=== PATIENT | female | born 1995 | race African-American/Black ===

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

== ENCOUNTER 2017-01-07 09:19 | Emergency (ER) | payer MEDICAID ==
[2017-01-07] MEDS ORDERED: OXYCODONE-ACETAMINOPHEN 5-325 MG TABLET PO ONE (09:42)
--- NOTE | 2017-01-07 10:25 | RADIOLOGY REPORT (SQ) ---
EXAM DESCRIPTION: CHEST PA/LAT COMPLETED DATE/TIME: 01/07/2017 10:12 am REASON FOR STUDY: cough/sob COMPARISON: 12/31/2016 EXAM PARAMETERS: NUMBER OF VIEWS: two views TECHNIQUE: Digital Frontal and Lateral radiographic views of the chest acquired. RADIATION DOSE: NA LIMITATIONS: none FINDINGS: LUNGS AND PLEURA: No opacities, masses or pneumothorax. No pleural effusion. MEDIASTINUM AND HILAR STRUCTURES: No masses or contour abnormalities. HEART AND VASCULAR STRUCTURES: Heart normal size. No evidence for failure. BONES: No acute findings. HARDWARE: None in the chest. OTHER: No other significant finding. IMPRESSION: NO SIGNIFICANT RADIOGRAPHIC FINDING IN THE CHEST. TECHNICAL DOCUMENTATION: JOB ID: [id number] [employer]- All Rights Reserved
[2017-01-07 10:35] LABS: APPEARANCE,URINE CLEAR; BILIRUBIN,URINE NEGATIVE (NEGATIVE); GLUCOSE, URINE NEGATIVE (NEGATIVE); KETONES,URINE NEGATIVE (NEGATIVE); LEUKOCYTE ESTERASE,URINE NEGATIVE (NEGATIVE); NITRITE,URINE NEGATIVE (NEGATIVE); PROTEIN,URINE NEGATIVE (NEGATIVE); URINE SPECIFIC GRAVITY 1.011
[2017-01-07] MEDS ORDERED: NORMAL SALINE 1000 ML 1,000 ML IV ONE (11:10)
[2017-01-07 11:42] LABS: HEMATOCRIT 28.9 % (36.0-47.0); HEMOGLOBIN 10.5 g/dL (12.0-15.5); HGB HCT DIFFERENCE 2.6; MEAN CORPUSCULAR HEMOGLOBIN 36.2 pg (27.0-33.4); MEAN CORPUSCULAR HGB CONC 36.2 g/dL (32.0-36.0); MEAN CORPUSCULAR VOLUME 100 fl (80-97); RED CELL DISTRIBUTION WIDTH 15.9 % (11.5-14.0); WHITE BLOOD COUNT 14.6 10^3/uL (4.0-10.5)
[2017-01-07 11:50] LABS: ALANINE AMINOTRANSFERASE 23 U/L (5-35); ALBUMIN 4.7 g/dL (3.7-5.6); ALKALINE PHOSPHATASE 84 U/L (50-135); ANION GAP 14 (5-19); ASPARTATE AMINO TRANSFERASE 30 U/L (5-30); BILIRUBIN,DIRECT 1.7 mg/dL (0.0-0.4); BILIRUBIN,TOTAL 8.8 mg/dL (0.2-1.3); BLOOD UREA NITROGEN 7 mg/dL (7-20); CALCIUM 9.6 mg/dL (8.4-10.2); CARBON DIOXIDE 23 mmol/L (22-30); CHLORIDE 110 mmol/L (98-107); CREATININE RESULT 0.59 mg/dL (0.52-1.25); GLUCOSE 91 mg/dL (75-110); POTASSIUM 3.8 mmol/L (3.6-5.0); SODIUM 146.7 mmol/L (137-145); TOTAL PROTEIN 8.2 g/dL (6.3-8.2)
[2017-01-07 12:05] LABS: BASOPHILS % (MANUAL) 0 % (0-2); EOSINOPHILS % (MANUAL) 4 % (0-6); LYMPHOCYTES % (MANUAL) 20 % (13-45); NUCLEATED RED BLOOD CELLS 7 /100 WBC (0); TOTAL CELLS COUNTED 100
[2017-01-07 12:11] LABS: ANISOCYTOSIS SLIGHT; POIKILOCYTOSIS 2+; POLYCHROMASIA 1+; SCHISTOCYTES 2+; TARGET CELLS 2+
--- NOTE | 2017-01-07 12:24 | ER Document Report ---
ED General - General Chief Complaint: Sickle Cell Crisis Stated Complaint: POSSIBLE SICKLE CELL CRISIS Time Seen by Provider: 01/07/17 09:41 Mode of Arrival: Ambulatory Information source: Patient Notes: Patient has a history of sickle cell disease and commonly gets chest pain from the sickle cell. She presents with substernal chest pain stating that it feels like her usual sickle cell pain. She states she is currently out of her pain medications. She states she has had some mild shortness of breath but that "it is not bad". No significant cough or cold symptoms. No fevers. No problems with urination. No significant vomiting or diarrhea. She states the pain is moderate and constant. It is sharp. It is worse with movement or deep breath and better with rest. It does not radiate. TRAVEL OUTSIDE OF THE [place] IN LAST 30 DAYS: No - Related Data Allergies/Adverse Reactions: No Known Drug Allergies Allergy (Verified 12/31/16 19:59) jacob peppers Adverse Reaction (Severe, Uncoded 12/31/16 19:59) throat closes Past Medical History - Social History Smoking Status: Current Every Day Smoker Frequency of alcohol use: None Drug Abuse: None Family History: Reviewed & Not Pertinent Pulmonary Medical History: Reports: Hx Pneumonia Renal/ Medical History: Denies: Hx Peritoneal Dialysis Psychiatric Medical History: Reports: Hx Anxiety, Hx Depression Past Surgical History: Reports: Hx Cholecystectomy - 06/28/2015 - Immunizations Immunizations up to date: Yes Hx Diphtheria, Pertussis, Tetanus Vaccination: Yes Review of Systems - Review of Systems Constitutional: denies: Chills, Fever Cardiovascular: Chest pain, Dyspnea Respiratory: Hurts to breathe, Short of breath -: Yes All other systems reviewed and negative Physical Exam - Vital signs Vitals: Temp Pulse Resp BP Pulse Ox 98.9 F 84 16 105/54 L 93 01/07/17 09:32 01/07/17 09:32 01/07/17 09:32 01/07/17 09:32 01/07/17 09:32 Interpretation: Normal - General General appearance: Appears well, Alert - HEENT Head: Normocephalic, Atraumatic Eyes: Normal Pupils: PERRL - Respiratory Respiratory status: No respiratory distress Chest status: Nontender Breath sounds: Normal Chest palpation: Normal - Cardiovascular Rhythm: Regular Heart sounds: Normal auscultation Murmur: No - Abdominal Inspection: Normal Distension: No distension Bowel sounds: Normal Tenderness: Nontender Organomegaly: No organomegaly - Back Back: Normal, Nontender - Extremities General upper extremity: Normal inspection, Nontender, Normal color, Normal ROM , Normal temperature General lower extremity: Normal inspection, Nontender, Normal color, Normal ROM , Normal temperature, Normal weight bearing. No: Glen's sign - Neurological Neuro grossly intact: Yes Cognition: Normal Orientation: AAOx4 [place] Coma Scale Eye Opening: Spontaneous [place] Coma Scale Verbal: Oriented Sina Coma Scale Motor: Obeys Commands Sina Coma Scale Total: 15 Speech: Normal Motor strength normal: LUE, RUE, LLE, RLE Sensory: Normal - Psychological Associated symptoms: Normal affect, Normal mood - Skin Skin Temperature: Warm Skin Moisture: Dry Skin Color: Normal Course - Vital Signs Vital signs: Temp Pulse Resp BP Pulse Ox 98.9 F 84 16 105/54 L 93 01/07/17 09:32 01/07/17 09:32 01/07/17 09:32 01/07/17 09:32 01/07/17 09:32 - Laboratory Result Diagrams: 01/07/17 11:08 01/07/17 11:08 Laboratory results interpreted by me: 01/07/17 01/07/17 01/07/17 09:50 11:08 11:08 WBC 14.6 H RBC 2.90 L Hgb 10.5 L Hct 28.9 L MCV 100 H MCH 36.2 H MCHC 36.2 H RDW 15.9 H Abs Neuts (Manual) 9.5 H Abs Monocytes (Manual) 1.6 H Sodium 146.7 H Chloride 110 H Total Bilirubin 8.8 H Direct Bilirubin 1.7 H Urine Urobilinogen 4.0 H - Diagnostic Test Radiology reviewed: Image reviewed, Reports reviewed - Chest x-ray shows no evidence of acute pathology. White blood cell count is mildly elevated however this is consistent with previous white blood cell count values on previous visits. Discharge - Discharge Clinical Impression: Sickle cell pain crisis Condition: Stable Disposition: HOME, SELF-CARE Instructions: Sickle Cell Crisis ([facility]) Additional Instructions: Please follow-up with your physician that manages your sickle cell as soon as possible. Prescriptions: Oxycodone HCl/Acetaminophen [Percocet 5-325 mg Tablet] 1 - 2 tab PO Q4H PRN #15 tablet PRN Reason:
[2017-01-07] MEDS ORDERED: MORPHINE SULFATE 10 MG/ML INJ IV ONE (12:33)
[2017-01-07] MEDS ORDERED: DIPHENHYDRAMINE HCL 25 MG CAPSULE PO ONE (12:48)
[2017-01-07 14:13] VITALS: BP 99/60
== END 2017-01-07 13:31 | disposition home or self-care (01) ==
LOC: ER 09:19
DX: D57.00 Hb-SS disease with crisis, unspecified (principal); R07.9 Chest pain, unspecified; R06.02 Shortness of breath; F17.200 Nicotine dependence, unspecified, uncomplicated
CPT/HCPCS: 99284; 96361; 96374; 36415; 85025; 81025; 80053; 81001; 71020; J3490; J2270; J7030

== ENCOUNTER 2017-01-21 05:21 | Day surgery (SDC) | payer MEDICAID ==
--- NOTE | 2017-01-20 09:20 | RADIOLOGY REPORT (SQ) ---
EXAM DESCRIPTION: CHEST PA/LATERAL COMPLETED DATE/TIME: 01/20/2017 9:08 am REASON FOR STUDY: PRE-OP COMPARISON: Chest 09/26/2016 Two-view chest 01/07/2017 EXAM PARAMETERS: NUMBER OF VIEWS: two views TECHNIQUE: Digital Frontal and Lateral radiographic views of the chest acquired. RADIATION DOSE: NA LIMITATIONS: none FINDINGS: LUNGS AND PLEURA: No opacities, masses or pneumothorax. No pleural effusion. MEDIASTINUM AND HILAR STRUCTURES: No masses or contour abnormalities. HEART AND VASCULAR STRUCTURES: Heart normal size. No evidence for failure. BONES: No acute findings. HARDWARE: Clips right upper quadrant post cholecystectomy. OTHER: No other significant finding. IMPRESSION: NO SIGNIFICANT RADIOGRAPHIC FINDING IN THE CHEST. TECHNICAL DOCUMENTATION: JOB ID: [id number] [employer]- All Rights Reserved
[2017-01-20 10:13] LABS: HEMATOCRIT 30.6 % (36.0-47.0); HEMOGLOBIN 11.1 g/dL (12.0-15.5); HGB HCT DIFFERENCE 2.7; MEAN CORPUSCULAR HEMOGLOBIN 37.4 pg (27.0-33.4); MEAN CORPUSCULAR HGB CONC 36.3 g/dL (32.0-36.0); MEAN CORPUSCULAR VOLUME 103 fl (80-97); RED BLOOD COUNT 2.98 10^6/uL (3.72-5.28); RED CELL DISTRIBUTION WIDTH 14.6 % (11.5-14.0); WHITE BLOOD COUNT 13.3 10^3/uL (4.0-10.5)
[2017-01-20 10:40] LABS: ANION GAP 13 (5-19); BLOOD UREA NITROGEN 8 mg/dL (7-20); CARBON DIOXIDE 23 mmol/L (22-30); CHLORIDE 108 mmol/L (98-107); CREATININE RESULT 0.55 mg/dL (0.52-1.25); GLUCOSE 78 mg/dL (75-110); POTASSIUM 4.5 mmol/L (3.6-5.0); SODIUM 144.3 mmol/L (137-145)
[~2017-01-21 05:21] MED LIST: CEFAZOLIN 1 GM/D5W RTU 1 GM/50 ML RTUPB IV PRN; LACTATED RINGERS 1000 ML IV PRN; LIDOCAINE 0.5% INJ-PF (5 MG/ML) 50 ML SDV SUBCUT PRN
[2017-01-21] MEDS ORDERED: BUPIVACAINE HCL 0.25 % INJ/PF (2.5 MG/1 ML) 30 ML VIAL ONE (06:45)
[2017-01-21] MEDS ORDERED: BACITRACIN INJ 50,000 UNIT VIAL ONE (06:46)
[2017-01-21] MEDS ORDERED: LIDOCAINE 0.5% INJ-PF (5 MG/ML) 50 ML SDV ONE (06:46)
[2017-01-21] MEDS ORDERED: OXYCODONE-ACETAMINOPHEN 5-325 MG TABLET PO PRN ×2 (08:34)
[2017-01-21] MEDS ORDERED: FENTANYL CITRATE INJ/PF 100 MCG/2 ML AMPUL IV PRN ×3 (08:34)
[2017-01-21] MEDS ORDERED: PROMETHAZINE HCL INJ 25 MG/1 ML VIAL IV PRN ×2 (08:34)
[2017-01-21] MEDS ORDERED: DIPHENHYDRAMINE HCL 50 MG/ML VIAL IV PRN (08:34)
[2017-01-21] MEDS ORDERED: MEPERIDINE HCL/PF INJ 25 MG/1 ML DISP.SYRIN IV PRN (08:34)
[2017-01-21] MEDS ORDERED: FENTANYL CITRATE INJ/PF 100 MCG/2 ML AMPUL ONE (09:09)
[2017-01-21 10:43] VITALS: BP 104/57
--- NOTE | 2017-01-21 11:11 | PDOC DISCHARGE SUMMARY ---
Discharge Summary (SDC) - Discharge Final Diagnosis: #1 sickle cell disease with frequent crisis Date of Surgery: 01/21/17 Discharge Date: 01/21/17 Condition: Fair Forms: ASU Anesthesia D/C Instruction, Discharge POC-Surgical Service Treatment or Instructions: Return to physician as directed. Discharge home [after recovery per ASU criteria]. Diet ,as tolerated, when fully awake advance as tolerated. Activities within moderation encouraged. Follow up in my office by appointment in about [1 week]. Call for appointment. Leave wounds [covered], [keep clean and dry, until office visit in 1 week]. Hold of on school/work [until evaluation in office]. Meds per med rec. May shower [in 48 hrs], [try to keep operated area as dry as possible]. Prescriptions: Oxycodone HCl/Acetaminophen [Percocet 5-325 mg Tablet] 1 tab PO ASDIR PRN #15 tab PRN Reason: Referrals: KIMBER SHIRLEY MD [ACTIVE STAFF] - 01/29/17 8:15 am Discharge Diet: As Tolerated Respiratory Treatments at Home: Deep Breathing/Coughing Discharge Activity: Activity As Tolerated Home Care Assistance: None Needed Report the Following to Your Physician Immediately: Shortness of Breath, Nausea , Vomiting, Increase in Pain, Fever over 101 Degrees, Unusual Bleeding, Redness , Swelling, Warmth
--- NOTE | 2017-01-21 11:19 | Operative Report ---
Operative Report DATE OF SURGERY: 01/21/17 PREOPERATIVE DIAGNOSIS: Sickle cell disease with frequent crisis. POSTOPERATIVE DIAGNOSIS: Sickle cell disease with frequent crisis. Post insertion of Port-A-Cath. OPERATION: 1. Ultrasound evaluation of the right internal jugular vein. 2. Insertion of single-lumen Port-A-Cath via real-time ultrasound guidance in the right internal jugular vein. 3. Angiogram and interpretation. SURGEON: KIMBER SHAH RADIATION ONCOLOGY NURSE: JEANA FERNANDO ANESTHESIA: LMAC TISSUE REMOVED OR ALTERED: Not applicable. COMPLICATIONS: None ESTIMATED BLOOD LOSS: 5 mL. INTRAOPERATIVE FINDINGS: Of a satisfactory right internal jugular vein to support catheter. About 1.2 cm in diameter. Angiogram demonstrated smooth flow of contrast through the right atrium, ventricle and pulmonary outflow tract. PROCEDURE: After obtaining informed consent, the patient was taken to the [operating room] and positioned supine. The [right] neck and chest were prepared with chlorhexidine and draped out with sterile linen. After the " universal timeout ", in which it was verified that the patient continued to receive antibiotic, the procedure commenced. A steriley sheathed ultrasound probe was used to evaluate the [right] internal jugular vein. Local anesthesia was infiltrated adjacent to the probe. Access into the [right] internal jugular vein was obtained using a micropuncture needle, followed by micropuncture wire and then a micropuncture catheter. This was followed by introduction of a 0.035 guidewire the tip of which was placed down into the inferior vena cava . The port sites was marked , locally anesthetized and incision made. Dissection now proceeded to the deep subcutaneous subcutaneous tissues so that a pocket for the port was made. Meticulous hemostasis was secured and the catheter was tunneled between the 2 incisions. Proximally, the catheter was now positioned using a peel-away sheath. Distally the catheter was tailored to an appropriate length and then mated to the port using the contained fixating device. The port was now placed in the pocket and the catheter optimally positioned. The port was accessed with a Borden needle and an angiogram done under digital subtraction. The findings as dictated. With adequate and satisfactory positioning, both lumens of the chamber were irrigated with heparinized solution. The wounds were now closed using interrupted 3-0 PDS to the subcutaneous tissues and a continuous subcuticular suture of 4-0 Monocryl to the skin. These are reinforced with Steri-Strips over benzoin and then dressings applied. The first calender worker provided retraction, thus facilitating the operative view. Controlled bleeding. The first calender worker also followed the suturing, thus facilitating accurate suture placement. Sutured skin and applied dressings. Copies of the dictated operative report for Dr. Kimber Lange MD.
--- NOTE | 2017-01-21 11:32 | RADIOLOGY REPORT (SQ) ---
EXAM DESCRIPTION: FLUORO/CV PLACEMENT COMPLETED DATE/TIME: 01/21/2017 9:17 am REASON FOR STUDY: PORTACATH PLCMT RT SIDE ASSISTED WITH FLUORO IN OR D57.1 SICKLE-CELL DISEASE WITH OUT CRISIS COMPARISON: Two-view chest 01/20/2017 FLUOROSCOPY TIME: 1 minutes 8 digital radiographic images saved to PACS. TECHNIQUE: Intra-operative images acquired during surgical procedure to evaluate progress. NUMBER OF IMAGES: Cine fluoroscopic images. LIMITATIONS: None. FINDINGS: Intra procedural imaging and fluoro during placement of a right-sided permanent central li ne with the tip in the superior vena cava. Please see the operative report IMPRESSION: Intra procedural imaging and fluoro COMMENT: Quality ID [id number]: Final reports for procedures using fluoroscopy that document radiation exp osure indices, or exposure time and number of fluorographic images (if radiation exposure indices are not available) Please consult full operative report of the attending physician for description of the procedure. TECHNICAL DOCUMENTATION: JOB ID: [id number] [employer]- All Rights Reserved
== END 2017-01-21 10:40 | disposition home or self-care (01) ==
LOC: OROUT 05:21
PROVIDERS: ATTEND Surgery
PROC: 05HM33Z Insertion of Infusion Device into Right Internal Jugular Vein, Percutaneous Approach (ICD-10-PCS; principal; 2017-01-21 07:30)
DX: D57.00 Hb-SS disease with crisis, unspecified (principal); F17.210 Nicotine dependence, cigarettes, uncomplicated; Z79.899 Other long term (current) drug therapy; Z88.5 Allergy status to narcotic agent
CPT/HCPCS: 36561; 36415; 85027; 81025; 80048; 71020; 77001; C1752; C1788; Q9967; J3490 ×2; J0690; J3010; S0020; J1642; 532

== ENCOUNTER 2017-01-26 19:33 | Emergency (ER) | payer MEDICAID ==
[2017-01-26] MEDS ORDERED: OXYCODONE HCL IR 5 MG TABLET PO ONE (20:08)
--- NOTE | 2017-01-26 20:16 | ER Document Report ---
ED Neck/Back Problem - General Chief Complaint: Neck Pain < 24hrs old Stated Complaint: NECK PAIN Time Seen by Provider: 01/26/17 19:56 Mode of Arrival: Ambulatory Information source: Patient Notes: Patient presents complaining of right-sided neck pain for the past 2 days. Patient states that she recently had a Port-A-Cath placed to her right anterior chest area 5 days ago. Patient denies any trauma to the area. Patient does complain of swelling with tenderness to the right lower neck area. Patient denies any fever. She denies any chest pain or dyspnea. Patient states she does take pain medication for pain due to her sickle cell disease although recently lost a bottle of her pain medicine and has not had any pain medicine for the past 2 days. TRAVEL OUTSIDE OF THE [place] IN LAST 30 DAYS: No - HPI Patient complains to provider of: Pain, Neck Onset: Other - 2 days Onset: Gradual Timing: Still present Quality of pain: Achy Pain Level: 4 Recent injury: No Associated symptoms: denies: Chest pain, Chills, Fever Exacerbated by: Movement of neck Relieved by: Nothing Similar symptoms previously: No Recently seen / treated by doctor: Yes - Related Data Allergies/Adverse Reactions: morphine Adverse Reaction (Severe, Verified 01/16/17 09:48) RASH,SWELLING jacob peppers Adverse Reaction (Severe, Uncoded 12/31/16 19:59) throat closes Past Medical History - General Information source: Patient - Social History Smoking Status: Current Every Day Smoker Frequency of alcohol use: None Drug Abuse: None Occupation: none Lives with: Family Family History: Reviewed & Not Pertinent Patient has suicidal ideation: No Patient has homicidal ideation: No - Medical History Medical History: Other - Sickle cell disease - Past Medical History Cardiac Medical History: Denies: Hx Coronary Artery Disease, Hx Heart Attack, Hx Hypertension Pulmonary Medical History: Reports: Hx Pneumonia Denies: Hx Asthma, Hx Bronchitis, Hx COPD Neurological Medical History: Denies: Hx Cerebrovascular Accident, Hx Seizures Renal/ Medical History: Denies: Hx Peritoneal Dialysis Musculoskeltal Medical History: Denies Hx Arthritis Psychiatric Medical History: Reports: Hx Anxiety, Hx Depression Past Surgical History: Reports: Hx Cholecystectomy - 06/28/2015, Hx Vascular Surgery - Immunizations Immunizations up to date: Yes Hx Diphtheria, Pertussis, Tetanus Vaccination: Yes Review of Systems - Review of Systems Constitutional: No symptoms reported. denies: Fever EENT: No symptoms reported Cardiovascular: No symptoms reported. denies: Chest pain, Lightheaded Respiratory: No symptoms reported. denies: Cough, Short of breath Gastrointestinal: No symptoms reported Genitourinary: No symptoms reported Female Genitourinary: No symptoms reported Musculoskeletal: Neck pain Skin: No symptoms reported Hematologic/Lymphatic: No symptoms reported Neurological/Psychological: No symptoms reported Physical Exam - Vital signs Vitals: Temp Pulse Resp BP Pulse Ox 98.7 F 107 H 16 122/68 97 01/26/17 19:36 01/26/17 19:36 01/26/17 19:36 01/26/17 19:36 01/26/17 19:36 - General General appearance: Appears well, Alert In distress: None - HEENT Head: Normocephalic, Atraumatic Eyes: Normal Nasal: Normal Mouth/Lips: Normal Mucous membranes: Normal Pharynx: Normal. No: Exudate, Tonsillar hypertrophy, Uvular edema Neck: Other - Tenderness, swelling right lower neck, right supraclavicular area just superior of incisional site Steri-Strips. No: Lymphadenopathy - Respiratory Respiratory status: No respiratory distress Chest status: Nontender Breath sounds: Normal. No: Rales, Rhonchi, Stridor, Wheezing Chest palpation: Normal - Cardiovascular Rhythm: Tachycardia Heart sounds: S1 appreciated, S2 appreciated Murmur: No Pulses: Normal: Radial - Back Back: Normal, Nontender. No: CVA tenderness - Extremities General upper extremity: Normal inspection, Normal ROM General lower extremity: Normal inspection, Normal ROM - Neurological Neuro grossly intact: Yes Cognition: Normal Orientation: AAOx4 [place] Coma Scale Eye Opening: Spontaneous Sina Coma Scale Verbal: Oriented [place] Coma Scale Motor: Obeys Commands Sina Coma Scale Total: 15 - Psychological Associated symptoms: Normal affect, Normal mood - Skin Skin Temperature: Warm Skin Moisture: Dry Skin Color: Normal Course - Re-evaluation Re-evalutation: 01/26/17 20:[address] Isaac who advises u/s of neck and consultation with dr Shirley 01/26/17 20:14 Review of controlled substance database performed 01/27/17 00:40 Doppler study performed, call was placed to concrete boom pump operator for consultation with Dr. Shirley. Ultrasound Tester to attempt to contact Dr Shirley. 01/27/17 01:06 Dr Montesinos to bedside for examination, discussed preliminary report from doppler tech. Dr Montesinos advises placing pt on lovenox twice a day for 3 days and having pt f/u with dr Agarwal tomorrow for a recheck. 01/27/17 01:16 Dr Montesinos called after viewing pt's doppler study. Advises placing pt on lovenox twice a day with a prescription for dosing for tomorrow. Advises having pt f/u with dr agarwal and dr shirley tomorrow for further management. consulted with dr isaac who agrees with this plan of care. Controlled substance database was reviewed. Dr. Isaac does not advise discharging patient home on any narcotic medications at this time. 01/27/17 01:37 Attempted to obtain a baseline Hemoccult test, patient refused. Discussed reasoning for ordering the test and risks of the anticoagulation medication that is been recommended. Patient insistent that she does not have any history of rectal bleeding or dark colored stools and does not want a digital rectal exam performed. RN at bedside during this conversation. Patient agrees to sign refusal of treatment form. - Vital Signs Vital signs: Temp Pulse Resp BP Pulse Ox 98.7 F 107 H 16 122/68 97 01/26/17 19:36 01/26/17 19:36 01/26/17 19:36 01/26/17 19:36 01/26/17 19:36 - Laboratory Result Diagrams: 01/27/17 00:15 01/27/17 00:15 Laboratory results interpreted by me: 01/27/17 01/27/17 00:15 00:15 WBC 17.3 H RBC 2.67 L Hgb 9.8 L Hct 27.0 L MCV 101 H MCH 36.8 H MCHC 36.3 H RDW 14.7 H Absolute Neutrophils 11.6 H Absolute Monocytes 1.7 H Absolute Basophils 0.3 H Potassium 3.5 L BUN 6 L Glucose 112 H Total Bilirubin 5.2 H Direct Bilirubin 0.8 H ALT 39 H Labs- Entire Visit 01/27/17 01/27/17 01/27/17 00:15 00:15 00:15 WBC 17.3 H RBC 2.67 L Hgb 9.8 L Hct 27.0 L MCV 101 H MCH 36.8 H MCHC 36.3 H RDW 14.7 H Plt Count 440 Seg Neutrophils % 66.9 Lymphocytes % 18.4 Monocytes % 9.8 Eosinophils % 3.3 Basophils % 1.6 Absolute Neutrophils 11.6 H Absolute Lymphocytes 3.2 Absolute Monocytes 1.7 H Absolute Eosinophils 0.6 Absolute Basophils 0.3 H PT 13.6 INR 0.97 APTT 34.6 Sodium 143.5 Potassium 3.5 L Chloride 105 Carbon Dioxide 23 Anion Gap 16 BUN 6 L Creatinine 0.52 Est GFR ( Amer) > 60 Est GFR (Non-Af Amer) > 60 Glucose 112 H Calcium 9.7 Total Bilirubin 5.2 H Direct Bilirubin 0.8 H Indirect Bilirubin Not Reportable Neonat Total Bilirubin Not Reportable AST 30 ALT 39 H Alkaline Phosphatase 71 Total Protein 8.1 Albumin 4.7 Discharge - Discharge Clinical Impression: Internal jugular (IJ) vein thromboembolism, acute Qualifiers: Laterality: right Qualified Code(s): I82.C11 - Acute embolism and thrombosis of right internal jugular vein Condition: Stable Disposition: HOME, SELF-CARE Additional Instructions: Return immediately for any new or worsening symptoms Followup with Dr. Agarwal tomorrow for further evaluation as he will need to be prescribe you a different medication to manage your clot in your neck vein. Follow up with Dr Shirley, call his office tomorrow for an appointment Prescriptions: Enoxaparin Sodium [Lovenox Inj 60 Mg/0.6 Ml Disp.Syrin] 60 mg SUBCUT Q12 #2 disp.syrin Referrals: JOIE AGARWAL MD [Primary Care Provider] - Follow up tomorrow KIMBER SHIRLEY MD [ACTIVE STAFF] - Follow up tomorrow
[2017-01-27 00:30] LABS: PROTHROMBIN TIME 13.6 SEC (11.4-15.4)
[2017-01-27 00:31] LABS: PARTIAL THROMBOPLASTIN TIME 34.6 SEC (23.5-35.8)
[2017-01-27 00:37] LABS: ABSOLUTE BASOPHILS # (AUTO) 0.3 10^3/uL (0.0-0.2); ABSOLUTE EOSINOPHILS # (AUTO) 0.6 10^3/uL (0.0-0.6); ABSOLUTE LYMPHOCYTES (AUTO) 3.2 10^3/uL (0.5-4.7); ABSOLUTE MONOCYTES (AUTO) 1.7 10^3/uL (0.1-1.4); ABSOLUTE NEUT (AUTO) 11.6 10^3/uL (1.7-8.2); BASOPHILS % (AUTO) 1.6 % (0-2); EOSINOPHILS % (AUTO) 3.3 % (0-6); HEMOGLOBIN 9.8 g/dL (12.0-15.5); HGB HCT DIFFERENCE 2.4; LYMPHOCYTES % (AUTO) 18.4 % (13-45); MEAN CORPUSCULAR HEMOGLOBIN 36.8 pg (27.0-33.4); MEAN CORPUSCULAR HGB CONC 36.3 g/dL (32.0-36.0); MEAN CORPUSCULAR VOLUME 101 fl (80-97); MONOCYTES % (AUTO) 9.8 % (3-13); RED BLOOD COUNT 2.67 10^6/uL (3.72-5.28); RED CELL DISTRIBUTION WIDTH 14.7 % (11.5-14.0); SEGMENTED NEUTROPHILS % (AUTO) 66.9 % (42-78); WHITE BLOOD COUNT 17.3 10^3/uL (4.0-10.5)
[2017-01-27 00:40] LABS: BLOOD UREA NITROGEN 6 mg/dL (7-20); CALCIUM 9.7 mg/dL (8.4-10.2); CREATININE RESULT 0.52 mg/dL (0.52-1.25); GLUCOSE 112 mg/dL (75-110)
[2017-01-27 00:41] LABS: ALANINE AMINOTRANSFERASE 39 U/L (5-35); ALBUMIN 4.7 g/dL (3.7-5.6); ALKALINE PHOSPHATASE 71 U/L (50-135); ANION GAP 16 (5-19); ASPARTATE AMINO TRANSFERASE 30 U/L (5-30); BILIRUBIN,DIRECT 0.8 mg/dL (0.0-0.4); BILIRUBIN,TOTAL 5.2 mg/dL (0.2-1.3); CARBON DIOXIDE 23 mmol/L (22-30); CHLORIDE 105 mmol/L (98-107); POTASSIUM 3.5 mmol/L (3.6-5.0); SODIUM 143.5 mmol/L (137-145); TOTAL PROTEIN 8.1 g/dL (6.3-8.2)
[2017-01-27] MEDS ORDERED: ENOXAPARIN SODIUM INJ 60 MG/0.6 ML DISP.SYRIN SUBCUT SCH (01:15)
[2017-01-27] MEDS ORDERED: ENOXAPARIN SODIUM INJ 60 MG/0.6 ML DISP.SYRIN SUBCUT ONE (01:33)
[2017-01-27 01:59] VITALS: BP 107/54
--- NOTE | 2017-01-27 02:17 | CONSULTATION REPORT E ---
Consultation Report NAME: CASSANDRA MIDDLETON : 1995 AGE: 21Y DATE: 01/27/2017 TO: WAYNE MONTESINOS M.D. FROM: Vitaly TENA, Requesting physician, Bree Schilling REPORT OF CONSULTATION: Patient is a 21-year-old -[place] female, with history of sickle cell anemia, 6 days status post right internal jugular vein single lumen Infusaport catheter placement by Dr. Humberto Lange. The patient had the procedure as an outpatient, with uneventful immediate postoperative course. The patient presents to the emergency department this evening complaining of right neck pain and fullness. She was evaluated in the emergency department where she underwent a duplex venous study at approximately 9:30 on 01/26/2017, which showed, according to the tech, a clot in the right internal jugular vein. The emergency department staff was awaiting formal interpretation. Dr. Montesinos happened to be in the emergency department evaluating another patient, and this situation was brought to his attention. The patient was evaluated by Dr. Montesinos, and she was confirmed to have the findings as described above. A complete past medical and surgical history can be found in the History and Physical documented. PHYSICAL EXAM: GENERAL: Patient is in the emergency department. She is in no acute distress. VITAL SIGNS: Stable. NECK AND CHEST: Wall examined. Steri-Strips are in place in the right internal jugular vein catheter insertion site and in the right subclavian site. Single chamber port is in appropriate position. There is some tenderness along the course of the right internal jugular vein but no carter cellulitis or palpable cord that can be appreciated. The right upper extremity is grossly unremarkable. Remainder of the physical examination is unremarkable. IMAGING STUDIES: Independent interpretation of 3 views of the right internal jugular vein, both longitudinally and in cross-section demonstrate what appears to be space occupying density in the lumina of the right internal jugular vein, nearly complete, consistent with acute thrombus. IMPRESSION: Ultrasonographic findings highly suggestive of acute thrombus right internal jugular vein in recently placed right internal jugular vein single lumen Infusaport catheter in sickle cell patient. RECOMMENDATIONS: 1. I have discussed management strategies with the PA in the emergency department, as well as with the patient briefly. 2. At this hour, given her symptoms and ultrasonographic findings, I suggest we proceed with anticoagulation, starting with Lovenox 1 mg/kg subcutaneous b.i.d. for 3 days, and plan to start her on a Xa inhibitor of choice tomorrow. 3. We will set patient up with follow-up with Dr. Humberto Lange, Vascular Surgery who inserted the port-a-cath and/or Dr. Baum, patient's oncologist. DICTATING PHYSICIAN: WAYNE MONTESINOS M.D. [id number] [id number] ID: [id number] JOB#: [id number] ACCT: [id number] cc:WAYNE MONTESINOS M.D. > MTDD
--- NOTE | 2017-01-27 08:04 | XCELERA REPORT ---
[address] [address] Upper Extremity Venous Evaluation Name: CASSANDRA MIDDLETON Age: 21 yrs Gender: Female : 1995 Patient Status: Emergency Patient Location: ER Study Date: 01/26/2017 10:42 PM Procedure: Unilateral duplex scan of the right upper extremity veins was performed, including responses to compression and other maneuvers. Reason For Study: supraclav swelling after port insertion RUE Ordering Physician: CASSIUS MANTILLA Performed By: Elaina Rocha Right Side Venous Evaluation Abnormal vessel filling, non compressible without augmentation, no Colour flow in the Internal Jugular vein. Otherwise normal to the forearm veins. Interpretation Summary Positive for DVT in the Internal Jugular vein. : CASSIUS MANTILLA > Humberto Lange
== END 2017-01-27 01:59 | disposition home or self-care (01) ==
LOC: ER 19:33
DX: I82.C11 Acute embolism and thrombosis of right internal jugular vein (principal); M54.2 Cervicalgia; D57.1 Sickle-cell disease without crisis; Z98.890 Other specified postprocedural states; F17.200 Nicotine dependence, unspecified, uncomplicated
CPT/HCPCS: 99284; 96372; 36415; 85025; 85610; 85730; 80053; 93971 ×2; J1650; J3490

== ENCOUNTER 2017-02-18 22:33 | Emergency (ER) | payer MEDICAID ==
[2017-02-18] MEDS ORDERED: NORMAL SALINE 1000 ML 1,000 ML IV ONE (23:35)
[2017-02-18] MEDS ORDERED: HYDROMORPHONE HCL INJ/PF 2 MG/ML AMPULE IV ONE (23:35)
--- NOTE | 2017-02-18 23:55 | ER Document Report ---
ED General - General Chief Complaint: Back Pain Stated Complaint: BACK PAIN,CHEST PAIN Time Seen by Provider: 02/18/17 23:30 Notes: Patient is a 22-year-old female with a history of sickle cell disease. She presents with complaint of her her lower back. She says this is very typical of her sickle cell disease. She says she took Motrin at home. She is out of her oxycodone. She denies any fevers. No vomiting. She is followed by Dr. Riya pollard. No difficulty breathing. No chest pain. No abdominal pain. She does have previous history of acute chest syndrome. Said this has occurred once. She has had a cholecystectomy. She still has her spleen. No other complaints at this time. No trauma. TRAVEL OUTSIDE OF THE [place] IN LAST 30 DAYS: No - Related Data Allergies/Adverse Reactions: morphine Adverse Reaction (Severe, Verified 02/03/17 19:02) RASH,SWELLING jacob peppers Adverse Reaction (Severe, Uncoded 01/31/17 13:58) throat closes Past Medical History - Social History Smoking Status: Never Smoker Frequency of alcohol use: None Drug Abuse: None Family History: Other - scd Patient has suicidal ideation: No Patient has homicidal ideation: No - Past Medical History Cardiac Medical History: Denies: Hx Coronary Artery Disease, Hx Heart Attack, Hx Hypertension Pulmonary Medical History: Reports: Hx Pneumonia Denies: Hx Asthma, Hx Bronchitis, Hx COPD Neurological Medical History: Denies: Hx Cerebrovascular Accident, Hx Seizures Renal/ Medical History: Denies: Hx Peritoneal Dialysis Musculoskeltal Medical History: Denies Hx Arthritis Psychiatric Medical History: Reports: Hx Anxiety, Hx Depression Past Surgical History: Reports: Hx Cholecystectomy - 06/28/2015, Hx Vascular Surgery - port - Immunizations Immunizations up to date: Yes Hx Diphtheria, Pertussis, Tetanus Vaccination: Yes Review of Systems - Review of Systems Notes: My Normal Review Basic REVIEW OF SYSTEMS: CONSTITUTIONAL : Denies fever, chills, or sweats. Denies recent illness. EENT: Denies eye, ear, throat, or mouth pain or symptoms. Denies nasal or sinus congestion. CARDIOVASCULAR: Denies chest pain. RESPIRATORY: Denies cough, cold, or chest congestion. Denies shortness of breath, difficulty breathing, or wheezing. GASTROINTESTINAL: Denies abdominal pain. Denies nausea, vomiting, or diarrhea. Denies constipation. Last BM: GENITOURINARY: Denies difficulty urinating, painful urination, burning, frequency, or blood in urine. FEMALE GENITOURINARY: Denies vaginal bleeding, abnormal or irregular periods. LMP: MUSCULOSKELETAL: Low back pain SKIN: Denies rash or skin lesions. NEUROLOGICAL: Denies altered mental status or loss of consciousness. Denies headache. Denies weakness or paralysis or loss of use of either side. Denies problems with gait or speech. Denies sensory or motor loss. ALL OTHER SYSTEMS REVIEWED AND NEGATIVE. Physical Exam - Vital signs Vitals: Temp Pulse Resp BP Pulse Ox 98.9 F 71 16 93/52 L 97 02/18/17 23:11 02/18/17 23:11 02/18/17 23:11 02/18/17 23:11 02/18/17 23:11 - Notes Notes: General Appearance: Well nourished, alert, cooperative, no acute distress, no obvious discomfort. Vitals: reviewed, See vital signs table. Head: no swelling or tenderness to the head Eyes: PERRL, EOMI, Conjuctiva clear Mouth: No decreasd moisture Throat: No tonsillar inflammation, No airway obstruction, No lymphadenopathy Lungs: No wheezing, No rales, No rhonci, No accessory muscle use, good air exchange bilaterally. Heart: Normal rate, Regular rythm, No murmur, no rub Back: Some pain to palpation over the lower back mainly on the right side. Abdomen: Normal BS, soft, No rigidity, No abdominal tenderness, No guarding, no rebound Extremities: strength 5/5 in all extremities, good pulses in all extremities, no swelling or tenderness in the extremities, no edema. Skin: warm, dry, appropriate color, no rash Neuro: speech clear, oriented x 3, normal affect, responds appropriately to questions. Course - Re-evaluation Re-evalutation: 02/19/17 03:46 Patient says her pain is much improved. She looks well. Her vital signs are normal. She has no fevers. She has no signs of acute chest syndrome. Pain is only in her back. Urinalysis negative. Her hemoglobin is at her baseline. Her reticulocyte count is elevated as suspected. Her white blood cell count is at her normal chronic range. At this time I feel she is safe to be discharged home. Encouraged her return to ER medially if she has worsening pain, difficulty breathing, fevers, or she feels unwell. She is to follow-up with Dr. Baum. Patient agrees with plan will be discharged home. Dictation of this chart was performed using voice recognition software; therefore, there may be some unintended grammatical errors. - Vital Signs Vital signs: Temp Pulse Resp BP Pulse Ox 98.9 F 71 16 93/52 L 97 02/18/17 23:11 02/18/17 23:11 02/18/17 23:11 02/18/17 23:11 02/18/17 23:11 - Laboratory Result Diagrams: 02/19/17 00:00 02/19/17 00:00 Laboratory results interpreted by me: 02/19/17 02/19/17 00:00 00:00 WBC 17.5 H RBC 2.67 L Hgb 9.6 L Hct 26.0 L MCH 35.9 H MCHC 36.9 H RDW 15.4 H Eosinophils % (Manual) 8 H Abs Neuts (Manual) 10.2 H Abs Lymphs (Manual) 5.1 H Absolute Eos (Manual) 1.4 H Abs Basophils (Manual) 0.4 H Retic Count (auto) 6.93 H Absolute Retic 0.187 H Total Bilirubin 4.2 H Direct Bilirubin 1.0 H Discharge - Discharge Clinical Impression: Sickle cell crisis Condition: Good Disposition: HOME, SELF-CARE Additional Instructions: Sickle Cell Crisis You have "sickle cell crisis." Sickle cell disease is caused by abnormal hemoglobin. This hemoglobin can deform red blood cells into a sickle shape. These abnormal blood cells can block blood vessels. This causes the pain of sickle cell crisis. Sickle cell crisis can occur any time. But attacks are more likely with acute infection, dehydration, or altitude change. A crisis usually causes pain in the legs, back, abdomen, and chest. Sometimes the pain may ease and return later. The usual treatment is oxygen, pain medication, IV fluids, and treatment of infection. Attacks may take a couple of days to resolve. Return if the pain becomes more severe, or if there are new symptoms. His follow-up with Dr. Salas this week. Please call his office. Return to the ER if you have worsening pain, fevers, difficulty breathing, or feel unwell. Forms: Return to Work
[2017-02-19 00:29] LABS: HEMOGLOBIN 9.6 g/dL (12.0-15.5); HGB HCT DIFFERENCE 2.8; MEAN CORPUSCULAR HEMOGLOBIN 35.9 pg (27.0-33.4); MEAN CORPUSCULAR HGB CONC 36.9 g/dL (32.0-36.0); MEAN CORPUSCULAR VOLUME 97 fl (80-97); RED BLOOD COUNT 2.67 10^6/uL (3.72-5.28); RED CELL DISTRIBUTION WIDTH 15.4 % (11.5-14.0); WHITE BLOOD COUNT 17.5 10^3/uL (4.0-10.5)
[2017-02-19 00:36] LABS: ALBUMIN 4.2 g/dL (3.5-5.0); ANION GAP 13 (5-19); BLOOD UREA NITROGEN 9 mg/dL (7-20); CARBON DIOXIDE 24 mmol/L (22-30); CHLORIDE 107 mmol/L (98-107); CREATININE RESULT 0.59 mg/dL (0.52-1.25); GLUCOSE 90 mg/dL (75-110); POTASSIUM 3.7 mmol/L (3.6-5.0); SODIUM 144.4 mmol/L (137-145); TOTAL PROTEIN 7.3 g/dL (6.3-8.2)
[2017-02-19 00:47] LABS: ALANINE AMINOTRANSFERASE 28 U/L (9-52); ALKALINE PHOSPHATASE 65 U/L (38-126); ASPARTATE AMINO TRANSFERASE 23 U/L (14-36); BILIRUBIN,TOTAL 4.2 mg/dL (0.2-1.3); CALCIUM 9.3 mg/dL (8.4-10.2)
[2017-02-19 00:55] LABS: ANISOCYTOSIS SLIGHT; BASOPHILS % (MANUAL) 2 % (0-2); EOSINOPHILS % (MANUAL) 8 % (0-6); LYMPHOCYTES % (MANUAL) 29 % (13-45); NUCLEATED RED BLOOD CELLS 2 /100 WBC (0); POLYCHROMASIA 1+; TARGET CELLS 2+; TOTAL CELLS COUNTED 100; TOXIC VACUOLATION PRESENT
[2017-02-19 01:04] LABS: APPEARANCE,URINE CLEAR; BILIRUBIN,URINE NEGATIVE (NEGATIVE); GLUCOSE, URINE NEGATIVE (NEGATIVE); KETONES,URINE NEGATIVE (NEGATIVE); LEUKOCYTE ESTERASE,URINE NEGATIVE (NEGATIVE); NITRITE,URINE NEGATIVE (NEGATIVE); PROTEIN,URINE NEGATIVE (NEGATIVE); UROBILINOGEN,URINE NEGATIVE mg/dL (<2.0)
[2017-02-19] MEDS ORDERED: HYDROMORPHONE HCL INJ/PF 2 MG/ML AMPULE IV ONE (02:43)
[2017-02-19 04:23] VITALS: BP 97/59
== END 2017-02-19 04:23 | disposition home or self-care (01) ==
LOC: ER 22:33
DX: D57.00 Hb-SS disease with crisis, unspecified (principal); M54.9 Dorsalgia, unspecified; R07.9 Chest pain, unspecified; M54.5 Low back pain; Z90.49 Acquired absence of other specified parts of digestive tract
CPT/HCPCS: 36591; 96376; 99284; 96361; 96374; 36415; 85025; 81025; 85045; 80053; 81001; J1170; J7030

== ENCOUNTER 2017-02-21 07:17 | Emergency (ER) | payer MEDICAID ==
[2017-02-21] MEDS ORDERED: NORMAL SALINE 1000 ML 1,000 ML IV ONE ×2 (07:41→10:29)
[2017-02-21] MEDS ORDERED: HYDROMORPHONE HCL INJ/PF 2 MG/ML AMPULE IV ONE ×2 (07:42→10:28)
[2017-02-21] MEDS ORDERED: ONDANSETRON HCL INJ/PF 4 MG/2 ML SDV IV ONE (07:43)
--- NOTE | 2017-02-21 08:31 | ER Document Report ---
ED General - General Chief Complaint: Back Pain Stated Complaint: BACK PAIN Time Seen by Provider: 02/21/17 07:37 Mode of Arrival: Ambulatory Information source: Patient Notes: Patient is a 22-year-old black female comes to emergency room with complaint of back pain. Patient has sickle cell disease has been seen here multiple times over the past year for a sickle cell type crisis. Patient has different presentations each time that I could find but mostly low back pain is her primary area of discomfort. She states that the low back pain woke her up out of sleep this morning and she is in a 9 out of 10 type pain. She is states that she has been nauseated but has had no vomiting. TRAVEL OUTSIDE OF THE [place] IN LAST 30 DAYS: No - HPI Patient complains to provider of: Low back pain associated with sickle cell disease Onset: This morning Onset/Duration: Sudden, Worse Quality of pain: Sharp, Stabbing Pain Level: 4 Associated symptoms: Nausea Exacerbated by: Denies Relieved by: Denies Similar symptoms previously: Yes Recently seen / treated by doctor: Yes - Patient seen here in JanuaryJanuary 31 February 03 February 18 and toda - Related Data Allergies/Adverse Reactions: morphine Adverse Reaction (Severe, Verified 02/21/17 07:20) RASH,SWELLING jacob peppers Adverse Reaction (Severe, Uncoded 02/21/17 07:20) throat closes Home Medications: Current Home Medications Hydroxyurea [Hydroxyurea] 1 tab PO BID 02/21/17 [History] Past Medical History - General Information source: Patient - Social History Smoking Status: Current Every Day Smoker Cigarette use (# per day): Yes - 2-3 cigarettes per day Chew tobacco use (# tins/day): No Smoking Education Provided: Yes Frequency of alcohol use: Rare Drug Abuse: None Lives with: Family Family History: Reviewed & Not Pertinent, Other - Past Medical History Cardiac Medical History: Denies: Hx Coronary Artery Disease, Hx Heart Attack, Hx Hypertension Pulmonary Medical History: Reports: Hx Pneumonia Denies: Hx Asthma, Hx Bronchitis, Hx COPD Neurological Medical History: Denies: Hx Cerebrovascular Accident, Hx Seizures Renal/ Medical History: Denies: Hx Peritoneal Dialysis Musculoskeltal Medical History: Denies Hx Arthritis Psychiatric Medical History: Reports: Hx Anxiety, Hx Depression Past Surgical History: Reports: Hx Cholecystectomy - 06/28/2015, Hx Vascular Surgery - port - Immunizations Immunizations up to date: Yes Hx Diphtheria, Pertussis, Tetanus Vaccination: Yes Review of Systems - Review of Systems Constitutional: Weakness EENT: No symptoms reported Cardiovascular: No symptoms reported Respiratory: No symptoms reported Gastrointestinal: No symptoms reported Genitourinary: No symptoms reported Female Genitourinary: No symptoms reported Musculoskeletal: Back pain Skin: No symptoms reported Hematologic/Lymphatic: No symptoms reported Neurological/Psychological: No symptoms reported -: Yes All other systems reviewed and negative Physical Exam - Vital signs Vitals: Temp Pulse Resp BP Pulse Ox 98.4 F 102 H 18 111/54 L 99 02/21/17 07:23 02/21/17 07:23 02/21/17 07:23 02/21/17 07:23 02/21/17 07:23 Interpretation: Hypotensive, Tachycardic - General General appearance: Other - Obvious pain and discomfort. On entering the room patient is in position with tears in her eyes crying because of the pain. She indicates it is her low back is bothering her severely. Denies trauma. - HEENT Head: Atraumatic Sinus: Normal. No: Abnormal, Frontal, Mastoid, Maxillary, Redness, Swelling, Tenderness, Other Nasal: Normal Mouth/Lips: Normal Mucous membranes: Moist Pharynx: Normal. No: Blood in hypopharynx, Erythema, Exudate, Peritonsillar abscess, Post nasal drainage, Retropharyngeal abscess, Tonsillar hypertrophy, Uvular edema, Potential airway comprom., Other Neck: Normal - Respiratory Respiratory status: No respiratory distress Chest status: Nontender Breath sounds: Normal Chest palpation: Normal - Cardiovascular Rhythm: Tachycardia Heart sounds: Normal auscultation Murmur: No - Abdominal Inspection: Normal Distension: No distension Bowel sounds: Normal Tenderness: Nontender. No: Tender, McBurney's point, James's sign, Guarding, Rebound, Other Organomegaly: No organomegaly - Back Back: Tender, Other - Examination patient's low back area shows mild reproducible tenderness across the low back only. Patient has discomfort with movement at this time. Pain is constant and unrelenting. Patient has good DTRs in the lower extremities good vascular flow was measured by pulses distal dorsalis pedis is bilaterally are normal. Popliteal is +2 straight leg raises are bilaterally positive at about 25-30 at this time. - Extremities General upper extremity: Normal inspection General lower extremity: Normal inspection - Neurological Neuro grossly intact: Yes Cognition: Normal Orientation: AAOx4 [place] Coma Scale Eye Opening: Spontaneous [place] Coma Scale Verbal: Oriented [place] Coma Scale Motor: Obeys Commands [place] Coma Scale Total: 15 Speech: Normal - Skin Skin Temperature: Warm Skin Moisture: Dry Skin Color: Normal, [place] Course - Vital Signs Vital signs: Temp Pulse Resp BP Pulse Ox 98.0 F 89 18 105/64 100 02/21/17 12:04 02/21/17 12:04 02/21/17 12:04 02/21/17 12:04 02/21/17 12:04 - Laboratory Result Diagrams: 02/21/17 08:38 02/21/17 08:38 Laboratory results interpreted by me: 02/21/17 02/21/17 02/21/17 08:06 08:38 08:38 WBC 17.3 H RBC 2.70 L Hgb 9.5 L Hct 26.2 L MCH 35.3 H MCHC 36.4 H RDW 15.4 H Lymphocytes % (Manual) 11 L Eosinophils % (Manual) 8 H Abs Neuts (Manual) 13.5 H Absolute Eos (Manual) 1.4 H Retic Count (auto) 8.85 H Absolute Retic 0.239 H Chloride 109 H BUN 6 L Total Bilirubin 4.6 H Direct Bilirubin 0.7 H Urine Urobilinogen 2.0 H - Diagnostic Test Radiology reviewed: Reports reviewed - Transfer of Care Notes: 02/21/17 08:40 As stated patient has a history of sickle cell disease and has multiple times had sickle cell crisis. But most the time patient comes in for pain control and can be sent home with labs being mostly normal. She has a [facility] physician not sure of the name. They prescribed her Percocet 5 mg. Patient does state in our conversation that she needs to discuss her Percocet with her primary doctor secondary to the fact that I think she is kind of overusing because of the pain and discomfort. As stated this is her fourth presentation this month. Patient stay has been fairly extended and secondary to her discomfort and pain. Patient is gone through 2 L of fluid, 2 1 mg doses of Dilaudid IV and Zofran and Phenergan. I have discussed the case with Dr. Rouse and he agrees that if patient's pain level is down we can attempt to send her home. If she continues to have pain we could placed her an admission. I have been back again to reevaluate patient and is currently 12:28 p.m. and patient states she is feeling 75% better and would like to try going home rather than being admitted. Patient is upfront tells me she is out of her oral pain medications I will write her for some pain medication she tells me she is taking Percocet 5 mg but she is having to take double sometimes secondary to the pain so I am going to increase this to 7.5. She is not under a "contract" however she is being very careful about what she can and cannot do. So at this time patient is stable she has decreased pain she has had no shortness of breath no more vomiting and no other signs of cardiac problems. She also has no neurologic signs. So we are going to discharge her home. 02/21/17 12:26 Discharge - Discharge Clinical Impression: Sickle cell anemia without crisis Back pain Qualifiers: Back pain location: low back pain Chronicity: acute Back pain laterality: midline Sciatica presence: without sciatica Qualified Code(s): M54.5 - Low back pain Condition: Good Disposition: HOME, SELF-CARE Instructions: Low Back Pain ([facility]), Oral Narcotic Medication ([facility]), Sickle Cell Crisis ([facility]) Additional Instructions: Home and rest. Medications prescribed. As we discussed in writing for pain medication and nausea medication. If for any chance that you go home and the pain is not treated by the medication return to ER for recheck and possible admission. Prescriptions: Ketorolac Tromethamine [Toradol 10 mg Tablet] 10 mg PO Q6HP PRN #20 tablet PRN Reason: Oxycodone HCl/Acetaminophen [Percocet 7.5-325 mg Tablet] 1 each PO ASDIR PRN # 20 tablet PRN Reason: For Pain Promethazine HCl 25 mg PO Q4 #20 tablet
[2017-02-21 08:53] LABS: HEMATOCRIT 26.2 % (36.0-47.0); HEMOGLOBIN 9.5 g/dL (12.0-15.5); HGB HCT DIFFERENCE 2.3; MEAN CORPUSCULAR HEMOGLOBIN 35.3 pg (27.0-33.4); MEAN CORPUSCULAR HGB CONC 36.4 g/dL (32.0-36.0); MEAN CORPUSCULAR VOLUME 97 fl (80-97); RED CELL DISTRIBUTION WIDTH 15.4 % (11.5-14.0); WHITE BLOOD COUNT 17.3 10^3/uL (4.0-10.5)
[2017-02-21 09:00] LABS: ALANINE AMINOTRANSFERASE 25 U/L (9-52); ALBUMIN 3.9 g/dL (3.5-5.0); ALKALINE PHOSPHATASE 87 U/L (38-126); ANION GAP 12 (5-19); ASPARTATE AMINO TRANSFERASE 27 U/L (14-36); BILIRUBIN,DIRECT 0.7 mg/dL (0.0-0.4); BILIRUBIN,TOTAL 4.6 mg/dL (0.2-1.3); BLOOD UREA NITROGEN 6 mg/dL (7-20); CARBON DIOXIDE 24 mmol/L (22-30); CHLORIDE 109 mmol/L (98-107); CREATININE RESULT 0.57 mg/dL (0.52-1.25); GLUCOSE 95 mg/dL (75-110); POTASSIUM 4.1 mmol/L (3.6-5.0); SODIUM 144.7 mmol/L (137-145); TOTAL PROTEIN 6.7 g/dL (6.3-8.2)
[2017-02-21 09:23] LABS: BASOPHILS % (MANUAL) 0 % (0-2); EOSINOPHILS % (MANUAL) 8 % (0-6); LYMPHOCYTES % (MANUAL) 11 % (13-45); NUCLEATED RED BLOOD CELLS 5 /100 WBC (0); TOTAL CELLS COUNTED 100; TOXIC GRANULATION SLIGHT
[2017-02-21 09:24] LABS: HOWELL-JOLLY BODIES PRESENT; POIKILOCYTOSIS 3+; POLYCHROMASIA 2+; SCHISTOCYTES 2+; TARGET CELLS 1+; TOXIC VACUOLATION PRESENT
[2017-02-21 09:36] LABS: APPEARANCE,URINE SLIGHTLY-CLOUDY; BILIRUBIN,URINE NEGATIVE (NEGATIVE); GLUCOSE, URINE NEGATIVE (NEGATIVE); KETONES,URINE NEGATIVE (NEGATIVE); LEUKOCYTE ESTERASE,URINE NEGATIVE (NEGATIVE); NITRITE,URINE NEGATIVE (NEGATIVE); PROTEIN,URINE NEGATIVE (NEGATIVE)
[2017-02-21] MEDS ORDERED: KETOROLAC TROMETHAMINE INJ/PF 30 MG/1 ML SDV IV ONE (10:45)
[2017-02-21 12:05] VITALS: BP 105/64
[2017-02-21] MEDS ORDERED: HEPARIN SOD (PORCINE) 1,000 UNIT/ML 1 ML VIAL IV ONE (12:45)
== END 2017-02-21 13:47 | disposition home or self-care (01) ==
LOC: ER 07:17
DX: D57.1 Sickle-cell disease without crisis (principal); M54.5 Low back pain; R11.0 Nausea; R53.1 Weakness; F17.210 Nicotine dependence, cigarettes, uncomplicated; Z88.6 Allergy status to analgesic agent; Z90.49 Acquired absence of other specified parts of digestive tract
CPT/HCPCS: 36591; 96376; 99284; 96361; 96374; 96375; 36415; 85025; 81025; 85045; 80053; 81001; J1885; J1170; J2405; J7030

== ENCOUNTER 2017-03-07 16:46 | Emergency (ER) | payer MEDICAID ==
[2017-03-07] MEDS ORDERED: FENTANYL CITRATE INJ/PF 100 MCG/2 ML AMPUL IV ONE (18:44)
[2017-03-07] MEDS ORDERED: NORMAL SALINE 1000 ML 1,000 ML IV ONE ×2 (18:45→21:03)
--- NOTE | 2017-03-07 18:46 | ER Document Report ---
ED Medical Screen (RME) - General Chief Complaint: Back Pain Stated Complaint: BACK PAIN Time Seen by Provider: 03/07/17 18:39 Notes: 22-year-old female past medical history of sickle cell disease here with complaints of cough (nonproductive) chest pain and low back pain that started several days ago. She has tried taking oxycodone 5 mg with minimal relief. She has not missed any doses of her hydroxyurea or folic acid. She has a history of acute chest syndrome last year. EXAM Clear to auscultation bilaterally Regular rate and rhythm TRAVEL OUTSIDE OF THE [place] IN LAST 30 DAYS: No - Related Data Allergies/Adverse Reactions: morphine Adverse Reaction (Severe, Verified 03/07/17 16:47) RASH,SWELLING jacob peppers Adverse Reaction (Severe, Uncoded 03/07/17 16:47) throat closes Past Medical History - Social History Frequency of alcohol use: None Drug Abuse: None Family history: Reviewed & Not Pertinent, Other - Pt was adopted. Does not know family history - Past Medical History Cardiac Medical History: Denies: Hx Coronary Artery Disease, Hx Heart Attack, Hx Hypertension Pulmonary Medical History: Reports: Hx Pneumonia Denies: Hx Asthma, Hx Bronchitis, Hx COPD Neurological Medical History: Denies: Hx Cerebrovascular Accident, Hx Seizures Renal/ Medical History: Denies: Hx Peritoneal Dialysis Musculoskeltal Medical History: Denies Hx Arthritis Psychiatric Medical History: Reports: Hx Anxiety, Hx Depression Past Surgical History: Reports: Hx Cholecystectomy - 06/28/2015, Hx Vascular Surgery - port - Immunizations Immunizations up to date: Yes Hx Diphtheria, Pertussis, Tetanus Vaccination: Yes History of Influenza Vaccine for 12/2016 - 05/2017 Season: Yes Influenza Administration Date for 12/2016 - 05/2017 Season: 12/30/15 Physical Exam - Vital signs Vitals: Temp Pulse Resp BP Pulse Ox 98.4 F 87 14 108/52 L 97 03/07/17 17:09 03/07/17 17:09 03/07/17 17:09 03/07/17 17:09 03/07/17 17:09 Course - Vital Signs Vital signs: Temp Pulse Resp BP Pulse Ox 98.4 F 87 14 108/52 L 97 03/07/17 17:09 03/07/17 17:09 03/07/17 17:09 03/07/17 17:09 03/07/17 17:09
--- NOTE | 2017-03-07 19:19 | RADIOLOGY REPORT (SQ) ---
EXAM DESCRIPTION: CHEST PA/LAT COMPLETED DATE/TIME: 03/07/2017 7:08 pm REASON FOR STUDY: cough, CP in sickle cell pt; infiltrate? COMPARISON: 01/31/2017 EXAM PARAMETERS: NUMBER OF VIEWS: two views TECHNIQUE: Digital Frontal and Lateral radiographic views of the chest acquired. RADIATION DOSE: NA LIMITATIONS: none FINDINGS: LUNGS AND PLEURA: No opacities, masses or pneumothorax. No pleural effusion. MEDIASTINUM AND HILAR STRUCTURES: No masses or contour abnormalities. HEART AND VASCULAR STRUCTURES: Heart normal size. No evidence for failure. BONES: No acute findings. HARDWARE: Venous access catheter tip at the cavoatrial junction. OTHER: No other significant finding. IMPRESSION: NO SIGNIFICANT RADIOGRAPHIC FINDING IN THE CHEST. TECHNICAL DOCUMENTATION: JOB ID: [id number] [employer]- All Rights Reserved
[2017-03-07 19:46] LABS: ABSOLUTE BASOPHILS # (AUTO) 0.3 10^3/uL (0.0-0.2); ABSOLUTE LYMPHOCYTES (AUTO) 3.5 10^3/uL (0.5-4.7); ABSOLUTE NEUT (AUTO) 7.8 10^3/uL (1.7-8.2); BASOPHILS % (AUTO) 2.2 % (0-2); EOSINOPHILS % (AUTO) 7.3 % (0-6); HEMATOCRIT 25.8 % (36.0-47.0); HEMOGLOBIN 9.3 g/dL (12.0-15.5); HGB HCT DIFFERENCE 2.1; LYMPHOCYTES % (AUTO) 25.7 % (13-45); MEAN CORPUSCULAR HEMOGLOBIN 35.3 pg (27.0-33.4); MEAN CORPUSCULAR HGB CONC 36.1 g/dL (32.0-36.0); MEAN CORPUSCULAR VOLUME 98 fl (80-97); MONOCYTES % (AUTO) 7.3 % (3-13); RED BLOOD COUNT 2.64 10^6/uL (3.72-5.28); RED CELL DISTRIBUTION WIDTH 15.1 % (11.5-14.0); SEGMENTED NEUTROPHILS % (AUTO) 57.5 % (42-78); WHITE BLOOD COUNT 13.7 10^3/uL (4.0-10.5)
[2017-03-07 19:51] LABS: STAIN REACTIVITY CHECK ACCEPTABLE
[2017-03-07 20:02] LABS: ANION GAP 12 (5-19); BLOOD UREA NITROGEN 10 mg/dL (7-20); CALCIUM 9.2 mg/dL (8.4-10.2); CARBON DIOXIDE 23 mmol/L (22-30); CHLORIDE 107 mmol/L (98-107); CREATININE RESULT 0.54 mg/dL (0.52-1.25); GLUCOSE 85 mg/dL (75-110); SODIUM 142.4 mmol/L (137-145)
[2017-03-07] MEDS ORDERED: ONDANSETRON HCL INJ/PF 4 MG/2 ML SDV IV ONE (21:02)
[2017-03-07] MEDS ORDERED: LORAZEPAM INJ 2 MG/1 ML VIAL IV ONE (21:02)
[2017-03-07] MEDS ORDERED: HYDROMORPHONE HCL INJ/PF 2 MG/ML AMPULE IV ONE ×2 (21:02→22:48)
--- NOTE | 2017-03-07 21:10 | ER Document Report ---
ED General - General Chief Complaint: Back Pain Stated Complaint: BACK PAIN Time Seen by Provider: 03/07/17 18:39 Mode of Arrival: Ambulatory Information source: Patient TRAVEL OUTSIDE OF THE [place] IN LAST 30 DAYS: No - HPI Notes: 22-year-old female past medical history of sickle cell disease here with complaints of cough (nonproductive) chest pain and low back pain that started several days ago. She has tried taking oxycodone 5 mg with minimal relief. She has not missed any doses of her hydroxyurea or folic acid. She has a history of acute chest syndrome last year. The patient is currently on Xarelto related to a blood clot that formed around the right chest port that she had placed on 01/21/17. Patient reports the pain location and intensity is consistent with her previous sickle cell pain crises. The patient reports that she is not out of her medications at the current time. Patient denies any fever or chills. Patient reports no nausea or vomiting or dysuria. - Related Data Allergies/Adverse Reactions: morphine Adverse Reaction (Severe, Verified 03/07/17 16:47) RASH,SWELLING jacob peppers Adverse Reaction (Severe, Uncoded 03/07/17 16:47) throat closes Past Medical History - General Information source: Patient - Social History Smoking Status: Current Every Day Smoker Frequency of alcohol use: None Drug Abuse: None Family History: Reviewed & Not Pertinent, Other Patient has suicidal ideation: No Patient has homicidal ideation: No - Past Medical History Cardiac Medical History: Denies: Hx Coronary Artery Disease, Hx Heart Attack, Hx Hypertension Pulmonary Medical History: Reports: Hx Pneumonia Denies: Hx Asthma, Hx Bronchitis, Hx COPD Neurological Medical History: Denies: Hx Cerebrovascular Accident, Hx Seizures Renal/ Medical History: Denies: Hx Peritoneal Dialysis Musculoskeltal Medical History: Denies Hx Arthritis Psychiatric Medical History: Reports: Hx Anxiety, Hx Depression Past Surgical History: Reports: Hx Cholecystectomy - 06/28/2015, Hx Vascular Surgery - port - Immunizations Immunizations up to date: Yes Hx Diphtheria, Pertussis, Tetanus Vaccination: Yes Review of Systems - Review of Systems Notes: REVIEW OF SYSTEMS: CONSTITUTIONAL : Denies fever, chills, or sweats. Denies recent illness. EENT: Denies eye, ear, throat, or mouth pain or symptoms. Denies nasal or sinus congestion or discharge. Denies throat, tongue, or mouth swelling or difficulty swallowing. CARDIOVASCULAR: Denies chest pain. Denies palpitations or racing or irregular heart beat. Denies ankle edema. RESPIRATORY: Denies cough, cold, or chest congestion. Denies shortness of breath, difficulty breathing, or wheezing. GASTROINTESTINAL: Denies abdominal pain or distention. Denies nausea, vomiting , or diarrhea. Denies blood in vomitus, stools, or per rectum. Denies black, tarry stools. Denies constipation. GENITOURINARY: Denies difficulty urinating, painful urination, burning, frequency, blood in urine, or discharge. FEMALE GENITOURINARY: Denies vaginal bleeding, heavy or abnormal periods, irregular periods. Denies vaginal discharge or odor. MUSCULOSKELETAL: Denies neck pain or stiffness. Denies joint pain or swelling. SKIN: Denies rash, lesions or sores. HEMATOLOGIC : Denies easy bruising or bleeding. LYMPHATIC: Denies swollen, enlarged glands. NEUROLOGICAL: Denies confusion or altered mental status. Denies passing out or loss of consciousness. Denies dizziness or lightheadedness. Denies headache. Denies weakness or paralysis or loss of use of either side. Denies problems with gait or speech. Denies sensory loss, numbness, or tingling. Denies seizures. PSYCHIATRIC: Denies anxiety or stress. Denies depression, suicidal ideation, or homicidal ideation. ALL OTHER SYSTEMS REVIEWED AND NEGATIVE. Dictation was performed using [employer] voice recognition software Physical Exam - Vital signs Vitals: Temp Pulse Resp BP Pulse Ox 98.4 F 87 14 108/52 L 97 03/07/17 17:09 03/07/17 17:09 03/07/17 17:09 03/07/17 17:09 03/07/17 17:09 - Notes Notes: PHYSICAL EXAMINATION: GENERAL: Well-appearing, well-nourished and in no acute distress. HEAD: Atraumatic, normocephalic. EYES: Pupils equal round and reactive to light, extraocular movements intact, conjunctiva are normal. ENT: Nares patent, oropharynx clear without exudates. Moist mucous membranes. NECK: Normal range of motion, supple without lymphadenopathy LUNGS: Breath sounds clear to auscultation bilaterally and equal. No wheezes rales or rhonchi. HEART: Regular rate and rhythm without murmurs ABDOMEN: Soft, nontender, nondistended abdomen. No guarding, no rebound. No masses appreciated. Female : deferred Musculoskeletal: Normal range of motion, no pitting or edema. No cyanosis. Pain diffusely through the midline back and posterior rib cage, patient denies any trauma. There is no erythema or crepitance. NEUROLOGICAL: Cranial nerves grossly intact. Normal speech, normal gait. Normal sensory, motor exams PSYCH: Normal mood, normal affect. SKIN: Warm, Dry, normal turgor, no rashes or lesions noted. Course - Re-evaluation Re-evalutation: 03/08/17 01:24 Patient was given supplemental oxygen and 2 L normal saline bolus and Zofran and several rounds of pain medications including fentanyl, Dilaudid and Toradol before she had adequate relief. Vital signs were stable and she felt appropriate for discharge. No evidence for any worsening of the patient's chronic anemia. Patient's bilirubin of 5 is consistent with previous values consistent with her long-standing history of sickle cell pain disease and vaso- occlusive crisis. There is no evidence for renal failure, , urinary tract infection, pneumonia, pneumothorax, pulmonary embolus. Patient is compliant with her Xarelto by her report. 03/08/17 01:25 No suggestion for cardiac ischemia or acute SC. - Vital Signs Vital signs: Temp Pulse Resp BP Pulse Ox 97.6 F 80 16 90/40 L 98 03/07/17 22:21 03/07/17 22:21 03/07/17 22:21 03/07/17 22:21 03/07/17 22:21 - Laboratory Result Diagrams: 03/07/17 19:32 03/07/17 19:32 Laboratory results interpreted by me: 03/07/17 03/07/17 03/07/17 19:32 19:32 22:51 WBC 13.7 H RBC 2.64 L Hgb 9.3 L Hct 25.8 L MCV 98 H MCH 35.3 H MCHC 36.1 H RDW 15.1 H Eosinophils % 7.3 H Basophils % 2.2 H Absolute Eosinophils 1.0 H Absolute Basophils 0.3 H Retic Count (auto) 5.36 H Absolute Retic 0.142 H Total Bilirubin 5.1 H Direct Bilirubin 1.0 H AST 49 H Urine Urobilinogen 4.0 H - EKG Interpretation by Me EKG shows normal: Sinus rhythm Additional EKG results interpreted by me: 03/07/17 21:42 EKG as interpreted by me showed normal sinus rhythm heart rate of 64. There is no gross evidence for acute SC or ischemia identified. There is no significant change as compared to previous EKG reviewed from 01/01/17. Discharge - Discharge Clinical Impression: Sickle cell pain crisis Sickle cell anemia Qualifiers: Sickle-cell associated disorders: with unspecified crisis Qualified Code(s): D57.00 - Hb-SS disease with crisis, unspecified; D57.0 - Hb-SS disease with crisis Condition: Stable Disposition: HOME, SELF-CARE Instructions: Pain Medication Injection ([facility]) Additional Instructions: QUIT SMOKING, IT CAUSES SICKLE CELL PAIN CRISES AND BLOOD CLOTS!!! Forms: Smoking Cessation Education, Return to Work
[2017-03-07 21:37] LABS: PROTHROMBIN TIME 14.2 SEC (11.4-15.4)
[2017-03-07 21:42] LABS: ALANINE AMINOTRANSFERASE 22 U/L (9-52); ALBUMIN 4.2 g/dL (3.5-5.0); ALKALINE PHOSPHATASE 85 U/L (38-126); ASPARTATE AMINO TRANSFERASE 49 U/L (14-36); BILIRUBIN,TOTAL 5.1 mg/dL (0.2-1.3); LIPASE 74.7 U/L (23-300); TOTAL PROTEIN 7.5 g/dL (6.3-8.2)
--- NOTE | 2017-03-07 21:45 | EKG REPORT ---
SEVERITY:- NORMAL ECG - SINUS RHYTHM : Confirmed by: Nathan Lopez 07-Mar-2017 21:44:58
[2017-03-07 22:22] VITALS: BP 90/40
[2017-03-07] MEDS ORDERED: KETOROLAC TROMETHAMINE INJ/PF 30 MG/1 ML SDV IV ONE (22:48)
[2017-03-07 23:19] LABS: APPEARANCE,URINE CLEAR; BILIRUBIN,URINE NEGATIVE (NEGATIVE); GLUCOSE, URINE NEGATIVE (NEGATIVE); KETONES,URINE NEGATIVE (NEGATIVE); LEUKOCYTE ESTERASE,URINE NEGATIVE (NEGATIVE); NITRITE,URINE NEGATIVE (NEGATIVE); PROTEIN,URINE NEGATIVE (NEGATIVE)
[2017-03-08] MEDS ORDERED: HYDROMORPHONE HCL INJ/PF 2 MG/ML AMPULE IV ONE (00:21)
[2017-03-08] MEDS ORDERED: LORAZEPAM INJ 2 MG/1 ML VIAL IV ONE (00:21)
== END 2017-03-08 01:50 | disposition home or self-care (01) ==
LOC: ER 16:46
DX: D57.00 Hb-SS disease with crisis, unspecified (principal); M54.9 Dorsalgia, unspecified; R05 Cough; R07.9 Chest pain, unspecified; M54.5 Low back pain; Z79.899 Other long term (current) drug therapy; Z79.01 Long term (current) use of anticoagulants; F17.200 Nicotine dependence, unspecified, uncomplicated
CPT/HCPCS: 93005; 36591; 96376; 99284; 96361; 96374; 96375; 36415; 83690; 85025; 85610; 81025; 85045; 80076; 80048; 81001; 84484; 71020; 93010; J3010; J1885; J1170 ×2; J2060 ×2; J2405; J7030

== ENCOUNTER 2017-03-08 14:42 | Inpatient (IN) | payer MEDICAID ==
[2017-03-08] MEDS ORDERED: NORMAL SALINE 1000 ML 1,000 ML IV ONE ×3 (15:07→18:47)
[2017-03-08] MEDS ORDERED: HYDROMORPHONE HCL INJ/PF 2 MG/ML AMPULE IV ONE ×3 (15:07→18:29)
--- NOTE | 2017-03-08 15:10 | ER Document Report ---
ED Medical Screen (RME) - General Chief Complaint: Sickle Cell Crisis Stated Complaint: LOWER BACK PAIN/ CHEST PAIN Time Seen by Provider: 03/08/17 15:05 Mode of Arrival: Ambulatory Information source: Patient TRAVEL OUTSIDE OF THE [place] IN LAST 30 DAYS: No - HPI Patient complains to provider of: sickle cell crisis Onset: Other - pt was seen in ED last night for SC crisis and given IVF and pain meds. She was told to RTED if pain increased, which it did. - Related Data Allergies/Adverse Reactions: morphine Adverse Reaction (Severe, Verified 03/07/17 16:47) RASH,SWELLING jacob peppers Adverse Reaction (Severe, Uncoded 03/07/17 16:47) throat closes Past Medical History - Social History Chew tobacco use (# tins/day): No Frequency of alcohol use: None Drug Abuse: None Family history: Reviewed & Not Pertinent, Other - Pt was adopted. Does not know family history - Past Medical History Cardiac Medical History: Denies: Hx Coronary Artery Disease, Hx Heart Attack, Hx Hypertension Pulmonary Medical History: Reports: Hx Pneumonia Denies: Hx Asthma, Hx Bronchitis, Hx COPD Neurological Medical History: Denies: Hx Cerebrovascular Accident, Hx Seizures Renal/ Medical History: Denies: Hx Peritoneal Dialysis Musculoskeltal Medical History: Denies Hx Arthritis Psychiatric Medical History: Reports: Hx Anxiety, Hx Depression Past Surgical History: Reports: Hx Cholecystectomy - 06/28/2015, Hx Vascular Surgery - port - Immunizations Immunizations up to date: Yes Hx Diphtheria, Pertussis, Tetanus Vaccination: Yes History of Influenza Vaccine for 12/2016 - 05/2017 Season: Yes Influenza Administration Date for 12/2016 - 05/2017 Season: 12/30/15 Physical Exam - Vital signs Vitals: Temp Pulse Resp BP Pulse Ox 98.0 F 80 20 107/62 97 03/08/17 14:50 03/08/17 14:50 03/08/17 14:50 03/08/17 14:50 03/08/17 14:50 Course - Vital Signs Vital signs: Temp Pulse Resp BP Pulse Ox 98.0 F 80 20 107/62 97 03/08/17 14:50 03/08/17 14:50 03/08/17 14:50 03/08/17 14:50 03/08/17 14:50
[2017-03-08 15:39] LABS: APPEARANCE,URINE CLEAR; BILIRUBIN,URINE NEGATIVE (NEGATIVE); GLUCOSE, URINE NEGATIVE (NEGATIVE); KETONES,URINE NEGATIVE (NEGATIVE); LEUKOCYTE ESTERASE,URINE NEGATIVE (NEGATIVE); NITRITE,URINE NEGATIVE (NEGATIVE); PROTEIN,URINE NEGATIVE (NEGATIVE); URINE SPECIFIC GRAVITY 1.008; UROBILINOGEN,URINE NEGATIVE mg/dL (<2.0)
[2017-03-08 16:53] LABS: ALANINE AMINOTRANSFERASE 24 U/L (9-52); ALBUMIN 3.8 g/dL (3.5-5.0); ALKALINE PHOSPHATASE 59 U/L (38-126); ANION GAP 13 (5-19); ASPARTATE AMINO TRANSFERASE 27 U/L (14-36); BILIRUBIN,DIRECT 0.6 mg/dL (0.0-0.4); BILIRUBIN,TOTAL 4.9 mg/dL (0.2-1.3); BLOOD UREA NITROGEN 5 mg/dL (7-20); CALCIUM 9.1 mg/dL (8.4-10.2); CARBON DIOXIDE 22 mmol/L (22-30); CHLORIDE 107 mmol/L (98-107); GLUCOSE 75 mg/dL (75-110); POTASSIUM 4.1 mmol/L (3.6-5.0); SODIUM 141.9 mmol/L (137-145); TOTAL PROTEIN 6.6 g/dL (6.3-8.2)
[2017-03-08 16:56] LABS: ABSOLUTE BASOPHILS # (AUTO) 0.2 10^3/uL (0.0-0.2); ABSOLUTE EOSINOPHILS # (AUTO) 0.6 10^3/uL (0.0-0.6); ABSOLUTE LYMPHOCYTES (AUTO) 2.2 10^3/uL (0.5-4.7); ABSOLUTE MONOCYTES (AUTO) 1.2 10^3/uL (0.1-1.4); ABSOLUTE NEUT (AUTO) 11.1 10^3/uL (1.7-8.2); BASOPHILS % (AUTO) 1.4 % (0-2); EOSINOPHILS % (AUTO) 4.2 % (0-6); HEMATOCRIT 24.7 % (36.0-47.0); HEMOGLOBIN 9.1 g/dL (12.0-15.5); HGB HCT DIFFERENCE 2.6; LYMPHOCYTES % (AUTO) 14.5 % (13-45); MEAN CORPUSCULAR HEMOGLOBIN 35.8 pg (27.0-33.4); MEAN CORPUSCULAR HGB CONC 36.7 g/dL (32.0-36.0); MEAN CORPUSCULAR VOLUME 98 fl (80-97); RED BLOOD COUNT 2.53 10^6/uL (3.72-5.28); RED CELL DISTRIBUTION WIDTH 15.2 % (11.5-14.0); SEGMENTED NEUTROPHILS % (AUTO) 71.9 % (42-78); WHITE BLOOD COUNT 15.4 10^3/uL (4.0-10.5)
[2017-03-08 16:57] LABS: STAIN REACTIVITY CHECK ACCEPTABLE
[2017-03-08] MEDS ORDERED: DIPHENHYDRAMINE HCL 50 MG/ML VIAL IV ONE (17:07)
--- NOTE | 2017-03-08 17:15 | ER Document Report ---
ED General Pain - General Chief Complaint: Sickle Cell Crisis Stated Complaint: LOWER BACK PAIN/ CHEST PAIN Time Seen by Provider: 03/08/17 15:05 Mode of Arrival: Ambulatory Notes: Patient with sickle cell disease complaining of lower back pain week. She recalls no unusual activity or injury. Does think it may be related to the recent cold weather that we have begun to have this fall and winter. She was here last night for this same pain and advised to return if her symptoms had not improved today. She says her pain is now worse. Is located in the lumbar region of the back. Has had some symptoms of a cold, with some cough, but not producing any phlegm. Says she has pain under her diaphragm in the front. Has vomited a couple of times. No UTI symptoms. No fever. Current medications include oxycodone 5 mg every 6 hours as needed, hydroxyurea, folate, Xarelto. Patient is on the Xarelto because she developed a clot in her right neck when her port was placed in December. LMP 02/26. On no control. Cholecystectomy. TRAVEL OUTSIDE OF THE [place] IN LAST 30 DAYS: No - Related Data Allergies/Adverse Reactions: morphine Adverse Reaction (Severe, Verified 03/07/17 16:47) RASH,SWELLING jacob peppers Adverse Reaction (Severe, Uncoded 03/07/17 16:47) throat closes Past Medical History - General Information source: Patient - Social History Smoking Status: Current Some Day Smoker Chew tobacco use (# tins/day): No Frequency of alcohol use: None Drug Abuse: None Family History: Reviewed & Not Pertinent, Other Patient has suicidal ideation: No Patient has homicidal ideation: No Pulmonary Medical History: Reports: Hx Pneumonia Psychiatric Medical History: Reports: Hx Anxiety, Hx Depression Past Surgical History: Reports: Hx Cholecystectomy - 06/28/2015, Hx Vascular Surgery - port put in December, - Immunizations Immunizations up to date: Yes Hx Diphtheria, Pertussis, Tetanus Vaccination: Yes Review of Systems - Review of Systems Notes: REVIEW OF SYSTEMS: CONSTITUTIONAL : Denies fever. EENT: Denies eye, ear, nose or mouth or throat pain or other symptoms. CARDIOVASCULAR: Has had some chest pain, in the region of her diaphragm anteriorly. RESPIRATORY: Denies cough, chest congestion, or shortness of breath. GASTROINTESTINAL: Denies abdominal pain but has had nausea and vomiting, not diarrhea. GENITOURINARY: Denies difficulty or painful urinating, urinary frequency, blood in urine. MUSCULOSKELETAL: Denies neck pain. Denies any joint pain or swelling. SKIN: Denies rash or skin lesions. NEUROLOGICAL: Denies LOC or altered mental status. Denies headache. Denies sensory loss or motor deficits. ALL OTHER SYSTEMS REVIEWED AND NEGATIVE. Physical Exam - Vital signs Vitals: Temp Pulse Resp BP Pulse Ox 98.0 F 80 20 107/62 97 03/08/17 14:50 03/08/17 14:50 03/08/17 14:50 03/08/17 14:50 03/08/17 14:50 Interpretation: Normal - Notes Notes: PHYSICAL EXAMINATION: GENERAL: Well-appearing, in no acute distress. Vital signs are all normal. HEAD: Atraumatic, normocephalic. EYES: Pupils equal round and reactive to light, extraocular movements intact. ENT: oropharynx clear without exudates. Moist mucous membranes. NECK: Normal range of motion, supple. LUNGS: Breath sounds clear and equal bilaterally. No significant chest wall tenderness to palpation. HEART: Regular rate and rhythm without murmurs. ABDOMEN: Soft, nontender. No guarding or rebound. BACK: Tender across the paralumbar muscles bilaterally. EXTREMITIES: Normal range of motion without pain. Negative Homans bilaterally. NEUROLOGICAL: Normal speech, normal gait. Normal sensory, motor, and reflex exams. Awake, alert, and oriented x3. Cranial nerves normal. PSYCH: Normal mood, normal affect. SKIN: Warm, dry, no rashes. Course - Re-evaluation Re-evalutation: 03/08/17 18:37 Patient says that she has not had any relief from the Dilaudid 1 mg given twice IV. Lab work is the usual expected in her case. Her to reticulocyte count 4. White count slightly elevated. Urine does not look like any infection. Spoke with Dr. Baum, patient's doctor and oncologist, and he recommends admission. Spoke with Dr. Esqueda and he approved putting the patient in for a bed and I will talk with Dr. Simmons, the night hospitalist when he comes on duty after 7:00. 03/08/17 19:[address] Simmons who will admit the patient. - Vital Signs Vital signs: Temp Pulse Resp BP Pulse Ox 98.0 F 80 20 107/62 97 03/08/17 14:50 03/08/17 14:50 03/08/17 14:50 03/08/17 14:50 03/08/17 14:50 - Laboratory Result Diagrams: 03/08/17 16:14 03/08/17 16:14 Laboratory results interpreted by me: 03/08/17 03/08/17 16:14 16:14 WBC 15.4 H RBC 2.53 L Hgb 9.1 L Hct 24.7 L MCV 98 H MCH 35.8 H MCHC 36.7 H RDW 15.2 H Absolute Neutrophils 11.1 H Retic Count (auto) 4.42 H BUN 5 L Creatinine 0.50 L Total Bilirubin 4.9 H Direct Bilirubin 0.6 H Discharge - Discharge Clinical Impression: Sickle cell anemia with pain Condition: Stable Disposition: ADMITTED OBSERVATION Admitting Provider: Hospitalist Unit Admitted: Telemetry Referrals: JOIE BAUM MD [Primary Care Provider] - Follow up as needed
--- NOTE | 2017-03-08 19:08 | RADIOLOGY REPORT (SQ) ---
EXAM DESCRIPTION: CHEST PA/LAT COMPLETED DATE/TIME: 03/08/2017 6:58 pm REASON FOR STUDY: Sickle cell pain with chest pain COMPARISON: 03/07/2017 EXAM PARAMETERS: NUMBER OF VIEWS: two views TECHNIQUE: Digital Frontal and Lateral radiographic views of the chest acquired. RADIATION DOSE: NA LIMITATIONS: none FINDINGS: LUNGS AND PLEURA: No new opacities, masses or pneumothorax. No pleural effusion. MEDIASTINUM AND HILAR STRUCTURES: No masses or contour abnormalities. HEART AND VASCULAR STRUCTURES: Heart stable in size. No evidence for failure. BONES: No acute findings. Stable sequela to sickle cell disease. HARDWARE: Stable. OTHER: No other significant finding. IMPRESSION: NO ACUTE CARDIOPULMONARY PROCESS. NO SIGNIFICANT CHANGE FROM YESTERDAY. TECHNICAL DOCUMENTATION: JOB ID: [id number] All Rights Reserved
[2017-03-08] MEDS ORDERED: PROMETHAZINE HCL 25 MG TABLET PO PRN (19:17)
[2017-03-08] MEDS ORDERED: ACETAMINOPHEN 325 MG TABLET PO PRN (19:17)
[2017-03-08] MEDS ORDERED: IPRATROPIUM/ALBUTEROL 0.5-2.5 MG/3 ML AMPUL NEB PRN (19:17)
[2017-03-08] MEDS: NORMAL SALINE 1000 ML 1,000 ML IV SCH ×2 (21:30→23:43)
[2017-03-08] MEDS: HYDROMORPHONE HCL INJ/PF 2 MG/ML AMPULE IV PRN (22:40)
[2017-03-08] MEDS: DIPHENHYDRAMINE HCL 50 MG/ML VIAL IV PRN (22:40)
[2017-03-08] MEDS: MAGNESIUM HYDROXIDE SUSP 30 ML UDCUP PO SCH (22:40)
[2017-03-08] MEDS: IPRATROPIUM/ALBUTEROL 0.5-2.5 MG/3 ML AMPUL NEB SCH (23:43)
[2017-03-09] MEDS: HYDROMORPHONE HCL INJ/PF 2 MG/ML AMPULE IV PRN ×7 (01:38→23:24)
[2017-03-09] MEDS: NORMAL SALINE 1000 ML 1,000 ML IV SCH (03:30)
[2017-03-09] MEDS: DIPHENHYDRAMINE HCL 50 MG/ML VIAL IV PRN (06:16)
[2017-03-09 06:34] LABS: HEMATOCRIT 20.6 % (36.0-47.0); HGB HCT DIFFERENCE 1.6; MEAN CORPUSCULAR HEMOGLOBIN 35.4 pg (27.0-33.4); MEAN CORPUSCULAR HGB CONC 36.1 g/dL (32.0-36.0); MEAN CORPUSCULAR VOLUME 98 fl (80-97); RED BLOOD COUNT 2.11 10^6/uL (3.72-5.28); RED CELL DISTRIBUTION WIDTH 15.4 % (11.5-14.0); WHITE BLOOD COUNT 13.9 10^3/uL (4.0-10.5)
[2017-03-09 06:53] LABS: HEMOGLOBIN 7.4 g/dL (12.0-15.5)
[2017-03-09 06:58] LABS: ANION GAP 8 (5-19); BLOOD UREA NITROGEN 3 mg/dL (7-20); CALCIUM 8.2 mg/dL (8.4-10.2); CARBON DIOXIDE 23 mmol/L (22-30); CHLORIDE 111 mmol/L (98-107); CREATININE RESULT 0.47 mg/dL (0.52-1.25); GLUCOSE 82 mg/dL (75-110); POTASSIUM 3.9 mmol/L (3.6-5.0)
[2017-03-09 07:00] LABS: BAND NEUTROPHILS % (MANUAL) 1 % (3-5); BASOPHILS % (MANUAL) 1 % (0-2); EOSINOPHILS % (MANUAL) 7 % (0-6); LYMPHOCYTES % (MANUAL) 24 % (13-45); NUCLEATED RED BLOOD CELLS 4 /100 WBC (0); TOTAL CELLS COUNTED 100
[2017-03-09 07:06] LABS: ANISOCYTOSIS SLIGHT; HYPOCHROMASIA 1+; POLYCHROMASIA SLIGHT
[2017-03-09 07:07] LABS: POIKILOCYTOSIS 2+; SCHISTOCYTES 1+; TARGET CELLS 2+
--- NOTE | 2017-03-09 07:13 | PDOC H&P ---
History of Present Illness Admission Date/PCP: 03/08/17 19:29 JOIE MOREIRA MD Patient complains of: Diffuse back pain History of Present Illness: CASSANDRA MIDDLETON is a 22 year old female with history of sickle cell disease and tobacco dependence. She presents after 7 days of diffuse back, shoulder and leg pain consistent with previous episodes of sickle cell pain crisis. She denies fever chills nausea vomiting diaphoresis. No rhinorrhea, sore throat, cough or dysuria. She describes exposure to cold weather. She denies any recent change in medications. In the emergency room she is found to have a hemoglobin of 9.1 but a reticulocyte count of 4.4. She is referred to the hospitalist for admission. Past Medical History Cardiac Medical History: Denies: Coronary Artery Disease, Myocardial Infarction, Hypertension Pulmonary Medical History: Reports: Pneumonia Denies: Asthma, Bronchitis, Chronic Obstructive Pulmonary Disease (COPD) Neurological Medical History: Denies: Seizures Musculoskeltal Medical History: Denies: Arthritis Psychiatric Medical History: Reports: Depression Hematology: Reports: Anemia, Sickle Cell Disease Past Surgical History Past Surgical History: Reports: Cholecystectomy - 06/28/2015, Vascular Surgery - port put in December, Social History Information Source: Patient Smoking Status: Current Some Day Smoker Frequency of Alcohol Use: None Hx Recreational Drug Use: No Drugs: None Hx Prescription Drug Abuse: No - Advance Directive Resuscitation Status: Full Code Family History Family History: Hypertension, Other - Sickle cell Parental Family History Reviewed: Yes Children Family History Reviewed: Yes Sibling(s) Family History Reviewed.: Yes Medication/Allergy Home Medications: Rivaroxaban [Xarelto] 15 mg PO Q12 01/31/17 Hydroxyurea [Hydroxyurea] 1 tab PO BID 02/21/17 Oxycodone HCl/Acetaminophen [Percocet 7.5-325 mg Tablet] 1 each PO ASDIR PRN # 20 tablet 02/21/17 Allergies/Adverse Reactions: morphine Adverse Reaction (Severe, Verified 03/07/17 16:47) RASH,SWELLING jacob peppers Adverse Reaction (Severe, Uncoded 03/07/17 16:47) throat closes Review of Systems Constitutional: PRESENT: as per HPI, fatigue. ABSENT: chills, fever(s), headache(s), weight gain, weight loss Eyes: ABSENT: visual disturbances Ears: ABSENT: hearing changes Cardiovascular: ABSENT: chest pain, dyspnea on exertion, edema, orthropnea, palpitations Respiratory: ABSENT: cough, hemoptysis, sputum Gastrointestinal: ABSENT: abdominal pain, constipation, diarrhea, hematemesis, hematochezia, nausea, vomiting Genitourinary: ABSENT: dysuria, hematuria Musculoskeletal: PRESENT: back pain. ABSENT: joint swelling Integumentary: ABSENT: rash, wounds Neurological: ABSENT: abnormal gait, abnormal speech, confusion, dizziness, focal weakness, syncope Psychiatric: ABSENT: anxiety, depression, homidical ideation, suicidal ideation Endocrine: ABSENT: cold intolerance, heat intolerance, polydipsia, polyuria Hematologic/Lymphatic: ABSENT: easy bleeding, easy bruising Physical Exam Vital Signs: Temp Pulse Resp BP Pulse Ox 97.7 F 90 15 101/54 L 96 03/09/17 03:23 03/09/17 03:23 03/09/17 03:23 03/09/17 03:23 03/09/17 03:23 Intake & Output 03/07/17 03/08/17 03/09/17 11:59 11:59 11:59 Intake Total 2883 Output Total 1300 Balance 1583 Weight 59.3 kg General appearance: PRESENT: cooperative, mild distress, well-developed, well- nourished Head exam: PRESENT: atraumatic, normocephalic Eye exam: PRESENT: conjunctiva pink, EOMI, PERRLA. ABSENT: scleral icterus Ear exam: PRESENT: normal external ear exam Mouth exam: PRESENT: moist, tongue midline Neck exam: ABSENT: carotid bruit, JVD, lymphadenopathy, thyromegaly Respiratory exam: PRESENT: clear to auscultation samaria. ABSENT: rales, rhonchi, wheezes Cardiovascular exam: PRESENT: RRR. ABSENT: diastolic murmur, rubs, systolic murmur Pulses: PRESENT: normal dorsalis pedis pul Vascular exam: PRESENT: normal capillary refill GI/Abdominal exam: PRESENT: normal bowel sounds, soft. ABSENT: distended, guarding, mass, organolmegaly, rebound, tenderness Rectal exam: PRESENT: deferred Extremities exam: PRESENT: full ROM. ABSENT: calf tenderness, clubbing, pedal edema Neurological exam: PRESENT: alert, awake, oriented to person, oriented to place , oriented to time, oriented to situation, CN II-XII grossly intact. ABSENT: motor sensory deficit Psychiatric exam: PRESENT: appropriate affect, normal mood. ABSENT: homicidal ideation, suicidal ideation Skin exam: PRESENT: dry, intact, warm. ABSENT: cyanosis, rash Results Laboratory Results: 03/09/17 06:00 03/09/17 03/09/17 06:00 06:00 Seg Neutrophils % Not Reportable Lymphocytes % Not Reportable Monocytes % Not Reportable Eosinophils % Not Reportable Basophils % Not Reportable Absolute Neutrophils Not Reportable Absolute Lymphocytes Not Reportable Absolute Monocytes Not Reportable Absolute Eosinophils Not Reportable Absolute Basophils Not Reportable Sodium 142.0 Potassium 3.9 Chloride 111 H Carbon Dioxide 23 Anion Gap 8 BUN 3 L Creatinine 0.47 L Est GFR ( Amer) > 60 Est GFR (Non-Af Amer) > 60 Glucose 82 Calcium 8.2 L Impressions: Chest X-Ray 03/08/17 18:45 IMPRESSION: NO ACUTE CARDIOPULMONARY PROCESS. NO SIGNIFICANT CHANGE FROM YESTERDAY. Assessment & Plan - Diagnosis (1) Sickle cell anemia with pain Is this a current diagnosis for this admission?: Yes Plan: Labs suggest active hemolysis. Telemetry admission, symptomatic management, IV fluids and follow-up CBC. Consider hematology consultation. (2) Chronic pain syndrome Is this a current diagnosis for this admission?: Yes Plan: Opiates as needed however patient requesting Dilaudid when awoken from sleep and difficulty staying awake. - Time Time Spent: 30 to 50 Minutes - Inpatient Certification Medical Necessity: Need Close Monitoring Due to Risk of Patient Decompensation
[2017-03-09] MEDS ORDERED: RIVAROXABAN 15 MG TABLET PO SCH (08:00)
[2017-03-09] MEDS: IPRATROPIUM/ALBUTEROL 0.5-2.5 MG/3 ML AMPUL NEB SCH ×2 (08:06→15:56)
[2017-03-09] MEDS ORDERED: HYDROXYUREA 500 MG CAPSULE PO SCH (10:00)
[2017-03-09] MEDS: DOCUSATE SODIUM 100 MG CAPSULE PO SCH ×2 (10:36→17:37)
--- NOTE | 2017-03-09 10:49 | PDOC CONSULTATION ---
Consultation Consult Date: 03/09/17 Attending physician:: KARI BARRETO Consult reason:: Sickle cell crisis, anemia History of Present Illness Admission Date/PCP: 03/08/17 19:29 JOIE MOREIRA MD Patient complains of: Severe back pain, dehydration, nausea and vomiting History of Present Illness: 22-year-old female well-known to our oncology clinic with known history of sickle cell disease, she has had about a 5 day history of increasing low back pain consistent with her usual sickle cell pain, she came to the ED 2 days ago was given IV hydration and pain medication and then discharged home, but unfortunately the pain increased and she presented again yesterday, the decision was made to go ahead and admit her for IV hydration and pain control. She has been on Dilaudid 1 mg IV but pain is still out of control, she has had some hypertension as well. Of note, her hemoglobin dropped to 7.4, so I discussed the use of transfusion today with her. She was agreeable to that. She does have known history of recent port placement and unfortunately port associated thrombosis, so she is on anticoagulation with Xarelto with that. Today we will transition to 20 mg daily. Past Medical History Cardiac Medical History: Denies: Coronary Artery Disease, Myocardial Infarction, Hypertension Pulmonary Medical History: Reports: Pneumonia Denies: Asthma, Bronchitis, Chronic Obstructive Pulmonary Disease (COPD) Neurological Medical History: Denies: Seizures Musculoskeltal Medical History: Denies: Arthritis Psychiatric Medical History: Reports: Depression Hematology: Reports: Anemia, Sickle Cell Disease Past Surgical History Past Surgical History: Reports: Cholecystectomy - 06/28/2015, Vascular Surgery - port put in December, Social History Information Source: Patient Smoking Status: Current Some Day Smoker Frequency of Alcohol Use: None Hx Recreational Drug Use: No Drugs: None Hx Prescription Drug Abuse: No - Advance Directive Resuscitation Status: Full Code Family History Family History: Hypertension, Other - Sickle cell Parental Family History Reviewed: Yes Children Family History Reviewed: Yes Sibling(s) Family History Reviewed.: Yes Medication/Allergy Home Medications: Rivaroxaban [Xarelto] 15 mg PO Q12 01/31/17 Hydroxyurea [Hydroxyurea] 1 tab PO BID 02/21/17 Oxycodone HCl/Acetaminophen [Percocet 7.5-325 mg Tablet] 1 each PO ASDIR PRN # 20 tablet 02/21/17 Allergies/Adverse Reactions: morphine Adverse Reaction (Severe, Verified 03/07/17 16:47) RASH,SWELLING jacob peppers Adverse Reaction (Severe, Uncoded 03/07/17 16:47) throat closes Review of Systems Constitutional: PRESENT: fatigue, weakness. ABSENT: chills, fever(s), headache( s), weight gain, weight loss Eyes: ABSENT: visual disturbances Ears: ABSENT: hearing changes Cardiovascular: PRESENT: dyspnea on exertion Respiratory: ABSENT: cough, hemoptysis Gastrointestinal: PRESENT: nausea, vomiting Genitourinary: ABSENT: dysuria, hematuria Musculoskeletal: PRESENT: back pain. ABSENT: joint swelling Integumentary: PRESENT: pruritus. ABSENT: rash, wounds Neurological: ABSENT: abnormal gait, abnormal speech, confusion, dizziness, focal weakness, syncope Psychiatric: ABSENT: anxiety, depression, homidical ideation, suicidal ideation Endocrine: ABSENT: cold intolerance, heat intolerance, polydipsia, polyuria Hematologic/Lymphatic: ABSENT: easy bleeding, easy bruising Physical Exam Vital Signs: Temp Pulse Resp BP Pulse Ox 97.7 F 87 16 102/56 L 98 03/09/17 07:31 03/09/17 08:06 03/09/17 08:06 03/09/17 07:31 03/09/17 08:06 Intake & Output 03/08/17 03/09/17 03/10/17 06:59 06:59 06:59 Intake Total 2883 Output Total 1300 Balance 1583 Weight 59.3 kg General appearance: PRESENT: no acute distress, well-developed, well-nourished Head exam: PRESENT: atraumatic, normocephalic Eye exam: PRESENT: conjunctiva pink, EOMI, PERRLA. ABSENT: scleral icterus Ear exam: PRESENT: normal external ear exam Mouth exam: PRESENT: moist, tongue midline Neck exam: ABSENT: carotid bruit, JVD, lymphadenopathy, thyromegaly Respiratory exam: PRESENT: clear to auscultation samaria. ABSENT: rales, rhonchi, wheezes Cardiovascular exam: PRESENT: RRR. ABSENT: diastolic murmur, rubs, systolic murmur Pulses: PRESENT: normal dorsalis pedis pul Vascular exam: PRESENT: normal capillary refill GI/Abdominal exam: PRESENT: normal bowel sounds, soft. ABSENT: distended, guarding, mass, organolmegaly, rebound, tenderness Rectal exam: PRESENT: deferred Extremities exam: PRESENT: full ROM. ABSENT: calf tenderness, clubbing, pedal edema Neurological exam: PRESENT: alert, awake, oriented to person, oriented to place , oriented to time, oriented to situation, CN II-XII grossly intact. ABSENT: motor sensory deficit Psychiatric exam: PRESENT: appropriate affect, normal mood. ABSENT: homicidal ideation, suicidal ideation Skin exam: PRESENT: dry, intact, warm. ABSENT: cyanosis, rash Results Laboratory Results: 03/09/17 06:00 03/09/17 06:00 03/09/17 03/09/17 06:00 06:00 WBC 13.9 H RBC 2.11 L Hgb 7.4 L Hct 20.6 L MCV 98 H MCH 35.4 H MCHC 36.1 H RDW 15.4 H Plt Count 310 Seg Neutrophils % Not Reportable Lymphocytes % Not Reportable Monocytes % Not Reportable Eosinophils % Not Reportable Basophils % Not Reportable Absolute Neutrophils Not Reportable Absolute Lymphocytes Not Reportable Absolute Monocytes Not Reportable Absolute Eosinophils Not Reportable Absolute Basophils Not Reportable Sodium 142.0 Potassium 3.9 Chloride 111 H Carbon Dioxide 23 Anion Gap 8 BUN 3 L Creatinine 0.47 L Est GFR ( Amer) > 60 Est GFR (Non-Af Amer) > 60 Glucose 82 Calcium 8.2 L Impressions: Chest X-Ray 03/08/17 18:45 IMPRESSION: NO ACUTE CARDIOPULMONARY PROCESS. NO SIGNIFICANT CHANGE FROM YESTERDAY. Assessment & Plan - Diagnosis (1) Sickle-cell disease with vaso-occlusive pain Is this a current diagnosis for this admission?: Yes Plan: Patient with acute sickle cell pain crisis, plan for increase of Dilaudid, add for K pad for comfort, added bowel regimen as well. We will take care of her pain control, so call Dr. Moreira for any pain needs. (2) Anemia Qualifiers: Hemolytic anemia type: other hemoglobinopathy Is this a current diagnosis for this admission?: Yes Plan: Anemia secondary to sickle cell disease, plan for transfusion of 2 units of packed red blood cells today, ordered Benadryl and Tylenol for premeds. Will not give Lasix because patient is already hypotensive. - Time Time Spent: Greater than 70 Minutes - Inpatient Certification Based on my medical assessment, after consideration of the patient's comorbidities, presenting symptoms, or acuity I expect that the services needed warrant INPATIENT care.: Yes I certify that my determination is in accordance with my understanding of Medicare's requirements for reasonable and necessary INPATIENT services [42 CFR 412.3e].: Yes Medical Necessity: Failure to Improve With Outpatient Therapy, Need For IV Fluids, Need for Pain Control
[2017-03-09] MEDS ORDERED: DIPHENHYDRAMINE HCL 25 MG CAPSULE PO PRN (10:56)
[2017-03-09] MEDS ORDERED: ACETAMINOPHEN 325 MG TABLET PO PRN (10:57)
[2017-03-09] MEDS ORDERED: POLYETHYLENE GLYCOL 3350 POWDER 17 GM/1 PACKET PO PRN (11:00)
[2017-03-09] MEDS ORDERED: SENNOSIDES/DOCUSATE 8.6-50 MG 1 EACH TABLET PO PRN (11:01)
--- NOTE | 2017-03-09 11:58 | PDOC PROGRESS REPORT ---
Subjective Progress Note for:: 03/09/17 Subjective:: The patient is a 22-year-old female with sickle cell anemia. She has been having symptoms of back pain for the last 5-7 days. She was seen in the emergency department approximately 2 days ago. She received IV hydration and pain medication. However, her symptoms persisted and she is now hospitalized for a sickle cell crisis. The patient feels that the triggering event is the change in the weather. However, she is also had a dry cough. She has not had a productive cough. She has not had any fevers. She denies abdominal pain. She denies pain or burning with urination, her only symptom is the cough as described above. Reason For Visit: SSC PAIN CRISIS,BRONCHITIS,TOBACCO,DIABETES Physical Exam Vital Signs: Temp Pulse Resp BP Pulse Ox 97.7 F 87 16 102/56 L 98 03/09/17 07:31 03/09/17 08:06 03/09/17 08:06 03/09/17 07:31 03/09/17 08:06 Intake & Output 03/08/17 03/09/17 03/10/17 06:59 06:59 06:59 Intake Total 2883 Output Total 1300 Balance 1583 Weight 59.3 kg Additional comments: Patient is a young, black female. She is well-nourished and well-developed. She is not obese. Her oropharynx is benign. Her facial appearance is normal. Her lungs are clear to auscultation bilaterally. Her cardiac exam is regular without murmurs, gallops or rubs. The abdomen is soft and flat. Bowel sounds are present in all 4 quadrants. She does not have guarding or rebound noted and there are no hernias or masses present. The lower extremities are warm to touch. No edema is present. The skin is warm, dry and intact without lesions or rashes. Results Laboratory Results: 03/09/17 06:00 03/09/17 06:00 03/09/17 03/09/17 06:00 06:00 WBC 13.9 H RBC 2.11 L Hgb 7.4 L Hct 20.6 L MCV 98 H MCH 35.4 H MCHC 36.1 H RDW 15.4 H Plt Count 310 Seg Neutrophils % Not Reportable Lymphocytes % Not Reportable Monocytes % Not Reportable Eosinophils % Not Reportable Basophils % Not Reportable Absolute Neutrophils Not Reportable Absolute Lymphocytes Not Reportable Absolute Monocytes Not Reportable Absolute Eosinophils Not Reportable Absolute Basophils Not Reportable Sodium 142.0 Potassium 3.9 Chloride 111 H Carbon Dioxide 23 Anion Gap 8 BUN 3 L Creatinine 0.47 L Est GFR ( Amer) > 60 Est GFR (Non-Af Amer) > 60 Glucose 82 Calcium 8.2 L Impressions: Chest X-Ray 03/08/17 18:45 IMPRESSION: NO ACUTE CARDIOPULMONARY PROCESS. NO SIGNIFICANT CHANGE FROM YESTERDAY. Assessment & Plan - Diagnosis (1) Sickle cell pain crisis Is this a current diagnosis for this admission?: Yes Plan: Oncology has evaluated the patient this morning. Dr. Baum feels that the patient's Dilaudid needs to be increased. Also, he is going to give the patient a 2 unit packed red blood cell transfusion secondary to a decrease in hematocrit overnight. 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 Dr. Boyce is going to increase her dose of Xarelto today. - Time Time Spent with patient: 15-24 minutes - Inpatient Certification Medical Necessity: Need For IV Fluids, Need for Pain Control
[2017-03-09] MEDS: MAGNESIUM HYDROXIDE SUSP 30 ML UDCUP PO SCH (21:17)
[2017-03-10] MEDS: IPRATROPIUM/ALBUTEROL 0.5-2.5 MG/3 ML AMPUL NEB SCH ×3 (00:09→16:20)
[2017-03-10 00:13] LABS: HEMATOCRIT 27.5 % (36.0-47.0); HGB HCT DIFFERENCE 2.2; MEAN CORPUSCULAR HEMOGLOBIN 33.6 pg (27.0-33.4); MEAN CORPUSCULAR HGB CONC 36.1 g/dL (32.0-36.0); RED BLOOD COUNT 2.96 10^6/uL (3.72-5.28); WHITE BLOOD COUNT 15.3 10^3/uL (4.0-10.5)
[2017-03-10 00:21] LABS: HEMOGLOBIN 9.9 g/dL (12.0-15.5)
[2017-03-10 00:22] LABS: MEAN CORPUSCULAR VOLUME 93 fl (80-97)
[2017-03-10 00:29] LABS: ABSOLUTE EOSINOPHILS# (MANUAL) 2.4 10^3/uL (0.0-0.6); BASOPHILS % (MANUAL) 0 % (0-2); EOSINOPHILS % (MANUAL) 16 % (0-6); LYMPHOCYTES % (MANUAL) 27 % (13-45); NUCLEATED RED BLOOD CELLS 4 /100 WBC (0); TOTAL CELLS COUNTED 100
[2017-03-10 00:32] LABS: POLYCHROMASIA 1+; TARGET CELLS 3+
[2017-03-10 00:33] LABS: ANISOCYTOSIS 1+; POIKILOCYTOSIS 1+
[2017-03-10 00:35] LABS: SCHISTOCYTES SLIGHT
[2017-03-10] MEDS: HYDROMORPHONE HCL INJ/PF 2 MG/ML AMPULE IV PRN ×9 (01:57→23:51)
[2017-03-10 06:40] LABS: HEMATOCRIT 26.9 % (36.0-47.0); HEMOGLOBIN 9.8 g/dL (12.0-15.5); HGB HCT DIFFERENCE 2.5; MEAN CORPUSCULAR HEMOGLOBIN 33.9 pg (27.0-33.4); MEAN CORPUSCULAR HGB CONC 36.3 g/dL (32.0-36.0); MEAN CORPUSCULAR VOLUME 93 fl (80-97); RED BLOOD COUNT 2.89 10^6/uL (3.72-5.28); RED CELL DISTRIBUTION WIDTH 17.3 % (11.5-14.0); WHITE BLOOD COUNT 17.6 10^3/uL (4.0-10.5)
[2017-03-10 07:15] LABS: ABSOLUTE EOSINOPHILS# (MANUAL) 1.4 10^3/uL (0.0-0.6); ANISOCYTOSIS 1+; BAND NEUTROPHILS % (MANUAL) 1 % (3-5); BASOPHILS % (MANUAL) 0 % (0-2); EOSINOPHILS % (MANUAL) 8 % (0-6); LYMPHOCYTES % (MANUAL) 16 % (13-45); NUCLEATED RED BLOOD CELLS 4 /100 WBC (0); TOTAL CELLS COUNTED 100
[2017-03-10 07:17] LABS: POLYCHROMASIA 1+; SCHISTOCYTES 1+; TARGET CELLS 3+
[2017-03-10 07:18] LABS: POIKILOCYTOSIS 1+
--- NOTE | 2017-03-10 08:18 | PDOC PROGRESS REPORT ---
Subjective Progress Note for:: 03/10/17 Subjective:: Doing better, pain better controlled, having some PAPPAS this am so will add midrin to meds today, had BM yesterday Reason For Visit: SSC PAIN CRISIS,BRONCHITIS,TOBACCO,DIABETES Physical Exam Vital Signs: Temp Pulse Resp BP Pulse Ox 98.1 F 78 20 114/65 100 03/10/17 03:48 03/10/17 03:48 03/10/17 03:48 03/10/17 03:48 03/10/17 03:48 Intake & Output 03/09/17 03/10/17 03/11/17 06:59 06:59 06:59 Intake Total 2883 1936 Output Total 1300 3600 Balance 1583 -1664 Weight 59.3 kg 35.9 kg General appearance: PRESENT: no acute distress, well-developed, well-nourished Head exam: PRESENT: atraumatic, normocephalic Eye exam: PRESENT: conjunctiva pink, EOMI, PERRLA. ABSENT: scleral icterus Ear exam: PRESENT: normal external ear exam Mouth exam: PRESENT: moist, tongue midline Neck exam: ABSENT: carotid bruit, JVD, lymphadenopathy, thyromegaly Respiratory exam: PRESENT: clear to auscultation samaria. ABSENT: rales, rhonchi, wheezes Cardiovascular exam: PRESENT: RRR. ABSENT: diastolic murmur, rubs, systolic murmur Pulses: PRESENT: normal dorsalis pedis pul Vascular exam: PRESENT: normal capillary refill GI/Abdominal exam: PRESENT: normal bowel sounds, soft. ABSENT: distended, guarding, mass, organolmegaly, rebound, tenderness Rectal exam: PRESENT: deferred Extremities exam: PRESENT: full ROM. ABSENT: calf tenderness, clubbing, pedal edema Neurological exam: PRESENT: alert, awake, oriented to person, oriented to place , oriented to time, oriented to situation, CN II-XII grossly intact. ABSENT: motor sensory deficit Psychiatric exam: PRESENT: appropriate affect, normal mood. ABSENT: homicidal ideation, suicidal ideation Skin exam: PRESENT: dry, intact, warm. ABSENT: cyanosis, rash Results Laboratory Results: 03/10/17 06:10 03/09/17 06:00 03/09/17 03/09/17 03/10/17 11:02 23:15 06:10 WBC 15.3 H 17.6 H RBC 2.96 L 2.89 L Hgb 9.9 L D 9.8 L Hct 27.5 L 26.9 L MCV 93 D 93 MCH 33.6 H 33.9 H MCHC 36.1 H 36.3 H RDW 17.0 H 17.3 H Plt Count 338 341 Seg Neutrophils % Not Reportable Not Reportable Lymphocytes % Not Reportable Not Reportable Monocytes % Not Reportable Not Reportable Eosinophils % Not Reportable Not Reportable Basophils % Not Reportable Not Reportable Absolute Neutrophils Not Reportable Not Reportable Absolute Lymphocytes Not Reportable Not Reportable Absolute Monocytes Not Reportable Not Reportable Absolute Eosinophils Not Reportable Not Reportable Absolute Basophils Not Reportable Not Reportable Blood Type O POSITIVE Antibody Screen NEGATIVE Impressions: Chest X-Ray 03/08/17 18:45 IMPRESSION: NO ACUTE CARDIOPULMONARY PROCESS. NO SIGNIFICANT CHANGE FROM YESTERDAY. Assessment & Plan - Diagnosis (1) Sickle-cell disease with vaso-occlusive pain Is this a current diagnosis for this admission?: Yes Plan: Improving, added midrin for PAPPSA, con't pain meds, con't other supportive care (2) Anemia Qualifiers: Hemolytic anemia type: other hemoglobinopathy Is this a current diagnosis for this admission?: Yes Plan: Improved post transfusion, con't to monitor
[2017-03-10] MEDS ORDERED: MIDODRINE HCL 5 MG TABLET PO PRN (08:51)
[2017-03-10] MEDS ORDERED: BUTALB/ACETAMINOPHEN/CAFFEINE 1 TAB EACH PO PRN (09:03)
[2017-03-10] MEDS: DOCUSATE SODIUM 100 MG CAPSULE PO SCH ×2 (09:12→18:22)
[2017-03-10] MEDS: RIVAROXABAN 10 MG TABLET PO SCH (09:13)
--- NOTE | 2017-03-10 14:27 | PDOC PROGRESS REPORT ---
Subjective Progress Note for:: 03/10/17 Subjective:: The patient is a 22-year-old female admitted for a sickle cell pain crisis. She is improved overnight. Yesterday, she was complaining of cough, but this has resolved. Now, her only complaint is that she has a severe headache. Her headache is typical for her and Dr. Baum has ordered Midrin. Reason For Visit: SSC PAIN CRISIS,BRONCHITIS,TOBACCO,DIABETES Physical Exam Vital Signs: Temp Pulse Resp BP Pulse Ox 98.1 F 64 15 112/60 99 03/10/17 11:30 03/10/17 11:30 03/10/17 11:30 03/10/17 11:30 03/10/17 11:30 Intake & Output 03/09/17 03/10/17 03/11/17 06:59 06:59 06:59 Intake Total 2883 1936 Output Total 1300 3600 Balance 1583 -1664 Weight 59.3 kg 35.9 kg Additional comments: The patient appears well. She does not appear to be in any distress. Her facial appearance is normal. Her lungs are clear to auscultation bilaterally. Her cardiac exam is regular but I do hear a split S2. I did not pick this up yesterday. The abdomen is benign. Her skin exam is unremarkable. Results Laboratory Results: 03/10/17 06:10 03/09/17 06:00 03/09/17 03/09/17 03/10/17 11:02 23:15 06:10 WBC 15.3 H 17.6 H RBC 2.96 L 2.89 L Hgb 9.9 L D 9.8 L Hct 27.5 L 26.9 L MCV 93 D 93 MCH 33.6 H 33.9 H MCHC 36.1 H 36.3 H RDW 17.0 H 17.3 H Plt Count 338 341 Seg Neutrophils % Not Reportable Not Reportable Lymphocytes % Not Reportable Not Reportable Monocytes % Not Reportable Not Reportable Eosinophils % Not Reportable Not Reportable Basophils % Not Reportable Not Reportable Absolute Neutrophils Not Reportable Not Reportable Absolute Lymphocytes Not Reportable Not Reportable Absolute Monocytes Not Reportable Not Reportable Absolute Eosinophils Not Reportable Not Reportable Absolute Basophils Not Reportable Not Reportable Blood Type O POSITIVE Antibody Screen NEGATIVE Impressions: Chest X-Ray 03/08/17 18:45 IMPRESSION: NO ACUTE CARDIOPULMONARY PROCESS. NO SIGNIFICANT CHANGE FROM YESTERDAY. Assessment & Plan - Diagnosis (1) Sickle cell pain crisis Is this a current diagnosis for this admission?: Yes Plan: The patient's dose of Dilaudid was increased yesterday per oncology. This appears to be improving the patient's level of comfort and pain control. 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 Dr. Boyce has increased her dose of Xarelto. - Time Time Spent with patient: 15-24 minutes - Inpatient Certification Medical Necessity: Need for Pain Control
[2017-03-10] MEDS: MAGNESIUM HYDROXIDE SUSP 30 ML UDCUP PO SCH (21:36)
[2017-03-11] MEDS: IPRATROPIUM/ALBUTEROL 0.5-2.5 MG/3 ML AMPUL NEB SCH ×3 (00:03→16:47)
[2017-03-11] MEDS: HYDROMORPHONE HCL INJ/PF 2 MG/ML AMPULE IV PRN ×8 (02:54→23:37)
[2017-03-11 06:54] LABS: HEMATOCRIT 27.3 % (36.0-47.0); HGB HCT DIFFERENCE 2.7; MEAN CORPUSCULAR HEMOGLOBIN 33.9 pg (27.0-33.4); MEAN CORPUSCULAR HGB CONC 36.7 g/dL (32.0-36.0); MEAN CORPUSCULAR VOLUME 92 fl (80-97); RED BLOOD COUNT 2.96 10^6/uL (3.72-5.28); RED CELL DISTRIBUTION WIDTH 18.3 % (11.5-14.0); WHITE BLOOD COUNT 15.7 10^3/uL (4.0-10.5)
[2017-03-11 07:17] LABS: LYMPHOCYTES % (MANUAL) 31 % (13-45); TOTAL CELLS COUNTED 100
[2017-03-11 07:18] LABS: BASOPHILS % (MANUAL) 0 % (0-2); EOSINOPHILS % (MANUAL) 19 % (0-6); NUCLEATED RED BLOOD CELLS 5 /100 WBC (0)
[2017-03-11 07:20] LABS: ANISOCYTOSIS 2+; POIKILOCYTOSIS 1+; POLYCHROMASIA SLIGHT; TARGET CELLS 1+
--- NOTE | 2017-03-11 08:06 | PDOC PROGRESS REPORT ---
Subjective Progress Note for:: 03/11/17 Subjective:: No acute events overnight, still w/ considerable pain, did not get much sleep last night, I will increase dilaudid today, pt having BMs appropriately, nausea controlled, hb approp post transfusion Reason For Visit: SSC PAIN CRISIS,BRONCHITIS,TOBACCO,DIABETES Physical Exam Vital Signs: Temp Pulse Resp BP Pulse Ox 98.7 F 79 16 111/63 92 03/11/17 03:15 03/11/17 07:55 03/11/17 07:55 03/11/17 03:15 03/11/17 07:55 Intake & Output 03/10/17 03/11/17 03/12/17 06:59 06:59 06:59 Intake Total 1936 320 Output Total 3600 1500 Balance -1664 -1180 Weight 35.9 kg 35.9 kg General appearance: PRESENT: no acute distress, well-developed, well-nourished Head exam: PRESENT: atraumatic, normocephalic Eye exam: PRESENT: conjunctiva pink, EOMI, PERRLA. ABSENT: scleral icterus Ear exam: PRESENT: normal external ear exam Mouth exam: PRESENT: moist, tongue midline Neck exam: ABSENT: carotid bruit, JVD, lymphadenopathy, thyromegaly Respiratory exam: PRESENT: clear to auscultation samaria. ABSENT: rales, rhonchi, wheezes Cardiovascular exam: PRESENT: RRR. ABSENT: diastolic murmur, rubs, systolic murmur Pulses: PRESENT: normal dorsalis pedis pul Vascular exam: PRESENT: normal capillary refill GI/Abdominal exam: PRESENT: normal bowel sounds, soft. ABSENT: distended, guarding, mass, organolmegaly, rebound, tenderness Rectal exam: PRESENT: deferred Extremities exam: PRESENT: full ROM. ABSENT: calf tenderness, clubbing, pedal edema Neurological exam: PRESENT: alert, awake, oriented to person, oriented to place , oriented to time, oriented to situation, CN II-XII grossly intact. ABSENT: motor sensory deficit Psychiatric exam: PRESENT: appropriate affect, normal mood. ABSENT: homicidal ideation, suicidal ideation Skin exam: PRESENT: dry, intact, warm. ABSENT: cyanosis, rash Results Laboratory Results: 03/11/17 06:35 03/09/17 06:00 03/11/17 06:35 WBC 15.7 H RBC 2.96 L Hgb 10.0 L Hct 27.3 L MCV 92 MCH 33.9 H MCHC 36.7 H RDW 18.3 H Plt Count 388 Seg Neutrophils % Not Reportable Lymphocytes % Not Reportable Monocytes % Not Reportable Eosinophils % Not Reportable Basophils % Not Reportable Absolute Neutrophils Not Reportable Absolute Lymphocytes Not Reportable Absolute Monocytes Not Reportable Absolute Eosinophils Not Reportable Absolute Basophils Not Reportable Impressions: Chest X-Ray 03/08/17 18:45 IMPRESSION: NO ACUTE CARDIOPULMONARY PROCESS. NO SIGNIFICANT CHANGE FROM YESTERDAY. Assessment & Plan - Diagnosis (1) Sickle-cell disease with vaso-occlusive pain Is this a current diagnosis for this admission?: Yes Plan: Increase IV dilaudid dose, con't other supportive rx, will probably need 24-48 hours more inpt based on pain needs (2) Anemia Qualifiers: Hemolytic anemia type: other hemoglobinopathy Is this a current diagnosis for this admission?: Yes Plan: Hb stable post tx, cont to monitor, change blood draws to every other day, d/c daily cmp.
[2017-03-11] MEDS: DOCUSATE SODIUM 100 MG CAPSULE PO SCH ×2 (11:15→18:02)
[2017-03-11] MEDS: RIVAROXABAN 10 MG TABLET PO SCH (11:15)
--- NOTE | 2017-03-11 17:21 | PDOC PROGRESS REPORT ---
Subjective Progress Note for:: 03/11/17 Subjective:: The patient is a 22-year-old female with a history of Sickle cell disease Tobacco dependence She was admitted on March 08 with a 7 day history of diffuse back shoulder and leg pain consistent with previous episodes of sickle cell pain crisis. She denied cough fever nausea vomiting or diaphoresis. Her hemoglobin on admission was 9.4 with a reticulocyte count of 4.4. She was started on IV fluids as well as opiates for pain management. She is being followed by the hematology service. Her IV Dilaudid dose was adjusted for better pain control this morning. She has no complaints at present. The patient reports normal bowel movements. Appetite is fair. Reason For Visit: SSC PAIN CRISIS,BRONCHITIS,TOBACCO,DIABETES Physical Exam Vital Signs: Temp Pulse Resp BP Pulse Ox 98.1 F 67 16 118/62 94 03/11/17 15:22 03/11/17 15:22 03/11/17 15:22 03/11/17 15:22 03/11/17 15:22 Intake & Output 03/10/17 03/11/17 03/12/17 06:59 06:59 06:59 Intake Total 1936 320 440 Output Total 3600 1500 1000 Balance -1664 -1180 -560 Weight 35.9 kg 35.9 kg Additional comments: Young -[place] female sitting up in bed not in acute distress Pupils: Equal and reactive to light, pink oropharyngeal mucosa with no lesions, no conjunctival pallor, normal external ears and nose Lungs: She has bilateral scattered rhonchi, normal respiratory effort no wheezing or crackles heard Cardiac: S1-S2 regular no murmurs heard no peripheral edema no cyanosis no calf tenderness Abdomen: Soft, no focal tenderness, normal bowel sounds Skin: Warm and dry Results Laboratory Results: 03/11/17 06:35 03/09/17 06:00 03/11/17 06:35 WBC 15.7 H RBC 2.96 L Hgb 10.0 L Hct 27.3 L MCV 92 MCH 33.9 H MCHC 36.7 H RDW 18.3 H Plt Count 388 Seg Neutrophils % Not Reportable Lymphocytes % Not Reportable Monocytes % Not Reportable Eosinophils % Not Reportable Basophils % Not Reportable Absolute Neutrophils Not Reportable Absolute Lymphocytes Not Reportable Absolute Monocytes Not Reportable Absolute Eosinophils Not Reportable Absolute Basophils Not Reportable Impressions: Chest X-Ray 03/08/17 18:45 IMPRESSION: NO ACUTE CARDIOPULMONARY PROCESS. NO SIGNIFICANT CHANGE FROM YESTERDAY. Assessment & Plan - Diagnosis (1) Dehydration Is this a current diagnosis for this admission?: Yes Plan: Improved (2) Intractable pain Is this a current diagnosis for this admission?: Yes Plan: Continue IV Dilaudid as needed for pain (3) Sickle cell pain crisis Is this a current diagnosis for this admission?: Yes Plan: Supportive care as outlined above. - Time Time Spent with patient: Less than 15 minutes
[2017-03-11] MEDS: SODIUM CHLORIDE NASAL SPRAY 44 ML NAREB SCH (18:02)
[2017-03-11] MEDS: MAGNESIUM HYDROXIDE SUSP 30 ML UDCUP PO SCH (21:32)
[2017-03-12] MEDS: IPRATROPIUM/ALBUTEROL 0.5-2.5 MG/3 ML AMPUL NEB SCH ×3 (00:11→16:26)
[2017-03-12] MEDS: HYDROMORPHONE HCL INJ/PF 2 MG/ML AMPULE IV PRN ×9 (03:37→23:21)
--- NOTE | 2017-03-12 07:53 | PDOC PROGRESS REPORT ---
Subjective Progress Note for:: 03/12/17 Subjective:: No acute events overnight, pain better today Reason For Visit: SSC PAIN CRISIS,BRONCHITIS,TOBACCO,DIABETES Physical Exam Vital Signs: Temp Pulse Resp BP Pulse Ox 98.6 F 63 17 107/53 L 100 03/12/17 03:34 03/12/17 07:00 03/12/17 03:34 03/12/17 03:34 03/12/17 03:34 Intake & Output 03/11/17 03/12/17 03/13/17 06:59 06:59 06:59 Intake Total 320 1080 Output Total 1500 3000 Balance -1180 -1920 Weight 35.9 kg 36.4 kg General appearance: PRESENT: no acute distress, well-developed, well-nourished Head exam: PRESENT: atraumatic, normocephalic Eye exam: PRESENT: conjunctiva pink, EOMI, PERRLA. ABSENT: scleral icterus Ear exam: PRESENT: normal external ear exam Mouth exam: PRESENT: moist, tongue midline Neck exam: ABSENT: carotid bruit, JVD, lymphadenopathy, thyromegaly Respiratory exam: PRESENT: clear to auscultation samaria. ABSENT: rales, rhonchi, wheezes Cardiovascular exam: PRESENT: RRR. ABSENT: diastolic murmur, rubs, systolic murmur Pulses: PRESENT: normal dorsalis pedis pul Vascular exam: PRESENT: normal capillary refill GI/Abdominal exam: PRESENT: normal bowel sounds, soft. ABSENT: distended, guarding, mass, organolmegaly, rebound, tenderness Rectal exam: PRESENT: deferred Extremities exam: PRESENT: full ROM. ABSENT: calf tenderness, clubbing, pedal edema Neurological exam: PRESENT: alert, awake, oriented to person, oriented to place , oriented to time, oriented to situation, CN II-XII grossly intact. ABSENT: motor sensory deficit Psychiatric exam: PRESENT: appropriate affect, normal mood. ABSENT: homicidal ideation, suicidal ideation Skin exam: PRESENT: dry, intact, warm. ABSENT: cyanosis, rash Results Laboratory Results: 03/11/17 06:35 03/09/17 06:00 Impressions: Chest X-Ray 03/08/17 18:45 IMPRESSION: NO ACUTE CARDIOPULMONARY PROCESS. NO SIGNIFICANT CHANGE FROM YESTERDAY. Assessment & Plan - Diagnosis (1) Sickle-cell disease with vaso-occlusive pain Is this a current diagnosis for this admission?: Yes Plan: Cont current level of dilaudid, if pt con't to improve will decrease by tomorrow , con't other supportive measures (2) Anemia Qualifiers: Hemolytic anemia type: other hemoglobinopathy Is this a current diagnosis for this admission?: Yes Plan: Stable, will probably not need any further hopefully on this admit - Time Time Spent with patient: 15-24 minutes - Inpatient Certification Based on my medical assessment, after consideration of the patient's comorbidities, presenting symptoms, or acuity I expect that the services needed warrant INPATIENT care.: Yes I certify that my determination is in accordance with my understanding of Medicare's requirements for reasonable and necessary INPATIENT services [42 CFR 412.3e].: Yes Medical Necessity: Need For IV Fluids, Need for Pain Control
[2017-03-12] MEDS: DOCUSATE SODIUM 100 MG CAPSULE PO SCH ×2 (10:02→17:58)
[2017-03-12] MEDS: RIVAROXABAN 10 MG TABLET PO SCH (10:03)
[2017-03-12] MEDS: SODIUM CHLORIDE NASAL SPRAY 44 ML NAREB SCH ×2 (10:05→18:04)
--- NOTE | 2017-03-12 19:04 | PDOC PROGRESS REPORT ---
Subjective Progress Note for:: 03/12/17 Reason For Visit: SSC PAIN CRISIS,BRONCHITIS,TOBACCO,DIABETES Pain is relatively well controlled with Dilaudid. She has been constipated for the past 2 days. Physical Exam Vital Signs: Temp Pulse Resp BP Pulse Ox 97.8 F 65 20 106/51 L 100 03/12/17 15:23 03/12/17 16:26 03/12/17 16:26 03/12/17 15:23 03/12/17 16:26 Intake & Output 03/11/17 03/12/17 03/13/17 06:59 06:59 06:59 Intake Total 320 1080 300 Output Total 1500 3000 600 Balance -1180 -1920 -300 Weight 35.9 kg 36.4 kg Additional comments: Young -Congolese female lying in bed Lungs: Clear to auscultation bilaterally normal respiratory effort Cardiac: S1-S2 regular Abdomen: Soft, no focal tenderness, normal bowel sounds Results Laboratory Results: 03/11/17 06:35 03/09/17 06:00 Impressions: Chest X-Ray 03/08/17 18:45 IMPRESSION: NO ACUTE CARDIOPULMONARY PROCESS. NO SIGNIFICANT CHANGE FROM YESTERDAY. Assessment & Plan - Diagnosis (1) Dehydration Is this a current diagnosis for this admission?: Yes Plan: Improved (2) Intractable pain Is this a current diagnosis for this admission?: Yes Plan: Continue Dilaudid as needed. (3) Sickle cell pain crisis Is this a current diagnosis for this admission?: Yes - Time Time Spent with patient: Less than 15 minutes
[2017-03-12] MEDS ORDERED: BISACODYL 5 MG TABEC PO ONE (19:05)
[2017-03-12] MEDS: MAGNESIUM HYDROXIDE SUSP 30 ML UDCUP PO SCH (23:19)
[2017-03-13] MEDS: HYDROMORPHONE HCL INJ/PF 2 MG/ML AMPULE IV PRN ×4 (04:58→15:47)
[2017-03-13 06:31] LABS: HEMATOCRIT 31.8 % (36.0-47.0); HEMOGLOBIN 11.4 g/dL (12.0-15.5); HGB HCT DIFFERENCE 2.4; MEAN CORPUSCULAR HEMOGLOBIN 34.1 pg (27.0-33.4); MEAN CORPUSCULAR VOLUME 95 fl (80-97); RED BLOOD COUNT 3.35 10^6/uL (3.72-5.28); RED CELL DISTRIBUTION WIDTH 18.3 % (11.5-14.0); WHITE BLOOD COUNT 14.1 10^3/uL (4.0-10.5)
[2017-03-13 06:56] LABS: ABSOLUTE EOSINOPHILS# (MANUAL) 2.5 10^3/uL (0.0-0.6); BASOPHILS % (MANUAL) 0 % (0-2); EOSINOPHILS % (MANUAL) 18 % (0-6); LYMPHOCYTES % (MANUAL) 23 % (13-45); TOTAL CELLS COUNTED 100
[2017-03-13 06:58] LABS: NUCLEATED RED BLOOD CELLS 1 /100 WBC (0)
[2017-03-13 06:59] LABS: ANISOCYTOSIS 2+; POIKILOCYTOSIS 1+; TARGET CELLS 1+
[2017-03-13] MEDS ORDERED: HYDROMORPHONE HCL 2 MG TABLET PO PRN (08:01)
[2017-03-13] MEDS: IPRATROPIUM/ALBUTEROL 0.5-2.5 MG/3 ML AMPUL NEB SCH ×3 (08:02→15:36)
--- NOTE | 2017-03-13 08:29 | PDOC PROGRESS REPORT ---
Subjective Progress Note for:: 03/13/17 Subjective:: Patient doing much better this morning, I will be planning on decreasing IV Dilaudid, adding oral Dilaudid, over next 24 hours if this is tolerable we will recommend discharge tomorrow, and I will give her a prescription for oral pain medication. Reason For Visit: SSC PAIN CRISIS,BRONCHITIS,TOBACCO,DIABETES Physical Exam Vital Signs: Temp Pulse Resp BP Pulse Ox 98.8 F 80 18 107/58 L 97 03/13/17 04:00 03/13/17 08:04 03/13/17 08:04 03/13/17 04:49 03/13/17 08:04 Intake & Output 03/12/17 03/13/17 03/14/17 06:59 06:59 06:59 Intake Total 1080 1080 Output Total 3000 2200 Balance -1920 -1120 Weight 36.4 kg General appearance: PRESENT: no acute distress, well-developed, well-nourished Head exam: PRESENT: atraumatic, normocephalic Eye exam: PRESENT: conjunctiva pink, EOMI, PERRLA. ABSENT: scleral icterus Ear exam: PRESENT: normal external ear exam Mouth exam: PRESENT: moist, tongue midline Neck exam: ABSENT: carotid bruit, JVD, lymphadenopathy, thyromegaly Respiratory exam: PRESENT: clear to auscultation samaria. ABSENT: rales, rhonchi, wheezes Cardiovascular exam: PRESENT: RRR. ABSENT: diastolic murmur, rubs, systolic murmur Pulses: PRESENT: normal dorsalis pedis pul Vascular exam: PRESENT: normal capillary refill GI/Abdominal exam: PRESENT: normal bowel sounds, soft. ABSENT: distended, guarding, mass, organolmegaly, rebound, tenderness Rectal exam: PRESENT: deferred Extremities exam: PRESENT: full ROM. ABSENT: calf tenderness, clubbing, pedal edema Neurological exam: PRESENT: alert, awake, oriented to person, oriented to place , oriented to time, oriented to situation, CN II-XII grossly intact. ABSENT: motor sensory deficit Psychiatric exam: PRESENT: appropriate affect, normal mood. ABSENT: homicidal ideation, suicidal ideation Skin exam: PRESENT: dry, intact, warm. ABSENT: cyanosis, rash Results Laboratory Results: 03/13/17 05:10 03/09/17 06:00 03/13/17 05:10 WBC 14.1 H RBC 3.35 L Hgb 11.4 L Hct 31.8 L MCV 95 MCH 34.1 H MCHC 36.0 RDW 18.3 H Plt Count 454 H Seg Neutrophils % Not Reportable Lymphocytes % Not Reportable Monocytes % Not Reportable Eosinophils % Not Reportable Basophils % Not Reportable Absolute Neutrophils Not Reportable Absolute Lymphocytes Not Reportable Absolute Monocytes Not Reportable Absolute Eosinophils Not Reportable Absolute Basophils Not Reportable Impressions: Chest X-Ray 03/08/17 18:45 IMPRESSION: NO ACUTE CARDIOPULMONARY PROCESS. NO SIGNIFICANT CHANGE FROM YESTERDAY. Assessment & Plan - Diagnosis (1) Sickle-cell disease with vaso-occlusive pain Is this a current diagnosis for this admission?: Yes Plan: Improving, making changes on IV pain medications, continue with other supportive measures (2) Anemia Qualifiers: Hemolytic anemia type: other hemoglobinopathy Is this a current diagnosis for this admission?: Yes Plan: ZENON globin stable posttransfusion, no need for transfusion at this point - Time Time Spent with patient: 15-24 minutes Anticipated discharge: Home Within: within 24 hours - Inpatient Certification Based on my medical assessment, after consideration of the patient's comorbidities, presenting symptoms, or acuity I expect that the services needed warrant INPATIENT care.: Yes I certify that my determination is in accordance with my understanding of Medicare's requirements for reasonable and necessary INPATIENT services [42 CFR 412.3e].: Yes Medical Necessity: Need For IV Fluids, Need for Pain Control
[2017-03-13] MEDS: SODIUM CHLORIDE NASAL SPRAY 44 ML NAREB SCH ×2 (09:18→18:08)
[2017-03-13] MEDS: DOCUSATE SODIUM 100 MG CAPSULE PO SCH ×2 (09:18→18:04)
--- NOTE | 2017-03-13 16:20 | PDOC PROGRESS REPORT ---
Subjective Progress Note for:: 03/13/17 Subjective:: The patient is a 22-year-old female with a history of Sickle cell disease Tobacco dependence She was admitted on March 08 with a 7 day history of diffuse back shoulder and leg pain consistent with previous episodes of sickle cell pain crisis. She denied cough fever nausea vomiting or diaphoresis. Her hemoglobin on admission was 9.4 with a reticulocyte count of 4.4. She was started on IV fluids as well as opiates for pain management. She is being followed by the hematology service. Her IV Dilaudid dose was adjusted for better pain control this morning. Pain is reasonably well controlled. This is being managed by Dr. Baum Reason For Visit: SSC PAIN CRISIS,BRONCHITIS,TOBACCO,DIABETES Physical Exam Vital Signs: Temp Pulse Resp BP Pulse Ox 98.7 F 88 16 103/60 96 03/13/17 11:33 03/13/17 14:00 03/13/17 11:33 03/13/17 11:33 03/13/17 11:33 Intake & Output 03/12/17 03/13/17 03/14/17 06:59 06:59 06:59 Intake Total 1080 1080 Output Total 3000 2200 Balance -1920 -1120 Weight 36.4 kg Additional comments: Young -Polish female lying in bed not in acute distress Lungs: Normal respiratory effort clear to auscultation bilaterally Cardiac: S1 is regular no peripheral edema Skin: Warm and dry Results Laboratory Results: 03/13/17 05:10 03/09/17 06:00 03/13/17 05:10 WBC 14.1 H RBC 3.35 L Hgb 11.4 L Hct 31.8 L MCV 95 MCH 34.1 H MCHC 36.0 RDW 18.3 H Plt Count 454 H Seg Neutrophils % Not Reportable Lymphocytes % Not Reportable Monocytes % Not Reportable Eosinophils % Not Reportable Basophils % Not Reportable Absolute Neutrophils Not Reportable Absolute Lymphocytes Not Reportable Absolute Monocytes Not Reportable Absolute Eosinophils Not Reportable Absolute Basophils Not Reportable Impressions: Chest X-Ray 03/08/17 18:45 IMPRESSION: NO ACUTE CARDIOPULMONARY PROCESS. NO SIGNIFICANT CHANGE FROM YESTERDAY. Assessment & Plan - Diagnosis (1) Dehydration Is this a current diagnosis for this admission?: Yes (2) Intractable pain Is this a current diagnosis for this admission?: Yes (3) Sickle cell pain crisis Is this a current diagnosis for this admission?: Yes - Time Time Spent with patient: Less than 15 minutes - Plan Summary Plan Summary: Continue current management with analgesics.
[2017-03-13] MEDS ORDERED: RIVAROXABAN 10 MG TABLET PO SCH (17:00)
[2017-03-14] MEDS: MAGNESIUM HYDROXIDE SUSP 30 ML UDCUP PO SCH (00:26)
[2017-03-14] MEDS: HYDROMORPHONE HCL INJ/PF 2 MG/ML AMPULE IV PRN ×3 (00:26→11:54)
[2017-03-14] MEDS: IPRATROPIUM/ALBUTEROL 0.5-2.5 MG/3 ML AMPUL NEB SCH ×2 (00:33→08:14)
--- NOTE | 2017-03-14 08:24 | PDOC PROGRESS REPORT ---
Subjective Progress Note for:: 03/14/17 Subjective:: Pt doing better this am, did not need pain meds since 12 midnight last night, having some pain this am. Reason For Visit: SSC PAIN CRISIS,BRONCHITIS,TOBACCO,DIABETES Physical Exam Vital Signs: Temp Pulse Resp BP Pulse Ox 98.2 F 90 16 105/58 L 100 03/14/17 00:21 03/14/17 02:00 03/14/17 00:35 03/14/17 00:21 03/14/17 00:21 Intake & Output 03/13/17 03/14/17 03/15/17 06:59 06:59 06:59 Intake Total 1800 720 Output Total 3200 1200 Balance -1400 -480 Weight 32.9 kg 32.9 kg General appearance: PRESENT: no acute distress, well-developed, well-nourished Head exam: PRESENT: atraumatic, normocephalic Eye exam: PRESENT: conjunctiva pink, EOMI, PERRLA. ABSENT: scleral icterus Ear exam: PRESENT: normal external ear exam Mouth exam: PRESENT: moist, tongue midline Neck exam: ABSENT: carotid bruit, JVD, lymphadenopathy, thyromegaly Respiratory exam: PRESENT: clear to auscultation samaria. ABSENT: rales, rhonchi, wheezes Cardiovascular exam: PRESENT: RRR. ABSENT: diastolic murmur, rubs, systolic murmur Pulses: PRESENT: normal dorsalis pedis pul Vascular exam: PRESENT: normal capillary refill GI/Abdominal exam: PRESENT: normal bowel sounds, soft. ABSENT: distended, guarding, mass, organolmegaly, rebound, tenderness Rectal exam: PRESENT: deferred Extremities exam: PRESENT: full ROM. ABSENT: calf tenderness, clubbing, pedal edema Neurological exam: PRESENT: alert, awake, oriented to person, oriented to place , oriented to time, oriented to situation, CN II-XII grossly intact. ABSENT: motor sensory deficit Psychiatric exam: PRESENT: appropriate affect, normal mood. ABSENT: homicidal ideation, suicidal ideation Skin exam: PRESENT: dry, intact, warm. ABSENT: cyanosis, rash Results Laboratory Results: 03/13/17 05:10 03/09/17 06:00 Impressions: Chest X-Ray 03/08/17 18:45 IMPRESSION: NO ACUTE CARDIOPULMONARY PROCESS. NO SIGNIFICANT CHANGE FROM YESTERDAY. Assessment & Plan - Diagnosis (1) Sickle-cell disease with vaso-occlusive pain Is this a current diagnosis for this admission?: Yes Plan: Gave pt rx for dilaudid, will give 1 dose IV pain med this am, d/c home later today (2) Anemia Qualifiers: Hemolytic anemia type: other hemoglobinopathy Is this a current diagnosis for this admission?: Yes Plan: Hb stable, no tx needed - Time Time Spent with patient: 15-24 minutes
[2017-03-14] MEDS: DOCUSATE SODIUM 100 MG CAPSULE PO SCH (09:29)
[2017-03-14] MEDS: SODIUM CHLORIDE NASAL SPRAY 44 ML NAREB SCH (09:29)
[2017-03-14 14:14] VITALS: BP 107/58
--- NOTE | 2017-03-14 15:29 | PDOC DISCHARGE SUMMARY ---
General - Admit/Disc Date/PCP Admission Date/Primary Care Provider: 03/08/17 19:29 JOIE MOREIRA MD Discharge Date: 03/14/17 - Discharge Diagnosis (1) Dehydration Is this a current diagnosis for this admission?: Yes (2) Intractable pain Is this a current diagnosis for this admission?: Yes (3) Sickle cell pain crisis Is this a current diagnosis for this admission?: Yes - Additional Information Resuscitation Status: Full Code Discharge Diet: As Tolerated Discharge Activity: Activity As Tolerated Prescriptions: Hydromorphone HCl [Dilaudid 2 mg Tablet] 4 mg PO Q6HP PRN #1 tablet PRN Reason: Home Medications: Folic Acid 0.4 mg PO DAILY 03/09/17 Hydroxyurea [Hydrea 500 mg Capsule] 500 mg PO Q12 03/09/17 Rivaroxaban [Xarelto 10 mg Tablet] 20 mg PO DAILY 03/09/17 Acetaminophen [Tylenol 325 mg Tablet] 650 mg PO Q4HP PRN tablet 03/14/17 Docusate Sodium [Colace 100 mg Capsule] 100 mg PO BID capsule 03/14/17 Hydromorphone HCl [Dilaudid 2 mg Tablet] 4 mg PO Q6HP PRN #1 tablet 03/14/17 Polyethylene Glycol 3350 [Miralax Powder 17 gm/Packet] 17 gm PO DAILYP PRN powd.pack 03/14/17 Rivaroxaban [Xarelto 10 mg Tablet] 20 mg PO WSUPPER tablet 03/14/17 History of Present Illness History of Present Illness: The patient is a 22-year-old female with a history of Sickle cell disease Tobacco dependence. She was admitted on March 08 with a 7 day history of diffuse back, shoulder and leg pain consistent with previous episodes of sickle cell pain crisis. She denied cough shortness of breath nausea vomiting or diaphoresis. Her hemoglobin on admission was 9.4 with a reticulocyte count of 4.4. She was started on IV fluids and opiates for pain management. She was followed by Dr. Moreira in the hospital and saved intravenous Dilaudid for optimal pain control. Today she is feeling better and is ready for discharge. She was prescribed 60 tablets of Dilaudid 2 mg to be taken every 6 hours as needed by Dr. Moreira. He will follow up with her in 2 weeks. Physical Exam Vital Signs: Temp Pulse Resp BP Pulse Ox 98.4 F 99 18 107/58 L 98 03/14/17 14:00 03/14/17 14:00 03/14/17 14:00 03/14/17 14:00 03/14/17 14:00 Intake & Output 03/13/17 03/14/17 03/15/17 06:59 06:59 06:59 Intake Total 1800 720 Output Total 3200 1200 Balance -1400 -480 Weight 32.9 kg 32.9 kg Additional comments: Young -Nepalese female sitting up in bed not in acute distress Lungs: Normal respiratory effort, clear to auscultation bilaterally Results Laboratory Results: 03/13/17 05:10 03/09/17 06:00 Impressions: Chest X-Ray 03/08/17 18:45 IMPRESSION: NO ACUTE CARDIOPULMONARY PROCESS. NO SIGNIFICANT CHANGE FROM YESTERDAY. Plan Discharge Plan: Discharge home and follow-up with her physician as an outpatient. Time Spent: Less than 30 Minutes
== END 2017-03-14 15:55 | disposition home or self-care (01) | DRG 812 ==
LOC: ER 14:42 → OBSVTOIN 19:29 → EH 19:29 → 4W 21:10 → 4N 03-12 15:57
PROVIDERS: ADMIT Internal Medicine; ATTEND Internal Medicine
PROC: 30233N1 Transfusion of Nonautologous Red Blood Cells into Peripheral Vein, Percutaneous Approach (ICD-10-PCS; principal; 2017-03-09)
DX: D57.00 Hb-SS disease with crisis, unspecified (principal); G89.4 Chronic pain syndrome; E86.0 Dehydration; F32.9 Major depressive disorder, single episode, unspecified; F17.200 Nicotine dependence, unspecified, uncomplicated; R05 Cough; K59.00 Constipation, unspecified; Z86.718 Personal history of other venous thrombosis and embolism; Z79.02 Long term (current) use of antithrombotics/antiplatelets; Z90.49 Acquired absence of other specified parts of digestive tract; Z82.49 Family history of ischemic heart disease and other diseases of the circulatory system; Z88.6 Allergy status to analgesic agent; Z91.018 Allergy to other foods
CPT/HCPCS: 36415; 36430; 36591; 71020; 80048; 80053; 81001; 81025; 85025; 85045; 86850; 86900; 86901; 86902; 86920; 94640; 94667; 94668; 96361; 96374; 96375; 96376; 99285; J1170; J1200; J3490; J7030; J7620; P9016

== ENCOUNTER 2017-03-20 07:42 | Emergency (ER) | payer MEDICAID ==
[2017-03-20] MEDS ORDERED: NORMAL SALINE 1000 ML 1,000 ML IV ONE (08:04)
[2017-03-20] MEDS ORDERED: HYDROMORPHONE HCL INJ/PF 2 MG/ML AMPULE IV ONE (08:04)
--- NOTE | 2017-03-20 08:05 | ER Document Report ---
ED General - General Chief Complaint: Sickle Cell Crisis Stated Complaint: BACK PAIN,CHEST PAIN Time Seen by Provider: 03/20/17 08:02 Notes: Patient is a 22-year-old female who returns emergency department complaining of chest wall and back pain. Patient states that she was discharged on March 14 after admission for sickle cell pain crisis and she has not been able to take her home pain medications due to readied was not able to fill them. She states she has not called them since Friday. She denies any trauma, fall, any abnormal physical activity. She states that she is feeling about the same as when she was discharged. She denies any deep substernal chest pain, nausea, vomiting, flank pain. TRAVEL OUTSIDE OF THE [place] IN LAST 30 DAYS: No - Related Data Allergies/Adverse Reactions: morphine Adverse Reaction (Severe, Verified 03/20/17 07:44) RASH,SWELLING jacob peppers Adverse Reaction (Severe, Uncoded 03/20/17 07:44) throat closes Past Medical History - Social History Smoking Status: Never Smoker Family History: Hypertension, Other - Sickle cell - Past Medical History Cardiac Medical History: Denies: Hx Coronary Artery Disease, Hx Heart Attack, Hx Hypertension Pulmonary Medical History: Reports: Hx Pneumonia Denies: Hx Asthma, Hx Bronchitis, Hx COPD Neurological Medical History: Denies: Hx Cerebrovascular Accident, Hx Seizures Renal/ Medical History: Denies: Hx Peritoneal Dialysis Musculoskeltal Medical History: Denies Hx Arthritis Psychiatric Medical History: Reports: Hx Anxiety, Hx Depression Past Surgical History: Reports: Hx Cholecystectomy - 06/28/2015, Hx Vascular Surgery - port put in December, - Immunizations Immunizations up to date: Yes Hx Diphtheria, Pertussis, Tetanus Vaccination: Yes Review of Systems - Review of Systems Constitutional: No symptoms reported Cardiovascular: See HPI Respiratory: See HPI Gastrointestinal: See HPI Musculoskeletal: See HPI -: Yes All other systems reviewed and negative Physical Exam - Vital signs Vitals: Temp Pulse Resp BP Pulse Ox 98.5 F 101 H 18 117/57 L 99 03/20/17 07:47 03/20/17 07:47 03/20/17 07:47 03/20/17 07:47 03/20/17 07:47 - Notes Notes: PHYSICAL EXAM GENERAL: Alert, interacts well. NECK: Full range of motion. Supple. Trachea midline. LUNGS: Clear to auscultation bilaterally, no wheezes, rales, or rhonchi. No respiratory distress. HEART: Chest wall pain reproducible palpation without any deformities, ecchymosis, edema, crepitus. Regular rate and rhythm. No murmurs, gallops, or rubs. ABDOMEN: Soft, nondistended, nontender. No guarding, rebound, or rigidity.. Bowel sounds present in all 4 quadrants. EXTREMITIES: Moves all 4 extremities spontaneously. No edema, radial and dorsalis pedis pulses 2/4 bilaterally. No cyanosis. Back: Paralumbar muscular tenderness with pain reproducible palpation. No spinous process tenderness. NEUROLOGICAL: Alert and oriented x4. Normal speech. PSYCH: Normal affect, normal mood. SKIN: Warm, dry, normal turgor. No rashes or lesions noted. Course - Re-evaluation Re-evalutation: 03/20/17 09:58 Patient is a 22-year-old female who is hemodynamically stable, no acute distress and afebrile. Patient does not appear to be in any concern for sickle cell crisis. Reticulocyte count 0.075. Patient has no evidence of an aplastic crisis on labs. History, physical exam and vitals are not consistent with acute chest syndrome. Vitals have remained within normal limits here in the emergency department. Patient's pain has been able to be controlled using IV analgesia. The patient is agreeable to discharge home at this time. I recommended that they follow closely with their primary systems integrator Dr. Salas on March 28. Return precautions have been reviewed and discussed and patient has verbalized indications to return to the emergency department. - Vital Signs Vital signs: Temp Pulse Resp BP Pulse Ox 98.5 F 101 H 18 107/55 L 99 03/20/17 07:47 03/20/17 07:47 03/20/17 07:47 03/20/17 08:03 03/20/17 07:47 - Laboratory Result Diagrams: 03/20/17 08:35 03/20/17 08:35 Laboratory results interpreted by me: 03/20/17 03/20/17 08:35 08:35 WBC 15.9 H RBC 3.18 L Hgb 10.6 L Hct 29.4 L RDW 16.3 H Band Neutrophils % 2 L Abs Neuts (Manual) 11.4 H Sodium 145.8 H Chloride 111 H BUN 6 L Total Bilirubin 2.8 H Discharge - Discharge Clinical Impression: Sickle-cell disease with pain Condition: Stable Disposition: HOME, SELF-CARE Additional Instructions: You were seen today for sickle cell pain crisis. Please follow-up with your systems integrator. Returning to the ED if you have worsening pain, fever greater than 100.4, shortness of breath, persistent vomiting, or any other symptoms that are concerning to you. Please picker and sorter load and unload your chronic pain medications from your local pharmacy and take as directed Forms: Return to Work Referrals: JOIE MOREIRA MD [ACTIVE STAFF] - Follow up in 1 week
[2017-03-20 08:52] LABS: HEMATOCRIT 29.4 % (36.0-47.0); HEMOGLOBIN 10.6 g/dL (12.0-15.5); HGB HCT DIFFERENCE 2.4; MEAN CORPUSCULAR HEMOGLOBIN 33.3 pg (27.0-33.4); MEAN CORPUSCULAR VOLUME 93 fl (80-97); RED BLOOD COUNT 3.18 10^6/uL (3.72-5.28); RED CELL DISTRIBUTION WIDTH 16.3 % (11.5-14.0); WHITE BLOOD COUNT 15.9 10^3/uL (4.0-10.5)
[2017-03-20 09:15] LABS: ALANINE AMINOTRANSFERASE 33 U/L (9-52); ALKALINE PHOSPHATASE 123 U/L (38-126); ANION GAP 12 (5-19); ASPARTATE AMINO TRANSFERASE 34 U/L (14-36); BILIRUBIN,DIRECT 0.2 mg/dL (0.0-0.4); BILIRUBIN,TOTAL 2.8 mg/dL (0.2-1.3); BLOOD UREA NITROGEN 6 mg/dL (7-20); CALCIUM 9.5 mg/dL (8.4-10.2); CARBON DIOXIDE 23 mmol/L (22-30); CHLORIDE 111 mmol/L (98-107); CREATININE RESULT 0.54 mg/dL (0.52-1.25); GLUCOSE 90 mg/dL (75-110); POTASSIUM 3.8 mmol/L (3.6-5.0); SODIUM 145.8 mmol/L (137-145)
[2017-03-20 09:23] LABS: ABSOLUTE EOSINOPHILS# (MANUAL) 0.3 10^3/uL (0.0-0.6); BAND NEUTROPHILS % (MANUAL) 2 % (3-5); BASOPHILS % (MANUAL) 1 % (0-2); EOSINOPHILS % (MANUAL) 2 % (0-6); LYMPHOCYTES % (MANUAL) 14 % (13-45); NUCLEATED RED BLOOD CELLS 2 /100 WBC (0); TOTAL CELLS COUNTED 100
[2017-03-20 09:25] LABS: ANISOCYTOSIS 1+; POIKILOCYTOSIS 1+; SCHISTOCYTES SLIGHT; TOXIC GRANULATION 1+; TOXIC VACUOLATION PRESENT
[2017-03-20 09:26] LABS: POLYCHROMASIA 1+
[2017-03-20 10:04] VITALS: BP 95/54
== END 2017-03-20 10:46 | disposition home or self-care (01) ==
LOC: ER 07:42
DX: D57.1 Sickle-cell disease without crisis (principal); R07.89 Other chest pain; M54.5 Low back pain
CPT/HCPCS: 36591; 99284; 96361; 96374; 36415; 85025; 85045; 80053; J1170; J7030

== ENCOUNTER 2017-03-31 18:50 | Emergency (ER) | payer MEDICAID ==
[2017-03-31] MEDS: HYDROMORPHONE HCL INJ/PF 2 MG/ML AMPULE IV PRN ×3 (20:36→23:02)
[2017-03-31 20:37] LABS: ABSOLUTE BASOPHILS # (AUTO) 0.3 10^3/uL (0.0-0.2); ABSOLUTE EOSINOPHILS # (AUTO) 0.8 10^3/uL (0.0-0.6); ABSOLUTE LYMPHOCYTES (AUTO) 3.2 10^3/uL (0.5-4.7); ABSOLUTE MONOCYTES (AUTO) 1.1 10^3/uL (0.1-1.4); ABSOLUTE NEUT (AUTO) 11.1 10^3/uL (1.7-8.2); ABSOLUTE RETICS # 0.176 10^6/uL (0.028-0.122); BASOPHILS % (AUTO) 1.7 % (0-2); EOSINOPHILS % (AUTO) 4.8 % (0-6); HEMATOCRIT 30.9 % (36.0-47.0); LYMPHOCYTES % (AUTO) 19.5 % (13-45); MEAN CORPUSCULAR HEMOGLOBIN 33.7 pg (27.0-33.4); MEAN CORPUSCULAR HGB CONC 35.5 g/dL (32.0-36.0); MEAN CORPUSCULAR VOLUME 95 fl (80-97); MONOCYTES % (AUTO) 6.8 % (3-13); PLATELET COUNT 540 10^3/uL (150-450); RED BLOOD COUNT 3.26 10^6/uL (3.72-5.28); RED CELL DISTRIBUTION WIDTH 16.6 % (11.5-14.0); RETICULOCYTE COUNT (AUTO) 5.39 % (0.66-2.85); SEGMENTED NEUTROPHILS % (AUTO) 67.2 % (42-78); TOTAL CELLS COUNTED % (AUTO) 100 %; WHITE BLOOD COUNT 16.5 10^3/uL (4.0-10.5)
[2017-03-31] MEDS ORDERED: NORMAL SALINE 1000 ML 1,000 ML IV ONE (20:38)
[2017-03-31 20:51] LABS: ALANINE AMINOTRANSFERASE 33 U/L (9-52); ALBUMIN 4.3 g/dL (3.5-5.0); ALKALINE PHOSPHATASE 72 U/L (38-126); ANION GAP 8 (5-19); ASPARTATE AMINO TRANSFERASE 31 U/L (14-36); BILIRUBIN,DIRECT 0.2 mg/dL (0.0-0.4); BILIRUBIN,TOTAL 3.6 mg/dL (0.2-1.3); BLOOD UREA NITROGEN 4 mg/dL (7-20); CALCIUM 10.1 mg/dL (8.4-10.2); CARBON DIOXIDE 28 mmol/L (22-30); CHLORIDE 108 mmol/L (98-107); GLUCOSE 86 mg/dL (75-110); POTASSIUM 3.8 mmol/L (3.6-5.0); SODIUM 144.2 mmol/L (137-145); TOTAL PROTEIN 7.4 g/dL (6.3-8.2)
[2017-03-31 20:58] LABS: PLATELET COMMENT INCREASED; PLATELET LARGE PRESENT
[2017-03-31 21:01] LABS: ANISOCYTOSIS 1+; POIKILOCYTOSIS 2+; TARGET CELLS 2+
--- NOTE | 2017-03-31 21:40 | ER Document Report ---
ED General - General Chief Complaint: Leg, back pain from sickle cell Stated Complaint: LEG/BACK PAIN Time Seen by Provider: 03/31/17 20:28 Notes: Patient is a 22-year-old female with a past medical history of sickle cell disease who presents with pain in her low back and bilateral proximal legs for the past 3 days. She describes the pain as a severe, constant throbbing pain. The pain was gradual in onset and has gotten progressively worse since that time. Patient reports that she has been trying oral oxycodone at home without any improvement. Nothing seems to worsen her symptoms. She states that this is identical to prior episodes of sickle cell crises. She has not seen her public employment mediator regarding today's concerns. She denies any shortness of breath, fever, abdominal pain, vomiting, or syncope. TRAVEL OUTSIDE OF THE [place] IN LAST 30 DAYS: No - Related Data Allergies/Adverse Reactions: morphine Adverse Reaction (Severe, Verified 03/20/17 07:44) RASH,SWELLING jacob peppers Adverse Reaction (Severe, Uncoded 03/20/17 07:44) throat closes Past Medical History - General Information source: Patient - Social History Smoking Status: Never Smoker Chew tobacco use (# tins/day): No Frequency of alcohol use: None Drug Abuse: None Lives with: Spouse/Significant other Family History: Hypertension, Other - Sickle cell Patient has suicidal ideation: No Patient has homicidal ideation: No - Past Medical History Cardiac Medical History: Denies: Hx Coronary Artery Disease, Hx Heart Attack, Hx Hypertension Pulmonary Medical History: Reports: Hx Pneumonia Denies: Hx Asthma, Hx Bronchitis, Hx COPD Neurological Medical History: Denies: Hx Cerebrovascular Accident, Hx Seizures Renal/ Medical History: Denies: Hx Peritoneal Dialysis Musculoskeltal Medical History: Denies Hx Arthritis Psychiatric Medical History: Reports: Hx Anxiety, Hx Depression Past Surgical History: Reports: Hx Cholecystectomy - 06/28/2015, Hx Vascular Surgery - port put in December, - Immunizations Immunizations up to date: Yes Hx Diphtheria, Pertussis, Tetanus Vaccination: Yes Review of Systems - Review of Systems Notes: Constitutional: Negative for fever. HENT: Negative for sore throat. Eyes: Negative for visual changes. Cardiovascular: Negative for chest pain. Respiratory: Negative for shortness of breath. Gastrointestinal: Negative for abdominal pain, vomiting or diarrhea. Genitourinary: Negative for dysuria. Musculoskeletal: Positive for rib, back, bilateral lower extremity pain Skin: Negative for rash. Neurological: Negative for headaches, weakness or numbness. 10 point ROS negative except as marked above and in HPI. Physical Exam - Vital signs Vitals: Temp Pulse Resp BP Pulse Ox 98.1 F 82 20 88/63 L 99 03/31/17 18:59 03/31/17 18:59 03/31/17 18:59 03/31/17 18:59 03/31/17 18:59 Interpretation: Hypotensive Notes: PHYSICAL EXAMINATION: GENERAL: Well-appearing, well-nourished and in no acute distress. HEAD: Atraumatic, normocephalic. EYES: Pupils equal round and reactive to light, extraocular movements intact, sclera anicteric, conjunctiva are normal. ENT: nares patent, oropharynx clear without exudates. Moist mucous membranes. NECK: Normal range of motion, supple without lymphadenopathy LUNGS: Breath sounds clear to auscultation bilaterally and equal. No wheezes rales or rhonchi. HEART: Regular rate and rhythm without murmurs ABDOMEN: Soft, nontender, normoactive bowel sounds. No guarding, no rebound. No masses appreciated. EXTREMITIES: Normal range of motion, no pitting or edema. No cyanosis. NEUROLOGICAL: No focal neurological deficits. Moves all extremities spontaneously and on command. PSYCH: Normal mood, normal affect. SKIN: Warm, Dry, normal turgor, no rashes or lesions noted. Course - Re-evaluation Re-evalutation: 03/31/17 21:39 Presentation is most consistent with an uncomplicated sickle cell pain crisis. Patient has no evidence of an aplastic crisis on labs. CVitals are not consistent with acute chest syndrome. Vitals have remained within normal limits here in the emergency department. Patient's pain has been able to be controlled using IV analgesia. The patient is agreeable to discharge home at this time. I recommended that they follow closely with their primary public employment mediator. At this time will discharge with return precautions and follow- up recommendations. Verbal discharge instructions given a the bedside and opportunity for questions given. Medication warnings reviewed. Patient is in agreement with this plan and has verbalized understanding of return precautions and the need for primary care follow-up in the next 24-72 hours. - Vital Signs Vital signs: Temp Pulse Resp BP Pulse Ox 98.4 F 65 14 94/62 L 100 03/31/17 20:24 03/31/17 20:24 03/31/17 23:46 03/31/17 23:46 03/31/17 23:46 - Laboratory Result Diagrams: 03/31/17 20:23 03/31/17 20:23 Laboratory results interpreted by me: 03/31/17 03/31/17 20:23 20:23 WBC 16.5 H RBC 3.26 L Hgb 11.0 L Hct 30.9 L MCH 33.7 H RDW 16.6 H Plt Count 540 H Absolute Neutrophils 11.1 H Absolute Eosinophils 0.8 H Absolute Basophils 0.3 H Retic Count (auto) 5.39 H Absolute Retic 0.176 H Chloride 108 H BUN 4 L Creatinine 0.48 L Total Bilirubin 3.6 H Discharge - Discharge Clinical Impression: Vaso-occlusive sickle cell crisis, Sickle cell pain crisis, Dehydration Condition: Stable Disposition: HOME, SELF-CARE Additional Instructions: You were seen today for sickle cell pain crisis. Please follow-up with your public employment mediator. Returning to the ED if you have worsening pain, fever greater than 100.4, shortness of breath, persistent vomiting, or any other symptoms that are concerning to you.
[2017-03-31 23:53] VITALS: BP 94/62
== END 2017-04-01 00:01 | disposition home or self-care (01) ==
LOC: ER 18:50
DX: D57.00 Hb-SS disease with crisis, unspecified (principal); M54.5 Low back pain; E86.0 Dehydration; R07.81 Pleurodynia; M79.605 Pain in left leg; M79.604 Pain in right leg
CPT/HCPCS: 36591; 96376; 99284; 96361; 96374; 36415; 85025; 85045; 80053; J1170; J7030

== ENCOUNTER 2017-04-07 05:30 | Emergency (ER) | payer MEDICAID ==
[2017-04-07] MEDS ORDERED: HYDROMORPHONE HCL INJ/PF 2 MG/ML AMPULE IV ONE (07:02)
--- NOTE | 2017-04-07 07:03 | ER Document Report ---
ED General Pain - General Chief Complaint: Sickle Cell Crisis Stated Complaint: BODY PAIN Time Seen by Provider: 04/07/17 06:44 Notes: 22-year-old female patient history of sickle cell disease here complaining of sickle cell crisis. Having pain in the chest and back. Has had exact similar symptoms in the past. Started 1 week ago. Was seen in the emergency department. Had fluids and pain medications and was able to go home. Followed by corn husk baler locally. No other symptoms at this time. Denies any fever, chills, sweats TRAVEL OUTSIDE OF THE [place] IN LAST 30 DAYS: No - Related Data Allergies/Adverse Reactions: morphine Adverse Reaction (Severe, Verified 03/20/17 07:44) RASH,SWELLING jacob peppers Adverse Reaction (Severe, Uncoded 03/20/17 07:44) throat closes Past Medical History - General Information source: Patient - Social History Smoking Status: Never Smoker Frequency of alcohol use: None Drug Abuse: None Family History: Hypertension, Other - Sickle cell Patient has suicidal ideation: No Patient has homicidal ideation: No - Past Medical History Cardiac Medical History: Denies: Hx Coronary Artery Disease, Hx Heart Attack, Hx Hypertension Pulmonary Medical History: Reports: Hx Pneumonia Denies: Hx Asthma, Hx Bronchitis, Hx COPD Neurological Medical History: Denies: Hx Cerebrovascular Accident, Hx Seizures Renal/ Medical History: Denies: Hx Peritoneal Dialysis Musculoskeltal Medical History: Denies Hx Arthritis Psychiatric Medical History: Reports: Hx Anxiety, Hx Depression Past Surgical History: Reports: Hx Cholecystectomy - 06/28/2015, Hx Vascular Surgery - port put in December, - Immunizations Immunizations up to date: Yes Hx Diphtheria, Pertussis, Tetanus Vaccination: Yes Review of Systems - Review of Systems Constitutional: No symptoms reported, Other - Pain EENT: No symptoms reported Cardiovascular: No symptoms reported, Chest pain Respiratory: No symptoms reported Gastrointestinal: No symptoms reported Genitourinary: No symptoms reported Female Genitourinary: No symptoms reported Musculoskeletal: No symptoms reported, Back pain Skin: No symptoms reported Hematologic/Lymphatic: No symptoms reported Neurological/Psychological: No symptoms reported Physical Exam - Vital signs Vitals: Temp Pulse Resp BP Pulse Ox 98.6 F 78 16 110/58 L 98 04/07/17 05:40 04/07/17 05:40 04/07/17 05:40 04/07/17 05:40 04/07/17 05:40 Interpretation: Normal - General General appearance: Appears well, Alert - HEENT Head: Normocephalic, Atraumatic Eyes: Normal Pupils: PERRL - Respiratory Respiratory status: No respiratory distress Chest status: Nontender Breath sounds: Normal Chest palpation: Normal - Cardiovascular Rhythm: Regular Heart sounds: Normal auscultation Murmur: No - Abdominal Inspection: Normal Distension: No distension Bowel sounds: Normal Tenderness: Nontender Organomegaly: No organomegaly - Back Back: Normal, Nontender - Extremities General upper extremity: Normal inspection, Nontender, Normal color, Normal ROM , Normal temperature General lower extremity: Normal inspection, Nontender, Normal color, Normal ROM , Normal temperature, Normal weight bearing. No: Glen's sign - Neurological Neuro grossly intact: Yes Cognition: Normal Orientation: AAOx4 [place] Coma Scale Eye Opening: Spontaneous [place] Coma Scale Verbal: Oriented [place] Coma Scale Motor: Obeys Commands [place] Coma Scale Total: 15 Speech: Normal Motor strength normal: LUE, RUE, LLE, RLE Sensory: Normal - Psychological Associated symptoms: Normal affect, Normal mood - Skin Skin Temperature: Warm Skin Moisture: Dry Skin Color: Normal Course - Re-evaluation Re-evalutation: 04/07/17 07:11 We will get CBC, reticulocyte count, chemistry, fluids, pain medication and reassess. 04/07/17 10:24 Laboratory 04/07/17 04/07/17 04/07/17 07:30 07:30 07:30 WBC 15.4 H RBC 2.98 L Hgb 9.9 L Hct 27.6 L MCV 93 MCH 33.2 MCHC 35.8 RDW 16.6 H Plt Count 386 Total Counted 100 Seg Neutrophils % Not Reportable Seg Neuts % (Manual) 64 Lymphocytes % Not Reportable Lymphocytes % (Manual) 16 Atypical Lymphs % 1 Monocytes % Not Reportable Monocytes % (Manual) 9 Eosinophils % Not Reportable Eosinophils % (Manual) 10 H Basophils % Not Reportable Basophils % (Manual) 0 Absolute Neutrophils Not Reportable Abs Neuts (Manual) 9.9 H Absolute Lymphocytes Not Reportable Abs Lymphs (Manual) 2.6 Absolute Monocytes Not Reportable Abs Monocytes (Manual) 1.4 Absolute Eosinophils Not Reportable Absolute Eos (Manual) 1.5 H Absolute Basophils Not Reportable Abs Basophils (Manual) 0.0 Toxic Granulation SLIGHT Toxic Vacuolation PRESENT Platelet Comment ADEQUATE Polychromasia 2+ Hypochromasia SLIGHT Poikilocytosis 1+ Anisocytosis 1+ Sickle Cells SLIGHT Ovalocytes 1+ Stomatocytes 1+ Schistocytes SLIGHT RBC Morph Comment Retic Count (auto) 5.00 H Absolute Retic 0.149 H Sodium 141.1 Potassium 3.9 Chloride 104 Carbon Dioxide 27 Anion Gap 10 BUN 6 L Creatinine 0.51 L Est GFR ( Amer) > 60 Est GFR (Non-Af Amer) > 60 Glucose 84 Calcium 10.1 Total Bilirubin 4.8 H Direct Bilirubin 0.3 Neonat Total Bilirubin Not Reportable Neonat Direct Bilirubin Not Reportable Neonat Indirect Bili Not Reportable AST 26 ALT 35 Alkaline Phosphatase 66 Troponin I 0.017 Total Protein 7.1 Albumin 4.2 Chest X-Ray 04/07/17 06:56 IMPRESSION: NO ACUTE RADIOGRAPHIC FINDING IN THE CHEST. She feeling much better at this time. Retake count is not significantly elevated. Hemoglobin hematocrit stable. Doing better. Wants to go home. Will DC at this time. 04/07/17 10:25 - Vital Signs Vital signs: Temp Pulse Resp BP Pulse Ox 98.6 F 78 16 110/58 L 98 04/07/17 05:40 04/07/17 05:40 04/07/17 05:40 04/07/17 05:40 04/07/17 05:40 - Laboratory Result Diagrams: 04/07/17 07:30 04/07/17 07:30 Laboratory results interpreted by me: 04/07/17 04/07/17 07:30 07:30 WBC 15.4 H RBC 2.98 L Hgb 9.9 L Hct 27.6 L RDW 16.6 H Eosinophils % (Manual) 10 H Abs Neuts (Manual) 9.9 H Absolute Eos (Manual) 1.5 H Retic Count (auto) 5.00 H Absolute Retic 0.149 H BUN 6 L Creatinine 0.51 L Total Bilirubin 4.8 H - EKG Interpretation by Ok EKG shows normal: Sinus rhythm, [place], Intervals, QRS Complexes, ST-T Waves Discharge - Discharge Clinical Impression: Sickle cell anemia with crisis Disposition: HOME, SELF-CARE Instructions: Sickle Cell Crisis ([facility]) Additional Instructions: Continue drinking plenty of fluids today. Continue taking your regular pain medication and treatment medications. Please follow-up with your corn husk baler. Return immediately if you develop severe chest pain, shortness of breath, fever or any other concerns. Referrals: JOIE MOREIRA MD [Primary Care Provider] - Follow up as needed
--- NOTE | 2017-04-07 07:25 | EKG REPORT ---
SEVERITY:- NORMAL ECG - SINUS RHYTHM : Confirmed by: Kris Baker MD 07-Apr-2017 07:25:03
[2017-04-07 07:48] LABS: ABSOLUTE RETICS # 0.149 10^6/uL (0.028-0.122); HEMATOCRIT 27.6 % (36.0-47.0); HEMOGLOBIN 9.9 g/dL (12.0-15.5); MEAN CORPUSCULAR HEMOGLOBIN 33.2 pg (27.0-33.4); MEAN CORPUSCULAR HGB CONC 35.8 g/dL (32.0-36.0); MEAN CORPUSCULAR VOLUME 93 fl (80-97); PLATELET COUNT 386 10^3/uL (150-450); RED BLOOD COUNT 2.98 10^6/uL (3.72-5.28); RED CELL DISTRIBUTION WIDTH 16.6 % (11.5-14.0); WHITE BLOOD COUNT 15.4 10^3/uL (4.0-10.5)
[2017-04-07 07:58] LABS: ALANINE AMINOTRANSFERASE 35 U/L (9-52); ALBUMIN 4.2 g/dL (3.5-5.0); ALKALINE PHOSPHATASE 66 U/L (38-126); ASPARTATE AMINO TRANSFERASE 26 U/L (14-36); BILIRUBIN,DIRECT 0.3 mg/dL (0.0-0.4); BILIRUBIN,TOTAL 4.8 mg/dL (0.2-1.3); BLOOD UREA NITROGEN 6 mg/dL (7-20); CALCIUM 10.1 mg/dL (8.4-10.2); GLUCOSE 84 mg/dL (75-110); TOTAL PROTEIN 7.1 g/dL (6.3-8.2)
[2017-04-07 08:09] LABS: ANION GAP 10 (5-19); CARBON DIOXIDE 27 mmol/L (22-30); CHLORIDE 104 mmol/L (98-107); POTASSIUM 3.9 mmol/L (3.6-5.0); SODIUM 141.1 mmol/L (137-145)
[2017-04-07] MEDS ORDERED: HYDROMORPHONE HCL INJ/PF 2 MG/ML AMPULE IV PRN (08:14)
[2017-04-07] MEDS: NORMAL SALINE 1000 ML 1,000 ML IV PRN ×2 (08:23→09:35)
[2017-04-07 08:24] LABS: ABSOLUTE LYMPHOCYTES# (MANUAL) 2.6 10^3/uL (0.5-4.7); ABSOLUTE MONOCYTES # (MANUAL) 1.4 10^3/uL (0.1-1.4); ABSOLUTE NEUTROPHILS# (MANUAL) 9.9 10^3/uL (1.7-8.2); BASOPHILS % (MANUAL) 0 % (0-2); EOSINOPHILS % (MANUAL) 10 % (0-6); LYMPHOCYTES % (MANUAL) 16 % (13-45); MONOCYTES % (MANUAL) 9 % (3-13); SEGMENTED NEUTROPHILS % (MAN) 64 % (42-78); TOTAL CELLS COUNTED 100
[2017-04-07 08:25] LABS: ANISOCYTOSIS 1+; OVALOCYTES 1+; POIKILOCYTOSIS 1+; STOMATOCYTES 1+
[2017-04-07 08:26] LABS: PLATELET COMMENT ADEQUATE; POLYCHROMASIA 2+; SICKLE RED CELLS SLIGHT; TOXIC GRANULATION SLIGHT; TOXIC VACUOLATION PRESENT
[2017-04-07 08:27] LABS: HYPOCHROMASIA SLIGHT; SCHISTOCYTES SLIGHT
--- NOTE | 2017-04-07 08:36 | RADIOLOGY REPORT (SQ) ---
EXAM DESCRIPTION: CHEST SINGLE VIEW COMPLETED DATE/TIME: 04/07/2017 8:02 am REASON FOR STUDY: chest pain COMPARISON: 03/08/2017 EXAM PARAMETERS: NUMBER OF VIEWS: One view. TECHNIQUE: Single frontal radiographic view of the chest acquired. RADIATION DOSE: NA LIMITATIONS: None. FINDINGS: LUNGS AND PLEURA: No opacities, masses or pneumothorax. No pleural effusion. MEDIASTINUM AND HILAR STRUCTURES: No masses. Contour normal. HEART AND VASCULAR STRUCTURES: Heart normal in size. Normal vasculature. BONES: No acute findings. HARDWARE: Venous access catheter tip at the cavoatrial junction. OTHER: No other significant finding. IMPRESSION: NO ACUTE RADIOGRAPHIC FINDING IN THE CHEST. TECHNICAL DOCUMENTATION: JOB ID: [id number] [employer]- All Rights Reserved
[2017-04-07 11:10] VITALS: BP 110/50
[2017-04-07 11:21] LABS: APPEARANCE,URINE CLEAR; BILIRUBIN,URINE NEGATIVE (NEGATIVE); COLOR,URINE YELLOW; GLUCOSE, URINE NEGATIVE (NEGATIVE); KETONES,URINE NEGATIVE (NEGATIVE); LEUKOCYTE ESTERASE,URINE NEGATIVE (NEGATIVE); NITRITE,URINE NEGATIVE (NEGATIVE); PROTEIN,URINE NEGATIVE (NEGATIVE); URINE SPECIFIC GRAVITY 1.005; UROBILINOGEN,URINE NEGATIVE mg/dL (<2.0)
== END 2017-04-07 11:10 | disposition home or self-care (01) ==
LOC: ER 05:30
DX: D57.00 Hb-SS disease with crisis, unspecified (principal); R07.9 Chest pain, unspecified; M54.9 Dorsalgia, unspecified
CPT/HCPCS: 93005; 36591; 96376; 99284; 96361; 96374; 36415; 85025; 81025; 85045; 80053; 81001; 84484; 71045; 93010; J1170; J7030

== ENCOUNTER 2017-04-16 22:00 | Emergency (ER) | payer MEDICAID ==
--- NOTE | 2017-04-16 22:40 | ER Document Report ---
ED Medical Screen (RME) - General Chief Complaint: Sickle Cell Crisis Stated Complaint: CHEST PAIN Time Seen by Provider: 04/16/17 22:38 Mode of Arrival: Ambulatory Information source: Patient Notes: Patient is a 22-year-old female with sickle cell disease who presents to the ER today for chest pain and back pain. Patient states that it started yesterday. She states that she tried to take her oxycodone at home which did not help. TRAVEL OUTSIDE OF THE [place] IN LAST 30 DAYS: No - Related Data Allergies/Adverse Reactions: morphine Adverse Reaction (Severe, Verified 03/20/17 07:44) RASH,SWELLING jacob peppers Adverse Reaction (Severe, Uncoded 03/20/17 07:44) throat closes Past Medical History - General Information source: Patient - Social History Family history: Reviewed & Not Pertinent, Other - Pt was adopted. Does not know family history - Past Medical History Cardiac Medical History: Denies: Hx Coronary Artery Disease, Hx Heart Attack, Hx Hypertension Pulmonary Medical History: Reports: Hx Pneumonia Denies: Hx Asthma, Hx Bronchitis, Hx COPD Neurological Medical History: Denies: Hx Cerebrovascular Accident, Hx Seizures Renal/ Medical History: Denies: Hx Peritoneal Dialysis Musculoskeltal Medical History: Denies Hx Arthritis Psychiatric Medical History: Reports: Hx Anxiety, Hx Depression Past Surgical History: Reports: Hx Cholecystectomy - 06/28/2015, Hx Vascular Surgery - port put in December, - Immunizations Immunizations up to date: Yes Hx Diphtheria, Pertussis, Tetanus Vaccination: Yes History of Influenza Vaccine for 12/2016 - 05/2017 Season: Yes Influenza Administration Date for 12/2016 - 05/2017 Season: 03/10/17 Review of Systems - Review of Systems Cardiovascular: See HPI Hematologic/Lymphatic: See HPI Physical Exam - Notes Notes: PHYSICAL EXAMINATION: GENERAL: hunched over holding back, but in no acute distress. LUNGS: CTAB and equal. No wheezes rales or rhonchi. HEART: Regular rate and rhythm without murmurs
[2017-04-16] MEDS ORDERED: HYDROMORPHONE HCL INJ/PF 2 MG/ML AMPULE IV ONE (22:46)
[2017-04-16] MEDS ORDERED: NORMAL SALINE 1000 ML 1,000 ML IV ONE (22:46)
[2017-04-16 23:04] LABS: APPEARANCE,URINE SLIGHTLY-CLOUDY; BILIRUBIN,URINE NEGATIVE (NEGATIVE); COLOR,URINE YELLOW; GLUCOSE, URINE NEGATIVE (NEGATIVE); KETONES,URINE NEGATIVE (NEGATIVE); LEUKOCYTE ESTERASE,URINE NEGATIVE (NEGATIVE); NITRITE,URINE NEGATIVE (NEGATIVE); PROTEIN,URINE NEGATIVE (NEGATIVE)
--- NOTE | 2017-04-16 23:10 | EKG REPORT ---
SEVERITY:- NORMAL ECG - SINUS RHYTHM : Confirmed by: Nathan Lopez 16-Apr-2017 23:10:24
--- NOTE | 2017-04-16 23:14 | ER Document Report ---
ED General - General Chief Complaint: Sickle Cell Crisis Stated Complaint: CHEST PAIN Time Seen by Provider: 04/16/17 22:38 Mode of Arrival: Ambulatory TRAVEL OUTSIDE OF THE [place] IN LAST 30 DAYS: No - HPI Notes: 22-year-old female with sickle cell disease and prior cholecystectomy presents for low chest pain and back pain since yesterday. It is sharp. Not pleuritic. She has no other associated symptoms. Denies infectious symptoms. No fever, cough cold symptoms, nausea vomiting diarrhea. This is consistent with prior sickle cell episode she has had in the past. She has found no alleviating or exacerbating factors and the oxycodone she uses at home did not seem to help. - Related Data Allergies/Adverse Reactions: morphine Adverse Reaction (Severe, Verified 04/16/17 23:11) RASH,SWELLING jacob peppers Adverse Reaction (Severe, Uncoded 04/16/17 23:11) throat closes Past Medical History - General Information source: Patient - Social History Smoking Status: Current Every Day Smoker Chew tobacco use (# tins/day): No Frequency of alcohol use: None Drug Abuse: None Family History: Hypertension, Other - Sickle cell Patient has suicidal ideation: No Patient has homicidal ideation: No - Past Medical History Cardiac Medical History: Denies: Hx Coronary Artery Disease, Hx Heart Attack, Hx Hypertension Pulmonary Medical History: Reports: Hx Pneumonia Denies: Hx Asthma, Hx Bronchitis, Hx COPD Neurological Medical History: Denies: Hx Cerebrovascular Accident, Hx Seizures Renal/ Medical History: Denies: Hx Peritoneal Dialysis Musculoskeltal Medical History: Denies Hx Arthritis Psychiatric Medical History: Reports: Hx Anxiety, Hx Depression Past Surgical History: Reports: Hx Cholecystectomy - 06/28/2015, Hx Vascular Surgery - port put in December, - Immunizations Immunizations up to date: Yes Hx Diphtheria, Pertussis, Tetanus Vaccination: Yes Review of Systems - Review of Systems -: Yes All other systems reviewed and negative Physical Exam - Vital signs Notes: See nurse's note - Notes Notes: GENERAL: VS as per nursing doc. Well-appearing, well-nourished and in no acute distress. HEAD: Atraumatic, normocephalic. EYES: Pupils equal round and reactive to light, extraocular movements intact, sclera anicteric, no conjunctival injection or discharge. ENT: Nares patent, oropharynx clear without exudates, moist mucous membranes. NECK: Normal range of motion, supple without lymphadenopathy. LUNGS: Breath sounds clear to auscultation bilaterally and equal. No wheezes rales or rhonchi. HEART: Regular rate and rhythm without murmurs. ABDOMEN: Soft, non-tender, normoactive bowel sounds. No guarding, no rebound. No masses appreciated. No Mena sign. BACK: No CVA tenderness. EXTREMITIES: Normal range of motion, no calf tenderness, no edema. NEUROLOGICAL: Cranial nerves grossly intact. Normal speech. Normal sensory and motor exams. No gross cerebellar abnormalities. PSYCH: Normal mood, normal affect. SKIN: Warm, dry, normal turgor, no lesions noted. Course - Re-evaluation Re-evalutation: 04/17/17 00:52 Patient's hemoglobin has slightly decreased. Reticulocyte count looks good and is elevated. No evidence of infectious etiology. We will attempt to control the patient's pain and plan discharge if we are able to do that. No signs of acute chest syndrome. On recheck she reports her pain has improved significantly but would like one more dose of medication prior to contacting her sister for a ride home. - Laboratory Result Diagrams: 04/16/17 23:42 04/16/17 23:42 Laboratory results interpreted by me: 04/16/17 04/16/17 04/16/17 22:47 23:42 23:42 WBC 14.1 H RBC 2.64 L Hgb 9.1 L Hct 25.0 L MCH 34.4 H MCHC 36.3 H RDW 18.4 H Absolute Neutrophils 8.7 H Absolute Eosinophils 0.7 H Absolute Basophils 0.3 H Retic Count (auto) 8.95 H Absolute Retic 0.236 H Chloride 108 H Creatinine 0.50 L Total Bilirubin 4.8 H Direct Bilirubin 0.5 H Creatine Kinase 28 L Urine Urobilinogen 4.0 H - EKG Interpretation by [facility] EKG shows normal: Sinus rhythm - Rate 97, normal sinus rhythm, normal QRS, normal intervals, normal EKG. Discharge - Discharge Clinical Impression: Sickle cell anemia with crisis Condition: Good Disposition: HOME, SELF-CARE Instructions: Sickle Cell Crisis ([facility]) Additional Instructions: Return for fever, emergency or concern. Referrals: JOIE MOREIRA MD [Primary Care Provider] - Follow up in 3-5 days
--- NOTE | 2017-04-16 23:35 | RADIOLOGY REPORT (SQ) ---
EXAM DESCRIPTION: CHEST SINGLE VIEW CLINICAL HISTORY: 22 years, Female, sickle cell, chest pain COMPARISON: 04/07/2017. FINDINGS: Normal lung volume, clear parenchyma, normal cardiac silhouette, and intact bony thorax. Right jugular miniport tip at the SVC above the cavoatrial junction. IMPRESSION: No acute cardiopulmonary findings. 2011 [email or web address] [employer]- All Rights Reserved
[2017-04-17 00:03] LABS: INTERNATIONAL RATION (INR) 1.07; PROTHROMBIN TIME 14.6 SEC (11.4-15.4)
[2017-04-17 00:04] LABS: PARTIAL THROMBOPLASTIN TIME 35.4 SEC (23.5-35.8)
[2017-04-17 00:06] LABS: ALANINE AMINOTRANSFERASE 25 U/L (9-52); ALBUMIN 4.1 g/dL (3.5-5.0); ALKALINE PHOSPHATASE 69 U/L (38-126); ANION GAP 9 (5-19); ASPARTATE AMINO TRANSFERASE 25 U/L (14-36); BILIRUBIN,DIRECT 0.5 mg/dL (0.0-0.4); BILIRUBIN,TOTAL 4.8 mg/dL (0.2-1.3); BLOOD UREA NITROGEN 7 mg/dL (7-20); CALCIUM 9.4 mg/dL (8.4-10.2); CARBON DIOXIDE 25 mmol/L (22-30); CHLORIDE 108 mmol/L (98-107); CREATINE KINASE 28 U/L (30-135); GLUCOSE 90 mg/dL (75-110); LIPASE 113.7 U/L (23-300); POTASSIUM 3.9 mmol/L (3.6-5.0); SODIUM 142.1 mmol/L (137-145); TOTAL PROTEIN 6.9 g/dL (6.3-8.2)
[2017-04-17 00:22] LABS: CREATINE KINASE MB < 0.22 ng/mL (<4.55); TROPONIN I < 0.012 ng/mL
[2017-04-17 00:28] LABS: ABSOLUTE BASOPHILS # (AUTO) 0.3 10^3/uL (0.0-0.2); ABSOLUTE EOSINOPHILS # (AUTO) 0.7 10^3/uL (0.0-0.6); ABSOLUTE LYMPHOCYTES (AUTO) 3.2 10^3/uL (0.5-4.7); ABSOLUTE MONOCYTES (AUTO) 1.2 10^3/uL (0.1-1.4); ABSOLUTE NEUT (AUTO) 8.7 10^3/uL (1.7-8.2); ABSOLUTE RETICS # 0.236 10^6/uL (0.028-0.122); BASOPHILS % (AUTO) 1.9 % (0-2); HEMOGLOBIN 9.1 g/dL (12.0-15.5); LYMPHOCYTES % (AUTO) 22.8 % (13-45); MEAN CORPUSCULAR HEMOGLOBIN 34.4 pg (27.0-33.4); MEAN CORPUSCULAR HGB CONC 36.3 g/dL (32.0-36.0); MEAN CORPUSCULAR VOLUME 95 fl (80-97); MONOCYTES % (AUTO) 8.3 % (3-13); PLATELET COUNT 398 10^3/uL (150-450); RED BLOOD COUNT 2.64 10^6/uL (3.72-5.28); RED CELL DISTRIBUTION WIDTH 18.4 % (11.5-14.0); RETICULOCYTE COUNT (AUTO) 8.95 % (0.66-2.85); TOTAL CELLS COUNTED % (AUTO) 100 %; WHITE BLOOD COUNT 14.1 10^3/uL (4.0-10.5)
[2017-04-17 00:33] LABS: POLYCHROMASIA 1+; TOXIC GRANULATION SLIGHT; TOXIC VACUOLATION PRESENT
[2017-04-17 00:34] LABS: ANISOCYTOSIS 2+; OVALOCYTES SLIGHT; PLATELET COMMENT ADEQUATE; POIKILOCYTOSIS 1+; SCHISTOCYTES SLIGHT; SICKLE RED CELLS SLIGHT; TARGET CELLS SLIGHT; TEAR DROP CELLS SLIGHT
[2017-04-17] MEDS ORDERED: ONDANSETRON HCL INJ/PF 4 MG/2 ML SDV IV ONE (00:56)
[2017-04-17] MEDS ORDERED: HYDROMORPHONE HCL INJ/PF 2 MG/ML AMPULE IV ONE (00:56)
[2017-04-17] MEDS ORDERED: HEPARIN SOD (PORCINE) 1 UNIT/ML PF 3 ML SYRINGE IV ONE (01:39)
[2017-04-17 02:05] VITALS: BP 106/54
== END 2017-04-17 02:05 | disposition home or self-care (01) ==
LOC: ER 22:00
DX: D57.00 Hb-SS disease with crisis, unspecified (principal); R07.9 Chest pain, unspecified; M54.9 Dorsalgia, unspecified; F17.200 Nicotine dependence, unspecified, uncomplicated
CPT/HCPCS: 93005; 36591; 96376; 99284; 96374; 96375; 86900; 86901; 36415; 82553; 86850; 82550; 83690; 85025; 85610; 85730; 81025; 85045; 80053; 81001; 84484; 71045; 93010; J1170 ×2; J2405; J7030

== ENCOUNTER 2017-04-17 10:28 | Inpatient (IN) | payer MEDICAID ==
[2017-04-17] MEDS ORDERED: NORMAL SALINE 1000 ML 1,000 ML IV ONE (10:29)
--- NOTE | 2017-04-17 10:42 | ER Document Report ---
ED Medical Screen (RME) - General Chief Complaint: Pain All Over Stated Complaint: BODY PAIN Time Seen by Provider: 04/17/17 10:39 Mode of Arrival: Ambulatory Information source: Patient, Dr. Office Notes: 22-year-old female history of sickle cell disease presents with complaints of chest pain back pain. Patient notes symptoms worsened after she was seen last night. Awoke this morning. She was last admitted beginning of February due to anemia requiring transfusion Patient sent in by her director systems I have greeted and performed a rapid initial assessment of this patient. A comprehensive ED assessment and evaluation of the patient, analysis of test results and completion of the medical decision making process will be conducted by additional ED providers. PHYSICAL EXAMINATION: GENERAL: Well-appearing, well-nourished and in no acute distress. HEAD: Atraumatic, normocephalic. EYES: Pupils equal round extraocular movements intact, conjunctiva are normal. ENT: Nares patent NECK: Normal range of motion LUNGS: No respiratory distress Musculoskeletal: Normal range of motion NEUROLOGICAL: Normal speech, normal gait. PSYCH: Normal mood, normal affect. SKIN: Warm, Dry, normal turgor, no rashes or lesions noted. TRAVEL OUTSIDE OF THE [place] IN LAST 30 DAYS: No - Related Data Allergies/Adverse Reactions: morphine Adverse Reaction (Severe, Verified 04/17/17 10:37) RASH,SWELLING jacob peppers Adverse Reaction (Severe, Uncoded 04/17/17 10:37) throat closes Past Medical History - Social History Chew tobacco use (# tins/day): No Frequency of alcohol use: None Drug Abuse: None Family history: Reviewed & Not Pertinent, Other - Pt was adopted. Does not know family history - Past Medical History Cardiac Medical History: Denies: Hx Coronary Artery Disease, Hx Heart Attack, Hx Hypertension Pulmonary Medical History: Reports: Hx Pneumonia Denies: Hx Asthma, Hx Bronchitis, Hx COPD Neurological Medical History: Denies: Hx Cerebrovascular Accident, Hx Seizures Renal/ Medical History: Denies: Hx Peritoneal Dialysis Musculoskeltal Medical History: Denies Hx Arthritis Psychiatric Medical History: Reports: Hx Anxiety, Hx Depression Past Surgical History: Reports: Hx Cholecystectomy - 06/28/2015, Hx Vascular Surgery - port put in December, - Immunizations Immunizations up to date: Yes Hx Diphtheria, Pertussis, Tetanus Vaccination: Yes History of Influenza Vaccine for 12/2016 - 05/2017 Season: Yes Influenza Administration Date for 12/2016 Season: 03/10/17 Physical Exam - Vital signs Vitals: Temp Pulse Resp BP Pulse Ox 98.7 F 84 16 105/53 L 96 04/17/17 10:32 04/17/17 10:32 04/17/17 10:32 04/17/17 10:32 04/17/17 10:32 Course - Vital Signs Vital signs: Temp Pulse Resp BP Pulse Ox 98.7 F 84 16 105/53 L 96 04/17/17 10:32 04/17/17 10:32 04/17/17 10:32 04/17/17 10:32 04/17/17 10:32
--- NOTE | 2017-04-17 11:10 | RADIOLOGY REPORT (SQ) ---
EXAM DESCRIPTION: CHEST PA/LAT COMPLETED DATE/TIME: 04/17/2017 10:51 am REASON FOR STUDY: sickle cell pain COMPARISON: CT chest 09/26/2016 Chest films 03/08/2017, 04/16/2017 EXAM PARAMETERS: NUMBER OF VIEWS: two views TECHNIQUE: Digital Frontal and Lateral radiographic views of the chest acquired. RADIATION DOSE: NA LIMITATIONS: none FINDINGS: LUNGS AND PLEURA: No opacities, masses or pneumothorax. No pleural effusion. MEDIASTINUM AND HILAR STRUCTURES: No masses or contour abnormalities. HEART AND VASCULAR STRUCTURES: Heart normal size. No evidence for failure. BONES: Characteristic thoracic spine vertebral body biconcave deformities from known sickle cell. HARDWARE: Right-sided permanent central line tip superior vena cava OTHER: No other significant finding. IMPRESSION: NO SIGNIFICANT RADIOGRAPHIC FINDING IN THE CHEST. TECHNICAL DOCUMENTATION: JOB ID: [id number] [employer]- All Rights Reserved
[2017-04-17] MEDS ORDERED: ONDANSETRON HCL INJ/PF 4 MG/2 ML SDV IV ONE (11:21)
[2017-04-17] MEDS ORDERED: DIPHENHYDRAMINE HCL 50 MG/ML VIAL IV ONE (11:21)
[2017-04-17] MEDS ORDERED: HYDROMORPHONE HCL INJ/PF 2 MG/ML AMPULE IV ONE ×2 (11:22→13:32)
[2017-04-17 11:37] LABS: ABSOLUTE RETICS # 0.268 10^6/uL (0.028-0.122); HEMOGLOBIN 9.3 g/dL (12.0-15.5); MEAN CORPUSCULAR HGB CONC 35.9 g/dL (32.0-36.0); MEAN CORPUSCULAR VOLUME 95 fl (80-97); PLATELET COUNT 414 10^3/uL (150-450); RED BLOOD COUNT 2.75 10^6/uL (3.72-5.28); RED CELL DISTRIBUTION WIDTH 18.8 % (11.5-14.0); RETICULOCYTE COUNT (AUTO) 9.73 % (0.66-2.85); WHITE BLOOD COUNT 12.4 10^3/uL (4.0-10.5)
[2017-04-17 11:49] LABS: ALANINE AMINOTRANSFERASE 26 U/L (9-52); ALBUMIN 3.8 g/dL (3.5-5.0); ALKALINE PHOSPHATASE 56 U/L (38-126); ANION GAP 6 (5-19); ASPARTATE AMINO TRANSFERASE 25 U/L (14-36); BILIRUBIN,DIRECT 0.4 mg/dL (0.0-0.4); BLOOD UREA NITROGEN 4 mg/dL (7-20); CALCIUM 9.5 mg/dL (8.4-10.2); CARBON DIOXIDE 25 mmol/L (22-30); CHLORIDE 111 mmol/L (98-107); GLUCOSE 85 mg/dL (75-110); SODIUM 141.9 mmol/L (137-145); TOTAL PROTEIN 6.7 g/dL (6.3-8.2)
[2017-04-17 11:58] LABS: ABSOLUTE LYMPHOCYTES# (MANUAL) 1.7 10^3/uL (0.5-4.7); ABSOLUTE MONOCYTES # (MANUAL) 1.2 10^3/uL (0.1-1.4); ABSOLUTE NEUTROPHILS# (MANUAL) 8.2 10^3/uL (1.7-8.2); BASOPHILS % (MANUAL) 0 % (0-2); EOSINOPHILS % (MANUAL) 10 % (0-6); LYMPHOCYTES % (MANUAL) 14 % (13-45); METAMYELOCYTES % (MANUAL) 2 % (0); MONOCYTES % (MANUAL) 10 % (3-13); NUCLEATED RED BLOOD CELLS 3 /100 WBC (0); SEGMENTED NEUTROPHILS % (MAN) 64 % (42-78); TOTAL CELLS COUNTED 100
[2017-04-17 12:00] LABS: ANISOCYTOSIS 1+; PLATELET COMMENT ADEQUATE; POIKILOCYTOSIS 1+; POLYCHROMASIA SLIGHT; SICKLE RED CELLS SLIGHT; TARGET CELLS 1+; TOXIC GRANULATION SLIGHT
--- NOTE | 2017-04-17 13:27 | ER Document Report ---
ED General Pain - General Chief Complaint: Pain All Over Stated Complaint: BODY PAIN Time Seen by Provider: 04/17/17 10:39 Mode of Arrival: Ambulatory Notes: Patient has a history of sickle cell disease with many pain crises in the past. She is here complaining of pain "everywhere". She was here last night and given fluids and pain medications (Dilaudid). She says that when she was discharged, she was still in pain and it continues today. She called her local [employer] operator who advised her to return to the emergency department. Dr. Riya lazaro called here prior to the patient's return saying that he felt she needed to be admitted for pain management. Patient says that she does have anxiety and depression but is on no medications for these disorders. Patient has been here to this emergency department approximately 25 times in the last 6 months and similarly prior to that time. Patient denies any signs or symptoms of infection. She has not had any fever. No vomiting or diarrhea. No significant cough or chest congestion. No urinary tract symptoms. LMP was 1231. On no control. PMH: Cholecystectomy, port in right chest. Current medications at home are folate and hydroxyurea and oxycodone for pain. TRAVEL OUTSIDE OF THE [place] IN LAST 30 DAYS: No - Related Data Allergies/Adverse Reactions: morphine Adverse Reaction (Severe, Verified 04/17/17 10:37) RASH,SWELLING jacob peppers Adverse Reaction (Severe, Uncoded 04/17/17 10:37) throat closes Past Medical History - General Information source: Patient, Office - Social History Smoking Status: Never Smoker Chew tobacco use (# tins/day): No Frequency of alcohol use: None Drug Abuse: None Family History: Reviewed & Not Pertinent, Hypertension, Other - Sickle cell Patient has suicidal ideation: No Patient has homicidal ideation: No Pulmonary Medical History: Reports: Hx Pneumonia Musculoskeltal Medical History: Denies Hx Arthritis Psychiatric Medical History: Reports: Hx Anxiety, Hx Depression Past Surgical History: Reports: Hx Cholecystectomy - 06/28/2015, Hx Vascular Surgery - port put in December, - Immunizations Immunizations up to date: Yes Hx Diphtheria, Pertussis, Tetanus Vaccination: Yes Review of Systems - Review of Systems Notes: REVIEW OF SYSTEMS: CONSTITUTIONAL : Denies fever. Complains of pain all over, everywhere. EENT: Denies eye, ear, nose or mouth or throat pain or other symptoms. CARDIOVASCULAR: Has generalized, nonspecific chest pain. RESPIRATORY: Denies cough, chest congestion, or shortness of breath. GASTROINTESTINAL: Denies abdominal pain or nausea, vomiting, or diarrhea. GENITOURINARY: Denies difficulty or painful urinating, urinary frequency, blood in urine. MUSCULOSKELETAL: Denies back or neck pain. Denies joint pain or swelling. SKIN: Denies rash or skin lesions. NEUROLOGICAL: Denies LOC or altered mental status. Denies headache. Denies sensory loss or motor deficits. ALL OTHER SYSTEMS REVIEWED AND NEGATIVE. Physical Exam - Vital signs Vitals: Temp Pulse Resp BP Pulse Ox 98.7 F 84 16 105/53 L 96 04/17/17 10:32 04/17/17 10:32 04/17/17 10:32 04/17/17 10:32 04/17/17 10:32 Interpretation: Normal. No: Febrile - Notes Notes: PHYSICAL EXAMINATION: GENERAL: Well-appearing, in no acute distress. Vital signs were all normal. Afebrile. HEAD: Atraumatic, normocephalic. EYES: Pupils equal round and reactive to light, extraocular movements intact. ENT: oropharynx clear without exudates. Moist mucous membranes. NECK: Normal range of motion, supple. LUNGS: Breath sounds clear and equal bilaterally. HEART: Regular rate and rhythm without murmurs. ABDOMEN: Soft, nontender. No guarding or rebound. No masses. BACK: No tenderness throughout entire back. Says most painful area is her lumbar back region. EXTREMITIES: Normal range of motion without pain. NEUROLOGICAL: Normal speech, normal gait. Normal sensory, motor, and reflex exams. Awake, alert, and oriented x3. Cranial nerves normal. PSYCH: Normal mood, normal affect. SKIN: Warm, dry, no rashes. Course - Re-evaluation Re-evalutation: 04/17/17 13:57 Labs were stable for this patient. Hemoglobin 9.3. Reticulocyte count is normal. Patient received only minimal relief of her pain with the first 2 mg of Dilaudid IV. I ordered another 2 mg IV. Patient will be admitted to the hospitalist service for pain management. - Vital Signs Vital signs: Temp Pulse Resp BP Pulse Ox 98.7 F 84 17 104/59 L 100 04/17/17 10:32 04/17/17 10:32 04/17/17 13:40 04/17/17 13:40 04/17/17 13:40 - Laboratory Result Diagrams: 04/17/17 11:15 04/17/17 11:15 Laboratory results interpreted by me: 04/17/17 04/17/17 11:15 11:15 WBC 12.4 H RBC 2.75 L Hgb 9.3 L Hct 26.0 L MCH 34.0 H RDW 18.8 H Eosinophils % (Manual) 10 H Metamyelocytes % 2 H Absolute Eos (Manual) 1.2 H Retic Count (auto) 9.73 H Absolute Retic 0.268 H Chloride 111 H BUN 4 L Total Bilirubin 5.0 H - Diagnostic Test Radiology results interpreted by me: 04/17/17 13:57 Chest x-ray shows no acute findings. Discharge - Discharge Clinical Impression: Sickle cell pain crisis Condition: Stable Disposition: ADMITTED OBSERVATION Admitting Provider: Hospitalist Unit Admitted: Medical Floor Referrals: JOIE MOREIRA MD [Primary Care Provider] - Follow up as needed
[2017-04-17 14:07] LABS: APPEARANCE,URINE CLEAR; BILIRUBIN,URINE NEGATIVE (NEGATIVE); COLOR,URINE YELLOW; GLUCOSE, URINE NEGATIVE (NEGATIVE); KETONES,URINE NEGATIVE (NEGATIVE); LEUKOCYTE ESTERASE,URINE NEGATIVE (NEGATIVE); NITRITE,URINE NEGATIVE (NEGATIVE); PROTEIN,URINE NEGATIVE (NEGATIVE); URINE SPECIFIC GRAVITY 1.008
[2017-04-17] MEDS ORDERED: ALBUTEROL SULFATE 0.083% NEB 2.5 MG/3 ML AMPUL NEB PRN (14:39)
[2017-04-17] MEDS ORDERED: ACETAMINOPHEN 325 MG TABLET PO PRN (14:39)
[2017-04-17] MEDS ORDERED: DOCUSATE SODIUM 100 MG/10 ML UDC PO PRN (14:45)
[2017-04-17] MEDS ORDERED: PROMETHAZINE HCL INJ 25 MG/1 ML VIAL IV PRN (14:45)
[2017-04-17] MEDS ORDERED: OXYCODONE HCL IR 5 MG TABLET PO PRN (14:47)
[2017-04-17] MEDS: ONDANSETRON HCL INJ/PF 4 MG/2 ML SDV IV PRN ×2 (16:42→23:22)
[2017-04-17] MEDS: HYDROMORPHONE HCL INJ/PF 2 MG/ML AMPULE IV PRN ×3 (16:43→23:21)
[2017-04-17] MEDS: NORMAL SALINE 1000 ML 1,000 ML IV PRN (16:43)
[2017-04-17] MEDS: DIPHENHYDRAMINE HCL 25 MG CAPSULE PO PRN ×2 (16:46→23:21)
--- NOTE | 2017-04-17 17:01 | PDOC H&P ---
History of Present Illness Admission Date/PCP: 04/17/17 14:30 JOIE MOREIRA MD Patient complains of: Sickle cell pain History of Present Illness: CASSANDRA MIDDLETON is a 22 year old female with a past medical history of sickle cell disease, followed by Dr. Moreira, presents to the emergency department with a complaint of sickle cell pain to her chest, lower back, right knee extending distally. She reports that she was seen in the emergency department last night because her home medication was not sufficient. She was discharged to home and instructed to follow-up with her therapeutic sales specialist. She contacted Dr. Moreira this morning regarding her pain and was instructed back to the emergency department. She states that the pain began approximately 3 days and has gradually worsened with a sudden increase overnight. She denies precipitating events; denies recent illnesses, fever, nausea, vomiting, diarrhea stressful events, cold exposure. Evaluation in the emergency department reveals a hemoglobin of 9.3 which is her baseline, retic count of 9.73, normal UA and chest x-ray. She is referred to the hospitalist service for admission and management of her sickle cell pain. Past Medical History Cardiac Medical History: Reports: DVT - RUE s/p port placement Denies: Coronary Artery Disease, Myocardial Infarction, Hypertension, Pulmonary Embolism Pulmonary Medical History: Reports: Pneumonia, Other - Acute Chest Syndrome Denies: Asthma, Bronchitis, Chronic Obstructive Pulmonary Disease (COPD) EENT Medical History: Reports: None Neurological Medical History: Denies: Hemorrhagic CVA, Ischemic CVA, Migraine, Seizures Endocrine Medical History: Reports: None Renal/ Medical History: Reports: None Malignancy Medical History: Reports: None GI Medical History: Reports: None Musculoskeltal Medical History: Reports: None Denies: Arthritis Skin Medical History: Reports: None Psychiatric Medical History: Reports: Depression, General Anxiety Disorder Hematology: Reports: Anemia, Sickle Cell Disease Infectious Medical History: Reports: None Past Surgical History Past Surgical History: Reports: Cholecystectomy - 06/28/2015, Vascular Surgery - port put in December, Social History Information Source: Patient Lives with: Family Smoking Status: Never Smoker Frequency of Alcohol Use: None Hx Recreational Drug Use: No Drugs: None Hx Prescription Drug Abuse: No - Advance Directive Resuscitation Status: Full Code Family History Family History: Reviewed & Not Pertinent Family History: Pt does not know her mother or father Parental Family History Reviewed: Yes Children Family History Reviewed: Yes Sibling(s) Family History Reviewed.: Yes - Asthma Medication/Allergy Home Medications: Hydroxyurea [Hydrea 500 mg Capsule] 500 mg PO BID 04/17/17 Oxycodone HCl [Oxy-Ir 5 mg Tablet] 5 mg PO Q6HP PRN 04/17/17 Rivaroxaban [Xarelto] 20 mg PO QHS 04/17/17 Allergies/Adverse Reactions: morphine Adverse Reaction (Severe, Verified 04/17/17 10:37) RASH,SWELLING jacob peppers Adverse Reaction (Severe, Uncoded 04/17/17 10:37) throat closes Review of Systems Constitutional: ABSENT: chills, fatigue, fever(s), headache(s), night sweats, weight gain, weight loss Eyes: ABSENT: visual disturbances Ears: ABSENT: hearing changes Nose, Mouth, and Throat: ABSENT: headache(s), mouth pain, sore throat Cardiovascular: PRESENT: as per HPI. ABSENT: chest pain, dyspnea on exertion, edema, orthropnea, palpitations Respiratory: ABSENT: cough, hemoptysis Gastrointestinal: ABSENT: abdominal pain, constipation, diarrhea, hematemesis, hematochezia, nausea, vomiting Genitourinary: ABSENT: dysuria, hematuria Musculoskeletal: PRESENT: as per HPI. ABSENT: joint swelling Integumentary: ABSENT: rash, wounds Neurological: ABSENT: abnormal gait, abnormal speech, confusion, dizziness, focal weakness, syncope Psychiatric: PRESENT: depression. ABSENT: anxiety, homidical ideation, suicidal ideation Endocrine: ABSENT: cold intolerance, heat intolerance, polydipsia, polyuria Hematologic/Lymphatic: PRESENT: as per HPI. ABSENT: easy bleeding, easy bruising Physical Exam Vital Signs: Temp Pulse Resp BP Pulse Ox 98.7 F 84 12 94/59 L 98 04/17/17 10:32 04/17/17 10:32 04/17/17 15:03 04/17/17 14:20 04/17/17 15:03 General appearance: PRESENT: no acute distress, well-developed, well-nourished Head exam: PRESENT: atraumatic, normocephalic Eye exam: PRESENT: conjunctiva pink, EOMI, PERRLA. ABSENT: scleral icterus Ear exam: PRESENT: normal external ear exam Mouth exam: PRESENT: moist, tongue midline Neck exam: ABSENT: carotid bruit, JVD, lymphadenopathy, thyromegaly Respiratory exam: PRESENT: clear to auscultation samaria, symmetrical, unlabored. ABSENT: rales, rhonchi, wheezes Cardiovascular exam: PRESENT: RRR, +S1, +S2. ABSENT: diastolic murmur, rubs, systolic murmur Pulses: PRESENT: normal dorsalis pedis pul Vascular exam: PRESENT: normal capillary refill GI/Abdominal exam: PRESENT: normal bowel sounds, soft. ABSENT: distended, guarding, mass, organolmegaly, rebound, tenderness Rectal exam: PRESENT: deferred Extremities exam: PRESENT: full ROM. ABSENT: calf tenderness, clubbing, pedal edema Neurological exam: PRESENT: alert, awake, oriented to person, oriented to place , oriented to time, oriented to situation, CN II-XII grossly intact. ABSENT: motor sensory deficit Psychiatric exam: PRESENT: appropriate affect, normal mood. ABSENT: homicidal ideation, suicidal ideation Skin exam: PRESENT: dry, intact, warm. ABSENT: cyanosis, rash Results Impressions: Chest X-Ray 04/17/17 10:29 IMPRESSION: NO SIGNIFICANT RADIOGRAPHIC FINDING IN THE CHEST. Assessment & Plan - Diagnosis (1) Sickle cell pain crisis Is this a current diagnosis for this admission?: Yes Plan: The patient is admitted with a sickle cell pain crisis. The patient does have a history of acute chest syndrome. No acute findings were noted on chest x- ray. The patient is not tachycardic, maintains oxygen saturations while on room air, and denies dyspnea. She remains afebrile. No evidence of acute chest syndrome at this time. To continue on her home dose hydroxyurea. She has received a 1 L normal saline bolus; will be placed on maintenance IV fluids at a rate of 150 mL/hr. She is provided oxycodone 5 mg every 6 hours as needed for pain with Dilaudid 2 mg every 2 hours for breakthrough pain. Tylenol is available as needed for pain or fever. Nonpharmacological intervention to include continued mobility and heating pad. Antiemetics are available as needed for nausea and vomiting. Benadryl as needed for itching. We will consult Dr. Moreira, the patient's therapeutic sales specialist. Appreciate his assistance and recommendations. (2) DVT (deep venous thrombosis) Is this a current diagnosis for this admission?: Yes Plan: Present on arrival to right upper extremity secondary to Port-A-Cath procedure done at a another facility last month. To continue on her home dose of Xarelto 20 mg nightly. (3) Anemia Qualifiers: Hemolytic anemia type: other hemoglobinopathy Is this a current diagnosis for this admission?: Yes Plan: Anemia of chronic disease secondary to sickle cell disease. Hemoglobin is currently 9.3 and appears to be at her baseline. We will continue to monitor and transfuse as needed for hemoglobin less than 8. - Time Time Spent: 50 to 70 Minutes Medications reviewed and adjusted accordingly: Yes Anticipated discharge: Home
[2017-04-17] MEDS: HYDROXYUREA 500 MG CAPSULE PO SCH (19:08)
[2017-04-17] MEDS: FAMOTIDINE 20 MG TABLET PO SCH (23:21)
[2017-04-17] MEDS: RIVAROXABAN 10 MG TABLET PO SCH (23:22)
[2017-04-18] MEDS: HYDROMORPHONE HCL INJ/PF 2 MG/ML AMPULE IV PRN ×7 (02:35→20:44)
[2017-04-18 07:09] LABS: HEMATOCRIT 22.7 % (36.0-47.0); HEMOGLOBIN 8.1 g/dL (12.0-15.5); MEAN CORPUSCULAR HEMOGLOBIN 34.3 pg (27.0-33.4); MEAN CORPUSCULAR HGB CONC 35.6 g/dL (32.0-36.0); MEAN CORPUSCULAR VOLUME 96 fl (80-97); PLATELET COUNT 374 10^3/uL (150-450); RED BLOOD COUNT 2.36 10^6/uL (3.72-5.28); RED CELL DISTRIBUTION WIDTH 19.2 % (11.5-14.0); WHITE BLOOD COUNT 15.8 10^3/uL (4.0-10.5)
[2017-04-18] MEDS: ONDANSETRON HCL INJ/PF 4 MG/2 ML SDV IV PRN (07:23)
[2017-04-18] MEDS: DIPHENHYDRAMINE HCL 25 MG CAPSULE PO PRN (07:23)
[2017-04-18] MEDS: NORMAL SALINE 1000 ML 1,000 ML IV PRN ×2 (07:24→18:20)
[2017-04-18 07:25] LABS: ANION GAP 7 (5-19); BLOOD UREA NITROGEN 6 mg/dL (7-20); CARBON DIOXIDE 25 mmol/L (22-30); CHLORIDE 109 mmol/L (98-107); GLUCOSE 82 mg/dL (75-110); SODIUM 140.9 mmol/L (137-145)
[2017-04-18] MEDS ORDERED: OXYCODONE HCL IR 5 MG TABLET PO PRN (07:47)
[2017-04-18 07:51] LABS: ABSOLUTE LYMPHOCYTES# (MANUAL) 4.3 10^3/uL (0.5-4.7); ABSOLUTE MONOCYTES # (MANUAL) 0.6 10^3/uL (0.1-1.4); ABSOLUTE NEUTROPHILS# (MANUAL) 9.6 10^3/uL (1.7-8.2); BASOPHILS % (MANUAL) 0 % (0-2); EOSINOPHILS % (MANUAL) 8 % (0-6); LYMPHOCYTES % (MANUAL) 27 % (13-45); MONOCYTES % (MANUAL) 4 % (3-13); NUCLEATED RED BLOOD CELLS 5 /100 WBC (0); SEGMENTED NEUTROPHILS % (MAN) 61 % (42-78); TOTAL CELLS COUNTED 100
[2017-04-18 07:53] LABS: HYPOCHROMASIA 1+; POLYCHROMASIA 1+
[2017-04-18 07:54] LABS: ANISOCYTOSIS 2+; PLATELET COMMENT ADEQUATE; POIKILOCYTOSIS 1+; SCHISTOCYTES SLIGHT; SICKLE RED CELLS SLIGHT; TARGET CELLS SLIGHT
--- NOTE | 2017-04-18 08:50 | PDOC CONSULTATION ---
Consultation Consult Date: 04/18/17 Attending physician:: FELIBERTO DELGADILLO Consult reason:: Sickle cell dx with crisis History of Present Illness Admission Date/PCP: 04/17/17 14:30 JOIE MOREIRA MD Patient complains of: Sickle related pain, weakness, dehydration History of Present Illness: 22-year-old female with known history of sickle cell disease with recurrent crisis, recently she began having pain in the back and arms and legs consistent with her usual crisis, she came to the ED got hydration, some IV pain medication and went home but unfortunately the oral oxycodone was not controlling the pain and ultimately we instructed her to come to the ED. In the ED, she was in fairly distinct pain, she was admitted under the hospitalist service and is continually receiving IV fluids now and getting Dilaudid IV every 2 hours which seems to be controlling the pain. She is having some pruriti associated with the pain medication, I ordered some Benadryl IV for her. Past Medical History Cardiac Medical History: Reports: DVT - RUE s/p port placement Denies: Coronary Artery Disease, Myocardial Infarction, Hypertension, Pulmonary Embolism Pulmonary Medical History: Reports: Pneumonia, Other - Acute Chest Syndrome Denies: Asthma, Bronchitis, Chronic Obstructive Pulmonary Disease (COPD) EENT Medical History: Reports: None Neurological Medical History: Denies: Hemorrhagic CVA, Ischemic CVA, Migraine, Seizures Endocrine Medical History: Reports: None Renal/ Medical History: Reports: None Malignancy Medical History: Reports: None GI Medical History: Reports: None Musculoskeltal Medical History: Reports: None Denies: Arthritis Skin Medical History: Reports: None Psychiatric Medical History: Reports: Depression, General Anxiety Disorder Hematology: Reports: Anemia, Sickle Cell Disease Infectious Medical History: Reports: None Past Surgical History Past Surgical History: Reports: Cholecystectomy - 06/28/2015, Vascular Surgery - port put in December, Social History Information Source: Patient Lives with: Family Smoking Status: Current Some Day Smoker Frequency of Alcohol Use: None Hx Recreational Drug Use: No Drugs: None Hx Prescription Drug Abuse: No - Advance Directive Resuscitation Status: Full Code Family History Family History: Reviewed & Not Pertinent, Hypertension, Other - Sickle cell Parental Family History Reviewed: Yes Children Family History Reviewed: Yes Sibling(s) Family History Reviewed.: Yes Medication/Allergy Home Medications: Hydroxyurea [Hydrea 500 mg Capsule] 500 mg PO BID 04/17/17 Oxycodone HCl [Oxy-Ir 5 mg Tablet] 5 mg PO Q6HP PRN 04/17/17 Rivaroxaban [Xarelto] 20 mg PO QHS 04/17/17 Folic Acid 1 tab PO DAILY 04/18/17 Allergies/Adverse Reactions: morphine Adverse Reaction (Severe, Verified 04/17/17 10:37) RASH,SWELLING jacob peppers Adverse Reaction (Severe, Uncoded 04/17/17 10:37) throat closes Review of Systems Constitutional: PRESENT: fatigue, weakness Cardiovascular: PRESENT: chest pain Gastrointestinal: PRESENT: nausea Musculoskeletal: PRESENT: back pain Physical Exam Vital Signs: Temp Pulse Resp BP Pulse Ox 98.0 F 83 16 107/56 L 100 04/18/17 05:00 04/18/17 05:00 04/18/17 05:00 04/18/17 05:00 04/18/17 05:00 Intake & Output 04/17/17 04/18/17 04/19/17 06:59 06:59 06:59 Intake Total 120 Output Total 250 Balance -130 Weight 60.2 kg General appearance: PRESENT: no acute distress, well-developed, well-nourished Head exam: PRESENT: atraumatic, normocephalic Eye exam: PRESENT: conjunctiva pink, EOMI, PERRLA. ABSENT: scleral icterus Ear exam: PRESENT: normal external ear exam Mouth exam: PRESENT: moist, tongue midline Neck exam: ABSENT: carotid bruit, JVD, lymphadenopathy, thyromegaly Respiratory exam: PRESENT: clear to auscultation samaria. ABSENT: rales, rhonchi, wheezes Cardiovascular exam: PRESENT: RRR. ABSENT: diastolic murmur, rubs, systolic murmur Pulses: PRESENT: normal dorsalis pedis pul Vascular exam: PRESENT: normal capillary refill GI/Abdominal exam: PRESENT: normal bowel sounds, soft. ABSENT: distended, guarding, mass, organolmegaly, rebound, tenderness Rectal exam: PRESENT: deferred Extremities exam: PRESENT: full ROM. ABSENT: calf tenderness, clubbing, pedal edema Neurological exam: PRESENT: alert, awake, oriented to person, oriented to place , oriented to time, oriented to situation, CN II-XII grossly intact. ABSENT: motor sensory deficit Psychiatric exam: PRESENT: appropriate affect, normal mood. ABSENT: homicidal ideation, suicidal ideation Skin exam: PRESENT: dry, intact, warm. ABSENT: cyanosis, rash Results Laboratory Results: 04/18/17 06:00 04/18/17 06:00 04/18/17 04/18/17 06:00 06:00 WBC 15.8 H RBC 2.36 L Hgb 8.1 L Hct 22.7 L MCV 96 MCH 34.3 H MCHC 35.6 RDW 19.2 H Plt Count 374 Seg Neutrophils % Not Reportable Lymphocytes % Not Reportable Monocytes % Not Reportable Eosinophils % Not Reportable Basophils % Not Reportable Absolute Neutrophils Not Reportable Absolute Lymphocytes Not Reportable Absolute Monocytes Not Reportable Absolute Eosinophils Not Reportable Absolute Basophils Not Reportable Sodium 140.9 Potassium 4.0 Chloride 109 H Carbon Dioxide 25 Anion Gap 7 BUN 6 L Creatinine 0.55 Est GFR ( Amer) > 60 Est GFR (Non-Af Amer) > 60 Glucose 82 Calcium 9.0 Impressions: Chest X-Ray 04/17/17 10:29 IMPRESSION: NO SIGNIFICANT RADIOGRAPHIC FINDING IN THE CHEST. Assessment & Plan - Diagnosis (1) Sickle cell pain crisis Is this a current diagnosis for this admission?: Yes Plan: Sickle cell disease with pain crisis, continue with current dose of IV Dilaudid that seems to be controlling her pain appropriately, I have added a K pad for comfort, she has other supportive measures, I added a bowel regimen for her. 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 - Time Time Spent: 50 to 70 Minutes - Inpatient Certification Based on my medical assessment, after consideration of the patient's comorbidities, presenting symptoms, or acuity I expect that the services needed warrant INPATIENT care.: Yes I certify that my determination is in accordance with my understanding of Medicare's requirements for reasonable and necessary INPATIENT services [42 CFR 412.3e].: Yes Medical Necessity: Need For IV Fluids, Need for Pain Control
[2017-04-18] MEDS: DIPHENHYDRAMINE HCL 50 MG/ML VIAL IV PRN ×2 (09:17→15:14)
[2017-04-18] MEDS: OXYCODONE HCL IR 5 MG TABLET PO PRN ×3 (09:17→22:48)
[2017-04-18] MEDS: FAMOTIDINE 20 MG TABLET PO SCH ×2 (09:18→22:48)
[2017-04-18] MEDS: HYDROXYUREA 500 MG CAPSULE PO SCH ×2 (09:18→18:19)
[2017-04-18] MEDS ORDERED: (PENDING PHARMACY ID) (Rivaroxaban [Xarelto] 1 TAB) PO SCH (10:00)
[2017-04-18] MEDS ORDERED: (PENDING PHARMACY ID) (Folic Acid [Folic Acid] 0.4 MG) PO SCH (10:00)
--- NOTE | 2017-04-18 10:59 | PDOC PROGRESS REPORT ---
Subjective Progress Note for:: 04/18/17 Subjective:: The patient is a 22-year-old female with a past medical history significant only for sickle cell crisis. She was admitted on 02/15/18 for sickle cell crisis pain typical of her usual pain. She is receiving IV fluid hydration and IV Dilaudid for breakthrough pain with scheduled oxycodone. Patient is seen on morning rounds. She reports adequate pain control overnight and her only complaint at this time is itching r/t Dilaudid. Reason For Visit: SICKLE CELL PAIN Physical Exam Vital Signs: Temp Pulse Resp BP Pulse Ox 97.9 F 86 12 102/46 L 97 04/18/17 07:45 04/18/17 07:45 04/18/17 07:45 04/18/17 07:45 04/18/17 07:45 Intake & Output 04/17/17 04/18/17 04/19/17 06:59 06:59 06:59 Intake Total 120 Output Total 250 Balance -130 Weight 60.2 kg General appearance: PRESENT: no acute distress, well-developed, well-nourished Head exam: PRESENT: atraumatic, normocephalic Eye exam: PRESENT: conjunctiva pink, EOMI, PERRLA. ABSENT: scleral icterus Ear exam: PRESENT: normal external ear exam Mouth exam: PRESENT: moist, tongue midline Neck exam: ABSENT: carotid bruit, JVD, lymphadenopathy, thyromegaly Respiratory exam: PRESENT: clear to auscultation samaria, symmetrical, unlabored. ABSENT: rales, rhonchi, wheezes Cardiovascular exam: PRESENT: RRR, +S1, +S2. ABSENT: diastolic murmur, rubs, systolic murmur Pulses: PRESENT: normal dorsalis pedis pul Vascular exam: PRESENT: normal capillary refill GI/Abdominal exam: PRESENT: normal bowel sounds, soft. ABSENT: distended, guarding, mass, organolmegaly, rebound, tenderness Rectal exam: PRESENT: deferred Extremities exam: PRESENT: full ROM. ABSENT: calf tenderness, clubbing, pedal edema Neurological exam: PRESENT: alert, awake, oriented to person, oriented to place , oriented to time, oriented to situation, CN II-XII grossly intact. ABSENT: motor sensory deficit Psychiatric exam: PRESENT: appropriate affect, normal mood. ABSENT: homicidal ideation, suicidal ideation Skin exam: PRESENT: dry, intact, warm. ABSENT: cyanosis, rash Results Laboratory Results: 04/18/17 06:00 04/18/17 06:00 04/18/17 04/18/17 06:00 06:00 WBC 15.8 H RBC 2.36 L Hgb 8.1 L Hct 22.7 L MCV 96 MCH 34.3 H MCHC 35.6 RDW 19.2 H Plt Count 374 Seg Neutrophils % Not Reportable Lymphocytes % Not Reportable Monocytes % Not Reportable Eosinophils % Not Reportable Basophils % Not Reportable Absolute Neutrophils Not Reportable Absolute Lymphocytes Not Reportable Absolute Monocytes Not Reportable Absolute Eosinophils Not Reportable Absolute Basophils Not Reportable Sodium 140.9 Potassium 4.0 Chloride 109 H Carbon Dioxide 25 Anion Gap 7 BUN 6 L Creatinine 0.55 Est GFR ( Amer) > 60 Est GFR (Non-Af Amer) > 60 Glucose 82 Calcium 9.0 Impressions: Chest X-Ray 04/17/17 10:29 IMPRESSION: NO SIGNIFICANT RADIOGRAPHIC FINDING IN THE CHEST. Assessment & Plan - Diagnosis (1) Sickle cell pain crisis Is this a current diagnosis for this admission?: Yes Plan: The patient is admitted with a sickle cell pain crisis. The patient does have a history of acute chest syndrome. No acute findings were noted on chest x- ray. The patient is not tachycardic, maintains oxygen saturations while on room air, and denies dyspnea. She remains afebrile. No evidence of acute chest syndrome at this time. To continue on her home dose hydroxyurea. Continue maintenance IV fluids at a rate of 150 mL/hr. She is provided scheduled oxycodone 5 mg every 6 hours with Dilaudid 2 mg every 2 hours for breakthrough pain. Tylenol is available as needed for pain or fever. Nonpharmacological intervention to include continued mobility and heating pad. Antiemetics are available as needed for nausea and vomiting. Benadryl as needed for itching. We will consult Dr. Baum, the patient's hardware engineering manager. Appreciate his assistance and recommendations. (2) DVT (deep venous thrombosis) Is this a current diagnosis for this admission?: Yes Plan: Present on arrival to right upper extremity secondary to Port-A-Cath procedure done at a another facility last month. To continue on her home dose of Xarelto 20 mg nightly. 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 Hemoglobin is down to 8.1 today, which may be in part due to hemodilution as well as her sickle crisis. We will continue to monitor and transfuse as needed for hemoglobin less than 8. Risks and benefits of blood transfusion have been discussed with the patient and she is agreeable if needed. - Time Time Spent with patient: 15-24 minutes Medications reviewed and adjusted accordingly: Yes Anticipated discharge: Home - Inpatient Certification Based on my medical assessment, after consideration of the patient's comorbidities, presenting symptoms, or acuity I expect that the services needed warrant INPATIENT care.: Yes I certify that my determination is in accordance with my understanding of Medicare's requirements for reasonable and necessary INPATIENT services [42 CFR 412.3e].: Yes Medical Necessity: Failure to Improve With Outpatient Therapy, Need For IV Fluids, Need for Pain Control
[2017-04-18] MEDS ORDERED: DOCUSATE SODIUM 100 MG CAPSULE PO PRN (20:51)
[2017-04-18] MEDS: RIVAROXABAN 10 MG TABLET PO SCH (22:48)
[2017-04-19] MEDS: NORMAL SALINE 1000 ML 1,000 ML IV PRN ×3 (01:05→22:14)
[2017-04-19] MEDS: HYDROMORPHONE HCL INJ/PF 2 MG/ML AMPULE IV PRN ×7 (03:55→23:41)
[2017-04-19 05:10] LABS: HEMATOCRIT 22.9 % (36.0-47.0); HEMOGLOBIN 8.2 g/dL (12.0-15.5); MEAN CORPUSCULAR HEMOGLOBIN 34.3 pg (27.0-33.4); MEAN CORPUSCULAR HGB CONC 35.6 g/dL (32.0-36.0); MEAN CORPUSCULAR VOLUME 96 fl (80-97); PLATELET COUNT 378 10^3/uL (150-450); RED BLOOD COUNT 2.38 10^6/uL (3.72-5.28); RED CELL DISTRIBUTION WIDTH 19.6 % (11.5-14.0); WHITE BLOOD COUNT 12.9 10^3/uL (4.0-10.5)
[2017-04-19 05:30] LABS: ANION GAP 8 (5-19); BLOOD UREA NITROGEN 4 mg/dL (7-20); CALCIUM 8.6 mg/dL (8.4-10.2); CARBON DIOXIDE 27 mmol/L (22-30); CHLORIDE 107 mmol/L (98-107); GLUCOSE 92 mg/dL (75-110); POTASSIUM 3.8 mmol/L (3.6-5.0); SODIUM 141.8 mmol/L (137-145)
[2017-04-19 05:53] LABS: ABSOLUTE LYMPHOCYTES# (MANUAL) 4.9 10^3/uL (0.5-4.7); ABSOLUTE MONOCYTES # (MANUAL) 0.8 10^3/uL (0.1-1.4); ABSOLUTE NEUTROPHILS# (MANUAL) 6.3 10^3/uL (1.7-8.2); BAND NEUTROPHILS % (MANUAL) 2 % (3-5); BASOPHILS % (MANUAL) 0 % (0-2); EOSINOPHILS % (MANUAL) 7 % (0-6); LYMPHOCYTES % (MANUAL) 37 % (13-45); MONOCYTES % (MANUAL) 6 % (3-13); NUCLEATED RED BLOOD CELLS 2 /100 WBC (0); SEGMENTED NEUTROPHILS % (MAN) 47 % (42-78); TOTAL CELLS COUNTED 100
[2017-04-19 05:55] LABS: ANISOCYTOSIS 2+; PLATELET COMMENT ADEQUATE; POIKILOCYTOSIS 1+; POLYCHROMASIA SLIGHT; SICKLE RED CELLS SLIGHT; TARGET CELLS 1+; TOXIC VACUOLATION PRESENT
[2017-04-19] MEDS: OXYCODONE HCL IR 5 MG TABLET PO PRN ×4 (05:55→22:11)
--- NOTE | 2017-04-19 10:07 | PDOC PROGRESS REPORT ---
Subjective Progress Note for:: 04/19/17 Subjective:: Patient states her pain is about the same. She denies any nausea. No constipation. She has not yet been out walking in the hallway, but she is out of bed frequently. On ROS, chest and back pain remain. No dyspnea. No swelling. Reason For Visit: SICKLE CELL CRISIS,ANEMIA Physical Exam Vital Signs: Temp Pulse Resp BP Pulse Ox 98.2 F 88 16 104/56 L 98 04/19/17 04:10 04/19/17 04:10 04/19/17 04:10 04/19/17 04:10 04/19/17 04:10 Intake & Output 04/18/17 04/19/17 04/20/17 06:59 06:59 06:59 Intake Total 460 Balance 460 Weight 64.6 kg General appearance: PRESENT: no acute distress, well-nourished Head exam: PRESENT: atraumatic Mouth exam: PRESENT: moist Respiratory exam: PRESENT: unlabored Neurological exam: PRESENT: alert, awake, oriented to person, oriented to place , oriented to time Psychiatric exam: PRESENT: appropriate affect Focused psych exam: ABSENT: restlessness Skin exam: PRESENT: normal color Results Laboratory Results: 04/19/17 04:15 04/19/17 04:15 04/19/17 04/19/17 04/19/17 04:15 04:15 08:35 WBC 12.9 H RBC 2.38 L Hgb 8.2 L Hct 22.9 L MCV 96 MCH 34.3 H MCHC 35.6 RDW 19.6 H Plt Count 378 Seg Neutrophils % Not Reportable Lymphocytes % Not Reportable Monocytes % Not Reportable Eosinophils % Not Reportable Basophils % Not Reportable Absolute Neutrophils Not Reportable Absolute Lymphocytes Not Reportable Absolute Monocytes Not Reportable Absolute Eosinophils Not Reportable Absolute Basophils Not Reportable Sodium 141.8 Potassium 3.8 Chloride 107 Carbon Dioxide 27 Anion Gap 8 BUN 4 L Creatinine 0.51 L Est GFR ( Amer) > 60 Est GFR (Non-Af Amer) > 60 Glucose 92 Calcium 8.6 Blood Type O POSITIVE Antibody Screen NEGATIVE Impressions: Chest X-Ray 04/17/17 10:29 IMPRESSION: NO SIGNIFICANT RADIOGRAPHIC FINDING IN THE CHEST. Assessment & Plan - Diagnosis (1) Sickle cell pain crisis Is this a current diagnosis for this admission?: Yes Plan: Continue current pain medications, Fluids, and Oxygen. No indication for transfusion at this time. - Plan Summary Plan Summary: I have encouraged her to drink fluids, and walk in the hallway. She is on anticoagulation. Please call me with concerns.
--- NOTE | 2017-04-19 10:12 | PDOC PROGRESS REPORT ---
Subjective Progress Note for:: 04/19/17 Subjective:: The patient is a 22-year-old female with a past medical history significant only for sickle cell crisis. She was admitted on 02/15/18 for sickle cell crisis pain typical of her usual pain. She is receiving IV fluid hydration and IV Dilaudid for breakthrough pain with scheduled oxycodone. Patient is seen on morning rounds. She reports adequate pain control overnight and slept much better. Itching has improved with IV Benadryl. She has no new questions or concerns. Ready for discharge once pain is adequately controlled. Reason For Visit: SICKLE CELL CRISIS,ANEMIA Physical Exam Vital Signs: Temp Pulse Resp BP Pulse Ox 98.1 F 87 15 96/75 L 98 04/19/17 07:39 04/19/17 07:39 04/19/17 07:39 04/19/17 07:39 04/19/17 07:39 Intake & Output 04/18/17 04/19/17 04/20/17 06:59 06:59 06:59 Intake Total 460 Balance 460 Weight 64.6 kg General appearance: PRESENT: no acute distress, well-developed, well-nourished Head exam: PRESENT: atraumatic, normocephalic Eye exam: PRESENT: conjunctiva pink, EOMI, PERRLA. ABSENT: scleral icterus Ear exam: PRESENT: normal external ear exam Mouth exam: PRESENT: moist, tongue midline Neck exam: ABSENT: carotid bruit, JVD, lymphadenopathy, thyromegaly Respiratory exam: PRESENT: clear to auscultation samaria, symmetrical, unlabored. ABSENT: rales, rhonchi, wheezes Cardiovascular exam: PRESENT: RRR, +S1, +S2. ABSENT: diastolic murmur, rubs, systolic murmur Pulses: PRESENT: normal dorsalis pedis pul Vascular exam: PRESENT: normal capillary refill GI/Abdominal exam: PRESENT: normal bowel sounds, soft. ABSENT: distended, guarding, mass, organolmegaly, rebound, tenderness Rectal exam: PRESENT: deferred Extremities exam: PRESENT: full ROM. ABSENT: calf tenderness, clubbing, pedal edema Neurological exam: PRESENT: alert, awake, oriented to person, oriented to place , oriented to time, oriented to situation, CN II-XII grossly intact. ABSENT: motor sensory deficit Psychiatric exam: PRESENT: appropriate affect, normal mood. ABSENT: homicidal ideation, suicidal ideation Skin exam: PRESENT: dry, intact, warm. ABSENT: cyanosis, rash Results Laboratory Results: 04/19/17 04:15 04/19/17 04:15 04/19/17 04/19/17 04/19/17 04:15 04:15 08:35 WBC 12.9 H RBC 2.38 L Hgb 8.2 L Hct 22.9 L MCV 96 MCH 34.3 H MCHC 35.6 RDW 19.6 H Plt Count 378 Seg Neutrophils % Not Reportable Lymphocytes % Not Reportable Monocytes % Not Reportable Eosinophils % Not Reportable Basophils % Not Reportable Absolute Neutrophils Not Reportable Absolute Lymphocytes Not Reportable Absolute Monocytes Not Reportable Absolute Eosinophils Not Reportable Absolute Basophils Not Reportable Sodium 141.8 Potassium 3.8 Chloride 107 Carbon Dioxide 27 Anion Gap 8 BUN 4 L Creatinine 0.51 L Est GFR ( Amer) > 60 Est GFR (Non-Af Amer) > 60 Glucose 92 Calcium 8.6 Blood Type O POSITIVE Antibody Screen NEGATIVE Impressions: Chest X-Ray 04/17/17 10:29 IMPRESSION: NO SIGNIFICANT RADIOGRAPHIC FINDING IN THE CHEST. Assessment & Plan - Diagnosis (1) Sickle cell pain crisis Is this a current diagnosis for this admission?: Yes Plan: The patient is admitted with a sickle cell pain crisis. The patient does have a history of acute chest syndrome. No acute findings were noted on chest x- ray. The patient is not tachycardic, maintains oxygen saturations while on room air, and denies dyspnea. She remains afebrile. No evidence of acute chest syndrome at this time. To continue on her home dose hydroxyurea. Continue maintenance IV fluids at a rate of 150 mL/hr. She is provided scheduled oxycodone 5 mg every 6 hours with Dilaudid 2 mg every 2 hours for breakthrough pain. Pain is improved with scheduled medication. Tylenol is available as needed for pain or fever. Nonpharmacological intervention to include continued mobility and heating pad. Antiemetics are available as needed for nausea and vomiting. Benadryl as needed for itching. We will consult Dr. Baum, the patient's script reader. Appreciate his assistance and recommendations. (2) DVT (deep venous thrombosis) Is this a current diagnosis for this admission?: Yes Plan: Present on arrival to right upper extremity secondary to Port-A-Cath procedure done at a another facility last month. To continue on her home dose of Xarelto 20 mg nightly. Encouraged increased mobility/ambulation. 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 Hgb stable at 8.2 We will continue to monitor and transfuse as needed for hemoglobin less than 8. Risks and benefits of blood transfusion have been discussed with the patient and she is agreeable if needed. - Time Time Spent with patient: 15-24 minutes Medications reviewed and adjusted accordingly: Yes Anticipated discharge: Home Within: Other - Once pain is adequately controlled. - Inpatient Certification Based on my medical assessment, after consideration of the patient's comorbidities, presenting symptoms, or acuity I expect that the services needed warrant INPATIENT care.: Yes I certify that my determination is in accordance with my understanding of Medicare's requirements for reasonable and necessary INPATIENT services [42 CFR 412.3e].: Yes Medical Necessity: Need For IV Fluids, Need for Pain Control
[2017-04-19] MEDS: HYDROXYUREA 500 MG CAPSULE PO SCH ×2 (10:26→17:16)
[2017-04-19] MEDS: FAMOTIDINE 20 MG TABLET PO SCH ×2 (10:26→22:14)
[2017-04-19 11:01] LABS: ALANINE AMINOTRANSFERASE 24 U/L (9-52); ALBUMIN 3.5 g/dL (3.5-5.0); ALKALINE PHOSPHATASE 56 U/L (38-126); ANION GAP 7 (5-19); ASPARTATE AMINO TRANSFERASE 28 U/L (14-36); BILIRUBIN,DIRECT 0.3 mg/dL (0.0-0.4); BILIRUBIN,TOTAL 3.9 mg/dL (0.2-1.3); BLOOD UREA NITROGEN 4 mg/dL (7-20); CARBON DIOXIDE 27 mmol/L (22-30); CHLORIDE 108 mmol/L (98-107); GLUCOSE 75 mg/dL (75-110); POTASSIUM 3.9 mmol/L (3.6-5.0); SODIUM 141.9 mmol/L (137-145); TOTAL PROTEIN 6.2 g/dL (6.3-8.2)
--- NOTE | 2017-04-19 22:13 | EKG REPORT ---
SEVERITY:- ABNORMAL ECG - SINUS RHYTHM FIRST DEGREE AV BLOCK BORDERLINE T ABNORMALITIES, INFERIOR LEADS : Confirmed by: Nathan Lopez 19-Apr-2017 22:11:41
[2017-04-19] MEDS: RIVAROXABAN 10 MG TABLET PO SCH (22:15)
[2017-04-20] MEDS: HYDROMORPHONE HCL INJ/PF 2 MG/ML AMPULE IV PRN ×9 (01:54→23:03)
[2017-04-20] MEDS: OXYCODONE HCL IR 5 MG TABLET PO PRN ×4 (05:25→22:31)
[2017-04-20] MEDS: NORMAL SALINE 1000 ML 1,000 ML IV PRN ×2 (05:58→23:04)
[2017-04-20 06:22] LABS: HEMATOCRIT 20.7 % (36.0-47.0); MEAN CORPUSCULAR HEMOGLOBIN 34.3 pg (27.0-33.4); MEAN CORPUSCULAR HGB CONC 36.1 g/dL (32.0-36.0); MEAN CORPUSCULAR VOLUME 95 fl (80-97); PLATELET COUNT 358 10^3/uL (150-450); RED BLOOD COUNT 2.17 10^6/uL (3.72-5.28); RED CELL DISTRIBUTION WIDTH 20.1 % (11.5-14.0); WHITE BLOOD COUNT 12.9 10^3/uL (4.0-10.5)
[2017-04-20 06:27] LABS: HEMOGLOBIN 7.5 g/dL (12.0-15.5)
[2017-04-20 06:51] LABS: ANION GAP 7 (5-19); BLOOD UREA NITROGEN 6 mg/dL (7-20); CALCIUM 8.9 mg/dL (8.4-10.2); CARBON DIOXIDE 26 mmol/L (22-30); CHLORIDE 108 mmol/L (98-107); GLUCOSE 84 mg/dL (75-110); LDH 713 U/L (313-618); POTASSIUM 3.9 mmol/L (3.6-5.0); SODIUM 140.5 mmol/L (137-145)
[2017-04-20 07:15] LABS: ABSOLUTE LYMPHOCYTES# (MANUAL) 3.2 10^3/uL (0.5-4.7); ABSOLUTE MONOCYTES # (MANUAL) 1.3 10^3/uL (0.1-1.4); ABSOLUTE NEUTROPHILS# (MANUAL) 6.8 10^3/uL (1.7-8.2); BASOPHILS % (MANUAL) 0 % (0-2); EOSINOPHILS % (MANUAL) 12 % (0-6); LYMPHOCYTES % (MANUAL) 25 % (13-45); MONOCYTES % (MANUAL) 10 % (3-13); NUCLEATED RED BLOOD CELLS 5 /100 WBC (0); SEGMENTED NEUTROPHILS % (MAN) 53 % (42-78); TOTAL CELLS COUNTED 100
[2017-04-20 07:16] LABS: PLATELET COMMENT ADEQUATE
[2017-04-20 07:19] LABS: HYPOCHROMASIA 2+; POIKILOCYTOSIS 2+; SICKLE RED CELLS SLIGHT
[2017-04-20 07:20] LABS: SCHISTOCYTES 1+; TARGET CELLS SLIGHT
[2017-04-20] MEDS: FAMOTIDINE 20 MG TABLET PO SCH ×2 (10:07→21:26)
[2017-04-20] MEDS: HYDROXYUREA 500 MG CAPSULE PO SCH ×2 (10:07→17:00)
[2017-04-20] MEDS: ONDANSETRON HCL INJ/PF 4 MG/2 ML SDV IV PRN (12:05)
[2017-04-20] MEDS ORDERED: NORMAL SALINE 1000 ML 1,000 ML IV PRN (13:38)
--- NOTE | 2017-04-20 13:39 | PDOC PROGRESS REPORT ---
Subjective Progress Note for:: 04/20/17 Subjective:: The patient is a 22-year-old female with a past medical history significant only for sickle cell crisis. She was admitted on 02/15/18 for sickle cell crisis pain typical of her usual pain. She is receiving IV fluid hydration and IV Dilaudid for breakthrough pain with scheduled oxycodone. Patient is seen on morning rounds. She reports continued pain that is adequately well controlled by medications. Itching has improved with IV Benadryl. She has been ambulating in the hallways. She has no new questions or concerns. Ready for discharge once pain is adequately controlled. Reason For Visit: SICKLE CELL CRISIS,ANEMIA Physical Exam Vital Signs: Temp Pulse Resp BP Pulse Ox 97.8 F 78 17 104/56 L 96 04/20/17 11:41 04/20/17 11:41 04/20/17 11:41 04/20/17 11:41 04/20/17 11:41 Intake & Output 04/19/17 04/20/17 04/21/17 06:59 06:59 06:59 Intake Total 460 6448 Output Total 600 Balance 460 5848 Weight 64.6 kg 64.7 kg General appearance: PRESENT: no acute distress, well-developed, well-nourished Head exam: PRESENT: atraumatic, normocephalic Eye exam: PRESENT: conjunctiva pink, EOMI, PERRLA. ABSENT: scleral icterus Ear exam: PRESENT: normal external ear exam Mouth exam: PRESENT: moist, tongue midline Neck exam: ABSENT: carotid bruit, JVD, lymphadenopathy, thyromegaly Respiratory exam: PRESENT: clear to auscultation samaria, symmetrical, unlabored. ABSENT: rales, rhonchi, wheezes Cardiovascular exam: PRESENT: RRR, +S1, +S2. ABSENT: diastolic murmur, rubs, systolic murmur Pulses: PRESENT: normal dorsalis pedis pul Vascular exam: PRESENT: normal capillary refill GI/Abdominal exam: PRESENT: normal bowel sounds, soft. ABSENT: distended, guarding, mass, organolmegaly, rebound, tenderness Rectal exam: PRESENT: deferred Extremities exam: PRESENT: full ROM. ABSENT: calf tenderness, clubbing, pedal edema Neurological exam: PRESENT: alert, awake, oriented to person, oriented to place , oriented to time, oriented to situation, CN II-XII grossly intact. ABSENT: motor sensory deficit Psychiatric exam: PRESENT: appropriate affect, normal mood. ABSENT: homicidal ideation, suicidal ideation Skin exam: PRESENT: dry, intact, warm. ABSENT: cyanosis, rash Results Laboratory Results: 04/20/17 06:00 04/20/17 06:00 04/20/17 04/20/17 06:00 06:00 WBC 12.9 H RBC 2.17 L Hgb 7.5 L Hct 20.7 L MCV 95 MCH 34.3 H MCHC 36.1 H RDW 20.1 H Plt Count 358 Seg Neutrophils % Not Reportable Lymphocytes % Not Reportable Monocytes % Not Reportable Eosinophils % Not Reportable Basophils % Not Reportable Absolute Neutrophils Not Reportable Absolute Lymphocytes Not Reportable Absolute Monocytes Not Reportable Absolute Eosinophils Not Reportable Absolute Basophils Not Reportable Sodium 140.5 Potassium 3.9 Chloride 108 H Carbon Dioxide 26 Anion Gap 7 BUN 6 L Creatinine 0.51 L Est GFR ( Amer) > 60 Est GFR (Non-Af Amer) > 60 Glucose 84 Calcium 8.9 Impressions: Chest X-Ray 04/17/17 10:29 IMPRESSION: NO SIGNIFICANT RADIOGRAPHIC FINDING IN THE CHEST. Assessment & Plan - Diagnosis (1) Sickle cell pain crisis Is this a current diagnosis for this admission?: Yes Plan: The patient is admitted with a sickle cell pain crisis. The patient does have a history of acute chest syndrome. No acute findings were noted on chest x- ray. The patient is not tachycardic, maintains oxygen saturations while on room air, and denies dyspnea. She remains afebrile. No evidence of acute chest syndrome at this time. To continue on her home dose hydroxyurea. Continue maintenance IV fluids at a rate of 150 mL/hr. She is provided scheduled oxycodone 5 mg every 6 hours with Dilaudid 2 mg every 2 hours for breakthrough pain. Pain is improved with scheduled medication. Tylenol is available as needed for pain or fever. Nonpharmacological intervention to include continued mobility and heating pad. Antiemetics are available as needed for nausea and vomiting. Benadryl as needed for itching. We will consult Dr. Baum, the patient's fitness and wellness instructor. Appreciate his assistance and recommendations. (2) DVT (deep venous thrombosis) Is this a current diagnosis for this admission?: Yes Plan: Present on arrival to right upper extremity secondary to Port-A-Cath procedure done at a another facility last month. To continue on her home dose of Xarelto 20 mg nightly. Encouraged increased mobility/ambulation. 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 Hgb down slightly today to 7.5. We will continue to monitor. Per Dr. Baum's recommendations, will transfuse for hemoglobin less than 8. Risks and benefits of blood transfusion have been discussed with the patient and she is agreeable if needed. - Time Time Spent with patient: 15-24 minutes Anticipated discharge: Home - Inpatient Certification Based on my medical assessment, after consideration of the patient's comorbidities, presenting symptoms, or acuity I expect that the services needed warrant INPATIENT care.: Yes I certify that my determination is in accordance with my understanding of Medicare's requirements for reasonable and necessary INPATIENT services [42 CFR 412.3e].: Yes Medical Necessity: Need For IV Fluids, Need for Pain Control
[2017-04-20] MEDS ORDERED: LACTULOSE SYRUP 20 GM/30 ML UDCUP PO ONE (20:13)
--- NOTE | 2017-04-20 21:07 | RADIOLOGY REPORT (SQ) ---
EXAM DESCRIPTION: CHEST SINGLE VIEW COMPLETED DATE/TIME: 04/20/2017 8:50 pm REASON FOR STUDY: chest pain COMPARISON: AP chest 04/17/2017, 04/16/2017, 04/07/2017, 03/08/2017 EXAM PARAMETERS: NUMBER OF VIEWS: One view. TECHNIQUE: Single frontal radiographic view of the chest acquired. RADIATION DOSE: NA LIMITATIONS: None. FINDINGS: LUNGS AND PLEURA: No opacities, masses or pneumothorax. No pleural effusion. MEDIASTINUM AND HILAR STRUCTURES: No masses. Contour normal. HEART AND VASCULAR STRUCTURES: Heart normal in size. Normal vasculature. BONES: Characteristic vertebral body endplate depressions from known sickle cell HARDWARE: Right-sided permanent central line tip superior vena cava OTHER: No other significant finding. IMPRESSION: No acute findings TECHNICAL DOCUMENTATION: JOB ID: [id number] [employer]- All Rights Reserved
[2017-04-20] MEDS: RIVAROXABAN 10 MG TABLET PO SCH (21:14)
[2017-04-20 21:34] LABS: HEMATOCRIT 21.6 % (36.0-47.0); MEAN CORPUSCULAR HEMOGLOBIN 35.3 pg (27.0-33.4); MEAN CORPUSCULAR HGB CONC 36.8 g/dL (32.0-36.0); MEAN CORPUSCULAR VOLUME 96 fl (80-97); PLATELET COUNT 402 10^3/uL (150-450); RED BLOOD COUNT 2.26 10^6/uL (3.72-5.28); RED CELL DISTRIBUTION WIDTH 20.1 % (11.5-14.0); WHITE BLOOD COUNT 14.7 10^3/uL (4.0-10.5)
[2017-04-20 22:47] LABS: ABSOLUTE LYMPHOCYTES# (MANUAL) 4.1 10^3/uL (0.5-4.7); ABSOLUTE NEUTROPHILS# (MANUAL) 8.2 10^3/uL (1.7-8.2); BASOPHILS % (MANUAL) 0 % (0-2); EOSINOPHILS % (MANUAL) 9 % (0-6); LYMPHOCYTES % (MANUAL) 28 % (13-45); MONOCYTES % (MANUAL) 7 % (3-13); NUCLEATED RED BLOOD CELLS 3 /100 WBC (0); SEGMENTED NEUTROPHILS % (MAN) 56 % (42-78); TOTAL CELLS COUNTED 100
[2017-04-20 22:48] LABS: ANISOCYTOSIS 2+; POIKILOCYTOSIS 2+; POLYCHROMASIA 1+
[2017-04-20 22:49] LABS: SCHISTOCYTES 1+; STOMATOCYTES 2+
[2017-04-20 22:51] LABS: PLATELET COMMENT ADEQUATE; SICKLE RED CELLS 1+
[2017-04-20 22:55] LABS: TARGET CELLS 2+
[2017-04-21] MEDS: HYDROMORPHONE HCL INJ/PF 2 MG/ML AMPULE IV PRN ×10 (01:01→23:34)
[2017-04-21] MEDS: OXYCODONE HCL IR 5 MG TABLET PO PRN ×4 (05:32→22:13)
[2017-04-21] MEDS: NORMAL SALINE 1000 ML 1,000 ML IV PRN ×2 (06:07→15:26)
[2017-04-21 08:07] LABS: HEMATOCRIT 21.1 % (36.0-47.0); MEAN CORPUSCULAR HEMOGLOBIN 35.4 pg (27.0-33.4); MEAN CORPUSCULAR HGB CONC 36.4 g/dL (32.0-36.0); MEAN CORPUSCULAR VOLUME 97 fl (80-97); PLATELET COUNT 404 10^3/uL (150-450); RED BLOOD COUNT 2.17 10^6/uL (3.72-5.28)
[2017-04-21 08:17] LABS: HEMOGLOBIN 7.7 g/dL (12.0-15.5)
--- NOTE | 2017-04-21 08:31 | PDOC PROGRESS REPORT ---
Subjective Progress Note for:: 04/21/17 Subjective:: Patient with severe chest pain over the last couple days that are relieved by Dilaudid. Otherwise patient feels like the Dilaudid dose needs to be increased. Reason For Visit: SICKLE CELL CRISIS,ANEMIA Physical Exam Vital Signs: Temp Pulse Resp BP Pulse Ox 98.1 F 81 16 106/49 L 98 04/21/17 04:49 04/21/17 07:00 04/21/17 04:49 04/21/17 04:50 04/21/17 04:49 Intake & Output 04/20/17 04/21/17 04/22/17 06:59 06:59 06:59 Intake Total 6448 5594 Output Total 600 Balance 5848 5594 Weight 64.7 kg 65.1 kg General appearance: PRESENT: no acute distress, well-developed, well-nourished Head exam: PRESENT: atraumatic, normocephalic Eye exam: PRESENT: conjunctiva pink, EOMI, PERRLA. ABSENT: scleral icterus Ear exam: PRESENT: normal external ear exam Mouth exam: PRESENT: moist, tongue midline Neck exam: ABSENT: carotid bruit, JVD, lymphadenopathy, thyromegaly Respiratory exam: PRESENT: clear to auscultation samaria. ABSENT: rales, rhonchi, wheezes Cardiovascular exam: PRESENT: RRR. ABSENT: diastolic murmur, rubs, systolic murmur Pulses: PRESENT: normal dorsalis pedis pul Vascular exam: PRESENT: normal capillary refill GI/Abdominal exam: PRESENT: normal bowel sounds, soft. ABSENT: distended, guarding, mass, organolmegaly, rebound, tenderness Rectal exam: PRESENT: deferred Extremities exam: PRESENT: full ROM. ABSENT: calf tenderness, clubbing, pedal edema Neurological exam: PRESENT: alert, awake, oriented to person, oriented to place , oriented to time, oriented to situation, CN II-XII grossly intact. ABSENT: motor sensory deficit Psychiatric exam: PRESENT: appropriate affect, normal mood. ABSENT: homicidal ideation, suicidal ideation Skin exam: PRESENT: dry, intact, warm. ABSENT: cyanosis, rash Results Laboratory Results: 04/20/17 06:00 04/20/17 20:25 WBC 14.7 H RBC 2.26 L Hgb 8.0 L Hct 21.6 L MCV 96 MCH 35.3 H MCHC 36.8 H RDW 20.1 H Plt Count 402 Seg Neutrophils % Not Reportable Lymphocytes % Not Reportable Monocytes % Not Reportable Eosinophils % Not Reportable Basophils % Not Reportable Absolute Neutrophils Not Reportable Absolute Lymphocytes Not Reportable Absolute Monocytes Not Reportable Absolute Eosinophils Not Reportable Absolute Basophils Not Reportable Impressions: Chest X-Ray 04/20/17 00:00 IMPRESSION: No acute findings Assessment & Plan - Diagnosis (1) Sickle cell pain crisis Is this a current diagnosis for this admission?: Yes Plan: Continued IV pain control, increased Dilaudid today, continue other supportive measures. 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
--- NOTE | 2017-04-21 08:38 | PDOC PROGRESS REPORT ---
Subjective Progress Note for:: 04/21/17 Subjective:: The patient is a 22-year-old female with a past medical history significant only for sickle cell crisis. She was admitted on 02/15/18 for sickle cell crisis pain typical of her usual pain. She is receiving IV fluid hydration and IV Dilaudid for breakthrough pain with scheduled oxycodone. Patient is seen on morning rounds. Overnight events reviewed and noted; pt experienced sudden worsening of chest pain overnight. Vital signs remained stable and repeat chest xray did not demonstrate acute findings. She has just received a dose of dilaudid and reports that her pain is well controlled at present. She asks about her hgb and possible need for transfusion. Ready for discharge once pain is adequately controlled. Reason For Visit: SICKLE CELL CRISIS,ANEMIA Physical Exam Vital Signs: Temp Pulse Resp BP Pulse Ox 98.1 F 81 16 106/49 L 98 04/21/17 04:49 04/21/17 07:00 04/21/17 04:49 04/21/17 04:50 04/21/17 04:49 Intake & Output 04/20/17 04/21/17 04/22/17 06:59 06:59 06:59 Intake Total 6448 5594 Output Total 600 Balance 5848 5594 Weight 64.7 kg 65.1 kg General appearance: PRESENT: no acute distress, well-developed, well-nourished Head exam: PRESENT: atraumatic, normocephalic Eye exam: PRESENT: conjunctiva pink, EOMI, PERRLA. ABSENT: scleral icterus Ear exam: PRESENT: normal external ear exam Mouth exam: PRESENT: moist, tongue midline Neck exam: ABSENT: carotid bruit, JVD, lymphadenopathy, thyromegaly Respiratory exam: PRESENT: clear to auscultation samaria. ABSENT: rales, rhonchi, wheezes Cardiovascular exam: PRESENT: RRR. ABSENT: diastolic murmur, rubs, systolic murmur Pulses: PRESENT: normal dorsalis pedis pul Vascular exam: PRESENT: normal capillary refill GI/Abdominal exam: PRESENT: normal bowel sounds, soft. ABSENT: distended, guarding, mass, organolmegaly, rebound, tenderness Rectal exam: PRESENT: deferred Extremities exam: PRESENT: full ROM. ABSENT: calf tenderness, clubbing, pedal edema Neurological exam: PRESENT: alert, awake, oriented to person, oriented to place , oriented to time, oriented to situation, CN II-XII grossly intact. ABSENT: motor sensory deficit Psychiatric exam: PRESENT: appropriate affect, normal mood. ABSENT: homicidal ideation, suicidal ideation Skin exam: PRESENT: dry, intact, warm. ABSENT: cyanosis, rash Results Laboratory Results: 04/20/17 06:00 04/20/17 20:25 WBC 14.7 H RBC 2.26 L Hgb 8.0 L Hct 21.6 L MCV 96 MCH 35.3 H MCHC 36.8 H RDW 20.1 H Plt Count 402 Seg Neutrophils % Not Reportable Lymphocytes % Not Reportable Monocytes % Not Reportable Eosinophils % Not Reportable Basophils % Not Reportable Absolute Neutrophils Not Reportable Absolute Lymphocytes Not Reportable Absolute Monocytes Not Reportable Absolute Eosinophils Not Reportable Absolute Basophils Not Reportable Impressions: Chest X-Ray 04/20/17 00:00 IMPRESSION: No acute findings Assessment & Plan - Diagnosis (1) Sickle cell pain crisis Is this a current diagnosis for this admission?: Yes Plan: The patient is admitted with a sickle cell pain crisis. The patient does have a history of acute chest syndrome. No acute findings were noted on chest x- ray. The patient is not tachycardic, maintains oxygen saturations while on room air, and denies dyspnea. She remains afebrile. No evidence of acute chest syndrome at this time. Repeat chest imaging does not reveal any acute processes. To continue on her home dose hydroxyurea. Continue maintenance IV fluids at a rate of 150 mL/hr. She is provided scheduled oxycodone with Dilaudid for breakthrough pain. Pain is improved with scheduled medication. Tylenol is available as needed for pain or fever. Nonpharmacological intervention to include continued mobility and heating pad. Antiemetics are available as needed for nausea and vomiting. Benadryl as needed for itching. We will consult Dr. Baum, the patient's telegraph printer mechanic. Appreciate his assistance and recommendations. (2) DVT (deep venous thrombosis) Is this a current diagnosis for this admission?: Yes Plan: Present on arrival to right upper extremity secondary to Port-A-Cath procedure done at a another facility last month. To continue on her home dose of Xarelto 20 mg nightly. Encouraged increased mobility/ambulation. 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 Hgb currently 7.7 We will continue to monitor. Per Dr. Baum's recommendations, will transfuse for hemoglobin less than 7. Risks and benefits of blood transfusion have been discussed with the patient and she is agreeable if needed. - Time Time Spent with patient: 15-24 minutes Medications reviewed and adjusted accordingly: Yes Anticipated discharge: Home
[2017-04-21 08:57] LABS: WHITE BLOOD COUNT 13.2 10^3/uL (4.0-10.5)
[2017-04-21] MEDS: HYDROXYUREA 500 MG CAPSULE PO SCH ×2 (09:43→17:37)
[2017-04-21] MEDS: FAMOTIDINE 20 MG TABLET PO SCH ×2 (09:44→22:13)
[2017-04-21] MEDS: DIPHENHYDRAMINE HCL 50 MG/ML VIAL IV PRN ×2 (17:38→23:34)
[2017-04-21] MEDS: ONDANSETRON HCL INJ/PF 4 MG/2 ML SDV IV PRN (17:38)
[2017-04-21] MEDS: RIVAROXABAN 10 MG TABLET PO SCH (22:13)
[2017-04-22] MEDS: OXYCODONE HCL IR 5 MG TABLET PO PRN ×2 (02:11→10:18)
[2017-04-22] MEDS: HYDROMORPHONE HCL INJ/PF 2 MG/ML AMPULE IV PRN ×8 (02:11→22:03)
[2017-04-22] MEDS ORDERED: FUROSEMIDE INJ/PF 20 MG/2 ML SDV IV PRN (05:00)
[2017-04-22] MEDS ORDERED: ACETAMINOPHEN 325 MG TABLET PO PRN (05:00)
[2017-04-22 07:20] LABS: HEMATOCRIT 20.7 % (36.0-47.0); MEAN CORPUSCULAR HEMOGLOBIN 35.3 pg (27.0-33.4); MEAN CORPUSCULAR HGB CONC 36.5 g/dL (32.0-36.0); MEAN CORPUSCULAR VOLUME 97 fl (80-97); PLATELET COUNT 409 10^3/uL (150-450); RED BLOOD COUNT 2.14 10^6/uL (3.72-5.28); RED CELL DISTRIBUTION WIDTH 21.5 % (11.5-14.0); WHITE BLOOD COUNT 13.7 10^3/uL (4.0-10.5)
[2017-04-22 07:29] LABS: ANION GAP 10 (5-19); BLOOD UREA NITROGEN 6 mg/dL (7-20); CALCIUM 9.2 mg/dL (8.4-10.2); CARBON DIOXIDE 29 mmol/L (22-30); CHLORIDE 105 mmol/L (98-107); GLUCOSE 80 mg/dL (75-110); POTASSIUM 4.3 mmol/L (3.6-5.0)
[2017-04-22 07:49] LABS: HEMOGLOBIN 7.6 g/dL (12.0-15.5)
[2017-04-22 07:53] LABS: ABSOLUTE LYMPHOCYTES# (MANUAL) 4.7 10^3/uL (0.5-4.7); ABSOLUTE MONOCYTES # (MANUAL) 0.5 10^3/uL (0.1-1.4); ABSOLUTE NEUTROPHILS# (MANUAL) 6.3 10^3/uL (1.7-8.2); BASOPHILS % (MANUAL) 1 % (0-2); EOSINOPHILS % (MANUAL) 15 % (0-6); LYMPHOCYTES % (MANUAL) 34 % (13-45); MONOCYTES % (MANUAL) 4 % (3-13); NUCLEATED RED BLOOD CELLS 2 /100 WBC (0); POIKILOCYTOSIS 2+; SEGMENTED NEUTROPHILS % (MAN) 46 % (42-78); TOTAL CELLS COUNTED 100
[2017-04-22 07:54] LABS: ANISOCYTOSIS 3+; OVALOCYTES SLIGHT; PLATELET COMMENT ADEQUATE; POLYCHROMASIA 2+; SCHISTOCYTES 1+; SICKLE RED CELLS SLIGHT; TARGET CELLS SLIGHT
--- NOTE | 2017-04-22 08:54 | PDOC PROGRESS REPORT ---
Subjective Progress Note for:: 04/22/17 Subjective:: Patient doing better today, she is agreeable to going down on the Dilaudid, her hemoglobin is fallen down in the 7 range again, she still had chest pain yesterday so plan on 1 unit of packed red blood cells today. Reason For Visit: SICKLE CELL CRISIS,ANEMIA Physical Exam Vital Signs: Temp Pulse Resp BP Pulse Ox 98.4 F 81 16 113/67 99 04/22/17 08:00 04/22/17 08:00 04/22/17 08:00 04/22/17 08:00 04/22/17 08:00 Intake & Output 04/21/17 04/22/17 04/23/17 06:59 06:59 06:59 Intake Total 5594 3341 Balance 5594 3341 Weight 65.1 kg 65.1 kg General appearance: PRESENT: no acute distress, well-developed, well-nourished Head exam: PRESENT: atraumatic, normocephalic Eye exam: PRESENT: conjunctiva pink, EOMI, PERRLA. ABSENT: scleral icterus Ear exam: PRESENT: normal external ear exam Mouth exam: PRESENT: moist, tongue midline Neck exam: ABSENT: carotid bruit, JVD, lymphadenopathy, thyromegaly Respiratory exam: PRESENT: clear to auscultation samaria. ABSENT: rales, rhonchi, wheezes Cardiovascular exam: PRESENT: RRR. ABSENT: diastolic murmur, rubs, systolic murmur Pulses: PRESENT: normal dorsalis pedis pul Vascular exam: PRESENT: normal capillary refill GI/Abdominal exam: PRESENT: normal bowel sounds, soft. ABSENT: distended, guarding, mass, organolmegaly, rebound, tenderness Rectal exam: PRESENT: deferred Extremities exam: PRESENT: full ROM. ABSENT: calf tenderness, clubbing, pedal edema Neurological exam: PRESENT: alert, awake, oriented to person, oriented to place , oriented to time, oriented to situation, CN II-XII grossly intact. ABSENT: motor sensory deficit Psychiatric exam: PRESENT: appropriate affect, normal mood. ABSENT: homicidal ideation, suicidal ideation Skin exam: PRESENT: dry, intact, warm. ABSENT: cyanosis, rash Results Laboratory Results: 04/22/17 05:59 04/22/17 05:59 04/21/17 04/22/17 04/22/17 06:05 05:59 05:59 WBC 13.2 H 13.7 H RBC 2.17 L 2.14 L Hgb 7.7 L 7.6 L Hct 21.1 L 20.7 L MCV 97 97 MCH 35.4 H 35.3 H MCHC 36.4 H 36.5 H RDW 20.0 H 21.5 H Plt Count 404 409 Seg Neutrophils % Not Reportable Lymphocytes % Not Reportable Monocytes % Not Reportable Eosinophils % Not Reportable Basophils % Not Reportable Absolute Neutrophils Not Reportable Absolute Lymphocytes Not Reportable Absolute Monocytes Not Reportable Absolute Eosinophils Not Reportable Absolute Basophils Not Reportable Sodium 144.0 Potassium 4.3 Chloride 105 Carbon Dioxide 29 Anion Gap 10 BUN 6 L Creatinine 0.57 Est GFR ( Amer) > 60 Est GFR (Non-Af Amer) > 60 Glucose 80 Calcium 9.2 Impressions: Chest X-Ray 04/20/17 00:00 IMPRESSION: No acute findings Assessment & Plan - Diagnosis (1) Sickle cell pain crisis Is this a current diagnosis for this admission?: Yes Plan: Improving, will give 1 unit of blood today, decrease Dilaudid to 2 mg every 2 hour, patient may be stable for discharge tomorrow afternoon or at the latest by . It depends on decreasing Dilaudid to every 4-6 hours. 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 Hemolytic anemia type : other hemoglobinopathy Qualified Code(s): D58.2 - Other hemoglobinopathies Is this a current diagnosis for this admission?: Yes Plan: Transfusion today, patient is symptomatic - Time Time Spent with patient: 35 or more minutes - Inpatient Certification Based on my medical assessment, after consideration of the patient's comorbidities, presenting symptoms, or acuity I expect that the services needed warrant INPATIENT care.: Yes I certify that my determination is in accordance with my understanding of Medicare's requirements for reasonable and necessary INPATIENT services [42 CFR 412.3e].: Yes Medical Necessity: Need for Pain Control, Risk of Complication if Not Cared For in Hospital
[2017-04-22] MEDS ORDERED: DIPHENHYDRAMINE HCL 50 MG/ML VIAL IV PRN (09:17)
[2017-04-22] MEDS: FAMOTIDINE 20 MG TABLET PO SCH ×2 (10:19→22:03)
[2017-04-22] MEDS: HYDROXYUREA 500 MG CAPSULE PO SCH ×2 (10:19→17:38)
--- NOTE | 2017-04-22 17:34 | PDOC PROGRESS REPORT ---
Subjective Progress Note for:: 04/22/17 Subjective:: Patient is a 22-year-old female with sickle cell. Presenting with sickle cell pain crisis. Patient is currently comfortable. She is resting well and not eating very much. Reason For Visit: SICKLE CELL CRISIS,ANEMIA Physical Exam Vital Signs: Temp Pulse Resp BP Pulse Ox 98.1 F 72 16 117/57 L 98 04/22/17 15:43 04/22/17 15:43 04/22/17 15:43 04/22/17 15:43 04/22/17 15:43 Intake & Output 04/21/17 04/22/17 04/23/17 06:59 06:59 06:59 Intake Total 5594 3341 0 Balance 5594 3341 0 Weight 65.1 kg 65.1 kg General appearance: PRESENT: no acute distress, well-developed, well-nourished Head exam: PRESENT: atraumatic, normocephalic Eye exam: PRESENT: conjunctiva pale, EOMI. ABSENT: scleral icterus Ear exam: PRESENT: normal external ear exam Mouth exam: PRESENT: moist Neck exam: ABSENT: carotid bruit, JVD, lymphadenopathy, thyromegaly Respiratory exam: PRESENT: clear to auscultation samaria, other - Right upper chest wall port. ABSENT: rales, rhonchi, wheezes Cardiovascular exam: PRESENT: RRR. ABSENT: diastolic murmur, rubs, systolic murmur Pulses: PRESENT: normal dorsalis pedis pul Vascular exam: PRESENT: normal capillary refill GI/Abdominal exam: PRESENT: normal bowel sounds, soft. ABSENT: distended, guarding, mass, organolmegaly, rebound, tenderness Rectal exam: PRESENT: deferred Extremities exam: PRESENT: full ROM. ABSENT: calf tenderness, clubbing, pedal edema Neurological exam: PRESENT: alert, awake, oriented to person, oriented to place , oriented to time, oriented to situation, CN II-XII grossly intact. ABSENT: motor sensory deficit Psychiatric exam: PRESENT: appropriate affect, normal mood. ABSENT: homicidal ideation, suicidal ideation Skin exam: PRESENT: dry, intact, warm. ABSENT: cyanosis, rash Results Laboratory Results: 04/22/17 05:59 04/22/17 05:59 04/22/17 04/22/17 04/22/17 05:59 05:59 09:38 WBC 13.7 H RBC 2.14 L Hgb 7.6 L Hct 20.7 L MCV 97 MCH 35.3 H MCHC 36.5 H RDW 21.5 H Plt Count 409 Seg Neutrophils % Not Reportable Lymphocytes % Not Reportable Monocytes % Not Reportable Eosinophils % Not Reportable Basophils % Not Reportable Absolute Neutrophils Not Reportable Absolute Lymphocytes Not Reportable Absolute Monocytes Not Reportable Absolute Eosinophils Not Reportable Absolute Basophils Not Reportable Sodium 144.0 Potassium 4.3 Chloride 105 Carbon Dioxide 29 Anion Gap 10 BUN 6 L Creatinine 0.57 Est GFR ( Amer) > 60 Est GFR (Non-Af Amer) > 60 Glucose 80 Calcium 9.2 Blood Type O POSITIVE Antibody Screen NEGATIVE Impressions: Chest X-Ray 04/20/17 00:00 IMPRESSION: No acute findings Assessment & Plan - Diagnosis (1) Sickle cell pain crisis Is this a current diagnosis for this admission?: Yes Plan: Patient pain is becoming more controlled however she is still requiring quite a bit of IV pain medication. Continue hydroxyurea. Will wean pain medication gradually as tolerated. May take some time before the pain is adequately controlled. This is not unusual and sickle cell patients. Will continue current management consisting of hydration and analgesics. Patient with the assistance of hematology oncology. (2) DVT (deep venous thrombosis) Is this a current diagnosis for this admission?: Yes Plan: Right upper extremity DVT secondary to her Port-A-Cath placement. Continue Xarelto. 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 Patient hemoglobin has trended down to 7.6 and is unchanged from yesterday. Oncology has evaluated the patient and at this time ordered 1 unit of packed RBCs. Patient states that her baseline hemoglobin is between 9 and 10. Will continue to monitor. - Time Time Spent with patient: Less than 15 minutes Anticipated discharge: Home Within: within 72 hours - Inpatient Certification Medical Necessity: Need for Pain Control
[2017-04-22 19:41] LABS: HEMATOCRIT 25.9 % (36.0-47.0); HEMOGLOBIN 9.3 g/dL (12.0-15.5); MEAN CORPUSCULAR HEMOGLOBIN 34.5 pg (27.0-33.4); MEAN CORPUSCULAR VOLUME 96 fl (80-97); PLATELET COUNT 401 10^3/uL (150-450); RED BLOOD COUNT 2.71 10^6/uL (3.72-5.28); RED CELL DISTRIBUTION WIDTH 21.5 % (11.5-14.0); WHITE BLOOD COUNT 12.4 10^3/uL (4.0-10.5)
[2017-04-22] MEDS: DIPHENHYDRAMINE HCL 50 MG/ML VIAL IV PRN (19:52)
[2017-04-22 20:10] LABS: ABSOLUTE LYMPHOCYTES# (MANUAL) 2.6 10^3/uL (0.5-4.7); ABSOLUTE MONOCYTES # (MANUAL) 0.2 10^3/uL (0.1-1.4); ABSOLUTE NEUTROPHILS# (MANUAL) 8.7 10^3/uL (1.7-8.2); BASOPHILS % (MANUAL) 0 % (0-2); EOSINOPHILS % (MANUAL) 7 % (0-6); LYMPHOCYTES % (MANUAL) 20 % (13-45); MONOCYTES % (MANUAL) 2 % (3-13); NUCLEATED RED BLOOD CELLS 6 /100 WBC (0); SEGMENTED NEUTROPHILS % (MAN) 70 % (42-78); TOTAL CELLS COUNTED 100
[2017-04-22 20:14] LABS: ANISOCYTOSIS 3+; POIKILOCYTOSIS 1+; SCHISTOCYTES SLIGHT; SICKLE RED CELLS SLIGHT; TARGET CELLS 2+
[2017-04-22 20:15] LABS: POLYCHROMASIA 1+
[2017-04-22 20:16] LABS: PLATELET COMMENT ADEQUATE
[2017-04-22] MEDS: RIVAROXABAN 10 MG TABLET PO SCH (22:03)
[2017-04-23] MEDS: HYDROMORPHONE HCL INJ/PF 2 MG/ML AMPULE IV PRN ×7 (00:17→21:26)
[2017-04-23] MEDS: DIPHENHYDRAMINE HCL 50 MG/ML VIAL IV PRN (02:01)
--- NOTE | 2017-04-23 08:34 | PDOC PROGRESS REPORT ---
Subjective Progress Note for:: 04/23/17 Subjective:: Patient states pain is under control. Itching remains, but she is trying not to take the benadryl as often. She would like to wait 1 more day before discharge to make sure HGB remains stable. Reason For Visit: SICKLE CELL CRISIS,ANEMIA Physical Exam Vital Signs: Temp Pulse Resp BP Pulse Ox 98.3 F 67 16 112/71 98 04/23/17 00:02 04/23/17 07:00 04/23/17 00:02 04/23/17 00:02 04/23/17 00:02 Intake & Output 04/22/17 04/23/17 04/24/17 06:59 06:59 06:59 Intake Total 3341 2740 Balance 3341 2740 Weight 65.1 kg 65.1 kg General appearance: PRESENT: no acute distress, well-nourished Exam: 22 year old female. Respiratory exam: PRESENT: clear to auscultation samaria Cardiovascular exam: PRESENT: RRR Extremities exam: ABSENT: pedal edema Neurological exam: PRESENT: alert, awake Psychiatric exam: PRESENT: appropriate affect Skin exam: PRESENT: normal color Results Laboratory Results: 04/22/17 19:30 04/22/17 05:59 04/22/17 04/22/17 09:38 19:30 WBC 12.4 H RBC 2.71 L Hgb 9.3 L Hct 25.9 L MCV 96 MCH 34.5 H MCHC 36.0 RDW 21.5 H Plt Count 401 Seg Neutrophils % Not Reportable Lymphocytes % Not Reportable Monocytes % Not Reportable Eosinophils % Not Reportable Basophils % Not Reportable Absolute Neutrophils Not Reportable Absolute Lymphocytes Not Reportable Absolute Monocytes Not Reportable Absolute Eosinophils Not Reportable Absolute Basophils Not Reportable Blood Type O POSITIVE Antibody Screen NEGATIVE Impressions: Chest X-Ray 04/20/17 00:00 IMPRESSION: No acute findings Assessment & Plan - Diagnosis (1) Sickle cell pain crisis Is this a current diagnosis for this admission?: Yes Plan: I have encouraged her to continue IV fluids today, but change PO meds to her routine home meds, oxycodone PRN only and not use IV unless absolutely necessary. She agrees. She will continue to walk in [place] today. Her HGB improved after blood transfusion yesterday. We discussed risk of long-term transfusions. She understands. I will repeat labs in AM and hopefully, she will be ready for DC in AM.
[2017-04-23] MEDS: HYDROXYUREA 500 MG CAPSULE PO SCH ×2 (09:49→17:21)
[2017-04-23] MEDS: FAMOTIDINE 20 MG TABLET PO SCH ×2 (09:49→21:22)
[2017-04-23] MEDS: OXYCODONE HCL IR 5 MG TABLET PO PRN ×3 (10:52→23:25)
--- NOTE | 2017-04-23 13:57 | PDOC PROGRESS REPORT ---
Subjective Progress Note for:: 04/23/17 Subjective:: Patient is a 22-year-old female with sickle cell. Presenting with sickle cell pain crisis. Doing well today. Patient had one episode of sharp pain but that has since resolved. Reason For Visit: SICKLE CELL CRISIS,ANEMIA Physical Exam Vital Signs: Temp Pulse Resp BP Pulse Ox 98.1 F 71 15 106/58 L 98 04/23/17 12:07 04/23/17 12:07 04/23/17 12:07 04/23/17 12:07 04/23/17 12:07 Intake & Output 04/22/17 04/23/17 04/24/17 06:59 06:59 06:59 Intake Total 3341 2740 Balance 3341 2740 Weight 65.1 kg 65.1 kg General appearance: PRESENT: no acute distress, well-developed, well-nourished Head exam: PRESENT: atraumatic, normocephalic Eye exam: ABSENT: scleral icterus Ear exam: PRESENT: normal external ear exam Mouth exam: PRESENT: moist, tongue midline Neck exam: ABSENT: carotid bruit, JVD, lymphadenopathy, thyromegaly Respiratory exam: PRESENT: clear to auscultation samaria, other - Right chest wall port. ABSENT: rales, rhonchi, wheezes Cardiovascular exam: PRESENT: RRR. ABSENT: diastolic murmur, rubs, systolic murmur Pulses: PRESENT: normal dorsalis pedis pul Vascular exam: PRESENT: normal capillary refill GI/Abdominal exam: PRESENT: normal bowel sounds, soft. ABSENT: distended, guarding, mass, organolmegaly, rebound, tenderness Rectal exam: PRESENT: deferred Extremities exam: PRESENT: full ROM. ABSENT: calf tenderness, clubbing, pedal edema Neurological exam: PRESENT: alert, awake, oriented to person, oriented to place , oriented to time, oriented to situation, CN II-XII grossly intact. ABSENT: motor sensory deficit Psychiatric exam: PRESENT: appropriate affect, normal mood. ABSENT: homicidal ideation, suicidal ideation Skin exam: PRESENT: dry, intact, warm. ABSENT: cyanosis, rash Results Laboratory Results: 04/22/17 19:30 04/22/17 05:59 04/22/17 19:30 WBC 12.4 H RBC 2.71 L Hgb 9.3 L Hct 25.9 L MCV 96 MCH 34.5 H MCHC 36.0 RDW 21.5 H Plt Count 401 Seg Neutrophils % Not Reportable Lymphocytes % Not Reportable Monocytes % Not Reportable Eosinophils % Not Reportable Basophils % Not Reportable Absolute Neutrophils Not Reportable Absolute Lymphocytes Not Reportable Absolute Monocytes Not Reportable Absolute Eosinophils Not Reportable Absolute Basophils Not Reportable Impressions: Chest X-Ray 04/20/17 00:00 IMPRESSION: No acute findings Assessment & Plan - Diagnosis (1) Sickle cell pain crisis Is this a current diagnosis for this admission?: Yes Plan: His symptoms significantly improved. Patient does have intermittent pain from time to time. Continue current management and hydroxyurea. (2) DVT (deep venous thrombosis) Is this a current diagnosis for this admission?: Yes Plan: Right upper extremity DVT secondary to her Port-A-Cath placement. Continue Xarelto. 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 Patient received 1 packed RBC on 2017. Patient repeat hemoglobin is 9.3. Will monitor. If stable patient may be appropriate for discharge home. - Time Time Spent with patient: Less than 15 minutes Anticipated discharge: Home Within: within 48 hours - Inpatient Certification Medical Necessity: Need Close Monitoring Due to Risk of Patient Decompensation
[2017-04-23] MEDS: RIVAROXABAN 10 MG TABLET PO SCH (21:21)
[2017-04-24] MEDS: HYDROMORPHONE HCL INJ/PF 2 MG/ML AMPULE IV PRN ×2 (01:41→04:28)
[2017-04-24] MEDS: OXYCODONE HCL IR 5 MG TABLET PO PRN ×2 (05:40→14:42)
[2017-04-24 06:07] LABS: HEMATOCRIT 28.2 % (36.0-47.0); MEAN CORPUSCULAR HEMOGLOBIN 34.3 pg (27.0-33.4); MEAN CORPUSCULAR HGB CONC 35.5 g/dL (32.0-36.0); MEAN CORPUSCULAR VOLUME 97 fl (80-97); PLATELET COUNT 458 10^3/uL (150-450); RED BLOOD COUNT 2.92 10^6/uL (3.72-5.28); RED CELL DISTRIBUTION WIDTH 21.9 % (11.5-14.0); WHITE BLOOD COUNT 11.3 10^3/uL (4.0-10.5)
[2017-04-24 06:39] LABS: ABSOLUTE LYMPHOCYTES# (MANUAL) 3.2 10^3/uL (0.5-4.7); ABSOLUTE MONOCYTES # (MANUAL) 0.9 10^3/uL (0.1-1.4); ABSOLUTE NEUTROPHILS# (MANUAL) 5.7 10^3/uL (1.7-8.2); BASOPHILS % (MANUAL) 0 % (0-2); EOSINOPHILS % (MANUAL) 14 % (0-6); LYMPHOCYTES % (MANUAL) 28 % (13-45); MONOCYTES % (MANUAL) 8 % (3-13); NUCLEATED RED BLOOD CELLS 4 /100 WBC (0); SEGMENTED NEUTROPHILS % (MAN) 50 % (42-78); TOTAL CELLS COUNTED 100
[2017-04-24 06:40] LABS: ALANINE AMINOTRANSFERASE 52 U/L (9-52); ALBUMIN 3.9 g/dL (3.5-5.0); ALKALINE PHOSPHATASE 70 U/L (38-126); ANION GAP 9 (5-19); ASPARTATE AMINO TRANSFERASE 39 U/L (14-36); BILIRUBIN,DIRECT 0.3 mg/dL (0.0-0.4); BILIRUBIN,TOTAL 4.8 mg/dL (0.2-1.3); BLOOD UREA NITROGEN 11 mg/dL (7-20); CALCIUM 9.5 mg/dL (8.4-10.2); CARBON DIOXIDE 27 mmol/L (22-30); CHLORIDE 105 mmol/L (98-107); GLUCOSE 91 mg/dL (75-110); LDH 881 U/L (313-618); POTASSIUM 4.3 mmol/L (3.6-5.0); SODIUM 140.8 mmol/L (137-145); TOTAL PROTEIN 6.8 g/dL (6.3-8.2)
[2017-04-24 06:41] LABS: ANISOCYTOSIS 3+; POIKILOCYTOSIS 1+; POLYCHROMASIA 1+; TOXIC VACUOLATION PRESENT
[2017-04-24 06:42] LABS: PLATELET COMMENT INCREASED; SICKLE RED CELLS 1+; TARGET CELLS 1+
--- NOTE | 2017-04-24 09:42 | PDOC PROGRESS REPORT ---
Subjective Progress Note for:: 04/24/17 Subjective:: Patient sleeping peacefully. She does not arouse to voice. Nurses report that she required several doses of IV pain medication in addition to oral over night. No other issues. Reason For Visit: SICKLE CELL CRISIS,ANEMIA Physical Exam Vital Signs: Temp Pulse Resp BP Pulse Ox 98.5 F 61 14 103/41 L 100 04/24/17 08:17 04/24/17 08:17 04/24/17 08:17 04/24/17 08:17 04/24/17 08:17 Intake & Output 04/23/17 04/24/17 04/25/17 06:59 06:59 06:59 Intake Total 2740 680 Balance 2740 680 Weight 65.1 kg 76.3 kg General appearance: PRESENT: no acute distress, well-nourished Respiratory exam: PRESENT: unlabored Skin exam: PRESENT: normal color Results Laboratory Results: 04/24/17 05:45 04/24/17 05:45 04/24/17 04/24/17 05:45 05:45 WBC 11.3 H RBC 2.92 L Hgb 10.0 L Hct 28.2 L MCV 97 MCH 34.3 H MCHC 35.5 RDW 21.9 H Plt Count 458 H Seg Neutrophils % Not Reportable Lymphocytes % Not Reportable Monocytes % Not Reportable Eosinophils % Not Reportable Basophils % Not Reportable Absolute Neutrophils Not Reportable Absolute Lymphocytes Not Reportable Absolute Monocytes Not Reportable Absolute Eosinophils Not Reportable Absolute Basophils Not Reportable Sodium 140.8 Potassium 4.3 Chloride 105 Carbon Dioxide 27 Anion Gap 9 BUN 11 Creatinine 0.59 Est GFR ( Amer) > 60 Est GFR (Non-Af Amer) > 60 Glucose 91 Calcium 9.5 Total Bilirubin 4.8 H AST 39 H ALT 52 Alkaline Phosphatase 70 Total Protein 6.8 Albumin 3.9 Impressions: Chest X-Ray 04/20/17 00:00 IMPRESSION: No acute findings Assessment & Plan - Diagnosis (1) Sickle cell pain crisis Is this a current diagnosis for this admission?: Yes Plan: She continue to require IV pain medication. She is eating and walking. Plan to discharge home once she is stable and her pain is better controlled. Continue all pain meds for now.
[2017-04-24] MEDS: HYDROXYUREA 500 MG CAPSULE PO SCH (11:01)
--- NOTE | 2017-04-24 15:47 | PDOC DISCHARGE SUMMARY ---
General - Admit/Disc Date/PCP Admission Date/Primary Care Provider: 04/18/17 10:59 JOIE MOREIRA MD Discharge Date: 04/24/17 - Discharge Diagnosis (1) Sickle cell pain crisis Is this a current diagnosis for this admission?: Yes (2) DVT (deep venous thrombosis) Is this a current diagnosis for this admission?: Yes (3) Anemia Is this a current diagnosis for this admission?: Yes - Additional Information Resuscitation Status: Full Code Discharge Diet: As Tolerated Discharge Activity: Walk Frequently Prescriptions: Oxycodone HCl [Oxy-Ir 5 mg Tablet] 5 mg PO Q6HP PRN 2 Days #8 tablet PRN Reason: For Pain Home Medications: Hydroxyurea [Hydrea 500 mg Capsule] 500 mg PO BID 04/17/17 Rivaroxaban [Xarelto] 20 mg PO QHS 04/17/17 Oxycodone HCl [Oxy-Ir 5 mg Tablet] 5 mg PO Q6HP PRN 2 Days #8 tablet 04/24/17 History of Present Illness History of Present Illness: CASSANDRA MIDDLETON is a 22 year old female with a history of sickle cell presented to the ED on 04/17/2017 with complaint of chest pain, lower back pain and right knee pain. Patient found to be in sickle cell pain crisis. Please refer to H& P dictated by Dr. Murphy for complete details. Hospital Course Hospital Course: Patient with a history of sickle cell anemia. Patient presented in a pain crisis. Patient was started on aggressive pain medication with Dilaudid IV push and oxycodone immediate release. Patient also given aggressive fluid hydration. Patient hemoglobin did trend down. Patient hemoglobin was as low as 7.7. Patient was given 1 unit of packed RBCs per hematology. Patient hemoglobin did trend back up nicely. Patient hemoglobin is now 10. Patient was evaluated for any infection. UA was negative. Chest x-ray was clear. There was concern for possible acute chest as patient was having some pain. Patient was never hypoxic and was never really tachypneic. Highest respirations were 21. Patient was afebrile during her entire hospitalization. Patient was evaluated by hematology oncology. At this time patient pain is well controlled. Patient has a right upper extremity DVT which is most likely result of her Port-A-Cath. This was diagnosed prior to this admission. Patient has been on Xarelto will be discharged on Xarelto. Patient is being discharged home to follow-up with hematology oncology. Patient was given a prescription for 2 days worth of pain medication. Patient was also given a work excuse. Physical Exam Vital Signs: Temp Pulse Resp BP Pulse Ox 98.6 F 66 16 109/47 L 100 04/24/17 11:56 04/24/17 11:56 04/24/17 11:56 04/24/17 11:56 04/24/17 11:56 Intake & Output 04/23/17 04/24/17 04/25/17 06:59 06:59 06:59 Intake Total 2740 680 Balance 2740 680 Weight 65.1 kg 76.3 kg General appearance: PRESENT: no acute distress, well-developed, well-nourished Head exam: PRESENT: atraumatic, normocephalic Eye exam: PRESENT: conjunctiva pink, EOMI, PERRLA. ABSENT: scleral icterus Ear exam: PRESENT: normal external ear exam Mouth exam: PRESENT: moist, tongue midline Neck exam: ABSENT: carotid bruit, JVD, lymphadenopathy, thyromegaly Respiratory exam: PRESENT: clear to auscultation samaria. ABSENT: rales, rhonchi, wheezes Cardiovascular exam: PRESENT: RRR. ABSENT: diastolic murmur, rubs, systolic murmur Pulses: PRESENT: normal dorsalis pedis pul Vascular exam: PRESENT: normal capillary refill GI/Abdominal exam: PRESENT: normal bowel sounds, soft. ABSENT: distended, guarding, mass, organolmegaly, rebound, tenderness Rectal exam: PRESENT: deferred Extremities exam: PRESENT: full ROM. ABSENT: calf tenderness, clubbing, pedal edema Neurological exam: PRESENT: alert, awake, oriented to person, oriented to place , oriented to time, oriented to situation, CN II-XII grossly intact. ABSENT: motor sensory deficit Psychiatric exam: PRESENT: appropriate affect, normal mood. ABSENT: homicidal ideation, suicidal ideation Skin exam: PRESENT: dry, intact, warm. ABSENT: cyanosis, rash Results Laboratory Results: 04/24/17 05:45 04/24/17 05:45 04/24/17 04/24/17 05:45 05:45 WBC 11.3 H RBC 2.92 L Hgb 10.0 L Hct 28.2 L MCV 97 MCH 34.3 H MCHC 35.5 RDW 21.9 H Plt Count 458 H Seg Neutrophils % Not Reportable Lymphocytes % Not Reportable Monocytes % Not Reportable Eosinophils % Not Reportable Basophils % Not Reportable Absolute Neutrophils Not Reportable Absolute Lymphocytes Not Reportable Absolute Monocytes Not Reportable Absolute Eosinophils Not Reportable Absolute Basophils Not Reportable Sodium 140.8 Potassium 4.3 Chloride 105 Carbon Dioxide 27 Anion Gap 9 BUN 11 Creatinine 0.59 Est GFR ( Amer) > 60 Est GFR (Non-Af Amer) > 60 Glucose 91 Calcium 9.5 Total Bilirubin 4.8 H AST 39 H ALT 52 Alkaline Phosphatase 70 Total Protein 6.8 Albumin 3.9 Impressions: Chest X-Ray 04/20/17 00:00 IMPRESSION: No acute findings Qualifiers PATEINT BEING DISCHARGED WITH ANY OF THE FOLLOWING DIAGNOSIS?: No, VTE (PE or DVT) VTE patient discharged on overlapping Therapy?: Yes Plan Time Spent: Less than 30 Minutes
[2017-04-24 16:00] VITALS: BP 112/61
[2017-04-24] MEDS: FAMOTIDINE 20 MG TABLET PO SCH (16:13)
== END 2017-04-24 16:50 | disposition home or self-care (01) | DRG 812 ==
LOC: ER 10:28 → UNDOADMOB 14:30 → EH 14:30 → 5 21:17 → OBSVTOIN 04-18 10:59 → 2S 04-23 12:03
PROVIDERS: ADMIT Internal Medicine; ATTEND Internal Medicine
PROC: 30233N1 Transfusion of Nonautologous Red Blood Cells into Peripheral Vein, Percutaneous Approach (ICD-10-PCS; principal; 2017-04-22)
DX: D57.00 Hb-SS disease with crisis, unspecified (principal); T82.868A Thrombosis due to vascular prosthetic devices, implants and grafts, initial encounter; I82.621 Acute embolism and thrombosis of deep veins of right upper extremity; R52 Pain, unspecified; F17.210 Nicotine dependence, cigarettes, uncomplicated; F41.8 Other specified anxiety disorders; L29.8 Other pruritus; T40.2X5A Adverse effect of other opioids, initial encounter; Y92.230 Patient room in hospital as the place of occurrence of the external cause; Z79.01 Long term (current) use of anticoagulants
CPT/HCPCS: 36415; 36430; 36591; 71045; 71046; 80048; 80053; 81001; 83615; 85025; 85027; 85045; 86850; 86900; 86901; 86902; 86920; 93005; 93010; 94640; 96361; 96374; 96375; 96376; 99285; G0378; J1170; J1200; J1642; J2405; J7030; P9016

== ENCOUNTER 2017-04-27 20:07 | Emergency (ER) | payer MEDICAID ==
[2017-04-27] MEDS ORDERED: NORMAL SALINE 1000 ML 1,000 ML IV ONE (20:17)
--- NOTE | 2017-04-27 20:18 | ER Document Report ---
ED Medical Screen (RME) - General Chief Complaint: Sickle Cell Crisis Stated Complaint: BACK PAIN,MUSCLE PAIN Time Seen by Provider: 04/27/17 20:17 Mode of Arrival: Ambulatory Information source: Patient Notes: 22-year-old female history of sickle-cell disease presents with complaints of shortness of breath generalized body aches. Patient was recently seen for similar complaints. She notes she felt better for a little bit and then the symptoms returned I have greeted and performed a rapid initial assessment of this patient. A comprehensive ED assessment and evaluation of the patient, analysis of test results and completion of the medical decision making process will be conducted by additional ED providers. PHYSICAL EXAMINATION: GENERAL: Well-appearing, well-nourished and in no acute distress. HEAD: Atraumatic, normocephalic. EYES: Pupils equal round extraocular movements intact, conjunctiva are normal. ENT: Nares patent NECK: Normal range of motion LUNGS: No respiratory distress Musculoskeletal: Normal range of motion NEUROLOGICAL: Normal speech, normal gait. PSYCH: Normal mood, normal affect. SKIN: Warm, Dry, normal turgor, no rashes or lesions noted. TRAVEL OUTSIDE OF THE [place] IN LAST 30 DAYS: No - Related Data Allergies/Adverse Reactions: morphine Adverse Reaction (Severe, Verified 04/27/17 20:08) RASH,SWELLING jacob peppers Adverse Reaction (Severe, Uncoded 04/27/17 20:08) throat closes Past Medical History - Social History Family history: Reviewed & Not Pertinent, Other - Pt was adopted. Does not know family history - Past Medical History Cardiac Medical History: Reports: Hx DVT - RUE s/p port placement Denies: Hx Coronary Artery Disease, Hx Heart Attack, Hx Hypertension, Hx Pulmonary Embolism Pulmonary Medical History: Reports: Hx Pneumonia Denies: Hx Asthma, Hx Bronchitis, Hx COPD Neurological Medical History: Denies: Hx Cerebrovascular Accident, Hx Migraine, Hx Seizures Renal/ Medical History: Denies: Hx Peritoneal Dialysis Musculoskeltal Medical History: Denies Hx Arthritis Psychiatric Medical History: Reports: Hx Anxiety, Hx Depression Past Surgical History: Reports: Hx Cholecystectomy - 06/28/2015, Hx Vascular Surgery - port put in December, - Immunizations Immunizations up to date: Yes Hx Diphtheria, Pertussis, Tetanus Vaccination: Yes History of Influenza Vaccine for 12/2016 - 05/2017 Season: Yes Influenza Administration Date for 12/2016 - 05/2017 Season: 03/10/17 Physical Exam - Vital signs Vitals: Temp Pulse Resp BP Pulse Ox 98.7 F 86 18 112/63 100 04/27/17 20:14 04/27/17 20:14 04/27/17 20:14 04/27/17 20:14 04/27/17 20:14 Course - Vital Signs Vital signs: Temp Pulse Resp BP Pulse Ox 98.7 F 86 18 112/63 100 04/27/17 20:14 04/27/17 20:14 04/27/17 20:14 04/27/17 20:14 04/27/17 20:14
--- NOTE | 2017-04-27 20:43 | ER Document Report ---
ED General - General Chief Complaint: Sickle Cell Crisis Stated Complaint: BACK PAIN,MUSCLE PAIN Time Seen by Provider: 04/27/17 20:17 Mode of Arrival: Ambulatory Notes: Patient is a 22-year-old female with a past medical history of sickle cell anemia who presents with concerns of an ongoing pain crisis. Patient reports a dull, constant throbbing pain to her back and chest similar to prior exacerbations. She does not have any pain medications available to her at home. Nothing worsens her symptoms. She denies any associated fever, cough, headache, neck pain or altered mental status. She has not seen her primary doctor regarding this concern although she is scheduled to see her tourist cabin keeper in the morning. TRAVEL OUTSIDE OF THE [place] IN LAST 30 DAYS: No - Related Data Allergies/Adverse Reactions: morphine Adverse Reaction (Severe, Verified 04/27/17 20:08) RASH,SWELLING jacob peppers Adverse Reaction (Severe, Uncoded 04/27/17 20:08) throat closes Past Medical History - General Information source: Patient - Social History Smoking Status: Former Smoker Chew tobacco use (# tins/day): No Frequency of alcohol use: None Drug Abuse: None Lives with: Family Family History: Reviewed & Not Pertinent, Hypertension, Other - Sickle cell Patient has suicidal ideation: No Patient has homicidal ideation: No - Past Medical History Cardiac Medical History: Reports: Hx DVT - RUE s/p port placement Denies: Hx Coronary Artery Disease, Hx Heart Attack, Hx Hypertension, Hx Pulmonary Embolism Pulmonary Medical History: Reports: Hx Pneumonia Denies: Hx Asthma, Hx Bronchitis, Hx COPD Neurological Medical History: Denies: Hx Cerebrovascular Accident, Hx Migraine, Hx Seizures Renal/ Medical History: Denies: Hx Peritoneal Dialysis Musculoskeltal Medical History: Denies Hx Arthritis Psychiatric Medical History: Reports: Hx Anxiety, Hx Depression Past Surgical History: Reports: Hx Cholecystectomy - 06/28/2015, Hx Vascular Surgery - port put in December, - Immunizations Immunizations up to date: Yes Hx Diphtheria, Pertussis, Tetanus Vaccination: Yes Review of Systems - Review of Systems Notes: Constitutional: Negative for fever. HENT: Negative for sore throat. Eyes: Negative for visual changes. Cardiovascular: Negative for chest pain. Respiratory: Negative for shortness of breath. Gastrointestinal: Negative for abdominal pain, vomiting or diarrhea. Genitourinary: Negative for dysuria. Musculoskeletal: Positive for back and chest wall pain Skin: Negative for rash. Neurological: Negative for headaches, weakness or numbness. 10 point ROS negative except as marked above and in HPI. Physical Exam - Vital signs Vitals: Temp Pulse Resp BP Pulse Ox 98.7 F 86 18 112/63 100 04/27/17 20:14 04/27/17 20:14 04/27/17 20:14 04/27/17 20:14 04/27/17 20:14 Interpretation: Normal Notes: PHYSICAL EXAMINATION: GENERAL: Well-appearing, well-nourished and in no acute distress. HEAD: Atraumatic, normocephalic. EYES: Pupils equal round and reactive to light, extraocular movements intact, sclera anicteric, conjunctiva are normal. ENT: nares patent, oropharynx clear without exudates. Moist mucous membranes. NECK: Normal range of motion, supple without lymphadenopathy LUNGS: Breath sounds clear to auscultation bilaterally and equal. No wheezes rales or rhonchi. HEART: Regular rate and rhythm without murmurs ABDOMEN: Soft, nontender, normoactive bowel sounds. No guarding, no rebound. No masses appreciated. EXTREMITIES: Normal range of motion, no pitting or edema. No cyanosis. NEUROLOGICAL: No focal neurological deficits. Moves all extremities spontaneously and on command. PSYCH: Normal mood, normal affect. SKIN: Warm, Dry, normal turgor, no rashes or lesions noted. Course - Re-evaluation Re-evalutation: 04/27/17 20:43 Presentation is most consistent with an uncomplicated sickle cell pain crisis. Patient has no evidence of an aplastic crisis on labs. Chest x-ray and vitals are not consistent with acute chest syndrome. Vitals have remained within normal limits here in the emergency department. Patient's pain has been able to be controlled using IV analgesia. At this time will discharge with return precautions and follow-up recommendations. Verbal discharge instructions given a the bedside and opportunity for questions given. Medication warnings reviewed. Patient is in agreement with this plan and has verbalized understanding of return precautions and the need for primary care follow-up in the next 24-72 hours. - Vital Signs Vital signs: Temp Pulse Resp BP Pulse Ox 98.7 F 68 16 112/59 L 100 04/27/17 20:14 04/27/17 20:52 04/27/17 22:01 04/27/17 22:01 04/27/17 22:01 - Laboratory Result Diagrams: 04/27/17 20:47 04/27/17 20:47 Laboratory results interpreted by me: 04/27/17 04/27/17 20:47 20:47 WBC 11.3 H RBC 3.10 L Hgb 10.6 L Hct 30.5 L MCV 98 H MCH 34.4 H RDW 20.4 H Plt Count 491 H Chloride 108 H - Diagnostic Test Radiology reviewed: Image reviewed, Reports reviewed Radiology results interpreted by me: 04/27/17 23:18 Chest x-ray: No acute infiltrate or pneumothorax Discharge - Discharge Clinical Impression: Vaso-occlusive sickle cell crisis Condition: Good Disposition: HOME, SELF-CARE Additional Instructions: You were seen today for sickle cell pain crisis. Please follow-up with your tourist cabin keeper. Returning to the ED if you have worsening pain, fever greater than 100.4, shortness of breath, persistent vomiting, or any other symptoms that are concerning to you.
[2017-04-27] MEDS: HYDROMORPHONE HCL INJ/PF 2 MG/ML AMPULE IV PRN (20:56)
[2017-04-27 21:03] LABS: ABSOLUTE BASOPHILS # (AUTO) 0.2 10^3/uL (0.0-0.2); ABSOLUTE EOSINOPHILS # (AUTO) 0.1 10^3/uL (0.0-0.6); ABSOLUTE LYMPHOCYTES (AUTO) 2.5 10^3/uL (0.5-4.7); ABSOLUTE NEUT (AUTO) 7.4 10^3/uL (1.7-8.2); ABSOLUTE RETICS # 0.071 10^6/uL (0.028-0.122); BASOPHILS % (AUTO) 1.6 % (0-2); EOSINOPHILS % (AUTO) 0.9 % (0-6); HEMATOCRIT 30.5 % (36.0-47.0); HEMOGLOBIN 10.6 g/dL (12.0-15.5); LYMPHOCYTES % (AUTO) 22.5 % (13-45); MEAN CORPUSCULAR HEMOGLOBIN 34.4 pg (27.0-33.4); MEAN CORPUSCULAR HGB CONC 34.9 g/dL (32.0-36.0); MEAN CORPUSCULAR VOLUME 98 fl (80-97); MONOCYTES % (AUTO) 9.1 % (3-13); PLATELET COUNT 491 10^3/uL (150-450); RED CELL DISTRIBUTION WIDTH 20.4 % (11.5-14.0); RETICULOCYTE COUNT (AUTO) 2.28 % (0.66-2.85); SEGMENTED NEUTROPHILS % (AUTO) 65.9 % (42-78); TOTAL CELLS COUNTED % (AUTO) 100 %; WHITE BLOOD COUNT 11.3 10^3/uL (4.0-10.5)
[2017-04-27 21:15] LABS: ANION GAP 9 (5-19); BLOOD UREA NITROGEN 8 mg/dL (7-20); CALCIUM 9.5 mg/dL (8.4-10.2); CARBON DIOXIDE 26 mmol/L (22-30); CHLORIDE 108 mmol/L (98-107); GLUCOSE 90 mg/dL (75-110); POTASSIUM 3.7 mmol/L (3.6-5.0)
--- NOTE | 2017-04-27 21:18 | RADIOLOGY REPORT (SQ) ---
EXAM DESCRIPTION: CHEST SINGLE VIEW COMPLETED DATE/TIME: 04/27/2017 9:09 pm REASON FOR STUDY: sob COMPARISON: 04/20/2017 NUMBER OF VIEWS: One view. TECHNIQUE: Single frontal radiographic view of the chest acquired. LIMITATIONS: None. FINDINGS: LUNGS AND PLEURA: No opacities, masses or pneumothorax. No pleural effusion. MEDIASTINUM AND HILAR STRUCTURES: No masses. Contour normal. HEART AND VASCULAR STRUCTURES: Heart normal in size. Normal vasculature. BONES: No acute findings. HARDWARE: Right port, as before. OTHER: No other significant finding. IMPRESSION: NO SIGNIFICANT RADIOGRAPHIC FINDING IN THE CHEST. TECHNICAL DOCUMENTATION: JOB ID: [id number] [employer]- All Rights Reserved
[2017-04-28] MEDS: HYDROMORPHONE HCL INJ/PF 2 MG/ML AMPULE IV PRN (01:06)
[2017-04-28 01:29] VITALS: BP 104/61
== END 2017-04-28 01:05 | disposition home or self-care (01) ==
LOC: ER 20:07
DX: D57.00 Hb-SS disease with crisis, unspecified (principal); Z88.6 Allergy status to analgesic agent; Z87.891 Personal history of nicotine dependence; Z90.49 Acquired absence of other specified parts of digestive tract
CPT/HCPCS: 36591; 99284; 96374; 36415; 85025; 85045; 80048; 71045; J1170 ×2

== ENCOUNTER 2017-04-28 10:19 | Emergency (ER) | payer MEDICAID ==
[2017-04-28] MEDS ORDERED: HYDROMORPHONE HCL INJ/PF 2 MG/ML AMPULE IV ONE (10:29)
[2017-04-28] MEDS ORDERED: NORMAL SALINE 1000 ML 1,000 ML IV ONE (10:29)
--- NOTE | 2017-04-28 10:31 | ER Document Report ---
ED Medical Screen (RME) - General Chief Complaint: Back Pain Stated Complaint: BACK PAIN Time Seen by Provider: 04/28/17 10:28 Mode of Arrival: Wheelchair Information source: Patient TRAVEL OUTSIDE OF THE [place] IN LAST 30 DAYS: No - HPI Patient complains to provider of: sickle cell/back pain Onset: Yesterday - pt. was seen last pm for sickle cell crisis -- states she called her PCP this am for appt. but was told to RTED for repeat evaluation - Related Data Allergies/Adverse Reactions: morphine Adverse Reaction (Severe, Verified 04/28/17 10:21) RASH,SWELLING jacob peppers Adverse Reaction (Severe, Uncoded 04/27/17 20:08) throat closes Past Medical History - Social History Frequency of alcohol use: None Drug Abuse: None Family history: Reviewed & Not Pertinent, Other - Pt was adopted. Does not know family history - Past Medical History Cardiac Medical History: Reports: Hx DVT - RUE s/p port placement Denies: Hx Coronary Artery Disease, Hx Heart Attack, Hx Hypertension, Hx Pulmonary Embolism Pulmonary Medical History: Reports: Hx Pneumonia Denies: Hx Asthma, Hx Bronchitis, Hx COPD Neurological Medical History: Denies: Hx Cerebrovascular Accident, Hx Migraine, Hx Seizures Renal/ Medical History: Denies: Hx Peritoneal Dialysis Musculoskeltal Medical History: Denies Hx Arthritis Psychiatric Medical History: Reports: Hx Anxiety, Hx Depression Past Surgical History: Reports: Hx Cholecystectomy - 06/28/2015, Hx Vascular Surgery - port put in December, - Immunizations Immunizations up to date: Yes Hx Diphtheria, Pertussis, Tetanus Vaccination: Yes History of Influenza Vaccine for 12/2016 - 05/2017 Season: Yes Influenza Administration Date for 12/2016 - 05/2017 Season: 03/10/17 Physical Exam - Vital signs Vitals: Temp Pulse Resp BP Pulse Ox 98.8 F 93 13 111/52 L 98 04/28/17 10:23 04/28/17 10:23 04/28/17 10:23 04/28/17 10:23 04/28/17 10:23 Course - Vital Signs Vital signs: Temp Pulse Resp BP Pulse Ox 98.8 F 93 13 111/52 L 98 04/28/17 10:23 04/28/17 10:23 04/28/17 10:23 04/28/17 10:23 04/28/17 10:23
--- NOTE | 2017-04-28 11:18 | ER Document Report ---
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 She had a yesterday was seen here in the ED had normal labs and was discharged home after IV pain meds. She did not take her morning oxycodone because it was working before, and when she called her plaster form maker Dr. Colin told to come to the ER. She denies chest pain shortness of breath or cough. No fever. Possible to duration. History of acute chest but no symptoms like that now. TRAVEL OUTSIDE OF THE [place] IN LAST 30 DAYS: No - Related Data Allergies/Adverse Reactions: morphine Adverse Reaction (Severe, Verified 04/28/17 10:21) RASH,SWELLING jacob peppers Adverse Reaction (Severe, Uncoded 04/27/17 20:08) throat closes Past Medical History - General Information source: Patient - Social History Smoking Status: Former Smoker Frequency of alcohol use: None Drug Abuse: None Family History: Reviewed & Not Pertinent, Hypertension, Other - Sickle cell Patient has suicidal ideation: No Patient has homicidal ideation: No - Past Medical History Cardiac Medical History: Reports: Hx DVT - RUE s/p port placement Denies: Hx Coronary Artery Disease, Hx Heart Attack, Hx Hypertension, Hx Pulmonary Embolism Pulmonary Medical History: Reports: Hx Pneumonia Denies: Hx Asthma, Hx Bronchitis, Hx COPD Neurological Medical History: Denies: Hx Cerebrovascular Accident, Hx Migraine, Hx Seizures Renal/ Medical History: Denies: Hx Peritoneal Dialysis Musculoskeltal Medical History: Denies Hx Arthritis Psychiatric Medical History: Reports: Hx Anxiety, Hx Depression Past Surgical History: Reports: Hx Cholecystectomy - 06/28/2015, Hx Vascular Surgery - port put in December, - Immunizations Immunizations up to date: Yes Hx Diphtheria, Pertussis, Tetanus Vaccination: Yes Review of Systems - Review of Systems Notes: REVIEW OF SYSTEMS GEN: Denies fever, chills, weight loss ENT: Denies sore throat, nasal discharge, ear pain EYES: Denies blurry vision, eye pain, discharge CV: Denies chest pain, palpitations, edema RESP: Denies cough, shortness of breath, wheezing GI: Denies abdominal pain, nausea, vomiting, diarrhea MSK: Back pain, SKIN: Denies rash, skin lesions LYMPH: Denies swollen glands/lymph nodes NEURO: Denies headache, focal weakness or numbness, dizziness PSYCH: Denies depression, suicidal or homicidal ideation PHYSICAL EXAMINATION General: No acute distress, well-nourished Head: Atraumatic, normocephalic ENT: Mouth normal, oropharynx moist, no exudates or tonsillar enlargement Eyes: Conjunctiva normal, pupils equal, lids normal Neck: No JVD, supple, no guarding CVS: Normal rate, regular rhythm, no murmurs Resp: No resp distress, equal and normal breath sounds bilaterally GI: Nondistended, soft, no tenderness to palpation, no rebound or guarding Ext: No deformities, no edema, normal range of motion in upper and lower ext Back: No CVA or midline TTP Skin: No rash, warm Lymphatic: No lymphadeopathy noted Neuro: Awake, alert. Face symmetric. GCS 15. Physical Exam - Vital signs Vitals: Temp Pulse Resp BP Pulse Ox 98.8 F 93 13 111/52 L 98 04/28/17 10:04/28/17 10:04/28/17 10:04/28/17 10:04/28/17 10:23 Course - Re-evaluation Re-evalutation: 04/28/17 11:17 Well-appearing 22-year-old female with sickle cell presents with back pain residual from a sickle cell crisis that occurred yesterday. Reviewing her workup yesterday in the ED was normal. She was wanted from her primary care to the ED. She looks very comfortable and has no symptoms consistent with acute chest. I will repeat her CBC and reticulocyte count give her a single dose of IV narcotics. I will call her plaster form maker encourage her to see her in the office this afternoon. 04/28/17 12:[address] Bravo. Recommended outpatient Dilaudid. Labs are normal. Patient appears comfortable. She will be followed up in 2 days. I have discussed with the patient there likely diagnosis, aftercare plan, follow -up plans and my usual and customary return precautions. They verbalized understanding of this. - Vital Signs Vital signs: Temp Pulse Resp BP Pulse Ox 98.8 F 93 13 111/52 L 98 04/28/17 10:04/28/17 10:04/28/17 10:04/28/17 10:18 10:23 - Laboratory Result Diagrams: 04/28/17 11:27 Laboratory results interpreted by me: 04/28/17 11:27 WBC 11.5 H RBC 3.20 L Hgb 10.9 L Hct 31.6 L MCV 99 H MCH 34.1 H RDW 20.1 H Plt Count 489 H Seg Neuts % (Manual) 80 H Lymphocytes % (Manual) 11 L Abs Neuts (Manual) 9.2 H Discharge - Discharge Clinical Impression: Sickle cell pain crisis, Sickle cell anemia with crisis, Pain Condition: Good Disposition: HOME, SELF-CARE Instructions: Oral Narcotic Medication ([facility]) Additional Instructions: I spoken with your oncologist who will see you in 2 days. Please try increasing pain meds and using what I prescribed. Do not mix the Dilaudid orally with oxycodone. Keep well-hydrated. Prescriptions: Hydromorphone HCl [Dilaudid 2 mg Tablet] 2 mg PO Q4HP PRN #20 tablet PRN Reason: Referrals: JOIE MOREIRA MD [Primary Care Provider] - Follow up as needed
[2017-04-28 11:41] LABS: ABSOLUTE RETICS # 0.058 10^6/uL (0.028-0.122); HEMATOCRIT 31.6 % (36.0-47.0); HEMOGLOBIN 10.9 g/dL (12.0-15.5); MEAN CORPUSCULAR HEMOGLOBIN 34.1 pg (27.0-33.4); MEAN CORPUSCULAR HGB CONC 34.5 g/dL (32.0-36.0); MEAN CORPUSCULAR VOLUME 99 fl (80-97); PLATELET COUNT 489 10^3/uL (150-450); RED CELL DISTRIBUTION WIDTH 20.1 % (11.5-14.0); RETICULOCYTE COUNT (AUTO) 1.82 % (0.66-2.85); WHITE BLOOD COUNT 11.5 10^3/uL (4.0-10.5)
[2017-04-28 12:07] LABS: ABSOLUTE LYMPHOCYTES# (MANUAL) 1.3 10^3/uL (0.5-4.7); ABSOLUTE MONOCYTES # (MANUAL) 0.3 10^3/uL (0.1-1.4); ABSOLUTE NEUTROPHILS# (MANUAL) 9.2 10^3/uL (1.7-8.2); BASOPHILS % (MANUAL) 2 % (0-2); EOSINOPHILS % (MANUAL) 4 % (0-6); LYMPHOCYTES % (MANUAL) 11 % (13-45); MONOCYTES % (MANUAL) 3 % (3-13); SEGMENTED NEUTROPHILS % (MAN) 80 % (42-78); TOTAL CELLS COUNTED 100
[2017-04-28 12:08] LABS: ANISOCYTOSIS 2+; PLATELET COMMENT INCREASED; TARGET CELLS 1+; TOXIC GRANULATION SLIGHT
[2017-04-28 12:29] VITALS: BP 100/54
== END 2017-04-28 12:29 | disposition home or self-care (01) ==
LOC: ER 10:19
DX: D57.00 Hb-SS disease with crisis, unspecified (principal); M54.9 Dorsalgia, unspecified; Z87.891 Personal history of nicotine dependence
CPT/HCPCS: 99284; 96361; 96374; 36415; 85025; 85045; J1170; J7030

== ENCOUNTER 2017-05-01 13:29 | Outpatient (CLI) | payer MEDICAID ==
[2017-05-01] MEDS ORDERED: NORMAL SALINE 1000 ML 1,000 ML IV PRN (13:31)
[2017-05-01] MEDS ORDERED: HYDROMORPHONE HCL INJ/PF 2 MG/ML AMPULE IV PRN (13:32)
[2017-05-01 13:52] VITALS: BP 120/57
== END 2017-05-01 15:30 | disposition home or self-care (01) ==
LOC: II 13:29 → 5TH 13:30 → II 15:30
PROVIDERS: ATTEND Internal Medicine
PROC: 3E033GC Introduction of Other Therapeutic Substance into Peripheral Vein, Percutaneous Approach (ICD-10-PCS; principal; 2017-05-01)
PROC: 3E0337Z Introduction of Electrolytic and Water Balance Substance into Peripheral Vein, Percutaneous Approach (ICD-10-PCS; 2017-05-01)
DX: D57.1 Sickle-cell disease without crisis (principal); R52 Pain, unspecified; E86.0 Dehydration
CPT/HCPCS: 96360; J1170; 96361; 96374

== ENCOUNTER 2017-05-09 22:49 | Emergency (ER) | payer MEDICAID ==
[2017-05-09] MEDS ORDERED: HYDROMORPHONE HCL INJ/PF 2 MG/ML AMPULE IV ONE (23:57)
--- NOTE | 2017-05-10 | ER Document Report ---
ED General - General Chief Complaint: Sickle Cell Crisis Stated Complaint: LEG AND BACK PAIN Time Seen by Provider: 05/09/17 23:44 Notes: Patient is a 22-year-old female presents with complaint of leg pain and back pain due to sickle cell. She has a history of sickle cell disease. She has been here many times in the past for sickle cell pain. She says she has had pain for 3 days it is in her low back and her legs. She says this is typical for her sickle cell pain. She is recently switched to oral Dilaudid. She says is not currently controlling this crisis pain. He says she did have one fever on May. She said no fever since then. At that time her temp was 100.6. No vomiting. No diarrhea. No cough. No congestion. No chest pain. No difficulty breathing. She has a history of cholecystectomy. She still has her spleen. No other complaints at this time. TRAVEL OUTSIDE OF THE [place] IN LAST 30 DAYS: No - Related Data Allergies/Adverse Reactions: morphine Adverse Reaction (Severe, Verified 04/28/17 10:21) RASH,SWELLING jacob peppers Adverse Reaction (Severe, Uncoded 04/27/17 20:08) throat closes Past Medical History - Social History Smoking Status: Former Smoker Chew tobacco use (# tins/day): No Frequency of alcohol use: None Drug Abuse: None Family History: Reviewed & Not Pertinent, Hypertension, Other - Sickle cell Patient has suicidal ideation: No Patient has homicidal ideation: No - Past Medical History Cardiac Medical History: Reports: Hx DVT - RUE s/p port placement Denies: Hx Coronary Artery Disease, Hx Heart Attack, Hx Hypertension, Hx Pulmonary Embolism Pulmonary Medical History: Reports: Hx Pneumonia Denies: Hx Asthma, Hx Bronchitis, Hx COPD Neurological Medical History: Denies: Hx Cerebrovascular Accident, Hx Migraine, Hx Seizures Renal/ Medical History: Denies: Hx Peritoneal Dialysis Musculoskeltal Medical History: Denies Hx Arthritis Psychiatric Medical History: Reports: Hx Anxiety, Hx Depression Past Surgical History: Reports: Hx Cholecystectomy - 06/28/2015, Hx Vascular Surgery - port put in December, - Immunizations Immunizations up to date: Yes Hx Diphtheria, Pertussis, Tetanus Vaccination: Yes Review of Systems - Review of Systems Notes: My Normal Review Basic REVIEW OF SYSTEMS: CONSTITUTIONAL : Fever approximately 1 week ago. EENT: Denies eye, ear, throat, or mouth pain or symptoms. Denies nasal or sinus congestion. CARDIOVASCULAR: Denies chest pain. RESPIRATORY: Denies cough, cold, or chest congestion. Denies shortness of breath, difficulty breathing, or wheezing. GASTROINTESTINAL: Denies abdominal pain. Denies nausea, vomiting, or diarrhea. GENITOURINARY: Denies difficulty urinating, painful urination, burning, frequency, or blood in urine. FEMALE GENITOURINARY: Denies vaginal bleeding, abnormal or irregular periods. LMP: MUSCULOSKELETAL: Back and leg pain. SKIN: Denies rash or skin lesions. HEMATOLOGIC : Cell disease NEUROLOGICAL: Denies altered mental status or loss of consciousness. Denies headache. Denies weakness or paralysis or loss of use of either side. Denies problems with gait or speech. Denies sensory or motor loss. ALL OTHER SYSTEMS REVIEWED AND NEGATIVE. Physical Exam - Vital signs Vitals: Temp Pulse Resp BP Pulse Ox 98.3 F 91 16 105/50 L 99 05/09/17 23:13 05/09/17 23:13 05/09/17 23:13 05/09/17 23:13 05/09/17 23:13 - Notes Notes: General Appearance: Well nourished, alert, cooperative, no acute distress, mild obvious discomfort. Vitals: reviewed, See vital signs table. Head: no swelling or tenderness to the head Eyes: PERRL, EOMI, Conjuctiva clear Mouth: No decreasd moisture Throat: No tonsillar inflammation, No airway obstruction, No lymphadenopathy Neck: Supple, no neck tenderness, No thyromegaly Back: Pain to palpation over the lumbar paraspinal musculature. Very minimal pain to palpation over the lumbar spine itself. No step-offs or deformities. No redness or swelling to the back. Lungs: No wheezing, No rales, No rhonci, No accessory muscle use, good air exchange bilaterally. Heart: Normal rate, Regular rythm, No murmur, no rub Abdomen: Normal BS, soft, No rigidity, No abdominal tenderness, No guarding, no rebound, no abdominal masses, no organomegaly Extremities: strength 5/5 in all extremities, good pulses in all extremities, some soreness to palpation of the muscles of the legs bilaterally. No edema. Skin: warm, dry, appropriate color, no rash Neuro: speech clear, oriented x 3, normal affect, responds appropriately to questions. Normal strength in bilateral lower extremities. Normal distal sensation. Course - Re-evaluation Re-evalutation: 05/10/17 01:37 On reevaluation the patient's pain is improving but she still has some significant pain. Vital signs are stable. I will order another dose of pain medicine. Labs are still pending. IV fluids are infusing. Clinically she looks well. 05/10/17 06:23 Patient's pain improved. Patient looks very well. She says she feels well. Her laboratory evaluation is unremarkable except for a hemoglobin of 9.7 which is well within her normal range as well as some leukocytosis. She says she had a fever almost a week ago. She has not had a fever since then she has no infectious type symptoms. She has no cough or congestion. No vomiting. No dysuria. Her urinalysis is negative. Feel she is safe to be discharged home. I strongly encouraged her follow-up closely with Dr. Moreira. I encouraged her return to ER immediately if she has worsening of her symptoms, worsening pain, fevers, cough, difficulty breathing, or if she feels unwell. Dictation of this chart was performed using voice recognition software; therefore, there may be some unintended grammatical errors. - Vital Signs Vital signs: Temp Pulse Resp BP Pulse Ox 98.3 F 91 13 104/60 100 05/09/17 23:13 05/09/17 23:13 05/10/17 04:59 05/10/17 04:59 05/10/17 05:00 - Laboratory Result Diagrams: 05/10/17 00:57 05/10/17 00:57 Laboratory results interpreted by me: 05/10/17 05/10/17 05/10/17 00:57 00:57 02:42 WBC 16.0 H RBC 2.88 L Hgb 9.7 L Hct 27.8 L MCH 33.8 H RDW 18.2 H Plt Count 584 H Eosinophils % 9.9 H Absolute Neutrophils 8.6 H Absolute Eosinophils 1.6 H Absolute Basophils 0.3 H Retic Count (auto) 4.69 H Absolute Retic 0.135 H Chloride 110 H Creatinine 0.51 L Total Bilirubin 2.0 H Urine Urobilinogen 4.0 H Discharge - Discharge Clinical Impression: Sickle cell pain crisis Sickle cell anemia Qualifiers: Sickle-cell associated disorders: with unspecified crisis Qualified Code(s): D57.00 - Hb-SS disease with crisis, unspecified Condition: Good Disposition: HOME, SELF-CARE Additional Instructions: Please follow up with Dr. Moreira on Friday. Please return to the ER if you have fevers, vomiting, difficulty breathing, worsening pain, or feel unwell. Forms: Return to Work Referrals: JOIE MOREIRA MD [ACTIVE STAFF] - 05/12/17
[2017-05-10] MEDS: NORMAL SALINE 1000 ML 1,000 ML IV PRN ×2 (01:05→01:06)
[2017-05-10 01:23] LABS: ABSOLUTE BASOPHILS # (AUTO) 0.3 10^3/uL (0.0-0.2); ABSOLUTE EOSINOPHILS # (AUTO) 1.6 10^3/uL (0.0-0.6); ABSOLUTE LYMPHOCYTES (AUTO) 4.4 10^3/uL (0.5-4.7); ABSOLUTE MONOCYTES (AUTO) 1.2 10^3/uL (0.1-1.4); ABSOLUTE NEUT (AUTO) 8.6 10^3/uL (1.7-8.2); ABSOLUTE RETICS # 0.135 10^6/uL (0.028-0.122); BASOPHILS % (AUTO) 1.8 % (0-2); EOSINOPHILS % (AUTO) 9.9 % (0-6); HEMATOCRIT 27.8 % (36.0-47.0); HEMOGLOBIN 9.7 g/dL (12.0-15.5); LYMPHOCYTES % (AUTO) 27.4 % (13-45); MEAN CORPUSCULAR HEMOGLOBIN 33.8 pg (27.0-33.4); MEAN CORPUSCULAR HGB CONC 35.1 g/dL (32.0-36.0); MEAN CORPUSCULAR VOLUME 96 fl (80-97); MONOCYTES % (AUTO) 7.3 % (3-13); PLATELET COUNT 584 10^3/uL (150-450); RED BLOOD COUNT 2.88 10^6/uL (3.72-5.28); RED CELL DISTRIBUTION WIDTH 18.2 % (11.5-14.0); RETICULOCYTE COUNT (AUTO) 4.69 % (0.66-2.85); SEGMENTED NEUTROPHILS % (AUTO) 53.6 % (42-78); TOTAL CELLS COUNTED % (AUTO) 100 %
[2017-05-10 01:26] LABS: ALANINE AMINOTRANSFERASE 26 U/L (9-52); ALBUMIN 3.8 g/dL (3.5-5.0); ALKALINE PHOSPHATASE 96 U/L (38-126); ANION GAP 9 (5-19); ASPARTATE AMINO TRANSFERASE 24 U/L (14-36); BLOOD UREA NITROGEN 8 mg/dL (7-20); CALCIUM 9.3 mg/dL (8.4-10.2); CARBON DIOXIDE 25 mmol/L (22-30); CHLORIDE 110 mmol/L (98-107); GLUCOSE 97 mg/dL (75-110); POTASSIUM 3.9 mmol/L (3.6-5.0); SODIUM 144.3 mmol/L (137-145); TOTAL PROTEIN 6.5 g/dL (6.3-8.2)
[2017-05-10] MEDS ORDERED: HYDROMORPHONE HCL INJ/PF 2 MG/ML AMPULE IV ONE (01:34)
[2017-05-10 01:50] LABS: ANISOCYTOSIS 1+; OVALOCYTES 1+; PLATELET COMMENT INCREASED; POIKILOCYTOSIS 2+; SICKLE RED CELLS SLIGHT; TARGET CELLS 1+; TEAR DROP CELLS 1+; TOXIC GRANULATION 1+
[2017-05-10 03:08] LABS: APPEARANCE,URINE CLEAR; BILIRUBIN,URINE NEGATIVE (NEGATIVE); COLOR,URINE YELLOW; GLUCOSE, URINE NEGATIVE (NEGATIVE); KETONES,URINE NEGATIVE (NEGATIVE); LEUKOCYTE ESTERASE,URINE NEGATIVE (NEGATIVE); NITRITE,URINE NEGATIVE (NEGATIVE); PROTEIN,URINE NEGATIVE (NEGATIVE)
[2017-05-10 05:27] VITALS: BP 104/60
== END 2017-05-10 05:10 | disposition home or self-care (01) ==
LOC: ER 22:49
DX: D57.00 Hb-SS disease with crisis, unspecified (principal); M54.5 Low back pain; M79.606 Pain in leg, unspecified; D72.829 Elevated white blood cell count, unspecified; Z87.891 Personal history of nicotine dependence; Z86.718 Personal history of other venous thrombosis and embolism
CPT/HCPCS: 36591; 96376; 99284; 96361; 96374; 36415; 84703; 85025; 85045; 80053; 81001; J1170; J7030

== ENCOUNTER 2017-05-12 00:06 | Emergency (ER) | payer MEDICAID ==
[2017-05-12 00:15] VITALS: BP 115/53
[2017-05-12] MEDS ORDERED: DIPHENHYDRAMINE HCL 50 MG/ML VIAL IV ONE ×2 (03:46→05:17)
[2017-05-12] MEDS ORDERED: HYDROMORPHONE HCL INJ/PF 2 MG/ML AMPULE IV ONE ×2 (03:46→05:17)
[2017-05-12] MEDS ORDERED: NORMAL SALINE 1000 ML 1,000 ML IV ONE ×2 (03:47)
[2017-05-12] MEDS ORDERED: KETOROLAC TROMETHAMINE INJ/PF 30 MG/1 ML SDV IV ONE (03:47)
--- NOTE | 2017-05-12 03:48 | ER Document Report ---
ED General - General Chief Complaint: Sickle Cell Crisis Stated Complaint: SICKLE CELL CRISIS Time Seen by Provider: 05/12/17 03:41 Notes: Patient is a 22-year-old female with a history of sickle cell that comes emergency department for chief complaint of back pain. She states she has been having intermittently over the past few days, she was seen 3 days ago, she states that the weather change has affected her and her oral medications are not helping enough with the pain. She denies fever, difficulty breathing, nausea or vomiting, dysuria, and the pain is in her general lower back where she "usually has pain with this". She states she is compliant with her medications, still follows with local hematology Dr. Baum. TRAVEL OUTSIDE OF THE [place] IN LAST 30 DAYS: No - Related Data Allergies/Adverse Reactions: morphine Adverse Reaction (Severe, Verified 04/28/17 10:21) RASH,SWELLING jacob peppers Adverse Reaction (Severe, Uncoded 04/27/17 20:08) throat closes Past Medical History - General Information source: Patient - Social History Smoking Status: Never Smoker Frequency of alcohol use: None Drug Abuse: None Lives with: Family Family History: Reviewed & Not Pertinent, Hypertension, Other - Sickle cell - Past Medical History Cardiac Medical History: Reports: Hx DVT - RUE s/p port placement Denies: Hx Coronary Artery Disease, Hx Heart Attack, Hx Hypertension, Hx Pulmonary Embolism Pulmonary Medical History: Reports: Hx Pneumonia Denies: Hx Asthma, Hx Bronchitis, Hx COPD Neurological Medical History: Denies: Hx Cerebrovascular Accident, Hx Migraine, Hx Seizures Renal/ Medical History: Denies: Hx Peritoneal Dialysis Musculoskeltal Medical History: Denies Hx Arthritis Psychiatric Medical History: Reports: Hx Anxiety, Hx Depression Past Surgical History: Reports: Hx Cholecystectomy - 06/28/2015, Hx Vascular Surgery - port put in December, - Immunizations Immunizations up to date: Yes Hx Diphtheria, Pertussis, Tetanus Vaccination: Yes Review of Systems - Review of Systems Constitutional: No symptoms reported EENT: No symptoms reported Cardiovascular: See HPI Respiratory: No symptoms reported Gastrointestinal: No symptoms reported Genitourinary: No symptoms reported Female Genitourinary: No symptoms reported Musculoskeletal: See HPI Skin: No symptoms reported Hematologic/Lymphatic: No symptoms reported Neurological/Psychological: No symptoms reported Physical Exam - Vital signs Vitals: Temp Pulse BP Pulse Ox 98.6 F 93 115/53 L 98 05/12/17 00:13 05/12/17 00:13 05/12/17 00:13 05/12/17 00:13 Interpretation: Normal - General General appearance: Appears well In distress: None - HEENT Head: Normocephalic, Atraumatic Eyes: Normal Pupils: PERRL - Respiratory Respiratory status: No respiratory distress Chest status: Nontender Breath sounds: Normal. No: Decreased air movement, Wheezing Chest palpation: Normal - Cardiovascular Rhythm: Regular. No: Tachycardia Heart sounds: Normal auscultation, S1 appreciated, S2 appreciated Murmur: No - Abdominal Inspection: Normal Distension: No distension Bowel sounds: Normal Tenderness: Nontender Organomegaly: No organomegaly - Back Back: Normal, Nontender - Extremities General upper extremity: Normal inspection, Nontender, Normal color, Normal ROM , Normal temperature General lower extremity: Normal inspection, Nontender, Normal color, Normal ROM , Normal temperature, Normal weight bearing. No: Glen's sign - Neurological Neuro grossly intact: Yes Cognition: Normal Orientation: AAOx4 Sina Coma Scale Eye Opening: Spontaneous [place] Coma Scale Verbal: Oriented [place] Coma Scale Motor: Obeys Commands Sina Coma Scale Total: 15 Speech: Normal Motor strength normal: LUE, RUE, LLE, RLE Sensory: Normal - Psychological Associated symptoms: Normal affect, Normal mood - Skin Skin Temperature: Warm Skin Moisture: Dry Skin Color: Normal Course - Re-evaluation Re-evalutation: Patient smiling, conversational, well-appearing. She has however telling me that she is in a lot of pain. Because of sickle cell history she was provided with IV fluids, pain medication. CBC shows leukocytosis, not significantly different from prior, no developing anemia, reticulocytes not significantly changed or elevated. BUN is slightly elevated suggesting some cycling has gone on. Vital signs completely unremarkable. No fever, no reported symptoms other than lower back pain, no neurological deficits. On examination patient reports she is feeling much better, requests "one more round", states that after that she feels like she could go home. Based on her evaluation I believe this is appropriate. Patient reevaluated again, she is sitting up in the bed, eating crackers, smiling, states she feels good and she is ready to go. Patient will be discharged with follow-up instructions and return precautions. She states understanding and agreement. - Vital Signs Vital signs: Temp Pulse Resp BP Pulse Ox 98.6 F 93 115/53 L 98 05/12/17 00:13 05/12/17 00:13 05/12/17 00:13 05/12/17 00:13 - Laboratory Result Diagrams: 05/12/17 04:20 05/12/17 04:20 Laboratory results interpreted by me: 05/12/17 05/12/17 04:20 04:20 WBC 17.1 H RBC 2.95 L Hgb 9.9 L Hct 28.1 L MCH 33.6 H RDW 17.8 H Plt Count 570 H Absolute Neutrophils 12.0 H Absolute Eosinophils 0.7 H Retic Count (auto) 4.07 H Chloride 109 H Creatinine 0.48 L Total Bilirubin 2.4 H Discharge - Discharge Clinical Impression: Sickle cell pain crisis Back pain Qualifiers: Back pain location: low back pain Chronicity: acute Back pain laterality: bilateral Sciatica presence: without sciatica Qualified Code(s): M54.5 - Low back pain Condition: Stable Disposition: HOME, SELF-CARE Additional Instructions: Take your prescribed medications, hydrate, rest. Follow-up with your primary care provider closely. Return if you worsen including fever of 100.4 or greater, worsening pain, vomiting, difficulty breathing, or any other concerning symptoms.
[2017-05-12 04:40] LABS: ABSOLUTE BASOPHILS # (AUTO) 0.2 10^3/uL (0.0-0.2); ABSOLUTE EOSINOPHILS # (AUTO) 0.7 10^3/uL (0.0-0.6); ABSOLUTE LYMPHOCYTES (AUTO) 3.1 10^3/uL (0.5-4.7); ABSOLUTE MONOCYTES (AUTO) 1.1 10^3/uL (0.1-1.4); BASOPHILS % (AUTO) 1.3 % (0-2); EOSINOPHILS % (AUTO) 4.4 % (0-6); HEMATOCRIT 28.1 % (36.0-47.0); HEMOGLOBIN 9.9 g/dL (12.0-15.5); LYMPHOCYTES % (AUTO) 18.1 % (13-45); MEAN CORPUSCULAR HEMOGLOBIN 33.6 pg (27.0-33.4); MEAN CORPUSCULAR HGB CONC 35.2 g/dL (32.0-36.0); MEAN CORPUSCULAR VOLUME 95 fl (80-97); MONOCYTES % (AUTO) 6.2 % (3-13); PLATELET COUNT 570 10^3/uL (150-450); RED BLOOD COUNT 2.95 10^6/uL (3.72-5.28); RED CELL DISTRIBUTION WIDTH 17.8 % (11.5-14.0); RETICULOCYTE COUNT (AUTO) 4.07 % (0.66-2.85); TOTAL CELLS COUNTED % (AUTO) 100 %; WHITE BLOOD COUNT 17.1 10^3/uL (4.0-10.5)
[2017-05-12 04:58] LABS: ALANINE AMINOTRANSFERASE 23 U/L (9-52); ALBUMIN 3.8 g/dL (3.5-5.0); ALKALINE PHOSPHATASE 71 U/L (38-126); ANION GAP 9 (5-19); ASPARTATE AMINO TRANSFERASE 21 U/L (14-36); BILIRUBIN,DIRECT 0.3 mg/dL (0.0-0.4); BILIRUBIN,TOTAL 2.4 mg/dL (0.2-1.3); BLOOD UREA NITROGEN 7 mg/dL (7-20); CALCIUM 9.6 mg/dL (8.4-10.2); CARBON DIOXIDE 23 mmol/L (22-30); CHLORIDE 109 mmol/L (98-107); GLUCOSE 89 mg/dL (75-110); POTASSIUM 3.8 mmol/L (3.6-5.0); SODIUM 141.2 mmol/L (137-145); TOTAL PROTEIN 6.9 g/dL (6.3-8.2)
[2017-05-12 05:02] LABS: ANISOCYTOSIS 1+; OVALOCYTES SLIGHT; PLATELET COMMENT ADEQUATE; POIKILOCYTOSIS 1+; SCHISTOCYTES 1+; SICKLE RED CELLS 1+; TARGET CELLS 2+; TEAR DROP CELLS 1+; TOXIC GRANULATION 2+
[2017-05-12 05:03] LABS: PLATELET LARGE PRESENT
== END 2017-05-12 06:51 | disposition home or self-care (01) ==
LOC: ER 00:06
DX: D57.00 Hb-SS disease with crisis, unspecified (principal); M54.5 Low back pain; M54.9 Dorsalgia, unspecified
CPT/HCPCS: 36591; 96376; 99284; 96361; 96374; 96375; 36415; 84703; 85025; 85045; 80053; J1200; J1885; J1170; J7030

== ENCOUNTER 2017-05-14 09:43 | Emergency (ER) | payer MEDICAID ==
[2017-05-14 12:04] LABS: ABSOLUTE BASOPHILS # (AUTO) 0.2 10^3/uL (0.0-0.2); ABSOLUTE EOSINOPHILS # (AUTO) 0.7 10^3/uL (0.0-0.6); ABSOLUTE NEUT (AUTO) 13.1 10^3/uL (1.7-8.2); BASOPHILS % (AUTO) 0.9 % (0-2); EOSINOPHILS % (AUTO) 3.6 % (0-6); HEMATOCRIT 31.6 % (36.0-47.0); HEMOGLOBIN 11.1 g/dL (12.0-15.5); LYMPHOCYTES % (AUTO) 16.9 % (13-45); MEAN CORPUSCULAR HEMOGLOBIN 33.3 pg (27.0-33.4); MEAN CORPUSCULAR HGB CONC 35.1 g/dL (32.0-36.0); MEAN CORPUSCULAR VOLUME 95 fl (80-97); MONOCYTES % (AUTO) 5.6 % (3-13); PLATELET COUNT 548 10^3/uL (150-450); RED BLOOD COUNT 3.33 10^6/uL (3.72-5.28); TOTAL CELLS COUNTED % (AUTO) 100 %
[2017-05-14 12:10] LABS: INTERNATIONAL RATION (INR) 1.54; PROTHROMBIN TIME 19.4 SEC (11.4-15.4)
[2017-05-14 12:11] LABS: PARTIAL THROMBOPLASTIN TIME 42.2 SEC (23.5-35.8)
--- NOTE | 2017-05-14 12:14 | RADIOLOGY REPORT (SQ) ---
EXAM DESCRIPTION: CHEST PA/LAT COMPLETED DATE/TIME: 05/14/2017 11:56 am REASON FOR STUDY: abnormal breath sounds COMPARISON: 04/17/2017 EXAM PARAMETERS: NUMBER OF VIEWS: two views TECHNIQUE: Digital Frontal and Lateral radiographic views of the chest acquired. RADIATION DOSE: NA LIMITATIONS: none FINDINGS: LUNGS AND PLEURA: No opacities, masses or pneumothorax. No pleural effusion. MEDIASTINUM AND HILAR STRUCTURES: No masses or contour abnormalities. HEART AND VASCULAR STRUCTURES: Heart normal size. No evidence for failure. BONES: No acute findings. HARDWARE: None in the chest. OTHER: Stable position of right-sided port. IMPRESSION: NO SIGNIFICANT RADIOGRAPHIC FINDING IN THE CHEST. TECHNICAL DOCUMENTATION: JOB ID: [id number] [employer]- All Rights Reserved
[2017-05-14 12:21] LABS: ALANINE AMINOTRANSFERASE 22 U/L (9-52); ALBUMIN 4.5 g/dL (3.5-5.0); ALKALINE PHOSPHATASE 62 U/L (38-126); ANION GAP 11 (5-19); ASPARTATE AMINO TRANSFERASE 30 U/L (14-36); BILIRUBIN,DIRECT 0.1 mg/dL (0.0-0.4); BILIRUBIN,TOTAL 3.4 mg/dL (0.2-1.3); BLOOD UREA NITROGEN 7 mg/dL (7-20); CALCIUM 9.9 mg/dL (8.4-10.2); CARBON DIOXIDE 24 mmol/L (22-30); CHLORIDE 106 mmol/L (98-107); CHOLESTEROL 133.77 mg/dL (0-200); GLUCOSE 74 mg/dL (75-110); POTASSIUM 4.5 mmol/L (3.6-5.0); SODIUM 140.9 mmol/L (137-145); TOTAL PROTEIN 7.8 g/dL (6.3-8.2); TRIGLYCERIDES 52 mg/dL (<150)
[2017-05-14 12:32] LABS: DIRECT LDL 91 mg/dL (<100)
--- NOTE | 2017-05-14 13:11 | ER Document Report ---
ED General - General Chief Complaint: Medical Clearance Stated Complaint: MEDICAL CLEARANCE Time Seen by Provider: 05/14/17 10:57 Mode of Arrival: Ambulatory Information source: Patient Notes: Patient is sent from [facility]. She is sent for routine laboratory evaluation for possible admission. Patient denies any complaints or problems at this time. She does complain of depression. She denies any problems with her sickle-cell currently. Symptoms are mild. They are worse with stress and better without. There is no known radiation symptoms. They have been intermittent. TRAVEL OUTSIDE OF THE [place] IN LAST 30 DAYS: No - Related Data Allergies/Adverse Reactions: morphine Adverse Reaction (Severe, Verified 05/14/17 09:45) RASH,SWELLING jacob peppers Adverse Reaction (Severe, Uncoded 04/27/17 20:08) throat closes Past Medical History - General Information source: Patient - Social History Smoking Status: Never Smoker Chew tobacco use (# tins/day): No Frequency of alcohol use: None Drug Abuse: None Family History: Reviewed & Not Pertinent, Hypertension, Other - Sickle cell Patient has suicidal ideation: No Patient has homicidal ideation: No - Past Medical History Cardiac Medical History: Reports: Hx DVT - RUE s/p port placement Denies: Hx Coronary Artery Disease, Hx Heart Attack, Hx Hypertension, Hx Pulmonary Embolism Pulmonary Medical History: Reports: Hx Pneumonia Denies: Hx Asthma, Hx Bronchitis, Hx COPD Neurological Medical History: Denies: Hx Cerebrovascular Accident, Hx Migraine, Hx Seizures Renal/ Medical History: Denies: Hx Peritoneal Dialysis Musculoskeltal Medical History: Denies Hx Arthritis Psychiatric Medical History: Reports: Hx Anxiety, Hx Depression Past Surgical History: Reports: Hx Cholecystectomy - 06/28/2015, Hx Vascular Surgery - port put in December, - Immunizations Immunizations up to date: Yes Hx Diphtheria, Pertussis, Tetanus Vaccination: Yes Review of Systems - Review of Systems Constitutional: denies: Chills, Fever, Recent illness Cardiovascular: denies: Chest pain, Palpitations Respiratory: denies: Cough, Short of breath -: Yes All other systems reviewed and negative Physical Exam - Vital signs Vitals: Temp Pulse Resp BP Pulse Ox 98.1 F 84 16 104/51 L 98 05/14/17 09:58 05/14/17 09:58 05/14/17 09:58 05/14/17 09:58 05/14/17 09:58 Interpretation: Normal - General General appearance: Appears well, Alert - HEENT Head: Normocephalic, Atraumatic Eyes: Normal Pupils: PERRL - Respiratory Respiratory status: No respiratory distress Chest status: Nontender Breath sounds: Normal Chest palpation: Normal - Cardiovascular Rhythm: Regular Heart sounds: Normal auscultation Murmur: No - Abdominal Inspection: Normal Distension: No distension Bowel sounds: Normal Tenderness: Nontender Organomegaly: No organomegaly - Back Back: Normal, Nontender - Extremities General upper extremity: Normal inspection, Nontender, Normal color, Normal ROM , Normal temperature General lower extremity: Normal inspection, Nontender, Normal color, Normal ROM , Normal temperature, Normal weight bearing. No: Glen's sign - Neurological Neuro grossly intact: Yes Cognition: Normal Orientation: AAOx4 Sina Coma Scale Eye Opening: Spontaneous [place] Coma Scale Verbal: Oriented [place] Coma Scale Motor: Obeys Commands Sina Coma Scale Total: 15 Speech: Normal Motor strength normal: LUE, RUE, LLE, RLE Sensory: Normal - Psychological Associated symptoms: Normal affect, Normal mood - Skin Skin Temperature: Warm Skin Moisture: Dry Skin Color: Normal Course - Re-evaluation Re-evalutation: 05/14/17 13:10 Patient's laboratory workup shows her to have an elevated white blood cell count however this is not significantly different from previous elevated white blood cell counts that she has had. Patient has no evidence of infection denies any symptoms. Patient's hemoglobin is stable. Has a mildly low thyroid test which will need to be monitored but does not require acute intervention. Best of patient's evaluation including EKG and chest x-ray show no evidence of acute ab normality. - Vital Signs Vital signs: Temp Pulse Resp BP Pulse Ox 98.1 F 84 16 104/51 L 98 05/14/17 09:58 05/14/17 09:58 05/14/17 09:58 05/14/17 09:58 05/14/17 09:58 - Laboratory Result Diagrams: 05/14/17 11:40 05/14/17 11:40 Laboratory results interpreted by me: 05/14/17 05/14/17 05/14/17 11:40 11:40 11:40 WBC 18.0 H RBC 3.33 L Hgb 11.1 L Hct 31.6 L RDW 18.0 H Plt Count 548 H Absolute Neutrophils 13.1 H Absolute Eosinophils 0.7 H PT 19.4 H APTT 42.2 H Creatinine 0.51 L Glucose 74 L Hemoglobin A1c % Total Bilirubin 3.4 H HDL Cholesterol 35 L TSH 05/14/17 05/14/17 11:40 11:40 WBC RBC Hgb Hct RDW Plt Count Absolute Neutrophils Absolute Eosinophils PT APTT Creatinine Glucose Hemoglobin A1c % 4.5 L Total Bilirubin HDL Cholesterol TSH 0.37 L Discharge - Discharge Clinical Impression: Depression Qualifiers: Depression Type: unspecified Qualified Code(s): F32.9 - Major depressive disorder, single episode, unspecified Condition: Stable Disposition: HOME, SELF-CARE Instructions: Depression ([facility]) Additional Instructions: Please go to [facility] as instructed
[2017-05-14 13:39] VITALS: BP 105/50
--- NOTE | 2017-05-15 08:50 | EKG REPORT ---
SEVERITY:- NORMAL ECG - SINUS RHYTHM : Confirmed by: Nathan Lopez 15-May-2017 08:49:17
== END 2017-05-14 13:39 | disposition home or self-care (01) ==
LOC: ER 09:43
DX: F32.9 Major depressive disorder, single episode, unspecified (principal); Z90.49 Acquired absence of other specified parts of digestive tract; Z86.718 Personal history of other venous thrombosis and embolism; Z88.6 Allergy status to analgesic agent
CPT/HCPCS: 36415; 71046; 80053; 80061; 82962; 83036; 84443; 85025; 85610; 85730; 93005; 93010; 99284

== ENCOUNTER 2017-05-20 20:07 | Emergency (ER) | payer MEDICAID, OTHER ==
[2017-05-20] MEDS ORDERED: NORMAL SALINE 1000 ML 1,000 ML IV PRN (21:05)
[2017-05-20] MEDS ORDERED: ONDANSETRON HCL INJ/PF 4 MG/2 ML SDV IV ONE (21:05)
[2017-05-20] MEDS ORDERED: DIPHENHYDRAMINE HCL 50 MG/ML VIAL IV ONE (21:05)
[2017-05-20] MEDS ORDERED: HYDROMORPHONE HCL INJ/PF 2 MG/ML AMPULE IV ONE (21:05)
[2017-05-20 21:46] LABS: ABSOLUTE BASOPHILS # (AUTO) 0.2 10^3/uL (0.0-0.2); ABSOLUTE LYMPHOCYTES (AUTO) 1.2 10^3/uL (0.5-4.7); ABSOLUTE MONOCYTES (AUTO) 0.7 10^3/uL (0.1-1.4); ABSOLUTE RETICS # 0.139 10^6/uL (0.028-0.122); EOSINOPHILS % (AUTO) 0.1 % (0-6); HEMATOCRIT 29.7 % (36.0-47.0); HEMOGLOBIN 10.5 g/dL (12.0-15.5); LYMPHOCYTES % (AUTO) 7.1 % (13-45); MEAN CORPUSCULAR HGB CONC 35.4 g/dL (32.0-36.0); MEAN CORPUSCULAR VOLUME 93 fl (80-97); MONOCYTES % (AUTO) 4.3 % (3-13); PLATELET COUNT 496 10^3/uL (150-450); RED BLOOD COUNT 3.18 10^6/uL (3.72-5.28); RED CELL DISTRIBUTION WIDTH 18.8 % (11.5-14.0); RETICULOCYTE COUNT (AUTO) 4.37 % (0.66-2.85); SEGMENTED NEUTROPHILS % (AUTO) 87.5 % (42-78); TOTAL CELLS COUNTED % (AUTO) 100 %; WHITE BLOOD COUNT 17.2 10^3/uL (4.0-10.5)
--- NOTE | 2017-05-20 21:56 | ER Document Report ---
ED General Pain - General Chief Complaint: Sickle Cell Crisis Stated Complaint: SICKLE CELL CRISIS Time Seen by Provider: 05/20/17 20:40 Mode of Arrival: Ambulatory Information source: Patient Notes: 22-year-old female presents to ED for complaint of left leg pain since noon got little worse around 5. She states that sickle cell pain. She is in the bed crying reason and pain. She states she does have a port and that she usually gets Benadryl nausea medicine with IV fluids for her pain. She was recently in the emergency room for sickle cell pain and for SI. She states she was taken to an inpatient psych facility for about a week and has been discharged with a diagnosis of major depressive disorder. TRAVEL OUTSIDE OF THE [place] IN LAST 30 DAYS: No - HPI Onset: This afternoon Onset/Duration: Gradual, Worse Quality of pain: Burning, Sharp Severity: Moderate Pain Level: 3 Context: Other - Left leg pain Typical of prior episodes of painful crisis: Yes Genotype: SS Associated symptoms: Muscle aches Exacerbated by: Movement Relieved by: Denies Similar symptoms previously: Yes Recently seen / treated by doctor: Yes - Related Data Allergies/Adverse Reactions: morphine Adverse Reaction (Severe, Verified 05/14/17 09:45) RASH,SWELLING jacob peppers Adverse Reaction (Severe, Uncoded 04/27/17 20:08) throat closes Past Medical History - General Information source: Patient - Social History Smoking Status: Never Smoker Cigarette use (# per day): No Chew tobacco use (# tins/day): No Smoking Education Provided: No Frequency of alcohol use: None Drug Abuse: None Lives with: Family Family History: Hypertension, Other - Sickle cell. denies: Arthritis, CAD, COPD , CVA, DM, Hyperlipidemia, Malignancy, Thyroid Disfunction Patient has suicidal ideation: No Patient has homicidal ideation: No - Past Medical History Cardiac Medical History: Reports: Hx DVT - RUE s/p port placement Pulmonary Medical History: Reports: Hx Pneumonia EENT Medical History: Reports: None Neurological Medical History: Reports: None Endocrine Medical History: Reports: None Renal/ Medical History: Reports: None Malignancy Medical History: Reports: None GI Medical History: Reports: None Musculoskeltal Medical History: Reports Hx Musculoskeletal Trauma Skin Medical History: Reports None Psychiatric Medical History: Reports: Hx Anxiety, Hx Depression Traumatic Medical History: Reports: None Infectious Medical History: Reports: None Past Surgical History: Reports: Hx Cholecystectomy - 06/28/2015, Hx Vascular Surgery - port put in December, - Immunizations Immunizations up to date: Yes Hx Diphtheria, Pertussis, Tetanus Vaccination: Yes Review of Systems - Review of Systems Notes: Constitutional: [PRESENT: as per HPI. ABSENT: chills, fever(s), headache(s), weight gain, weight loss] Eyes: [ABSENT: visual disturbances] Ears: [ABSENT: hearing changes] Cardiovascular: [ABSENT: chest pain, dyspnea on exertion, edema, orthropnea, palpitations] Respiratory: [ABSENT: cough, hemoptysis] Gastrointestinal: [ABSENT: abdominal pain, constipation, diarrhea, hematemesis, hematochezia, nausea, vomiting] Genitourinary: [ABSENT: dysuria, hematuria] Musculoskeletal: [ABSENT: joint swelling] pain to left lower and upper leg. Denies any back chest pain Integumentary: [ABSENT: rash, wounds] Neurological: [ABSENT: abnormal gait, abnormal speech, confusion, dizziness, focal weakness, syncope] Psychiatric: [ABSENT: depression, homicidal ideation, suicidal ideation] she is due to her sickle cell pain Endocrine: [ABSENT: cold intolerance, heat intolerance, menstrual abnormalities , polydipsia, polyuria] Hematologic/Lymphatic: [ABSENT: easy bleeding, easy bruising, lymphadenopathy] Physical Exam - Vital signs Vitals: Temp Pulse Resp BP Pulse Ox 98.6 F 99 20 118/79 97 05/20/17 20:23 05/20/17 20:23 05/20/17 20:23 05/20/17 20:23 05/20/17 20:23 - Notes Notes: PHYSICAL EXAMINATION: GENERAL: 22-year-old anxious female well-nourished and in no acute distress. HEAD: Atraumatic, normocephalic. EYES: Pupils equal round and reactive to light, extraocular movements intact, conjunctiva are normal. ENT: Nares patent, oropharynx clear without exudates. Moist mucous membranes. NECK: Normal range of motion, supple without lymphadenopathy LUNGS: Breath sounds clear to auscultation bilaterally and equal. No wheezes rales or rhonchi. HEART: Regular rate and rhythm without murmurs ABDOMEN: Soft, nontender, nondistended abdomen. No guarding, no rebound. No masses appreciated. Female : deferred Musculoskeletal: Normal range of motion, no pitting or edema. No cyanosis. NEUROLOGICAL: Cranial nerves grossly intact. Normal speech, normal gait. Normal sensory, motor exams PSYCH: Normal mood, normal affect. SKIN: Warm, Dry, normal turgor, no rashes or lesions noted. Course - Re-evaluation Re-evalutation: 05/21/17 01:28 Patient was treated with Dilaudid 1 mg, Benadryl 25 mg, IV Zofran 8 mg, IV 2 L oxygen, and 2 L of IV fluid. She states she is feeling much better and is ready to go home. Patient was instructed to follow-up with hematology in the morning by telephone schedule a follow-up visit within the next 24/48 hrs. Patient verbalized understanding. Patient has her as needed medications at home for her sickle cell pain. He was encouraged to increase her p.o. fluids. - Vital Signs Vital signs: Temp Pulse Resp BP Pulse Ox 98.4 F 87 20 93/50 L 97 05/21/17 01:12 05/21/17 01:12 05/21/17 01:12 05/21/17 01:12 05/21/17 01:12 - Laboratory Result Diagrams: 05/20/17 21:35 05/20/17 21:35 Laboratory results interpreted by me: 05/20/17 05/20/17 21:35 21:35 WBC 17.2 H RBC 3.18 L Hgb 10.5 L Hct 29.7 L RDW 18.8 H Plt Count 496 H Seg Neutrophils % 87.5 H Lymphocytes % 7.1 L Absolute Neutrophils 15.0 H Retic Count (auto) 4.37 H Absolute Retic 0.139 H Glucose 116 H Total Bilirubin 5.6 H AST 40 H Total Protein 8.7 H Discharge - Discharge Clinical Impression: Sickle cell pain crisis Condition: Stable Disposition: HOME, SELF-CARE Additional Instructions: Sickle Cell Crisis You have "sickle cell crisis." Sickle cell disease is caused by abnormal hemoglobin. This hemoglobin can deform red blood cells into a sickle shape. These abnormal blood cells can block blood vessels. This causes the pain of sickle cell crisis. Sickle cell crisis can occur any time. But attacks are more likely with acute infection, dehydration, or altitude change. A crisis usually causes pain in the legs, back, abdomen, and chest. Sometimes the pain may ease and return later. The usual treatment is oxygen, pain medication, IV fluids, and treatment of infection. Attacks may take a couple of days to resolve. Return if the pain becomes more severe, or if there are new symptoms. Pain Medication Injection You have received an injection of a pain medication. You should experience significant pain relief within 45 minutes. This drug is a narcotic - - it will impair your judgement, slow your reaction time and make you sleepy ( as well as relieve your pain). Narcotics also can cause nausea. You should not drive, work with machinery, or perform any task requiring mental alertness until all effects of the medication are gone -- six to eight hours. Do not take any alcohol, or sedatives, and do not take any other medication without checking with your physician. Intravenous (IV) Fluids As part of your care today, you received intravenous (IV) fluids. IV fluids are administered to patients who are dehydrated or to those who have certain chemical (electrolyte) abnormalities that need correcting. Antinausea Medication You have been given a medication to suppress nausea and vomiting. This type of medication can be given as a shot, pill, or suppository. It will usually last for many hours. Pills and shots usually last six to eight hours, suppositories last about 12 hours. For the typical illness, only one or two doses of the medication may be necessary. Mild lightheadedness may occur. This type of medicine can cause drowsiness. Do not drive or operate dangerous machinery while under its influence. Do not mix with alcohol. See your doctor at once if you have muscle spasms or tightness, or uncontrollable motions (particularly of the neck, mouth, or jaw). Persistent vomiting or severe lightheadedness should also be evaluated by the physician. Diphenhydramine The use of diphenhydramine (Benadryl) has been recommended to control allergic symptoms. The 25 mg strength is available over- the-counter, as well as the elixir. This antihistamine is used for many symptoms. It's useful for itching, watering eyes and nose, allergic swelling, hives, and insect stings. The medication can be repeated four times daily. Age Elixir (12.5 mg/tsp) 25 mg pill 1 yr 1/4 tsp 2-3 yr 1/2 tsp 4-8 yr 1 tsp 9-14 yr 2 tsp one tab adult 1-2 tabs Antihistamines may cause drowsiness, especially with the first dose. Do not operate machinery or drive while under the effects of the medication. Do not combine the medication with alcohol, or with any other medication without talking to your doctor. FOLLOW-UP CARE: If you have been referred to a physician for follow-up care, call the physician s office for an appointment as you were instructed or within the next two days. If you experience worsening or a significant change in your symptoms, notify the physician immediately or return to the Emergency Department at any time for re-evaluation. Referrals: JOIE MOREIRA MD [ACTIVE STAFF] - 05/21/17
[2017-05-20 22:00] LABS: ALANINE AMINOTRANSFERASE 26 U/L (9-52); ALBUMIN 4.9 g/dL (3.5-5.0); ALKALINE PHOSPHATASE 80 U/L (38-126); ANION GAP 14 (5-19); ASPARTATE AMINO TRANSFERASE 40 U/L (14-36); BILIRUBIN,DIRECT 0.1 mg/dL (0.0-0.4); BILIRUBIN,TOTAL 5.6 mg/dL (0.2-1.3); BLOOD UREA NITROGEN 9 mg/dL (7-20); CALCIUM 9.7 mg/dL (8.4-10.2); CARBON DIOXIDE 24 mmol/L (22-30); CHLORIDE 104 mmol/L (98-107); GLUCOSE 116 mg/dL (75-110); POTASSIUM 4.1 mmol/L (3.6-5.0); SODIUM 142.2 mmol/L (137-145); TOTAL PROTEIN 8.7 g/dL (6.3-8.2)
[2017-05-20 22:11] LABS: ANISOCYTOSIS 1+; OVALOCYTES SLIGHT; PLATELET COMMENT INCREASED; POIKILOCYTOSIS SLIGHT; SICKLE RED CELLS SLIGHT; TARGET CELLS SLIGHT; TEAR DROP CELLS SLIGHT; TOXIC GRANULATION SLIGHT
[2017-05-21 01:27] VITALS: BP 93/50
== END 2017-05-21 01:46 | disposition home or self-care (01) ==
LOC: ER 20:07
DX: D57.00 Hb-SS disease with crisis, unspecified (principal); M79.605 Pain in left leg; Z88.6 Allergy status to analgesic agent
CPT/HCPCS: 36591; 99284; 96361; 96374; 96375; 36415; 85025; 85045; 80053; J1200; J1170; J2405; J7030

== ENCOUNTER 2017-05-25 19:02 | Emergency (ER) | payer MEDICAID ==
--- NOTE | 2017-05-25 20:09 | ER Document Report ---
ED General - General Chief Complaint: Sickle Cell Crisis Stated Complaint: RIGHT LEG PAIN Time Seen by Provider: 05/25/17 20:07 Notes: Patient is a 22-year-old female well-known to the emergency department history of hemoglobin SS sickle cell disease who presents with a vaso-occlusive crisis. Patient reports severe, constant throbbing pain to her right leg and low back which is typical for her pain crises. She has tried her home pain medications without any relief of her pain. She denies any cough, shortness of breath, fever, vomiting or abdominal pain. 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 Nothing worsens or has triggered this episode. She states this is identical to prior pain crises that she has had in the past and is requesting pain control. TRAVEL OUTSIDE OF THE [place] IN LAST 30 DAYS: No - Related Data Allergies/Adverse Reactions: morphine Adverse Reaction (Severe, Verified 05/25/17 19:02) RASH,SWELLING jacob peppers Adverse Reaction (Severe, Uncoded 05/25/17 19:02) throat closes Past Medical History - General Information source: Patient - Social History Smoking Status: Never Smoker Frequency of alcohol use: None Drug Abuse: None Lives with: Family Family History: Hypertension, Other - Sickle cell. denies: Arthritis, CAD, COPD , CVA, DM, Hyperlipidemia, Malignancy, Thyroid Disfunction - Past Medical History Cardiac Medical History: Reports: Hx DVT - RUE s/p port placement Denies: Hx Coronary Artery Disease, Hx Heart Attack, Hx Hypertension, Hx Pulmonary Embolism Pulmonary Medical History: Reports: Hx Pneumonia Denies: Hx Asthma, Hx Bronchitis, Hx COPD Neurological Medical History: Denies: Hx Cerebrovascular Accident, Hx Migraine, Hx Seizures Renal/ Medical History: Denies: Hx Peritoneal Dialysis Musculoskeltal Medical History: Denies Hx Arthritis, Reports Hx Musculoskeletal Trauma Psychiatric Medical History: Reports: Hx Anxiety, Hx Depression Past Surgical History: Reports: Hx Cholecystectomy - 06/28/2015, Hx Vascular Surgery - port put in December, - Immunizations Immunizations up to date: Yes Hx Diphtheria, Pertussis, Tetanus Vaccination: Yes Review of Systems - Review of Systems Notes: Constitutional: Negative for fever. HENT: Negative for sore throat. Eyes: Negative for visual changes. Cardiovascular: Negative for chest pain. Respiratory: Negative for shortness of breath. Gastrointestinal: Negative for abdominal pain, vomiting or diarrhea. Genitourinary: Negative for dysuria. Musculoskeletal: Positive for low back pain and right leg pain Skin: Negative for rash. Neurological: Negative for headaches, weakness or numbness. 10 point ROS negative except as marked above and in HPI. Physical Exam - Vital signs Vitals: Temp Pulse BP Pulse Ox 98.2 F 88 119/63 98 05/25/17 19:07 05/25/17 19:07 05/25/17 19:07 05/25/17 19:07 Interpretation: Normal Notes: PHYSICAL EXAMINATION: GENERAL: Appears to be in pain, uncomfortable but no acute distress HEAD: Atraumatic, normocephalic. EYES: Pupils equal round and reactive to light, extraocular movements intact, sclera anicteric, conjunctiva are normal. ENT: nares patent, oropharynx clear without exudates. Moist mucous membranes. NECK: Normal range of motion, supple without lymphadenopathy LUNGS: Breath sounds clear to auscultation bilaterally and equal. No wheezes rales or rhonchi. HEART: Regular rate and rhythm without murmurs ABDOMEN: Soft, nontender, normoactive bowel sounds. No guarding, no rebound. No masses appreciated. EXTREMITIES: Normal range of motion, no pitting or edema. No cyanosis. NEUROLOGICAL: No focal neurological deficits. Moves all extremities spontaneously and on command. PSYCH: Moderately anxious SKIN: Warm, Dry, normal turgor, no rashes or lesions noted. Course - Re-evaluation Re-evalutation: 05/25/17 20:08 Presentation is most consistent with an uncomplicated sickle cell pain crisis. Patient has no evidence of an aplastic crisis on labs. Vitals and history are not consistent with acute chest syndrome. Vitals have remained within normal limits here in the emergency department. Patient's pain has been able to be controlled using IV analgesia. At this time will discharge with return precautions and follow-up recommendations. Verbal discharge instructions given a the bedside and opportunity for questions given. Medication warnings reviewed. Patient is in agreement with this plan and has verbalized understanding of return precautions and the need for primary care follow-up in the next 24-72 hours. - Vital Signs Vital signs: Temp Pulse Resp BP Pulse Ox 98.1 F 88 18 99/58 L 100 05/25/17 23:38 05/25/17 19:07 05/25/17 23:37 05/25/17 23:37 05/25/17 23:37 - Laboratory Result Diagrams: 05/25/17 21:06 05/25/17 21:06 Laboratory results interpreted by me: 05/25/17 05/25/17 21:06 21:06 WBC 15.3 H RBC 2.72 L Hgb 9.6 L Hct 26.6 L MCV 98 H D MCH 35.5 H MCHC 36.2 H RDW 22.3 H Absolute Lymphocytes 5.6 H Retic Count (auto) 9.03 H Absolute Retic 0.245 H BUN 5 L Discharge - Discharge Clinical Impression: Vaso-occlusive sickle cell crisis, Sickle cell pain crisis Condition: Good Disposition: HOME, SELF-CARE Additional Instructions: You were seen today for sickle cell pain crisis. 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 Returning to the ED if you have worsening pain, fever greater than 100.4, shortness of breath, persistent vomiting, or any other symptoms that are concerning to you.
[2017-05-25] MEDS: HYDROMORPHONE HCL INJ/PF 2 MG/ML AMPULE IV PRN ×3 (20:35→22:40)
[2017-05-25 21:41] LABS: ABSOLUTE BASOPHILS # (AUTO) 0.1 10^3/uL (0.0-0.2); ABSOLUTE EOSINOPHILS # (AUTO) 0.6 10^3/uL (0.0-0.6); ABSOLUTE LYMPHOCYTES (AUTO) 5.6 10^3/uL (0.5-4.7); ABSOLUTE MONOCYTES (AUTO) 1.2 10^3/uL (0.1-1.4); ABSOLUTE NEUT (AUTO) 7.9 10^3/uL (1.7-8.2); ABSOLUTE RETICS # 0.245 10^6/uL (0.028-0.122); BASOPHILS % (AUTO) 0.5 % (0-2); EOSINOPHILS % (AUTO) 4.2 % (0-6); HEMATOCRIT 26.6 % (36.0-47.0); HEMOGLOBIN 9.6 g/dL (12.0-15.5); LYMPHOCYTES % (AUTO) 36.3 % (13-45); MEAN CORPUSCULAR HEMOGLOBIN 35.5 pg (27.0-33.4); MEAN CORPUSCULAR HGB CONC 36.2 g/dL (32.0-36.0); MONOCYTES % (AUTO) 7.6 % (3-13); PLATELET COUNT 412 10^3/uL (150-450); RED BLOOD COUNT 2.72 10^6/uL (3.72-5.28); RED CELL DISTRIBUTION WIDTH 22.3 % (11.5-14.0); RETICULOCYTE COUNT (AUTO) 9.03 % (0.66-2.85); SEGMENTED NEUTROPHILS % (AUTO) 51.4 % (42-78); TOTAL CELLS COUNTED % (AUTO) 100 %; WHITE BLOOD COUNT 15.3 10^3/uL (4.0-10.5)
[2017-05-25 21:42] LABS: ANION GAP 10 (5-19); BLOOD UREA NITROGEN 5 mg/dL (7-20); CALCIUM 9.3 mg/dL (8.4-10.2); CARBON DIOXIDE 27 mmol/L (22-30); CHLORIDE 107 mmol/L (98-107); GLUCOSE 93 mg/dL (75-110); POTASSIUM 4.2 mmol/L (3.6-5.0); SODIUM 143.8 mmol/L (137-145)
[2017-05-25 21:52] LABS: STOMATOCYTES 1+; TARGET CELLS 1+; TEAR DROP CELLS SLIGHT
[2017-05-25 21:53] LABS: ACANTHOCYTES SLIGHT; OVALOCYTES SLIGHT; PLATELET COMMENT ADEQUATE; POLYCHROMASIA 1+
[2017-05-25 21:54] LABS: ANISOCYTOSIS 3+; POIKILOCYTOSIS 2+
[2017-05-25 21:55] LABS: MEAN CORPUSCULAR VOLUME 98 fl (80-97)
[2017-05-25 23:55] VITALS: BP 99/58
== END 2017-05-25 23:56 | disposition home or self-care (01) ==
LOC: ER 19:02
DX: D57.819 Other sickle-cell disorders with crisis, unspecified (principal); M79.604 Pain in right leg
CPT/HCPCS: 36591; 99284; 36415; 85025; 85045; 80048; J1170

== ENCOUNTER 2017-05-26 03:41 | Observation (INO) | payer MEDICAID ==
[2017-05-26] MEDS ORDERED: NORMAL SALINE 1000 ML 1,000 ML IV ONE ×2 (03:48→05:26)
[2017-05-26] MEDS ORDERED: HYDROMORPHONE HCL INJ/PF 2 MG/ML AMPULE IV ONE ×2 (03:53→06:13)
[2017-05-26] MEDS ORDERED: ONDANSETRON HCL INJ/PF 4 MG/2 ML SDV IV ONE (03:53)
[2017-05-26] MEDS ORDERED: DIPHENHYDRAMINE HCL 50 MG/ML VIAL IV ONE (03:53)
--- NOTE | 2017-05-26 03:57 | ER Document Report ---
ED General - General Chief Complaint: Leg Pain Stated Complaint: BODY PAIN Time Seen by Provider: 05/26/17 03:53 Notes: Patient is a 22-year-old female with a history of sickle cell disease who presents with complaint of severe right leg pain. She was seen here earlier tonight for the same pain. She was feeling some better but shortly after getting home her pain started to increase. She has oral Dilaudid which she took at home and was not helping the pain and the pain is continued to worsen and therefore she is return to ER. No fevers. Some vomiting due to the pain. No abdominal pain. No chest pain. No difficulty breathing. She does have previous history of acute chest syndrome. She does have a history of cholecystectomy. She still has her spleen. She says the pain is only in her right leg. She has had similar pains with previous sickle cell crisis. Her compliance professional is Dr. Baum. TRAVEL OUTSIDE OF THE [place] IN LAST 30 DAYS: No - Related Data Allergies/Adverse Reactions: morphine Adverse Reaction (Severe, Verified 05/25/17 19:02) RASH,SWELLING jacob peppers Adverse Reaction (Severe, Uncoded 05/25/17 19:02) throat closes Past Medical History - Social History Smoking Status: Never Smoker Frequency of alcohol use: None Drug Abuse: None Family History: Hypertension, Other - Sickle cell. denies: Arthritis, CAD, COPD , CVA, DM, Hyperlipidemia, Malignancy, Thyroid Disfunction - Past Medical History Cardiac Medical History: Reports: Hx DVT - RUE s/p port placement Denies: Hx Coronary Artery Disease, Hx Heart Attack, Hx Hypertension, Hx Pulmonary Embolism Pulmonary Medical History: Reports: Hx Pneumonia Denies: Hx Asthma, Hx Bronchitis, Hx COPD Neurological Medical History: Denies: Hx Cerebrovascular Accident, Hx Migraine, Hx Seizures Renal/ Medical History: Denies: Hx Peritoneal Dialysis Musculoskeltal Medical History: Denies Hx Arthritis, Reports Hx Musculoskeletal Trauma Psychiatric Medical History: Reports: Hx Anxiety, Hx Depression Past Surgical History: Reports: Hx Cholecystectomy - 06/28/2015, Hx Vascular Surgery - port put in December, - Immunizations Immunizations up to date: Yes Hx Diphtheria, Pertussis, Tetanus Vaccination: Yes Review of Systems - Review of Systems Notes: My Normal Review Basic REVIEW OF SYSTEMS: CONSTITUTIONAL : Denies fever, chills, or sweats. Denies recent illness. EENT: Denies eye, ear, throat, or mouth pain or symptoms. Denies nasal or sinus congestion. CARDIOVASCULAR: Denies chest pain. RESPIRATORY: Denies cough, cold, or chest congestion. Denies shortness of breath, difficulty breathing, or wheezing. GASTROINTESTINAL: Denies abdominal pain. Denies nausea, vomiting, or diarrhea. Denies constipation. Last BM: MUSCULOSKELETAL: Pain right lower extremity. SKIN: Denies rash or skin lesions. HEMATOLOGIC : Sickle cell disease. NEUROLOGICAL: Denies altered mental status or loss of consciousness. Denies headache. Denies weakness or paralysis or loss of use of either side. Denies problems with gait or speech. Denies sensory or motor loss. ALL OTHER SYSTEMS REVIEWED AND NEGATIVE. Physical Exam - Vital signs Vitals: Temp Pulse Resp BP Pulse Ox 97.8 F 105 H 20 138/83 H 95 05/26/17 03:45 05/26/17 03:45 05/26/17 03:45 05/26/17 03:45 05/26/17 03:45 - Notes Notes: General Appearance: Well nourished, alert, cooperative, no acute distress, moderate to severe Obvious discomfort. She is very tearful. Vitals: reviewed, See vital signs table. Head: no swelling or tenderness to the head Eyes: PERRL, EOMI, Conjuctiva clear Mouth: No decreasd moisture Lungs: No wheezing, No rales, No rhonci, No accessory muscle use, good air exchange bilaterally. Heart: Normal rate, Regular rythm, No murmur, no rub Abdomen: Normal BS, soft, No rigidity, No abdominal tenderness, No guarding, no rebound, no abdominal masses, no organomegaly Extremities: strength 5/5 in all extremities, good pulses in all extremities, some pain with palpation over the right thigh. Significant edema to the right thigh. Patient is good distal pulses into both feet., no edema. Skin: warm, dry, appropriate color, no rash Neuro: speech clear, oriented x 3, normal affect, responds appropriately to questions. Course - Re-evaluation Re-evalutation: 05/26/17 06:13 I reevaluate the patient. She says she still having pain. I have ordered another dose of Dilaudid. She says that she does not have a primary care doctor that she follows with , her compliance professional, Susan, who agrees to admit the patient. Patient's vital signs are currently stable. She is not tachycardic or hypotensive. Her pain does seem to be improving that she is no longer crying and tearful however she still says that she has a lot of pain. Being that she failed outpatient therapy tonight to feel that it is appropriate to admit her for further treatment of her sickle cell pain crisis. She has no chest pain or shortness of breath and no fevers. No signs of acute chest syndrome. She has no abdominal pain. Dictation of this chart was performed using voice recognition software; therefore, there may be some unintended grammatical errors. - Vital Signs Vital signs: Temp Pulse Resp BP Pulse Ox 97.8 F 105 H 14 101/57 L 98 05/26/17 03:45 05/26/17 03:45 05/26/17 05:47 05/26/17 05:47 05/26/17 05:47 - Laboratory Result Diagrams: 05/26/17 04:55 05/26/17 04:55 Laboratory results interpreted by me: 05/26/17 05/26/17 04:55 04:55 WBC 14.4 H RBC 2.64 L Hgb 9.3 L Hct 26.0 L MCV 98 H MCH 35.2 H RDW 22.3 H Seg Neutrophils % 78.3 H Lymphocytes % 12.1 L Absolute Neutrophils 11.3 H Retic Count (auto) 8.76 H Absolute Retic 0.232 H Sodium 146.4 H Potassium 3.4 L BUN 5 L Creatinine 0.49 L Total Bilirubin 4.0 H Discharge - Discharge Clinical Impression: Sickle cell pain crisis Condition: Stable Disposition: ADMITTED OBSERVATION Admitting Provider: Hospitalist Unit Admitted: Telemetry
[2017-05-26 05:27] LABS: ABSOLUTE BASOPHILS # (AUTO) 0.2 10^3/uL (0.0-0.2); ABSOLUTE EOSINOPHILS # (AUTO) 0.1 10^3/uL (0.0-0.6); ABSOLUTE LYMPHOCYTES (AUTO) 1.7 10^3/uL (0.5-4.7); ABSOLUTE MONOCYTES (AUTO) 1.1 10^3/uL (0.1-1.4); ABSOLUTE NEUT (AUTO) 11.3 10^3/uL (1.7-8.2); ABSOLUTE RETICS # 0.232 10^6/uL (0.028-0.122); BASOPHILS % (AUTO) 1.1 % (0-2); HEMOGLOBIN 9.3 g/dL (12.0-15.5); LYMPHOCYTES % (AUTO) 12.1 % (13-45); MEAN CORPUSCULAR HEMOGLOBIN 35.2 pg (27.0-33.4); MEAN CORPUSCULAR HGB CONC 35.8 g/dL (32.0-36.0); MEAN CORPUSCULAR VOLUME 98 fl (80-97); MONOCYTES % (AUTO) 7.5 % (3-13); PLATELET COUNT 382 10^3/uL (150-450); RED BLOOD COUNT 2.64 10^6/uL (3.72-5.28); RED CELL DISTRIBUTION WIDTH 22.3 % (11.5-14.0); RETICULOCYTE COUNT (AUTO) 8.76 % (0.66-2.85); SEGMENTED NEUTROPHILS % (AUTO) 78.3 % (42-78); TOTAL CELLS COUNTED % (AUTO) 100 %; WHITE BLOOD COUNT 14.4 10^3/uL (4.0-10.5)
[2017-05-26 05:29] LABS: ALANINE AMINOTRANSFERASE 17 U/L (9-52); ALKALINE PHOSPHATASE 55 U/L (38-126); ANION GAP 12 (5-19); ASPARTATE AMINO TRANSFERASE 20 U/L (14-36); BILIRUBIN,DIRECT 0.1 mg/dL (0.0-0.4); BLOOD UREA NITROGEN 5 mg/dL (7-20); CALCIUM 9.1 mg/dL (8.4-10.2); CARBON DIOXIDE 27 mmol/L (22-30); CHLORIDE 107 mmol/L (98-107); GLUCOSE 103 mg/dL (75-110); POTASSIUM 3.4 mmol/L (3.6-5.0); SODIUM 146.4 mmol/L (137-145); TOTAL PROTEIN 6.5 g/dL (6.3-8.2)
[2017-05-26 05:58] LABS: ACANTHOCYTES SLIGHT; ANISOCYTOSIS 3+; POLYCHROMASIA SLIGHT
[2017-05-26 05:59] LABS: BURR CELLS SLIGHT; OVALOCYTES 1+; POIKILOCYTOSIS 3+; SICKLE RED CELLS SLIGHT; STOMATOCYTES 1+; TEAR DROP CELLS 1+
[2017-05-26 06:00] LABS: PLATELET COMMENT ADEQUATE
[2017-05-26] MEDS ORDERED: PROMETHAZINE HCL INJ 25 MG/1 ML VIAL IV PRN (06:14)
[2017-05-26] MEDS ORDERED: DOCUSATE SODIUM 100 MG CAPSULE PO PRN ×2 (06:14→07:00)
[2017-05-26] MEDS ORDERED: ACETAMINOPHEN 325 MG TABLET PO PRN (06:14)
[2017-05-26] MEDS ORDERED: HYDROMORPHONE HCL INJ/PF 2 MG/ML AMPULE IV PRN ×2 (06:19→13:51)
[2017-05-26 06:20] LABS: APPEARANCE,URINE CLEAR; BILIRUBIN,URINE NEGATIVE (NEGATIVE); COLOR,URINE YELLOW; GLUCOSE, URINE NEGATIVE (NEGATIVE); KETONES,URINE NEGATIVE (NEGATIVE); LEUKOCYTE ESTERASE,URINE NEGATIVE (NEGATIVE); NITRITE,URINE NEGATIVE (NEGATIVE); PROTEIN,URINE NEGATIVE (NEGATIVE); URINE SPECIFIC GRAVITY 1.011
[2017-05-26] MEDS ORDERED: HYDROMORPHONE HCL 2 MG TABLET PO SCH ×2 (06:30→12:00)
--- NOTE | 2017-05-26 07:01 | PDOC H&P ---
History of Present Illness Patient complains of: Persistent right-sided chest, right leg and lower back pain since yesterday. History of Present Illness: CASSANDRA MIDDLETON is a 22 year old female history of sickle cell disease and acute chest syndrome was admitted with above-mentioned complaints. She is currently sleepy but arousable after receiving IV Benadryl and IV Dilaudid in the ED, so most of the history was obtained from the ED physician and notes. According to the ED note, the patient was complaining of severe right leg pain. She was seen in the ED last night and was discharged home after her pain became more manageable. However, shortly after getting home her pain got worse so she decided to come back to the hospital. The patient usually takes 4 mg oral Dilaudid every 4 hours as needed. She complained to me of having right- sided chest pain but no shortness of breath, fever or chills or any cough. She apparently was nauseous and vomited once while in the ED but she denied any abdominal pain. In the ED, she was hemodynamically stable. Her WBC was 14.4 with hemoglobin of 9.3. Her reticulocyte count was 8.76. Her UA was negative. She received 2 mg IV Dilaudid 1 and 25 mg of IV Benadryl 1. Past Medical History Medical History: Other - Per previous records. Cardiac Medical History: Reports: DVT - RUE s/p port placement Denies: Coronary Artery Disease, Myocardial Infarction, Hypertension, Pulmonary Embolism Pulmonary Medical History: Reports: Pneumonia Denies: Asthma, Bronchitis, Chronic Obstructive Pulmonary Disease (COPD) Neurological Medical History: Denies: Migraine, Seizures Musculoskeltal Medical History: Denies: Arthritis Psychiatric Medical History: Reports: Depression Hematology: Reports: Anemia, Sickle Cell Disease, Other - acute chest sydroma. Past Surgical History Past Surgical History: Reports: Cholecystectomy - 06/28/2015, Vascular Surgery - port put in December, Social History Smoking Status: Never Smoker Frequency of Alcohol Use: None Hx Recreational Drug Use: No Drugs: None Hx Prescription Drug Abuse: No Family History Family History: Hypertension, Other - Sickle cell. denies: Arthritis, CAD, COPD , CVA, DM, Hyperlipidemia, Malignancy, Thyroid Disfunction Parental Family History Reviewed: No Children Family History Reviewed: No Sibling(s) Family History Reviewed.: No - His records. The patient is sleepy. Medication/Allergy Home Medications: Hydroxyurea [Hydrea 500 mg Capsule] 500 mg PO BID 04/17/17 Rivaroxaban [Xarelto] 20 mg PO QHS 04/17/17 Folic Acid 1 mg PO DAILY 04/27/17 Hydromorphone HCl [Dilaudid 2 mg Tablet] 2 mg PO Q4HP PRN #20 tablet 04/28/17 Allergies/Adverse Reactions: morphine Adverse Reaction (Severe, Verified 05/25/17 19:02) RASH,SWELLING jacob peppers Adverse Reaction (Severe, Uncoded 05/25/17 19:02) throat closes Review of Systems ROS unobtainable: Other - Unable to obtain an accurate review of systems since the patient is sleepy after receiving IV Benadryl and Dilaudid Physical Exam Vital Signs: Temp Pulse Resp BP Pulse Ox 97.8 F 105 H 14 101/57 L 98 05/26/17 03:45 05/26/17 03:45 05/26/17 05:47 05/26/17 05:47 05/26/17 05:47 Intake & Output 05/24/17 05/25/17 05/26/17 06:59 06:59 06:59 Weight 58.1 kg General appearance: PRESENT: no acute distress, well-developed Head exam: PRESENT: atraumatic, normocephalic Eye exam: PRESENT: conjunctiva pink, PERRLA. ABSENT: scleral icterus Neck exam: PRESENT: full ROM Respiratory exam: PRESENT: decreased breath sounds. ABSENT: rales, rhonchi, wheezes Cardiovascular exam: PRESENT: RRR - S1 S2 normal. Pulses: PRESENT: normal dorsalis pedis pul Vascular exam: PRESENT: normal capillary refill GI/Abdominal exam: PRESENT: normal bowel sounds, soft. ABSENT: distended, rebound, tenderness Rectal exam: PRESENT: deferred Extremities exam: PRESENT: full ROM. ABSENT: pedal edema Neurological exam: PRESENT: other - Sleepy but arousable. Skin exam: PRESENT: dry, intact, warm. ABSENT: cyanosis, rash Results Laboratory Results: 05/26/17 04:55 05/26/17 04:55 05/26/17 05/26/17 04:55 04:55 WBC 14.4 H RBC 2.64 L Hgb 9.3 L Hct 26.0 L MCV 98 H MCH 35.2 H MCHC 35.8 RDW 22.3 H Plt Count 382 Seg Neutrophils % 78.3 H Lymphocytes % 12.1 L Monocytes % 7.5 Eosinophils % 1.0 Basophils % 1.1 Absolute Neutrophils 11.3 H Absolute Lymphocytes 1.7 Absolute Monocytes 1.1 Absolute Eosinophils 0.1 Absolute Basophils 0.2 Retic Count (auto) 8.76 H Absolute Retic 0.232 H Sodium 146.4 H Potassium 3.4 L Chloride 107 Carbon Dioxide 27 Anion Gap 12 BUN 5 L Creatinine 0.49 L Est GFR ( Amer) > 60 Est GFR (Non-Af Amer) > 60 Glucose 103 Calcium 9.1 Total Bilirubin 4.0 H AST 20 ALT 17 Alkaline Phosphatase 55 Total Protein 6.5 Albumin 4.0 Assessment & Plan - Diagnosis (1) Sickle cell pain crisis Is this a current diagnosis for this admission?: Yes Plan: Will continue scheduled Dilaudid 4 mg Q6h in addition to IV Dilaudid as needed. The patient has history of acute chest syndrome and cholecystectomy. she follows with Dr. Baum (hematology). (2) Right-sided chest pain Is this a current diagnosis for this admission?: Yes Plan: musculoskeletal/pleuritic. we will follow up CXR. - Time Time Spent: 30 to 50 Minutes Anticipated discharge: Home
[2017-05-26] MEDS ORDERED: POTASSIUM CHLORIDE 10 MEQ TABLET.SA PO ONE (07:37)
--- NOTE | 2017-05-26 08:30 | RADIOLOGY REPORT (SQ) ---
EXAM DESCRIPTION: CHEST PA/LAT COMPLETED DATE/TIME: 05/26/2017 7:52 am REASON FOR STUDY: Sickle cell crisis rule out acute chest syndrome COMPARISON: 05/14/2017 NUMBER OF VIEWS: Two view. TECHNIQUE: Frontal and lateral radiographic views of the chest acquired. LIMITATIONS: None FINDINGS: LUNGS AND PLEURA: No opacities, masses or pneumothorax. No pleural effusion. MEDIASTINUM AND HILAR STRUCTURES: No masses or contour abnormalities. HEART AND VASCULATURE: Heart normal size. No evidence for failure. BONY STRUCTURES: Biconcave appearance to the vertebral bodies most likely related to sickle cell dis ease when correlated clinical information. HARDWARE: Central line on the right with the tip projected over the superior vena cava. OTHER: No other significant finding. IMPRESSION: No active cardiopulmonary disease. Biconcave vertebral bodies most likely associated wi th sickle cell disease. No interval change since the recent chest x-ray TECHNICAL DOCUMENTATION: JOB ID: [id number] [employer]- All Rights Reserved Reading location - IP/workstation name: [email or web address]
[2017-05-26] MEDS: NORMAL SALINE 1000 ML 1,000 ML IV PRN ×3 (10:37→23:22)
--- NOTE | 2017-05-26 13:31 | PDOC PROGRESS REPORT ---
Subjective Progress Note for:: 05/26/17 Subjective:: The patient is a 22-year-old female who presents with sickle cell pain crisis which failed outpatient treatment. Reason For Visit: SICKLE CELL CRISIS Physical Exam Vital Signs: Temp Pulse Resp BP Pulse Ox 97.6 F 71 16 109/72 100 05/26/17 11:22 05/26/17 11:22 05/26/17 11:22 05/26/17 11:22 05/26/17 11:22 Intake & Output 05/25/17 05/26/17 05/27/17 06:59 06:59 06:59 Weight 58 kg Additional comments: The patient is a petite, black female. She does appear to be in moderate pain. Her cognition and mentation are appropriate. She is able to give me a full and competent medical history. Her facial appearance is somewhat cushingoid otherwise unremarkable. Her lungs are noted to be clear to auscultation bilaterally. Her cardiac exam is normal. She has a regular rate and rhythm without murmurs, gallops or rubs. The abdomen is soft and flat. Bowel sounds are present in all 4 quadrants. She does not have guarding or rebound noted and there are no hernias or masses present. Her right lower extremity is exquisitely tender to touch, however, there are no obvious deformities. There is no edema. The skin exam is clean, warm, dry and intact. Results Impressions: Chest X-Ray 05/26/17 00:00 IMPRESSION: No active cardiopulmonary disease. Biconcave vertebral bodies most likely associated with sickle cell disease. No interval change since the recent chest x-ray Assessment & Plan - Diagnosis (1) Sickle cell pain crisis Is this a current diagnosis for this admission?: Yes Plan: Continue with current pain management. Dr. Baum of oncology has been consulted. Currently, we have not identified an etiology of the crisis, E. G. Infection. (2) Right-sided chest pain Is this a current diagnosis for this admission?: Yes Plan: The patient's admission chest x-ray is normal. She is oxygenating well. Currently, there is no evidence of sickle cell chest crisis. - Time Time Spent with patient: 15-24 minutes - Inpatient Certification Medical Necessity: Need for Pain Control, Risk of Complication if Not Cared For in Hospital
[2017-05-26] MEDS ORDERED: ONDANSETRON HCL INJ/PF 4 MG/2 ML SDV IV PRN (13:51)
[2017-05-26] MEDS ORDERED: POLYETHYLENE GLYCOL 3350 POWDER 17 GM/1 PACKET PO PRN (13:52)
[2017-05-26] MEDS: DIPHENHYDRAMINE HCL 25 MG CAPSULE PO PRN (14:53)
[2017-05-26] MEDS: SENNOSIDES/DOCUSATE 8.6-50 MG 1 EACH TABLET PO SCH (18:20)
[2017-05-26] MEDS: HYDROMORPHONE HCL INJ/PF 2 MG/ML AMPULE IV PRN ×2 (18:36→23:22)
[2017-05-27] MEDS: HYDROMORPHONE HCL INJ/PF 2 MG/ML AMPULE IV PRN ×8 (03:57→23:39)
--- NOTE | 2017-05-27 08:08 | PDOC CONSULTATION ---
Consultation Consult Date: 05/27/17 Attending physician:: SYDNEE CHU Consult reason:: sickle cell pain crisis, anemia History of Present Illness Admission Date/PCP: 05/26/17 06:19 Patient complains of: diffuse body pain, weakness, chest pain History of Present Illness: 22 y/o F w/ known hx of sickle cell dx here with pain crisis, started about 2 weeks ago, we attempted outpt treatment with IVF outpt and oral pain control w/ dilaudid, she was taking 4mg q 4 hours w/out relief and was admitted to [facility] for pain control, hb 9, retic 8, she is having pain in legs, chest, back. I gave orders yesterday for IV dilaudid, antiemetics, bowel regimen, she is in considerable pain this am. Past Medical History Cardiac Medical History: Reports: DVT - RUE s/p port placement Denies: Congestive Heart Failure, Coronary Artery Disease, Myocardial Infarction, Hypertension, Pulmonary Embolism Pulmonary Medical History: Reports: Bronchitis - once in past per patient, Pneumonia - history in past per patient Denies: Asthma, Chronic Obstructive Pulmonary Disease (COPD), Tuberculosis EENT Medical History: Reports: Other - acute chest sydroma. Neurological Medical History: Denies: Migraine, Seizures Renal/ Medical History: Denies: End Stage Renal Disease GI Medical History: Denies: Cirrhosis, Gastroesophageal Reflux Disease Musculoskeltal Medical History: Denies: Arthritis Psychiatric Medical History: Reports: Depression - anxiety voiced with chronic illness Denies: Bipolar Disorder Hematology: Reports: Anemia - Sickle cell, Sickle Cell Disease, Other - acute chest sydroma. Denies: Bleeding Tendencies Past Surgical History Past Surgical History: Reports: Cholecystectomy - 06/28/2015, Vascular Surgery - port put in December, Social History Information Source: Patient Smoking Status: Former Smoker Frequency of Alcohol Use: None Hx Recreational Drug Use: No Drugs: None Hx Prescription Drug Abuse: No - Advance Directive Resuscitation Status: Full Code Family History Family History: Hypertension, Other - Sickle cell. denies: Arthritis, CAD, COPD , CVA, DM, Hyperlipidemia, Malignancy, Thyroid Disfunction Parental Family History Reviewed: Yes Children Family History Reviewed: Yes Sibling(s) Family History Reviewed.: Yes Medication/Allergy Home Medications: Aripiprazole [Abilify 10 mg Tablet] 10 mg PO QHS 05/26/17 Escitalopram Oxalate [Lexapro 10 mg Tablet] 10 mg PO QHS 05/26/17 Hydromorphone HCl [Dilaudid] 4 mg PO Q6HP PRN 05/26/17 Hydroxyurea [Hydrea 500 Mg Capsule] 500 mg PO BID 05/26/17 Hydroxyzine Pamoate [Vistaril 25 mg Capsule] 25 mg PO TID 05/26/17 Levothyroxine Sodium [Synthroid] 25 mcg PO Q6AM 05/26/17 Rivaroxaban [Xarelto] 20 mg PO DAILY 05/26/17 Zolpidem Tartrate [Ambien] 10 mg PO QHS 05/26/17 Allergies/Adverse Reactions: morphine Adverse Reaction (Severe, Verified 05/25/17 19:02) RASH,SWELLING jacob peppers Adverse Reaction (Severe, Uncoded 05/25/17 19:02) throat closes Review of Systems Constitutional: PRESENT: weakness Cardiovascular: PRESENT: chest pain, dyspnea on exertion Gastrointestinal: PRESENT: nausea Musculoskeletal: PRESENT: back pain Neurological: ABSENT: abnormal gait, abnormal speech, confusion, dizziness, focal weakness, syncope Physical Exam Vital Signs: Temp Pulse Resp BP Pulse Ox 98.2 F 89 18 102/51 L 97 05/27/17 03:50 05/27/17 03:50 05/27/17 03:50 05/27/17 03:50 05/27/17 03:50 Intake & Output 05/26/17 05/27/17 05/28/17 06:59 06:59 06:59 Output Total 2350 Balance -2350 Weight 64.8 kg General appearance: PRESENT: mild distress Mouth exam: PRESENT: dry mucosa Respiratory exam: PRESENT: clear to auscultation samaria. ABSENT: rales, rhonchi, wheezes Cardiovascular exam: PRESENT: RRR. ABSENT: diastolic murmur, rubs, systolic murmur GI/Abdominal exam: PRESENT: normal bowel sounds, soft. ABSENT: distended, guarding, mass, organolmegaly, rebound, tenderness Rectal exam: PRESENT: deferred Neurological exam: PRESENT: alert, awake, oriented to person, oriented to place , oriented to time, oriented to situation, CN II-XII grossly intact. ABSENT: motor sensory deficit Results Impressions: Chest X-Ray 05/26/17 00:00 IMPRESSION: No active cardiopulmonary disease. Biconcave vertebral bodies most likely associated with sickle cell disease. No interval change since the recent chest x-ray Status: Image reviewed by me Assessment & Plan - Diagnosis (1) Sickle cell pain crisis Is this a current diagnosis for this admission?: Yes Plan: SS pain crisis, increase dilaudid to 1.5mg IV q 2 hours, cont antiemetics, con' t bowel regimen, Kpad for comfort, add folic acid daily. 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 (3) DVT (deep venous thrombosis) Qualifiers: DVT location: lower extremity Chronicity: chronic Laterality: right Is this a current diagnosis for this admission?: Yes Plan: DVT, on lifelong xarelto, pt is hypercoag 2nd to SS dx, restarted xarelto here. - Time Time Spent: Greater than 70 Minutes - Inpatient Certification Based on my medical assessment, after consideration of the patient's comorbidities, presenting symptoms, or acuity I expect that the services needed warrant INPATIENT care.: Yes I certify that my determination is in accordance with my understanding of Medicare's requirements for reasonable and necessary INPATIENT services [42 CFR 412.3e].: Yes Medical Necessity: Need For IV Fluids, Need for Pain Control, Risk of Complication if Not Cared For in Hospital
--- NOTE | 2017-05-27 08:35 | PDOC PROGRESS REPORT ---
Subjective Progress Note for:: 05/27/17 Subjective:: Patient is seen on rounds. She is resting in bed. She denies any chest pain, shortness of breath or dyspnea at rest. She denies any nausea, vomiting or abdominal pain. She is complaining of right lower leg pain and back pain. Dr Baum has adjusted her prn analgesics. Remaining review of systems are negative Reason For Visit: SICKLE CELL CRISIS Physical Exam Vital Signs: Temp Pulse Resp BP Pulse Ox 98.2 F 89 18 102/51 L 97 05/27/17 03:50 05/27/17 03:50 05/27/17 03:50 05/27/17 03:50 05/27/17 03:50 Intake & Output 05/26/17 05/27/17 05/28/17 06:59 06:59 06:59 Output Total 2350 Balance -2350 Weight 64.8 kg General appearance: PRESENT: no acute distress, well-developed, well-nourished Head exam: PRESENT: atraumatic, normocephalic Eye exam: PRESENT: conjunctiva pink, EOMI, PERRLA. ABSENT: scleral icterus Ear exam: PRESENT: normal external ear exam Mouth exam: PRESENT: moist, tongue midline Neck exam: ABSENT: carotid bruit, JVD, lymphadenopathy, thyromegaly Respiratory exam: PRESENT: clear to auscultation samaria. ABSENT: rales, rhonchi, wheezes Cardiovascular exam: PRESENT: RRR. ABSENT: diastolic murmur, rubs, systolic murmur Pulses: PRESENT: normal dorsalis pedis pul Vascular exam: PRESENT: normal capillary refill GI/Abdominal exam: PRESENT: normal bowel sounds, soft. ABSENT: distended, guarding, mass, organolmegaly, rebound, tenderness Rectal exam: PRESENT: deferred Extremities exam: PRESENT: full ROM. ABSENT: calf tenderness, clubbing, pedal edema Musculoskeletal exam: PRESENT: ambulatory, full ROM, tenderness - right anterior lower extremity Neurological exam: PRESENT: alert, awake, oriented to person, oriented to place , oriented to time, oriented to situation, CN II-XII grossly intact. ABSENT: motor sensory deficit Psychiatric exam: PRESENT: appropriate affect, normal mood. ABSENT: homicidal ideation, suicidal ideation Skin exam: PRESENT: dry, intact, warm. ABSENT: cyanosis, rash Results Impressions: Chest X-Ray 05/26/17 00:00 IMPRESSION: No active cardiopulmonary disease. Biconcave vertebral bodies most likely associated with sickle cell disease. No interval change since the recent chest x-ray Assessment & Plan - Diagnosis (1) Sickle cell pain crisis Is this a current diagnosis for this admission?: Yes Plan: Pain management per her director clinical research. 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 Transfuse for hgb <8.0 (3) Back pain Qualifiers: Back pain location: low back pain Chronicity: acute Back pain laterality : bilateral Sciatica presence: without sciatica Qualified Code(s): M54.5 - Low back pain Plan: Prn analgesics (4) DVT (deep venous thrombosis) Qualifiers: DVT location: lower extremity Chronicity: chronic Laterality: right Is this a current diagnosis for this admission?: Yes Plan: Restart xarelto (5) Intractable pain Is this a current diagnosis for this admission?: Yes Plan: Per hematology (6) Opioid dependence Qualifiers: Substance use status: uncomplicated Qualified Code(s): F11.20 - Opioid dependence, uncomplicated Is this a current diagnosis for this admission?: Yes Plan: PRN analgesics (7) Right leg pain Is this a current diagnosis for this admission?: Yes Plan: PRN analgesics - Time Time Spent with patient: 25-34 minutes Total Critical Time (Minutes): 15 Medications reviewed and adjusted accordingly: Yes Anticipated discharge: Home Within: within 48 hours
[2017-05-27] MEDS ORDERED: ALTEPLASE INJ 2 MG VIAL (CATH CLEARANCE) IV ONE (09:00)
[2017-05-27] MEDS: RIVAROXABAN 10 MG TABLET PO SCH (09:47)
[2017-05-27] MEDS: FOLIC ACID 1 MG TABLET PO SCH (09:48)
[2017-05-27] MEDS: SENNOSIDES/DOCUSATE 8.6-50 MG 1 EACH TABLET PO SCH ×2 (09:48→17:58)
[2017-05-27 12:49] LABS: HEMATOCRIT 25.6 % (36.0-47.0); HEMOGLOBIN 9.4 g/dL (12.0-15.5); MEAN CORPUSCULAR HEMOGLOBIN 36.3 pg (27.0-33.4); MEAN CORPUSCULAR HGB CONC 36.5 g/dL (32.0-36.0); MEAN CORPUSCULAR VOLUME 99 fl (80-97); PLATELET COUNT 344 10^3/uL (150-450); RED BLOOD COUNT 2.58 10^6/uL (3.72-5.28); RED CELL DISTRIBUTION WIDTH 22.6 % (11.5-14.0); WHITE BLOOD COUNT 10.9 10^3/uL (4.0-10.5)
[2017-05-27 13:02] LABS: ANION GAP 5 (5-19); BLOOD UREA NITROGEN 2 mg/dL (7-20); CARBON DIOXIDE 27 mmol/L (22-30); CHLORIDE 109 mmol/L (98-107); GLUCOSE 93 mg/dL (75-110); POTASSIUM 4.2 mmol/L (3.6-5.0)
[2017-05-27 13:25] LABS: ABSOLUTE LYMPHOCYTES# (MANUAL) 3.9 10^3/uL (0.5-4.7); ABSOLUTE MONOCYTES # (MANUAL) 0.3 10^3/uL (0.1-1.4); ABSOLUTE NEUTROPHILS# (MANUAL) 5.8 10^3/uL (1.7-8.2); BASOPHILS % (MANUAL) 2 % (0-2); EOSINOPHILS % (MANUAL) 6 % (0-6); HYPERSEGMENTED NEUTROPHILS PRESENT; LYMPHOCYTES % (MANUAL) 35 % (13-45); MONOCYTES % (MANUAL) 3 % (3-13); NUCLEATED RED BLOOD CELLS 8 /100 WBC (0); OVALOCYTES 2+; POIKILOCYTOSIS 2+; POLYCHROMASIA 2+; SCHISTOCYTES 1+; SEGMENTED NEUTROPHILS % (MAN) 53 % (42-78); SICKLE RED CELLS SLIGHT; TARGET CELLS SLIGHT; TOTAL CELLS COUNTED 100; TOXIC GRANULATION 1+; TOXIC VACUOLATION PRESENT
[2017-05-27 13:26] LABS: HOWELL-JOLLY BODIES PRESENT; PLATELET COMMENT ADEQUATE
[2017-05-27] MEDS: DIPHENHYDRAMINE HCL 25 MG CAPSULE PO PRN (16:01)
[2017-05-27] MEDS: NORMAL SALINE 1000 ML 1,000 ML IV PRN (19:46)
[2017-05-28] MEDS: HYDROMORPHONE HCL INJ/PF 2 MG/ML AMPULE IV PRN ×8 (02:13→22:56)
[2017-05-28] MEDS: NORMAL SALINE 1000 ML 1,000 ML IV PRN ×2 (04:01→20:14)
--- NOTE | 2017-05-28 08:10 | PDOC PROGRESS REPORT ---
Subjective Progress Note for:: 05/28/17 Subjective:: Pain control appropriate, still needing the pain control q 2 hours Reason For Visit: SICKLE CELL CRISIS Physical Exam Vital Signs: Temp Pulse Resp BP Pulse Ox 98.1 F 69 16 112/69 99 05/28/17 04:00 05/28/17 04:00 05/28/17 04:00 05/28/17 04:00 05/27/17 23:33 Intake & Output 05/27/17 05/28/17 05/29/17 06:59 06:59 06:59 Output Total 2350 3475 Balance -2350 -3475 Weight 64.8 kg General appearance: PRESENT: no acute distress, well-developed, well-nourished Head exam: PRESENT: atraumatic, normocephalic Eye exam: PRESENT: conjunctiva pink, EOMI, PERRLA. ABSENT: scleral icterus Ear exam: PRESENT: normal external ear exam Mouth exam: PRESENT: moist, tongue midline Neck exam: ABSENT: carotid bruit, JVD, lymphadenopathy, thyromegaly Respiratory exam: PRESENT: clear to auscultation samaria. ABSENT: rales, rhonchi, wheezes Cardiovascular exam: PRESENT: RRR. ABSENT: diastolic murmur, rubs, systolic murmur Pulses: PRESENT: normal dorsalis pedis pul Vascular exam: PRESENT: normal capillary refill GI/Abdominal exam: PRESENT: normal bowel sounds, soft. ABSENT: distended, guarding, mass, organolmegaly, rebound, tenderness Rectal exam: PRESENT: deferred Extremities exam: PRESENT: full ROM. ABSENT: calf tenderness, clubbing, pedal edema Neurological exam: PRESENT: alert, awake, oriented to person, oriented to place , oriented to time, oriented to situation, CN II-XII grossly intact. ABSENT: motor sensory deficit Psychiatric exam: PRESENT: appropriate affect, normal mood. ABSENT: homicidal ideation, suicidal ideation Skin exam: PRESENT: dry, intact, warm. ABSENT: cyanosis, rash Results Laboratory Results: 05/27/17 12:33 05/27/17 12:33 05/27/17 05/27/17 12:33 12:33 WBC 10.9 H RBC 2.58 L Hgb 9.4 L Hct 25.6 L MCV 99 H MCH 36.3 H MCHC 36.5 H RDW 22.6 H Plt Count 344 Seg Neutrophils % Not Reportable Lymphocytes % Not Reportable Monocytes % Not Reportable Eosinophils % Not Reportable Basophils % Not Reportable Absolute Neutrophils Not Reportable Absolute Lymphocytes Not Reportable Absolute Monocytes Not Reportable Absolute Eosinophils Not Reportable Absolute Basophils Not Reportable Sodium 141.0 Potassium 4.2 Chloride 109 H Carbon Dioxide 27 Anion Gap 5 BUN 2 L Creatinine 0.54 Est GFR ( Amer) > 60 Est GFR (Non-Af Amer) > 60 Glucose 93 Calcium 9.0 Impressions: Chest X-Ray 05/26/17 00:00 IMPRESSION: No active cardiopulmonary disease. Biconcave vertebral bodies most likely associated with sickle cell disease. 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
[2017-05-28] MEDS: FOLIC ACID 1 MG TABLET PO SCH (10:22)
[2017-05-28] MEDS: SENNOSIDES/DOCUSATE 8.6-50 MG 1 EACH TABLET PO SCH ×2 (10:22→19:25)
[2017-05-28] MEDS: RIVAROXABAN 10 MG TABLET PO SCH (10:22)
--- NOTE | 2017-05-28 12:44 | PDOC PROGRESS REPORT ---
Subjective Progress Note for:: 05/28/17 Subjective:: Patient is seen on rounds. She is resting in bed. She denies any chest pain, shortness of breath or dyspnea at rest. She denies any nausea, vomiting or abdominal pain. She is complaining of right lower leg pain and back pain. Dr Baum has adjusted her prn analgesics. Remaining review of systems are negative Reason For Visit: SICKLE CELL CRISIS Physical Exam Vital Signs: Temp Pulse Resp BP Pulse Ox 98.1 F 94 15 100/63 97 05/28/17 12:33 05/28/17 12:33 05/28/17 12:33 05/28/17 12:33 05/28/17 12:33 Intake & Output 05/27/17 05/28/17 05/29/17 06:59 06:59 06:59 Output Total 2350 3475 Balance -2350 -3475 Weight 64.8 kg General appearance: PRESENT: no acute distress, well-developed, well-nourished Head exam: PRESENT: atraumatic, normocephalic Eye exam: PRESENT: conjunctiva pink, EOMI, PERRLA. ABSENT: scleral icterus Ear exam: PRESENT: normal external ear exam Mouth exam: PRESENT: moist, tongue midline Neck exam: ABSENT: carotid bruit, JVD, lymphadenopathy, thyromegaly Respiratory exam: PRESENT: clear to auscultation samaria. ABSENT: rales, rhonchi, wheezes Cardiovascular exam: PRESENT: RRR. ABSENT: diastolic murmur, rubs, systolic murmur Pulses: PRESENT: normal dorsalis pedis pul Vascular exam: PRESENT: normal capillary refill GI/Abdominal exam: PRESENT: normal bowel sounds, soft. ABSENT: distended, guarding, mass, organolmegaly, rebound, tenderness Extremities exam: PRESENT: full ROM. ABSENT: calf tenderness, clubbing, pedal edema Neurological exam: PRESENT: alert, awake, oriented to person, oriented to place , oriented to time, oriented to situation, CN II-XII grossly intact. ABSENT: motor sensory deficit Psychiatric exam: PRESENT: appropriate affect, normal mood. ABSENT: homicidal ideation, suicidal ideation Skin exam: PRESENT: dry, intact, warm. ABSENT: cyanosis, rash Results Laboratory Results: 05/27/17 12:33 05/27/17 12:33 05/27/17 05/27/17 12:33 12:33 WBC 10.9 H RBC 2.58 L Hgb 9.4 L Hct 25.6 L MCV 99 H MCH 36.3 H MCHC 36.5 H RDW 22.6 H Plt Count 344 Seg Neutrophils % Not Reportable Lymphocytes % Not Reportable Monocytes % Not Reportable Eosinophils % Not Reportable Basophils % Not Reportable Absolute Neutrophils Not Reportable Absolute Lymphocytes Not Reportable Absolute Monocytes Not Reportable Absolute Eosinophils Not Reportable Absolute Basophils Not Reportable Sodium 141.0 Potassium 4.2 Chloride 109 H Carbon Dioxide 27 Anion Gap 5 BUN 2 L Creatinine 0.54 Est GFR ( Amer) > 60 Est GFR (Non-Af Amer) > 60 Glucose 93 Calcium 9.0 Impressions: Chest X-Ray 05/26/17 00:00 IMPRESSION: No active cardiopulmonary disease. Biconcave vertebral bodies most likely associated with sickle cell disease. 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 Transfuse for hgb <8.0 (3) Back pain Qualifiers: Back pain location: low back pain Chronicity: acute Back pain laterality : bilateral Sciatica presence: without sciatica Qualified Code(s): M54.5 - Low back pain Plan: Prn analgesics (4) DVT (deep venous thrombosis) Qualifiers: DVT location: lower extremity Chronicity: chronic Laterality: right Is this a current diagnosis for this admission?: Yes Plan: Restart xarelto (5) Intractable pain Is this a current diagnosis for this admission?: Yes Plan: Per hematology (6) Opioid dependence Qualifiers: Substance use status: uncomplicated Qualified Code(s): F11.20 - Opioid dependence, uncomplicated Is this a current diagnosis for this admission?: Yes Plan: PRN analgesics (7) Right leg pain Is this a current diagnosis for this admission?: Yes Plan: PRN analgesics - Time Time Spent with patient: 25-34 minutes Total Critical Time (Minutes): 15 Medications reviewed and adjusted accordingly: Yes
[2017-05-28] MEDS: DIPHENHYDRAMINE HCL 25 MG CAPSULE PO PRN (19:31)
[2017-05-29] MEDS: HYDROMORPHONE HCL INJ/PF 2 MG/ML AMPULE IV PRN ×3 (02:01→08:52)
[2017-05-29] MEDS: NORMAL SALINE 1000 ML 1,000 ML IV PRN (04:58)
[2017-05-29] MEDS: FOLIC ACID 1 MG TABLET PO SCH (08:51)
[2017-05-29] MEDS: SENNOSIDES/DOCUSATE 8.6-50 MG 1 EACH TABLET PO SCH (08:51)
[2017-05-29] MEDS: RIVAROXABAN 10 MG TABLET PO SCH (08:52)
--- NOTE | 2017-05-29 09:11 | PDOC PROGRESS REPORT ---
Subjective Progress Note for:: 05/29/17 Subjective:: Doing better, pain control appropriate Reason For Visit: SICKLE CELL CRISIS Physical Exam Vital Signs: Temp Pulse Resp BP Pulse Ox 98.0 F 85 16 97/50 L 95 05/29/17 08:19 05/29/17 08:19 05/29/17 08:19 05/29/17 08:19 05/29/17 08:19 Intake & Output 05/28/17 05/29/17 05/30/17 06:59 06:59 06:59 Intake Total 1090 Output Total 2357 4708 Balance -1346 -3797 General appearance: PRESENT: no acute distress, well-developed, well-nourished Head exam: PRESENT: atraumatic, normocephalic Eye exam: PRESENT: conjunctiva pink, EOMI, PERRLA. ABSENT: scleral icterus Ear exam: PRESENT: normal external ear exam Mouth exam: PRESENT: moist, tongue midline Neck exam: ABSENT: carotid bruit, JVD, lymphadenopathy, thyromegaly Respiratory exam: PRESENT: clear to auscultation samaria. ABSENT: rales, rhonchi, wheezes Cardiovascular exam: PRESENT: RRR. ABSENT: diastolic murmur, rubs, systolic murmur Pulses: PRESENT: normal dorsalis pedis pul Vascular exam: PRESENT: normal capillary refill GI/Abdominal exam: PRESENT: normal bowel sounds, soft. ABSENT: distended, guarding, mass, organolmegaly, rebound, tenderness Rectal exam: PRESENT: deferred Extremities exam: PRESENT: full ROM. ABSENT: calf tenderness, clubbing, pedal edema Neurological exam: PRESENT: alert, awake, oriented to person, oriented to place , oriented to time, oriented to situation, CN II-XII grossly intact. ABSENT: motor sensory deficit Psychiatric exam: PRESENT: appropriate affect, normal mood. ABSENT: homicidal ideation, suicidal ideation Skin exam: PRESENT: dry, intact, warm. ABSENT: cyanosis, rash Results Laboratory Results: 05/27/17 12:33 05/27/17 12:33 Impressions: Chest X-Ray 05/26/17 00:00 IMPRESSION: No active cardiopulmonary disease. Biconcave vertebral bodies most likely associated with sickle cell disease. 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 (3) DVT (deep venous thrombosis) Qualifiers: DVT location: lower extremity Chronicity: chronic Laterality: right Is this a current diagnosis for this admission?: Yes Plan: Cont xarelto
--- NOTE | 2017-05-29 10:18 | PDOC DISCHARGE SUMMARY ---
General - Admit/Disc Date/PCP Admission Date/Primary Care Provider: 05/26/17 06:19 Yam Curer: Dr Baum Discharge Date: 05/29/17 - Discharge Diagnosis (1) Sickle cell pain crisis Is this a current diagnosis for this admission?: Yes Summary: Improving. She states that she is ready to go home. I did speak to her transportation clerk on the day of discharge and he is in agreement. She will follow- up with him in 1-2 weeks. (2) Right-sided chest pain Is this a current diagnosis for this admission?: Yes Summary: No evidence of acute chest syndrome. (3) Anemia Is this a current diagnosis for this admission?: Yes Summary: Due to underlying sickle cell disease. Stable (4) Chronic pain syndrome Is this a current diagnosis for this admission?: Yes Summary: She has p.o. hydromorphone at home for pain. (5) Chronically on opiate therapy Is this a current diagnosis for this admission?: Yes Summary: She will resume her home regimen (6) Elevated bilirubin Is this a current diagnosis for this admission?: Yes Summary: Due to her underlying sickle cell disease. - Additional Information Resuscitation Status: Full Code Discharge Diet: Regular Discharge Activity: Activity As Tolerated, Balance Activity w/Rest, Slowly Increase Activity Home Medications: Aripiprazole [Abilify 10 mg Tablet] 10 mg PO QHS 05/26/17 Escitalopram Oxalate [Lexapro 10 mg Tablet] 10 mg PO QHS 05/26/17 Hydromorphone HCl [Dilaudid] 4 mg PO Q6HP PRN 05/26/17 Hydroxyurea [Hydrea 500 mg Capsule] 500 mg PO BID 05/26/17 Hydroxyzine Pamoate [Vistaril 25 mg Capsule] 25 mg PO TID 05/26/17 Levothyroxine Sodium [Synthroid] 25 mcg PO Q6AM 05/26/17 Rivaroxaban [Xarelto] 20 mg PO DAILY 05/26/17 Zolpidem Tartrate [Ambien] 10 mg PO QHS 05/26/17 History of Present Illness History of Present Illness: CASSANDRA MIDDLETON is a 22 year old female who presented to the emergency room with a sickle cell crisis. Hospital Course Hospital Course: The patient is a 22-year-old -[place] female with a past medical history significant for sickle cell disease. She has a history of acute chest syndrome in the past. The patient presented to the emergency room with severe right leg pain. She also was having right-sided chest pain but no increased shortness of breath or cough. She also had some nausea and vomiting. She was admitted to the hospital. She was started on IV fluids as well as IV Dilaudid for pain control. Her transportation clerk was consulted who followed along during this hospitalization. The patient made a slow but steady recovery. When I saw her this morning she is resting in the bed comfortably. She states she feels as if she is ready to go home. I did speak to her transportation clerk on the day of discharge and he has indicated that it is fine to send her home. She will be transitioned home today in stable condition with close outpatient follow-up. Physical Exam Vital Signs: Temp Pulse Resp BP Pulse Ox 98.0 F 85 16 97/50 L 95 05/29/17 08:19 05/29/17 08:19 05/29/17 08:19 05/29/17 08:19 05/29/17 08:19 Intake & Output 05/28/17 05/29/17 05/30/17 06:59 06:59 06:59 Intake Total 1090 Output Total 2350 4817 Balance -2881 -6186 General appearance: PRESENT: no acute distress, well-developed, well-nourished Head exam: PRESENT: atraumatic, normocephalic Mouth exam: PRESENT: moist, tongue midline Neck exam: ABSENT: carotid bruit, JVD, lymphadenopathy, thyromegaly Respiratory exam: PRESENT: clear to auscultation samaria. ABSENT: rales, rhonchi, wheezes Cardiovascular exam: PRESENT: RRR. ABSENT: diastolic murmur, rubs, systolic murmur GI/Abdominal exam: PRESENT: normal bowel sounds, soft. ABSENT: distended, guarding, mass, organolmegaly, rebound, tenderness Rectal exam: PRESENT: deferred Extremities exam: PRESENT: full ROM. ABSENT: calf tenderness, clubbing, pedal edema Musculoskeletal exam: PRESENT: ambulatory Neurological exam: PRESENT: alert, awake, oriented to person, oriented to place , oriented to time, oriented to situation, CN II-XII grossly intact. ABSENT: motor sensory deficit Skin exam: PRESENT: dry, intact, warm. ABSENT: cyanosis, rash Results Laboratory Results: 05/27/17 12:33 05/27/17 12:33 Impressions: Chest X-Ray 05/26/17 00:00 IMPRESSION: No active cardiopulmonary disease. Biconcave vertebral bodies most likely associated with sickle cell disease. No interval change since the recent chest x-ray Qualifiers - * PATEINT BEING DISCHARGED WITH ANY OF THE FOLLOWING DIAGNOSIS?: No Plan Discharge Plan: She will be discharged home today in stable condition. Time Spent: Greater than 30 Minutes
[2017-05-29 10:40] VITALS: BP 107/52
== END 2017-05-29 10:49 | disposition home or self-care (01) ==
LOC: ER 03:41 → EH 06:19 → 2N 11:10
PROVIDERS: ADMIT Internal Medicine Geriatric Medicine; ATTEND Internal Medicine Geriatric Medicine
DX: D57.00 Hb-SS disease with crisis, unspecified (principal); R07.89 Other chest pain; R07.81 Pleurodynia; G89.4 Chronic pain syndrome; E80.7 Disorder of bilirubin metabolism, unspecified; D58.2 Other hemoglobinopathies; R11.2 Nausea with vomiting, unspecified; I82.501 Chronic embolism and thrombosis of unspecified deep veins of right lower extremity; F11.20 Opioid dependence, uncomplicated; M54.5 Low back pain; M79.604 Pain in right leg; Z90.49 Acquired absence of other specified parts of digestive tract; Z87.891 Personal history of nicotine dependence; Z95.828 Presence of other vascular implants and grafts; Z82.49 Family history of ischemic heart disease and other diseases of the circulatory system; Z83.2 Family history of diseases of the blood and blood-forming organs and certain disorders involving the immune mechanism; Z79.01 Long term (current) use of anticoagulants
CPT/HCPCS: 36591; 99285; 96361; 96374; 96375; 84703; 85025 ×2; 85045; 80048; 80053; 81001; 71046; J3490 ×6; J1200; J1170 ×4; J2405; J7030 ×4; 36415; G0378

== ENCOUNTER 2017-06-01 21:49 | Inpatient (IN) | payer MEDICAID ==
[2017-06-01] MEDS ORDERED: PENICILLIN G BENZATHINE 1.2 MILLION UNIT/2 ML DISP.SYRIN IM ONE (23:08)
[2017-06-01] MEDS ORDERED: NORMAL SALINE 1000 ML 1,000 ML IV ONE (23:09)
[2017-06-01] MEDS ORDERED: HYDROMORPHONE HCL INJ/PF 2 MG/ML AMPULE IV ONE (23:09)
[2017-06-01] MEDS ORDERED: DIPHENHYDRAMINE HCL 50 MG/ML VIAL IV ONE (23:09)
[2017-06-01] MEDS ORDERED: ALBUTEROL SULFATE 0.083% NEB 2.5 MG/3 ML AMPUL NEB ONE (23:10)
--- NOTE | 2017-06-01 23:30 | ER Document Report ---
ED General - General Chief Complaint: Fever Stated Complaint: FEVER Time Seen by Provider: 06/01/17 22:58 Notes: Patient is a 22-year-old female with a history of sickle cell disease who presents with 2 complaints. First complaint of some back pain. She says it has been off and on for about 2 days. She has pain typical with her sickle cell disease. Is not severe at this time. It does hurt. She does take oral Dilaudid at home. Patient second complaint is of a sore throat and fever. Fever started today. Temp was 102 at home. She did take Motrin which relieved the fever. She says she has very little to almost no cough. No chest pain. No shortness of breath. She said she did have just a slight wheezing earlier. No vomiting. No diarrhea. No abdominal pain. She does have a history of cholecystectomy. She still has her spleen. She was recently discharged from hospital a few days ago after having sickle cell crisis with pain in her right leg. No other complaints at this time. She does have a previous history of acute chest syndrome. She says her current symptoms do not feel similar to that of her previous acute chest syndrome. TRAVEL OUTSIDE OF THE [place] IN LAST 30 DAYS: No - Related Data Allergies/Adverse Reactions: morphine Adverse Reaction (Severe, Verified 06/01/17 21:51) RASH,SWELLING jacob peppers Adverse Reaction (Severe, Uncoded 06/01/17 21:51) throat closes Past Medical History - Social History Smoking Status: Never Smoker Frequency of alcohol use: None Drug Abuse: None Family History: Hypertension, Other - Sickle cell. denies: Arthritis, CAD, COPD , CVA, DM, Hyperlipidemia, Malignancy, Thyroid Disfunction Patient has suicidal ideation: No Patient has homicidal ideation: No - Past Medical History Cardiac Medical History: Reports: Hx DVT - RUE s/p port placement Denies: Hx Congestive Heart Failure, Hx Coronary Artery Disease, Hx Heart Attack, Hx Hypertension, Hx Pulmonary Embolism Pulmonary Medical History: Reports: Hx Bronchitis - once in past per patient, Hx Pneumonia - history in past per patient Denies: Hx Asthma, Hx COPD, Hx Tuberculosis Neurological Medical History: Denies: Hx Cerebrovascular Accident, Hx Migraine, Hx Seizures Renal/ Medical History: Denies: Hx End Stage Renal Disease, Hx Kidney Stones, Hx Peritoneal Dialysis GI Medical History: Denies: Hx Cirrhosis, Hx Gastroesophageal Reflux Disease, Hx Ulcer Musculoskeltal Medical History: Denies Hx Arthritis, Denies Hx Multiple Sclerosis, Reports Hx Musculoskeletal Trauma Psychiatric Medical History: Reports: Hx Anxiety, Hx Depression - anxiety voiced with chronic illness Denies: Hx Bipolar Disorder, Hx Schizophrenia Past Surgical History: Reports: Hx Cholecystectomy - 06/28/2015, Hx Vascular Surgery - port put in December, - Immunizations Immunizations up to date: Yes Hx Diphtheria, Pertussis, Tetanus Vaccination: Yes Review of Systems - Review of Systems Notes: My Normal Review Basic REVIEW OF SYSTEMS: CONSTITUTIONAL : Fever EENT: Sore throat CARDIOVASCULAR: Denies chest pain. RESPIRATORY: Denies cough, cold, or chest congestion. Denies shortness of breath, difficulty breathing, or wheezing. GASTROINTESTINAL: Denies abdominal pain. Denies nausea, vomiting, or diarrhea. GENITOURINARY: Denies difficulty urinating, painful urination, burning, frequency, or blood in urine. MUSCULOSKELETAL: Back pain SKIN: Denies rash or skin lesions. HEMATOLOGIC : Sickle cell disease NEUROLOGICAL: Denies altered mental status or loss of consciousness. Denies headache. Denies weakness or paralysis or loss of use of either side. Denies problems with gait or speech. Denies sensory or motor loss. ALL OTHER SYSTEMS REVIEWED AND NEGATIVE. Physical Exam - Vital signs Vitals: Temp Pulse Resp BP Pulse Ox 98.9 F 99 20 105/45 L 97 06/01/17 22:02 06/01/17 22:02 06/01/17 22:02 06/01/17 22:02 06/01/17 22:02 - Notes Notes: General Appearance: Well nourished, alert, cooperative, no acute distress, no obvious discomfort. Well-appearing. Vitals: reviewed, See vital signs table. Head: no swelling or tenderness to the head Eyes: PERRL, EOMI, Conjuctiva clear Mouth: No decreasd moisture Throat: Enlarged tonsils with erythema and exudates. Uvula is midline. Patient has normal tone of voice. No stridor. No inflammation or swelling into the peritonsillar space. Neck: Supple, no neck tenderness, Lungs: Very slight wheezing in lower lung [place]., No rales, No rhonci, No accessory muscle use, good air exchange bilaterally. Heart: Normal rate, Regular rythm, No murmur, no rub Abdomen: Normal BS, soft, No rigidity, No abdominal tenderness, No guarding, no rebound, no abdominal masses, no organomegaly Back: Mild pain to palpation over lumbar spine. Extremities: strength 5/5 in all extremities, good pulses in all extremities, no swelling or tenderness in the extremities, no edema. Skin: warm, dry, appropriate color, no rash Neuro: speech clear, oriented x 3, normal affect, responds appropriately to questions. Course - Re-evaluation Re-evalutation: 06/02/17 03:25 Clinically patient looks well and her pain is currently well controlled. My concern is that she has a leukocytosis of 35,000. The only source of infection I can find that she has a pharyngitis consistent with strep throat. Per center criteria she does require treatment for strep throat and therefore she was given an IM shot of penicillin. She was recently admitted to the hospital and was just discharged 2 days ago. I am therefore concerned that she has this leukocytosis of 35,000. I did speak with the hospitalist, Dr. Simmons, who agrees to come to consult the patient for admission. Reason why request consult for admission is that the patient has a high leukocytosis with with recent hospitalization. Want to make sure she is observed for 24 hours to make sure that her white blood cell count does improve and to make sure that she does not have any progressive signs of sepsis. Currently her vital signs are stable and she is not septic appearing. On exam she has no signs of peritonsillar abscess. Dictation of this chart was performed using voice recognition software; therefore, there may be some unintended grammatical errors. - Vital Signs Vital signs: Temp Pulse Resp BP Pulse Ox 97.5 F 73 20 103/50 L 98 06/02/17 00:46 06/02/17 00:46 06/02/17 00:46 06/02/17 00:46 06/02/17 00:46 - Laboratory Result Diagrams: 06/01/17 23:39 06/01/17 23:39 Laboratory results interpreted by me: 06/01/17 06/01/17 06/02/17 23:39 23:39 00:50 WBC 35.0 H* RBC 2.99 L Hgb 10.6 L Hct 30.4 L MCV 102 H MCH 35.4 H RDW 19.5 H Band Neutrophils % 1 L Abs Neuts (Manual) 26.6 H Abs Lymphs (Manual) 5.3 H Abs Monocytes (Manual) 2.8 H Retic Count (auto) 7.06 H Absolute Retic 0.211 H Potassium 3.5 L Total Bilirubin 7.8 H Direct Bilirubin 0.8 H AST 60 H Urine Urobilinogen 4.0 H Discharge - Discharge Clinical Impression: Sickle cell anemia Qualifiers: Sickle-cell associated disorders: with unspecified crisis Qualified Code(s): D57.00 - Hb-SS disease with crisis, unspecified Leukocytosis Qualifiers: Leukocytosis type: unspecified Qualified Code(s): D72.829 - Elevated white blood cell count, unspecified Pharyngitis Qualifiers: Pharyngitis/tonsillitis etiology: unspecified etiology Qualified Code(s): J02.9 - Acute pharyngitis, unspecified Condition: Stable Disposition: ADMITTED OBSERVATION Admitting Provider: Hospitalist Unit Admitted: Medical Floor
[2017-06-02 00:03] LABS: ALANINE AMINOTRANSFERASE 41 U/L (9-52); ALBUMIN 4.1 g/dL (3.5-5.0); ALKALINE PHOSPHATASE 89 U/L (38-126); ANION GAP 12 (5-19); ASPARTATE AMINO TRANSFERASE 60 U/L (14-36); BILIRUBIN,DIRECT 0.8 mg/dL (0.0-0.4); BILIRUBIN,TOTAL 7.8 mg/dL (0.2-1.3); BLOOD UREA NITROGEN 10 mg/dL (7-20); CALCIUM 9.1 mg/dL (8.4-10.2); CARBON DIOXIDE 25 mmol/L (22-30); CHLORIDE 101 mmol/L (98-107); GLUCOSE 95 mg/dL (75-110); POTASSIUM 3.5 mmol/L (3.6-5.0); SODIUM 138.4 mmol/L (137-145); TOTAL PROTEIN 6.9 g/dL (6.3-8.2)
[2017-06-02 00:14] LABS: ABSOLUTE RETICS # 0.211 10^6/uL (0.028-0.122); HEMATOCRIT 30.4 % (36.0-47.0); HEMOGLOBIN 10.6 g/dL (12.0-15.5); MEAN CORPUSCULAR HEMOGLOBIN 35.4 pg (27.0-33.4); MEAN CORPUSCULAR HGB CONC 34.9 g/dL (32.0-36.0); MEAN CORPUSCULAR VOLUME 102 fl (80-97); PLATELET COUNT 414 10^3/uL (150-450); RED BLOOD COUNT 2.99 10^6/uL (3.72-5.28); RED CELL DISTRIBUTION WIDTH 19.5 % (11.5-14.0); RETICULOCYTE COUNT (AUTO) 7.06 % (0.66-2.85)
--- NOTE | 2017-06-02 00:35 | RADIOLOGY REPORT (SQ) ---
EXAM DESCRIPTION: CHEST PA/LAT CLINICAL HISTORY: 22 years, Female, fever, sickle cell COMPARISON: 05/26/17 NUMBER OF VIEWS: 2 FINDINGS: Normal lung volume, clear parenchyma, normal cardiac silhouette, and intact bony thorax. Right miniport central line tip at the SVC. Right upper abdominal clips. IMPRESSION: No acute cardiopulmonary findings.
[2017-06-02 00:54] LABS: ABSOLUTE LYMPHOCYTES# (MANUAL) 5.3 10^3/uL (0.5-4.7); ABSOLUTE MONOCYTES # (MANUAL) 2.8 10^3/uL (0.1-1.4); ABSOLUTE NEUTROPHILS# (MANUAL) 26.6 10^3/uL (1.7-8.2); BAND NEUTROPHILS % (MANUAL) 1 % (3-5); BASOPHILS % (MANUAL) 0 % (0-2); EOSINOPHILS % (MANUAL) 1 % (0-6); LYMPHOCYTES % (MANUAL) 15 % (13-45); MONOCYTES % (MANUAL) 8 % (3-13); SEGMENTED NEUTROPHILS % (MAN) 75 % (42-78); TOTAL CELLS COUNTED 100
[2017-06-02 00:56] LABS: POLYCHROMASIA 1+
[2017-06-02 00:57] LABS: ANISOCYTOSIS 2+
[2017-06-02] MEDS ORDERED: HYDROMORPHONE HCL INJ/PF 2 MG/ML AMPULE IV ONE ×2 (00:57→01:31)
[2017-06-02 00:58] LABS: SCHISTOCYTES SLIGHT
[2017-06-02 00:59] LABS: STOMATOCYTES 2+; TARGET CELLS 3+
[2017-06-02 01:00] LABS: HOWELL-JOLLY BODIES PRESENT
[2017-06-02 01:01] LABS: PLATELET COMMENT ADEQUATE; PLATELET LARGE PRESENT; SICKLE RED CELLS SLIGHT
[2017-06-02 01:13] LABS: APPEARANCE,URINE CLEAR; BILIRUBIN,URINE NEGATIVE (NEGATIVE); COLOR,URINE YELLOW; GLUCOSE, URINE NEGATIVE (NEGATIVE); KETONES,URINE NEGATIVE (NEGATIVE); LEUKOCYTE ESTERASE,URINE NEGATIVE (NEGATIVE); NITRITE,URINE NEGATIVE (NEGATIVE); PROTEIN,URINE NEGATIVE (NEGATIVE); URINE SPECIFIC GRAVITY 1.006
[2017-06-02] MEDS ORDERED: HYDROMORPHONE HCL 2 MG TABLET PO PRN ×2 (01:36→19:34)
[2017-06-02] MEDS ORDERED: NORMAL SALINE 1000 ML 1,000 ML IV PRN (01:42)
[2017-06-02] MEDS ORDERED: IPRATROPIUM/ALBUTEROL 0.5-2.5 MG/3 ML AMPUL NEB PRN (01:42)
[2017-06-02] MEDS ORDERED: MAG HYDROX/AL HYDROX/SIMETH SUSP 30 ML UDCUP PO PRN (01:42)
[2017-06-02] MEDS ORDERED: ACETAMINOPHEN 325 MG TABLET PO PRN (01:42)
[2017-06-02] MEDS ORDERED: MAGNESIUM HYDROXIDE SUSP 30 ML UDCUP PO PRN (01:42)
[2017-06-02] MEDS ORDERED: ARIPIPRAZOLE 5 MG TABLET PO ONE (03:00)
--- NOTE | 2017-06-02 03:31 | PDOC H&P ---
History of Present Illness Admission Date/PCP: 06/02/17 01:42 JOIE MOREIRA MD Patient complains of: Sore throat History of Present Illness: CASSANDRA MIDDLETON is a 22 year old female with a history of sickle cell disease, chronic pain opiate and tobacco dependence. She presents with 24 hours of sore throat developing fever prompting evaluation emergency room where she is found to have leukocytosis of 35,000 and left-sided submandibular lymphadenopathy without dental pain. She is diagnosed with strep throat and receives IV penicillin and referred to the hospitalist for admission. Patient complains of acute on chronic back pain receiving IV Dilaudid from ER provider. Patient is asleep upon entering her room intermittently arousable, falling asleep mid sentence and requests more IV Dilaudid. Past Medical History Cardiac Medical History: Reports: DVT - RUE s/p port placement Denies: Congestive Heart Failure, Coronary Artery Disease, Myocardial Infarction, Hypertension, Pulmonary Embolism Pulmonary Medical History: Reports: Bronchitis - once in past per patient, Pneumonia - history in past per patient Denies: Asthma, Chronic Obstructive Pulmonary Disease (COPD), Tuberculosis Neurological Medical History: Denies: Migraine, Seizures Renal/ Medical History: Denies: End Stage Renal Disease GI Medical History: Denies: Cirrhosis, Gastroesophageal Reflux Disease Musculoskeltal Medical History: Denies: Arthritis Psychiatric Medical History: Reports: Depression - anxiety voiced with chronic illness Denies: Bipolar Disorder Hematology: Reports: Anemia - Sickle cell, Sickle Cell Disease Denies: Bleeding Tendencies Past Surgical History Past Surgical History: Reports: Cholecystectomy - 06/28/2015, Vascular Surgery - port put in December, Social History Information Source: Patient, [facility] Records Lives with: Alone Smoking Status: Never Smoker Frequency of Alcohol Use: None Hx Recreational Drug Use: No Drugs: None Hx Prescription Drug Abuse: No - Advance Directive Resuscitation Status: Full Code Family History Family History: Hypertension, Other - Sickle cell. denies: Arthritis, CAD, COPD , CVA, DM, Hyperlipidemia, Malignancy, Thyroid Disfunction Parental Family History Reviewed: Yes Children Family History Reviewed: Yes Sibling(s) Family History Reviewed.: Yes Medication/Allergy Home Medications: Aripiprazole [Abilify 10 mg Tablet] 10 mg PO QHS 05/26/17 Escitalopram Oxalate [Lexapro 10 mg Tablet] 10 mg PO QHS 05/26/17 Hydromorphone HCl [Dilaudid] 4 mg PO Q6HP PRN 05/26/17 Hydroxyurea [Hydrea 500 mg Capsule] 500 mg PO BID 05/26/17 Hydroxyzine Pamoate [Vistaril 25 mg Capsule] 25 mg PO TID 05/26/17 Levothyroxine Sodium [Synthroid] 25 mcg PO Q6AM 05/26/17 Rivaroxaban [Xarelto] 20 mg PO DAILY 05/26/17 Zolpidem Tartrate [Ambien] 10 mg PO QHS 05/26/17 Allergies/Adverse Reactions: morphine Adverse Reaction (Severe, Verified 06/01/17 21:51) RASH,SWELLING jacob peppers Adverse Reaction (Severe, Uncoded 06/01/17 21:51) throat closes Review of Systems Constitutional: ABSENT: chills, fever(s), headache(s), weight gain, weight loss Eyes: ABSENT: visual disturbances Ears: ABSENT: hearing changes Cardiovascular: ABSENT: chest pain, dyspnea on exertion, edema, orthropnea, palpitations Respiratory: ABSENT: cough, hemoptysis Gastrointestinal: ABSENT: abdominal pain, constipation, diarrhea, hematemesis, hematochezia, nausea, vomiting Genitourinary: ABSENT: dysuria, hematuria Musculoskeletal: ABSENT: joint swelling Integumentary: ABSENT: rash, wounds Neurological: ABSENT: abnormal gait, abnormal speech, confusion, dizziness, focal weakness, syncope Psychiatric: ABSENT: anxiety, depression, homidical ideation, suicidal ideation Endocrine: ABSENT: cold intolerance, heat intolerance, polydipsia, polyuria Hematologic/Lymphatic: ABSENT: easy bleeding, easy bruising Physical Exam Vital Signs: Temp Pulse Resp BP Pulse Ox 97.5 F 73 20 103/50 L 98 06/02/17 00:46 06/02/17 00:46 06/02/17 00:46 06/02/17 00:46 06/02/17 00:46 General appearance: PRESENT: cooperative, mild distress, well-developed, well- nourished, other - Sedated Head exam: PRESENT: atraumatic, normocephalic Eye exam: PRESENT: conjunctiva pink, EOMI, PERRLA. ABSENT: scleral icterus Ear exam: PRESENT: normal external ear exam Mouth exam: PRESENT: moist, tongue midline, other - No lingual or gingival pain Teeth exam: ABSENT: dental caries Throat exam: PRESENT: post pharyngeal erythema Neck exam: PRESENT: lymphadenopathy - Tender 1.5 cm tender submandibular node, other. ABSENT: carotid bruit, JVD, thyromegaly Respiratory exam: PRESENT: clear to auscultation samaria. ABSENT: rales, rhonchi, wheezes Cardiovascular exam: PRESENT: RRR. ABSENT: diastolic murmur, rubs, systolic murmur Pulses: PRESENT: normal dorsalis pedis pul Vascular exam: PRESENT: normal capillary refill GI/Abdominal exam: PRESENT: normal bowel sounds, soft. ABSENT: distended, guarding, mass, organolmegaly, rebound, tenderness Rectal exam: PRESENT: deferred Extremities exam: PRESENT: full ROM. ABSENT: calf tenderness, clubbing, pedal edema Neurological exam: PRESENT: alert, awake, oriented to person, oriented to place , oriented to time, oriented to situation, CN II-XII grossly intact. ABSENT: motor sensory deficit Psychiatric exam: PRESENT: appropriate affect, normal mood. ABSENT: homicidal ideation, suicidal ideation Skin exam: PRESENT: dry, intact, warm. ABSENT: cyanosis, rash Results Impressions: Chest X-Ray 06/01/17 23:09 IMPRESSION: No acute cardiopulmonary findings. Assessment & Plan - Diagnosis (1) Leukocytosis Qualifiers: Leukocytosis type: unspecified Qualified Code(s): D72.829 - Elevated white blood cell count, unspecified Is this a current diagnosis for this admission?: Yes Plan: Likely strep pharyngitis, trial empiric antibiotics, reevaluate chemistry (2) Pharyngitis Qualifiers: Pharyngitis/tonsillitis etiology: unspecified etiology Qualified Code(s): J02.9 - Acute pharyngitis, unspecified Is this a current diagnosis for this admission?: Yes Plan: Blood and throat culture pending, trial empiric Unasyn, follow-up CBC and symptomatic management (3) Sickle cell anemia Qualifiers: Sickle-cell associated disorders: with unspecified crisis Qualified Code(s) : D57.00 - Hb-SS disease with crisis, unspecified; D57.0 - Hb-SS disease with crisis Is this a current diagnosis for this admission?: Yes Plan: Appears at baseline though concern for significant leukocytosis will consult 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 Salas - Time Time Spent: 30 to 50 Minutes - Inpatient Certification Medical Necessity: Need Close Monitoring Due to Risk of Patient Decompensation
[2017-06-02] MEDS: NORMAL SALINE 1000 ML 1,000 ML IV PRN ×2 (03:55→20:26)
[2017-06-02] MEDS: LEVOTHYROXINE SODIUM 0.025 MG TABLET PO SCH (05:14)
[2017-06-02] MEDS ORDERED: HEPARIN SOD (PORCINE) 5,000 UNIT/ML 1 ML SYRINGE SUBCUT SCH (06:00)
[2017-06-02] MEDS ORDERED: AMPICILLIN SODIUM/SULBACTAM NA 3 GM in NORMAL SALINE 100 ML IV SCH (06:00)
--- NOTE | 2017-06-02 08:02 | Physician Advisory Note ---
Physician Advisor ProgressNote .: Pursuant to the plan for [facility], I have reviewed the medical record for this patient. Physician Advisor Statement: Documentation: please document explicitly the findings that support dx of acute sickle cell SSC crisis, or state that crisis is ruled out this stay. Status: If pt is not clinically safe for d/c in AM 3/6, please document the clinical reasons/concerns, & may change to Inpatient status. (Needing freq prn IV Rx, not responding appropriately to tx, concerning degrees of hypotension, worsening WBC, new dx/issue, ....) Discussion: 22yo w/frequent SSC admissions, chronic opiate dependence, chronic tobacco dependence, typically requiring frequent IV DIlaudid for adequate pain control for crises, came in w/sore throat, fever to 102 at home before Motrin pre-arrival, slight wheezing, Pain c/w her SSC, but not severe. Enlarged, red tonsils w/exudates. Tender submandibular node 1.5cm. Tachycardia, hypotension , leukocytosis of 35K. Hgb 10.6. Required repeated doses IV Dilaudid in ED, & IM PCN. Ordered IV abx, prn po Dilaudid, clears only po. Since coming in, hypotension worsened, as low as 82/45, despite IVF. Thanks! CK
[2017-06-02] MEDS ORDERED: HYDROXYZINE PAMOATE 25 MG CAPSULE PO SCH (10:00)
[2017-06-02] MEDS: DOCUSATE SODIUM 100 MG CAPSULE PO SCH ×2 (11:01→17:30)
[2017-06-02] MEDS: HYDROXYUREA 500 MG CAPSULE PO SCH ×2 (11:03→17:30)
[2017-06-02] MEDS: BENZOCAINE/MENTHOL SORE THROAT LOZENGE BUCCAL PRN ×2 (11:03→14:15)
[2017-06-02] MEDS: RIVAROXABAN 10 MG TABLET PO SCH (11:03)
[2017-06-02] MEDS ORDERED: HYDROXYZINE PAMOATE 25 MG CAPSULE PO ONE (11:30)
[2017-06-02] MEDS: AMPICILLIN SODIUM/SULBACTAM NA 3 GM in NORMAL SALINE 100 ML IV SCH ×2 (12:35→17:30)
[2017-06-02] MEDS: HYDROXYZINE PAMOATE 25 MG CAPSULE PO SCH ×2 (14:15→17:30)
[2017-06-02 14:16] LABS: PATH REVIEW PATHOLOGIST REVIEWED
--- NOTE | 2017-06-02 15:37 | Progress Note ---
Provider Note Provider Note: 22-year-old -[place] with history of sickle cell disease admitted overnight for pharyngitis and significant leukocytosis. On IV antibiotics. She reports having difficulty swallowing due to pain reports increased back pain. Hematology consulted for further management. She will likely need more than 2 midnights for IV antibiotics. We will change status from obs to inpatient.
[2017-06-02] MEDS: HYDROMORPHONE HCL 2 MG TABLET PO PRN (20:10)
[2017-06-02] MEDS ORDERED: ARIPIPRAZOLE 5 MG TABLET PO SCH (22:00)
[2017-06-02] MEDS ORDERED: ESCITALOPRAM OXALATE 10 MG TABLET PO SCH (22:00)
[2017-06-02] MEDS ORDERED: VANCOMYCIN HCL INJ 1000 MG VIAL IV PRN (23:05)
[2017-06-02] MEDS ORDERED: VANCOMYCIN HCL 1,000 MG in DEXTROSE 5%-WATER 250 ML IV ONE (23:15)
[2017-06-02] MEDS ORDERED: VANCOMYCIN HCL INJ 1000 MG VIAL ONE (23:29)
[2017-06-03] MEDS: AMPICILLIN SODIUM/SULBACTAM NA 3 GM in NORMAL SALINE 100 ML IV SCH ×3 (01:29→12:39)
[2017-06-03] MEDS: HYDROMORPHONE HCL 2 MG TABLET PO PRN (04:37)
[2017-06-03 05:23] LABS: HEMATOCRIT 27.2 % (36.0-47.0); HEMOGLOBIN 9.6 g/dL (12.0-15.5); MEAN CORPUSCULAR HEMOGLOBIN 35.1 pg (27.0-33.4); MEAN CORPUSCULAR HGB CONC 35.2 g/dL (32.0-36.0); MEAN CORPUSCULAR VOLUME 100 fl (80-97); PLATELET COUNT 410 10^3/uL (150-450); RED BLOOD COUNT 2.73 10^6/uL (3.72-5.28); RED CELL DISTRIBUTION WIDTH 19.7 % (11.5-14.0)
[2017-06-03] MEDS: LEVOTHYROXINE SODIUM 0.025 MG TABLET PO SCH (05:41)
[2017-06-03] MEDS: NORMAL SALINE 1000 ML 1,000 ML IV PRN (05:42)
[2017-06-03 05:44] LABS: ALANINE AMINOTRANSFERASE 34 U/L (9-52); ALBUMIN 3.6 g/dL (3.5-5.0); ALKALINE PHOSPHATASE 71 U/L (38-126); ANION GAP 12 (5-19); ASPARTATE AMINO TRANSFERASE 22 U/L (14-36); BILIRUBIN,DIRECT 0.6 mg/dL (0.0-0.4); BILIRUBIN,TOTAL 4.9 mg/dL (0.2-1.3); BLOOD UREA NITROGEN 4 mg/dL (7-20); CALCIUM 8.9 mg/dL (8.4-10.2); CARBON DIOXIDE 22 mmol/L (22-30); CHLORIDE 106 mmol/L (98-107); GLUCOSE 88 mg/dL (75-110); SODIUM 139.9 mmol/L (137-145); TOTAL PROTEIN 6.2 g/dL (6.3-8.2)
[2017-06-03 06:13] LABS: ABSOLUTE LYMPHOCYTES# (MANUAL) 1.3 10^3/uL (0.5-4.7); ABSOLUTE MONOCYTES # (MANUAL) 1.3 10^3/uL (0.1-1.4); ABSOLUTE NEUTROPHILS# (MANUAL) 22.6 10^3/uL (1.7-8.2); BASOPHILS % (MANUAL) 0 % (0-2); EOSINOPHILS % (MANUAL) 3 % (0-6); LYMPHOCYTES % (MANUAL) 5 % (13-45); MONOCYTES % (MANUAL) 5 % (3-13); SEGMENTED NEUTROPHILS % (MAN) 87 % (42-78); TOTAL CELLS COUNTED 100
[2017-06-03 06:18] LABS: NUCLEATED RED BLOOD CELLS 1 /100 WBC (0)
[2017-06-03 06:21] LABS: ANISOCYTOSIS 2+; OVALOCYTES SLIGHT; POLYCHROMASIA SLIGHT; SICKLE RED CELLS SLIGHT; TARGET CELLS 1+; TOXIC GRANULATION SLIGHT; TOXIC VACUOLATION PRESENT
[2017-06-03 06:22] LABS: PLATELET COMMENT ADEQUATE; POIKILOCYTOSIS 1+; SCHISTOCYTES SLIGHT
--- NOTE | 2017-06-03 08:27 | PDOC CONSULTATION ---
Consultation Consult Date: 06/03/17 Attending physician:: KARI BARRETO Consult reason:: Recent hospitalization for sickle cell pain crisis, here with fever, hypotension, severe pharyngitis History of Present Illness Admission Date/PCP: 06/02/17 01:42 JOIE MOREIRA MD Patient complains of: Sore throat, fever, weakness History of Present Illness: 22-year-old female with known history of sickle cell disease with recent severe crisis, she improved at the end of last week and we discharged her home, about 48 hours after discharge she began developing swelling of the throat, odynophagia, and ultimately had a fever spike to 102 at home, she felt very weak and was concerned, upon presentation she was hypotensive, tachycardic, febrile, fitting criteria for sirs. She was admitted and placed on IV antibiotics, in terms of her pain crisis that has been improving, she has been on oral Dilaudid at home and that continued here. Unfortunately we have a shortage of IV Dilaudid as well as IV morphine, so that has not been able to be used here while in house. She did have a fever last night around 7 PM. That was last fever that she had. Past Medical History Cardiac Medical History: Reports: DVT - RUE s/p port placement Denies: Congestive Heart Failure, Coronary Artery Disease, Myocardial Infarction, Hypertension, Pulmonary Embolism Pulmonary Medical History: Reports: Bronchitis - once in past per patient, Pneumonia - history in past per patient Denies: Asthma, Chronic Obstructive Pulmonary Disease (COPD), Tuberculosis Neurological Medical History: Denies: Migraine, Seizures Renal/ Medical History: Denies: End Stage Renal Disease GI Medical History: Denies: Cirrhosis, Gastroesophageal Reflux Disease Musculoskeltal Medical History: Denies: Arthritis Psychiatric Medical History: Reports: Depression Denies: Bipolar Disorder Hematology: Reports: Anemia - Sickle cell, Sickle Cell Disease Denies: Bleeding Tendencies Past Surgical History Past Surgical History: Reports: Cholecystectomy - 06/28/2015, Vascular Surgery - port put in December, Social History Lives with: Alone Smoking Status: Former Smoker Frequency of Alcohol Use: None Hx Recreational Drug Use: No Drugs: None Hx Prescription Drug Abuse: No - Advance Directive Resuscitation Status: Full Code Family History Family History: Hypertension, Other - Sickle cell. denies: Arthritis, CAD, COPD , CVA, DM, Hyperlipidemia, Malignancy, Thyroid Disfunction Parental Family History Reviewed: Yes Children Family History Reviewed: Yes Sibling(s) Family History Reviewed.: Yes Medication/Allergy Home Medications: Aripiprazole [Abilify 10 mg Tablet] 10 mg PO QHS 05/26/17 Escitalopram Oxalate [Lexapro 10 mg Tablet] 10 mg PO QHS 05/26/17 Hydromorphone HCl [Dilaudid] 4 mg PO Q4HP PRN 05/26/17 Hydroxyurea [Hydrea 500 mg Capsule] 500 mg PO BID 05/26/17 Hydroxyzine Pamoate [Vistaril 25 mg Capsule] 25 mg PO TID 05/26/17 Levothyroxine Sodium [Synthroid] 25 mcg PO Q6AM 05/26/17 Rivaroxaban [Xarelto] 20 mg PO DAILY 05/26/17 Zolpidem Tartrate [Ambien] 10 mg PO QHS 05/26/17 Allergies/Adverse Reactions: morphine Adverse Reaction (Severe, Verified 06/01/17 21:51) RASH,SWELLING jacob peppers Adverse Reaction (Severe, Uncoded 06/01/17 21:51) throat closes Review of Systems Constitutional: PRESENT: anorexia, chills, fatigue, fever(s), weakness Nose, Mouth, and Throat: PRESENT: sore throat Cardiovascular: ABSENT: chest pain, dyspnea on exertion, edema, orthropnea, palpitations Gastrointestinal: ABSENT: abdominal pain, constipation, diarrhea, hematemesis, hematochezia, nausea, vomiting Musculoskeletal: PRESENT: back pain Physical Exam Vital Signs: Temp Pulse Resp BP Pulse Ox 98.2 F 90 16 103/48 L 98 06/03/17 08:06 06/03/17 08:06 06/03/17 08:06 06/03/17 08:06 06/03/17 08:06 Intake & Output 06/02/17 06/03/17 06/04/17 06:59 06:59 06:59 Intake Total 400 Output Total 2750 Balance -2350 Weight 52.7 kg General appearance: PRESENT: no acute distress Head exam: PRESENT: atraumatic Eye exam: PRESENT: conjunctival injection Mouth exam: PRESENT: dry mucosa Throat exam: PRESENT: tonsillar erythema, tonsillar exudate Neck exam: ABSENT: carotid bruit, JVD, lymphadenopathy, thyromegaly Respiratory exam: PRESENT: clear to auscultation samaria. ABSENT: rales, rhonchi, wheezes GI/Abdominal exam: PRESENT: normal bowel sounds, soft. ABSENT: distended, guarding, mass, organolmegaly, rebound, tenderness Rectal exam: PRESENT: deferred Neurological exam: PRESENT: alert, altered, awake, oriented to person, oriented to place, oriented to time, oriented to situation Results Laboratory Results: 06/03/17 05:08 06/03/17 05:08 06/03/17 06/03/17 05:08 05:08 WBC 26.0 H RBC 2.73 L Hgb 9.6 L Hct 27.2 L MCV 100 H MCH 35.1 H MCHC 35.2 RDW 19.7 H Plt Count 410 Seg Neutrophils % Not Reportable Lymphocytes % Not Reportable Monocytes % Not Reportable Eosinophils % Not Reportable Basophils % Not Reportable Absolute Neutrophils Not Reportable Absolute Lymphocytes Not Reportable Absolute Monocytes Not Reportable Absolute Eosinophils Not Reportable Absolute Basophils Not Reportable Sodium 139.9 Potassium 4.0 Chloride 106 Carbon Dioxide 22 Anion Gap 12 BUN 4 L Creatinine 0.42 L Est GFR ( Amer) > 60 Est GFR (Non-Af Amer) > 60 Glucose 88 Calcium 8.9 Total Bilirubin 4.9 H AST 22 ALT 34 Alkaline Phosphatase 71 Total Protein 6.2 L Albumin 3.6 Impressions: Chest X-Ray 06/01/17 23:09 IMPRESSION: No acute cardiopulmonary findings. Assessment & Plan - Diagnosis (1) Pharyngitis Qualifiers: Pharyngitis/tonsillitis etiology: unspecified etiology Qualified Code(s): J02.9 - Acute pharyngitis, unspecified Is this a current diagnosis for this admission?: Yes Plan: Acute pharyngitis, probably the cause of the Sirs/sepsis presentation, she is currently on IV antibiotics, I will leave it up to hospitalist team upon how long to continue IV before transitioning to oral antibiotics, however she has not been afebrile yet for 24 hours, she is only been afebrile for about 10 hours. (2) Sickle cell pain crisis Is this a current diagnosis for this admission?: Yes Plan: She did have severe pain crisis last week, it is only mild crisis now, continue with oral Dilaudid as there is a nationwide shortage of IV Dilaudid. 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 - Time Time Spent: Greater than 70 Minutes - Inpatient Certification Based on my medical assessment, after consideration of the patient's comorbidities, presenting symptoms, or acuity I expect that the services needed warrant INPATIENT care.: Yes I certify that my determination is in accordance with my understanding of Medicare's requirements for reasonable and necessary INPATIENT services [42 CFR 412.3e].: Yes Medical Necessity: Need For IV Fluids, Need for IV Antibiotics
[2017-06-03] MEDS: BENZOCAINE/MENTHOL SORE THROAT LOZENGE BUCCAL PRN (09:34)
[2017-06-03] MEDS: HYDROXYUREA 500 MG CAPSULE PO SCH (09:34)
[2017-06-03] MEDS: HYDROXYZINE PAMOATE 25 MG CAPSULE PO SCH (09:39)
[2017-06-03] MEDS: RIVAROXABAN 10 MG TABLET PO SCH (09:39)
[2017-06-03] MEDS: DOCUSATE SODIUM 100 MG CAPSULE PO SCH (09:39)
[2017-06-03] MEDS ORDERED: VANCOMYCIN HCL 750 MG in DEXTROSE 5%-WATER 250 ML IV ONE ×2 (10:30→11:45)
--- NOTE | 2017-06-03 12:51 | PDOC DISCHARGE SUMMARY ---
General - Admit/Disc Date/PCP Admission Date/Primary Care Provider: 06/02/17 01:42 JOIE MOREIRA MD Discharge Date: 06/03/17 - Discharge Diagnosis (1) Pharyngitis Is this a current diagnosis for this admission?: Yes (2) Anemia Is this a current diagnosis for this admission?: Yes (3) Chronic pain syndrome Is this a current diagnosis for this admission?: Yes (4) Leukocytosis Is this a current diagnosis for this admission?: Yes (5) Chronically on opiate therapy Is this a current diagnosis for this admission?: Yes (6) Sickle cell anemia Is this a current diagnosis for this admission?: Yes (8) Bacteremia Is this a current diagnosis for this admission?: Yes Summary: Blood culture to be followed and pt to be contacted - Additional Information Resuscitation Status: Full Code Prescriptions: Amoxicillin/Potassium Clav [Augmentin 875-125 Tablet] 1 each PO Q12 #14 tablet Home Medications: Aripiprazole [Abilify 10 mg Tablet] 10 mg PO QHS 05/26/17 Escitalopram Oxalate [Lexapro 10 mg Tablet] 10 mg PO QHS 05/26/17 Hydromorphone HCl [Dilaudid] 4 mg PO Q4HP PRN 05/26/17 Hydroxyurea [Hydrea 500 mg Capsule] 500 mg PO BID 05/26/17 Hydroxyzine Pamoate [Vistaril 25 mg Capsule] 25 mg PO TID 05/26/17 Levothyroxine Sodium [Synthroid] 25 mcg PO Q6AM 05/26/17 Rivaroxaban [Xarelto] 20 mg PO DAILY 05/26/17 Zolpidem Tartrate [Ambien] 10 mg PO QHS 05/26/17 Amoxicillin/Potassium Clav [Augmentin 875-125 Tablet] 1 each PO Q12 #14 tablet 06/03/17 Benzocaine/Menthol [Chloraseptic Sore Throat Lozenge] 1 each BUCCAL Q4HP PRN lozenge 06/03/17 Hydromorphone HCl [Dilaudid 2 mg Tablet] 4 mg PO Q4HP PRN tablet 06/03/17 History of Present Illness History of Present Illness: CASSANDRA MIDDLETON is a 22 year old female with a history of sickle cell disease, chronic pain opiate and tobacco dependence. She presents with 24 hours of sore throat developing fever prompting evaluation emergency room where she is found to have leukocytosis of 35,000 and left-sided submandibular lymphadenopathy without dental pain. She is diagnosed with strep throat and receives IV penicillin and referred to the hospitalist for admission. Patient complains of acute on chronic back pain receiving IV Dilaudid from ER provider. Patient is asleep upon entering her room intermittently arousable, falling asleep mid sentence and requests more IV Dilaudid. Hospital Course Hospital Course: Patient is a 22-year-old -[place] woman with history of sickle cell disease, anemia, chronic pain, opiate dependence admitted on May, complaining sore throat and she was found to have pharyngitis started on IV antibiotic. She had significant leukocytosis 35,000 that trended down to 26. She did have evidence of fever this admission. She was seen and evaluated by her sales enablement specialist and recommended to transition to p.o. and discharged home. At the time of the dictation of this discharge summary her blood cultures noted with GPC in chains. She was on IV antibiotic initially on Unasyn converted to vancomycin. She was seen and examined this morning and reports feeling better tolerared regular diet. She does have R sided port a cath. Blood cultures will be followed and patient to be contacted as well as her sales enablement specialist. Rx given for augmentin. Updated on 06/04/2017 Blood culture with viridans strep and the results seem to have called to her sales enablement specialist. Physical Exam Vital Signs: Temp Pulse Resp BP Pulse Ox 98.2 F 86 15 96/52 L 99 06/03/17 11:56 06/03/17 11:56 06/03/17 11:56 06/03/17 11:56 06/03/17 11:56 Intake & Output 06/02/17 06/03/17 06/04/17 06:59 06:59 06:59 Intake Total 400 Output Total 2750 1999 Balance -2350 -1999 Weight 52.7 kg General appearance: PRESENT: no acute distress Eye exam: PRESENT: EOMI Mouth exam: PRESENT: moist Throat exam: PRESENT: tonsillar erythema Neck exam: PRESENT: full ROM Respiratory exam: PRESENT: clear to auscultation samaria, unlabored Cardiovascular exam: PRESENT: RRR GI/Abdominal exam: PRESENT: normal bowel sounds, soft Rectal exam: PRESENT: deferred Results Laboratory Results: 06/03/17 05:08 06/03/17 05:08 06/03/17 06/03/17 05:08 05:08 WBC 26.0 H RBC 2.73 L Hgb 9.6 L Hct 27.2 L MCV 100 H MCH 35.1 H MCHC 35.2 RDW 19.7 H Plt Count 410 Seg Neutrophils % Not Reportable Lymphocytes % Not Reportable Monocytes % Not Reportable Eosinophils % Not Reportable Basophils % Not Reportable Absolute Neutrophils Not Reportable Absolute Lymphocytes Not Reportable Absolute Monocytes Not Reportable Absolute Eosinophils Not Reportable Absolute Basophils Not Reportable Sodium 139.9 Potassium 4.0 Chloride 106 Carbon Dioxide 22 Anion Gap 12 BUN 4 L Creatinine 0.42 L Est GFR ( Amer) > 60 Est GFR (Non-Af Amer) > 60 Glucose 88 Calcium 8.9 Total Bilirubin 4.9 H AST 22 ALT 34 Alkaline Phosphatase 71 Total Protein 6.2 L Albumin 3.6 Impressions: Chest X-Ray 06/01/17 23:09 IMPRESSION: No acute cardiopulmonary findings. Qualifiers - * PATEINT BEING DISCHARGED WITH ANY OF THE FOLLOWING DIAGNOSIS?: No VTE patient discharged on overlapping Therapy?: Yes Stroke Pt being discharged on Anti-thrombolytic therapy?: Yes Stroke Pt being discharged on Anti-coagulation therapy?: Yes Stroke Pt being discharged on Statins?: Yes HF Pt discharged on evidence-based Beta Roberta:: Yes Plan Time Spent: Less than 30 Minutes
[2017-06-03 14:16] VITALS: BP 103/48
[2017-06-03] MEDS ORDERED: VANCOMYCIN HCL 750 MG in DEXTROSE 5%-WATER 250 ML IV SCH (18:00)
== END 2017-06-03 15:05 | disposition home or self-care (01) | DRG 812 ==
LOC: ER 21:49 → OBSVTOIN 06-02 01:42 → EH 06-02 01:42 → 2S 06-02 09:20
PROVIDERS: ADMIT Internal Medicine; ATTEND Internal Medicine
DX: D57.00 Hb-SS disease with crisis, unspecified (principal); J02.0 Streptococcal pharyngitis; F41.9 Anxiety disorder, unspecified; F32.9 Major depressive disorder, single episode, unspecified; D72.829 Elevated white blood cell count, unspecified; R59.0 Localized enlarged lymph nodes; Z79.891 Long term (current) use of opiate analgesic; Z86.718 Personal history of other venous thrombosis and embolism; Z90.49 Acquired absence of other specified parts of digestive tract; Z82.49 Family history of ischemic heart disease and other diseases of the circulatory system; Z91.018 Allergy to other foods; Z95.9 Presence of cardiac and vascular implant and graft, unspecified; Z88.6 Allergy status to analgesic agent; Z87.891 Personal history of nicotine dependence
CPT/HCPCS: 36415; 36591; 71046; 80053; 81001; 85025; 85045; 87040; 87077; 87186; 94640; 96361; 96365; 96372; 96375; 96376; 99285; G0378; J0295; J0561; J1170; J1200; J3370; J7030; J7060; J7620

== ENCOUNTER 2017-06-11 02:29 | Emergency (ER) | payer MEDICAID ==
[2017-06-11] MEDS ORDERED: NORMAL SALINE 1000 ML 1,000 ML IV ONE (07:26)
[2017-06-11] MEDS ORDERED: HYDROMORPHONE HCL 2 MG TABLET PO ONE (07:26)
--- NOTE | 2017-06-11 07:58 | RADIOLOGY REPORT (SQ) ---
EXAM DESCRIPTION: CHEST PA/LAT COMPLETED DATE/TIME: 06/11/2017 7:40 am REASON FOR STUDY: wheezing, chest pain, h/o sickle cell COMPARISON: Chest films 02/17/2016, 11/25/2016, 06/01/2017 CT chest 09/26/2016 EXAM PARAMETERS: NUMBER OF VIEWS: two views TECHNIQUE: Digital Frontal and Lateral radiographic views of the chest acquired. RADIATION DOSE: NA LIMITATIONS: none FINDINGS: LUNGS AND PLEURA: No opacities, masses or pneumothorax. No pleural effusion. MEDIASTINUM AND HILAR STRUCTURES: No masses or contour abnormalities. HEART AND VASCULAR STRUCTURES: Heart normal size. No evidence for failure. BONES: No acute changes. 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 HARDWARE: Right permanent central line tip superior vena cava. Clips right upper quadrant post jones cystectomy. OTHER: No other significant finding. IMPRESSION: No acute findings TECHNICAL DOCUMENTATION: JOB ID: [id number] [employer]- All Rights Reserved Reading location - IP/workstation name: [email or web address]
[2017-06-11 07:59] LABS: APPEARANCE,URINE CLEAR; BILIRUBIN,URINE NEGATIVE (NEGATIVE); COLOR,URINE YELLOW; GLUCOSE, URINE NEGATIVE (NEGATIVE); KETONES,URINE NEGATIVE (NEGATIVE); LEUKOCYTE ESTERASE,URINE NEGATIVE (NEGATIVE); NITRITE,URINE NEGATIVE (NEGATIVE); PROTEIN,URINE NEGATIVE (NEGATIVE); URINE SPECIFIC GRAVITY 1.012
[2017-06-11 08:52] LABS: ABSOLUTE RETICS # 0.145 10^6/uL (0.028-0.122); HEMATOCRIT 27.3 % (36.0-47.0); HEMOGLOBIN 9.6 g/dL (12.0-15.5); MEAN CORPUSCULAR HEMOGLOBIN 33.6 pg (27.0-33.4); MEAN CORPUSCULAR HGB CONC 35.2 g/dL (32.0-36.0); PLATELET COUNT 648 10^3/uL (150-450); RED BLOOD COUNT 2.85 10^6/uL (3.72-5.28); RED CELL DISTRIBUTION WIDTH 21.1 % (11.5-14.0); RETICULOCYTE COUNT (AUTO) 5.07 % (0.66-2.85); WHITE BLOOD COUNT 14.5 10^3/uL (4.0-10.5)
[2017-06-11 09:01] LABS: ALANINE AMINOTRANSFERASE 21 U/L (9-52); ALBUMIN 4.1 g/dL (3.5-5.0); ALKALINE PHOSPHATASE 80 U/L (38-126); ANION GAP 11 (5-19); ASPARTATE AMINO TRANSFERASE 31 U/L (14-36); BILIRUBIN,DIRECT 0.2 mg/dL (0.0-0.4); BILIRUBIN,TOTAL 2.6 mg/dL (0.2-1.3); BLOOD UREA NITROGEN 6 mg/dL (7-20); CALCIUM 9.6 mg/dL (8.4-10.2); CARBON DIOXIDE 22 mmol/L (22-30); CHLORIDE 109 mmol/L (98-107); GLUCOSE 86 mg/dL (75-110); POTASSIUM 4.6 mmol/L (3.6-5.0); SODIUM 142.2 mmol/L (137-145); TOTAL PROTEIN 7.1 g/dL (6.3-8.2)
[2017-06-11 09:21] LABS: MEAN CORPUSCULAR VOLUME 96 fl (80-97)
[2017-06-11 09:24] LABS: ABSOLUTE MONOCYTES # (MANUAL) 1.6 10^3/uL (0.1-1.4); ABSOLUTE NEUTROPHILS# (MANUAL) 9.6 10^3/uL (1.7-8.2); ANISOCYTOSIS 3+; BASOPHILS % (MANUAL) 1 % (0-2); EOSINOPHILS % (MANUAL) 1 % (0-6); LYMPHOCYTES % (MANUAL) 21 % (13-45); MONOCYTES % (MANUAL) 11 % (3-13); PLATELET COMMENT INCREASED; POIKILOCYTOSIS 3+; POLYCHROMASIA 2+; SEGMENTED NEUTROPHILS % (MAN) 66 % (42-78); TARGET CELLS SLIGHT; TOTAL CELLS COUNTED 100; TOXIC GRANULATION SLIGHT; TOXIC VACUOLATION PRESENT
[2017-06-11 09:25] LABS: HYPOCHROMASIA 1+; SCHISTOCYTES 1+; SICKLE RED CELLS SLIGHT; SPHEROCYTES SLIGHT
--- NOTE | 2017-06-11 10:12 | ER Document Report ---
ED General - General Chief Complaint: Leg and back pain from SCD Stated Complaint: RIGHT LEG AND BACK PAIN,AND WHEEZING Time Seen by Provider: 06/11/17 07:08 Notes: Patient is a 22-year-old female presents emergency department a chief complaint of wheezing. Patient states that she does have some discomfort consistent with sickle cell crisis that she is comfortable taking her home pain medications for she admits to low back pain and right leg pain which she states is consistent with her baseline. She states that her concerning coming to the ER today was wheezing when she woke up approximately 2 AM. She at this time she denies any wheezing, productive cough, fever, chills, lethargy or weakness. Patient states she does not have a known history of asthma. At this time she denies any chest pain, difficulty breathing. Patient was recently discharged on June 03 for being admission for Sirs criteria secondary to strep pharyngitis. Patient states that upon discharge she was feeling much better. TRAVEL OUTSIDE OF THE [place] IN LAST 30 DAYS: No - Related Data Allergies/Adverse Reactions: morphine Adverse Reaction (Severe, Verified 06/01/17 21:51) RASH,SWELLING jacob peppers Adverse Reaction (Severe, Uncoded 06/01/17 21:51) throat closes Past Medical History - Social History Smoking Status: Former Smoker Chew tobacco use (# tins/day): No Frequency of alcohol use: None Drug Abuse: None Family History: Hypertension, Other - Sickle cell. denies: Arthritis, CAD, COPD , CVA, DM, Hyperlipidemia, Malignancy, Thyroid Disfunction Patient has suicidal ideation: No Patient has homicidal ideation: No - Past Medical History Cardiac Medical History: Reports: Hx DVT - RUE s/p port placement Denies: Hx Congestive Heart Failure, Hx Coronary Artery Disease, Hx Heart Attack, Hx Hypertension, Hx Pulmonary Embolism Pulmonary Medical History: Reports: Hx Bronchitis - once in past per patient, Hx Pneumonia - history in past per patient Denies: Hx Asthma, Hx COPD, Hx Tuberculosis Neurological Medical History: Denies: Hx Cerebrovascular Accident, Hx Migraine, Hx Seizures Renal/ Medical History: Denies: Hx End Stage Renal Disease, Hx Kidney Stones, Hx Peritoneal Dialysis GI Medical History: Denies: Hx Cirrhosis, Hx Gastroesophageal Reflux Disease, Hx Ulcer Musculoskeltal Medical History: Denies Hx Arthritis, Denies Hx Multiple Sclerosis, Reports Hx Musculoskeletal Trauma Psychiatric Medical History: Reports: Hx Anxiety, Hx Depression Denies: Hx Bipolar Disorder, Hx Schizophrenia Past Surgical History: Reports: Hx Cholecystectomy - 06/28/2015, Hx Vascular Surgery - port put in December, - Immunizations Immunizations up to date: Yes Hx Diphtheria, Pertussis, Tetanus Vaccination: Yes Review of Systems - Review of Systems Notes: REVIEW OF SYSTEMS: CONSTITUTIONAL : Denies fever, chills, or sweats. Denies recent illness. EENT: Denies eye, ear, throat, or mouth pain or symptoms. Denies nasal or sinus congestion or discharge. Denies throat, tongue, or mouth swelling or difficulty swallowing. CARDIOVASCULAR: Denies chest pain. Denies palpitations or racing or irregular heart beat. Denies ankle edema. RESPIRATORY: Denies cough, cold, or chest congestion. See HPI GASTROINTESTINAL: Denies abdominal pain or distention. Denies nausea, vomiting , or diarrhea. Denies blood in vomitus, stools, or per rectum. Denies black, tarry stools. Denies constipation. GENITOURINARY: Denies difficulty urinating, painful urination, burning, frequency, blood in urine, or discharge. MUSCULOSKELETAL: Denies any muscle spasms, difficulty walking, extremity pain SKIN: Denies rash, lesions or sores. HEMATOLOGIC : Denies easy bruising or bleeding. LYMPHATIC: Denies swollen, enlarged glands. NEUROLOGICAL: Denies confusion or altered mental status. Denies passing out or loss of consciousness. Denies dizziness or lightheadedness. Denies headache. Denies weakness or paralysis or loss of use of either side. Denies problems with gait or speech. Denies sensory loss, numbness, or tingling. Denies seizures. PSYCHIATRIC: Denies anxiety or stress. Denies depression, suicidal ideation, or homicidal ideation. ALL OTHER SYSTEMS REVIEWED AND NEGATIVE. Dictation was performed using [employer] voice recognition software Physical Exam - Vital signs Vitals: Temp Pulse Resp BP Pulse Ox 98.3 F 89 16 115/57 L 96 06/11/17 02:42 06/11/17 02:42 06/11/17 02:42 06/11/17 02:42 06/11/17 02:42 Course - Re-evaluation Re-evalutation: 06/11/17 10:10 Patient is a 22-year-old female is hemodynamically stable, no acute distress afebrile. Patient states that her pain is much improved after her home dose of Dilaudid and IV fluids. Presentation is most consistent with an uncomplicated sickle cell pain crisis. Patient has no evidence of an aplastic crisis on labs. Vitals and history are not consistent with acute chest syndrome. Vitals have remained within normal limits here in the emergency department. Patient's pain has been able to be controlled using home PO analgesia. Regarding her subjective wheezing, and benign physical exam. No concerns for underlying pneumonia, URI, bronchitis. Patient without any chest pain, dyspnea on exertion or shortness of breath. Did review case with patient's primary crossbar frame wirer Dr Moreira who recommended sending her home on a Medrol Dosepak as well as a rescue inhaler. At this time will discharge with return precautions and follow-up recommendations. Verbal discharge instructions given a the bedside and opportunity for questions given. Medication warnings reviewed. Patient is in agreement with this plan and has verbalized understanding of return precautions and the need for primary care follow-up in the next 24-72 hours. - Vital Signs Vital signs: Temp Pulse Resp BP Pulse Ox 99.1 F 89 25 H 90/53 L 99 06/11/17 11:17 06/11/17 02:42 06/11/17 10:38 06/11/17 10:38 06/11/17 10:38 - Laboratory Result Diagrams: 06/11/17 08:23 06/11/17 08:23 Laboratory results interpreted by me: 06/11/17 06/11/17 06/11/17 04:45 08:23 08:23 WBC 14.5 H RBC 2.85 L Hgb 9.6 L Hct 27.3 L MCH 33.6 H RDW 21.1 H Plt Count 648 H Abs Neuts (Manual) 9.6 H Abs Monocytes (Manual) 1.6 H Retic Count (auto) 5.07 H Absolute Retic 0.145 H Chloride 109 H BUN 6 L Creatinine 0.47 L Total Bilirubin 2.6 H Urine Urobilinogen 2.0 H - Diagnostic Test Radiology reviewed: Image reviewed, Reports reviewed Discharge - Discharge Clinical Impression: Wheezing Sickle cell anemia Qualifiers: Sickle-cell associated disorders: without crisis Qualified Code(s): D57.1 - Sickle-cell disease without crisis Condition: Good Disposition: HOME, SELF-CARE Instructions: Upper Respiratory Illness ([facility]) Additional Instructions: Please continue taking home medications as directed. Please follow-up with Dr. Mendez office in 1-2 weeks. Please take the steroids as directed on the blister pack and inhaler as needed. Prescriptions: Albuterol Sulfate [Proair HFA Inhalation Aerosol 8.5 gm MDI] 1 puff IH Q4 PRN # 1 mdi PRN Reason: Methylprednisolone [Medrol Dosepack (4 mg/Tab) 21 Tab/Dosepak] 4 mg PO ASDIR PRN #21 tab.ds.pk PRN Reason: Referrals: JOIE MOREIRA MD [ACTIVE STAFF] - Follow up in 1 week
[2017-06-11 10:47] VITALS: BP 90/53
== END 2017-06-11 11:17 | disposition home or self-care (01) ==
LOC: ER 02:29
DX: D57.1 Sickle-cell disease without crisis (principal); R06.2 Wheezing; M79.604 Pain in right leg; M54.5 Low back pain; M54.9 Dorsalgia, unspecified; Z87.891 Personal history of nicotine dependence; Z86.718 Personal history of other venous thrombosis and embolism
CPT/HCPCS: 36591; 99284; 96361; 96374; 36415; 85025; 81025; 85045; 80053; 81001; 71046; J3490; J7030

== ENCOUNTER 2017-06-12 12:08 | Emergency (ER) | payer MEDICAID ==
--- NOTE | 2017-06-12 13:09 | ER Document Report ---
HPI - HPI Pain Level: 3 Notes: Patient is a 22-year-old female with a history of sickle cell who presents to the ED complaining of right knee pain. Patient states that this right knee pain does not feel like a sickle cell crisis to her and feels like she injured it like she has in the past. Patient states that she is ambulatory, but does limp on occasion. Patient states that when she does have pain it is to the joint line medially and laterally. Patient states that this pain has been ongoing for the last month. Patient has not noticed any redness, swelling, or fever. The pain does not radiate. Patient states that she was evaluated yesterday for wheezing and concern of his sickle cell crisis at that time. Patient had an unremarkable workup. Patient states that most of those symptoms have since resolved from yesterday, but does continue to have right knee pain. No other concerns or complaints at this time. She is eating and drinking without any difficulties. She is urinating normally and having normal bowel movements. Denies any headache, fever, neck pain, URI, sore throat, chest pain , palpitations, syncope, cough, shortness of breath, wheeze, dyspnea, abdominal pain, nausea/vomiting/diarrhea, urinary retention, dysuria, hematuria, loss of control of bowel or bladder, numbness/tingling, saddle anesthesia, muscle paralysis/weakness, or rash. - ROS Systems Reviewed and Negative: Yes All other systems reviewed and negative - REPRODUCTIVE Reproductive: DENIES: : - MUSCULOSKELETAL Musculoskeletal: REPORTS: Extremity pain - right knee Past Medical History - Social History Smoking Status: Never Smoker Chew tobacco use (# tins/day): No Frequency of alcohol use: None Drug Abuse: None Family History: Hypertension, Other - Sickle cell. denies: Arthritis, CAD, COPD , CVA, DM, Hyperlipidemia, Malignancy, Thyroid Disfunction Patient has suicidal ideation: No Patient has homicidal ideation: No - Past Medical History Cardiac Medical History: Reports: Hx DVT - RUE s/p port placement Denies: Hx Congestive Heart Failure, Hx Coronary Artery Disease, Hx Heart Attack, Hx Hypertension, Hx Pulmonary Embolism Pulmonary Medical History: Reports: Hx Bronchitis - once in past per patient, Hx Pneumonia - history in past per patient Denies: Hx Asthma, Hx COPD, Hx Tuberculosis Neurological Medical History: Denies: Hx Cerebrovascular Accident, Hx Migraine, Hx Seizures Renal/ Medical History: Denies: Hx End Stage Renal Disease, Hx Kidney Stones, Hx Peritoneal Dialysis GI Medical History: Denies: Hx Cirrhosis, Hx Gastroesophageal Reflux Disease, Hx Ulcer Musculoskeltal Medical History: Denies Hx Arthritis, Denies Hx Multiple Sclerosis, Reports Hx Musculoskeletal Trauma Psychiatric Medical History: Reports: Hx Anxiety, Hx Depression - anxiety Denies: Hx Bipolar Disorder, Hx Schizophrenia Past Surgical History: Reports: Hx Cholecystectomy - 06/28/2015, Hx Vascular Surgery - port put in December, - Immunizations Immunizations up to date: Yes Hx Diphtheria, Pertussis, Tetanus Vaccination: Yes Vertical Provider Document - CONSTITUTIONAL Agree With Documented VS: Yes Notes: PHYSICAL EXAMINATION: GENERAL: Well-appearing, well-nourished and in no acute distress. NECK: Normal range of motion, supple without lymphadenopathy LUNGS: Breath sounds clear to auscultation bilaterally and equal. No wheezes rales or rhonchi. HEART: Regular rate and rhythm without murmurs, rubs, gallops. Musculoskeletal: Rt knee: FROM to passive/active. Strength 5+/5. No erythema, warmth, swelling, or effusion noted. + mild tenderness to the med/lat joint line. Ligamentous stable. Ana grossly negative. Patellar grind neg. Extremities: No cyanosis, clubbing, or edema b/l. Peripheral pulses 2+. Capillary refill less than 3 seconds. NEUROLOGICAL: Normal speech, normal gait. Normal sensory, motor exams PSYCH: Normal mood, normal affect. SKIN: Warm, Dry, normal turgor, no rashes or lesions noted. - INFECTION CONTROL TRAVEL OUTSIDE OF THE [place] IN LAST 30 DAYS: No - RESPIRATORY O2 Sat by Pulse Oximetry: 96 Course - Re-evaluation Re-evalutation: 06/12/17 13:45 Patient is an afebrile, well-hydrated, 22-year-old female who presents to the ED with right knee pain, suspect inflammatory. Vitals are acceptable. PE is otherwise unremarkable for any focal neurological deficit, neurovascular compromise, obvious tendon/ligament rupture, obvious fracture/dislocation, septic joint, sickle cell crisis. Patient had an unremarkable thorough workup yesterday including blood work and imaging aside from an knee x-ray. Knee x- ray today was unremarkable for any acute pathology. Patient has been seen multiple times in the last few months for various complaints. Recommend conservative measures for symptoms. Recheck with your PCM in 3-5 days. Schedule an appoint with orthopedics for further evaluation and management. Return to the ED with any worsening/concerning symptoms otherwise as reviewed discharge. Patient is in agreement. - Vital Signs Vital signs: Temp Pulse Resp BP Pulse Ox 98.7 F 100 16 111/58 L 96 06/12/17 12:11 06/12/17 12:11 06/12/17 12:11 06/12/17 12:11 06/12/17 12:11 Discharge - Discharge Clinical Impression: Right knee pain Qualifiers: Chronicity: acute Qualified Code(s): M25.561 - Pain in right knee Condition: Stable Disposition: HOME, SELF-CARE Instructions: Ice & Elevation ([facility]) Additional Instructions: Rest, Ice, Compression, Elevation Tylenol/ibuprofen as needed Light stretches daily Strength exercises as able Moist heat and massage may help F/u with your PCP in 3-5 days for a recheck Schedule a consult(s) with Orthopedics/physical therapy for ongoing/worsening symptoms Return to the ED with any worsening symptoms and/or development of fever, headache, chest pain, palpitations, syncope, shortness of breath, trouble breathing, abdominal pain, n/v/d, muscle weakness/paralysis, numbness/tingling, swelling, redness, or other worsening symptoms that are concerning to you. Referrals: [facility] [Provider Group] - Follow up as needed
--- NOTE | 2017-06-12 13:29 | RADIOLOGY REPORT (SQ) ---
EXAM DESCRIPTION: KNEE RIGHT 4 VIEWS COMPLETED DATE/TIME: 06/12/2017 1:20 pm REASON FOR STUDY: rt knee pain COMPARISON: None. NUMBER OF VIEWS: Four views. TECHNIQUE: AP, lateral, and both oblique radiographic images acquired of the right knee. LIMITATIONS: None. FINDINGS: MINERALIZATION: Normal. BONES: No acute fracture or dislocation. No worrisome bone lesions. No significant osteophytes. JOINT: No effusion. No chondrocalcinosis. OTHER: No other significant finding. IMPRESSION: NEGATIVE STUDY OF THE RIGHT KNEE. NO EXPLANATION FOR PAIN. TECHNICAL DOCUMENTATION: JOB ID: [id number] [employer]- All Rights Reserved Reading location - IP/workstation name: [email or web address]
[2017-06-12 14:36] VITALS: BP 93/53
== END 2017-06-12 14:38 | disposition home or self-care (01) ==
LOC: ER 12:08
DX: M25.561 Pain in right knee (principal); D57.1 Sickle-cell disease without crisis; Z86.718 Personal history of other venous thrombosis and embolism
CPT/HCPCS: 99283

== ENCOUNTER 2017-06-16 03:41 | Emergency (ER) | payer MEDICAID ==
[2017-06-16] MEDS ORDERED: ONDANSETRON HCL INJ/PF 4 MG/2 ML SDV IV ONE (04:21)
[2017-06-16] MEDS ORDERED: NORMAL SALINE 1000 ML 1,000 ML IV ONE (04:21)
[2017-06-16] MEDS ORDERED: FENTANYL CITRATE INJ/PF 100 MCG/2 ML AMPUL IV ONE (04:23)
--- NOTE | 2017-06-16 04:25 | ER Document Report ---
ED General - General Chief Complaint: Sickle Cell Crisis Stated Complaint: LOWER BACK PAIN Time Seen by Provider: 06/16/17 04:11 Mode of Arrival: Ambulatory Information source: Patient Notes: Patient presents complaining of low back pain since yesterday. Patient has a history of sickle cell disease and is concerned that she may be in crisis. Patient denies any fever or vomiting. Patient does report nausea and diarrhea. Patient does report some urinary frequency. Patient states that she suspects her frequency is due to her increase oral intake in attempts to stay well- hydrated. TRAVEL OUTSIDE OF THE [place] IN LAST 30 DAYS: No - HPI Onset: Yesterday Onset/Duration: Gradual Quality of pain: Achy Pain Level: 4 Associated symptoms: Diarrhea, Nausea. denies: Chest pain, Nonproductive cough , Productive cough, Fever, Vomiting Exacerbated by: Denies Relieved by: Denies Similar symptoms previously: Yes Recently seen / treated by doctor: No - Related Data Allergies/Adverse Reactions: morphine Adverse Reaction (Severe, Verified 06/12/17 13:08) RASH,SWELLING jacob peppers Adverse Reaction (Severe, Uncoded 06/12/17 13:08) throat closes Past Medical History - General Information source: Patient - Social History Smoking Status: Never Smoker Frequency of alcohol use: None Drug Abuse: None Occupation: [employer] Lives with: Family Family History: Hypertension, Other - Sickle cell. denies: Arthritis, CAD, COPD , CVA, DM, Hyperlipidemia, Malignancy, Thyroid Disfunction - Medical History Medical History: Other - SSD - Past Medical History Cardiac Medical History: Reports: Hx DVT - RUE s/p port placement Denies: Hx Congestive Heart Failure, Hx Coronary Artery Disease, Hx Heart Attack, Hx Hypertension, Hx Pulmonary Embolism Pulmonary Medical History: Reports: Hx Bronchitis - once in past per patient, Hx Pneumonia - history in past per patient Denies: Hx Asthma, Hx COPD, Hx Tuberculosis Neurological Medical History: Denies: Hx Cerebrovascular Accident, Hx Migraine, Hx Seizures Renal/ Medical History: Denies: Hx End Stage Renal Disease, Hx Kidney Stones, Hx Peritoneal Dialysis GI Medical History: Denies: Hx Cirrhosis, Hx Gastroesophageal Reflux Disease, Hx Ulcer Musculoskeltal Medical History: Denies Hx Arthritis, Denies Hx Multiple Sclerosis, Reports Hx Musculoskeletal Trauma Psychiatric Medical History: Reports: Hx Anxiety, Hx Depression - anxiety Denies: Hx Bipolar Disorder, Hx Schizophrenia Past Surgical History: Reports: Hx Cholecystectomy - 06/28/2015, Hx Vascular Surgery - port put in December, - Immunizations Immunizations up to date: Yes Hx Diphtheria, Pertussis, Tetanus Vaccination: Yes Review of Systems - Review of Systems Constitutional: No symptoms reported. denies: Fever EENT: No symptoms reported Cardiovascular: No symptoms reported. denies: Chest pain Respiratory: No symptoms reported. denies: Cough, Short of breath Gastrointestinal: Diarrhea, Nausea. denies: Abdominal pain, Vomiting, Poor fluid intake Genitourinary: Flank pain. denies: Dysuria Female Genitourinary: No symptoms reported Musculoskeletal: Back pain Skin: No symptoms reported Hematologic/Lymphatic: No symptoms reported Neurological/Psychological: No symptoms reported Physical Exam - Vital signs Vitals: Temp Pulse Resp BP Pulse Ox 97.9 F 86 16 104/55 L 97 06/16/17 03:54 06/16/17 03:54 06/16/17 03:54 06/16/17 03:54 06/16/17 03:54 - General General appearance: Appears well, Alert In distress: None - HEENT Head: Normocephalic, Atraumatic Eyes: Normal Nasal: Normal Mouth/Lips: Normal Mucous membranes: Normal Neck: Normal, Supple. No: Lymphadenopathy - Respiratory Respiratory status: No respiratory distress Chest status: Nontender Breath sounds: Normal. No: Rales, Rhonchi, Stridor, Wheezing Chest palpation: Normal - Cardiovascular Rhythm: Regular Heart sounds: S1 appreciated, S2 appreciated Murmur: No - Abdominal Inspection: Normal Distension: No distension Bowel sounds: Normal Tenderness: Nontender Organomegaly: No organomegaly - Back Back: Tender - bilat lumbar paraspinal - Extremities General upper extremity: Normal inspection, Normal ROM General lower extremity: Normal inspection, Normal ROM - Neurological Neuro grossly intact: Yes Cognition: Normal [place] Coma Scale Eye Opening: Spontaneous [place] Coma Scale Verbal: Oriented [place] Coma Scale Motor: Obeys Commands [place] Coma Scale Total: 15 - Psychological Associated symptoms: Normal affect, Normal mood - Skin Skin Temperature: Warm Skin Moisture: Dry Skin Color: Normal Course - Re-evaluation Re-evalutation: 06/16/17 06:48 Patient sleeping, arouses easily to voice. Consulted with Dr. Kaitlin sweeney patient presentation to ER. Agrees with discharge plan of care. Advises having patient come by the office today if she is needing additional pain medications. Does not recommend writing any prescription for pain medication at this time. - Vital Signs Vital signs: Temp Pulse Resp BP Pulse Ox 97.9 F 86 16 104/55 L 97 06/16/17 03:54 06/16/17 03:54 06/16/17 03:54 06/16/17 03:54 06/16/17 03:54 - Laboratory Result Diagrams: 06/16/17 04:45 06/16/17 04:45 Laboratory results interpreted by me: 06/16/17 06/16/17 06/16/17 04:45 04:45 05:57 WBC 12.8 H RBC 2.80 L Hgb 9.6 L Hct 26.4 L MCH 34.3 H MCHC 36.4 H RDW 20.9 H Plt Count 590 H Retic Count (auto) 4.16 H Total Bilirubin 3.3 H Urine Urobilinogen 4.0 H Labs- Entire Visit 06/16/17 06/16/17 06/16/17 04:45 04:45 04:45 WBC 12.8 H RBC 2.80 L Hgb 9.6 L Hct 26.4 L MCV 94 MCH 34.3 H MCHC 36.4 H RDW 20.9 H Plt Count 590 H Total Counted 100 Seg Neutrophils % Not Reportable Seg Neuts % (Manual) 55 Lymphocytes % Not Reportable Lymphocytes % (Manual) 31 Monocytes % Not Reportable Monocytes % (Manual) 11 Eosinophils % Not Reportable Eosinophils % (Manual) 2 Basophils % Not Reportable Basophils % (Manual) 1 Absolute Neutrophils Not Reportable Abs Neuts (Manual) 7.0 Absolute Lymphocytes Not Reportable Abs Lymphs (Manual) 4.0 Absolute Monocytes Not Reportable Abs Monocytes (Manual) 1.4 Absolute Eosinophils Not Reportable Absolute Eos (Manual) 0.3 Absolute Basophils Not Reportable Abs Basophils (Manual) 0.1 Nucleated RBCs 2 Toxic Granulation 1+ Platelet Comment ADEQUATE Poikilocytosis 1+ Anisocytosis 3+ Sickle Cells SLIGHT [place] Cells SLIGHT Schistocytes 1+ Retic Count (auto) 4.16 H Absolute Retic 0.117 Sodium 142.0 Potassium 4.2 Chloride 105 Carbon Dioxide 26 Anion Gap 11 BUN 10 Creatinine 0.58 Est GFR ( Amer) > 60 Est GFR (Non-Af Amer) > 60 Glucose 83 Calcium 9.2 Total Bilirubin 3.3 H Direct Bilirubin 0.1 Neonat Total Bilirubin Not Reportable Neonat Direct Bilirubin Not Reportable Neonat Indirect Bili Not Reportable AST 19 ALT 21 Alkaline Phosphatase 100 Total Protein 7.0 Albumin 4.2 Serum HCG, Qual NEGATIVE Urine Color Urine Appearance Urine pH Ur Specific [place] Urine Protein Urine Glucose (UA) Urine Ketones Urine Blood Urine Nitrite Urine Bilirubin Urine Urobilinogen Ur Leukocyte Esterase Urine WBC (Auto) Urine RBC (Auto) Squamous Epi Cells Auto Urine Mucus (Auto) Urine Ascorbic Acid 06/16/17 05:57 WBC RBC Hgb Hct MCV MCH MCHC RDW Plt Count Total Counted Seg Neutrophils % Seg Neuts % (Manual) Lymphocytes % Lymphocytes % (Manual) Monocytes % Monocytes % (Manual) Eosinophils % Eosinophils % (Manual) Basophils % Basophils % (Manual) Absolute Neutrophils Abs Neuts (Manual) Absolute Lymphocytes Abs Lymphs (Manual) Absolute Monocytes Abs Monocytes (Manual) Absolute Eosinophils Absolute Eos (Manual) Absolute Basophils Abs Basophils (Manual) Nucleated RBCs Toxic Granulation Platelet Comment Poikilocytosis Anisocytosis Sickle Cells [place] Cells Schistocytes Retic Count (auto) Absolute Retic Sodium Potassium Chloride Carbon Dioxide Anion Gap BUN Creatinine Est GFR ( Amer) Est GFR (Non-Af Amer) Glucose Calcium Total Bilirubin Direct Bilirubin Neonat Total Bilirubin Neonat Direct Bilirubin Neonat Indirect Bili AST ALT Alkaline Phosphatase Total Protein Albumin Serum HCG, Qual Urine Color YELLOW Urine Appearance CLEAR Urine pH 7.0 Ur Specific [place] 1.011 Urine Protein NEGATIVE Urine Glucose (UA) NEGATIVE Urine Ketones NEGATIVE Urine Blood NEGATIVE Urine Nitrite NEGATIVE Urine Bilirubin NEGATIVE Urine Urobilinogen 4.0 H Ur Leukocyte Esterase NEGATIVE Urine WBC (Auto) 1 Urine RBC (Auto) 1 Squamous Epi Cells Auto <1 Urine Mucus (Auto) RARE Urine Ascorbic Acid NEGATIVE Discharge - Discharge Clinical Impression: Hx of sickle cell disease, Chronically on opiate therapy Low back pain Qualifiers: Chronicity: unspecified Back pain laterality: bilateral Sciatica presence: without sciatica Qualified Code(s): M54.5 - Low back pain Condition: Stable Disposition: HOME, SELF-CARE Instructions: Low Back Pain ([facility]), Sickle Cell Crisis ([facility]) Additional Instructions: Return immediately for any new or worsening symptoms Followup with your primary care provider, call tomorrow to make a followup appointment Follow-up with Dr. Baum's office today Referrals: JOIE BAUM MD [ACTIVE STAFF] - Follow up as needed
[2017-06-16 04:57] LABS: ABSOLUTE RETICS # 0.117 10^6/uL (0.028-0.122); HEMATOCRIT 26.4 % (36.0-47.0); HEMOGLOBIN 9.6 g/dL (12.0-15.5); MEAN CORPUSCULAR HEMOGLOBIN 34.3 pg (27.0-33.4); MEAN CORPUSCULAR HGB CONC 36.4 g/dL (32.0-36.0); MEAN CORPUSCULAR VOLUME 94 fl (80-97); PLATELET COUNT 590 10^3/uL (150-450); RED CELL DISTRIBUTION WIDTH 20.9 % (11.5-14.0); RETICULOCYTE COUNT (AUTO) 4.16 % (0.66-2.85); WHITE BLOOD COUNT 12.8 10^3/uL (4.0-10.5)
[2017-06-16 05:13] LABS: ALANINE AMINOTRANSFERASE 21 U/L (9-52); ALBUMIN 4.2 g/dL (3.5-5.0); ALKALINE PHOSPHATASE 100 U/L (38-126); ANION GAP 11 (5-19); ASPARTATE AMINO TRANSFERASE 19 U/L (14-36); BILIRUBIN,DIRECT 0.1 mg/dL (0.0-0.4); BILIRUBIN,TOTAL 3.3 mg/dL (0.2-1.3); BLOOD UREA NITROGEN 10 mg/dL (7-20); CALCIUM 9.2 mg/dL (8.4-10.2); CARBON DIOXIDE 26 mmol/L (22-30); CHLORIDE 105 mmol/L (98-107); GLUCOSE 83 mg/dL (75-110); POTASSIUM 4.2 mmol/L (3.6-5.0)
[2017-06-16 05:25] LABS: ABSOLUTE MONOCYTES # (MANUAL) 1.4 10^3/uL (0.1-1.4); BASOPHILS % (MANUAL) 1 % (0-2); EOSINOPHILS % (MANUAL) 2 % (0-6); LYMPHOCYTES % (MANUAL) 31 % (13-45); MONOCYTES % (MANUAL) 11 % (3-13); NUCLEATED RED BLOOD CELLS 2 /100 WBC (0); SEGMENTED NEUTROPHILS % (MAN) 55 % (42-78); TOTAL CELLS COUNTED 100
[2017-06-16 05:32] LABS: ANISOCYTOSIS 3+; BURR CELLS SLIGHT; POIKILOCYTOSIS 1+; SCHISTOCYTES 1+; SICKLE RED CELLS SLIGHT; TOXIC GRANULATION 1+
[2017-06-16 05:33] LABS: PLATELET COMMENT ADEQUATE
[2017-06-16 06:11] LABS: APPEARANCE,URINE CLEAR; BILIRUBIN,URINE NEGATIVE (NEGATIVE); COLOR,URINE YELLOW; GLUCOSE, URINE NEGATIVE (NEGATIVE); KETONES,URINE NEGATIVE (NEGATIVE); LEUKOCYTE ESTERASE,URINE NEGATIVE (NEGATIVE); NITRITE,URINE NEGATIVE (NEGATIVE); PROTEIN,URINE NEGATIVE (NEGATIVE); URINE SPECIFIC GRAVITY 1.011
[2017-06-16 07:03] VITALS: BP 103/54
== END 2017-06-16 07:14 | disposition home or self-care (01) ==
LOC: ER 03:41
DX: M54.5 Low back pain (principal); D57.1 Sickle-cell disease without crisis; Z79.891 Long term (current) use of opiate analgesic; R11.0 Nausea; R19.7 Diarrhea, unspecified; R35.0 Frequency of micturition; R10.9 Unspecified abdominal pain
CPT/HCPCS: 36591; 99284; 96361; 96374; 96375; 36415; 84703; 85025; 85045; 80053; 81001; J3010; J2405; J7030

== ENCOUNTER 2017-06-19 11:22 | Emergency (ER) | payer MEDICAID ==
--- NOTE | 2017-06-19 13:23 | ER Document Report ---
ED General Pain - General Chief Complaint: Sickle Cell Crisis Stated Complaint: POSSIBLE SICKLE CELL CRISIS Time Seen by Provider: 06/19/17 13:16 Notes: This is a 22-year-old female patient with history of sickle cell disease presents emergency department complaining of pain in the left arm and pain in the left leg. No fever. No chills. No sweats. Seen here recently for the same. Followed by local event specialist food demonstrator. Denies any shortness of breath or chest pain at this time. TRAVEL OUTSIDE OF THE [place] IN LAST 30 DAYS: No - HPI Onset: Yesterday Onset/Duration: Gradual, Persistent, Worse Quality of pain: Throbbing - Related Data Allergies/Adverse Reactions: morphine Adverse Reaction (Severe, Verified 06/19/17 12:39) RASH,SWELLING jacob peppers Adverse Reaction (Severe, Uncoded 06/19/17 12:39) throat closes Past Medical History - General Information source: Patient - Social History Smoking Status: Never Smoker Chew tobacco use (# tins/day): No Frequency of alcohol use: None Drug Abuse: None Lives with: Family Family History: Hypertension, Other - Sickle cell. denies: Arthritis, CAD, COPD , CVA, DM, Hyperlipidemia, Malignancy, Thyroid Disfunction Patient has suicidal ideation: No Patient has homicidal ideation: No - Past Medical History Cardiac Medical History: Reports: Hx DVT - RUE s/p port placement Denies: Hx Congestive Heart Failure, Hx Coronary Artery Disease, Hx Heart Attack, Hx Hypertension, Hx Pulmonary Embolism Pulmonary Medical History: Reports: Hx Bronchitis - once in past per patient, Hx Pneumonia - history in past per patient Denies: Hx Asthma, Hx COPD, Hx Tuberculosis Neurological Medical History: Denies: Hx Cerebrovascular Accident, Hx Migraine, Hx Seizures Renal/ Medical History: Denies: Hx End Stage Renal Disease, Hx Kidney Stones, Hx Peritoneal Dialysis GI Medical History: Denies: Hx Cirrhosis, Hx Gastroesophageal Reflux Disease, Hx Ulcer Musculoskeltal Medical History: Denies Hx Arthritis, Denies Hx Multiple Sclerosis, Reports Hx Musculoskeletal Trauma Psychiatric Medical History: Reports: Hx Anxiety, Hx Depression - anxiety Denies: Hx Bipolar Disorder, Hx Schizophrenia Past Surgical History: Reports: Hx Cholecystectomy - 06/28/2015, Hx Vascular Surgery - port put in December, - Immunizations Immunizations up to date: Yes Hx Diphtheria, Pertussis, Tetanus Vaccination: Yes Review of Systems - Review of Systems Constitutional: No symptoms reported EENT: No symptoms reported Cardiovascular: No symptoms reported Respiratory: No symptoms reported Gastrointestinal: No symptoms reported Genitourinary: No symptoms reported Female Genitourinary: No symptoms reported Musculoskeletal: See HPI, Other - Left arm pain, left leg pain Skin: No symptoms reported Hematologic/Lymphatic: See HPI, Other - Sickle cell anemia Neurological/Psychological: No symptoms reported Physical Exam - Vital signs Vitals: Temp Pulse Resp BP Pulse Ox 97.9 F 80 18 115/58 L 96 06/19/17 11:33 06/19/17 11:33 06/19/17 11:33 06/19/17 11:33 06/19/17 11:33 Interpretation: Normal - General General appearance: Appears well, Alert - HEENT Head: Normocephalic, Atraumatic Eyes: Normal Pupils: PERRL - Respiratory Respiratory status: No respiratory distress Chest status: Nontender Breath sounds: Normal Chest palpation: Normal - Cardiovascular Rhythm: Regular Heart sounds: Normal auscultation Murmur: No - Abdominal Inspection: Normal Distension: No distension Bowel sounds: Normal Tenderness: Nontender Organomegaly: No organomegaly - Back Back: Normal, Nontender - Extremities General upper extremity: Normal inspection, Nontender, Normal color, Normal ROM , Normal temperature General lower extremity: Normal inspection, Nontender, Normal color, Normal ROM , Normal temperature, Normal weight bearing. No: Glen's sign - Neurological Neuro grossly intact: Yes Cognition: Normal Orientation: AAOx4 [place] Coma Scale Eye Opening: Spontaneous Sina Coma Scale Verbal: Oriented [place] Coma Scale Motor: Obeys Commands [place] Coma Scale Total: 15 Speech: Normal Motor strength normal: LUE, RUE, LLE, RLE Sensory: Normal - Psychological Associated symptoms: Normal affect, Normal mood - Skin Skin Temperature: Warm Skin Moisture: Dry Skin Color: Normal Course - Re-evaluation Re-evalutation: 06/19/17 16:28 A normal exam. Well-appearing. Normal vital signs. No acute distress. Will order fluids and some pain meds. Will check labs and reassess. 06/19/17 17:36 Patient feeling bettter. Wants to go home. Consulted with event specialist food demonstrator, Dr. Russ. States that she is comfortable with her labs. Will recommend close follow-up. Patient DC at this time. 06/19/17 17:38 - Vital Signs Vital signs: Temp Pulse Resp BP Pulse Ox 97.9 F 80 18 115/58 L 96 06/19/17 11:33 06/19/17 11:33 06/19/17 11:33 06/19/17 11:33 06/19/17 11:33 - Laboratory Result Diagrams: 06/19/17 15:45 06/19/17 15:45 Laboratory results interpreted by me: 06/19/17 06/19/17 15:45 15:45 WBC 24.3 H RBC 2.93 L Hgb 9.7 L Hct 27.7 L RDW 21.2 H Plt Count 551 H Seg Neuts % (Manual) 84 H Lymphocytes % (Manual) 10 L Abs Neuts (Manual) 20.4 H Retic Count (auto) 6.74 H Absolute Retic 0.198 H Chloride 108 H Total Bilirubin 4.2 H Direct Bilirubin 0.5 H Discharge - Discharge Clinical Impression: Sickle cell anemia Qualifiers: Sickle-cell associated disorders: with unspecified crisis Qualified Code(s): D57.00 - Hb-SS disease with crisis, unspecified; D57.0 - Hb-SS disease with crisis Condition: Good Disposition: HOME, SELF-CARE Instructions: Sickle Cell Crisis ([facility]) Additional Instructions: Return immediately for fever, worsening symptoms or concerns. Referrals: JOIE MOREIRA MD [Primary Care Provider] - Follow up as needed
[2017-06-19] MEDS ORDERED: NORMAL SALINE 1000 ML 1,000 ML IV ONE ×2 (13:37→17:15)
[2017-06-19] MEDS ORDERED: KETOROLAC TROMETHAMINE INJ/PF 30 MG/1 ML SDV IV ONE (13:37)
[2017-06-19] MEDS ORDERED: FENTANYL CITRATE INJ/PF 100 MCG/2 ML AMPUL IV ONE ×2 (13:38→16:26)
[2017-06-19 16:12] LABS: ABSOLUTE RETICS # 0.198 10^6/uL (0.028-0.122); HEMATOCRIT 27.7 % (36.0-47.0); HEMOGLOBIN 9.7 g/dL (12.0-15.5); MEAN CORPUSCULAR HEMOGLOBIN 33.1 pg (27.0-33.4); MEAN CORPUSCULAR VOLUME 95 fl (80-97); PLATELET COUNT 551 10^3/uL (150-450); RED BLOOD COUNT 2.93 10^6/uL (3.72-5.28); RED CELL DISTRIBUTION WIDTH 21.2 % (11.5-14.0); RETICULOCYTE COUNT (AUTO) 6.74 % (0.66-2.85); WHITE BLOOD COUNT 24.3 10^3/uL (4.0-10.5)
[2017-06-19 16:28] LABS: ALANINE AMINOTRANSFERASE 21 U/L (9-52); ALBUMIN 4.1 g/dL (3.5-5.0); ALKALINE PHOSPHATASE 80 U/L (38-126); ANION GAP 10 (5-19); ASPARTATE AMINO TRANSFERASE 25 U/L (14-36); BILIRUBIN,DIRECT 0.5 mg/dL (0.0-0.4); BILIRUBIN,TOTAL 4.2 mg/dL (0.2-1.3); BLOOD UREA NITROGEN 8 mg/dL (7-20); CALCIUM 9.4 mg/dL (8.4-10.2); CARBON DIOXIDE 26 mmol/L (22-30); CHLORIDE 108 mmol/L (98-107); GLUCOSE 100 mg/dL (75-110); POTASSIUM 3.8 mmol/L (3.6-5.0); SODIUM 143.6 mmol/L (137-145); TOTAL PROTEIN 7.1 g/dL (6.3-8.2)
[2017-06-19 16:39] LABS: ABSOLUTE LYMPHOCYTES# (MANUAL) 2.4 10^3/uL (0.5-4.7); ABSOLUTE NEUTROPHILS# (MANUAL) 20.4 10^3/uL (1.7-8.2); BASOPHILS % (MANUAL) 0 % (0-2); EOSINOPHILS % (MANUAL) 2 % (0-6); LYMPHOCYTES % (MANUAL) 10 % (13-45); MONOCYTES % (MANUAL) 4 % (3-13); SEGMENTED NEUTROPHILS % (MAN) 84 % (42-78); TOTAL CELLS COUNTED 100
[2017-06-19 16:42] LABS: ANISOCYTOSIS 2+; PLATELET COMMENT INCREASED; POIKILOCYTOSIS 2+; POLYCHROMASIA SLIGHT; TARGET CELLS 2+; TOXIC VACUOLATION PRESENT
[2017-06-19 16:45] LABS: SICKLE RED CELLS SLIGHT
[2017-06-19 18:13] VITALS: BP 132/80
== END 2017-06-19 18:14 | disposition home or self-care (01) ==
LOC: ER 11:22
DX: D57.00 Hb-SS disease with crisis, unspecified (principal); Z86.718 Personal history of other venous thrombosis and embolism; Z90.49 Acquired absence of other specified parts of digestive tract; Z88.6 Allergy status to analgesic agent
CPT/HCPCS: 96376; 99284; 96361; 96374; 96375; 36415; 85025; 85045; 80053; J3010; J1885; J7030

== ENCOUNTER 2017-06-21 12:03 | Emergency (ER) | payer MEDICAID ==
--- NOTE | 2017-06-21 12:24 | ER Document Report ---
ED Medical Screen (RME) - General Mode of Arrival: Wheelchair Information source: Patient TRAVEL OUTSIDE OF THE [place] 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 Patient reports that she took 4mg of Dilaudid at 2200 last night and again at 0500 this morning. Patient reports that her pain is not under control. Patient denies any chest pain, shortness of breath, fever, nausea , vomiting, or any swelling to her left arm or leg. Patient additionally takes folic acid, hydroxyurea, Xarelto, Abilify, and Lexapro. Filter Helper: Dr. Moreira ([facility]) - Related Data Allergies/Adverse Reactions: morphine Adverse Reaction (Severe, Verified 06/21/17 12:05) RASH,SWELLING jacob peppers Adverse Reaction (Severe, Uncoded 06/21/17 12:05) throat closes Past Medical History - General Information source: Patient - Social History Family history: Reviewed & Not Pertinent, Other - Pt was adopted. Does not know family history - Past Medical History Cardiac Medical History: Reports: Hx DVT - RUE s/p port placement Denies: Hx Congestive Heart Failure, Hx Coronary Artery Disease, Hx Heart Attack, Hx Hypertension, Hx Pulmonary Embolism Pulmonary Medical History: Reports: Hx Bronchitis - once in past per patient, Hx Pneumonia - history in past per patient Denies: Hx Asthma, Hx COPD, Hx Tuberculosis Neurological Medical History: Denies: Hx Cerebrovascular Accident, Hx Migraine, Hx Seizures Renal/ Medical History: Denies: Hx End Stage Renal Disease, Hx Kidney Stones, Hx Peritoneal Dialysis GI Medical History: Denies: Hx Cirrhosis, Hx Gastroesophageal Reflux Disease, Hx Ulcer Musculoskeltal Medical History: Denies Hx Arthritis, Denies Hx Multiple Sclerosis, Reports Hx Musculoskeletal Trauma Psychiatric Medical History: Reports: Hx Anxiety, Hx Depression - anxiety Denies: Hx Bipolar Disorder, Hx Schizophrenia Past Surgical History: Reports: Hx Cholecystectomy - 06/28/2015, Hx Vascular Surgery - port put in December, - Immunizations Immunizations up to date: Yes Hx Diphtheria, Pertussis, Tetanus Vaccination: Yes History of Influenza Vaccine for 12/2016 - 05/2017 Season: Yes Influenza Administration Date for 12/2016 - 05/2017 Season: 03/10/17 Review of Systems - Review of Systems Constitutional: No symptoms reported. denies: Fever EENT: No symptoms reported Cardiovascular: No symptoms reported. denies: Chest pain Respiratory: No symptoms reported. denies: Short of breath Gastrointestinal: No symptoms reported. denies: Nausea, Vomiting Genitourinary: No symptoms reported Female Genitourinary: No symptoms reported Musculoskeletal: See HPI, Other - No arm swelling. Left arm and leg pain.. denies: Leg swelling Skin: No symptoms reported Hematologic/Lymphatic: No symptoms reported Neurological/Psychological: No symptoms reported -: Yes All other systems reviewed and negative Physical Exam - General General appearance: Alert, Other - Appears uncomfortable and tearful - HEENT Head: Normocephalic, Atraumatic Eyes: Normal Extraocular movements intact: Yes Pupils: PERRL - Respiratory Respiratory status: No respiratory distress Breath sounds: Normal - Cardiovascular Rhythm: Regular, Tachycardia - moderate Heart sounds: Normal auscultation Pulses: Normal: Radial, Dorsalis pedis - Vital signs Vitals: Temp Pulse Resp BP Pulse Ox 98.5 F 129 H 18 134/87 H 96 06/21/17 12:08 06/21/17 12:08 06/21/17 12:08 06/21/17 12:08 06/21/17 12:08 - Vital Signs Vital signs: Temp Pulse Resp BP Pulse Ox 98.5 F 129 H 18 134/87 H 96 06/21/17 12:08 06/21/17 12:08 06/21/17 12:08 06/21/17 12:08 06/21/17 12:08 Doctor's Discharge - Discharge Referrals: JOIE MOREIRA MD [ACTIVE STAFF] - Follow up as needed Scribe Documentation - Scribe Written by Scribe:: Marisel Breen, 06/21/2017 1231 acting as scribe for :: Erika
[2017-06-21] MEDS ORDERED: HYDROMORPHONE HCL INJ/PF 2 MG/ML AMPULE IV ONE ×3 (12:33→16:40)
[2017-06-21] MEDS ORDERED: NORMAL SALINE 1000 ML 1,000 ML IV ONE (12:33)
[2017-06-21] MEDS ORDERED: DIPHENHYDRAMINE HCL 50 MG/ML VIAL IV ONE ×2 (12:51→15:14)
--- NOTE | 2017-06-21 12:53 | ER Document Report ---
ED General - General Chief Complaint: Sickle Cell Crisis Stated Complaint: BODY PAIN, MUSCLE PAIN Time Seen by Provider: 06/21/17 12:17 Mode of Arrival: Wheelchair Information source: Patient Notes: This is a 22-year-old female with a history of sickle cell disease (followed by Dr. Moreira), history of jugular vein clot (Xarelto). Patient presents to the emergency room with 3 days of left arm and left leg pain. Patient denies fever. Patient denies nausea or vomiting. The patient denies any upper respiratory infections. TRAVEL OUTSIDE OF THE [place] IN LAST 30 DAYS: No - HPI Onset: Just prior to arrival Onset/Duration: Gradual Quality of pain: Dull Severity: Severe Pain Level: 5 Associated symptoms: denies: Chills, Fever, Shortness of breath Exacerbated by: Movement Relieved by: Remaining still Similar symptoms previously: Yes Recently seen / treated by doctor: Yes - Related Data Allergies/Adverse Reactions: morphine Adverse Reaction (Severe, Verified 06/21/17 12:05) RASH,SWELLING jacob peppers Adverse Reaction (Severe, Uncoded 06/21/17 12:05) throat closes Past Medical History - General Information source: Patient - Social History Smoking Status: Never Smoker Cigarette use (# per day): No Chew tobacco use (# tins/day): No Frequency of alcohol use: None Drug Abuse: None Lives with: Family Family History: Hypertension, Other - Sickle cell. denies: Arthritis, CAD, COPD , CVA, DM, Hyperlipidemia, Malignancy, Thyroid Disfunction Patient has suicidal ideation: No Patient has homicidal ideation: No - Past Medical History Cardiac Medical History: Reports: Hx DVT - RUE s/p port placement Denies: Hx Congestive Heart Failure, Hx Coronary Artery Disease, Hx Heart Attack, Hx Hypertension, Hx Pulmonary Embolism Pulmonary Medical History: Reports: Hx Bronchitis - once in past per patient, Hx Pneumonia - history in past per patient Denies: Hx Asthma, Hx COPD, Hx Tuberculosis Neurological Medical History: Denies: Hx Cerebrovascular Accident, Hx Migraine, Hx Seizures Renal/ Medical History: Denies: Hx End Stage Renal Disease, Hx Kidney Stones, Hx Peritoneal Dialysis GI Medical History: Denies: Hx Cirrhosis, Hx Gastroesophageal Reflux Disease, Hx Ulcer Musculoskeltal Medical History: Denies Hx Arthritis, Denies Hx Multiple Sclerosis, Reports Hx Musculoskeletal Trauma Psychiatric Medical History: Reports: Hx Anxiety, Hx Depression - anxiety Denies: Hx Bipolar Disorder, Hx Schizophrenia Past Surgical History: Reports: Hx Cholecystectomy - 06/28/2015, Hx Vascular Surgery - port put in December, - Immunizations Immunizations up to date: Yes Hx Diphtheria, Pertussis, Tetanus Vaccination: Yes Review of Systems - Review of Systems Constitutional: denies: Chills, Fever EENT: No symptoms reported Cardiovascular: No symptoms reported Respiratory: No symptoms reported Gastrointestinal: No symptoms reported Genitourinary: No symptoms reported Female Genitourinary: No symptoms reported Musculoskeletal: See HPI Skin: No symptoms reported Hematologic/Lymphatic: No symptoms reported Neurological/Psychological: No symptoms reported Physical Exam - Vital signs Vitals: Temp Pulse Resp BP Pulse Ox 98.5 F 129 H 18 134/87 H 96 06/21/17 12:08 06/21/17 12:08 06/21/17 12:08 06/21/17 12:08 06/21/17 12:08 Notes: Physical exam: GENERAL: 22-year-old female, alert and oriented 3, crying HEAD: Atraumatic, normocephalic. EYES: Pupils equal round and reactive to light, extraocular movements intact, sclera anicteric, conjunctiva are normal. ENT: TMs normal, nares patent, oropharynx clear without exudates. Moist mucous membranes. NECK: Normal range of motion, supple without obvious mass LUNGS: Breath sounds clear to auscultation bilaterally and equal. No wheezes rales or rhonchi. HEART: Regular rate and rhythm without murmurs, rubs or gallops. ABDOMEN: Soft, normoactive bowel sounds. No tenderness to palpation. No guarding, no rebound. No masses appreciated. EXTREMITIES: Normal range of motion, no pitting or edema. No clubbing or cyanosis. Distal pulses are intact. The specific extremities involved in today 's symptoms: Left upper extremity and left lower extremity. The patient points to over the deltoid and the arm and over the anterior thigh and the leg. There is no swelling or redness to the extremities involved. The distal pulses are very good. There is no evidence of infection. NEUROLOGICAL: Cranial nerves II through XII grossly intact. Normal speech, moving all extremities. PSYCH: Normal mood, normal affect. SKIN: Warm, Dry, normal turgor, no rashes or lesions noted. Course - Re-evaluation Re-evalutation: 06/21/17 18:36 Patient was treated with IV fluids, IV pain meds and IV Benadryl. She was observed in the ER. After her third dose of pain medicine I did offer her admission but she refused and stated she wanted to go home. I gave her explicit instructions to return to the emergency room for worsening symptoms. - Vital Signs Vital signs: Temp Pulse Resp BP Pulse Ox 99.7 F 110 H 18 136/84 H 100 06/21/17 17:51 06/21/17 17:51 06/21/17 17:51 06/21/17 17:51 06/21/17 17:51 - Laboratory Result Diagrams: 06/21/17 12:55 06/21/17 12:55 Laboratory results interpreted by me: 06/21/17 06/21/17 06/21/17 12:55 12:55 16:25 WBC 21.7 H RBC 3.07 L Hgb 10.3 L Hct 29.0 L MCH 33.6 H RDW 21.0 H Plt Count 516 H Abs Neuts (Manual) 16.1 H Abs Monocytes (Manual) 1.7 H Retic Count (auto) 9.40 H Absolute Retic 0.288 H BUN 4 L Creatinine 0.50 L Total Bilirubin 5.9 H Direct Bilirubin 0.9 H Lactate Dehydrogenase 834 H Urine Ketones 20 H Urine Urobilinogen 4.0 H Discharge - Discharge Clinical Impression: Sickle cell vaso-occlusive crisis Condition: Stable Disposition: HOME, SELF-CARE Additional Instructions: Recommendations: Continue current medicines, drink plenty of fluids, follow-up with Dr. Moreira. Referrals: JOIE MOREIRA MD [Primary Care Provider] - Follow up as needed
[2017-06-21 13:37] LABS: ALANINE AMINOTRANSFERASE 32 U/L (9-52); ALKALINE PHOSPHATASE 71 U/L (38-126); ANION GAP 8 (5-19); ASPARTATE AMINO TRANSFERASE 27 U/L (14-36); BILIRUBIN,DIRECT 0.9 mg/dL (0.0-0.4); BILIRUBIN,TOTAL 5.9 mg/dL (0.2-1.3); BLOOD UREA NITROGEN 4 mg/dL (7-20); CALCIUM 9.3 mg/dL (8.4-10.2); CARBON DIOXIDE 29 mmol/L (22-30); CHLORIDE 103 mmol/L (98-107); GLUCOSE 89 mg/dL (75-110); LDH 834 U/L (313-618); POTASSIUM 3.7 mmol/L (3.6-5.0); SODIUM 139.8 mmol/L (137-145); TOTAL PROTEIN 7.2 g/dL (6.3-8.2)
[2017-06-21 13:49] LABS: ABSOLUTE RETICS # 0.288 10^6/uL (0.028-0.122); HEMOGLOBIN 10.3 g/dL (12.0-15.5); MEAN CORPUSCULAR HEMOGLOBIN 33.6 pg (27.0-33.4); MEAN CORPUSCULAR HGB CONC 35.6 g/dL (32.0-36.0); MEAN CORPUSCULAR VOLUME 95 fl (80-97); PLATELET COUNT 516 10^3/uL (150-450); RED BLOOD COUNT 3.07 10^6/uL (3.72-5.28); WHITE BLOOD COUNT 21.7 10^3/uL (4.0-10.5)
[2017-06-21 14:12] LABS: ABSOLUTE LYMPHOCYTES# (MANUAL) 3.3 10^3/uL (0.5-4.7); ABSOLUTE MONOCYTES # (MANUAL) 1.7 10^3/uL (0.1-1.4); ABSOLUTE NEUTROPHILS# (MANUAL) 16.1 10^3/uL (1.7-8.2); BASOPHILS % (MANUAL) 1 % (0-2); EOSINOPHILS % (MANUAL) 2 % (0-6); LYMPHOCYTES % (MANUAL) 15 % (13-45); MONOCYTES % (MANUAL) 8 % (3-13); NUCLEATED RED BLOOD CELLS 1 /100 WBC (0); SEGMENTED NEUTROPHILS % (MAN) 74 % (42-78); TOTAL CELLS COUNTED 100
[2017-06-21 14:14] LABS: POLYCHROMASIA 2+; TOXIC GRANULATION SLIGHT; TOXIC VACUOLATION PRESENT
[2017-06-21 14:15] LABS: ANISOCYTOSIS 3+; OVALOCYTES 1+; PLATELET COMMENT INCREASED; POIKILOCYTOSIS 1+; SICKLE RED CELLS SLIGHT; TARGET CELLS 2+
[2017-06-21] MEDS ORDERED: NORMAL SALINE 1000 ML 1,000 ML IV PRN (15:39)
[2017-06-21 16:55] LABS: APPEARANCE,URINE CLEAR; BILIRUBIN,URINE NEGATIVE (NEGATIVE); COLOR,URINE YELLOW; GLUCOSE, URINE NEGATIVE (NEGATIVE); KETONES,URINE 20 mg/dL (NEGATIVE); LEUKOCYTE ESTERASE,URINE NEGATIVE (NEGATIVE); NITRITE,URINE NEGATIVE (NEGATIVE); PROTEIN,URINE NEGATIVE (NEGATIVE); URINE SPECIFIC GRAVITY 1.009
[2017-06-21 18:04] VITALS: BP 136/84
== END 2017-06-21 17:54 | disposition home or self-care (01) ==
LOC: ER 12:03
DX: D57.00 Hb-SS disease with crisis, unspecified (principal); M79.1 Myalgia; Z86.718 Personal history of other venous thrombosis and embolism; Z79.01 Long term (current) use of anticoagulants
CPT/HCPCS: 36591; 96376; 99284; 96361; 96374; 96375; 36415; 83615; 85025; 85045; 80053; 81001; J1200; J1170; J7030

== ENCOUNTER 2017-06-24 21:01 | Emergency (ER) | payer MEDICAID ==
[2017-06-24 21:19] VITALS: BP 94/70
[2017-06-24 22:24] LABS: ABSOLUTE BASOPHILS # (AUTO) 0.3 10^3/uL (0.0-0.2); ABSOLUTE EOSINOPHILS # (AUTO) 0.8 10^3/uL (0.0-0.6); ABSOLUTE LYMPHOCYTES (AUTO) 4.2 10^3/uL (0.5-4.7); ABSOLUTE MONOCYTES (AUTO) 1.2 10^3/uL (0.1-1.4); ABSOLUTE NEUT (AUTO) 8.1 10^3/uL (1.7-8.2); BASOPHILS % (AUTO) 2.1 % (0-2); EOSINOPHILS % (AUTO) 5.8 % (0-6); HEMATOCRIT 26.2 % (36.0-47.0); HEMOGLOBIN 9.4 g/dL (12.0-15.5); LYMPHOCYTES % (AUTO) 28.7 % (13-45); MEAN CORPUSCULAR HEMOGLOBIN 33.7 pg (27.0-33.4); MEAN CORPUSCULAR HGB CONC 35.7 g/dL (32.0-36.0); MEAN CORPUSCULAR VOLUME 94 fl (80-97); MONOCYTES % (AUTO) 8.3 % (3-13); PLATELET COUNT 421 10^3/uL (150-450); RED BLOOD COUNT 2.78 10^6/uL (3.72-5.28); RED CELL DISTRIBUTION WIDTH 19.7 % (11.5-14.0); RETICULOCYTE COUNT (AUTO) 7.56 % (0.66-2.85); SEGMENTED NEUTROPHILS % (AUTO) 55.1 % (42-78); TOTAL CELLS COUNTED % (AUTO) 100 %; WHITE BLOOD COUNT 14.7 10^3/uL (4.0-10.5)
[2017-06-24 22:26] LABS: ALANINE AMINOTRANSFERASE 28 U/L (9-52); ALBUMIN 2.9 g/dL (3.5-5.0); ALKALINE PHOSPHATASE 73 U/L (38-126); ANION GAP 6 (5-19); ASPARTATE AMINO TRANSFERASE 23 U/L (14-36); BILIRUBIN,DIRECT 0.2 mg/dL (0.0-0.4); BILIRUBIN,TOTAL 2.7 mg/dL (0.2-1.3); BLOOD UREA NITROGEN 10 mg/dL (7-20); CALCIUM 7.3 mg/dL (8.4-10.2); CARBON DIOXIDE 24 mmol/L (22-30); CHLORIDE 113 mmol/L (98-107); GLUCOSE 80 mg/dL (75-110); POTASSIUM 3.4 mmol/L (3.6-5.0); SODIUM 142.7 mmol/L (137-145); TOTAL PROTEIN 5.4 g/dL (6.3-8.2)
[2017-06-24 22:45] LABS: PLATELET COMMENT ADEQUATE
[2017-06-24 22:46] LABS: ANISOCYTOSIS 2+; HYPOCHROMASIA SLIGHT; POLYCHROMASIA 2+
[2017-06-24 22:48] LABS: TARGET CELLS 2+
[2017-06-24 22:51] LABS: POIKILOCYTOSIS 2+
[2017-06-24] MEDS ORDERED: NORMAL SALINE 1000 ML 1,000 ML IV PRN (23:26)
[2017-06-25] MEDS ORDERED: LIDOCAINE 5% (700 MG) TRANSDERMAL ADH..PATCH TP ONE (00:18)
[2017-06-25] MEDS ORDERED: KETOROLAC TROMETHAMINE INJ/PF 30 MG/1 ML SDV IV ONE (00:18)
--- NOTE | 2017-06-25 00:22 | ER Document Report ---
ED General - General Chief Complaint: Pain Stated Complaint: BODY PAIN Time Seen by Provider: 06/24/17 22:36 TRAVEL OUTSIDE OF THE [place] IN LAST 30 DAYS: No - HPI Patient complains to provider of: Left arm pain Notes: Patient with a history of sick cell disease coming in for left arm pain. Patient states pain in left arm starting shoulder going down to the wrist. Patient denies any trauma denies any swelling patient states pain with movement of the arm. Denies any fevers chills nausea vomiting. Patient resting comfortably upon my evaluation texting on her cell phone. Patient is currently in [facility] and unable to examine the skin the left arm explained to the patient would need to place her in a gown. Patient states that we do not need to examine her arm that way if that is not back, issue. Reassured patient that a complete examination will involve her in getting into a gown. - Related Data Allergies/Adverse Reactions: morphine Adverse Reaction (Severe, Verified 06/21/17 12:05) RASH,SWELLING jacob peppers Adverse Reaction (Severe, Uncoded 06/21/17 12:05) throat closes Past Medical History - Social History Smoking Status: Never Smoker Family History: Hypertension, Other - Sickle cell. denies: Arthritis, CAD, COPD , CVA, DM, Hyperlipidemia, Malignancy, Thyroid Disfunction Patient has suicidal ideation: No Patient has homicidal ideation: No - Past Medical History Cardiac Medical History: Reports: Hx DVT - RUE s/p port placement Denies: Hx Congestive Heart Failure, Hx Coronary Artery Disease, Hx Heart Attack, Hx Hypertension, Hx Pulmonary Embolism Pulmonary Medical History: Reports: Hx Bronchitis - once in past per patient, Hx Pneumonia - history in past per patient Denies: Hx Asthma, Hx COPD, Hx Tuberculosis Neurological Medical History: Denies: Hx Cerebrovascular Accident, Hx Migraine, Hx Seizures Renal/ Medical History: Denies: Hx End Stage Renal Disease, Hx Kidney Stones, Hx Peritoneal Dialysis GI Medical History: Denies: Hx Cirrhosis, Hx Gastroesophageal Reflux Disease, Hx Ulcer Musculoskeltal Medical History: Denies Hx Arthritis, Denies Hx Multiple Sclerosis, Reports Hx Musculoskeletal Trauma Psychiatric Medical History: Reports: Hx Anxiety, Hx Depression - anxiety Denies: Hx Bipolar Disorder, Hx Schizophrenia Past Surgical History: Reports: Hx Cholecystectomy - 06/28/2015, Hx Vascular Surgery - port put in December, - Immunizations Immunizations up to date: Yes Hx Diphtheria, Pertussis, Tetanus Vaccination: Yes Review of Systems - Review of Systems Constitutional: No symptoms reported EENT: No symptoms reported Cardiovascular: No symptoms reported Respiratory: No symptoms reported Gastrointestinal: No symptoms reported Genitourinary: No symptoms reported Female Genitourinary: No symptoms reported Musculoskeletal: Other - Left arm pain Skin: No symptoms reported Hematologic/Lymphatic: No symptoms reported Neurological/Psychological: No symptoms reported Physical Exam - Vital signs Vitals: Temp Pulse Resp BP Pulse Ox 98.4 F 87 18 94/70 L 97 06/24/17 21:18 06/24/17 21:18 06/24/17 21:18 06/24/17 21:18 06/24/17 21:18 Interpretation: Normal - General General appearance: Appears well, Alert - HEENT Head: Normocephalic, Atraumatic Eyes: Normal Pupils: PERRL - Respiratory Respiratory status: No respiratory distress Chest status: Nontender Breath sounds: Normal Chest palpation: Normal - Cardiovascular Rhythm: Regular Heart sounds: Normal auscultation Murmur: No - Abdominal Inspection: Normal Distension: No distension Bowel sounds: Normal Tenderness: Nontender Organomegaly: No organomegaly - Back Back: Normal, Nontender - Extremities General upper extremity: Normal inspection, Tender - Patient does state she has tenderness to range of motion of the left arm. Examination of skin does not reveal any erythema swelling lumps or nodules. I did use the bedside ultrasound to evaluate deep veins all the veins were compressible and do not suspect any signs of DVT there is flow distal with compression. During the ultrasound patient was able to continue texting on her phone., Normal color, Normal ROM, Normal temperature General lower extremity: Normal inspection, Nontender, Normal color, Normal ROM , Normal temperature, Normal weight bearing. No: Glen's sign - Neurological Neuro grossly intact: Yes Cognition: Normal Orientation: AAOx4 [place] Coma Scale Eye Opening: Spontaneous [place] Coma Scale Verbal: Oriented [place] Coma Scale Motor: Obeys Commands [place] Coma Scale Total: 15 Speech: Normal Motor strength normal: LUE, RUE, LLE, RLE Sensory: Normal - Psychological Associated symptoms: Normal affect, Normal mood - Skin Skin Temperature: Warm Skin Moisture: Dry Skin Color: Normal Course - Re-evaluation Re-evalutation: 06/25/17 05:23 Patient coming in with a history of sickle cell disease. Current laboratory studies show a decrease in her reticulocyte count. Patient's vital signs otherwise look to be baseline. I explained to the patient we are evaluation no history of trauma do not feel she requires an x-ray at this time. Ultrasound does not show any significant disease. As patient was able to texted during my bedside ultrasound of her arm. there is no swelling. Explained to the patient at this time I will give her a dose of ketorolac for her pain and that the patient can follow-up with her glass installer for further evaluation. Patient is on chronic opioid therapy currently at this time has had multiple recent visits for pain control patient also has had increase of narcotic dosage increases in the last few months from oxycodone to Dilaudid 1 mg 2 mg and now currently 4 mg according to [place] database. Patient will not be prescribing any narcotics is that she is on chronic pain management. - Vital Signs Vital signs: Temp Pulse Resp BP Pulse Ox 98.9 F 85 17 94/70 L 98 06/25/17 00:40 06/25/17 00:40 06/25/17 00:40 06/25/17 00:40 06/25/17 00:40 - Laboratory Result Diagrams: 06/24/17 22:00 06/24/17 22:00 Laboratory results interpreted by me: 06/24/17 06/24/17 22:00 22:00 WBC 14.7 H RBC 2.78 L Hgb 9.4 L Hct 26.2 L MCH 33.7 H RDW 19.7 H Basophils % 2.1 H Absolute Eosinophils 0.8 H Absolute Basophils 0.3 H Retic Count (auto) 7.56 H Absolute Retic 0.210 H Potassium 3.4 L Chloride 113 H Creatinine 0.45 L Calcium 7.3 L Total Bilirubin 2.7 H Total Protein 5.4 L Albumin 2.9 L Discharge - Discharge Clinical Impression: Left arm pain Sickle cell disease Qualifiers: Sickle-cell associated disorders: without crisis Qualified Code(s): D57.1 - Sickle-cell disease without crisis Condition: Good Disposition: HOME, SELF-CARE Instructions: Arm Pain, Nonspecific ([facility]) Additional Instructions: Your evaluation did not reveal any emergent pathology. Laboratory studies show a decreasing reticulocyte count. Bedside ultrasound does not show any significant pathology found again to vasculature of your arm. There is no signs of infection. However recommend taking your home pain medication as prescribed by your glass installer I would recommend calling her glass installer tomorrow. Referrals: JOIE MOREIRA MD [Primary Care Provider] - Follow up tomorrow
== END 2017-06-25 00:40 | disposition home or self-care (01) ==
LOC: ER 21:01
DX: M79.602 Pain in left arm (principal); D57.1 Sickle-cell disease without crisis; Z79.891 Long term (current) use of opiate analgesic; Z86.718 Personal history of other venous thrombosis and embolism
CPT/HCPCS: 36591; 99284; 96361; 96374; 36415; 85025; 85045; 80053; J1885; J3490; J7030

== ENCOUNTER 2017-06-30 14:38 | Emergency (ER) | payer MEDICAID ==
[2017-06-30] MEDS ORDERED: HYDROMORPHONE HCL 2 MG TABLET PO ONE (15:46)
[2017-06-30] MEDS: NORMAL SALINE 1000 ML 1,000 ML IV PRN ×2 (16:51→16:52)
[2017-06-30 16:57] LABS: ABSOLUTE RETICS # 0.221 10^6/uL (0.028-0.122); HEMATOCRIT 28.6 % (36.0-47.0); HEMOGLOBIN 10.2 g/dL (12.0-15.5); MEAN CORPUSCULAR HEMOGLOBIN 33.5 pg (27.0-33.4); MEAN CORPUSCULAR HGB CONC 35.6 g/dL (32.0-36.0); MEAN CORPUSCULAR VOLUME 94 fl (80-97); PLATELET COUNT 476 10^3/uL (150-450); RED BLOOD COUNT 3.05 10^6/uL (3.72-5.28); RED CELL DISTRIBUTION WIDTH 19.7 % (11.5-14.0); RETICULOCYTE COUNT (AUTO) 7.27 % (0.66-2.85); WHITE BLOOD COUNT 18.7 10^3/uL (4.0-10.5)
[2017-06-30 17:07] LABS: ANION GAP 8 (5-19); BLOOD UREA NITROGEN 8 mg/dL (7-20); CALCIUM 9.5 mg/dL (8.4-10.2); CARBON DIOXIDE 25 mmol/L (22-30); CHLORIDE 109 mmol/L (98-107); GLUCOSE 94 mg/dL (75-110); LDH 665 U/L (313-618); POTASSIUM 4.2 mmol/L (3.6-5.0); SODIUM 142.4 mmol/L (137-145)
[2017-06-30 17:28] LABS: ABSOLUTE LYMPHOCYTES# (MANUAL) 4.1 10^3/uL (0.5-4.7); ABSOLUTE MONOCYTES # (MANUAL) 1.5 10^3/uL (0.1-1.4); ABSOLUTE NEUTROPHILS# (MANUAL) 12.5 10^3/uL (1.7-8.2); ANISOCYTOSIS 2+; BASOPHILS % (MANUAL) 0 % (0-2); EOSINOPHILS % (MANUAL) 3 % (0-6); HYPERSEGMENTED NEUTROPHILS PRESENT; HYPOCHROMASIA 1+; LYMPHOCYTES % (MANUAL) 22 % (13-45); MONOCYTES % (MANUAL) 8 % (3-13); OVALOCYTES 1+; POIKILOCYTOSIS 2+; POLYCHROMASIA 2+; SCHISTOCYTES 1+; SEGMENTED NEUTROPHILS % (MAN) 67 % (42-78); SICKLE RED CELLS 1+; TOTAL CELLS COUNTED 100; TOXIC GRANULATION SLIGHT; TOXIC VACUOLATION PRESENT
[2017-06-30 17:29] LABS: TARGET CELLS 1+
[2017-06-30 17:30] LABS: PLATELET COMMENT ADEQUATE; PLATELET LARGE PRESENT
[2017-06-30 19:02] VITALS: BP 111/81
--- NOTE | 2017-06-30 19:02 | ER Document Report ---
ED General - General Chief Complaint: Pain All Over Stated Complaint: LEG AND BACK PAIN Time Seen by Provider: 06/30/17 15:43 TRAVEL OUTSIDE OF THE [place] IN LAST 30 DAYS: No - HPI Patient complains to provider of: Diffuse pain Notes: Patient coming in for diffuse pain. Patient has a history of sickle cell disease. Patient states she took her Dilaudid last night around 8:00 is not taking of her prescribed Dilaudid today did take some Motrin earlier prior to coming in. Patient states diffuse pain in her legs and her back. Patient otherwise resting comfortably on her phone upon my initial evaluation in triage. Patient has no signs of any obvious distress. Denies fevers chills nausea vomiting diarrhea - Related Data Allergies/Adverse Reactions: morphine Adverse Reaction (Severe, Verified 06/30/17 15:43) RASH,SWELLING jacob peppers Adverse Reaction (Severe, Uncoded 06/30/17 15:43) throat closes Past Medical History - Social History Smoking Status: Former Smoker Chew tobacco use (# tins/day): No Frequency of alcohol use: None Drug Abuse: None Family History: Hypertension, Other - Sickle cell. denies: Arthritis, CAD, COPD , CVA, DM, Hyperlipidemia, Malignancy, Thyroid Disfunction Patient has suicidal ideation: No Patient has homicidal ideation: No - Past Medical History Cardiac Medical History: Reports: Hx DVT - RUE s/p port placement Denies: Hx Congestive Heart Failure, Hx Coronary Artery Disease, Hx Heart Attack, Hx Hypertension, Hx Pulmonary Embolism Pulmonary Medical History: Reports: Hx Bronchitis - once in past per patient, Hx Pneumonia - history in past per patient Denies: Hx Asthma, Hx COPD, Hx Tuberculosis Neurological Medical History: Denies: Hx Cerebrovascular Accident, Hx Migraine, Hx Seizures Renal/ Medical History: Denies: Hx End Stage Renal Disease, Hx Kidney Stones, Hx Peritoneal Dialysis GI Medical History: Denies: Hx Cirrhosis, Hx Gastroesophageal Reflux Disease, Hx Ulcer Musculoskeltal Medical History: Denies Hx Arthritis, Denies Hx Multiple Sclerosis, Reports Hx Musculoskeletal Trauma Psychiatric Medical History: Reports: Hx Anxiety, Hx Depression - anxiety Denies: Hx Bipolar Disorder, Hx Schizophrenia Past Surgical History: Reports: Hx Cholecystectomy - 06/28/2015, Hx Vascular Surgery - port put in December, - Immunizations Immunizations up to date: Yes Hx Diphtheria, Pertussis, Tetanus Vaccination: Yes Review of Systems - Review of Systems Constitutional: No symptoms reported EENT: No symptoms reported Cardiovascular: No symptoms reported Respiratory: No symptoms reported Gastrointestinal: No symptoms reported Genitourinary: No symptoms reported Female Genitourinary: No symptoms reported Musculoskeletal: Muscle pain Skin: No symptoms reported Hematologic/Lymphatic: No symptoms reported Neurological/Psychological: No symptoms reported -: Yes All other systems reviewed and negative Physical Exam - Vital signs Vitals: Temp Pulse Resp BP Pulse Ox 98.7 F 91 17 107/55 L 96 06/30/17 14:45 06/30/17 14:45 06/30/17 14:45 06/30/17 14:45 06/30/17 14:45 Interpretation: Normal - General General appearance: Appears well, Alert - HEENT Head: Normocephalic, Atraumatic Eyes: Normal Pupils: PERRL - Respiratory Respiratory status: No respiratory distress Chest status: Nontender Breath sounds: Normal Chest palpation: Normal - Cardiovascular Rhythm: Regular Heart sounds: Normal auscultation Murmur: No - Abdominal Inspection: Normal Distension: No distension Bowel sounds: Normal Tenderness: Nontender Organomegaly: No organomegaly - Back Back: Normal, Nontender - Extremities General upper extremity: Normal inspection, Nontender, Normal color, Normal ROM , Normal temperature General lower extremity: Normal inspection, Nontender, Normal color, Normal ROM , Normal temperature, Normal weight bearing. No: Glen's sign - Neurological Neuro grossly intact: Yes Cognition: Normal Orientation: AAOx4 Sina Coma Scale Eye Opening: Spontaneous Carnegie Coma Scale Verbal: Oriented Sina Coma Scale Motor: Obeys Commands Carnegie Coma Scale Total: 15 Speech: Normal Motor strength normal: LUE, RUE, LLE, RLE Sensory: Normal - Psychological Associated symptoms: Normal affect, Normal mood - Skin Skin Temperature: Warm Skin Moisture: Dry Skin Color: Normal Course - Re-evaluation Re-evalutation: 06/30/17 19:03 Patient's laboratory studies shows a reticulocyte count with minimal change. Does have an increase in WBCs hemoglobin looks to be possibly hemoconcentrated as recently seen 5 days ago now is almost increase of her children half a gram total gram. Patient did just give us a urine sample currently is pending. Patient has requested to be discharged home this time. Patient states that she would rather go home. Discussed with the patient that we will wait for the laboratory results of her patient is a system at this time. Patient states that we can call her for any abnormal results. Discharge papers were given to the patient 06/30/17 19:07 - Vital Signs Vital signs: Temp Pulse Resp BP Pulse Ox 97.5 F 73 18 111/81 100 06/30/17 19:00 06/30/17 19:00 06/30/17 19:00 06/30/17 19:00 06/30/17 19:00 - Laboratory Result Diagrams: 06/30/17 16:43 06/30/17 16:43 Laboratory results interpreted by me: 06/30/17 06/30/17 16:43 16:43 WBC 18.7 H RBC 3.05 L Hgb 10.2 L Hct 28.6 L MCH 33.5 H RDW 19.7 H Plt Count 476 H Abs Neuts (Manual) 12.5 H Abs Monocytes (Manual) 1.5 H Retic Count (auto) 7.27 H Absolute Retic 0.221 H Chloride 109 H Creatinine 0.50 L Lactate Dehydrogenase 665 H Discharge - Discharge Clinical Impression: Sickle cell crisis, Chronic pain syndrome, Dehydration Condition: Good Disposition: HOME, SELF-CARE Instructions: Dehydration ([facility]) Additional Instructions: Your laboratory studies today did not show any significant pathology. Currently urinalysis is pending. If you do not want to wait for urinalysis results we will discharge her home. We will call you few need to be prescribing antibiotics for urinary tract infection. Please follow-up with your primary care physician return to ER symptoms worsen. Referrals: JOIE MOREIRA MD [Primary Care Provider] - Follow up as needed
[2017-06-30 19:16] LABS: APPEARANCE,URINE CLEAR; BILIRUBIN,URINE NEGATIVE (NEGATIVE); COLOR,URINE YELLOW; GLUCOSE, URINE NEGATIVE (NEGATIVE); KETONES,URINE NEGATIVE (NEGATIVE); LEUKOCYTE ESTERASE,URINE NEGATIVE (NEGATIVE); NITRITE,URINE NEGATIVE (NEGATIVE); PROTEIN,URINE NEGATIVE (NEGATIVE); URINE SPECIFIC GRAVITY 1.011
== END 2017-06-30 19:19 | disposition home or self-care (01) ==
LOC: ER 14:38
DX: D57.00 Hb-SS disease with crisis, unspecified (principal); G89.4 Chronic pain syndrome; M79.606 Pain in leg, unspecified; M54.9 Dorsalgia, unspecified; E86.0 Dehydration; Z87.891 Personal history of nicotine dependence; Z86.718 Personal history of other venous thrombosis and embolism
CPT/HCPCS: 36591; 99284; 96360; 36415; 87086; 82553; 83615; 84703; 85025; 87088; 85045; 80048; 81001; J3490; J7030

== ENCOUNTER 2017-07-16 10:30 | Emergency (ER) | payer MEDICAID ==
--- NOTE | 2017-07-16 10:58 | ER Document Report ---
ED Medical Screen (RME) - General Chief Complaint: Sickle Cell Crisis Stated Complaint: SICKLE CELL CRISIS Time Seen by Provider: 07/16/17 10:54 Notes: Patient complains of leg and arm pain. She states this is a flare of her sickle -cell disease. She states she has had a mild cough but denies other symptoms. She states she has oxycodone at home but this is not helping. TRAVEL OUTSIDE OF THE [place] IN LAST 30 DAYS: No - Related Data Allergies/Adverse Reactions: morphine Adverse Reaction (Severe, Verified 07/16/17 10:30) RASH,SWELLING jacob peppers Adverse Reaction (Severe, Uncoded 06/30/17 15:43) throat closes Past Medical History - Social History Chew tobacco use (# tins/day): No Frequency of alcohol use: None Drug Abuse: None Family history: Reviewed & Not Pertinent, Other - Pt was adopted. Does not know family history - Past Medical History Cardiac Medical History: Reports: Hx DVT - RUE s/p port placement Denies: Hx Congestive Heart Failure, Hx Coronary Artery Disease, Hx Heart Attack, Hx Hypertension, Hx Pulmonary Embolism Pulmonary Medical History: Reports: Hx Bronchitis - once in past per patient, Hx Pneumonia - history in past per patient Denies: Hx Asthma, Hx COPD, Hx Tuberculosis Neurological Medical History: Denies: Hx Cerebrovascular Accident, Hx Migraine, Hx Seizures Renal/ Medical History: Denies: Hx End Stage Renal Disease, Hx Kidney Stones, Hx Peritoneal Dialysis GI Medical History: Denies: Hx Cirrhosis, Hx Gastroesophageal Reflux Disease, Hx Ulcer Musculoskeltal Medical History: Denies Hx Arthritis, Denies Hx Multiple Sclerosis, Reports Hx Musculoskeletal Trauma Psychiatric Medical History: Reports: Hx Anxiety, Hx Depression - anxiety Denies: Hx Bipolar Disorder, Hx Schizophrenia Past Surgical History: Reports: Hx Cholecystectomy - 06/28/2015, Hx Vascular Surgery - port put in December, - Immunizations Immunizations up to date: Yes Hx Diphtheria, Pertussis, Tetanus Vaccination: Yes History of Influenza Vaccine for 12/2016 - 05/2017 Season: Yes Influenza Administration Date for 12/2016 - 05/2017 Season: 03/10/17 Physical Exam - Vital signs Vitals: Temp Pulse Resp BP Pulse Ox 98.1 F 94 14 98/59 L 96 07/16/17 10:35 07/16/17 10:35 07/16/17 10:35 07/16/17 10:35 07/16/17 10:35 Course - Vital Signs Vital signs: Temp Pulse Resp BP Pulse Ox 98.1 F 94 14 98/59 L 96 07/16/17 10:35 07/16/17 10:35 07/16/17 10:38 07/16/17 10:35 07/16/17 10:35
--- NOTE | 2017-07-16 11:46 | RADIOLOGY REPORT (SQ) ---
EXAM DESCRIPTION: CHEST 2 VIEWS COMPLETED DATE/TIME: 07/16/2017 11:29 am REASON FOR STUDY: cough COMPARISON: 06/11/2017 EXAM PARAMETERS: NUMBER OF VIEWS: two views TECHNIQUE: Digital Frontal and Lateral radiographic views of the chest acquired. RADIATION DOSE: NA LIMITATIONS: none FINDINGS: LUNGS AND PLEURA: No opacities, masses or pneumothorax. No pleural effusion. MEDIASTINUM AND HILAR STRUCTURES: No masses or contour abnormalities. HEART AND VASCULAR STRUCTURES: Heart normal size. No evidence for failure. BONES: No acute findings. HARDWARE: Port-A-Cath is unchanged in position. OTHER: No other significant finding. IMPRESSION: No significant interval change. No acute findings. Other findings as noted above. TECHNICAL DOCUMENTATION: JOB ID: [id number] [employer]- All Rights Reserved Reading location - IP/workstation name: [email or web address]
[2017-07-16] MEDS ORDERED: ONDANSETRON HCL INJ/PF 4 MG/2 ML SDV IV ONE (12:46)
[2017-07-16] MEDS ORDERED: NORMAL SALINE 1000 ML 1,000 ML IV ONE (12:46)
[2017-07-16] MEDS ORDERED: DIPHENHYDRAMINE HCL 50 MG/ML VIAL IV ONE (12:47)
[2017-07-16] MEDS ORDERED: HYDROMORPHONE HCL INJ/PF 2 MG/ML AMPULE IV ONE ×2 (12:47→14:39)
--- NOTE | 2017-07-16 12:52 | ER Document Report ---
ED General Pain - General Chief Complaint: Sickle Cell Crisis Stated Complaint: BODY PAIN Time Seen by Provider: 07/16/17 10:54 Notes: Patient is a known sickle cell patient who is here with pain in her right arm and right thigh for the past 3 days intermittently. Her last visit here was a couple of weeks ago. She was previously on Dilaudid p.o., but that has been changed to oxycodone 5 mg every 6 hours, prescribed by her local manager costing, Dr. Moreira. Patient says the change in her medications were due the fact that she was sleeping too much on the Dilaudid. She has been seen in this emergency [place] 21 times thus far in the calendar year 2018. She was last seen by Dr. Moreira in his office a week or 2 ago. Other medications for her illness include hydroxyurea and folic acid. Patient denies any nausea or vomiting has had a dry cough. History of pneumonia. No UTI symptoms. Has not had any fever. LMP 06/14. TRAVEL OUTSIDE OF THE [place] IN LAST 30 DAYS: No - Related Data Allergies/Adverse Reactions: morphine Adverse Reaction (Severe, Verified 07/16/17 10:30) RASH,SWELLING jacob peppers Adverse Reaction (Severe, Uncoded 06/30/17 15:43) throat closes Past Medical History - Social History Smoking Status: Former Smoker Chew tobacco use (# tins/day): No Frequency of alcohol use: None Drug Abuse: None Family History: Reviewed & Not Pertinent, Hypertension, Other - Sickle cell. denies: Arthritis, CAD, COPD, CVA, DM, Hyperlipidemia, Malignancy, Thyroid Disfunction Patient has suicidal ideation: No Patient has homicidal ideation: No - Past Medical History Cardiac Medical History: Reports: Hx DVT - RUE s/p port placement Pulmonary Medical History: Reports: Hx Bronchitis - once in past per patient, Hx Pneumonia - history in past per patient Musculoskeltal Medical History: Reports Hx Musculoskeletal Trauma Psychiatric Medical History: Reports: Hx Anxiety, Hx Depression - anxiety Past Surgical History: Reports: Hx Cholecystectomy - 06/28/2015, Hx Vascular Surgery - port put in December,, Other - Port-A-Cath - Immunizations Immunizations up to date: Yes Hx Diphtheria, Pertussis, Tetanus Vaccination: Yes Review of Systems - Review of Systems Notes: REVIEW OF SYSTEMS: CONSTITUTIONAL : Denies fever. EENT: Denies eye, ear, nose or mouth or throat pain or other symptoms. CARDIOVASCULAR: Denies chest pain. RESPIRATORY: Has a dry cough. Denies chest congestion, or shortness of breath. GASTROINTESTINAL: Denies abdominal pain or nausea, vomiting, or diarrhea. GENITOURINARY: Denies difficulty or painful urinating, urinary frequency, blood in urine. MUSCULOSKELETAL: Denies back or neck pain. Denies joint pain or swelling. Pain of the entire right arm and of the right proximal lateral thigh region. No visible findings. SKIN: Denies rash or skin lesions. NEUROLOGICAL: Denies LOC or altered mental status. Denies headache. Denies sensory loss or motor deficits. ALL OTHER SYSTEMS REVIEWED AND NEGATIVE. Physical Exam - Vital signs Vitals: Temp Pulse Resp BP Pulse Ox 98.1 F 94 14 98/59 L 96 07/16/17 10:35 07/16/17 10:35 07/16/17 10:35 07/16/17 10:35 07/16/17 10:35 Interpretation: Normal - Notes Notes: PHYSICAL EXAMINATION: GENERAL: Well-appearing, in no acute distress. Vital signs are all essentially normal. HEAD: Atraumatic, normocephalic. EYES: Pupils equal round and reactive to light, extraocular movements intact. ENT: oropharynx clear without exudates. Moist mucous membranes. NECK: Normal range of motion, supple. LUNGS: Breath sounds clear and equal bilaterally. HEART: Regular rate and rhythm without murmurs. ABDOMEN: Soft, nontender. No guarding or rebound. No masses. BACK: No tenderness throughout entire back. EXTREMITIES: Normal range of motion without pain. Tender to touch or move the right arm, but no swelling or erythema or suggestion of blood clot at this time. Tender to touch the proximal lateral right thigh. No swelling, no skin changes. NEUROLOGICAL: Normal speech, normal gait. Normal sensory, motor, and reflex exams. Awake, alert, and oriented x3. Cranial nerves normal. PSYCH: Normal mood, normal affect. SKIN: Warm, dry, no rashes. Course - Re-evaluation Re-evalutation: 07/16/17 12:56 I discussed the case with Dr. Moreira and we will give the patient fluids and some pain medications and see if her symptoms will resolve. 07/16/17 16:08 Patient says that she is now free of pain and is agreeable to going home. - Vital Signs Vital signs: Temp Pulse Resp BP Pulse Ox 98.0 F 91 14 110/68 97 07/16/17 16:06 07/16/17 16:06 07/16/17 10:38 07/16/17 16:06 07/16/17 16:06 - Laboratory Result Diagrams: 07/16/17 13:30 07/16/17 13:30 Laboratory results interpreted by me: 07/16/17 07/16/17 13:30 13:30 WBC 14.6 H RBC 2.78 L Hgb 9.6 L Hct 26.5 L MCH 34.5 H MCHC 36.2 H RDW 19.2 H Plt Count 474 H Absolute Eos (Manual) 0.9 H Retic Count (auto) 9.29 H Absolute Retic 0.259 H Chloride 110 H BUN 5 L Creatinine 0.48 L Total Bilirubin 3.1 H Direct Bilirubin 0.5 H Discharge - Discharge Clinical Impression: Sickle cell pain crisis Condition: Stable Disposition: HOME, SELF-CARE Additional Instructions: Sickle Cell Crisis You have "sickle cell crisis." Sickle cell disease is caused by abnormal hemoglobin. This hemoglobin can deform red blood cells into a sickle shape. These abnormal blood cells can block blood vessels. This causes the pain of sickle cell crisis. Sickle cell crisis can occur any time. But attacks are more likely with acute infection, dehydration, or altitude change. A crisis usually causes pain in the legs, back, abdomen, and chest. Sometimes the pain may ease and return later. The usual treatment is oxygen, pain medication, IV fluids, and treatment of infection. Attacks may take a couple of days to resolve. Return if the pain becomes more severe, or if there are new symptoms. Intravenous (IV) Fluids As part of your care today, you received intravenous (IV) fluids. IV fluids are administered to patients who are dehydrated or to those who have certain chemical (electrolyte) abnormalities that need correcting. Pain Medication Injection You have received an injection of a pain medication. You should experience significant pain relief within 45 minutes. This drug is a narcotic - - it will impair your judgement, slow your reaction time and make you sleepy ( as well as relieve your pain). Narcotics also can cause nausea. You should not drive, work with machinery, or perform any task requiring mental alertness until all effects of the medication are gone -- six to eight hours. Do not take any alcohol, or sedatives, and do not take any other medication without checking with your physician. Oral Narcotic Medication You have been given a prescription for pain control. This medication is a narcotic. It's best taken with food, as nausea can result if taken on an empty stomach. Don't operate machinery or drive within six hours of taking this medication. Do not combine this medicine with alcohol, or with any medication which can cause sedation (such as cold tablets or sleeping pills) unless you get permission from the physician. Narcotics tend to cause constipation. If possible, drink plenty of fluids and eat a diet high in fiber and fruits. FOLLOW-UP CARE: If you have been referred to a physician for follow-up care, call the physician s office for an appointment as you were instructed or within the next two days. If you experience worsening or a significant change in your symptoms, notify the physician immediately or return to the Emergency Department at any time for re-evaluation. Follow-up with Dr. Moreira. Referrals: JOIE MOREIRA MD [ACTIVE STAFF] - Follow up as needed
[2017-07-16 13:10] LABS: APPEARANCE,URINE CLEAR; BILIRUBIN,URINE NEGATIVE (NEGATIVE); COLOR,URINE YELLOW; GLUCOSE, URINE NEGATIVE (NEGATIVE); KETONES,URINE NEGATIVE (NEGATIVE); LEUKOCYTE ESTERASE,URINE NEGATIVE (NEGATIVE); NITRITE,URINE NEGATIVE (NEGATIVE); PROTEIN,URINE NEGATIVE (NEGATIVE); UROBILINOGEN,URINE NEGATIVE mg/dL (<2.0)
[2017-07-16 14:01] LABS: INTERNATIONAL RATION (INR) 0.99; PROTHROMBIN TIME 13.6 SEC (11.4-15.4)
[2017-07-16 14:03] LABS: ABSOLUTE RETICS # 0.259 10^6/uL (0.028-0.122); HEMATOCRIT 26.5 % (36.0-47.0); HEMOGLOBIN 9.6 g/dL (12.0-15.5); MEAN CORPUSCULAR HEMOGLOBIN 34.5 pg (27.0-33.4); MEAN CORPUSCULAR HGB CONC 36.2 g/dL (32.0-36.0); MEAN CORPUSCULAR VOLUME 95 fl (80-97); PLATELET COUNT 474 10^3/uL (150-450); RED BLOOD COUNT 2.78 10^6/uL (3.72-5.28); RED CELL DISTRIBUTION WIDTH 19.2 % (11.5-14.0); RETICULOCYTE COUNT (AUTO) 9.29 % (0.66-2.85); WHITE BLOOD COUNT 14.6 10^3/uL (4.0-10.5)
[2017-07-16 14:08] LABS: ALANINE AMINOTRANSFERASE 19 U/L (9-52); ALBUMIN 3.8 g/dL (3.5-5.0); ALKALINE PHOSPHATASE 65 U/L (38-126); ANION GAP 10 (5-19); ASPARTATE AMINO TRANSFERASE 19 U/L (14-36); BILIRUBIN,DIRECT 0.5 mg/dL (0.0-0.4); BILIRUBIN,TOTAL 3.1 mg/dL (0.2-1.3); BLOOD UREA NITROGEN 5 mg/dL (7-20); CALCIUM 9.4 mg/dL (8.4-10.2); CARBON DIOXIDE 24 mmol/L (22-30); CHLORIDE 110 mmol/L (98-107); GLUCOSE 82 mg/dL (75-110); POTASSIUM 4.1 mmol/L (3.6-5.0); SODIUM 143.9 mmol/L (137-145); TOTAL PROTEIN 6.7 g/dL (6.3-8.2)
[2017-07-16 14:27] LABS: ABSOLUTE LYMPHOCYTES# (MANUAL) 4.4 10^3/uL (0.5-4.7); ABSOLUTE MONOCYTES # (MANUAL) 1.2 10^3/uL (0.1-1.4); ANISOCYTOSIS 2+; BASOPHILS % (MANUAL) 1 % (0-2); EOSINOPHILS % (MANUAL) 6 % (0-6); HYPOCHROMASIA 2+; LYMPHOCYTES % (MANUAL) 29 % (13-45); MONOCYTES % (MANUAL) 8 % (3-13); NUCLEATED RED BLOOD CELLS 1 /100 WBC (0); OVALOCYTES 1+; POIKILOCYTOSIS 2+; POLYCHROMASIA 2+; SEGMENTED NEUTROPHILS % (MAN) 55 % (42-78); TARGET CELLS 1+; TOTAL CELLS COUNTED 100
[2017-07-16 14:28] LABS: SCHISTOCYTES SLIGHT
[2017-07-16 14:29] LABS: HOWELL-JOLLY BODIES PRESENT; PAPPENHEIMER BODIES PRESENT; PLATELET COMMENT ADEQUATE
[2017-07-16 16:42] VITALS: BP 110/68
== END 2017-07-16 16:40 | disposition home or self-care (01) ==
LOC: ER 10:30
DX: D57.00 Hb-SS disease with crisis, unspecified (principal); M79.601 Pain in right arm; M79.651 Pain in right thigh; R05 Cough; Z79.891 Long term (current) use of opiate analgesic; Z87.891 Personal history of nicotine dependence; Z86.718 Personal history of other venous thrombosis and embolism
CPT/HCPCS: 36591; 96376; 99284; 96361; 96374; 96375; 36415; 84703; 85025; 85610; 85045; 80053; 81001; 71046; J1200; J1170; J2405; J7030

== ENCOUNTER 2017-07-17 21:52 | Emergency (ER) | payer MEDICAID ==
[2017-07-17 22:01] VITALS: BP 117/61
--- NOTE | 2017-07-18 00:11 | ER Document Report ---
ED Medical Screen (RME) - General Chief Complaint: Vaginal Bleeding Stated Complaint: ABDOMINAL PAIN Time Seen by Provider: 07/18/17 00:09 Mode of Arrival: Ambulatory Information source: Patient TRAVEL OUTSIDE OF THE [place] IN LAST 30 DAYS: No - HPI Patient complains to provider of: preg, bleeding Notes: 07/18/17 00:10 Patient is here with complaints of pelvic pain and vaginal bleeding. The patient is a with 1 prior miscarriage. Last normal menstrual period was 317. States that for the last week she has had some lower pelvic pain and cramping. This evening she noticed she was having some vaginal spotting. No fever. No nausea, vomiting, diarrhea. No dysuria. The patient has a history of sickle cell disease. Her blood type is O+ according to the computer. Physical exam: No distress, nontoxic appearing. Mild pelvic tenderness limited triage abdominal exam. Plan: CBC, CMP, lipase, quantitative hCG, urinalysis, pelvic ultrasound. An initial examination was made on the patient as part of the triage process, and it was determined a more comprehensive evaluation was necessary. Initial labs were ordered and patient was transferred to another provider in the ED who assumed care and finished evaluation and plan. - Related Data Allergies/Adverse Reactions: morphine Adverse Reaction (Severe, Verified 07/16/17 10:30) RASH,SWELLING jacob peppers Adverse Reaction (Severe, Uncoded 06/30/17 15:43) throat closes Past Medical History - Social History Family history: Reviewed & Not Pertinent, Other - Pt was adopted. Does not know family history - Past Medical History Cardiac Medical History: Reports: Hx DVT - RUE s/p port placement Denies: Hx Congestive Heart Failure, Hx Coronary Artery Disease, Hx Heart Attack, Hx Hypertension, Hx Pulmonary Embolism Pulmonary Medical History: Reports: Hx Bronchitis - once in past per patient, Hx Pneumonia - history in past per patient Denies: Hx Asthma, Hx COPD, Hx Tuberculosis Neurological Medical History: Denies: Hx Cerebrovascular Accident, Hx Migraine, Hx Seizures Renal/ Medical History: Denies: Hx End Stage Renal Disease, Hx Kidney Stones, Hx Peritoneal Dialysis GI Medical History: Denies: Hx Cirrhosis, Hx Gastroesophageal Reflux Disease, Hx Ulcer Musculoskeltal Medical History: Denies Hx Arthritis, Denies Hx Multiple Sclerosis, Reports Hx Musculoskeletal Trauma Psychiatric Medical History: Reports: Hx Anxiety, Hx Depression - anxiety Denies: Hx Bipolar Disorder, Hx Schizophrenia Past Surgical History: Reports: Hx Cholecystectomy - 06/28/2015, Hx Vascular Surgery - port put in December,, Other - Port-A-Cath - Immunizations Immunizations up to date: Yes Hx Diphtheria, Pertussis, Tetanus Vaccination: Yes History of Influenza Vaccine for 12/2016 - 05/2017 Season: Yes Influenza Administration Date for 12/2016 - 05/2017 Season: 03/10/17 Physical Exam - Vital signs Vitals: Temp Pulse BP Pulse Ox 98.5 F 92 117/61 99 07/17/17 21:59 07/17/17 21:59 07/17/17 21:59 07/17/17 21:59 Course - Vital Signs Vital signs: Temp Pulse Resp BP Pulse Ox 98.5 F 92 117/61 99 07/17/17 21:59 07/17/17 21:59 07/17/17 21:59 07/17/17 21:59
[2017-07-18 00:56] LABS: HEMATOCRIT 30.9 % (36.0-47.0); HEMOGLOBIN 11.1 g/dL (12.0-15.5); MEAN CORPUSCULAR HEMOGLOBIN 34.3 pg (27.0-33.4); MEAN CORPUSCULAR HGB CONC 35.9 g/dL (32.0-36.0); MEAN CORPUSCULAR VOLUME 96 fl (80-97); PLATELET COUNT 502 10^3/uL (150-450); RED BLOOD COUNT 3.23 10^6/uL (3.72-5.28); RED CELL DISTRIBUTION WIDTH 18.3 % (11.5-14.0); WHITE BLOOD COUNT 14.7 10^3/uL (4.0-10.5)
[2017-07-18 00:57] LABS: APPEARANCE,URINE CLEAR; BILIRUBIN,URINE NEGATIVE (NEGATIVE); COLOR,URINE YELLOW; GLUCOSE, URINE NEGATIVE (NEGATIVE); KETONES,URINE NEGATIVE (NEGATIVE); LEUKOCYTE ESTERASE,URINE NEGATIVE (NEGATIVE); NITRITE,URINE NEGATIVE (NEGATIVE); PROTEIN,URINE NEGATIVE (NEGATIVE); URINE SPECIFIC GRAVITY 1.011
[2017-07-18 01:05] LABS: ALANINE AMINOTRANSFERASE 16 U/L (9-52); ALBUMIN 4.6 g/dL (3.5-5.0); ALKALINE PHOSPHATASE 73 U/L (38-126); ANION GAP 12 (5-19); ASPARTATE AMINO TRANSFERASE 31 U/L (14-36); BILIRUBIN,DIRECT 0.4 mg/dL (0.0-0.4); BILIRUBIN,TOTAL 3.8 mg/dL (0.2-1.3); BLOOD UREA NITROGEN 5 mg/dL (7-20); CALCIUM 9.7 mg/dL (8.4-10.2); CARBON DIOXIDE 25 mmol/L (22-30); CHLORIDE 109 mmol/L (98-107); GLUCOSE 87 mg/dL (75-110); LIPASE 130.1 U/L (23-300); POTASSIUM 4.6 mmol/L (3.6-5.0); SODIUM 145.8 mmol/L (137-145); TOTAL PROTEIN 8.4 g/dL (6.3-8.2)
[2017-07-18 01:29] LABS: ABSOLUTE LYMPHOCYTES# (MANUAL) 2.6 10^3/uL (0.5-4.7); ABSOLUTE NEUTROPHILS# (MANUAL) 10.1 10^3/uL (1.7-8.2); BASOPHILS % (MANUAL) 0 % (0-2); EOSINOPHILS % (MANUAL) 6 % (0-6); LYMPHOCYTES % (MANUAL) 17 % (13-45); MONOCYTES % (MANUAL) 7 % (3-13); NUCLEATED RED BLOOD CELLS 2 /100 WBC (0); SEGMENTED NEUTROPHILS % (MAN) 69 % (42-78); TOTAL CELLS COUNTED 100
[2017-07-18 01:41] LABS: TOXIC GRANULATION SLIGHT; TOXIC VACUOLATION PRESENT
[2017-07-18 01:42] LABS: ANISOCYTOSIS 2+; POIKILOCYTOSIS 2+; POLYCHROMASIA SLIGHT; SCHISTOCYTES SLIGHT; SICKLE RED CELLS SLIGHT
[2017-07-18 01:43] LABS: HOWELL-JOLLY BODIES PRESENT; PAPPENHEIMER BODIES PRESENT; PLATELET COMMENT ADEQUATE; PLATELET GIANT PRESENT; PLATELET LARGE PRESENT; TARGET CELLS 2+; TEAR DROP CELLS 1+
== END 2017-07-18 01:25 | disposition home or self-care (01) ==
LOC: ER 21:52
DX: N93.8 Other specified abnormal uterine and vaginal bleeding (principal); Z86.718 Personal history of other venous thrombosis and embolism; Z90.49 Acquired absence of other specified parts of digestive tract; Z88.6 Allergy status to analgesic agent
CPT/HCPCS: 36415; 80053; 81001; 83690; 84702; 85025; 99281

== ENCOUNTER 2017-07-19 13:17 | Emergency (ER) | payer MEDICAID ==
--- NOTE | 2017-07-19 14:09 | ER Document Report ---
ED General - General Chief Complaint: Vaginal Bleeding Stated Complaint: VAGINAL BLEEDING Time Seen by Provider: 07/19/17 14:00 Notes: Patient presents with 3 days of intermittent vaginal bleeding. Last menstrual period was July 05, 2017. Patient states she has mild abdominal cramping but denies any vaginal discharge or smells or concerns of infection. She is concerned she may be . She denies any recent fevers cough congestion or illnesses. She also expresses she has mild nausea. No vomiting or diarrhea TRAVEL OUTSIDE OF THE [place] IN LAST 30 DAYS: No - Related Data Allergies/Adverse Reactions: morphine Adverse Reaction (Severe, Verified 07/19/17 13:17) RASH,SWELLING jacob peppers Adverse Reaction (Severe, Uncoded 07/19/17 13:17) throat closes Past Medical History - Social History Smoking Status: Unknown if Ever Smoked Family History: Reviewed & Not Pertinent, Hypertension, Other - Sickle cell. denies: Arthritis, CAD, COPD, CVA, DM, Hyperlipidemia, Malignancy, Thyroid Disfunction Patient has suicidal ideation: No Patient has homicidal ideation: No - Past Medical History Cardiac Medical History: Reports: Hx DVT - RUE s/p port placement Denies: Hx Congestive Heart Failure, Hx Coronary Artery Disease, Hx Heart Attack, Hx Hypertension, Hx Pulmonary Embolism Pulmonary Medical History: Reports: Hx Bronchitis - once in past per patient, Hx Pneumonia - history in past per patient Denies: Hx Asthma, Hx COPD, Hx Tuberculosis Neurological Medical History: Denies: Hx Cerebrovascular Accident, Hx Migraine, Hx Seizures Renal/ Medical History: Denies: Hx End Stage Renal Disease, Hx Kidney Stones, Hx Peritoneal Dialysis GI Medical History: Denies: Hx Cirrhosis, Hx Gastroesophageal Reflux Disease, Hx Ulcer Musculoskeltal Medical History: Denies Hx Arthritis, Denies Hx Multiple Sclerosis, Reports Hx Musculoskeletal Trauma Psychiatric Medical History: Reports: Hx Anxiety, Hx Depression - anxiety Denies: Hx Bipolar Disorder, Hx Schizophrenia Past Surgical History: Reports: Hx Cholecystectomy - 06/28/2015, Hx Vascular Surgery - port put in December,, Other - Port-A-Cath - Immunizations Immunizations up to date: Yes Hx Diphtheria, Pertussis, Tetanus Vaccination: Yes Review of Systems - Review of Systems Constitutional: No symptoms reported EENT: No symptoms reported Cardiovascular: No symptoms reported Respiratory: No symptoms reported Gastrointestinal: No symptoms reported, Nausea Genitourinary: No symptoms reported Female Genitourinary: Irregular period, Vaginal bleeding. denies: Vaginal discharge, Vaginal odor Musculoskeletal: No symptoms reported Skin: No symptoms reported Hematologic/Lymphatic: No symptoms reported Neurological/Psychological: No symptoms reported Physical Exam - Vital signs Vitals: Temp Pulse Resp BP Pulse Ox 98.1 F 89 14 112/67 98 07/19/17 13:21 07/19/17 13:21 07/19/17 13:21 07/19/17 13:21 07/19/17 13:21 - General General appearance: Appears well, Alert - HEENT Head: Normocephalic, Atraumatic Conjunctiva: Normal - Respiratory Respiratory status: No respiratory distress Chest status: Nontender Breath sounds: Normal Chest palpation: Normal - Cardiovascular Rhythm: Regular Heart sounds: Normal auscultation Murmur: No - Abdominal Inspection: Normal Distension: No distension Bowel sounds: Normal Tenderness: Nontender - Back Back: Normal, Nontender - Extremities General upper extremity: Normal inspection General lower extremity: Normal inspection - Psychological Associated symptoms: Normal affect, Normal mood Course - Re-evaluation Re-evalutation: 07/19/17 14:26 Patient's urine shows no signs of infection test is negative this time. Patient will be discharged with diagnosis of dysfunctional uterine bleeding. Advised to use ibuprofen over the next several days. If symptoms are to worsen return precautions provided I went to return for reevaluation. - Vital Signs Vital signs: Temp Pulse Resp BP Pulse Ox 98.1 F 89 14 112/67 98 07/19/17 13:21 07/19/17 13:21 07/19/17 13:21 07/19/17 13:21 07/19/17 13:21 - Laboratory Laboratory results interpreted by me: 07/19/17 14:06 Urine Blood MODERATE H Urine Urobilinogen 2.0 H Discharge - Discharge Clinical Impression: DUB (dysfunctional uterine bleeding) Condition: Good Disposition: HOME, SELF-CARE Instructions: Dysfunctional Uterine Bleeding ([facility]) Additional Instructions: Please use [id number] Motrin 600 mg every 6 hours as needed to help with resolution of bleeding. If you are to fill more than 1 maxi pad an hour for greater than 6 hours please return for reevaluation or for any other concerns.
[2017-07-19 14:20] LABS: APPEARANCE,URINE CLEAR; BILIRUBIN,URINE NEGATIVE (NEGATIVE); COLOR,URINE YELLOW; GLUCOSE, URINE NEGATIVE (NEGATIVE); KETONES,URINE NEGATIVE (NEGATIVE); LEUKOCYTE ESTERASE,URINE NEGATIVE (NEGATIVE); NITRITE,URINE NEGATIVE (NEGATIVE); PROTEIN,URINE NEGATIVE (NEGATIVE)
[2017-07-19 14:41] VITALS: BP 116/72
== END 2017-07-19 14:41 | disposition home or self-care (01) ==
LOC: ER 13:17
DX: N93.8 Other specified abnormal uterine and vaginal bleeding (principal); R10.9 Unspecified abdominal pain; R11.0 Nausea
CPT/HCPCS: 81001; 81025; 99284

== ENCOUNTER 2017-08-01 20:08 | Emergency (ER) | payer MEDICAID ==
--- NOTE | 2017-08-01 20:34 | ER Document Report ---
ED General - General Chief Complaint: Sickle Cell Crisis Stated Complaint: CHEST/BACK PAIN Time Seen by Provider: 08/01/17 20:32 Notes: Patient is a 22-year-old female with a known history of sickle cell anemia frequent pain crises who presents with chest and back pain that started approximately 3-4 hours ago after she got out of a pool. She describes it as a throbbing, stabbing pain to the chest and back. Symptoms have been worsening since onset. She took Motrin at home without any improvement of her pain. She states that this does feel somewhat similar to prior pain crises. She denies any shortness of breath, cough or sputum production. No fever or constitutional symptoms. She has not contacted her primary care doctor or annealing furnace operator regarding today's symptoms. TRAVEL OUTSIDE OF THE [place] IN LAST 30 DAYS: No - Related Data Allergies/Adverse Reactions: morphine Adverse Reaction (Severe, Verified 07/19/17 13:17) RASH,SWELLING jacob peppers Adverse Reaction (Severe, Uncoded 07/19/17 13:17) throat closes Past Medical History - General Information source: Patient - Social History Smoking Status: Never Smoker Frequency of alcohol use: None Drug Abuse: None Lives with: Family Family History: Reviewed & Not Pertinent, Hypertension, Other - Sickle cell. denies: Arthritis, CAD, COPD, CVA, DM, Hyperlipidemia, Malignancy, Thyroid Disfunction - Past Medical History Cardiac Medical History: Reports: Hx DVT - RUE s/p port placement Denies: Hx Congestive Heart Failure, Hx Coronary Artery Disease, Hx Heart Attack, Hx Hypertension, Hx Pulmonary Embolism Pulmonary Medical History: Reports: Hx Bronchitis - once in past per patient, Hx Pneumonia - history in past per patient Denies: Hx Asthma, Hx COPD, Hx Tuberculosis Neurological Medical History: Denies: Hx Cerebrovascular Accident, Hx Migraine, Hx Seizures Renal/ Medical History: Denies: Hx End Stage Renal Disease, Hx Kidney Stones, Hx Peritoneal Dialysis GI Medical History: Denies: Hx Cirrhosis, Hx Gastroesophageal Reflux Disease, Hx Ulcer Musculoskeltal Medical History: Denies Hx Arthritis, Denies Hx Multiple Sclerosis, Reports Hx Musculoskeletal Trauma Psychiatric Medical History: Reports: Hx Anxiety, Hx Depression - anxiety Denies: Hx Bipolar Disorder, Hx Schizophrenia Past Surgical History: Reports: Hx Cholecystectomy - 06/28/2015, Hx Vascular Surgery - port put in December,, Other - Port-A-Cath - Immunizations Immunizations up to date: Yes Hx Diphtheria, Pertussis, Tetanus Vaccination: Yes Review of Systems - Review of Systems Notes: Constitutional: Negative for fever. HENT: Negative for sore throat. Eyes: Negative for visual changes. Cardiovascular: Positive for chest pain. Respiratory: Negative for shortness of breath. Gastrointestinal: Negative for abdominal pain, vomiting or diarrhea. Genitourinary: Negative for dysuria. Musculoskeletal: Positive for upper back pain Skin: Negative for rash. Neurological: Negative for headaches, weakness or numbness. 10 point ROS negative except as marked above and in HPI. Physical Exam - Vital signs Vitals: Temp Pulse Resp BP Pulse Ox 98.7 F 106 H 18 112/66 97 08/01/17 20:22 08/01/17 20:22 08/01/17 20:22 08/01/17 20:22 08/01/17 20:22 Interpretation: Normal Notes: PHYSICAL EXAMINATION: GENERAL: Well-appearing, well-nourished and in no acute distress. HEAD: Atraumatic, normocephalic. EYES: Pupils equal round and reactive to light, extraocular movements intact, sclera anicteric, conjunctiva are normal. ENT: nares patent, oropharynx clear without exudates. Moist mucous membranes. NECK: Normal range of motion, supple without lymphadenopathy LUNGS: Breath sounds clear to auscultation bilaterally and equal. No wheezes rales or rhonchi. HEART: Regular rate and rhythm without murmurs ABDOMEN: Soft, nontender, normoactive bowel sounds. No guarding, no rebound. No masses appreciated. EXTREMITIES: Normal range of motion, no pitting or edema. No cyanosis. NEUROLOGICAL: No focal neurological deficits. Moves all extremities spontaneously and on command. PSYCH: Normal mood, normal affect. SKIN: Warm, Dry, normal turgor, no rashes or lesions noted. Course - Re-evaluation Re-evalutation: 08/02/17 0100 Presentation is most consistent with an uncomplicated sickle cell pain crisis. Patient has no evidence of an aplastic crisis on labs. Chest x-ray and vitals are not consistent with acute chest syndrome. Vitals have remained within normal limits here in the emergency department. Patient's pain has been able to be controlled using IV analgesia. Troponin was sent as the patient expressed some concern for possible history of ACS in her medical record has never reviewed this history in the past this troponin as well as an EKG is normal. The patient is agreeable to discharge home at this time. I recommended that they follow closely with their primary annealing furnace operator. At this time will discharge with return precautions and follow-up recommendations. Verbal discharge instructions given a the bedside and opportunity for questions given. Medication warnings reviewed. Patient is in agreement with this plan and has verbalized understanding of return precautions and the need for primary care follow-up in the next 24-72 hours. - Vital Signs Vital signs: Temp Pulse Resp BP Pulse Ox 98.7 F 106 H 18 106/66 100 08/01/17 20:22 08/01/17 20:22 08/02/17 00:55 08/02/17 00:56 08/02/17 00:55 - Laboratory Result Diagrams: 08/01/17 21:02 08/01/17 21:02 Laboratory results interpreted by me: 08/01/17 08/01/17 21:02 21:02 WBC 18.5 H RBC 2.68 L Hgb 9.5 L Hct 26.0 L MCH 35.3 H MCHC 36.5 H RDW 16.0 H Basophils % 2.2 H Absolute Neutrophils 13.4 H Abs Neuts (Manual) 12.0 H Abs Monocytes (Manual) 1.9 H Absolute Basophils 0.4 H Retic Count (auto) 9.62 H Absolute Retic 0.258 H Sodium 147.6 H Potassium 3.1 L Chloride 109 H BUN 5 L - Diagnostic Test Radiology reviewed: Image reviewed, Reports reviewed Radiology results interpreted by me: 08/01/17 21:47 Chest x-ray: No acute infiltrate or pneumothorax - EKG Interpretation by Me Additional EKG results interpreted by me: 08/01/17 21:47 Sinus tachycardia. Rate 103. No ST elevations or depressions. QTC is 440. Discharge - Discharge Clinical Impression: Vaso-occlusive sickle cell crisis, Sickle cell pain crisis Chest pain Qualifiers: Chest pain type: unspecified Qualified Code(s): R07.9 - Chest pain, unspecified Condition: Good Disposition: HOME, SELF-CARE Additional Instructions: You were seen today for sickle cell pain crisis. Please follow-up with your annealing furnace operator. Returning to the ED if you have worsening pain, fever greater than 100.4, shortness of breath, persistent vomiting, or any other symptoms that are concerning to you.
[2017-08-01] MEDS: HYDROMORPHONE HCL INJ/PF 2 MG/ML AMPULE IV PRN ×3 (21:01→22:20)
--- NOTE | 2017-08-01 21:13 | EKG REPORT ---
SEVERITY:- OTHERWISE NORMAL ECG - SINUS TACHYCARDIA : Confirmed by: Nathan Lopez 01-Aug-2017 21:12:39
[2017-08-01 21:22] LABS: HEMOGLOBIN 9.5 g/dL (12.0-15.5); WHITE BLOOD COUNT 18.5 10^3/uL (4.0-10.5)
--- NOTE | 2017-08-01 21:28 | RADIOLOGY REPORT (SQ) ---
EXAM DESCRIPTION: CHEST SINGLE VIEW COMPLETED DATE/TIME: 08/01/2017 9:08 pm REASON FOR STUDY: sickle cell, cp COMPARISON: 07/16/2017 EXAM PARAMETERS: NUMBER OF VIEWS: One view. TECHNIQUE: Single frontal radiographic view of the chest acquired. RADIATION DOSE: NA LIMITATIONS: None. FINDINGS: LUNGS AND PLEURA: No opacities, masses or pneumothorax. No pleural effusion. MEDIASTINUM AND HILAR STRUCTURES: No masses. Contour normal. HEART AND VASCULAR STRUCTURES: Heart normal in size. Normal vasculature. BONES: No acute findings. HARDWARE: Venous access catheter at the cavoatrial junction. OTHER: No other significant finding. IMPRESSION: NO ACUTE RADIOGRAPHIC FINDING IN THE CHEST. TECHNICAL DOCUMENTATION: JOB ID: [id number] [employer]- All Rights Reserved Reading location - IP/workstation name: [email or web address]
[2017-08-01 21:34] LABS: ABSOLUTE LYMPHOCYTES# (MANUAL) 3.9 10^3/uL (0.5-4.7); ABSOLUTE MONOCYTES # (MANUAL) 1.9 10^3/uL (0.1-1.4); ANION GAP 13 (5-19); BASOPHILS % (MANUAL) 1 % (0-2); BLOOD UREA NITROGEN 5 mg/dL (7-20); CALCIUM 8.9 mg/dL (8.4-10.2); CARBON DIOXIDE 26 mmol/L (22-30); CHLORIDE 109 mmol/L (98-107); EOSINOPHILS % (MANUAL) 3 % (0-6); GLUCOSE 96 mg/dL (75-110); LYMPHOCYTES % (MANUAL) 21 % (13-45); MONOCYTES % (MANUAL) 10 % (3-13); POTASSIUM 3.1 mmol/L (3.6-5.0); SEGMENTED NEUTROPHILS % (MAN) 65 % (42-78); SODIUM 147.6 mmol/L (137-145); TOTAL CELLS COUNTED 100
[2017-08-01 21:35] LABS: ANISOCYTOSIS 1+; PLATELET COMMENT ADEQUATE; POIKILOCYTOSIS SLIGHT; TARGET CELLS SLIGHT; TOXIC GRANULATION SLIGHT
[2017-08-01 21:42] LABS: ABSOLUTE BASOPHILS # (AUTO) 0.4 10^3/uL (0.0-0.2); ABSOLUTE EOSINOPHILS # (AUTO) 0.3 10^3/uL (0.0-0.6); ABSOLUTE LYMPHOCYTES (AUTO) 3.1 10^3/uL (0.5-4.7); ABSOLUTE MONOCYTES (AUTO) 1.4 10^3/uL (0.1-1.4); ABSOLUTE NEUT (AUTO) 13.4 10^3/uL (1.7-8.2); ABSOLUTE RETICS # 0.258 10^6/uL (0.028-0.122); BASOPHILS % (AUTO) 2.2 % (0-2); EOSINOPHILS % (AUTO) 1.5 % (0-6); LYMPHOCYTES % (AUTO) 16.5 % (13-45); MEAN CORPUSCULAR HEMOGLOBIN 35.3 pg (27.0-33.4); MEAN CORPUSCULAR HGB CONC 36.5 g/dL (32.0-36.0); MEAN CORPUSCULAR VOLUME 97 fl (80-97); MONOCYTES % (AUTO) 7.7 % (3-13); PLATELET COUNT 367 10^3/uL (150-450); RED BLOOD COUNT 2.68 10^6/uL (3.72-5.28); RETICULOCYTE COUNT (AUTO) 9.62 % (0.66-2.85); SEGMENTED NEUTROPHILS % (AUTO) 72.1 % (42-78); TOTAL CELLS COUNTED % (AUTO) 100 %
[2017-08-02] MEDS ORDERED: HYDROMORPHONE HCL INJ/PF 2 MG/ML AMPULE IV ONE (00:09)
[2017-08-02 01:00] VITALS: BP 106/66
== END 2017-08-02 01:03 | disposition home or self-care (01) ==
LOC: ER 20:08
DX: D57.00 Hb-SS disease with crisis, unspecified (principal); M54.89 Other dorsalgia; R07.9 Chest pain, unspecified; R00.0 Tachycardia, unspecified; Z86.718 Personal history of other venous thrombosis and embolism
CPT/HCPCS: 93005; 36591; 96376; 99284; 96374; 36415; 85025; 85045; 80048; 84484; 71045; 93010; J1170 ×2

== ENCOUNTER 2017-08-12 20:16 | Emergency (ER) | payer OTHER, MEDICAID ==
[2017-08-12] MEDS ORDERED: RINGERS SOLUTION,LACTATED 1,000 ML IV ONE (20:20)
[2017-08-12] MEDS ORDERED: FENTANYL CITRATE INJ/PF 100 MCG/2 ML AMPUL IV ONE ×2 (20:21→21:26)
--- NOTE | 2017-08-12 20:23 | ER Document Report ---
ED Medical Screen (RME) - General Stated Complaint: WEAKNESS Time Seen by Provider: 08/12/17 20:19 Notes: RAPID MEDICAL EVALUATION DISCLOSURE I have seen this patient as part of a Rapid Medical Evaluation and, if applicable, placed any initially appropriate orders. The patient will be seen and fully evaluated, including a full history and physical exam, by a provider ( in Main ED or Fast Track) when a room becomes available. 22-year-old female PMH sickle cell here with complaints of chest and low back pain for the past few days. She has been in long term and therefore has been without her home pain medication, hydroxyurea, and folic acid. The chest and low back are the usual locations of her pain crises. Also states that her oxygen level was 92% earlier today but here is 94%. No shortness of breath fevers chills. EXAM Mild TTP of anterior chest wall Mild TTP of bilateral lumbar paraspinal musculature TRAVEL OUTSIDE OF THE [place] IN LAST 30 DAYS: No - Related Data Allergies/Adverse Reactions: morphine Adverse Reaction (Severe, Verified 07/19/17 13:17) RASH,SWELLING jacob peppers Adverse Reaction (Severe, Uncoded 07/19/17 13:17) throat closes Past Medical History - Social History Family history: Reviewed & Not Pertinent, Other - Pt was adopted. Does not know family history - Past Medical History Cardiac Medical History: Reports: Hx DVT - RUE s/p port placement Denies: Hx Congestive Heart Failure, Hx Coronary Artery Disease, Hx Heart Attack, Hx Hypertension, Hx Pulmonary Embolism Pulmonary Medical History: Reports: Hx Bronchitis - once in past per patient, Hx Pneumonia - history in past per patient Denies: Hx Asthma, Hx COPD, Hx Tuberculosis Neurological Medical History: Denies: Hx Cerebrovascular Accident, Hx Migraine, Hx Seizures Renal/ Medical History: Denies: Hx End Stage Renal Disease, Hx Kidney Stones, Hx Peritoneal Dialysis GI Medical History: Denies: Hx Cirrhosis, Hx Gastroesophageal Reflux Disease, Hx Ulcer Musculoskeltal Medical History: Denies Hx Arthritis, Denies Hx Multiple Sclerosis, Reports Hx Musculoskeletal Trauma Psychiatric Medical History: Reports: Hx Anxiety, Hx Depression - anxiety Denies: Hx Bipolar Disorder, Hx Schizophrenia Past Surgical History: Reports: Hx Cholecystectomy - 06/28/2015, Hx Vascular Surgery - port put in December,, Other - Port-A-Cath - Immunizations Immunizations up to date: Yes Hx Diphtheria, Pertussis, Tetanus Vaccination: Yes History of Influenza Vaccine for 12/2016 - 05/2017 Season: Yes Influenza Administration Date for 12/2016 - 05/2017 Season: 03/10/17
--- NOTE | 2017-08-12 21:14 | EKG REPORT ---
SEVERITY:- NORMAL ECG - SINUS RHYTHM : Confirmed by: Nathan Lopez 12-Aug-2017 21:12:41
[2017-08-12] MEDS ORDERED: HYDROMORPHONE HCL INJ/PF 2 MG/ML AMPULE IV ONE ×2 (21:24→23:22)
--- NOTE | 2017-08-12 21:24 | RADIOLOGY REPORT (SQ) ---
EXAM DESCRIPTION: CHEST 2 VIEWS COMPLETED DATE/TIME: 08/12/2017 8:56 pm REASON FOR STUDY: CP COMPARISON: 07/16/2017 EXAM PARAMETERS: NUMBER OF VIEWS: two views TECHNIQUE: Digital Frontal and Lateral radiographic views of the chest acquired. RADIATION DOSE: NA LIMITATIONS: none FINDINGS: LUNGS AND PLEURA: No acute opacities, masses or pneumothorax. No pleural effusion. MEDIASTINUM AND HILAR STRUCTURES: No masses or contour abnormalities. HEART AND VASCULAR STRUCTURES: Heart normal size. No evidence for failure. BONES: No acute findings. HARDWARE: Right chest port. OTHER: No other significant finding. IMPRESSION: NO ACUTE RADIOGRAPHIC FINDING IN THE CHEST. TECHNICAL DOCUMENTATION: JOB ID: [id number] [place]-72 2010 [employer]- All Rights Reserved Reading location - IP/workstation name: [email or web address]
[2017-08-12] MEDS ORDERED: DIPHENHYDRAMINE HCL 50 MG/ML VIAL IV ONE (21:25)
[2017-08-12] MEDS ORDERED: RIVAROXABAN 10 MG TABLET PO ONE (21:28)
[2017-08-12 21:56] LABS: ABSOLUTE RETICS # 0.278 10^6/uL (0.028-0.122); HEMATOCRIT 23.9 % (36.0-47.0); HEMOGLOBIN 8.8 g/dL (12.0-15.5); MEAN CORPUSCULAR HEMOGLOBIN 35.7 pg (27.0-33.4); MEAN CORPUSCULAR HGB CONC 36.6 g/dL (32.0-36.0); MEAN CORPUSCULAR VOLUME 98 fl (80-97); PLATELET COUNT 423 10^3/uL (150-450); RED BLOOD COUNT 2.45 10^6/uL (3.72-5.28); RED CELL DISTRIBUTION WIDTH 16.9 % (11.5-14.0); RETICULOCYTE COUNT (AUTO) 11.35 % (0.66-2.85); WHITE BLOOD COUNT 13.3 10^3/uL (4.0-10.5)
[2017-08-12 22:13] LABS: ANION GAP 9 (5-19); BLOOD UREA NITROGEN 6 mg/dL (7-20); CALCIUM 9.3 mg/dL (8.4-10.2); CARBON DIOXIDE 28 mmol/L (22-30); CHLORIDE 106 mmol/L (98-107); GLUCOSE 90 mg/dL (75-110); POTASSIUM 4.1 mmol/L (3.6-5.0); SODIUM 143.1 mmol/L (137-145)
[2017-08-12 22:19] LABS: ABSOLUTE LYMPHOCYTES# (MANUAL) 4.5 10^3/uL (0.5-4.7); ABSOLUTE MONOCYTES # (MANUAL) 0.7 10^3/uL (0.1-1.4); ABSOLUTE NEUTROPHILS# (MANUAL) 7.7 10^3/uL (1.7-8.2); BAND NEUTROPHILS % (MANUAL) 1 % (3-5); BASOPHILS % (MANUAL) 0 % (0-2); EOSINOPHILS % (MANUAL) 3 % (0-6); LYMPHOCYTES % (MANUAL) 32 % (13-45); MONOCYTES % (MANUAL) 5 % (3-13); NUCLEATED RED BLOOD CELLS 3 /100 WBC (0); SEGMENTED NEUTROPHILS % (MAN) 57 % (42-78); TOTAL CELLS COUNTED 100
[2017-08-12 22:24] LABS: ANISOCYTOSIS 1+; OVALOCYTES SLIGHT; PLATELET COMMENT ADEQUATE; POIKILOCYTOSIS 1+; SCHISTOCYTES SLIGHT; TARGET CELLS 1+
[2017-08-12 22:26] LABS: POLYCHROMASIA SLIGHT; SICKLE RED CELLS SLIGHT
--- NOTE | 2017-08-12 23:52 | ER Document Report ---
ED General - General Chief Complaint: Sickle Cell Crisis Stated Complaint: WEAKNESS Time Seen by Provider: 08/12/17 20:19 Mode of Arrival: Ambulatory Information source: Patient Notes: This is a 22-year-old cell disease (followed by Dr. Baum), history of jugular vein clot (Xarelto). Patient presents to the emergency room feeling weak and having 1 day of left arm and left leg pain consistent with her typical sickle cell pain. Patient is in custody currently and is brought in by the police. She does state that she has not taken her Xarelto for 2 days (she takes 20 mg at night). She denies any shortness of breath. TRAVEL OUTSIDE OF THE [place] IN LAST 30 DAYS: No - HPI Onset: This afternoon Onset/Duration: Gradual Quality of pain: Dull Severity: Moderate Pain Level: 2 Associated symptoms: denies: Chest pain, Fever, Shortness of breath Exacerbated by: Movement Relieved by: Denies Similar symptoms previously: Yes Recently seen / treated by doctor: Yes - Related Data Allergies/Adverse Reactions: morphine Adverse Reaction (Severe, Verified 07/19/17 13:17) RASH,SWELLING jacob peppers Adverse Reaction (Severe, Uncoded 07/19/17 13:17) throat closes Past Medical History - General Information source: Patient - Social History Smoking Status: Current Every Day Smoker Cigarette use (# per day): Yes - Half a pack per day Chew tobacco use (# tins/day): No Frequency of alcohol use: None Drug Abuse: None Lives with: Family Family History: Reviewed & Not Pertinent, Hypertension, Other - Sickle cell. denies: Arthritis, CAD, COPD, CVA, DM, Hyperlipidemia, Malignancy, Thyroid Disfunction Patient has suicidal ideation: No Patient has homicidal ideation: No - Past Medical History Cardiac Medical History: Reports: Hx DVT - RUE s/p port placement Denies: Hx Congestive Heart Failure, Hx Coronary Artery Disease, Hx Heart Attack, Hx Hypertension, Hx Pulmonary Embolism Pulmonary Medical History: Reports: Hx Bronchitis - once in past per patient, Hx Pneumonia - history in past per patient Denies: Hx Asthma, Hx COPD, Hx Tuberculosis Neurological Medical History: Denies: Hx Cerebrovascular Accident, Hx Migraine, Hx Seizures Renal/ Medical History: Denies: Hx End Stage Renal Disease, Hx Kidney Stones, Hx Peritoneal Dialysis GI Medical History: Denies: Hx Cirrhosis, Hx Gastroesophageal Reflux Disease, Hx Ulcer Musculoskeltal Medical History: Denies Hx Arthritis, Denies Hx Multiple Sclerosis, Reports Hx Musculoskeletal Trauma Psychiatric Medical History: Reports: Hx Anxiety, Hx Depression - anxiety Denies: Hx Bipolar Disorder, Hx Schizophrenia Past Surgical History: Reports: Hx Cholecystectomy - 06/28/2015, Hx Vascular Surgery - port put in December,, Other - Port-A-Cath - Immunizations Immunizations up to date: Yes Hx Diphtheria, Pertussis, Tetanus Vaccination: Yes Review of Systems - Review of Systems Constitutional: denies: Chills, Fever EENT: No symptoms reported Cardiovascular: No symptoms reported Respiratory: No symptoms reported Gastrointestinal: No symptoms reported Genitourinary: No symptoms reported Female Genitourinary: No symptoms reported Musculoskeletal: See HPI Skin: No symptoms reported Hematologic/Lymphatic: No symptoms reported Neurological/Psychological: No symptoms reported Physical Exam - Vital signs Vitals: Temp Pulse Resp BP Pulse Ox 98.3 F 81 18 107/47 L 95 08/12/17 20:16 08/12/17 20:16 08/12/17 20:16 08/12/17 20:16 08/12/17 20:16 Notes: Physical exam: GENERAL: 22-year-old female, alert and oriented 3, vital signs stable and appears well. HEAD: Atraumatic, normocephalic. EYES: Pupils equal round and reactive to light, extraocular movements intact, sclera anicteric, conjunctiva are normal. ENT: TMs normal, nares patent, oropharynx clear without exudates. Moist mucous membranes. NECK: Normal range of motion, supple without obvious mass or JVD. LUNGS: Breath sounds clear to auscultation bilaterally and equal. No wheezes rales or rhonchi. HEART: Regular rate and rhythm without murmurs, rubs or gallops. ABDOMEN: Soft, normoactive bowel sounds. No tenderness to palpation. No guarding, no rebound. No masses appreciated. EXTREMITIES: Normal range of motion, no pitting or edema. No clubbing or cyanosis. NEUROLOGICAL: Cranial nerves II through XII grossly intact. Normal speech, moving all extremities. PSYCH: Normal mood, normal affect. SKIN: Warm, Dry, normal turgor, no rashes or lesions noted. Course - Re-evaluation Re-evalutation: 08/12/17 23:48 Patient's anemia is approximately baseline. Her reticulocyte count is good. She looks well. She is eating currently. She did get tonight's dose of Xarelto in the ER and her mother will be bringing her Xarelto tomorrow to the patient in custody. I had the police who is escorting the patient call the mother to confirm. - Vital Signs Vital signs: Temp Pulse Resp BP Pulse Ox 97.8 F 93 16 110/45 L 95 08/13/17 00:27 08/13/17 00:27 08/13/17 00:27 08/13/17 00:27 08/13/17 00:27 - Laboratory Result Diagrams: 08/12/17 21:42 08/12/17 21:42 Laboratory results interpreted by me: 08/12/17 08/12/17 21:42 21:42 WBC 13.3 H RBC 2.45 L Hgb 8.8 L Hct 23.9 L MCV 98 H MCH 35.7 H MCHC 36.6 H RDW 16.9 H Band Neutrophils % 1 L Retic Count (auto) 11.35 H Absolute Retic 0.278 H BUN 6 L Creatinine 0.48 L - Diagnostic Test Radiology reviewed: Image reviewed, Reports reviewed - Chest x-ray is clear - EKG Interpretation by Me Rate: Normal Rhythm: NSR - EKG shows normal sinus rhythm with a ventricular rate of 66, no acute ST-T wave changes Discharge - Discharge Clinical Impression: Sickle cell crisis Condition: Stable Disposition: HOME, SELF-CARE Additional Instructions: As we discussed, it is important that you take your Xarelto. You were given 20 mg of Xarelto this evening in the ER. At the mother bring a your medicines while in custody. After getting out of custody, follow-up with Dr. Baum Return to the ER for worsening pain, fever or any concerns or getting worse.
[2017-08-13] MEDS ORDERED: DIPHENHYDRAMINE HCL 50 MG/ML VIAL IV ONE (00:16)
[2017-08-13 00:27] VITALS: BP 110/45
== END 2017-08-13 00:28 | disposition home or self-care (01) ==
LOC: ER 20:16
DX: D57.00 Hb-SS disease with crisis, unspecified (principal); R53.1 Weakness; F17.210 Nicotine dependence, cigarettes, uncomplicated; Z79.02 Long term (current) use of antithrombotics/antiplatelets; Z86.718 Personal history of other venous thrombosis and embolism; Z90.49 Acquired absence of other specified parts of digestive tract; Z88.6 Allergy status to analgesic agent
CPT/HCPCS: 93005; 36591; 99284; 96374; 96375; 36415; 85025; 85045; 80048; 84484; 71046; 93010; J1200 ×2; J1170; J7120

== ENCOUNTER 2017-08-22 11:50 | Outpatient (CLI) | payer MEDICAID ==
[2017-08-22] MEDS ORDERED: NORMAL SALINE 1000 ML 1,000 ML IV PRN (12:30)
[2017-08-22] MEDS ORDERED: HYDROMORPHONE HCL INJ/PF 2 MG/ML AMPULE INJ PRN (12:32)
[2017-08-22 12:36] VITALS: BP 103/47
== END 2017-08-22 13:32 | disposition home or self-care (01) ==
LOC: II 11:50 → 5TH 11:54 → II 13:32
PROVIDERS: ATTEND Internal Medicine
PROC: 3E043GC Introduction of Other Therapeutic Substance into Central Vein, Percutaneous Approach (ICD-10-PCS; principal; 2017-08-22)
PROC: 3E0437Z Introduction of Electrolytic and Water Balance Substance into Central Vein, Percutaneous Approach (ICD-10-PCS; 2017-08-22)
DX: D57.1 Sickle-cell disease without crisis (principal); R52 Pain, unspecified; E86.0 Dehydration
CPT/HCPCS: 96374; 96361; J1170; 96360; 96375

== ENCOUNTER 2017-08-22 19:48 | Emergency (ER) | payer MEDICAID ==
[2017-08-22] MEDS ORDERED: HYDROMORPHONE HCL INJ/PF 2 MG/ML AMPULE IV ONE (21:27)
[2017-08-22] MEDS ORDERED: DIPHENHYDRAMINE HCL 50 MG/ML VIAL IV ONE (21:28)
[2017-08-22] MEDS ORDERED: NORMAL SALINE 1000 ML 1,000 ML IV ONE ×2 (21:28)
[2017-08-22] MEDS ORDERED: METOCLOPRAMIDE HCL INJ/PF 10 MG/2 ML SDV IV ONE (21:28)
--- NOTE | 2017-08-22 21:29 | ER Document Report ---
ED General - General Chief Complaint: Sickle Cell Crisis Stated Complaint: LEG PAIN Time Seen by Provider: 08/22/17 21:22 Notes: Patient is a 22-year-old female with a history of sickle cell disease that comes emergency department for chief complaint of pain in her right leg that will not go away. She states she typically gets pain in her leg with sickle crisis, she states her pain meds helped some but the pain is a little worse and because it continued for several days she came in for treatment. She denies fever, nausea vomiting, shortness of breath, swelling in the leg, injury of the leg. TRAVEL OUTSIDE OF THE [place] IN LAST 30 DAYS: No - Related Data Allergies/Adverse Reactions: morphine Adverse Reaction (Severe, Verified 07/19/17 13:17) RASH,SWELLING jacob peppers Adverse Reaction (Severe, Uncoded 07/19/17 13:17) throat closes Past Medical History - General Information source: Patient - Social History Smoking Status: Current Every Day Smoker Chew tobacco use (# tins/day): No Frequency of alcohol use: None Drug Abuse: None Lives with: Family Family History: Reviewed & Not Pertinent, Hypertension, Other - Sickle cell. denies: Arthritis, CAD, COPD, CVA, DM, Hyperlipidemia, Malignancy, Thyroid Disfunction Patient has suicidal ideation: No Patient has homicidal ideation: No - Past Medical History Cardiac Medical History: Reports: Hx DVT - RUE s/p port placement Denies: Hx Congestive Heart Failure, Hx Coronary Artery Disease, Hx Heart Attack, Hx Hypertension, Hx Pulmonary Embolism Pulmonary Medical History: Reports: Hx Bronchitis - once in past per patient, Hx Pneumonia - history in past per patient Denies: Hx Asthma, Hx COPD, Hx Tuberculosis Neurological Medical History: Denies: Hx Cerebrovascular Accident, Hx Migraine, Hx Seizures Renal/ Medical History: Denies: Hx End Stage Renal Disease, Hx Kidney Stones, Hx Peritoneal Dialysis GI Medical History: Denies: Hx Cirrhosis, Hx Gastroesophageal Reflux Disease, Hx Ulcer Musculoskeltal Medical History: Denies Hx Arthritis, Denies Hx Multiple Sclerosis, Reports Hx Musculoskeletal Trauma Psychiatric Medical History: Reports: Hx Anxiety, Hx Depression - anxiety Denies: Hx Bipolar Disorder, Hx Schizophrenia Past Surgical History: Reports: Hx Cholecystectomy - 06/28/2015, Hx Vascular Surgery - port put in December,, Other - Port-A-Cath - Immunizations Immunizations up to date: Yes Hx Diphtheria, Pertussis, Tetanus Vaccination: Yes Review of Systems - Review of Systems Constitutional: No symptoms reported EENT: No symptoms reported Cardiovascular: No symptoms reported Respiratory: No symptoms reported Gastrointestinal: No symptoms reported Genitourinary: No symptoms reported Female Genitourinary: No symptoms reported Musculoskeletal: See HPI Skin: No symptoms reported Hematologic/Lymphatic: See HPI Neurological/Psychological: No symptoms reported Physical Exam - Vital signs Vitals: Temp Pulse Resp BP Pulse Ox 98.7 F 72 16 97/49 L 100 08/22/17 20:13 08/22/17 20:13 08/22/17 20:13 08/22/17 20:13 08/22/17 20:13 - Notes Notes: GENERAL: Alert, interacts well. No acute distress. HEAD: Normocephalic, atraumatic. EYES: Pupils equal, round, and reactive to light. Extraocular movements intact. ENT: Oral mucosa moist, tongue midline. NECK: Full range of motion. Supple. Trachea midline. LUNGS: Clear to auscultation bilaterally, no wheezes, rales, or rhonchi. No respiratory distress. HEART: Regular rate and rhythm. No murmur ABDOMEN: Soft, non-tender. Non-distended. Bowel sounds present in all 4 quadrants. EXTREMITIES: Moves all 4 extremities spontaneously. No edema, normal radial and dorsalis pedis pulses bilaterally. No cyanosis. BACK: no cervical, thoracic, lumbar midline tenderness. No saddle anesthesia, normal distal neurovascular exam. NEUROLOGICAL: Alert and oriented x3. Normal speech. [cranial nerves II through XII grossly intact]. PSYCH: Normal affect, normal mood. SKIN: Warm, dry, normal turgor. No rashes or lesions noted. Course - Re-evaluation Re-evalutation: Patient in no signs of distress on exam. No tachycardia or fever. Soft abdomen , clear lungs, unremarkable physical exam. CBC shows leukocytosis although this is consistent with previous labs, hemoglobin without significant change, overall CBC without significant change. Chemistry does not show significant elevation of bilirubin, does not suggest severe hemolysis. Patient states that she thinks she was stressed and this was because her symptoms. She is not suicidal or homicidal. On reevaluation patient states he actually feels a lot better, asks for a small dose and then discharge home, states she will follow-up with her provider. Discussed return precautions, patient states understanding and agreement. - Vital Signs Vital signs: Temp Pulse Resp BP Pulse Ox 97.3 F 82 16 102/68 96 08/23/17 01:39 08/23/17 01:39 08/23/17 01:39 08/23/17 01:39 08/23/17 01:39 - Laboratory Result Diagrams: 08/22/17 23:20 08/22/17 23:20 Laboratory results interpreted by me: 08/22/17 08/22/17 23:20 23:20 WBC 16.4 H RBC 2.33 L Hgb 8.7 L Hct 24.5 L MCV 105 H D MCH 37.5 H RDW 18.0 H Plt Count 451 H Abs Neuts (Manual) 8.9 H Abs Lymphs (Manual) 6.7 H Retic Count (auto) 10.58 H Absolute Retic 0.247 H Chloride 110 H BUN 4 L Creatinine 0.49 L Total Bilirubin 4.3 H Direct Bilirubin 0.5 H Discharge - Discharge Clinical Impression: Sickle cell pain crisis Condition: Stable Disposition: HOME, SELF-CARE Additional Instructions: Follow-up with your provider in the next 1-3 days for additional evaluation and management. Return if you worsen including fever of 100.4 or greater, shortness of breath, vomiting, or any other concerning or worsening symptoms. Referrals: JOIE MOREIRA MD [Primary Care Provider] - Follow up as needed
[2017-08-22 23:34] LABS: ABSOLUTE RETICS # 0.247 10^6/uL (0.028-0.122); HEMATOCRIT 24.5 % (36.0-47.0); HEMOGLOBIN 8.7 g/dL (12.0-15.5); MEAN CORPUSCULAR HEMOGLOBIN 37.5 pg (27.0-33.4); MEAN CORPUSCULAR HGB CONC 35.8 g/dL (32.0-36.0); PLATELET COUNT 451 10^3/uL (150-450); RED BLOOD COUNT 2.33 10^6/uL (3.72-5.28); RETICULOCYTE COUNT (AUTO) 10.58 % (0.66-2.85); WHITE BLOOD COUNT 16.4 10^3/uL (4.0-10.5)
[2017-08-22 23:50] LABS: ALANINE AMINOTRANSFERASE 19 U/L (9-52); ALKALINE PHOSPHATASE 81 U/L (38-126); ANION GAP 12 (5-19); ASPARTATE AMINO TRANSFERASE 33 U/L (14-36); BILIRUBIN,DIRECT 0.5 mg/dL (0.0-0.4); BILIRUBIN,TOTAL 4.3 mg/dL (0.2-1.3); BLOOD UREA NITROGEN 4 mg/dL (7-20); CALCIUM 8.7 mg/dL (8.4-10.2); CARBON DIOXIDE 22 mmol/L (22-30); CHLORIDE 110 mmol/L (98-107); GLUCOSE 105 mg/dL (75-110); POTASSIUM 3.9 mmol/L (3.6-5.0); SODIUM 143.6 mmol/L (137-145); TOTAL PROTEIN 7.1 g/dL (6.3-8.2)
[2017-08-22 23:59] LABS: ABSOLUTE LYMPHOCYTES# (MANUAL) 6.7 10^3/uL (0.5-4.7); ABSOLUTE MONOCYTES # (MANUAL) 0.5 10^3/uL (0.1-1.4); ABSOLUTE NEUTROPHILS# (MANUAL) 8.9 10^3/uL (1.7-8.2); BASOPHILS % (MANUAL) 0 % (0-2); EOSINOPHILS % (MANUAL) 2 % (0-6); LYMPHOCYTES % (MANUAL) 41 % (13-45); MONOCYTES % (MANUAL) 3 % (3-13); NUCLEATED RED BLOOD CELLS 1 /100 WBC (0); SEGMENTED NEUTROPHILS % (MAN) 54 % (42-78); TOTAL CELLS COUNTED 100
[2017-08-23 00:07] LABS: PLATELET COMMENT ADEQUATE
[2017-08-23 00:08] LABS: ANISOCYTOSIS 1+; POLYCHROMASIA SLIGHT; TARGET CELLS 1+
[2017-08-23 00:10] LABS: MEAN CORPUSCULAR VOLUME 105 fl (80-97)
[2017-08-23] MEDS ORDERED: DIPHENHYDRAMINE HCL 50 MG/ML VIAL IV ONE (00:28)
[2017-08-23] MEDS ORDERED: HYDROMORPHONE HCL INJ/PF 2 MG/ML AMPULE IV ONE (00:28)
[2017-08-23 01:41] VITALS: BP 102/68
== END 2017-08-23 01:42 | disposition home or self-care (01) ==
LOC: ER 19:48
DX: D57.00 Hb-SS disease with crisis, unspecified (principal); Z86.718 Personal history of other venous thrombosis and embolism; Z90.49 Acquired absence of other specified parts of digestive tract
CPT/HCPCS: 36591; 96376; 99284; 96361; 96374; 96375; 36415; 84703; 85025; 85045; 80053; J1200 ×2; J2765; J1170 ×2; J7030

== ENCOUNTER 2017-08-27 17:35 | Outpatient (CLI) | payer MEDICAID ==
[2017-08-27] MEDS ORDERED: HYDROMORPHONE HCL INJ/PF 2 MG/ML AMPULE IV PRN (18:00)
[2017-08-27] MEDS ORDERED: NORMAL SALINE 1000 ML 1,000 ML IV ONE (18:30)
[2017-08-27 20:00] VITALS: BP 107/43
== END 2017-08-27 19:53 | disposition home or self-care (01) ==
LOC: ER 17:35 → 2N 17:36 → ER 19:53
PROVIDERS: ATTEND Internal Medicine
PROC: 3E0437Z Introduction of Electrolytic and Water Balance Substance into Central Vein, Percutaneous Approach (ICD-10-PCS; principal; 2017-08-27)
PROC: 3E043GC Introduction of Other Therapeutic Substance into Central Vein, Percutaneous Approach (ICD-10-PCS; 2017-08-27)
DX: D57.1 Sickle-cell disease without crisis (principal); R52 Pain, unspecified; E86.0 Dehydration
CPT/HCPCS: J1170; J7030; 96361; 96374

== ENCOUNTER 2017-08-28 14:22 | Outpatient (CLI) | payer MEDICAID ==
[~2017-08-28 14:22] MED LIST changes: -CEFAZOLIN 1 GM/D5W RTU 1 GM/50 ML RTUPB IV PRN; +HYDROMORPHONE HCL INJ/PF 2 MG/ML AMPULE INJ PRN; -LACTATED RINGERS 1000 ML IV PRN; -LIDOCAINE 0.5% INJ-PF (5 MG/ML) 50 ML SDV SUBCUT PRN; +NORMAL SALINE 1000 ML 1,000 ML IV PRN
[2017-08-28 14:32] VITALS: BP 126/70
== END 2017-08-28 16:12 | disposition home or self-care (01) ==
LOC: II 14:22 → 5TH 14:23 → II 16:12
PROVIDERS: ATTEND Internal Medicine
PROC: 3E0437Z Introduction of Electrolytic and Water Balance Substance into Central Vein, Percutaneous Approach (ICD-10-PCS; principal; 2017-08-28)
PROC: 3E043GC Introduction of Other Therapeutic Substance into Central Vein, Percutaneous Approach (ICD-10-PCS; 2017-08-28)
DX: D57.1 Sickle-cell disease without crisis (principal); R52 Pain, unspecified; E86.0 Dehydration
CPT/HCPCS: 96374; 96361; J1170; 96360; 96375

== ENCOUNTER 2017-08-29 10:00 | Outpatient (CLI) | payer MEDICAID ==
[2017-08-29 10:19] VITALS: BP 103/55
[2017-08-29] MEDS ORDERED: NORMAL SALINE 1000 ML 1,000 ML IV PRN (10:50)
[2017-08-29] MEDS ORDERED: HYDROMORPHONE HCL INJ/PF 2 MG/ML AMPULE INJ PRN (10:53)
== END 2017-08-29 11:27 | disposition home or self-care (01) ==
LOC: II 10:00 → 5TH 10:07 → II 11:27
PROVIDERS: ATTEND Internal Medicine
PROC: 3E043GC Introduction of Other Therapeutic Substance into Central Vein, Percutaneous Approach (ICD-10-PCS; principal; 2017-08-29)
PROC: 3E0437Z Introduction of Electrolytic and Water Balance Substance into Central Vein, Percutaneous Approach (ICD-10-PCS; 2017-08-29)
DX: R52 Pain, unspecified (principal); E86.0 Dehydration
CPT/HCPCS: 96374; 96361; J1170; 96360; 96375

== ENCOUNTER 2017-08-31 04:12 | Emergency (ER) | payer MEDICAID ==
[2017-08-31] MEDS ORDERED: DIPHENHYDRAMINE HCL 50 MG/ML VIAL IV ONE (04:57)
[2017-08-31] MEDS ORDERED: HYDROMORPHONE HCL INJ/PF 2 MG/ML AMPULE IV ONE ×2 (04:58→06:28)
--- NOTE | 2017-08-31 05:11 | ER Document Report ---
ED General - General Chief Complaint: Sickle Cell Crisis Stated Complaint: LEG PAIN Time Seen by Provider: 08/31/17 04:56 TRAVEL OUTSIDE OF THE [place] IN LAST 30 DAYS: No - HPI Notes: Patient is a 22-year-old female with a history of sickle cell who presents to the ED complaining of right leg pain 2 days. Patient states that she feels like she is having another sickle cell crisis, but it is feels like a typical crisis for her and nothing more severe at this time. Patient states that she has been taking some medicines at home with minimal relief. She is still eating and drinking without difficulties. She is urinating normally and having normal bowel movements. She is still able to ambulate. Patient states that she has been seen recently by her mission assessment specialist Dr. Moreira. Patient states that she has only pain to her leg and nowhere else. No other concerns or complaints at this time. Denies any headache, fever, neck pain, URI, sore throat, chest pain, palpitations, syncope, cough, shortness of breath, wheeze, dyspnea, abdominal pain, nausea/vomiting/diarrhea, urinary retention, dysuria, hematuria, loss of control of bowel or bladder, numbness/tingling, saddle anesthesia, muscle paralysis/weakness, or rash. - Related Data Allergies/Adverse Reactions: morphine Adverse Reaction (Severe, Verified 07/19/17 13:17) RASH,SWELLING jacob peppers Adverse Reaction (Severe, Uncoded 07/19/17 13:17) throat closes Past Medical History - Social History Smoking Status: Never Smoker Family History: Reviewed & Not Pertinent, Hypertension, Other - Sickle cell. denies: Arthritis, CAD, COPD, CVA, DM, Hyperlipidemia, Malignancy, Thyroid Disfunction - Past Medical History Cardiac Medical History: Reports: Hx DVT - RUE s/p port placement Denies: Hx Congestive Heart Failure, Hx Coronary Artery Disease, Hx Heart Attack, Hx Hypertension, Hx Pulmonary Embolism Pulmonary Medical History: Reports: Hx Bronchitis - once in past per patient, Hx Pneumonia - history in past per patient Denies: Hx Asthma, Hx COPD, Hx Tuberculosis Neurological Medical History: Denies: Hx Cerebrovascular Accident, Hx Migraine, Hx Seizures Renal/ Medical History: Denies: Hx End Stage Renal Disease, Hx Kidney Stones, Hx Peritoneal Dialysis GI Medical History: Denies: Hx Cirrhosis, Hx Gastroesophageal Reflux Disease, Hx Ulcer Musculoskeltal Medical History: Denies Hx Arthritis, Denies Hx Multiple Sclerosis, Reports Hx Musculoskeletal Trauma Psychiatric Medical History: Reports: Hx Anxiety, Hx Depression - anxiety Denies: Hx Bipolar Disorder, Hx Schizophrenia Past Surgical History: Reports: Hx Cholecystectomy - 06/28/2015, Hx Vascular Surgery - port put in December,, Other - Port-A-Cath - Immunizations Immunizations up to date: Yes Hx Diphtheria, Pertussis, Tetanus Vaccination: Yes Review of Systems - Review of Systems -: Yes All other systems reviewed and negative Physical Exam - Vital signs Vitals: Temp Pulse Resp BP Pulse Ox 99.2 F 104 H 18 122/63 96 08/31/17 04:25 08/31/17 04:25 08/31/17 04:25 08/31/17 04:08/31/17 04:25 - Notes Notes: PHYSICAL EXAMINATION: GENERAL: Well-appearing, well-nourished and in no acute distress. A&ox4. Answers questions appropriately. Pt appears in no discomfort. HEAD: Atraumatic, normocephalic. EYES: Pupils equal round and reactive to light, extraocular movements intact, sclera anicteric, conjunctiva are normal. ENT: Nares patent and without discharge. oropharynx clear without exudates. No tonsilar hypertrophy or erythema. Moist mucous membranes. NECK: Normal range of motion, supple without lymphadenopathy LUNGS: Breath sounds clear to auscultation bilaterally and equal. No wheezes rales or rhonchi. HEART: Regular rate and rhythm without murmurs, rubs, gallops. ABDOMEN: Soft, nontender, nondistended abdomen. No guarding, no rebound. No masses appreciated. Normal bowel sounds present. No CVA tenderness bilaterally. Musculoskeletal: Rt LE: FROM to passive/active. Strength 5+/5. N/V intact distal. No bony tenderness appreciated. Extremities: No cyanosis, clubbing, or edema b/l. Peripheral pulses 2+. Capillary refill less than 3 seconds. NEUROLOGICAL: Normal speech, normal gait. Normal sensory, motor exams PSYCH: normal mood, flat affect. SKIN: Warm, Dry, normal turgor, no rashes or lesions noted. Course - Re-evaluation Re-evalutation: 08/31/17 06:45 Patient is an afebrile, well-hydrated, 22-year-old female who presents to the ED with a sickle cell crisis without aplastic lab findings to her right leg. Vitals are acceptable. PE is otherwise unremarkable for any neurovascular compromise, obvious tendon/ligament rupture, obvious fracture/dislocation, septic joint. CBC, reticulocyte count, total bili, CMP were acceptable and were very close to her baseline. No imaging warranted at this time based on H& P. No indication for chest x-ray. Patient is tolerating p.o. without difficulties. Patient did receive Dilaudid, Benadryl. Patient's symptoms did improve. Patient also received fluids. Low suspicion for any sepsis, meningitis, severe dehydration, respiratory compromise, mastoiditis, or other systemic emergent condition at this time. Pt is aware that condition can change from initial presentation and she needs to monitor symptoms closely and seek medical attention with any acute changes. Conservative measures otherwise for symptoms. Recheck with your PCM/mission assessment specialist in 3-5 days. Return to the ED with any worsening/concerning symptoms otherwise as reviewed discharge. Patient is in agreement. - Vital Signs Vital signs: Temp Pulse Resp BP Pulse Ox 99.2 F 104 H 23 H 97/56 L 96 08/31/17 04:25 08/31/17 04:25 08/31/17 05:02 08/31/17 06:01 08/31/17 06:01 - Laboratory Result Diagrams: 08/31/17 05:21 08/31/17 05:21 Laboratory results interpreted by me: 08/31/17 08/31/17 05:21 05:21 WBC 12.8 H RBC 2.84 L Hgb 10.9 L Hct 30.0 L MCV 106 H MCH 38.3 H MCHC 36.2 H RDW 16.5 H Absolute Neutrophils 9.7 H Retic Count (auto) 7.64 H Absolute Retic 0.217 H Sodium 145.2 H Potassium 3.4 L Chloride 111 H BUN 5 L Total Bilirubin 4.6 H Discharge - Discharge Clinical Impression: Sickle cell pain crisis Condition: Stable Disposition: HOME, SELF-CARE Instructions: Sickle Cell Crisis ([facility]) Additional Instructions: Rest, Ice, Compression, Elevation Tylenol/ibuprofen as needed Light stretches daily Strength exercises as able Moist heat and massage may help F/u with your PCP/Apron Worker in 3-5 days for a recheck Return to the ED with any worsening symptoms and/or development of fever, headache, chest pain, palpitations, syncope, shortness of breath, trouble breathing, abdominal pain, n/v/d, muscle weakness/paralysis, numbness/tingling, swelling, redness, or other worsening symptoms that are concerning to you. Referrals: JOIE MOREIRA MD [Primary Care Provider] - Follow up in 3-5 days
[2017-08-31] MEDS: NORMAL SALINE 1000 ML 1,000 ML IV PRN ×2 (05:22→06:05)
[2017-08-31 05:44] LABS: ALANINE AMINOTRANSFERASE 27 U/L (9-52); ALBUMIN 4.2 g/dL (3.5-5.0); ALKALINE PHOSPHATASE 56 U/L (38-126); ANION GAP 9 (5-19); ASPARTATE AMINO TRANSFERASE 22 U/L (14-36); BILIRUBIN,DIRECT 0.3 mg/dL (0.0-0.4); BILIRUBIN,TOTAL 4.6 mg/dL (0.2-1.3); BLOOD UREA NITROGEN 5 mg/dL (7-20); CALCIUM 9.5 mg/dL (8.4-10.2); CARBON DIOXIDE 25 mmol/L (22-30); CHLORIDE 111 mmol/L (98-107); GLUCOSE 97 mg/dL (75-110); POTASSIUM 3.4 mmol/L (3.6-5.0); SODIUM 145.2 mmol/L (137-145); TOTAL PROTEIN 7.4 g/dL (6.3-8.2)
[2017-08-31 06:11] VITALS: BP 97/56
[2017-08-31 06:17] LABS: ABSOLUTE BASOPHILS # (AUTO) 0.1 10^3/uL (0.0-0.2); ABSOLUTE EOSINOPHILS # (AUTO) 0.2 10^3/uL (0.0-0.6); ABSOLUTE LYMPHOCYTES (AUTO) 1.7 10^3/uL (0.5-4.7); ABSOLUTE MONOCYTES (AUTO) 1.1 10^3/uL (0.1-1.4); ABSOLUTE NEUT (AUTO) 9.7 10^3/uL (1.7-8.2); ABSOLUTE RETICS # 0.217 10^6/uL (0.028-0.122); BASOPHILS % (AUTO) 0.8 % (0-2); EOSINOPHILS % (AUTO) 1.4 % (0-6); HEMOGLOBIN 10.9 g/dL (12.0-15.5); LYMPHOCYTES % (AUTO) 13.6 % (13-45); MEAN CORPUSCULAR HEMOGLOBIN 38.3 pg (27.0-33.4); MEAN CORPUSCULAR HGB CONC 36.2 g/dL (32.0-36.0); MEAN CORPUSCULAR VOLUME 106 fl (80-97); MONOCYTES % (AUTO) 8.4 % (3-13); PLATELET COUNT 383 10^3/uL (150-450); RED BLOOD COUNT 2.84 10^6/uL (3.72-5.28); RED CELL DISTRIBUTION WIDTH 16.5 % (11.5-14.0); RETICULOCYTE COUNT (AUTO) 7.64 % (0.66-2.85); SEGMENTED NEUTROPHILS % (AUTO) 75.8 % (42-78); TOTAL CELLS COUNTED % (AUTO) 100 %; WHITE BLOOD COUNT 12.8 10^3/uL (4.0-10.5)
== END 2017-08-31 07:10 | disposition home or self-care (01) ==
LOC: ER 04:12
DX: D57.00 Hb-SS disease with crisis, unspecified (principal); Z88.6 Allergy status to analgesic agent; Z86.718 Personal history of other venous thrombosis and embolism; Z90.49 Acquired absence of other specified parts of digestive tract
CPT/HCPCS: 36591; 96376; 99284; 96361; 96374; 96375; 36415; 84703; 85025; 85045; 80053; J1200; J1170; J7030

== ENCOUNTER 2017-09-01 10:29 | Outpatient (CLI) | payer MEDICAID ==
[2017-09-01 11:43] VITALS: BP 113/43
[2017-09-01] MEDS ORDERED: NORMAL SALINE 1000 ML 1,000 ML IV ONE (11:45)
[2017-09-01] MEDS ORDERED: HYDROMORPHONE HCL INJ/PF 2 MG/ML AMPULE IV ONE (12:00)
== END 2017-09-01 14:03 | disposition home or self-care (01) ==
LOC: PC 10:29 → 2N 10:36 → II 14:03
PROVIDERS: ATTEND Internal Medicine
PROC: 3E033GC Introduction of Other Therapeutic Substance into Peripheral Vein, Percutaneous Approach (ICD-10-PCS; principal; 2017-09-01)
PROC: 3E0337Z Introduction of Electrolytic and Water Balance Substance into Peripheral Vein, Percutaneous Approach (ICD-10-PCS; 2017-09-01)
DX: D57.1 Sickle-cell disease without crisis (principal); R52 Pain, unspecified; E86.0 Dehydration
CPT/HCPCS: 96374; 96361; J1170; J7030

== ENCOUNTER 2017-09-02 08:07 | Outpatient (CLI) | payer MEDICAID ==
[2017-09-02 08:37] VITALS: BP 103/45
== END 2017-09-02 10:27 | disposition home or self-care (01) ==
LOC: II 08:07 → 5TH 08:08 → II 10:27
PROVIDERS: ATTEND Internal Medicine
PROC: 3E0437Z Introduction of Electrolytic and Water Balance Substance into Central Vein, Percutaneous Approach (ICD-10-PCS; principal; 2017-09-02)
PROC: 3E043GC Introduction of Other Therapeutic Substance into Central Vein, Percutaneous Approach (ICD-10-PCS; 2017-09-02)
DX: D57.1 Sickle-cell disease without crisis (principal); R52 Pain, unspecified; E86.0 Dehydration
CPT/HCPCS: 96374; 96375; 96360; J1170; 96361

== ENCOUNTER 2017-09-03 07:34 | Outpatient (CLI) | payer MEDICAID ==
[2017-09-03] MEDS ORDERED: NORMAL SALINE 1000 ML 1,000 ML IV PRN (08:00)
[2017-09-03] MEDS ORDERED: HYDROMORPHONE HCL INJ/PF 2 MG/ML AMPULE INJ PRN (08:00)
[2017-09-03 08:10] VITALS: BP 108/52
== END 2017-09-03 09:08 | disposition home or self-care (01) ==
LOC: II 07:34 → 5TH 07:56 → II 09:08
PROVIDERS: ATTEND Internal Medicine
PROC: 3E0437Z Introduction of Electrolytic and Water Balance Substance into Central Vein, Percutaneous Approach (ICD-10-PCS; principal; 2017-09-03)
PROC: 3E043GC Introduction of Other Therapeutic Substance into Central Vein, Percutaneous Approach (ICD-10-PCS; 2017-09-03)
DX: D57.1 Sickle-cell disease without crisis (principal); R52 Pain, unspecified; E86.0 Dehydration
CPT/HCPCS: 96375; 96360; J1170; 96361; 96374

== ENCOUNTER 2017-09-04 09:40 | Outpatient (CLI) | payer MEDICAID ==
[2017-09-04 10:32] VITALS: BP 114/43
== END 2017-09-04 11:03 | disposition home or self-care (01) ==
LOC: II 09:40 → 5TH 09:43 → II 11:03
PROVIDERS: ATTEND Internal Medicine
PROC: 3E0437Z Introduction of Electrolytic and Water Balance Substance into Central Vein, Percutaneous Approach (ICD-10-PCS; principal; 2017-09-04)
PROC: 3E013GC Introduction of Other Therapeutic Substance into Subcutaneous Tissue, Percutaneous Approach (ICD-10-PCS; 2017-09-04)
DX: D57.1 Sickle-cell disease without crisis (principal); R52 Pain, unspecified; E86.0 Dehydration
CPT/HCPCS: 96372; 96360; J1170

== ENCOUNTER 2017-09-05 07:27 | Outpatient (CLI) | payer MEDICAID ==
[2017-09-05] MEDS ORDERED: NORMAL SALINE 1000 ML 1,000 ML IV PRN (08:00)
[2017-09-05] MEDS ORDERED: HYDROMORPHONE HCL INJ/PF 2 MG/ML AMPULE INJ PRN (08:00)
[2017-09-05 08:22] VITALS: BP 98/52
== END 2017-09-05 09:31 | disposition home or self-care (01) ==
LOC: II 07:27 → 5TH 07:30 → II 09:31
PROVIDERS: ATTEND Internal Medicine
PROC: 3E0437Z Introduction of Electrolytic and Water Balance Substance into Central Vein, Percutaneous Approach (ICD-10-PCS; principal; 2017-09-05)
PROC: 3E043GC Introduction of Other Therapeutic Substance into Central Vein, Percutaneous Approach (ICD-10-PCS; 2017-09-05)
DX: D57.1 Sickle-cell disease without crisis (principal); R52 Pain, unspecified; E86.0 Dehydration
CPT/HCPCS: 96375; 96360; J1170; 96361; 96374

== ENCOUNTER 2017-09-06 02:13 | Emergency (ER) | payer MEDICAID ==
[2017-09-06] MEDS ORDERED: DIPHENHYDRAMINE HCL 50 MG/ML VIAL IV ONE (03:33)
[2017-09-06] MEDS ORDERED: ONDANSETRON 4 MG TAB.RAPDIS PO ONE ×2 (03:33→05:18)
[2017-09-06] MEDS ORDERED: HYDROMORPHONE HCL INJ/PF 2 MG/ML AMPULE IV ONE ×2 (03:33→05:18)
[2017-09-06] MEDS ORDERED: NORMAL SALINE 1000 ML 1,000 ML IV ONE ×2 (03:33)
--- NOTE | 2017-09-06 03:36 | ER Document Report ---
ED General - General Chief Complaint: Sickle Cell Crisis Stated Complaint: BACK AND LEG PAIN Time Seen by Provider: 09/06/17 03:27 Notes: Patient is a 22-year-old female that comes emergency department for chief complaint of sickle cell pain crisis. She states that her lower back and her legs worse on the right are hurting a lot, pain started yesterday, she could not sleep tonight because of the pain. She denies fever or chills, nausea or vomiting, abdominal pain, headache. She states that earlier her chest felt a little bit tight but this resolved. She denies any current shortness of breath or chest pain. She sees a local oncology/hematology Dr. Moreira. TRAVEL OUTSIDE OF THE [place] IN LAST 30 DAYS: No - Related Data Allergies/Adverse Reactions: morphine Allergy (Severe, Verified 09/01/17 09:29) RASH,SWELLING jacob peppers Adverse Reaction (Severe, Uncoded 07/19/17 13:17) throat closes Past Medical History - General Information source: Patient - Social History Smoking Status: Never Smoker Frequency of alcohol use: None Drug Abuse: None Lives with: Family Family History: Reviewed & Not Pertinent, Hypertension, Other - Sickle cell. denies: Arthritis, CAD, COPD, CVA, DM, Hyperlipidemia, Malignancy, Thyroid Disfunction - Past Medical History Cardiac Medical History: Reports: Hx DVT - RUE s/p port placement Denies: Hx Congestive Heart Failure, Hx Coronary Artery Disease, Hx Heart Attack, Hx Hypertension, Hx Pulmonary Embolism Pulmonary Medical History: Reports: Hx Bronchitis - once in past per patient, Hx Pneumonia - history in past per patient Denies: Hx Asthma, Hx COPD, Hx Tuberculosis Neurological Medical History: Denies: Hx Cerebrovascular Accident, Hx Migraine, Hx Seizures Renal/ Medical History: Denies: Hx End Stage Renal Disease, Hx Kidney Stones, Hx Peritoneal Dialysis GI Medical History: Denies: Hx Cirrhosis, Hx Gastroesophageal Reflux Disease, Hx Ulcer Musculoskeltal Medical History: Denies Hx Arthritis, Denies Hx Multiple Sclerosis, Reports Hx Musculoskeletal Trauma Psychiatric Medical History: Reports: Hx Anxiety, Hx Depression - anxiety Denies: Hx Bipolar Disorder, Hx Schizophrenia Past Surgical History: Reports: Hx Cholecystectomy - 06/28/2015, Hx Vascular Surgery - port put in December,, Other - Port-A-Cath - Immunizations Immunizations up to date: Yes Hx Diphtheria, Pertussis, Tetanus Vaccination: Yes Review of Systems - Review of Systems Constitutional: No symptoms reported EENT: No symptoms reported Cardiovascular: No symptoms reported Respiratory: See HPI Gastrointestinal: No symptoms reported Genitourinary: No symptoms reported Female Genitourinary: No symptoms reported Musculoskeletal: See HPI Skin: No symptoms reported Hematologic/Lymphatic: No symptoms reported Neurological/Psychological: No symptoms reported Physical Exam - Vital signs Vitals: Temp Pulse Resp BP Pulse Ox 99.4 F 103 H 20 119/54 L 97 09/06/17 02:18 09/06/17 02:18 09/06/17 02:18 09/06/17 02:18 09/06/17 02:18 - Notes Notes: GENERAL: Alert, interacts well, appears uncomfortable, shifting on the bed HEAD: Normocephalic, atraumatic. EYES: Pupils equal, round, and reactive to light. Extraocular movements intact. ENT: Oral mucosa moist, tongue midline. NECK: Full range of motion. Supple. Trachea midline. LUNGS: Clear to auscultation bilaterally, no wheezes, rales, or rhonchi. No respiratory distress. HEART: Borderline tachycardia, normal rhythm, no murmur ABDOMEN: Soft, non-tender. Non-distended. Bowel sounds present in all 4 quadrants. EXTREMITIES: Moves all 4 extremities spontaneously. No edema, normal radial and dorsalis pedis pulses bilaterally. No cyanosis. BACK: no cervical, thoracic, lumbar midline tenderness. No saddle anesthesia, normal distal neurovascular exam. NEUROLOGICAL: Alert and oriented x3. Normal speech. [cranial nerves II through XII grossly intact]. PSYCH: Normal affect, normal mood. SKIN: Warm, dry, normal turgor. No rashes or lesions noted. Course - Re-evaluation Re-evalutation: Patient does look uncomfortable on initial evaluation, mildly tachycardic. No distress, no tachypnea, no hypoxia, no fever. Soft abdomen, clear lungs. Chemistry generally unremarkable with mildly elevated indirect bilirubin suggesting hemolysis. HCG negative. Chest x-ray unremarkable. CBC shows mild leukocytosis without shift, hemoglobin of 8.5, reticulocytes not significantly elevated. Reevaluated patient, tachycardia resolved, she is now very comfortable appearing. She states actually feels really good, wants another dose, and then once to leave. Discussed possible admission but she states she feels good and she wants to go home. She has good follow-up. Discussed return precautions. Patient states understanding and agreement with plan. - Vital Signs Vital signs: Temp Pulse Resp BP Pulse Ox 99.4 F 103 H 15 104/53 L 100 09/06/17 02:18 09/06/17 02:18 09/06/17 06:00 09/06/17 06:33 09/06/17 06:00 - Laboratory Result Diagrams: 09/06/17 04:16 09/06/17 04:16 Laboratory results interpreted by me: 09/06/17 09/06/17 04:16 04:16 WBC 12.4 H RBC 2.25 L Hgb 8.5 L Hct 23.4 L MCV 104 H MCH 37.9 H MCHC 36.4 H RDW 14.7 H Plt Count 470 H Abs Neuts (Manual) 8.3 H Abs Monocytes (Manual) 1.5 H Retic Count (auto) 4.55 H Sodium 145.8 H Chloride 113 H BUN 6 L Creatinine 0.49 L Total Bilirubin 4.0 H AST 45 H Discharge - Discharge Clinical Impression: Sickle cell pain crisis Condition: Stable Disposition: HOME, SELF-CARE Additional Instructions: Follow-up with your provider within the next 2-3 days for additional evaluation and management. Return if you worsen including fever, vomiting, difficulty breathing, severe pain, or any other concerning or worsening symptoms. Referrals: JOIE MOREIRA MD [ACTIVE STAFF] - Follow up tomorrow
--- NOTE | 2017-09-06 04:41 | RADIOLOGY REPORT (SQ) ---
EXAM DESCRIPTION: XR CHEST 1 VIEW CLINICAL HISTORY: 22 years Female, chest tightness, cycle cell COMPARISON: 3.14.18 NUMBER OF VIEWS/TECHNIQUE: 1/AP FINDINGS: Adequate lung volume, clear parenchyma, normal cardiac silhouette, right jugular miniport central line tip at the SVC, and intact bony thorax. IMPRESSION: No acute cardiopulmonary findings.
[2017-09-06 04:56] LABS: ALANINE AMINOTRANSFERASE 18 U/L (9-52); ALBUMIN 4.2 g/dL (3.5-5.0); ALKALINE PHOSPHATASE 70 U/L (38-126); ANION GAP 9 (5-19); ASPARTATE AMINO TRANSFERASE 45 U/L (14-36); BILIRUBIN,DIRECT 0.2 mg/dL (0.0-0.4); BLOOD UREA NITROGEN 6 mg/dL (7-20); CALCIUM 9.3 mg/dL (8.4-10.2); CARBON DIOXIDE 24 mmol/L (22-30); CHLORIDE 113 mmol/L (98-107); GLUCOSE 104 mg/dL (75-110); POTASSIUM 3.7 mmol/L (3.6-5.0); SODIUM 145.8 mmol/L (137-145); TOTAL PROTEIN 7.3 g/dL (6.3-8.2)
[2017-09-06 04:59] LABS: ABSOLUTE RETICS # 0.102 10^6/uL (0.028-0.122); HEMATOCRIT 23.4 % (36.0-47.0); HEMOGLOBIN 8.5 g/dL (12.0-15.5); MEAN CORPUSCULAR HEMOGLOBIN 37.9 pg (27.0-33.4); MEAN CORPUSCULAR HGB CONC 36.4 g/dL (32.0-36.0); MEAN CORPUSCULAR VOLUME 104 fl (80-97); PLATELET COUNT 470 10^3/uL (150-450); RED BLOOD COUNT 2.25 10^6/uL (3.72-5.28); RED CELL DISTRIBUTION WIDTH 14.7 % (11.5-14.0); RETICULOCYTE COUNT (AUTO) 4.55 % (0.66-2.85); WHITE BLOOD COUNT 12.4 10^3/uL (4.0-10.5)
[2017-09-06 06:04] LABS: ABSOLUTE LYMPHOCYTES# (MANUAL) 1.7 10^3/uL (0.5-4.7); ABSOLUTE MONOCYTES # (MANUAL) 1.5 10^3/uL (0.1-1.4); ABSOLUTE NEUTROPHILS# (MANUAL) 8.3 10^3/uL (1.7-8.2); BASOPHILS % (MANUAL) 2 % (0-2); EOSINOPHILS % (MANUAL) 5 % (0-6); LYMPHOCYTES % (MANUAL) 14 % (13-45); MONOCYTES % (MANUAL) 12 % (3-13); NUCLEATED RED BLOOD CELLS 2 /100 WBC (0); SEGMENTED NEUTROPHILS % (MAN) 67 % (42-78); TOTAL CELLS COUNTED 100
[2017-09-06 06:09] LABS: ANISOCYTOSIS SLIGHT; HYPOCHROMASIA 2+; POIKILOCYTOSIS SLIGHT; POLYCHROMASIA SLIGHT
[2017-09-06] MEDS ORDERED: DIPHENHYDRAMINE HCL 25 MG CAPSULE PO ONE (06:16)
[2017-09-06 06:21] LABS: PLATELET COMMENT ADEQUATE
[2017-09-06 06:34] VITALS: BP 104/53
== END 2017-09-06 06:34 | disposition home or self-care (01) ==
LOC: ER 02:13
DX: D57.00 Hb-SS disease with crisis, unspecified (principal); M54.5 Low back pain; M79.604 Pain in right leg; R00.0 Tachycardia, unspecified; D72.829 Elevated white blood cell count, unspecified; Z88.5 Allergy status to narcotic agent; Z86.718 Personal history of other venous thrombosis and embolism
CPT/HCPCS: 36591; 96376; 99284; 96361; 96374; 96375; 36415; 84703; 85025; 85045; 80053; 71045; J3490; J1200; S0119; J1170; J7030

== ENCOUNTER 2017-09-09 17:01 | Emergency (ER) | payer MEDICAID ==
[2017-09-09] MEDS ORDERED: NORMAL SALINE 1000 ML 1,000 ML IV ONE ×2 (17:45→20:01)
[2017-09-09] MEDS ORDERED: KETOROLAC TROMETHAMINE INJ/PF 30 MG/1 ML SDV IV ONE (17:46)
[2017-09-09] MEDS ORDERED: OXYCODONE-ACETAMINOPHEN 5-325 MG TABLET PO ONE (17:46)
--- NOTE | 2017-09-09 17:49 | ER Document Report ---
ED Medical Screen (RME) - General Chief Complaint: Sickle Cell Crisis Stated Complaint: LOWER BACK PAIN Time Seen by Provider: 09/09/17 17:40 TRAVEL OUTSIDE OF THE [place] IN LAST 30 DAYS: No - HPI Notes: 09/09/17 17:48 Patient with history of sickle cell disease currently on oxycodone 5 mg tablets states also has been getting infusions of Dilaudid now by her control increased back pain starting last night last time she had her oxycodone was 8 hours ago. No injuries no dysuria - Related Data Allergies/Adverse Reactions: morphine Allergy (Severe, Verified 09/01/17 09:29) RASH,SWELLING jacob peppers Adverse Reaction (Severe, Uncoded 07/19/17 13:17) throat closes Past Medical History - Social History Chew tobacco use (# tins/day): No Drug Abuse: None Family history: Reviewed & Not Pertinent, Other - Pt was adopted. Does not know family history - Past Medical History Cardiac Medical History: Reports: Hx DVT - RUE s/p port placement Denies: Hx Congestive Heart Failure, Hx Coronary Artery Disease, Hx Heart Attack, Hx Hypertension, Hx Pulmonary Embolism Pulmonary Medical History: Reports: Hx Bronchitis - once in past per patient, Hx Pneumonia - history in past per patient Denies: Hx Asthma, Hx COPD, Hx Tuberculosis Neurological Medical History: Denies: Hx Cerebrovascular Accident, Hx Migraine, Hx Seizures Renal/ Medical History: Denies: Hx End Stage Renal Disease, Hx Kidney Stones, Hx Peritoneal Dialysis GI Medical History: Denies: Hx Cirrhosis, Hx Gastroesophageal Reflux Disease, Hx Ulcer Musculoskeltal Medical History: Denies Hx Arthritis, Denies Hx Multiple Sclerosis, Reports Hx Musculoskeletal Trauma Psychiatric Medical History: Reports: Hx Anxiety, Hx Depression - anxiety Denies: Hx Bipolar Disorder, Hx Schizophrenia Past Surgical History: Reports: Hx Cholecystectomy - 06/28/2015, Hx Vascular Surgery - port put in December,, Other - Port-A-Cath - Immunizations Immunizations up to date: Yes Hx Diphtheria, Pertussis, Tetanus Vaccination: Yes History of Influenza Vaccine for 12/2016 - 05/2017 Season: Yes Influenza Administration Date for 12/2016 - 05/2017 Season: 03/11/18 Review of Systems - Review of Systems Constitutional: Other - Sickle cell pain Physical Exam - Vital signs Vitals: Temp Pulse Resp BP Pulse Ox 98.7 F 79 18 106/56 L 95 09/09/17 17:23 09/09/17 17:23 09/09/17 17:23 09/09/17 17:23 09/09/17 17:23 - General General appearance: Appears well In distress: None Course - Re-evaluation Re-evalutation: 09/09/17 17:49 Patient is rocking back and forth looks mildly uncomfortable will give her her home dose of her oxycodone and along with IV ketorolac here in the triage area will place the patient in the back for further evaluation. - Vital Signs Vital signs: Temp Pulse Resp BP Pulse Ox 98.7 F 79 18 106/56 L 95 09/09/17 17:23 09/09/17 17:23 09/09/17 17:23 09/09/17 17:23 09/09/17 17:23 Doctor's Discharge - Discharge Referrals: JOIE MOREIRA MD [Primary Care Provider] - Follow up as needed
--- NOTE | 2017-09-09 19:04 | ER Document Report ---
ED General - General Mode of Arrival: Ambulatory Information source: Patient TRAVEL OUTSIDE OF THE [place] IN LAST 30 DAYS: No <DARIN OLVERA - Last Filed: 09/09/17 21:37> <RADHA WOLFF - Last Filed: 09/09/17 22:04> - General Chief Complaint: Sickle Cell Crisis Stated Complaint: LOWER BACK PAIN Time Seen by Provider: 09/09/17 17:40 Notes: 22 y.o. female presents to the ED with lower back pain that is consistent with the pain she has with sickle cell crisis. Pt was seen here on 09/06/17 for similar sx. She reports that her pain stretches across her lower back and describes the pain as sharp, "like stepping on glass". She denies any problems with urination including dysuria. She states that she was taking Ibuprofen and Hydrocodone at home for her pain but was without relief. Pt reports that she has been drinking enough fluids daily. (DARIN OLVERA) - Related Data Allergies/Adverse Reactions: morphine Allergy (Severe, Verified 09/01/17 09:29) RASH,SWELLING jacob peppers Adverse Reaction (Severe, Uncoded 07/19/17 13:17) throat closes Past Medical History - General Information source: Patient - Social History Smoking Status: Never Smoker Chew tobacco use (# tins/day): No Drug Abuse: None Family History: Reviewed & Not Pertinent, Hypertension, Other - Sickle cell Patient has suicidal ideation: No Patient has homicidal ideation: No - Past Medical History Cardiac Medical History: Reports: Hx DVT - RUE s/p port placement Pulmonary Medical History: Reports: Hx Bronchitis - once in past per patient, Hx Pneumonia - history in past per patient Musculoskeltal Medical History: Reports Hx Musculoskeletal Trauma Psychiatric Medical History: Reports: Hx Anxiety, Hx Depression - anxiety Past Surgical History: Reports: Hx Cholecystectomy - 06/28/2015, Hx Vascular Surgery - port put in December,, Other - Port-A-Cath - Immunizations Immunizations up to date: Yes Hx Diphtheria, Pertussis, Tetanus Vaccination: Yes <DARIN OLVERA - Last Filed: 09/09/17 21:37> Review of Systems - Review of Systems Constitutional: No symptoms reported EENT: No symptoms reported Cardiovascular: No symptoms reported Respiratory: No symptoms reported Gastrointestinal: No symptoms reported Genitourinary: See HPI. denies: Dysuria Female Genitourinary: No symptoms reported Musculoskeletal: No symptoms reported Skin: No symptoms reported Hematologic/Lymphatic: See HPI, Other - Sickle cell pain Neurological/Psychological: No symptoms reported -: Yes All other systems reviewed and negative <DARIN OLVERA - Last Filed: 09/09/17 21:37> Physical Exam <DARIN OLVERA - Last Filed: 09/09/17 21:37> <RADHA WOLFF - Last Filed: 09/09/17 22:04> - Vital signs Vitals: Temp Pulse Resp BP Pulse Ox 98.7 F 79 18 106/56 L 95 09/09/17 17:23 09/09/17 17:23 09/09/17 17:23 09/09/17 17:23 09/09/17 17:23 - Notes Notes: Physical Exam: General: Alert, no acute distress. Appears uncomfortable. HEENT: Normocephalic. Atraumatic. PERRL. Extraocular movements intact. Oropharynx clear. Neck: Supple. Non-tender. Respiratory: No respiratory distress. Clear and equal breath sounds bilaterally. Cardiovascular: Regular rate and rhythm. Port to right chest wall. Abdominal: Normal Inspection. Non-tender. No distension. Normal Bowel Sounds. Back: Bilateral lower back tenderness to palpation. No deformity or step off. Extremities: Moves all four extremities. Full range of motion. Strength to extremities are 5/5. Neurological: Normal cognition. AAOx3. Normal speech. Psychological: Normal affect. Normal Mood. Skin: Warm. Dry. Normal color. (DARIN OLVERA) Course - Laboratory Result Diagrams: 09/09/17 18:59 09/09/17 18:59 <DARIN OLVERA - Last Filed: 09/09/17 21:37> - Laboratory Result Diagrams: 09/09/17 18:59 09/09/17 18:59 - Consults Dr. Baum Time consulted: 18:00 Consulted provider: follow-up in office <RADHA WOLFF - Last Filed: 09/09/17 22:04> - Re-evaluation Re-evalutation: 09/09/17 20:20 Reckeched patient and she is resting and asleep in room. (DARIN OLVERA) 09/09/17 2129 Patient is a 22-year-old female with a history of sickle cell disease who comes in complaining of back pain consistent with her sickle cell pain in the past. Patient has been seen multiple times this month. She sees Dr. Baum. Recommends fluids, pain control, and no pain medication prescription to go home with as those are managed by his office. 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 Thinks that she is staying hydrated. She did not want a second liter of fluids or any more pain medication in the emergency department. She feels better would like to go home. Blood work within normal limits. No evidence on urine for UTI or stone. Return if any worsening or concerning symptoms. Patient understands and agrees with plan. Stable for discharge. (RADHA WOLFF) - Vital Signs Vital signs: Temp Pulse Resp BP Pulse Ox 98.4 F 81 18 100/56 L 98 09/09/17 21:43 09/09/17 21:43 09/09/17 21:43 09/09/17 21:43 09/09/17 21:43 - Laboratory Laboratory results interpreted by me: 09/09/17 09/09/17 09/09/17 18:59 18:59 18:59 WBC 12.8 H RBC 2.56 L Hgb 9.5 L Hct 26.2 L MCV 103 H MCH 37.2 H MCHC 36.3 H RDW 14.6 H Abs Basophils (Manual) 0.3 H Retic Count (auto) 5.36 H Absolute Retic 0.137 H Sodium 145.3 H Chloride 109 H BUN 5 L Creatinine 0.49 L Total Bilirubin 5.2 H Urine Urobilinogen 2.0 H - Consults Dr. Baum Reason for consultation: 09/09/17 22:02 sickle cell crisis, multple recent presentations. (RADHA WOLFF) Discharge <DARIN OLVERA - Last Filed: 09/09/17 21:37> <RADHA WOLFF - Last Filed: 09/09/17 22:04> - Discharge Clinical Impression: Sickle cell pain crisis Condition: Stable Disposition: HOME, SELF-CARE Instructions: Sickle Cell Crisis ([facility]) Referrals: JOIE BAUM MD [Primary Care Provider] - Follow up in 3-5 days Scribe Attestation: 09/09/17 22:04 I personally performed the services described in the documentation, reviewed and edited the documentation which was dictated to the scribe in my presence, and it accurately records my words and actions. (RADHA WOLFF) Scribe Documentation - Scribe Written by Marisel:: Marisel Kwok 09/09/17 1906 acting as scribe for :: Terry <DARIN OLVERA - Last Filed: 09/09/17 21:37>
[2017-09-09 19:12] LABS: APPEARANCE,URINE CLEAR; BILIRUBIN,URINE NEGATIVE (NEGATIVE); COLOR,URINE YELLOW; GLUCOSE, URINE NEGATIVE (NEGATIVE); KETONES,URINE NEGATIVE (NEGATIVE); LEUKOCYTE ESTERASE,URINE NEGATIVE (NEGATIVE); NITRITE,URINE NEGATIVE (NEGATIVE); PROTEIN,URINE NEGATIVE (NEGATIVE); URINE SPECIFIC GRAVITY 1.012
[2017-09-09 19:13] LABS: ABSOLUTE RETICS # 0.137 10^6/uL (0.028-0.122); HEMATOCRIT 26.2 % (36.0-47.0); HEMOGLOBIN 9.5 g/dL (12.0-15.5); MEAN CORPUSCULAR HEMOGLOBIN 37.2 pg (27.0-33.4); MEAN CORPUSCULAR HGB CONC 36.3 g/dL (32.0-36.0); MEAN CORPUSCULAR VOLUME 103 fl (80-97); PLATELET COUNT 427 10^3/uL (150-450); RED BLOOD COUNT 2.56 10^6/uL (3.72-5.28); RED CELL DISTRIBUTION WIDTH 14.6 % (11.5-14.0); RETICULOCYTE COUNT (AUTO) 5.36 % (0.66-2.85); WHITE BLOOD COUNT 12.8 10^3/uL (4.0-10.5)
[2017-09-09 19:40] LABS: ABSOLUTE LYMPHOCYTES# (MANUAL) 4.1 10^3/uL (0.5-4.7); ABSOLUTE MONOCYTES # (MANUAL) 0.6 10^3/uL (0.1-1.4); ABSOLUTE NEUTROPHILS# (MANUAL) 7.6 10^3/uL (1.7-8.2); BASOPHILS % (MANUAL) 2 % (0-2); EOSINOPHILS % (MANUAL) 2 % (0-6); LYMPHOCYTES % (MANUAL) 31 % (13-45); MONOCYTES % (MANUAL) 5 % (3-13); NUCLEATED RED BLOOD CELLS 2 /100 WBC (0); SEGMENTED NEUTROPHILS % (MAN) 59 % (42-78); TOTAL CELLS COUNTED 100
[2017-09-09 19:42] LABS: HYPERSEGMENTED NEUTROPHILS PRESENT; HYPOCHROMASIA 1+; POIKILOCYTOSIS 2+; SCHISTOCYTES SLIGHT; SICKLE RED CELLS 1+; TARGET CELLS 1+
[2017-09-09 19:43] LABS: PLATELET COMMENT ADEQUATE; POLYCHROMASIA 2+
[2017-09-09 19:44] LABS: ALANINE AMINOTRANSFERASE 26 U/L (9-52); ALBUMIN 4.1 g/dL (3.5-5.0); ALKALINE PHOSPHATASE 66 U/L (38-126); ANION GAP 10 (5-19); ASPARTATE AMINO TRANSFERASE 23 U/L (14-36); BILIRUBIN,DIRECT 0.3 mg/dL (0.0-0.4); BILIRUBIN,TOTAL 5.2 mg/dL (0.2-1.3); BLOOD UREA NITROGEN 5 mg/dL (7-20); CALCIUM 9.6 mg/dL (8.4-10.2); CARBON DIOXIDE 26 mmol/L (22-30); CHLORIDE 109 mmol/L (98-107); GLUCOSE 83 mg/dL (75-110); POTASSIUM 3.7 mmol/L (3.6-5.0); SODIUM 145.3 mmol/L (137-145); TOTAL PROTEIN 7.1 g/dL (6.3-8.2)
[2017-09-09 21:45] VITALS: BP 100/56
== END 2017-09-09 21:45 | disposition home or self-care (01) ==
LOC: ER 17:01
DX: D57.00 Hb-SS disease with crisis, unspecified (principal); M54.5 Low back pain; Z88.6 Allergy status to analgesic agent; Z86.718 Personal history of other venous thrombosis and embolism
CPT/HCPCS: 36592; 99284; 96361; 96374; 36415; 84703; 85025; 85045; 80053; 81001; J1885; J7030

== ENCOUNTER 2017-09-11 13:21 | Outpatient (CLI) | payer MEDICAID ==
[2017-09-11] MEDS ORDERED: NORMAL SALINE 1000 ML 1,000 ML IV PRN (13:47)
[2017-09-11] MEDS ORDERED: HYDROMORPHONE HCL INJ/PF 2 MG/ML AMPULE IV PRN (13:48)
[2017-09-11 14:21] VITALS: BP 101/56
== END 2017-09-11 15:15 | disposition home or self-care (01) ==
LOC: II 13:21 → 5TH 13:28 → II 15:15
PROVIDERS: ATTEND Internal Medicine
PROC: 3E0437Z Introduction of Electrolytic and Water Balance Substance into Central Vein, Percutaneous Approach (ICD-10-PCS; principal; 2017-09-11)
PROC: 3E043GC Introduction of Other Therapeutic Substance into Central Vein, Percutaneous Approach (ICD-10-PCS; 2017-09-11)
DX: D57.1 Sickle-cell disease without crisis (principal); R52 Pain, unspecified; E86.0 Dehydration
CPT/HCPCS: 96375; 96360; J1170; 96361; 96374

== ENCOUNTER 2017-09-14 22:37 | Emergency (ER) | payer MEDICAID ==
[2017-09-14] MEDS ORDERED: FENTANYL CITRATE INJ/PF 100 MCG/2 ML AMPUL IV ONE (23:29)
[2017-09-14] MEDS ORDERED: KETOROLAC TROMETHAMINE INJ/PF 30 MG/1 ML SDV IV ONE (23:29)
[2017-09-14] MEDS ORDERED: HYDROMORPHONE HCL INJ/PF 2 MG/ML AMPULE IV ONE (23:31)
--- NOTE | 2017-09-14 23:34 | ER Document Report ---
ED General - General Chief Complaint: Sickle Cell Crisis Stated Complaint: SICKLE CELL CRISIS Time Seen by Provider: 09/14/17 23:27 Notes: Patient is a 22-year-old female, past medical history sickle cell disease, presents with her usual sickle cell pain in her back and chest. She tried her hydrocodone Motrin at home without much relief of her symptoms. 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 Moreira. Patient denies cough, fevers, difficulty breathing , leg swelling, nausea, vomiting, abdominal pain or urinary symptoms. TRAVEL OUTSIDE OF THE [place] IN LAST 30 DAYS: No - Related Data Allergies/Adverse Reactions: morphine Allergy (Severe, Verified 09/01/17 09:29) RASH,SWELLING jacob peppers Adverse Reaction (Severe, Uncoded 07/19/17 13:17) throat closes Past Medical History - General Information source: Patient - Social History Smoking Status: Never Smoker Frequency of alcohol use: None Family History: Reviewed & Not Pertinent, Hypertension, Other - Sickle cell Patient has suicidal ideation: No Patient has homicidal ideation: No - Past Medical History Cardiac Medical History: Reports: Hx DVT - RUE s/p port placement Denies: Hx Congestive Heart Failure, Hx Coronary Artery Disease, Hx Heart Attack, Hx Hypertension, Hx Pulmonary Embolism Pulmonary Medical History: Reports: Hx Bronchitis - once in past per patient, Hx Pneumonia - history in past per patient Denies: Hx Asthma, Hx COPD, Hx Tuberculosis Neurological Medical History: Denies: Hx Cerebrovascular Accident, Hx Migraine, Hx Seizures Renal/ Medical History: Denies: Hx End Stage Renal Disease, Hx Kidney Stones, Hx Peritoneal Dialysis GI Medical History: Denies: Hx Cirrhosis, Hx Gastroesophageal Reflux Disease, Hx Ulcer Musculoskeltal Medical History: Denies Hx Arthritis, Denies Hx Multiple Sclerosis, Reports Hx Musculoskeletal Trauma Psychiatric Medical History: Reports: Hx Anxiety, Hx Depression - anxiety Denies: Hx Bipolar Disorder, Hx Schizophrenia Past Surgical History: Reports: Hx Cholecystectomy - 06/28/2015, Hx Vascular Surgery - port put in December,, Other - Port-A-Cath - Immunizations Immunizations up to date: Yes Hx Diphtheria, Pertussis, Tetanus Vaccination: Yes Review of Systems - Review of Systems Notes: REVIEW OF SYSTEMS: CONSTITUTIONAL: -fevers, -chills EENT: -eye pain, -difficulty swallowing, -nasal congestion CARDIOVASCULAR: +chest pain, -syncope. RESPIRATORY: -cough, -SOB GASTROINTESTINAL: -abdominal pain, -nausea, -vomiting, -diarrhea GENITOURINARY: -dysuria, -hematuria MUSCULOSKELETAL: +back pain, -neck pain SKIN: -rash or skin lesions. HEMATOLOGIC: -easy bruising or bleeding. LYMPHATIC: -swollen, enlarged glands. NEUROLOGICAL: -altered mental status or loss of consciousness, -headache, - neurologic symptoms PSYCHIATRIC: -anxiety, -depression. ALL OTHER SYSTEMS REVIEWED AND NEGATIVE. Physical Exam - Notes Notes: PHYSICAL EXAMINATION: GENERAL: Well-appearing, well-nourished and in no acute distress. HEAD: Atraumatic, normocephalic. EYES: Pupils equal round and reactive to light, extraocular movements intact, sclera anicteric, conjunctiva are normal. ENT: nares patent, oropharynx clear without exudates. Moist mucous membranes. NECK: Normal range of motion, supple without lymphadenopathy LUNGS: Breath sounds clear to auscultation bilaterally and equal. No wheezes rales or rhonchi. HEART: Regular rate and rhythm without murmurs ABDOMEN: Soft, nontender, normoactive bowel sounds. No guarding, no rebound. No masses appreciated. EXTREMITIES: Normal range of motion, no pitting or edema. No cyanosis. NEUROLOGICAL: Cranial nerves grossly intact. Normal speech, normal gait. Normal sensory and motor exams. PSYCH: Normal mood, normal affect. SKIN: Warm, Dry, normal turgor, no rashes or lesions noted. Course - Re-evaluation Re-evalutation: Patient's chest pain and back pain are chronic in nature and feels similar to her usual sickle cell pain. Blood work, chest x-ray and EKG did not show any acute abnormalities. After IV fluids and pain control, she feels much better and is requesting discharge. 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 - Laboratory Result Diagrams: 09/15/17 00:13 09/15/17 00:13 Laboratory results interpreted by me: 09/15/17 09/15/17 00:13 00:13 RBC 2.42 L Hgb 9.1 L Hct 24.7 L MCV 102 H MCH 37.5 H MCHC 36.7 H RDW 15.3 H Eosinophils % (Manual) 9 H Basophils % (Manual) 3 H Abs Neuts (Manual) 0.0 L Abs Lymphs (Manual) 0.0 L Abs Monocytes (Manual) 0.0 L Retic Count (auto) 7.88 H Absolute Retic 0.185 H Sodium 147.0 H Chloride 111 H BUN 6 L Total Bilirubin 5.6 H - Diagnostic Test Radiology reviewed: Image reviewed, Reports reviewed Radiology results interpreted by me: CXR: NAD - EKG Interpretation by Me EKG shows normal: Sinus rhythm, [place], Intervals, QRS Complexes, ST-T Waves Rate: Normal Discharge - Discharge Clinical Impression: Sickle cell pain crisis Condition: Stable Additional Instructions: Sickle Cell Crisis You have "sickle cell crisis." Sickle cell disease is caused by abnormal hemoglobin. This hemoglobin can deform red blood cells into a sickle shape. These abnormal blood cells can block blood vessels. This causes the pain of sickle cell crisis. Sickle cell crisis can occur any time. But attacks are more likely with acute infection, dehydration, or altitude change. A crisis usually causes pain in the legs, back, abdomen, and chest. Sometimes the pain may ease and return later. The usual treatment is oxygen, pain medication, IV fluids, and treatment of infection. Attacks may take a couple of days to resolve. Return if the pain becomes more severe, or if there are new symptoms. Referrals: JOIE MOREIRA MD [Primary Care Provider] - Follow up as needed
[2017-09-14] MEDS ORDERED: DIPHENHYDRAMINE HCL 50 MG CAPSULE PO ONE (23:55)
[2017-09-15] MEDS: NORMAL SALINE 1000 ML 1,000 ML IV PRN ×2 (00:01→02:44)
[2017-09-15 00:24] LABS: ABSOLUTE RETICS # 0.185 10^6/uL (0.028-0.122); RETICULOCYTE COUNT (AUTO) 7.88 % (0.66-2.85)
[2017-09-15 00:27] LABS: HEMATOCRIT 24.7 % (36.0-47.0); HEMOGLOBIN 9.1 g/dL (12.0-15.5); MEAN CORPUSCULAR HEMOGLOBIN 37.5 pg (27.0-33.4); MEAN CORPUSCULAR HGB CONC 36.7 g/dL (32.0-36.0); MEAN CORPUSCULAR VOLUME 102 fl (80-97); PLATELET COUNT 400 10^3/uL (150-450); RED BLOOD COUNT 2.42 10^6/uL (3.72-5.28); RED CELL DISTRIBUTION WIDTH 15.3 % (11.5-14.0)
[2017-09-15 00:47] LABS: BASOPHILS % (MANUAL) 3 % (0-2); EOSINOPHILS % (MANUAL) 9 % (0-6); LYMPHOCYTES % (MANUAL) 24 % (13-45); MONOCYTES % (MANUAL) 8 % (3-13); NUCLEATED RED BLOOD CELLS 1 /100 WBC (0); SEGMENTED NEUTROPHILS % (MAN) 56 % (42-78); TOTAL CELLS COUNTED 100
[2017-09-15 00:51] LABS: ALANINE AMINOTRANSFERASE 19 U/L (9-52); ALBUMIN 4.1 g/dL (3.5-5.0); ALKALINE PHOSPHATASE 64 U/L (38-126); ANION GAP 10 (5-19); ANISOCYTOSIS 1+; ASPARTATE AMINO TRANSFERASE 20 U/L (14-36); BILIRUBIN,TOTAL 5.6 mg/dL (0.2-1.3); BLOOD UREA NITROGEN 6 mg/dL (7-20); CALCIUM 9.2 mg/dL (8.4-10.2); CARBON DIOXIDE 26 mmol/L (22-30); CHLORIDE 111 mmol/L (98-107); GLUCOSE 85 mg/dL (75-110); HYPOCHROMASIA 2+; POIKILOCYTOSIS 1+; POLYCHROMASIA 1+; POTASSIUM 4.3 mmol/L (3.6-5.0); SCHISTOCYTES SLIGHT; TOTAL PROTEIN 7.1 g/dL (6.3-8.2)
[2017-09-15 00:52] LABS: PLATELET COMMENT ADEQUATE; SICKLE RED CELLS 2+; TARGET CELLS 1+
[2017-09-15 00:53] LABS: WHITE BLOOD COUNT 10.4 10^3/uL (4.0-10.5)
[2017-09-15] MEDS ORDERED: HYDROMORPHONE HCL INJ/PF 2 MG/ML AMPULE IV ONE (00:55)
--- NOTE | 2017-09-15 00:58 | RADIOLOGY REPORT (SQ) ---
EXAM DESCRIPTION: XR CHEST 1 VIEW COMPLETED DATE/TME: 09/14/2017 23:35 CLINICAL HISTORY: chest pain COMPARISON: 09/06/2017 FINDINGS: Single frontal view of the chest. The cardiomediastinal silhouette has normal size and contour. No consolidation, pneumothorax, or pleural effusion. Leads overlie the chest. No acute osseous abnormalities. Right IJ Mediport with tip in SVC. Upper abdominal soft tissues are unremarkable. IMPRESSION: 1. No acute pulmonary process identified.
[2017-09-15 03:02] VITALS: BP 100/54
--- NOTE | 2017-09-15 15:35 | EKG REPORT ---
SEVERITY:- NORMAL ECG - SINUS RHYTHM : Confirmed by: Mary Vega MD 15-Sep-2017 15:34:11
== END 2017-09-15 02:50 | disposition home or self-care (01) ==
LOC: ER 22:37
DX: D57.00 Hb-SS disease with crisis, unspecified (principal); Z88.6 Allergy status to analgesic agent; Z86.718 Personal history of other venous thrombosis and embolism; Z90.49 Acquired absence of other specified parts of digestive tract
CPT/HCPCS: 93005; 36591; 99284; 96361; 96374; 96375; 36415; 85025; 85045; 80053; 71045; 93010; J3490; J1885; J1170; J7030

== ENCOUNTER 2017-09-15 18:36 | Emergency (ER) | payer MEDICAID ==
[2017-09-15 18:44] VITALS: BP 98/48
[2017-09-15] MEDS ORDERED: FENTANYL CITRATE INJ/PF 100 MCG/2 ML AMPUL IV ONE ×2 (20:01→23:17)
--- NOTE | 2017-09-15 20:24 | ER Document Report ---
ED Medical Screen (RME) - General TRAVEL OUTSIDE OF THE [place] IN LAST 30 DAYS: No - General Chief Complaint: Sickle Cell Crisis Stated Complaint: BACK PAIN Time Seen by Provider: 09/15/17 19:57 Notes: Patient is a 22-year-old female with sickle cell disease that presents to the emergency department today with complaints of lower back pain, chest pain, and a cough. Patient has had acute chest in the past and she states that her chest pain today is not as severe as her acute chest. Patient denies any shortness of breath, fevers, or dysuria. Patient was discharged from this facility last night and told to return if pain worsened which it has. I have greeted and performed a rapid initial assessment of this patient. A comprehensive ED assessment and evaluation of the patient, analysis of test results, and completion of the medical decision making process will be conducted by additional ED providers. Review of systems: Positive for cough, lower back pain and chest pain. Negative for shortness of breath, fevers, dysuria. PHYSICAL EXAM GENERAL: Alert, interacts well. Appears minimally uncomfortable, no acute distress. HEAD: Normocephalic, atraumatic. EYES: Pupils equal, round, and reactive to light. Slightly jaundiced sclerae. Extraocular movements intact. ENT: Oral mucosa moist, tongue midline. NECK: Full range of motion. Supple. Trachea midline. LUNGS: Clear to auscultation bilaterally, no wheezes, rales, or rhonchi. No respiratory distress. HEART: Regular rate and rhythm. No murmurs, gallops, or rubs. ABDOMEN: Soft, non-tender. Non-distended. Bowel sounds present in all 4 quadrants. No guarding, rigidity, or rebound. EXTREMITIES: Moves all 4 extremities spontaneously. No edema, radial and dorsalis pedis pulses 2/4 bilaterally. No cyanosis. NEUROLOGICAL: Alert and oriented x3. Normal speech. PSYCH: Normal affect, normal mood. SKIN: Warm, dry, normal turgor. No rashes or lesions noted. (CRISSY STERN) - Related Data Allergies/Adverse Reactions: morphine Allergy (Severe, Verified 09/01/17 09:29) RASH,SWELLING jacob peppers Adverse Reaction (Severe, Uncoded 07/19/17 13:17) throat closes Past Medical History - Social History Chew tobacco use (# tins/day): No Frequency of alcohol use: None Drug Abuse: None Family history: Reviewed & Not Pertinent, Other - Pt was adopted. Does not know family history - Past Medical History Cardiac Medical History: Reports: Hx DVT - RUE s/p port placement Denies: Hx Congestive Heart Failure, Hx Coronary Artery Disease, Hx Heart Attack, Hx Hypertension, Hx Pulmonary Embolism Pulmonary Medical History: Reports: Hx Bronchitis - once in past per patient, Hx Pneumonia - history in past per patient Denies: Hx Asthma, Hx COPD, Hx Tuberculosis Neurological Medical History: Denies: Hx Cerebrovascular Accident, Hx Migraine, Hx Seizures Renal/ Medical History: Denies: Hx End Stage Renal Disease, Hx Kidney Stones, Hx Peritoneal Dialysis GI Medical History: Denies: Hx Cirrhosis, Hx Gastroesophageal Reflux Disease, Hx Ulcer Musculoskeltal Medical History: Denies Hx Arthritis, Denies Hx Multiple Sclerosis, Reports Hx Musculoskeletal Trauma Psychiatric Medical History: Reports: Hx Anxiety, Hx Depression - anxiety Denies: Hx Bipolar Disorder, Hx Schizophrenia Past Surgical History: Reports: Hx Cholecystectomy - 06/28/2015, Hx Vascular Surgery - port put in December,, Other - Port-A-Cath - Immunizations Immunizations up to date: Yes Hx Diphtheria, Pertussis, Tetanus Vaccination: Yes History of Influenza Vaccine for 12/2016 - 05/2017 Season: Yes Influenza Administration Date for 12/2016 - 05/2017 Season: 03/11/18 - Vital signs Vitals: Temp Pulse Resp BP Pulse Ox 98.9 F 73 17 98/48 L 95 09/15/17 18:42 09/15/17 18:42 09/15/17 18:42 09/15/17 18:42 09/15/17 18:42 - Vital Signs Vital signs: Temp Pulse Resp BP Pulse Ox 98.9 F 73 17 98/48 L 95 09/15/17 18:42 09/15/17 18:42 09/15/17 18:42 09/15/17 18:42 09/15/17 18:42 - Laboratory Laboratory results interpreted by me: 09/15/17 20:10 Urine Urobilinogen 2.0 H Doctor's Discharge - Discharge Referrals: JOIE MOREIRA MD [Primary Care Provider] - Follow up as needed
[2017-09-15 20:31] LABS: APPEARANCE,URINE CLEAR; BILIRUBIN,URINE NEGATIVE (NEGATIVE); COLOR,URINE YELLOW; GLUCOSE, URINE NEGATIVE (NEGATIVE); KETONES,URINE NEGATIVE (NEGATIVE); LEUKOCYTE ESTERASE,URINE NEGATIVE (NEGATIVE); NITRITE,URINE NEGATIVE (NEGATIVE); PROTEIN,URINE NEGATIVE (NEGATIVE); URINE SPECIFIC GRAVITY 1.009
--- NOTE | 2017-09-15 23:10 | RADIOLOGY REPORT (SQ) ---
PROCEDURE: Chest two view CLINICAL HISTORY: cough, hx sickle cell INDICATION: Same as above COMPARISON: 09/15/2017 TECHNIQUE: PA and and lateral chest radiographs were obtained. FINDINGS: There is stable position of the right-sided Mediport catheter. Note is again made of multilevel Schmorl disc phenomena along the superior and inferior endplates of the visualized thoracic and the lumbar spine , giving a biconcave appearance to the vertebral bodies, unchanged and most likely related to patient's history of sickle cell disease There are no discrete airspace infiltrates, pneumothoraces or pleural effusions. The pulmonary vascularity is normal The cardiomediastinal silhouette is unremarkable for patient's age and sex. IMPRESSION: There is no acute pleural-parenchymal process seen in the imaged lung [place]. Place of interpretation: [facility].
--- NOTE | 2017-09-15 23:34 | ER Document Report ---
ED General - General Chief Complaint: Sickle Cell Crisis Stated Complaint: BACK PAIN Time Seen by Provider: 09/15/17 19:57 Mode of Arrival: Ambulatory Information source: Patient, [facility] Records Notes: 22-year-old female history of sickle cell disease presents with complaints of her chronic pain. Patient notes it is in her chest and the low back. Patient was seen yesterday for the same complaint. She states the pain has not gone away. She does note that she is out of her oxycodone until the Review of her medications notes that she had a prescription of 60 tablets 5mg oxycodone filled on August 27 and should have lasted her one month TRAVEL OUTSIDE OF THE [place] IN LAST 30 DAYS: No - HPI Onset: Other Onset/Duration: Intermittent, Waxing and waning Quality of pain: Sharp Severity: Mild Pain Level: 1 Associated symptoms: Body/muscle aches, Chest pain Exacerbated by: Denies Relieved by: Denies Similar symptoms previously: Yes Recently seen / treated by doctor: Yes - Related Data Allergies/Adverse Reactions: morphine Allergy (Severe, Verified 09/01/17 09:29) RASH,SWELLING jacob peppers Adverse Reaction (Severe, Uncoded 07/19/17 13:17) throat closes Past Medical History - Social History Smoking Status: Never Smoker Cigarette use (# per day): No Chew tobacco use (# tins/day): No Smoking Education Provided: No Frequency of alcohol use: None Drug Abuse: None Family History: Reviewed & Not Pertinent, Hypertension, Other - Sickle cell Patient has suicidal ideation: No Patient has homicidal ideation: No - Past Medical History Cardiac Medical History: Reports: Hx DVT - RUE s/p port placement Denies: Hx Congestive Heart Failure, Hx Coronary Artery Disease, Hx Heart Attack, Hx Hypertension, Hx Pulmonary Embolism Pulmonary Medical History: Reports: Hx Bronchitis - once in past per patient, Hx Pneumonia - history in past per patient Denies: Hx Asthma, Hx COPD, Hx Tuberculosis Neurological Medical History: Denies: Hx Cerebrovascular Accident, Hx Migraine, Hx Seizures Renal/ Medical History: Denies: Hx End Stage Renal Disease, Hx Kidney Stones, Hx Peritoneal Dialysis GI Medical History: Denies: Hx Cirrhosis, Hx Gastroesophageal Reflux Disease, Hx Ulcer Musculoskeltal Medical History: Denies Hx Arthritis, Denies Hx Multiple Sclerosis, Reports Hx Musculoskeletal Trauma Psychiatric Medical History: Reports: Hx Anxiety, Hx Depression - anxiety Denies: Hx Bipolar Disorder, Hx Schizophrenia Past Surgical History: Reports: Hx Cholecystectomy - 06/28/2015, Hx Vascular Surgery - port put in December,, Other - Port-A-Cath - Immunizations Immunizations up to date: Yes Hx Diphtheria, Pertussis, Tetanus Vaccination: Yes Review of Systems - Review of Systems Notes: REVIEW OF SYSTEMS: CONSTITUTIONAL : Denies fever, chills, or sweats. Denies recent illness. EENT: Denies eye, ear, throat, or mouth pain or symptoms. Denies nasal or sinus congestion or discharge. Denies throat, tongue, or mouth swelling or difficulty swallowing. CARDIOVASCULAR: Admits to chest pain. RESPIRATORY: Denies cough, cold, or chest congestion. Denies shortness of breath, difficulty breathing, or wheezing. GASTROINTESTINAL: Denies abdominal pain or distention. Denies nausea, vomiting , or diarrhea. Denies blood in vomitus, stools, or per rectum. Denies black, tarry stools. Denies constipation. GENITOURINARY: Denies difficulty urinating, painful urination, burning, frequency, blood in urine, or discharge. FEMALE GENITOURINARY: Denies vaginal bleeding, heavy or abnormal periods, irregular periods. Denies vaginal discharge or odor. MUSCULOSKELETAL: Admits to back pain SKIN: Denies rash, lesions or sores. HEMATOLOGIC : Denies easy bruising or bleeding. LYMPHATIC: Denies swollen, enlarged glands. NEUROLOGICAL: Denies confusion or altered mental status. Denies passing out or loss of consciousness. Denies dizziness or lightheadedness. Denies headache. Denies weakness or paralysis or loss of use of either side. Denies problems with gait or speech. Denies sensory loss, numbness, or tingling. Denies seizures. PSYCHIATRIC: Denies anxiety or stress. Denies depression, suicidal ideation, or homicidal ideation. ALL OTHER SYSTEMS REVIEWED AND NEGATIVE. PHYSICAL EXAMINATION: GENERAL: Well-appearing, well-nourished and in no acute distress. HEAD: Atraumatic, normocephalic. EYES: Pupils equal round and reactive to light, extraocular movements intact, conjunctiva are normal. ENT: Nares patent, oropharynx clear without exudates. Moist mucous membranes. NECK: Normal range of motion, supple without lymphadenopathy LUNGS: Breath sounds clear to auscultation bilaterally and equal. No wheezes rales or rhonchi. HEART: Regular rate and rhythm without murmurs ABDOMEN: Soft, nontender, nondistended abdomen. No guarding, no rebound. No masses appreciated. Female : deferred Musculoskeletal: Normal range of motion, no pitting or edema. No cyanosis. NEUROLOGICAL: Cranial nerves grossly intact. Normal speech, normal gait. Normal sensory, motor exams PSYCH: Normal mood, normal affect. SKIN: Warm, Dry, normal turgor, no rashes or lesions noted. Dictation was performed using [employer] voice recognition software Physical Exam - Vital signs Vitals: Temp Pulse Resp BP Pulse Ox 98.9 F 73 17 98/48 L 95 09/15/17 18:42 09/15/17 18:42 09/15/17 18:42 09/15/17 18:42 09/15/17 18:42 Course - Re-evaluation Re-evalutation: 09/15/17 23:38 Patient is in no distress upon my evaluation, she is sleeping comfortably, it was noted in triage that patient was crying but I did not notice this upon my evaluation, she looks well, her presentation is most consistent with chronic pain since she is out of her pain medication I will give her a dose of fentanyl here 09/16/17 00:05 I watched patient walk down the [place]aver, she was in no distress, I thought she was walking to the bathroom but appears she has decided to leave without complete lab work results, Therefore she is eloping - Vital Signs Vital signs: Temp Pulse Resp BP Pulse Ox 98.9 F 73 17 98/48 L 95 09/15/17 18:42 09/15/17 18:42 09/15/17 18:42 09/15/17 18:42 09/15/17 18:42 - Laboratory Result Diagrams: 09/15/17 23:36 09/15/17 23:36 Laboratory results interpreted by me: 09/15/17 20:10 Urine Urobilinogen 2.0 H Discharge - Discharge Clinical Impression: Sickle cell pain crisis Condition: Stable Disposition: ELOPED Referrals: JOIE MOREIRA MD [Primary Care Provider] - Follow up as needed
[2017-09-16 00:02] LABS: HEMATOCRIT 24.8 % (36.0-47.0); MEAN CORPUSCULAR HEMOGLOBIN 37.4 pg (27.0-33.4); MEAN CORPUSCULAR HGB CONC 36.4 g/dL (32.0-36.0); MEAN CORPUSCULAR VOLUME 103 fl (80-97); PLATELET COUNT 417 10^3/uL (150-450); RED BLOOD COUNT 2.42 10^6/uL (3.72-5.28); RED CELL DISTRIBUTION WIDTH 15.2 % (11.5-14.0); RETICULOCYTE COUNT (AUTO) 9.52 % (0.66-2.85); WHITE BLOOD COUNT 12.4 10^3/uL (4.0-10.5)
[2017-09-16 00:05] LABS: ALANINE AMINOTRANSFERASE 16 U/L (9-52); ALKALINE PHOSPHATASE 47 U/L (38-126); ANION GAP 8 (5-19); ASPARTATE AMINO TRANSFERASE 23 U/L (14-36); BILIRUBIN,DIRECT 0.2 mg/dL (0.0-0.4); BILIRUBIN,TOTAL 5.4 mg/dL (0.2-1.3); BLOOD UREA NITROGEN 5 mg/dL (7-20); CALCIUM 8.9 mg/dL (8.4-10.2); CARBON DIOXIDE 27 mmol/L (22-30); CHLORIDE 110 mmol/L (98-107); GLUCOSE 94 mg/dL (75-110); POTASSIUM 3.5 mmol/L (3.6-5.0); SODIUM 144.9 mmol/L (137-145); TOTAL PROTEIN 7.2 g/dL (6.3-8.2)
[2017-09-16 00:32] LABS: ABSOLUTE LYMPHOCYTES# (MANUAL) 4.8 10^3/uL (0.5-4.7); ABSOLUTE MONOCYTES # (MANUAL) 1.1 10^3/uL (0.1-1.4); ABSOLUTE NEUTROPHILS# (MANUAL) 5.1 10^3/uL (1.7-8.2); BASOPHILS % (MANUAL) 2 % (0-2); EOSINOPHILS % (MANUAL) 9 % (0-6); LYMPHOCYTES % (MANUAL) 39 % (13-45); MONOCYTES % (MANUAL) 9 % (3-13); NUCLEATED RED BLOOD CELLS 4 /100 WBC (0); SEGMENTED NEUTROPHILS % (MAN) 41 % (42-78); TOTAL CELLS COUNTED 100
[2017-09-16 00:35] LABS: ANISOCYTOSIS 1+; HYPOCHROMASIA 1+; POIKILOCYTOSIS 1+; POLYCHROMASIA 1+
[2017-09-16 00:36] LABS: PLATELET COMMENT ADEQUATE; SCHISTOCYTES 1+; TARGET CELLS 1+
== END 2017-09-16 00:08 | disposition left against medical advice (07) ==
LOC: ER 18:36
DX: D57.00 Hb-SS disease with crisis, unspecified (principal); G89.29 Other chronic pain; R07.9 Chest pain, unspecified; M54.5 Low back pain; Z88.5 Allergy status to narcotic agent; Z53.20 Procedure and treatment not carried out because of patient's decision for unspecified reasons
CPT/HCPCS: 36415; 71046; 80053; 81001; 84703; 85025; 85045; 99281

== ENCOUNTER 2017-09-24 07:02 | Emergency (ER) | payer MEDICAID ==
[2017-09-24] MEDS ORDERED: ONDANSETRON HCL INJ/PF 4 MG/2 ML SDV IV ONE (08:38)
[2017-09-24] MEDS ORDERED: HYDROMORPHONE HCL INJ/PF 2 MG/ML AMPULE IV ONE (08:38)
[2017-09-24] MEDS ORDERED: NORMAL SALINE 1000 ML 1,000 ML IV ONE (08:38)
[2017-09-24] MEDS ORDERED: ONDANSETRON 4 MG TAB.RAPDIS PO ONE (09:13)
[2017-09-24] MEDS ORDERED: DIPHENHYDRAMINE HCL 50 MG/ML VIAL IV ONE (09:13)
[2017-09-24 10:17] LABS: HEMATOCRIT 28.4 % (36.0-47.0); HEMOGLOBIN 10.3 g/dL (12.0-15.5); MEAN CORPUSCULAR HEMOGLOBIN 36.3 pg (27.0-33.4); MEAN CORPUSCULAR HGB CONC 36.2 g/dL (32.0-36.0); MEAN CORPUSCULAR VOLUME 100 fl (80-97); PLATELET COUNT 356 10^3/uL (150-450); RED BLOOD COUNT 2.83 10^6/uL (3.72-5.28); RED CELL DISTRIBUTION WIDTH 14.7 % (11.5-14.0); WHITE BLOOD COUNT 11.2 10^3/uL (4.0-10.5)
--- NOTE | 2017-09-24 10:28 | ER Document Report ---
ED General Pain - General Mode of Arrival: Ambulatory Information source: Patient TRAVEL OUTSIDE OF THE [place] IN LAST 30 DAYS: No <CRISSY STERN - Last Filed: 09/24/17 13:53> <ROSARIO FLOWERS - Last Filed: 09/25/17 06:26> - General Chief Complaint: Sickle Cell Crisis Stated Complaint: POSSIBLE SICKLE CELL CRISIS Time Seen by Provider: 09/24/17 08:37 Notes: Patient is a 22-year-old female with sickle cell disease who presents to the emergency department today with complaints of a pain crisis in her lower back. Patient states her pain today is similar to her previous sickle cell pain. Patient states she has oxycodone at home for pain which has not relieved her pain today. Patient describes the pain as a sharp and throbbing pain. Patient also mentions she has had a cough for the last 10 days. Patient denies any fevers, abdominal pain, chest pain, or urinary symptoms. Patient was offered pain meds but she states her pain is well controlled now. (CRISSY STERN) - Related Data Allergies/Adverse Reactions: morphine Allergy (Severe, Verified 09/24/17 15:32) RASH,SWELLING jacob peppers Adverse Reaction (Severe, Uncoded 09/24/17 15:32) throat closes Past Medical History - General Information source: Patient - Social History Smoking Status: Unknown if Ever Smoked Cigarette use (# per day): No Frequency of alcohol use: None Drug Abuse: None Lives with: Family Family History: Reviewed & Not Pertinent, Hypertension, Other - Sickle cell Patient has suicidal ideation: No Patient has homicidal ideation: No - Past Medical History Cardiac Medical History: Reports: Hx DVT - RUE s/p port placement Pulmonary Medical History: Reports: Hx Bronchitis - once in past per patient, Hx Pneumonia - history in past per patient Musculoskeltal Medical History: Reports Hx Musculoskeletal Trauma Psychiatric Medical History: Reports: Hx Anxiety, Hx Depression - anxiety Past Surgical History: Reports: Hx Cholecystectomy - 06/28/2015, Hx Vascular Surgery - port put in December,, Other - Port-A-Cath - Immunizations Immunizations up to date: Yes Hx Diphtheria, Pertussis, Tetanus Vaccination: Yes <CRISSY STERN - Last Filed: 09/24/17 13:53> Review of Systems - Review of Systems Constitutional: denies: Fever EENT: No symptoms reported Cardiovascular: denies: Chest pain Respiratory: See HPI, Cough Gastrointestinal: denies: Abdominal pain Genitourinary: No symptoms reported Female Genitourinary: No symptoms reported Musculoskeletal: See HPI, Back pain Skin: No symptoms reported Hematologic/Lymphatic: No symptoms reported Neurological/Psychological: No symptoms reported -: Yes All other systems reviewed and negative <CRISSY STERN - Last Filed: 09/24/17 13:53> Physical Exam <CRISSY STERN - Last Filed: 09/24/17 13:53> <ROSARIO FLOWERS - Last Filed: 09/25/17 06:26> - Vital signs Vitals: Temp Pulse Resp BP Pulse Ox 98.6 F 87 18 108/52 L 98 09/24/17 07:06 09/24/17 07:06 09/24/17 07:06 09/24/17 07:06 09/24/17 07:06 - Notes Notes: Physical Exam: General: Alert, appears well. HEENT: Normocephalic. Atraumatic. PERRL. Extraocular movements intact. Oropharynx clear. Neck: Supple. Non-tender. Respiratory: No respiratory distress. Clear and equal breath sounds bilaterally. Cardiovascular: Regular rate and rhythm. Abdominal: Normal Inspection. Non-tender. No distension. Normal Bowel Sounds. Back: Non-tender. No deformity or step off. Extremities: Moves all four extremities. Upper extremities: Normal inspection. Normal ROM. Lower extremities: Normal inspection. No edema. Normal ROM. Neurological: Normal cognition. AAOx4. Normal speech. Psychological: Normal affect. Normal Mood. Skin: Warm. Dry. Normal color. (CRISSY STERN) Course - Laboratory Result Diagrams: 09/24/17 09:59 09/24/17 09:59 <CRISSY STERN - Last Filed: 09/24/17 13:53> - Laboratory Result Diagrams: 09/24/17 09:59 09/24/17 09:59 <ROSARIO FLOWERS - Last Filed: 09/25/17 06:26> - Re-evaluation Re-evalutation: 09/24/17 11:00 Patient well-appearing labs within normal limits are trending within her baseline. Patient's pain has improved with IV medications. She denied any medication needs after initial history and physical. Patient will be discharged at this time. She states she does have pain medications at her house and she will take those as needed. She states that her pain is similar to her previous pain episodes (ROSARIO FLOWERS) - Vital Signs Vital signs: Temp Pulse Resp BP Pulse Ox 98.1 F 83 18 102/50 L 98 09/24/17 11:19 09/24/17 11:19 09/24/17 11:19 09/24/17 11:19 09/24/17 11:19 - Laboratory Laboratory results interpreted by me: 09/24/17 09/24/17 09/24/17 09:59 09:59 10:20 WBC 11.2 H RBC 2.83 L Hgb 10.3 L Hct 28.4 L MCV 100 H MCH 36.3 H MCHC 36.2 H RDW 14.7 H Monocytes % (Manual) 2 L Eosinophils % (Manual) 8 H Absolute Eos (Manual) 0.9 H Sodium 145.3 H Chloride 110 H Glucose 68 L Total Bilirubin 5.1 H Urine Urobilinogen 4.0 H Discharge <CRISSY STERN - Last Filed: 09/24/17 13:53> <ROSARIO FLOWERS - Last Filed: 09/25/17 06:26> - Discharge Clinical Impression: Back pain Qualifiers: Back pain location: low back pain Chronicity: acute Back pain laterality: bilateral Sciatica presence: without sciatica Qualified Code(s): M54.5 - Low back pain Condition: Good Disposition: HOME, SELF-CARE Instructions: Low Back Pain ([facility]) Additional Instructions: Please take your pain medications at home for the back pain he experienced during sickle cell pain episodes. Return to the emergency department for any other concerns Referrals: JOIE MOREIRA MD [Primary Care Provider] - Follow up as needed Scribe Attestation: 09/25/17 06:26 I personally performed the services described documentation, reviewed and edited the documentation which was dictated to describe my presence, and it accurately records my words and actions. (ROSARIO FLOWERS) Scribe Documentation - Scribe Written by Scribe:: Marisel Bower, 09/24/2017 1035 acting as scribe for :: Andrea <CRISSY STERN - Last Filed: 09/24/17 13:53>
[2017-09-24 10:29] LABS: ALANINE AMINOTRANSFERASE 25 U/L (9-52); ALBUMIN 4.3 g/dL (3.5-5.0); ALKALINE PHOSPHATASE 64 U/L (38-126); ANION GAP 11 (5-19); ASPARTATE AMINO TRANSFERASE 27 U/L (14-36); BILIRUBIN,DIRECT 0.4 mg/dL (0.0-0.4); BILIRUBIN,TOTAL 5.1 mg/dL (0.2-1.3); BLOOD UREA NITROGEN 9 mg/dL (7-20); CALCIUM 8.6 mg/dL (8.4-10.2); CARBON DIOXIDE 24 mmol/L (22-30); CHLORIDE 110 mmol/L (98-107); GLUCOSE 68 mg/dL (75-110); POTASSIUM 4.5 mmol/L (3.6-5.0); SODIUM 145.3 mmol/L (137-145); TOTAL PROTEIN 7.4 g/dL (6.3-8.2)
[2017-09-24 10:48] LABS: APPEARANCE,URINE CLEAR; BILIRUBIN,URINE NEGATIVE (NEGATIVE); COLOR,URINE YELLOW; GLUCOSE, URINE NEGATIVE (NEGATIVE); KETONES,URINE NEGATIVE (NEGATIVE); LEUKOCYTE ESTERASE,URINE NEGATIVE (NEGATIVE); NITRITE,URINE NEGATIVE (NEGATIVE); PROTEIN,URINE NEGATIVE (NEGATIVE)
[2017-09-24 10:49] LABS: ABSOLUTE LYMPHOCYTES# (MANUAL) 2.7 10^3/uL (0.5-4.7); ABSOLUTE MONOCYTES # (MANUAL) 0.2 10^3/uL (0.1-1.4); ABSOLUTE NEUTROPHILS# (MANUAL) 7.3 10^3/uL (1.7-8.2); BASOPHILS % (MANUAL) 1 % (0-2); EOSINOPHILS % (MANUAL) 8 % (0-6); LYMPHOCYTES % (MANUAL) 24 % (13-45); MONOCYTES % (MANUAL) 2 % (3-13); NUCLEATED RED BLOOD CELLS 1 /100 WBC (0); SEGMENTED NEUTROPHILS % (MAN) 65 % (42-78); TOTAL CELLS COUNTED 100
[2017-09-24 10:50] LABS: ANISOCYTOSIS SLIGHT; PLATELET COMMENT ADEQUATE; POIKILOCYTOSIS 2+; POLYCHROMASIA 2+; SCHISTOCYTES SLIGHT; SICKLE RED CELLS 1+; TOXIC GRANULATION SLIGHT; TOXIC VACUOLATION PRESENT
[2017-09-24 11:25] VITALS: BP 102/50
== END 2017-09-24 11:24 | disposition home or self-care (01) ==
LOC: ER 07:02
DX: M54.5 Low back pain (principal); D57.00 Hb-SS disease with crisis, unspecified; Z79.899 Other long term (current) drug therapy
CPT/HCPCS: 99284; 96361; 96374; 96375; 36415; 84703; 85025; 80053; 81001; J1200; S0119; J1170; J7030

== ENCOUNTER 2017-09-24 15:31 | Emergency (ER) | payer MEDICAID ==
[2017-09-24] MEDS ORDERED: HYDROMORPHONE HCL INJ/PF 2 MG/ML AMPULE IM ONE (16:49)
--- NOTE | 2017-09-24 16:52 | ER Document Report ---
ED Medical Screen (RME) - General Chief Complaint: Back Pain Stated Complaint: PAIN Time Seen by Provider: 09/24/17 16:39 Notes: RAPID MEDICAL EVALUATION DISCLOSURE I have seen this patient as part of a Rapid Medical Evaluation and, if applicable, placed any initially appropriate orders. The patient will be seen and fully evaluated, including a full history and physical exam, by a provider ( in Main ED or Fast Track) when a room becomes available. 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 She states that she is having continued pain. She took a 5 mg oxycodone prior to arrival. EXAM CTAB RRR TRAVEL OUTSIDE OF THE [place] IN LAST 30 DAYS: No - Related Data Allergies/Adverse Reactions: morphine Allergy (Severe, Verified 09/24/17 15:32) RASH,SWELLING jacob peppers Adverse Reaction (Severe, Uncoded 09/24/17 15:32) throat closes Past Medical History - Social History Chew tobacco use (# tins/day): No Drug Abuse: None Family history: Reviewed & Not Pertinent, Other - Pt was adopted. Does not know family history - Past Medical History Cardiac Medical History: Reports: Hx DVT - RUE s/p port placement Denies: Hx Congestive Heart Failure, Hx Coronary Artery Disease, Hx Heart Attack, Hx Hypertension, Hx Pulmonary Embolism Pulmonary Medical History: Reports: Hx Bronchitis - once in past per patient, Hx Pneumonia - history in past per patient Denies: Hx Asthma, Hx COPD, Hx Tuberculosis Neurological Medical History: Denies: Hx Cerebrovascular Accident, Hx Migraine, Hx Seizures Renal/ Medical History: Denies: Hx End Stage Renal Disease, Hx Kidney Stones, Hx Peritoneal Dialysis GI Medical History: Denies: Hx Cirrhosis, Hx Gastroesophageal Reflux Disease, Hx Ulcer Musculoskeltal Medical History: Denies Hx Arthritis, Denies Hx Multiple Sclerosis, Reports Hx Musculoskeletal Trauma Psychiatric Medical History: Reports: Hx Anxiety, Hx Depression - anxiety Denies: Hx Bipolar Disorder, Hx Schizophrenia Past Surgical History: Reports: Hx Cholecystectomy - 06/28/2015, Hx Vascular Surgery - port put in December,, Other - Port-A-Cath - Immunizations Immunizations up to date: Yes Hx Diphtheria, Pertussis, Tetanus Vaccination: Yes History of Influenza Vaccine for 12/2016 - 05/2017 Season: Yes Influenza Administration Date for 12/2016 - 05/2017 Season: 03/11/18 Physical Exam - Vital signs Vitals: Temp Pulse Resp BP Pulse Ox 99.0 F 81 16 108/54 L 97 09/24/17 15:43 09/24/17 15:43 09/24/17 15:43 09/24/17 15:43 09/24/17 15:43 Course - Vital Signs Vital signs: Temp Pulse Resp BP Pulse Ox 99.0 F 81 16 108/54 L 97 09/24/17 15:43 09/24/17 15:43 09/24/17 15:43 09/24/17 15:43 09/24/17 15:43 Doctor's Discharge - Discharge Referrals: JOIE MOREIRA MD [Primary Care Provider] - Follow up as needed
[2017-09-24 17:01] LABS: ABSOLUTE RETICS # 0.143 10^6/uL (0.028-0.122); RETICULOCYTE COUNT (AUTO) 4.93 % (0.66-2.85)
[2017-09-24] MEDS ORDERED: DIPHENHYDRAMINE HCL 25 MG CAPSULE PO ONE (17:28)
[2017-09-24] MEDS ORDERED: NORMAL SALINE 1000 ML 1,000 ML IV PRN (19:09)
[2017-09-24] MEDS ORDERED: NORMAL SALINE 1000 ML 1,000 ML IV ONE (19:09)
--- NOTE | 2017-09-24 19:12 | ER Document Report ---
ED General Pain - General Chief Complaint: Back Pain Stated Complaint: PAIN Time Seen by Provider: 09/24/17 16:39 Mode of Arrival: Ambulatory Information source: Patient Notes: Chief complaint: Sickle cell disease History of complain:( obtained from----patient) 22 years old female with a history of sickle cells, was seen this morning, given Dilaudid as well as she took her own Dilaudid 2 mg. Which she takes 4 times a day. After discharge from the hospital when for follow-up at hematology. They found the blood pressure to be low. She was sent back again to the ED. Patient currently feeling comfortable. Has chronic low back pain. Denied any fever chills or other constitutional symptoms. Onset: As above Duration: Gradual Severity: Moderate Quality: Sharp Context: Sickle cell disease Exacerbating factor and relieving factors: Not contribute REVIEW OF SYSTEMS: CONSTITUTIONAL : Denies fever, chills, or sweats. Denies recent illness. EENT: Denies eye, ear, throat, or mouth pain or symptoms. Denies nasal or sinus congestion or discharge. Denies throat, tongue, or mouth swelling or difficulty swallowing. CARDIOVASCULAR: Denies chest pain. Denies palpitations or racing or irregular heart beat. Denies ankle edema. RESPIRATORY: Denies cough, cold, or chest congestion. Denies shortness of breath, difficulty breathing, or wheezing. GASTROINTESTINAL: Denies distention. Denies nausea, vomiting, or diarrhea. Denies blood in vomitus, stools, or per rectum. Denies black, tarry stools. Denies constipation. GENITOURINARY: Denies difficulty urinating, painful urination, burning, frequency, blood in urine, or discharge. FEMALE GENITOURINARY: Denies vaginal bleeding, heavy or abnormal periods, irregular periods. Denies vaginal discharge or odor. MUSCULOSKELETAL: Denies back or neck pain or stiffness. Denies joint pain or swelling. SKIN: Denies rash, lesions or sores. HEMATOLOGIC : Denies easy bruising or bleeding. LYMPHATIC: Denies swollen, enlarged glands. NEUROLOGICAL: Denies confusion or altered mental status. Denies passing out or loss of consciousness. Denies dizziness or lightheadedness. Denies headache. Denies weakness or paralysis or loss of use of either side. Denies problems with gait or speech. Denies sensory loss, numbness, or tingling. Denies seizures. PSYCHIATRIC: Denies anxiety or stress. Denies depression, suicidal ideation, or homicidal ideation. ALL OTHER SYSTEMS REVIEWED AND NEGATIVE. PHYSICAL EXAMINATION: GENERAL: Well-appearing, well-nourished and in no acute distress. HEAD: Atraumatic, normocephalic. EYES: Pupils equal round and reactive to light, extraocular movements intact, conjunctiva are normal. ENT: Nares patent, oropharynx clear without exudates. Moist mucous membranes. NECK: Normal range of motion, supple without lymphadenopathy LUNGS: Breath sounds clear to auscultation bilaterally and equal. No wheezes rales or rhonchi. HEART: Regular rate and rhythm without murmurs ABDOMEN: Soft, nontender, nondistended abdomen. No guarding, no rebound. No masses appreciated. Examination of genitals-deferred Musculoskeletal: Normal range of motion, no pitting or edema. No cyanosis. NEUROLOGICAL: Cranial nerves grossly intact. Normal speech, normal gait. Normal sensory, motor exams PSYCH: Normal mood, normal affect. SKIN: Warm, Dry, normal turgor, no rashes or lesions noted. Dictation was performed using [employer] voice recognition software sickle cell disease TRAVEL OUTSIDE OF THE [place] IN LAST 30 DAYS: No - Related Data Allergies/Adverse Reactions: morphine Allergy (Severe, Verified 09/24/17 15:32) RASH,SWELLING jacob peppers Adverse Reaction (Severe, Uncoded 09/24/17 15:32) throat closes Past Medical History - Social History Smoking Status: Never Smoker Chew tobacco use (# tins/day): No Drug Abuse: None Family History: Reviewed & Not Pertinent, Hypertension, Other - Sickle cell Patient has suicidal ideation: No Patient has homicidal ideation: No - Past Medical History Cardiac Medical History: Reports: Hx DVT - RUE s/p port placement Denies: Hx Congestive Heart Failure, Hx Coronary Artery Disease, Hx Heart Attack, Hx Hypertension, Hx Pulmonary Embolism Pulmonary Medical History: Reports: Hx Bronchitis - once in past per patient, Hx Pneumonia - history in past per patient Denies: Hx Asthma, Hx COPD, Hx Tuberculosis Neurological Medical History: Denies: Hx Cerebrovascular Accident, Hx Migraine, Hx Seizures Renal/ Medical History: Denies: Hx End Stage Renal Disease, Hx Kidney Stones, Hx Peritoneal Dialysis GI Medical History: Denies: Hx Cirrhosis, Hx Gastroesophageal Reflux Disease, Hx Ulcer Musculoskeltal Medical History: Denies Hx Arthritis, Denies Hx Multiple Sclerosis, Reports Hx Musculoskeletal Trauma Psychiatric Medical History: Reports: Hx Anxiety, Hx Depression - anxiety Denies: Hx Bipolar Disorder, Hx Schizophrenia Past Surgical History: Reports: Hx Cholecystectomy - 06/28/2015, Hx Vascular Surgery - port put in December,, Other - Port-A-Cath - Immunizations Immunizations up to date: Yes Hx Diphtheria, Pertussis, Tetanus Vaccination: Yes Review of Systems - Review of Systems Notes: Dictated Physical Exam - Vital signs Vitals: Temp Pulse Resp BP Pulse Ox 99.0 F 81 16 108/54 L 97 09/24/17 15:43 09/24/17 15:43 09/24/17 15:43 09/24/17 15:43 09/24/17 15:43 - Notes Notes: Dictated Course - Re-evaluation Re-evalutation: 09/24/17 23:04 Given IV fluids as well as IV Dilaudid Case was discussed with Dr. Beltre - Vital Signs Vital signs: Temp Pulse Resp BP Pulse Ox 98.7 F 85 18 100/52 L 97 09/24/17 21:45 09/24/17 21:45 09/24/17 21:45 09/24/17 21:45 09/24/17 21:45 - Laboratory Result Diagrams: 09/24/17 20:15 Laboratory results interpreted by me: 09/24/17 09/24/17 09:59 20:15 WBC 12.8 H RBC 2.42 L Hgb 8.9 L Hct 24.2 L MCV 100 H MCH 37.0 H MCHC 36.9 H RDW 14.5 H Eosinophils % 10.2 H Absolute Eosinophils 1.3 H Retic Count (auto) 4.93 H 5.51 H Absolute Retic 0.143 H 0.133 H Discharge - Discharge Clinical Impression: Chronic pain syndrome Sickle cell disease Qualifiers: Sickle-cell associated disorders: without crisis Qualified Code(s): D57.1 - Sickle-cell disease without crisis Condition: Fair Instructions: Oral Narcotic Medication ([facility]), Sickle Cell Crisis ([facility]) Referrals: JOIE MOREIRA MD [Primary Care Provider] - Follow up as needed
[2017-09-24 20:26] LABS: ABSOLUTE BASOPHILS # (AUTO) 0.1 10^3/uL (0.0-0.2); ABSOLUTE EOSINOPHILS # (AUTO) 1.3 10^3/uL (0.0-0.6); ABSOLUTE LYMPHOCYTES (AUTO) 4.2 10^3/uL (0.5-4.7); ABSOLUTE MONOCYTES (AUTO) 0.9 10^3/uL (0.1-1.4); ABSOLUTE NEUT (AUTO) 6.3 10^3/uL (1.7-8.2); ABSOLUTE RETICS # 0.133 10^6/uL (0.028-0.122); BASOPHILS % (AUTO) 0.5 % (0-2); EOSINOPHILS % (AUTO) 10.2 % (0-6); HEMATOCRIT 24.2 % (36.0-47.0); HEMOGLOBIN 8.9 g/dL (12.0-15.5); MEAN CORPUSCULAR HGB CONC 36.9 g/dL (32.0-36.0); MEAN CORPUSCULAR VOLUME 100 fl (80-97); MONOCYTES % (AUTO) 7.1 % (3-13); PLATELET COUNT 354 10^3/uL (150-450); RED BLOOD COUNT 2.42 10^6/uL (3.72-5.28); RED CELL DISTRIBUTION WIDTH 14.5 % (11.5-14.0); RETICULOCYTE COUNT (AUTO) 5.51 % (0.66-2.85); SEGMENTED NEUTROPHILS % (AUTO) 49.2 % (42-78); TOTAL CELLS COUNTED % (AUTO) 100 %; WHITE BLOOD COUNT 12.8 10^3/uL (4.0-10.5)
[2017-09-24] MEDS ORDERED: HYDROMORPHONE HCL 2 MG TABLET PO ONE (21:51)
[2017-09-24] MEDS ORDERED: HYDROMORPHONE HCL INJ/PF 2 MG/ML AMPULE IV ONE (21:57)
[2017-09-24 23:29] VITALS: BP 113/59
== END 2017-09-24 23:31 | disposition home or self-care (01) ==
LOC: ER 15:31
DX: D57.1 Sickle-cell disease without crisis (principal); G89.4 Chronic pain syndrome; M54.9 Dorsalgia, unspecified; I95.9 Hypotension, unspecified; Z79.899 Other long term (current) drug therapy
CPT/HCPCS: 36591; 99283; 96372; 96361; 96374; 36415; 85025; 85045; J3490; J1170; J7030

== ENCOUNTER 2017-09-28 15:35 | Inpatient (IN) | payer MEDICAID ==
--- NOTE | 2017-09-28 16:08 | ER Document Report ---
ED Medical Screen (RME) - General Chief Complaint: Sickle Cell Crisis Stated Complaint: BACK/CHEST PAIN Time Seen by Provider: 09/28/17 16:01 Mode of Arrival: Ambulatory Information source: Patient, [facility] Records Notes: 22-year-old female with history of sickle cell disease presents with complaints of chest pain back pain since Friday. Patient notes this is similar to her previous sickle cell pain. Patient has had multiple similar episodes requiring ED visits recently I have greeted and performed a rapid initial assessment of this patient. A comprehensive ED assessment and evaluation of the patient, analysis of test results and completion of the medical decision making process will be conducted by additional ED providers. PHYSICAL EXAMINATION: GENERAL: Well-appearing, well-nourished and in no acute distress. HEAD: Atraumatic, normocephalic. EYES: Pupils equal round extraocular movements intact, conjunctiva are normal. ENT: Nares patent NECK: Normal range of motion LUNGS: No respiratory distress Musculoskeletal: Normal range of motion NEUROLOGICAL: Normal speech, normal gait. PSYCH: Normal mood, normal affect. SKIN: Warm, Dry, normal turgor, no rashes or lesions noted. TRAVEL OUTSIDE OF THE [place] IN LAST 30 DAYS: No - Related Data Allergies/Adverse Reactions: morphine Allergy (Severe, Verified 09/28/17 15:58) RASH,SWELLING jacob peppers Adverse Reaction (Severe, Uncoded 09/28/17 15:58) throat closes Past Medical History - Social History Chew tobacco use (# tins/day): No Frequency of alcohol use: None Drug Abuse: None Family history: Reviewed & Not Pertinent, Other - Pt was adopted. Does not know family history - Past Medical History Cardiac Medical History: Reports: Hx DVT - RUE s/p port placement Denies: Hx Congestive Heart Failure, Hx Coronary Artery Disease, Hx Heart Attack, Hx Hypertension, Hx Pulmonary Embolism Pulmonary Medical History: Reports: Hx Bronchitis - once in past per patient, Hx Pneumonia - history in past per patient Denies: Hx Asthma, Hx COPD, Hx Tuberculosis Neurological Medical History: Denies: Hx Cerebrovascular Accident, Hx Migraine, Hx Seizures Renal/ Medical History: Denies: Hx End Stage Renal Disease, Hx Kidney Stones, Hx Peritoneal Dialysis GI Medical History: Denies: Hx Cirrhosis, Hx Gastroesophageal Reflux Disease, Hx Ulcer Musculoskeltal Medical History: Denies Hx Arthritis, Denies Hx Multiple Sclerosis, Reports Hx Musculoskeletal Trauma Psychiatric Medical History: Reports: Hx Anxiety, Hx Depression - anxiety Denies: Hx Bipolar Disorder, Hx Schizophrenia Past Surgical History: Reports: Hx Cholecystectomy - 06/28/2015, Hx Vascular Surgery - port put in December,, Other - Port-A-Cath - Immunizations Immunizations up to date: Yes Hx Diphtheria, Pertussis, Tetanus Vaccination: Yes History of Influenza Vaccine for 12/2016 - 05/2017 Season: Yes Influenza Administration Date for 12/2016 - 05/2017 Season: 03/11/18 Physical Exam - Vital signs Vitals: Temp Pulse Resp BP Pulse Ox 99.1 F 100 18 105/45 L 95 09/28/17 15:46 09/28/17 15:46 09/28/17 15:46 09/28/17 15:46 09/28/17 15:46 Course - Vital Signs Vital signs: Temp Pulse Resp BP Pulse Ox 99.1 F 100 18 105/45 L 95 09/28/17 15:46 09/28/17 15:46 09/28/17 15:46 09/28/17 15:46 09/28/17 15:46 Doctor's Discharge - Discharge Referrals: JOIE MOREIRA MD [Primary Care Provider] - Follow up as needed
[2017-09-28] MEDS ORDERED: NORMAL SALINE 1000 ML 1,000 ML IV ONE (16:42)
[2017-09-28] MEDS ORDERED: HYDROMORPHONE HCL INJ/PF 2 MG/ML AMPULE IV ONE ×2 (16:42→19:24)
--- NOTE | 2017-09-28 16:52 | ER Document Report ---
ED General - General Chief Complaint: Sickle Cell Crisis Stated Complaint: BACK/CHEST PAIN Time Seen by Provider: 09/28/17 16:01 Mode of Arrival: Ambulatory Information source: Patient Notes: 22-year-old female presents emergency department with complaints of a flareup of her sickle cell disease. Patient states that she was just seen here 2 days ago for similar. She is having the same symptoms. Patient complains of pain to her sternum and to her back. Patient states that she has been taking her oxycodone without relief of symptoms. She does complain of a dry cough. She denies any fever, chills, chest pain, shortness of breath, abdominal pain. Patient's director prospect is Dr. Moreira. TRAVEL OUTSIDE OF THE [place] IN LAST 30 DAYS: No - HPI Onset: This morning Onset/Duration: Sudden Quality of pain: Sharp, Stabbing Severity: Severe Pain Level: 5 Associated symptoms: Nonproductive cough Exacerbated by: Denies Relieved by: Denies Similar symptoms previously: Yes Recently seen / treated by doctor: Yes - Related Data Allergies/Adverse Reactions: morphine Allergy (Severe, Verified 09/28/17 15:58) RASH,SWELLING jacob peppers Adverse Reaction (Severe, Uncoded 09/28/17 15:58) throat closes Past Medical History - General Information source: Patient, [facility] Records - Social History Smoking Status: Never Smoker Chew tobacco use (# tins/day): No Frequency of alcohol use: None Drug Abuse: None Family History: Reviewed & Not Pertinent, Hypertension, Other - Sickle cell Patient has suicidal ideation: No Patient has homicidal ideation: No - Past Medical History Cardiac Medical History: Reports: Hx DVT - RUE s/p port placement Denies: Hx Congestive Heart Failure, Hx Coronary Artery Disease, Hx Heart Attack, Hx Hypertension, Hx Pulmonary Embolism Pulmonary Medical History: Reports: Hx Bronchitis - once in past per patient, Hx Pneumonia - history in past per patient Denies: Hx Asthma, Hx COPD, Hx Tuberculosis Neurological Medical History: Denies: Hx Cerebrovascular Accident, Hx Migraine, Hx Seizures Renal/ Medical History: Denies: Hx End Stage Renal Disease, Hx Kidney Stones, Hx Peritoneal Dialysis GI Medical History: Denies: Hx Cirrhosis, Hx Gastroesophageal Reflux Disease, Hx Ulcer Musculoskeltal Medical History: Denies Hx Arthritis, Denies Hx Multiple Sclerosis, Reports Hx Musculoskeletal Trauma Psychiatric Medical History: Reports: Hx Anxiety, Hx Depression - anxiety Denies: Hx Bipolar Disorder, Hx Schizophrenia Past Surgical History: Reports: Hx Cholecystectomy - 06/28/2015, Hx Vascular Surgery - port put in December,, Other - Port-A-Cath - Immunizations Immunizations up to date: Yes Hx Diphtheria, Pertussis, Tetanus Vaccination: Yes Review of Systems - Review of Systems Constitutional: No symptoms reported EENT: No symptoms reported Cardiovascular: No symptoms reported Respiratory: Cough Gastrointestinal: No symptoms reported Genitourinary: No symptoms reported Female Genitourinary: No symptoms reported Musculoskeletal: Back pain, Other - sternum pain Skin: No symptoms reported Neurological/Psychological: No symptoms reported -: Yes All other systems reviewed and negative Physical Exam - Vital signs Vitals: Temp Pulse Resp BP Pulse Ox 99.1 F 100 18 105/45 L 95 09/28/17 15:46 09/28/17 15:46 09/28/17 15:46 09/28/17 15:46 09/28/17 15:46 - Notes Notes: PHYSICAL EXAMINATION: GENERAL: Well-appearing, well-nourished and in no acute distress. HEAD: Atraumatic, normocephalic. EYES: Pupils equal round and reactive to light, extraocular movements intact, conjunctiva are normal. ENT: Nares patent, oropharynx clear without exudates. Moist mucous membranes. NECK: Normal range of motion, supple without lymphadenopathy LUNGS: Breath sounds clear to auscultation bilaterally and equal. No wheezes rales or rhonchi. HEART: Regular rate and rhythm without murmurs. Sternal tenderness to palpation. ABDOMEN: Soft, nontender, nondistended abdomen. No guarding, no rebound. No masses appreciated. Female : deferred Musculoskeletal: Normal range of motion, no pitting or edema. No cyanosis.Lumbar spine tenderness to palpation. NEUROLOGICAL: Cranial nerves grossly intact. Normal speech, normal gait. Normal sensory, motor exams PSYCH: Normal mood, normal affect. SKIN: Warm, Dry, normal turgor, no rashes or lesions noted. Course - Re-evaluation Re-evalutation: 09/28/17 19:59 Patient stating that she needs admission for her sickle cell. I contacted Dr. Fermin. She thinks it's reasonable to admit the patient as she's come to the ED 4 times in the last week. I discussed admission with the hospitalist. She's agreeable with admitting the patient. - Vital Signs Vital signs: Temp Pulse Resp BP Pulse Ox 99.1 F 100 21 H 93/44 L 100 09/28/17 15:46 09/28/17 15:46 09/28/17 19:03 09/28/17 19:03 09/28/17 19:03 - Laboratory Result Diagrams: 09/28/17 17:16 09/28/17 17:16 Laboratory results interpreted by me: 09/28/17 09/28/17 17:16 17:16 WBC 13.6 H RBC 2.31 L Hgb 7.7 L Hct 23.1 L MCV 100 H MCH 33.5 H RDW 15.3 H Absolute Neutrophils 9.0 H Retic Count (auto) 12.19 H Absolute Retic 0.282 H Sodium 147.3 H Chloride 111 H Total Bilirubin 9.9 H Direct Bilirubin 0.7 H - EKG Interpretation by Me Additional EKG results interpreted by me: 09/28/17 17:26 EKG: Ventricular rate 79, Perative 184, CARE saturation 90, QTc 441, normal sinus rhythm, no ischemic changes. Discharge - Discharge Clinical Impression: Sickle cell crisis Condition: Stable Disposition: ADMITTED OBSERVATION Admitting Provider: Hospitalist Unit Admitted: ICU Referrals: JOIE MOREIRA MD [Primary Care Provider] - Follow up as needed
--- NOTE | 2017-09-28 17:12 | RADIOLOGY REPORT (SQ) ---
EXAM DESCRIPTION: CHEST SINGLE VIEW COMPLETED DATE/TIME: 09/28/2017 5:02 pm REASON FOR STUDY: cough, pain. History of sickle cell disease. COMPARISON: Chest x-ray 09/15/2017. EXAM PARAMETERS: NUMBER OF VIEWS: One view. TECHNIQUE: Single frontal radiographic view of the chest acquired. RADIATION DOSE: NA LIMITATIONS: Patient positioning. FINDINGS: LUNGS AND PLEURA: The right lung apex is partially excluded from the [id number]. No c onsolidation, sizeable pneumothorax or pleural effusion. MEDIASTINUM AND HILAR STRUCTURES: No masses. Contour normal. HEART AND VASCULAR STRUCTURES: Heart normal in size. Normal vasculature. BONES: H-shaped vertebral bodies, probably representing the sequela of sickle cell disease. HARDWARE: Right-sided Port-A-Cath with the tip overlying the region of the SVC. Surgical clips are n oted in the right upper quadrant. IMPRESSION: No acute radiographic finding in the chest. TECHNICAL DOCUMENTATION: JOB ID: [id number] 2010 [employer]- All Rights Reserved Reading location - IP/workstation name: [email or web address]
[2017-09-28 17:33] LABS: ABSOLUTE BASOPHILS # (AUTO) 0.2 10^3/uL (0.0-0.2); ABSOLUTE EOSINOPHILS # (AUTO) 0.3 10^3/uL (0.0-0.6); ABSOLUTE LYMPHOCYTES (AUTO) 2.8 10^3/uL (0.5-4.7); ABSOLUTE MONOCYTES (AUTO) 1.3 10^3/uL (0.1-1.4); ABSOLUTE RETICS # 0.282 10^6/uL (0.028-0.122); BASOPHILS % (AUTO) 1.1 % (0-2); HEMATOCRIT 23.1 % (36.0-47.0); LYMPHOCYTES % (AUTO) 20.8 % (13-45); MEAN CORPUSCULAR VOLUME 100 fl (80-97); MONOCYTES % (AUTO) 9.6 % (3-13); PLATELET COUNT 339 10^3/uL (150-450); RED BLOOD COUNT 2.31 10^6/uL (3.72-5.28); RED CELL DISTRIBUTION WIDTH 15.3 % (11.5-14.0); RETICULOCYTE COUNT (AUTO) 12.19 % (0.66-2.85); SEGMENTED NEUTROPHILS % (AUTO) 66.5 % (42-78); TOTAL CELLS COUNTED % (AUTO) 100 %; WHITE BLOOD COUNT 13.6 10^3/uL (4.0-10.5)
[2017-09-28 17:43] LABS: ALANINE AMINOTRANSFERASE 15 U/L (9-52); ALBUMIN 4.3 g/dL (3.5-5.0); ALKALINE PHOSPHATASE 57 U/L (38-126); ANION GAP 12 (5-19); ASPARTATE AMINO TRANSFERASE 29 U/L (14-36); BILIRUBIN,DIRECT 0.7 mg/dL (0.0-0.4); BILIRUBIN,TOTAL 9.9 mg/dL (0.2-1.3); BLOOD UREA NITROGEN 7 mg/dL (7-20); CALCIUM 9.1 mg/dL (8.4-10.2); CARBON DIOXIDE 24 mmol/L (22-30); CHLORIDE 111 mmol/L (98-107); GLUCOSE 86 mg/dL (75-110); POTASSIUM 3.7 mmol/L (3.6-5.0); SODIUM 147.3 mmol/L (137-145); TOTAL PROTEIN 7.5 g/dL (6.3-8.2)
[2017-09-28 17:52] LABS: MEAN CORPUSCULAR HEMOGLOBIN 33.5 pg (27.0-33.4); MEAN CORPUSCULAR HGB CONC 33.5 g/dL (32.0-36.0)
[2017-09-28 17:53] LABS: HEMOGLOBIN 7.7 g/dL (12.0-15.5)
--- NOTE | 2017-09-28 19:07 | EKG REPORT ---
SEVERITY:- NORMAL ECG - SINUS RHYTHM : Confirmed by: Mary Vega MD 28-Sep-2017 19:07:15
[2017-09-28] MEDS ORDERED: NORMAL SALINE 1000 ML 1,000 ML IV PRN (21:19)
[2017-09-28 22:28] LABS: ALANINE AMINOTRANSFERASE 19 U/L (9-52); ALBUMIN 3.4 g/dL (3.5-5.0); ALKALINE PHOSPHATASE 53 U/L (38-126); ASPARTATE AMINO TRANSFERASE 24 U/L (14-36); BILIRUBIN,DIRECT 0.2 mg/dL (0.0-0.4); BILIRUBIN,TOTAL 7.8 mg/dL (0.2-1.3); LIPASE 48.3 U/L (23-300); TOTAL PROTEIN 6.1 g/dL (6.3-8.2)
[2017-09-28 22:30] LABS: HEMATOCRIT 21.4 % (36.0-47.0); MEAN CORPUSCULAR HEMOGLOBIN 36.7 pg (27.0-33.4); MEAN CORPUSCULAR HGB CONC 36.7 g/dL (32.0-36.0); MEAN CORPUSCULAR VOLUME 100 fl (80-97); PLATELET COUNT 329 10^3/uL (150-450); RED BLOOD COUNT 2.14 10^6/uL (3.72-5.28)
--- NOTE | 2017-09-28 22:34 | PDOC H&P ---
History of Present Illness Admission Date/PCP: 09/28/17 20:04 JOIE BAUM MD Patient complains of: Back pain abdominal pain and chest pain. History of Present Illness: CASSANDRA MIDDLETON is a 22 year old woman with sickle cell disease. She is followed by Dr. Baum. She reports that last Friday secondary to back pain she was seen in the ER. She was treated and then sent home. The next day she had an appointment with Dr. Baum and so she went to that appointment. Her blood pressure was low during the appointment and so was sent to the ED from the office. Patient was treated in the ER and then sent home. She states that she was continuing to have back pain throughout Friday and . On Friday she developed chest pain. She hoped to go to Dr. Baum's office but he was closed already, since Friday she has been having chest pain and she became very concerned because she has had an acute chest crisis in the past. Today she came into the ER secondary to her inability to control the pain with her strategies and medications at home. She is feeling some better with Dilaudid here. She is breathing without difficulty. She does not have a cough or any wheezing. Currently she is not having abdominal pain. She has diffuse chest discomfort. No fevers or chills. No bleeding. She is being admitted to the hospitalist service with vaso-occlusive pain most likely, in the setting of sickle cell disease. She is hemodynamically stable although has had low systolic blood pressure in the ER. On my evaluation her blood pressure was showing a map of 67. Past Medical History Cardiac Medical History: Reports: DVT - RUE s/p port placement Denies: Congestive Heart Failure, Coronary Artery Disease, Myocardial Infarction, Hypertension, Pulmonary Embolism Pulmonary Medical History: Reports: Bronchitis - once in past per patient, Pneumonia - history in past per patient, Other - Acute chest crisis in sickle cell disease Denies: Asthma, Chronic Obstructive Pulmonary Disease (COPD), Tuberculosis EENT Medical History: Reports: Other - Patient wears glasses, she also is hard of hearing and has hearing aids Neurological Medical History: Denies: Ischemic CVA, Migraine, Seizures Endocrine Medical History: Denies: Diabetes Mellitus Type 1, Diabetes Mellitus Type 2, Hyperthyroidism, Hypothyroidism Renal/ Medical History: Denies: Chronic Kidney Disease, End Stage Renal Disease Malignancy Medical History: Denies: None GI Medical History: Denies: Cirrhosis, Gastroesophageal Reflux Disease, Peptic Ulcer Disease Musculoskeltal Medical History: Denies: Arthritis Skin Medical History: Denies: None Psychiatric Medical History: Reports: Depression - anxiety Denies: Bipolar Disorder, Substance Abuse, Tobacco Dependency Hematology: Reports: Anemia - Sickle cell, Sickle Cell Disease Denies: Bleeding Tendencies Infectious Medical History: Denies: None Past Surgical History Past Surgical History: Reports: Cholecystectomy - 06/28/2015, Vascular Surgery - port put in December,, Other - Port-A-Cath in right upper chest Social History Information Source: Patient Lives with: Family Smoking Status: Never Smoker Frequency of Alcohol Use: None Hx Recreational Drug Use: No Drugs: None Hx Prescription Drug Abuse: No Past Social History Note: Patient currently lives with her sister and her neck U. She has recently worked at [employer]. She is currently applying for jobs, trying hard to get work but feels like her medical problems are keeping her from getting a good job. She reports that she does not know her biologic parents. Her adopted mother lives [facility] and her adopted father lives in [place]. - Advance Directive Resuscitation Status: Full Code Surrogate healthcare decision maker:: Sister Jerri Kc, phone [phone] Family History Family History: Other - Sickle cell Parental Family History Reviewed: Yes - Patient does not know anything about her biologic parents Children Family History Reviewed: NA - She does not have children Sibling(s) Family History Reviewed.: Yes - Her sister has asthma Medication/Allergy Home Medications: Aripiprazole [Abilify 10 mg Tablet] 10 mg PO QHS 05/26/17 Escitalopram Oxalate [Lexapro 10 mg Tablet] 10 mg PO QHS 05/26/17 Hydroxyurea [Hydrea 500 mg Capsule] 500 mg PO BID 05/26/17 Hydroxyzine Pamoate [Vistaril 25 mg Capsule] 25 mg PO TID 05/26/17 Rivaroxaban [Xarelto] 20 mg PO DAILY 05/26/17 Zolpidem Tartrate [Ambien] 10 mg PO QHS 05/26/17 Albuterol Sulfate [Proair HFA Inhalation Aerosol 8.5 gm MDI] 1 puff IH Q4 PRN # 1 mdi 06/11/17 Oxycodone HCl [Oxycodone HCl] 1 tab PO Q6 PRN 08/22/17 Allergies/Adverse Reactions: morphine Allergy (Severe, Verified 09/28/17 15:58) RASH,SWELLING jacob peppers Adverse Reaction (Severe, Uncoded 09/28/17 15:58) throat closes Review of Systems Constitutional: PRESENT: anorexia, fatigue. ABSENT: fever(s), headache(s) Eyes: ABSENT: visual disturbances Ears: ABSENT: hearing changes Nose, Mouth, and Throat: ABSENT: headache(s) Cardiovascular: PRESENT: chest pain. ABSENT: dyspnea on exertion, edema, palpitations Respiratory: ABSENT: cough, dyspnea, hemoptysis, sputum Gastrointestinal: ABSENT: abdominal pain, diarrhea, nausea, vomiting Genitourinary: ABSENT: difficulty urinating, hematuria Musculoskeletal: PRESENT: back pain. ABSENT: muscle weakness Integumentary: ABSENT: diaphoresis, erythema, lesions, pruritus Neurological: ABSENT: confusion, dizziness, syncope Psychiatric: PRESENT: anxiety, depression Endocrine: ABSENT: cold intolerance, heat intolerance Hematologic/Lymphatic: ABSENT: easy bleeding, easy bruising Allergic/Immunologic: ABSENT: seasonal rhinorrhea Physical Exam Vital Signs: Temp Pulse Resp BP Pulse Ox 99.1 F 100 16 103/62 100 09/28/17 15:46 09/28/17 15:46 09/28/17 20:30 09/28/17 20:30 09/28/17 20:30 General appearance: PRESENT: no acute distress, cooperative, well-developed, well-nourished Head exam: PRESENT: atraumatic, normocephalic Eye exam: PRESENT: conjunctiva pink, EOMI, PERRLA, scleral icterus. ABSENT: periorbital swelling Ear exam: PRESENT: normal external ear exam Mouth exam: PRESENT: moist, neck supple, tongue midline Teeth exam: ABSENT: poor dentation Neck exam: ABSENT: lymphadenopathy, tenderness Respiratory exam: PRESENT: clear to auscultation samaria, unlabored. ABSENT: accessory muscle use, chest wall tenderness, crackles, decreased breath sounds, rales, retraction, tachypnea, wheezes Cardiovascular exam: PRESENT: tachycardia, other - Split S2. ABSENT: diastolic murmur, systolic murmur Pulses: PRESENT: normal radial pulses, normal dorsalis pedis pul GI/Abdominal exam: PRESENT: normal bowel sounds. ABSENT: ascites, diminished bowel sounds, distended, guarding, organolmegaly, soft, tenderness Extremities exam: ABSENT: pedal edema, tenderness Musculoskeletal exam: PRESENT: normal inspection. ABSENT: deformity Neurological exam: PRESENT: alert, awake, oriented to person, oriented to place , oriented to situation, CN II-XII grossly intact Psychiatric exam: PRESENT: appropriate affect. ABSENT: anxious Skin exam: PRESENT: dry, intact, warm. ABSENT: pallor, rash Results Impressions: Chest X-Ray 09/28/17 16:42 IMPRESSION: No acute radiographic finding in the chest. Assessment & Plan - Diagnosis (1) Chest pain Qualifiers: Chest pain type: other chest pain Qualified Code(s): R07.89 - Other chest pain; R07.8 - Other chest pain Is this a current diagnosis for this admission?: Yes Plan: Patient has sickle cell disease. She has had an acute chest crisis in the past but does not seem to meet criteria for that currently. She is not in respiratory distress. She is not hypoxemic. She is not coughing. This is a nondescript generalized chest discomfort, not pleuritic. For now will treat the patient with IV opioids for pain and also will fluid hydrate, monitoring electrolytes in particular sodium. Will order troponins. Telemetry has been ordered. (2) Elevated bilirubin Is this a current diagnosis for this admission?: Yes Plan: Most likely related to patient's sickle cell disease. Currently she does not have right upper quadrant pain or hepatomegaly. Bilirubin is elevated at 9. Will follow her LFTs closely. Currently AST and ALT are normal. Fluid hydrate and treat her pain and monitor her abdominal exam closely. (3) Sickle cell anemia with pain Is this a current diagnosis for this admission?: Yes Plan: We will continue with fluid hydration, normal saline for now monitoring sodium and will transition to half normal saline or other fluid if indicated. Patient has not been eating well but she is able to stay hydrated so I have encouraged her to drink as much as she can, she is currently drinking water and zuleima deyanira. We are treating her pain in the abdomen and back with Dilaudid. She has an adverse reaction to morphine which is hives. She states that she has itching with all opioids but if treated with Benadryl she can tolerate the opioids. I started her on Dilaudid 1 mg IV every 4 hours as needed pain 3-5. I have also started her on Benadryl 25 mg p.o. every 4 hours as needed itching. Also will continue her hydroxyurea. Hematology has been consulted. 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 She also has reticulocytosis. Will follow both of these. Will consider transfusion if she drops her hemoglobin. She is currently without hepatomegaly or splenomegaly. (5) DVT (deep venous thrombosis) Qualifiers: DVT location: lower extremity Chronicity: chronic Laterality: right Is this a current diagnosis for this admission?: Yes Plan: Patient is on Xarelto as an outpatient. There is no sign of active bleeding externally but secondary to her back pain and the drop in hemoglobin, in general nonspecific nature of her back and abdominal pain that she has been having over the past few days I am going to consider a CT scan of her abdomen and pelvis if the hemoglobin drops again. We will continue her Xarelto if there is no sign of bleeding. (6) Depression with anxiety Is this a current diagnosis for this admission?: Yes Plan: Patient is on Lexapro, Abilify, Vistaril. Will hold the Vistaril since she is on Benadryl. Will start her Lexapro and Abilify once we have those doses. - Time Time Spent: 50 to 70 Minutes Medications reviewed and adjusted accordingly: Yes - Inpatient Certification Based on my medical assessment, after consideration of the patient's comorbidities, presenting symptoms, or acuity I expect that the services needed warrant INPATIENT care.: Yes I certify that my determination is in accordance with my understanding of Medicare's requirements for reasonable and necessary INPATIENT services [42 CFR 412.3e].: Yes Medical Necessity: Need Close Monitoring Due to Risk of Patient Decompensation, Need for Pain Control, Risk of Complication if Not Cared For in Hospital
[2017-09-28 22:39] LABS: HEMOGLOBIN 7.9 g/dL (12.0-15.5)
[2017-09-28 23:16] LABS: BASOPHILS % (MANUAL) 0 % (0-2); EOSINOPHILS % (MANUAL) 3 % (0-6); LYMPHOCYTES % (MANUAL) 35 % (13-45); MONOCYTES % (MANUAL) 4 % (3-13); NUCLEATED RED BLOOD CELLS 6 /100 WBC (0); SEGMENTED NEUTROPHILS % (MAN) 58 % (42-78); TOTAL CELLS COUNTED 100
[2017-09-28 23:19] LABS: HYPOCHROMASIA 2+; POLYCHROMASIA 1+
[2017-09-28 23:20] LABS: ANISOCYTOSIS 1+; PLATELET COMMENT ADEQUATE; SICKLE RED CELLS 2+; TARGET CELLS 2+
[2017-09-28 23:23] LABS: WHITE BLOOD COUNT 13.9 10^3/uL (4.0-10.5)
[2017-09-28] MEDS: HYDROMORPHONE HCL INJ/PF 2 MG/ML AMPULE IV PRN (23:52)
[2017-09-28] MEDS: DIPHENHYDRAMINE HCL 25 MG CAPSULE PO PRN (23:54)
[2017-09-29] MEDS ORDERED: RIVAROXABAN 10 MG TABLET PO ONE (01:00)
[2017-09-29 01:27] LABS: AMORPHOUS SEDIMENT,URINE TRACE /HPF; APPEARANCE,URINE SLIGHTLY-CLOUDY; BILIRUBIN,URINE NEGATIVE (NEGATIVE); COLOR,URINE YELLOW; GLUCOSE, URINE NEGATIVE (NEGATIVE); KETONES,URINE NEGATIVE (NEGATIVE); LEUKOCYTE ESTERASE,URINE TRACE (NEGATIVE); NITRITE,URINE NEGATIVE (NEGATIVE); PROTEIN,URINE NEGATIVE (NEGATIVE); URINE SPECIFIC GRAVITY 1.011
[2017-09-29 04:05] LABS: RED BLOOD COUNT 2.07 10^6/uL (3.72-5.28)
[2017-09-29] MEDS: DIPHENHYDRAMINE HCL 25 MG CAPSULE PO PRN ×2 (04:12→21:30)
[2017-09-29] MEDS: HYDROMORPHONE HCL INJ/PF 2 MG/ML AMPULE IV PRN ×5 (04:12→21:37)
[2017-09-29 04:37] LABS: CALCIUM 8.4 mg/dL (8.4-10.2); GLUCOSE 95 mg/dL (75-110)
[2017-09-29 04:38] LABS: ANION GAP 7 (5-19); BLOOD UREA NITROGEN 7 mg/dL (7-20); CARBON DIOXIDE 27 mmol/L (22-30); CHLORIDE 111 mmol/L (98-107); POTASSIUM 3.3 mmol/L (3.6-5.0); SODIUM 145.3 mmol/L (137-145)
[2017-09-29 04:40] LABS: HEMOGLOBIN 7.6 g/dL (12.0-15.5)
[2017-09-29 04:43] LABS: HEMATOCRIT 20.6 % (36.0-47.0); WHITE BLOOD COUNT 14.7 10^3/uL (4.0-10.5)
[2017-09-29 04:44] LABS: MEAN CORPUSCULAR HEMOGLOBIN 36.6 pg (27.0-33.4); MEAN CORPUSCULAR VOLUME 100 fl (80-97); PLATELET COUNT 305 10^3/uL (150-450); RED CELL DISTRIBUTION WIDTH 15.4 % (11.5-14.0); RETICULOCYTE COUNT (AUTO) 12.12 % (0.66-2.85)
[2017-09-29 04:56] LABS: MEAN CORPUSCULAR HGB CONC 36.7 g/dL (32.0-36.0)
[2017-09-29] MEDS: POTASSIUM CHLORIDE 20 MEQ/15 ML UDCUP PO SCH ×2 (05:19→07:33)
[2017-09-29] MEDS: POTASSI CL 20 MEQ/1/2NS 1L 20 MEQ/1,000 ML RTUINJ IV PRN ×3 (05:19→19:31)
--- NOTE | 2017-09-29 06:53 | EKG REPORT ---
SEVERITY:- ABNORMAL ECG - SINUS RHYTHM FIRST DEGREE AV BLOCK BORDERLINE T ABNORMALITIES, INFERIOR LEADS : Confirmed by: Mary Vega MD 29-Sep-2017 06:52:34
--- NOTE | 2017-09-29 08:35 | PDOC CONSULTATION ---
Consultation Consult Date: 09/29/17 Consult reason:: Hematology/Oncology consultation was requested for patient in Sickle Cell Pain crisis History of Present Illness Admission Date/PCP: 09/28/17 21:29 JOIE MOREIRA MD History of Present Illness: CASSANDRA MIDDLETON is a 22 year old female well known to our service with longstanding Sickle Cell Anemia. She usually requires admission for pain crisis about every 6-8 weeks. She has presented to our office or the the ED several times in the past 2 weeks. This time, she states that she has had worsening chest pain. She was admitted and started on fluids, O2 and Dilaudid IV. This morning, she states that the pain is getting a bit better. It has been well controlled through the night on Dilaudid 1 mg IV q 4 hours PRN. She denies any other new complaints today. Past Medical History Cardiac Medical History: Reports: DVT - RUE s/p port placement Denies: Congestive Heart Failure, Coronary Artery Disease, Myocardial Infarction, Hypertension, Pulmonary Embolism Pulmonary Medical History: Reports: Bronchitis - once in past per patient, Pneumonia - history in past per patient, Other - Acute chest crisis in sickle cell disease Denies: Asthma, Chronic Obstructive Pulmonary Disease (COPD), Tuberculosis EENT Medical History: Reports: Other - Patient wears glasses, she also is hard of hearing and has hearing aids Neurological Medical History: Denies: Ischemic CVA, Migraine, Seizures Endocrine Medical History: Denies: Diabetes Mellitus Type 1, Diabetes Mellitus Type 2, Hyperthyroidism, Hypothyroidism Renal/ Medical History: Denies: Chronic Kidney Disease, End Stage Renal Disease Malignancy Medical History: Denies: None GI Medical History: Denies: Cirrhosis, Gastroesophageal Reflux Disease, Peptic Ulcer Disease Musculoskeltal Medical History: Denies: Arthritis Skin Medical History: Denies: None Psychiatric Medical History: Reports: Depression - anxiety Denies: Bipolar Disorder, Substance Abuse, Tobacco Dependency Hematology: Reports: Anemia - Sickle cell, Sickle Cell Disease, Other - Patient wears glasses, she also is hard of hearing and has hearing aids Denies: Bleeding Tendencies Infectious Medical History: Denies: None Past Surgical History Past Surgical History: Reports: Cholecystectomy - 06/28/2015, Vascular Surgery - port put in December,, Other - Port-A-Cath in right upper chest Social History Lives with: Family Smoking Status: Never Smoker Frequency of Alcohol Use: None Hx Recreational Drug Use: No Drugs: None Hx Prescription Drug Abuse: No - Advance Directive Resuscitation Status: Full Code Family History Family History: Other - Sickle cell Parental Family History Reviewed: Yes - Sickle Cell Trait Children Family History Reviewed: No Sibling(s) Family History Reviewed.: Yes Medication/Allergy Home Medications: Aripiprazole [Abilify 10 mg Tablet] 10 mg PO QHS 05/26/17 Escitalopram Oxalate [Lexapro 10 mg Tablet] 10 mg PO QHS 05/26/17 Hydroxyurea [Hydrea 500 mg Capsule] 500 mg PO BID 05/26/17 Hydroxyzine Pamoate [Vistaril 25 mg Capsule] 25 mg PO TIDP PRN 05/26/17 Rivaroxaban [Xarelto] 20 mg PO DAILY 05/26/17 Zolpidem Tartrate [Ambien] 10 mg PO QHS 05/26/17 Albuterol Sulfate [Proair HFA Inhalation Aerosol 8.5 gm MDI] 1 puff IH Q4 PRN # 1 mdi 06/11/17 Oxycodone HCl [Oxycodone HCl] 1 tab PO Q6 PRN 08/22/17 Allergies/Adverse Reactions: morphine Allergy (Severe, Verified 09/28/17 22:58) RASH,SWELLING jacob peppers Adverse Reaction (Severe, Uncoded 09/28/17 22:58) throat closes Review of Systems Constitutional: PRESENT: fatigue. ABSENT: fever(s), headache(s) Eyes: ABSENT: visual disturbances Ears: ABSENT: hearing changes Nose, Mouth, and Throat: ABSENT: sore throat Cardiovascular: PRESENT: chest pain. ABSENT: palpitations Respiratory: ABSENT: dyspnea Gastrointestinal: PRESENT: nausea. ABSENT: constipation, diarrhea Genitourinary: ABSENT: difficulty urinating Musculoskeletal: PRESENT: back pain, other - Joint pain Neurological: ABSENT: frequent falls, memory loss Hematologic/Lymphatic: ABSENT: easy bleeding Physical Exam Vital Signs: Temp Pulse Resp BP Pulse Ox 98.0 F 93 16 95/40 L 97 09/29/17 03:40 09/29/17 07:00 09/29/17 03:40 09/29/17 03:40 09/29/17 03:40 Intake & Output 09/28/17 09/29/17 09/30/17 06:59 06:59 06:59 Intake Total 1579 Output Total 950 Balance 629 Weight 60.9 kg General appearance: PRESENT: no acute distress, well-developed, well-nourished Exam: 22 year old female. Head exam: PRESENT: atraumatic, normocephalic Eye exam: PRESENT: PERRLA Mouth exam: PRESENT: tongue midline Teeth exam: ABSENT: poor dentation Neck exam: ABSENT: lymphadenopathy, tenderness Respiratory exam: PRESENT: clear to auscultation samaria, unlabored Cardiovascular exam: PRESENT: RRR. ABSENT: systolic murmur Pulses: PRESENT: normal dorsalis pedis pul Vascular exam: ABSENT: pallor GI/Abdominal exam: PRESENT: soft. ABSENT: organolmegaly, tenderness Extremities exam: ABSENT: joint swelling, pedal edema Musculoskeletal exam: PRESENT: normal inspection Neurological exam: PRESENT: alert, awake, other - Appears quite comfortable. Moves all 4 extremities without difficulty Psychiatric exam: PRESENT: appropriate affect Focused psych exam: ABSENT: psychomotor agitation, restlessness Skin exam: PRESENT: normal color Results Laboratory Results: 09/29/17 03:22 09/29/17 03:30 09/28/17 09/28/17 09/29/17 21:56 21:56 01:00 WBC 13.9 H RBC 2.14 L Hgb 7.9 L Hct 21.4 L MCV 100 H MCH 36.7 H MCHC 36.7 H RDW 16.0 H Plt Count 329 Seg Neutrophils % Not Reportable Lymphocytes % Not Reportable Monocytes % Not Reportable Eosinophils % Not Reportable Basophils % Not Reportable Absolute Neutrophils Not Reportable Absolute Lymphocytes Not Reportable Absolute Monocytes Not Reportable Absolute Eosinophils Not Reportable Absolute Basophils Not Reportable Retic Count (auto) Absolute Retic Sodium Potassium Chloride Carbon Dioxide Anion Gap BUN Creatinine Est GFR ( Amer) Est GFR (Non-Af Amer) Glucose Calcium Total Bilirubin 7.8 H AST 24 ALT 19 Alkaline Phosphatase 53 Total Protein 6.1 L Albumin 3.4 L Lipase 48.3 Urine Color YELLOW Urine Appearance SLIGHTLY-CLOUDY Urine pH 6.0 Ur Specific [place] 1.011 Urine Protein NEGATIVE Urine Glucose (UA) NEGATIVE Urine Ketones NEGATIVE Urine Blood SMALL H Urine Nitrite NEGATIVE Ur Leukocyte Esterase TRACE H Urine WBC (Auto) 3 09/29/17 09/29/17 03:22 03:30 WBC 14.7 H RBC 2.07 L Hgb 7.6 L Hct 20.6 L MCV 100 H MCH 36.6 H MCHC 36.7 H RDW 15.4 H Plt Count 305 Seg Neutrophils % Lymphocytes % Monocytes % Eosinophils % Basophils % Absolute Neutrophils Absolute Lymphocytes Absolute Monocytes Absolute Eosinophils Absolute Basophils Retic Count (auto) 12.12 H Absolute Retic 0.250 H Sodium 145.3 H Potassium 3.3 L Chloride 111 H Carbon Dioxide 27 Anion Gap 7 BUN 7 Creatinine 0.51 L Est GFR ( Amer) > 60 Est GFR (Non-Af Amer) > 60 Glucose 95 Calcium 8.4 Total Bilirubin AST ALT Alkaline Phosphatase Total Protein Albumin Lipase Urine Color Urine Appearance Urine pH Ur Specific [place] Urine Protein Urine Glucose (UA) Urine Ketones Urine Blood Urine Nitrite Ur Leukocyte Esterase Urine WBC (Auto) 09/28/17 09/29/17 09/29/17 21:56 03:22 03:30 Troponin I < 0.012 < 0.012 < 0.012 Impressions: Chest X-Ray 09/28/17 16:42 IMPRESSION: No acute radiographic finding in the chest. Assessment & Plan - Diagnosis (1) Sickle cell anemia with pain Is this a current diagnosis for this admission?: Yes Plan: Patient is in acute pain crisis, but appears very comfortable on current medications. Continue 1/2 NS, O2, and Dilaudid PRN. I have encouraged her to wear her O2 and walk in hallway when able. I will continue to monitor her HGB, LDH, and Bili. Nurses report some irregular heart rhythm. I agree with Cardiology consult. I would not transfuse her at this point, but if cardiology feels she is having cardiac ischemia, then consider transfer to [facility] for pharesis and transfusions. (2) DVT (deep venous thrombosis) Qualifiers: DVT location: lower extremity Chronicity: chronic Laterality: right Is this a current diagnosis for this admission?: Yes Plan: She has a history of DVT and is maintained on Xarelto. I agree with continuing this medication. There is currently no evidence of bleeding. - Plan Summary Plan Summary: Please feel free to call me directly with any questions or concerns.
[2017-09-29] MEDS: HYDROXYUREA 500 MG CAPSULE PO SCH ×2 (09:35→17:50)
[2017-09-29] MEDS: MAGNESIUM OXIDE 400 MG TABLET PO SCH (17:50)
--- NOTE | 2017-09-29 18:03 | PDOC PROGRESS REPORT ---
Subjective Progress Note for:: 09/29/17 Subjective:: The patient is a 22-year-old female with sickle cell disease. Past medical history includes DVT of the right upper extremity after port placement on Xarelto Acute chest syndrome Anxiety and depression She presented to the emergency room with chest discomfort and was started on IV fluids and analgesics. Hematology consultation has been requested. She was noted to have some episodes of transient second-degree type I AV block overnight. EKG shows first-degree heart block. She is asymptomatic. The plan is to transfer her to [facility] due to concerns for possible AV node ischemia. She has been accepted by Dr. Adler. Her case was discussed with Dr. Vega and Dr. Russ. Reason For Visit: VASO OCCLUSIVE PAIN IN SICKLE CELL DISEASE Physical Exam Vital Signs: Temp Pulse Resp BP Pulse Ox 98.0 F 93 16 95/40 L 97 09/29/17 03:40 09/29/17 07:00 09/29/17 03:40 09/29/17 03:40 09/29/17 03:40 Intake & Output 09/28/17 09/29/17 09/30/17 06:59 06:59 06:59 Intake Total 1579 Output Total 950 Balance 629 Weight 60.9 kg General appearance: PRESENT: mild distress Head exam: PRESENT: normocephalic Ear exam: PRESENT: normal external ear exam Mouth exam: PRESENT: moist Neck exam: ABSENT: tracheal deviation Respiratory exam: PRESENT: symmetrical, unlabored. ABSENT: crackles, wheezes Cardiovascular exam: PRESENT: RRR GI/Abdominal exam: PRESENT: normal bowel sounds, soft. ABSENT: tenderness Rectal exam: PRESENT: deferred Extremities exam: ABSENT: pedal edema Neurological exam: PRESENT: alert, awake, oriented to person, oriented to place , oriented to time, oriented to situation Psychiatric exam: PRESENT: anxious Results Laboratory Results: 09/29/17 03:22 09/29/17 03:30 09/28/17 09/28/17 09/29/17 21:56 21:56 01:00 WBC 13.9 H RBC 2.14 L Hgb 7.9 L Hct 21.4 L MCV 100 H MCH 36.7 H MCHC 36.7 H RDW 16.0 H Plt Count 329 Seg Neutrophils % Not Reportable Lymphocytes % Not Reportable Monocytes % Not Reportable Eosinophils % Not Reportable Basophils % Not Reportable Absolute Neutrophils Not Reportable Absolute Lymphocytes Not Reportable Absolute Monocytes Not Reportable Absolute Eosinophils Not Reportable Absolute Basophils Not Reportable Retic Count (auto) Absolute Retic Sodium Potassium Chloride Carbon Dioxide Anion Gap BUN Creatinine Est GFR ( Amer) Est GFR (Non-Af Amer) Glucose Calcium Total Bilirubin 7.8 H AST 24 ALT 19 Alkaline Phosphatase 53 Total Protein 6.1 L Albumin 3.4 L Lipase 48.3 Urine Color YELLOW Urine Appearance SLIGHTLY-CLOUDY Urine pH 6.0 Ur Specific [place] 1.011 Urine Protein NEGATIVE Urine Glucose (UA) NEGATIVE Urine Ketones NEGATIVE Urine Blood SMALL H Urine Nitrite NEGATIVE Ur Leukocyte Esterase TRACE H Urine WBC (Auto) 3 09/29/17 09/29/17 03:22 03:30 WBC 14.7 H RBC 2.07 L Hgb 7.6 L Hct 20.6 L MCV 100 H MCH 36.6 H MCHC 36.7 H RDW 15.4 H Plt Count 305 Seg Neutrophils % Lymphocytes % Monocytes % Eosinophils % Basophils % Absolute Neutrophils Absolute Lymphocytes Absolute Monocytes Absolute Eosinophils Absolute Basophils Retic Count (auto) 12.12 H Absolute Retic 0.250 H Sodium 145.3 H Potassium 3.3 L Chloride 111 H Carbon Dioxide 27 Anion Gap 7 BUN 7 Creatinine 0.51 L Est GFR ( Amer) > 60 Est GFR (Non-Af Amer) > 60 Glucose 95 Calcium 8.4 Total Bilirubin AST ALT Alkaline Phosphatase Total Protein Albumin Lipase Urine Color Urine Appearance Urine pH Ur Specific [place] Urine Protein Urine Glucose (UA) Urine Ketones Urine Blood Urine Nitrite Ur Leukocyte Esterase Urine WBC (Auto) 09/28/17 09/29/17 09/29/17 21:56 03:22 03:30 Troponin I < 0.012 < 0.012 < 0.012 Impressions: Chest X-Ray 09/28/17 16:42 IMPRESSION: No acute radiographic finding in the chest. Assessment & Plan - Diagnosis (1) Chest pain Qualifiers: Chest pain type: other chest pain Qualified Code(s): R07.89 - Other chest pain; R07.8 - Other chest pain Is this a current diagnosis for this admission?: Yes Plan: Due to acute [place] pain crisis. Negative trop, likely secondary to SCD, no evidence of acute chest syndrome. (2) Depression with anxiety Is this a current diagnosis for this admission?: Yes Plan: Continue outpatient meds (3) Sickle cell anemia with pain Is this a current diagnosis for this admission?: Yes Plan: Dilaudid prn (4) DVT (deep venous thrombosis) Qualifiers: DVT location: lower extremity Chronicity: chronic Laterality: right Is this a current diagnosis for this admission?: Yes Plan: On Xarelto (5) Elevated bilirubin Is this a current diagnosis for this admission?: Yes Plan: Due to hemolysis. Improving- continue to monitor (6) Sickle cell anemia Qualifiers: Sickle-cell associated disorders: without crisis Qualified Code(s): D57.1 - Sickle-cell disease without crisis Is this a current diagnosis for this admission?: Yes Plan: Monitor hemoglobin. Hematology evaluation requested. LDH was ordered-pending. (7) Hypokalemia Is this a current diagnosis for this admission?: Yes Plan: Replete and continue to monitor. - Time Time Spent with patient: 35 or more minutes
--- NOTE | 2017-09-29 18:05 | PDOC TRANSFER SUMMARY ---
General Admission Date/PCP: 09/28/17 21:29 JOIE MOREIRA MD Transfer Date: 09/29/17 Accepting Facility: [facility] Accepting Physician: Dr. Adler Resuscitation Status: Full Code - Transfer Diagnosis (1) Chest pain Is this a current diagnosis for this admission?: Yes (2) Depression with anxiety Is this a current diagnosis for this admission?: Yes (3) Sickle cell anemia with pain Is this a current diagnosis for this admission?: Yes (4) DVT (deep venous thrombosis) Is this a current diagnosis for this admission?: Yes (5) Elevated bilirubin Is this a current diagnosis for this admission?: Yes (6) Sickle cell anemia Is this a current diagnosis for this admission?: Yes (7) Hypokalemia Is this a current diagnosis for this admission?: Yes (8) First degree AV block Is this a current diagnosis for this admission?: Yes (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 Is this a current diagnosis for this admission?: Yes - Transfer Medications Home Medications: Zolpidem Tartrate [Ambien] 10 mg PO HSP PRN 05/26/17 Oxycodone HCl [Oxycodone HCl] 5 mg PO Q6HP PRN 08/22/17 Transfer Medications: Current Medications Diphenhydramine HCl (Benadryl 25 Mg Capsule) 25 mg PO Q4HP PRN PRN Reason: ITCHING Stop: 10/28/17 21:29 Last Admin: 09/29/17 04:12 Dose: 25 mg Hydromorphone HCl (Dilaudid Inj/Pf 2 Mg/Ml Ampule) 1 mg IV Q3HP PRN PRN Reason: FOR PAIN SCALE 3-5 Stop: 10/06/17 12:23 Last Admin: 09/29/17 17:50 Dose: 1 mg Hydroxyurea (Hydrea 500 Mg Capsule) 500 mg PO BID FATEMEH Stop: 10/29/17 09:59 Last Admin: 09/29/17 17:50 Dose: 500 mg Potassium Chloride/Sodium Chloride (1/2ns 1000 Ml/Kcl 20 Meq Premix Bag) 20 meq in 1,000 mls @ 150 mls/hr IV CONTINUOUS PRN PRN Reason: THIS MED IS NOT "PRN" Stop: 10/29/17 04:58 Last Admin: 09/29/17 12:18 Dose: 1,000 ml Magnesium Oxide (Mag-Ox 400 Mg Tablet) 400 mg PO BID FATEMEH Stop: 10/29/17 17:59 Last Admin: 09/29/17 17:50 Dose: 400 mg Rivaroxaban (Xarelto 10 Mg Tablet) 20 mg PO QHS [facility] Stop: 10/29/17 21:59 Sodium Chloride (Saline Flush 2.5 Ml Monoject Prefil Syrin) 2.5 ml IV Q8 FATEMEH Stop: 10/28/17 21:59 Last Admin: 09/29/17 13:43 Dose: Not Given - Allergies Allergies/Adverse Reactions: morphine Allergy (Severe, Verified 09/28/17 22:58) RASH,SWELLING jacob peppers Adverse Reaction (Severe, Uncoded 09/28/17 22:58) throat closes Hospital Course Hospital Course: The patient is a 22-year-old female with sickle cell disease. Past medical history includes DVT of the right upper extremity after port placement on Xarelto Acute chest syndrome Anxiety and depression She presented to the emergency room with chest discomfort and was diagnosed with acute pain crisis and started on IV fluids and analgesics. Hematology consultation has been requested. She was noted to have some episodes of transient second-degree type I AV block overnight. EKG shows first-degree heart block. She is asymptomatic- No lightheadedness or presyncope. The plan is to transfer her to [facility] due to concerns for possible AV node ischemia. She has been accepted by Dr. Adler. Her case was discussed with Dr. Vega and Dr. Russ. Physical Exam Vital Signs: Temp Pulse Resp BP Pulse Ox 97.5 F 90 16 102/55 L 100 09/29/17 15:11 09/29/17 15:11 09/29/17 15:11 09/29/17 15:11 09/29/17 15:11 Intake & Output 09/28/17 09/29/17 09/30/17 06:59 06:59 06:59 Intake Total 1579 50 Output Total 950 Balance 629 50 Weight 60.9 kg General appearance: PRESENT: no acute distress Ear exam: PRESENT: normal external ear exam Mouth exam: PRESENT: moist Respiratory exam: PRESENT: symmetrical, unlabored. ABSENT: crackles, wheezes Cardiovascular exam: PRESENT: RRR GI/Abdominal exam: PRESENT: normal bowel sounds, soft. ABSENT: tenderness Rectal exam: PRESENT: deferred Extremities exam: ABSENT: pedal edema Neurological exam: PRESENT: alert, awake, oriented to person, oriented to place , oriented to time, oriented to situation Psychiatric exam: PRESENT: anxious Results Laboratory Results: 09/29/17 03:22 09/29/17 03:30 09/28/17 09/28/17 09/29/17 21:56 21:56 01:00 WBC 13.9 H RBC 2.14 L Hgb 7.9 L Hct 21.4 L MCV 100 H MCH 36.7 H MCHC 36.7 H RDW 16.0 H Plt Count 329 Seg Neutrophils % Not Reportable Lymphocytes % Not Reportable Monocytes % Not Reportable Eosinophils % Not Reportable Basophils % Not Reportable Absolute Neutrophils Not Reportable Absolute Lymphocytes Not Reportable Absolute Monocytes Not Reportable Absolute Eosinophils Not Reportable Absolute Basophils Not Reportable Retic Count (auto) Absolute Retic Sodium Potassium Chloride Carbon Dioxide Anion Gap BUN Creatinine Est GFR ( Amer) Est GFR (Non-Af Amer) Glucose Calcium Magnesium Total Bilirubin 7.8 H AST 24 ALT 19 Alkaline Phosphatase 53 Total Protein 6.1 L Albumin 3.4 L Lipase 48.3 Urine Color YELLOW Urine Appearance SLIGHTLY-CLOUDY Urine pH 6.0 Ur Specific [place] 1.011 Urine Protein NEGATIVE Urine Glucose (UA) NEGATIVE Urine Ketones NEGATIVE Urine Blood SMALL H Urine Nitrite NEGATIVE Ur Leukocyte Esterase TRACE H Urine WBC (Auto) 3 09/29/17 09/29/17 09/29/17 03:22 03:30 09:30 WBC 14.7 H RBC 2.07 L Hgb 7.6 L Hct 20.6 L MCV 100 H MCH 36.6 H MCHC 36.7 H RDW 15.4 H Plt Count 305 Seg Neutrophils % Lymphocytes % Monocytes % Eosinophils % Basophils % Absolute Neutrophils Absolute Lymphocytes Absolute Monocytes Absolute Eosinophils Absolute Basophils Retic Count (auto) 12.12 H Absolute Retic 0.250 H Sodium 145.3 H Potassium 3.3 L Chloride 111 H Carbon Dioxide 27 Anion Gap 7 BUN 7 Creatinine 0.51 L Est GFR ( Amer) > 60 Est GFR (Non-Af Amer) > 60 Glucose 95 Calcium 8.4 Magnesium 1.7 Total Bilirubin AST ALT Alkaline Phosphatase Total Protein Albumin Lipase Urine Color Urine Appearance Urine pH Ur Specific [place] Urine Protein Urine Glucose (UA) Urine Ketones Urine Blood Urine Nitrite Ur Leukocyte Esterase Urine WBC (Auto) 09/28/17 09/29/1718 21:56 03:22 03:30 Troponin I < 0.012 < 0.012 < 0.012 Impressions: Chest X-Ray 09/28/17 16:42 IMPRESSION: No acute radiographic finding in the chest. Status: Imported from PACS Plan Time Spent: Greater than 30 Minutes
[2017-09-29] MEDS ORDERED: RIVAROXABAN 10 MG TABLET PO SCH (22:00)
[2017-09-30] MEDS: DIPHENHYDRAMINE HCL 25 MG CAPSULE PO PRN ×2 (02:18→06:02)
[2017-09-30] MEDS: POTASSI CL 20 MEQ/1/2NS 1L 20 MEQ/1,000 ML RTUINJ IV PRN (02:19)
[2017-09-30] MEDS: HYDROMORPHONE HCL INJ/PF 2 MG/ML AMPULE IV PRN ×5 (02:20→17:09)
[2017-09-30 05:41] LABS: ABSOLUTE RETICS # 0.255 10^6/uL (0.028-0.122); HEMATOCRIT 19.5 % (36.0-47.0); MEAN CORPUSCULAR VOLUME 100 fl (80-97); PLATELET COUNT 293 10^3/uL (150-450); RED BLOOD COUNT 1.95 10^6/uL (3.72-5.28); RED CELL DISTRIBUTION WIDTH 16.2 % (11.5-14.0); RETICULOCYTE COUNT (AUTO) 13.06 % (0.66-2.85)
--- NOTE | 2017-09-30 06:10 | EKG REPORT ---
SEVERITY:- NORMAL ECG - SINUS RHYTHM : Confirmed by: Kris Baker MD 30-Sep-2017 06:10:10
[2017-09-30 06:13] LABS: ALANINE AMINOTRANSFERASE 14 U/L (9-52); ALBUMIN 3.4 g/dL (3.5-5.0); ALKALINE PHOSPHATASE 63 U/L (38-126); ANION GAP 9 (5-19); ASPARTATE AMINO TRANSFERASE 22 U/L (14-36); BILIRUBIN,DIRECT 0.1 mg/dL (0.0-0.4); BLOOD UREA NITROGEN 6 mg/dL (7-20); CALCIUM 8.5 mg/dL (8.4-10.2); CARBON DIOXIDE 24 mmol/L (22-30); CHLORIDE 111 mmol/L (98-107); GLUCOSE 76 mg/dL (75-110); PHOSPHORUS 4.6 mg/dL (2.5-4.5); POTASSIUM 4.4 mmol/L (3.6-5.0); SODIUM 144.1 mmol/L (137-145); TOTAL PROTEIN 6.1 g/dL (6.3-8.2)
[2017-09-30 06:36] LABS: MEAN CORPUSCULAR HEMOGLOBIN 33.8 pg (27.0-33.4)
[2017-09-30 06:37] LABS: MEAN CORPUSCULAR HGB CONC 33.8 g/dL (32.0-36.0)
[2017-09-30 06:52] LABS: WHITE BLOOD COUNT 10.1 10^3/uL (4.0-10.5)
[2017-09-30 06:56] LABS: HEMOGLOBIN 6.6 g/dL (12.0-15.5)
[2017-09-30] MEDS ORDERED: DEXTROSE 5%-1/2 NORMAL SALINE 1,000 ML IV PRN (08:19)
--- NOTE | 2017-09-30 08:30 | PDOC PROGRESS REPORT ---
Subjective Progress Note for:: 09/30/17 Subjective:: Patient states that she is about the same today. Still having pain, but controlled with current meds. No new symptoms. She is awaiting bed at [facility]. ROS: No nausea. No dizziness. Positive chest and joint pain. Reason For Visit: VASO OCCLUSIVE PAIN IN SICKLE CELL DISEASE Physical Exam Vital Signs: Temp Pulse Resp BP Pulse Ox 98.1 F 84 14 100/48 L 98 09/30/17 07:58 09/30/17 07:58 09/30/17 07:58 09/30/17 07:58 09/30/17 07:58 Intake & Output 09/29/17 09/30/17 10/01/17 06:59 06:59 06:59 Intake Total 1579 3838 Output Total 950 3950 Balance 629 -112 Weight 60.9 kg 61.3 kg General appearance: PRESENT: no acute distress, well-developed, well-nourished Head exam: PRESENT: atraumatic Eye exam: PRESENT: PERRLA Respiratory exam: PRESENT: clear to auscultation samaria, unlabored Cardiovascular exam: PRESENT: irregular rhythm. ABSENT: systolic murmur Extremities exam: ABSENT: pedal edema, tenderness Neurological exam: PRESENT: alert, awake, oriented to person, oriented to place , oriented to time, oriented to situation Psychiatric exam: PRESENT: appropriate affect Focused psych exam: ABSENT: psychomotor agitation, restlessness Skin exam: PRESENT: normal color Results Laboratory Results: 09/30/17 04:55 09/30/17 04:55 09/29/17 09/30/17 09/30/17 09:30 04:55 04:55 WBC 10.1 RBC 1.95 L Hgb 6.6 L Hct 19.5 L MCV 100 H MCH 33.8 H MCHC 33.8 RDW 16.2 H Plt Count 293 Retic Count (auto) 13.06 H Absolute Retic 0.255 H Sodium 144.1 Potassium 4.4 Chloride 111 H Carbon Dioxide 24 Anion Gap 9 BUN 6 L Creatinine 0.56 Est GFR ( Amer) > 60 Est GFR (Non-Af Amer) > 60 Glucose 76 Calcium 8.5 Phosphorus 4.6 H Magnesium 1.7 1.8 Total Bilirubin 6.0 H AST 22 ALT 14 Alkaline Phosphatase 63 Total Protein 6.1 L Albumin 3.4 L 0709/29/17 09/29/17 21:56 03:22 03:30 Troponin I < 0.012 < 0.012 < 0.012 Impressions: Chest X-Ray 09/28/17 16:42 IMPRESSION: No acute radiographic finding in the chest. Assessment & Plan - Diagnosis (1) Sickle cell anemia with pain Is this a current diagnosis for this admission?: Yes Plan: Await transfer to [facility]. Her HGB continues to decrease. Still concerned about the abnormal heart rhythm and possible need for plasma pharesis. Would prefer not to transfuse. But may if patient becomes unstable. (2) DVT (deep venous thrombosis) Qualifiers: DVT location: lower extremity Chronicity: chronic Laterality: right Is this a current diagnosis for this admission?: Yes Plan: Continues Xarelto. No change today. - Plan Summary Plan Summary: Dr. Baum returns tomorrow. I am hopeful, she will be transferred by then.
[2017-09-30] MEDS: MAGNESIUM OXIDE 400 MG TABLET PO SCH ×2 (09:37→16:59)
[2017-09-30] MEDS: HYDROXYUREA 500 MG CAPSULE PO SCH ×2 (09:37→17:00)
--- NOTE | 2017-09-30 12:27 | PDOC PROGRESS REPORT ---
Subjective Progress Note for:: 09/30/17 Subjective:: The patient is a 22-year-old female with sickle cell disease. Past medical history: DVT of the right upper extremity after port placement on Xarelto Acute chest syndrome Anxiety and depression She presented to the emergency room with chest discomfort and was started on IV fluids and analgesics. Hematology consultation appreciated She was noted to have some episodes of transient second-degree type I AV block on September 28. EKG showed first-degree heart block. She has been asymptomatic. The plan is to transfer her to [facility] due to concerns for possible AV node ischemia. She has been accepted by Dr. Adler, and is awaiting a bed. No complaints at present. Reason For Visit: VASO OCCLUSIVE PAIN IN SICKLE CELL DISEASE Physical Exam Vital Signs: Temp Pulse Resp BP Pulse Ox 98.1 F 84 14 100/48 L 98 09/30/17 07:58 09/30/17 07:58 09/30/17 07:58 09/30/17 07:58 09/30/17 07:58 Intake & Output 09/29/17 09/30/17 10/01/17 06:59 06:59 06:59 Intake Total 1579 3838 Output Total 950 3950 Balance 629 -112 Weight 60.9 kg 61.3 kg General appearance: PRESENT: no acute distress, well-developed, well-nourished Head exam: PRESENT: normocephalic Ear exam: PRESENT: normal external ear exam Mouth exam: PRESENT: moist Neck exam: ABSENT: tracheal deviation Respiratory exam: PRESENT: symmetrical, unlabored. ABSENT: wheezes Cardiovascular exam: PRESENT: RRR GI/Abdominal exam: PRESENT: normal bowel sounds, soft. ABSENT: tenderness Rectal exam: PRESENT: deferred Gentrourinary exam: ABSENT: indwelling catheter Extremities exam: ABSENT: pedal edema Neurological exam: PRESENT: alert, awake, oriented to person, oriented to place , oriented to time, oriented to situation Psychiatric exam: PRESENT: appropriate affect Skin exam: ABSENT: petechiae Results Laboratory Results: 09/30/17 04:55 09/30/17 04:55 09/29/17 09/30/17 09/30/17 09:30 04:55 04:55 WBC 10.1 RBC 1.95 L Hgb 6.6 L Hct 19.5 L MCV 100 H MCH 33.8 H MCHC 33.8 RDW 16.2 H Plt Count 293 Retic Count (auto) 13.06 H Absolute Retic 0.255 H Sodium 144.1 Potassium 4.4 Chloride 111 H Carbon Dioxide 24 Anion Gap 9 BUN 6 L Creatinine 0.56 Est GFR ( Amer) > 60 Est GFR (Non-Af Amer) > 60 Glucose 76 Calcium 8.5 Phosphorus 4.6 H Magnesium 1.7 1.8 Total Bilirubin 6.0 H AST 22 ALT 14 Alkaline Phosphatase 63 Total Protein 6.1 L Albumin 3.4 L 09/28/17 09/29/17 09/29/17 21:56 03:22 03:30 Troponin I < 0.012 < 0.012 < 0.012 Impressions: Chest X-Ray 09/28/17 16:42 IMPRESSION: No acute radiographic finding in the chest. Assessment & Plan - Diagnosis (1) Sickle cell pain crisis Is this a current diagnosis for this admission?: Yes Plan: Continue IV fluids and analgesics. (2) DVT (deep venous thrombosis) Qualifiers: DVT location: lower extremity Chronicity: chronic Laterality: right Is this a current diagnosis for this admission?: Yes Plan: On Xarelto (3) Elevated bilirubin Is this a current diagnosis for this admission?: Yes Plan: Due to hemolysis. Improving- continue to monitor (4) Sickle cell anemia Qualifiers: Sickle-cell associated disorders: without crisis Qualified Code(s): D57.1 - Sickle-cell disease without crisis Is this a current diagnosis for this admission?: Yes Plan: Monitor hemoglobin. No indication for blood transfusion at present. LDH elevated. Hematology input appreciated. (5) Hypokalemia Is this a current diagnosis for this admission?: Yes Plan: Replete and continue to monitor. (6) First degree AV block Is this a current diagnosis for this admission?: Yes Plan: Continue to monitor. (7) Second degree type II atrioventricular block Is this a current diagnosis for this admission?: Yes Plan: Resolved. (8) Depression with anxiety Is this a current diagnosis for this admission?: Yes Plan: Continue outpatient meds - Time Time Spent with patient: 25-34 minutes - Plan Summary Plan Summary: Awaiting transfer to [facility] once a bed becomes available.
--- NOTE | 2017-09-30 12:30 | CONSULTATION REPORT E ---
Consultation Report NAME: CASSANDRA MIDDLETON : 1995 AGE: 22Y DATE: 09/29/2017 321 B TO: DOROTEO RICH M.D. FROM: CARL LOVE M.D. Requesting Physician REASON FOR CONSULTATION: Patient with sickle cell crisis with new first degree AV block which is severe and also transient second degree AV block Mobitz type 1 Wenckebach phenomenon. Note, the patient was seen at 12:00 noon. Fifty-five minutes spent on the with patient with more than 50% of the time spent on direct patient care. Her July EKG was also reviewed by me which did not show an AV block. HISTORY OF PRESENT ILLNESS: The patient is a 22-year-old -[place] female with known history of sickle cell anemia. Developed back pain and was seen in the ER and was treated in the ER and sent home. This was about last Friday. On Friday, she went and saw Dr. Baum. Her blood pressure was low during the appointment and she was sent to the emergency room again where she was treated and subsequently went home. The patient now presents with severe abdominal pain and also chest pain. The patient also is known now to have severe first degree AV block and also some episodes of secondary AV block Mobitz type 1 Wenckebach phenomenon. She has some dizziness since her blood pressure was slightly low in the emergency room but not too low. She had some shortness of breath with the chest pain but there is no PND or orthopnea. The patient denies any palpitations. There is no symptoms of presyncope, syncope or prior history of syncope. There is no leg edema. There is no history of coronary artery disease. PAST MEDICAL HISTORY: Positive for history of sickle cell anemia with a history of sickle cell crisis in the past. She has past history of pneumonia. History of DVT in the right upper extremity after a port placement and the patient is on Xarelto for this. She has no history of asthma or COPD. There is no history of diabetes mellitus or thyroid disease. There is no history of hypertension. She has a history of anxiety and depression. PAST SURGICAL HISTORY: Positive for: 1. Del Castillo catheter placement. 2. Cholecystectomy. 3. Port-A-Cath placement in the right upper chest. SOCIAL HISTORY: The patient does not smoke. There is no history of ETOH abuse. DISPOSITION: The patient is a FULL CODE. Her sister is her surrogate healthcare decision maker. Her name is Ml Kc whose telephone number is [phone]. FAMILY HISTORY: Positive for sickle cell disease. Negative for any other major illnesses. ALLERGIES: The patient is allergic to MORPHINE AND SCHNEIDER PEPPERS. MEDICATIONS: Include: 1. Benadryl 25 mg p.o. q.4 hours p.r.n 2. She is on Dilaudid injection 1 mg IV now and 1 mg IV q.3 hours p.r.n. 3. She is on hydroxyurea 500 mg p.o. b.i.d. 4. She is on normal saline with 20 mEq of KCl in each liter to 150 mL/hr. 5. She is on Xarelto 20 mg p.o. daily at bedtime. REVIEW OF SYSTEMS: CONSTITUTIONAL: Denies any fever, chills, or rigors. Complains of generalized fatigue and weakness. EYES: No history of amblyopia or diplopia. No history of floaters. No history of amaurosis fugax. EARS: The patient is slightly hard of hearing. There is no history of tinnitus. No history of recurrent ear infections. NOSE: No history of recurrent nosebleeds. No history of hay fever. No history of nasal polyps. MOUTH: Complains of dry mucous membrane but no altered taste sensation. No ulcers in the mouth. No bleeding from the gums. THROAT: No odynophagia or dysphagia. No history of recurrent sore throats. SKIN: There is no pruritus. There is no yellowish discoloration of the skin although bilirubin is elevated. NECK: No neck pain. No enlarged lymph nodes of the neck. No goiter. LUNGS: No history of asthma and COPD. No history of cough or sputum production. Chest pain as mentioned earlier secondary to sickle cell crisis. There is tenderness over the sternum. There is no history of pulmonary embolism. She has a history of DVT in the right upper extremities. There is no history of hemoptysis. No pleuritic chest pain. No history of sleep apnea. No history of asthma or COPD. CARDIAC: No history of hypertension. No history of arrhythmia. Note the EKG in July 2017 showed a normal DC interval. Now she has a DC interval of 3.346 seconds which is significant and also a review of the monitor strip shows secondary AV block Mobitz type 1 Wenckebach phenomenon which is has been transient. The patient has chest wall pain but no anginal symptoms. On congenital heart disease. No PND or orthopnea. She has shortness of breath with the chest pain. Also, the patient is anemic. There is no leg edema. There is no syncope or presyncope. GASTROINTESTINAL: No history of GERD. No history of peptic ulcer disease. No history of fatty food intolerance. No history of hepatitis. No history of cirrhosis. No GI bleed. No history of altered bowel movements. ENDOCRINE: No history of diabetes mellitus. No history of thyroid disease. No history of polydipsia or polyuria. No history of heat or cold intolerance. No hirsutism. No excessive sweating. RENAL: No history of chronic kidney disease. No symptoms of a UTI. No history of hematuria, pyuria, or dysuria. MUSCULOSKELETAL: Denies arthritis or collagen vascular disease. Has chest wall pain and abdominal pain secondary to sickle cell crisis. There is no history of collagen vascular disease. PSYCHIATRIC: History of anxiety and depression present. She is also depressed and anxious since medical condition keeps her from work. She is not on any antidepressants or antianxiolytic agents. There is no suicidal ideation. There is no homicidal ideation. HEMATOLOGIC: There is history of sickle cell disease and sickle cell crisis. The patient is also anemia. VASCULAR: History of DVT in right upper extremity. Patient on Xarelto. No calf or buttock claudication. PHYSICAL EXAMINATION: GENERAL: On examination, the patient at present does not appear to be in any major distress although she complains of chest pain. She is on the phone texting. VITAL SIGNS: She is afebrile with a temperature of 98.4 degrees Fahrenheit, pulse is 91 beats per minute, blood pressure is 116/56, respirations are 12 per minute, O2 saturations are 100% on 2 L nasal cannula. Her heart rate is 76 beats per minute. At present, monitor shows severe first degree AV block. I did not observe any further episodes of second degree AV block. HEENT: Head is atraumatic, normocephalic. Eyes: Pupils are equal, round and regular, reactive to light and accommodation. Extraocular movements are normal. There is no conjunctival pallor. There is no scleral icterus. Ears: Tympanic membranes are intact, external auditory canals are clear. Nose: There is no deviated nasal septum. There is no inflammation of the nasal mucous membrane. Mouth: Mucous membranes of the mouth are moist. Tongue is moist. There are no ulcers. There is no bleeding from the gums. Throat: There is no redness of the oropharynx. There are no exudates. SKIN: There is no skin rashes. There are no skin lesions. There is no petechiae or ecchymosis. There is no splinter images of the nails. NECK: Supple. There is no JVD. Carotids are equal. There is no bruit. There is no goiter. There is no lymphadenopathy. HEART: S1, S2 is heard. There is no S3 gallop. There is no S4 gallop. There is a systolic murmur heard in the precordium. There is no rub. ABDOMEN: Soft. She has minimal tenderness in the epigastrium without any rebound, guarding or rigidity. There is no hepatosplenomegaly. Bowel sounds are well heard. EXTREMITIES: Femorals are well felt. There is no femoral bruit. Leg pulses are well felt. There is no pedal edema. There is no cyanosis or clubbing. There is no DVT or cellulitis. There is no calf tenderness. CENTRAL NERVOUS SYSTEM: The patient is conscious, awake, alert and oriented x3 with no focal deficits. PSYCHIATRIC: At present, the patient does not appear to be agitated or anxious. Her judgment and insight are intact. Her affect is normal. DIAGNOSTICS: Her chest x-ray shows no acute radiographic changes. The patient's EKG shows sinus rhythm with a normal DC interval and this was done September 28. Her EKG today shows a severe first degree AV block with a DC interval of 3.348 seconds, borderline T wave abnormalities in three leads. The patient's white count is 14,700, hemoglobin is 7.6, hematocrit is 20.6, and the platelet count is 305,000. Her reticulocyte count is 12.12. Her absolute reticulocyte count is elevated at 0.250. The patient's LDH is pending since the machine is under repair. Her troponin I is negative x3. Her lipase is 48.3. Albumin is 3.42 and folate is 6.1. Her magnesium is normal at 1.7. Her sodium is 145.3, potassium is 3.3, chloride is 111, CO2 is 27. The patient's BUN is 7, creatinine is 0.51, GFR is greater than 60 and her glucose is 95. Calcium is 8.4. The patient's urine specific gravity is 1.011 with a small amount of blood in the urine. Urine protein is negative. Urine glucose is negative. Urine leukocyte esterase is 3. Urobilinogen is 4.0 which is high. The patient's total bilirubin is elevated at 7.8, direct bilirubin in 0.2. Liver function tests are otherwise normal. IMPRESSION: 1. New onset of severe first AV block and transient second degree AV block Mobitz type 1 Wenckebach phenomenon. This may be a of most previous complications since this may return myocardial infarction/ischemia of the AV node. 2. Sickle cell crisis. 3. Anemia. 4. Hyperbilirubinemia due to . The patient's RBC cells being destroyed. 5. Hypokalemia. The patient is being replenished with potassium. 6. Chest pain/abdominal pain secondary to sickle cell crisis. 7. History of deep venous thrombosis, right upper extremity, on Xarelto. 8. Depression. 9. Anxiety. RECOMMENDATIONS: Would recommend transfer the patient to tertiary care center in view of the patient's EKG findings which may be serious complications. This has been discussed with the hospitalist taking care of the patient and also with the sales office assistant who concurs. Note, the patient was seen at 12:00 noon. A total of 55 minutes spent on the patient with more than 50% of the time spent on direct patient care. Her old EKGs were also reviewed. Medical decision making requirements are of high complexity. the patient of transfer and sign off the case. Would recommend Hematology to handle the patient's anemia and the sickle cell crisis. DICTATING PHYSICIAN: DOROTEO RICH M.D. 1951 PHY#: [id number] ID: [id number] JOB#: [id number] ACCT: [id number] cc:DOROTEO RICH M.D. >
[2017-09-30 13:12] VITALS: BP 98/46
--- NOTE | 2017-09-30 14:06 | PDOC TRANSFER SUMMARY ---
General Admission Date/PCP: 09/28/17 21:29 JOIE MOREIRA MD Admission Date: 09/28/17 Transfer Date: 09/30/17 Accepting Facility: [facility] Accepting Physician: Dr. Adler Resuscitation Status: Full Code - Transfer Diagnosis (1) Sickle cell pain crisis Is this a current diagnosis for this admission?: Yes (2) DVT (deep venous thrombosis) Is this a current diagnosis for this admission?: Yes (3) Elevated bilirubin Is this a current diagnosis for this admission?: Yes (4) Sickle cell anemia Is this a current diagnosis for this admission?: Yes (5) Hypokalemia Is this a current diagnosis for this admission?: Yes (6) First degree AV block Is this a current diagnosis for this admission?: Yes (7) Second degree type II atrioventricular block Is this a current diagnosis for this admission?: Yes (8) Depression with anxiety Is this a current diagnosis for this admission?: Yes - Transfer Medications Home Medications: Zolpidem Tartrate [Ambien] 10 mg PO HSP PRN 05/26/17 Transfer Medications: Current Medications Diphenhydramine HCl (Benadryl 25 Mg Capsule) 25 mg PO Q4HP PRN PRN Reason: ITCHING Stop: 10/28/17 21:29 Last Admin: 09/30/17 06:02 Dose: 25 mg Hydromorphone HCl (Dilaudid Inj/Pf 2 Mg/Ml Ampule) 1 mg IV Q3HP PRN PRN Reason: FOR PAIN SCALE 3-5 Stop: 10/06/17 12:23 Last Admin: 09/30/17 10:01 Dose: 1 mg Hydroxyurea (Hydrea 500 Mg Capsule) 500 mg PO BID [facility] Stop: 10/29/17 09:59 Last Admin: 09/30/17 09:37 Dose: 500 mg Dextrose/Sodium Chloride (D5-1/2ns 1000 Ml Iv Soln) 1,000 mls @ 125 mls/hr IV CONTINUOUS PRN PRN Reason: THIS MED IS NOT "PRN" Stop: 10/30/17 08:18 Last Admin: 09/30/17 09:38 Dose: 1,000 ml Magnesium Oxide (Mag-Ox 400 Mg Tablet) 400 mg PO BID [facility] Stop: 10/29/17 17:59 Last Admin: 09/30/17 09:37 Dose: 400 mg Rivaroxaban (Xarelto 10 Mg Tablet) 20 mg PO QHS [facility] Stop: 10/29/17 21:59 Last Admin: 09/29/17 21:31 Dose: 20 mg Sodium Chloride (Saline Flush 2.5 Ml Monoject Prefil Syrin) 2.5 ml IV Q8 [facility] Stop: 10/28/17 21:59 Last Admin: 09/30/17 13:43 Dose: Not Given - Allergies Allergies/Adverse Reactions: morphine Allergy (Severe, Verified 09/28/17 22:58) RASH,SWELLING jacob peppers Adverse Reaction (Severe, Uncoded 09/28/17 22:58) throat closes - Diet/Activity Discharge Diet: As Tolerated Hospital Course Hospital Course: The patient is a 22-year-old female with sickle cell disease. Past medical history: DVT of the right upper extremity after port placement on Xarelto Acute chest syndrome Anxiety and depression She presented to the emergency room on 09/28/17 with chest discomfort and was diagnosed with acute pain crisis and started on IV fluids and analgesics. She was noted to have some episodes of transient second-degree type I AV block overnight on 09/28/17. EKG shows first-degree heart block. She is asymptomatic- No lightheadedness or presyncope. The plan is to transfer her to [facility] due to concerns for possible AV node ischemia. She has been accepted by Dr. Adler. Her case was discussed with Dr. Vega and Dr. Russ. She is receiving IV fluids and IV Dilaudid as needed for pain. Currently in sinus rhythm. She had some sinus bradycardia overnight with heart rate in the 40s. No further evidence of second-degree heart block. Transfer was recommended by the cryptographer and fur trimmer for possible need for plasmapheresis. Hemoglobin on admission was 7.7 it is 6.6 today. Plan is to withhold transfusion unless absolutely needed. WBC count on admission was 13.6. It is 10.1 today. Bilirubin 9.9 on admission, 6.0 today: Indirect. LDH is 781. Temperature 98.6F Blood pressure 98/46, heart rate 81, respiratory rate 14, satting 97% on room air Physical Exam Vital Signs: Temp Pulse Resp BP Pulse Ox 98.6 F 81 14 98/46 L 97 09/30/17 11:28 09/30/17 11:28 09/30/17 11:28 09/30/17 11:28 09/30/17 11:28 Intake & Output 09/29/17 09/30/17 10/01/17 06:59 06:59 06:59 Intake Total 1579 3838 450 Output Total 950 3950 900 Balance 269 112 -640 Weight 60.9 kg 61.3 kg General appearance: PRESENT: no acute distress, well-developed, well-nourished Head exam: PRESENT: normocephalic Respiratory exam: PRESENT: symmetrical, unlabored Cardiovascular exam: PRESENT: RRR Neurological exam: PRESENT: alert, awake, oriented to person, oriented to place , oriented to time, oriented to situation Psychiatric exam: PRESENT: appropriate affect Results Laboratory Results: 09/30/17 04:55 09/30/17 04:55 09/30/17 09/30/17 04:55 04:55 WBC 10.1 RBC 1.95 L Hgb 6.6 L Hct 19.5 L MCV 100 H MCH 33.8 H MCHC 33.8 RDW 16.2 H Plt Count 293 Retic Count (auto) 13.06 H Absolute Retic 0.255 H Sodium 144.1 Potassium 4.4 Chloride 111 H Carbon Dioxide 24 Anion Gap 9 BUN 6 L Creatinine 0.56 Est GFR ( Amer) > 60 Est GFR (Non-Af Amer) > 60 Glucose 76 Calcium 8.5 Phosphorus 4.6 H Magnesium 1.8 Total Bilirubin 6.0 H AST 22 ALT 14 Alkaline Phosphatase 63 Total Protein 6.1 L Albumin 3.4 L 09/28/17 09/29/17 09/29/17 21:56 03:22 03:30 Troponin I < 0.012 < 0.012 < 0.012 Impressions: Chest X-Ray 09/28/17 16:42 IMPRESSION: No acute radiographic finding in the chest. Status: Imported from PACS Plan Time Spent: Greater than 30 Minutes
== END 2017-09-30 17:29 | disposition short-term general hospital (02) | DRG 812 ==
LOC: ER 15:35 → EH 20:04 → OBSVTOIN 21:29 → 3W 22:47
PROVIDERS: ADMIT Internal Medicine; ATTEND Internal Medicine
DX: D57.00 Hb-SS disease with crisis, unspecified (principal); I82.721 Chronic embolism and thrombosis of deep veins of right upper extremity; E87.6 Hypokalemia; I44.1 Atrioventricular block, second degree; F41.9 Anxiety disorder, unspecified; F32.9 Major depressive disorder, single episode, unspecified; Z79.899 Other long term (current) drug therapy; Z88.6 Allergy status to analgesic agent; Z91.018 Allergy to other foods; Z90.49 Acquired absence of other specified parts of digestive tract
CPT/HCPCS: 36415; 36591; 71045; 80048; 80053; 80076; 81001; 83615; 83690; 83735; 84100; 84484; 85025; 85027; 85045; 93005; 93010; 99285; J1170; J3480; J3490; J7030

== ENCOUNTER 2017-10-04 20:31 | Emergency (ER) | payer MEDICAID ==
[2017-10-04] MEDS ORDERED: DIPHENHYDRAMINE HCL 50 MG/ML VIAL IV ONE (20:56)
--- NOTE | 2017-10-04 21:00 | ER Document Report ---
ED General - General Chief Complaint: Back Pain Stated Complaint: SICKLE CELL CRISIS BACK PAIN TRAVEL OUTSIDE OF THE [place] IN LAST 30 DAYS: No - HPI Notes: Patient is a 22-year-old female with a history of sickle cell who presents to the ED complaining of low back pain and 'mild' sternal chest pain x2-3 days. Patient states that she feels like she is having another sickle cell crisis, but it is feels like a typical crisis for her, but the pain in the back has not responded to her home medications. She is still eating and drinking without difficulties, but does have a dec PO intake due to pain. She is urinating normally and having normal bowel movements. She is still able to ambulate. Patient was admitted to the hospital about 6 days ago for sickle cell pain as she has had recurrent visits to the ED just prior. Patient was transferred to [facility] due to first-degree AV block. Patient states that she was still in pain when she was discharged yesterday. No other concerns or complaints at this time. Denies any headache, fever, neck pain, URI, sore throat, palpitations, syncope, cough, shortness of breath, wheeze, dyspnea, abdominal pain, nausea/ vomiting/diarrhea, urinary retention, dysuria, hematuria, loss of control of bowel or bladder, numbness/tingling, saddle anesthesia, muscle paralysis/ weakness, or rash. - Related Data Allergies/Adverse Reactions: morphine Allergy (Severe, Verified 09/28/17 22:58) RASH,SWELLING jacob peppers Adverse Reaction (Severe, Uncoded 09/28/17 22:58) throat closes Past Medical History - Social History Smoking Status: Smoker,Current Status Unk Chew tobacco use (# tins/day): No Frequency of alcohol use: None Drug Abuse: None Family History: Other - Sickle cell Patient has suicidal ideation: No Patient has homicidal ideation: No - Past Medical History Cardiac Medical History: Reports: Hx DVT - RUE s/p port placement Denies: Hx Congestive Heart Failure, Hx Coronary Artery Disease, Hx Heart Attack, Hx Hypertension, Hx Pulmonary Embolism Pulmonary Medical History: Reports: Hx Bronchitis - once in past per patient, Hx Pneumonia - history in past per patient Denies: Hx Asthma, Hx COPD, Hx Tuberculosis Neurological Medical History: Denies: Hx Cerebrovascular Accident, Hx Migraine, Hx Seizures Endocrine Medical History: Denies: Hx Diabetes Mellitus Type 1, Hx Diabetes Mellitus Type 2, Hx Hyperthyroidism, Hx Hypothyroidism Renal/ Medical History: Denies: Hx End Stage Renal Disease, Hx Kidney Stones, Hx Peritoneal Dialysis GI Medical History: Denies: Hx Cirrhosis, Hx Gastroesophageal Reflux Disease, Hx Ulcer Musculoskeltal Medical History: Denies Hx Arthritis, Denies Hx Multiple Sclerosis, Reports Hx Musculoskeletal Trauma Psychiatric Medical History: Reports: Hx Anxiety, Hx Depression - anxiety Denies: Hx Bipolar Disorder, Hx Schizophrenia Past Surgical History: Reports: Hx Cholecystectomy - 06/28/2015, Hx Vascular Surgery - port put in December,, Other - Port-A-Cath in right upper chest - Immunizations Immunizations up to date: Yes Hx Diphtheria, Pertussis, Tetanus Vaccination: Yes Review of Systems - Review of Systems -: Yes All other systems reviewed and negative Physical Exam - Vital signs Vitals: Temp Pulse Resp BP Pulse Ox 99.0 F 102 H 20 114/53 L 98 10/04/17 20:38 10/04/17 20:38 10/04/17 20:38 10/04/17 20:38 10/04/17 20:38 - Notes Notes: PHYSICAL EXAMINATION: GENERAL: Pt is crying and appears in discomfort Chest: + tenderness lower sternal area, correlates with pain described. No flail chest. LUNGS: Breath sounds clear to auscultation bilaterally and equal. No wheezes rales or rhonchi. HEART: Regular rate and rhythm without murmurs, rubs, gallops. ABDOMEN: Soft, nontender, nondistended abdomen. No guarding, no rebound. No masses appreciated. Normal bowel sounds present. No CVA tenderness bilaterally. No pulsatile mass Musculoskeletal: LE's b/l: FROM to passive/active. Strength 5+/5. No deficits noted. No bony tenderness of extremities. Back: FROM to passive/active. Strength 5+/5. No vertebral point tenderness, stepoffs, or deformities. No other bony tenderness, erythema, swelling, or ecchymosis. SLR negative b/l. No SI jt tenderness. No foot drop Extremities: No cyanosis, clubbing, or edema b/l. Peripheral pulses 2+. Capillary refill less than 2 seconds. NEUROLOGICAL: Normal speech, normal gait. Normal sensory, motor exams. Reflexes 2+ b/l. PSYCH: Normal mood, normal affect. SKIN: Warm, Dry, normal turgor, no rashes or lesions noted. Course - Re-evaluation Re-evalutation: 10/04/17 21:00 Labs, imaging, fluids, and medications ordered. 10/04/17 23:05 Patient is an afebrile, well-hydrated, 22-year-old female who presents to the ED with a sickle cell crisis without acute aplastic lab findings for her LBP/ CP. Vitals are acceptable. PE is otherwise unremarkable. CBC, reticulocyte count, total bili, CMP were acceptable and were very close to her baseline. Reviewed WBC's with Dr. Good (baseline). CXR unremarkable for acute pathology. No other imaging warranted at this time based on H&P. Patient is tolerating p.o. without difficulties and is much more comfortable after medications. Patient did receive Dilaudid, Benadryl, and fluids. Pt's presentation, work up, and symptomatology not consistent for any acute chest syndrome, sepsis, meningitis, severe dehydration, respiratory compromise, cauda equina, disc herniation causing severe spinal stenosis, spinal abscess, or other systemic emergent condition at this time. Pt is aware that condition can change from initial presentation and she needs to monitor symptoms closely and seek medical attention with any acute changes. Conservative measures otherwise for symptoms. 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 Return to the ED with any worsening/concerning symptoms otherwise as reviewed discharge. Patient is in agreement. - Vital Signs Vital signs: Temp Pulse Resp BP Pulse Ox 99.0 F 102 H 18 113/58 L 100 10/04/17 20:38 10/04/17 20:38 10/04/17 23:00 10/04/17 22:01 10/04/17 23:00 - Laboratory Result Diagrams: 10/04/17 21:30 10/04/17 21:30 Laboratory results interpreted by me: 10/04/17 10/04/17 10/04/17 21:20 21:30 21:30 WBC 26.7 H RBC 2.31 L Hgb 8.8 L Hct 23.8 L MCV 103 H MCH 38.0 H MCHC 37.0 H RDW 16.5 H Seg Neuts % (Manual) 93 H Lymphocytes % (Manual) 4 L Abs Neuts (Manual) 0.0 L Abs Lymphs (Manual) 0.0 L Abs Monocytes (Manual) 0.0 L Retic Count (auto) 9.35 H Absolute Retic 0.217 H Glucose 125 H Total Bilirubin 6.0 H Direct Bilirubin 0.5 H AST 51 H Total Protein 8.6 H Urine Protein 100 H Urine Blood SMALL H Urine Urobilinogen 2.0 H Discharge - Discharge Clinical Impression: Sickle cell anemia with crisis Back pain Qualifiers: Back pain location: low back pain Chronicity: acute Back pain laterality: bilateral Sciatica presence: without sciatica Qualified Code(s): M54.5 - Low back pain Condition: Stable Disposition: HOME, SELF-CARE Instructions: Sickle Cell Crisis ([facility]) Additional Instructions: Rest, Ice Tylenol/ibuprofen as needed Light stretches daily Strength exercises as able Moist heat and massage may help F/u with your PCP/Dairy Manager in 3-5 days for a recheck Consider consult(s) with Orthopedics/physical therapy for ongoing/worsening symptoms Return to the ED with any worsening symptoms and/or development of fever, headache, chest pain, palpitations, syncope, shortness of breath, trouble breathing, abdominal pain, n/v/d, blood in stool/urine, loss of control of bowel /bladder, urinary retention, muscle weakness/paralysis, saddle anesthesia, numbness/tingling, or other worsening symptoms that are concerning to you. Referrals: JOIE MOREIRA MD [Primary Care Provider] - 10/06/17
[2017-10-04] MEDS: HYDROMORPHONE HCL INJ/PF 2 MG/ML AMPULE IV PRN ×2 (21:30→23:18)
--- NOTE | 2017-10-04 21:30 | RADIOLOGY REPORT (SQ) ---
EXAM DESCRIPTION: CHEST SINGLE VIEW COMPLETED DATE/TIME: 10/04/2017 9:13 pm REASON FOR STUDY: chest pain, sickle cell COMPARISON: 09/28/2017 EXAM PARAMETERS: NUMBER OF VIEWS: One view. TECHNIQUE: Single frontal radiographic view of the chest acquired. RADIATION DOSE: NA LIMITATIONS: None. FINDINGS: LUNGS AND PLEURA: No opacities, masses or pneumothorax. No pleural effusion. MEDIASTINUM AND HILAR STRUCTURES: No masses. Contour normal. HEART AND VASCULAR STRUCTURES: Heart normal in size. Normal vasculature. BONES: Re- demonstration of H-shaped vertebral bodies in this patient with known sickle cell disease. HARDWARE: Right anterior chest wall Port-A-Cath demonstrate stable position. OTHER: No other significant finding. IMPRESSION: NO ACUTE RADIOGRAPHIC FINDING IN THE CHEST. TECHNICAL DOCUMENTATION: JOB ID: [id number] [employer]- All Rights Reserved Reading location - IP/workstation name: [email or web address]
[2017-10-04] MEDS: NORMAL SALINE 1000 ML 1,000 ML IV PRN ×2 (21:38→22:51)
[2017-10-04 21:48] LABS: ABSOLUTE RETICS # 0.217 10^6/uL (0.028-0.122); HEMATOCRIT 23.8 % (36.0-47.0); HEMOGLOBIN 8.8 g/dL (12.0-15.5); MEAN CORPUSCULAR VOLUME 103 fl (80-97); PLATELET COUNT 384 10^3/uL (150-450); RED BLOOD COUNT 2.31 10^6/uL (3.72-5.28); RED CELL DISTRIBUTION WIDTH 16.5 % (11.5-14.0); RETICULOCYTE COUNT (AUTO) 9.35 % (0.66-2.85)
[2017-10-04 21:55] LABS: APPEARANCE,URINE SLIGHTLY-CLOUDY; BILIRUBIN,URINE NEGATIVE (NEGATIVE); GLUCOSE, URINE NEGATIVE (NEGATIVE); KETONES,URINE NEGATIVE (NEGATIVE); LEUKOCYTE ESTERASE,URINE NEGATIVE (NEGATIVE); NITRITE,URINE NEGATIVE (NEGATIVE); PROTEIN,URINE 100 mg/dL (NEGATIVE); URINE SPECIFIC GRAVITY 1.013
[2017-10-04 21:56] LABS: COLOR,URINE YELLOW
[2017-10-04 22:08] LABS: ALANINE AMINOTRANSFERASE 34 U/L (9-52); ALKALINE PHOSPHATASE 75 U/L (38-126); ANION GAP 14 (5-19); ASPARTATE AMINO TRANSFERASE 51 U/L (14-36); BILIRUBIN,DIRECT 0.5 mg/dL (0.0-0.4); BLOOD UREA NITROGEN 8 mg/dL (7-20); CALCIUM 9.6 mg/dL (8.4-10.2); CARBON DIOXIDE 22 mmol/L (22-30); CHLORIDE 107 mmol/L (98-107); GLUCOSE 125 mg/dL (75-110); POTASSIUM 4.1 mmol/L (3.6-5.0); SODIUM 142.5 mmol/L (137-145); TOTAL PROTEIN 8.6 g/dL (6.3-8.2)
[2017-10-04 22:19] LABS: BASOPHILS % (MANUAL) 0 % (0-2); EOSINOPHILS % (MANUAL) 0 % (0-6); LYMPHOCYTES % (MANUAL) 4 % (13-45); MONOCYTES % (MANUAL) 3 % (3-13); NUCLEATED RED BLOOD CELLS 4 /100 WBC (0); SEGMENTED NEUTROPHILS % (MAN) 93 % (42-78); TOTAL CELLS COUNTED 100
[2017-10-04 22:23] LABS: ANISOCYTOSIS 2+; HYPOCHROMASIA 2+; POIKILOCYTOSIS 2+; POLYCHROMASIA SLIGHT
[2017-10-04 22:24] LABS: PLATELET COMMENT ADEQUATE; SCHISTOCYTES 1+; SICKLE RED CELLS 1+; TARGET CELLS 2+
[2017-10-04 22:25] LABS: WHITE BLOOD COUNT 26.7 10^3/uL (4.0-10.5)
[2017-10-05 00:29] VITALS: BP 102/50
--- NOTE | 2017-10-05 07:48 | EKG REPORT ---
SEVERITY:- NORMAL ECG - SINUS RHYTHM : Confirmed by: Kris Baker MD 05-Oct-2017 07:47:29
== END 2017-10-05 00:29 | disposition home or self-care (01) ==
LOC: ER 20:31
DX: D57.00 Hb-SS disease with crisis, unspecified (principal); M54.5 Low back pain; R07.9 Chest pain, unspecified; F17.200 Nicotine dependence, unspecified, uncomplicated
CPT/HCPCS: 93005; 36591; 96376; 99284; 96361; 96374; 96375; 36415; 84703; 85025; 85045; 80053; 81001; 84484; 71045; 93010; J1200; J1170; J7030

== ENCOUNTER 2017-10-06 11:30 | Inpatient (IN) | payer MEDICAID ==
[2017-10-06] MEDS ORDERED: FENTANYL CITRATE INJ/PF 100 MCG/2 ML AMPUL IV ONE (11:48)
[2017-10-06] MEDS ORDERED: NORMAL SALINE 1000 ML 1,000 ML IV ONE ×2 (11:48→14:07)
--- NOTE | 2017-10-06 11:51 | ER Document Report ---
ED Medical Screen (RME) - General Chief Complaint: Sickle Cell Crisis Stated Complaint: BACK PAIN, CHEST PAIN Time Seen by Provider: 10/06/17 11:44 Notes: RAPID MEDICAL EVALUATION DISCLOSURE I have seen this patient as part of a Rapid Medical Evaluation and, if applicable, placed any initially appropriate orders. The patient will be seen and fully evaluated, including a full history and physical exam, by a provider ( in Main ED or Fast Track) when a room becomes available. 22-year-old female PMH sickle cell here with complaints of left lower chest pain and bilateral lower back pain ongoing for the past 3 days. She has been taking ibuprofen for the pain but nothing else, she reports. She has not missed any doses of her hydroxyurea folic acid. 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 EXAM Minimally tachycardic CTAB Mild paraspinal lumbar muscle tenderness TRAVEL OUTSIDE OF THE [place] IN LAST 30 DAYS: No - Related Data Allergies/Adverse Reactions: morphine Allergy (Severe, Verified 10/06/17 11:48) RASH,SWELLING jacob peppers Adverse Reaction (Severe, Uncoded 10/06/17 11:48) throat closes Past Medical History - Social History Chew tobacco use (# tins/day): No Frequency of alcohol use: None Drug Abuse: None Family history: Reviewed & Not Pertinent, Other - Pt was adopted. Does not know family history - Past Medical History Cardiac Medical History: Reports: Hx DVT - RUE s/p port placement Denies: Hx Congestive Heart Failure, Hx Coronary Artery Disease, Hx Heart Attack, Hx Hypertension, Hx Pulmonary Embolism Pulmonary Medical History: Reports: Hx Bronchitis - once in past per patient, Hx Pneumonia - history in past per patient Denies: Hx Asthma, Hx COPD, Hx Tuberculosis Neurological Medical History: Denies: Hx Cerebrovascular Accident, Hx Migraine, Hx Seizures Endocrine Medical History: Denies: Hx Diabetes Mellitus Type 1, Hx Diabetes Mellitus Type 2, Hx Hyperthyroidism, Hx Hypothyroidism Renal/ Medical History: Denies: Hx End Stage Renal Disease, Hx Kidney Stones, Hx Peritoneal Dialysis GI Medical History: Denies: Hx Cirrhosis, Hx Gastroesophageal Reflux Disease, Hx Ulcer Musculoskeltal Medical History: Denies Hx Arthritis, Denies Hx Multiple Sclerosis, Reports Hx Musculoskeletal Trauma Psychiatric Medical History: Reports: Hx Anxiety, Hx Depression - anxiety Denies: Hx Bipolar Disorder, Hx Schizophrenia Past Surgical History: Reports: Hx Cholecystectomy - 06/28/2015, Hx Vascular Surgery - port put in December,, Other - Port-A-Cath in right upper chest - Immunizations Immunizations up to date: Yes Hx Diphtheria, Pertussis, Tetanus Vaccination: Yes History of Influenza Vaccine for 12/2016 - 05/2017 Season: Yes Influenza Administration Date for 12/2016 - 05/2017 Season: 03/11/18 Physical Exam - Vital signs Vitals: Temp Pulse Resp BP Pulse Ox 99.5 F 107 H 16 115/59 L 100 10/06/17 11:36 10/06/17 11:36 10/06/17 11:36 10/06/17 11:36 10/06/17 11:36 Course - Vital Signs Vital signs: Temp Pulse Resp BP Pulse Ox 99.5 F 107 H 16 115/59 L 100 10/06/17 11:36 10/06/17 11:36 10/06/17 11:36 10/06/17 11:36 10/06/17 11:36 Doctor's Discharge - Discharge Referrals: JOIE MOREIRA MD [Primary Care Provider] - Follow up as needed
--- NOTE | 2017-10-06 12:44 | RADIOLOGY REPORT (SQ) ---
EXAM DESCRIPTION: CHEST 2 VIEWS COMPLETED DATE/TIME: 10/06/2017 12:33 pm REASON FOR STUDY: sickle cell, c/o L lower chest pain COMPARISON: 09/15/2017 EXAM PARAMETERS: NUMBER OF VIEWS: two views TECHNIQUE: Digital Frontal and Lateral radiographic views of the chest acquired. RADIATION DOSE: NA LIMITATIONS: none FINDINGS: LUNGS AND PLEURA: No opacities, masses or pneumothorax. No pleural effusion. MEDIASTINUM AND HILAR STRUCTURES: No masses or contour abnormalities. HEART AND VASCULAR STRUCTURES: Heart normal size. No evidence for failure. BONES: The osseous structures are stable in appearance. HARDWARE: Right Oatmbl-L-Luge catheter, stable finding. OTHER: No other significant finding. IMPRESSION: 1 No significant interval change since the prior study dated 09/15/2017. No acute findin gLolly TECHNICAL DOCUMENTATION: JOB ID: [id number] [employer]- All Rights Reserved Reading location - IP/workstation name: [email or web address]
[2017-10-06] MEDS ORDERED: DIPHENHYDRAMINE HCL 50 MG/ML VIAL IV ONE (14:07)
[2017-10-06] MEDS ORDERED: HYDROMORPHONE HCL INJ/PF 2 MG/ML AMPULE IV ONE (14:17)
[2017-10-06 14:32] LABS: MEAN CORPUSCULAR HEMOGLOBIN 37.3 pg (27.0-33.4); MEAN CORPUSCULAR HGB CONC 36.1 g/dL (32.0-36.0); MEAN CORPUSCULAR VOLUME 103 fl (80-97); PLATELET COUNT 320 10^3/uL (150-450); RED BLOOD COUNT 1.84 10^6/uL (3.72-5.28); RED CELL DISTRIBUTION WIDTH 16.6 % (11.5-14.0); RETICULOCYTE COUNT (AUTO) 10.34 % (0.66-2.85); WHITE BLOOD COUNT 12.9 10^3/uL (4.0-10.5)
[2017-10-06 14:43] LABS: HEMOGLOBIN 6.9 g/dL (12.0-15.5)
[2017-10-06 14:49] LABS: ABSOLUTE LYMPHOCYTES# (MANUAL) 1.2 10^3/uL (0.5-4.7); ABSOLUTE MONOCYTES # (MANUAL) 0.9 10^3/uL (0.1-1.4); ABSOLUTE NEUTROPHILS# (MANUAL) 10.8 10^3/uL (1.7-8.2); BASOPHILS % (MANUAL) 0 % (0-2); EOSINOPHILS % (MANUAL) 0 % (0-6); HYPERSEGMENTED NEUTROPHILS PRESENT; LYMPHOCYTES % (MANUAL) 9 % (13-45); MONOCYTES % (MANUAL) 7 % (3-13); NUCLEATED RED BLOOD CELLS 4 /100 WBC (0); SEGMENTED NEUTROPHILS % (MAN) 84 % (42-78); TOTAL CELLS COUNTED 100; TOXIC GRANULATION SLIGHT
[2017-10-06 14:50] LABS: ANISOCYTOSIS 1+; HYPOCHROMASIA 2+; OVALOCYTES 1+; PLATELET COMMENT ADEQUATE; POIKILOCYTOSIS 3+; POLYCHROMASIA 2+; SCHISTOCYTES 1+; SICKLE RED CELLS 1+; TARGET CELLS 2+; TOXIC VACUOLATION PRESENT
[2017-10-06 14:56] LABS: ALANINE AMINOTRANSFERASE 29 U/L (9-52); ALBUMIN 3.6 g/dL (3.5-5.0); ALKALINE PHOSPHATASE 66 U/L (38-126); ANION GAP 9 (5-19); ASPARTATE AMINO TRANSFERASE 39 U/L (14-36); BILIRUBIN,DIRECT 1.3 mg/dL (0.0-0.4); BILIRUBIN,TOTAL 9.3 mg/dL (0.2-1.3); BLOOD UREA NITROGEN 5 mg/dL (7-20); CALCIUM 8.2 mg/dL (8.4-10.2); CARBON DIOXIDE 24 mmol/L (22-30); CHLORIDE 111 mmol/L (98-107); GLUCOSE 85 mg/dL (75-110); POTASSIUM 3.8 mmol/L (3.6-5.0); SODIUM 143.9 mmol/L (137-145); TOTAL PROTEIN 6.6 g/dL (6.3-8.2)
[2017-10-06] MEDS ORDERED: FUROSEMIDE INJ/PF 20 MG/2 ML SDV IV ONE (15:15)
[2017-10-06] MEDS ORDERED: NORMAL SALINE 250 ML IV PRN (15:15)
[2017-10-06] MEDS ORDERED: ACETAMINOPHEN 325 MG TABLET PO ONE (15:16)
--- NOTE | 2017-10-06 15:17 | ER Document Report ---
ED General - General Chief Complaint: Sickle Cell Crisis Stated Complaint: BACK PAIN, CHEST PAIN Time Seen by Provider: 10/06/17 11:44 Mode of Arrival: Ambulatory Information source: Patient Notes: Patient is a 22-year-old female with sickle cell disease who presents to the ER today for left-sided chest pain that started today. Patient denies any shortness of breath, nausea or vomiting. Patient admits to pain in her extremities as well. Patient was taking Tylenol and Motrin at home without relief. TRAVEL OUTSIDE OF THE [place] IN LAST 30 DAYS: No - Related Data Allergies/Adverse Reactions: morphine Allergy (Severe, Verified 10/06/17 11:48) RASH,SWELLING jacob peppers Adverse Reaction (Severe, Uncoded 10/06/17 11:48) throat closes Past Medical History - General Information source: Patient - Social History Smoking Status: Never Smoker Chew tobacco use (# tins/day): No Frequency of alcohol use: None Drug Abuse: None Family History: Other - Sickle cell Patient has suicidal ideation: No Patient has homicidal ideation: No - Past Medical History Cardiac Medical History: Reports: Hx DVT - RUE s/p port placement Denies: Hx Congestive Heart Failure, Hx Coronary Artery Disease, Hx Heart Attack, Hx Hypertension, Hx Pulmonary Embolism Pulmonary Medical History: Reports: Hx Bronchitis - once in past per patient, Hx Pneumonia - history in past per patient Denies: Hx Asthma, Hx COPD, Hx Tuberculosis Neurological Medical History: Denies: Hx Cerebrovascular Accident, Hx Migraine, Hx Seizures Endocrine Medical History: Denies: Hx Diabetes Mellitus Type 1, Hx Diabetes Mellitus Type 2, Hx Hyperthyroidism, Hx Hypothyroidism Renal/ Medical History: Denies: Hx End Stage Renal Disease, Hx Kidney Stones, Hx Peritoneal Dialysis GI Medical History: Denies: Hx Cirrhosis, Hx Gastroesophageal Reflux Disease, Hx Ulcer Musculoskeltal Medical History: Denies Hx Arthritis, Denies Hx Multiple Sclerosis, Reports Hx Musculoskeletal Trauma Psychiatric Medical History: Reports: Hx Anxiety, Hx Depression - anxiety Denies: Hx Bipolar Disorder, Hx Schizophrenia Past Surgical History: Reports: Hx Cholecystectomy - 06/28/2015, Hx Vascular Surgery - port put in December,, Other - Port-A-Cath in right upper chest - Immunizations Immunizations up to date: Yes Hx Diphtheria, Pertussis, Tetanus Vaccination: Yes Review of Systems - Review of Systems Constitutional: No symptoms reported EENT: No symptoms reported Cardiovascular: See HPI Respiratory: No symptoms reported Gastrointestinal: No symptoms reported Genitourinary: No symptoms reported Female Genitourinary: No symptoms reported Musculoskeletal: No symptoms reported Skin: No symptoms reported Hematologic/Lymphatic: No symptoms reported Neurological/Psychological: No symptoms reported Physical Exam - Vital signs Vitals: Temp Pulse Resp BP Pulse Ox 99.5 F 107 H 16 115/59 L 100 10/06/17 11:36 10/06/17 11:36 10/06/17 11:36 10/06/17 11:36 10/06/17 11:36 - Notes Notes: PHYSICAL EXAMINATION: GENERAL: Uncomfortable appearing, but in no acute distress. HEAD: Atraumatic, normocephalic. EYES: Pupils equal round and reactive to light, extraocular movements intact, sclera anicteric, conjunctiva are normal. NECK: Normal range of motion, supple without lymphadenopathy LUNGS: CTAB and equal. No wheezes rales or rhonchi. HEART: Chest tender to palpation, regular rate and rhythm without murmurs ABDOMEN: Soft, no tenderness. No guarding, no rebound BACK: no vertebral tenderness, normal ROM GI/: no CVA tenderness EXTREMITIES: Normal range of motion, no pitting edema. No cyanosis. NEUROLOGICAL: Cranial nerves grossly intact. Normal sensory/motor exams. PSYCH: Normal mood, normal affect. SKIN: Warm, Dry, normal turgor, no rashes or lesions noted Course - Re-evaluation Re-evalutation: 10/06/17 15:25 Patient has a slightly elevated white blood cell count at 12.5, low hemoglobin at 6.9, elevated absolute reticulocyte count 0.195, her troponin and chest x- ray are negative today. Her bilirubin is elevated, more so than usual. Dr. Ba accepts admission at this time for sickle cell crisis and anemia. Dr. Baum was consulted and wants 2 units of packed red blood cells. 10/06/17 18:33 10/06/17 18:33 - Vital Signs Vital signs: Temp Pulse Resp BP Pulse Ox 99.4 F 112 H 18 131/67 H 96 10/06/17 16:49 10/06/17 16:49 10/06/17 16:49 10/06/17 16:49 10/06/17 16:49 - Laboratory Result Diagrams: 10/06/17 14:14 10/06/17 14:14 Laboratory results interpreted by me: 10/06/17 10/06/17 14:14 14:14 WBC 12.9 H RBC 1.84 L Hgb 6.9 L Hct 19.0 L MCV 103 H MCH 37.3 H MCHC 36.1 H RDW 16.6 H Seg Neuts % (Manual) 84 H Lymphocytes % (Manual) 9 L Abs Neuts (Manual) 10.8 H Retic Count (auto) 10.34 H Absolute Retic 0.190 H Chloride 111 H BUN 5 L Creatinine 0.49 L Calcium 8.2 L Total Bilirubin 9.3 H Direct Bilirubin 1.3 H AST 39 H Discharge - Discharge Clinical Impression: Sickle cell pain crisis Sickle cell anemia Qualifiers: Sickle-cell associated disorders: with unspecified crisis Qualified Code(s): D57.00 - Hb-SS disease with crisis, unspecified Condition: Stable Disposition: ADMITTED INPATIENT Admitting Provider: Hospitalist - [facility] Unit Admitted: Medical Floor
[2017-10-06] MEDS ORDERED: ONDANSETRON HCL INJ/PF 4 MG/2 ML SDV IV PRN (16:29)
[2017-10-06] MEDS ORDERED: ALBUTEROL SULFATE 0.083% NEB 2.5 MG/3 ML AMPUL NEB PRN (16:29)
[2017-10-06] MEDS: HYDROMORPHONE HCL INJ/PF 2 MG/ML AMPULE IV PRN ×2 (16:52→22:06)
--- NOTE | 2017-10-06 17:04 | PDOC H&P ---
History of Present Illness Admission Date/PCP: 10/06/17 15:40 JOIE MOREIRA MD Patient complains of: Generalized aches and pain and chest pain History of Present Illness: CASSANDRA MIDDLETON is a 22 year old female presents emergency room with complaints of chest pain and upper extremity pain patient does have a history of sickle cell disease. She says the pain is similar to her usual crisis pattern. She was last admitted in August where she spent about 5 days both here at this hospital as well as vitamins. She says she has been noncompliant with her medications and instructions. Her hemoglobin was found to be 6.9 today and she says usually her hemoglobin globin is around 8. Dr. Moreira has been consulted and he recommends transfusion of 2 units of packed red blood cells. There is no evidence of any acute infection. No dysuria frequency cough abdominal pain or any other pertinent complaints Past Medical History Cardiac Medical History: Reports: DVT - RUE s/p port placement Denies: Congestive Heart Failure, Coronary Artery Disease, Myocardial Infarction, Hypertension, Pulmonary Embolism Pulmonary Medical History: Reports: Bronchitis - once in past per patient, Pneumonia - history in past per patient Denies: Asthma, Chronic Obstructive Pulmonary Disease (COPD), Tuberculosis Neurological Medical History: Denies: Migraine, Seizures Endocrine Medical History: Denies: Diabetes Mellitus Type 1, Diabetes Mellitus Type 2, Hyperthyroidism, Hypothyroidism Renal/ Medical History: Denies: End Stage Renal Disease GI Medical History: Denies: Cirrhosis, Gastroesophageal Reflux Disease Musculoskeltal Medical History: Denies: Arthritis Psychiatric Medical History: Reports: Depression - anxiety Denies: Bipolar Disorder Hematology: Reports: Anemia - Sickle cell, Sickle Cell Disease Denies: Bleeding Tendencies Past Surgical History Past Surgical History: Reports: Cholecystectomy - 06/28/2015, Vascular Surgery - port put in December,, Other - Port-A-Cath in right upper chest Social History Information Source: Patient Smoking Status: Never Smoker Frequency of Alcohol Use: None Hx Recreational Drug Use: No Drugs: None Hx Prescription Drug Abuse: No Family History Family History: Other - Unknown patient adopted Parental Family History Reviewed: Yes Children Family History Reviewed: NA Sibling(s) Family History Reviewed.: NA Medication/Allergy Allergies/Adverse Reactions: morphine Allergy (Severe, Verified 10/06/17 11:48) RASH,SWELLING jacob peppers Adverse Reaction (Severe, Uncoded 07/09/18 11:48) throat closes Review of Systems All systems: reviewed and no additional remarkable complaints except as stated Physical Exam Vital Signs: Temp Pulse Resp BP Pulse Ox 99.5 F 107 H 16 115/59 L 100 10/06/17 11:36 10/06/17 11:36 10/06/17 11:36 10/06/17 11:36 10/06/17 11:36 General appearance: PRESENT: no acute distress, thin Head exam: PRESENT: atraumatic, normocephalic Eye exam: PRESENT: conjunctiva pale, EOMI, PERRLA. ABSENT: scleral icterus Ear exam: PRESENT: normal external ear exam Mouth exam: PRESENT: moist, tongue midline Neck exam: ABSENT: carotid bruit, JVD, lymphadenopathy, thyromegaly Respiratory exam: PRESENT: clear to auscultation samaria. ABSENT: rales, rhonchi, wheezes Cardiovascular exam: PRESENT: +S1, +S2. ABSENT: diastolic murmur, rubs, systolic murmur Pulses: PRESENT: normal dorsalis pedis pul Vascular exam: PRESENT: normal capillary refill GI/Abdominal exam: PRESENT: normal bowel sounds, soft. ABSENT: distended, guarding, mass, organolmegaly, rebound, tenderness Rectal exam: PRESENT: deferred Extremities exam: PRESENT: full ROM. ABSENT: calf tenderness, clubbing, pedal edema Neurological exam: PRESENT: alert, awake, oriented to person, oriented to place , oriented to time, oriented to situation, CN II-XII grossly intact. ABSENT: motor sensory deficit Psychiatric exam: PRESENT: appropriate affect, normal mood. ABSENT: homicidal ideation, suicidal ideation Skin exam: PRESENT: dry, intact, warm. ABSENT: cyanosis, rash Results Laboratory Results: 10/06/17 14:14 10/06/17 14:14 MCV 103 fl (80-97) H 10/06/17 14:14 MCH 37.3 pg (27.0-33.4) H 10/06/17 14:14 MCHC 36.1 g/dL (32.0-36.0) H 10/06/17 14:14 RDW 16.6 % (11.5-14.0) H 10/06/17 14:14 Seg Neutrophils % Not Reportable 10/06/17 14:14 Lymphocytes % Not Reportable 10/06/17 14:14 Monocytes % Not Reportable 10/06/17 14:14 Eosinophils % Not Reportable 10/06/17 14:14 Basophils % Not Reportable 10/06/17 14:14 Absolute Neutrophils Not Reportable 10/06/17 14:14 Absolute Lymphocytes Not Reportable 10/06/17 14:14 Absolute Monocytes Not Reportable 10/06/17 14:14 Absolute Eosinophils Not Reportable 10/06/17 14:14 Absolute Basophils Not Reportable 10/06/17 14:14 Retic Count (auto) 10.34 % (0.66-2.85) H 10/06/17 14:14 Absolute Retic 0.190 10^6/uL (0.028-0.122) H 10/06/17 14:14 Chloride 111 mmol/L (98-107) H 10/06/17 14:14 Carbon Dioxide 24 mmol/L (22-30) 10/06/17 14:14 Anion Gap 9 (5-19) 10/06/17 14:14 Est GFR ( Amer) > 60 (>60) 10/06/17 14:14 Est GFR (Non-Af Amer) > 60 (>60) 10/06/17 14:14 Glucose 85 mg/dL (75-110) 10/06/17 14:14 Calcium 8.2 mg/dL (8.4-10.2) L 10/06/17 14:14 Total Bilirubin 9.3 mg/dL (0.2-1.3) H 10/06/17 14:14 AST 39 U/L (14-36) H 10/06/17 14:14 ALT 29 U/L (9-52) 10/06/17 14:14 Alkaline Phosphatase 66 U/L (38-126) 10/06/17 14:14 Total Protein 6.6 g/dL (6.3-8.2) 10/06/17 14:14 Albumin 3.6 g/dL (3.5-5.0) 10/06/17 14:14 10/06/17 14:14 Troponin I < 0.012 Impressions: Chest X-Ray 10/06/17 11:49 IMPRESSION: 1 No significant interval change since the prior study dated 2017. No acute finding. Assessment & Plan - Diagnosis (1) Sickle cell anemia Qualifiers: Sickle-cell associated disorders: with unspecified crisis Qualified Code(s) : D57.00 - Hb-SS disease with crisis, unspecified; D57.0 - Hb-SS disease with crisis Is this a current diagnosis for this admission?: Yes Plan: Patient will be treated with aggressive IV fluid hydration as well as blood transfusion and pain management. Hematology consult has been obtained. Other interventions will depend on patient's ultimate hospital course - Time Time Spent: 30 to 50 Minutes Medications reviewed and adjusted accordingly: Yes Anticipated discharge: Home Within: within 48 hours
[2017-10-06] MEDS: OXYCODONE-ACETAMINOPHEN 5-325 MG TABLET PO PRN (18:33)
[2017-10-06] MEDS: DIPHENHYDRAMINE HCL 25 MG CAPSULE PO PRN (22:05)
[2017-10-06] MEDS ORDERED: ARIPIPRAZOLE 5 MG TABLET PO ONE (23:00)
[2017-10-06] MEDS: ACETAMINOPHEN 325 MG TABLET PO PRN (23:34)
[2017-10-06] MEDS: TEMAZEPAM 7.5 MG CAPSULE PO PRN (23:49)
[2017-10-07] MEDS: DIPHENHYDRAMINE HCL 25 MG CAPSULE PO PRN ×5 (03:02→23:27)
[2017-10-07] MEDS: HYDROMORPHONE HCL INJ/PF 2 MG/ML AMPULE IV PRN ×6 (03:02→23:09)
[2017-10-07] MEDS: OXYCODONE-ACETAMINOPHEN 5-325 MG TABLET PO PRN (05:51)
[2017-10-07 06:45] LABS: HEMATOCRIT 25.2 % (36.0-47.0); MEAN CORPUSCULAR HEMOGLOBIN 35.5 pg (27.0-33.4); MEAN CORPUSCULAR HGB CONC 36.5 g/dL (32.0-36.0); PLATELET COUNT 299 10^3/uL (150-450); RED BLOOD COUNT 2.59 10^6/uL (3.72-5.28); RED CELL DISTRIBUTION WIDTH 18.4 % (11.5-14.0); WHITE BLOOD COUNT 12.2 10^3/uL (4.0-10.5)
[2017-10-07 07:05] LABS: HEMOGLOBIN 9.2 g/dL (12.0-15.5); MEAN CORPUSCULAR VOLUME 97 fl (80-97)
[2017-10-07] MEDS ORDERED: SENNOSIDES/DOCUSATE 8.6-50 MG 1 EACH TABLET PO PRN (08:17)
[2017-10-07] MEDS ORDERED: POLYETHYLENE GLYCOL 3350 POWDER 17 GM/1 PACKET PO PRN (08:17)
[2017-10-07] MEDS: DEXTROSE 5%-1/2 NORMAL SALINE 1,000 ML IV PRN ×3 (08:19→19:53)
--- NOTE | 2017-10-07 08:33 | PDOC CONSULTATION ---
Consultation Consult Date: 10/07/17 Attending physician:: BRAULIO SEXTON Consult reason:: Sickle cell dx here w/ crisis History of Present Illness Admission Date/PCP: 10/06/17 15:40 JOIE MOREIRA MD Patient complains of: Pain, chest pain, SOB, weakness History of Present Illness: CASSANDRA MIDDLETON is a 22 year old female with known history of sickle cell disease here with crisis, her major complaint has been shortness of breath and chest pain, unfortunately she has had ongoing crisis now for about 6-8 weeks. She had a hospitalization last week with crisis, improved and was discharged home but still had a lot of pain thereafter. Her hemoglobin dropped in the 6 range, we gave her 2 units of packed red blood cells and it is in the 9 range now. She is on Dilaudid but requiring it every 2 hours, currently it is ordered every 4 hours. She has not had a bowel movement in several days, we discussed bowel regimen. Past Medical History Cardiac Medical History: Reports: DVT - RUE s/p port placement Denies: Congestive Heart Failure, Coronary Artery Disease, Myocardial Infarction, Hypertension, Pulmonary Embolism Pulmonary Medical History: Reports: Bronchitis - once in past per patient, Pneumonia - history in past per patient Denies: Asthma, Chronic Obstructive Pulmonary Disease (COPD), Tuberculosis Neurological Medical History: Denies: Migraine, Seizures Endocrine Medical History: Denies: Diabetes Mellitus Type 1, Diabetes Mellitus Type 2, Hyperthyroidism, Hypothyroidism Renal/ Medical History: Denies: End Stage Renal Disease GI Medical History: Denies: Cirrhosis, Gastroesophageal Reflux Disease Musculoskeltal Medical History: Denies: Arthritis Psychiatric Medical History: Reports: Depression - anxiety Denies: Bipolar Disorder Hematology: Reports: Anemia - Sickle cell, Sickle Cell Disease Denies: Bleeding Tendencies Past Surgical History Past Surgical History: Reports: Cholecystectomy - 06/28/2015, Vascular Surgery - port put in December,, Other - Port-A-Cath in right upper chest Social History Information Source: Patient Smoking Status: Never Smoker Frequency of Alcohol Use: None Hx Recreational Drug Use: No Drugs: None Hx Prescription Drug Abuse: No - Advance Directive Resuscitation Status: Full Code Family History Family History: Other - Sickle cell Parental Family History Reviewed: Yes Children Family History Reviewed: Yes Sibling(s) Family History Reviewed.: Yes Medication/Allergy Home Medications: Albuterol Sulfate [Proair HFA Inhalation Aerosol 8.5 gm MDI] 1 puff IH Q4HP PRN 10/06/17 Aripiprazole [Abilify 15 mg Tablet] 15 mg PO QHS 10/06/17 Escitalopram Oxalate [Lexapro] 5 mg PO QHS 10/06/17 Hydroxyzine HCl [Atarax 25 mg Tablet] 25 mg PO Q8HP PRN 10/06/17 Oxycodone HCl [Oxy-Ir 5 mg Tablet] 5 mg PO Q6HP PRN 10/06/17 Rivaroxaban [Xarelto] 20 mg PO Q12 10/06/17 Zolpidem Tartrate [Ambien] 10 mg PO QHS 10/06/17 Allergies/Adverse Reactions: morphine Allergy (Severe, Verified 10/06/17 11:48) RASH,SWELLING jacob peppers Adverse Reaction (Severe, Uncoded 10/06/17 11:48) throat closes Review of Systems Constitutional: ABSENT: chills, fever(s), headache(s), weight gain, weight loss Eyes: ABSENT: visual disturbances Ears: ABSENT: hearing changes Cardiovascular: ABSENT: chest pain, dyspnea on exertion, edema, orthropnea, palpitations Respiratory: ABSENT: cough, hemoptysis Gastrointestinal: ABSENT: abdominal pain, constipation, diarrhea, hematemesis, hematochezia, nausea, vomiting Genitourinary: ABSENT: dysuria, hematuria Musculoskeletal: ABSENT: joint swelling Integumentary: ABSENT: rash, wounds Neurological: ABSENT: abnormal gait, abnormal speech, confusion, dizziness, focal weakness, syncope Psychiatric: ABSENT: anxiety, depression, homidical ideation, suicidal ideation Endocrine: ABSENT: cold intolerance, heat intolerance, polydipsia, polyuria Hematologic/Lymphatic: ABSENT: easy bleeding, easy bruising Physical Exam Vital Signs: Temp Pulse Resp BP Pulse Ox 99.4 F 88 18 109/51 L 96 10/07/17 07:57 10/07/17 07:57 10/07/17 07:57 10/07/17 07:57 10/07/17 07:57 Intake & Output 10/06/17 10/07/17 10/08/17 06:59 06:59 06:59 Intake Total 825 Balance 825 Weight 57.8 kg General appearance: PRESENT: no acute distress, well-developed, well-nourished Head exam: PRESENT: atraumatic, normocephalic Eye exam: PRESENT: conjunctiva pink, EOMI, PERRLA. ABSENT: scleral icterus Ear exam: PRESENT: normal external ear exam Mouth exam: PRESENT: moist, tongue midline Neck exam: ABSENT: carotid bruit, JVD, lymphadenopathy, thyromegaly Respiratory exam: PRESENT: clear to auscultation samaria. ABSENT: rales, rhonchi, wheezes Cardiovascular exam: PRESENT: RRR. ABSENT: diastolic murmur, rubs, systolic murmur Pulses: PRESENT: normal dorsalis pedis pul Vascular exam: PRESENT: normal capillary refill GI/Abdominal exam: PRESENT: normal bowel sounds, soft. ABSENT: distended, guarding, mass, organolmegaly, rebound, tenderness Rectal exam: PRESENT: deferred Extremities exam: PRESENT: full ROM. ABSENT: calf tenderness, clubbing, pedal edema Neurological exam: PRESENT: alert, awake, oriented to person, oriented to place , oriented to time, oriented to situation, CN II-XII grossly intact. ABSENT: motor sensory deficit Psychiatric exam: PRESENT: appropriate affect, normal mood. ABSENT: homicidal ideation, suicidal ideation Skin exam: PRESENT: dry, intact, warm. ABSENT: cyanosis, rash Results Laboratory Results: 10/07/17 05:28 10/06/17 10/07/17 16:00 05:28 WBC 12.2 H RBC 2.59 L Hgb 9.2 L D Hct 25.2 L MCV 97 D MCH 35.5 H MCHC 36.5 H RDW 18.4 H Plt Count 299 Blood Type O POSITIVE Antibody Screen NEGATIVE Impressions: Chest X-Ray 10/06/17 11:49 IMPRESSION: 1 No significant interval change since the prior study dated 2017. No acute finding. Assessment & Plan - Diagnosis (1) Sickle cell pain crisis Is this a current diagnosis for this admission?: Yes Plan: She is having a true sickle cell pain crisis, she is having chest pain so I am going to order a CT of the chest no contrast, to ensure there is no chest crisis ongoing. I will increase her Dilaudid, add K pad for comfort, add bowel regimen. Continue with aggressive hydration. (2) Sickle cell anemia Qualifiers: Sickle-cell associated disorders: with unspecified crisis Qualified Code(s) : D57.00 - Hb-SS disease with crisis, unspecified; D57.0 - Hb-SS disease with crisis Is this a current diagnosis for this admission?: Yes Plan: Anemia secondary to sickle cell disease, hemoglobin is stable now, continue to monitor. - Time Time Spent: Greater than 70 Minutes - Inpatient Certification Based on my medical assessment, after consideration of the patient's comorbidities, presenting symptoms, or acuity I expect that the services needed warrant INPATIENT care.: Yes I certify that my determination is in accordance with my understanding of Medicare's requirements for reasonable and necessary INPATIENT services [42 CFR 412.3e].: Yes Medical Necessity: Need For IV Fluids, Need for Pain Control
--- NOTE | 2017-10-07 09:26 | RADIOLOGY REPORT (SQ) ---
EXAM DESCRIPTION: CT CHEST WITHOUT COMPLETED DATE/TIME: 10/07/2017 9:02 am REASON FOR STUDY: CP,SOB COMPARISON: Two-view chest 10/06/2017 CT chest 09/26/2016, 07/02/2015 TECHNIQUE: CT scan performed of the chest without intravenous contrast. Images reviewed with lung, soft tissue and bone windows. Reconstructed coronal and sagittal MPR images reviewed. All images st ored on PACS. All CT scanners at this facility use dose modulation, iterative reconstruction, and/or weight based d osing when appropriate to reduce radiation dose to as low as reasonably achievable (ALARA). [facility]: Dose Right [facility]: CareDose [facility]: Dose Right [facility]: Teradose 4D [facility]: IKO System RADIATION DOSE: CT Rad equipment meets quality standard of care and radiation dose reduction techniq ues were employed. CTDIvol: 3.8 mGy. DLP: 120 mGy-cm. mGy. LIMITATIONS: No technical limitations. FINDINGS: LUNGS AND PLEURA: Bibasilar atelectasis and trace pleural fluid is present in the right an d left posterior costophrenic sulci. No dense consolidation worrisome for pneumonia. No pulmonary edema. No pneumothorax. HILAR AND MEDIASTINAL STRUCTURES: No identified masses or abnormal nodes. No obvious aneurysm. HEART AND VASCULAR STRUCTURES: No aneurysm. No pericardial effusion. UPPER ABDOMEN: Tiny calcified spleen THYROID AND OTHER SOFT TISSUES: No masses. No adenopathy. BONES: Characteristic biconcave vertebral body endplate compressions, diffuse bony sclerosis from pat ient's sickle cell HARDWARE: Right-sided permanent central line tip superior vena cava OTHER: No other significant findings. IMPRESSION: Minimal bibasilar atelectasis with trace pleural fluid in the bilateral posterior lung b ases TECHNICAL DOCUMENTATION: JOB ID: [id number] Quality ID # [id number]: Final reports with documentation of one or more dose reduction techniques (e.g., Au tomated exposure control, adjustment of the mA and/or kV according to patient size, use of iterative reconstruction technique) 2010 [employer]- All Rights Reserved Reading location - IP/workstation name: [email or web address]
[2017-10-07] MEDS: DOCUSATE SODIUM 100 MG CAPSULE PO SCH (11:29)
[2017-10-07] MEDS: ACETAMINOPHEN 325 MG TABLET PO PRN ×2 (16:21→20:04)
--- NOTE | 2017-10-07 16:31 | PDOC PROGRESS REPORT ---
Subjective Progress Note for:: 10/07/17 Subjective:: Patient states he feels minimally improved. Still complaining of pain in left chest wall. CT scan done today reveals minimal basilar atelectasis Reason For Visit: SICKLE CELL DISEASE ANEMIA Physical Exam Vital Signs: Temp Pulse Resp BP Pulse Ox 100.1 F 73 20 119/63 99 10/07/17 11:32 10/07/17 13:33 10/07/17 13:33 10/07/17 11:32 10/07/17 13:33 Intake & Output 10/06/17 10/07/17 10/08/17 06:59 06:59 06:59 Intake Total 825 Balance 825 Weight 57.8 kg General appearance: PRESENT: no acute distress Head exam: PRESENT: atraumatic, normocephalic Eye exam: PRESENT: conjunctiva pink, EOMI, PERRLA. ABSENT: scleral icterus Ear exam: PRESENT: normal external ear exam Mouth exam: PRESENT: moist, tongue midline Neck exam: ABSENT: carotid bruit, JVD, lymphadenopathy, thyromegaly Respiratory exam: PRESENT: clear to auscultation samaria. ABSENT: rales, rhonchi, wheezes Cardiovascular exam: PRESENT: RRR. ABSENT: diastolic murmur, rubs, systolic murmur Pulses: PRESENT: normal dorsalis pedis pul Vascular exam: PRESENT: normal capillary refill GI/Abdominal exam: PRESENT: normal bowel sounds, soft. ABSENT: distended, guarding, mass, organolmegaly, rebound, tenderness Rectal exam: PRESENT: deferred Extremities exam: PRESENT: full ROM. ABSENT: calf tenderness, clubbing, pedal edema Neurological exam: PRESENT: alert, awake, oriented to person, oriented to place , oriented to time, oriented to situation, CN II-XII grossly intact. ABSENT: motor sensory deficit Psychiatric exam: PRESENT: appropriate affect, normal mood. ABSENT: homicidal ideation, suicidal ideation Skin exam: PRESENT: dry, intact, warm. ABSENT: cyanosis, rash Results Laboratory Results: 10/07/17 05:28 10/06/17 10/07/17 16:00 05:28 WBC 12.2 H RBC 2.59 L Hgb 9.2 L D Hct 25.2 L MCV 97 D MCH 35.5 H MCHC 36.5 H RDW 18.4 H Plt Count 299 Blood Type O POSITIVE Antibody Screen NEGATIVE Impressions: Chest X-Ray 10/06/17 11:49 IMPRESSION: 1 No significant interval change since the prior study dated 2017. No acute finding. Chest CT 10/07/17 00:00 IMPRESSION: Minimal bibasilar atelectasis with trace pleural fluid in the bilateral posterior lung bases Assessment & Plan - Diagnosis (1) Sickle cell anemia Qualifiers: Sickle-cell associated disorders: with unspecified crisis Qualified Code(s) : D57.00 - Hb-SS disease with crisis, unspecified; D57.0 - Hb-SS disease with crisis Is this a current diagnosis for this admission?: Yes Plan: She is status post 2 units of packed red blood cells and hemoglobin is improved. We will continue to monitor. (2) Sickle cell pain crisis Is this a current diagnosis for this admission?: Yes Plan: Continue pain management as well as hydration and bowel regimen
[2017-10-07] MEDS: ARIPIPRAZOLE 5 MG TABLET PO SCH (23:03)
[2017-10-08] MEDS: TEMAZEPAM 7.5 MG CAPSULE PO PRN (00:05)
[2017-10-08] MEDS: HYDROMORPHONE HCL INJ/PF 2 MG/ML AMPULE IV PRN ×9 (02:09→22:52)
[2017-10-08] MEDS: DIPHENHYDRAMINE HCL 25 MG CAPSULE PO PRN ×4 (03:40→18:14)
[2017-10-08 07:24] LABS: ABSOLUTE BASOPHILS # (AUTO) 0.1 10^3/uL (0.0-0.2); ABSOLUTE EOSINOPHILS # (AUTO) 0.2 10^3/uL (0.0-0.6); ABSOLUTE LYMPHOCYTES (AUTO) 1.8 10^3/uL (0.5-4.7); ABSOLUTE MONOCYTES (AUTO) 1.4 10^3/uL (0.1-1.4); ABSOLUTE NEUT (AUTO) 10.6 10^3/uL (1.7-8.2); BASOPHILS % (AUTO) 0.6 % (0-2); EOSINOPHILS % (AUTO) 1.5 % (0-6); HEMATOCRIT 23.7 % (36.0-47.0); HEMOGLOBIN 8.6 g/dL (12.0-15.5); LYMPHOCYTES % (AUTO) 12.8 % (13-45); MEAN CORPUSCULAR HEMOGLOBIN 35.3 pg (27.0-33.4); MEAN CORPUSCULAR VOLUME 98 fl (80-97); MONOCYTES % (AUTO) 10.2 % (3-13); PLATELET COUNT 327 10^3/uL (150-450); RED BLOOD COUNT 2.42 10^6/uL (3.72-5.28); SEGMENTED NEUTROPHILS % (AUTO) 74.9 % (42-78); TOTAL CELLS COUNTED % (AUTO) 100 %; WHITE BLOOD COUNT 14.1 10^3/uL (4.0-10.5)
--- NOTE | 2017-10-08 08:03 | PDOC PROGRESS REPORT ---
Subjective Progress Note for:: 10/08/17 Subjective:: Pt still w. considerable pain, she only received 4 doses IV pain meds yesterday but tells me she did not want to bother the nurses. CT chest reviewed, no chest syndrome, chest pain related to sickling in bones. Told pt will inc dilaudid to 3mg IV q 2 hours prn. Told her she will need 4-5 more days inpt most likely to resolve this crisis. Reason For Visit: SICKLE CELL DISEASE ANEMIA Physical Exam Vital Signs: Temp Pulse Resp BP Pulse Ox 98.8 F 65 16 109/50 L 97 10/08/17 00:01 10/08/17 00:01 10/08/17 00:01 10/08/17 00:01 10/08/17 00:01 Intake & Output 10/07/17 10/08/17 10/09/17 06:59 06:59 06:59 Intake Total 825 1671 Balance 825 1671 Weight 57.8 kg 58.2 kg General appearance: PRESENT: no acute distress, well-developed, well-nourished Head exam: PRESENT: atraumatic, normocephalic Eye exam: PRESENT: conjunctiva pink, EOMI, PERRLA. ABSENT: scleral icterus Ear exam: PRESENT: normal external ear exam Mouth exam: PRESENT: moist, tongue midline Neck exam: ABSENT: carotid bruit, JVD, lymphadenopathy, thyromegaly Respiratory exam: PRESENT: clear to auscultation samaria. ABSENT: rales, rhonchi, wheezes Cardiovascular exam: PRESENT: RRR. ABSENT: diastolic murmur, rubs, systolic murmur Pulses: PRESENT: normal dorsalis pedis pul Vascular exam: PRESENT: normal capillary refill GI/Abdominal exam: PRESENT: normal bowel sounds, soft. ABSENT: distended, guarding, mass, organolmegaly, rebound, tenderness Rectal exam: PRESENT: deferred Extremities exam: PRESENT: full ROM. ABSENT: calf tenderness, clubbing, pedal edema Neurological exam: PRESENT: alert, awake, oriented to person, oriented to place , oriented to time, oriented to situation, CN II-XII grossly intact. ABSENT: motor sensory deficit Psychiatric exam: PRESENT: appropriate affect, normal mood. ABSENT: homicidal ideation, suicidal ideation Skin exam: PRESENT: dry, intact, warm. ABSENT: cyanosis, rash Results Laboratory Results: 10/08/17 05:36 10/08/17 05:36 WBC 14.1 H RBC 2.42 L Hgb 8.6 L Hct 23.7 L MCV 98 H MCH 35.3 H MCHC 36.0 RDW 18.0 H Plt Count 327 Seg Neutrophils % 74.9 Lymphocytes % 12.8 L Monocytes % 10.2 Eosinophils % 1.5 Basophils % 0.6 Absolute Neutrophils 10.6 H Absolute Lymphocytes 1.8 Absolute Monocytes 1.4 Absolute Eosinophils 0.2 Absolute Basophils 0.1 Impressions: Chest X-Ray 10/06/17 11:49 IMPRESSION: 1 No significant interval change since the prior study dated 2017. No acute finding. Chest CT 10/07/17 00:00 IMPRESSION: Minimal bibasilar atelectasis with trace pleural fluid in the bilateral posterior lung bases Assessment & Plan - Diagnosis (1) Sickle cell pain crisis Is this a current diagnosis for this admission?: Yes Plan: Inc IV pain meds, will need cont aggressive pain management. Will con't other measures (2) Sickle cell anemia Qualifiers: Sickle-cell associated disorders: with unspecified crisis Qualified Code(s) : D57.00 - Hb-SS disease with crisis, unspecified; D57.0 - Hb-SS disease with crisis Is this a current diagnosis for this admission?: Yes Plan: Hb 8 range, cont to monitor, will transfuse for 7 or less - Time Time Spent with patient: 35 or more minutes Disposition: Today spent long discussion w/ pt that she has to be her own advocate while inpt. She voiced understanding. - Inpatient Certification Based on my medical assessment, after consideration of the patient's comorbidities, presenting symptoms, or acuity I expect that the services needed warrant INPATIENT care.: Yes I certify that my determination is in accordance with my understanding of Medicare's requirements for reasonable and necessary INPATIENT services [42 CFR 412.3e].: Yes Medical Necessity: Need For IV Fluids, Need for Pain Control
[2017-10-08] MEDS: DEXTROSE 5%-1/2 NORMAL SALINE 1,000 ML IV PRN ×2 (10:24→17:23)
[2017-10-08] MEDS: DOCUSATE SODIUM 100 MG CAPSULE PO SCH (10:24)
--- NOTE | 2017-10-08 14:43 | PDOC PROGRESS REPORT ---
Subjective Progress Note for:: 10/08/17 Subjective:: Patient states she is feeling better. Chest pain is improved. Reason For Visit: SICKLE CELL DISEASE ANEMIA Physical Exam Vital Signs: Temp Pulse Resp BP Pulse Ox 100.4 F 82 16 112/45 L 98 10/08/17 11:34 10/08/17 11:34 10/08/17 11:34 10/08/17 11:34 10/08/17 11:34 Intake & Output 10/07/17 10/08/17 10/09/17 06:59 06:59 06:59 Intake Total 825 1671 1455 Balance 825 1671 1455 Weight 57.8 kg 58.2 kg General appearance: PRESENT: no acute distress, well-nourished Head exam: PRESENT: atraumatic, normocephalic Eye exam: PRESENT: conjunctiva pink, EOMI, PERRLA. ABSENT: scleral icterus Ear exam: PRESENT: normal external ear exam Mouth exam: PRESENT: moist, tongue midline Neck exam: ABSENT: carotid bruit, JVD, lymphadenopathy, thyromegaly Respiratory exam: PRESENT: clear to auscultation samaria. ABSENT: rales, rhonchi, wheezes Cardiovascular exam: PRESENT: RRR. ABSENT: diastolic murmur, rubs, systolic murmur Pulses: PRESENT: normal dorsalis pedis pul Vascular exam: PRESENT: normal capillary refill GI/Abdominal exam: PRESENT: normal bowel sounds, soft. ABSENT: distended, guarding, mass, organolmegaly, rebound, tenderness Rectal exam: PRESENT: deferred Extremities exam: PRESENT: full ROM. ABSENT: calf tenderness, clubbing, pedal edema Musculoskeletal exam: PRESENT: other - Minimal chest wall tenderness Neurological exam: PRESENT: alert, awake, oriented to person, oriented to place , oriented to time, oriented to situation, CN II-XII grossly intact. ABSENT: motor sensory deficit Psychiatric exam: PRESENT: appropriate affect, normal mood. ABSENT: homicidal ideation, suicidal ideation Skin exam: PRESENT: dry, intact, warm. ABSENT: cyanosis, rash Results Laboratory Results: 10/08/17 05:36 10/08/17 05:36 WBC 14.1 H RBC 2.42 L Hgb 8.6 L Hct 23.7 L MCV 98 H MCH 35.3 H MCHC 36.0 RDW 18.0 H Plt Count 327 Seg Neutrophils % 74.9 Lymphocytes % 12.8 L Monocytes % 10.2 Eosinophils % 1.5 Basophils % 0.6 Absolute Neutrophils 10.6 H Absolute Lymphocytes 1.8 Absolute Monocytes 1.4 Absolute Eosinophils 0.2 Absolute Basophils 0.1 Impressions: Chest X-Ray 10/06/17 11:49 IMPRESSION: 1 No significant interval change since the prior study dated 2017. No acute finding. Chest CT 10/07/17 00:00 IMPRESSION: Minimal bibasilar atelectasis with trace pleural fluid in the bilateral posterior lung bases Assessment & Plan - Diagnosis (1) Sickle cell anemia Qualifiers: Sickle-cell associated disorders: with unspecified crisis Qualified Code(s) : D57.00 - Hb-SS disease with crisis, unspecified; D57.0 - Hb-SS disease with crisis Is this a current diagnosis for this admission?: Yes Plan: She is status post 2 units of packed red blood cells. Will follow up on H&H and check reticulocyte count (2) Sickle cell pain crisis Is this a current diagnosis for this admission?: Yes Plan: Continue aggressive fluid hydration and pain management - Time Time Spent with patient: 15-24 minutes Medications reviewed and adjusted accordingly: Yes Anticipated discharge: Home Within: within 48 hours - Inpatient Certification Based on my medical assessment, after consideration of the patient's comorbidities, presenting symptoms, or acuity I expect that the services needed warrant INPATIENT care.: Yes Medical Necessity: Need For IV Fluids, Need for Pain Control
--- NOTE | 2017-10-08 14:44 | Progress Note ---
Provider Note Provider Note: Patient has chronic pain syndrome likely secondary to her sickle cell disease. She is on oxycodone 5 mg every 6 hours as needed at home
[2017-10-08] MEDS: ARIPIPRAZOLE 5 MG TABLET PO SCH (21:14)
[2017-10-08] MEDS: RIVAROXABAN 10 MG TABLET PO SCH (21:14)
[2017-10-09] MEDS: HYDROMORPHONE HCL INJ/PF 2 MG/ML AMPULE IV PRN ×8 (01:48→21:48)
[2017-10-09] MEDS: DEXTROSE 5%-1/2 NORMAL SALINE 1,000 ML IV PRN ×3 (01:48→17:55)
[2017-10-09 06:50] LABS: ABSOLUTE RETICS # 0.094 10^6/uL (0.028-0.122); HEMATOCRIT 22.9 % (36.0-47.0); HEMOGLOBIN 8.2 g/dL (12.0-15.5); MEAN CORPUSCULAR HEMOGLOBIN 35.4 pg (27.0-33.4); MEAN CORPUSCULAR VOLUME 98 fl (80-97); PLATELET COUNT 341 10^3/uL (150-450); RED BLOOD COUNT 2.33 10^6/uL (3.72-5.28); RED CELL DISTRIBUTION WIDTH 17.6 % (11.5-14.0); RETICULOCYTE COUNT (AUTO) 4.04 % (0.66-2.85); WHITE BLOOD COUNT 10.9 10^3/uL (4.0-10.5)
[2017-10-09 06:58] LABS: ANION GAP 8 (5-19); BLOOD UREA NITROGEN 4 mg/dL (7-20); CALCIUM 8.2 mg/dL (8.4-10.2); CARBON DIOXIDE 29 mmol/L (22-30); CHLORIDE 104 mmol/L (98-107); GLUCOSE 107 mg/dL (75-110); POTASSIUM 3.8 mmol/L (3.6-5.0); SODIUM 141.2 mmol/L (137-145)
[2017-10-09 07:25] LABS: ABSOLUTE LYMPHOCYTES# (MANUAL) 1.6 10^3/uL (0.5-4.7); ABSOLUTE MONOCYTES # (MANUAL) 0.9 10^3/uL (0.1-1.4); ABSOLUTE NEUTROPHILS# (MANUAL) 7.6 10^3/uL (1.7-8.2); BASOPHILS % (MANUAL) 0 % (0-2); EOSINOPHILS % (MANUAL) 7 % (0-6); LYMPHOCYTES % (MANUAL) 15 % (13-45); MONOCYTES % (MANUAL) 8 % (3-13); SEGMENTED NEUTROPHILS % (MAN) 70 % (42-78); TOTAL CELLS COUNTED 100
[2017-10-09 07:26] LABS: ANISOCYTOSIS 2+; TARGET CELLS 3+
[2017-10-09 07:27] LABS: PLATELET COMMENT ADEQUATE; POLYCHROMASIA SLIGHT; SICKLE RED CELLS 1+
--- NOTE | 2017-10-09 08:00 | PDOC PROGRESS REPORT ---
Subjective Progress Note for:: 10/09/17 Subjective:: Pt doing better this am in terms of pain, was asking more for pain meds over last 24 hours, recommended continued aggressive pain control over next 24 hours Reason For Visit: SICKLE CELL DISEASE ANEMIA Physical Exam Vital Signs: Temp Pulse Resp BP Pulse Ox 100.4 F 93 18 117/54 L 95 10/09/17 00:08 10/09/17 00:08 10/09/17 00:08 10/09/17 00:08 10/09/17 00:08 Intake & Output 10/08/17 10/09/17 10/10/17 06:59 06:59 06:59 Intake Total 1671 4775 Balance 1671 4775 Weight 58.2 kg 57.6 kg General appearance: PRESENT: no acute distress, well-developed, well-nourished Head exam: PRESENT: atraumatic, normocephalic Eye exam: PRESENT: conjunctiva pink, EOMI, PERRLA. ABSENT: scleral icterus Ear exam: PRESENT: normal external ear exam Mouth exam: PRESENT: moist, tongue midline Neck exam: ABSENT: carotid bruit, JVD, lymphadenopathy, thyromegaly Respiratory exam: PRESENT: clear to auscultation samaria. ABSENT: rales, rhonchi, wheezes Cardiovascular exam: PRESENT: RRR. ABSENT: diastolic murmur, rubs, systolic murmur Pulses: PRESENT: normal dorsalis pedis pul Vascular exam: PRESENT: normal capillary refill GI/Abdominal exam: PRESENT: normal bowel sounds, soft. ABSENT: distended, guarding, mass, organolmegaly, rebound, tenderness Rectal exam: PRESENT: deferred Extremities exam: PRESENT: full ROM. ABSENT: calf tenderness, clubbing, pedal edema Neurological exam: PRESENT: alert, awake, oriented to person, oriented to place , oriented to time, oriented to situation, CN II-XII grossly intact. ABSENT: motor sensory deficit Psychiatric exam: PRESENT: appropriate affect, normal mood. ABSENT: homicidal ideation, suicidal ideation Skin exam: PRESENT: dry, intact, warm. ABSENT: cyanosis, rash Results Laboratory Results: 10/09/17 05:50 10/09/17 05:50 10/09/17 10/09/17 05:50 05:50 WBC 10.9 H RBC 2.33 L Hgb 8.2 L Hct 22.9 L MCV 98 H MCH 35.4 H MCHC 36.0 RDW 17.6 H Plt Count 341 Seg Neutrophils % Not Reportable Lymphocytes % Not Reportable Monocytes % Not Reportable Eosinophils % Not Reportable Basophils % Not Reportable Absolute Neutrophils Not Reportable Absolute Lymphocytes Not Reportable Absolute Monocytes Not Reportable Absolute Eosinophils Not Reportable Absolute Basophils Not Reportable Retic Count (auto) 4.04 H Absolute Retic 0.094 Sodium 141.2 Potassium 3.8 Chloride 104 Carbon Dioxide 29 Anion Gap 8 BUN 4 L Creatinine 0.52 Est GFR ( Amer) > 60 Est GFR (Non-Af Amer) > 60 Glucose 107 Calcium 8.2 L Impressions: Chest X-Ray 10/06/17 11:49 IMPRESSION: 1 No significant interval change since the prior study dated 2017. No acute finding. Chest CT 10/07/17 00:00 IMPRESSION: Minimal bibasilar atelectasis with trace pleural fluid in the bilateral posterior lung bases Assessment & Plan - Diagnosis (1) Sickle cell pain crisis Is this a current diagnosis for this admission?: Yes Plan: Better today, cont current measures still need IV pain control (2) Sickle cell anemia Qualifiers: Sickle-cell associated disorders: with unspecified crisis Qualified Code(s) : D57.00 - Hb-SS disease with crisis, unspecified; D57.0 - Hb-SS disease with crisis Is this a current diagnosis for this admission?: Yes Plan: Hb 8.2, transfuse once under 7
[2017-10-09] MEDS: DIPHENHYDRAMINE HCL 25 MG CAPSULE PO PRN ×2 (08:08→15:09)
[2017-10-09] MEDS: DOCUSATE SODIUM 100 MG CAPSULE PO SCH (10:13)
[2017-10-09] MEDS ORDERED: ONDANSETRON HCL INJ/PF 4 MG/2 ML SDV IV PRN (11:00)
--- NOTE | 2017-10-09 17:56 | PDOC PROGRESS REPORT ---
<NITZA ROBLES Yash - Last Filed: 10/09/17 17:45> Subjective Progress Note for:: 10/09/17 Subjective:: CASSANDRA MIDDLETON is a 22 year old female with a H sickle cell disease, presented emergency room 10/06/2017 with complaints of chest pain and upper extremity pain. The patient states her pain is similar to her usual crisis pattern. Pain regimen has slowly been increased since admission. The patient was seen this morning on rounds, she is resting comfortably in bed on room air. The patient states that her pain is now well controlled today, she has no complaints. Upon assessment, there is mild left anterior chest wall pain to palpation. Lungs are clear to auscultation. Normal S1-S2. No murmur/ rubs/gallops. Reason For Visit: SICKLE CELL DISEASE ANEMIA Physical Exam Vital Signs: Temp Pulse Resp BP Pulse Ox 99.4 F 79 14 124/58 L 97 10/09/17 16:00 10/09/17 16:00 10/09/17 16:00 10/09/17 16:00 10/09/17 16:00 Intake & Output 10/08/17 10/09/17 10/10/17 06:59 06:59 06:59 Intake Total 1671 4775 154 Balance 1671 4775 154 Weight 58.2 kg 57.6 kg General appearance: PRESENT: no acute distress, well-developed, well-nourished Head exam: PRESENT: atraumatic, normocephalic Eye exam: PRESENT: conjunctiva pink, EOMI, PERRLA. ABSENT: scleral icterus Ear exam: PRESENT: normal external ear exam Mouth exam: PRESENT: moist, tongue midline Neck exam: ABSENT: carotid bruit, JVD, lymphadenopathy, thyromegaly Respiratory exam: PRESENT: chest wall tenderness - LEFT CHEST WALL, clear to auscultation samaria. ABSENT: rales, rhonchi, wheezes Cardiovascular exam: PRESENT: RRR, +S1, +S2. ABSENT: diastolic murmur, rubs, systolic murmur Pulses: PRESENT: normal dorsalis pedis pul Vascular exam: PRESENT: normal capillary refill GI/Abdominal exam: PRESENT: normal bowel sounds, soft. ABSENT: distended, guarding, mass, organolmegaly, rebound, tenderness Rectal exam: PRESENT: deferred Extremities exam: PRESENT: full ROM. ABSENT: calf tenderness, clubbing, pedal edema Neurological exam: PRESENT: alert, awake, oriented to person, oriented to place , oriented to time, oriented to situation Psychiatric exam: PRESENT: appropriate affect, normal mood Skin exam: PRESENT: dry, intact, warm. ABSENT: cyanosis, rash Results Laboratory Results: 10/09/17 05:50 10/09/17 05:50 10/09/17 10/09/17 05:50 05:50 WBC 10.9 H RBC 2.33 L Hgb 8.2 L Hct 22.9 L MCV 98 H MCH 35.4 H MCHC 36.0 RDW 17.6 H Plt Count 341 Seg Neutrophils % Not Reportable Lymphocytes % Not Reportable Monocytes % Not Reportable Eosinophils % Not Reportable Basophils % Not Reportable Absolute Neutrophils Not Reportable Absolute Lymphocytes Not Reportable Absolute Monocytes Not Reportable Absolute Eosinophils Not Reportable Absolute Basophils Not Reportable Retic Count (auto) 4.04 H Absolute Retic 0.094 Sodium 141.2 Potassium 3.8 Chloride 104 Carbon Dioxide 29 Anion Gap 8 BUN 4 L Creatinine 0.52 Est GFR ( Amer) > 60 Est GFR (Non-Af Amer) > 60 Glucose 107 Calcium 8.2 L Impressions: Chest X-Ray 10/06/17 11:49 IMPRESSION: 1 No significant interval change since the prior study dated 2017. No acute finding. Chest CT 10/07/17 00:00 IMPRESSION: Minimal bibasilar atelectasis with trace pleural fluid in the bilateral posterior lung bases Status: Imported from PACS Assessment & Plan - Diagnosis (1) Sickle cell pain crisis Is this a current diagnosis for this admission?: Yes Plan: Patient has a history of sickle cell disease, States she normally presents with chest pain and upper extremity pain when she is in crisis. 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 Qualified Code(s): D58.2 - Other hemoglobinopathies Is this a current diagnosis for this admission?: Yes Plan: Anemia secondary to sickle cell disease Initial Hgb 6.9 requiring 2UPRBC Hgb has stabilized 8.2-9.6 No signs of active bleeding Continue to monitor with daily CBC - Time Time Spent with patient: 15-24 minutes Medications reviewed and adjusted accordingly: Yes Anticipated discharge: Home Within: within 24 hours - Inpatient Certification Based on my medical assessment, after consideration of the patient's comorbidities, presenting symptoms, or acuity I expect that the services needed warrant INPATIENT care.: Yes I certify that my determination is in accordance with my understanding of Medicare's requirements for reasonable and necessary INPATIENT services [42 CFR 412.3e].: Yes Medical Necessity: Risk of Complication if Not Cared For in Hospital - Plan Summary Plan Summary: Continue on current pain regimen. Likely discharge home tomorrow if patient remains stable and pain remains controlled. <LEONAJULY C - Last Filed: 10/10/17 15:31> Subjective Reason For Visit: SICKLE CELL DISEASE ANEMIA Physical Exam Vital Signs: Temp Pulse Resp BP Pulse Ox 98.6 F 64 18 108/50 L 97 10/10/17 11:15 10/10/17 11:15 10/10/17 11:15 10/10/17 11:15 10/10/17 11:15 Intake & Output 10/09/17 10/10/17 10/11/17 06:59 06:59 06:59 Intake Total 4775 2028 1999 Balance 4775 2028 1999 Weight 57.6 kg 62.4 kg Results Laboratory Results: 10/10/17 07:40 10/09/17 05:50 10/10/17 07:40 WBC 10.8 H RBC 2.46 L Hgb 8.8 L Hct 24.1 L MCV 98 H MCH 35.8 H MCHC 36.7 H RDW 18.1 H Plt Count 400 Seg Neutrophils % Not Reportable Lymphocytes % Not Reportable Monocytes % Not Reportable Eosinophils % Not Reportable Basophils % Not Reportable Absolute Neutrophils Not Reportable Absolute Lymphocytes Not Reportable Absolute Monocytes Not Reportable Absolute Eosinophils Not Reportable Absolute Basophils Not Reportable Impressions: Chest X-Ray 10/06/17 11:49 IMPRESSION: 1 No significant interval change since the prior study dated 2017. No acute finding. Chest CT 10/07/17 00:00 IMPRESSION: Minimal bibasilar atelectasis with trace pleural fluid in the bilateral posterior lung bases Assessment & Plan - Plan Summary Plan Summary: Patient discussed with Nitza Robles RN. Cosigning note per hospital policy.
[2017-10-09] MEDS: RIVAROXABAN 10 MG TABLET PO SCH (21:48)
[2017-10-09] MEDS: ARIPIPRAZOLE 5 MG TABLET PO SCH (21:48)
[2017-10-09] MEDS ORDERED: ESCITALOPRAM OXALATE 10 MG TABLET PO SCH (22:00)
[2017-10-09] MEDS ORDERED: (PENDING PHARMACY ID) (Escitalopram Oxalate [Lexapro] 5 MG) PO SCH (22:00)
[2017-10-10] MEDS: HYDROMORPHONE HCL INJ/PF 2 MG/ML AMPULE IV PRN (08:00)
--- NOTE | 2017-10-10 08:27 | PDOC PROGRESS REPORT ---
Subjective Progress Note for:: 10/10/17 Subjective:: Patient feeling much better today, received last dose of Dilaudid around 9 PM last night, this morning however she is in significant pain. Asked nursing to give her a pain dose today. But she feels ready to go home. I will give her prescription for Dilaudid, she will pick it up from our office. Reason For Visit: SICKLE CELL DISEASE ANEMIA Physical Exam Vital Signs: Temp Pulse Resp BP Pulse Ox 99.2 F 71 17 108/50 L 97 10/10/17 00:00 10/10/17 00:00 10/10/17 00:00 10/10/17 00:00 10/10/17 00:00 Intake & Output 10/09/17 10/10/17 10/11/17 06:59 06:59 06:59 Intake Total 4775 2028 1500 Balance 4775 2028 1500 Weight 57.6 kg 62.4 kg General appearance: PRESENT: no acute distress, well-developed, well-nourished Head exam: PRESENT: atraumatic, normocephalic Eye exam: PRESENT: conjunctiva pink, EOMI, PERRLA. ABSENT: scleral icterus Ear exam: PRESENT: normal external ear exam Mouth exam: PRESENT: moist, tongue midline Neck exam: ABSENT: carotid bruit, JVD, lymphadenopathy, thyromegaly Respiratory exam: PRESENT: clear to auscultation samaria. ABSENT: rales, rhonchi, wheezes Cardiovascular exam: PRESENT: RRR. ABSENT: diastolic murmur, rubs, systolic murmur Pulses: PRESENT: normal dorsalis pedis pul Vascular exam: PRESENT: normal capillary refill GI/Abdominal exam: PRESENT: normal bowel sounds, soft. ABSENT: distended, guarding, mass, organolmegaly, rebound, tenderness Rectal exam: PRESENT: deferred Extremities exam: PRESENT: full ROM. ABSENT: calf tenderness, clubbing, pedal edema Neurological exam: PRESENT: alert, awake, oriented to person, oriented to place , oriented to time, oriented to situation, CN II-XII grossly intact. ABSENT: motor sensory deficit Psychiatric exam: PRESENT: appropriate affect, normal mood. ABSENT: homicidal ideation, suicidal ideation Skin exam: PRESENT: dry, intact, warm. ABSENT: cyanosis, rash Results Laboratory Results: 10/09/17 05:50 10/09/17 05:50 Impressions: Chest X-Ray 10/06/17 11:49 IMPRESSION: 1 No significant interval change since the prior study dated 2017. No acute finding. Chest CT 10/07/17 00:00 IMPRESSION: Minimal bibasilar atelectasis with trace pleural fluid in the bilateral posterior lung bases Assessment & Plan - Diagnosis (1) Sickle cell pain crisis Is this a current diagnosis for this admission?: Yes Plan: Appears much better today, plan for discharge home with oral pain medication, we will set her up for IV fluids as an outpatient Friday, with pain medication if needed, will follow closely as an outpatient. (2) Sickle cell anemia Qualifiers: Sickle-cell associated disorders: with unspecified crisis Qualified Code(s) : D57.00 - Hb-SS disease with crisis, unspecified; D57.0 - Hb-SS disease with crisis Is this a current diagnosis for this admission?: Yes Plan: Globin stable we will not need transfusion prior to discharge - Time Time Spent with patient: 35 or more minutes Disposition: Today spent greater than 40 minutes in discussion and coordination of care
[2017-10-10 08:56] LABS: HEMATOCRIT 24.1 % (36.0-47.0); HEMOGLOBIN 8.8 g/dL (12.0-15.5); MEAN CORPUSCULAR HEMOGLOBIN 35.8 pg (27.0-33.4); MEAN CORPUSCULAR HGB CONC 36.7 g/dL (32.0-36.0); MEAN CORPUSCULAR VOLUME 98 fl (80-97); PLATELET COUNT 400 10^3/uL (150-450); RED BLOOD COUNT 2.46 10^6/uL (3.72-5.28); RED CELL DISTRIBUTION WIDTH 18.1 % (11.5-14.0); WHITE BLOOD COUNT 10.8 10^3/uL (4.0-10.5)
[2017-10-10 09:25] LABS: ABSOLUTE LYMPHOCYTES# (MANUAL) 1.2 10^3/uL (0.5-4.7); ABSOLUTE MONOCYTES # (MANUAL) 0.8 10^3/uL (0.1-1.4); ABSOLUTE NEUTROPHILS# (MANUAL) 6.9 10^3/uL (1.7-8.2); BASOPHILS % (MANUAL) 3 % (0-2); EOSINOPHILS % (MANUAL) 15 % (0-6); LYMPHOCYTES % (MANUAL) 11 % (13-45); MONOCYTES % (MANUAL) 7 % (3-13); SEGMENTED NEUTROPHILS % (MAN) 64 % (42-78); TOTAL CELLS COUNTED 100
[2017-10-10 09:29] LABS: ANISOCYTOSIS 2+; PLATELET COMMENT ADEQUATE; POLYCHROMASIA 1+; SICKLE RED CELLS SLIGHT; TARGET CELLS 3+; TOXIC VACUOLATION PRESENT
[2017-10-10] MEDS: DOCUSATE SODIUM 100 MG CAPSULE PO SCH (09:38)
[2017-10-10] MEDS: DEXTROSE 5%-1/2 NORMAL SALINE 1,000 ML IV PRN (09:39)
[2017-10-10 11:19] VITALS: BP 108/50
--- NOTE | 2017-10-20 13:17 | PDOC DISCHARGE SUMMARY ---
General - Admit/Disc Date/PCP Admission Date/Primary Care Provider: 10/06/17 15:40 JOIE MOREIRA MD Discharge Date: 10/10/17 - Discharge Diagnosis (1) Sickle cell pain crisis Is this a current diagnosis for this admission?: Yes (2) Anemia Is this a current diagnosis for this admission?: Yes - Additional Information Resuscitation Status: Full Code Discharge Diet: As Tolerated Discharge Activity: Activity As Tolerated Home Medications: Albuterol Sulfate [Proair HFA Inhalation Aerosol 8.5 gm MDI] 1 puff IH Q4HP PRN 10/06/17 Aripiprazole [Abilify 15 mg Tablet] 15 mg PO QHS 10/06/17 Escitalopram Oxalate [Lexapro] 5 mg PO QHS 10/06/17 Hydroxyzine HCl [Atarax 25 mg Tablet] 25 mg PO Q8HP PRN 10/06/17 Oxycodone HCl [Oxy-Ir 5 mg Tablet] 5 mg PO Q6HP PRN 10/06/17 Rivaroxaban [Xarelto] 20 mg PO DAILY 10/06/17 Zolpidem Tartrate [Ambien] 10 mg PO QHS 10/06/17 History of Present Illness History of Present Illness: CASSANDRA MIDDLETON is a 22 year old female presents emergency room with complaints of chest pain and upper extremity pain patient does have a history of sickle cell disease. She says the pain is similar to her usual crisis pattern. She was last admitted in August where she spent about 5 days both here at this hospital as well as vitamins. She says she has been noncompliant with her medications and instructions. Her hemoglobin was found to be 6.9 today and she says usually her hemoglobin globin is around 8. Dr. Moreira has been consulted and he recommends transfusion of 2 units of packed red blood cells. There is no evidence of any acute infection. No dysuria frequency cough abdominal pain or any other pertinent complaints Hospital Course Hospital Course: 22 y.o. F with a PMH of scikle cell disease admitted to [facility] for sickle cell crisis. Her presenting chief complaint was chest pain and upper extremity pain. CT chest was preformed to rule out acute chest syndrome, results were negative. Her presenting Hgb was 6.8 (baseline 8.0) and she was transfused 2 U PRBCs. Additionally, the patient was started on a regimen of IVF and narcotic pain medication. While inpatient, she was followed by the hospitalist team as well as [facility], Dr. Jimenez. After 4 days in the hospital, the patient was deemed safe for discharge. Her pain was well controlled and she did not require any further blood transfusions. She was instructed to brain picker her narcotic medications from Dr. Jimenez's office. Additionally, she was sent home with instructions on IVF infusion treatments she would be receiving at Dr. Jimenez's office three times per week for (at least) the next two weeks. Physical Exam Vital Signs: Temp Pulse Resp BP Pulse Ox 98.6 F 64 18 108/50 L 97 10/10/17 11:15 10/10/17 11:15 10/10/17 11:15 10/10/17 11:15 10/10/17 11:15 Results Laboratory Results: 10/10/17 07:40 10/09/17 05:50 Impressions: Chest X-Ray 10/06/17 11:49 IMPRESSION: 1 No significant interval change since the prior study dated 2017. No acute finding. Chest CT 10/07/17 00:00 IMPRESSION: Minimal bibasilar atelectasis with trace pleural fluid in the bilateral posterior lung bases Status: Imported from PACS Qualifiers - * PATIENT BEING DISCHARGED WITH ANY OF THE FOLLOWING DIAGNOSIS: No
== END 2017-10-10 12:14 | disposition home or self-care (01) | DRG 812 ==
LOC: ER 11:30 → EH 15:40 → 5 17:18
PROVIDERS: ADMIT Internal Medicine; ATTEND Internal Medicine
PROC: 30233N1 Transfusion of Nonautologous Red Blood Cells into Peripheral Vein, Percutaneous Approach (ICD-10-PCS; principal; 2017-10-06)
PROC: 3E0F73Z Introduction of Anti-inflammatory into Respiratory Tract, Via Natural or Artificial Opening (ICD-10-PCS; 2017-10-07)
DX: D57.00 Hb-SS disease with crisis, unspecified (principal); F32.9 Major depressive disorder, single episode, unspecified; F41.9 Anxiety disorder, unspecified; Z86.718 Personal history of other venous thrombosis and embolism; Z90.49 Acquired absence of other specified parts of digestive tract; Z79.899 Other long term (current) drug therapy; Z88.6 Allergy status to analgesic agent; Z91.018 Allergy to other foods; Z83.2 Family history of diseases of the blood and blood-forming organs and certain disorders involving the immune mechanism
CPT/HCPCS: 36415; 36430; 71046; 71250; 80048; 80053; 84484; 85025; 85027; 85045; 86850; 86900; 86901; 86902; 86920; 94799; 96361; 96374; 96375; 99285; J1170; J1200; J3010; J3490; J7030; P9016

== ENCOUNTER 2017-10-13 08:53 | Outpatient (CLI) | payer MEDICAID ==
[2017-10-13 09:13] VITALS: BP 105/60
[2017-10-13] MEDS ORDERED: NORMAL SALINE 1000 ML 1,000 ML IV PRN (09:26)
[2017-10-13] MEDS ORDERED: HYDROMORPHONE HCL INJ/PF 2 MG/ML AMPULE IV PRN (09:27)
== END 2017-10-13 10:56 | disposition home or self-care (01) ==
LOC: II 08:53 → 2S 08:57 → II 10:56
PROVIDERS: ATTEND Internal Medicine
PROC: 3E043GC Introduction of Other Therapeutic Substance into Central Vein, Percutaneous Approach (ICD-10-PCS; principal; 2017-10-13)
PROC: 3E0437Z Introduction of Electrolytic and Water Balance Substance into Central Vein, Percutaneous Approach (ICD-10-PCS; 2017-10-13)
DX: D57.1 Sickle-cell disease without crisis (principal); R52 Pain, unspecified; E86.0 Dehydration
CPT/HCPCS: J1170; J7030; 96361; 96374

== ENCOUNTER 2017-10-15 11:33 | Outpatient (CLI) | payer MEDICAID ==
[~2017-10-15 11:33] MED LIST changes: -HYDROMORPHONE HCL INJ/PF 2 MG/ML AMPULE INJ PRN; +HYDROMORPHONE HCL INJ/PF 2 MG/ML AMPULE IV PRN
[2017-10-15 11:57] VITALS: BP 100/50
== END 2017-10-15 13:26 | disposition home or self-care (01) ==
LOC: II 11:33 → 5TH 11:40 → II 13:26
PROVIDERS: ATTEND Internal Medicine
PROC: 3E0437Z Introduction of Electrolytic and Water Balance Substance into Central Vein, Percutaneous Approach (ICD-10-PCS; principal; 2017-10-15)
PROC: 3E043GC Introduction of Other Therapeutic Substance into Central Vein, Percutaneous Approach (ICD-10-PCS; 2017-10-15)
DX: D57.1 Sickle-cell disease without crisis (principal); R52 Pain, unspecified; E86.0 Dehydration
CPT/HCPCS: 96374; 96375; 96360; 96361; J1170

== ENCOUNTER 2017-10-17 11:59 | Outpatient (CLI) | payer MEDICAID ==
[2017-10-17 13:47] VITALS: BP 99/51
== END 2017-10-17 13:40 | disposition home or self-care (01) ==
LOC: II 11:59 → 5TH 12:02 → II 13:40
PROVIDERS: ATTEND Internal Medicine
PROC: 3E043GC Introduction of Other Therapeutic Substance into Central Vein, Percutaneous Approach (ICD-10-PCS; principal; 2017-10-17)
PROC: 3E0437Z Introduction of Electrolytic and Water Balance Substance into Central Vein, Percutaneous Approach (ICD-10-PCS; 2017-10-17)
DX: D57.1 Sickle-cell disease without crisis (principal); R52 Pain, unspecified; E86.0 Dehydration
CPT/HCPCS: 96374; 96361; J1170; 96360; 96375

== ENCOUNTER 2017-10-20 09:35 | Outpatient (CLI) | payer MEDICAID ==
[2017-10-20] MEDS ORDERED: NORMAL SALINE 1000 ML 1,000 ML IV PRN (09:58)
[2017-10-20] MEDS ORDERED: HYDROMORPHONE HCL INJ/PF 2 MG/ML AMPULE IV PRN (09:59)
[2017-10-20 12:30] VITALS: BP 98/52
== END 2017-10-20 12:36 | disposition home or self-care (01) ==
LOC: II 09:35 → 2S 09:37 → II 12:36
PROVIDERS: ATTEND Internal Medicine
PROC: 3E033GC Introduction of Other Therapeutic Substance into Peripheral Vein, Percutaneous Approach (ICD-10-PCS; principal; 2017-10-20)
PROC: 3E0337Z Introduction of Electrolytic and Water Balance Substance into Peripheral Vein, Percutaneous Approach (ICD-10-PCS; 2017-10-20)
DX: D57.1 Sickle-cell disease without crisis (principal); R52 Pain, unspecified; E86.0 Dehydration
CPT/HCPCS: J1170; J7030; 96361; 96374

== ENCOUNTER 2017-10-22 11:42 | Outpatient (CLI) | payer MEDICAID ==
[2017-10-22 15:15] VITALS: BP 93/49
== END 2017-10-22 15:00 | disposition home or self-care (01) ==
LOC: II 11:42 → 5TH 12:13 → II 15:00
PROVIDERS: ATTEND Internal Medicine
PROC: 3E0437Z Introduction of Electrolytic and Water Balance Substance into Central Vein, Percutaneous Approach (ICD-10-PCS; principal; 2017-10-22)
PROC: 3E043GC Introduction of Other Therapeutic Substance into Central Vein, Percutaneous Approach (ICD-10-PCS; 2017-10-22)
DX: D57.1 Sickle-cell disease without crisis (principal); R52 Pain, unspecified; E86.0 Dehydration
CPT/HCPCS: 96374; 96361; J1170; 96360

== ENCOUNTER 2017-10-24 11:52 | Outpatient (CLI) | payer MEDICAID ==
[2017-10-24 13:21] VITALS: BP 102/50
== END 2017-10-24 14:15 | disposition home or self-care (01) ==
LOC: II 11:52 → 5TH 11:56 → II 14:15
PROVIDERS: ATTEND Internal Medicine
PROC: 3E043GC Introduction of Other Therapeutic Substance into Central Vein, Percutaneous Approach (ICD-10-PCS; principal; 2017-10-24)
PROC: 3E0437Z Introduction of Electrolytic and Water Balance Substance into Central Vein, Percutaneous Approach (ICD-10-PCS; 2017-10-24)
DX: D57.1 Sickle-cell disease without crisis (principal); R52 Pain, unspecified; E86.0 Dehydration
CPT/HCPCS: 96374; 96361; J1170; 96360; 96375

== ENCOUNTER 2017-10-26 22:50 | Emergency (ER) | payer MEDICAID ==
--- NOTE | 2017-10-27 00:39 | ER Document Report ---
ED General - General Mode of Arrival: Ambulatory Information source: Patient TRAVEL OUTSIDE OF THE [place]. IN LAST 30 DAYS: No <DARIN OLVERA - Last Filed: 10/27/17 00:40> <FEROZ SÁNCHEZ - Last Filed: 10/27/17 04:07> - General Chief Complaint: Sickle Cell Crisis Stated Complaint: BACK PAIN Time Seen by Provider: 10/27/17 00:20 Notes: 22 y.o female with sickle cell anemia presents to the ED with pain to her lower back and entire RLE of onset around 1600 this afternoon. Pt denies any known fever but reports a cough and vomiting about 2 hours before coming to the ED. Pt reports taking pain medication at onset of her pain. Pt reports a transfusion this month at [facility]. Pt's PCP is Dr. Varsha Elena. Pt also sees Dr. Baum regularly for her sickle cell. (DARIN OLVERA) - Related Data Allergies/Adverse Reactions: morphine Allergy (Severe, Verified 10/06/17 11:48) RASH,SWELLING jaocb peppers Adverse Reaction (Severe, Uncoded 10/06/17 11:48) throat closes Past Medical History - General Information source: Patient - Social History Smoking Status: Current Every Day Smoker Cigarette use (# per day): Yes - 1/2 pack/day Smoking Education Provided: Yes Frequency of alcohol use: None Family History: Other - Sickle cell - Past Medical History Cardiac Medical History: Reports: Hx DVT - RUE s/p port placement Pulmonary Medical History: Reports: Hx Asthma, Hx Bronchitis - once in past per patient, Hx Pneumonia - history in past per patient Musculoskeletal Medical History: Reports Hx Musculoskeletal Trauma Psychiatric Medical History: Reports: Hx Anxiety, Hx Depression - anxiety Past Surgical History: Reports: Hx Cholecystectomy - 06/28/2015, Hx Vascular Surgery - port put in December,, Other - Port-A-Cath in right upper chest - Immunizations Immunizations up to date: Yes Hx Diphtheria, Pertussis, Tetanus Vaccination: Yes <DARIN OLVERA - Last Filed: 10/27/17 00:40> Review of Systems - Review of Systems Constitutional: See HPI. denies: Fever EENT: No symptoms reported Cardiovascular: No symptoms reported Respiratory: See HPI, Cough Gastrointestinal: See HPI, Vomiting Genitourinary: No symptoms reported Female Genitourinary: No symptoms reported Musculoskeletal: See HPI, Back pain, Other - LLE pain Skin: No symptoms reported Hematologic/Lymphatic: No symptoms reported Neurological/Psychological: No symptoms reported -: Yes All other systems reviewed and negative <DARIN OLVERA - Last Filed: 10/27/17 00:40> Physical Exam <DARIN OLVERA - Last Filed: 10/27/17 00:40> <FEROZ SÁNCHEZ - Last Filed: 10/27/17 04:07> - Vital signs Vitals: Temp Pulse Resp BP Pulse Ox 98.0 F 86 20 116/61 98 10/26/17 23:23 10/26/17 23:23 10/26/17 23:23 10/26/17 23:23 10/26/17 23:23 - Notes Notes: Physical Exam: General: Alert, appears well. HEENT: Normocephalic. Atraumatic. PERRL. Extraocular movements intact. Oropharynx clear. Neck: Supple. Non-tender. Respiratory: No respiratory distress. Clear and equal breath sounds bilaterally. Cardiovascular: Regular rate and rhythm. Abdominal: Normal Inspection. Non-tender. No distension. Normal Bowel Sounds. Back: Very tender to palpate the muscles of the lower back. No deformity or step off. Extremities: Moves all four extremities. Upper extremities: Normal inspection. Normal ROM. Lower extremities: Very tender to palpate the muscles of the RT thigh and distal lower extremity. No edema. Normal ROM. Neurological: Normal cognition. AAOx3. Normal speech. Psychological: Normal affect. Normal Mood. Skin: Warm. Dry. Normal color. (DARIN OLVERA) Course <DARIN OLVERA - Last Filed: 10/27/17 00:40> - Laboratory Result Diagrams: 10/27/17 02:05 10/27/17 01:00 - Transfer of Care Care transferred to following provider: Dr. Caraballo <FEROZ SÁNCHEZ - Last Filed: 10/27/17 04:07> - Re-evaluation Re-evalutation: 10/27/17 02:57 The patient's reticulocyte count is normal at 2.42 with a normal absolute reticulocyte count at 0.075 Myoglobin is 10.5 10/27/17 04:05 The patient is sleeping soundly at this time. Second liter of IV fluids running. She will be discharged at the end of that liter of IV fluid, as there is really no evidence that this is sickle cell related pain today. (FEROZ SÁNCHEZ) - Vital Signs Vital signs: Temp Pulse Resp BP Pulse Ox 98.0 F 86 15 100/58 L 100 10/26/17 23:23 10/26/17 23:23 10/27/17 02:04 10/27/17 02:04 10/27/17 02:04 - Laboratory Laboratory results interpreted by me: 10/27/17 10/27/17 10/27/17 01:00 01:00 02:05 WBC 15.0 H RBC 3.11 L Hgb 10.4 L Hct 28.7 L MCH 33.5 H MCHC 36.3 H RDW 17.4 H Plt Count 487 H Absolute Neutrophils 9.7 H Absolute Basophils 0.3 H Sodium 145.6 H Potassium 3.3 L Chloride 112 H Carbon Dioxide 20 L BUN 5 L Creatinine 0.46 L Lactic Acid 0.6 L Calcium 8.2 L Total Bilirubin 3.4 H Albumin 3.3 L Urine Urobilinogen 10/27/17 02:47 WBC RBC Hgb Hct MCH MCHC RDW Plt Count Absolute Neutrophils Absolute Basophils Sodium Potassium Chloride Carbon Dioxide BUN Creatinine Lactic Acid Calcium Total Bilirubin Albumin Urine Urobilinogen 2.0 H - Transfer of Care Notes: 10/27/17 04:06 The patient has a failed liter of IV fluid running at this time. She will be ready for discharge when that fluid is in. She does not have evidence to support a diagnosis of sickle cell crisis or an exam that would suggest that. She can follow-up with her hip hop artist today if she needs to be reevaluated. ( FEROZ SÁNCHEZ) Discharge <DARIN OLVERA - Last Filed: 10/27/17 00:40> <FEROZ SÁNCHEZ - Last Filed: 10/27/17 04:07> - Discharge Clinical Impression: Pain of right lower extremity Sickle cell disease Qualifiers: Sickle-cell associated disorders: without crisis Qualified Code(s): D57.1 - Sickle-cell disease without crisis Low back pain Qualifiers: Chronicity: acute Back pain laterality: bilateral Sciatica presence: without sciatica Qualified Code(s): M54.5 - Low back pain Condition: Stable Disposition: HOME, SELF-CARE Additional Instructions: Your physical exam suggests the pain your experience today is in the muscles and not due to your sickle cell disease. Your lab work also does not suggest you are having a sickle cell crisis today. The only abnormality was a slightly low potassium level. You can correct this by increasing potassium in your diet and eating fruits and vegetables, such as bananas. Follow-up with Dr. Baum or your primary care provider if your back pain does not improve. Referrals: JOIE BAUM MD [Primary Care Provider] - Follow up as needed Scribe Attestation: 10/27/17 01:21 I personally performed the services described in the documentation, reviewed and edited the documentation which was dictated to the scribe in my presence, and it accurately records my words and actions. (FEROZ SÁNCHEZ) Scribe Documentation - Scribe Written by Scrdayron:: Asha Kwok 10/27/17 0043 acting as scribe for :: Jayson <DARIN OLVERA - Last Filed: 10/27/17 00:40>
[2017-10-27] MEDS ORDERED: HYDROMORPHONE HCL INJ/PF 2 MG/ML AMPULE IV ONE (00:41)
[2017-10-27] MEDS ORDERED: ONDANSETRON HCL INJ/PF 4 MG/2 ML SDV IV ONE (00:41)
[2017-10-27] MEDS ORDERED: NORMAL SALINE 1000 ML 1,000 ML IV ONE ×2 (00:44→02:53)
[2017-10-27] MEDS ORDERED: DIPHENHYDRAMINE HCL 50 MG/ML VIAL IV ONE (01:19)
[2017-10-27 01:48] LABS: ALANINE AMINOTRANSFERASE 20 U/L (9-52); ALBUMIN 3.3 g/dL (3.5-5.0); ALKALINE PHOSPHATASE 67 U/L (38-126); ANION GAP 14 (5-19); ASPARTATE AMINO TRANSFERASE 17 U/L (14-36); BILIRUBIN,DIRECT 0.2 mg/dL (0.0-0.4); BILIRUBIN,TOTAL 3.4 mg/dL (0.2-1.3); BLOOD UREA NITROGEN 5 mg/dL (7-20); CALCIUM 8.2 mg/dL (8.4-10.2); CARBON DIOXIDE 20 mmol/L (22-30); CHLORIDE 112 mmol/L (98-107); CREATINE KINASE 49 U/L (30-135); GLUCOSE 77 mg/dL (75-110); POTASSIUM 3.3 mmol/L (3.6-5.0); SODIUM 145.6 mmol/L (137-145); TOTAL PROTEIN 6.4 g/dL (6.3-8.2)
[2017-10-27 02:29] LABS: ABSOLUTE BASOPHILS # (AUTO) 0.3 10^3/uL (0.0-0.2); ABSOLUTE EOSINOPHILS # (AUTO) 0.5 10^3/uL (0.0-0.6); ABSOLUTE LYMPHOCYTES (AUTO) 3.5 10^3/uL (0.5-4.7); ABSOLUTE NEUT (AUTO) 9.7 10^3/uL (1.7-8.2); ABSOLUTE RETICS # 0.075 10^6/uL (0.028-0.122); BASOPHILS % (AUTO) 1.7 % (0-2); EOSINOPHILS % (AUTO) 3.2 % (0-6); HEMATOCRIT 28.7 % (36.0-47.0); HEMOGLOBIN 10.4 g/dL (12.0-15.5); MEAN CORPUSCULAR HEMOGLOBIN 33.5 pg (27.0-33.4); MEAN CORPUSCULAR HGB CONC 36.3 g/dL (32.0-36.0); MONOCYTES % (AUTO) 6.9 % (3-13); PLATELET COUNT 487 10^3/uL (150-450); RED BLOOD COUNT 3.11 10^6/uL (3.72-5.28); RED CELL DISTRIBUTION WIDTH 17.4 % (11.5-14.0); RETICULOCYTE COUNT (AUTO) 2.42 % (0.66-2.85); SEGMENTED NEUTROPHILS % (AUTO) 65.2 % (42-78); TOTAL CELLS COUNTED % (AUTO) 100 %
[2017-10-27 02:31] LABS: MEAN CORPUSCULAR VOLUME 92 fl (80-97)
[2017-10-27 02:41] VITALS: BP 100/58
[2017-10-27 03:10] LABS: APPEARANCE,URINE CLEAR; BILIRUBIN,URINE NEGATIVE (NEGATIVE); COLOR,URINE YELLOW; GLUCOSE, URINE NEGATIVE (NEGATIVE); KETONES,URINE NEGATIVE (NEGATIVE); LEUKOCYTE ESTERASE,URINE NEGATIVE (NEGATIVE); NITRITE,URINE NEGATIVE (NEGATIVE); PROTEIN,URINE NEGATIVE (NEGATIVE)
== END 2017-10-27 05:35 | disposition home or self-care (01) ==
LOC: ER 22:50
DX: M79.604 Pain in right leg (principal); M79.605 Pain in left leg; M54.5 Low back pain; D57.1 Sickle-cell disease without crisis; R05 Cough; R11.10 Vomiting, unspecified; F17.210 Nicotine dependence, cigarettes, uncomplicated; J45.909 Unspecified asthma, uncomplicated; Z98.890 Other specified postprocedural states; Z88.5 Allergy status to narcotic agent; Z86.718 Personal history of other venous thrombosis and embolism
CPT/HCPCS: 36591; 99284; 96361; 96374; 96375; 36415; 87040; 82550; 84703; 85025; 87077; 85045; 80053; 81001; 83605; J1200; J1170; J2405; J7030

== ENCOUNTER 2017-10-27 22:22 | Emergency (ER) | payer MEDICAID ==
--- NOTE | 2017-10-28 01:21 | ER Document Report ---
ED General - General Chief Complaint: Abnormal Lab Results Stated Complaint: ABNORMAL LABS Time Seen by Provider: 10/28/17 00:29 Mode of Arrival: Ambulatory Information source: Patient Notes: 22-year-old female with sickle cell disease presents after being called when her blood culture was found to be positive for gram positive rods. Patient was seen yesterday for low back pain. Upon arrival patient states that she feels well. She denies any fever. She reports that her back pain has improved. She does report a productive cough. She denies any fever, chills, nausea, vomiting , chest pain, shortness of breath, abdominal pain, dysuria, hematuria. TRAVEL OUTSIDE OF THE [place] IN LAST 30 DAYS: No - HPI Onset: Yesterday Onset/Duration: Gradual Quality of pain: No pain Severity: None Associated symptoms: Nonproductive cough Exacerbated by: Denies Relieved by: Denies Similar symptoms previously: Yes Recently seen / treated by doctor: Yes - 10/27/2017 - Related Data Allergies/Adverse Reactions: morphine Allergy (Severe, Verified 10/06/17 11:48) RASH,SWELLING jacob peppers Adverse Reaction (Severe, Uncoded 10/06/17 11:48) throat closes Past Medical History - General Information source: Patient - Social History Smoking Status: Never Smoker Frequency of alcohol use: None Drug Abuse: None Lives with: Family Family History: Reviewed & Not Pertinent, Other - Sickle cell - Past Medical History Cardiac Medical History: Reports: Hx DVT - RUE s/p port placement Pulmonary Medical History: Reports: Hx Asthma, Hx Bronchitis - once in past per patient, Hx Pneumonia Renal/ Medical History: Denies: Hx Peritoneal Dialysis Musculoskeletal Medical History: Reports Hx Musculoskeletal Trauma Psychiatric Medical History: Reports: Hx Anxiety, Hx Depression - anxiety Past Surgical History: Reports: Hx Cholecystectomy - 06/28/2015, Hx Vascular Surgery - port put in December,, Other - Port-A-Cath in right upper chest - Immunizations Immunizations up to date: Yes Hx Diphtheria, Pertussis, Tetanus Vaccination: Yes Review of Systems - Review of Systems Notes: REVIEW OF SYSTEMS: CONSTITUTIONAL : Denies fever, chills, or sweats. Denies recent illness. Denies weight loss, recent hospitalizations. EENT: Denies visual changes, eye pain. Denies nasal or sinus congestion or discharge. Denies sore throat, oral lesions, difficulty swallowing. CARDIOVASCULAR: Denies chest pain. Denies palpitations. Denies lower extremity edema. RESPIRATORY: Denies chest congestion. Denies shortness of breath, wheezing. GASTROINTESTINAL: Denies abdominal pain or distention. Denies nausea, vomiting , or diarrhea. Denies blood in vomitus, stools, or per rectum. Denies black, tarry stools. Denies constipation. GENITOURINARY: Denies difficulty urinating, painful urination, frequency, blood in urine, or vaginal discharge. MUSCULOSKELETAL: Denies back or neck pain or stiffness. Denies joint pain or swelling. SKIN: Denies rash, lesions or sores. HEMATOLOGIC : Denies easy bruising or bleeding. LYMPHATIC: Denies swollen glands. NEUROLOGICAL: Denies confusion or altered mental status. Denies passing out or loss of consciousness. Denies dizziness or lightheadedness. Denies headache. Denies weakness or paralysis. Denies problems difficulty with ambulation, slurred speech. Denies sensory loss, numbness, or tingling. Denies seizures. PSYCHIATRIC: Denies anxiety or stress. Denies depression, suicidal ideation, or homicidal ideation. Denies visual or auditory hallucinations. Physical Exam - Vital signs Vitals: Temp Pulse Resp BP Pulse Ox 98.9 F 81 18 112/63 95 10/27/17 22:39 10/27/17 22:39 10/27/17 22:39 10/27/17 22:39 10/27/17 22:39 Interpretation: No: Hypotensive, Hypoxic, Febrile - Notes Notes: PHYSICAL EXAMINATION: GENERAL: Well-appearing, well-nourished and in no acute distress. HEAD: Atraumatic, normocephalic. EYES: Pupils equal round and reactive to light, extraocular movements intact, conjunctiva are normal. ENT: Nares patent, oropharynx clear without exudates. Moist mucous membranes. NECK: Normal range of motion, supple without lymphadenopathy LUNGS: Breath sounds clear to auscultation bilaterally and equal. No wheezes rales or rhonchi. HEART: Regular rate and rhythm without murmurs ABDOMEN: Soft, nontender, nondistended abdomen. No guarding, no rebound. No masses appreciated. Female : deferred Musculoskeletal: Normal range of motion, no pitting or edema. No cyanosis. NEUROLOGICAL: Cranial nerves grossly intact. Normal speech, normal gait. Normal sensory, motor exams PSYCH: Normal mood, normal affect. SKIN: Warm, Dry, normal turgor, no rashes or lesions noted. Course - Re-evaluation Re-evalutation: 10/28/17 01:20 22-year-old female presents after being called when her blood culture from 2017 was positive for gram-positive rods. Previous medical records were reviewed. Patient was seen yesterday for low back pain which she reports has improved. She was afebrile yesterday and today. She has no infectious symptoms at this time. She does report a nonproductive cough without associated fever or shortness of breath. Chest x-ray was obtained and within normal limits. No repeat laboratory testing was performed due to the patient's well appearance. Patient provided the opportunity to ask questions, and express concerns. Discharge instructions discussed. Patient is agreeable with discharge home. Return indications explained and discussed with the patient who displays understanding. Patient encouraged to return to the emergency department immediately with any concerns. 10/28/17 01:42 - Vital Signs Vital signs: Temp Pulse Resp BP Pulse Ox 98.9 F 81 18 112/63 95 10/27/17 22:39 10/27/17 22:39 10/27/17 22:39 10/27/17 22:39 10/27/17 22:39 - Diagnostic Test Radiology reviewed: Image reviewed, Reports reviewed Discharge - Discharge Clinical Impression: Cough, Abnormal laboratory test Low back pain Qualifiers: Chronicity: unspecified Back pain laterality: unspecified Sciatica presence: without sciatica Qualified Code(s): M54.5 - Low back pain Sickle cell anemia Qualifiers: Sickle-cell associated disorders: without crisis Qualified Code(s): D57.1 - Sickle-cell disease without crisis Instructions: Normal Exam and Workup ([facility]) Additional Instructions: We believe that you are positive blood culture was a contaminant. If you experience fever please return to the emergency room. Your chest x-ray today was within normal limits. Referrals: JOIE MOREIRA MD [Primary Care Provider] - Follow up in 3-5 days
--- NOTE | 2017-10-28 01:29 | RADIOLOGY REPORT (SQ) ---
CXR- 2 VIEW Clinical history: Shortness of breath and cough in a 22-year-old female. Comparison: None. Technique: 2 views of the chest are submitted for review. Findings: Port-A-Cath is demonstrated with tip overlying the SVC. There is minimal prominence of bronchopulmonary markings. The lungs are adequately expanded without evidence of infiltrate and/or effusion. The cardiac silhouette measures within normal. Pulmonary vascularity is unremarkable. Osseous structures are within normal limits for age. Impression: Minimal prominence of bronchopulmonary markings. Please correlate for bronchitis.
[2017-10-28 02:05] VITALS: BP 116/60
== END 2017-10-28 02:05 | disposition home or self-care (01) ==
LOC: ER 22:22
DX: R78.81 Bacteremia (principal); M54.5 Low back pain; R05 Cough; Z88.5 Allergy status to narcotic agent; J45.909 Unspecified asthma, uncomplicated
CPT/HCPCS: 71046; 99283

== ENCOUNTER 2017-11-03 10:02 | Outpatient (CLI) | payer MEDICAID ==
[2017-11-03] MEDS ORDERED: NORMAL SALINE 1000 ML 1,000 ML IV PRN (10:44)
[2017-11-03] MEDS ORDERED: HYDROMORPHONE HCL INJ/PF 2 MG/ML AMPULE IV PRN (10:45)
[2017-11-03 11:47] VITALS: BP 100/51
== END 2017-11-03 12:58 | disposition home or self-care (01) ==
LOC: II 10:02 → 5TH 10:12 → 2N 10:22 → II 12:58
PROVIDERS: ATTEND Internal Medicine
PROC: 3E0437Z Introduction of Electrolytic and Water Balance Substance into Central Vein, Percutaneous Approach (ICD-10-PCS; principal; 2017-11-03)
PROC: 3E043GC Introduction of Other Therapeutic Substance into Central Vein, Percutaneous Approach (ICD-10-PCS; 2017-11-03)
DX: D57.1 Sickle-cell disease without crisis (principal); R52 Pain, unspecified; E86.0 Dehydration
CPT/HCPCS: J1170; J7030; 96361; 96374

== ENCOUNTER 2017-11-05 11:34 | Outpatient (CLI) | payer MEDICAID ==
[2017-11-05] MEDS ORDERED: HYDROMORPHONE HCL INJ/PF 2 MG/ML AMPULE INJ PRN (11:45)
[2017-11-05 11:55] VITALS: BP 108/52
[2017-11-05] MEDS ORDERED: NORMAL SALINE 1000 ML 1,000 ML IV PRN (12:25)
== END 2017-11-05 13:29 | disposition home or self-care (01) ==
LOC: II 11:34 → 5TH 11:38 → II 13:29
PROVIDERS: ATTEND Internal Medicine
PROC: 3E0437Z Introduction of Electrolytic and Water Balance Substance into Central Vein, Percutaneous Approach (ICD-10-PCS; principal; 2017-11-05)
PROC: 3E043GC Introduction of Other Therapeutic Substance into Central Vein, Percutaneous Approach (ICD-10-PCS; 2017-11-05)
DX: D57.1 Sickle-cell disease without crisis (principal); R52 Pain, unspecified; E86.0 Dehydration
CPT/HCPCS: 96374; 96361; J1170; 96360; 96375

== ENCOUNTER 2017-11-06 07:38 | Emergency (ER) | payer MEDICAID ==
[2017-11-06 09:57] LABS: ABSOLUTE RETICS # 0.092 10^6/uL (0.028-0.122); HEMATOCRIT 27.2 % (36.0-47.0); HEMOGLOBIN 9.7 g/dL (12.0-15.5); MEAN CORPUSCULAR HEMOGLOBIN 33.1 pg (27.0-33.4); MEAN CORPUSCULAR HGB CONC 35.7 g/dL (32.0-36.0); MEAN CORPUSCULAR VOLUME 93 fl (80-97); PLATELET COUNT 307 10^3/uL (150-450); RED BLOOD COUNT 2.93 10^6/uL (3.72-5.28); RED CELL DISTRIBUTION WIDTH 18.8 % (11.5-14.0); RETICULOCYTE COUNT (AUTO) 3.15 % (0.66-2.85); WHITE BLOOD COUNT 9.5 10^3/uL (4.0-10.5)
[2017-11-06 10:08] LABS: ALANINE AMINOTRANSFERASE 23 U/L (9-52); ALKALINE PHOSPHATASE 75 U/L (38-126); ANION GAP 12 (5-19); ASPARTATE AMINO TRANSFERASE 29 U/L (14-36); BILIRUBIN,DIRECT 0.2 mg/dL (0.0-0.4); BLOOD UREA NITROGEN 5 mg/dL (7-20); CARBON DIOXIDE 23 mmol/L (22-30); CHLORIDE 112 mmol/L (98-107); GLUCOSE 90 mg/dL (75-110); POTASSIUM 3.7 mmol/L (3.6-5.0); SODIUM 147.2 mmol/L (137-145); TOTAL PROTEIN 7.3 g/dL (6.3-8.2)
[2017-11-06] MEDS ORDERED: NORMAL SALINE 1000 ML 1,000 ML IV ONE (10:12)
[2017-11-06] MEDS ORDERED: HYDROMORPHONE HCL INJ/PF 2 MG/ML AMPULE IV ONE ×2 (10:12→12:34)
--- NOTE | 2017-11-06 10:12 | ER Document Report ---
ED Medical Screen (RME) - General Chief Complaint: Sickle Cell Crisis Stated Complaint: POSSIBLE SICKLE CELL CRISIS Mode of Arrival: Ambulatory TRAVEL OUTSIDE OF THE [place] IN LAST 30 DAYS: No - HPI Notes: 11/06/17 10:14 22 yr old female with a medical history of sick cell crisis presents who is in crisis that started x 2 days ago. pain is 6/10 sharp and shooting with lower back pain, which is typical with her sickle cell crisis. She follows with Dr. Moreira and so she went to that appointment. States she has been drinking fluids and taking oxycodone at home. Her last menstrual period was October 29, 2017, denies has a port in her right chest wall. Denies fevers, chills, palpitations, shortness of breath, dyspnea, nausea, vomiting, diarrhea , abdominal pain, hematuria,blurred vision, double vision, loss of vision, speech changes, LH, dizziness, syncope, headaches, wheezing, ST, URI, neck pain , weakness, bowel or bladder dysfunction, saddle anesthesia, numbness or tingling in bilateral upper or lower extremities equally, muscle paralysis, weakness in bilateral upper or lower extremities equally or rash. Denies IV drug use. S1 S2 regular lungs CTA right chest port without erythema or swelling. I have greeted and performed a rapid initial assessment of this patient. A comprehensive ED assessment and evaluation of the patient, analysis of test results and completion of medical decision making process will be conducted by an additional ED providers. - Related Data Allergies/Adverse Reactions: morphine Allergy (Severe, Verified 11/06/17 07:53) RASH,SWELLING jacob peppers Adverse Reaction (Severe, Uncoded 10/06/17 11:48) throat closes Past Medical History - Social History Family history: Reviewed & Not Pertinent, Other - Pt was adopted. Does not know family history - Past Medical History Cardiac Medical History: Reports: Hx DVT - RUE s/p port placement Pulmonary Medical History: Reports: Hx Asthma, Hx Bronchitis - once in past per patient, Hx Pneumonia Renal/ Medical History: Denies: Hx Peritoneal Dialysis Musculoskeltal Medical History: Reports Hx Musculoskeletal Trauma Psychiatric Medical History: Reports: Hx Anxiety, Hx Depression - anxiety Past Surgical History: Reports: Hx Cholecystectomy - 06/28/2015, Hx Vascular Surgery - port put in December,, Other - Port-A-Cath in right upper chest - Immunizations Immunizations up to date: Yes Hx Diphtheria, Pertussis, Tetanus Vaccination: Yes History of Influenza Vaccine for 12/2016 - 05/2017 Season: Yes Influenza Administration Date for 12/2016 - 05/2017 Season: 03/11/18 Physical Exam - Vital signs Vitals: Temp Pulse Resp BP Pulse Ox 98.6 F 74 16 99/47 L 98 11/06/17 08:14 11/06/17 08:14 11/06/17 08:14 11/06/17 08:14 11/06/17 08:14 Course - Vital Signs Vital signs: Temp Pulse Resp BP Pulse Ox 98.6 F 74 12 96/58 L 100 11/06/17 08:14 11/06/17 08:14 11/06/17 12:42 11/06/17 12:42 11/06/17 12:42 - Laboratory Result Diagrams: 11/06/17 09:34 11/06/17 09:34 Laboratory results interpreted by me: 11/06/17 11/06/17 11/06/17 09:34 09:34 11:48 RBC 2.93 L Hgb 9.7 L Hct 27.2 L RDW 18.8 H Eosinophils % (Manual) 10 H Absolute Eos (Manual) 1.0 H Retic Count (auto) 3.15 H Sodium 147.2 H Chloride 112 H BUN 5 L Creatinine 0.51 L Total Bilirubin 4.0 H Urine Urobilinogen 4.0 H Doctor's Discharge - Discharge Clinical Impression: Sickle cell crisis, Back pain Condition: Stable Disposition: HOME, SELF-CARE Instructions: Intravenous (IV) Fluids ([facility]), Oral Narcotic Medication ([facility]), Sickle Cell Crisis ([facility]) Additional Instructions: REST, DRINK PLENTY OF FLUIDS. CONTINUE YOUR USUAL MEDS. FOLLOW UP WITH DR. MOREIRA SCHEDULED. RETURN TO E.R. IF PROBLEMS. Referrals: JOIE MOREIRA MD [Primary Care Provider] - Follow up as needed
--- NOTE | 2017-11-06 10:23 | ER Document Report ---
ED General - General Chief Complaint: Sickle Cell Crisis Stated Complaint: POSSIBLE SICKLE CELL CRISIS Time Seen by Provider: 11/06/17 10:19 Mode of Arrival: Ambulatory Information source: Patient TRAVEL OUTSIDE OF THE [place] IN LAST 30 DAYS: No - HPI Onset: Other - 2 DAYS Onset/Duration: Gradual Quality of pain: Dull, Pressure, Throbbing Severity: Moderate Associated symptoms: denies: Chest pain, Chills, Nonproductive cough, Productive cough, Fever, Nausea, Vomiting, Shortness of breath Exacerbated by: Movement Relieved by: Remaining still Similar symptoms previously: Yes Recently seen / treated by doctor: No - Related Data Allergies/Adverse Reactions: morphine Allergy (Severe, Verified 11/06/17 07:53) RASH,SWELLING jacob peppers Adverse Reaction (Severe, Uncoded 10/06/17 11:48) throat closes Past Medical History - General Information source: Patient - Social History Smoking Status: Unknown if Ever Smoked Cigarette use (# per day): No Chew tobacco use (# tins/day): No Frequency of alcohol use: None Drug Abuse: None Lives with: Family Family History: Reviewed & Not Pertinent, Other - Sickle cell Patient has suicidal ideation: No Patient has homicidal ideation: No - Past Medical History Cardiac Medical History: Reports: Hx DVT - RUE s/p port placement Pulmonary Medical History: Reports: Hx Asthma, Hx Bronchitis - once in past per patient, Hx Pneumonia Neurological Medical History: Reports: None Endocrine Medical History: Reports: None Renal/ Medical History: Reports: None. Denies: Hx Peritoneal Dialysis Malignancy Medical History: Reports: None GI Medical History: Reports: None Musculoskeletal Medical History: Reports Hx Musculoskeletal Trauma Psychiatric Medical History: Reports: Hx Anxiety, Hx Depression - anxiety Past Surgical History: Reports: Hx Cholecystectomy - 06/28/2015, Hx Vascular Surgery - port put in December,, Other - Port-A-Cath in right upper chest - Immunizations Immunizations up to date: Yes Hx Diphtheria, Pertussis, Tetanus Vaccination: Yes Review of Systems - Review of Systems Constitutional: No symptoms reported. denies: Chills, Fever EENT: No symptoms reported Cardiovascular: No symptoms reported Respiratory: No symptoms reported Gastrointestinal: No symptoms reported Genitourinary: No symptoms reported Female Genitourinary: No symptoms reported Musculoskeletal: See HPI Skin: No symptoms reported Neurological/Psychological: No symptoms reported Physical Exam - Vital signs Vitals: Temp Pulse Resp BP Pulse Ox 98.6 F 74 16 99/47 L 98 11/06/17 08:14 11/06/17 08:14 11/06/17 08:14 11/06/17 08:14 11/06/17 08:14 Interpretation: Hypotensive. No: Tachycardic, Tachypneic, Febrile - General General appearance: Appears well, Alert In distress: None - HEENT Head: Normocephalic Eyes: Normal Conjunctiva: Normal Ears: Normal Nasal: Normal Mouth/Lips: Normal Mucous membranes: Normal Neck: Normal, Supple - Respiratory Respiratory status: No respiratory distress Breath sounds: Normal - Cardiovascular Rhythm: Regular Heart sounds: Normal auscultation Murmur: No - Abdominal Inspection: Normal Distension: No distension - Back Back: Tender - VERT. PROCESSES L1,L2,L3,L4. - Neurological Neuro grossly intact: Yes Cognition: Normal Orientation: AAOx4 - Psychological Associated symptoms: Normal affect, Normal mood - Skin Skin Temperature: Warm Skin Moisture: Dry Skin Color: Normal Skin Turgor: Elastic Course - Re-evaluation Re-evalutation: 11/06/17 12:34 Patient reports partial relief of pain. Results of laboratory testing discussed. Discussed treatment options, outpatient observation versus at home treatment. Patient elects to go home. - Vital Signs Vital signs: Temp Pulse Resp BP Pulse Ox 98.6 F 74 17 103/66 100 11/06/17 08:14 11/06/17 08:14 11/06/17 11:31 11/06/17 11:31 11/06/17 11:31 - Laboratory Result Diagrams: 11/06/17 09:34 11/06/17 09:34 Laboratory results interpreted by me: 11/06/17 11/06/17 11/06/17 09:34 09:34 11:48 RBC 2.93 L Hgb 9.7 L Hct 27.2 L RDW 18.8 H Eosinophils % (Manual) 10 H Absolute Eos (Manual) 1.0 H Retic Count (auto) 3.15 H Sodium 147.2 H Chloride 112 H BUN 5 L Creatinine 0.51 L Total Bilirubin 4.0 H Urine Urobilinogen 4.0 H Discharge - Discharge Clinical Impression: Sickle cell crisis Back pain Qualifiers: Back pain location: low back pain Chronicity: acute Back pain laterality: midline Sciatica presence: without sciatica Qualified Code(s): M54.5 - Low back pain Condition: Stable Disposition: HOME, SELF-CARE Instructions: Sickle Cell Crisis ([facility]), Oral Narcotic Medication ([facility]), Intravenous (IV) Fluids ([facility]) Additional Instructions: REST, DRINK PLENTY OF FLUIDS. CONTINUE YOUR USUAL MEDS. FOLLOW UP WITH DR. MOREIRA SCHEDULED. RETURN TO E.R. IF PROBLEMS. Referrals: JOIE MOREIRA MD [Primary Care Provider] - Follow up as needed
[2017-11-06 10:42] LABS: ABSOLUTE LYMPHOCYTES# (MANUAL) 1.7 10^3/uL (0.5-4.7); ABSOLUTE MONOCYTES # (MANUAL) 0.9 10^3/uL (0.1-1.4); ANISOCYTOSIS 2+; BASOPHILS % (MANUAL) 0 % (0-2); EOSINOPHILS % (MANUAL) 10 % (0-6); LYMPHOCYTES % (MANUAL) 18 % (13-45); MONOCYTES % (MANUAL) 9 % (3-13); NUCLEATED RED BLOOD CELLS 2 /100 WBC (0); OVALOCYTES 2+; PLATELET CLUMPS PRESENT; POIKILOCYTOSIS 3+; SEGMENTED NEUTROPHILS % (MAN) 63 % (42-78); TARGET CELLS 3+; TOTAL CELLS COUNTED 100
[2017-11-06 10:43] LABS: HYPOCHROMASIA 1+; POLYCHROMASIA 2+; SCHISTOCYTES SLIGHT
--- NOTE | 2017-11-06 11:35 | EKG REPORT ---
SEVERITY:- NORMAL ECG - SINUS RHYTHM : Confirmed by: Mary Vega MD 06-Nov-2017 11:34:28
[2017-11-06 12:03] LABS: APPEARANCE,URINE CLEAR; BILIRUBIN,URINE NEGATIVE (NEGATIVE); COLOR,URINE YELLOW; GLUCOSE, URINE NEGATIVE (NEGATIVE); KETONES,URINE NEGATIVE (NEGATIVE); LEUKOCYTE ESTERASE,URINE NEGATIVE (NEGATIVE); NITRITE,URINE NEGATIVE (NEGATIVE); PROTEIN,URINE NEGATIVE (NEGATIVE); URINE SPECIFIC GRAVITY 1.011
[2017-11-06 12:44] VITALS: BP 96/58
== END 2017-11-06 12:50 | disposition home or self-care (01) ==
LOC: ER 07:38
DX: D57.00 Hb-SS disease with crisis, unspecified (principal); M54.5 Low back pain; Z86.718 Personal history of other venous thrombosis and embolism; Z90.49 Acquired absence of other specified parts of digestive tract; Z88.6 Allergy status to analgesic agent
CPT/HCPCS: 93005; 96376; 99284; 96361; 96374; 36415; 85025; 85045; 80053; 81001; 93010; J1170; J7030

== ENCOUNTER 2017-11-07 08:29 | Outpatient (CLI) | payer MEDICAID ==
[2017-11-07 09:06] VITALS: BP 115/56
== END 2017-11-07 10:05 | disposition home or self-care (01) ==
LOC: II 08:29 → 5TH 08:31 → II 10:05
PROVIDERS: ATTEND Internal Medicine
PROC: 3E043GC Introduction of Other Therapeutic Substance into Central Vein, Percutaneous Approach (ICD-10-PCS; principal; 2017-11-07)
PROC: 3E0437Z Introduction of Electrolytic and Water Balance Substance into Central Vein, Percutaneous Approach (ICD-10-PCS; 2017-11-07)
DX: R52 Pain, unspecified (principal); D57.1 Sickle-cell disease without crisis
CPT/HCPCS: 96374; 96375; 96361; J1170; 96360

== ENCOUNTER 2017-11-07 20:08 | Emergency (ER) | payer MEDICAID ==
[2017-11-07] MEDS ORDERED: NORMAL SALINE 1000 ML 1,000 ML IV ONE (23:56)
[2017-11-08 00:30] LABS: ABSOLUTE RETICS # 0.117 10^6/uL (0.028-0.122)
[2017-11-08 00:33] LABS: HEMATOCRIT 23.4 % (36.0-47.0); HEMOGLOBIN 8.4 g/dL (12.0-15.5); MEAN CORPUSCULAR HEMOGLOBIN 32.9 pg (27.0-33.4); MEAN CORPUSCULAR HGB CONC 36.1 g/dL (32.0-36.0); MEAN CORPUSCULAR VOLUME 91 fl (80-97); PLATELET COUNT 289 10^3/uL (150-450); RED BLOOD COUNT 2.56 10^6/uL (3.72-5.28); RED CELL DISTRIBUTION WIDTH 18.8 % (11.5-14.0)
[2017-11-08 00:40] LABS: ALANINE AMINOTRANSFERASE 20 U/L (9-52); ALBUMIN 3.6 g/dL (3.5-5.0); ALKALINE PHOSPHATASE 83 U/L (38-126); ANION GAP 11 (5-19); ASPARTATE AMINO TRANSFERASE 24 U/L (14-36); BILIRUBIN,DIRECT 0.2 mg/dL (0.0-0.4); BILIRUBIN,TOTAL 3.7 mg/dL (0.2-1.3); BLOOD UREA NITROGEN 4 mg/dL (7-20); CALCIUM 8.7 mg/dL (8.4-10.2); CARBON DIOXIDE 23 mmol/L (22-30); CHLORIDE 111 mmol/L (98-107); GLUCOSE 84 mg/dL (75-110); POTASSIUM 3.4 mmol/L (3.6-5.0); SODIUM 144.9 mmol/L (137-145); TOTAL PROTEIN 6.6 g/dL (6.3-8.2)
[2017-11-08 00:54] LABS: BASOPHILS % (MANUAL) 3 % (0-2); EOSINOPHILS % (MANUAL) 12 % (0-6); LYMPHOCYTES % (MANUAL) 40 % (13-45); MONOCYTES % (MANUAL) 3 % (3-13); NUCLEATED RED BLOOD CELLS 2 /100 WBC (0); SEGMENTED NEUTROPHILS % (MAN) 41 % (42-78); TOTAL CELLS COUNTED 100
[2017-11-08 00:57] LABS: ANISOCYTOSIS 2+; HYPOCHROMASIA 2+; POIKILOCYTOSIS 1+; POLYCHROMASIA 1+; SICKLE RED CELLS 1+; TARGET CELLS 1+
[2017-11-08 00:58] LABS: PLATELET COMMENT ADEQUATE
[2017-11-08 00:59] LABS: WHITE BLOOD COUNT 10.6 10^3/uL (4.0-10.5)
[2017-11-08] MEDS ORDERED: POTASSIUM CHLORIDE 20 MEQ/15 ML UDCUP PO ONE (01:07)
--- NOTE | 2017-11-08 01:09 | ER Document Report ---
ED General - General Chief Complaint: Back Pain Stated Complaint: BACK PAIN Time Seen by Provider: 11/07/17 22:38 TRAVEL OUTSIDE OF THE [place] IN LAST 30 DAYS: No - HPI Patient complains to provider of: Back pain chest pain Notes: Patient with history of sickle cell disease coming in today for chest pain back pain. Upon my evaluation patient is resting comfortably no signs of any obvious distress. Patient states she has an increase in her pain medication 8 mg of Dilaudid recently by her transportation escort oncologist. Patient states last time she took her pain medication was earlier in the morning. Denies any fevers chills nausea vomiting diarrhea. - Related Data Allergies/Adverse Reactions: morphine Allergy (Severe, Verified 11/06/17 07:53) RASH,SWELLING jcaob peppers Adverse Reaction (Severe, Uncoded 10/06/17 11:48) throat closes Past Medical History - Social History Smoking Status: Never Smoker Chew tobacco use (# tins/day): No Frequency of alcohol use: None Drug Abuse: None Family History: Reviewed & Not Pertinent, Other - Sickle cell Patient has suicidal ideation: No Patient has homicidal ideation: No - Past Medical History Cardiac Medical History: Reports: Hx DVT - RUE s/p port placement Pulmonary Medical History: Reports: Hx Asthma, Hx Bronchitis - once in past per patient, Hx Pneumonia Renal/ Medical History: Denies: Hx Peritoneal Dialysis Musculoskeletal Medical History: Reports Hx Musculoskeletal Trauma Psychiatric Medical History: Reports: Hx Anxiety, Hx Depression - anxiety Past Surgical History: Reports: Hx Cholecystectomy - 06/28/2015, Hx Vascular Surgery - port put in December,, Other - Port-A-Cath in right upper chest - Immunizations Immunizations up to date: Yes Hx Diphtheria, Pertussis, Tetanus Vaccination: Yes Review of Systems - Review of Systems Constitutional: Other - Pain EENT: No symptoms reported Cardiovascular: No symptoms reported Respiratory: No symptoms reported Gastrointestinal: No symptoms reported Genitourinary: No symptoms reported Female Genitourinary: No symptoms reported Musculoskeletal: No symptoms reported Skin: No symptoms reported Hematologic/Lymphatic: No symptoms reported Neurological/Psychological: No symptoms reported -: Yes All other systems reviewed and negative Physical Exam - Vital signs Vitals: Temp Pulse Resp BP Pulse Ox 98.9 F 66 18 110/66 100 11/07/17 20:25 11/07/17 20:25 11/07/17 20:25 11/07/17 20:25 11/07/17 20:25 Interpretation: Normal - General General appearance: Appears well, Alert - HEENT Head: Normocephalic, Atraumatic Eyes: Normal Pupils: PERRL - Respiratory Respiratory status: No respiratory distress Chest status: Nontender Breath sounds: Normal Chest palpation: Normal - Cardiovascular Rhythm: Regular Heart sounds: Normal auscultation Murmur: No - Abdominal Inspection: Normal Distension: No distension Bowel sounds: Normal Tenderness: Nontender Organomegaly: No organomegaly - Back Back: Normal, Nontender - Extremities General upper extremity: Normal inspection, Nontender, Normal color, Normal ROM , Normal temperature General lower extremity: Normal inspection, Nontender, Normal color, Normal ROM , Normal temperature, Normal weight bearing. No: Glen's sign - Neurological Neuro grossly intact: Yes Cognition: Normal Orientation: AAOx4 [place] Coma Scale Eye Opening: Spontaneous [place] Coma Scale Verbal: Oriented [place] Coma Scale Motor: Obeys Commands [place] Coma Scale Total: 15 Speech: Normal Motor strength normal: LUE, RUE, LLE, RLE Sensory: Normal - Psychological Associated symptoms: Normal affect, Normal mood - Skin Skin Temperature: Warm Skin Moisture: Dry Skin Color: Normal Course - Re-evaluation Re-evalutation: 11/08/17 06:19 Reticulocyte count slightly elevated LDH is also just slightly elevated but no signs of significant for a acute crisis. Patient chest x-ray is otherwise negative. Patient after administration of Dilaudid and ketorolac was seen sleeping and was monitored for quite some time with no exacerbation of her pain. Discharge patient home she is to follow-up with her primary care physician. - Vital Signs Vital signs: Temp Pulse Resp BP Pulse Ox 98.3 F 50 L 17 113/54 L 97 11/08/17 06:10 11/08/17 06:10 11/08/17 06:10 11/08/17 06:10 11/08/17 06:10 - Laboratory Result Diagrams: 11/08/17 00:16 11/08/17 00:16 Laboratory results interpreted by me: 11/08/17 11/08/17 00:16 00:16 WBC 10.6 H RBC 2.56 L Hgb 8.4 L Hct 23.4 L MCHC 36.1 H RDW 18.8 H Seg Neuts % (Manual) 41 L Eosinophils % (Manual) 12 H Basophils % (Manual) 3 H Abs Neuts (Manual) 0.0 L Abs Lymphs (Manual) 0.0 L Abs Monocytes (Manual) 0.0 L Retic Count (auto) 4.50 H Potassium 3.4 L Chloride 111 H BUN 4 L Creatinine 0.48 L Total Bilirubin 3.7 H Lactate Dehydrogenase 249 H Discharge - Discharge Clinical Impression: Back pain, Sickle cell anemia Condition: Good Disposition: HOME, SELF-CARE Instructions: Low Back Pain ([facility]), Sickle Cell Crisis ([facility]) Additional Instructions: Laboratory studies not show any signs of significant crisis at this time. Please continue taking her home prescribed pain medication return to the ER symptoms worsen. Referrals: JOIE MOREIRA MD [Primary Care Provider] - Follow up as needed
[2017-11-08] MEDS ORDERED: KETOROLAC TROMETHAMINE INJ/PF 30 MG/1 ML SDV IV ONE (01:19)
[2017-11-08] MEDS ORDERED: HYDROMORPHONE HCL INJ/PF 2 MG/ML AMPULE IV ONE (01:19)
--- NOTE | 2017-11-08 02:25 | RADIOLOGY REPORT (SQ) ---
EXAM DESCRIPTION: XR CHEST 2 VIEWS COMPLETED DATE/TME: 11/07/2017 22:38 CLINICAL HISTORY: 22 years Female, chest pain COMPARISON: October 15, 2018 CT, October 07, 2017. FINDINGS: Adequate lung volume, clear parenchyma, normal cardiac silhouette, right miniport central line tip at the SVC, biconcave vertebral bodies consistent with history of sickle cell, and grossly intact bony thorax. Stable. IMPRESSION: No acute cardiopulmonary findings.
[2017-11-08 06:12] VITALS: BP 113/54
== END 2017-11-08 06:12 | disposition home or self-care (01) ==
LOC: ER 20:08
DX: M54.9 Dorsalgia, unspecified (principal); R07.9 Chest pain, unspecified; D57.1 Sickle-cell disease without crisis; R74.0 Nonspecific elevation of levels of transaminase and lactic acid dehydrogenase [LDH]; J45.909 Unspecified asthma, uncomplicated; Z79.891 Long term (current) use of opiate analgesic; Z88.5 Allergy status to narcotic agent; Z86.718 Personal history of other venous thrombosis and embolism
CPT/HCPCS: 99284; 96361; 96374; 96375; 36415; 83615; 85025; 85045; 80053; 71046; J1885; J1170; J3490; J7030

== ENCOUNTER 2017-11-08 21:29 | Emergency (ER) | payer MEDICAID ==
--- NOTE | 2017-11-08 22:51 | ER Document Report ---
ED General - General Chief Complaint: Sickle Cell Crisis Stated Complaint: SICKLE CELL CRISIS Time Seen by Provider: 11/08/17 22:42 Notes: Patient is a 22-year-old female with a history of sickle cell that comes emergency department for chief complaint of pain for the past 3 days including her back, the center of her chest, and her legs. She states that today she threw up 3 times while at home, she has also had a mild cough. She was seen here previous to the vomiting. She denies fever. She denies any particular area of abdominal pain, she denies dysuria, vaginal discharge, she states she is not sexually active. She has had a cholecystectomy. TRAVEL OUTSIDE OF THE [place] IN LAST 30 DAYS: No - Related Data Allergies/Adverse Reactions: morphine Allergy (Severe, Verified 11/06/17 07:53) RASH,SWELLING jacob peppers Adverse Reaction (Severe, Uncoded 10/06/17 11:48) throat closes Past Medical History - General Information source: Patient - Social History Smoking Status: Never Smoker Frequency of alcohol use: None Drug Abuse: None Lives with: Family Family History: Reviewed & Not Pertinent, Other - Sickle cell - Past Medical History Cardiac Medical History: Reports: Hx DVT - RUE s/p port placement Pulmonary Medical History: Reports: Hx Asthma, Hx Bronchitis - once in past per patient, Hx Pneumonia Renal/ Medical History: Denies: Hx Peritoneal Dialysis Musculoskeletal Medical History: Reports Hx Musculoskeletal Trauma Psychiatric Medical History: Reports: Hx Anxiety, Hx Depression - anxiety Past Surgical History: Reports: Hx Cholecystectomy - 06/28/2015, Hx Vascular Surgery - port put in December,, Other - Port-A-Cath in right upper chest - Immunizations Immunizations up to date: Yes Hx Diphtheria, Pertussis, Tetanus Vaccination: Yes Review of Systems - Review of Systems Constitutional: No symptoms reported EENT: No symptoms reported Cardiovascular: No symptoms reported Respiratory: No symptoms reported Gastrointestinal: No symptoms reported Genitourinary: No symptoms reported Female Genitourinary: No symptoms reported Musculoskeletal: See HPI Skin: No symptoms reported Hematologic/Lymphatic: No symptoms reported Neurological/Psychological: No symptoms reported Physical Exam - Vital signs Vitals: Temp Pulse Resp BP Pulse Ox 98.6 F 67 18 116/57 L 97 11/08/17 21:33 11/08/17 21:33 11/08/17 21:33 11/08/17 21:33 11/08/17 21:33 - Notes Notes: GENERAL: Alert, interacts well. No acute distress. HEAD: Normocephalic, atraumatic. EYES: Pupils equal, round, and reactive to light. Extraocular movements intact. ENT: Oral mucosa moist, tongue midline. NECK: Full range of motion. Supple. Trachea midline. LUNGS: Clear to auscultation bilaterally, no wheezes, rales, or rhonchi. No respiratory distress. HEART: Regular rate and rhythm. No murmur ABDOMEN: Soft, non-tender. Non-distended. Bowel sounds present in all 4 quadrants. EXTREMITIES: Moves all 4 extremities spontaneously. No edema, normal radial and dorsalis pedis pulses bilaterally. No cyanosis. BACK: no cervical, thoracic, lumbar midline tenderness. No saddle anesthesia, normal distal neurovascular exam. NEUROLOGICAL: Alert and oriented x3. Normal speech. [cranial nerves II through XII grossly intact]. PSYCH: Normal affect, normal mood. SKIN: Warm, dry, normal turgor. No rashes or lesions noted. Course - Re-evaluation Re-evalutation: Patient just had a chest x-ray within the past 24 hours which was unremarkable. No tachypnea, hypoxia, or current complaints of shortness of breath. White blood cell count and hemoglobin are very similar to prior. Reticulocyte count is slightly elevated compared to prior. Indirect bilirubin is elevated compared to prior. LFTs and alk phos are unremarkable. Potassium level the same as prior. No tachycardia, hypotension, or fever. Urinalysis unremarkable. Patient needed to be remedicated, after this she became very comfortable. She states that she feels good now and she wants to go home. I did discuss admission because of her return and trending labs for her sickle cell crisis, she declines, she states that she will go home, take her meds, follow-up with her provider, and return if she worsens. Return precautions discussed. Stable at time of discharge. - Vital Signs Vital signs: Temp Pulse Resp BP Pulse Ox 98.6 F 67 18 116/57 L 97 11/08/17 21:33 11/08/17 21:33 11/08/17 21:33 11/08/17 21:33 11/08/17 21:33 - Laboratory Result Diagrams: 11/08/17 23:46 11/08/17 23:46 Laboratory results interpreted by me: 11/08/17 11/08/17 11/09/17 23:46 23:46 01:27 WBC 11.5 H RBC 2.55 L Hgb 8.2 L Hct 23.2 L RDW 19.1 H Eosinophils % 10.6 H Absolute Eosinophils 1.2 H Retic Count (auto) 5.41 H Absolute Retic 0.138 H Sodium 145.4 H Potassium 3.4 L Chloride 112 H BUN 5 L Total Bilirubin 5.1 H Direct Bilirubin 0.7 H Urine Urobilinogen 4.0 H Discharge - Discharge Clinical Impression: Sickle cell crisis Condition: Stable Disposition: HOME, SELF-CARE Additional Instructions: Continue current medications. Follow-up with your provider within the next several days. Return if you worsen in anyway including returned vomiting, severe pain, difficulty breathing, fever, or any other concerning or worsening symptoms. Referrals: JOIE MOREIRA MD [Primary Care Provider] - Follow up as needed
[2017-11-08] MEDS: ONDANSETRON HCL INJ/PF 4 MG/2 ML SDV IV ONE (23:39)
[2017-11-08] MEDS: NORMAL SALINE 1000 ML 1,000 ML IV ONE (23:41)
[2017-11-08] MEDS: DIPHENHYDRAMINE HCL 50 MG/ML VIAL IV ONE (23:53)
[2017-11-08] MEDS: HYDROMORPHONE HCL INJ/PF 2 MG/ML AMPULE IV ONE (23:53)
[2017-11-09 00:06] LABS: ABSOLUTE BASOPHILS # (AUTO) 0.2 10^3/uL (0.0-0.2); ABSOLUTE EOSINOPHILS # (AUTO) 1.2 10^3/uL (0.0-0.6); ABSOLUTE LYMPHOCYTES (AUTO) 3.6 10^3/uL (0.5-4.7); ABSOLUTE MONOCYTES (AUTO) 0.9 10^3/uL (0.1-1.4); ABSOLUTE NEUT (AUTO) 5.6 10^3/uL (1.7-8.2); ABSOLUTE RETICS # 0.138 10^6/uL (0.028-0.122); BASOPHILS % (AUTO) 1.6 % (0-2); EOSINOPHILS % (AUTO) 10.6 % (0-6); HEMATOCRIT 23.2 % (36.0-47.0); HEMOGLOBIN 8.2 g/dL (12.0-15.5); LYMPHOCYTES % (AUTO) 31.2 % (13-45); MEAN CORPUSCULAR HEMOGLOBIN 32.3 pg (27.0-33.4); MEAN CORPUSCULAR HGB CONC 35.6 g/dL (32.0-36.0); MEAN CORPUSCULAR VOLUME 91 fl (80-97); MONOCYTES % (AUTO) 7.6 % (3-13); PLATELET COUNT 290 10^3/uL (150-450); RED BLOOD COUNT 2.55 10^6/uL (3.72-5.28); RED CELL DISTRIBUTION WIDTH 19.1 % (11.5-14.0); RETICULOCYTE COUNT (AUTO) 5.41 % (0.66-2.85); TOTAL CELLS COUNTED % (AUTO) 100 %; WHITE BLOOD COUNT 11.5 10^3/uL (4.0-10.5)
[2017-11-09 00:32] LABS: ALANINE AMINOTRANSFERASE 24 U/L (9-52); ALBUMIN 3.5 g/dL (3.5-5.0); ALKALINE PHOSPHATASE 88 U/L (38-126); ANION GAP 10 (5-19); ASPARTATE AMINO TRANSFERASE 24 U/L (14-36); BILIRUBIN,DIRECT 0.7 mg/dL (0.0-0.4); BILIRUBIN,TOTAL 5.1 mg/dL (0.2-1.3); BLOOD UREA NITROGEN 5 mg/dL (7-20); CALCIUM 8.6 mg/dL (8.4-10.2); CARBON DIOXIDE 23 mmol/L (22-30); CHLORIDE 112 mmol/L (98-107); GLUCOSE 95 mg/dL (75-110); POTASSIUM 3.4 mmol/L (3.6-5.0); SODIUM 145.4 mmol/L (137-145); TOTAL PROTEIN 6.4 g/dL (6.3-8.2)
[2017-11-09 00:45] LABS: ANISOCYTOSIS 2+; POLYCHROMASIA SLIGHT
[2017-11-09 00:46] LABS: BURR CELLS SLIGHT; HYPOCHROMASIA 1+; SICKLE RED CELLS 1+
[2017-11-09 00:47] LABS: PLATELET COMMENT ADEQUATE; PLATELET LARGE PRESENT; TARGET CELLS 1+
[2017-11-09] MEDS: HYDROMORPHONE HCL INJ/PF 2 MG/ML AMPULE IV ONE ×2 (02:20→04:15)
[2017-11-09] MEDS: DIPHENHYDRAMINE HCL 50 MG/ML VIAL IV ONE ×2 (02:24→04:18)
[2017-11-09 03:19] LABS: APPEARANCE,URINE CLEAR; BILIRUBIN,URINE NEGATIVE (NEGATIVE); COLOR,URINE YELLOW; GLUCOSE, URINE NEGATIVE (NEGATIVE); KETONES,URINE NEGATIVE (NEGATIVE); LEUKOCYTE ESTERASE,URINE NEGATIVE (NEGATIVE); NITRITE,URINE NEGATIVE (NEGATIVE); PROTEIN,URINE NEGATIVE (NEGATIVE); URINE SPECIFIC GRAVITY 1.011
[2017-11-09] MEDS: NORMAL SALINE 1000 ML 1,000 ML IV ONE (04:15)
[2017-11-09 06:42] VITALS: BP 110/53
== END 2017-11-09 05:40 | disposition home or self-care (01) ==
LOC: ER 21:29
DX: D57.00 Hb-SS disease with crisis, unspecified (principal); Z88.6 Allergy status to analgesic agent; Z86.718 Personal history of other venous thrombosis and embolism; Z90.49 Acquired absence of other specified parts of digestive tract
CPT/HCPCS: 36591; 99284; 96360; 96361; 36415; 84703; 85025; 85045; 80053; 81001; J1200 ×2; J1170 ×2; J2405; J7030 ×2

== ENCOUNTER 2017-11-10 12:03 | Outpatient (CLI) | payer MEDICAID ==
[2017-11-10] MEDS ORDERED: NORMAL SALINE 1000 ML 1,000 ML IV PRN (12:49)
[2017-11-10] MEDS ORDERED: HYDROMORPHONE HCL INJ/PF 2 MG/ML AMPULE IV PRN (12:50)
[2017-11-10] MEDS ORDERED: HYDROMORPHONE HCL INJ/PF 2 MG/ML AMPULE IV ONE (15:00)
[2017-11-10 15:43] VITALS: BP 107/59
== END 2017-11-10 16:01 | disposition home or self-care (01) ==
LOC: II 12:03 → 2S 12:14 → II 16:01
PROVIDERS: ATTEND Internal Medicine
PROC: 3E033GC Introduction of Other Therapeutic Substance into Peripheral Vein, Percutaneous Approach (ICD-10-PCS; principal; 2017-11-10)
PROC: 3E0337Z Introduction of Electrolytic and Water Balance Substance into Peripheral Vein, Percutaneous Approach (ICD-10-PCS; 2017-11-10)
DX: D57.1 Sickle-cell disease without crisis (principal); R52 Pain, unspecified; E86.0 Dehydration
CPT/HCPCS: J1170; J7030; 96361; 96374

== ENCOUNTER 2017-11-11 11:48 | Outpatient (CLI) | payer MEDICAID ==
[2017-11-11] MEDS ORDERED: HYDROMORPHONE HCL INJ/PF 2 MG/ML AMPULE IV ONE (12:00)
[2017-11-11] MEDS ORDERED: NORMAL SALINE 1000 ML 1,000 ML IV PRN (12:00)
[2017-11-11 12:34] VITALS: BP 108/62
== END 2017-11-11 14:10 | disposition short-term general hospital (02) ==
LOC: II 11:48 → 5TH 11:52 → II 14:10
PROVIDERS: ATTEND Internal Medicine
PROC: 3E043GC Introduction of Other Therapeutic Substance into Central Vein, Percutaneous Approach (ICD-10-PCS; principal; 2017-11-11)
PROC: 3E0437Z Introduction of Electrolytic and Water Balance Substance into Central Vein, Percutaneous Approach (ICD-10-PCS; 2017-11-11)
DX: Z76.89 Persons encountering health services in other specified circumstances (principal)
CPT/HCPCS: 96375; 96360; J1170; 96361; 96374

== ENCOUNTER 2017-11-11 14:21 | Inpatient (IN) | payer MEDICAID ==
[2017-11-11] MEDS ORDERED: NORMAL SALINE 1000 ML 1,000 ML IV ONE (16:02)
--- NOTE | 2017-11-11 16:07 | ER Document Report ---
ED Medical Screen (RME) - General Chief Complaint: Sickle Cell Crisis Stated Complaint: SICKLE CELL CRISIS Time Seen by Provider: 11/11/17 15:53 TRAVEL OUTSIDE OF THE [place] IN LAST 30 DAYS: No - HPI Notes: 11/11/17 16:04 Patient seen and by marketing financial analyst oncologist for admission for pain control. - Related Data Allergies/Adverse Reactions: morphine Allergy (Severe, Verified 11/11/17 14:25) RASH,SWELLING jacob peppers Adverse Reaction (Severe, Uncoded 11/11/17 14:25) throat closes Past Medical History - Social History Chew tobacco use (# tins/day): No Frequency of alcohol use: None Drug Abuse: None Family history: Reviewed & Not Pertinent, Other - Pt was adopted. Does not know family history - Past Medical History Cardiac Medical History: Reports: Hx DVT - RUE s/p port placement Pulmonary Medical History: Reports: Hx Asthma, Hx Bronchitis - once in past per patient, Hx Pneumonia - 2014 Renal/ Medical History: Denies: Hx Peritoneal Dialysis Musculoskeltal Medical History: Reports Hx Musculoskeletal Trauma Psychiatric Medical History: Reports: Hx Anxiety, Hx Depression Past Surgical History: Reports: Hx Cholecystectomy - 06/28/2015, Hx Vascular Surgery - port put in December,, Other - Port-A-Cath in right upper chest - Immunizations Immunizations up to date: Yes Hx Diphtheria, Pertussis, Tetanus Vaccination: Yes History of Influenza Vaccine for 12/2016 - 05/2017 Season: Yes Influenza Administration Date for 12/2016 - 05/2017 Season: 03/11/18 Review of Systems - Review of Systems Constitutional: Other - Pain control EENT: No symptoms reported Cardiovascular: No symptoms reported Respiratory: No symptoms reported Gastrointestinal: No symptoms reported Genitourinary: No symptoms reported Female Genitourinary: No symptoms reported Musculoskeletal: No symptoms reported Skin: No symptoms reported Hematologic/Lymphatic: No symptoms reported Neurological/Psychological: No symptoms reported Physical Exam - Vital signs Vitals: Temp Pulse Resp BP Pulse Ox 98 F 65 18 112/61 97 11/11/17 14:28 11/11/17 14:28 11/11/17 14:28 11/11/17 14:28 11/11/17 14:28 - General General appearance: Appears well In distress: None - Respiratory Respiratory status: No respiratory distress Chest status: Nontender Breath sounds: Normal Chest palpation: Normal Course - Vital Signs Vital signs: Temp Pulse Resp BP Pulse Ox 98 F 65 18 112/61 97 11/11/17 14:28 11/11/17 14:28 11/11/17 14:28 11/11/17 14:28 11/11/17 14:28 Doctor's Discharge - Discharge Referrals: JOIE MOREIRA MD [Primary Care Provider] - Follow up as needed
[2017-11-11 16:47] LABS: ABSOLUTE BASOPHILS # (AUTO) 0.2 10^3/uL (0.0-0.2); ABSOLUTE LYMPHOCYTES (AUTO) 4.3 10^3/uL (0.5-4.7); ABSOLUTE MONOCYTES (AUTO) 1.2 10^3/uL (0.1-1.4); ABSOLUTE NEUT (AUTO) 8.3 10^3/uL (1.7-8.2); ABSOLUTE RETICS # 0.284 10^6/uL (0.028-0.122); BASOPHILS % (AUTO) 1.6 % (0-2); EOSINOPHILS % (AUTO) 6.4 % (0-6); HEMOGLOBIN 8.4 g/dL (12.0-15.5); LYMPHOCYTES % (AUTO) 28.7 % (13-45); MEAN CORPUSCULAR HEMOGLOBIN 34.1 pg (27.0-33.4); MEAN CORPUSCULAR HGB CONC 36.4 g/dL (32.0-36.0); MEAN CORPUSCULAR VOLUME 94 fl (80-97); PLATELET COUNT 317 10^3/uL (150-450); RED BLOOD COUNT 2.45 10^6/uL (3.72-5.28); RED CELL DISTRIBUTION WIDTH 21.5 % (11.5-14.0); SEGMENTED NEUTROPHILS % (AUTO) 55.3 % (42-78); TOTAL CELLS COUNTED % (AUTO) 100 %; WHITE BLOOD COUNT 15.1 10^3/uL (4.0-10.5)
[2017-11-11 17:04] LABS: ALANINE AMINOTRANSFERASE 29 U/L (9-52); ALBUMIN 3.8 g/dL (3.5-5.0); ALKALINE PHOSPHATASE 70 U/L (38-126); ANION GAP 9 (5-19); ASPARTATE AMINO TRANSFERASE 47 U/L (14-36); BILIRUBIN,DIRECT 0.1 mg/dL (0.0-0.4); BILIRUBIN,TOTAL 6.6 mg/dL (0.2-1.3); BLOOD UREA NITROGEN 3 mg/dL (7-20); CALCIUM 8.4 mg/dL (8.4-10.2); CARBON DIOXIDE 27 mmol/L (22-30); CHLORIDE 112 mmol/L (98-107); GLUCOSE 84 mg/dL (75-110); POTASSIUM 3.5 mmol/L (3.6-5.0); SODIUM 147.6 mmol/L (137-145); TOTAL PROTEIN 6.9 g/dL (6.3-8.2)
[2017-11-11] MEDS ORDERED: HYDROMORPHONE HCL INJ/PF 2 MG/ML AMPULE IV ONE (17:07)
--- NOTE | 2017-11-11 17:18 | ER Document Report ---
ED General - General Chief Complaint: Sickle Cell Crisis Stated Complaint: SICKLE CELL CRISIS Time Seen by Provider: 11/11/17 15:53 TRAVEL OUTSIDE OF THE [place] IN LAST 30 DAYS: No - HPI Notes: 22-year-old female with history of sickle cell disease presents with increasing back pain that started last night. She was seen by Dr. Cameron, cigarette machine operator this morning. She was sent to the infusion center for 1 L of fluids and 3 mg of Dilaudid. She was told to be a direct admission, but there are no beds in the hospital so was sent to the emergency department. She denies any nausea, vomiting, diarrhea. No pain with urination. She has occasional abdominal pain surrounding her cholecystectomy incisions. She has severe back pain. She was seen in the emergency department multiple times within the past 2 weeks. Her retic count has been gradually increasing. Denies any chest pain, cough, fever , shortness of breath. - Related Data Allergies/Adverse Reactions: morphine Allergy (Severe, Verified 11/11/17 14:25) RASH,SWELLING jacob peppers Adverse Reaction (Severe, Uncoded 11/11/17 14:25) throat closes Past Medical History - Social History Smoking Status: Never Smoker Chew tobacco use (# tins/day): No Frequency of alcohol use: None Drug Abuse: None Family History: Reviewed & Not Pertinent, Other - Sickle cell Patient has suicidal ideation: No Patient has homicidal ideation: No - Past Medical History Cardiac Medical History: Reports: Hx DVT - RUE s/p port placement Pulmonary Medical History: Reports: Hx Asthma, Hx Bronchitis - once in past per patient, Hx Pneumonia - 2014 Renal/ Medical History: Denies: Hx Peritoneal Dialysis Musculoskeletal Medical History: Reports Hx Musculoskeletal Trauma Psychiatric Medical History: Reports: Hx Anxiety, Hx Depression Past Surgical History: Reports: Hx Cholecystectomy - 06/28/2015, Hx Vascular Surgery - port put in December,, Other - Port-A-Cath in right upper chest - Immunizations Immunizations up to date: Yes Hx Diphtheria, Pertussis, Tetanus Vaccination: Yes Review of Systems - Review of Systems Notes: Constitutional: Negative for fever. HENT: Negative for sore throat. Eyes: Negative for visual changes. Cardiovascular: Negative for chest pain. Respiratory: Negative for shortness of breath. Gastrointestinal: Negative for abdominal pain, vomiting or diarrhea. Pain over cholecystectomy incisions Genitourinary: Negative for dysuria. Musculoskeletal: Positive for back pain and arthralgias Skin: Negative for rash. Neurological: Negative for headaches, weakness or numbness. 10 point ROS negative except as marked above and in HPI. Physical Exam - Vital signs Vitals: Temp Pulse Resp BP Pulse Ox 98 F 65 18 112/61 97 11/11/17 14:28 11/11/17 14:28 11/11/17 14:28 11/11/17 14:28 11/11/17 14:28 - Notes Notes: PHYSICAL EXAMINATION: GENERAL: Well-appearing, well-nourished and in no acute distress. HEAD: Atraumatic, normocephalic. EYES: Pupils equal round and reactive to light, extraocular movements intact, scleral icterus ENT: nares patent, oropharynx clear without exudates. Moist mucous membranes. NECK: Normal range of motion, supple without lymphadenopathy LUNGS: Breath sounds clear to auscultation bilaterally and equal. No wheezes rales or rhonchi. HEART: Regular rate and rhythm, no chest wall tenderness ABDOMEN: Soft, normoactive bowel sounds. No guarding, no rebound. No masses appreciated. Mild upper abdominal tenderness EXTREMITIES: Normal range of motion, no pitting or edema. No cyanosis. NEUROLOGICAL: Cranial nerves grossly intact. Normal speech, normal gait. Normal sensory and motor exams. PSYCH: Normal mood, normal affect. SKIN: Warm, Dry, normal turgor, no rashes or lesions noted. Course - Re-evaluation Re-evalutation: 11/11/17 17:17 Pain treated. Will discuss with hematology. Temp Pulse Resp BP Pulse Ox 98 F 65 18 112/61 97 11/11/17 14:28 11/11/17 14:28 11/11/17 14:28 11/11/17 14:28 11/11/17 14:28 11/11/17 17:[address] Cameron, hematology. He requested admission to hospitalist. Discussed with hospitalist for admission. Labs pending. - Vital Signs Vital signs: Temp Pulse Resp BP Pulse Ox 98 F 65 18 112/61 97 11/11/17 14:28 11/11/17 14:28 11/11/17 14:28 11/11/17 14:28 11/11/17 14:28 - Laboratory Result Diagrams: 11/11/17 16:29 11/11/17 16:29 Laboratory results interpreted by me: 11/11/17 16:29 Sodium 147.6 H Potassium 3.5 L Chloride 112 H BUN 3 L Creatinine 0.49 L Total Bilirubin 6.6 H AST 47 H Lactate Dehydrogenase 334 H Discharge - Discharge Clinical Impression: Sickle cell crisis Condition: Fair Disposition: ADMITTED INPATIENT Admitting Provider: Hospitalist Unit Admitted: Medical Floor Referrals: JOIE MOREIRA MD [Primary Care Provider] - Follow up as needed
[2017-11-11 17:40] LABS: RETICULOCYTE COUNT (AUTO) 11.58 % (0.66-2.85)
[2017-11-11] MEDS ORDERED: DIPHENHYDRAMINE HCL 50 MG/ML VIAL IV ONE (17:42)
[2017-11-11 17:43] LABS: ANISOCYTOSIS 3+; PLATELET COMMENT ADEQUATE; POIKILOCYTOSIS 2+; POLYCHROMASIA 1+; SICKLE RED CELLS 1+; TARGET CELLS 2+
[2017-11-11 17:46] LABS: APPEARANCE,URINE CLEAR; BILIRUBIN,URINE NEGATIVE (NEGATIVE); COLOR,URINE YELLOW; GLUCOSE, URINE NEGATIVE (NEGATIVE); KETONES,URINE NEGATIVE (NEGATIVE); LEUKOCYTE ESTERASE,URINE NEGATIVE (NEGATIVE); NITRITE,URINE NEGATIVE (NEGATIVE); PROTEIN,URINE NEGATIVE (NEGATIVE); URINE SPECIFIC GRAVITY 1.011
[2017-11-11] MEDS ORDERED: ONDANSETRON HCL INJ/PF 4 MG/2 ML SDV IV PRN (17:51)
[2017-11-11] MEDS ORDERED: DIPHENHYDRAMINE HCL 50 MG/ML VIAL IV PRN (17:52)
--- NOTE | 2017-11-11 18:18 | PDOC H&P ---
History of Present Illness Admission Date/PCP: 11/11/17 17:48 JOIE MOREIRA MD Patient complains of: Sickle cell pain History of Present Illness: CASSANDRA MIDDLETON is a 22 year old female who is well known to the hospitalist service for frequent admissions for sickle cell crisis this point. She follows with Dr. Moreira as an outpatient. Efforts were made to directly admit her to the hospital but there were no beds today. The recommendation was to present to the emergency room and get admitted under the hospitalist service. When I went to see the patient today she states that she is having a significant amount of pain. She is having pain in both of her legs. She is also having pain across her chest and in her back. She denies fever chills. She does not have a cough. She has no evidence of any sort of infection that she knows of. She has had no nausea vomiting or diarrhea. No urinary complaints. Past Medical History Cardiac Medical History: Reports: DVT - RUE s/p port placement Pulmonary Medical History: Reports: Asthma, Bronchitis - once in past per patient, Pneumonia - 2014 EENT Medical History: Reports: None Neurological Medical History: Reports: None Endocrine Medical History: Reports: None Renal/ Medical History: Reports: None Malignancy Medical History: Reports: None GI Medical History: Reports: None Musculoskeltal Medical History: Reports: None Skin Medical History: Reports: None Psychiatric Medical History: Reports: Depression Traumatic Medical History: Reports: None Hematology: Reports: Anemia, Sickle Cell Disease Denies: Bleeding Tendencies Infectious Medical History: Reports: None Past Surgical History Past Surgical History: Reports: Cholecystectomy - 06/28/2015, Vascular Surgery - port put in December,, Other - Port-A-Cath in right upper chest Social History Information Source: Patient Lives with: Family Smoking Status: Never Smoker Frequency of Alcohol Use: None Hx Recreational Drug Use: No Drugs: None Hx Prescription Drug Abuse: No Family History Family History: Reviewed & Not Pertinent, Other - Sickle cell Parental Family History Reviewed: Yes Children Family History Reviewed: Yes Sibling(s) Family History Reviewed.: Yes Medication/Allergy Home Medications: Albuterol Sulfate [Proair HFA Inhalation Aerosol 8.5 gm MDI] 1 puff IH Q4HP PRN 10/06/17 Aripiprazole [Abilify 15 mg Tablet] 15 mg PO QHS 10/06/17 Escitalopram Oxalate [Lexapro] 5 mg PO QHS 10/06/17 Hydroxyzine HCl [Atarax 25 mg Tablet] 25 mg PO Q8HP PRN 10/06/17 Oxycodone HCl [Oxy-Ir 5 mg Tablet] 5 mg PO Q6HP PRN 10/06/17 Rivaroxaban [Xarelto] 20 mg PO DAILY 10/06/17 Zolpidem Tartrate [Ambien] 10 mg PO QHS 10/06/17 Allergies/Adverse Reactions: morphine Allergy (Severe, Verified 11/11/17 14:25) RASH,SWELLING jacob peppers Adverse Reaction (Severe, Uncoded 11/11/17 14:25) throat closes Review of Systems Constitutional: PRESENT: as per HPI Eyes: ABSENT: visual disturbances Ears: ABSENT: hearing changes Nose, Mouth, and Throat: PRESENT: headache(s) Cardiovascular: PRESENT: other - She has pain across her chest wall.. ABSENT: dyspnea on exertion, orthropnea, palpitations Respiratory: ABSENT: cough, hemoptysis Gastrointestinal: ABSENT: abdominal pain, constipation, diarrhea, hematemesis, hematochezia, nausea, vomiting Genitourinary: ABSENT: dysuria, hematuria Musculoskeletal: PRESENT: other - She has aching in both of her legs back and chest wall. Integumentary: ABSENT: rash, wounds Neurological: ABSENT: abnormal gait, abnormal speech, confusion, dizziness, focal weakness, syncope Psychiatric: ABSENT: anxiety, depression, homidical ideation, suicidal ideation Endocrine: ABSENT: cold intolerance, heat intolerance, polydipsia, polyuria Hematologic/Lymphatic: ABSENT: easy bleeding, easy bruising Physical Exam Vital Signs: Temp Pulse Resp BP Pulse Ox 97.9 F 67 18 108/63 95 11/11/17 17:52 11/11/17 17:52 11/11/17 17:52 11/11/17 17:52 11/11/17 17:52 Assessment & Plan - Diagnosis (1) Sickle cell crisis Is this a current diagnosis for this admission?: Yes Plan: The patient is having a sickle cell crisis. We will admit her to the hospital. She will be started on oxygen. She will also be started on IV fluids. For her pain she will have IV Dilaudid 2 mg available every 3 hours. She will have IV Benadryl and IV Zofran available as well. Her linux vmware administrator has been consulted and we look forward to further recommendations. (2) Sickle cell anemia Is this a current diagnosis for this admission?: Yes Plan: Her hemoglobin is actually not too bad at 8.4. We will try to minimize transfusions. (3) Elevated liver function tests Is this a current diagnosis for this admission?: Yes Plan: Likely due to iron overload and her sickle cell disease and crisis. She will have a liver panel drawn in the morning. (4) Hypernatremia Is this a current diagnosis for this admission?: Yes Plan: She will have a chemistry panel drawn in the morning (5) Hypokalemia Is this a current diagnosis for this admission?: Yes Plan: This will be repleted and she will have a chemistry panel drawn in the morning. - Time Time Spent: 50 to 70 Minutes - Inpatient Certification Medical Necessity: Need For IV Fluids, Other - The patient will be admitted as an inpatient to the hospital. She is having an acute sickle cell pain crisis. She is going to be requiring parenteral fluids as well as narcotics. We need to monitor her for any signs of infection. She does have a history of acute chest syndrome in the past. She needs a chest x-ray and close monitoring in the hospital. I expect that her hospitalization will span greater than 2 midnights.
--- NOTE | 2017-11-11 18:26 | RADIOLOGY REPORT (SQ) ---
EXAM DESCRIPTION: CHEST 2 VIEWS COMPLETED DATE/TIME: 11/11/2017 6:13 pm REASON FOR STUDY: r/o pna, sickle cell crisis COMPARISON: Two-view chest 11/07/2017, 10/28/2017 CT chest 10/07/2017 EXAM PARAMETERS: NUMBER OF VIEWS: two views TECHNIQUE: Digital Frontal and Lateral radiographic views of the chest acquired. RADIATION DOSE: NA LIMITATIONS: none FINDINGS: LUNGS AND PLEURA: No opacities, masses or pneumothorax. No pleural effusion. MEDIASTINUM AND HILAR STRUCTURES: No masses or contour abnormalities. HEART AND VASCULAR STRUCTURES: Heart normal size. No evidence for failure. 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 Clips right upper quadrant post cholecy stectomy. OTHER: No other significant finding. IMPRESSION: No acute findings TECHNICAL DOCUMENTATION: JOB ID: [id number] [employer] All Rights Reserved Reading location - IP/workstation name: [email or web address]
[2017-11-11] MEDS ORDERED: POTASSIUM CHLORIDE 10 MEQ CAPSULE.ER PO ONE (19:30)
[2017-11-11] MEDS: NORMAL SALINE 1000 ML 1,000 ML IV PRN (19:45)
[2017-11-11] MEDS: HYDROMORPHONE HCL INJ/PF 2 MG/ML AMPULE IV PRN (20:40)
[2017-11-12] MEDS: DOCUSATE SODIUM 100 MG CAPSULE PO SCH ×3 (01:44→22:09)
[2017-11-12] MEDS: HYDROMORPHONE HCL INJ/PF 2 MG/ML AMPULE IV PRN ×7 (04:15→23:44)
[2017-11-12] MEDS: NORMAL SALINE 1000 ML 1,000 ML IV PRN ×3 (04:18→19:57)
[2017-11-12] MEDS ORDERED: IPRATROPIUM/ALBUTEROL 0.5-2.5 MG/3 ML AMPUL NEB PRN (04:28)
[2017-11-12] MEDS: LANSOPRAZOLE 30 MG TAB.RAP.DR PO SCH (05:04)
[2017-11-12 06:25] LABS: ABSOLUTE RETICS # 0.307 10^6/uL (0.028-0.122); HEMATOCRIT 23.2 % (36.0-47.0); HEMOGLOBIN 8.1 g/dL (12.0-15.5); MEAN CORPUSCULAR HEMOGLOBIN 33.3 pg (27.0-33.4); MEAN CORPUSCULAR HGB CONC 35.2 g/dL (32.0-36.0); MEAN CORPUSCULAR VOLUME 95 fl (80-97); PLATELET COUNT 324 10^3/uL (150-450); RED BLOOD COUNT 2.44 10^6/uL (3.72-5.28); RED CELL DISTRIBUTION WIDTH 21.8 % (11.5-14.0); RETICULOCYTE COUNT (AUTO) 12.57 % (0.66-2.85); WHITE BLOOD COUNT 14.9 10^3/uL (4.0-10.5)
[2017-11-12 06:37] LABS: ALANINE AMINOTRANSFERASE 28 U/L (9-52); ALBUMIN 3.3 g/dL (3.5-5.0); ALKALINE PHOSPHATASE 65 U/L (38-126); ANION GAP 10 (5-19); ASPARTATE AMINO TRANSFERASE 23 U/L (14-36); BILIRUBIN,DIRECT 0.4 mg/dL (0.0-0.4); BILIRUBIN,TOTAL 5.5 mg/dL (0.2-1.3); BLOOD UREA NITROGEN 3 mg/dL (7-20); CALCIUM 8.6 mg/dL (8.4-10.2); CARBON DIOXIDE 24 mmol/L (22-30); CHLORIDE 111 mmol/L (98-107); GLUCOSE 84 mg/dL (75-110); PHOSPHORUS 4.3 mg/dL (2.5-4.5); POTASSIUM 3.8 mmol/L (3.6-5.0); SODIUM 145.4 mmol/L (137-145); TOTAL PROTEIN 6.1 g/dL (6.3-8.2)
[2017-11-12 07:37] LABS: ABSOLUTE LYMPHOCYTES# (MANUAL) 3.7 10^3/uL (0.5-4.7); ABSOLUTE MONOCYTES # (MANUAL) 0.9 10^3/uL (0.1-1.4); ABSOLUTE NEUTROPHILS# (MANUAL) 9.1 10^3/uL (1.7-8.2); BASOPHILS % (MANUAL) 1 % (0-2); EOSINOPHILS % (MANUAL) 7 % (0-6); LYMPHOCYTES % (MANUAL) 25 % (13-45); METAMYELOCYTES % (MANUAL) 1 % (0); MONOCYTES % (MANUAL) 6 % (3-13); NUCLEATED RED BLOOD CELLS 9 /100 WBC (0); SEGMENTED NEUTROPHILS % (MAN) 60 % (42-78); TOTAL CELLS COUNTED 100
[2017-11-12 07:38] LABS: ANISOCYTOSIS 2+; HYPOCHROMASIA 1+; PLATELET COMMENT ADEQUATE; POIKILOCYTOSIS 2+; POLYCHROMASIA 2+; SCHISTOCYTES 1+; SICKLE RED CELLS SLIGHT
--- NOTE | 2017-11-12 08:43 | PDOC CONSULTATION ---
Consultation Consult Date: 11/12/17 Attending physician:: CARLI CARRASCO Consult reason:: Sickle cell disease with crisis History of Present Illness Admission Date/PCP: 11/11/17 17:48 JOIE MOREIRA MD Patient complains of: Sickle cell disease with crisis, pain in the back legs usual of crisis History of Present Illness: CASSANDRA MIDDLETON is a 22 year old female with known history of sickle cell, hemoglobin SC disease. She recently was discharge post crisis approximately 1 month ago. She did well for about 2 weeks thereafter but about 10 days ago began having crisis again. Over the last week we try to hydrate her as an outpatient, but unfortunately pain became too severe. She came to her office yesterday, and ultimately we had to direct her to the ER for admission for continued pain control. She is doing a little bit better today. But still requiring pain medication, IV, and it is not fully taking care of her pain so we discussed increasing it today. Past Medical History Cardiac Medical History: Reports: DVT - RUE s/p port placement Pulmonary Medical History: Reports: Asthma, Bronchitis - once in past per patient, Pneumonia - 2014 [facility] Medical History: Reports: None Neurological Medical History: Reports: None Endocrine Medical History: Reports: None Renal/ Medical History: Reports: None Malignancy Medical History: Reports: None GI Medical History: Reports: None Musculoskeltal Medical History: Reports: None Skin Medical History: Reports: None Psychiatric Medical History: Reports: Depression Traumatic Medical History: Reports: None Hematology: Reports: Anemia, Sickle Cell Disease Denies: Bleeding Tendencies Infectious Medical History: Reports: None Past Surgical History Past Surgical History: Reports: Cholecystectomy - 06/28/2015, Vascular Surgery - port put in December,, Other - Port-A-Cath in right upper chest Social History Lives with: Family Smoking Status: Former Smoker Last Time Smoked: 1 year ago Frequency of Alcohol Use: None Hx Recreational Drug Use: No Drugs: None Hx Prescription Drug Abuse: No - Advance Directive Resuscitation Status: Full Code Family History Family History: Reviewed & Not Pertinent, Other - Sickle cell Parental Family History Reviewed: Yes Children Family History Reviewed: Yes Sibling(s) Family History Reviewed.: Yes Medication/Allergy Home Medications: Albuterol Sulfate [Proair HFA Inhalation Aerosol 8.5 gm MDI] 1 puff IH Q4HP PRN 10/06/17 Aripiprazole [Abilify 15 mg Tablet] 15 mg PO QHS 10/06/17 Escitalopram Oxalate [Lexapro] 5 mg PO QHS 10/06/17 Hydroxyzine HCl [Atarax 25 mg Tablet] 25 mg PO Q8HP PRN 10/06/17 Oxycodone HCl [Oxy-Ir 5 mg Tablet] 5 mg PO Q6HP PRN 10/06/17 Rivaroxaban [Xarelto] 20 mg PO DAILY 10/06/17 Zolpidem Tartrate [Ambien] 10 mg PO QHS 10/06/17 Allergies/Adverse Reactions: morphine Allergy (Severe, Verified 11/11/17 14:25) RASH,SWELLING jacob peppers Adverse Reaction (Severe, Uncoded 11/11/17 14:25) throat closes Review of Systems Constitutional: PRESENT: anorexia, fatigue, weakness Cardiovascular: PRESENT: dyspnea on exertion Gastrointestinal: PRESENT: constipation, nausea Musculoskeletal: PRESENT: back pain, other - Leg pain Neurological: PRESENT: weakness. ABSENT: abnormal gait, abnormal speech, confusion, dizziness, focal weakness, syncope Psychiatric: ABSENT: anxiety, depression, homidical ideation, suicidal ideation Endocrine: ABSENT: cold intolerance, heat intolerance, polydipsia, polyuria Physical Exam Vital Signs: Temp Pulse Resp BP Pulse Ox 97.8 F 66 16 117/58 L 97 11/12/17 04:10 11/12/17 06:49 11/12/17 04:36 11/12/17 04:10 11/12/17 08:08 Intake & Output 11/11/17 11/12/17 11/13/17 06:59 06:59 06:59 Intake Total 1222 Balance 1222 Weight 57.2 kg General appearance: PRESENT: mild distress Eye exam: PRESENT: scleral icterus Mouth exam: PRESENT: dry mucosa Neck exam: ABSENT: carotid bruit, JVD, lymphadenopathy, thyromegaly Respiratory exam: PRESENT: clear to auscultation samaria. ABSENT: rales, rhonchi, wheezes Cardiovascular exam: PRESENT: tachycardia GI/Abdominal exam: PRESENT: normal bowel sounds, soft. ABSENT: distended, guarding, mass, organolmegaly, rebound, tenderness Rectal exam: PRESENT: deferred Extremities exam: PRESENT: full ROM. ABSENT: calf tenderness, clubbing, pedal edema Neurological exam: PRESENT: alert, awake, oriented to person, oriented to place , oriented to time, oriented to situation, CN II-XII grossly intact. ABSENT: motor sensory deficit Skin exam: PRESENT: jaundice Results Laboratory Results: 11/12/17 05:20 11/12/17 05:20 11/12/17 11/12/17 05:20 05:20 WBC 14.9 H RBC 2.44 L Hgb 8.1 L Hct 23.2 L MCV 95 MCH 33.3 MCHC 35.2 RDW 21.8 H Plt Count 324 Seg Neutrophils % Not Reportable Lymphocytes % Not Reportable Monocytes % Not Reportable Eosinophils % Not Reportable Basophils % Not Reportable Absolute Neutrophils Not Reportable Absolute Lymphocytes Not Reportable Absolute Monocytes Not Reportable Absolute Eosinophils Not Reportable Absolute Basophils Not Reportable Retic Count (auto) 12.57 H Absolute Retic 0.307 H Sodium 145.4 H Potassium 3.8 Chloride 111 H Carbon Dioxide 24 Anion Gap 10 BUN 3 L Creatinine 0.55 Est GFR ( Amer) > 60 Est GFR (Non-Af Amer) > 60 Glucose 84 Calcium 8.6 Phosphorus 4.3 Magnesium 1.6 Total Bilirubin 5.5 H AST 23 ALT 28 Alkaline Phosphatase 65 Total Protein 6.1 L Albumin 3.3 L Impressions: Chest X-Ray 11/11/17 00:00 IMPRESSION: No acute findings Status: Image reviewed by me Assessment & Plan - Diagnosis (1) Sickle cell crisis Is this a current diagnosis for this admission?: Yes Plan: Sickle cell disease with crisis, plan for increasing Dilaudid today, add K pad for comfort, increase Benadryl, added MiraLAX for constipation. Continue with hydration. 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 (3) DVT (deep venous thrombosis) Qualifiers: DVT location: lower extremity Chronicity: chronic Laterality: right Is this a current diagnosis for this admission?: Yes Plan: Known history of DVT, will DC Lovenox and start Xarelto outpatient dosing. - Time Time Spent: Greater than 70 Minutes - Inpatient Certification Based on my medical assessment, after consideration of the patient's comorbidities, presenting symptoms, or acuity I expect that the services needed warrant INPATIENT care.: Yes I certify that my determination is in accordance with my understanding of Medicare's requirements for reasonable and necessary INPATIENT services [42 CFR 412.3e].: Yes Medical Necessity: Need For IV Fluids, Need for Pain Control, Risk of Complication if Not Cared For in Hospital
[2017-11-12] MEDS ORDERED: ENOXAPARIN SODIUM INJ 40 MG/0.4 ML DISP.SYRIN SUBCUT SCH (10:00)
[2017-11-12] MEDS ORDERED: POLYETHYLENE GLYCOL 3350 POWDER 17 GM/1 PACKET PO PRN (10:10)
[2017-11-12] MEDS: RIVAROXABAN 10 MG TABLET PO SCH (10:37)
[2017-11-12] MEDS: DIPHENHYDRAMINE HCL 50 MG/ML VIAL IV PRN ×2 (11:15→20:11)
--- NOTE | 2017-11-12 20:25 | PDOC PROGRESS REPORT ---
Subjective Progress Note for:: 11/12/17 Subjective:: 22-year-old female with known history of sickle cell anemia, presents with sickle cell flare. She is followed by Dr. Baum outpatient setting. She continues to be on IV fluid support. States that she has had some improvement in her back pain since admission. Continued on her prn pain medications. States that she attempts to stay hydrated in the outpatient setting, but notes that she was probably not hydrated well enough recently. States that she takes 4 mg of oral Dilaudid for pain control at home. Patient has anemia with a hemoglobin of 8.1. Agree that transfusion should happen if patient's hemoglobin declines into the sevens. Vital sign dewey she is stable at present patient's vital signs are stable at present. Reason For Visit: SICKLE CELL CRISIS Physical Exam Vital Signs: Temp Pulse Resp BP Pulse Ox 98.0 F 92 18 124/54 L 96 11/12/17 15:33 11/12/17 19:00 11/12/17 15:33 11/12/17 15:33 11/12/17 15:33 Intake & Output 11/11/17 11/12/17 11/13/17 06:59 06:59 06:59 Intake Total 1222 2898 Output Total 1800 Balance 1222 1098 Weight 57.2 kg General appearance: PRESENT: no acute distress. ABSENT: disheveled, mild distress, thin Head exam: PRESENT: atraumatic, normocephalic Eye exam: PRESENT: EOMI. ABSENT: conjunctival injection Ear exam: PRESENT: normal external ear exam. ABSENT: bleeding Mouth exam: PRESENT: moist. ABSENT: dry mucosa Neck exam: ABSENT: carotid bruit, tenderness Respiratory exam: ABSENT: accessory muscle use, rales, rhonchi, wheezes Cardiovascular exam: PRESENT: RRR, +S1, +S2 Pulses: ABSENT: normal carotid pulses, normal dorsalis pedis pul Vascular exam: PRESENT: normal capillary refill. ABSENT: pallor GI/Abdominal exam: PRESENT: soft. ABSENT: organolmegaly, rigid Extremities exam: ABSENT: calf tenderness, joint swelling Musculoskeletal exam: PRESENT: full ROM. ABSENT: ambulatory Neurological exam: PRESENT: alert, oriented to person, oriented to place, oriented to time, oriented to situation, CN II-XII grossly intact Psychiatric exam: ABSENT: agitated, flat affect Focused psych exam: ABSENT: catatonic, paranoid Skin exam: ABSENT: abrasion, normal color, pallor Results Laboratory Results: 11/12/17 05:20 11/12/17 05:20 11/12/17 11/12/17 05:20 05:20 WBC 14.9 H RBC 2.44 L Hgb 8.1 L Hct 23.2 L MCV 95 MCH 33.3 MCHC 35.2 RDW 21.8 H Plt Count 324 Seg Neutrophils % Not Reportable Lymphocytes % Not Reportable Monocytes % Not Reportable Eosinophils % Not Reportable Basophils % Not Reportable Absolute Neutrophils Not Reportable Absolute Lymphocytes Not Reportable Absolute Monocytes Not Reportable Absolute Eosinophils Not Reportable Absolute Basophils Not Reportable Retic Count (auto) 12.57 H Absolute Retic 0.307 H Sodium 145.4 H Potassium 3.8 Chloride 111 H Carbon Dioxide 24 Anion Gap 10 BUN 3 L Creatinine 0.55 Est GFR ( Amer) > 60 Est GFR (Non-Af Amer) > 60 Glucose 84 Calcium 8.6 Phosphorus 4.3 Magnesium 1.6 Total Bilirubin 5.5 H AST 23 ALT 28 Alkaline Phosphatase 65 Total Protein 6.1 L Albumin 3.3 L Impressions: Chest X-Ray 11/11/17 00:00 IMPRESSION: No acute findings Assessment & Plan - Diagnosis (1) Sickle cell crisis Is this a current diagnosis for this admission?: Yes Plan: I appreciate hematology seeing this patient. Continue as needed pain medications and IV fluid support. She does note gradual improvement in her back pain related to her sickle cell crisis. She does have an elevated total bilirubin, LDH and LFTs. Showing lab improvement , continue to monitor (2) Sickle cell anemia Is this a current diagnosis for this admission?: Yes Plan: Agree with transfusing patient if she drops down into the sevens. Would limit too many transfusions to prevent overload in this patient. (3) Elevated liver function tests Is this a current diagnosis for this admission?: Yes Plan: improving LFTs, monitor. (4) Hypokalemia Is this a current diagnosis for this admission?: Yes Plan: Improving with supplementation. (5) Back pain Is this a current diagnosis for this admission?: Yes Plan: Back pain is improving with the treatment of sickle cell crisis. Continue as needed pain medications. - Time Time Spent with patient: 15-24 minutes - Inpatient Certification Based on my medical assessment, after consideration of the patient's comorbidities, presenting symptoms, or acuity I expect that the services needed warrant INPATIENT care.: Yes I certify that my determination is in accordance with my understanding of Medicare's requirements for reasonable and necessary INPATIENT services [42 CFR 412.3e].: Yes Medical Necessity: Need Close Monitoring Due to Risk of Patient Decompensation
[2017-11-12] MEDS ORDERED: POTASSIUM CHLORIDE 10 MEQ CAPSULE.ER PO ONE (21:30)
[2017-11-13] MEDS ORDERED: ACETAMINOPHEN 325 MG TABLET ONE ×2 (02:31→02:56)
[2017-11-13] MEDS: HYDROMORPHONE HCL INJ/PF 2 MG/ML AMPULE IV PRN ×5 (02:43→22:24)
[2017-11-13] MEDS: DIPHENHYDRAMINE HCL 50 MG/ML VIAL IV PRN ×2 (02:43→22:24)
[2017-11-13] MEDS: LANSOPRAZOLE 30 MG TAB.RAP.DR PO SCH (06:05)
[2017-11-13] MEDS: NORMAL SALINE 1000 ML 1,000 ML IV PRN ×2 (06:08→23:10)
[2017-11-13 06:50] LABS: ABSOLUTE RETICS # 0.268 10^6/uL (0.028-0.122); MEAN CORPUSCULAR HEMOGLOBIN 33.6 pg (27.0-33.4); MEAN CORPUSCULAR HGB CONC 36.4 g/dL (32.0-36.0); MEAN CORPUSCULAR VOLUME 92 fl (80-97); PLATELET COUNT 283 10^3/uL (150-450); RED BLOOD COUNT 2.06 10^6/uL (3.72-5.28); RETICULOCYTE COUNT (AUTO) 12.99 % (0.66-2.85)
[2017-11-13 07:00] LABS: HEMOGLOBIN 6.9 g/dL (12.0-15.5)
[2017-11-13 07:19] LABS: BLOOD UREA NITROGEN 3 mg/dL (7-20); CALCIUM 8.3 mg/dL (8.4-10.2); CARBON DIOXIDE 26 mmol/L (22-30); CHLORIDE 106 mmol/L (98-107); GLUCOSE 93 mg/dL (75-110); SODIUM 142.2 mmol/L (137-145)
[2017-11-13 07:20] LABS: ALANINE AMINOTRANSFERASE 26 U/L (9-52); ALBUMIN 3.3 g/dL (3.5-5.0); ALKALINE PHOSPHATASE 72 U/L (38-126); ANION GAP 10 (5-19); ASPARTATE AMINO TRANSFERASE 35 U/L (14-36); BILIRUBIN,DIRECT 1.1 mg/dL (0.0-0.4); BILIRUBIN,TOTAL 9.7 mg/dL (0.2-1.3); PHOSPHORUS 4.4 mg/dL (2.5-4.5); TOTAL PROTEIN 6.2 g/dL (6.3-8.2)
[2017-11-13] MEDS ORDERED: NORMAL SALINE 250 ML IV PRN ×2 (07:47)
[2017-11-13 07:50] LABS: RED CELL DISTRIBUTION WIDTH 24.4 % (11.5-14.0)
[2017-11-13 07:51] LABS: WHITE BLOOD COUNT 13.4 10^3/uL (4.0-10.5)
[2017-11-13] MEDS ORDERED: DIPHENHYDRAMINE HCL 50 MG/ML VIAL IV PRN (08:18)
[2017-11-13] MEDS ORDERED: ACETAMINOPHEN 325 MG TABLET PO PRN (08:19)
--- NOTE | 2017-11-13 08:34 | PDOC PROGRESS REPORT ---
Subjective Progress Note for:: 11/13/17 Subjective:: Pt feeling better. She really wants to try to d/c home tomorrow, she has a lease signing at 1pm that she really wants to get to. Hb dropped to 6.9 so was ordered for 1 unit blood and I added premeds today. I also changed IV pain meds to oral based on pain scale and we will see how she does, if she can mostly take oral meds, she will d/c tomorrow most likely Reason For Visit: SICKLE CELL CRISIS Physical Exam Vital Signs: Temp Pulse Resp BP Pulse Ox 99.4 F 92 16 116/57 L 97 11/13/17 04:10 11/13/17 04:10 11/13/17 04:10 11/13/17 04:10 11/13/17 04:10 Intake & Output 11/12/17 11/13/17 11/14/17 06:59 06:59 06:59 Intake Total 1222 3898 Output Total 2300 Balance 1222 1598 Weight 57.2 kg 60 kg General appearance: PRESENT: no acute distress, well-developed, well-nourished Head exam: PRESENT: atraumatic, normocephalic Eye exam: PRESENT: conjunctiva pink, EOMI, PERRLA. ABSENT: scleral icterus Ear exam: PRESENT: normal external ear exam Mouth exam: PRESENT: moist, tongue midline Neck exam: ABSENT: carotid bruit, JVD, lymphadenopathy, thyromegaly Respiratory exam: PRESENT: clear to auscultation samaria. ABSENT: rales, rhonchi, wheezes Cardiovascular exam: PRESENT: RRR. ABSENT: diastolic murmur, rubs, systolic murmur Pulses: PRESENT: normal dorsalis pedis pul Vascular exam: PRESENT: normal capillary refill GI/Abdominal exam: PRESENT: normal bowel sounds, soft. ABSENT: distended, guarding, mass, organolmegaly, rebound, tenderness Rectal exam: PRESENT: deferred Extremities exam: PRESENT: full ROM. ABSENT: calf tenderness, clubbing, pedal edema Neurological exam: PRESENT: alert, awake, oriented to person, oriented to place , oriented to time, oriented to situation, CN II-XII grossly intact. ABSENT: motor sensory deficit Psychiatric exam: PRESENT: appropriate affect, normal mood. ABSENT: homicidal ideation, suicidal ideation Skin exam: PRESENT: dry, intact, warm. ABSENT: cyanosis, rash Results Laboratory Results: 11/13/17 06:05 11/13/17 06:05 11/13/17 11/13/17 06:05 06:05 WBC 13.4 H RBC 2.06 L Hgb 6.9 L Hct 19.0 L MCV 92 MCH 33.6 H MCHC 36.4 H RDW 24.4 H Plt Count 283 Retic Count (auto) 12.99 H Absolute Retic 0.268 H Sodium 142.2 Potassium 4.0 Chloride 106 Carbon Dioxide 26 Anion Gap 10 BUN 3 L Creatinine 0.56 Est GFR ( Amer) > 60 Est GFR (Non-Af Amer) > 60 Glucose 93 Calcium 8.3 L Phosphorus 4.4 Magnesium 1.6 Total Bilirubin 9.7 H AST 35 ALT 26 Alkaline Phosphatase 72 Total Protein 6.2 L Albumin 3.3 L Impressions: Chest X-Ray 11/11/17 00:00 IMPRESSION: No acute findings Assessment & Plan - Diagnosis (1) Sickle cell crisis Is this a current diagnosis for this admission?: Yes Plan: Cont as above 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 Hemolytic anemia type : other hemoglobinopathy Qualified Code(s): D58.2 - Other hemoglobinopathies Is this a current diagnosis for this admission?: Yes Plan: transfusion as noted (3) DVT (deep venous thrombosis) Qualifiers: DVT location: lower extremity Chronicity: chronic Laterality: right Is this a current diagnosis for this admission?: Yes Plan: Xarelto cont - Time Time Spent with patient: 35 or more minutes - Inpatient Certification Based on my medical assessment, after consideration of the patient's comorbidities, presenting symptoms, or acuity I expect that the services needed warrant INPATIENT care.: Yes I certify that my determination is in accordance with my understanding of Medicare's requirements for reasonable and necessary INPATIENT services [42 CFR 412.3e].: Yes Medical Necessity: Need for Pain Control
[2017-11-13] MEDS ORDERED: ONDANSETRON HCL INJ/PF 4 MG/2 ML SDV IV PRN (09:00)
[2017-11-13] MEDS: DOCUSATE SODIUM 100 MG CAPSULE PO SCH ×2 (09:17→21:43)
[2017-11-13] MEDS: RIVAROXABAN 10 MG TABLET PO SCH (09:17)
[2017-11-13] MEDS: HYDROMORPHONE HCL 2 MG TABLET PO PRN ×2 (10:02→21:42)
--- NOTE | 2017-11-13 11:40 | Physician Advisory Note ---
Physician Advisor ProgressNote .: Pursuant to the plan for [facility], I have reviewed the medical record for this patient. Physician Advisor Statement: If you agree, please continue to document in each note: 1. "Acute hypernatremia, now resolved, likely due to " Thanks! CK
[2017-11-13 16:00] LABS: ABSOLUTE BASOPHILS # (AUTO) 0.2 10^3/uL (0.0-0.2); ABSOLUTE EOSINOPHILS # (AUTO) 1.9 10^3/uL (0.0-0.6); ABSOLUTE LYMPHOCYTES (AUTO) 2.2 10^3/uL (0.5-4.7); ABSOLUTE MONOCYTES (AUTO) 1.2 10^3/uL (0.1-1.4); ABSOLUTE NEUT (AUTO) 7.2 10^3/uL (1.7-8.2); BASOPHILS % (AUTO) 1.3 % (0-2); EOSINOPHILS % (AUTO) 15.2 % (0-6); HEMATOCRIT 22.3 % (36.0-47.0); HEMOGLOBIN 8.1 g/dL (12.0-15.5); LYMPHOCYTES % (AUTO) 17.3 % (13-45); MEAN CORPUSCULAR HEMOGLOBIN 33.1 pg (27.0-33.4); MEAN CORPUSCULAR HGB CONC 36.5 g/dL (32.0-36.0); MEAN CORPUSCULAR VOLUME 91 fl (80-97); MONOCYTES % (AUTO) 9.2 % (3-13); PLATELET COUNT 276 10^3/uL (150-450); RED BLOOD COUNT 2.46 10^6/uL (3.72-5.28); RED CELL DISTRIBUTION WIDTH 23.5 % (11.5-14.0); TOTAL CELLS COUNTED % (AUTO) 100 %; WHITE BLOOD COUNT 12.5 10^3/uL (4.0-10.5)
--- NOTE | 2017-11-13 22:01 | PDOC PROGRESS REPORT ---
Subjective Progress Note for:: 11/13/17 Subjective:: 22-year-old female with known history of sickle cell anemia, presents with sickle cell flare. She is followed by Dr. Baum in the outpatient setting. She recieved a 500 cc bolus overnight. Was found to have a Hgb of 6.9 this AM. 1 unit of PRBC was written for transfusion. Patient's overall back pain complaint has improved since admission. She is desiring to leave tomorrow for personal issues if possible. She will need f/u with her [facility] after d/c. Continued on prn pain medications. Reason For Visit: SICKLE CELL CRISIS Physical Exam Vital Signs: Temp Pulse Resp BP Pulse Ox 98.8 F 69 16 123/67 97 11/13/17 19:30 11/13/17 19:30 11/13/17 19:30 11/13/17 19:30 11/13/17 19:30 Intake & Output 11/12/17 11/13/17 11/14/17 06:59 06:59 06:59 Intake Total 1222 3898 2195 Output Total 2300 1 Balance 1222 1598 2194 Weight 57.2 kg 60 kg General appearance: PRESENT: no acute distress, cooperative Head exam: PRESENT: atraumatic, normocephalic Eye exam: PRESENT: EOMI, PERRLA Ear exam: PRESENT: normal external ear exam. ABSENT: bleeding Mouth exam: PRESENT: moist. ABSENT: dry mucosa Neck exam: ABSENT: carotid bruit, tenderness Respiratory exam: ABSENT: accessory muscle use, rales, rhonchi, wheezes Cardiovascular exam: PRESENT: RRR, +S1, +S2 Vascular exam: PRESENT: normal capillary refill. ABSENT: pallor GI/Abdominal exam: PRESENT: normal bowel sounds, soft. ABSENT: mass Extremities exam: ABSENT: calf tenderness, joint swelling Musculoskeletal exam: PRESENT: full ROM. ABSENT: ambulatory Neurological exam: PRESENT: alert, oriented to person, oriented to place, oriented to time, oriented to situation, CN II-XII grossly intact Psychiatric exam: ABSENT: agitated, anxious Focused psych exam: ABSENT: delusional, paranoid Skin exam: ABSENT: mottled, rash Results Laboratory Results: 11/13/17 15:30 11/13/17 06:05 08/16/18 08/16/18 08/16/18 06:05 06:05 08:13 WBC 13.4 H RBC 2.06 L Hgb 6.9 L Hct 19.0 L MCV 92 MCH 33.6 H MCHC 36.4 H RDW 24.4 H Plt Count 283 Seg Neutrophils % Lymphocytes % Monocytes % Eosinophils % Basophils % Absolute Neutrophils Absolute Lymphocytes Absolute Monocytes Absolute Eosinophils Absolute Basophils Retic Count (auto) 12.99 H Absolute Retic 0.268 H Sodium 142.2 Potassium 4.0 Chloride 106 Carbon Dioxide 26 Anion Gap 10 BUN 3 L Creatinine 0.56 Est GFR ( Amer) > 60 Est GFR (Non-Af Amer) > 60 Glucose 93 Calcium 8.3 L Phosphorus 4.4 Magnesium 1.6 Total Bilirubin 9.7 H AST 35 ALT 26 Alkaline Phosphatase 72 Total Protein 6.2 L Albumin 3.3 L Blood Type O POSITIVE Antibody Screen NEGATIVE 11/13/17 15:30 WBC 12.5 H RBC 2.46 L Hgb 8.1 L Hct 22.3 L MCV 91 MCH 33.1 MCHC 36.5 H RDW 23.5 H Plt Count 276 Seg Neutrophils % 57.0 Lymphocytes % 17.3 Monocytes % 9.2 Eosinophils % 15.2 H Basophils % 1.3 Absolute Neutrophils 7.2 Absolute Lymphocytes 2.2 Absolute Monocytes 1.2 Absolute Eosinophils 1.9 H Absolute Basophils 0.2 Retic Count (auto) Absolute Retic Sodium Potassium Chloride Carbon Dioxide Anion Gap BUN Creatinine Est GFR ( Amer) Est GFR (Non-Af Amer) Glucose Calcium Phosphorus Magnesium Total Bilirubin AST ALT Alkaline Phosphatase Total Protein Albumin Blood Type Antibody Screen Impressions: Chest X-Ray 11/11/17 00:00 IMPRESSION: No acute findings Assessment & Plan - Diagnosis (1) Sickle cell crisis Is this a current diagnosis for this admission?: Yes Plan: Continue prn pain medications and IV fluid support. She does note gradual improvement in her back pain related to her sickle cell crisis. She does have an elevated total bilirubin, LDH and LFTs. Hgb dropped to 6.9, giving 1 unit of PRBC giving B12, folate and iron supplements due to borderline to low levels. (2) Sickle cell anemia Is this a current diagnosis for this admission?: Yes Plan: giving 1 u of PRBC (3) Elevated liver function tests Is this a current diagnosis for this admission?: Yes Plan: continue to monitor LFTs for improvement (4) Hypokalemia Is this a current diagnosis for this admission?: Yes Plan: Improving with supplementation. (5) Back pain Is this a current diagnosis for this admission?: Yes Plan: Back pain is improving with the treatment of sickle cell crisis. Continue as needed pain medications. continue heating pad - Time Time Spent with patient: 15-24 minutes - Inpatient Certification Based on my medical assessment, after consideration of the patient's comorbidities, presenting symptoms, or acuity I expect that the services needed warrant INPATIENT care.: Yes I certify that my determination is in accordance with my understanding of Medicare's requirements for reasonable and necessary INPATIENT services [42 CFR 412.3e].: Yes Medical Necessity: Need Close Monitoring Due to Risk of Patient Decompensation
[2017-11-14] MEDS ORDERED: ACETAMINOPHEN 325 MG TABLET PO PRN (02:28)
[2017-11-14] MEDS: DIPHENHYDRAMINE HCL 50 MG/ML VIAL IV PRN (04:55)
[2017-11-14] MEDS: HYDROMORPHONE HCL INJ/PF 2 MG/ML AMPULE IV PRN ×2 (04:56→11:16)
[2017-11-14 05:34] LABS: ABSOLUTE RETICS # 0.339 10^6/uL (0.028-0.122); HEMATOCRIT 22.2 % (36.0-47.0); HEMOGLOBIN 8.1 g/dL (12.0-15.5); MEAN CORPUSCULAR HEMOGLOBIN 33.2 pg (27.0-33.4); MEAN CORPUSCULAR HGB CONC 36.6 g/dL (32.0-36.0); MEAN CORPUSCULAR VOLUME 91 fl (80-97); PLATELET COUNT 291 10^3/uL (150-450); RED BLOOD COUNT 2.45 10^6/uL (3.72-5.28); RED CELL DISTRIBUTION WIDTH 24.3 % (11.5-14.0); RETICULOCYTE COUNT (AUTO) 13.84 % (0.66-2.85)
[2017-11-14 05:45] LABS: ALANINE AMINOTRANSFERASE 32 U/L (9-52); ALBUMIN 3.3 g/dL (3.5-5.0); ALKALINE PHOSPHATASE 88 U/L (38-126); ANION GAP 11 (5-19); ASPARTATE AMINO TRANSFERASE 37 U/L (14-36); BILIRUBIN,DIRECT 2.7 mg/dL (0.0-0.4); BLOOD UREA NITROGEN 4 mg/dL (7-20); CALCIUM 8.4 mg/dL (8.4-10.2); CARBON DIOXIDE 25 mmol/L (22-30); CHLORIDE 105 mmol/L (98-107); GLUCOSE 77 mg/dL (75-110); PHOSPHORUS 3.9 mg/dL (2.5-4.5); SODIUM 140.9 mmol/L (137-145); TOTAL PROTEIN 6.3 g/dL (6.3-8.2)
[2017-11-14 05:57] LABS: BILIRUBIN,TOTAL 15.1 mg/dL (0.2-1.3)
[2017-11-14] MEDS ORDERED: LANSOPRAZOLE 30 MG TAB.RAP.DR PO SCH (06:00)
[2017-11-14 06:03] LABS: BAND NEUTROPHILS % (MANUAL) 1 % (3-5); BASOPHILS % (MANUAL) 2 % (0-2); EOSINOPHILS % (MANUAL) 13 % (0-6); LYMPHOCYTES % (MANUAL) 7 % (13-45); MONOCYTES % (MANUAL) 2 % (3-13); NUCLEATED RED BLOOD CELLS 9 /100 WBC (0); SEGMENTED NEUTROPHILS % (MAN) 74 % (42-78); TOTAL CELLS COUNTED 100
[2017-11-14 06:08] LABS: ANISOCYTOSIS 4+; HOWELL-JOLLY BODIES PRESENT; HYPOCHROMASIA 2+; POIKILOCYTOSIS 3+; POLYCHROMASIA 1+; SICKLE RED CELLS 2+; TARGET CELLS 2+
[2017-11-14 06:09] LABS: PLATELET COMMENT ADEQUATE; WHITE BLOOD COUNT 14.5 10^3/uL (4.0-10.5)
[2017-11-14] MEDS: NORMAL SALINE 1000 ML 1,000 ML IV PRN (06:50)
[2017-11-14] MEDS: HYDROMORPHONE HCL 2 MG TABLET PO PRN (09:25)
[2017-11-14] MEDS: RIVAROXABAN 10 MG TABLET PO SCH (09:26)
[2017-11-14] MEDS: DOCUSATE SODIUM 100 MG CAPSULE PO SCH (09:26)
[2017-11-14 13:04] VITALS: BP 115/67
--- NOTE | 2017-11-14 16:04 | PDOC DISCHARGE SUMMARY ---
General - Admit/Disc Date/PCP Admission Date/Primary Care Provider: 11/11/17 17:48 JOIE MOREIRA MD Discharge Date: 11/14/17 - Left AGAINST MEDICAL ADVICE - Discharge Diagnosis (1) Hyperbilirubinemia Is this a current diagnosis for this admission?: Yes (2) Back pain Is this a current diagnosis for this admission?: Yes (3) Sickle cell crisis Is this a current diagnosis for this admission?: Yes (4) Elevated liver function tests Is this a current diagnosis for this admission?: Yes (5) Sickle cell anemia Is this a current diagnosis for this admission?: Yes - Additional Information Resuscitation Status: Full Code Home Medications: Albuterol Sulfate [Proair HFA Inhalation Aerosol 8.5 gm MDI] 1 puff IH Q4HP PRN 10/06/17 Aripiprazole [Abilify 15 mg Tablet] 15 mg PO QHS 10/06/17 Escitalopram Oxalate [Lexapro] 5 mg PO QHS 10/06/17 Hydroxyzine HCl [Atarax 25 mg Tablet] 25 mg PO Q8HP PRN 10/06/17 Oxycodone HCl [Oxy-Ir 5 mg Tablet] 5 mg PO Q6HP PRN 10/06/17 Rivaroxaban [Xarelto] 20 mg PO DAILY 10/06/17 Zolpidem Tartrate [Ambien] 10 mg PO QHS 10/06/17 History of Present Illness History of Present Illness: CASSANDRA MIDDLETON is a 22 year old female admitted for sickle cell crisis Hospital Course Hospital Course: Called by nursing this morning states that patient wants to be discharged. Patient states that she has to go home before afternoon. States that she has some personal appointments regarding her housing. I went to see patient and I had nurse group art supervisor with me. He had a 15-20 minute discussion about her care and the need for continued stay given her sickle cell crisis and now elevated bilirubin levels. Patient states that she has to go home because she has to sign a lease for an apartment that she needs to keep. Charge nurse and I offered to provide a letter to her housing stating that she is in the hospital and unable to make that appointment and to postpone that date. After much long discussion patient states that she will stay. I thanked her for letting us take care of her. She understood the risks and benefits of leaving and hence decided to stay. Unfortunately she call me back again within 5 minutes states that she wanted to leave and again I went in there with the nurse and discussed prostate she agreed to stay. An hour later on rounds I got a phone call from nursing that patient had signed AMA papers and left the floor. I did not get a chance to see the patient. I did discuss with the patient about the risks and benefits of leaving AGAINST MEDICAL ADVICE earlier she understood and verbalized those risks. She was seen by our oncologist this morning prior to her discharge. During her stay she was getting pain control and IV fluids her sickle cell crisis. Her bilirubin had elevated today hence I wanted to keep her in the hospital for continued care. Physical Exam Vital Signs: Temp Pulse Resp BP Pulse Ox 98.5 F 57 L 16 115/67 97 11/14/17 08:35 11/14/17 09:51 11/14/17 09:51 11/14/17 08:35 11/14/17 09:51 Intake & Output 11/13/17 11/14/17 11/15/17 06:59 06:59 06:59 Intake Total 3898 3153 675 Output Total 2300 1 Balance 1598 3152 675 Weight 132 lb 4.438 oz 141 lb 1.533 oz General appearance: PRESENT: no acute distress Head exam: PRESENT: atraumatic, normocephalic Eye exam: PRESENT: EOMI, PERRLA. ABSENT: scleral icterus Ear exam: PRESENT: normal external ear exam Neck exam: ABSENT: tracheal deviation Respiratory exam: PRESENT: clear to auscultation samaria, symmetrical, other - On nasal cannula with 2 L of oxygen Cardiovascular exam: PRESENT: +S1, +S2 Pulses: PRESENT: +2 pedal pulses bilateral GI/Abdominal exam: PRESENT: normal bowel sounds, soft. ABSENT: tenderness Extremities exam: ABSENT: +2 edema Neurological exam: PRESENT: alert, awake, oriented to person, oriented to place , oriented to time, oriented to situation, CN II-XII grossly intact Skin exam: PRESENT: dry, warm Results Laboratory Results: 11/14/17 04:53 11/14/17 04:53 11/13/17 11/14/17 11/14/17 15:30 04:53 04:53 WBC 12.5 H 14.5 H RBC 2.46 L 2.45 L Hgb 8.1 L 8.1 L Hct 22.3 L 22.2 L MCV 91 91 MCH 33.1 33.2 MCHC 36.5 H 36.6 H RDW 23.5 H 24.3 H Plt Count 276 291 Seg Neutrophils % 57.0 Not Reportable Lymphocytes % 17.3 Not Reportable Monocytes % 9.2 Not Reportable Eosinophils % 15.2 H Not Reportable Basophils % 1.3 Not Reportable Absolute Neutrophils 7.2 Not Reportable Absolute Lymphocytes 2.2 Not Reportable Absolute Monocytes 1.2 Not Reportable Absolute Eosinophils 1.9 H Not Reportable Absolute Basophils 0.2 Not Reportable Retic Count (auto) 13.84 H Absolute Retic 0.339 H Sodium 140.9 Potassium 4.0 Chloride 105 Carbon Dioxide 25 Anion Gap 11 BUN 4 L Creatinine 0.50 L Est GFR ( Amer) > 60 Est GFR (Non-Af Amer) > 60 Glucose 77 Calcium 8.4 Phosphorus 3.9 Magnesium 1.6 Total Bilirubin 15.1 H D AST 37 H ALT 32 Alkaline Phosphatase 88 Total Protein 6.3 Albumin 3.3 L Impressions: Chest X-Ray 11/11/17 00:00 IMPRESSION: No acute findings Qualifiers - * PATIENT BEING DISCHARGED WITH ANY OF THE FOLLOWING DIAGNOSIS: No VTE patient discharged on overlapping Therapy?: Yes Plan Discharge Plan: Left AGAINST MEDICAL ADVICE
--- NOTE | 2017-11-14 16:24 | PDOC PROGRESS REPORT ---
Subjective Progress Note for:: 11/14/17 Subjective:: Today had long discussion w/ Carmen, I didn't feel she was ready for D/C but she was tearful this am, she is currently living in her car and will not be able to access housing unless she signs the lease. She needs to be d/c'd for this. I discussed her case w/ hospitalist team, since we are both unsure of whether she would be ok at home we suggested continued stay here but pt wants to leave AMA. Reason For Visit: SICKLE CELL CRISIS Physical Exam Vital Signs: Temp Pulse Resp BP Pulse Ox 98.5 F 57 L 16 115/67 97 11/14/17 08:35 11/14/17 09:51 11/14/17 09:51 11/14/17 08:35 11/14/17 09:51 Intake & Output 11/13/17 11/14/17 11/15/17 06:59 06:59 06:59 Intake Total 3898 3153 675 Output Total 2300 1 Balance 1598 3152 675 Weight 60 kg 64 kg General appearance: PRESENT: no acute distress, well-developed, well-nourished Head exam: PRESENT: atraumatic, normocephalic Eye exam: PRESENT: conjunctiva pink, EOMI, PERRLA. ABSENT: scleral icterus Ear exam: PRESENT: normal external ear exam Mouth exam: PRESENT: moist, tongue midline Neck exam: ABSENT: carotid bruit, JVD, lymphadenopathy, thyromegaly Respiratory exam: PRESENT: clear to auscultation samaria. ABSENT: rales, rhonchi, wheezes Cardiovascular exam: PRESENT: RRR. ABSENT: diastolic murmur, rubs, systolic murmur Pulses: PRESENT: normal dorsalis pedis pul Vascular exam: PRESENT: normal capillary refill GI/Abdominal exam: PRESENT: normal bowel sounds, soft. ABSENT: distended, guarding, mass, organolmegaly, rebound, tenderness Rectal exam: PRESENT: deferred Extremities exam: PRESENT: full ROM. ABSENT: calf tenderness, clubbing, pedal edema Neurological exam: PRESENT: alert, awake, oriented to person, oriented to place , oriented to time, oriented to situation, CN II-XII grossly intact. ABSENT: motor sensory deficit Psychiatric exam: PRESENT: appropriate affect, normal mood. ABSENT: homicidal ideation, suicidal ideation Skin exam: PRESENT: dry, intact, warm. ABSENT: cyanosis, rash Results Laboratory Results: 11/14/17 04:53 11/14/17 04:53 11/13/17 11/14/17 11/14/17 15:30 04:53 04:53 WBC 12.5 H 14.5 H RBC 2.46 L 2.45 L Hgb 8.1 L 8.1 L Hct 22.3 L 22.2 L MCV 91 91 MCH 33.1 33.2 MCHC 36.5 H 36.6 H RDW 23.5 H 24.3 H Plt Count 276 291 Seg Neutrophils % 57.0 Not Reportable Lymphocytes % 17.3 Not Reportable Monocytes % 9.2 Not Reportable Eosinophils % 15.2 H Not Reportable Basophils % 1.3 Not Reportable Absolute Neutrophils 7.2 Not Reportable Absolute Lymphocytes 2.2 Not Reportable Absolute Monocytes 1.2 Not Reportable Absolute Eosinophils 1.9 H Not Reportable Absolute Basophils 0.2 Not Reportable Retic Count (auto) 13.84 H Absolute Retic 0.339 H Sodium 140.9 Potassium 4.0 Chloride 105 Carbon Dioxide 25 Anion Gap 11 BUN 4 L Creatinine 0.50 L Est GFR ( Amer) > 60 Est GFR (Non-Af Amer) > 60 Glucose 77 Calcium 8.4 Phosphorus 3.9 Magnesium 1.6 Total Bilirubin 15.1 H D AST 37 H ALT 32 Alkaline Phosphatase 88 Total Protein 6.3 Albumin 3.3 L Impressions: Chest X-Ray 11/11/17 00:00 IMPRESSION: No acute findings Assessment & Plan - Diagnosis (1) Sickle cell crisis Is this a current diagnosis for this admission?: Yes Plan: Improved, but still recommended continued hospitalization, pt is going to leave A. 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
== END 2017-11-14 14:20 | disposition left against medical advice (07) | DRG 812 ==
LOC: ER 14:21 → EH 17:48 → 3W 19:13
PROVIDERS: ADMIT Internal Medicine; ATTEND Internal Medicine
PROC: 30233N1 Transfusion of Nonautologous Red Blood Cells into Peripheral Vein, Percutaneous Approach (ICD-10-PCS; principal; 2017-11-13)
DX: D57.00 Hb-SS disease with crisis, unspecified (principal); E87.0 Hyperosmolality and hypernatremia; I82.5Z1 Chronic embolism and thrombosis of unspecified deep veins of right distal lower extremity; R17 Unspecified jaundice; E87.6 Hypokalemia; R74.8 Abnormal levels of other serum enzymes; F41.8 Other specified anxiety disorders; J45.909 Unspecified asthma, uncomplicated; M54.9 Dorsalgia, unspecified; Z79.01 Long term (current) use of anticoagulants; Z79.51 Long term (current) use of inhaled steroids; Z79.899 Other long term (current) drug therapy
CPT/HCPCS: 36415; 36430; 71046; 80048; 80053; 80076; 81001; 83615; 83735; 84100; 85025; 85027; 85045; 86850; 86900; 86901; 86920; 87086; 94640; 94799; 96374; 99285; J1170; J1200; J2405; J3490; J7030; J7620; P9016

== ENCOUNTER 2017-11-15 03:44 | Inpatient (IN) | payer MEDICAID ==
[2017-11-15] MEDS ORDERED: NORMAL SALINE 1000 ML 1,000 ML IV ONE ×2 (04:12→06:11)
--- NOTE | 2017-11-15 04:17 | RADIOLOGY REPORT (SQ) ---
EXAM DESCRIPTION: XR CHEST 1 VIEW COMPLETED DATE/TME: 11/15/2017 03:52 CLINICAL HISTORY: 22 years Female, CP COMPARISON: 7.7.18 NUMBER OF VIEWS/TECHNIQUE: 1/AP FINDINGS: Adequate lung volume, clear parenchyma, normal cardiac silhouette, right miniport central line tip at the SVC, and intact bony thorax. IMPRESSION: No acute cardiopulmonary findings.
[2017-11-15] MEDS ORDERED: HYDROMORPHONE HCL INJ/PF 2 MG/ML AMPULE IV ONE ×3 (04:21→05:50)
--- NOTE | 2017-11-15 04:22 | ER Document Report ---
ED General Pain - General Mode of Arrival: Medic Information source: Patient TRAVEL OUTSIDE OF THE [place] IN LAST 30 DAYS: No <CRISSY STERN - Last Filed: 11/15/17 04:43> <RADHA WOLFF - Last Filed: 11/15/17 06:23> - General Chief Complaint: Shortness Of Breath Stated Complaint: BREATHING PROBLEMS Time Seen by Provider: 11/15/17 03:51 Notes: 22-year-old female with sickle cell disease that presents to the emergency department today with chest pain. Patient states the pain woke her up from her sleep. Patient states that she is out of pain medication at home. Patient states she has had a slight cough but denies fevers. Patient states her pain now is similar to her previous sickle cell flares. (CRISSY STERN) - Related Data Allergies/Adverse Reactions: morphine Allergy (Severe, Verified 11/15/17 03:53) RASH,SWELLING jacob peppers Adverse Reaction (Severe, Uncoded 11/15/17 03:53) throat closes Past Medical History - General Information source: Patient - Social History Smoking Status: Never Smoker Cigarette use (# per day): No Frequency of alcohol use: None Drug Abuse: None Lives with: Family Family History: Reviewed & Not Pertinent, Other - Sickle cell Patient has suicidal ideation: No Patient has homicidal ideation: No - Past Medical History Cardiac Medical History: Reports: Hx DVT - RUE s/p port placement Pulmonary Medical History: Reports: Hx Asthma, Hx Bronchitis - once in past per patient, Hx Pneumonia - 2014 Renal/ Medical History: Denies: Hx Peritoneal Dialysis Musculoskeletal Medical History: Reports Hx Musculoskeletal Trauma Psychiatric Medical History: Reports: Hx Anxiety, Hx Depression Past Surgical History: Reports: Hx Cholecystectomy - 06/28/2015, Hx Vascular Surgery - port put in December,, Other - Port-A-Cath in right upper chest - Immunizations Immunizations up to date: Yes Hx Diphtheria, Pertussis, Tetanus Vaccination: Yes <CRISSY STERN - Last Filed: 11/15/17 04:43> Review of Systems - Review of Systems Constitutional: denies: Fever EENT: No symptoms reported Cardiovascular: See HPI, Chest pain Respiratory: See HPI, Cough Gastrointestinal: No symptoms reported Genitourinary: No symptoms reported Female Genitourinary: No symptoms reported Musculoskeletal: No symptoms reported Skin: No symptoms reported Hematologic/Lymphatic: No symptoms reported Neurological/Psychological: No symptoms reported -: Yes All other systems reviewed and negative <CRISSY STERN - Last Filed: 11/15/17 04:43> Physical Exam - Vital signs Interpretation: Normal - General General appearance: Alert In distress: None - Appears uncomfortable - HEENT Head: Normocephalic, Atraumatic Eyes: Normal Pupils: PERRL - Respiratory Respiratory status: No respiratory distress Chest status: Nontender Breath sounds: Normal Chest palpation: Normal - Cardiovascular Rhythm: Regular Heart sounds: Normal auscultation Murmur: No - Abdominal Inspection: Normal Distension: No distension Bowel sounds: Normal Tenderness: Nontender Organomegaly: No organomegaly - Back Back: Normal, Nontender - Extremities General upper extremity: Normal inspection, Nontender, Normal color, Normal ROM , Normal temperature General lower extremity: Normal inspection, Nontender, Normal color, Normal ROM , Normal temperature, Normal weight bearing. No: Glen's sign - Neurological Neuro grossly intact: Yes Cognition: Normal Orientation: AAOx4 Sina Coma Scale Eye Opening: Spontaneous Sina Coma Scale Verbal: Oriented Sina Coma Scale Motor: Obeys Commands Sina Coma Scale Total: 15 Speech: Normal Motor strength normal: LUE, RUE, LLE, RLE Sensory: Normal - Psychological Associated symptoms: Normal affect, Normal mood - Skin Skin Temperature: Warm Skin Moisture: Dry Skin Color: Normal <RADHA WOLFF - Last Filed: 11/15/17 06:23> - Vital signs Vitals: Temp Pulse Resp BP Pulse Ox 98.5 F 76 20 128/75 H 96 11/15/17 03:51 11/15/17 03:51 11/15/17 03:51 11/15/17 03:51 11/15/17 03:51 Course - Laboratory Result Diagrams: 11/15/17 04:13 11/15/17 04:13 <CRISSY STERN - Last Filed: 11/15/17 04:43> - Laboratory Result Diagrams: 11/15/17 04:13 11/15/17 04:13 - Diagnostic Test Radiology reviewed: Reports reviewed <RADHA WOLFF - Last Filed: 11/15/17 06:23> - Re-evaluation Re-evalutation: 11/15/17 06:23 Patient is a 22-year-old female who presents complaining of pain related to her sickle cell disease, specifically chest pain. High reticulocyte count. Patient just left the hospital AGAINST MEDICAL ADVICE yesterday. She has been given fluids, Dilaudid, and is still having pain. She will be referred to the hospitalist service for management of her sickle cell crisis. Stable at time of admission. (RADHA WOLFF) - Vital Signs Vital signs: Temp Pulse Resp BP Pulse Ox 98.5 F 65 20 120/58 L 96 11/15/17 03:51 11/15/17 05:33 11/15/17 05:33 11/15/17 05:33 11/15/17 05:33 - Laboratory Laboratory results interpreted by me: 11/15/17 11/15/17 11/15/17 04:13 04:13 06:00 WBC 13.9 H RBC 2.51 L Hgb 8.3 L Hct 22.8 L MCHC 36.4 H RDW 25.1 H Eosinophils % (Manual) 7 H Abs Neuts (Manual) 0.0 L Abs Lymphs (Manual) 0.0 L Abs Monocytes (Manual) 0.0 L Retic Count (auto) 13.84 H Absolute Retic 0.347 H BUN 4 L Creatinine 0.47 L Total Bilirubin 13.3 H Direct Bilirubin 1.4 H Albumin 3.4 L Urine Ketones TRACE H Urine Urobilinogen 4.0 H Discharge <CRISSY STERN - Last Filed: 11/15/17 04:43> - Discharge Admitting Provider: Hospitalist - [facility] Admitted: Telemetry <RADHA WOLFF - Last Filed: 11/15/17 06:23> - Discharge Clinical Impression: Vaso-occlusive sickle cell crisis Condition: Stable Disposition: ADMITTED INPATIENT Scribe Documentation - Scribe Written by Marisel:: Marisel Bower, 11/15/2017 0447 acting as scribe for :: Terry <CRISSY STERN - Last Filed: 11/15/17 04:43>
[2017-11-15 04:25] LABS: ABSOLUTE RETICS # 0.347 10^6/uL (0.028-0.122); HEMATOCRIT 22.8 % (36.0-47.0); HEMOGLOBIN 8.3 g/dL (12.0-15.5); MEAN CORPUSCULAR HEMOGLOBIN 33.1 pg (27.0-33.4); MEAN CORPUSCULAR HGB CONC 36.4 g/dL (32.0-36.0); MEAN CORPUSCULAR VOLUME 91 fl (80-97); PLATELET COUNT 345 10^3/uL (150-450); RED BLOOD COUNT 2.51 10^6/uL (3.72-5.28); RED CELL DISTRIBUTION WIDTH 25.1 % (11.5-14.0); RETICULOCYTE COUNT (AUTO) 13.84 % (0.66-2.85)
[2017-11-15 04:45] LABS: BASOPHILS % (MANUAL) 1 % (0-2); EOSINOPHILS % (MANUAL) 7 % (0-6); LYMPHOCYTES % (MANUAL) 14 % (13-45); MONOCYTES % (MANUAL) 3 % (3-13); NUCLEATED RED BLOOD CELLS 8 /100 WBC (0); SEGMENTED NEUTROPHILS % (MAN) 75 % (42-78); TOTAL CELLS COUNTED 100
[2017-11-15 04:49] LABS: ANISOCYTOSIS 4+; HYPOCHROMASIA 1+; PLATELET COMMENT ADEQUATE; POIKILOCYTOSIS 3+; POLYCHROMASIA 2+; SCHISTOCYTES 1+; SICKLE RED CELLS 3+; TARGET CELLS 1+
[2017-11-15 04:56] LABS: WHITE BLOOD COUNT 13.9 10^3/uL (4.0-10.5)
[2017-11-15 05:02] LABS: ALANINE AMINOTRANSFERASE 28 U/L (9-52); ALBUMIN 3.4 g/dL (3.5-5.0); ALKALINE PHOSPHATASE 84 U/L (38-126); ANION GAP 10 (5-19); ASPARTATE AMINO TRANSFERASE 35 U/L (14-36); BILIRUBIN,DIRECT 1.4 mg/dL (0.0-0.4); BILIRUBIN,TOTAL 13.3 mg/dL (0.2-1.3); BLOOD UREA NITROGEN 4 mg/dL (7-20); CALCIUM 8.8 mg/dL (8.4-10.2); CARBON DIOXIDE 27 mmol/L (22-30); CHLORIDE 106 mmol/L (98-107); GLUCOSE 97 mg/dL (75-110); POTASSIUM 3.7 mmol/L (3.6-5.0); SODIUM 142.6 mmol/L (137-145); TOTAL PROTEIN 6.7 g/dL (6.3-8.2)
[2017-11-15 06:12] LABS: APPEARANCE,URINE CLEAR; BILIRUBIN,URINE NEGATIVE (NEGATIVE); COLOR,URINE YELLOW; GLUCOSE, URINE NEGATIVE (NEGATIVE); KETONES,URINE TRACE mg/dL (NEGATIVE); LEUKOCYTE ESTERASE,URINE NEGATIVE (NEGATIVE); NITRITE,URINE NEGATIVE (NEGATIVE); PROTEIN,URINE NEGATIVE (NEGATIVE); URINE SPECIFIC GRAVITY 1.005
[2017-11-15] MEDS ORDERED: ONDANSETRON HCL INJ/PF 4 MG/2 ML SDV IV PRN (09:20)
[2017-11-15] MEDS ORDERED: HYDROMORPHONE HCL 2 MG TABLET PO PRN (09:20)
[2017-11-15] MEDS ORDERED: IPRATROPIUM/ALBUTEROL 0.5-2.5 MG/3 ML AMPUL NEB PRN (09:20)
[2017-11-15] MEDS ORDERED: (PENDING PHARMACY ID) (Hydroxyzine Hcl [Atarax 25 Mg Tablet] 25 MG) PO PRN (09:26)
--- NOTE | 2017-11-15 09:29 | PDOC H&P ---
History of Present Illness Admission Date/PCP: 11/15/17 06:31 No PCP Patient complains of: Shortness of breath and chest pain History of Present Illness: CASSANDRA MIDDLETON is a 22 year old female with a known history of sickle cell who was admitted recently and left AGAINST MEDICAL ADVICE yesterday and returning today for continued shortness of breath and chest pain. Patient was admitted a few days ago and was being treated for her sickle cell crisis but she had to leave yesterday because she had some personal issues at home. I had a long conversation with her yesterday about leaving AGAINST MEDICAL ADVICE but she did not want to stay. At that time we were giving IV fluids and pain medications. Patient states that she could not stay and had to leave. Patient states after she went home she took care of her personal problems but continued to have shortness of breath and chest pain. She states that she has come back today because she has chest pain in all over her chest, right and left side. States it is mostly in her sternal area. States she feels like she is in crisis again, states that this is normally how she feels when she is in sickle cell crisis. Other symptoms of fevers/chills, abdominal pain, nausea vomiting, dizziness, lightness or weakness. Past Medical History Cardiac Medical History: Reports: DVT - RUE s/p port placement Pulmonary Medical History: Reports: Asthma, Bronchitis - once in past per patient, Pneumonia - 2014 Psychiatric Medical History: Reports: Depression Hematology: Reports: Anemia, Sickle Cell Disease Denies: Bleeding Tendencies Past Surgical History Past Surgical History: Reports: Cholecystectomy - 06/28/2015, Vascular Surgery - port put in December,, Other - Port-A-Cath in right upper chest Social History Lives with: Family Smoking Status: Never Smoker Frequency of Alcohol Use: None Hx Recreational Drug Use: No Drugs: None Hx Prescription Drug Abuse: No - Advance Directive Resuscitation Status: Full Code Family History Family History: Reviewed & Not Pertinent, Other - Sickle cell Parental Family History Reviewed: Yes Children Family History Reviewed: Unknown Sibling(s) Family History Reviewed.: Unknown Medication/Allergy Home Medications: Albuterol Sulfate [Proair HFA Inhalation Aerosol 8.5 gm MDI] 1 puff IH Q4HP PRN 10/06/17 Aripiprazole [Abilify 15 mg Tablet] 15 mg PO QHS 10/06/17 Escitalopram Oxalate [Lexapro] 5 mg PO QHS 10/06/17 Hydroxyzine HCl [Atarax 25 mg Tablet] 25 mg PO Q8HP PRN 10/06/17 Oxycodone HCl [Oxy-Ir 5 mg Tablet] 5 mg PO Q6HP PRN 10/06/17 Rivaroxaban [Xarelto] 20 mg PO DAILY 10/06/17 Zolpidem Tartrate [Ambien] 10 mg PO QHS 10/06/17 Allergies/Adverse Reactions: morphine Allergy (Severe, Verified 11/15/17 03:53) RASH,SWELLING jacob peppers Adverse Reaction (Severe, Uncoded 11/15/17 03:53) throat closes Review of Systems All systems: reviewed and no additional remarkable complaints except as stated Constitutional: ABSENT: chills, fever(s) Cardiovascular: PRESENT: chest pain Gastrointestinal: ABSENT: abdominal pain, nausea, vomiting Musculoskeletal: ABSENT: joint swelling Neurological: ABSENT: abnormal gait, focal weakness Physical Exam Vital Signs: Temp Pulse Resp BP Pulse Ox 98 F 64 16 103/63 98 11/15/17 09:03 11/15/17 09:03 11/15/17 09:03 11/15/17 09:03 11/15/17 09:03 Intake & Output 11/14/17 11/15/17 11/16/17 06:59 06:59 06:59 Intake Total 1000 Balance 1000 General appearance: PRESENT: no acute distress, mild distress - States her chest wall is hurting Head exam: PRESENT: atraumatic, normocephalic Eye exam: PRESENT: EOMI, PERRLA, scleral icterus Ear exam: PRESENT: normal external ear exam Mouth exam: PRESENT: neck supple, tongue midline Neck exam: ABSENT: tracheal deviation Respiratory exam: PRESENT: clear to auscultation samaria, symmetrical Cardiovascular exam: PRESENT: +S1, +S2, other - Chest wall tender to palpation mostly at the sternum Pulses: PRESENT: +2 pedal pulses bilateral Vascular exam: PRESENT: normal capillary refill GI/Abdominal exam: PRESENT: normal bowel sounds, soft. ABSENT: tenderness Extremities exam: ABSENT: joint swelling, pedal edema Neurological exam: PRESENT: alert, awake, oriented to person, oriented to place , oriented to time, oriented to situation, CN II-XII grossly intact Skin exam: PRESENT: dry, jaundice - Noted around face and arms but difficult to tell given that she is -[place], warm Results Impressions: Chest X-Ray 11/15/17 03:52 IMPRESSION: No acute cardiopulmonary findings. Assessment & Plan - Diagnosis (1) Sickle cell crisis Is this a current diagnosis for this admission?: Yes Plan: I think this is a flareup of her sickle cell anemia. We will start her on IV fluids and pain control as needed. At home she is on Dilaudid and oxycodone. I will start her on OxyContin 20 mg twice daily and Dilaudid 1 mg every 4 hours as needed. We will increase the dose as needed. Repeat blood work. Transfuse for hemoglobin less than 7. (2) DVT (deep venous thrombosis) Is this a current diagnosis for this admission?: Yes Plan: History of prior DVT and she is currently on Xarelto and will continue. (3) Sickle cell anemia Is this a current diagnosis for this admission?: Yes Plan: See plan above (4) Hyperbilirubinemia Is this a current diagnosis for this admission?: Yes Plan: Likely secondary to her sickle cell crisis/flareup. She is jaundiced. Continue with IV fluids and hopefully her bilirubin will trend down. Repeat blood work in the morning. Consider getting right upper quadrant ultrasound if needed. - Time Time Spent: 50 to 70 Minutes - Plan Summary Plan Summary: Admit to inpatient, I think she will require more than 2 midnights to get her sickle cell flare under control
[2017-11-15] MEDS: OXYCODONE HCL SR 10 MG TABLET PO SCH ×2 (10:41→21:40)
[2017-11-15] MEDS: DOCUSATE SODIUM 100 MG CAPSULE PO SCH ×2 (10:42→18:03)
[2017-11-15] MEDS: FAMOTIDINE 20 MG TABLET PO SCH ×2 (10:42→21:46)
[2017-11-15] MEDS: NORMAL SALINE 1000 ML 1,000 ML IV PRN ×2 (10:43→20:59)
[2017-11-15] MEDS: HYDROMORPHONE HCL 2 MG TABLET PO PRN ×2 (13:52→18:04)
[2017-11-15] MEDS ORDERED: HEPARIN SOD (PORCINE) 5,000 UNIT/ML 1 ML SYRINGE SUBCUT SCH (14:00)
[2017-11-15] MEDS: RIVAROXABAN 10 MG TABLET PO SCH (18:03)
[2017-11-15] MEDS: ARIPIPRAZOLE 5 MG TABLET PO SCH (21:41)
[2017-11-15] MEDS: ZOLPIDEM TARTRATE 5 MG TABLET PO SCH (21:41)
[2017-11-15] MEDS: ESCITALOPRAM OXALATE 10 MG TABLET PO SCH (21:42)
[2017-11-15] MEDS ORDERED: (PENDING PHARMACY ID) (Aripiprazole [Abilify 15 Mg Tablet] 15 MG) PO SCH (22:00)
[2017-11-15] MEDS ORDERED: (PENDING PHARMACY ID) (Zolpidem Tartrate [Ambien] 10 MG) PO SCH (22:00)
[2017-11-15] MEDS ORDERED: (PENDING PHARMACY ID) (Escitalopram Oxalate [Lexapro] 5 MG) PO SCH (22:00)
[2017-11-16] MEDS: NORMAL SALINE 1000 ML 1,000 ML IV PRN ×2 (05:08→16:03)
[2017-11-16] MEDS: HYDROMORPHONE HCL 2 MG TABLET PO PRN (06:50)
[2017-11-16 07:27] LABS: MEAN CORPUSCULAR HEMOGLOBIN 33.5 pg (27.0-33.4); MEAN CORPUSCULAR HGB CONC 35.6 g/dL (32.0-36.0); MEAN CORPUSCULAR VOLUME 94 fl (80-97); PLATELET COUNT 336 10^3/uL (150-450); RED BLOOD COUNT 2.33 10^6/uL (3.72-5.28); RED CELL DISTRIBUTION WIDTH 25.5 % (11.5-14.0); WHITE BLOOD COUNT 11.2 10^3/uL (4.0-10.5)
[2017-11-16 07:49] LABS: ABSOLUTE LYMPHOCYTES# (MANUAL) 2.2 10^3/uL (0.5-4.7); ABSOLUTE MONOCYTES # (MANUAL) 0.3 10^3/uL (0.1-1.4); ABSOLUTE NEUTROPHILS# (MANUAL) 7.2 10^3/uL (1.7-8.2); BASOPHILS % (MANUAL) 1 % (0-2); EOSINOPHILS % (MANUAL) 12 % (0-6); LYMPHOCYTES % (MANUAL) 20 % (13-45); MONOCYTES % (MANUAL) 3 % (3-13); NUCLEATED RED BLOOD CELLS 14 /100 WBC (0); SEGMENTED NEUTROPHILS % (MAN) 64 % (42-78); TOTAL CELLS COUNTED 100
[2017-11-16 07:51] LABS: ANION GAP 10 (5-19); CALCIUM 8.3 mg/dL (8.4-10.2); CARBON DIOXIDE 24 mmol/L (22-30); CHLORIDE 109 mmol/L (98-107); CREATINE KINASE 29 U/L (30-135); GLUCOSE 79 mg/dL (75-110); POTASSIUM 3.7 mmol/L (3.6-5.0); SODIUM 142.9 mmol/L (137-145)
--- NOTE | 2017-11-16 07:54 | EKG REPORT ---
SEVERITY:- NORMAL ECG - SINUS RHYTHM : Confirmed by: Kris Baker MD 16-Nov-2017 07:53:12
[2017-11-16 07:55] LABS: BLOOD UREA NITROGEN < 2 mg/dL (7-20)
[2017-11-16 07:56] LABS: ANISOCYTOSIS 3+; OVALOCYTES 1+; PLATELET COMMENT ADEQUATE; POIKILOCYTOSIS 3+; POLYCHROMASIA 1+; SICKLE RED CELLS 1+; TARGET CELLS 1+
[2017-11-16 07:59] LABS: HEMOGLOBIN 7.8 g/dL (12.0-15.5)
[2017-11-16] MEDS: MAGNESIUM SULFATE/D5W 1 GM/100 ML RTUPB IV SCH ×2 (09:28→10:34)
[2017-11-16] MEDS: DOCUSATE SODIUM 100 MG CAPSULE PO SCH ×2 (09:29→17:46)
[2017-11-16] MEDS: FAMOTIDINE 20 MG TABLET PO SCH ×2 (09:29→21:58)
[2017-11-16] MEDS: OXYCODONE HCL SR 10 MG TABLET PO SCH ×2 (09:29→21:58)
[2017-11-16] MEDS ORDERED: POLYETHYLENE GLYCOL 3350 POWDER 17 GM/1 PACKET PO PRN (11:42)
[2017-11-16] MEDS ORDERED: HYDROMORPHONE HCL INJ/PF 2 MG/ML AMPULE IV ONE (11:45)
[2017-11-16] MEDS ORDERED: DIPHENHYDRAMINE HCL 50 MG/ML VIAL IV PRN (11:46)
--- NOTE | 2017-11-16 12:35 | PDOC CONSULTATION ---
Consultation Consult Date: 11/16/17 Attending physician:: MELL SALAMANCA Consult reason:: Severe back pain, crisis, sickle cell disease History of Present Illness Admission Date/PCP: 11/15/17 06:31 Patient complains of: Severe back pain, crisis, sickle cell disease History of Present Illness: CASSANDRA MIDDLETON is a 22 year old female with known history of sickle cell disease with crisis, presents soon after discharge with severe bone pain, consistent with continued crisis. As noted previously on last visit she went AGAINST MEDICAL ADVICE, she is having pain in the similar areas, still having quite a bit of jaundice, and appears dehydrated. Past Medical History Cardiac Medical History: Reports: DVT - RUE s/p port placement Pulmonary Medical History: Reports: Asthma, Bronchitis - once in past per patient, Pneumonia - 2014 Psychiatric Medical History: Reports: Depression Hematology: Reports: Anemia, Sickle Cell Disease Denies: Bleeding Tendencies Past Surgical History Past Surgical History: Reports: Cholecystectomy - 06/28/2015, Vascular Surgery - port put in December,, Other - Port-A-Cath in right upper chest Social History Information Source: Patient Lives with: Family Smoking Status: Never Smoker Frequency of Alcohol Use: None Hx Recreational Drug Use: No Drugs: None Hx Prescription Drug Abuse: No - Advance Directive Resuscitation Status: Full Code Family History Family History: Reviewed & Not Pertinent, Other - Sickle cell Parental Family History Reviewed: Yes Children Family History Reviewed: Yes Sibling(s) Family History Reviewed.: Yes Medication/Allergy Home Medications: Aripiprazole [Abilify 15 mg Tablet] 15 mg PO QHS 11/15/17 Diphenhydramine HCl [Benadryl 25 mg Capsule] 25 mg PO Q6HP PRN 11/15/17 Docusate Sodium [Colace 100 mg Capsule] 100 mg PO DAILYP PRN 11/15/17 Escitalopram Oxalate [Lexapro] 5 mg PO QHS 11/15/17 Hydromorphone HCl [Dilaudid] 8 mg PO Q6HP PRN 11/15/17 Oxycodone HCl [Oxy-Ir 5 mg Tablet] 5 mg PO Q6HP PRN 11/15/17 Rivaroxaban [Xarelto] 20 mg PO WSUPPER 11/15/17 Zolpidem Tartrate [Ambien] 10 mg PO QHS 11/15/17 Allergies/Adverse Reactions: morphine Allergy (Severe, Verified 11/15/17 03:53) RASH,SWELLING jacob peppers Adverse Reaction (Severe, Uncoded 11/15/17 03:53) throat closes Review of Systems Constitutional: PRESENT: fatigue, weakness Cardiovascular: PRESENT: dyspnea on exertion Gastrointestinal: ABSENT: abdominal pain, constipation, diarrhea, hematemesis, hematochezia, nausea, vomiting Musculoskeletal: PRESENT: back pain Neurological: ABSENT: abnormal gait, abnormal speech, confusion, dizziness, focal weakness, syncope Endocrine: PRESENT: cold intolerance Physical Exam Vital Signs: Temp Pulse Resp BP Pulse Ox 97.9 F 65 25 H 115/63 95 11/16/17 07:32 11/16/17 07:32 11/16/17 07:32 11/16/17 07:32 11/16/17 07:32 Intake & Output 11/15/17 11/16/17 11/17/17 06:59 06:59 06:59 Intake Total 3600 100 Balance 3600 100 Weight 63.1 kg General appearance: PRESENT: mild distress Eye exam: PRESENT: scleral icterus Mouth exam: PRESENT: dry mucosa Neck exam: ABSENT: carotid bruit, JVD, lymphadenopathy, thyromegaly Respiratory exam: PRESENT: clear to auscultation samaria. ABSENT: rales, rhonchi, wheezes Cardiovascular exam: PRESENT: bradycardia GI/Abdominal exam: PRESENT: normal bowel sounds, soft. ABSENT: distended, guarding, mass, organolmegaly, rebound, tenderness Rectal exam: PRESENT: deferred Neurological exam: PRESENT: alert, awake, oriented to person, oriented to place , oriented to time, oriented to situation, CN II-XII grossly intact. ABSENT: motor sensory deficit Skin exam: PRESENT: jaundice Results Laboratory Results: 11/16/17 06:50 11/16/17 06:50 11/16/17 11/16/17 06:50 06:50 WBC 11.2 H RBC 2.33 L Hgb 7.8 L Hct 22.0 L MCV 94 MCH 33.5 H MCHC 35.6 RDW 25.5 H Plt Count 336 Seg Neutrophils % Not Reportable Lymphocytes % Not Reportable Monocytes % Not Reportable Eosinophils % Not Reportable Basophils % Not Reportable Absolute Neutrophils Not Reportable Absolute Lymphocytes Not Reportable Absolute Monocytes Not Reportable Absolute Eosinophils Not Reportable Absolute Basophils Not Reportable Sodium 142.9 Potassium 3.7 Chloride 109 H Carbon Dioxide 24 Anion Gap 10 BUN < 2 L Creatinine 0.46 L Est GFR ( Amer) > 60 Est GFR (Non-Af Amer) > 60 Glucose 79 Calcium 8.3 L Magnesium 1.5 L 11/15/17 11/15/17 11/16/17 10:30 15:30 06:50 Creatine Kinase 29 L Troponin I < 0.012 < 0.012 Impressions: Chest X-Ray 11/15/17 03:52 IMPRESSION: No acute cardiopulmonary findings. Assessment & Plan - Diagnosis (1) Vaso-occlusive sickle cell crisis Is this a current diagnosis for this admission?: Yes Plan: Sickle cell crisis, I have put her back on IV Dilaudid, given K pad for comfort , Benadryl for itching, continue other supportive measures along with aggressive hydration. She will need several days of inpatient stay to get over this crisis. 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 - Time Time Spent: Greater than 70 Minutes - Inpatient Certification Based on my medical assessment, after consideration of the patient's comorbidities, presenting symptoms, or acuity I expect that the services needed warrant INPATIENT care.: Yes I certify that my determination is in accordance with my understanding of Medicare's requirements for reasonable and necessary INPATIENT services [42 CFR 412.3e].: Yes Medical Necessity: Need For IV Fluids, Need for Pain Control
--- NOTE | 2017-11-16 15:35 | PDOC PROGRESS REPORT ---
Subjective Progress Note for:: 11/16/17 - Seen on rounds this morning Subjective:: States her pain is better now that she has IV Dilaudid Reason For Visit: SICKLE CELL CRISIS Physical Exam Vital Signs: Temp Pulse Resp BP Pulse Ox 97.9 F 52 L 12 120/71 97 11/16/17 11:58 11/16/17 11:58 11/16/17 11:58 11/16/17 11:58 11/16/17 11:58 Intake & Output 11/15/17 11/16/17 11/17/17 06:59 06:59 06:59 Intake Total 3600 337 Balance 3600 337 Weight 139 lb 1.787 oz General appearance: PRESENT: no acute distress, mild distress - Complaining of sternal wall tenderness to palpation Head exam: PRESENT: atraumatic, normocephalic Eye exam: PRESENT: EOMI, PERRLA, scleral icterus Ear exam: PRESENT: normal external ear exam Mouth exam: PRESENT: neck supple, tongue midline Neck exam: ABSENT: tracheal deviation Respiratory exam: PRESENT: clear to auscultation samaria, symmetrical Cardiovascular exam: PRESENT: +S1, +S2 Pulses: PRESENT: +2 pedal pulses bilateral GI/Abdominal exam: PRESENT: normal bowel sounds, soft. ABSENT: tenderness Extremities exam: ABSENT: joint swelling, pedal edema Neurological exam: PRESENT: alert, awake, oriented to person, oriented to place , oriented to time, oriented to situation, CN II-XII grossly intact Skin exam: PRESENT: dry, warm Results Laboratory Results: 11/16/17 06:50 11/16/17 06:50 11/16/17 11/16/17 06:50 06:50 WBC 11.2 H RBC 2.33 L Hgb 7.8 L Hct 22.0 L MCV 94 MCH 33.5 H MCHC 35.6 RDW 25.5 H Plt Count 336 Seg Neutrophils % Not Reportable Lymphocytes % Not Reportable Monocytes % Not Reportable Eosinophils % Not Reportable Basophils % Not Reportable Absolute Neutrophils Not Reportable Absolute Lymphocytes Not Reportable Absolute Monocytes Not Reportable Absolute Eosinophils Not Reportable Absolute Basophils Not Reportable Sodium 142.9 Potassium 3.7 Chloride 109 H Carbon Dioxide 24 Anion Gap 10 BUN < 2 L Creatinine 0.46 L Est GFR ( Amer) > 60 Est GFR (Non-Af Amer) > 60 Glucose 79 Calcium 8.3 L Magnesium 1.5 L 11/15/17 11/15/17 11/16/17 10:30 15:30 06:50 Creatine Kinase 29 L Troponin I < 0.012 < 0.012 Impressions: Chest X-Ray 11/15/17 03:52 IMPRESSION: No acute cardiopulmonary findings. Assessment & Plan - Diagnosis (1) Sickle cell crisis Is this a current diagnosis for this admission?: Yes Plan: Continue with IV fluids at 125 cc an hour. Consulted oncology and I appreciate for his recommendation in consultation. He has adjusted her pain meds. Continue with pain control and IV fluids. Currently she is jaundiced due to elevated bilirubin levels. (2) DVT (deep venous thrombosis) Is this a current diagnosis for this admission?: Yes Plan: History of prior DVT and she is currently on Xarelto and will continue. (3) Sickle cell anemia Is this a current diagnosis for this admission?: Yes (4) Hyperbilirubinemia Is this a current diagnosis for this admission?: Yes Plan: Likely secondary to her sickle cell crisis/flareup. She is jaundiced. Continue with IV fluids and hopefully her bilirubin will trend down. Repeat blood work in the morning. Consider getting right upper quadrant ultrasound if needed. - Time Time Spent with patient: 15-24 minutes - Plan Summary Plan Summary: Likely will need more than a few days for her sickle cell crisis to resolve
[2017-11-16] MEDS: HYDROMORPHONE HCL INJ/PF 2 MG/ML AMPULE IV PRN ×2 (16:25→19:52)
[2017-11-16] MEDS: RIVAROXABAN 10 MG TABLET PO SCH (17:47)
[2017-11-16] MEDS: ESCITALOPRAM OXALATE 10 MG TABLET PO SCH (21:57)
[2017-11-16] MEDS: ZOLPIDEM TARTRATE 5 MG TABLET PO SCH (21:57)
[2017-11-16] MEDS: ARIPIPRAZOLE 5 MG TABLET PO SCH (21:57)
[2017-11-17] MEDS: NORMAL SALINE 1000 ML 1,000 ML IV PRN ×3 (00:10→17:53)
[2017-11-17] MEDS: HYDROMORPHONE HCL INJ/PF 2 MG/ML AMPULE IV PRN ×5 (02:43→20:19)
[2017-11-17 06:36] LABS: HEMATOCRIT 22.3 % (36.0-47.0); MEAN CORPUSCULAR HEMOGLOBIN 33.9 pg (27.0-33.4); MEAN CORPUSCULAR HGB CONC 35.5 g/dL (32.0-36.0); MEAN CORPUSCULAR VOLUME 95 fl (80-97); PLATELET COUNT 327 10^3/uL (150-450); RED BLOOD COUNT 2.34 10^6/uL (3.72-5.28); RED CELL DISTRIBUTION WIDTH 26.5 % (11.5-14.0)
[2017-11-17 06:38] LABS: ALANINE AMINOTRANSFERASE 27 U/L (9-52); ALBUMIN 3.2 g/dL (3.5-5.0); ALKALINE PHOSPHATASE 78 U/L (38-126); ANION GAP 10 (5-19); ASPARTATE AMINO TRANSFERASE 28 U/L (14-36); BILIRUBIN,DIRECT 1.4 mg/dL (0.0-0.4); BILIRUBIN,TOTAL 8.1 mg/dL (0.2-1.3); BLOOD UREA NITROGEN 3 mg/dL (7-20); CALCIUM 8.5 mg/dL (8.4-10.2); CARBON DIOXIDE 25 mmol/L (22-30); CHLORIDE 109 mmol/L (98-107); GLUCOSE 110 mg/dL (75-110); POTASSIUM 3.9 mmol/L (3.6-5.0); SODIUM 143.8 mmol/L (137-145); TOTAL PROTEIN 6.2 g/dL (6.3-8.2)
[2017-11-17 07:30] LABS: ABSOLUTE LYMPHOCYTES# (MANUAL) 2.2 10^3/uL (0.5-4.7); ABSOLUTE MONOCYTES # (MANUAL) 0.9 10^3/uL (0.1-1.4); ABSOLUTE NEUTROPHILS# (MANUAL) 6.2 10^3/uL (1.7-8.2); BASOPHILS % (MANUAL) 2 % (0-2); EOSINOPHILS % (MANUAL) 14 % (0-6); LYMPHOCYTES % (MANUAL) 20 % (13-45); MONOCYTES % (MANUAL) 8 % (3-13); NUCLEATED RED BLOOD CELLS 17 /100 WBC (0); SEGMENTED NEUTROPHILS % (MAN) 56 % (42-78); TOTAL CELLS COUNTED 100
[2017-11-17 07:35] LABS: ANISOCYTOSIS 3+; BURR CELLS SLIGHT; PLATELET COMMENT ADEQUATE; POIKILOCYTOSIS 2+; TARGET CELLS 2+; TEAR DROP CELLS 1+; TOXIC GRANULATION SLIGHT; TOXIC VACUOLATION PRESENT
[2017-11-17 07:37] LABS: WHITE BLOOD COUNT 10.4 10^3/uL (4.0-10.5)
[2017-11-17 07:56] LABS: HEMOGLOBIN 7.9 g/dL (12.0-15.5)
--- NOTE | 2017-11-17 08:30 | PDOC PROGRESS REPORT ---
Subjective Progress Note for:: 11/17/17 Subjective:: Better today, hb stable Reason For Visit: SICKLE CELL CRISIS Physical Exam Vital Signs: Temp Pulse Resp BP Pulse Ox 97.9 F 71 20 122/70 97 11/17/17 03:10 11/17/17 03:10 11/17/17 03:10 11/17/17 03:10 11/17/17 03:10 Intake & Output 11/16/17 11/17/17 11/18/17 06:59 06:59 06:59 Intake Total 3600 3327 Balance 3600 3327 Weight 63.1 kg 62.6 kg General appearance: PRESENT: no acute distress, well-developed, well-nourished Head exam: PRESENT: atraumatic, normocephalic Eye exam: PRESENT: conjunctiva pink, EOMI, PERRLA. ABSENT: scleral icterus Ear exam: PRESENT: normal external ear exam Mouth exam: PRESENT: moist, tongue midline Neck exam: ABSENT: carotid bruit, JVD, lymphadenopathy, thyromegaly Respiratory exam: PRESENT: clear to auscultation samaria. ABSENT: rales, rhonchi, wheezes Cardiovascular exam: PRESENT: RRR. ABSENT: diastolic murmur, rubs, systolic murmur Pulses: PRESENT: normal dorsalis pedis pul Vascular exam: PRESENT: normal capillary refill GI/Abdominal exam: PRESENT: normal bowel sounds, soft. ABSENT: distended, guarding, mass, organolmegaly, rebound, tenderness Rectal exam: PRESENT: deferred Extremities exam: PRESENT: full ROM. ABSENT: calf tenderness, clubbing, pedal edema Neurological exam: PRESENT: alert, awake, oriented to person, oriented to place , oriented to time, oriented to situation, CN II-XII grossly intact. ABSENT: motor sensory deficit Psychiatric exam: PRESENT: appropriate affect, normal mood. ABSENT: homicidal ideation, suicidal ideation Skin exam: PRESENT: dry, intact, warm. ABSENT: cyanosis, rash Results Laboratory Results: 11/17/17 05:55 11/17/17 05:55 11/17/17 11/17/17 11/17/17 05:55 05:55 05:55 WBC 10.4 RBC 2.34 L Hgb 7.9 L Hct 22.3 L MCV 95 MCH 33.9 H MCHC 35.5 RDW 26.5 H Plt Count 327 Seg Neutrophils % Not Reportable Lymphocytes % Not Reportable Monocytes % Not Reportable Eosinophils % Not Reportable Basophils % Not Reportable Absolute Neutrophils Not Reportable Absolute Lymphocytes Not Reportable Absolute Monocytes Not Reportable Absolute Eosinophils Not Reportable Absolute Basophils Not Reportable Sodium 143.8 Potassium 3.9 Chloride 109 H Carbon Dioxide 25 Anion Gap 10 BUN 3 L Creatinine 0.46 L Est GFR ( Amer) > 60 Est GFR (Non-Af Amer) > 60 Glucose 110 Calcium 8.5 Total Bilirubin 8.1 H AST 28 ALT 27 Alkaline Phosphatase 78 Total Protein 6.2 L Albumin 3.2 L Blood Type O POSITIVE Antibody Screen NEGATIVE 11/15/17 11/15/17 11/16/17 10:30 15:30 06:50 Creatine Kinase 29 L Troponin I < 0.012 < 0.012 Impressions: Chest X-Ray 11/15/17 03:52 IMPRESSION: No acute cardiopulmonary findings. 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 Hemolytic anemia type : other hemoglobinopathy Qualified Code(s): D58.2 - Other hemoglobinopathies Is this a current diagnosis for this admission?: Yes Plan: 2nd SS dx, hb stable - Time Time Spent with patient: 35 or more minutes - Inpatient Certification Based on my medical assessment, after consideration of the patient's comorbidities, presenting symptoms, or acuity I expect that the services needed warrant INPATIENT care.: Yes I certify that my determination is in accordance with my understanding of Medicare's requirements for reasonable and necessary INPATIENT services [42 CFR 412.3e].: Yes Medical Necessity: Need For IV Fluids, Need for Pain Control
[2017-11-17] MEDS: FAMOTIDINE 20 MG TABLET PO SCH ×2 (09:40→21:02)
[2017-11-17] MEDS: DOCUSATE SODIUM 100 MG CAPSULE PO SCH ×2 (09:40→17:53)
[2017-11-17] MEDS: OXYCODONE HCL SR 10 MG TABLET PO SCH ×2 (09:48→21:02)
--- NOTE | 2017-11-17 13:48 | PDOC PROGRESS REPORT ---
Subjective Progress Note for:: 11/17/17 Subjective:: Patient reports feeling better. Still says she is having pain. Reason For Visit: SICKLE CELL CRISIS Physical Exam Vital Signs: Temp Pulse Resp BP Pulse Ox 97.9 F 63 12 122/70 98 11/17/17 03:10 11/17/17 09:00 11/17/17 09:00 11/17/17 03:10 11/17/17 09:00 Intake & Output 11/16/17 11/17/17 11/18/17 06:59 06:59 06:59 Intake Total 3600 3327 1000 Balance 3600 3327 1000 Weight 63.1 kg 62.6 kg General appearance: PRESENT: no acute distress, well-developed, well-nourished Head exam: PRESENT: atraumatic, normocephalic Eye exam: PRESENT: conjunctiva pink, EOMI, PERRLA. ABSENT: scleral icterus Ear exam: PRESENT: normal external ear exam Mouth exam: PRESENT: moist, tongue midline Neck exam: ABSENT: carotid bruit, JVD, lymphadenopathy, thyromegaly Respiratory exam: PRESENT: clear to auscultation samaria. ABSENT: rales, rhonchi, wheezes Cardiovascular exam: PRESENT: RRR. ABSENT: diastolic murmur, rubs, systolic murmur Pulses: PRESENT: normal dorsalis pedis pul Vascular exam: PRESENT: normal capillary refill GI/Abdominal exam: PRESENT: normal bowel sounds, soft. ABSENT: distended, guarding, mass, organolmegaly, rebound, tenderness Rectal exam: PRESENT: deferred Extremities exam: PRESENT: full ROM. ABSENT: calf tenderness, clubbing, pedal edema Neurological exam: PRESENT: alert, awake, oriented to person, oriented to place , oriented to time, oriented to situation, CN II-XII grossly intact. ABSENT: motor sensory deficit Psychiatric exam: PRESENT: appropriate affect, normal mood. ABSENT: homicidal ideation, suicidal ideation Skin exam: PRESENT: dry, intact, warm. ABSENT: cyanosis, rash Results Laboratory Results: 11/17/17 05:55 11/17/17 05:55 11/17/17 11/17/17 11/17/17 05:55 05:55 05:55 WBC 10.4 RBC 2.34 L Hgb 7.9 L Hct 22.3 L MCV 95 MCH 33.9 H MCHC 35.5 RDW 26.5 H Plt Count 327 Seg Neutrophils % Not Reportable Lymphocytes % Not Reportable Monocytes % Not Reportable Eosinophils % Not Reportable Basophils % Not Reportable Absolute Neutrophils Not Reportable Absolute Lymphocytes Not Reportable Absolute Monocytes Not Reportable Absolute Eosinophils Not Reportable Absolute Basophils Not Reportable Sodium 143.8 Potassium 3.9 Chloride 109 H Carbon Dioxide 25 Anion Gap 10 BUN 3 L Creatinine 0.46 L Est GFR ( Amer) > 60 Est GFR (Non-Af Amer) > 60 Glucose 110 Calcium 8.5 Total Bilirubin 8.1 H AST 28 ALT 27 Alkaline Phosphatase 78 Total Protein 6.2 L Albumin 3.2 L Blood Type O POSITIVE Antibody Screen NEGATIVE 11/15/17 11/15/17 11/16/17 10:30 15:30 06:50 Creatine Kinase 29 L Troponin I < 0.012 < 0.012 Impressions: Chest X-Ray 11/15/17 03:52 IMPRESSION: No acute cardiopulmonary findings. Assessment & Plan - Diagnosis (1) Sickle cell anemia Is this a current diagnosis for this admission?: Yes Plan: Hg stable, no need for transfusion at this ,nd (2) Sickle cell crisis Is this a current diagnosis for this admission?: Yes (3) DVT (deep venous thrombosis) Is this a current diagnosis for this admission?: Yes Plan: On Xarelto - Time Time Spent with patient: 15-24 minutes Medications reviewed and adjusted accordingly: Yes Anticipated discharge: Home Within: within 48 hours - Inpatient Certification Based on my medical assessment, after consideration of the patient's comorbidities, presenting symptoms, or acuity I expect that the services needed warrant INPATIENT care.: Yes Medical Necessity: Need For IV Fluids, Need for Pain Control
[2017-11-17] MEDS: RIVAROXABAN 10 MG TABLET PO SCH (17:52)
[2017-11-17] MEDS: ZOLPIDEM TARTRATE 5 MG TABLET PO SCH (21:02)
[2017-11-17] MEDS: ESCITALOPRAM OXALATE 10 MG TABLET PO SCH (21:02)
[2017-11-17] MEDS: ARIPIPRAZOLE 5 MG TABLET PO SCH (21:02)
[2017-11-18] MEDS: NORMAL SALINE 1000 ML 1,000 ML IV PRN ×2 (03:20→11:23)
[2017-11-18] MEDS: HYDROMORPHONE HCL INJ/PF 2 MG/ML AMPULE IV PRN ×3 (03:23→12:35)
[2017-11-18] MEDS ORDERED: HYDROMORPHONE HCL 2 MG TABLET PO PRN (08:56)
[2017-11-18] MEDS ORDERED: HYDROMORPHONE HCL INJ 2 MG/ML 20 ML MDV IV PRN (08:57)
[2017-11-18] MEDS: DOCUSATE SODIUM 100 MG CAPSULE PO SCH ×2 (11:23→17:05)
[2017-11-18] MEDS: FAMOTIDINE 20 MG TABLET PO SCH (11:23)
--- NOTE | 2017-11-18 16:24 | PDOC DISCHARGE SUMMARY ---
General - Admit/Disc Date/PCP Admission Date/Primary Care Provider: 11/15/17 06:31 Discharge Date: 11/18/17 - Discharge Diagnosis (1) Sickle cell anemia Is this a current diagnosis for this admission?: Yes (2) Sickle cell crisis Is this a current diagnosis for this admission?: Yes (3) DVT (deep venous thrombosis) Is this a current diagnosis for this admission?: Yes - Additional Information Resuscitation Status: Full Code Discharge Diet: Regular Discharge Activity: Activity As Tolerated Home Medications: Aripiprazole [Abilify 15 mg Tablet] 15 mg PO QHS 11/15/17 Diphenhydramine HCl [Benadryl 25 mg Capsule] 25 mg PO Q6HP PRN 11/15/17 Docusate Sodium [Colace 100 mg Capsule] 100 mg PO DAILYP PRN 11/15/17 Escitalopram Oxalate [Lexapro] 5 mg PO QHS 11/15/17 Hydromorphone HCl [Dilaudid] 8 mg PO Q6HP PRN 11/15/17 Oxycodone HCl [Oxy-Ir 5 mg Tablet] 5 mg PO Q6HP PRN 11/15/17 Rivaroxaban [Xarelto] 20 mg PO WSUPPER 11/15/17 Zolpidem Tartrate [Ambien] 10 mg PO QHS 11/15/17 History of Present Illness History of Present Illness: CASSANDRA MIDDLETON is a 22 year old female Patient was admitted with sickle cell crisis. S Hospital Course Hospital Course: She was started on aggressive intravenous fluids and received intravenous narcotics as well as oxygen support. She was anemic as expected but required no transfusion as she was above the threshold for transfusion. Symptoms have gradually improved and at this point it is felt that she can be discharged home for outpatient management. 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 Physical Exam Vital Signs: Temp Pulse Resp BP Pulse Ox 99.1 F 59 L 16 124/76 94 11/18/17 12:06 11/18/17 14:00 11/18/17 12:21 11/18/17 12:06 11/18/17 12:06 Intake & Output 11/17/17 11/18/17 11/19/17 06:59 06:59 06:59 Intake Total 3327 3971 1236 Balance 3327 3971 1236 Weight 62.6 kg 63.4 kg General appearance: PRESENT: no acute distress, well-developed, well-nourished Head exam: PRESENT: atraumatic, normocephalic Eye exam: PRESENT: conjunctiva pink, EOMI, PERRLA. ABSENT: scleral icterus Ear exam: PRESENT: normal external ear exam Mouth exam: PRESENT: moist, tongue midline Neck exam: ABSENT: carotid bruit, JVD, lymphadenopathy, thyromegaly Respiratory exam: PRESENT: clear to auscultation samaria. ABSENT: rales, rhonchi, wheezes Cardiovascular exam: PRESENT: RRR. ABSENT: diastolic murmur, rubs, systolic murmur Pulses: PRESENT: normal dorsalis pedis pul Vascular exam: PRESENT: normal capillary refill GI/Abdominal exam: PRESENT: normal bowel sounds, soft. ABSENT: distended, guarding, mass, organolmegaly, rebound, tenderness Rectal exam: PRESENT: deferred Extremities exam: PRESENT: full ROM. ABSENT: calf tenderness, clubbing, pedal edema Neurological exam: PRESENT: alert, awake, oriented to person, oriented to place , oriented to time, oriented to situation, CN II-XII grossly intact. ABSENT: motor sensory deficit Psychiatric exam: PRESENT: appropriate affect, normal mood. ABSENT: homicidal ideation, suicidal ideation Skin exam: PRESENT: dry, intact, warm. ABSENT: cyanosis, rash Results Laboratory Results: 11/17/17 05:55 11/17/17 05:55 11/15/17 11/15/17 11/16/17 10:30 15:30 06:50 Creatine Kinase 29 L Troponin I < 0.012 < 0.012 Impressions: Chest X-Ray 11/15/17 03:52 IMPRESSION: No acute cardiopulmonary findings. Qualifiers - * PATIENT BEING DISCHARGED WITH ANY OF THE FOLLOWING DIAGNOSIS: No Plan Time Spent: Less than 30 Minutes
[2017-11-18 16:28] VITALS: BP 101/58
[2017-11-18] MEDS: RIVAROXABAN 10 MG TABLET PO SCH (17:05)
--- NOTE | 2017-11-18 17:16 | PDOC PROGRESS REPORT ---
Subjective Progress Note for:: 11/18/17 Subjective:: Pain improved, feeling overall better, walked in [place] yesterday Reason For Visit: SICKLE CELL CRISIS Physical Exam Vital Signs: Temp Pulse Resp BP Pulse Ox 98.9 F 53 L 17 101/58 L 96 11/18/17 16:27 11/18/17 16:27 11/18/17 16:27 11/18/17 16:27 11/18/17 16:27 Intake & Output 11/17/17 11/18/17 11/19/17 06:59 06:59 06:59 Intake Total 3327 3971 1236 Balance 3327 3971 1236 Weight 62.6 kg 63.4 kg General appearance: PRESENT: no acute distress, well-developed, well-nourished Head exam: PRESENT: atraumatic, normocephalic Eye exam: PRESENT: conjunctiva pink, EOMI, PERRLA. ABSENT: scleral icterus Ear exam: PRESENT: normal external ear exam Mouth exam: PRESENT: moist, tongue midline Neck exam: ABSENT: carotid bruit, JVD, lymphadenopathy, thyromegaly Respiratory exam: PRESENT: clear to auscultation samaria. ABSENT: rales, rhonchi, wheezes Cardiovascular exam: PRESENT: RRR. ABSENT: diastolic murmur, rubs, systolic murmur Pulses: PRESENT: normal dorsalis pedis pul Vascular exam: PRESENT: normal capillary refill GI/Abdominal exam: PRESENT: normal bowel sounds, soft. ABSENT: distended, guarding, mass, organolmegaly, rebound, tenderness Rectal exam: PRESENT: deferred Extremities exam: PRESENT: full ROM. ABSENT: calf tenderness, clubbing, pedal edema Neurological exam: PRESENT: alert, awake, oriented to person, oriented to place , oriented to time, oriented to situation, CN II-XII grossly intact. ABSENT: motor sensory deficit Psychiatric exam: PRESENT: appropriate affect, normal mood. ABSENT: homicidal ideation, suicidal ideation Skin exam: PRESENT: dry, intact, warm. ABSENT: cyanosis, rash Results Laboratory Results: 11/17/17 05:55 11/17/17 05:55 11/15/17 11/15/17 11/16/17 10:30 15:30 06:50 Creatine Kinase 29 L Troponin I < 0.012 < 0.012 Impressions: Chest X-Ray 11/15/17 03:52 IMPRESSION: No acute cardiopulmonary findings. 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
[2017-11-18] MEDS ORDERED: HYDROMORPHONE HCL INJ/PF 2 MG/ML AMPULE IV PRN (18:00)
== END 2017-11-18 17:30 | disposition home or self-care (01) | DRG 812 ==
LOC: ER 03:44 → EH 06:31 → 3S 09:25
PROVIDERS: ADMIT Internal Medicine; ATTEND Internal Medicine
DX: D57.00 Hb-SS disease with crisis, unspecified (principal); R17 Unspecified jaundice; F41.8 Other specified anxiety disorders; M54.89 Other dorsalgia; Z86.718 Personal history of other venous thrombosis and embolism; Z79.01 Long term (current) use of anticoagulants; Z79.899 Other long term (current) drug therapy
CPT/HCPCS: 36415; 71045; 80048; 80053; 81001; 82550; 83615; 83735; 84484; 84702; 85025; 85045; 86850; 86900; 86901; 93005; 93010; 96361; 96374; 96376; 99285; J1170; J2405; J3475; J7030

== ENCOUNTER 2017-12-04 23:01 | Emergency (ER) | payer MEDICAID ==
[2017-12-05] MEDS ORDERED: ONDANSETRON HCL INJ/PF 4 MG/2 ML SDV IV ONE (00:56)
[2017-12-05] MEDS ORDERED: HYDROMORPHONE HCL INJ/PF 2 MG/ML AMPULE IV ONE ×3 (00:56→05:08)
--- NOTE | 2017-12-05 00:57 | ER Document Report ---
ED Medical Screen (RME) - General Chief Complaint: Sickle Cell Crisis Stated Complaint: POSSIBLE SICKLE CELL CRISIS Time Seen by Provider: 12/05/17 00:53 Notes: 22-year-old female with a history of sickle cell anemia that comes to the emergency department for chief complaint of pain in her mid chest and legs worsening since yesterday, denies fever, difficulty breathing. On pain medication at home, follows with local oncology/hematology. States her pain medications are not working. TRAVEL OUTSIDE OF THE [place] IN LAST 30 DAYS: No - Related Data Allergies/Adverse Reactions: morphine Allergy (Severe, Verified 12/03/17 12:01) RASH,SWELLING jacob peppers Adverse Reaction (Severe, Uncoded 12/03/17 12:01) throat closes Past Medical History - Social History Family history: Reviewed & Not Pertinent, Other - Pt was adopted. Does not know family history - Past Medical History Cardiac Medical History: Reports: Hx DVT - RUE s/p port placement Pulmonary Medical History: Reports: Hx Asthma, Hx Bronchitis - once in past per patient, Hx Pneumonia - 2014 Renal/ Medical History: Denies: Hx Peritoneal Dialysis Musculoskeltal Medical History: Reports Hx Musculoskeletal Trauma Psychiatric Medical History: Reports: Hx Anxiety, Hx Depression Past Surgical History: Reports: Hx Cholecystectomy - 06/28/2015, Hx Vascular Surgery - port put in December,, Other - Port-A-Cath in right upper chest - Immunizations Immunizations up to date: Yes Hx Diphtheria, Pertussis, Tetanus Vaccination: Yes History of Influenza Vaccine for 12/2016 - 05/2017 Season: Yes Influenza Administration Date for 12/2016 - 05/2017 Season: 03/11/17 Physical Exam - Vital signs Vitals: Temp Pulse Resp BP Pulse Ox 98.3 F 88 20 118/67 98 12/04/17 23:10 12/04/17 23:10 12/04/17 23:10 12/04/17 23:10 12/04/17 23:10 - General General appearance: Appears well In distress: None - Respiratory Respiratory status: No respiratory distress. No: Labored, Retractions Breath sounds: Normal. No: Decreased air movement, Wheezing - Cardiovascular Rhythm: Regular. No: Tachycardia Heart sounds: Normal auscultation, S1 appreciated, S2 appreciated Course - Vital Signs Vital signs: Temp Pulse Resp BP Pulse Ox 98.3 F 88 20 118/67 98 12/04/17 23:10 12/04/17 23:10 12/04/17 23:10 12/04/17 23:10 12/04/17 23:10 Doctor's Discharge - Discharge Referrals: JOIE MOREIRA MD [Primary Care Provider] - Follow up as needed
[2017-12-05 02:06] LABS: ABSOLUTE RETICS # 0.052 10^6/uL (0.028-0.122); HEMATOCRIT 30.4 % (36.0-47.0); HEMOGLOBIN 10.6 g/dL (12.0-15.5); MEAN CORPUSCULAR HEMOGLOBIN 32.8 pg (27.0-33.4); MEAN CORPUSCULAR VOLUME 94 fl (80-97); PLATELET COUNT 393 10^3/uL (150-450); RED BLOOD COUNT 3.24 10^6/uL (3.72-5.28); RED CELL DISTRIBUTION WIDTH 17.8 % (11.5-14.0); RETICULOCYTE COUNT (AUTO) 1.61 % (0.66-2.85); WHITE BLOOD COUNT 14.2 10^3/uL (4.0-10.5)
[2017-12-05 02:24] LABS: ABSOLUTE LYMPHOCYTES# (MANUAL) 3.7 10^3/uL (0.5-4.7); ABSOLUTE MONOCYTES # (MANUAL) 0.3 10^3/uL (0.1-1.4); ABSOLUTE NEUTROPHILS# (MANUAL) 10.1 10^3/uL (1.7-8.2); BASOPHILS % (MANUAL) 0 % (0-2); EOSINOPHILS % (MANUAL) 1 % (0-6); LYMPHOCYTES % (MANUAL) 26 % (13-45); MONOCYTES % (MANUAL) 2 % (3-13); SEGMENTED NEUTROPHILS % (MAN) 71 % (42-78); TOTAL CELLS COUNTED 100
[2017-12-05 02:26] LABS: PLATELET COMMENT ADEQUATE; SICKLE RED CELLS SLIGHT; TARGET CELLS 1+; TOXIC VACUOLATION PRESENT
[2017-12-05 02:27] LABS: ANISOCYTOSIS 1+; POIKILOCYTOSIS 1+
[2017-12-05 02:28] LABS: ALANINE AMINOTRANSFERASE 26 U/L (9-52); ALBUMIN 4.5 g/dL (3.5-5.0); ALKALINE PHOSPHATASE 84 U/L (38-126); ANION GAP 13 (5-19); ASPARTATE AMINO TRANSFERASE 34 U/L (14-36); BILIRUBIN,DIRECT 0.4 mg/dL (0.0-0.4); BILIRUBIN,TOTAL 3.7 mg/dL (0.2-1.3); BLOOD UREA NITROGEN 6 mg/dL (7-20); CALCIUM 9.6 mg/dL (8.4-10.2); CARBON DIOXIDE 22 mmol/L (22-30); CHLORIDE 108 mmol/L (98-107); GLUCOSE 96 mg/dL (75-110); POLYCHROMASIA SLIGHT; POTASSIUM 3.7 mmol/L (3.6-5.0); SODIUM 142.8 mmol/L (137-145); TOTAL PROTEIN 8.2 g/dL (6.3-8.2)
--- NOTE | 2017-12-05 02:48 | RADIOLOGY REPORT (SQ) ---
EXAM DESCRIPTION: XR CHEST 2 VIEWS COMPLETED DATE/TME: 12/05/2017 02:26 CLINICAL HISTORY: sickle cell, chest pain COMPARISON: 12/03/2017 FINDINGS: Frontal and lateral views of the chest. Right IJ Mediport with tip in the SVC. The cardiomediastinal silhouette has normal size and contour. No consolidation, pneumothorax, or pleural effusion. No acute osseous abnormality. Upper abdominal soft tissues are unremarkable. IMPRESSION: 1. No acute pulmonary process identified.
[2017-12-05 02:50] LABS: APPEARANCE,URINE CLEAR; BILIRUBIN,URINE NEGATIVE (NEGATIVE); COLOR,URINE YELLOW; GLUCOSE, URINE NEGATIVE (NEGATIVE); KETONES,URINE NEGATIVE (NEGATIVE); LEUKOCYTE ESTERASE,URINE NEGATIVE (NEGATIVE); NITRITE,URINE NEGATIVE (NEGATIVE); PROTEIN,URINE NEGATIVE (NEGATIVE); URINE SPECIFIC GRAVITY 1.012
[2017-12-05] MEDS ORDERED: DIPHENHYDRAMINE HCL 50 MG/ML VIAL IV ONE ×2 (03:42→05:09)
--- NOTE | 2017-12-05 03:50 | ER Document Report ---
ED General Pain - General Chief Complaint: Sickle Cell Crisis Stated Complaint: POSSIBLE SICKLE CELL CRISIS Time Seen by Provider: 12/05/17 00:53 Mode of Arrival: Ambulatory Information source: Patient Notes: Patient is a 22-year-old female sickle cell patient presenting to the emergency department complaining of anterior chest pain, left leg pain. Patient states pain has increased and gotten worse over the last 3 days. Patient states she is taking 2 mg of Dilaudid at home as directed by her instructional leader, which is not helping the pain. Patient stated upon arrival her pain was 6 out of 10. Patient denies any shortness of breath, URI symptoms, fever, nausea, vomiting, dysuria, trauma to left leg.. Patient does states she has had 5 episodes of diarrhea today and denies any blood. Patient has past medical history of sickle cell, asthma, cholecystectomy, implanted port right chest. Patient takes Dilaudid, Abilify, Lexapro, Hydrea. Patient has an allergy to morphine. TRAVEL OUTSIDE OF THE [place] IN LAST 30 DAYS: No - Related Data Allergies/Adverse Reactions: morphine Allergy (Severe, Verified 12/03/17 12:01) RASH,SWELLING jacob peppers Adverse Reaction (Severe, Uncoded 12/03/17 12:01) throat closes Past Medical History - General Information source: Patient - Social History Smoking Status: Never Smoker Lives with: Alone Family History: Reviewed & Not Pertinent, Other - Sickle cell Patient has suicidal ideation: No Patient has homicidal ideation: No - Past Medical History Cardiac Medical History: Reports: Hx DVT - RUE s/p port placement Pulmonary Medical History: Reports: Hx Asthma, Hx Bronchitis - once in past per patient, Hx Pneumonia - 2014 Renal/ Medical History: Denies: Hx Peritoneal Dialysis Musculoskeletal Medical History: Reports Hx Musculoskeletal Trauma Psychiatric Medical History: Reports: Hx Anxiety, Hx Depression Past Surgical History: Reports: Hx Cholecystectomy - 06/28/2015, Hx Vascular Surgery - port put in December,, Other - Port-A-Cath in right upper chest - Immunizations Immunizations up to date: Yes Hx Diphtheria, Pertussis, Tetanus Vaccination: Yes Review of Systems - Review of Systems Constitutional: See HPI EENT: See HPI Cardiovascular: See HPI Respiratory: See HPI Gastrointestinal: No symptoms reported Genitourinary: No symptoms reported Female Genitourinary: No symptoms reported Musculoskeletal: See HPI Skin: See HPI Hematologic/Lymphatic: No symptoms reported Neurological/Psychological: No symptoms reported Physical Exam - Vital signs Vitals: Temp Pulse Resp BP Pulse Ox 98.3 F 88 20 118/67 98 12/04/17 23:10 12/04/17 23:10 12/04/17 23:10 12/04/17 23:10 12/04/17 23:10 - Notes Notes: GENERAL: Alert, interacts well. No acute distress. HEAD: Normocephalic, atraumatic. EYES: Pupils equal, round, and reactive to light. Extraocular movements intact. ENT: Oral mucosa moist, tongue midline. NECK: Full range of motion. Supple. Trachea midline. LUNGS: Clear to auscultation bilaterally, no wheezes, rales, or rhonchi. No respiratory distress. HEART: Regular rate and rhythm. No murmur ABDOMEN: Soft, non-tender. Non-distended. Bowel sounds present in all 4 quadrants. EXTREMITIES: Moves all 4 extremities spontaneously. No edema, normal radial and dorsalis pedis pulses bilaterally. No cyanosis. No obvious deformity, full range of motion all extremities. BACK: no cervical, thoracic, lumbar midline tenderness. No saddle anesthesia, normal distal neurovascular exam. NEUROLOGICAL: Alert and oriented x3. Normal speech. . PSYCH: Normal affect, normal mood. SKIN: Warm, dry, normal turgor. No rashes or lesions noted. Course - Re-evaluation Re-evalutation: Pt presents with acute SS crisis, labs show no real change from Pts baseline. CXR WNL. After first dose of pain medications pt stated pain is still 6/10. After second dose of pain medications Pt stated pain is 4/10. After third dose of pain medications Pt. is sitting up in the room with her legs crossed eating crackers and peanut butter. Pt. stated she feels "100% better" and wishes to go home. With Pts current presentation she will be d/c. Pt stated she has "plenty of medications" at home. Return precautions given. - Vital Signs Vital signs: Temp Pulse Resp BP Pulse Ox 98.3 F 88 15 98/50 L 100 12/04/17 23:10 12/04/17 23:10 12/05/17 07:01 12/05/17 07:01 12/05/17 07:01 - Laboratory Result Diagrams: 12/05/17 01:53 12/05/17 01:53 Laboratory results interpreted by me: 12/05/17 12/05/17 12/05/17 01:53 01:53 02:05 WBC 14.2 H RBC 3.24 L Hgb 10.6 L Hct 30.4 L RDW 17.8 H Monocytes % (Manual) 2 L Abs Neuts (Manual) 10.1 H Chloride 108 H BUN 6 L Creatinine 0.51 L Total Bilirubin 3.7 H Urine Urobilinogen 4.0 H Discharge - Discharge Clinical Impression: Sickle cell anemia with crisis Condition: Stable Disposition: HOME, SELF-CARE Additional Instructions: Sickle Cell Crisis You have "sickle cell crisis." Sickle cell disease is caused by abnormal hemoglobin. This hemoglobin can deform red blood cells into a sickle shape. These abnormal blood cells can block blood vessels. This causes the pain of sickle cell crisis. Sickle cell crisis can occur any time. But attacks are more likely with acute infection, dehydration, or altitude change. A crisis usually causes pain in the legs, back, abdomen, and chest. Sometimes the pain may ease and return later. The usual treatment is oxygen, pain medication, IV fluids, and treatment of infection. Attacks may take a couple of days to resolve. Return if the pain becomes more severe, or if there are new symptoms. Referrals: JOIE MOREIRA MD [Primary Care Provider] - Follow up as needed
[2017-12-05 07:32] VITALS: BP 98/48
== END 2017-12-05 07:31 | disposition home or self-care (01) ==
LOC: ER 23:01
DX: D57.00 Hb-SS disease with crisis, unspecified (principal); R07.9 Chest pain, unspecified; M79.605 Pain in left leg; R19.7 Diarrhea, unspecified; J45.909 Unspecified asthma, uncomplicated; F32.9 Major depressive disorder, single episode, unspecified; F41.9 Anxiety disorder, unspecified; Z79.891 Long term (current) use of opiate analgesic; Z79.899 Other long term (current) drug therapy; Z88.5 Allergy status to narcotic agent; Z91.018 Allergy to other foods
CPT/HCPCS: 36591; 96376; 99284; 96374; 96375; 36415; 84703; 85025; 85045; 80053; 81001; 71046; J1200; J1170; J2405

== ENCOUNTER 2017-12-05 21:22 | Emergency (ER) | payer MEDICAID ==
--- NOTE | 2017-12-06 00:03 | ER Document Report ---
ED Medical Screen (RME) - General Chief Complaint: Back Pain Stated Complaint: LEG PAIN Time Seen by Provider: 12/06/17 00:01 Notes: 22-year-old female with a history of sickle cell anemia, chief complaint of pain in her legs, back, and also intermittently in her chest. Denies fever, vomiting, shortness of breath, passing out. Reports taking medications for pain at home but they are not helping. TRAVEL OUTSIDE OF THE [place] IN LAST 30 DAYS: No - Related Data Allergies/Adverse Reactions: morphine Allergy (Severe, Verified 12/03/17 12:01) RASH,SWELLING jacob peppers Adverse Reaction (Severe, Uncoded 12/03/17 12:01) throat closes Past Medical History - Social History Family history: Reviewed & Not Pertinent, Other - Pt was adopted. Does not know family history - Past Medical History Cardiac Medical History: Reports: Hx DVT - RUE s/p port placement Pulmonary Medical History: Reports: Hx Asthma, Hx Bronchitis - once in past per patient, Hx Pneumonia - 2014 Renal/ Medical History: Denies: Hx Peritoneal Dialysis Musculoskeltal Medical History: Reports Hx Musculoskeletal Trauma Psychiatric Medical History: Reports: Hx Anxiety, Hx Depression Past Surgical History: Reports: Hx Cholecystectomy - 06/28/2015, Hx Vascular Surgery - port put in December,, Other - Port-A-Cath in right upper chest - Immunizations Immunizations up to date: Yes Hx Diphtheria, Pertussis, Tetanus Vaccination: Yes History of Influenza Vaccine for 12/2016 - 05/2017 Season: Yes Influenza Administration Date for 12/2016 - 05/2017 Season: 03/11/17 Physical Exam - Vital signs Vitals: Temp Pulse Resp BP Pulse Ox 98.6 F 78 18 118/66 100 12/05/17 21:31 12/05/17 21:31 12/05/17 21:12/05/17 21:12/05/17 21:31 - General General appearance: Appears well In distress: None - Respiratory Respiratory status: No respiratory distress Breath sounds: Normal. No: Decreased air movement, Wheezing - Cardiovascular Rhythm: Regular. No: Tachycardia Heart sounds: Normal auscultation, S1 appreciated, S2 appreciated Course - Vital Signs Vital signs: Temp Pulse Resp BP Pulse Ox 98.6 F 78 18 118/66 100 12/05/17 21:31 12/05/17 21:31 12/05/17 21:31 12/05/17 21:31 12/05/17 21:31 Doctor's Discharge - Discharge Referrals: JOIE MOREIRA MD [Primary Care Provider] - Follow up as needed
--- NOTE | 2017-12-06 00:40 | RADIOLOGY REPORT (SQ) ---
EXAM DESCRIPTION: XR CHEST 2 VIEWS COMPLETED DATE/TME: 12/06/2017 00:02 CLINICAL HISTORY: chest COMPARISON: 12/05/2017 FINDINGS: Frontal and lateral views of the chest. Right IJ Mediport with tip in the SVC. The cardiomediastinal silhouette has normal size and contour. No consolidation, pneumothorax, or pleural effusion. Vertebral body changes compatible with sickle cell disease. Upper abdominal soft tissues are unremarkable. IMPRESSION: 1. No acute pulmonary process identified. Electronically signed by: Kai Cruz 12/05/2017 11:39 PM
[2017-12-06 02:01] LABS: ABSOLUTE BASOPHILS # (AUTO) 0.2 10^3/uL (0.0-0.2); ABSOLUTE EOSINOPHILS # (AUTO) 0.3 10^3/uL (0.0-0.6); ABSOLUTE LYMPHOCYTES (AUTO) 3.2 10^3/uL (0.5-4.7); ABSOLUTE MONOCYTES (AUTO) 0.8 10^3/uL (0.1-1.4); ABSOLUTE NEUT (AUTO) 7.3 10^3/uL (1.7-8.2); ABSOLUTE RETICS # 0.068 10^6/uL (0.028-0.122); BASOPHILS % (AUTO) 1.3 % (0-2); EOSINOPHILS % (AUTO) 2.8 % (0-6); HEMATOCRIT 28.9 % (36.0-47.0); HEMOGLOBIN 10.3 g/dL (12.0-15.5); LYMPHOCYTES % (AUTO) 27.4 % (13-45); MEAN CORPUSCULAR HEMOGLOBIN 33.3 pg (27.0-33.4); MEAN CORPUSCULAR HGB CONC 35.5 g/dL (32.0-36.0); MEAN CORPUSCULAR VOLUME 94 fl (80-97); MONOCYTES % (AUTO) 6.4 % (3-13); PLATELET COUNT 374 10^3/uL (150-450); RED BLOOD COUNT 3.08 10^6/uL (3.72-5.28); RED CELL DISTRIBUTION WIDTH 17.3 % (11.5-14.0); RETICULOCYTE COUNT (AUTO) 2.19 % (0.66-2.85); SEGMENTED NEUTROPHILS % (AUTO) 62.1 % (42-78); TOTAL CELLS COUNTED % (AUTO) 100 %; WHITE BLOOD COUNT 11.8 10^3/uL (4.0-10.5)
[2017-12-06 02:16] LABS: ALANINE AMINOTRANSFERASE 31 U/L (9-52); ALBUMIN 4.3 g/dL (3.5-5.0); ALKALINE PHOSPHATASE 82 U/L (38-126); ANION GAP 10 (5-19); ASPARTATE AMINO TRANSFERASE 31 U/L (14-36); BILIRUBIN,DIRECT 0.3 mg/dL (0.0-0.4); BILIRUBIN,TOTAL 3.2 mg/dL (0.2-1.3); BLOOD UREA NITROGEN 8 mg/dL (7-20); CALCIUM 9.5 mg/dL (8.4-10.2); CARBON DIOXIDE 23 mmol/L (22-30); CHLORIDE 110 mmol/L (98-107); GLUCOSE 96 mg/dL (75-110); POTASSIUM 4.1 mmol/L (3.6-5.0); SODIUM 143.2 mmol/L (137-145); TOTAL PROTEIN 7.9 g/dL (6.3-8.2)
[2017-12-06] MEDS ORDERED: ONDANSETRON HCL INJ/PF 4 MG/2 ML SDV IV ONE (02:19)
[2017-12-06] MEDS ORDERED: DIPHENHYDRAMINE HCL 25 MG CAPSULE PO ONE (02:19)
[2017-12-06] MEDS ORDERED: KETOROLAC TROMETHAMINE INJ/PF 30 MG/1 ML SDV IV ONE ×2 (02:19→03:57)
[2017-12-06] MEDS ORDERED: HYDROMORPHONE HCL INJ/PF 2 MG/ML AMPULE IV ONE ×3 (02:19→05:39)
--- NOTE | 2017-12-06 02:25 | ER Document Report ---
ED General Pain - General Chief Complaint: Back Pain Stated Complaint: LEG PAIN Time Seen by Provider: 12/06/17 00:01 Notes: Patient is a 22-year-old female with sickle cell anemia that comes to the emergency department for chief complaint of pain in her back, legs, and chest intermittently. She states that she was here the past 2 days and she felt good yesterday when she left but at home she is having sharp pains and this prompted her to come back. She denies vomiting, fever, difficulty breathing, focal numbness or weakness. She is taking 2 mg of Dilaudid at home. Past medical history also includes asthma, cholecystectomy, and she has a right-sided chest port. She is also on Abilify, Lexapro, hydroxyurea. TRAVEL OUTSIDE OF THE [place] IN LAST 30 DAYS: No - Related Data Allergies/Adverse Reactions: morphine Allergy (Severe, Verified 12/03/17 12:01) RASH,SWELLING jacob peppers Adverse Reaction (Severe, Uncoded 12/03/17 12:01) throat closes Past Medical History - General Information source: Patient - Social History Smoking Status: Never Smoker Chew tobacco use (# tins/day): No Frequency of alcohol use: None Drug Abuse: None Lives with: Family Family History: Reviewed & Not Pertinent, Other - Sickle cell Patient has suicidal ideation: No Patient has homicidal ideation: No - Past Medical History Cardiac Medical History: Reports: Hx DVT - RUE s/p port placement Pulmonary Medical History: Reports: Hx Asthma, Hx Bronchitis - once in past per patient, Hx Pneumonia - 2014 Renal/ Medical History: Denies: Hx Peritoneal Dialysis Musculoskeletal Medical History: Reports Hx Musculoskeletal Trauma Psychiatric Medical History: Reports: Hx Anxiety, Hx Depression Past Surgical History: Reports: Hx Cholecystectomy - 06/28/2015, Hx Vascular Surgery - port put in December,, Other - Port-A-Cath in right upper chest - Immunizations Immunizations up to date: Yes Hx Diphtheria, Pertussis, Tetanus Vaccination: Yes Review of Systems - Review of Systems Constitutional: No symptoms reported EENT: No symptoms reported Cardiovascular: See HPI Respiratory: No symptoms reported Gastrointestinal: No symptoms reported Genitourinary: No symptoms reported Female Genitourinary: No symptoms reported Musculoskeletal: See HPI Skin: No symptoms reported Hematologic/Lymphatic: No symptoms reported Neurological/Psychological: No symptoms reported Physical Exam - Vital signs Vitals: Temp Pulse Resp BP Pulse Ox 98.6 F 78 18 118/66 100 12/05/17 21:31 12/05/17 21:31 12/05/17 21:31 12/05/17 21:12/05/17 21:31 - Notes Notes: GENERAL: Alert, interacts well. No acute distress. HEAD: Normocephalic, atraumatic. EYES: Pupils equal, round, and reactive to light. Extraocular movements intact. ENT: Oral mucosa moist, tongue midline. Oral pharyngeal exam unremarkable. NECK: Full range of motion. Supple. Trachea midline. LUNGS: Clear to auscultation bilaterally, no wheezes, rales, or rhonchi. No respiratory distress. HEART: Regular rate and rhythm. No murmur ABDOMEN: Soft, non-tender. Non-distended. Bowel sounds present in all 4 quadrants. EXTREMITIES: Moves all 4 extremities spontaneously. No edema, normal radial and dorsalis pedis pulses bilaterally. No cyanosis. BACK: no cervical, thoracic, lumbar midline tenderness. No saddle anesthesia, normal distal neurovascular exam. NEUROLOGICAL: Alert and oriented x3. Normal speech. [cranial nerves II through XII grossly intact]. PSYCH: Normal affect, normal mood. SKIN: Warm, dry, normal turgor. No rashes or lesions noted. Course - Re-evaluation Re-evalutation: This is patient's third visit within the past 3 days. She is well-appearing on exam, ambulates without any obvious discomfort, no tachypnea, tachycardia, or fever. No hypoxia. After 2 rounds of medications patient states that she actually feels much better , would prefer to go home. Because she has been here 3 days in a row I will contact her laborer tin can and discussed. I discussed this with patient and she states agreement with this plan. Called and spoke with Dr. Moreira, hematology/ oncology, discussed the past 3 days, patient's vital signs, lab workup, presentation. He states that he will follow with the patient on Friday which is in 2 days, recommend she be given an IV fluid bolus and a pain medication dose before she goes home. No additional recommendations at this time, patient to follow regular return precautions. I discussed this with patient in detail, she states satisfaction and agreement with this plan. - Vital Signs Vital signs: Temp Pulse Resp BP Pulse Ox 98.6 F 78 18 118/66 100 12/05/17 21:31 12/05/17 21:31 12/05/17 21:31 12/05/17 21:31 12/05/17 21:31 - Laboratory Result Diagrams: 12/06/17 01:51 12/06/17 01:51 Laboratory results interpreted by me: 12/06/17 12/06/17 01:51 01:51 WBC 11.8 H RBC 3.08 L Hgb 10.3 L Hct 28.9 L RDW 17.3 H Chloride 110 H Total Bilirubin 3.2 H Discharge - Discharge Clinical Impression: Sickle cell pain crisis Condition: Stable Disposition: HOME, SELF-CARE Additional Instructions: I spoke with Dr. Moreira, please follow-up in the office with him on Friday. Continue your daily medications. Return to the emergency department for any concerning or worsening symptoms including fever, vomiting, severe pain, difficulty breathing, or any other concerning symptoms. Referrals: JOIE MOREIRA MD [Primary Care Provider] - Follow up as needed
[2017-12-06] MEDS ORDERED: NORMAL SALINE 1000 ML 1,000 ML IV ONE (05:35)
[2017-12-06 07:04] VITALS: BP 98/49
== END 2017-12-06 07:03 | disposition home or self-care (01) ==
LOC: ER 21:22
DX: D57.00 Hb-SS disease with crisis, unspecified (principal); M54.9 Dorsalgia, unspecified; M79.604 Pain in right leg; M79.605 Pain in left leg; R07.9 Chest pain, unspecified; Z79.899 Other long term (current) drug therapy; J45.909 Unspecified asthma, uncomplicated
CPT/HCPCS: 36591; 96376; 99284; 96361; 96374; 96375; 36415; 85025; 85045; 80053; 71046; J3490; J1885; J1170; J2405; J7030

== ENCOUNTER 2017-12-08 08:46 | Inpatient (IN) | payer MEDICAID ==
[2017-12-08] MEDS ORDERED: NORMAL SALINE 1000 ML 1,000 ML IV ONE (09:43)
[2017-12-08] MEDS ORDERED: HYDROMORPHONE HCL INJ/PF 2 MG/ML AMPULE IV ONE (09:44)
--- NOTE | 2017-12-08 09:44 | ER Document Report ---
ED General - General Chief Complaint: Sickle Cell Crisis Stated Complaint: RIGHT LEG AND BACK PAIN Time Seen by Provider: 12/08/17 09:29 TRAVEL OUTSIDE OF THE [place] IN LAST 30 DAYS: No - HPI Patient complains to provider of: leg pain Notes: Patient with history of sickle cell presents with apparent sickle cell crisis pain in the left leg is 10/10 sharp in nature without radiation nothing is made the pain better or worse. this pain been been intermittent for 1 week this is now patient's fourth visit to the emergency department. for this pain Denies fever, chest pain or cough. - Related Data Allergies/Adverse Reactions: morphine Allergy (Severe, Verified 12/08/17 08:48) RASH,SWELLING jacob peppers Adverse Reaction (Severe, Uncoded 12/08/17 08:48) throat closes Past Medical History - Social History Smoking Status: Former Smoker Family History: Reviewed & Not Pertinent, Other - Sickle cell Patient has suicidal ideation: No Patient has homicidal ideation: No - Past Medical History Cardiac Medical History: Reports: Hx DVT - RUE s/p port placement Pulmonary Medical History: Reports: Hx Asthma, Hx Bronchitis - once in past per patient, Hx Pneumonia - 2014 Renal/ Medical History: Denies: Hx Peritoneal Dialysis Musculoskeletal Medical History: Reports Hx Musculoskeletal Trauma Psychiatric Medical History: Reports: Hx Anxiety, Hx Depression Past Surgical History: Reports: Hx Cholecystectomy - 06/28/2015, Hx Vascular Surgery - port put in December,, Other - Port-A-Cath in right upper chest - Immunizations Immunizations up to date: Yes Hx Diphtheria, Pertussis, Tetanus Vaccination: Yes Review of Systems - Review of Systems Notes: REVIEW OF SYSTEMS: CONSTITUTIONAL: -fevers, -chills EENT: -eye pain, -difficulty swallowing, -nasal congestion CARDIOVASCULAR: -chest pain, -syncope. RESPIRATORY: -cough, -SOB GASTROINTESTINAL: -abdominal pain, -nausea, -vomiting, -diarrhea GENITOURINARY: -dysuria, -hematuria MUSCULOSKELETAL: -back pain, -neck pain SKIN: -rash or skin lesions. HEMATOLOGIC: -easy bruising or bleeding. LYMPHATIC: -swollen, enlarged glands. NEUROLOGICAL: -altered mental status or loss of consciousness, -headache, - neurologic symptoms PSYCHIATRIC: -anxiety, -depression. ALL OTHER SYSTEMS REVIEWED AND NEGATIVE. Physical Exam - Vital signs Vitals: Temp Pulse Resp BP Pulse Ox 98.3 F 70 18 123/66 99 12/08/17 08:58 12/08/17 08:58 12/08/17 08:58 12/08/17 08:58 12/08/17 08:58 - Notes Notes: PHYSICAL EXAMINATION: GENERAL: Well-appearing, well-nourished and in no acute distress. HEAD: Atraumatic, normocephalic. EYES: Pupils equal round and reactive to light, extraocular movements intact, sclera anicteric, conjunctiva are normal. ENT: nares patent, oropharynx clear without exudates. Moist mucous membranes. NECK: Normal range of motion, supple without lymphadenopathy LUNGS: Breath sounds clear to auscultation bilaterally and equal. No wheezes rales or rhonchi. HEART: Regular rate and rhythm without murmurs ABDOMEN: Soft, nontender, normoactive bowel sounds. No guarding, no rebound. No masses appreciated. EXTREMITIES: Normal range of motion, no pitting or edema. No cyanosis. NEUROLOGICAL: Cranial nerves grossly intact. Normal speech, normal gait. Normal sensory and motor exams. PSYCH: Normal mood, normal affect. SKIN: Warm, Dry, normal turgor, no rashes or lesions noted. Course - Re-evaluation Re-evalutation: 12/08/17 10:04 Pleasant 22-year-old female presents with apparent sickle cell crisis. Patient will be admitted to the hospital for pain management, consulted by hematology. - Vital Signs Vital signs: Temp Pulse Resp BP Pulse Ox 98.3 F 70 18 123/66 99 12/08/17 08:58 12/08/17 08:58 12/08/17 08:58 12/08/17 08:58 12/08/17 08:58 Discharge - Discharge Clinical Impression: Vaso-occlusive sickle cell crisis Condition: Stable Disposition: ADMITTED OBSERVATION Admitting Provider: Hospitalist - Dr. Watson Unit Admitted: Medical Floor Referrals: JOIE MOREIRA MD [Primary Care Provider] - Follow up as needed
[2017-12-08 10:51] LABS: ABSOLUTE BASOPHILS # (AUTO) 0.3 10^3/uL (0.0-0.2); ABSOLUTE EOSINOPHILS # (AUTO) 0.1 10^3/uL (0.0-0.6); ABSOLUTE LYMPHOCYTES (AUTO) 3.1 10^3/uL (0.5-4.7); ABSOLUTE NEUT (AUTO) 8.1 10^3/uL (1.7-8.2); ABSOLUTE RETICS # 0.091 10^6/uL (0.028-0.122); EOSINOPHILS % (AUTO) 1.2 % (0-6); HEMATOCRIT 28.2 % (36.0-47.0); LYMPHOCYTES % (AUTO) 24.4 % (13-45); MEAN CORPUSCULAR HGB CONC 35.3 g/dL (32.0-36.0); MEAN CORPUSCULAR VOLUME 94 fl (80-97); MONOCYTES % (AUTO) 7.9 % (3-13); PLATELET COUNT 399 10^3/uL (150-450); RED BLOOD COUNT 3.02 10^6/uL (3.72-5.28); RED CELL DISTRIBUTION WIDTH 17.6 % (11.5-14.0); RETICULOCYTE COUNT (AUTO) 3.02 % (0.66-2.85); SEGMENTED NEUTROPHILS % (AUTO) 64.5 % (42-78); TOTAL CELLS COUNTED % (AUTO) 100 %; WHITE BLOOD COUNT 12.6 10^3/uL (4.0-10.5)
[2017-12-08 11:05] LABS: ANION GAP 9 (5-19); BLOOD UREA NITROGEN 6 mg/dL (7-20); CALCIUM 9.3 mg/dL (8.4-10.2); CARBON DIOXIDE 24 mmol/L (22-30); CHLORIDE 109 mmol/L (98-107); GLUCOSE 85 mg/dL (75-110); POTASSIUM 3.8 mmol/L (3.6-5.0); SODIUM 142.3 mmol/L (137-145)
[2017-12-08] MEDS: HEPARIN SOD (PORCINE) 5,000 UNIT/ML 1 ML SYRINGE SUBCUT SCH (16:09)
[2017-12-08] MEDS: HYDROMORPHONE HCL INJ/PF 2 MG/ML AMPULE IV PRN ×2 (16:13→20:29)
--- NOTE | 2017-12-08 18:51 | PDOC H&P ---
History of Present Illness Admission Date/PCP: 12/08/17 10:38 JOIE MOREIRA MD Patient complains of: Pain in her right lower extremity History of Present Illness: CASSANDRA MIDDLETON is a 22 year old female who presented to the emergency room at the recommendation of her dog raiser who has been following her for sickle cell disease. She developed acute severe pain in her right lower extremity starting in her mid thigh on the medial aspect. The pain then is noted to involve the entire leg from the lower portion of the thigh through the knee and calf down to the ankle. She describes the pain as an unbearably sharp and constant without radiation. She notes that she has had numerous similar episodes in the past with her sickle cell crises. She further acknowledges that she has some slightly less severe pain in bilateral lumbar area which is also usually present with her sickle cell crises. She denies nausea, vomiting, diarrhea, abdominal pain, dysuria, urinary urgency or frequency, hematuria, pharyngitis, headache, cough, chest pain, palpitations, syncope and rash. She is not identified any aggravating or ameliorating factors for her sickle cell crises. She relates that she has had 6 or 8 of these in the last year and has had a port placed in her right chest for IV access because of the limited numbers of IV sites that she had remaining. She states that she usually receives Dilaudid for her pain control and that she also usually receives Benadryl because the Dilaudid tends to make her itch. Past Medical History Cardiac Medical History: Reports: DVT - RUE s/p port placement Pulmonary Medical History: Reports: Asthma, Bronchitis - once in past per patient, Pneumonia - 2014 [facility] Medical History: Reports: None Neurological Medical History: Denies: Hemorrhagic CVA, Ischemic CVA Endocrine Medical History: Denies: Diabetes Mellitus Type 1, Diabetes Mellitus Type 2 Renal/ Medical History: Denies: Chronic Kidney Disease, Nephrolithiasis Malignancy Medical History: Reports: None GI Medical History: Reports: None Musculoskeltal Medical History: Reports: None Skin Medical History: Reports: None Psychiatric Medical History: Reports: Depression Traumatic Medical History: Reports: None Hematology: Reports: Anemia, Sickle Cell Disease Denies: Bleeding Tendencies Infectious Medical History: Reports: None Past Surgical History Past Surgical History: Reports: Cholecystectomy - 06/28/2015, Vascular Surgery - port put in December,, Other - Port-A-Cath in right upper chest Social History Smoking Status: Former Smoker Frequency of Alcohol Use: None Hx Recreational Drug Use: No Drugs: None Hx Prescription Drug Abuse: No Family History Family History: Other - Sickle cell disease and sickle cell trait, asthma Parental Family History Reviewed: Yes Children Family History Reviewed: NA Sibling(s) Family History Reviewed.: Yes Medication/Allergy Home Medications: Aripiprazole [Abilify 15 mg Tablet] 10 mg PO QHS 11/15/17 Escitalopram Oxalate [Lexapro] 10 mg PO QHS 11/15/17 Rivaroxaban [Xarelto] 20 mg PO WSUPPER 11/15/17 Zolpidem Tartrate [Ambien] 10 mg PO QHS 11/15/17 Allergies/Adverse Reactions: morphine Allergy (Severe, Verified 12/08/17 08:48) RASH,SWELLING jacob peppers Adverse Reaction (Severe, Uncoded 12/08/17 08:48) throat closes Review of Systems Constitutional: ABSENT: anorexia, chills, fatigue, fever(s), headache(s) Eyes: ABSENT: visual disturbances, other - Eye pain Ears: ABSENT: hearing changes, other - Ear pain Nose, Mouth, and Throat: ABSENT: mouth pain, sore throat, vertigo Cardiovascular: ABSENT: chest pain, dyspnea on exertion, palpitations Respiratory: ABSENT: cough, dyspnea Gastrointestinal: ABSENT: abdominal pain, diarrhea, nausea, vomiting Genitourinary: ABSENT: dysuria, hematuria Musculoskeletal: PRESENT: back pain. ABSENT: deformity, joint swelling, muscle weakness Integumentary: PRESENT: pruritus. ABSENT: lesions, rash - With Dilaudid Neurological: ABSENT: abnormal speech, confusion, convulsions, focal weakness, memory loss, numbness, tingling Psychiatric: ABSENT: anxiety, depression, hallucinations Endocrine: ABSENT: cold intolerance, heat intolerance, polydipsia, polyphagia Hematologic/Lymphatic: ABSENT: easy bleeding, easy bruising Allergic/Immunologic: ABSENT: seasonal rhinorrhea, other - Insect bite allergies Physical Exam Vital Signs: Temp Pulse Resp BP Pulse Ox 98.3 F 70 18 123/66 99 12/08/17 08:58 12/08/17 08:58 12/08/17 08:58 12/08/17 08:58 12/08/17 08:58 Intake & Output 12/07/17 12/08/17 12/09/17 06:59 06:59 06:59 Intake Total 1000 Balance 1000 General appearance: PRESENT: no acute distress, cooperative, mild distress - Secondary to pain in her leg and back Head exam: PRESENT: atraumatic, normocephalic Eye exam: PRESENT: conjunctiva pink, EOMI, PERRLA, scleral icterus. ABSENT: conjunctival injection, nystagmus Ear exam: PRESENT: normal external ear exam. ABSENT: bleeding, drainage Mouth exam: PRESENT: moist, neck supple, tongue midline Neck exam: ABSENT: thyromegaly, tracheal deviation Respiratory exam: PRESENT: clear to auscultation samaria, symmetrical, unlabored Cardiovascular exam: PRESENT: RRR. ABSENT: clicks, gallop, rubs Pulses: PRESENT: normal radial pulses, normal dorsalis pedis pul Vascular exam: PRESENT: normal capillary refill. ABSENT: pallor GI/Abdominal exam: PRESENT: normal bowel sounds, soft Extremities exam: ABSENT: joint swelling, pedal edema, tenderness - Palpation of her right lower extremity does not elicit tenderness though she continues to have pain with or without palpation. Musculoskeletal exam: ABSENT: full ROM, normal inspection Neurological exam: PRESENT: alert, awake, oriented to person, oriented to place , oriented to time, oriented to situation, CN II-XII grossly intact. ABSENT: motor sensory deficit Psychiatric exam: PRESENT: appropriate affect, normal mood Skin exam: PRESENT: jaundice. ABSENT: rash, urticaria Assessment & Plan - Diagnosis (1) Back pain Qualifiers: Back pain location: low back pain Chronicity: acute Back pain laterality : bilateral Sciatica presence: without sciatica Qualified Code(s): M54.5 - Low back pain Is this a current diagnosis for this admission?: Yes Plan: Initiate treatment with IV fluids and IV Dilaudid adding Benadryl to prevent itching (2) Right leg pain Is this a current diagnosis for this admission?: Yes Plan: Initiate treatment with IV fluids and IV Dilaudid adding Benadryl to prevent itching (3) Sickle cell pain crisis Is this a current diagnosis for this admission?: Yes Plan: Initiate treatment with IV fluids and IV Dilaudid adding Benadryl to prevent itching - Time Time Spent: Greater than 70 Minutes Medications reviewed and adjusted accordingly: Yes Anticipated discharge: Home
[2017-12-08] MEDS: NORMAL SALINE 1000 ML 1,000 ML IV PRN (21:23)
[2017-12-08] MEDS: PROMETHAZINE HCL INJ 25 MG/1 ML VIAL IV PRN (21:23)
[2017-12-08] MEDS ORDERED: DIPHENHYDRAMINE HCL 50 MG/ML VIAL IV SCH (22:00)
[2017-12-09] MEDS ORDERED: DIPHENHYDRAMINE HCL 50 MG/ML VIAL IV ONE (00:15)
[2017-12-09] MEDS: HYDROMORPHONE HCL INJ/PF 2 MG/ML AMPULE IV PRN ×7 (00:34→23:11)
[2017-12-09] MEDS: HEPARIN SOD (PORCINE) 5,000 UNIT/ML 1 ML SYRINGE SUBCUT SCH ×4 (02:34→22:31)
[2017-12-09] MEDS: DIPHENHYDRAMINE HCL 50 MG/ML VIAL IV SCH ×4 (06:39→23:12)
[2017-12-09] MEDS: NORMAL SALINE 1000 ML 1,000 ML IV PRN (06:39)
[2017-12-09] MEDS: PROMETHAZINE HCL INJ 25 MG/1 ML VIAL IV PRN (07:20)
[2017-12-09 07:35] LABS: ANION GAP 5 (5-19); BLOOD UREA NITROGEN 6 mg/dL (7-20); CALCIUM 8.8 mg/dL (8.4-10.2); CARBON DIOXIDE 26 mmol/L (22-30); CHLORIDE 110 mmol/L (98-107); GLUCOSE 86 mg/dL (75-110); POTASSIUM 3.6 mmol/L (3.6-5.0); SODIUM 141.3 mmol/L (137-145)
[2017-12-09] MEDS ORDERED: POLYETHYLENE GLYCOL 3350 POWDER 17 GM/1 PACKET PO PRN (08:13)
[2017-12-09] MEDS ORDERED: SENNOSIDES/DOCUSATE 8.6-50 MG 1 EACH TABLET PO PRN (08:14)
[2017-12-09] MEDS ORDERED: HYDROMORPHONE HCL INJ/PF 2 MG/ML AMPULE IV PRN (08:15)
--- NOTE | 2017-12-09 08:37 | PDOC CONSULTATION ---
Consultation Consult Date: 12/09/17 Attending physician:: FABY NOGUERA Consult reason:: Acute pain crisis, sickle cell disease History of Present Illness Admission Date/PCP: 12/08/17 10:38 JOIE MOREIRA MD Patient complains of: Pain History of Present Illness: CASSANDRA MIDDLETON is a 22 year old female with long-standing history of sickle cell disease, here with acute pain crisis, had presented to the ED over 4 times in the last 5 days because of pain, was hydrated and felt well enough to go home each time until the most recent 24 hours when the pain is continuous with no improvement with oral pain medication. Thus we recommended the patient represent to the ED, and patient did come in has been admitted for hydration and pain control. She is in severe pain currently and we discussed changing her pain medication regimen and adding other supportive measures. Past Medical History Cardiac Medical History: Reports: DVT - RUE s/p port placement Pulmonary Medical History: Reports: Asthma, Bronchitis - once in past per patient, Pneumonia - 2014 [facility] Medical History: Reports: None Neurological Medical History: Denies: Hemorrhagic CVA, Ischemic CVA Endocrine Medical History: Denies: Diabetes Mellitus Type 1, Diabetes Mellitus Type 2 Renal/ Medical History: Denies: Chronic Kidney Disease, Nephrolithiasis Malignancy Medical History: Reports: None GI Medical History: Reports: None Musculoskeltal Medical History: Reports: None Skin Medical History: Reports: None Psychiatric Medical History: Reports: Depression Traumatic Medical History: Reports: None Hematology: Reports: Anemia, Sickle Cell Disease Denies: Bleeding Tendencies Infectious Medical History: Reports: None Past Surgical History Past Surgical History: Reports: Cholecystectomy - 06/28/2015, Vascular Surgery - port put in December,, Other - Port-A-Cath in right upper chest Social History Information Source: Patient Smoking Status: Former Smoker Frequency of Alcohol Use: None Hx Recreational Drug Use: No Drugs: None Hx Prescription Drug Abuse: No - Advance Directive Resuscitation Status: Full Code Family History Family History: Other - Sickle cell disease and sickle cell trait, asthma Parental Family History Reviewed: Yes Children Family History Reviewed: Yes Sibling(s) Family History Reviewed.: Yes Medication/Allergy Home Medications: Aripiprazole [Abilify 15 mg Tablet] 10 mg PO QHS 11/15/17 Escitalopram Oxalate [Lexapro] 10 mg PO QHS 11/15/17 Rivaroxaban [Xarelto] 20 mg PO WSUPPER 11/15/17 Zolpidem Tartrate [Ambien] 10 mg PO QHS 11/15/17 Allergies/Adverse Reactions: morphine Allergy (Severe, Verified 12/08/17 08:48) RASH,SWELLING jacob peppers Adverse Reaction (Severe, Uncoded 12/08/17 08:48) throat closes Review of Systems Constitutional: PRESENT: fatigue, weakness Cardiovascular: PRESENT: dyspnea on exertion Gastrointestinal: PRESENT: constipation, nausea, vomiting Musculoskeletal: PRESENT: back pain, joint swelling Endocrine: ABSENT: cold intolerance, heat intolerance, polydipsia, polyuria Physical Exam Vital Signs: Temp Pulse Resp BP Pulse Ox 98.3 F 71 16 109/64 100 12/09/17 03:51 12/09/17 03:51 12/09/17 03:51 12/09/17 03:51 12/09/17 03:51 Intake & Output 12/08/17 12/09/17 12/10/17 06:59 06:59 06:59 Intake Total 2627 Output Total 300 Balance 2627 -300 Weight 60.7 kg General appearance: PRESENT: no acute distress, well-developed, well-nourished Head exam: PRESENT: atraumatic, normocephalic Eye exam: PRESENT: conjunctiva pink, EOMI, PERRLA. ABSENT: scleral icterus Ear exam: PRESENT: normal external ear exam Mouth exam: PRESENT: moist, tongue midline Neck exam: ABSENT: carotid bruit, JVD, lymphadenopathy, thyromegaly Respiratory exam: PRESENT: clear to auscultation samaria. ABSENT: rales, rhonchi, wheezes Cardiovascular exam: PRESENT: RRR. ABSENT: diastolic murmur, rubs, systolic murmur Pulses: PRESENT: normal dorsalis pedis pul Vascular exam: PRESENT: normal capillary refill GI/Abdominal exam: PRESENT: normal bowel sounds, soft. ABSENT: distended, guarding, mass, organolmegaly, rebound, tenderness Rectal exam: PRESENT: deferred Extremities exam: PRESENT: full ROM. ABSENT: calf tenderness, clubbing, pedal edema Neurological exam: PRESENT: alert, awake, oriented to person, oriented to place , oriented to time, oriented to situation, CN II-XII grossly intact. ABSENT: motor sensory deficit Psychiatric exam: PRESENT: appropriate affect, normal mood. ABSENT: homicidal ideation, suicidal ideation Skin exam: PRESENT: dry, intact, warm. ABSENT: cyanosis, rash Results Laboratory Results: 12/09/17 06:45 12/09/17 06:45 Sodium 141.3 Potassium 3.6 Chloride 110 H Carbon Dioxide 26 Anion Gap 5 BUN 6 L Creatinine 0.56 Est GFR ( Amer) > 60 Est GFR (Non-Af Amer) > 60 Glucose 86 Calcium 8.8 Magnesium 1.8 Assessment & Plan - Diagnosis (1) Vaso-occlusive sickle cell crisis Is this a current diagnosis for this admission?: Yes Plan: Secondary to sickle cell disease, severe pain, increased Dilaudid, added bowel regimen, K pad, antiemetics as well as antipruritics. 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 - Time Time Spent: Greater than 70 Minutes - Inpatient Certification Based on my medical assessment, after consideration of the patient's comorbidities, presenting symptoms, or acuity I expect that the services needed warrant INPATIENT care.: Yes I certify that my determination is in accordance with my understanding of Medicare's requirements for reasonable and necessary INPATIENT services [42 CFR 412.3e].: Yes Medical Necessity: Need For IV Fluids, Need for Pain Control
[2017-12-09 09:08] LABS: HEMATOCRIT 25.8 % (36.0-47.0); MEAN CORPUSCULAR HEMOGLOBIN 32.9 pg (27.0-33.4); MEAN CORPUSCULAR VOLUME 94 fl (80-97); PLATELET COUNT 356 10^3/uL (150-450); RED BLOOD COUNT 2.75 10^6/uL (3.72-5.28); WHITE BLOOD COUNT 12.3 10^3/uL (4.0-10.5)
[2017-12-09 09:12] LABS: ABSOLUTE LYMPHOCYTES# (MANUAL) 4.9 10^3/uL (0.5-4.7); ABSOLUTE MONOCYTES # (MANUAL) 0.7 10^3/uL (0.1-1.4); ABSOLUTE NEUTROPHILS# (MANUAL) 4.8 10^3/uL (1.7-8.2); EOSINOPHILS % (MANUAL) 11 % (0-6); LYMPHOCYTES % (MANUAL) 40 % (13-45); MONOCYTES % (MANUAL) 6 % (3-13); SEGMENTED NEUTROPHILS % (MAN) 39 % (42-78); TOTAL CELLS COUNTED 100
[2017-12-09 09:15] LABS: BASOPHILS % (MANUAL) 4 % (0-2)
[2017-12-09 09:18] LABS: ACANTHOCYTES SLIGHT; BURR CELLS SLIGHT; PLATELET COMMENT ADEQUATE; PLATELET GIANT PRESENT; PLATELET LARGE PRESENT; POIKILOCYTOSIS 2+; SCHISTOCYTES SLIGHT; TARGET CELLS 1+
[2017-12-09] MEDS ORDERED: HYDROMORPHONE HCL INJ/PF 2 MG/ML AMPULE ONE (11:20)
--- NOTE | 2017-12-09 16:24 | PDOC PROGRESS REPORT ---
Subjective Progress Note for:: 12/09/17 Subjective:: This is 22 years old black female patient who is in no case of severe anemia presented with excruciating extremity pain. 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 Patient is being treated with hydration and hydromorphone for pain control. Reason For Visit: ACUTE SICKLE CELL CRISIS Physical Exam Vital Signs: Temp Pulse Resp BP Pulse Ox 97.5 F 70 16 110/61 100 12/09/17 15:47 12/09/17 15:47 12/09/17 15:47 12/09/17 15:47 12/09/17 15:47 Intake & Output 12/08/17 12/09/17 12/10/17 06:59 06:59 06:59 Intake Total 2627 2100 Output Total 300 Balance 2627 1800 Weight 60.7 kg General appearance: PRESENT: no acute distress, well-developed, well-nourished Head exam: PRESENT: atraumatic, normocephalic Eye exam: PRESENT: conjunctiva pink, EOMI, PERRLA. ABSENT: scleral icterus Ear exam: PRESENT: normal external ear exam Mouth exam: PRESENT: moist, tongue midline Neck exam: ABSENT: carotid bruit, JVD, lymphadenopathy, thyromegaly Respiratory exam: PRESENT: clear to auscultation samaria. ABSENT: rales, rhonchi, wheezes Cardiovascular exam: PRESENT: RRR. ABSENT: diastolic murmur, rubs, systolic murmur Pulses: PRESENT: normal dorsalis pedis pul Vascular exam: PRESENT: normal capillary refill GI/Abdominal exam: PRESENT: normal bowel sounds, soft. ABSENT: distended, guarding, mass, organolmegaly, rebound, tenderness Rectal exam: PRESENT: deferred Extremities exam: PRESENT: full ROM. ABSENT: calf tenderness, clubbing, pedal edema Neurological exam: PRESENT: alert, awake, oriented to person, oriented to place , oriented to time, oriented to situation, CN II-XII grossly intact. ABSENT: motor sensory deficit Psychiatric exam: PRESENT: appropriate affect, normal mood. ABSENT: homicidal ideation, suicidal ideation Skin exam: PRESENT: dry, intact, warm. ABSENT: cyanosis, rash Results Laboratory Results: 12/09/17 06:45 12/09/17 06:45 12/09/17 12/09/17 06:45 06:45 WBC 12.3 H RBC 2.75 L Hgb 9.0 L Hct 25.8 L MCV 94 MCH 32.9 MCHC 35.0 RDW 18.0 H Plt Count 356 Seg Neutrophils % Not Reportable Lymphocytes % Not Reportable Monocytes % Not Reportable Eosinophils % Not Reportable Basophils % Not Reportable Absolute Neutrophils Not Reportable Absolute Lymphocytes Not Reportable Absolute Monocytes Not Reportable Absolute Eosinophils Not Reportable Absolute Basophils Not Reportable Sodium 141.3 Potassium 3.6 Chloride 110 H Carbon Dioxide 26 Anion Gap 5 BUN 6 L Creatinine 0.56 Est GFR ( Amer) > 60 Est GFR (Non-Af Amer) > 60 Glucose 86 Calcium 8.8 Magnesium 1.8 Assessment & Plan - Diagnosis (1) Acute sickle cell crisis Is this a current diagnosis for this admission?: Yes Plan: Continue current regimen
[2017-12-10] MEDS: HYDROMORPHONE HCL INJ/PF 2 MG/ML AMPULE IV PRN ×6 (01:49→21:27)
[2017-12-10] MEDS: NORMAL SALINE 1000 ML 1,000 ML IV PRN ×3 (01:50→21:41)
[2017-12-10] MEDS: DIPHENHYDRAMINE HCL 50 MG/ML VIAL IV SCH ×3 (06:25→18:08)
[2017-12-10] MEDS: HEPARIN SOD (PORCINE) 5,000 UNIT/ML 1 ML SYRINGE SUBCUT SCH ×3 (06:25→21:28)
[2017-12-10 06:54] LABS: HEMATOCRIT 26.2 % (36.0-47.0); HEMOGLOBIN 9.4 g/dL (12.0-15.5); MEAN CORPUSCULAR HEMOGLOBIN 33.5 pg (27.0-33.4); MEAN CORPUSCULAR HGB CONC 35.7 g/dL (32.0-36.0); MEAN CORPUSCULAR VOLUME 94 fl (80-97); PLATELET COUNT 327 10^3/uL (150-450); RED CELL DISTRIBUTION WIDTH 17.7 % (11.5-14.0); WHITE BLOOD COUNT 16.2 10^3/uL (4.0-10.5)
[2017-12-10 07:09] LABS: ANION GAP 6 (5-19); BLOOD UREA NITROGEN 4 mg/dL (7-20); CALCIUM 8.9 mg/dL (8.4-10.2); CARBON DIOXIDE 29 mmol/L (22-30); CHLORIDE 108 mmol/L (98-107); GLUCOSE 85 mg/dL (75-110); POTASSIUM 4.1 mmol/L (3.6-5.0); SODIUM 142.5 mmol/L (137-145)
[2017-12-10 07:54] LABS: ABSOLUTE LYMPHOCYTES# (MANUAL) 4.7 10^3/uL (0.5-4.7); ABSOLUTE MONOCYTES # (MANUAL) 1.1 10^3/uL (0.1-1.4); ABSOLUTE NEUTROPHILS# (MANUAL) 8.7 10^3/uL (1.7-8.2); BASOPHILS % (MANUAL) 2 % (0-2); EOSINOPHILS % (MANUAL) 8 % (0-6); LYMPHOCYTES % (MANUAL) 29 % (13-45); MONOCYTES % (MANUAL) 7 % (3-13); NUCLEATED RED BLOOD CELLS 3 /100 WBC (0); SEGMENTED NEUTROPHILS % (MAN) 54 % (42-78); TOTAL CELLS COUNTED 100; TOXIC GRANULATION SLIGHT; TOXIC VACUOLATION PRESENT
[2017-12-10 07:55] LABS: ANISOCYTOSIS 2+; HYPOCHROMASIA 2+; OVALOCYTES SLIGHT; PLATELET COMMENT ADEQUATE; POIKILOCYTOSIS 2+; POLYCHROMASIA 2+; SCHISTOCYTES 1+; SICKLE RED CELLS SLIGHT
--- NOTE | 2017-12-10 10:13 | PDOC PROGRESS REPORT ---
Subjective Progress Note for:: 12/10/17 Subjective:: Patient still complains of extremity pain and she states that she is not able to go home like this. Reason For Visit: ACUTE SICKLE CELL CRISIS Physical Exam Vital Signs: Temp Pulse Resp BP Pulse Ox 97.8 F 95 18 111/61 100 12/10/17 07:56 12/10/17 08:04 12/10/17 08:04 12/10/17 08:04 12/10/17 08:04 Intake & Output 12/09/17 12/10/17 12/11/17 06:59 06:59 06:59 Intake Total 2627 3580 Output Total 3700 Balance 2627 -120 Weight 60.7 kg 60.9 kg General appearance: PRESENT: no acute distress, well-developed, well-nourished Head exam: PRESENT: atraumatic, normocephalic Eye exam: PRESENT: conjunctiva pink, EOMI, PERRLA. ABSENT: scleral icterus Ear exam: PRESENT: normal external ear exam Mouth exam: PRESENT: moist, tongue midline Neck exam: ABSENT: carotid bruit, JVD, lymphadenopathy, thyromegaly Respiratory exam: PRESENT: clear to auscultation samaria. ABSENT: rales, rhonchi, wheezes Cardiovascular exam: PRESENT: RRR. ABSENT: diastolic murmur, rubs, systolic murmur Pulses: PRESENT: normal dorsalis pedis pul Vascular exam: PRESENT: normal capillary refill GI/Abdominal exam: PRESENT: normal bowel sounds, soft. ABSENT: distended, guarding, mass, organolmegaly, rebound, tenderness Rectal exam: PRESENT: deferred Extremities exam: PRESENT: full ROM. ABSENT: calf tenderness, clubbing, pedal edema Neurological exam: PRESENT: alert, awake, oriented to person, oriented to place , oriented to time, oriented to situation, CN II-XII grossly intact. ABSENT: motor sensory deficit Psychiatric exam: PRESENT: appropriate affect, normal mood. ABSENT: homicidal ideation, suicidal ideation Skin exam: PRESENT: dry, intact, warm. ABSENT: cyanosis, rash Results Laboratory Results: 12/10/17 06:35 12/10/17 06:35 12/10/17 12/10/17 06:35 06:35 WBC 16.2 H RBC 2.80 L Hgb 9.4 L Hct 26.2 L MCV 94 MCH 33.5 H MCHC 35.7 RDW 17.7 H Plt Count 327 Seg Neutrophils % Not Reportable Lymphocytes % Not Reportable Monocytes % Not Reportable Eosinophils % Not Reportable Basophils % Not Reportable Absolute Neutrophils Not Reportable Absolute Lymphocytes Not Reportable Absolute Monocytes Not Reportable Absolute Eosinophils Not Reportable Absolute Basophils Not Reportable Sodium 142.5 Potassium 4.1 Chloride 108 H Carbon Dioxide 29 Anion Gap 6 BUN 4 L Creatinine 0.57 Est GFR ( Amer) > 60 Est GFR (Non-Af Amer) > 60 Glucose 85 Calcium 8.9 Magnesium 1.7 Assessment & Plan - Diagnosis (1) Acute sickle cell crisis Is this a current diagnosis for this admission?: Yes Plan: Continue current regimen (2) DVT (deep venous thrombosis) Is this a current diagnosis for this admission?: Yes Plan: Continue current regimen (3) Anemia Qualifiers: 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
--- NOTE | 2017-12-10 11:57 | Progress Note ---
Provider Note Provider Note: Reviewing chart remotely, hb stable. Discussed her pain w/ nursing staff, she feels pain control appropriate, so no changes right now in pain med dosing. Transfuse if hb 7 or less, make sure to give premeds w/ benedryl and tylenol and give lasix post transfusion. Will be available by phone for any issues.
[2017-12-10 13:44] LABS: PATH REVIEW PATHOLOGIST REVIEWED
[2017-12-11] MEDS: HYDROMORPHONE HCL INJ/PF 2 MG/ML AMPULE IV PRN ×3 (00:34→08:12)
[2017-12-11] MEDS: DIPHENHYDRAMINE HCL 50 MG/ML VIAL IV SCH ×2 (00:34→06:19)
[2017-12-11] MEDS: HEPARIN SOD (PORCINE) 5,000 UNIT/ML 1 ML SYRINGE SUBCUT SCH (06:19)
[2017-12-11 07:13] LABS: ANION GAP 7 (5-19); BLOOD UREA NITROGEN 5 mg/dL (7-20); CALCIUM 9.3 mg/dL (8.4-10.2); CARBON DIOXIDE 28 mmol/L (22-30); CHLORIDE 106 mmol/L (98-107); GLUCOSE 82 mg/dL (75-110); POTASSIUM 3.7 mmol/L (3.6-5.0); SODIUM 140.5 mmol/L (137-145)
[2017-12-11 07:38] LABS: HEMOGLOBIN 9.7 g/dL (12.0-15.5); MEAN CORPUSCULAR HEMOGLOBIN 32.6 pg (27.0-33.4); MEAN CORPUSCULAR HGB CONC 34.7 g/dL (32.0-36.0); MEAN CORPUSCULAR VOLUME 94 fl (80-97); PLATELET COUNT 308 10^3/uL (150-450); RED BLOOD COUNT 2.98 10^6/uL (3.72-5.28); RED CELL DISTRIBUTION WIDTH 18.1 % (11.5-14.0); WHITE BLOOD COUNT 14.1 10^3/uL (4.0-10.5)
[2017-12-11 08:52] LABS: ABSOLUTE LYMPHOCYTES# (MANUAL) 6.1 10^3/uL (0.5-4.7); ABSOLUTE MONOCYTES # (MANUAL) 0.4 10^3/uL (0.1-1.4); ABSOLUTE NEUTROPHILS# (MANUAL) 5.4 10^3/uL (1.7-8.2); BASOPHILS % (MANUAL) 5 % (0-2); EOSINOPHILS % (MANUAL) 11 % (0-6); LYMPHOCYTES % (MANUAL) 35 % (13-45); MONOCYTES % (MANUAL) 3 % (3-13); NUCLEATED RED BLOOD CELLS 7 /100 WBC (0); SEGMENTED NEUTROPHILS % (MAN) 38 % (42-78); TOTAL CELLS COUNTED 100
[2017-12-11 08:59] LABS: PLATELET COMMENT ADEQUATE
[2017-12-11 09:01] LABS: ANISOCYTOSIS SLIGHT; HYPOCHROMASIA SLIGHT; POIKILOCYTOSIS 3+; SICKLE RED CELLS SLIGHT; TARGET CELLS 3+
[2017-12-11] MEDS: NORMAL SALINE 1000 ML 1,000 ML IV PRN (09:12)
[2017-12-11 11:01] VITALS: BP 110/58
--- NOTE | 2018-02-03 12:29 | PDOC DISCHARGE SUMMARY ---
General - Admit/Disc Date/PCP Admission Date/Primary Care Provider: 12/08/17 10:38 JOIE MOREIRA MD Discharge Date: 02/03/18 - Discharge Diagnosis (1) Acute sickle cell crisis Is this a current diagnosis for this admission?: Yes (2) DVT (deep venous thrombosis) Is this a current diagnosis for this admission?: Yes (3) Anemia Is this a current diagnosis for this admission?: Yes - Additional Information Resuscitation Status: Full Code Home Medications: Folic Acid 0.4 mg PO DAILY #14 tablet 12/18/17 Folic Acid 20 mg PO DAILY #10 capsule 12/18/17 History of Present Illness History of Present Illness: CASSANDRA MIDDLETON is a 22 year old female who presented to the emergency room at the recommendation of her veneer department manager who has been following her for sickle cell disease. She developed acute severe pain in her right lower extremity starting in her mid thigh on the medial aspect. The pain then is noted to involve the entire leg from the lower portion of the thigh through the knee and calf down to the ankle. She describes the pain as an unbearably sharp and constant without radiation. She notes that she has had numerous similar episodes in the past with her sickle cell crises. She further acknowledges that she has some slightly less severe pain in bilateral lumbar area which is also usually present with her sickle cell crises. She denies nausea, vomiting, diarrhea, abdominal pain, dysuria, urinary urgency or frequency, hematuria, pharyngitis, headache, cough, chest pain, palpitations, syncope and rash. She is not identified any aggravating or ameliorating factors for her sickle cell crises. She relates that she has had 6 or 8 of these in the last year and has had a port placed in her right chest for IV access because of the limited numbers of IV sites that she had remaining. She states that she usually receives Dilaudid for her pain control and that she also usually receives Benadryl because the Dilaudid tends to make her itch. Hospital Course Hospital Course: This is 22 years old black female patient who is in no case of severe anemia presented with excruciating extremity pain. Patient referred to ED for admission per her primary veneer department manager. Patient is being treated with hydration and hydromorphone for pain control. I seen patient this morning resting in bed comfortably and she reports her pain is well controlled. Patient 1 to be discharged and her sister is going to pick her up. She is advised to continue her home medication including her Xarelto for DVT. And she will have follow-up with her primary oncologist. Physical Exam Vital Signs: Temp Pulse Resp BP Pulse Ox 98.6 F 88 18 116/53 L 100 12/11/17 05:31 12/11/17 05:31 12/11/17 05:31 12/11/17 05:31 12/11/17 05:31 Intake & Output 12/10/17 12/11/17 12/12/17 06:59 06:59 06:59 Intake Total 3580 2947 1000 Output Total 3700 3950 Balance -120 -1003 1000 Weight 60.9 kg 61.7 kg General appearance: PRESENT: no acute distress, well-developed, well-nourished Head exam: PRESENT: atraumatic, normocephalic Eye exam: PRESENT: conjunctiva pink, EOMI, PERRLA. ABSENT: scleral icterus Ear exam: PRESENT: normal external ear exam Mouth exam: PRESENT: moist, tongue midline Neck exam: ABSENT: carotid bruit, JVD, lymphadenopathy, thyromegaly Respiratory exam: PRESENT: clear to auscultation samaria. ABSENT: rales, rhonchi, wheezes Cardiovascular exam: PRESENT: RRR. ABSENT: diastolic murmur, rubs, systolic murmur Pulses: PRESENT: normal dorsalis pedis pul Vascular exam: PRESENT: normal capillary refill GI/Abdominal exam: PRESENT: normal bowel sounds, soft. ABSENT: distended, guarding, mass, organolmegaly, rebound, tenderness Rectal exam: PRESENT: deferred Extremities exam: PRESENT: full ROM. ABSENT: calf tenderness, clubbing, pedal edema Neurological exam: PRESENT: alert, awake, oriented to person, oriented to place , oriented to time, oriented to situation, CN II-XII grossly intact. ABSENT: motor sensory deficit Psychiatric exam: PRESENT: appropriate affect, normal mood. ABSENT: homicidal ideation, suicidal ideation Skin exam: PRESENT: dry, intact, warm. ABSENT: cyanosis, rash Results Laboratory Results: 12/11/17 06:36 12/11/17 06:36 12/11/17 12/11/17 06:36 06:36 WBC 14.1 H RBC 2.98 L Hgb 9.7 L Hct 28.0 L MCV 94 MCH 32.6 MCHC 34.7 RDW 18.1 H Plt Count 308 Seg Neutrophils % Not Reportable Lymphocytes % Not Reportable Monocytes % Not Reportable Eosinophils % Not Reportable Basophils % Not Reportable Absolute Neutrophils Not Reportable Absolute Lymphocytes Not Reportable Absolute Monocytes Not Reportable Absolute Eosinophils Not Reportable Absolute Basophils Not Reportable Sodium 140.5 Potassium 3.7 Chloride 106 Carbon Dioxide 28 Anion Gap 7 BUN 5 L Creatinine 0.57 Est GFR ( Amer) > 60 Est GFR (Non-Af Amer) > 60 Glucose 82 Calcium 9.3 Magnesium 1.7 Qualifiers - * PATIENT BEING DISCHARGED WITH ANY OF THE FOLLOWING DIAGNOSIS: No
== END 2017-12-11 11:45 | disposition home or self-care (01) | DRG 812 ==
LOC: ER 08:46 → EH 10:38 → 2S 19:30
PROVIDERS: ADMIT Internal Medicine; ATTEND Internal Medicine
DX: D57.00 Hb-SS disease with crisis, unspecified (principal); I82.409 Acute embolism and thrombosis of unspecified deep veins of unspecified lower extremity; F32.9 Major depressive disorder, single episode, unspecified; M54.5 Low back pain; F41.9 Anxiety disorder, unspecified; Z90.49 Acquired absence of other specified parts of digestive tract; Z87.891 Personal history of nicotine dependence; Z79.899 Other long term (current) drug therapy; Z88.6 Allergy status to analgesic agent; Z91.018 Allergy to other foods; Z82.5 Family history of asthma and other chronic lower respiratory diseases; Z83.2 Family history of diseases of the blood and blood-forming organs and certain disorders involving the immune mechanism
CPT/HCPCS: 36415; 36591; 80048; 83735; 84443; 85025; 85045; 96361; 96374; 96375; 99284; J1170; J1200; J1642; J1644; J2550; J7030

== ENCOUNTER 2017-12-12 23:25 | Inpatient (IN) | payer MEDICAID ==
[2017-12-12] MEDS ORDERED: ONDANSETRON HCL INJ/PF 4 MG/2 ML SDV IV ONE (23:49)
[2017-12-12] MEDS ORDERED: NORMAL SALINE 1000 ML 1,000 ML IV ONE (23:49)
[2017-12-12] MEDS ORDERED: HYDROMORPHONE HCL INJ/PF 2 MG/ML AMPULE IV ONE (23:49)
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
--- NOTE | 2017-12-13 00:36 | RADIOLOGY REPORT (SQ) ---
XR CHEST 1 VIEW HISTORY: sickle cell chest pain. COMPARISON: 11/15/2017 FINDINGS/IMPRESSION: Stable right central venous catheter. Normal cardiomediastinal silhouette. Pulmonary vasculature is unremarkable. Lungs are clear. No pleural effusion or pneumothorax is seen. No acute osseous findings.
[2017-12-13] MEDS ORDERED: HYDROMORPHONE HCL INJ/PF 2 MG/ML AMPULE IV ONE ×3 (00:37→03:04)
[2017-12-13 00:54] LABS: ABSOLUTE RETICS # 0.228 10^6/uL (0.028-0.122); HEMATOCRIT 26.5 % (36.0-47.0); HEMOGLOBIN 9.5 g/dL (12.0-15.5); MEAN CORPUSCULAR HEMOGLOBIN 33.6 pg (27.0-33.4); MEAN CORPUSCULAR VOLUME 93 fl (80-97); PLATELET COUNT 386 10^3/uL (150-450); RED BLOOD COUNT 2.84 10^6/uL (3.72-5.28); RED CELL DISTRIBUTION WIDTH 18.9 % (11.5-14.0); RETICULOCYTE COUNT (AUTO) 8.03 % (0.66-2.85)
[2017-12-13 01:00] LABS: ABSOLUTE MONOCYTES # (MANUAL) 0.6 10^3/uL (0.1-1.4); BASOPHILS % (MANUAL) 1 % (0-2); EOSINOPHILS % (MANUAL) 5 % (0-6); LYMPHOCYTES % (MANUAL) 32 % (13-45); MONOCYTES % (MANUAL) 4 % (3-13); NUCLEATED RED BLOOD CELLS 14 /100 WBC (0); SEGMENTED NEUTROPHILS % (MAN) 58 % (42-78); TOTAL CELLS COUNTED 100
[2017-12-13] MEDS ORDERED: DIPHENHYDRAMINE HCL 50 MG/ML VIAL IV ONE (01:06)
[2017-12-13 01:09] LABS: TOXIC GRANULATION SLIGHT
[2017-12-13 01:10] LABS: ANISOCYTOSIS 1+; BURR CELLS 2+; PLATELET COMMENT ADEQUATE; POLYCHROMASIA 2+; TARGET CELLS 3+
[2017-12-13 01:11] LABS: WHITE BLOOD COUNT 13.6 10^3/uL (4.0-10.5)
[2017-12-13 01:23] LABS: ALANINE AMINOTRANSFERASE 137 U/L (9-52); ALBUMIN 4.1 g/dL (3.5-5.0); ALKALINE PHOSPHATASE 106 U/L (38-126); ANION GAP 7 (5-19); ASPARTATE AMINO TRANSFERASE 175 U/L (14-36); BILIRUBIN,DIRECT 1.1 mg/dL (0.0-0.4); BILIRUBIN,TOTAL 4.5 mg/dL (0.2-1.3); BLOOD UREA NITROGEN 9 mg/dL (7-20); CALCIUM 9.6 mg/dL (8.4-10.2); CARBON DIOXIDE 27 mmol/L (22-30); CHLORIDE 107 mmol/L (98-107); GLUCOSE 95 mg/dL (75-110); SODIUM 140.6 mmol/L (137-145); TOTAL PROTEIN 7.4 g/dL (6.3-8.2)
[2017-12-13] MEDS ORDERED: MAGNESIUM HYDROXIDE SUSP 30 ML UDCUP PO PRN (04:16)
[2017-12-13] MEDS ORDERED: ACETAMINOPHEN 325 MG TABLET PO PRN (04:16)
[2017-12-13] MEDS ORDERED: IPRATROPIUM/ALBUTEROL 0.5-2.5 MG/3 ML AMPUL NEB PRN (04:16)
[2017-12-13] MEDS ORDERED: MAG HYDROX/AL HYDROX/SIMETH SUSP 30 ML UDCUP PO PRN (04:16)
[2017-12-13] MEDS: HEPARIN SOD (PORCINE) 5,000 UNIT/ML 1 ML SYRINGE SUBCUT SCH ×3 (05:13→21:30)
[2017-12-13] MEDS: NORMAL SALINE 1000 ML 1,000 ML IV PRN ×2 (05:14→14:32)
--- NOTE | 2017-12-13 05:46 | PDOC H&P ---
History of Present Illness Admission Date/PCP: 12/13/17 04:28 JOIE MOREIRA MD Patient complains of: Shoulder and chest pain History of Present Illness: CASSANDRA MIDDLETON is a 22 year old female With a past medical history of poorly controlled sickle cell disease with frequent exacerbation requiring hospitalization, Dilaudid dependent chronic pain, tobacco dependence and noncompliance. Patient presents with 8 hours of chest and shoulder pain indicative of previous exacerbations of sickle cell pain in the emergency room she is has an unremarkable chest x-ray, but notably elevated reticulocyte count with baseline hemoglobin. Patient denies acute illness and otherwise had been feeling well however under exceptional social stress given [place]. She started on IV Dilaudid, refusing oxygen and referred to the hospitalist for admission Past Medical History Cardiac Medical History: Reports: DVT - RUE s/p port placement Pulmonary Medical History: Reports: Asthma, Bronchitis - once in past per patient, Pneumonia - 2014 Endocrine Medical History: Denies: Diabetes Mellitus Type 1, Diabetes Mellitus Type 2 Psychiatric Medical History: Reports: Depression Hematology: Reports: Anemia, Sickle Cell Disease Denies: Bleeding Tendencies Past Surgical History Past Surgical History: Reports: Cholecystectomy - 06/28/2015, Vascular Surgery - port put in December,, Other - Port-A-Cath in right upper chest Social History Information Source: Patient Smoking Status: Never Smoker Frequency of Alcohol Use: None Hx Recreational Drug Use: No Drugs: None Hx Prescription Drug Abuse: No - Advance Directive Resuscitation Status: Full Code Family History Family History: CAD, Other - Sickle cell disease and sickle cell trait, asthma Parental Family History Reviewed: Yes Children Family History Reviewed: Yes Sibling(s) Family History Reviewed.: Yes Medication/Allergy Home Medications: Aripiprazole [Abilify 15 mg Tablet] 10 mg PO QHS 11/15/17 Escitalopram Oxalate [Lexapro] 10 mg PO QHS 11/15/17 Rivaroxaban [Xarelto] 20 mg PO WSUPPER 11/15/17 Zolpidem Tartrate [Ambien] 10 mg PO QHS 11/15/17 Allergies/Adverse Reactions: morphine Allergy (Severe, Verified 12/08/17 08:48) RASH,SWELLING jacob peppers Adverse Reaction (Severe, Uncoded 12/08/17 08:48) throat closes Review of Systems Constitutional: ABSENT: chills, fever(s), headache(s), weight gain, weight loss Eyes: ABSENT: visual disturbances Ears: ABSENT: hearing changes Cardiovascular: ABSENT: chest pain, dyspnea on exertion, edema, orthropnea, palpitations Respiratory: ABSENT: cough, hemoptysis Gastrointestinal: ABSENT: abdominal pain, constipation, diarrhea, hematemesis, hematochezia, nausea, vomiting Genitourinary: ABSENT: dysuria, hematuria Musculoskeletal: ABSENT: joint swelling Integumentary: ABSENT: rash, wounds Neurological: ABSENT: abnormal gait, abnormal speech, confusion, dizziness, focal weakness, syncope Psychiatric: ABSENT: anxiety, depression, homidical ideation, suicidal ideation Endocrine: ABSENT: cold intolerance, heat intolerance, polydipsia, polyuria Hematologic/Lymphatic: ABSENT: easy bleeding, easy bruising Physical Exam Vital Signs: Temp Pulse Resp BP Pulse Ox 98.2 F 87 15 104/62 100 12/12/17 23:26 12/12/17 23:26 12/13/17 02:01 12/13/17 02:01 12/13/17 02:01 General appearance: PRESENT: cooperative, mild distress. ABSENT: disheveled Head exam: PRESENT: atraumatic, normocephalic Eye exam: PRESENT: conjunctiva pink, EOMI, PERRLA. ABSENT: scleral icterus Ear exam: PRESENT: normal external ear exam Mouth exam: PRESENT: moist, tongue midline Neck exam: ABSENT: carotid bruit, JVD, lymphadenopathy, thyromegaly Respiratory exam: PRESENT: clear to auscultation samaria. ABSENT: rales, rhonchi, wheezes Cardiovascular exam: PRESENT: RRR, +S1, +S2, tachycardia. ABSENT: gallop Pulses: PRESENT: normal dorsalis pedis pul Vascular exam: PRESENT: normal capillary refill GI/Abdominal exam: PRESENT: normal bowel sounds, soft. ABSENT: distended, guarding, mass, organolmegaly, rebound, tenderness Rectal exam: PRESENT: deferred Extremities exam: PRESENT: full ROM. ABSENT: calf tenderness, clubbing, pedal edema Neurological exam: PRESENT: alert, awake, oriented to person, oriented to place , oriented to time, oriented to situation, CN II-XII grossly intact. ABSENT: motor sensory deficit Psychiatric exam: PRESENT: agitated, anxious Skin exam: PRESENT: dry, intact, warm. ABSENT: cyanosis, rash Results Impressions: Chest X-Ray 12/12/17 23:46 FINDINGS/IMPRESSION: Stable right central venous catheter. Normal cardiomediastinal silhouette. Pulmonary vasculature is unremarkable. Lungs are clear. No pleural effusion or pneumothorax is seen. No acute osseous findings. Assessment & Plan - Diagnosis (1) Acute sickle cell crisis Is this a current diagnosis for this admission?: Yes Plan: Telemetry, hydration, oxygen, hydroxyurea and symptomatic management (2) Anemia Qualifiers: Is this a current diagnosis for this admission?: Yes Plan: Baseline hemoglobin, follow-up CBC (3) DVT (deep venous thrombosis) Is this a current diagnosis for this admission?: Yes Plan: Continue outpatient regiment - Time Time Spent: 30 to 50 Minutes - Inpatient Certification Medical Necessity: Need Close Monitoring Due to Risk of Patient Decompensation
[2017-12-13] MEDS: HYDROMORPHONE HCL 2 MG TABLET PO PRN ×5 (06:53→20:36)
[2017-12-13] MEDS: IPRATROPIUM/ALBUTEROL 0.5-2.5 MG/3 ML AMPUL NEB SCH ×2 (09:04→16:45)
[2017-12-13] MEDS: HYDROXYUREA 500 MG CAPSULE PO SCH (10:31)
[2017-12-13] MEDS: DOCUSATE SODIUM 100 MG CAPSULE PO SCH ×2 (10:31→17:27)
[2017-12-13] MEDS: RIVAROXABAN 10 MG TABLET PO SCH (17:26)
[2017-12-13 19:21] LABS: URINE AMPHETAMINES SCREEN NEGATIVE; URINE BARBITURATES SCREEN NEGATIVE; URINE BENZODIAZEPINES SCREEN NEGATIVE; URINE COCAINE SCREEN NEGATIVE; URINE MARIJUANA (THC) SCREEN NEGATIVE; URINE METHADONE SCREEN NEGATIVE; URINE PHENCYCLIDINE SCREEN NEGATIVE
[2017-12-13] MEDS: DIPHENHYDRAMINE HCL 50 MG CAPSULE PO PRN (20:40)
--- NOTE | 2017-12-13 21:13 | EKG REPORT ---
SEVERITY:- NORMAL ECG - SINUS RHYTHM : Confirmed by: Nathan Lopez 13-Dec-2017 21:11:51
[2017-12-13] MEDS: ARIPIPRAZOLE 5 MG TABLET PO SCH (21:30)
[2017-12-13] MEDS: ZOLPIDEM TARTRATE 5 MG TABLET PO SCH (21:30)
[2017-12-13] MEDS: ESCITALOPRAM OXALATE 10 MG TABLET PO SCH (21:30)
[2017-12-14] MEDS: IPRATROPIUM/ALBUTEROL 0.5-2.5 MG/3 ML AMPUL NEB SCH ×3 (00:03→17:21)
[2017-12-14] MEDS: HYDROMORPHONE HCL 2 MG TABLET PO PRN ×7 (01:03→20:53)
[2017-12-14] MEDS: DIPHENHYDRAMINE HCL 50 MG CAPSULE PO PRN ×3 (04:08→17:51)
[2017-12-14] MEDS: HEPARIN SOD (PORCINE) 5,000 UNIT/ML 1 ML SYRINGE SUBCUT SCH ×3 (05:39→22:12)
[2017-12-14 06:25] LABS: HEMATOCRIT 26.1 % (36.0-47.0); HEMOGLOBIN 9.2 g/dL (12.0-15.5); MEAN CORPUSCULAR HEMOGLOBIN 33.4 pg (27.0-33.4); MEAN CORPUSCULAR HGB CONC 35.2 g/dL (32.0-36.0); MEAN CORPUSCULAR VOLUME 95 fl (80-97); PLATELET COUNT 411 10^3/uL (150-450); RED BLOOD COUNT 2.75 10^6/uL (3.72-5.28); RED CELL DISTRIBUTION WIDTH 19.4 % (11.5-14.0); WHITE BLOOD COUNT 13.5 10^3/uL (4.0-10.5)
[2017-12-14 06:38] LABS: ALANINE AMINOTRANSFERASE 141 U/L (9-52); ALBUMIN 3.5 g/dL (3.5-5.0); ALKALINE PHOSPHATASE 102 U/L (38-126); ANION GAP 7 (5-19); ASPARTATE AMINO TRANSFERASE 122 U/L (14-36); BILIRUBIN,DIRECT 0.7 mg/dL (0.0-0.4); BLOOD UREA NITROGEN 8 mg/dL (7-20); CARBON DIOXIDE 27 mmol/L (22-30); CHLORIDE 107 mmol/L (98-107); GLUCOSE 94 mg/dL (75-110); POTASSIUM 3.9 mmol/L (3.6-5.0); SODIUM 141.3 mmol/L (137-145); TOTAL PROTEIN 6.8 g/dL (6.3-8.2)
[2017-12-14 07:37] LABS: ABSOLUTE LYMPHOCYTES# (MANUAL) 3.4 10^3/uL (0.5-4.7); ABSOLUTE MONOCYTES # (MANUAL) 1.5 10^3/uL (0.1-1.4); ABSOLUTE NEUTROPHILS# (MANUAL) 6.5 10^3/uL (1.7-8.2); BASOPHILS % (MANUAL) 2 % (0-2); EOSINOPHILS % (MANUAL) 14 % (0-6); LYMPHOCYTES % (MANUAL) 25 % (13-45); MONOCYTES % (MANUAL) 11 % (3-13); NUCLEATED RED BLOOD CELLS 6 /100 WBC (0); SEGMENTED NEUTROPHILS % (MAN) 48 % (42-78); TOTAL CELLS COUNTED 100
[2017-12-14 07:40] LABS: ANISOCYTOSIS 2+; POLYCHROMASIA 1+; TARGET CELLS 2+
[2017-12-14 07:41] LABS: PLATELET COMMENT ADEQUATE; SICKLE RED CELLS 1+
[2017-12-14] MEDS: HYDROXYUREA 500 MG CAPSULE PO SCH (10:04)
[2017-12-14] MEDS: DOCUSATE SODIUM 100 MG CAPSULE PO SCH ×2 (10:04→17:51)
--- NOTE | 2017-12-14 12:45 | PDOC PROGRESS REPORT ---
Subjective Progress Note for:: 12/14/17 Subjective:: This is a 22 years old black female patient with history of sickle cell disease who is discharged about 3 days ago and she came back with chief complaint of chest and shoulder pain of 8 hours duration. Patient has history of recurrent admission for the same complaint in the past. Reason For Visit: SS PAIN CRISIS Physical Exam Vital Signs: Temp Pulse Resp BP Pulse Ox 98.5 F 85 16 103/43 L 100 12/14/17 11:06 12/14/17 11:06 12/14/17 11:06 12/14/17 11:06 12/14/17 11:06 Intake & Output 12/13/17 12/14/17 12/15/17 06:59 06:59 06:59 Intake Total 2222 Balance 2222 Weight 63 kg General appearance: PRESENT: no acute distress, well-developed, well-nourished Head exam: PRESENT: atraumatic, normocephalic Eye exam: PRESENT: conjunctiva pink, EOMI, PERRLA. ABSENT: scleral icterus Ear exam: PRESENT: normal external ear exam Mouth exam: PRESENT: moist, tongue midline Neck exam: ABSENT: carotid bruit, JVD, lymphadenopathy, thyromegaly Respiratory exam: PRESENT: clear to auscultation samaria. ABSENT: rales, rhonchi, wheezes Cardiovascular exam: PRESENT: RRR. ABSENT: diastolic murmur, rubs, systolic murmur Pulses: PRESENT: normal dorsalis pedis pul Vascular exam: PRESENT: normal capillary refill GI/Abdominal exam: PRESENT: normal bowel sounds, soft. ABSENT: distended, guarding, mass, organolmegaly, rebound, tenderness Rectal exam: PRESENT: deferred Extremities exam: PRESENT: full ROM. ABSENT: calf tenderness, clubbing, pedal edema Neurological exam: PRESENT: alert, awake, oriented to person, oriented to place , oriented to time, oriented to situation, CN II-XII grossly intact. ABSENT: motor sensory deficit Psychiatric exam: PRESENT: appropriate affect, normal mood. ABSENT: homicidal ideation, suicidal ideation Skin exam: PRESENT: dry, intact, warm. ABSENT: cyanosis, rash Results Laboratory Results: 12/14/17 05:48 12/14/17 05:48 12/14/17 12/14/17 05:48 05:48 WBC 13.5 H RBC 2.75 L Hgb 9.2 L Hct 26.1 L MCV 95 MCH 33.4 MCHC 35.2 RDW 19.4 H Plt Count 411 Seg Neutrophils % Not Reportable Lymphocytes % Not Reportable Monocytes % Not Reportable Eosinophils % Not Reportable Basophils % Not Reportable Absolute Neutrophils Not Reportable Absolute Lymphocytes Not Reportable Absolute Monocytes Not Reportable Absolute Eosinophils Not Reportable Absolute Basophils Not Reportable Sodium 141.3 Potassium 3.9 Chloride 107 Carbon Dioxide 27 Anion Gap 7 BUN 8 Creatinine 0.58 Est GFR ( Amer) > 60 Est GFR (Non-Af Amer) > 60 Glucose 94 Calcium 9.0 Total Bilirubin 3.0 H AST 122 H ALT 141 H Alkaline Phosphatase 102 Total Protein 6.8 Albumin 3.5 Impressions: Chest X-Ray 12/12/17 23:46 FINDINGS/IMPRESSION: Stable right central venous catheter. Normal cardiomediastinal silhouette. Pulmonary vasculature is unremarkable. Lungs are clear. No pleural effusion or pneumothorax is seen. No acute osseous findings. Assessment & Plan - Diagnosis (1) Acute sickle cell crisis Is this a current diagnosis for this admission?: Yes Plan: Continue current regimen. (2) History of DVT (deep vein thrombosis) Is this a current diagnosis for this admission?: Yes (3) Anemia Qualifiers: Hemolytic anemia type: other hemoglobinopathy Is this a current diagnosis for this admission?: Yes Plan: Her hemoglobin and hematocrit is stable at 9.
[2017-12-14] MEDS: RIVAROXABAN 10 MG TABLET PO SCH (17:51)
[2017-12-14] MEDS: ARIPIPRAZOLE 5 MG TABLET PO SCH (22:12)
[2017-12-14] MEDS: ZOLPIDEM TARTRATE 5 MG TABLET PO SCH (22:13)
[2017-12-14] MEDS: ESCITALOPRAM OXALATE 10 MG TABLET PO SCH (22:20)
[2017-12-15] MEDS: DIPHENHYDRAMINE HCL 50 MG CAPSULE PO PRN ×2 (00:25→09:48)
[2017-12-15] MEDS: HYDROMORPHONE HCL 2 MG TABLET PO PRN ×3 (00:26→09:48)
[2017-12-15] MEDS: IPRATROPIUM/ALBUTEROL 0.5-2.5 MG/3 ML AMPUL NEB SCH ×2 (01:05→08:20)
[2017-12-15] MEDS: HEPARIN SOD (PORCINE) 5,000 UNIT/ML 1 ML SYRINGE SUBCUT SCH ×2 (05:51→13:41)
[2017-12-15 07:45] LABS: HEMATOCRIT 27.1 % (36.0-47.0); HEMOGLOBIN 9.8 g/dL (12.0-15.5); MEAN CORPUSCULAR HEMOGLOBIN 34.5 pg (27.0-33.4); MEAN CORPUSCULAR HGB CONC 36.1 g/dL (32.0-36.0); MEAN CORPUSCULAR VOLUME 96 fl (80-97); PLATELET COUNT 383 10^3/uL (150-450); RED BLOOD COUNT 2.84 10^6/uL (3.72-5.28); RED CELL DISTRIBUTION WIDTH 19.4 % (11.5-14.0); WHITE BLOOD COUNT 12.8 10^3/uL (4.0-10.5)
[2017-12-15 08:05] LABS: ABSOLUTE LYMPHOCYTES# (MANUAL) 4.4 10^3/uL (0.5-4.7); ABSOLUTE MONOCYTES # (MANUAL) 1.3 10^3/uL (0.1-1.4); ABSOLUTE NEUTROPHILS# (MANUAL) 5.4 10^3/uL (1.7-8.2); BASOPHILS % (MANUAL) 0 % (0-2); EOSINOPHILS % (MANUAL) 14 % (0-6); LYMPHOCYTES % (MANUAL) 34 % (13-45); MONOCYTES % (MANUAL) 10 % (3-13); NUCLEATED RED BLOOD CELLS 6 /100 WBC (0); SEGMENTED NEUTROPHILS % (MAN) 42 % (42-78); TOTAL CELLS COUNTED 100
[2017-12-15 08:09] LABS: ANISOCYTOSIS 2+; POLYCHROMASIA 1+
[2017-12-15 08:10] LABS: PAPPENHEIMER BODIES PRESENT; PLATELET COMMENT ADEQUATE; SICKLE RED CELLS 1+; TARGET CELLS 2+
[2017-12-15] MEDS: HYDROXYUREA 500 MG CAPSULE PO SCH (09:47)
[2017-12-15] MEDS: DOCUSATE SODIUM 100 MG CAPSULE PO SCH (09:47)
--- NOTE | 2017-12-15 13:02 | PDOC DISCHARGE SUMMARY ---
General - Admit/Disc Date/PCP Admission Date/Primary Care Provider: 12/13/17 04:28 JOIE MOREIRA MD Discharge Date: 12/15/17 - Discharge Diagnosis (1) Acute sickle cell crisis Is this a current diagnosis for this admission?: Yes (2) History of DVT (deep vein thrombosis) Is this a current diagnosis for this admission?: Yes (3) Anemia Is this a current diagnosis for this admission?: Yes - Additional Information Resuscitation Status: Full Code Home Medications: No Home Medications 12/14/17 History of Present Illness History of Present Illness: CASSANDRA MIDDLETON is a 22 year old female Hospital Course Hospital Course: This is a 22 years old black female patient with history of sickle cell disease who is discharged about 3 days ago and she came back with chief complaint of chest and shoulder pain of 8 hours duration. Patient has history of recurrent admission for the same complaint in the past. Her pain has been controlled well. Her vital signs blood works are within normal limits. Agent requested discharge today. And she is stable enough to be discharged. She needs follow- up with her primary applications developer Dr. Moreira. Physical Exam Vital Signs: Temp Pulse Resp BP Pulse Ox 98.5 F 84 16 99/47 L 99 12/15/17 11:31 12/15/17 11:31 12/15/17 11:31 12/15/17 11:31 12/15/17 11:31 Intake & Output 12/14/17 12/15/17 12/16/17 06:59 06:59 06:59 Intake Total 2222 1050 222 Balance 2222 1050 222 Weight 63 kg 65.5 kg General appearance: PRESENT: no acute distress, well-developed, well-nourished Head exam: PRESENT: atraumatic, normocephalic Eye exam: PRESENT: conjunctiva pink, EOMI, PERRLA. ABSENT: scleral icterus Ear exam: PRESENT: normal external ear exam Mouth exam: PRESENT: moist, tongue midline Neck exam: ABSENT: carotid bruit, JVD, lymphadenopathy, thyromegaly Respiratory exam: PRESENT: clear to auscultation samaria. ABSENT: rales, rhonchi, wheezes Cardiovascular exam: PRESENT: RRR. ABSENT: diastolic murmur, rubs, systolic murmur Pulses: PRESENT: normal dorsalis pedis pul Vascular exam: PRESENT: normal capillary refill GI/Abdominal exam: PRESENT: normal bowel sounds, soft. ABSENT: distended, guarding, mass, organolmegaly, rebound, tenderness Rectal exam: PRESENT: deferred Extremities exam: PRESENT: full ROM. ABSENT: calf tenderness, clubbing, pedal edema Neurological exam: PRESENT: alert, awake, oriented to person, oriented to place , oriented to time, oriented to situation, CN II-XII grossly intact. ABSENT: motor sensory deficit Psychiatric exam: PRESENT: appropriate affect, normal mood. ABSENT: homicidal ideation, suicidal ideation Skin exam: PRESENT: dry, intact, warm. ABSENT: cyanosis, rash Results Laboratory Results: 12/15/17 05:56 12/14/17 05:48 12/15/17 05:56 WBC 12.8 H RBC 2.84 L Hgb 9.8 L Hct 27.1 L MCV 96 MCH 34.5 H MCHC 36.1 H RDW 19.4 H Plt Count 383 Seg Neutrophils % Not Reportable Lymphocytes % Not Reportable Monocytes % Not Reportable Eosinophils % Not Reportable Basophils % Not Reportable Absolute Neutrophils Not Reportable Absolute Lymphocytes Not Reportable Absolute Monocytes Not Reportable Absolute Eosinophils Not Reportable Absolute Basophils Not Reportable Impressions: Chest X-Ray 12/12/17 23:46 FINDINGS/IMPRESSION: Stable right central venous catheter. Normal cardiomediastinal silhouette. Pulmonary vasculature is unremarkable. Lungs are clear. No pleural effusion or pneumothorax is seen. No acute osseous findings. Qualifiers - * PATIENT BEING DISCHARGED WITH ANY OF THE FOLLOWING DIAGNOSIS: No
[2017-12-15 13:47] VITALS: BP 109/49
== END 2017-12-15 13:48 | disposition home or self-care (01) | DRG 812 ==
LOC: ER 23:25 → OBSVTOIN 12-13 04:28 → EH 12-13 04:28 → 4S 12-13 17:03
PROVIDERS: ADMIT Internal Medicine; ATTEND Internal Medicine
DX: D57.01 Hb-SS disease with acute chest syndrome (principal); F11.20 Opioid dependence, uncomplicated; J45.909 Unspecified asthma, uncomplicated; F41.8 Other specified anxiety disorders; F17.210 Nicotine dependence, cigarettes, uncomplicated; Z86.718 Personal history of other venous thrombosis and embolism; Z91.19 Patient's noncompliance with other medical treatment and regimen
CPT/HCPCS: 36415; 36591; 71045; 80053; 80307; 83690; 84484; 85025; 85045; 93005; 93010; 94640; 96361; 96372; 96374; 96375; 96376; 99285; J1170; J1200; J1644; J2405; J7620

== ENCOUNTER 2017-12-16 21:46 | Emergency (ER) | payer MEDICAID ==
--- NOTE | 2017-12-16 23:24 | ER Document Report ---
ED Medical Screen (RME) - General Chief Complaint: Sickle Cell Crisis Stated Complaint: LOWER BACK PAIN Time Seen by Provider: 12/16/17 23:23 Mode of Arrival: Wheelchair Information source: Patient Notes: 22-year-old female presents to ED for complaint of sickle cell pain in her lower back and since she has been here in her legs. She states that it started about 7 hours ago. She states she has also been nausea and vomiting. She came to the emergency room about 930. She requested that her port be accessed for her labs and she does not like to be stuck as they have a hard time drawing her blood from anywhere but her port. I have greeted and performed a rapid initial assessment of this patient. A comprehensive ED assessment and evaluation of the patient, analysis of test results and completion of medical decision making process will be conducted by an additional ED providers. TRAVEL OUTSIDE OF THE [place] IN LAST 30 DAYS: No - Related Data Allergies/Adverse Reactions: morphine Allergy (Severe, Verified 12/08/17 08:48) RASH,SWELLING jacob peppers Adverse Reaction (Severe, Uncoded 12/08/17 08:48) throat closes Past Medical History - Social History Family history: Reviewed & Not Pertinent, Other - Pt was adopted. Does not know family history - Past Medical History Cardiac Medical History: Reports: Hx DVT - RUE s/p port placement Pulmonary Medical History: Reports: Hx Asthma, Hx Bronchitis - once in past per patient, Hx Pneumonia - 2014 Endocrine Medical History: Denies: Hx Diabetes Mellitus Type 1, Hx Diabetes Mellitus Type 2 Renal/ Medical History: Denies: Hx Peritoneal Dialysis Musculoskeltal Medical History: Reports Hx Musculoskeletal Trauma Psychiatric Medical History: Reports: Hx Anxiety, Hx Depression Past Surgical History: Reports: Hx Cholecystectomy - 06/28/2015, Hx Vascular Surgery - port put in December,, Other - Port-A-Cath in right upper chest - Immunizations Immunizations up to date: Yes Hx Diphtheria, Pertussis, Tetanus Vaccination: Yes History of Influenza Vaccine for 12/2016 - 05/2017 Season: Yes Influenza Administration Date for 12/2016 - 05/2017 Season: 03/11/17 Physical Exam - Vital signs Vitals: Temp Pulse Resp BP Pulse Ox 98.2 F 95 18 107/57 L 97 12/16/17 21:56 12/16/17 21:56 12/16/17 21:56 12/16/17 21:56 12/16/17 21:56 Course - Vital Signs Vital signs: Temp Pulse Resp BP Pulse Ox 98.2 F 95 18 107/57 L 97 12/16/17 21:56 12/16/17 21:56 12/16/17 21:56 12/16/17 21:56 12/16/17 21:56 Doctor's Discharge - Discharge Referrals: JOIE MOREIRA MD [Primary Care Provider] - Follow up as needed
[2017-12-16] MEDS ORDERED: ONDANSETRON 4 MG TAB.RAPDIS PO ONE (23:25)
[2017-12-17 02:48] LABS: APPEARANCE,URINE CLEAR; BILIRUBIN,URINE NEGATIVE (NEGATIVE); COLOR,URINE YELLOW; GLUCOSE, URINE NEGATIVE (NEGATIVE); KETONES,URINE NEGATIVE (NEGATIVE); LEUKOCYTE ESTERASE,URINE SMALL (NEGATIVE); NITRITE,URINE NEGATIVE (NEGATIVE); PROTEIN,URINE NEGATIVE (NEGATIVE); URINE SPECIFIC GRAVITY 1.013
[2017-12-17] MEDS ORDERED: HYDROMORPHONE HCL INJ/PF 2 MG/ML AMPULE IV ONE ×2 (02:48→05:22)
[2017-12-17] MEDS ORDERED: DIPHENHYDRAMINE HCL 50 MG/ML VIAL IV ONE (02:48)
[2017-12-17 03:11] LABS: ABSOLUTE RETICS # 0.195 10^6/uL (0.028-0.122); HEMATOCRIT 29.4 % (36.0-47.0); HEMOGLOBIN 10.5 g/dL (12.0-15.5); MEAN CORPUSCULAR HGB CONC 35.8 g/dL (32.0-36.0); MEAN CORPUSCULAR VOLUME 95 fl (80-97); PLATELET COUNT 441 10^3/uL (150-450); RED CELL DISTRIBUTION WIDTH 19.7 % (11.5-14.0); RETICULOCYTE COUNT (AUTO) 6.28 % (0.66-2.85); WHITE BLOOD COUNT 16.4 10^3/uL (4.0-10.5)
[2017-12-17 03:29] LABS: ABSOLUTE LYMPHOCYTES# (MANUAL) 2.6 10^3/uL (0.5-4.7); ABSOLUTE MONOCYTES # (MANUAL) 1.3 10^3/uL (0.1-1.4); ABSOLUTE NEUTROPHILS# (MANUAL) 11.8 10^3/uL (1.7-8.2); BASOPHILS % (MANUAL) 2 % (0-2); EOSINOPHILS % (MANUAL) 2 % (0-6); LYMPHOCYTES % (MANUAL) 15 % (13-45); MONOCYTES % (MANUAL) 8 % (3-13); SEGMENTED NEUTROPHILS % (MAN) 72 % (42-78); TOTAL CELLS COUNTED 100
[2017-12-17 03:31] LABS: ANISOCYTOSIS 2+; OVALOCYTES SLIGHT; PLATELET COMMENT ADEQUATE; POIKILOCYTOSIS 3+; POLYCHROMASIA SLIGHT; SCHISTOCYTES 1+; TARGET CELLS 2+; TEAR DROP CELLS SLIGHT
[2017-12-17] MEDS ORDERED: KETOROLAC TROMETHAMINE INJ/PF 30 MG/1 ML SDV IV ONE (03:56)
[2017-12-17 04:12] LABS: ALANINE AMINOTRANSFERASE 120 U/L (9-52); ALBUMIN 4.6 g/dL (3.5-5.0); ALKALINE PHOSPHATASE 96 U/L (38-126); ANION GAP 9 (5-19); ASPARTATE AMINO TRANSFERASE 80 U/L (14-36); BILIRUBIN,DIRECT 0.9 mg/dL (0.0-0.4); BILIRUBIN,TOTAL 3.6 mg/dL (0.2-1.3); BLOOD UREA NITROGEN 5 mg/dL (7-20); CALCIUM 9.8 mg/dL (8.4-10.2); CARBON DIOXIDE 23 mmol/L (22-30); CHLORIDE 106 mmol/L (98-107); GLUCOSE 102 mg/dL (75-110); SODIUM 137.9 mmol/L (137-145); TOTAL PROTEIN 8.5 g/dL (6.3-8.2)
--- NOTE | 2017-12-17 06:55 | ER Document Report ---
ED General Pain - General Chief Complaint: Sickle Cell Crisis Stated Complaint: LOWER BACK PAIN Time Seen by Provider: 12/16/17 23:23 Mode of Arrival: Wheelchair Notes: Patient is a 22-year-old female presenting to the emergency department complaining of lower back pain. Patient stated last evening she had 2 episodes of vomiting, went to lay on the couch and then developed pain in her lower back. Pt. stated that "I know how my sickle cell pain feels." Pt. stated this pain feels just like all her other SC crises. Pt. was just d/c after admit for sickle cell crises on 12/15/2017. Pt. stated that when she was d/c she still had "a little bit of pain everywhere." Pt. denies chest pain, shortness of breath, abdominal pain, fever, dysuria, trauma to back, URI symptoms. Pt. currently denying nausea. TRAVEL OUTSIDE OF THE [place] IN LAST 30 DAYS: No - Related Data Allergies/Adverse Reactions: morphine Allergy (Severe, Verified 12/08/17 08:48) RASH,SWELLING jacob peppers Adverse Reaction (Severe, Uncoded 12/08/17 08:48) throat closes Past Medical History - General Information source: Patient - Social History Smoking Status: Unknown if Ever Smoked Lives with: Family Family History: Reviewed & Not Pertinent, Other - Sickle cell disease and sickle cell trait, asthma - Past Medical History Cardiac Medical History: Reports: Hx DVT - RUE s/p port placement Pulmonary Medical History: Reports: Hx Asthma, Hx Bronchitis - once in past per patient, Hx Pneumonia - 2014 Endocrine Medical History: Denies: Hx Diabetes Mellitus Type 1, Hx Diabetes Mellitus Type 2 Renal/ Medical History: Denies: Hx Peritoneal Dialysis Musculoskeletal Medical History: Reports Hx Musculoskeletal Trauma Psychiatric Medical History: Reports: Hx Anxiety, Hx Depression Past Surgical History: Reports: Hx Cholecystectomy - 06/28/2015, Hx Vascular Surgery - port put in December,, Other - Port-A-Cath in right upper chest - Immunizations Immunizations up to date: Yes Hx Diphtheria, Pertussis, Tetanus Vaccination: Yes Review of Systems - Review of Systems Constitutional: See HPI EENT: No symptoms reported Cardiovascular: See HPI Respiratory: See HPI Gastrointestinal: See HPI Genitourinary: See HPI Female Genitourinary: No symptoms reported Musculoskeletal: See HPI Skin: No symptoms reported Hematologic/Lymphatic: See HPI Neurological/Psychological: No symptoms reported Physical Exam - Vital signs Vitals: Temp Pulse Resp BP Pulse Ox 98.2 F 95 18 107/57 L 97 12/16/17 21:56 12/16/17 21:56 12/16/17 21:56 12/16/17 21:56 12/16/17 21:56 - Notes Notes: GENERAL: Alert, interacts well. No acute distress. HEAD: Normocephalic, atraumatic. EYES: Pupils equal, round, and reactive to light. Extraocular movements intact. ENT: Oral mucosa moist, tongue midline. NECK: Full range of motion. Supple. Trachea midline. LUNGS: Clear to auscultation bilaterally, no wheezes, rales, or rhonchi. No respiratory distress. HEART: Regular rate and rhythm. No murmur ABDOMEN: Soft, non-tender. Non-distended. Bowel sounds present in all 4 quadrants. EXTREMITIES: Moves all 4 extremities spontaneously. No edema, normal radial and dorsalis pedis pulses bilaterally. No cyanosis. BACK: no cervical, thoracic, lumbar midline tenderness. paraspinal lumbar pain BL. no CVA tenderness. No saddle anesthesia, normal distal neurovascular exam. NEUROLOGICAL: Alert and oriented x3. Normal speech. PSYCH: Normal affect, normal mood. SKIN: Warm, dry, normal turgor. No rashes or lesions noted. Course - Re-evaluation Re-evalutation: Prior to each order of pains medication, pain level was assessed. Pt. stated pain was getting better each time but was not 100% gone. Stated she is a Pt. of Dr. Moreira and she will call him today for follow up. Pt. stated that she thinks the Toradol helped her pain more than the Dilaudid. She stated her pain is "a lot better" prior to d/c. She wishes to be d/david and does not want to be admitted again. Return precautions given - Vital Signs Vital signs: Temp Pulse Resp BP Pulse Ox 98.2 F 95 18 107/57 L 97 12/16/17 21:56 12/16/17 21:56 12/16/17 21:56 12/16/17 21:56 12/16/17 21:56 - Laboratory Result Diagrams: 12/17/17 02:53 12/17/17 02:53 Laboratory results interpreted by me: 12/17/17 12/17/17 12/17/17 02:32 02:53 02:53 WBC 16.4 H RBC 3.10 L Hgb 10.5 L Hct 29.4 L MCH 34.0 H RDW 19.7 H Abs Neuts (Manual) 11.8 H Abs Basophils (Manual) 0.3 H Retic Count (auto) 6.28 H Absolute Retic 0.195 H BUN 5 L Creatinine 0.50 L Total Bilirubin 3.6 H Direct Bilirubin 0.9 H AST 80 H ALT 120 H Total Protein 8.5 H Urine Urobilinogen 2.0 H Ur Leukocyte Esterase SMALL H Discharge - Discharge Clinical Impression: Sickle cell pain crisis Condition: Stable Disposition: HOME, SELF-CARE Instructions: Sickle Cell Crisis ([facility]) Additional Instructions: As we discussed to you should call Dr. Moreira for follow up and possible change in your medications regimen. Return to the ED should you develop chest pain, shortness of breath, increase in pain, or have any other concerning symptoms. Referrals: JOIE MOREIRA MD [Primary Care Provider] - Follow up as needed
[2017-12-17 08:47] VITALS: BP 95/58
== END 2017-12-17 08:55 | disposition home or self-care (01) ==
LOC: ER 21:46
DX: D57.00 Hb-SS disease with crisis, unspecified (principal); M54.5 Low back pain; R11.10 Vomiting, unspecified; J45.909 Unspecified asthma, uncomplicated; Z88.5 Allergy status to narcotic agent
CPT/HCPCS: 36591; 96376; 99284; 96374; 96375; 36415; 85025; 81025; 85045; 80053; 81001; J1200; S0119; J1885; J1170

== ENCOUNTER 2017-12-18 11:02 | Outpatient (CLI) | payer MEDICAID ==
[2017-12-18 11:17] VITALS: BP 100/50
[2017-12-18] MEDS ORDERED: HYDROMORPHONE HCL INJ/PF 2 MG/ML AMPULE IV PRN (11:30)
[2017-12-18] MEDS ORDERED: NORMAL SALINE 1000 ML 1,000 ML IV PRN (11:31)
== END 2017-12-18 13:24 | disposition home or self-care (01) ==
LOC: II 11:02 → 5TH 11:06 → II 13:24
PROVIDERS: ATTEND Internal Medicine
PROC: 3E043GC Introduction of Other Therapeutic Substance into Central Vein, Percutaneous Approach (ICD-10-PCS; principal; 2017-12-18)
DX: Z76.89 Persons encountering health services in other specified circumstances (principal)
CPT/HCPCS: 96361; 96365; 96374; 96375

== ENCOUNTER 2017-12-18 13:06 | Emergency (ER) | payer MEDICAID ==
[2017-12-18] MEDS ORDERED: NORMAL SALINE 1000 ML 1,000 ML IV ONE (14:01)
[2017-12-18] MEDS ORDERED: NORMAL SALINE 1000 ML 1,000 ML IV PRN (14:01)
--- NOTE | 2017-12-18 14:02 | ER Document Report ---
ED Medical Screen (RME) - General Chief Complaint: Sickle Cell Crisis Stated Complaint: LOW BACK PAIN Time Seen by Provider: 12/18/17 13:52 Notes: 22 years old female with a history of sickle cell disease was seen here yesterday, return today apparently sent by Dr. Moreira, to be admitted to the hospital. TRAVEL OUTSIDE OF THE [place] IN LAST 30 DAYS: No - Related Data Allergies/Adverse Reactions: morphine Allergy (Severe, Verified 12/18/17 13:08) RASH,SWELLING jacob peppers Adverse Reaction (Severe, Uncoded 12/18/17 13:08) throat closes Past Medical History - Social History Chew tobacco use (# tins/day): No Frequency of alcohol use: None Drug Abuse: None Family history: Reviewed & Not Pertinent, Other - Pt was adopted. Does not know family history - Past Medical History Cardiac Medical History: Reports: Hx DVT - RUE s/p port placement Pulmonary Medical History: Reports: Hx Asthma, Hx Bronchitis - once in past per patient, Hx Pneumonia - 2014 Endocrine Medical History: Denies: Hx Diabetes Mellitus Type 1, Hx Diabetes Mellitus Type 2 Renal/ Medical History: Denies: Hx Peritoneal Dialysis Musculoskeltal Medical History: Reports Hx Musculoskeletal Trauma Psychiatric Medical History: Reports: Hx Anxiety, Hx Depression Past Surgical History: Reports: Hx Cholecystectomy - 06/28/2015, Hx Vascular Surgery - port put in December,, Other - Port-A-Cath in right upper chest - Immunizations Immunizations up to date: Yes Hx Diphtheria, Pertussis, Tetanus Vaccination: Yes History of Influenza Vaccine for 12/2016 - 05/2017 Season: Yes Influenza Administration Date for 12/2016 - 05/2017 Season: 03/11/17 Physical Exam - Vital signs Vitals: Temp Pulse Resp BP Pulse Ox 97.9 F 82 15 101/44 L 100 12/18/17 13:12 12/18/17 13:12 12/18/17 13:12 12/18/17 13:12 12/18/17 13:12 Course - Vital Signs Vital signs: Temp Pulse Resp BP Pulse Ox 97.9 F 82 15 101/44 L 100 12/18/17 13:12 12/18/17 13:12 12/18/17 13:12 12/18/17 13:12 12/18/17 13:12 Doctor's Discharge - Discharge Referrals: JOIE MOREIRA MD [Primary Care Provider] - Follow up as needed
[2017-12-18] MEDS ORDERED: DIPHENHYDRAMINE HCL 50 MG/ML VIAL IV ONE (15:12)
[2017-12-18] MEDS ORDERED: HYDROMORPHONE HCL INJ/PF 2 MG/ML AMPULE IV ONE ×2 (15:12→16:46)
--- NOTE | 2017-12-18 15:20 | ER Document Report ---
ED General - General Chief Complaint: Sickle Cell Crisis Stated Complaint: LOW BACK PAIN Time Seen by Provider: 12/18/17 13:52 Mode of Arrival: Ambulatory Information source: Patient, [facility] Records Notes: 22-year-old female with sickle cell disease presents with complaint of low back pain. Patient states back pain started 2 days prior to arrival. She has been taking her home medications but states it has not relieved her pain. She denies any fever, chills, chest pain, shortness of breath. She states this is typical of her pain for her pain flares. TRAVEL OUTSIDE OF THE [place] IN LAST 30 DAYS: No - HPI Onset: Other - 2 days prior to arrival Onset/Duration: Gradual, Persistent Quality of pain: Achy Severity: Mild Associated symptoms: denies: Chest pain, Productive cough, Fever, Nausea, Vomiting, Shortness of breath Exacerbated by: Denies Relieved by: Denies Similar symptoms previously: Yes Recently seen / treated by doctor: Yes - Related Data Allergies/Adverse Reactions: morphine Allergy (Severe, Verified 12/18/17 13:08) RASH,SWELLING jacob peppers Adverse Reaction (Severe, Uncoded 12/18/17 13:08) throat closes Past Medical History - General Information source: Patient, [facility] Records - Social History Smoking Status: Never Smoker Chew tobacco use (# tins/day): No Frequency of alcohol use: None Drug Abuse: None Lives with: Family Family History: Reviewed & Not Pertinent, Other - Sickle cell disease and sickle cell trait, asthma Patient has suicidal ideation: No Patient has homicidal ideation: No - Past Medical History Cardiac Medical History: Reports: Hx DVT - RUE s/p port placement Pulmonary Medical History: Reports: Hx Asthma, Hx Bronchitis - once in past per patient, Hx Pneumonia - 2014 Endocrine Medical History: Denies: Hx Diabetes Mellitus Type 1, Hx Diabetes Mellitus Type 2 Renal/ Medical History: Denies: Hx Peritoneal Dialysis Musculoskeletal Medical History: Reports Hx Musculoskeletal Trauma Psychiatric Medical History: Reports: Hx Anxiety, Hx Depression Past Surgical History: Reports: Hx Cholecystectomy - 06/28/2015, Hx Vascular Surgery - port put in December,, Other - Port-A-Cath in right upper chest - Immunizations Immunizations up to date: Yes Hx Diphtheria, Pertussis, Tetanus Vaccination: Yes Review of Systems - Review of Systems Notes: REVIEW OF SYSTEMS: CONSTITUTIONAL : Denies fever, chills, or sweats. Denies recent illness. Denies weight loss, recent hospitalizations. EENT: Denies visual changes, eye pain. Denies sore throat, oral lesions, difficulty swallowing. CARDIOVASCULAR: Denies chest pain. Denies palpitations. Denies lower extremity edema. RESPIRATORY: Denies cough. Denies shortness of breath, wheezing. GASTROINTESTINAL: Denies abdominal pain or distention. Denies nausea, vomiting , or diarrhea. Denies blood in vomitus, stools, or per rectum. Denies black, tarry stools. Denies constipation. GENITOURINARY: Denies difficulty urinating, painful urination, frequency, blood in urine, or vaginal discharge. MUSCULOSKELETAL: Denies neck pain or stiffness. Denies joint pain or swelling. SKIN: Denies rash, lesions or sores. HEMATOLOGIC : Denies easy bruising or bleeding. LYMPHATIC: Denies swollen glands. NEUROLOGICAL: Denies confusion or altered mental status. Denies loss of consciousness. Denies dizziness or lightheadedness. Denies headache. Denies weakness or paralysis. Denies problems difficulty with ambulation, slurred speech. Denies sensory loss, numbness, or tingling. Denies seizures. PSYCHIATRIC: Denies anxiety or stress. Denies depression, suicidal ideation, or homicidal ideation. Denies visual or auditory hallucinations. Physical Exam - Vital signs Vitals: Temp Pulse Resp BP Pulse Ox 97.9 F 82 15 101/44 L 100 12/18/17 13:12 12/18/17 13:12 12/18/17 13:12 12/18/17 13:12 12/18/17 13:12 - Notes Notes: PHYSICAL EXAMINATION: GENERAL: Well-appearing, well-nourished and in no acute distress. HEAD: Atraumatic, normocephalic. EYES: Pupils equal round and reactive to light, extraocular movements intact, conjunctiva are normal. ENT: Nares patent, oropharynx clear without exudates. Moist mucous membranes. NECK: Normal range of motion, supple without lymphadenopathy LUNGS: Breath sounds clear to auscultation bilaterally and equal. No wheezes rales or rhonchi. HEART: Regular rate and rhythm without murmurs ABDOMEN: Soft, nontender, nondistended abdomen. No guarding, no rebound. No masses appreciated. Female : deferred Musculoskeletal: Normal range of motion, no pitting or edema. No cyanosis. NEUROLOGICAL: Cranial nerves grossly intact. Normal speech, normal gait. Normal sensory, motor exams PSYCH: Normal mood, normal affect. SKIN: Warm, Dry, normal turgor, no rashes or lesions noted. Course - Re-evaluation Re-evalutation: Laboratory 12/18/17 15:45 WBC 15.5 H RBC 2.89 L Hgb 9.6 L Hct 27.4 L MCV 95 MCH 33.3 MCHC 35.2 RDW 19.3 H Plt Count 420 Seg Neutrophils % 62.3 Lymphocytes % 27.8 Monocytes % 5.9 Eosinophils % 2.4 Basophils % 1.6 Absolute Neutrophils 9.6 H Absolute Lymphocytes 4.3 Absolute Monocytes 0.9 Absolute Eosinophils 0.4 Absolute Basophils 0.3 H Toxic Granulation SLIGHT Platelet Comment ADEQUATE Poikilocytosis SLIGHT Anisocytosis 2+ Target Cells SLIGHT Ovalocytes SLIGHT Retic Count (auto) 4.53 H Absolute Retic 0.131 H 12/18/17 16:00 22-year-old female with sickle cell disease presents with complaint of low back pain. She states this is typical of her pain flares. She has been taking her medication at home without relief. She denies any injury, fever, chest pain. Upon my exam patient appears well, she is texting on her phone. 12/18/17 21:16 Patient was reevaluated multiple times. She received multiple rounds of pain medications. She has been eating [employer] and talking on her phone. She appears well and is in no distress. Patient is sleeping soundly on last exam. 12/18/17 21:26 Patient reports improvement in her pain. She will follow-up with her oncologist tomorrow. 12/20/17 02:08 Patient provided the opportunity to ask questions, and express concerns. Discharge instructions discussed. Patient is agreeable with discharge home. Return indications explained and discussed with the patient who displays understanding. Patient encouraged to return to the emergency department immediately with any concerns. Results were discussed with the patient at this point, after careful consideration I feel that that patient can be discharged from the emergency department, the patient was educated treatments and reasons to return to the emergency department based on their presumed diagnosis as noted above, they were advised to followup with a primary care physician in 2-3 days. Patient was agreeable to plan of care. Dictation on this chart was performed using voice recognition software and may result in unintended grammatical, spelling, syntax or errors. - Vital Signs Vital signs: Temp Pulse Resp BP Pulse Ox 98.4 F 94 16 115/57 L 97 12/18/17 22:02 12/18/17 22:02 12/18/17 22:02 12/18/17 22:02 12/18/17 22:02 - Laboratory Result Diagrams: 12/18/17 15:45 Laboratory results interpreted by me: 12/18/17 15:45 WBC 15.5 H RBC 2.89 L Hgb 9.6 L Hct 27.4 L RDW 19.3 H Absolute Neutrophils 9.6 H Absolute Basophils 0.3 H Retic Count (auto) 4.53 H Absolute Retic 0.131 H Discharge - Discharge Clinical Impression: Sickle cell pain crisis Low back pain Qualifiers: Chronicity: acute Back pain laterality: unspecified Sciatica presence: unspecified whether sciatica present Qualified Code(s): M54.5 - Low back pain Sickle cell anemia Qualifiers: Sickle-cell associated disorders: with unspecified crisis Qualified Code(s): D57.00 - Hb-SS disease with crisis, unspecified Condition: Good Disposition: HOME, SELF-CARE Instructions: Sickle Cell Crisis ([facility]) Prescriptions: Folic Acid 0.4 mg PO DAILY #14 tablet Folic Acid 20 mg PO DAILY #10 capsule Referrals: JOIE MOREIRA MD [Primary Care Provider] - Follow up tomorrow
[2017-12-18 16:18] LABS: ABSOLUTE BASOPHILS # (AUTO) 0.3 10^3/uL (0.0-0.2); ABSOLUTE EOSINOPHILS # (AUTO) 0.4 10^3/uL (0.0-0.6); ABSOLUTE LYMPHOCYTES (AUTO) 4.3 10^3/uL (0.5-4.7); ABSOLUTE MONOCYTES (AUTO) 0.9 10^3/uL (0.1-1.4); ABSOLUTE NEUT (AUTO) 9.6 10^3/uL (1.7-8.2); ABSOLUTE RETICS # 0.131 10^6/uL (0.028-0.122); BASOPHILS % (AUTO) 1.6 % (0-2); EOSINOPHILS % (AUTO) 2.4 % (0-6); HEMATOCRIT 27.4 % (36.0-47.0); HEMOGLOBIN 9.6 g/dL (12.0-15.5); LYMPHOCYTES % (AUTO) 27.8 % (13-45); MEAN CORPUSCULAR HEMOGLOBIN 33.3 pg (27.0-33.4); MEAN CORPUSCULAR HGB CONC 35.2 g/dL (32.0-36.0); MEAN CORPUSCULAR VOLUME 95 fl (80-97); MONOCYTES % (AUTO) 5.9 % (3-13); PLATELET COUNT 420 10^3/uL (150-450); RED BLOOD COUNT 2.89 10^6/uL (3.72-5.28); RED CELL DISTRIBUTION WIDTH 19.3 % (11.5-14.0); RETICULOCYTE COUNT (AUTO) 4.53 % (0.66-2.85); SEGMENTED NEUTROPHILS % (AUTO) 62.3 % (42-78); TOTAL CELLS COUNTED % (AUTO) 100 %; WHITE BLOOD COUNT 15.5 10^3/uL (4.0-10.5)
[2017-12-18 16:31] LABS: ANISOCYTOSIS 2+; OVALOCYTES SLIGHT; PLATELET COMMENT ADEQUATE; POIKILOCYTOSIS SLIGHT; TARGET CELLS SLIGHT; TOXIC GRANULATION SLIGHT
[2017-12-18] MEDS ORDERED: FENTANYL CITRATE INJ/PF 100 MCG/2 ML AMPUL IV ONE ×2 (18:43→20:18)
[2017-12-18] MEDS ORDERED: METOCLOPRAMIDE HCL INJ/PF 10 MG/2 ML SDV IV ONE (20:18)
[2017-12-18] MEDS ORDERED: RINGERS SOLUTION,LACTATED 1,000 ML IV ONE (20:19)
[2017-12-18 22:03] VITALS: BP 115/57
== END 2017-12-18 22:05 | disposition home or self-care (01) ==
LOC: ER 13:06
DX: D57.00 Hb-SS disease with crisis, unspecified (principal); M54.5 Low back pain
CPT/HCPCS: 36591; 96376; 99284; 96361; 96374; 96375; 36415; 85025; 85045; J1200; J3010; J2765; J1170

== ENCOUNTER 2017-12-20 12:56 | Emergency (ER) | payer MEDICAID ==
[2017-12-20] MEDS ORDERED: KETOROLAC TROMETHAMINE INJ/PF 30 MG/1 ML SDV IV ONE (14:12)
--- NOTE | 2017-12-20 14:12 | ER Document Report ---
ED General Pain - General Chief Complaint: Sickle Cell Crisis Stated Complaint: BACK PAIN Time Seen by Provider: 12/20/17 14:10 TRAVEL OUTSIDE OF THE [place] IN LAST 30 DAYS: No - Related Data Allergies/Adverse Reactions: morphine Allergy (Severe, Verified 12/20/17 12:59) RASH,SWELLING jacob peppers Adverse Reaction (Severe, Uncoded 12/20/17 12:59) throat closes Past Medical History - Social History Family History: Reviewed & Not Pertinent, Other - Sickle cell disease and sickle cell trait, asthma - Past Medical History Cardiac Medical History: Reports: Hx DVT - RUE s/p port placement Pulmonary Medical History: Reports: Hx Asthma, Hx Bronchitis - once in past per patient, Hx Pneumonia - 2014 Neurological Medical History: Endocrine Medical History: Denies: Hx Diabetes Mellitus Type 1, Hx Diabetes Mellitus Type 2 Renal/ Medical History: Denies: Hx Peritoneal Dialysis GI Medical History: Musculoskeletal Medical History: Reports Hx Musculoskeletal Trauma Psychiatric Medical History: Reports: Hx Anxiety, Hx Depression Past Surgical History: Reports: Hx Cholecystectomy - 06/28/2015, Hx Vascular Surgery - port put in December,, Other - Port-A-Cath in right upper chest - Immunizations Immunizations up to date: Yes Hx Diphtheria, Pertussis, Tetanus Vaccination: Yes Physical Exam - Vital signs Vitals: Temp Pulse Resp BP Pulse Ox 98.6 F 103 H 16 113/51 L 98 12/20/17 13:18 12/20/17 13:18 12/20/17 13:18 12/20/17 13:18 12/20/17 13:18 Course - Vital Signs Vital signs: Temp Pulse Resp BP Pulse Ox 98.6 F 103 H 16 113/51 L 98 12/20/17 13:18 12/20/17 13:18 12/20/17 13:18 12/20/17 13:18 12/20/17 13:18 Discharge - Discharge Referrals: JOIE MOREIRA MD [Primary Care Provider] - Follow up as needed
[2017-12-20] MEDS ORDERED: FENTANYL CITRATE INJ/PF 100 MCG/2 ML AMPUL IV ONE (14:13)
--- NOTE | 2017-12-20 14:15 | ER Document Report ---
ED Medical Screen (RME) - General Chief Complaint: Sickle Cell Crisis Stated Complaint: BACK PAIN Time Seen by Provider: 12/20/17 14:10 Notes: 22-year-old -[place] female to the emergency department chief complaint of "sickle cell crisis" patient states that she was instructed to come here by her oncologist for treatment of his sickle cell crisis. Patient was seen here 2 days ago for back pain. I have greeted and performed a rapid initial assessment of this patient. A comprehensive ED assessment and evaluation of the patient, analysis of test results and completion of the medical decision making process will be conducted by additional ED providers. TRAVEL OUTSIDE OF THE [place] IN LAST 30 DAYS: No - Related Data Allergies/Adverse Reactions: morphine Allergy (Severe, Verified 12/20/17 12:59) RASH,SWELLING jacob peppers Adverse Reaction (Severe, Uncoded 12/20/17 12:59) throat closes Past Medical History - Social History Chew tobacco use (# tins/day): No Family history: Reviewed & Not Pertinent, Other - Pt was adopted. Does not know family history - Past Medical History Cardiac Medical History: Reports: Hx DVT - RUE s/p port placement Pulmonary Medical History: Reports: Hx Asthma, Hx Bronchitis - once in past per patient, Hx Pneumonia - 2014 Neurological Medical History: Endocrine Medical History: Denies: Hx Diabetes Mellitus Type 1, Hx Diabetes Mellitus Type 2 Renal/ Medical History: Denies: Hx Peritoneal Dialysis GI Medical History: Musculoskeltal Medical History: Reports Hx Musculoskeletal Trauma Psychiatric Medical History: Reports: Hx Anxiety, Hx Depression Past Surgical History: Reports: Hx Cholecystectomy - 06/28/2015, Hx Vascular Surgery - port put in December,, Other - Port-A-Cath in right upper chest - Immunizations Immunizations up to date: Yes Hx Diphtheria, Pertussis, Tetanus Vaccination: Yes History of Influenza Vaccine for 12/2016 - 05/2017 Season: Yes Influenza Administration Date for 12/2016 - 05/2017 Season: 03/11/17 Physical Exam - Vital signs Vitals: Temp Pulse Resp BP Pulse Ox 98.6 F 103 H 16 113/51 L 98 12/20/17 13:18 12/20/17 13:18 12/20/17 13:18 12/20/17 13:18 12/20/17 13:18 Course - Vital Signs Vital signs: Temp Pulse Resp BP Pulse Ox 98.6 F 103 H 16 113/51 L 98 12/20/17 13:18 12/20/17 13:18 12/20/17 13:18 12/20/17 13:18 12/20/17 13:18 Doctor's Discharge - Discharge Referrals: JOIE MROEIRA MD [Primary Care Provider] - Follow up as needed
--- NOTE | 2017-12-20 15:06 | RADIOLOGY REPORT (SQ) ---
EXAM DESCRIPTION: CHEST 2 VIEWS COMPLETED DATE/TIME: 12/20/2017 2:56 pm REASON FOR STUDY: CHEST PAIN COMPARISON: 12/06/2017. EXAM PARAMETERS: NUMBER OF VIEWS: two views TECHNIQUE: Digital Frontal and Lateral radiographic views of the chest acquired. RADIATION DOSE: NA LIMITATIONS: none FINDINGS: LUNGS AND PLEURA: No opacities, masses or pneumothorax. No pleural effusion. MEDIASTINUM AND HILAR STRUCTURES: No masses or contour abnormalities. HEART AND VASCULAR STRUCTURES: Heart normal size. No evidence for failure. BONES: No acute findings. HARDWARE: Vascular access port. Clips in the upper abdomen. OTHER: No other significant finding. IMPRESSION: NO ACUTE RADIOGRAPHIC FINDING IN THE CHEST. TECHNICAL DOCUMENTATION: JOB ID: [id number] [employer]- All Rights Reserved Reading location - IP/workstation name: [email or web address]
[2017-12-20 16:32] LABS: ABSOLUTE BASOPHILS # (AUTO) 0.3 10^3/uL (0.0-0.2); ABSOLUTE EOSINOPHILS # (AUTO) 0.2 10^3/uL (0.0-0.6); ABSOLUTE LYMPHOCYTES (AUTO) 4.7 10^3/uL (0.5-4.7); ABSOLUTE MONOCYTES (AUTO) 1.1 10^3/uL (0.1-1.4); ABSOLUTE RETICS # 0.189 10^6/uL (0.028-0.122); BASOPHILS % (AUTO) 2.2 % (0-2); EOSINOPHILS % (AUTO) 1.4 % (0-6); HEMATOCRIT 28.3 % (36.0-47.0); HEMOGLOBIN 10.2 g/dL (12.0-15.5); LYMPHOCYTES % (AUTO) 30.7 % (13-45); MEAN CORPUSCULAR HEMOGLOBIN 33.7 pg (27.0-33.4); MEAN CORPUSCULAR HGB CONC 35.9 g/dL (32.0-36.0); MEAN CORPUSCULAR VOLUME 94 fl (80-97); MONOCYTES % (AUTO) 7.4 % (3-13); PLATELET COUNT 410 10^3/uL (150-450); RED BLOOD COUNT 3.02 10^6/uL (3.72-5.28); RED CELL DISTRIBUTION WIDTH 20.1 % (11.5-14.0); RETICULOCYTE COUNT (AUTO) 6.27 % (0.66-2.85); SEGMENTED NEUTROPHILS % (AUTO) 58.3 % (42-78); TOTAL CELLS COUNTED % (AUTO) 100 %; WHITE BLOOD COUNT 15.4 10^3/uL (4.0-10.5)
[2017-12-20 16:49] LABS: ANISOCYTOSIS 2+; PLATELET COMMENT ADEQUATE; POIKILOCYTOSIS 1+; POLYCHROMASIA SLIGHT; TARGET CELLS 1+; TEAR DROP CELLS SLIGHT
[2017-12-20 16:52] LABS: ALANINE AMINOTRANSFERASE 50 U/L (9-52); ALBUMIN 4.1 g/dL (3.5-5.0); ALKALINE PHOSPHATASE 70 U/L (38-126); ANION GAP 8 (5-19); ASPARTATE AMINO TRANSFERASE 35 U/L (14-36); BILIRUBIN,DIRECT 0.8 mg/dL (0.0-0.4); BILIRUBIN,TOTAL 4.3 mg/dL (0.2-1.3); BLOOD UREA NITROGEN 7 mg/dL (7-20); CALCIUM 9.3 mg/dL (8.4-10.2); CARBON DIOXIDE 23 mmol/L (22-30); CHLORIDE 110 mmol/L (98-107); GLUCOSE 88 mg/dL (75-110); POTASSIUM 4.7 mmol/L (3.6-5.0); SODIUM 140.6 mmol/L (137-145); TOTAL PROTEIN 7.7 g/dL (6.3-8.2)
[2017-12-20] MEDS ORDERED: DIPHENHYDRAMINE HCL 25 MG CAPSULE PO ONE (18:26)
[2017-12-20 19:02] VITALS: BP 108/55
[2017-12-20] MEDS: HYDROMORPHONE HCL INJ/PF 2 MG/ML AMPULE IV PRN ×3 (19:08→21:42)
--- NOTE | 2017-12-20 19:53 | ER Document Report ---
ED General - General Chief Complaint: Sickle Cell Crisis Stated Complaint: BACK PAIN Time Seen by Provider: 12/20/17 14:10 Notes: Patient is a 22-year-old female with a history of sickle cell anemia, presents complaining of a sickle cell crisis. This is her seventh presentation to the emergency department in November 2017 and she has also been hospitalized on 2 separate occasions for pain control. The patient states that she has a diffuse , throbbing, aching pain to her low back as well as chest pain. She states this is typical for her sickle cell pain. The patient notes that the her home pain medications are not working. States that she contacted the lap runner on -call who referred her to the emergency department. She denies fever or constitutional symptoms. Nothing improves or worsens her symptoms. TRAVEL OUTSIDE OF THE [place] IN LAST 30 DAYS: No - Related Data Allergies/Adverse Reactions: morphine Allergy (Severe, Verified 12/20/17 12:59) RASH,SWELLING jacob peppers Adverse Reaction (Severe, Uncoded 12/20/17 12:59) throat closes Past Medical History - General Information source: Patient - Social History Smoking Status: Never Smoker Chew tobacco use (# tins/day): No Frequency of alcohol use: None Drug Abuse: None Lives with: Family Family History: Reviewed & Not Pertinent, Other - Sickle cell disease and sickle cell trait, asthma Patient has suicidal ideation: No Patient has homicidal ideation: No - Past Medical History Cardiac Medical History: Reports: Hx DVT - RUE s/p port placement Pulmonary Medical History: Reports: Hx Asthma, Hx Bronchitis - once in past per patient, Hx Pneumonia - 2014 Neurological Medical History: Endocrine Medical History: Denies: Hx Diabetes Mellitus Type 1, Hx Diabetes Mellitus Type 2 Renal/ Medical History: Denies: Hx Peritoneal Dialysis GI Medical History: Musculoskeletal Medical History: Reports Hx Musculoskeletal Trauma Psychiatric Medical History: Reports: Hx Anxiety, Hx Depression Past Surgical History: Reports: Hx Cholecystectomy - 06/28/2015, Hx Vascular Surgery - port put in December,, Other - Port-A-Cath in right upper chest - Immunizations Immunizations up to date: Yes Hx Diphtheria, Pertussis, Tetanus Vaccination: Yes Review of Systems - Review of Systems Notes: Constitutional: Negative for fever. HENT: Negative for sore throat. Eyes: Negative for visual changes. Cardiovascular: Positive for chest pain. Respiratory: Negative for shortness of breath. Gastrointestinal: Negative for abdominal pain, vomiting or diarrhea. Genitourinary: Negative for dysuria. Musculoskeletal: Positive for diffuse low back pain Skin: Negative for rash. Neurological: Negative for headaches, weakness or numbness. 10 point ROS negative except as marked above and in HPI. Physical Exam - Vital signs Vitals: Temp Pulse Resp BP Pulse Ox 98.6 F 103 H 16 113/51 L 98 12/20/17 13:18 12/20/17 13:18 12/20/17 13:18 12/20/17 13:18 12/20/17 13:18 Interpretation: Tachycardic - Resolved at the time of my assessment Notes: PHYSICAL EXAMINATION: GENERAL: Well-appearing, well-nourished and in no acute distress. HEAD: Atraumatic, normocephalic. EYES: Pupils equal round and reactive to light, extraocular movements intact, sclera anicteric, conjunctiva are normal. ENT: nares patent, oropharynx clear without exudates. Moist mucous membranes. NECK: Normal range of motion, supple without lymphadenopathy LUNGS: Breath sounds clear to auscultation bilaterally and equal. No wheezes rales or rhonchi. HEART: Regular rate and rhythm without murmurs ABDOMEN: Soft, nontender, normoactive bowel sounds. No guarding, no rebound. No masses appreciated. EXTREMITIES: Normal range of motion, no pitting or edema. No cyanosis. NEUROLOGICAL: No focal neurological deficits. Moves all extremities spontaneously and on command. PSYCH: Normal mood, normal affect. SKIN: Warm, Dry, normal turgor, no rashes or lesions noted. Course - Re-evaluation Re-evalutation: 12/20/17 19:52 Presentation is most consistent with an uncomplicated sickle cell pain crisis. Patient has no evidence of an aplastic crisis on labs. Chest x-ray and vitals are not consistent with acute chest syndrome. Vitals have remained within normal limits here in the emergency department. Patient's pain has been able to be controlled using IV analgesia. Patient did request hospitalization although she is sitting in her room, eating food, playing on her phone, does not appear in any distress of any kind. I do not believe she warrants hospitalization. I discussed with the oncologist rehabilitation caseworker who is in agreement and likewise does not believe the patient requires hospitalization. Will discharge the patient. I recommended that they follow closely with their primary lap runner. Return precautions have been reviewed and discussed and patient has verbalized indications to return to the emergency department. - Vital Signs Vital signs: Temp Pulse Resp BP Pulse Ox 98.4 F 83 16 108/55 L 100 12/20/17 19:01 12/20/17 19:01 12/20/17 19:01 12/20/17 19:01 12/20/17 19:01 - Laboratory Result Diagrams: 12/20/17 16:10 12/20/17 16:10 Laboratory results interpreted by me: 12/20/17 12/20/17 16:10 16:10 WBC 15.4 H RBC 3.02 L Hgb 10.2 L Hct 28.3 L MCH 33.7 H RDW 20.1 H Basophils % 2.2 H Absolute Neutrophils 9.0 H Absolute Basophils 0.3 H Retic Count (auto) 6.27 H Absolute Retic 0.189 H Chloride 110 H Creatinine 0.50 L Total Bilirubin 4.3 H Direct Bilirubin 0.8 H - Diagnostic Test Radiology reviewed: Image reviewed, Reports reviewed Radiology results interpreted by me: 12/20/17 19:53 Chest x-ray: No acute infiltrate or pneumothorax Discharge - Discharge Clinical Impression: Sickle cell crisis Back pain Qualifiers: Back pain location: low back pain Chronicity: chronic Back pain laterality: bilateral Sciatica presence: without sciatica Qualified Code(s): M54.5 - Low back pain Condition: Good Disposition: HOME, SELF-CARE Additional Instructions: You were seen today for sickle cell pain crisis. Please follow-up with your lap runner. Returning to the ED if you have worsening pain, fever greater than 100.4, shortness of breath, persistent vomiting, or any other symptoms that are concerning to you. Referrals: JOIE MOREIRA MD [Primary Care Provider] - Follow up as needed
== END 2017-12-20 22:54 | disposition home or self-care (01) ==
LOC: ER 12:56
DX: D57.00 Hb-SS disease with crisis, unspecified (principal); M54.5 Low back pain; G89.29 Other chronic pain; R07.9 Chest pain, unspecified; J45.909 Unspecified asthma, uncomplicated; Z88.5 Allergy status to narcotic agent
CPT/HCPCS: 96376; 99284; 96374; 96375; 36415; 85025; 85045; 80053; 71046; J3490; J3010; J1885; J1170

== ENCOUNTER 2017-12-21 00:38 | Emergency (ER) | payer MEDICAID ==
--- NOTE | 2017-12-21 02:19 | ER Document Report ---
ED General - General Chief Complaint: Psych Problem Stated Complaint: PSYCH PROBLEM Time Seen by Provider: 12/21/17 01:32 Notes: 22-year-old female with sickle cell disease presents with suicidal ideation. Her plan is to overdose with her home medication of Dilaudid. Patient was just released approximately 10 minutes prior to her rechecking in. She did threaten the previous provider that if he did not admit her she would sign in as suicidal. Patient was seen and examined and was pain-free during her previous visit but she refused to go home because of the possibility of the pain returning. The previous provider spoke to oncology on-call and reviewed her exam and labs with her and they agreed that the patient did not require admission. Patient has been seen numerous times for pain medication. She displays drug-seeking behavior. After reviewing the previous providers note patient was eating, talking on her phone and appeared very comfortable. She is well-known to myself and I have seen her several times for similar symptoms. TRAVEL OUTSIDE OF THE [place] IN LAST 30 DAYS: No - HPI Onset: Just prior to arrival Onset/Duration: Sudden Quality of pain: No pain Associated symptoms: None Exacerbated by: Denies Relieved by: Denies Similar symptoms previously: Yes Recently seen / treated by doctor: Yes - 10 minutes prior to arrival she was seen and evaluated and discharged - Related Data Allergies/Adverse Reactions: morphine Allergy (Severe, Verified 12/20/17 12:59) RASH,SWELLING jacob peppers Adverse Reaction (Severe, Uncoded 12/20/17 12:59) throat closes Past Medical History - General Information source: Patient, [facility] Records - Social History Smoking Status: Never Smoker Frequency of alcohol use: None Drug Abuse: Prescription drugs Lives with: Family Family History: Reviewed & Not Pertinent, Other - Sickle cell disease and sickle cell trait, asthma Patient has suicidal ideation: Yes Patient has homicidal ideation: No - Past Medical History Cardiac Medical History: Reports: Hx DVT - RUE s/p port placement Pulmonary Medical History: Reports: Hx Asthma, Hx Bronchitis - once in past per patient, Hx Pneumonia - 2014 Neurological Medical History: Endocrine Medical History: Denies: Hx Diabetes Mellitus Type 1, Hx Diabetes Mellitus Type 2 Renal/ Medical History: Denies: Hx Peritoneal Dialysis GI Medical History: Musculoskeletal Medical History: Reports Hx Musculoskeletal Trauma Psychiatric Medical History: Reports: Hx Anxiety, Hx Depression Past Surgical History: Reports: Hx Cholecystectomy - 06/28/2015, Hx Vascular Surgery - port put in December,, Other - Port-A-Cath in right upper chest - Immunizations Immunizations up to date: Yes Hx Diphtheria, Pertussis, Tetanus Vaccination: Yes Review of Systems - Review of Systems Notes: REVIEW OF SYSTEMS: CONSTITUTIONAL : Denies fever, chills, or sweats. Denies recent illness. Denies weight loss, recent hospitalizations. EENT: Denies visual changes, eye pain. Denies sore throat, oral lesions, difficulty swallowing. CARDIOVASCULAR: Denies chest pain. Denies palpitations. Denies lower extremity edema. RESPIRATORY: Denies cough. Denies shortness of breath, wheezing. GASTROINTESTINAL: Denies abdominal pain or distention. Denies nausea, vomiting , or diarrhea. Denies blood in vomitus, stools, or per rectum. Denies black, tarry stools. Denies constipation. GENITOURINARY: Denies difficulty urinating, painful urination, frequency, blood in urine, or vaginal discharge. MUSCULOSKELETAL: Denies back or neck pain or stiffness. Denies joint pain or swelling. SKIN: Denies rash, lesions or sores. HEMATOLOGIC : Denies easy bruising or bleeding. LYMPHATIC: Denies swollen glands. NEUROLOGICAL: Denies confusion or altered mental status. Denies loss of consciousness. Denies dizziness or lightheadedness. Denies headache. Denies weakness or paralysis. Denies problems difficulty with ambulation, slurred speech. Denies sensory loss, numbness, or tingling. Denies seizures. PSYCHIATRIC: Denies anxiety or stress. Denies homicidal ideation. Denies visual or auditory hallucinations. Physical Exam - Vital signs Vitals: Temp Pulse Resp BP Pulse Ox 97.5 F 82 16 109/63 98 12/21/17 00:44 12/21/17 00:44 12/21/17 00:44 12/21/17 00:44 12/21/17 00:44 - Notes Notes: PHYSICAL EXAMINATION: GENERAL: Well-appearing, well-nourished and in no acute distress. HEAD: Atraumatic, normocephalic. EYES: Pupils equal round and reactive to light, extraocular movements intact, conjunctiva are normal. ENT: Nares patent, oropharynx clear without exudates. Moist mucous membranes. NECK: Normal range of motion, supple without lymphadenopathy LUNGS: Breath sounds clear to auscultation bilaterally and equal. No wheezes rales or rhonchi. HEART: Regular rate and rhythm without murmurs ABDOMEN: Soft, nontender, nondistended abdomen. No guarding, no rebound. No masses appreciated. Female : deferred Musculoskeletal: Normal range of motion, no pitting or edema. No cyanosis. NEUROLOGICAL: Cranial nerves grossly intact. Normal speech, normal gait. Normal sensory, motor exams PSYCH: Admits to suicidal ideation. SKIN: Warm, Dry, normal turgor, no rashes or lesions noted. Course - Re-evaluation Re-evalutation: Laboratory 12/21/17 12/21/17 03:30 03:30 Serum HCG, Qual NEGATIVE Salicylates < 1.0 L Acetaminophen < 10 L Serum Alcohol < 10 12/21/17 05:33 22-year-old female with sickle cell disease presents 10 minutes after being discharged with suicidal ideation. Patient was seen earlier this evening and discharged home after her pain was controlled. She initially refused to leave because she was scared that her pain would return. She told the previous provider that if he did not admit her she would sign back in for suicide. Previous provider did speak to on-call oncologist who agreed that based on the patient's labs, physical exam did not need admission at this time. Patient has been seen numerous times for similar symptoms. After review of previous notes patient always appears comfortable. She requests specific medications and displays drug-seeking behavior. Her current plan for suicide is overdose on her home meds of Dilaudid. Please see the labs done on 12/20/2017 that were ordered and obtained just a few hours prior to second visit. IVC paperwork initiated. 12/21/17 05:46 - Vital Signs Vital signs: Temp Pulse Resp BP Pulse Ox 97.5 F 82 16 109/63 98 12/21/17 00:44 12/21/17 00:44 12/21/17 00:44 12/21/17 00:44 12/21/17 00:44 - Laboratory Laboratory results interpreted by me: 12/21/17 03:30 Salicylates < 1.0 L Acetaminophen < 10 L - Diagnostic Test Radiology reviewed: Image reviewed, Reports reviewed Discharge - Discharge Clinical Impression: Suicidal ideation Sickle cell disease Qualifiers: Sickle-cell associated disorders: without crisis Qualified Code(s): D57.1 - Sickle-cell disease without crisis Condition: Good Referrals: JOIE MROEIRA MD [Primary Care Provider] - Follow up as needed
[2017-12-21 04:08] LABS: ACETAMINOPHEN < 10 ug/mL (10-30); ALCOHOL < 10 mg/dL (NONE DETECTED); SALICYLATE < 1.0 mg/dL (2.0-20.0)
[2017-12-21] MEDS: DIPHENHYDRAMINE HCL 50 MG CAPSULE PO SCH ×2 (05:00→09:01)
[2017-12-21] MEDS: HYDROMORPHONE HCL 2 MG TABLET PO SCH ×2 (05:00→08:32)
[2017-12-21 07:39] LABS: APPEARANCE,URINE CLEAR; BILIRUBIN,URINE NEGATIVE (NEGATIVE); COLOR,URINE YELLOW; GLUCOSE, URINE NEGATIVE (NEGATIVE); KETONES,URINE NEGATIVE (NEGATIVE); LEUKOCYTE ESTERASE,URINE NEGATIVE (NEGATIVE); NITRITE,URINE NEGATIVE (NEGATIVE); PROTEIN,URINE NEGATIVE (NEGATIVE); UROBILINOGEN,URINE NEGATIVE mg/dL (<2.0)
[2017-12-21 08:06] LABS: URINE AMPHETAMINES SCREEN NEGATIVE; URINE BARBITURATES SCREEN NEGATIVE; URINE BENZODIAZEPINES SCREEN NEGATIVE; URINE COCAINE SCREEN NEGATIVE; URINE MARIJUANA (THC) SCREEN NEGATIVE; URINE METHADONE SCREEN NEGATIVE; URINE PHENCYCLIDINE SCREEN NEGATIVE
--- NOTE | 2017-12-21 10:06 | ER Document Report ---
Doctor's Note Notes: 12/21/17 10:04 22-year-old female with past medical history of sickle cell disease who presents stating that she cannot get relief from the pain so she wanted to injure herself. She was not given pain medications while she was here at this facility and stated if she left without pain medications she would come back and states she was suicidal. This is what appears to have occurred according to the notes. Patient currently this morning denies any suicidal homicidal ideations. She does have a local toy packer. She does have pain medications at home according to the patient's report. Labs as recorded. Vital signs are stable. The psychology team is seen and assessed the patient and they do not believe that the patient meets IVC criteria. They will set up the patient with community water/wastewater project engineer interventions as well as a professor of social work to help the patient find outpatient resources. Patient will follow up with her toy packer. She is comfortable with this plan.
[2017-12-21 11:58] VITALS: BP 110/80
--- NOTE | 2017-12-21 14:32 | EKG REPORT ---
SEVERITY:- NORMAL ECG - SINUS RHYTHM : Confirmed by: Mary Vega MD 21-Dec-2017 14:30:52
== END 2017-12-21 11:57 | disposition home or self-care (01) ==
LOC: ER 00:38
DX: R45.851 Suicidal ideations (principal); D57.1 Sickle-cell disease without crisis; F19.10 Other psychoactive substance abuse, uncomplicated; Z76.5 Malingerer [conscious simulation]; Z79.891 Long term (current) use of opiate analgesic; J45.909 Unspecified asthma, uncomplicated; Z88.5 Allergy status to narcotic agent
CPT/HCPCS: 93005; 36591; 99285; 36415; 80307 ×4; 84703; 81001; 93010; J3490 ×2

== ENCOUNTER 2018-05-29 06:59 | Emergency (ER) | payer MEDICAID ==
--- NOTE | 2018-05-29 07:56 | ER Document Report ---
ED General - General Chief Complaint: Low Back Pain Stated Complaint: BACK PAIN Time Seen by Provider: 05/29/18 07:28 Primary Care Provider: JOIE BAUM MD [Primary Care Provider] - Follow up as needed Notes: Very pleasant 23-year-old female with sickle cell disease presents for an episode of sickle cell pain. She states this is a typical pain pattern that is in her low to mid back. She states she is compliant with her hydroxyurea, folic acid, and Xarelto. Dr. Baum recently switched her pain regimen to oxycodone. The last time she has required Dilaudid was December 2017 when she had her last pain episode occurred. She denies chest pain or shortness of breath. Denies fevers. She has no other complaints. TRAVEL OUTSIDE OF THE [place] IN LAST 30 DAYS: No - Related Data Allergies/Adverse Reactions: morphine Allergy (Severe, Verified 05/29/18 07:00) RASH,SWELLING jacob peppers Adverse Reaction (Severe, Uncoded 05/29/18 07:00) throat closes Past Medical History - Social History Smoking Status: Never Smoker Family History: Reviewed & Not Pertinent, Other - Sickle cell disease and sickle cell trait, asthma - Past Medical History Cardiac Medical History: Reports: Hx DVT - RUE s/p port placement Pulmonary Medical History: Reports: Hx Asthma, Hx Bronchitis - once in past per patient, Hx Pneumonia - 2014 Neurological Medical History: Endocrine Medical History: Denies: Hx Diabetes Mellitus Type 1, Hx Diabetes Mellitus Type 2 Renal/ Medical History: Denies: Hx Peritoneal Dialysis GI Medical History: Musculoskeletal Medical History: Reports Hx Musculoskeletal Trauma Psychiatric Medical History: Reports: Hx Anxiety, Hx Depression Past Surgical History: Reports: Hx Cholecystectomy - 06/28/2015, Hx Vascular Surgery - port put in December,, Other - Port-A-Cath in right upper chest - Immunizations Immunizations up to date: Yes Hx Diphtheria, Pertussis, Tetanus Vaccination: Yes Review of Systems - Review of Systems Constitutional: See HPI EENT: No symptoms reported Cardiovascular: See HPI Respiratory: See HPI Gastrointestinal: No symptoms reported Genitourinary: No symptoms reported Female Genitourinary: No symptoms reported Musculoskeletal: See HPI Skin: No symptoms reported Hematologic/Lymphatic: No symptoms reported Neurological/Psychological: No symptoms reported Physical Exam - Vital signs Vitals: Temp Pulse Resp BP Pulse Ox 98.0 F 94 22 H 124/77 96 05/29/18 07:07 05/29/18 07:07 05/29/18 07:07 05/29/18 07:07 05/29/18 07:07 - Notes Notes: PHYSICAL EXAMINATION: Reviewed vital signs and charting by RN GENERAL: Alert, interacts well. No acute distress. HEAD: Normocephalic, atraumatic. EYES: Pupils equal, round. Extraocular movements intact. ENT: Oral mucosa moist NECK: Full range of motion. Supple. Trachea midline. LUNGS: Clear to auscultation bilaterally, no wheezes, rales, or rhonchi. No respiratory distress. HEART: Regular rate and rhythm. No murmur ABDOMEN: soft, non-tender. Non-distended. Bowel sounds present in all 4 quadrants. no McBurney's point tenderness, no James sign. EXTREMITIES: Moves all 4 extremities spontaneously. No edema, No cyanosis. BACK: B lumbar/ thoracic flank pain NEUROLOGICAL: Alert and oriented x3. Normal speech. PSYCH: Normal affect, normal mood. SKIN: Warm, dry, normal turgor. No rashes or lesions noted. Course - Re-evaluation Re-evalutation: 05/29/18 07:56 Very well-appearing 23-year-old female presents with a typical sickle cell pain episode. She has not had Dilaudid since December 2017 so will be very judicious with pain control. We will get a CBC and a reticulocyte panel. 05/29/18 10:46 CBC resulted in a hemoglobin of 10.8, absolute reticulocyte and reticulocyte counts were elevated but stable based on previous trend. Patient received 3 doses of Dilaudid: 0.25 mg IV, 0.5 mg IV, 0.5 milligrams IV and now states that her pain is completely under control. Patient is having no shortness of breath or chest pain. Her flank pain has mostly resolved. She is safe and stable to [facility]. - Vital Signs Vital signs: Temp Pulse Resp BP Pulse Ox 98.0 F 94 22 H 127/68 H 100 05/29/18 07:07 05/29/18 07:07 05/29/18 07:07 05/29/18 10:01 05/29/18 10:01 - Laboratory Result Diagrams: 05/29/18 08:08 Laboratory results interpreted by me: 05/29/18 05/29/18 08:08 09:36 WBC 12.9 H RBC 2.66 L Hgb 10.8 L Hct 29.7 L MCV 112 H MCH 40.7 H MCHC 36.5 H RDW 14.5 H Seg Neuts % (Manual) 89 H Lymphocytes % (Manual) 6 L Abs Neuts (Manual) 11.5 H Retic Count (auto) 6.93 H Absolute Retic 0.185 H Urine Blood LARGE H Urine Urobilinogen 2.0 H Discharge - Discharge Clinical Impression: Sickle cell pain crisis Condition: Good Disposition: HOME, SELF-CARE Instructions: Ice Packs ([facility]), Low Back Pain ([facility]), Oral Narcotic Medication ([facility]), Sickle Cell Crisis ([facility]) Additional Instructions: You are seen in the emergency department this morning for an acute sickle cell pain episode. You are doing a great job with your home regimen and please continue to take your medications. Please follow-up with Dr. Riya victor as needed if you feel like you need to modify your plan. If you develop shortness of breath, chest pain, acute pain, pass out, or have any other concerning symptoms please immediately return to the emergency department. Referrals: JOIE BAUM MD [Primary Care Provider] - Follow up as needed
[2018-05-29] MEDS ORDERED: HYDROMORPHONE HCL INJ/PF 2 MG/ML AMPULE IV ONE ×3 (07:57→09:54)
[2018-05-29 08:35] LABS: ABSOLUTE RETICS # 0.185 10^6/uL (0.028-0.122); HEMATOCRIT 29.7 % (36.0-47.0); HEMOGLOBIN 10.8 g/dL (12.0-15.5); MEAN CORPUSCULAR HEMOGLOBIN 40.7 pg (27.0-33.4); MEAN CORPUSCULAR HGB CONC 36.5 g/dL (32.0-36.0); PLATELET COUNT 325 10^3/uL (150-450); RED BLOOD COUNT 2.66 10^6/uL (3.72-5.28); RED CELL DISTRIBUTION WIDTH 14.5 % (11.5-14.0); RETICULOCYTE COUNT (AUTO) 6.93 % (0.66-2.85); WHITE BLOOD COUNT 12.9 10^3/uL (4.0-10.5)
[2018-05-29] MEDS ORDERED: DIPHENHYDRAMINE HCL 50 MG/ML VIAL IV ONE (08:41)
[2018-05-29] MEDS ORDERED: NORMAL SALINE 1000 ML 1,000 ML IV ONE (08:41)
[2018-05-29 08:52] LABS: ABSOLUTE LYMPHOCYTES# (MANUAL) 0.8 10^3/uL (0.5-4.7); ABSOLUTE MONOCYTES # (MANUAL) 0.4 10^3/uL (0.1-1.4); ABSOLUTE NEUTROPHILS# (MANUAL) 11.5 10^3/uL (1.7-8.2); BASOPHILS % (MANUAL) 0 % (0-2); EOSINOPHILS % (MANUAL) 2 % (0-6); LYMPHOCYTES % (MANUAL) 6 % (13-45); MONOCYTES % (MANUAL) 3 % (3-13); NUCLEATED RED BLOOD CELLS 1 /100 WBC (0); SEGMENTED NEUTROPHILS % (MAN) 89 % (42-78); TOTAL CELLS COUNTED 100
[2018-05-29 08:53] LABS: POLYCHROMASIA 1+
[2018-05-29 08:54] LABS: ANISOCYTOSIS SLIGHT; MEAN CORPUSCULAR VOLUME 112 fl (80-97); PAPPENHEIMER BODIES PRESENT; PLATELET COMMENT ADEQUATE; POIKILOCYTOSIS 1+; SICKLE RED CELLS 1+; TARGET CELLS 1+
[2018-05-29 10:08] LABS: APPEARANCE,URINE CLEAR; BILIRUBIN,URINE NEGATIVE (NEGATIVE); COLOR,URINE YELLOW; GLUCOSE, URINE NEGATIVE (NEGATIVE); KETONES,URINE NEGATIVE (NEGATIVE); LEUKOCYTE ESTERASE,URINE NEGATIVE (NEGATIVE); NITRITE,URINE NEGATIVE (NEGATIVE); PROTEIN,URINE NEGATIVE (NEGATIVE)
[2018-05-29] MEDS ORDERED: HEPARIN SOD (PORCINE) 1,000 UNIT/ML 1 ML VIAL IV ONE (11:06)
[2018-05-29 11:16] VITALS: BP 120/70
[2018-06-01 15:35] LABS: PATH REVIEW PATHOLOGIST REVIEWED
== END 2018-05-29 11:26 | disposition home or self-care (01) ==
LOC: ER 06:59
DX: D57.00 Hb-SS disease with crisis, unspecified (principal); M54.5 Low back pain; Z79.899 Other long term (current) drug therapy; Z79.01 Long term (current) use of anticoagulants
CPT/HCPCS: 36591; 96376; 99283; 96361; 96374; 96375; 36415; 85025; 85045; 81001; J1200; J1170; J7030

== ENCOUNTER 2018-06-13 12:15 | Emergency (ER) | payer MEDICAID ==
[2018-06-13] MEDS ORDERED: OXYCODONE HCL IR 5 MG TABLET PO ONE (12:50)
--- NOTE | 2018-06-13 12:51 | ER Document Report ---
ED Medical Screen (RME) - General Chief Complaint: Sickle Cell Crisis Stated Complaint: CHEST PAIN Time Seen by Provider: 06/13/18 12:48 Primary Care Provider: JOIE MOREIRA MD [Primary Care Provider] - Follow up as needed Notes: RAPID MEDICAL EVALUATION DISCLOSURE I have seen this patient as part of a Rapid Medical Evaluation and, if applicable, placed any initially appropriate orders. The patient will be seen and fully evaluated, including a full history and physical exam, by a provider (in Main ED or Fast Track) when a room becomes available. 23-year-old female PMH sickle cell disease here with complaints of chest pain and low back pain ongoing for the past 3-4 days. She has been taking oxycodone for the pain. She also takes hydroxyurea and folic acid for her sickle cell. She reports this is the usual areas her pain is located when she has a sickle cell pain crisis. TRAVEL OUTSIDE OF THE [place] IN LAST 30 DAYS: No - Related Data Allergies/Adverse Reactions: morphine Allergy (Severe, Verified 06/13/18 12:16) RASH,SWELLING jacob peppers Adverse Reaction (Severe, Uncoded 06/13/18 12:16) throat closes Past Medical History - Social History Family history: Reviewed & Not Pertinent, Other - Pt was adopted. Does not know family history - Past Medical History Cardiac Medical History: Reports: Hx DVT - RUE s/p port placement Pulmonary Medical History: Reports: Hx Asthma, Hx Bronchitis - once in past per patient, Hx Pneumonia - 2014 Neurological Medical History: Endocrine Medical History: Denies: Hx Diabetes Mellitus Type 1, Hx Diabetes Mellitus Type 2 Renal/ Medical History: Denies: Hx Peritoneal Dialysis GI Medical History: Musculoskeltal Medical History: Reports Hx Musculoskeletal Trauma Psychiatric Medical History: Reports: Hx Anxiety, Hx Depression Past Surgical History: Reports: Hx Cholecystectomy - 06/28/2015, Hx Vascular Surgery - port put in December,, Other - Port-A-Cath in right upper chest - Immunizations Immunizations up to date: Yes Hx Diphtheria, Pertussis, Tetanus Vaccination: Yes History of Influenza Vaccine for 12/2016 - 05/2017 Season: Yes Influenza Administration Date for 12/2016 - 05/2017 Season: 03/11/17 Physical Exam - Vital signs Vitals: Temp Pulse Resp BP Pulse Ox 98.1 F 95 18 133/47 H 98 06/13/18 12:19 06/13/18 12:19 06/13/18 12:19 06/13/18 12:19 06/13/18 12:19 Course - Vital Signs Vital signs: Temp Pulse Resp BP Pulse Ox 98.1 F 95 18 133/47 H 98 06/13/18 12:19 06/13/18 12:19 06/13/18 12:19 06/13/18 12:19 06/13/18 12:19 Doctor's Discharge - Discharge Referrals: JOIE MOREIRA MD [Primary Care Provider] - Follow up as needed
[2018-06-13 14:23] LABS: CHLORIDE 105 mmol/L (98-107); POTASSIUM 4.3 mmol/L (3.6-5.0); SODIUM 140.4 mmol/L (137-145)
[2018-06-13 14:24] LABS: ABSOLUTE BASOPHILS # (AUTO) 0.1 10^3/uL (0.0-0.2); ABSOLUTE EOSINOPHILS # (AUTO) 0.3 10^3/uL (0.0-0.6); ABSOLUTE LYMPHOCYTES (AUTO) 2.2 10^3/uL (0.5-4.7); ABSOLUTE MONOCYTES (AUTO) 1.2 10^3/uL (0.1-1.4); ABSOLUTE NEUT (AUTO) 7.1 10^3/uL (1.7-8.2); ABSOLUTE RETICS # 0.201 10^6/uL (0.028-0.122); BASOPHILS % (AUTO) 1.4 % (0-2); EOSINOPHILS % (AUTO) 2.7 % (0-6); HEMATOCRIT 29.1 % (36.0-47.0); HEMOGLOBIN 10.8 g/dL (12.0-15.5); LYMPHOCYTES % (AUTO) 19.9 % (13-45); MEAN CORPUSCULAR HEMOGLOBIN 40.2 pg (27.0-33.4); PLATELET COUNT 418 10^3/uL (150-450); RED CELL DISTRIBUTION WIDTH 14.2 % (11.5-14.0); RETICULOCYTE COUNT (AUTO) 7.47 % (0.66-2.85); TOTAL CELLS COUNTED % (AUTO) 100 %; WHITE BLOOD COUNT 10.9 10^3/uL (4.0-10.5)
[2018-06-13 14:35] LABS: ALANINE AMINOTRANSFERASE 8 U/L (9-52); ALBUMIN 4.9 g/dL (3.5-5.0); ALKALINE PHOSPHATASE 69 U/L (38-126); ANION GAP 12 (5-19); ASPARTATE AMINO TRANSFERASE 27 U/L (14-36); BILIRUBIN,DIRECT 0.4 mg/dL (0.0-0.4); BILIRUBIN,TOTAL 4.9 mg/dL (0.2-1.3); BLOOD UREA NITROGEN 6 mg/dL (7-20); CARBON DIOXIDE 23 mmol/L (22-30); GLUCOSE 90 mg/dL (75-110); TOTAL PROTEIN 8.2 g/dL (6.3-8.2)
[2018-06-13 14:42] LABS: MEAN CORPUSCULAR HGB CONC 37.3 g/dL (32.0-36.0)
--- NOTE | 2018-06-13 14:43 | RADIOLOGY REPORT (SQ) ---
EXAM DESCRIPTION: CHEST 2 VIEWS COMPLETED DATE/TIME: 06/13/2018 2:16 pm REASON FOR STUDY: 21; CP; h/o sickle cell disease COMPARISON: 12/20/2017 EXAM PARAMETERS: NUMBER OF VIEWS: two views TECHNIQUE: Digital Frontal and Lateral radiographic views of the chest acquired. RADIATION DOSE: NA LIMITATIONS: none FINDINGS: LUNGS AND PLEURA: No opacities, masses or pneumothorax. No pleural effusion. MEDIASTINUM AND HILAR STRUCTURES: No masses or contour abnormalities. HEART AND VASCULAR STRUCTURES: Heart normal size. No evidence for failure. BONES: No acute findings. HARDWARE: Stable position and appearance of a vascular access port. OTHER: No other significant finding. IMPRESSION: NO ACUTE RADIOGRAPHIC FINDING IN THE CHEST. TECHNICAL DOCUMENTATION: JOB ID: [id number] [employer]- All Rights Reserved Reading location - IP/workstation name: [email or web address]
[2018-06-13 14:44] LABS: MEAN CORPUSCULAR VOLUME 108 fl (80-97)
[2018-06-13] MEDS ORDERED: HYDROMORPHONE HCL INJ/PF 2 MG/ML AMPULE IV ONE (14:46)
[2018-06-13] MEDS ORDERED: DIPHENHYDRAMINE HCL 50 MG/ML VIAL IV ONE (14:59)
[2018-06-13] MEDS ORDERED: ONDANSETRON HCL INJ/PF 4 MG/2 ML SDV IV ONE (14:59)
--- NOTE | 2018-06-13 15:02 | ER Document Report ---
ED General - General Chief Complaint: Sickle Cell Crisis Stated Complaint: CHEST PAIN Time Seen by Provider: 06/13/18 12:48 Primary Care Provider: JOIE MOREIRA MD [Primary Care Provider] - Follow up as needed Notes: Patient is a 23-year-old female with past medical history as recorded including sickle cell disease who presents today with the onset 5 days ago of some anterior chest pain and low back pain. Patient states that this is her normal location of her pain. She denies any shortness of breath, fevers, or cough. She denies any calf pain or leg swelling. She denies any recent trips or travel. She denies any dysuria, weakness or numbness of the legs. 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 No other clotting disorders present. TRAVEL OUTSIDE OF THE [place] IN LAST 30 DAYS: No - HPI Onset: Other - Related Data Allergies/Adverse Reactions: morphine Allergy (Severe, Verified 06/13/18 12:16) RASH,SWELLING jacob peppers Adverse Reaction (Severe, Uncoded 06/13/18 12:16) throat closes Past Medical History - Social History Smoking Status: Former Smoker Family History: Reviewed & Not Pertinent, Other - Sickle cell disease and sickle cell trait, asthma Patient has suicidal ideation: No Patient has homicidal ideation: No - Past Medical History Cardiac Medical History: Reports: Hx DVT - RUE s/p port placement Pulmonary Medical History: Reports: Hx Asthma, Hx Bronchitis - once in past per patient, Hx Pneumonia - 2014 Neurological Medical History: Endocrine Medical History: Denies: Hx Diabetes Mellitus Type 1, Hx Diabetes Mellitus Type 2 Renal/ Medical History: Denies: Hx Peritoneal Dialysis GI Medical History: Musculoskeletal Medical History: Reports Hx Musculoskeletal Trauma Psychiatric Medical History: Reports: Hx Anxiety, Hx Depression Past Surgical History: Reports: Hx Cholecystectomy - 06/28/2015, Hx Vascular Surgery - port put in December,, Other - Port-A-Cath in right upper chest - Immunizations Immunizations up to date: Yes Hx Diphtheria, Pertussis, Tetanus Vaccination: Yes Review of Systems - Review of Systems Constitutional: denies: Fever EENT: denies: Eye discharge, Nose discharge Cardiovascular: Chest pain. denies: Palpitations Respiratory: denies: Short of breath Gastrointestinal: denies: Vomiting Genitourinary: denies: Dysuria Musculoskeletal: denies: Leg swelling Skin: Other - no hives. denies: Rash Neurological/Psychological: Other - no slurred speech -: Yes All other systems reviewed and negative Physical Exam - Vital signs Vitals: Temp Pulse Resp BP Pulse Ox 98.1 F 95 18 133/47 H 98 06/13/18 12:19 06/13/18 12:19 06/13/18 12:19 06/13/18 12:19 06/13/18 12:19 Notes: Reviewed vital signs and nursing note as charted by RN. CONSTITUTIONAL: Alert and oriented and responds appropriately to questions. Well-appearing; well-nourished HEAD: Normocephalic; atraumatic EYES: PERRL ENT: Normal nose; no rhinorrhea; moist mucous membranes; pharynx without lesions noted NECK: Supple without meningismus; non-tender CARD: Regular rate and rhythm; no murmurs; symmetric distal pulses RESP: Normal chest excursion without splinting or tachypnea; no tenderness to palpation of the anterior chest wall. No crepitus, erythema, or swelling noted around the Port-A-Cath site placement; breath sounds clear and equal bilaterally ABD/GI: Normal bowel sounds; non-distended; soft, non-tender BACK: The back appears normal and is non-tender to palpation EXT: Normal ROM in all joints; non-tender to palpation; no edema SKIN: No acute lesions noted NEURO: CN 2-12 intact; 5/5 bilateral upper and lower extremity strength with sensation intact to light touch PSYCH: The patient's mood and manner are appropriate. Grooming and personal hygiene are appropriate Course - Re-evaluation Re-evalutation: Given the above history and physical examination, we will obtain basic labs, reticulocyte count, x-ray of the chest, EKG, and reassess. Patient denies any and all shortness of breath, cough, calf pain or leg swelling. She is already on Xarelto. She states that this is the normal location of her pain. Patient has no lower extremity weakness, incontinence, or fevers. I do believe pulmonary embolism or acute spine compression, discitis, or epidural abscess are to be extremely unlikely. 06/13/18 15:01 Imaging and labs as recorded. Vital signs are stable. She is not tachycardic or hypoxic. Patient is stating she is here secondary to running out of her Dilaudid tablets. X-ray of the chest as recorded. I do believe acute chest syndrome to be extremely unlikely at this time. EKG shows a heart of 78, normal sinus rhythm, normal axis, no ST elevation or depression. 06/13/18 15:13 Patient's pain is improved. Vital signs are stable. No hypoxia or tachycardia. Patient will be discharged home with strict return precautions and follow-up with her land acquisition specialist here locally. - Vital Signs Vital signs: Temp Pulse Resp BP Pulse Ox 98.1 F 95 18 133/47 H 98 06/13/18 12:19 06/13/18 12:19 06/13/18 12:19 06/13/18 12:19 06/13/18 12:19 - Laboratory Result Diagrams: 06/13/18 13:56 06/13/18 13:56 Laboratory results interpreted by me: 06/13/18 06/13/18 13:56 13:56 WBC 10.9 H RBC 2.70 L Hgb 10.8 L Hct 29.1 L MCV 108 H D MCH 40.2 H MCHC 37.3 H RDW 14.2 H Retic Count (auto) 7.47 H Absolute Retic 0.201 H BUN 6 L Creatinine 0.46 L Total Bilirubin 4.9 H ALT 8 L Discharge - Discharge Clinical Impression: Sickle cell pain crisis Chest pain Qualifiers: Chest pain type: unspecified Qualified Code(s): R07.9 - Chest pain, unspecified Condition: Good Disposition: HOME, SELF-CARE Additional Instructions: Come back immediately for any increased pain, change in location or quality of pain, fevers, shortness of breath, calf pain or leg swelling, or any other acute problems. Please make sure that you follow-up with your specialist as we have discussed. Referrals: JOIE MOREIRA MD [Primary Care Provider] - Follow up as needed
[2018-06-13] MEDS ORDERED: NORMAL SALINE 1000 ML 1,000 ML IV ONE (15:37)
--- NOTE | 2018-06-13 17:22 | EKG REPORT ---
SEVERITY:- NORMAL ECG - SINUS RHYTHM : Confirmed by: Kris Baker MD 13-Jun-2018 17:22:23
[2018-06-13 17:29] VITALS: BP 102/67
== END 2018-06-13 17:39 | disposition home or self-care (01) ==
LOC: ER 12:15
DX: D57.00 Hb-SS disease with crisis, unspecified (principal); R07.9 Chest pain, unspecified; M54.5 Low back pain; J45.909 Unspecified asthma, uncomplicated; Z79.01 Long term (current) use of anticoagulants; Z86.718 Personal history of other venous thrombosis and embolism; Z88.5 Allergy status to narcotic agent; Z87.891 Personal history of nicotine dependence
CPT/HCPCS: 93005; 36591; 99284; 96361; 96374; 96375; 36415; 85025; 85045; 80053; 71046; 93010; J1200; J1170; J2405; J3490; J7030

== ENCOUNTER 2018-06-13 22:45 | Inpatient (IN) | payer MEDICAID ==
[2018-06-14] MEDS ORDERED: NORMAL SALINE 1000 ML 1,000 ML IV ONE (00:12)
[2018-06-14] MEDS ORDERED: HYDROMORPHONE HCL INJ/PF 2 MG/ML AMPULE IV ONE ×3 (00:12→04:35)
[2018-06-14] MEDS ORDERED: DIPHENHYDRAMINE HCL 50 MG/ML VIAL IV ONE (00:13)
--- NOTE | 2018-06-14 00:16 | ER Document Report ---
ED General - General Chief Complaint: Pain Stated Complaint: CHEST/BACK PAIN Time Seen by Provider: 06/14/18 00:04 Primary Care Provider: JOIE BAUM MD [Primary Care Provider] - Follow up as needed Notes: Patient is a 23-year-old female with a history of sickle cell disease who presents with complaint of chest pain. She was seen earlier today. She says she has been having some chest pain since Friday but became much worse today. She was seen earlier by Dr. Rodarte. Her pain improved and she decided to go home. She says that she went home and rested and then start having severe pain again. She says is across both sides of her rib cage will bit worse than left. Worse when she is she breathes or moves or twists. Says feels like the pain is in her rib cage itself. No abdominal pain. No fevers. No vomiting. She had acute chest syndrome once in 2015. She said this does not feel similar to when she had acute chest syndrome. She has had a previous cholecystectomy. She still has her spleen. She is followed by Dr. Baum. She does have oral Dilaudid which she takes at home for pain. She is to come very frequently, but she has not really been here since November until now. Patient says that she is been taking good care of herself and that her sickle cell is been much better controlled over the last 6 months. Patient currently on blood thinners due to history of clotting of her port. TRAVEL OUTSIDE OF THE [place] IN LAST 30 DAYS: No - Related Data Allergies/Adverse Reactions: morphine Allergy (Severe, Verified 06/13/18 23:00) RASH,SWELLING jacob peppers Adverse Reaction (Severe, Uncoded 06/13/18 23:00) throat closes Past Medical History - Social History Smoking Status: Never Smoker Frequency of alcohol use: None Drug Abuse: None Family History: Reviewed & Not Pertinent, Other - Sickle cell disease and sickle cell trait, asthma - Past Medical History Cardiac Medical History: Reports: Hx DVT - RUE s/p port placement Pulmonary Medical History: Reports: Hx Asthma, Hx Bronchitis - once in past per patient, Hx Pneumonia - 2014 Neurological Medical History: Endocrine Medical History: Denies: Hx Diabetes Mellitus Type 1, Hx Diabetes Mellitus Type 2 Renal/ Medical History: Denies: Hx Peritoneal Dialysis GI Medical History: Musculoskeletal Medical History: Reports Hx Musculoskeletal Trauma Psychiatric Medical History: Reports: Hx Anxiety, Hx Depression Past Surgical History: Reports: Hx Cholecystectomy - 06/28/2015, Hx Vascular Surgery - port put in December,, Other - Port-A-Cath in right upper chest - Immunizations Immunizations up to date: Yes Hx Diphtheria, Pertussis, Tetanus Vaccination: Yes Review of Systems - Review of Systems Notes: My Normal Review Basic REVIEW OF SYSTEMS: CONSTITUTIONAL : Denies fever, chills, or sweats. Denies recent illness. EENT: Denies eye, ear, throat, or mouth pain or symptoms. Denies nasal or sinus congestion. CARDIOVASCULAR: Some chest pain RESPIRATORY: Denies cough, cold, or chest congestion. Denies shortness of breath, difficulty breathing, or wheezing. GASTROINTESTINAL: Denies abdominal pain. Denies nausea, vomiting, or diarrhea. GENITOURINARY: Denies difficulty urinating, painful urination, burning, frequency, or blood in urine. MUSCULOSKELETAL: Denies neck or back pain or joint pain or swelling. SKIN: Denies rash or skin lesions. HEMATOLOGIC : Sickle cell disease NEUROLOGICAL: Denies altered mental status or loss of consciousness. Denies headache. Denies weakness or paralysis or loss of use of either side. Denies problems with gait or speech. Denies sensory or motor loss. ALL OTHER SYSTEMS REVIEWED AND NEGATIVE. Physical Exam - Vital signs Vitals: Temp Pulse Resp BP Pulse Ox 98.7 F 78 18 119/66 99 06/13/18 23:05 06/13/18 23:05 06/13/18 23:05 06/13/18 23:05 06/13/18 23:05 - Notes Notes: General Appearance: Well nourished, alert, cooperative, no acute distress, mild to moderate obvious discomfort. Vitals: reviewed, See vital signs table. Head: no swelling or tenderness to the head Eyes: PERRL, EOMI, Conjuctiva clear Mouth: No decreasd moisture Throat: No tonsillar inflammation, No airway obstruction, No lymphadenopathy Chest wall: Pain is easily reproducible to palpation of the rib cage bilaterally. Neck: Supple, no neck tenderness, No thyromegaly Lungs: No wheezing, No rales, No rhonci, No accessory muscle use, good air exchange bilaterally. Heart: Normal rate, Regular rythm, No murmur, no rub Abdomen: Normal BS, soft, No rigidity, No abdominal tenderness, No guarding, no rebound, Extremities: good pulses in all extremities, no swelling or tenderness in the extremities, no edema. Skin: warm, dry, appropriate color, no rash Neuro: speech clear, oriented x 3, normal affect, responds appropriately to questions. Course - Re-evaluation Re-evalutation: 06/14/18 03:09 Patient still having some pain. Will re-dose her pain medicine again and then reassess. Clinically she looks well. She is not in any distress. Breathing remains normal. Vital signs remained normal. 06/14/18 04:44 Patient is still having recurring pain. I did talk to her about admission and she is agreeable to it. I think admission is appropriate being that she is failed outpatient treatment and had to return within 24 hours due to her ongoing pain. I do not suspect acute chest syndrome as her lung [place] are clear, she had a chest x-ray with a lung last 24 hours which is normal, she has no fever, she has no increased respiratory effort. Her pain seems very musculoskeletal in the rib cage is is easily reproducible palpation. I do not suspect PE as the patient is already on anticoagulation, pain is easily reproducible palpation, and her oxygenation and heart rate are normal. I did discuss the case with Dr. Simmons, hospitalist, who agrees to come evaluate the patient for admission. Dictation of this chart was performed using voice recognition software; therefore, there may be some unintended grammatical errors. - Vital Signs Vital signs: Temp Pulse Resp BP Pulse Ox 98.7 F 78 12 98/56 L 98 06/13/18 23:05 06/13/18 23:05 06/14/18 03:01 06/14/18 03:01 06/14/18 03:01 - Laboratory Result Diagrams: 06/14/18 00:55 06/14/18 00:55 Laboratory results interpreted by me: 06/14/18 06/14/18 00:55 00:55 RBC 2.45 L Hgb 9.9 L Hct 26.3 L MCV 107 H MCH 40.3 H MCHC 37.5 H Retic Count (auto) 6.87 H Absolute Retic 0.169 H Chloride 112 H Total Bilirubin 3.7 H - EKG Interpretation by Me Additional EKG results interpreted by me: 06/14/18 01:45 EKG is reviewed and interpreted by me. EKG shows sinus rhythm with a rate of [address] segment elevation or depression. No ischemic T wave inversions. IL interval, QRS duration, QT intervals are within normal range. Old EKG for comparison is from June 13, 2018. Discharge - Discharge Clinical Impression: Sickle cell pain crisis Chest pain Qualifiers: Chest pain type: unspecified Qualified Code(s): R07.9 - Chest pain, unspecified Condition: Stable Disposition: ADMITTED OBSERVATION Admitting Provider: Hospitalist Unit Admitted: Telemetry Referrals: JOIE BAUM MD [Primary Care Provider] - Follow up as needed
[2018-06-14 01:11] LABS: ABSOLUTE RETICS # 0.169 10^6/uL (0.028-0.122); HEMATOCRIT 26.3 % (36.0-47.0); HEMOGLOBIN 9.9 g/dL (12.0-15.5); MEAN CORPUSCULAR HEMOGLOBIN 40.3 pg (27.0-33.4); MEAN CORPUSCULAR VOLUME 107 fl (80-97); PLATELET COUNT 393 10^3/uL (150-450); RED BLOOD COUNT 2.45 10^6/uL (3.72-5.28); RED CELL DISTRIBUTION WIDTH 13.9 % (11.5-14.0); RETICULOCYTE COUNT (AUTO) 6.87 % (0.66-2.85); WHITE BLOOD COUNT 10.5 10^3/uL (4.0-10.5)
[2018-06-14 01:31] LABS: ALANINE AMINOTRANSFERASE 19 U/L (9-52); ALBUMIN 4.1 g/dL (3.5-5.0); ALKALINE PHOSPHATASE 75 U/L (38-126); ANION GAP 6 (5-19); ASPARTATE AMINO TRANSFERASE 23 U/L (14-36); BILIRUBIN,DIRECT 0.4 mg/dL (0.0-0.4); BILIRUBIN,TOTAL 3.7 mg/dL (0.2-1.3); BLOOD UREA NITROGEN 9 mg/dL (7-20); CALCIUM 9.2 mg/dL (8.4-10.2); CARBON DIOXIDE 25 mmol/L (22-30); CHLORIDE 112 mmol/L (98-107); GLUCOSE 96 mg/dL (75-110); POTASSIUM 4.1 mmol/L (3.6-5.0); SODIUM 143.4 mmol/L (137-145); TOTAL PROTEIN 7.1 g/dL (6.3-8.2)
[2018-06-14 02:08] LABS: MEAN CORPUSCULAR HGB CONC 37.5 g/dL (32.0-36.0)
[2018-06-14 02:10] LABS: ABSOLUTE LYMPHOCYTES# (MANUAL) 3.4 10^3/uL (0.5-4.7); ABSOLUTE MONOCYTES # (MANUAL) 0.5 10^3/uL (0.1-1.4); ABSOLUTE NEUTROPHILS# (MANUAL) 6.1 10^3/uL (1.7-8.2); BASOPHILS % (MANUAL) 1 % (0-2); EOSINOPHILS % (MANUAL) 4 % (0-6); LYMPHOCYTES % (MANUAL) 32 % (13-45); MONOCYTES % (MANUAL) 5 % (3-13); NUCLEATED RED BLOOD CELLS 2 /100 WBC (0); SEGMENTED NEUTROPHILS % (MAN) 58 % (42-78); TOTAL CELLS COUNTED 100; TOXIC GRANULATION 1+; TOXIC VACUOLATION PRESENT
[2018-06-14 02:12] LABS: POIKILOCYTOSIS 1+
[2018-06-14 02:13] LABS: OVALOCYTES SLIGHT; SCHISTOCYTES SLIGHT
[2018-06-14 02:14] LABS: PLATELET COMMENT ADEQUATE; SICKLE RED CELLS 1+; TARGET CELLS 1+; TEAR DROP CELLS 1+
[2018-06-14] MEDS ORDERED: HYDROMORPHONE HCL INJ/PF 2 MG/ML AMPULE SUBCUT PRN (04:44)
[2018-06-14] MEDS ORDERED: IPRATROPIUM/ALBUTEROL 0.5-2.5 MG/3 ML AMPUL NEB PRN (04:47)
[2018-06-14] MEDS ORDERED: ACETAMINOPHEN 325 MG TABLET PO PRN (04:47)
--- NOTE | 2018-06-14 06:10 | PDOC H&P ---
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 Presents with 5 days of increasing chest pain prompting evaluation in the emergency room 12 hours ago but was improved and discharged home only to return with left-sided chest wall pain worsened by deep breathing and movement. She denies palpitations or shortness of breath. On reevaluation she is found to have a drop of her hemoglobin of 1 g she receives IV Dilaudid, normal saline and referred to the hospitalist for admission. Patient denies recent infectious contacts or fever. Past Medical History Cardiac Medical History: Reports: DVT - RUE s/p port placement Pulmonary Medical History: Reports: Asthma, Bronchitis - once in past per patient, Pneumonia - 2014 Neurological Medical History: Endocrine Medical History: Denies: Diabetes Mellitus Type 1, Diabetes Mellitus Type 2 Renal/ Medical History: GI Medical History: Musculoskeltal Medical History: Psychiatric Medical History: Reports: Depression Hematology: Reports: Anemia, Sickle Cell Disease Denies: Bleeding Tendencies Past Surgical History Past Surgical History: Reports: Cholecystectomy - 06/28/2015, Vascular Surgery - port put in December,, Other - Port-A-Cath in right upper chest Social History Information Source: Patient Smoking Status: Never Smoker Frequency of Alcohol Use: None Hx Recreational Drug Use: No Drugs: None Hx Prescription Drug Abuse: No - Advance Directive Resuscitation Status: Full Code Family History Family History: Other - Sickle cell disease and sickle cell trait, asthma Parental Family History Reviewed: Yes Children Family History Reviewed: Yes Sibling(s) Family History Reviewed.: Yes Medication/Allergy Home Medications: Folic Acid 0.4 mg PO DAILY #14 tablet 12/18/17 Folic Acid 20 mg PO DAILY #10 capsule 12/18/17 Allergies/Adverse Reactions: morphine Allergy (Severe, Verified 06/13/18 23:00) RASH,SWELLING jacob peppers Adverse Reaction (Severe, Uncoded 06/13/18 23:00) throat closes Review of Systems Constitutional: PRESENT: as per HPI. ABSENT: fever(s), headache(s), night sweat s, weakness Eyes: ABSENT: visual disturbances Ears: ABSENT: hearing changes Cardiovascular: PRESENT: as per HPI, chest pain, dyspnea on exertion. ABSENT: edema, orthropnea, palpitations Respiratory: ABSENT: cough, hemoptysis Gastrointestinal: ABSENT: abdominal pain, constipation, diarrhea, hematemesis, hematochezia, nausea, vomiting Genitourinary: ABSENT: dysuria, hematuria Musculoskeletal: PRESENT: as per HPI, back pain Integumentary: ABSENT: rash, wounds Neurological: ABSENT: abnormal gait, abnormal speech, confusion, dizziness, focal weakness, syncope Psychiatric: ABSENT: anxiety, depression, homidical ideation, suicidal ideation Endocrine: ABSENT: cold intolerance, heat intolerance, polydipsia, polyuria Hematologic/Lymphatic: PRESENT: as per HPI. ABSENT: easy bleeding, easy bruising Physical Exam Vital Signs: Temp Pulse Resp BP Pulse Ox 98.7 F 78 12 102/56 L 97 06/13/18 23:05 06/13/18 23:05 06/14/18 05:30 06/14/18 05:30 06/14/18 05:30 Intake & Output 06/12/18 06/13/18 06/14/18 11:59 11:59 11:59 Weight 65.2 kg General appearance: PRESENT: no acute distress, well-developed, well-nourished Head exam: PRESENT: atraumatic, normocephalic Eye exam: PRESENT: conjunctiva pink, EOMI, PERRLA. ABSENT: scleral icterus Ear exam: PRESENT: normal external ear exam Mouth exam: PRESENT: moist, tongue midline Neck exam: ABSENT: carotid bruit, JVD, lymphadenopathy, thyromegaly Respiratory exam: PRESENT: clear to auscultation samaria. ABSENT: rales, rhonchi, wheezes Cardiovascular exam: PRESENT: RRR. ABSENT: diastolic murmur, rubs, systolic murmur Pulses: PRESENT: normal dorsalis pedis pul Vascular exam: PRESENT: normal capillary refill GI/Abdominal exam: PRESENT: normal bowel sounds, soft. ABSENT: distended, guarding, mass, organolmegaly, rebound, tenderness Rectal exam: PRESENT: deferred Extremities exam: PRESENT: full ROM. ABSENT: calf tenderness, clubbing, pedal edema Neurological exam: PRESENT: alert, awake, oriented to person, oriented to place, oriented to time, oriented to situation, CN II-XII grossly intact. ABSENT: motor sensory deficit Psychiatric exam: PRESENT: appropriate affect, normal mood. ABSENT: homicidal ideation, suicidal ideation Skin exam: PRESENT: dry, intact, warm. ABSENT: cyanosis, rash Results Laboratory Results: 06/14/18 00:55 06/14/18 00:55 06/14/18 06/14/18 00:55 00:55 WBC 10.5 RBC 2.45 L Hgb 9.9 L Hct 26.3 L MCV 107 H MCH 40.3 H MCHC 37.5 H RDW 13.9 Plt Count 393 Seg Neutrophils % Not Reportable Lymphocytes % Not Reportable Monocytes % Not Reportable Eosinophils % Not Reportable Basophils % Not Reportable Absolute Neutrophils Not Reportable Absolute Lymphocytes Not Reportable Absolute Monocytes Not Reportable Absolute Eosinophils Not Reportable Absolute Basophils Not Reportable Retic Count (auto) 6.87 H Absolute Retic 0.169 H Sodium 143.4 Potassium 4.1 Chloride 112 H Carbon Dioxide 25 Anion Gap 6 BUN 9 Creatinine 0.59 Est GFR ( Amer) > 60 Est GFR (Non-Af Amer) > 60 Glucose 96 Calcium 9.2 Total Bilirubin 3.7 H AST 23 ALT 19 Alkaline Phosphatase 75 Total Protein 7.1 Albumin 4.1 06/14/18 00:55 Troponin I 0.015 Assessment & Plan - Diagnosis (1) Sickle cell pain crisis Is this a current diagnosis for this admission?: Yes Plan: Unclear trigger. Symptomatic management, IV fluids, hydroxyurea. Follow-up CBC LDH, folic acid and B12 level. (2) Chest pain Qualifiers: Chest pain type: unspecified Qualified Code(s): R07.9 - Chest pain, unspecified Is this a current diagnosis for this admission?: Yes Plan: Secondary to #1 - Time Time Spent: 30 to 50 Minutes
[2018-06-14] MEDS: NORMAL SALINE 1000 ML 1,000 ML IV PRN ×3 (06:14→15:38)
[2018-06-14] MEDS: HEPARIN SOD (PORCINE) 5,000 UNIT/ML 1 ML SYRINGE SUBCUT SCH ×3 (07:00→21:05)
[2018-06-14 08:09] LABS: FOLATE 19.8 ng/mL (>2.76)
[2018-06-14] MEDS: HYDROMORPHONE HCL 2 MG TABLET PO PRN ×2 (08:21→10:49)
--- NOTE | 2018-06-14 08:27 | EKG REPORT ---
SEVERITY:- NORMAL ECG - SINUS RHYTHM : Confirmed by: Kris Baker MD 14-Jun-2018 08:27:33
[2018-06-14] MEDS: IPRATROPIUM/ALBUTEROL 0.5-2.5 MG/3 ML AMPUL NEB SCH ×3 (09:30→23:39)
[2018-06-14] MEDS ORDERED: FOLIC ACID 20 MG PO SCH (10:00)
[2018-06-14] MEDS: HYDROXYUREA 500 MG CAPSULE PO SCH (10:10)
[2018-06-14 11:54] LABS: ABSOLUTE BASOPHILS # (AUTO) 0.1 10^3/uL (0.0-0.2); ABSOLUTE EOSINOPHILS # (AUTO) 0.6 10^3/uL (0.0-0.6); ABSOLUTE LYMPHOCYTES (AUTO) 3.2 10^3/uL (0.5-4.7); ABSOLUTE NEUT (AUTO) 4.9 10^3/uL (1.7-8.2); BASOPHILS % (AUTO) 1.3 % (0-2); EOSINOPHILS % (AUTO) 5.9 % (0-6); HEMATOCRIT 24.8 % (36.0-47.0); HEMOGLOBIN 9.3 g/dL (12.0-15.5); LYMPHOCYTES % (AUTO) 32.3 % (13-45); MEAN CORPUSCULAR HEMOGLOBIN 39.9 pg (27.0-33.4); MEAN CORPUSCULAR VOLUME 107 fl (80-97); MONOCYTES % (AUTO) 10.7 % (3-13); PLATELET COUNT 379 10^3/uL (150-450); RED BLOOD COUNT 2.33 10^6/uL (3.72-5.28); RED CELL DISTRIBUTION WIDTH 13.8 % (11.5-14.0); SEGMENTED NEUTROPHILS % (AUTO) 49.8 % (42-78); TOTAL CELLS COUNTED % (AUTO) 100 %; WHITE BLOOD COUNT 9.8 10^3/uL (4.0-10.5)
[2018-06-14 12:27] LABS: MEAN CORPUSCULAR HGB CONC 37.4 g/dL (32.0-36.0)
[2018-06-14] MEDS: HYDROMORPHONE HCL INJ/PF 2 MG/ML AMPULE IV PRN ×4 (14:05→23:51)
--- NOTE | 2018-06-14 16:58 | PROGRESS NOTE E ---
Progress Note NAME: CASSANDRA MIDDLETON : 1995 AGE: 23Y DATE: 06/14/2018 ROOM: 303 SUBJECTIVE: The patient is a 23-year-old female who has a past medical history of sickle cell anemia. The patient complains of chest pain and body ache. She came yesterday to the emergency room and she was discharged from the ER after she resolved on IV fluids. The patient came back again on the same day, complaining of severe chest pain, body ache and bone pain. She was started on IV fluids as well as Dilaudid. She denied any dysuria, cough, fever or chills. Chest x-ray was unremarkable. Her white blood count was 10 and hemoglobin was 9.9. OBJECTIVE: GENERAL: Patient lying in bed, comfortable, not in distress. VITAL SIGNS: Blood pressure is 110/65, temperature 98, heart rate 68, respiratory rate 18. HEENT: Head normocephalic, atraumatic. Pupils round, reactive to light and accommodation bilaterally. Extraocular movements intact. Ears: Tympanic membranes intact bilaterally. No discharge from the ears. No discharge from the nose. NECK: Supple. No increased JVD. No thyromegaly. No lymphadenopathy. CARDIOVASCULAR: Normal S1, S2. Regular rate and rhythm. No murmur, no gallop. RESPIRATORY: Lungs clear. ABDOMEN: Soft. MUSCULOSKELETAL: No edema. NEUROLOGIC: Awake, alert. SKIN: No rash. LABORATORY DATA: White blood count is 10.5, hemoglobin is 9.9, hematocrit is 26. Creatinine is 0.5, BUN is 143. Potassium 4.1. ASSESSMENT: 1. SICKLE CELL PAIN CRISIS. Patient currently on IV fluids, Dilaudid and pain control. She is also on hydroxyurea. 2. CHEST PAIN, SECONDARY TO SICKLE CELL CRISIS, IMPROVING. Continue Dilaudid and IV fluids. Will order chest x-ray, urinalysis. Continue hydroxyurea. MEDICAL NECESSITY: The patient needs to stay for chest pain control, IV fluids and IV for pain control. DICTATING PHYSICIAN: FRANCISCO HICKS M.D. [id number] PHY#: [id number] ID: [id number] JOB#: [id number] ACCT: [id number] cc: >
[2018-06-14 18:04] LABS: APPEARANCE,URINE CLEAR; BILIRUBIN,URINE NEGATIVE (NEGATIVE); COLOR,URINE STRAW; GLUCOSE, URINE NEGATIVE (NEGATIVE); KETONES,URINE NEGATIVE (NEGATIVE); LEUKOCYTE ESTERASE,URINE TRACE (NEGATIVE); NITRITE,URINE NEGATIVE (NEGATIVE); PROTEIN,URINE NEGATIVE (NEGATIVE); URINE SPECIFIC GRAVITY 1.009; UROBILINOGEN,URINE NEGATIVE mg/dL (<2.0)
--- NOTE | 2018-06-14 20:39 | RADIOLOGY REPORT (SQ) ---
XR CHEST 2 VIEWS HISTORY: Sickle Cell. COMPARISON: 06/13/2018 FINDINGS: The heart size is normal. The lungs are clear. No pleural effusion or pneumothorax is seen. No acute bony findings. Unchanged right central venous line. IMPRESSION: No evidence of acute cardiopulmonary disease.
[2018-06-15] MEDS: HYDROMORPHONE HCL INJ/PF 2 MG/ML AMPULE IV PRN ×7 (03:22→22:14)
[2018-06-15] MEDS: HEPARIN SOD (PORCINE) 5,000 UNIT/ML 1 ML SYRINGE SUBCUT SCH ×3 (05:34→21:18)
[2018-06-15 06:59] LABS: HEMATOCRIT 24.8 % (36.0-47.0); HEMOGLOBIN 9.3 g/dL (12.0-15.5); MEAN CORPUSCULAR HEMOGLOBIN 39.6 pg (27.0-33.4); MEAN CORPUSCULAR VOLUME 105 fl (80-97); PLATELET COUNT 395 10^3/uL (150-450); RED BLOOD COUNT 2.35 10^6/uL (3.72-5.28); RED CELL DISTRIBUTION WIDTH 14.1 % (11.5-14.0); WHITE BLOOD COUNT 10.8 10^3/uL (4.0-10.5)
[2018-06-15 07:01] LABS: ALBUMIN 3.5 g/dL (3.5-5.0); ANION GAP 9 (5-19); BLOOD UREA NITROGEN 6 mg/dL (7-20); CALCIUM 8.8 mg/dL (8.4-10.2); CARBON DIOXIDE 24 mmol/L (22-30); CHLORIDE 106 mmol/L (98-107); GLUCOSE 84 mg/dL (75-110); PHOSPHORUS 4.5 mg/dL (2.5-4.5); POTASSIUM 3.9 mmol/L (3.6-5.0); SODIUM 139.2 mmol/L (137-145)
[2018-06-15 07:17] LABS: MEAN CORPUSCULAR HGB CONC 37.5 g/dL (32.0-36.0)
--- NOTE | 2018-06-15 07:49 | PDOC CONSULTATION ---
Consultation Consult Date: 06/15/18 Attending physician:: KARI BARRETO Consult reason:: Pain crisis, sickle cell disease History of Present Illness Admission Date/PCP: 06/14/18 05:04 JOIE MOREIRA MD Patient complains of: Severe pain, weakness, shortness of breath History of Present Illness: CASSANDRA MIDDLETON is a 23 year old female with long-standing history of sickle cell disease, admitted with severe pain crisis. She notes over the last week or so she has had increasing shortness of breath, she feels a lot of chest tightness, difficulty taking a deep breath because of pain. She does have other areas of usual pain crisis pain. Her hemoglobin is in the 9 range, she is usually stable in the 9-10 range regularly. Her LDH is elevated consistent with sickling. Past Medical History Cardiac Medical History: Reports: DVT - RUE s/p port placement Pulmonary Medical History: Reports: Asthma, Bronchitis - once in past per patient, Pneumonia - 2014 Neurological Medical History: Endocrine Medical History: Denies: Diabetes Mellitus Type 1, Diabetes Mellitus Type 2 Renal/ Medical History: GI Medical History: Musculoskeltal Medical History: Psychiatric Medical History: Reports: Depression Hematology: Reports: Anemia, Sickle Cell Disease Denies: Bleeding Tendencies Past Surgical History Past Surgical History: Reports: Cholecystectomy - 06/28/2015, Vascular Surgery - port put in December,, Other - Port-A-Cath in right upper chest Social History Information Source: Patient Smoking Status: Never Smoker Cigarettes Packs Per Day: 1 Number of Years Smokin Frequency of Alcohol Use: None Hx Recreational Drug Use: No Drugs: None Hx Prescription Drug Abuse: No - Advance Directive Resuscitation Status: Full Code Family History Family History: Other - Sickle cell disease and sickle cell trait, asthma Parental Family History Reviewed: Yes Children Family History Reviewed: Yes Sibling(s) Family History Reviewed.: Yes Medication/Allergy Home Medications: Aripiprazole [Abilify 10 mg Tablet] 10 mg PO QHS 06/14/18 Escitalopram Oxalate [Lexapro] 10 mg PO QHS 06/14/18 Folic Acid [Folvite 1 mg Tablet] 1 mg PO DAILY 06/14/18 Hydroxyurea [Hydrea 500 Mg Capsule] 500 mg PO BID 06/14/18 Oxycodone HCl 5 mg PO Q6HP PRN 06/14/18 Rivaroxaban [Xarelto] 20 mg PO DAILY 06/14/18 Allergies/Adverse Reactions: morphine Allergy (Severe, Verified 06/14/18 06:15) RASH,SWELLING jacob peppers Adverse Reaction (Severe, Uncoded 06/14/18 06:15) throat closes Review of Systems Constitutional: ABSENT: chills, fever(s), headache(s), weight gain, weight loss Eyes: ABSENT: visual disturbances Ears: ABSENT: hearing changes Cardiovascular: ABSENT: chest pain, dyspnea on exertion, edema, orthropnea, palpitations Respiratory: ABSENT: cough, hemoptysis Gastrointestinal: ABSENT: abdominal pain, constipation, diarrhea, hematemesis, hematochezia, nausea, vomiting Genitourinary: ABSENT: dysuria, hematuria Musculoskeletal: ABSENT: joint swelling Integumentary: ABSENT: rash, wounds Neurological: ABSENT: abnormal gait, abnormal speech, confusion, dizziness, focal weakness, syncope Psychiatric: ABSENT: anxiety, depression, homidical ideation, suicidal ideation Endocrine: ABSENT: cold intolerance, heat intolerance, polydipsia, polyuria Hematologic/Lymphatic: ABSENT: easy bleeding, easy bruising Physical Exam Vital Signs: Temp Pulse Resp BP Pulse Ox 98.5 F 87 18 111/62 97 06/15/18 03:27 06/15/18 03:27 06/15/18 03:27 06/15/18 03:27 06/15/18 03:27 Intake & Output 06/14/18 06/15/18 06/16/18 06:59 06:59 06:59 Intake Total 1000 3558 Output Total 5950 Balance 1000 -2392 Weight 65.2 kg 68 kg General appearance: PRESENT: no acute distress, well-developed, well-nourished Head exam: PRESENT: atraumatic, normocephalic Eye exam: PRESENT: conjunctiva pink, EOMI, PERRLA. ABSENT: scleral icterus Ear exam: PRESENT: normal external ear exam Mouth exam: PRESENT: moist, tongue midline Neck exam: ABSENT: carotid bruit, JVD, lymphadenopathy, thyromegaly Respiratory exam: PRESENT: clear to auscultation samaria. ABSENT: rales, rhonchi, wheezes Cardiovascular exam: PRESENT: RRR. ABSENT: diastolic murmur, rubs, systolic murmur Pulses: PRESENT: normal dorsalis pedis pul Vascular exam: PRESENT: normal capillary refill GI/Abdominal exam: PRESENT: normal bowel sounds, soft. ABSENT: distended, guarding, mass, organolmegaly, rebound, tenderness Rectal exam: PRESENT: deferred Extremities exam: PRESENT: full ROM. ABSENT: calf tenderness, clubbing, pedal edema Neurological exam: PRESENT: alert, awake, oriented to person, oriented to place, oriented to time, oriented to situation, CN II-XII grossly intact. ABSENT: motor sensory deficit Psychiatric exam: PRESENT: appropriate affect, normal mood. ABSENT: homicidal ideation, suicidal ideation Skin exam: PRESENT: dry, intact, warm. ABSENT: cyanosis, rash Results Laboratory Results: 06/15/18 06:44 06/15/18 06:28 06/14/18 06/14/18 06/14/18 06:33 11:26 16:10 WBC 9.8 RBC 2.33 L Hgb 9.3 L Hct 24.8 L MCV 107 H MCH 39.9 H MCHC 37.4 H RDW 13.8 Plt Count 379 Seg Neutrophils % 49.8 Lymphocytes % 32.3 Monocytes % 10.7 Eosinophils % 5.9 Basophils % 1.3 Absolute Neutrophils 4.9 Absolute Lymphocytes 3.2 Absolute Monocytes 1.0 Absolute Eosinophils 0.6 Absolute Basophils 0.1 Sodium Potassium Chloride Carbon Dioxide Anion Gap BUN Creatinine Est GFR ( Amer) Est GFR (Non-Af Amer) Glucose Calcium Phosphorus Albumin Vitamin B12 332.0 Folate 19.80 Urine Color STRAW Urine Appearance CLEAR Urine pH 6.0 Ur Specific [place] 1.009 Urine Protein NEGATIVE Urine Glucose (UA) NEGATIVE Urine Ketones NEGATIVE Urine Blood NEGATIVE Urine Nitrite NEGATIVE Ur Leukocyte Esterase TRACE H Urine WBC (Auto) 2 Urine RBC (Auto) 0 06/15/18 06/15/18 06:28 06:44 WBC 10.8 H RBC 2.35 L Hgb 9.3 L Hct 24.8 L MCV 105 H MCH 39.6 H MCHC 37.5 H RDW 14.1 H Plt Count 395 Seg Neutrophils % Lymphocytes % Monocytes % Eosinophils % Basophils % Absolute Neutrophils Absolute Lymphocytes Absolute Monocytes Absolute Eosinophils Absolute Basophils Sodium 139.2 Potassium 3.9 Chloride 106 Carbon Dioxide 24 Anion Gap 9 BUN 6 L Creatinine 0.56 Est GFR ( Amer) > 60 Est GFR (Non-Af Amer) > 60 Glucose 84 Calcium 8.8 Phosphorus 4.5 Albumin 3.5 Vitamin B12 Folate Urine Color Urine Appearance Urine pH Ur Specific [place] Urine Protein Urine Glucose (UA) Urine Ketones Urine Blood Urine Nitrite Ur Leukocyte Esterase Urine WBC (Auto) Urine RBC (Auto) 06/14/18 00:55 Troponin I 0.015 Impressions: Chest X-Ray 06/14/18 08:48 IMPRESSION: No evidence of acute cardiopulmonary disease. Assessment & Plan - Diagnosis (1) Sickle cell pain crisis Is this a current diagnosis for this admission?: Yes Plan: Sickle cell disease with pain crisis, will increase Dilaudid, restart IV fluids for the next 24 hours, gave K pad for comfort, Benadryl for itching, initiated a bowel regimen. Asked nursing to call me with any pain medication needs. 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 (3) Chest pain Qualifiers: Chest pain type: other chest pain Qualified Code(s): R07.89 - Other chest pain; R07.8 - Other chest pain Is this a current diagnosis for this admission?: Yes Plan: Probably secondary to sickling in the ribs as of now, O2 status is appropriate but she did get transferred out in 2016 with acute chest crisis. We will watch closely. - Time Time Spent: Greater than 70 Minutes - Inpatient Certification Based on my medical assessment, after consideration of the patient's comorbidities, presenting symptoms, or acuity I expect that the services needed warrant INPATIENT care.: Yes I certify that my determination is in accordance with my understanding of Medicare's requirements for reasonable and necessary INPATIENT services [42 CFR 412.3e].: Yes Medical Necessity: Need For IV Fluids, Need for Pain Control
[2018-06-15] MEDS: IPRATROPIUM/ALBUTEROL 0.5-2.5 MG/3 ML AMPUL NEB SCH ×2 (07:53→16:18)
[2018-06-15] MEDS: HYDROXYUREA 500 MG CAPSULE PO SCH ×3 (09:23→17:06)
[2018-06-15] MEDS: FOLIC ACID 1 MG TABLET PO SCH (09:23)
[2018-06-15] MEDS: DIPHENHYDRAMINE HCL 25 MG CAPSULE PO PRN ×3 (09:23→23:13)
[2018-06-15] MEDS ORDERED: (PENDING PHARMACY ID) (Oxycodone Hcl [Oxycodone Hcl] 5 MG) PO PRN (09:57)
--- NOTE | 2018-06-15 10:15 | PDOC PROGRESS REPORT ---
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 Presents with 5 days of increasing chest pain prompting evaluation in the emergency room 12 hours ago but was improved and discharged home only to return with left-sided chest wall pain worsened by deep breathing and movement. She denies palpitations or shortness of breath. On reevaluation she is found to have a drop of her hemoglobin of 1 g she receives IV Dilaudid, normal saline and referred to the hospitalist for admission. Patient denies recent infectious contacts or fever. 06/15/2018 23-year-old female admitted for sickle cell anemia crisis. Dr. Baum saw the patient this morning we follow his recommendations. No acute events from the time of admission. Reason For Visit: SS PAIN CRISIS Physical Exam Vital Signs: Temp Pulse Resp BP Pulse Ox 98.4 F 82 14 119/58 L 95 06/15/18 07:43 06/15/18 07:55 06/15/18 07:55 06/15/18 07:43 06/15/18 07:55 Intake & Output 06/14/18 06/15/18 06/16/18 06:59 06:59 06:59 Intake Total 1000 3558 Output Total 5950 Balance 1000 -2392 Weight 65.2 kg 68 kg General appearance: PRESENT: no acute distress Head exam: PRESENT: atraumatic Eye exam: PRESENT: PERRLA Mouth exam: PRESENT: moist, tongue midline Neck exam: ABSENT: carotid bruit, JVD, lymphadenopathy, thyromegaly Respiratory exam: PRESENT: clear to auscultation samaria. ABSENT: rales, rhonchi, wheezes Cardiovascular exam: PRESENT: RRR. ABSENT: diastolic murmur, rubs, systolic murmur GI/Abdominal exam: PRESENT: normal bowel sounds, soft. ABSENT: distended, guarding, mass, organolmegaly, rebound, tenderness Extremities exam: PRESENT: full ROM. ABSENT: calf tenderness, clubbing, pedal edema Neurological exam: PRESENT: alert, awake, oriented to person, oriented to place, oriented to time, oriented to situation, CN II-XII grossly intact. ABSENT: motor sensory deficit Psychiatric exam: PRESENT: appropriate affect, normal mood. ABSENT: homicidal ideation, suicidal ideation Results Laboratory Results: 06/15/18 06:44 06/15/18 06:28 06/14/18 06/14/18 06/15/18 11:26 16:10 06:28 WBC 9.8 RBC 2.33 L Hgb 9.3 L Hct 24.8 L MCV 107 H MCH 39.9 H MCHC 37.4 H RDW 13.8 Plt Count 379 Seg Neutrophils % 49.8 Lymphocytes % 32.3 Monocytes % 10.7 Eosinophils % 5.9 Basophils % 1.3 Absolute Neutrophils 4.9 Absolute Lymphocytes 3.2 Absolute Monocytes 1.0 Absolute Eosinophils 0.6 Absolute Basophils 0.1 Sodium 139.2 Potassium 3.9 Chloride 106 Carbon Dioxide 24 Anion Gap 9 BUN 6 L Creatinine 0.56 Est GFR ( Amer) > 60 Est GFR (Non-Af Amer) > 60 Glucose 84 Calcium 8.8 Phosphorus 4.5 Albumin 3.5 Urine Color STRAW Urine Appearance CLEAR Urine pH 6.0 Ur Specific [place] 1.009 Urine Protein NEGATIVE Urine Glucose (UA) NEGATIVE Urine Ketones NEGATIVE Urine Blood NEGATIVE Urine Nitrite NEGATIVE Ur Leukocyte Esterase TRACE H Urine WBC (Auto) 2 Urine RBC (Auto) 0 06/15/18 06:44 WBC 10.8 H RBC 2.35 L Hgb 9.3 L Hct 24.8 L MCV 105 H MCH 39.6 H MCHC 37.5 H RDW 14.1 H Plt Count 395 Seg Neutrophils % Lymphocytes % Monocytes % Eosinophils % Basophils % Absolute Neutrophils Absolute Lymphocytes Absolute Monocytes Absolute Eosinophils Absolute Basophils Sodium Potassium Chloride Carbon Dioxide Anion Gap BUN Creatinine Est GFR ( Amer) Est GFR (Non-Af Amer) Glucose Calcium Phosphorus Albumin Urine Color Urine Appearance Urine pH Ur Specific [place] Urine Protein Urine Glucose (UA) Urine Ketones Urine Blood Urine Nitrite Ur Leukocyte Esterase Urine WBC (Auto) Urine RBC (Auto) 06/14/18 00:55 Troponin I 0.015 Impressions: Chest X-Ray 06/14/18 08:48 IMPRESSION: No evidence of acute cardiopulmonary disease. Assessment & Plan - Diagnosis (1) Sickle cell pain crisis Is this a current diagnosis for this admission?: Yes Plan: 06/15/2018-patient was admitted with sickle cell disease with pain crisis presently on IV Dilaudid and IV fluids patient is requesting K pad on Benadryl for itching those orders were placed. Plan is to recheck the labs including reticulocyte count and LDH tomorrow. 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 Patient's baseline hemoglobin is in between 9.5-10. plan is to check the labs on daily basis. (3) Chest pain Qualifiers: Chest pain type: other chest pain Qualified Code(s): R07.89 - Other chest pain; R07.8 - Other chest pain Is this a current diagnosis for this admission?: Yes Plan: 06/15/2018 patient came in with complaints of chest pain most likely secondary to sickling in the ribs pulse oxes are 95% on room air patient is not complaining of any chest pains this morning. - Time Time Spent with patient: 15-24 minutes Medications reviewed and adjusted accordingly: Yes Anticipated discharge: Home
[2018-06-15] MEDS: NORMAL SALINE 1000 ML 1,000 ML IV PRN ×2 (10:33→18:29)
[2018-06-15] MEDS: OXYCODONE HCL IR 5 MG TABLET PO PRN ×2 (11:03→23:13)
[2018-06-15] MEDS: RIVAROXABAN 10 MG TABLET PO SCH (11:04)
[2018-06-15] MEDS: ARIPIPRAZOLE 5 MG TABLET PO SCH (21:17)
[2018-06-15] MEDS: ESCITALOPRAM OXALATE 10 MG TABLET PO SCH (21:18)
[2018-06-15] MEDS ORDERED: (PENDING PHARMACY ID) (Aripiprazole [Abilify 10 Mg Tablet] 10 MG) PO SCH (22:00)
[2018-06-16] MEDS: HYDROMORPHONE HCL INJ/PF 2 MG/ML AMPULE IV PRN ×7 (00:16→22:43)
[2018-06-16] MEDS: IPRATROPIUM/ALBUTEROL 0.5-2.5 MG/3 ML AMPUL NEB SCH ×3 (01:35→16:45)
[2018-06-16] MEDS: NORMAL SALINE 1000 ML 1,000 ML IV PRN ×3 (02:22→18:35)
[2018-06-16] MEDS: HEPARIN SOD (PORCINE) 5,000 UNIT/ML 1 ML SYRINGE SUBCUT SCH (05:44)
[2018-06-16 06:58] LABS: ABSOLUTE RETICS # 0.142 10^6/uL (0.028-0.122); HEMOGLOBIN 8.6 g/dL (12.0-15.5); MEAN CORPUSCULAR HEMOGLOBIN 39.7 pg (27.0-33.4); MEAN CORPUSCULAR VOLUME 106 fl (80-97); PLATELET COUNT 382 10^3/uL (150-450); RED BLOOD COUNT 2.18 10^6/uL (3.72-5.28); RED CELL DISTRIBUTION WIDTH 14.4 % (11.5-14.0); WHITE BLOOD COUNT 11.4 10^3/uL (4.0-10.5)
[2018-06-16 07:09] LABS: ALANINE AMINOTRANSFERASE 25 U/L (9-52); ALBUMIN 3.5 g/dL (3.5-5.0); ALKALINE PHOSPHATASE 54 U/L (38-126); ANION GAP 7 (5-19); ASPARTATE AMINO TRANSFERASE 25 U/L (14-36); BILIRUBIN,DIRECT 0.3 mg/dL (0.0-0.4); BLOOD UREA NITROGEN 5 mg/dL (7-20); CALCIUM 8.8 mg/dL (8.4-10.2); CARBON DIOXIDE 26 mmol/L (22-30); CHLORIDE 105 mmol/L (98-107); GLUCOSE 87 mg/dL (75-110); POTASSIUM 4.1 mmol/L (3.6-5.0); SODIUM 137.9 mmol/L (137-145); TOTAL PROTEIN 6.6 g/dL (6.3-8.2)
[2018-06-16 08:01] LABS: MEAN CORPUSCULAR HGB CONC 37.6 g/dL (32.0-36.0)
[2018-06-16] MEDS: POLYETHYLENE GLYCOL 3350 POWDER 17 GM/1 PACKET PO PRN (08:22)
[2018-06-16] MEDS: SENNOSIDES/DOCUSATE 8.6-50 MG 1 EACH TABLET PO PRN (08:23)
[2018-06-16] MEDS: DIPHENHYDRAMINE HCL 25 MG CAPSULE PO PRN ×2 (08:56→18:37)
[2018-06-16] MEDS: HYDROXYUREA 500 MG CAPSULE PO SCH ×2 (09:08→18:04)
[2018-06-16] MEDS: RIVAROXABAN 10 MG TABLET PO SCH (09:09)
[2018-06-16] MEDS: FOLIC ACID 1 MG TABLET PO SCH (09:09)
--- NOTE | 2018-06-16 09:28 | PDOC PROGRESS REPORT ---
Subjective Progress Note for:: 06/16/18 Subjective:: Patient states that she had severe pain last night which lasted 30 minutes. This was chest pain which woke her up from sleep, but then resolved. No new pains this morning. She is currently receiving nebulizer treatment. She states that she did walk in [place] yesterday. ROS: No nausea, constipation, dysuria. Reason For Visit: SICKLE CELL CRISIS Physical Exam Vital Signs: Temp Pulse Resp BP Pulse Ox 98.5 F 94 16 135/63 H 96 06/16/18 03:39 06/16/18 03:39 06/16/18 03:39 06/16/18 03:39 06/16/18 03:39 Intake & Output 06/15/18 06/16/18 06/17/18 06:59 06:59 06:59 Intake Total 3558 3320 Output Total 5950 900 Balance -2392 2420 Weight 68 kg 68 kg General appearance: PRESENT: well-developed, well-nourished Head exam: PRESENT: normocephalic Respiratory exam: PRESENT: clear to auscultation samaria, unlabored Cardiovascular exam: PRESENT: RRR Extremities exam: ABSENT: pedal edema Neurological exam: PRESENT: alert, awake, oriented to person, oriented to place, oriented to time, oriented to situation Psychiatric exam: PRESENT: appropriate affect Skin exam: PRESENT: normal color Results Laboratory Results: 06/16/18 06:08 06/16/18 06:08 06/16/18 06/16/18 06:08 06:08 WBC 11.4 H RBC 2.18 L Hgb 8.6 L Hct 23.0 L MCV 106 H MCH 39.7 H MCHC 37.6 H RDW 14.4 H Plt Count 382 Retic Count (auto) 6.50 H Absolute Retic 0.142 H Sodium 137.9 Potassium 4.1 Chloride 105 Carbon Dioxide 26 Anion Gap 7 BUN 5 L Creatinine 0.48 L Est GFR ( Amer) > 60 Est GFR (Non-Af Amer) > 60 Glucose 87 Calcium 8.8 Magnesium 1.6 Total Bilirubin 4.0 H AST 25 ALT 25 Alkaline Phosphatase 54 Total Protein 6.6 Albumin 3.5 06/14/18 00:55 Troponin I 0.015 Impressions: Chest X-Ray 06/14/18 08:48 IMPRESSION: No evidence of acute cardiopulmonary disease. Assessment & Plan - Diagnosis (1) Sickle cell pain crisis Is this a current diagnosis for this admission?: Yes Plan: Patient appears to be doing well with current pain medication regimen. Will continue. Continue O2, fluids, encourage ambulation. (2) History of DVT (deep vein thrombosis) Is this a current diagnosis for this admission?: Yes Plan: She is on Xarelto, so I do not see the need for SC heparin as well. Will continue the Xarelto only.
--- NOTE | 2018-06-16 16:57 | PDOC PROGRESS REPORT ---
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 Presents with 5 days of increasing chest pain prompting evaluation in the emergency room 12 hours ago but was improved and discharged home only to return with left-sided chest wall pain worsened by deep breathing and movement. She denies palpitations or shortness of breath. On reevaluation she is found to have a drop of her hemoglobin of 1 g she receives IV Dilaudid, normal saline and referred to the hospitalist for admission. Patient denies recent infectious contacts or fever. 06/15/2018 23-year-old female admitted for sickle cell anemia crisis. Dr. Baum saw the patient this morning we follow his recommendations. No acute events from the time of admission. 06/16: She states she is doing better. She did have an episode of about 30 minutes last night with severe pain. She has been able to ambulate with minimal pain. That she is improving. Reason For Visit: SICKLE CELL CRISIS Physical Exam Vital Signs: Temp Pulse Resp BP Pulse Ox 98.8 F 68 12 123/52 L 97 06/16/18 11:22 06/16/18 16:45 06/16/18 16:45 06/16/18 11:22 06/16/18 16:45 Intake & Output 06/15/18 06/16/18 06/17/18 06:59 06:59 06:59 Intake Total 3558 3320 975 Output Total 5950 900 Balance -2392 2420 975 Weight 68 kg 68 kg General appearance: PRESENT: no acute distress, cooperative Neck exam: PRESENT: full ROM. ABSENT: JVD, tenderness, thyromegaly, tracheal deviation Respiratory exam: PRESENT: clear to auscultation samaria Cardiovascular exam: PRESENT: RRR GI/Abdominal exam: PRESENT: normal bowel sounds, soft. ABSENT: tenderness Musculoskeletal exam: PRESENT: full ROM, tenderness Neurological exam: PRESENT: alert, oriented to person, oriented to place, oriented to time, oriented to situation Skin exam: PRESENT: dry, warm Results Laboratory Results: 06/16/18 06:08 06/16/18 06:08 06/16/18 06/16/18 06:08 06:08 WBC 11.4 H RBC 2.18 L Hgb 8.6 L Hct 23.0 L MCV 106 H MCH 39.7 H MCHC 37.6 H RDW 14.4 H Plt Count 382 Retic Count (auto) 6.50 H Absolute Retic 0.142 H Sodium 137.9 Potassium 4.1 Chloride 105 Carbon Dioxide 26 Anion Gap 7 BUN 5 L Creatinine 0.48 L Est GFR ( Amer) > 60 Est GFR (Non-Af Amer) > 60 Glucose 87 Calcium 8.8 Magnesium 1.6 Total Bilirubin 4.0 H AST 25 ALT 25 Alkaline Phosphatase 54 Total Protein 6.6 Albumin 3.5 06/14/18 00:55 Troponin I 0.015 Impressions: Chest X-Ray 06/14/18 08:48 IMPRESSION: No evidence of acute cardiopulmonary disease. Assessment and Plan - Diagnosis (1) Acute sickle cell crisis Is this a current diagnosis for this admission?: Yes Plan: 06/16/18 16:56 We will continue to monitor. Retic count is still elevated. Stable on current pain medications. Will consider continue IV fluids and monitoring. - Time Time Spent with patient: 25-34 minutes Medications reviewed and adjusted accordingly: Yes Anticipated discharge: Home
[2018-06-16] MEDS: ARIPIPRAZOLE 5 MG TABLET PO SCH (22:43)
[2018-06-16] MEDS: ESCITALOPRAM OXALATE 10 MG TABLET PO SCH (22:43)
[2018-06-17] MEDS: IPRATROPIUM/ALBUTEROL 0.5-2.5 MG/3 ML AMPUL NEB SCH ×3 (00:22→16:33)
[2018-06-17] MEDS: DIPHENHYDRAMINE HCL 25 MG CAPSULE PO PRN ×4 (01:04→22:45)
[2018-06-17] MEDS: HYDROMORPHONE HCL INJ/PF 2 MG/ML AMPULE IV PRN ×8 (01:04→22:37)
[2018-06-17] MEDS: NORMAL SALINE 1000 ML 1,000 ML IV PRN ×3 (02:54→18:10)
[2018-06-17 05:33] LABS: HEMATOCRIT 22.3 % (36.0-47.0); HEMOGLOBIN 8.4 g/dL (12.0-15.5); MEAN CORPUSCULAR HEMOGLOBIN 39.6 pg (27.0-33.4); MEAN CORPUSCULAR VOLUME 105 fl (80-97); PLATELET COUNT 409 10^3/uL (150-450); RED BLOOD COUNT 2.12 10^6/uL (3.72-5.28)
[2018-06-17 06:21] LABS: MEAN CORPUSCULAR HGB CONC 37.7 g/dL (32.0-36.0)
--- NOTE | 2018-06-17 08:20 | PDOC PROGRESS REPORT ---
Subjective Progress Note for:: 06/17/18 Subjective:: Pain is better, patient would like regular diet Reason For Visit: SICKLE CELL CRISIS Physical Exam Vital Signs: Temp Pulse Resp BP Pulse Ox 98.7 F 90 18 126/62 H 91 L 06/17/18 02:50 06/17/18 02:50 06/17/18 02:50 06/17/18 02:50 06/17/18 02:50 Intake & Output 06/16/18 06/17/18 06/18/18 06:59 06:59 06:59 Intake Total 3320 4505 Output Total 900 5350 Balance 2420 -845 Weight 68 kg 68 kg General appearance: PRESENT: no acute distress, well-developed, well-nourished Head exam: PRESENT: atraumatic, normocephalic Eye exam: PRESENT: conjunctiva pink, EOMI, PERRLA. ABSENT: scleral icterus Ear exam: PRESENT: normal external ear exam Mouth exam: PRESENT: moist, tongue midline Neck exam: ABSENT: carotid bruit, JVD, lymphadenopathy, thyromegaly Respiratory exam: PRESENT: clear to auscultation samaria. ABSENT: rales, rhonchi, wheezes Cardiovascular exam: PRESENT: RRR. ABSENT: diastolic murmur, rubs, systolic murmur Pulses: PRESENT: normal dorsalis pedis pul Vascular exam: PRESENT: normal capillary refill GI/Abdominal exam: PRESENT: normal bowel sounds, soft. ABSENT: distended, guarding, mass, organolmegaly, rebound, tenderness Rectal exam: PRESENT: deferred Extremities exam: PRESENT: full ROM. ABSENT: calf tenderness, clubbing, pedal edema Neurological exam: PRESENT: alert, awake, oriented to person, oriented to place, oriented to time, oriented to situation, CN II-XII grossly intact. ABSENT: motor sensory deficit Psychiatric exam: PRESENT: appropriate affect, normal mood. ABSENT: homicidal ideation, suicidal ideation Skin exam: PRESENT: dry, intact, warm. ABSENT: cyanosis, rash Results Laboratory Results: 06/17/18 05:00 06/16/18 06:08 06/17/18 05:00 WBC 12.0 H RBC 2.12 L Hgb 8.4 L Hct 22.3 L MCV 105 H MCH 39.6 H MCHC 37.7 H RDW 15.0 H Plt Count 409 06/14/18 00:55 Troponin I 0.015 Impressions: Chest X-Ray 06/14/18 08:48 IMPRESSION: No evidence of acute cardiopulmonary disease. Assessment & Plan - Diagnosis (1) Sickle cell pain crisis Is this a current diagnosis for this admission?: Yes Plan: Improved, decreased pain medications today, may be ready for discharge in the next 24-48 hours. 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 Is this a current diagnosis for this admission?: No Plan: Hemoglobin dropped to 8.4, repeat hemoglobin tomorrow, if further drop we may transfuse 1 unit. (3) Chest pain Qualifiers: Chest pain type: other chest pain Qualified Code(s): R07.89 - Other chest pain; R07.8 - Other chest pain Is this a current diagnosis for this admission?: Yes Plan: Mostly resolved, does not appear to be chest syndrome right now - Time Time Spent with patient: 35 or more minutes - Inpatient Certification Based on my medical assessment, after consideration of the patient's comorbidities, presenting symptoms, or acuity I expect that the services needed warrant INPATIENT care.: Yes I certify that my determination is in accordance with my understanding of Medicare's requirements for reasonable and necessary INPATIENT services [42 CFR 412.3e].: Yes Medical Necessity: Need For IV Fluids, Need for Pain Control
[2018-06-17] MEDS: SENNOSIDES/DOCUSATE 8.6-50 MG 1 EACH TABLET PO PRN (09:14)
[2018-06-17] MEDS: FOLIC ACID 1 MG TABLET PO SCH (09:14)
[2018-06-17] MEDS: RIVAROXABAN 10 MG TABLET PO SCH (09:14)
[2018-06-17] MEDS: POLYETHYLENE GLYCOL 3350 POWDER 17 GM/1 PACKET PO PRN (09:15)
[2018-06-17] MEDS: HYDROXYUREA 500 MG CAPSULE PO SCH ×2 (09:15→18:08)
--- NOTE | 2018-06-17 11:30 | PDOC PROGRESS REPORT ---
Subjective Progress Note for:: 06/17/18 Subjective:: 23-year-old female with sickle cell anemia. States that she is feeling better. She has been up and ambulating in the hallway more than she had been the past couple days. She will having some chest pain. All states that overall her pain has been well controlled though. Reason For Visit: SICKLE CELL CRISIS Physical Exam Vital Signs: Temp Pulse Resp BP Pulse Ox 98.5 F 83 16 111/58 L 94 06/17/18 08:05 06/17/18 09:01 06/17/18 09:01 06/17/18 08:05 06/17/18 09:01 Intake & Output 06/16/18 06/17/18 06/18/18 06:59 06:59 06:59 Intake Total 3320 4505 835 Output Total 900 5350 Balance 2420 -845 835 Weight 68 kg 68 kg General appearance: PRESENT: no acute distress, cooperative Mouth exam: PRESENT: moist, neck supple Neck exam: PRESENT: full ROM. ABSENT: JVD, lymphadenopathy, thyromegaly, tracheal deviation Cardiovascular exam: PRESENT: RRR. ABSENT: gallop, rubs GI/Abdominal exam: PRESENT: normal bowel sounds, soft. ABSENT: tenderness Extremities exam: ABSENT: pedal edema, tenderness Neurological exam: PRESENT: alert, oriented to person, oriented to place, oriented to time, oriented to situation Psychiatric exam: ABSENT: agitated, anxious Skin exam: PRESENT: normal color, warm Results Laboratory Results: 06/17/18 05:00 06/16/18 06:08 06/17/18 05:00 WBC 12.0 H RBC 2.12 L Hgb 8.4 L Hct 22.3 L MCV 105 H MCH 39.6 H MCHC 37.7 H RDW 15.0 H Plt Count 409 06/14/18 00:55 Troponin I 0.015 Impressions: Chest X-Ray 06/14/18 08:48 IMPRESSION: No evidence of acute cardiopulmonary disease. Assessment and Plan - Diagnosis (1) Acute sickle cell crisis Is this a current diagnosis for this admission?: Yes Plan: 06/16/18 16:56 We will continue to monitor. Retic count is still elevated. Stable on current pain medications. Will continue IV fluids and monitoring. Possible discharge in the next 24 hours. - Time Time Spent with patient: 25-34 minutes Medications reviewed and adjusted accordingly: Yes Anticipated discharge: Home
[2018-06-17] MEDS: ARIPIPRAZOLE 5 MG TABLET PO SCH (22:38)
[2018-06-17] MEDS: ESCITALOPRAM OXALATE 10 MG TABLET PO SCH (22:38)
[2018-06-18] MEDS: IPRATROPIUM/ALBUTEROL 0.5-2.5 MG/3 ML AMPUL NEB SCH ×3 (00:08→16:19)
[2018-06-18] MEDS: HYDROMORPHONE HCL INJ/PF 2 MG/ML AMPULE IV PRN ×8 (00:49→23:57)
[2018-06-18] MEDS: OXYCODONE HCL IR 5 MG TABLET PO PRN (00:53)
[2018-06-18] MEDS: NORMAL SALINE 1000 ML 1,000 ML IV PRN ×3 (03:22→21:50)
[2018-06-18 06:11] LABS: HEMATOCRIT 22.7 % (36.0-47.0); HEMOGLOBIN 8.4 g/dL (12.0-15.5); MEAN CORPUSCULAR HEMOGLOBIN 38.9 pg (27.0-33.4); MEAN CORPUSCULAR HGB CONC 36.8 g/dL (32.0-36.0); MEAN CORPUSCULAR VOLUME 106 fl (80-97); PLATELET COUNT 425 10^3/uL (150-450); RED BLOOD COUNT 2.15 10^6/uL (3.72-5.28); RED CELL DISTRIBUTION WIDTH 15.3 % (11.5-14.0)
[2018-06-18 07:09] LABS: ABSOLUTE LYMPHOCYTES# (MANUAL) 3.6 10^3/uL (0.5-4.7); ABSOLUTE MONOCYTES # (MANUAL) 0.6 10^3/uL (0.1-1.4); ABSOLUTE NEUTROPHILS# (MANUAL) 7.2 10^3/uL (1.7-8.2); BASOPHILS % (MANUAL) 0 % (0-2); EOSINOPHILS % (MANUAL) 8 % (0-6); LYMPHOCYTES % (MANUAL) 29 % (13-45); MONOCYTES % (MANUAL) 5 % (3-13); NUCLEATED RED BLOOD CELLS 5 /100 WBC (0); SEGMENTED NEUTROPHILS % (MAN) 58 % (42-78); TOTAL CELLS COUNTED 100
[2018-06-18 07:10] LABS: HYPOCHROMASIA 2+; POLYCHROMASIA 1+
[2018-06-18 07:11] LABS: ANISOCYTOSIS SLIGHT
[2018-06-18 07:12] LABS: PLATELET COMMENT ADEQUATE
[2018-06-18 07:14] LABS: WHITE BLOOD COUNT 11.8 10^3/uL (4.0-10.5)
[2018-06-18 07:15] LABS: ABSOLUTE RETICS # 0.193 10^6/uL (0.028-0.122)
--- NOTE | 2018-06-18 07:49 | PDOC PROGRESS REPORT ---
Subjective Progress Note for:: 06/18/18 Subjective:: Patient without complaints today. She states that the pain is about the same. She does not wish to make any changes to her medications today. Reason For Visit: SICKLE CELL CRISIS Physical Exam Vital Signs: Temp Pulse Resp BP Pulse Ox 97.9 F 100 18 124/66 96 06/18/18 04:47 06/18/18 04:47 06/18/18 04:47 06/18/18 04:47 06/18/18 04:47 Intake & Output 06/17/18 06/18/18 06/19/18 06:59 06:59 06:59 Intake Total 4505 4826 Output Total 5350 5300 Balance -845 -474 Weight 68 kg 69.1 kg Exam: 23 year old female. She appears quite comfortable. She was reminded to wear her oxygen. Respiratory exam: PRESENT: unlabored Extremities exam: ABSENT: pedal edema Neurological exam: PRESENT: alert, awake, oriented to person, oriented to place, oriented to time, oriented to situation Psychiatric exam: PRESENT: appropriate affect Skin exam: PRESENT: normal color Results Laboratory Results: 06/18/18 05:35 06/16/18 06:08 06/18/18 06/18/18 05:35 05:35 WBC 11.8 H RBC 2.15 L Hgb 8.4 L Hct 22.7 L MCV 106 H MCH 38.9 H MCHC 36.8 H RDW 15.3 H Plt Count 425 Seg Neutrophils % Not Reportable Lymphocytes % Not Reportable Monocytes % Not Reportable Eosinophils % Not Reportable Basophils % Not Reportable Absolute Neutrophils Not Reportable Absolute Lymphocytes Not Reportable Absolute Monocytes Not Reportable Absolute Eosinophils Not Reportable Absolute Basophils Not Reportable Retic Count (auto) 9.00 H Absolute Retic 0.193 H 06/14/18 00:55 Troponin I 0.015 Impressions: Chest X-Ray 06/14/18 08:48 IMPRESSION: No evidence of acute cardiopulmonary disease. Assessment & Plan - Diagnosis (1) Sickle cell pain crisis Is this a current diagnosis for this admission?: Yes Plan: Her HGB is stable and her LDH is less. Continue current treatment. Hopefully, can transition back to oral meds today in preparation for discharge. (2) History of DVT (deep vein thrombosis) Is this a current diagnosis for this admission?: Yes Plan: Continue current blood thinners without changes.
[2018-06-18] MEDS: DIPHENHYDRAMINE HCL 25 MG CAPSULE PO PRN ×3 (08:28→23:57)
[2018-06-18] MEDS: HYDROXYUREA 500 MG CAPSULE PO SCH ×2 (10:35→18:19)
[2018-06-18] MEDS: RIVAROXABAN 10 MG TABLET PO SCH (10:35)
[2018-06-18] MEDS: FOLIC ACID 1 MG TABLET PO SCH (10:35)
--- NOTE | 2018-06-18 18:05 | PDOC PROGRESS REPORT ---
Subjective Progress Note for:: 06/18/18 Subjective:: No adverse events overnight. No new complaints. When I came into the room she was laying with her eyes closed and her mouth hanging open with her head lifted up off the bed and her hands crossed over her belly. The third time I called her name she finally woke up. While she was talking to me most the time her eyes remained closed. She said that she did not think she was ready for her pain medication to be changed yet. Reason For Visit: SICKLE CELL CRISIS Physical Exam Vital Signs: Temp Pulse Resp BP Pulse Ox 98.7 F 75 16 116/54 L 95 06/18/18 15:16 06/18/18 15:16 06/18/18 15:16 06/18/18 15:16 06/18/18 15:16 Intake & Output 06/17/18 06/18/18 06/19/18 06:59 06:59 06:59 Intake Total 4505 4826 1702 Output Total 5350 5300 Balance -845 -474 1702 Weight 68 kg 69.1 kg General appearance: PRESENT: Appeared over sedated, cooperative Mouth exam: PRESENT: moist, neck supple Neck exam: PRESENT: full ROM. ABSENT: JVD, lymphadenopathy, thyromegaly, tr acheal deviation Cardiovascular exam: PRESENT: RRR. ABSENT: gallop, rubs GI/Abdominal exam: PRESENT: normal bowel sounds, soft. ABSENT: tenderness Extremities exam: ABSENT: pedal edema, tenderness Neurological exam: PRESENT: Drowsy but arousable, oriented to person, oriented to place, oriented to time, oriented to situation Psychiatric exam: ABSENT: Somnolent Skin exam: PRESENT: normal color, warm Results Laboratory Results: 06/18/18 05:35 06/16/18 06:08 06/18/18 06/18/18 05:35 05:35 WBC 11.8 H RBC 2.15 L Hgb 8.4 L Hct 22.7 L MCV 106 H MCH 38.9 H MCHC 36.8 H RDW 15.3 H Plt Count 425 Seg Neutrophils % Not Reportable Lymphocytes % Not Reportable Monocytes % Not Reportable Eosinophils % Not Reportable Basophils % Not Reportable Absolute Neutrophils Not Reportable Absolute Lymphocytes Not Reportable Absolute Monocytes Not Reportable Absolute Eosinophils Not Reportable Absolute Basophils Not Reportable Retic Count (auto) 9.00 H Absolute Retic 0.193 H 06/14/18 00:55 Troponin I 0.015 Impressions: Chest X-Ray 06/14/18 08:48 IMPRESSION: No evidence of acute cardiopulmonary disease. Assessment and Plan - Diagnosis (1) Acute sickle cell crisis Is this a current diagnosis for this admission?: Yes Plan: I cut back on her Dilaudid because she appears to be oversedated. She is being followed by hematology. We will continue to try to get her back on to nothing but her oral medication so she can go home. - Time Time Spent with patient: 25-34 minutes
[2018-06-18] MEDS: ARIPIPRAZOLE 5 MG TABLET PO SCH (21:49)
[2018-06-18] MEDS: ESCITALOPRAM OXALATE 10 MG TABLET PO SCH (21:49)
[2018-06-19] MEDS: IPRATROPIUM/ALBUTEROL 0.5-2.5 MG/3 ML AMPUL NEB SCH ×2 (00:25→08:07)
[2018-06-19] MEDS: HYDROMORPHONE HCL INJ/PF 2 MG/ML AMPULE IV PRN ×2 (04:49→08:12)
[2018-06-19] MEDS: DIPHENHYDRAMINE HCL 25 MG CAPSULE PO PRN (08:12)
[2018-06-19] MEDS: NORMAL SALINE 1000 ML 1,000 ML IV PRN (08:13)
--- NOTE | 2018-06-19 08:50 | PDOC PROGRESS REPORT ---
Subjective Progress Note for:: 06/19/18 Subjective:: Patient doing better today, feels ready for discharge Reason For Visit: SICKLE CELL CRISIS Physical Exam Vital Signs: Temp Pulse Resp BP Pulse Ox 99.2 F 84 14 111/58 L 93 06/19/18 07:27 06/19/18 08:07 06/19/18 08:07 06/19/18 07:27 06/19/18 08:07 Intake & Output 06/18/18 06/19/18 06/20/18 06:59 06:59 06:59 Intake Total 4826 4536 Output Total 5300 1645 Balance -474 2891 Weight 69.1 kg 72.1 kg General appearance: PRESENT: no acute distress, well-developed, well-nourished Head exam: PRESENT: atraumatic, normocephalic Eye exam: PRESENT: conjunctiva pink, EOMI, PERRLA. ABSENT: scleral icterus Ear exam: PRESENT: normal external ear exam Mouth exam: PRESENT: moist, tongue midline Neck exam: ABSENT: carotid bruit, JVD, lymphadenopathy, thyromegaly Respiratory exam: PRESENT: clear to auscultation samaria. ABSENT: rales, rhonchi, wheezes Cardiovascular exam: PRESENT: RRR. ABSENT: diastolic murmur, rubs, systolic murmur Pulses: PRESENT: normal dorsalis pedis pul Vascular exam: PRESENT: normal capillary refill GI/Abdominal exam: PRESENT: normal bowel sounds, soft. ABSENT: distended, guarding, mass, organolmegaly, rebound, tenderness Rectal exam: PRESENT: deferred Extremities exam: PRESENT: full ROM. ABSENT: calf tenderness, clubbing, pedal edema Neurological exam: PRESENT: alert, awake, oriented to person, oriented to place, oriented to time, oriented to situation, CN II-XII grossly intact. ABSENT: motor sensory deficit Psychiatric exam: PRESENT: appropriate affect, normal mood. ABSENT: homicidal ideation, suicidal ideation Skin exam: PRESENT: dry, intact, warm. ABSENT: cyanosis, rash Results Laboratory Results: 06/18/18 05:35 06/16/18 06:08 06/14/18 00:55 Troponin I 0.015 Impressions: Chest X-Ray 06/14/18 08:48 IMPRESSION: No evidence of acute cardiopulmonary disease. Assessment & Plan - Diagnosis (1) Sickle cell pain crisis Is this a current diagnosis for this admission?: Yes Plan: Pain improved enough to continue recovery at home. Discharge home today. She does have oxycodone, I have asked her significant other to check at home to see how much oral pain medication she has. 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 Otherwise no other scripts needed. She has follow-up next week in our office. 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
[2018-06-19] MEDS: FOLIC ACID 1 MG TABLET PO SCH (10:08)
[2018-06-19] MEDS: RIVAROXABAN 10 MG TABLET PO SCH (10:08)
[2018-06-19] MEDS: HYDROXYUREA 500 MG CAPSULE PO SCH (10:08)
[2018-06-19 12:21] VITALS: BP 124/53
--- NOTE | 2018-06-19 18:08 | PDOC DISCHARGE SUMMARY ---
General - Admit/Disc Date/PCP Admission Date/Primary Care Provider: 06/14/18 05:04 JOIE MOREIRA MD Discharge Date: 06/19/18 - Discharge Diagnosis (1) Acute sickle cell crisis Is this a current diagnosis for this admission?: Yes Summary: Resolved after lots of IV fluids and pain medication. She will follow up with her head sulfide operator as an outpatient. 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 Presents with 5 days of increasing chest pain prompting evaluation in the emergency room 12 hours ago but was improved and discharged home only to return with left-sided chest wall pain worsened by deep breathing and movement. She denies palpitations or shortness of breath. On reevaluation she is found to have a drop of her hemoglobin of 1 g she receives IV Dilaudid, normal saline and referred to the hospitalist for admission. Patient denies rec ent infectious contacts or fever. Hospital Course Hospital Course: She was seen in consultation by her head sulfide operator. She was given some IV fluids and pain medication. Over the course of several days her symptoms improved. She was able to be transitioned off of her pain medication and back on the when she was taking at home. She will follow-up with her head sulfide operator and approximately 1 week. Her labs and examination were reassuring and she was discharged home in good condition. Physical Exam Vital Signs: Temp Pulse Resp BP Pulse Ox 99.1 F 84 14 124/53 L 93 06/19/18 12:19 06/19/18 12:19 06/19/18 12:19 06/19/18 12:19 06/19/18 12:19 Intake & Output 06/18/18 06/19/18 06/20/18 06:59 06:59 06:59 Intake Total 4886 4536 Output Total 5301 1645 Balance -474 2891 Weight 69.1 kg 72.1 kg General appearance: PRESENT: Appeared over sedated, cooperative Mouth exam: PRESENT: moist, neck supple Neck exam: PRESENT: full ROM. ABSENT: JVD, lymphadenopathy, thyromegaly, tra cheal deviation Cardiovascular exam: PRESENT: RRR. ABSENT: gallop, rubs GI/Abdominal exam: PRESENT: normal bowel sounds, soft. ABSENT: tenderness Extremities exam: ABSENT: pedal edema, tenderness Neurological exam: PRESENT: Drowsy but arousable, oriented to person, oriented to place, oriented to time, oriented to situation Psychiatric exam: ABSENT: Somnolent Skin exam: PRESENT: normal color, warm Results Laboratory Results: 06/18/18 05:35 06/16/18 06:08 06/14/18 00:55 Troponin I 0.015 Impressions: Chest X-Ray 06/14/18 08:48 IMPRESSION: No evidence of acute cardiopulmonary disease. Qualifiers - * PATIENT BEING DISCHARGED WITH ANY OF THE FOLLOWING DIAGNOSIS: No
== END 2018-06-19 12:55 | disposition home or self-care (01) | DRG 812 ==
LOC: ER 22:45 → OBSVTOIN 06-14 05:04 → EH 06-14 05:04 → 3N 06-14 06:47 → 4S 06-15 14:18
PROVIDERS: ADMIT Internal Medicine; ATTEND Internal Medicine
PROC: 3E0F73Z Introduction of Anti-inflammatory into Respiratory Tract, Via Natural or Artificial Opening (ICD-10-PCS; principal; 2018-06-14)
PROC: 3E02340 Introduction of Influenza Vaccine into Muscle, Percutaneous Approach (ICD-10-PCS; 2018-06-19)
DX: D57.00 Hb-SS disease with crisis, unspecified (principal); F32.9 Major depressive disorder, single episode, unspecified; F41.9 Anxiety disorder, unspecified; Z23 Encounter for immunization; Z79.899 Other long term (current) drug therapy; Z90.49 Acquired absence of other specified parts of digestive tract; Z88.6 Allergy status to analgesic agent; Z91.018 Allergy to other foods; Z86.718 Personal history of other venous thrombosis and embolism
CPT/HCPCS: 36415; 36591; 71046; 80053; 80069; 81001; 82607; 82746; 83615; 83735; 84484; 85025; 85027; 85045; 90471; 90686; 93005; 93010; 94799; 96361; 96374; 99285; G0008; J1170; J1200; J1644; J3490; J7030; J7620

== ENCOUNTER 2018-06-22 16:04 | Emergency (ER) | payer MEDICAID ==
--- NOTE | 2018-06-22 16:26 | ER Document Report ---
ED Medical Screen (RME) - General Chief Complaint: Pain All Over Stated Complaint: BACK PAIN Time Seen by Provider: 06/22/18 16:23 Primary Care Provider: JOIE MOREIRA MD [Primary Care Provider] - Follow up as needed Mode of Arrival: Ambulatory Information source: Patient Notes: pt reports chest and back pain, hx sickle cell, just discharged friday. c/o vomiting. I have greeted and performed a rapid initial assessment of this patient. A comprehensive ED assessment and evaluation of the patient, analysis of test results and completion of the medical decision making process will be conducted by additional ED providers. TRAVEL OUTSIDE OF THE [place] IN LAST 30 DAYS: No - Related Data Allergies/Adverse Reactions: morphine Allergy (Severe, Verified 06/22/18 16:13) RASH,SWELLING jacob peppers Adverse Reaction (Severe, Uncoded 06/22/18 16:13) throat closes Past Medical History - Social History Family history: Reviewed & Not Pertinent, Other - Pt was adopted. Does not know family history - Past Medical History Cardiac Medical History: Reports: Hx DVT - RUE s/p port placement Pulmonary Medical History: Reports: Hx Asthma, Hx Bronchitis - once in past per patient, Hx Pneumonia - 2014 Neurological Medical History: Endocrine Medical History: Denies: Hx Diabetes Mellitus Type 1, Hx Diabetes Mellitus Type 2 Renal/ Medical History: Denies: Hx Peritoneal Dialysis GI Medical History: Musculoskeltal Medical History: Reports Hx Musculoskeletal Trauma Psychiatric Medical History: Reports: Hx Anxiety, Hx Depression Past Surgical History: Reports: Hx Cholecystectomy - 06/28/2015, Hx Vascular Surgery - port put in December,, Other - Port-A-Cath in right upper chest - Immunizations Immunizations up to date: Yes Hx Diphtheria, Pertussis, Tetanus Vaccination: Yes History of Influenza Vaccine for 12/2016 - 05/2017 Season: Yes Influenza Administration Date for 12/2016 - 05/2017 Season: 03/11/17 Physical Exam - Vital signs Vitals: Temp Pulse Resp BP Pulse Ox 98.8 F 102 H 18 140/78 H 95 06/22/18 16:24 06/22/18 16:24 06/22/18 16:24 06/22/18 16:24 06/22/18 16:24 Course - Vital Signs Vital signs: Temp Pulse Resp BP Pulse Ox 98.8 F 102 H 18 140/78 H 95 06/22/18 16:24 06/22/18 16:24 06/22/18 16:24 06/22/18 16:24 06/22/18 16:24 Doctor's Discharge - Discharge Referrals: JOIE MOREIRA MD [Primary Care Provider] - Follow up as needed
[2018-06-22] MEDS ORDERED: ONDANSETRON HCL INJ/PF 4 MG/2 ML SDV IV ONE (18:46)
[2018-06-22] MEDS ORDERED: HYDROMORPHONE HCL INJ/PF 2 MG/ML AMPULE IV ONE ×2 (18:46→19:51)
[2018-06-22] MEDS ORDERED: NORMAL SALINE 1000 ML 1,000 ML IV ONE (18:47)
[2018-06-22] MEDS ORDERED: DIPHENHYDRAMINE HCL 50 MG/ML VIAL IV ONE ×2 (19:23→21:02)
[2018-06-22 19:41] LABS: ABSOLUTE RETICS # 0.268 10^6/uL (0.028-0.122); MEAN CORPUSCULAR VOLUME 109 fl (80-97); PLATELET COUNT 462 10^3/uL (150-450); RETICULOCYTE COUNT (AUTO) 11.64 % (0.66-2.85); WHITE BLOOD COUNT 15.8 10^3/uL (4.0-10.5)
[2018-06-22 19:48] LABS: ALANINE AMINOTRANSFERASE 28 U/L (9-52); ALBUMIN 4.5 g/dL (3.5-5.0); ALKALINE PHOSPHATASE 75 U/L (38-126); ANION GAP 12 (5-19); ASPARTATE AMINO TRANSFERASE 35 U/L (14-36); BILIRUBIN,DIRECT 0.7 mg/dL (0.0-0.4); BILIRUBIN,TOTAL 6.6 mg/dL (0.2-1.3); BLOOD UREA NITROGEN 5 mg/dL (7-20); CALCIUM 9.5 mg/dL (8.4-10.2); CARBON DIOXIDE 22 mmol/L (22-30); CHLORIDE 106 mmol/L (98-107); GLUCOSE 89 mg/dL (75-110); POTASSIUM 3.4 mmol/L (3.6-5.0); SODIUM 140.1 mmol/L (137-145); TOTAL PROTEIN 8.3 g/dL (6.3-8.2)
--- NOTE | 2018-06-22 20:00 | ER Document Report ---
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 Patient states that she was seen 3 days prior to arrival and did have some improvement of pain but that it "flared up again". Patient is well-known to the department. She has specific medications that she requests. She states this feels typical of her usual sickle cell flare. Patient does have an upcoming appointment with her dry cleaning checker. She denies any fever, chills, nausea, vomiting, cough, abdominal pain, dysuria, hematuria. Patient admits that she has been out of her pain medication but does have an upcoming appointment with her dry cleaning checker. TRAVEL OUTSIDE OF THE [place] IN LAST 30 DAYS: No - HPI Onset: Yesterday Onset/Duration: Gradual, Persistent Quality of pain: Throbbing Severity: Moderate Associated symptoms: Body/muscle aches, Chest pain, Other - Back pain with Exacerbated by: Denies Relieved by: Denies Similar symptoms previously: Yes Recently seen / treated by doctor: Yes - Related Data Allergies/Adverse Reactions: morphine Allergy (Severe, Verified 06/22/18 16:13) RASH,SWELLING jacob peppers Adverse Reaction (Severe, Uncoded 06/22/18 16:13) throat closes Past Medical History - General Information source: Patient - Social History Smoking Status: Never Smoker Frequency of alcohol use: None Drug Abuse: None Lives with: Family Family History: Other - Sickle cell disease and sickle cell trait, asthma Patient has suicidal ideation: No Patient has homicidal ideation: No - Past Medical History Cardiac Medical History: Reports: Hx DVT - RUE s/p port placement Pulmonary Medical History: Reports: Hx Asthma, Hx Bronchitis - once in past per patient, Hx Pneumonia - 2014 Neurological Medical History: Endocrine Medical History: Denies: Hx Diabetes Mellitus Type 1, Hx Diabetes Mellitus Type 2 Renal/ Medical History: Denies: Hx Peritoneal Dialysis GI Medical History: Musculoskeletal Medical History: Reports Hx Musculoskeletal Trauma Psychiatric Medical History: Reports: Hx Anxiety, Hx Depression Past Surgical History: Reports: Hx Cholecystectomy - 06/28/2015, Hx Vascular Surgery - port put in December,, Other - Port-A-Cath in right upper chest - Immunizations Immunizations up to date: Yes Hx Diphtheria, Pertussis, Tetanus Vaccination: Yes Review of Systems - Review of Systems Notes: REVIEW OF SYSTEMS: CONSTITUTIONAL : Denies fever, chills, or sweats. Denies recent illness. Denies weight loss, recent hospitalizations. EENT: Denies visual changes, eye pain. Denies sore throat, oral lesions, difficulty swallowing. CARDIOVASCULAR: Denies palpitations. Denies lower extremity edema. RESPIRATORY: Denies cough. Denies shortness of breath, wheezing. GASTROINTESTINAL: Denies abdominal pain or distention. Denies nausea, vomiting, or diarrhea. Denies blood in vomitus, stools, or per rectum. Denies black, tarry stools. Denies constipation. GENITOURINARY: Denies difficulty urinating, painful urination, frequency, blood in urine, or vaginal discharge. MUSCULOSKELETAL: Denies neck pain or stiffness. Denies joint pain or swelling. SKIN: Denies rash, lesions or sores. HEMATOLOGIC : Denies easy bruising or bleeding. LYMPHATIC: Denies swollen glands. NEUROLOGICAL: Denies confusion or altered mental status. Denies loss of consciousness. Denies dizziness or lightheadedness. Denies headache. Denies weakness or paralysis. Denies problems difficulty with ambulation, slurred speech. Denies sensory loss, numbness, or tingling. Denies seizures. PSYCHIATRIC: Denies anxiety or stress. Denies depression, suicidal ideation, or homicidal ideation. Denies visual or auditory hallucinations. Physical Exam - Vital signs Vitals: Temp Pulse Resp BP Pulse Ox 98.8 F 102 H 18 140/78 H 95 06/22/18 16:24 06/22/18 16:24 06/22/18 16:24 06/22/18 16:24 06/22/18 16:24 - Notes Notes: PHYSICAL EXAMINATION: GENERAL: Well-appearing, well-nourished and in no acute distress. HEAD: Atraumatic, normocephalic. EYES: Pupils equal round and reactive to light, extraocular movements intact, conjunctiva are normal. ENT: Nares patent, oropharynx clear without exudates. Moist mucous membranes. NECK: Normal range of motion, supple without lymphadenopathy LUNGS: Breath sounds clear to auscultation bilaterally and equal. No wheezes rales or rhonchi. HEART: Regular rate and rhythm without murmurs ABDOMEN: Soft, nontender, nondistended abdomen. No guarding, no rebound. No masses appreciated. Female : deferred Musculoskeletal: Normal range of motion, no pitting or edema. No cyanosis. NEUROLOGICAL: Cranial nerves grossly intact. Normal speech, normal gait. Normal sensory, motor exams PSYCH: Normal mood, normal affect. SKIN: Warm, Dry, normal turgor, no rashes or lesions noted. Course - Re-evaluation Re-evalutation: 06/22/18 21:52 Chest X-Ray 06/22/18 19:52 IMPRESSION: No evidence of acute cardiopulmonary disease. Temp Pulse Resp BP Pulse Ox 98.8 F 102 H 18 140/78 H 95 06/22/18 16:24 06/22/18 16:24 06/22/18 16:24 06/22/18 16:24 06/22/18 16:24 23-year-old female presents with chest and back pain typical of her sickle cell pain crisis flares. Vital signs reviewed upon arrival. Patient does not appear toxic or dehydrated. She is in no acute distress. Upon my exam patient is alert, awake and texting on her phone. She is asking for something to drink. Patient did receive IV fluids, IV Dilaudid, Benadryl and on reevaluation reports improvement of symptoms. Does have an upcoming appointment with her dry cleaning checker in 2 days. Does admit that she has been out of her home pain medication. Previous medical records and nursing notes reviewed. Patient discharged home in stable condition. - Vital Signs Vital signs: Temp Pulse Resp BP Pulse Ox 98.8 F 102 H 18 140/78 H 95 06/22/18 16:24 06/22/18 16:24 06/22/18 16:24 06/22/18 16:24 06/22/18 16:24 - Laboratory Result Diagrams: 06/22/18 19:15 06/22/18 19:15 Laboratory results interpreted by me: 06/22/18 06/22/18 06/22/18 19:15 19:15 19:40 WBC 15.8 H RBC 2.30 L Hgb 8.4 L Hct 27.0 L MCV 109 H MCH 36.5 H RDW 17.1 H Plt Count 462 H Seg Neuts % (Manual) 80 H Monocytes % (Manual) 1 L Abs Neuts (Manual) 12.6 H Retic Count (auto) 11.64 H Absolute Retic 0.268 H Potassium 3.4 L BUN 5 L Total Bilirubin 6.6 H Direct Bilirubin 0.7 H Total Protein 8.3 H Urine Ketones 20 H Urine Urobilinogen 2.0 H Ur Leukocyte Esterase SMALL H - Diagnostic Test Radiology reviewed: Image reviewed, Reports reviewed Discharge - Discharge Clinical Impression: Sickle cell pain crisis Sickle cell anemia Qualifiers: Sickle-cell associated disorders: with unspecified crisis Qualified Code(s): D57.00 - Hb-SS disease with crisis, unspecified Back pain Qualifiers: Back pain location: back pain in unspecified location Chronicity: chronic Back pain laterality: unspecified Qualified Code(s): M54.9 - Dorsalgia, unspecified Condition: Good Disposition: HOME, SELF-CARE Instructions: Sickle Cell Crisis ([facility]) Additional Instructions: Please follow-up with Dr. Marks as already scheduled for Sunday, June 24, 2018 Prescriptions: Hydromorphone HCl [Dilaudid 2 mg Tablet] 2 mg PO Q6H #6 tablet Forms: Elevated Blood Pressure Referrals: JOIE MOREIRA MD [Primary Care Provider] - 06/24/18
[2018-06-22 20:09] LABS: HEMOGLOBIN 8.4 g/dL (12.0-15.5); MEAN CORPUSCULAR HGB CONC 33.5 g/dL (32.0-36.0); RED CELL DISTRIBUTION WIDTH 17.1 % (11.5-14.0)
[2018-06-22 20:10] LABS: MEAN CORPUSCULAR HEMOGLOBIN 36.5 pg (27.0-33.4)
[2018-06-22 20:24] LABS: ABSOLUTE LYMPHOCYTES# (MANUAL) 2.8 10^3/uL (0.5-4.7); ABSOLUTE MONOCYTES # (MANUAL) 0.2 10^3/uL (0.1-1.4); ABSOLUTE NEUTROPHILS# (MANUAL) 12.6 10^3/uL (1.7-8.2); ANISOCYTOSIS 2+; BASOPHILS % (MANUAL) 1 % (0-2); EOSINOPHILS % (MANUAL) 0 % (0-6); HYPOCHROMASIA 2+; LYMPHOCYTES % (MANUAL) 18 % (13-45); MONOCYTES % (MANUAL) 1 % (3-13); NUCLEATED RED BLOOD CELLS 5 /100 WBC (0); POLYCHROMASIA 1+; SEGMENTED NEUTROPHILS % (MAN) 80 % (42-78); TARGET CELLS 2+; TOTAL CELLS COUNTED 100
[2018-06-22 20:25] LABS: PLATELET COMMENT ADEQUATE
[2018-06-22 20:26] LABS: SICKLE RED CELLS SLIGHT
[2018-06-22 20:29] LABS: APPEARANCE,URINE SLIGHTLY-CLOUDY; BILIRUBIN,URINE NEGATIVE (NEGATIVE); COLOR,URINE YELLOW; GLUCOSE, URINE NEGATIVE (NEGATIVE); KETONES,URINE 20 mg/dL (NEGATIVE); LEUKOCYTE ESTERASE,URINE SMALL (NEGATIVE); NITRITE,URINE NEGATIVE (NEGATIVE); PROTEIN,URINE NEGATIVE (NEGATIVE); URINE SPECIFIC GRAVITY 1.013
--- NOTE | 2018-06-22 20:37 | RADIOLOGY REPORT (SQ) ---
XR CHEST 2 VIEWS EXAM DATE: 06/22/2018 19:52 HISTORY: Chest pain. COMPARISON: 12/13/2017 FINDINGS: The heart size is normal. No consolidation, pleural effusion, or pneumothorax is seen. There are no acute bony findings. The right central venous line is stable. IMPRESSION: No evidence of acute cardiopulmonary disease.
[2018-06-22] MEDS ORDERED: FENTANYL CITRATE INJ/PF 100 MCG/2 ML AMPUL IV ONE (21:02)
[2018-06-22 22:33] VITALS: BP 114/62
== END 2018-06-22 22:35 | disposition home or self-care (01) ==
LOC: ER 16:04
DX: D57.00 Hb-SS disease with crisis, unspecified (principal); M54.9 Dorsalgia, unspecified; D64.9 Anemia, unspecified; R07.9 Chest pain, unspecified; M79.10 Myalgia, unspecified site; J45.909 Unspecified asthma, uncomplicated
CPT/HCPCS: 36591; 96376; 99284; 96361; 96374; 96375; 36415; 85025; 81025; 85045; 80053; 81001; 71046; J1200; J3010; J1170; J2405; J7030

== ENCOUNTER 2018-06-25 10:23 | Outpatient (CLI) | payer MEDICAID ==
[2018-06-25] MEDS ORDERED: NORMAL SALINE 1000 ML 1,000 ML IV PRN (10:28)
[2018-06-25] MEDS ORDERED: HYDROMORPHONE HCL INJ/PF 2 MG/ML AMPULE IV PRN (10:29)
[2018-06-25 10:49] VITALS: BP 117/67
== END 2018-06-25 12:35 | disposition home or self-care (01) ==
LOC: II 10:23 → 5TH 10:26 → II 12:35
PROVIDERS: ATTEND Internal Medicine
PROC: 3E043GC Introduction of Other Therapeutic Substance into Central Vein, Percutaneous Approach (ICD-10-PCS; principal; 2018-06-25)
PROC: 3E0437Z Introduction of Electrolytic and Water Balance Substance into Central Vein, Percutaneous Approach (ICD-10-PCS; 2018-06-25)
DX: R52 Pain, unspecified (principal); E86.0 Dehydration
CPT/HCPCS: 96374; 96360; J1170; 96361

== ENCOUNTER 2018-06-26 08:01 | Outpatient (CLI) | payer MEDICAID ==
[2018-06-26 08:14] VITALS: BP 104/62
== END 2018-06-26 09:15 | disposition home or self-care (01) ==
LOC: II 08:01 → 5TH 08:03 → II 09:15
PROVIDERS: ATTEND Internal Medicine
PROC: 3E043GC Introduction of Other Therapeutic Substance into Central Vein, Percutaneous Approach (ICD-10-PCS; principal; 2018-06-26)
PROC: 3E0437Z Introduction of Electrolytic and Water Balance Substance into Central Vein, Percutaneous Approach (ICD-10-PCS; 2018-06-26)
DX: D57.1 Sickle-cell disease without crisis (principal); R52 Pain, unspecified; E86.0 Dehydration
CPT/HCPCS: 96374; 96360; J1170; 96361

== ENCOUNTER 2018-07-01 22:27 | Emergency (ER) | payer MEDICAID ==
[2018-07-01 22:36] VITALS: BP 121/62
[2018-07-01] MEDS ORDERED: HYDROMORPHONE HCL INJ/PF 2 MG/ML AMPULE IV ONE (22:48)
[2018-07-01] MEDS ORDERED: DIPHENHYDRAMINE HCL 50 MG/ML VIAL IV ONE (22:48)
--- NOTE | 2018-07-01 22:50 | ER Document Report ---
ED Medical Screen (RME) - General Chief Complaint: Sickle Cell Crisis Stated Complaint: LOWER BACK PAIN Time Seen by Provider: 07/01/18 22:46 Primary Care Provider: JOIE MOREIRA MD [Primary Care Provider] - Follow up as needed Notes: Patient is a 23-year-old female very familiar with the emergency room presents for lower back pain due to sickle cell. Patient states she has an extensive history of sickle cell and typically gets lower back pain. States pain is exactly like her normal sickle cell crisis pain. Patient states she did take her Dilaudid at 1800 without relief. Patient smells heavily of marijuana. LUNGS: Clear to auscultation bilaterally, no wheezes, rales, or rhonchi. No respiratory distress. HEART: Regular rate and rhythm. No murmur I have greeted and performed a rapid initial assessment of this patient. A comprehensive ED assessment and evaluation of the patient, analysis of test results and completion of the medical decision making process will be conducted by additional ED providers. TRAVEL OUTSIDE OF THE [place] IN LAST 30 DAYS: No - Related Data Allergies/Adverse Reactions: morphine Allergy (Severe, Verified 07/01/18 22:45) RASH,SWELLING jacob peppers Adverse Reaction (Severe, Uncoded 06/22/18 16:13) throat closes Past Medical History - Social History Family history: Reviewed & Not Pertinent, Other - Pt was adopted. Does not know family history - Past Medical History Cardiac Medical History: Reports: Hx DVT - RUE s/p port placement Pulmonary Medical History: Reports: Hx Asthma, Hx Bronchitis - once in past per patient, Hx Pneumonia - 2014 Neurological Medical History: Endocrine Medical History: Denies: Hx Diabetes Mellitus Type 1, Hx Diabetes Mellitus Type 2 Renal/ Medical History: Denies: Hx Peritoneal Dialysis GI Medical History: Musculoskeltal Medical History: Reports Hx Musculoskeletal Trauma Psychiatric Medical History: Reports: Hx Anxiety, Hx Depression Past Surgical History: Reports: Hx Cholecystectomy - 06/28/2015, Hx Vascular Surgery - port put in December,, Other - Port-A-Cath in right upper chest - Immunizations Immunizations up to date: Yes Hx Diphtheria, Pertussis, Tetanus Vaccination: Yes History of Influenza Vaccine for 12/2016 - 05/2017 Season: Yes Influenza Administration Date for 12/2016 - 05/2017 Season: 03/11/17 Physical Exam - Vital signs Vitals: Temp Pulse Resp BP Pulse Ox 98.7 F 87 16 121/62 97 07/01/18 22:34 07/01/18 22:34 07/01/18 22:34 07/01/18 22:34 07/01/18 22:34 Course - Vital Signs Vital signs: Temp Pulse Resp BP Pulse Ox 98.7 F 87 16 121/62 97 07/01/18 22:34 07/01/18 22:34 07/01/18 22:34 07/01/18 22:34 07/01/18 22:34 Doctor's Discharge - Discharge Referrals: JOIE MOREIRA MD [Primary Care Provider] - Follow up as needed
[2018-07-02 01:38] LABS: ABSOLUTE RETICS # 0.149 10^6/uL (0.028-0.122); HEMATOCRIT 27.2 % (36.0-47.0); HEMOGLOBIN 9.9 g/dL (12.0-15.5); MEAN CORPUSCULAR HEMOGLOBIN 39.7 pg (27.0-33.4); MEAN CORPUSCULAR HGB CONC 36.4 g/dL (32.0-36.0); MEAN CORPUSCULAR VOLUME 109 fl (80-97); PLATELET COUNT 483 10^3/uL (150-450); RED BLOOD COUNT 2.49 10^6/uL (3.72-5.28); RED CELL DISTRIBUTION WIDTH 13.8 % (11.5-14.0); RETICULOCYTE COUNT (AUTO) 5.96 % (0.66-2.85); WHITE BLOOD COUNT 9.5 10^3/uL (4.0-10.5)
--- NOTE | 2018-07-02 01:47 | ER Document Report ---
ED General - General Chief Complaint: Sickle Cell Crisis Stated Complaint: LOWER BACK PAIN Time Seen by Provider: 07/02/18 01:47 Primary Care Provider: JOIE MOREIRA MD [Primary Care Provider] - Follow up as needed Mode of Arrival: Ambulatory Information source: Patient Notes: HISTORY OF PRESENT ILLNESS: Patient is a 23-year-old female with a past medical history of sickle cell disease who presents with lower abdomen and back pain that is typical of her sickle cell pain. At home, the patient reports taking oral Dilaudid every 6 hours as needed for pain control. Location: Low back, abdomen Onset: Today Provocation: Movement Quality: Throbbing Radiation: None Severity: Currently moderate, severe at worst Timing: Instant Associated symptoms: No fevers or chills, no cough or congestion, no chest pain or shortness of breath REVIEW OF SYSTEMS: CONSTITUTIONAL : Denies fever or chills, no sweats. Denies recent illness. EENT: Denies eye, ear, throat, or mouth pain or symptoms. Denies nasal or sinus congestion. CARDIOVASCULAR: Denies chest pain. RESPIRATORY: Denies cough, cold, or chest congestion. Denies shortness of breath, difficulty breathing, or wheezing. GASTROINTESTINAL: Positive for abdominal pain. Denies nausea, vomiting, or diarrhea. Denies constipation. GENITOURINARY: Denies difficulty urinating, painful urination, burning, frequency, or blood in urine. Denies vaginal bleeding, abnormal or irregular periods. MUSCULOSKELETAL: Positive for back pain. Denies neck or joint swelling. SKIN: Denies rash or skin lesions. HEMATOLOGIC : Denies easy bruising or bleeding. LYMPHATIC: Denies swollen, enlarged glands. NEUROLOGICAL: Denies altered mental status or loss of consciousness. Denies headache. Denies weakness or paralysis or loss of use of either side. Denies problems with gait or speech. Denies sensory or motor loss. PSYCHIATRIC: Denies anxiety or stress or depression. All other systems reviewed and negative. PHYSICAL EXAMINATION: GENERAL: Well-appearing, well-nourished and in no acute distress. HEAD: Atraumatic, normocephalic. No scalp deformity, depression, or crepitance. EYES: Pupils are 3 mm and equal/round/reactive to light, extraocular movements intact, sclera anicteric, conjunctiva are normal. ENT: Nares patent bilaterally, oropharynx clear without exudates or palatal petechia. Moist mucous membranes. No tonsil hypertrophy. NECK: Normal range of motion, supple without lymphadenopathy. LUNGS: Breath sounds present, equal, and clear to auscultation bilaterally. No wheezes, rales, or rhonchi. HEART: Regular rate and rhythm without murmurs, rubs, or gallops. 2+ peripheral pulses. Normal capillary refill. ABDOMEN: Soft, nontender, nondistended. Normoactive bowel sounds. No guarding, no rebound. No masses appreciated. BACK: Normal contour, no midline tenderness. Rectal exam deferred. PELVC: Deferred. EXTREMITIES: Normal range of motion, no pitting or edema. No cyanosis. NEUROLOGICAL: No focal neurological deficits. Moves all extremities spontaneously and on command. PSYCH: Normal mood, normal affect. No suicidal thoughts/ideations. No homocidal thoughts/ideations. No hallucinations. SKIN: Warm, dry, normal turgor, no rashes or lesions noted. ASSESSMENT AND PLAN: This patient is a 23-year-old female who presents with back pain consistent with sickle cell pain crisis. There is no concern for acute chest syndrome as the patient has no chest pain, has a normal oxygen saturation, is not tachycardic, and is in no distress. 1. Will obtain labs, urine, reticulocyte count, start IV fluids with supplemental oxygen, give IV ketamine for pain control, and reassess. 2. Will observe until improved. TRAVEL OUTSIDE OF THE [place] IN LAST 30 DAYS: No - Related Data Allergies/Adverse Reactions: morphine Allergy (Severe, Verified 07/01/18 22:45) RASH,SWELLING jacob peppers Adverse Reaction (Severe, Uncoded 06/22/18 16:13) throat closes Past Medical History - General Information source: Patient - Social History Smoking Status: Current Every Day Smoker Chew tobacco use (# tins/day): No Frequency of alcohol use: None Drug Abuse: None Lives with: Family Family History: Other - Sickle cell disease and sickle cell trait, asthma Patient has suicidal ideation: No Patient has homicidal ideation: No - Past Medical History Cardiac Medical History: Reports: Hx DVT - RUE s/p port placement Pulmonary Medical History: Reports: Hx Asthma, Hx Bronchitis - once in past per patient, Hx Pneumonia - 2014 EENT Medical History: Reports: None Neurological Medical History: Reports: None Endocrine Medical History: Reports: None. Denies: Hx Diabetes Mellitus Type 1, Hx Diabetes Mellitus Type 2 Renal/ Medical History: Reports: None. Denies: Hx Peritoneal Dialysis Malignancy Medical History: Reports: None GI Medical History: Reports: None Musculoskeletal Medical History: Reports Hx Musculoskeletal Trauma Skin Medical History: Reports None Psychiatric Medical History: Reports: Hx Anxiety, Hx Depression Traumatic Medical History: Reports: None Infectious Medical History: Reports: None Past Surgical History: Reports: Hx Cholecystectomy - 06/28/2015, Hx Vascular Surgery - port put in December,, Other - Port-A-Cath in right upper chest - Immunizations Immunizations up to date: Yes Hx Diphtheria, Pertussis, Tetanus Vaccination: Yes Physical Exam - Vital signs Vitals: Temp Pulse Resp BP Pulse Ox 98.7 F 87 16 121/62 97 07/01/18 22:34 07/01/18 22:34 07/01/18 22:34 07/01/18 22:34 07/01/18 22:34 Course - Re-evaluation Re-evalutation: 07/02/18 04:43 Labs show baseline anemia and reticulocyte count for the patient that is an ap propriate response. Patient was given IV ketamine initially with improvement, then was given oral oxycodone and her pain is now resolved. 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 Patient voices both understanding and agreeing with the plan. - Vital Signs Vital signs: Temp Pulse Resp BP Pulse Ox 98.7 F 87 16 121/62 100 07/01/18 22:34 07/01/18 22:34 07/01/18 22:34 07/01/18 22:34 07/02/18 03:07 - Laboratory Result Diagrams: 07/02/18 01:20 07/02/18 01:20 Laboratory results interpreted by me: 07/02/18 07/02/18 07/02/18 00:11 01:20 01:20 RBC 2.49 L Hgb 9.9 L Hct 27.2 L MCV 109 H MCH 39.7 H MCHC 36.4 H Plt Count 483 H Retic Count (auto) 5.96 H Absolute Retic 0.149 H Chloride 110 H BUN 5 L Creatinine 0.45 L Total Bilirubin 2.8 H Urine Urobilinogen 4.0 H - Diagnostic Test Radiology reviewed: Image reviewed, Reports reviewed - EKG Interpretation by Me EKG shows normal: Sinus rhythm Rate: Normal Rhythm: NSR [place]/QRS: No: Right axis deviation, Left axis deviation, RBBB, LBBB, IVCD, LAHB/LAFB, LPHB/LPFB, Bifasicular block Voltage: No: Increased voltage, Consistant with LVH, Decreased voltage, Throughout, Limb leads P Waves: No: COURTNEY, LAE, Absent, AV Dissociation, Other Heart block present: No: 1st Degree, Mobitz 1, Mobitz 2, CHB (3rd degree block) When compared to previous EKG there are: No significant change Discharge - Discharge Clinical Impression: Sickle cell pain crisis Condition: Good Disposition: HOME, SELF-CARE Instructions: Sickle Cell Crisis ([facility]) Additional Instructions: You have been evaluated in the Emergency Department for back pain related to your sickle cell disease. While here, you had blood work that were at her baseline and it is now safe to be discharged home. Please follow-up with your primary physician as instructed in 1 week to be rechecked. Return to the Emergency Department if you experience worsening pain, difficulty breathing, uncontrollable chest pain, or any other concerning symptoms. Referrals: JOIE MOREIRA MD [Primary Care Provider] - Follow up as needed Print Language: Nepali
[2018-07-02 01:50] LABS: ALANINE AMINOTRANSFERASE 15 U/L (9-52); ALBUMIN 3.6 g/dL (3.5-5.0); ALKALINE PHOSPHATASE 69 U/L (38-126); ANION GAP 7 (5-19); ASPARTATE AMINO TRANSFERASE 18 U/L (14-36); BILIRUBIN,DIRECT 0.3 mg/dL (0.0-0.4); BILIRUBIN,TOTAL 2.8 mg/dL (0.2-1.3); BLOOD UREA NITROGEN 5 mg/dL (7-20); CALCIUM 8.8 mg/dL (8.4-10.2); CARBON DIOXIDE 26 mmol/L (22-30); CHLORIDE 110 mmol/L (98-107); GLUCOSE 88 mg/dL (75-110); POTASSIUM 3.6 mmol/L (3.6-5.0); SODIUM 142.6 mmol/L (137-145); TOTAL PROTEIN 6.7 g/dL (6.3-8.2)
[2018-07-02 01:59] LABS: ABSOLUTE LYMPHOCYTES# (MANUAL) 3.2 10^3/uL (0.5-4.7); ABSOLUTE MONOCYTES # (MANUAL) 1.1 10^3/uL (0.1-1.4); ABSOLUTE NEUTROPHILS# (MANUAL) 4.5 10^3/uL (1.7-8.2); BASOPHILS % (MANUAL) 1 % (0-2); EOSINOPHILS % (MANUAL) 6 % (0-6); LYMPHOCYTES % (MANUAL) 34 % (13-45); MONOCYTES % (MANUAL) 12 % (3-13); NUCLEATED RED BLOOD CELLS 2 /100 WBC (0); SEGMENTED NEUTROPHILS % (MAN) 47 % (42-78); TOTAL CELLS COUNTED 100
[2018-07-02 02:01] LABS: ANISOCYTOSIS 1+; PLATELET COMMENT INCREASED; POIKILOCYTOSIS 2+; SICKLE RED CELLS SLIGHT; TARGET CELLS 2+
[2018-07-02 02:24] LABS: APPEARANCE,URINE CLEAR; BILIRUBIN,URINE NEGATIVE (NEGATIVE); COLOR,URINE YELLOW; GLUCOSE, URINE NEGATIVE (NEGATIVE); KETONES,URINE NEGATIVE (NEGATIVE); LEUKOCYTE ESTERASE,URINE NEGATIVE (NEGATIVE); NITRITE,URINE NEGATIVE (NEGATIVE); PROTEIN,URINE NEGATIVE (NEGATIVE); URINE SPECIFIC GRAVITY 1.012
[2018-07-02] MEDS ORDERED: NORMAL SALINE 1000 ML 1,000 ML IV ONE (02:30)
[2018-07-02] MEDS ORDERED: KETAMINE HCL INJ 500 MG/10 ML VIAL IV ONE (02:30)
[2018-07-02] MEDS ORDERED: OXYCODONE HCL IR 5 MG TABLET PO ONE (03:54)
== END 2018-07-02 06:15 | disposition home or self-care (01) ==
LOC: ER 22:27
DX: D57.00 Hb-SS disease with crisis, unspecified (principal); M54.5 Low back pain; R10.30 Lower abdominal pain, unspecified; F17.200 Nicotine dependence, unspecified, uncomplicated; J45.909 Unspecified asthma, uncomplicated; Z88.5 Allergy status to narcotic agent
CPT/HCPCS: 36591; 99284; 96361; 96374; 96375; 36415; 85025; 81025; 85045; 80053; 81001; J1200; J3490 ×2; J1170; J7030

== ENCOUNTER 2018-07-03 11:47 | Outpatient (CLI) | payer MEDICAID ==
[2018-07-03 13:01] VITALS: BP 102/50
== END 2018-07-03 13:41 | disposition home or self-care (01) ==
LOC: II 11:47 → 5TH 11:48 → II 13:41
PROVIDERS: ATTEND Internal Medicine
DX: D57.1 Sickle-cell disease without crisis (principal); R52 Pain, unspecified; E86.0 Dehydration
CPT/HCPCS: 96374; 96375; 96360; 96361; J1170

== ENCOUNTER 2018-07-05 22:10 | Emergency (ER) | payer MEDICAID ==
[2018-07-06] MEDS ORDERED: NORMAL SALINE 1000 ML 1,000 ML IV ONE (00:14)
[2018-07-06] MEDS ORDERED: DIPHENHYDRAMINE HCL 50 MG CAPSULE PO ONE (00:24)
[2018-07-06] MEDS ORDERED: HYDROMORPHONE HCL INJ/PF 2 MG/ML AMPULE IV ONE ×2 (00:24→02:39)
[2018-07-06] MEDS ORDERED: ONDANSETRON HCL INJ/PF 4 MG/2 ML SDV IV ONE (00:25)
--- NOTE | 2018-07-06 00:28 | ER Document Report ---
ED General - General Chief Complaint: Back Pain Stated Complaint: BACK PAIN Time Seen by Provider: 07/06/18 00:13 Primary Care Provider: JOIE MOREIRA MD [Primary Care Provider] - Follow up as needed TRAVEL OUTSIDE OF THE [place] IN LAST 30 DAYS: No - HPI Notes: Patient is a 23-year-old female that presents to the emergency department for chief complaint of sickle cell pain. 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 She states she has pain in her bilateral chest underneath her breasts and pain in her low back. She states this is the pain she usually gets with her sickle cell. She saw her social services manager Dr. Salas last and had fluids on Friday. Patient states she was feeling better until this morning. She is currently on Dilaudid 2 mg p. o. every 6. Her last Dilaudid at home was at 4:30 PM. She denies any fever, dyspnea, vomiting, diarrhea and constipation. She does report feeling mildly nauseated. Past Medical History: Sickle cell Past Surgical History: Reviewed in chart Social History: Denies alcohol and tobacco Family History: Reviewed and noncontributory for presenting illness Allergies: Reviewed, see documented allergy list. REVIEW OF SYSTEMS: CONSTITUTIONAL : No fever No chills No diaphoresis No recent illness EENT: No vision changes No congestion No sore throat CARDIOVASCULAR: chest pain No palpitations RESPIRATORY: No shortness of breath No cough No difficulty breathing GASTROINTESTINAL: No abdominal pain No nausea No vomiting No diarrhea GENITOURINARY: No dysuria No hematuria No difficulty urinating MUSCULOSKELETAL: back pain No leg pain No arm pain SKIN: No rashes No lesions LYMPHATIC: No swollen, enlarged glands. NEUROLOGICAL: No lightheadedness No headache No weakness No paresthesias PSYCHIATRIC: No anxiety No depression PHYSICAL EXAMINATION: Vital signs reviewed, nursing noted reviewed. GENERAL: Well-appearing, well-nourished and in no acute distress. HEAD: Atraumatic, normocephalic. EYES: Eyes appear normal, extraocular movements intact, sclera anicteric, conjunctiva are normal. ENT: nares patent, oropharynx clear without exudates. Moist mucous membranes. NECK: Normal range of motion, supple without lymphadenopathy LUNGS: Breath sounds clear to auscultation bilaterally and equal. No wheezes rales or rhonchi. HEART: Regular rate and rhythm without murmurs ABDOMEN: Soft, nontender, normoactive bowel sounds. No rebound, guarding, or rigidity. No masses appreciated. EXTREMITIES: Nontender, good range of motion, no pitting or edema. Back: No midline or paraspinal tenderness in the thoracic or lumbar spine. NEUROLOGICAL: No focal neurological deficits. Moves all extremities spontaneously Motor and sensory grossly intact on exam. PSYCH: Normal mood, normal affect. SKIN: Warm, Dry, normal turgor, no rashes or lesions noted on exposed skin - Related Data Allergies/Adverse Reactions: morphine Allergy (Severe, Verified 07/01/18 22:45) RASH,SWELLING jacob peppers Adverse Reaction (Severe, Uncoded 06/22/18 16:13) throat closes Past Medical History - Social History Smoking Status: Never Smoker Family History: Other - Sickle cell disease and sickle cell trait, asthma - Past Medical History Cardiac Medical History: Reports: Hx DVT - RUE s/p port placement Pulmonary Medical History: Reports: Hx Asthma, Hx Bronchitis - once in past per patient, Hx Pneumonia - 2014 Neurological Medical History: Endocrine Medical History: Denies: Hx Diabetes Mellitus Type 1, Hx Diabetes Mellitus Type 2 Renal/ Medical History: Denies: Hx Peritoneal Dialysis GI Medical History: Musculoskeletal Medical History: Reports Hx Musculoskeletal Trauma Psychiatric Medical History: Reports: Hx Anxiety, Hx Depression Past Surgical History: Reports: Hx Cholecystectomy - 06/28/2015, Hx Vascular Surgery - port put in December,, Other - Port-A-Cath in right upper chest - Immunizations Immunizations up to date: Yes Hx Diphtheria, Pertussis, Tetanus Vaccination: Yes Physical Exam - Vital signs Vitals: Temp Pulse Resp BP Pulse Ox 98.1 F 76 16 116/60 98 07/05/18 22:18 07/05/18 22:18 07/05/18 22:18 07/05/18 22:18 07/05/18 22:18 Course - Re-evaluation Re-evalutation: 07/06/18 00:44 Vitals reviewed. Nursing notes reviewed. Patient is in no acute distress and has requested Dilaudid and Benadryl. She states she does not want ketamine because it made her feel "funny". Patient has extensive history in the emergency room and usually does request Dilaudid and Benadryl. Lab work will be obtained to evaluate for acute sickle cell crisis. Chest x-ray ordered to evaluate for acute chest syndrome. Patient will be given IV fluids. 07/06/18 02:39 Patient reevaluated and was asleep. When I woke her up to tell her her blood work appears normal she states her pain is severe. She does not appear to be in any distress. She is not tachycardic or diaphoretic. Her chest x-ray is normal and she is oxygenating well on room air. I do not suspect acute chest syndrome. She has a stable hemoglobin with elevated reticulocyte count and is not requiring blood transfusion. Patient will be discharged home and told to follow with Dr. Salas. She was given 1 more dose of pain medication prior to discharge however I am concerned for drug-seeking behavior. Patient does not appear to be in any distress and was sleeping comfortably but is now demanding pain medication. Laboratory 07/06/18 07/06/18 01:30 01:30 WBC 13.7 H RBC 2.94 L Hgb 11.3 L Hct 31.4 L MCV 107 H MCH 38.3 H MCHC 35.8 RDW 14.0 Plt Count 469 H Total Counted 100 Seg Neutrophils % Not Reportable Seg Neuts % (Manual) 67 Lymphocytes % Not Reportable Lymphocytes % (Manual) 23 Monocytes % Not Reportable Monocytes % (Manual) 7 Eosinophils % Not Reportable Eosinophils % (Manual) 3 Basophils % Not Reportable Basophils % (Manual) 0 Absolute Neutrophils Not Reportable Abs Neuts (Manual) 9.2 H Absolute Lymphocytes Not Reportable Abs Lymphs (Manual) 3.2 Absolute Monocytes Not Reportable Abs Monocytes (Manual) 1.0 Absolute Eosinophils Not Reportable Absolute Eos (Manual) 0.4 Absolute Basophils Not Reportable Abs Basophils (Manual) 0.0 Nucleated RBCs 1 Platelet Comment INCREASED Polychromasia SLIGHT Anisocytosis SLIGHT Sickle Cells 1+ Target Cells 3+ Schistocytes SLIGHT Retic Count (auto) 5.24 H Absolute Retic 0.154 H Sodium 142.1 Potassium 3.9 Chloride 109 H Carbon Dioxide 25 Anion Gap 8 BUN 7 Creatinine 0.45 L Est GFR ( Amer) > 60 Est GFR (Non-Af Amer) > 60 Glucose 85 Calcium 10.0 Total Bilirubin 4.5 H Direct Bilirubin 0.3 Neonat Total Bilirubin Not Reportable Neonat Direct Bilirubin Not Reportable Neonat Indirect Bili Not Reportable AST 27 ALT 21 Alkaline Phosphatase 64 Total Protein 7.5 Albumin 4.2 Chest X-Ray 07/06/18 00:14 IMPRESSION: No acute cardiopulmonary findings. 07/06/18 02:40 - Vital Signs Vital signs: Temp Pulse Resp BP Pulse Ox 98.1 F 76 16 116/60 98 07/05/18 22:18 07/05/18 22:18 07/05/18 22:18 07/05/18 22:18 07/05/18 22:18 - Laboratory Result Diagrams: 07/06/18 01:30 07/06/18 01:30 Laboratory results interpreted by me: 07/06/18 07/06/18 01:30 01:30 WBC 13.7 H RBC 2.94 L Hgb 11.3 L Hct 31.4 L MCV 107 H MCH 38.3 H Plt Count 469 H Abs Neuts (Manual) 9.2 H Retic Count (auto) 5.24 H Absolute Retic 0.154 H Chloride 109 H Creatinine 0.45 L Total Bilirubin 4.5 H - EKG Interpretation by Me Additional EKG results interpreted by me: 07/06/18 01:23 Interpreted by myself [id number]: Normal sinus rhythm, rate 62, normal axis, no ectopy, no ST elevation Discharge - Discharge Clinical Impression: Sickle cell pain crisis Condition: Stable Disposition: HOME, SELF-CARE Instructions: Sickle Cell Crisis ([facility]) Additional Instructions: Please return to the emergency department if you have any worsening, or concern of your symptoms. Please return to the emergency department if you develop chest pain, difficulty breathing, severe abdominal pain, or ongoing vomiting. Please follow-up with your primary care physician in 2-3 days and any other recommended physicians. If prescribed, take all medications as directed. If you have any questions or concerns do not hesitate to return the emergency department for evaluation. [] Referrals: JOIE MOREIRA MD [Primary Care Provider] - Follow up as needed
[2018-07-06] MEDS ORDERED: DIPHENHYDRAMINE HCL 25 MG CAPSULE ONE (01:06)
[2018-07-06 01:47] LABS: ABSOLUTE RETICS # 0.154 10^6/uL (0.028-0.122); HEMATOCRIT 31.4 % (36.0-47.0); HEMOGLOBIN 11.3 g/dL (12.0-15.5); MEAN CORPUSCULAR HEMOGLOBIN 38.3 pg (27.0-33.4); MEAN CORPUSCULAR HGB CONC 35.8 g/dL (32.0-36.0); MEAN CORPUSCULAR VOLUME 107 fl (80-97); PLATELET COUNT 469 10^3/uL (150-450); RED BLOOD COUNT 2.94 10^6/uL (3.72-5.28); RETICULOCYTE COUNT (AUTO) 5.24 % (0.66-2.85); WHITE BLOOD COUNT 13.7 10^3/uL (4.0-10.5)
[2018-07-06 01:58] LABS: ALANINE AMINOTRANSFERASE 21 U/L (9-52); ALBUMIN 4.2 g/dL (3.5-5.0); ALKALINE PHOSPHATASE 64 U/L (38-126); ANION GAP 8 (5-19); ASPARTATE AMINO TRANSFERASE 27 U/L (14-36); BILIRUBIN,DIRECT 0.3 mg/dL (0.0-0.4); BILIRUBIN,TOTAL 4.5 mg/dL (0.2-1.3); BLOOD UREA NITROGEN 7 mg/dL (7-20); CARBON DIOXIDE 25 mmol/L (22-30); CHLORIDE 109 mmol/L (98-107); GLUCOSE 85 mg/dL (75-110); POTASSIUM 3.9 mmol/L (3.6-5.0); SODIUM 142.1 mmol/L (137-145); TOTAL PROTEIN 7.5 g/dL (6.3-8.2)
[2018-07-06 02:05] LABS: ABSOLUTE LYMPHOCYTES# (MANUAL) 3.2 10^3/uL (0.5-4.7); ABSOLUTE NEUTROPHILS# (MANUAL) 9.2 10^3/uL (1.7-8.2); BASOPHILS % (MANUAL) 0 % (0-2); EOSINOPHILS % (MANUAL) 3 % (0-6); LYMPHOCYTES % (MANUAL) 23 % (13-45); MONOCYTES % (MANUAL) 7 % (3-13); NUCLEATED RED BLOOD CELLS 1 /100 WBC (0); SEGMENTED NEUTROPHILS % (MAN) 67 % (42-78); TOTAL CELLS COUNTED 100
[2018-07-06 02:06] LABS: PLATELET COMMENT INCREASED
[2018-07-06 02:14] LABS: POLYCHROMASIA SLIGHT; SCHISTOCYTES SLIGHT; SICKLE RED CELLS 1+
[2018-07-06 02:17] LABS: ANISOCYTOSIS SLIGHT; TARGET CELLS 3+
--- NOTE | 2018-07-06 02:28 | RADIOLOGY REPORT (SQ) ---
EXAM DESCRIPTION: XR CHEST 1 VIEW COMPLETED DATE/TME: 07/06/2018 00:14 CLINICAL HISTORY: 23 years Female, chest pain COMPARISON: 12/13/17 NUMBER OF VIEWS/TECHNIQUE: 1/AP FINDINGS: Adequate lung volume, clear parenchyma, normal cardiac silhouette, and intact bony thorax. Adequate appearing right jugular central line. IMPRESSION: No acute cardiopulmonary findings.
[2018-07-06 03:30] VITALS: BP 129/72
--- NOTE | 2018-07-06 06:37 | EKG REPORT ---
SEVERITY:- NORMAL ECG - SINUS RHYTHM : Confirmed by: Kris Baker MD 06-Jul-2018 06:37:04
[2018-07-06 12:44] LABS: PATH REVIEW PATHOLOGIST REVIEWED
== END 2018-07-06 03:31 | disposition home or self-care (01) ==
LOC: ER 22:10
DX: D57.00 Hb-SS disease with crisis, unspecified (principal); M54.9 Dorsalgia, unspecified; R07.9 Chest pain, unspecified; M54.5 Low back pain; Z79.899 Other long term (current) drug therapy; J45.909 Unspecified asthma, uncomplicated
CPT/HCPCS: 93005; 36591; 96376; 99284; 96361; 96374; 96375; 36415; 85025; 85045; 80053; 71045; 93010; J3490; J1170; J2405; J7030

== ENCOUNTER 2018-07-07 11:51 | Outpatient (CLI) | payer MEDICAID ==
[2018-07-07 12:34] VITALS: BP 102/52
== END 2018-07-07 13:34 | disposition home or self-care (01) ==
LOC: II 11:51 → 5TH 11:55 → II 13:34
PROVIDERS: ATTEND Internal Medicine
PROC: 3E0437Z Introduction of Electrolytic and Water Balance Substance into Central Vein, Percutaneous Approach (ICD-10-PCS; principal; 2018-07-07)
PROC: 3E033GC Introduction of Other Therapeutic Substance into Peripheral Vein, Percutaneous Approach (ICD-10-PCS; 2018-07-07)
DX: D57.1 Sickle-cell disease without crisis (principal); R52 Pain, unspecified; E86.0 Dehydration
CPT/HCPCS: 96374; 96360; J1170; 96361

== ENCOUNTER 2018-07-08 00:36 | Inpatient (IN) | payer MEDICAID ==
--- NOTE | 2018-07-08 07:04 | ER Document Report ---
ED General Pain - General Chief Complaint: Sickle Cell Crisis Stated Complaint: LOWER BACK PAIN Time Seen by Provider: 07/08/18 06:38 Primary Care Provider: JOIE MOREIRA MD [Primary Care Provider] - Follow up as needed Notes: 23-year-old female patient emergency department chief complaint of sickle cell crisis. Patient has long-standing history of sickle cell. Well-known to the emergency department. Complaining of worsening pain all over. Was seen here yesterday for the same. Has been getting outpatient fluid infusions. Followed by hematology. Currently denies any fever, chills, sweats. Denies any open sores or lesions. Denies any significant shortness of breath, abdominal pain or other issues. TRAVEL OUTSIDE OF THE [place] IN LAST 30 DAYS: No - HPI Onset/Duration: Gradual, Constant Quality of pain: Achy Severity: Moderate Pain Level: 4 Context: Chronic problem Associated symptoms: Muscle aches - Related Data Allergies/Adverse Reactions: morphine Allergy (Severe, Verified 07/01/18 22:45) RASH,SWELLING jacob peppers Adverse Reaction (Severe, Uncoded 06/22/18 16:13) throat closes Past Medical History - General Information source: Patient - Social History Smoking Status: Never Smoker Frequency of alcohol use: None Drug Abuse: None Lives with: Family Family History: Other - Sickle cell disease and sickle cell trait, asthma - Past Medical History Cardiac Medical History: Reports: Hx DVT - RUE s/p port placement Pulmonary Medical History: Reports: Hx Asthma, Hx Bronchitis - once in past per patient, Hx Pneumonia - 2014 Neurological Medical History: Endocrine Medical History: Denies: Hx Diabetes Mellitus Type 1, Hx Diabetes Mellitus Type 2 Renal/ Medical History: Denies: Hx Peritoneal Dialysis GI Medical History: Musculoskeletal Medical History: Reports Hx Musculoskeletal Trauma Psychiatric Medical History: Reports: Hx Anxiety, Hx Depression Past Surgical History: Reports: Hx Cholecystectomy - 06/28/2015, Hx Vascular Surgery - port put in December,, Other - Port-A-Cath in right upper chest - Immunizations Immunizations up to date: Yes Hx Diphtheria, Pertussis, Tetanus Vaccination: Yes Review of Systems - Review of Systems Notes: Constitutional: denies: Chills, Diaphoresis, Fever, Malaise, Weakness EENT: denies: Eye discharge, Blurred vision, Tearing, Double vision, Nose congestion, Nose discharge, Throat swelling, Mouth pain Cardiovascular: denies: Palpitations, Heart racing, Orthopnea, Dyspnea, +Chest pain Respiratory: denies: Cough, Hurts to breathe, Wheezing, Shortness of breath Gastrointestinal: denies: Abdominal pain, Diarrhea, Nausea, Vomiting, Black stools, bright red blood in stool Genitourinary: denies: Burning, Dysuria, Discharge, Frequency, Flank pain, Hematuria Musculoskeletal: denies: Joint pain, Joint swelling, +Muscle pain Hematologic/Lymphatic: denies: Anemia, Easy bleeding, Easy bruising, Blood clots. History of sickle cell Neurological/Psychological: denies: Confusion, Dementia, Depression, Loss of consciousness Skin: No lesions, no masses, no skin breakdown, no abscesses Physical Exam - Vital signs Vitals: Temp Pulse Resp BP Pulse Ox 98.3 F 81 24 H 113/65 97 07/08/18 02:01 07/08/18 02:01 07/08/18 02:01 07/08/18 02:01 07/08/18 02:01 Interpretation: Normal - General General appearance: Appears well, Alert - HEENT Head: Normocephalic, Atraumatic Eyes: Normal Pupils: PERRL - Respiratory Respiratory status: No respiratory distress Chest status: Nontender Breath sounds: Normal Chest palpation: Normal - Cardiovascular Rhythm: Regular Heart sounds: Normal auscultation Murmur: No - Abdominal Inspection: Normal Distension: No distension Bowel sounds: Normal Tenderness: Nontender Organomegaly: No organomegaly - Back Back: Normal, Nontender - Extremities General upper extremity: Normal inspection, Nontender, Normal color, Normal ROM, Normal temperature General lower extremity: Normal inspection, Nontender, Normal color, Normal ROM, Normal temperature, Normal weight bearing. No: Glen's sign - Neurological Neuro grossly intact: Yes Cognition: Normal Orientation: AAOx4 [employer] Coma Scale Eye Opening: Spontaneous Sina Coma Scale Verbal: Oriented Sina Coma Scale Motor: Obeys Commands Sina Coma Scale Total: 15 Speech: Normal Motor strength normal: LUE, RUE, LLE, RLE Sensory: Normal - Psychological Associated symptoms: Normal affect, Normal mood - Skin Skin Temperature: Warm Skin Moisture: Dry Skin Color: Normal Course - Re-evaluation Re-evalutation: 07/08/18 10:38 Labs are very unimpressive with regards to the sickle cell. She is currently being followed by hematology. Her chest x-ray is unremarkable. Reticulocyte count is better than prior. At this time I feel comfortable discharging. All of her labs are trending in the positive direction not in the worse. Patient has received IV fluids and pain medication. Feel comfortable discharging at this time in stable condition. Laboratory 07/08/18 07/08/18 07/08/18 07:22 07:22 08:22 WBC 9.8 RBC 2.72 L Hgb 10.5 L Hct 28.8 L MCV 106 H MCH 38.6 H MCHC 36.4 H RDW 13.8 Plt Count 400 Total Counted 100 Seg Neutrophils % Not Reportable Seg Neuts % (Manual) 59 Band Neutrophils % 1 L Lymphocytes % Not Reportable Lymphocytes % (Manual) 24 Monocytes % Not Reportable Monocytes % (Manual) 10 Eosinophils % Not Reportable Eosinophils % (Manual) 4 Basophils % Not Reportable Basophils % (Manual) 2 Absolute Neutrophils Not Reportable Abs Neuts (Manual) 5.9 Absolute Lymphocytes Not Reportable Abs Lymphs (Manual) 2.4 Absolute Monocytes Not Reportable Abs Monocytes (Manual) 1.0 Absolute Eosinophils Not Reportable Absolute Eos (Manual) 0.4 Absolute Basophils Not Reportable Abs Basophils (Manual) 0.2 Nucleated RBCs 1 Platelet Comment ADEQUATE Polychromasia SLIGHT Macrocytosis 2+ Sickle Cells 1+ Retic Count (auto) 4.82 H Absolute Retic 0.131 H Sodium 142.8 Potassium 4.0 Chloride 110 H Carbon Dioxide 24 Anion Gap 9 BUN 5 L Creatinine 0.41 L Est GFR ( Amer) > 60 Est GFR (Non-Af Amer) > 60 Glucose 82 Calcium 9.2 Total Bilirubin 3.7 H Direct Bilirubin 0.3 Neonat Total Bilirubin Not Reportable Neonat Direct Bilirubin Not Reportable Neonat Indirect Bili Not Reportable AST 25 ALT 26 Alkaline Phosphatase 61 Lactate Dehydrogenase 244 Total Protein 6.6 Albumin 3.8 Urine Color YELLOW Urine Appearance CLEAR Urine pH 7.0 Ur Specific [place] 1.010 Urine Protein NEGATIVE Urine Glucose (UA) NEGATIVE Urine Ketones NEGATIVE Urine Blood NEGATIVE Urine Nitrite NEGATIVE Urine Bilirubin NEGATIVE Urine Urobilinogen NEGATIVE Ur Leukocyte Esterase NEGATIVE Urine WBC (Auto) 0 Urine RBC (Auto) 0 Squamous Epi Cells Auto <1 Urine Mucus (Auto) RARE Urine Ascorbic Acid NEGATIVE Urine HCG, Qual NEGATIVE Chest X-Ray 07/08/18 07:06 IMPRESSION: No significant change. - Vital Signs Vital signs: Temp Pulse Resp BP Pulse Ox 98 F 86 14 115/74 98 07/08/18 07:05 07/08/18 07:05 07/08/18 07:05 07/08/18 07:05 07/08/18 07:05 - Laboratory Result Diagrams: 07/08/18 07:22 07/08/18 07:22 Laboratory results interpreted by me: 07/08/18 07/08/18 07:22 07:22 RBC 2.72 L Hgb 10.5 L Hct 28.8 L MCV 106 H MCH 38.6 H MCHC 36.4 H Band Neutrophils % 1 L Retic Count (auto) 4.82 H Absolute Retic 0.131 H Chloride 110 H BUN 5 L Creatinine 0.41 L Total Bilirubin 3.7 H Discharge - Discharge Clinical Impression: Sickle cell crisis Condition: Good Disposition: HOME, SELF-CARE Instructions: Sickle Cell Crisis ([facility]) Additional Instructions: Follow-up with . Return for any worsening symptoms or concerns. Referrals: JOIE MOREIRA MD [Primary Care Provider] - Follow up as needed
[2018-07-08] MEDS ORDERED: NORMAL SALINE 1000 ML 1,000 ML IV ONE (07:05)
[2018-07-08] MEDS ORDERED: HYDROMORPHONE HCL INJ/PF 2 MG/ML AMPULE IV ONE ×2 (07:06→14:33)
[2018-07-08] MEDS ORDERED: KETOROLAC TROMETHAMINE INJ/PF 30 MG/1 ML SDV IV ONE (07:06)
[2018-07-08] MEDS ORDERED: DIPHENHYDRAMINE HCL 50 MG/ML VIAL IV ONE (07:10)
--- NOTE | 2018-07-08 07:44 | RADIOLOGY REPORT (SQ) ---
EXAM DESCRIPTION: XR CHEST 1 VIEW COMPLETED DATE/TME: 07/08/2018 07:06 CLINICAL HISTORY: 23 years Female, chest pain COMPARISON: 2 days prior. NUMBER OF VIEWS/TECHNIQUE: 1/AP FINDINGS: Clear lungs of adequate volume, and normal cardiac silhouette. No pneumothorax. Stable bony thorax. Adequate appearing right jugular central line. IMPRESSION: No significant change.
[2018-07-08 07:51] LABS: ABSOLUTE RETICS # 0.131 10^6/uL (0.028-0.122); HEMATOCRIT 28.8 % (36.0-47.0); HEMOGLOBIN 10.5 g/dL (12.0-15.5); MEAN CORPUSCULAR HEMOGLOBIN 38.6 pg (27.0-33.4); MEAN CORPUSCULAR HGB CONC 36.4 g/dL (32.0-36.0); MEAN CORPUSCULAR VOLUME 106 fl (80-97); PLATELET COUNT 400 10^3/uL (150-450); RED BLOOD COUNT 2.72 10^6/uL (3.72-5.28); RED CELL DISTRIBUTION WIDTH 13.8 % (11.5-14.0); RETICULOCYTE COUNT (AUTO) 4.82 % (0.66-2.85); WHITE BLOOD COUNT 9.8 10^3/uL (4.0-10.5)
[2018-07-08 08:06] LABS: ALANINE AMINOTRANSFERASE 26 U/L (9-52); ALBUMIN 3.8 g/dL (3.5-5.0); ALKALINE PHOSPHATASE 61 U/L (38-126); ANION GAP 9 (5-19); ASPARTATE AMINO TRANSFERASE 25 U/L (14-36); BILIRUBIN,DIRECT 0.3 mg/dL (0.0-0.4); BILIRUBIN,TOTAL 3.7 mg/dL (0.2-1.3); BLOOD UREA NITROGEN 5 mg/dL (7-20); CALCIUM 9.2 mg/dL (8.4-10.2); CARBON DIOXIDE 24 mmol/L (22-30); CHLORIDE 110 mmol/L (98-107); GLUCOSE 82 mg/dL (75-110); SODIUM 142.8 mmol/L (137-145); TOTAL PROTEIN 6.6 g/dL (6.3-8.2)
[2018-07-08 08:31] LABS: ABSOLUTE LYMPHOCYTES# (MANUAL) 2.4 10^3/uL (0.5-4.7); ABSOLUTE NEUTROPHILS# (MANUAL) 5.9 10^3/uL (1.7-8.2); BAND NEUTROPHILS % (MANUAL) 1 % (3-5); BASOPHILS % (MANUAL) 2 % (0-2); EOSINOPHILS % (MANUAL) 4 % (0-6); LYMPHOCYTES % (MANUAL) 24 % (13-45); MONOCYTES % (MANUAL) 10 % (3-13); NUCLEATED RED BLOOD CELLS 1 /100 WBC (0); SEGMENTED NEUTROPHILS % (MAN) 59 % (42-78); TOTAL CELLS COUNTED 100
[2018-07-08 08:36] LABS: POLYCHROMASIA SLIGHT; SICKLE RED CELLS 1+
[2018-07-08 08:37] LABS: PLATELET COMMENT ADEQUATE
[2018-07-08 08:50] LABS: APPEARANCE,URINE CLEAR; BILIRUBIN,URINE NEGATIVE (NEGATIVE); COLOR,URINE YELLOW; GLUCOSE, URINE NEGATIVE (NEGATIVE); KETONES,URINE NEGATIVE (NEGATIVE); LEUKOCYTE ESTERASE,URINE NEGATIVE (NEGATIVE); NITRITE,URINE NEGATIVE (NEGATIVE); PROTEIN,URINE NEGATIVE (NEGATIVE); UROBILINOGEN,URINE NEGATIVE mg/dL (<2.0)
[2018-07-08] MEDS ORDERED: HYDROMORPHONE HCL INJ/PF 2 MG/ML AMPULE IV PRN (09:46)
[2018-07-08] MEDS ORDERED: FENTANYL CITRATE INJ/PF 100 MCG/2 ML AMPUL IV ONE (10:57)
[2018-07-08] MEDS ORDERED: ONDANSETRON HCL INJ/PF 4 MG/2 ML SDV IV PRN ×2 (11:48→14:16)
--- NOTE | 2018-07-08 12:12 | PDOC H&P ---
History of Present Illness Admission Date/PCP: 07/08/18 11:14 JOIE MOREIRA MD History of Present Illness: CASSANDRA MIDDLETON is a 23 year old female with a history of sickle cell disorder who is well-known to this service with a history of frequent visits to the emergency department and frequent admissions to the hospital for reported sickle cell pain. Recently she has been getting IV infusions as an outpatient of Dilaudid under the management of her track surfacing machine operator Dr. Moreira. She was supposed to go for another one tomorrow but apparently her home doses of Dilaudid were just not enough to keep her pain under control and so she came to the ER. She has no substantial lab abnormalities, abnormal chest x-ray, and a normal physical exam. She says the pain is in her back and her leg. When I first came into the room she was lying on her side watching television and furiously texting a message on her phone to someone. When she looked up and saw that I had come in, she started grimacing and moaning and she even started to cry, whereas she had not been doing that before. I stood outside the room and watched her for a few minutes before I went in and she looks very comfortable. The ER provider had called her track surfacing machine operator who asked that she be admitted, and that he would manage all of her pain medication. Past Medical History Cardiac Medical History: Reports: DVT - RUE s/p port placement Pulmonary Medical History: Reports: Asthma, Bronchitis - once in past per patient, Pneumonia - 2014 Neurological Medical History: Endocrine Medical History: Denies: Diabetes Mellitus Type 1, Diabetes Mellitus Type 2 Renal/ Medical History: GI Medical History: Musculoskeltal Medical History: Psychiatric Medical History: Reports: Depression Hematology: Reports: Anemia, Sickle Cell Disease Denies: Bleeding Tendencies Past Surgical History Past Surgical History: Reports: Cholecystectomy - 06/28/2015, Vascular Surgery - port put in December,, Other - Port-A-Cath in right upper chest Social History Lives with: Family Smoking Status: Never Smoker Frequency of Alcohol Use: None Hx Recreational Drug Use: No Drugs: None Hx Prescription Drug Abuse: No Family History Family History: Other - Sickle cell disease and sickle cell trait, asthma Parental Family History Reviewed: Yes Children Family History Reviewed: NA Sibling(s) Family History Reviewed.: Yes Medication/Allergy Home Medications: Aripiprazole [Abilify 10 mg Tablet] 10 mg PO QHS 06/14/18 Escitalopram Oxalate [Lexapro] 10 mg PO QHS 06/14/18 Folic Acid [Folvite 1 mg Tablet] 1 mg PO DAILY 06/14/18 Hydroxyurea [Hydrea 500 mg Capsule] 500 mg PO BID 06/14/18 Rivaroxaban [Xarelto] 20 mg PO DAILY 06/14/18 Hydromorphone HCl [Dilaudid 2 mg Tablet] 2 mg PO Q6H #6 tablet 06/22/18 Allergies/Adverse Reactions: morphine Allergy (Severe, Verified 07/01/18 22:45) RASH,SWELLING jacob peppers Adverse Reaction (Severe, Uncoded 06/22/18 16:13) throat closes Review of Systems All systems: reviewed and no additional remarkable complaints except as stated - All systems were reviewed and were negative except as noted in the HPI Physical Exam Vital Signs: Temp Pulse Resp BP Pulse Ox 98 F 86 14 115/74 98 07/08/18 07:05 07/08/18 07:05 07/08/18 07:05 07/08/18 07:05 07/08/18 07:05 Intake & Output 07/07/18 07/08/18 07/09/18 06:59 06:59 06:59 Weight 65.1 kg General appearance: PRESENT: no acute distress - She looked very comfortable when I stood outside the room and she was not aware of my presence, but after I came in the room she started acting very uncomfortable, cooperative, disheveled Head exam: PRESENT: atraumatic, normocephalic Eye exam: PRESENT: EOMI, PERRLA. ABSENT: conjunctival injection, nystagmus, scleral icterus Ear exam: PRESENT: normal external ear exam Mouth exam: PRESENT: moist, neck supple Throat exam: ABSENT: post pharyngeal erythema Neck exam: PRESENT: full ROM. ABSENT: carotid bruit, JVD, lymphadenopathy, meningismus, tenderness, thyromegaly Respiratory exam: PRESENT: clear to auscultation samaria, symmetrical, unlabored. ABSENT: accessory muscle use, crackles, prolonged expiratory phas, rhonchi, t achypnea, wheezes Cardiovascular exam: PRESENT: RRR, +S1, +S2 Pulses: PRESENT: normal carotid pulses Vascular exam: PRESENT: normal capillary refill GI/Abdominal exam: PRESENT: normal bowel sounds, soft. ABSENT: distended, guarding, rebound, tenderness Extremities exam: ABSENT: clubbing, pedal edema Musculoskeletal exam: PRESENT: normal inspection. ABSENT: deformity Neurological exam: PRESENT: alert, awake, oriented to person, oriented to place, oriented to time, oriented to situation, CN II-XII grossly intact. ABSENT: motor sensory deficit Psychiatric exam: PRESENT: agitated, anxious Skin exam: PRESENT: dry, warm Results Laboratory Results: 07/08/18 07:22 07/08/18 07:22 07/08/18 07/08/18 07/08/18 07:22 07:22 08:22 WBC 9.8 RBC 2.72 L Hgb 10.5 L Hct 28.8 L MCV 106 H MCH 38.6 H MCHC 36.4 H RDW 13.8 Plt Count 400 Seg Neutrophils % Not Reportable Lymphocytes % Not Reportable Monocytes % Not Reportable Eosinophils % Not Reportable Basophils % Not Reportable Absolute Neutrophils Not Reportable Absolute Lymphocytes Not Reportable Absolute Monocytes Not Reportable Absolute Eosinophils Not Reportable Absolute Basophils Not Reportable Retic Count (auto) 4.82 H Absolute Retic 0.131 H Sodium 142.8 Potassium 4.0 Chloride 110 H Carbon Dioxide 24 Anion Gap 9 BUN 5 L Creatinine 0.41 L Est GFR ( Amer) > 60 Est GFR (Non-Af Amer) > 60 Glucose 82 Calcium 9.2 Total Bilirubin 3.7 H AST 25 ALT 26 Alkaline Phosphatase 61 Total Protein 6.6 Albumin 3.8 Urine Color YELLOW Urine Appearance CLEAR Urine pH 7.0 Ur Specific [place] 1.010 Urine Protein NEGATIVE Urine Glucose (UA) NEGATIVE Urine Ketones NEGATIVE Urine Blood NEGATIVE Urine Nitrite NEGATIVE Ur Leukocyte Esterase NEGATIVE Urine WBC (Auto) 0 Urine RBC (Auto) 0 Impressions: Chest X-Ray 07/08/18 07:06 IMPRESSION: No significant change. Assessment and Plan - Diagnosis (1) Back pain Qualifiers: Back pain location: back pain in unspecified location Chronicity: chronic Back pain laterality: unspecified Qualified Code(s): M54.9 - Dorsalgia, unspecified; G89.29 - Other chronic pain Is this a current diagnosis for this admission?: Yes Plan: I am skeptical that she is actually in a sickle cell crisis. I started her on some IV fluids and resumed her home medications with the exception of her pain medication. As per his request, we have consulted Dr. Moreira for management of all things concerning pain. (2) DVT (deep venous thrombosis) Is this a current diagnosis for this admission?: No Plan: She has a history of DVT and will continue Xarelto (3) Elevated bilirubin Is this a current diagnosis for this admission?: Yes Plan: This is a chronic elevation, and it is actually lower today than it usually is - Time Time Spent with patient: 35 or more minutes - Inpatient Certification Based on my medical assessment, after consideration of the patient's comorbidities, presenting symptoms, or acuity I expect that the services needed warrant INPATIENT care.: Yes I certify that my determination is in accordance with my understanding of Medicare's requirements for reasonable and necessary INPATIENT services [42 CFR 412.3e].: Yes Medical Necessity: Need For IV Fluids, Need for Pain Control
[2018-07-08] MEDS ORDERED: PROMETHAZINE HCL INJ 25 MG/1 ML VIAL IV PRN (14:15)
[2018-07-08] MEDS: DIPHENHYDRAMINE HCL 50 MG/ML VIAL IV PRN ×2 (14:38→18:32)
[2018-07-08] MEDS: POLYETHYLENE GLYCOL 3350 POWDER 17 GM/1 PACKET PO SCH (16:23)
[2018-07-08] MEDS: HYDROMORPHONE HCL INJ/PF 2 MG/ML AMPULE IV PRN ×2 (18:40→21:17)
[2018-07-08] MEDS: HYDROXYUREA 500 MG CAPSULE PO SCH (18:42)
[2018-07-08] MEDS: ARIPIPRAZOLE 5 MG TABLET PO SCH (21:15)
[2018-07-08] MEDS: ESCITALOPRAM OXALATE 10 MG TABLET PO SCH (21:16)
[2018-07-08] MEDS: NORMAL SALINE 1000 ML 1,000 ML IV PRN (21:25)
[2018-07-08] MEDS ORDERED: (PENDING PHARMACY ID) (Aripiprazole [Abilify 10 Mg Tablet] 10 MG) PO SCH (22:00)
[2018-07-09] MEDS: DIPHENHYDRAMINE HCL 50 MG/ML VIAL IV PRN ×3 (00:44→14:16)
[2018-07-09] MEDS: HYDROMORPHONE HCL INJ/PF 2 MG/ML AMPULE IV PRN ×7 (00:45→21:11)
[2018-07-09] MEDS: NORMAL SALINE 1000 ML 1,000 ML IV PRN ×3 (05:22→21:13)
[2018-07-09 06:23] LABS: HEMATOCRIT 24.5 % (36.0-47.0); HEMOGLOBIN 9.5 g/dL (12.0-15.5); MEAN CORPUSCULAR HEMOGLOBIN 40.5 pg (27.0-33.4); MEAN CORPUSCULAR VOLUME 105 fl (80-97); PLATELET COUNT 346 10^3/uL (150-450); RED BLOOD COUNT 2.34 10^6/uL (3.72-5.28); RED CELL DISTRIBUTION WIDTH 13.8 % (11.5-14.0); WHITE BLOOD COUNT 10.2 10^3/uL (4.0-10.5)
[2018-07-09 07:22] LABS: MEAN CORPUSCULAR HGB CONC 38.7 g/dL (32.0-36.0)
--- NOTE | 2018-07-09 08:42 | PDOC CONSULTATION ---
Consultation Consult Date: 07/09/18 Attending physician:: DAVID BAR Consult reason:: Asked by hospitalist team to see patient well-known to oncology service with sickle cell disease here with crisis History of Present Illness Admission Date/PCP: 07/08/18 11:14 JOIE MOREIRA MD Patient complains of: Pain crisis History of Present Illness: CASSANDRA MIDDLETON is a 23 year old female with known history of sickle cell disease, over the last week and a half we have been treating her outpatient with IV fluids as well as IV Dilaudid at [facility]. Unfortunately the pain has increased in extent she came to the ED twice with severe pain and we decided on this admission to the ED that we will admit her to [facility]. She is in pain this morning, but seems to be controlled on current dose of IV Dilaudid every 2 hours. Past Medical History Cardiac Medical History: Reports: DVT - RUE s/p port placement Pulmonary Medical History: Reports: Asthma, Bronchitis - once in past per patient, Pneumonia - 2014 Neurological Medical History: Endocrine Medical History: Denies: Diabetes Mellitus Type 1, Diabetes Mellitus Type 2 Renal/ Medical History: GI Medical History: Musculoskeltal Medical History: Psychiatric Medical History: Reports: Depression Hematology: Reports: Anemia, Sickle Cell Disease Denies: Bleeding Tendencies Past Surgical History Past Surgical History: Reports: Cholecystectomy - 06/28/2015, Vascular Surgery - port put in December,, Other - Port-A-Cath in right upper chest Social History Information Source: Patient Lives with: Family Smoking Status: Never Smoker Frequency of Alcohol Use: None Hx Recreational Drug Use: No Drugs: None Hx Prescription Drug Abuse: No - Advance Directive Resuscitation Status: Full Code Family History Family History: Other - Sickle cell disease and sickle cell trait, asthma Parental Family History Reviewed: Yes Children Family History Reviewed: Yes Sibling(s) Family History Reviewed.: Yes Medication/Allergy Home Medications: Aripiprazole [Abilify 10 mg Tablet] 10 mg PO QHS 06/14/18 Escitalopram Oxalate [Lexapro] 10 mg PO QHS 06/14/18 Folic Acid [Folvite 1 mg Tablet] 1 mg PO DAILY 06/14/18 Hydroxyurea [Hydrea 500 mg Capsule] 500 mg PO BID 06/14/18 Rivaroxaban [Xarelto] 20 mg PO DAILY 06/14/18 Hydroxyzine Pamoate [Vistaril 25 mg Capsule] 25 mg PO PRN PRN 07/08/18 Allergies/Adverse Reactions: morphine Allergy (Severe, Verified 07/01/18 22:45) RASH,SWELLING jacob peppers Adverse Reaction (Severe, Uncoded 06/22/18 16:13) throat closes Review of Systems Constitutional: ABSENT: chills, fever(s), headache(s), weight gain, weight loss Eyes: ABSENT: visual disturbances Ears: ABSENT: hearing changes Cardiovascular: ABSENT: chest pain, dyspnea on exertion, edema, orthropnea, palpitations Respiratory: ABSENT: cough, hemoptysis Gastrointestinal: ABSENT: abdominal pain, constipation, diarrhea, hematemesis, hematochezia, nausea, vomiting Genitourinary: ABSENT: dysuria, hematuria Musculoskeletal: ABSENT: joint swelling Integumentary: ABSENT: rash, wounds Neurological: ABSENT: abnormal gait, abnormal speech, confusion, dizziness, focal weakness, syncope Psychiatric: ABSENT: anxiety, depression, homidical ideation, suicidal ideation Endocrine: ABSENT: cold intolerance, heat intolerance, polydipsia, polyuria Hematologic/Lymphatic: ABSENT: easy bleeding, easy bruising Physical Exam Vital Signs: Temp Pulse Resp BP Pulse Ox 98.2 F 88 16 122/80 100 07/09/18 00:00 07/09/18 00:00 07/09/18 00:00 07/09/18 00:00 07/09/18 00:00 Intake & Output 07/08/18 07/09/18 07/10/18 06:59 06:59 06:59 Intake Total 2540 Balance 2540 Weight 65.1 kg 65.1 kg General appearance: PRESENT: no acute distress, well-developed, well-nourished Head exam: PRESENT: atraumatic, normocephalic Eye exam: PRESENT: conjunctiva pink, EOMI, PERRLA. ABSENT: scleral icterus Ear exam: PRESENT: normal external ear exam Mouth exam: PRESENT: moist, tongue midline Neck exam: ABSENT: carotid bruit, JVD, lymphadenopathy, thyromegaly Respiratory exam: PRESENT: clear to auscultation samaria. ABSENT: rales, rhonchi, wheezes Cardiovascular exam: PRESENT: RRR. ABSENT: diastolic murmur, rubs, systolic murmur Pulses: PRESENT: normal dorsalis pedis pul Vascular exam: PRESENT: normal capillary refill GI/Abdominal exam: PRESENT: normal bowel sounds, soft. ABSENT: distended, guarding, mass, organolmegaly, rebound, tenderness Rectal exam: PRESENT: deferred Extremities exam: PRESENT: full ROM. ABSENT: calf tenderness, clubbing, pedal edema Neurological exam: PRESENT: alert, awake, oriented to person, oriented to place, oriented to time, oriented to situation, CN II-XII grossly intact. ABSENT: motor sensory deficit Psychiatric exam: PRESENT: appropriate affect, normal mood. ABSENT: homicidal i deation, suicidal ideation Skin exam: PRESENT: dry, intact, warm. ABSENT: cyanosis, rash Results Laboratory Results: 07/09/18 05:30 07/08/18 07:22 07/08/18 07/09/18 08:22 05:30 WBC 10.2 RBC 2.34 L Hgb 9.5 L Hct 24.5 L MCV 105 H MCH 40.5 H MCHC 38.7 H RDW 13.8 Plt Count 346 Urine Color YELLOW Urine Appearance CLEAR Urine pH 7.0 Ur Specific [place] 1.010 Urine Protein NEGATIVE Urine Glucose (UA) NEGATIVE Urine Ketones NEGATIVE Urine Blood NEGATIVE Urine Nitrite NEGATIVE Ur Leukocyte Esterase NEGATIVE Urine WBC (Auto) 0 Urine RBC (Auto) 0 Impressions: Chest X-Ray 07/08/18 07:06 IMPRESSION: No significant change. Assessment & Plan - Diagnosis (1) Acute sickle cell crisis Is this a current diagnosis for this admission?: Yes Plan: Sickle cell disease with pain crisis, continue with current IV Dilaudid every 2 hours. Continue with IV hydration and other supportive measures. We will add K pad for comfort. 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 - Time Time Spent: 50 to 70 Minutes - Inpatient Certification Based on my medical assessment, after consideration of the patient's comorbidities, presenting symptoms, or acuity I expect that the services needed warrant INPATIENT care.: Yes I certify that my determination is in accordance with my understanding of Medicare's requirements for reasonable and necessary INPATIENT services [42 CFR 412.3e].: Yes Medical Necessity: Need For IV Fluids, Need for Pain Control
[2018-07-09] MEDS: FOLIC ACID 1 MG TABLET PO SCH (09:21)
[2018-07-09] MEDS: POLYETHYLENE GLYCOL 3350 POWDER 17 GM/1 PACKET PO SCH (09:21)
[2018-07-09] MEDS: RIVAROXABAN 10 MG TABLET PO SCH (09:21)
[2018-07-09] MEDS: HYDROXYUREA 500 MG CAPSULE PO SCH ×2 (09:21→17:25)
--- NOTE | 2018-07-09 19:53 | PDOC PROGRESS REPORT ---
Subjective Progress Note for:: 07/09/18 Subjective:: No adverse events overnight. No new complaints. Vital signs been stable. 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 She was asking for a K pad earlier. While I was talking to her her eyes were closed several times during the conversation. She told me that she did not think she was having a sickle cell crisis, just sickle cell pain. Reason For Visit: SICKLE CELL PAIN Physical Exam Vital Signs: Temp Pulse Resp BP Pulse Ox 98.5 F 76 16 97/55 L 95 07/09/18 15:18 07/09/18 15:18 07/09/18 15:18 07/09/18 15:18 07/09/18 15:18 Intake & Output 07/08/18 07/09/18 07/10/18 06:59 06:59 06:59 Intake Total 2540 2135 Balance 2540 2135 Weight 65.1 kg 65.1 kg General appearance: PRESENT: no acute distress, cooperative, disheveled Respiratory exam: PRESENT: clear to auscultation samaria, symmetrical, unlabored. ABSENT: accessory muscle use, crackles, prolonged expiratory phas, rhonchi, tachypnea, wheezes Cardiovascular exam: PRESENT: RRR, +S1, +S2 Pulses: PRESENT: normal carotid pulses Vascular exam: PRESENT: normal capillary refill GI/Abdominal exam: PRESENT: normal bowel sounds, soft. ABSENT: distended, guar ding, rebound, tenderness Extremities exam: ABSENT: clubbing, pedal edema Musculoskeletal exam: PRESENT: normal inspection. ABSENT: deformity Neurological exam: PRESENT: alert, awake, oriented to person, oriented to place, oriented to time, oriented to situation Results Laboratory Results: 07/09/18 05:30 07/08/18 07:22 07/09/18 05:30 WBC 10.2 RBC 2.34 L Hgb 9.5 L Hct 24.5 L MCV 105 H MCH 40.5 H MCHC 38.7 H RDW 13.8 Plt Count 346 Impressions: Chest X-Ray 07/08/18 07:06 IMPRESSION: No significant change. Assessment and Plan - Diagnosis (1) Back pain Qualifiers: Back pain location: back pain in unspecified location Chronicity: chronic Back pain laterality: unspecified Qualified Code(s): M54.9 - Dorsalgia, unspecified; G89.29 - Other chronic pain Is this a current diagnosis for this admission?: Yes Plan: I started her on some IV fluids and resumed her home medications with the exception of her pain medication. As per his request, we have consulted Dr. Baum for management of all things concerning pain. (2) DVT (deep venous thrombosis) Is this a current diagnosis for this admission?: No Plan: She has a history of DVT and will continue Xarelto (3) Elevated bilirubin Is this a current diagnosis for this admission?: Yes Plan: This is a chronic elevation, and it is actually lower today than it usually is - Time Time Spent with patient: 15-24 minutes
[2018-07-09] MEDS: ESCITALOPRAM OXALATE 10 MG TABLET PO SCH (21:12)
[2018-07-09] MEDS: ARIPIPRAZOLE 5 MG TABLET PO SCH (21:12)
[2018-07-10] MEDS: HYDROMORPHONE HCL INJ/PF 2 MG/ML AMPULE IV PRN ×6 (05:12→22:42)
[2018-07-10] MEDS: NORMAL SALINE 1000 ML 1,000 ML IV PRN ×3 (05:14→17:18)
[2018-07-10 05:39] LABS: HEMATOCRIT 24.5 % (36.0-47.0); MEAN CORPUSCULAR VOLUME 104 fl (80-97); PLATELET COUNT 309 10^3/uL (150-450); RED BLOOD COUNT 2.35 10^6/uL (3.72-5.28); WHITE BLOOD COUNT 9.9 10^3/uL (4.0-10.5)
[2018-07-10 06:13] LABS: HEMOGLOBIN 8.2 g/dL (12.0-15.5)
[2018-07-10 06:14] LABS: MEAN CORPUSCULAR HEMOGLOBIN 34.9 pg (27.0-33.4); MEAN CORPUSCULAR HGB CONC 33.5 g/dL (32.0-36.0)
--- NOTE | 2018-07-10 09:19 | PDOC PROGRESS REPORT ---
Subjective Progress Note for:: 07/10/18 Subjective:: Doing better, now requiring IV Dilaudid about every 4 hours. Reason For Visit: SICKLE CELL PAIN Physical Exam Vital Signs: Temp Pulse Resp BP Pulse Ox 98.6 F 78 16 111/47 L 94 07/09/18 23:20 07/09/18 23:20 07/09/18 23:20 07/09/18 23:20 07/09/18 23:20 Intake & Output 07/09/18 07/10/18 07/11/18 06:59 06:59 06:59 Intake Total 2540 4735 Balance 2540 4735 Weight 65.1 kg 65.1 kg General appearance: PRESENT: no acute distress, well-developed, well-nourished Head exam: PRESENT: atraumatic, normocephalic Eye exam: PRESENT: conjunctiva pink, EOMI, PERRLA. ABSENT: scleral icterus Ear exam: PRESENT: normal external ear exam Mouth exam: PRESENT: moist, tongue midline Neck exam: ABSENT: carotid bruit, JVD, lymphadenopathy, thyromegaly Respiratory exam: PRESENT: clear to auscultation samaria. ABSENT: rales, rhonchi, wheezes Cardiovascular exam: PRESENT: RRR. ABSENT: diastolic murmur, rubs, systolic murmur Pulses: PRESENT: normal dorsalis pedis pul Vascular exam: PRESENT: normal capillary refill GI/Abdominal exam: PRESENT: normal bowel sounds, soft. ABSENT: distended, guarding, mass, organolmegaly, rebound, tenderness Rectal exam: PRESENT: deferred Extremities exam: PRESENT: full ROM. ABSENT: calf tenderness, clubbing, pedal edema Neurological exam: PRESENT: alert, awake, oriented to person, oriented to place, oriented to time, oriented to situation, CN II-XII grossly intact. ABSENT: motor sensory deficit Psychiatric exam: PRESENT: appropriate affect, normal mood. ABSENT: homicidal ideation, suicidal ideation Skin exam: PRESENT: dry, intact, warm. ABSENT: cyanosis, rash Results Laboratory Results: 07/10/18 05:15 07/08/18 07:22 07/10/18 05:15 WBC 9.9 RBC 2.35 L Hgb 8.2 L Hct 24.5 L MCV 104 H MCH 34.9 H MCHC 33.5 RDW 14.0 Plt Count 309 Impressions: Chest X-Ray 07/08/18 07:06 IMPRESSION: No significant change. Assessment & Plan - Diagnosis (1) Acute sickle cell crisis Is this a current diagnosis for this admission?: Yes Plan: Proving, continue supportive measures for another 24 hours. If she is stable she may be able to discharge home tomorrow. However, she has not been able to afford to get her oral pain medication as an outpatient. She is going to get some family help to see if she can afford it. But we will need to check on that. 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 - Time Time Spent with patient: 25-34 minutes - Inpatient Certification Based on my medical assessment, after consideration of the patient's comorbidities, presenting symptoms, or acuity I expect that the services needed warrant INPATIENT care.: Yes I certify that my determination is in accordance with my understanding of Medicare's requirements for reasonable and necessary INPATIENT services [42 CFR 412.3e].: Yes Medical Necessity: Need For IV Fluids, Need for Pain Control
[2018-07-10] MEDS: FOLIC ACID 1 MG TABLET PO SCH (09:31)
[2018-07-10] MEDS: HYDROXYUREA 500 MG CAPSULE PO SCH ×2 (09:31→17:14)
[2018-07-10] MEDS: RIVAROXABAN 10 MG TABLET PO SCH (09:31)
[2018-07-10] MEDS: POLYETHYLENE GLYCOL 3350 POWDER 17 GM/1 PACKET PO SCH (09:32)
[2018-07-10] MEDS: DIPHENHYDRAMINE HCL 50 MG/ML VIAL IV PRN ×2 (09:36→20:08)
--- NOTE | 2018-07-10 17:26 | PDOC PROGRESS REPORT ---
Subjective Progress Note for:: 07/10/18 Subjective:: No adverse events overnight. No new complaints. Vital signs are stable. She says that her pain is well controlled on the regimen she is currently on. Eating and drinking without difficulty. She is getting some sleep. Reason For Visit: SICKLE CELL PAIN Physical Exam Vital Signs: Temp Pulse Resp BP Pulse Ox 98.6 F 88 16 97/51 L 93 07/10/18 14:52 07/10/18 14:52 07/10/18 14:52 07/10/18 14:52 07/10/18 14:52 Intake & Output 07/09/18 07/10/18 07/11/18 06:59 06:59 06:59 Intake Total 2540 4735 2809 Balance 2540 4735 2809 Weight 65.1 kg 65.1 kg General appearance: PRESENT: no acute distress, cooperative, disheveled Respiratory exam: PRESENT: clear to auscultation samaria, symmetrical, unlabored. ABSENT: accessory muscle use, crackles, prolonged expiratory phas, rhonchi, tachypnea, wheezes Cardiovascular exam: PRESENT: RRR, +S1, +S2 Pulses: PRESENT: normal carotid pulses Vascular exam: PRESENT: normal capillary refill GI/Abdominal exam: PRESENT: normal bowel sounds, soft. ABSENT: distended, guarding, rebound, tenderness Extremities exam: ABSENT: clubbing, pedal edema Musculoskeletal exam: PRESENT: normal inspection. ABSENT: deformity Neurological exam: PRESENT: alert, awake, oriented to person, oriented to place, oriented to time, oriented to situation Results Laboratory Results: 07/10/18 05:15 07/08/18 07:22 07/10/18 05:15 WBC 9.9 RBC 2.35 L Hgb 8.2 L Hct 24.5 L MCV 104 H MCH 34.9 H MCHC 33.5 RDW 14.0 Plt Count 309 Impressions: Chest X-Ray 07/08/18 07:06 IMPRESSION: No significant change. Assessment and Plan - Diagnosis (1) Back pain Qualifiers: Back pain location: back pain in unspecified location Chronicity: chronic Back pain laterality: unspecified Qualified Code(s): M54.9 - Dorsalgia, unspecified; G89.29 - Other chronic pain Is this a current diagnosis for this admission?: Yes Plan: I started her on some IV fluids and resumed her home medications with the exception of her pain medication. As per his request, we have consulted Dr. Baum for management of all things concerning pain. (2) DVT (deep venous thrombosis) Is this a current diagnosis for this admission?: No Plan: She has a history of DVT and will continue Xarelto (3) Elevated bilirubin Is this a current diagnosis for this admission?: Yes Plan: This is a chronic elevation, and it is actually lower today than it usually is - Time Time Spent with patient: 15-24 minutes
[2018-07-10] MEDS: ESCITALOPRAM OXALATE 10 MG TABLET PO SCH (21:53)
[2018-07-10] MEDS: ARIPIPRAZOLE 5 MG TABLET PO SCH (21:53)
[2018-07-11] MEDS: NORMAL SALINE 1000 ML 1,000 ML IV PRN (00:25)
[2018-07-11] MEDS: HYDROMORPHONE HCL INJ/PF 2 MG/ML AMPULE IV PRN ×2 (05:14→09:26)
[2018-07-11] MEDS: DIPHENHYDRAMINE HCL 50 MG/ML VIAL IV PRN (05:15)
[2018-07-11] MEDS: HYDROXYUREA 500 MG CAPSULE PO SCH (09:19)
[2018-07-11] MEDS: RIVAROXABAN 10 MG TABLET PO SCH (09:19)
[2018-07-11] MEDS: FOLIC ACID 1 MG TABLET PO SCH (09:19)
[2018-07-11] MEDS: POLYETHYLENE GLYCOL 3350 POWDER 17 GM/1 PACKET PO SCH (09:20)
[2018-07-11 11:56] VITALS: BP 100/53
--- NOTE | 2018-07-11 13:21 | PDOC PROGRESS REPORT ---
Subjective Progress Note for:: 07/11/18 Subjective:: Patient feeling much better ready to go home, tells me she will get help to get her prescription today Reason For Visit: SICKLE CELL PAIN Physical Exam Vital Signs: Temp Pulse Resp BP Pulse Ox 98.3 F 73 18 100/53 L 96 07/11/18 12:43 07/11/18 12:43 07/11/18 12:43 07/11/18 12:43 07/11/18 12:43 Intake & Output 07/10/18 07/11/18 07/12/18 06:59 06:59 06:59 Intake Total 4735 6114 Balance 4735 6114 Weight 65.1 kg 64.1 kg General appearance: PRESENT: no acute distress, well-developed, well-nourished Head exam: PRESENT: atraumatic, normocephalic Eye exam: PRESENT: conjunctiva pink, EOMI, PERRLA. ABSENT: scleral icterus Ear exam: PRESENT: normal external ear exam Mouth exam: PRESENT: moist, tongue midline Neck exam: ABSENT: carotid bruit, JVD, lymphadenopathy, thyromegaly Respiratory exam: PRESENT: clear to auscultation samaria. ABSENT: rales, rhonchi, wheezes Cardiovascular exam: PRESENT: RRR. ABSENT: diastolic murmur, rubs, systolic murmur Pulses: PRESENT: normal dorsalis pedis pul Vascular exam: PRESENT: normal capillary refill GI/Abdominal exam: PRESENT: normal bowel sounds, soft. ABSENT: distended, guarding, mass, organolmegaly, rebound, tenderness Rectal exam: PRESENT: deferred Extremities exam: PRESENT: full ROM. ABSENT: calf tenderness, clubbing, pedal edema Neurological exam: PRESENT: alert, awake, oriented to person, oriented to place, oriented to time, oriented to situation, CN II-XII grossly intact. ABSENT: motor sensory deficit Psychiatric exam: PRESENT: appropriate affect, normal mood. ABSENT: homicidal ideation, suicidal ideation Skin exam: PRESENT: dry, intact, warm. ABSENT: cyanosis, rash Results Laboratory Results: 07/10/18 05:15 07/08/18 07:22 Impressions: Chest X-Ray 07/08/18 07:06 IMPRESSION: No significant change. Assessment & Plan - Diagnosis (1) Acute sickle cell crisis Is this a current diagnosis for this admission?: Yes Plan: Resolved enough for discharge home, patient does have prescription for oxycodone as an outpatient. 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 We will see her back in a couple weeks to recheck her blood. - Time Time Spent with patient: 35 or more minutes
--- NOTE | 2018-07-11 16:05 | PDOC DISCHARGE SUMMARY ---
General - Admit/Disc Date/PCP Admission Date/Primary Care Provider: 07/08/18 11:14 JIOE MOREIRA MD Discharge Date: 07/11/18 - Discharge Diagnosis (1) Back pain Is this a current diagnosis for this admission?: Yes Summary: Pain was managed by her trimming cutter. She is back on roughly the equivalent to what she is on at home. (2) DVT (deep venous thrombosis) Is this a current diagnosis for this admission?: No Summary: She continued Xarelto (3) Elevated bilirubin Is this a current diagnosis for this admission?: Yes Summary: This was stable in its usual range - Additional Information Resuscitation Status: Full Code Discharge Diet: Regular Discharge Activity: Activity As Tolerated Home Medications: Aripiprazole [Abilify 10 mg Tablet] 10 mg PO QHS 06/14/18 Escitalopram Oxalate [Lexapro] 10 mg PO QHS 06/14/18 Folic Acid [Folvite 1 mg Tablet] 1 mg PO DAILY 06/14/18 Hydroxyurea [Hydrea 500 mg Capsule] 500 mg PO BID 06/14/18 Rivaroxaban [Xarelto] 20 mg PO DAILY 06/14/18 Hydroxyzine Pamoate [Vistaril 25 mg Capsule] 25 mg PO PRN PRN 07/08/18 History of Present Illness History of Present Illness: CASSANDRA MIDDLETON is a 23 year old female with a history of sickle cell disorder who is well-known to this service with a history of frequent visits to the emergency department and frequent admissions to the hospital for reported sickle cell pain. Recently she has been getting IV infusions as an outpatient of Dilaudid under the management of her trimming cutter Dr. Moreira. She was supposed to go for another one tomorrow but apparently her home doses of Dilaudid were just not enough to keep her pain under control and so she came to the ER. She has no substantial lab abnormalities, abnormal chest x-ray, and a normal physical exam. She says the pain is in her back and her leg. When I first came into the room she was lying on her side watching television and furiously texting a message on her phone to someone. When she looked up and saw that I had come in, she star shikha grimacing and moaning and she even started to cry, whereas she had not been doing that before. I stood outside the room and watched her for a few minutes before I went in and she looks very comfortable. The ER provider had called her trimming cutter who asked that she be admitted, and that he would manage all of her pain medication. Hospital Course Hospital Course: She received IV fluids and her pain was managed by her trimming cutter. Her blood counts were monitored. She resolved fairly quickly. She will go back on the pain medication she was on at home. She has follow-up scheduled with her trimming cutter. Her labs and examination were reassuring she was discharged in good condition. Physical Exam Vital Signs: Temp Pulse Resp BP Pulse Ox 98.3 F 73 18 100/53 L 96 07/11/18 12:43 07/11/18 12:43 07/11/18 12:43 07/11/18 12:43 07/11/18 12:43 Intake & Output 07/10/18 07/11/18 07/12/18 06:59 06:59 06:59 Intake Total 4735 6114 1000 Balance 4735 6114 1000 Weight 65.1 kg 64.1 kg General appearance: PRESENT: no acute distress, cooperative, disheveled Respiratory exam: PRESENT: clear to auscultation samaria, symmetrical, unlabored. ABSENT: accessory muscle use, crackles, prolonged expiratory phas, rhonchi, tachypnea, wheezes Cardiovascular exam: PRESENT: RRR, +S1, +S2 Pulses: PRESENT: normal carotid pulses Vascular exam: PRESENT: normal capillary refill GI/Abdominal exam: PRESENT: normal bowel sounds, soft. ABSENT: distended, guarding, rebound, tenderness Extremities exam: ABSENT: clubbing, pedal edema Musculoskeletal exam: PRESENT: normal inspection. ABSENT: deformity Neurological exam: PRESENT: alert, awake, oriented to person, oriented to place, oriented to time, oriented to situation Results Laboratory Results: 07/10/18 05:15 07/08/18 07:22 Impressions: Chest X-Ray 07/08/18 07:06 IMPRESSION: No significant change. Qualifiers - * PATIENT BEING DISCHARGED WITH ANY OF THE FOLLOWING DIAGNOSIS: No Plan Time Spent: Greater than 30 Minutes
== END 2018-07-11 13:48 | disposition home or self-care (01) | DRG 812 ==
LOC: ER 00:36 → EH 11:14 → 4S 19:28
PROVIDERS: ADMIT Family Medicine; ATTEND Family Medicine
DX: D57.00 Hb-SS disease with crisis, unspecified (principal); G89.29 Other chronic pain; M54.9 Dorsalgia, unspecified; F32.9 Major depressive disorder, single episode, unspecified; Z86.718 Personal history of other venous thrombosis and embolism; Z90.49 Acquired absence of other specified parts of digestive tract; Z88.6 Allergy status to analgesic agent; Z91.018 Allergy to other foods; Z79.891 Long term (current) use of opiate analgesic
CPT/HCPCS: 36415; 36591; 71045; 80053; 81001; 81025; 83615; 85025; 85027; 85045; 96361; 96374; 96375; 96376; 99284; J1170; J1200; J1885; J2550; J3010; J3490; J7030

== ENCOUNTER 2018-07-12 20:38 | Inpatient (IN) | payer MEDICAID ==
--- NOTE | 2018-07-12 21:28 | ER Document Report ---
ED Medical Screen (RME) - General Chief Complaint: Sickle Cell Crisis Stated Complaint: CHEST PAIN Time Seen by Provider: 07/12/18 21:16 Primary Care Provider: JOIE MOREIRA MD [Primary Care Provider] - Follow up as needed TRAVEL OUTSIDE OF THE [place] IN LAST 30 DAYS: No - HPI Notes: 07/12/18 21:23 Patient is a 23-year-old female who presents to the emergency department with chest pain, shortness of breath, and low back pain. Patient reports that she was recently seen in this hospital for sickle cell crisis. Patient woke up this morning with chest pain and shortness of breath, states that she took her prescribed medication which is Dilaudid 2 mg every 6 hours as needed without relief. Plaint of midsternal chest pain that radiates underneath bilateral ribs. Complaint of nausea, but no vomiting. - Related Data Allergies/Adverse Reactions: morphine Allergy (Severe, Verified 07/01/18 22:45) RASH,SWELLING jacob peppers Adverse Reaction (Severe, Uncoded 06/22/18 16:13) throat closes Past Medical History - Social History Family history: Reviewed & Not Pertinent, Other - Pt was adopted. Does not know family history - Past Medical History Cardiac Medical History: Reports: Hx DVT - RUE s/p port placement Pulmonary Medical History: Reports: Hx Asthma, Hx Bronchitis - once in past per patient, Hx Pneumonia - 2014 Neurological Medical History: Endocrine Medical History: Denies: Hx Diabetes Mellitus Type 1, Hx Diabetes Mellitus Type 2 Renal/ Medical History: Denies: Hx Peritoneal Dialysis GI Medical History: Musculoskeltal Medical History: Reports Hx Musculoskeletal Trauma Psychiatric Medical History: Reports: Hx Anxiety, Hx Depression Past Surgical History: Reports: Hx Cholecystectomy - 06/28/2015, Hx Vascular Surgery - port put in December,, Other - Port-A-Cath in right upper chest - Immunizations Immunizations up to date: Yes Hx Diphtheria, Pertussis, Tetanus Vaccination: Yes History of Influenza Vaccine for 12/2016 - 05/2017 Season: Yes Influenza Administration Date for 12/2016 - 05/2017 Season: 03/11/17 Physical Exam - Vital signs Vitals: Temp Pulse Resp BP Pulse Ox 98.4 F 87 28 H 113/61 91 L 07/12/18 20:51 07/12/18 20:51 07/12/18 20:51 07/12/18 20:51 07/12/18 20:51 - Respiratory Respiratory status: Tachypnea Chest status: Nontender Breath sounds: Normal Chest palpation: Normal Course - Re-evaluation Re-evalutation: 07/12/18 21:25 In triage patient tachypnea and hypoxic at 91% on room air. Orders initiated. I have greeted and performed a rapid initial assessment of this patient. A comprehensive ED assessment and evaluation of the patient, analysis of test results and completion of the medical decision making process will be conducted by additional ED providers. - Vital Signs Vital signs: Temp Pulse Resp BP Pulse Ox 98.4 F 87 28 H 113/61 91 L 07/12/18 20:51 07/12/18 20:51 07/12/18 20:51 07/12/18 20:51 07/12/18 20:51 Doctor's Discharge - Discharge Referrals: JOIE MOREIRA MD [Primary Care Provider] - Follow up as needed
[2018-07-12 21:53] LABS: ABSOLUTE RETICS # 0.211 10^6/uL (0.028-0.122); HEMATOCRIT 26.3 % (36.0-47.0); HEMOGLOBIN 9.5 g/dL (12.0-15.5); MEAN CORPUSCULAR HEMOGLOBIN 37.8 pg (27.0-33.4); MEAN CORPUSCULAR VOLUME 105 fl (80-97); PLATELET COUNT 357 10^3/uL (150-450); RED CELL DISTRIBUTION WIDTH 15.2 % (11.5-14.0); RETICULOCYTE COUNT (AUTO) 8.43 % (0.66-2.85); WHITE BLOOD COUNT 14.9 10^3/uL (4.0-10.5)
[2018-07-12 22:01] LABS: ALANINE AMINOTRANSFERASE 66 U/L (9-52); ALBUMIN 4.8 g/dL (3.5-5.0); ALKALINE PHOSPHATASE 104 U/L (38-126); ANION GAP 11 (5-19); ASPARTATE AMINO TRANSFERASE 86 U/L (14-36); BILIRUBIN,TOTAL 12.6 mg/dL (0.2-1.3); BLOOD UREA NITROGEN 5 mg/dL (7-20); CALCIUM 10.1 mg/dL (8.4-10.2); CARBON DIOXIDE 20 mmol/L (22-30); CHLORIDE 110 mmol/L (98-107); GLUCOSE 102 mg/dL (75-110); POTASSIUM 3.8 mmol/L (3.6-5.0); SODIUM 141.3 mmol/L (137-145); TOTAL PROTEIN 8.7 g/dL (6.3-8.2)
[2018-07-12 22:09] LABS: ABSOLUTE LYMPHOCYTES# (MANUAL) 3.1 10^3/uL (0.5-4.7); ABSOLUTE MONOCYTES # (MANUAL) 1.5 10^3/uL (0.1-1.4); ABSOLUTE NEUTROPHILS# (MANUAL) 10.1 10^3/uL (1.7-8.2); BASOPHILS % (MANUAL) 0 % (0-2); EOSINOPHILS % (MANUAL) 1 % (0-6); LYMPHOCYTES % (MANUAL) 21 % (13-45); MONOCYTES % (MANUAL) 10 % (3-13); NUCLEATED RED BLOOD CELLS 11 /100 WBC (0); SEGMENTED NEUTROPHILS % (MAN) 68 % (42-78); TOTAL CELLS COUNTED 100
[2018-07-12 22:16] LABS: ANISOCYTOSIS SLIGHT; PLATELET CLUMPS PRESENT; POIKILOCYTOSIS 1+; POLYCHROMASIA 1+; SCHISTOCYTES SLIGHT; SICKLE RED CELLS 1+; TARGET CELLS 1+
--- NOTE | 2018-07-12 22:24 | RADIOLOGY REPORT (SQ) ---
EXAM DESCRIPTION: [facility]: XR CHEST 2 VIEWS Views: 2 CLINICAL HISTORY: 23 years Female, chest pain, shortness of breath COMPARISON: 07/08/2018 FINDINGS: The lungs are clear. No pneumothorax or significant pleural effusion. Right IJ port remains in place, tip in the SVC. Cardiomediastinal silhouette is within normal limits. Endplate concavities throughout the spine. No acute bone findings. Right upper quadrant surgical clips are noted. IMPRESSION: 1. No acute cardiothoracic abnormality. 2. Chronic findings of the spine, suggesting sickle cell disease 3. Previous cholecystectomy 4. Right IJ port remains in place.
--- NOTE | 2018-07-12 23:40 | EKG REPORT ---
SEVERITY:- NORMAL ECG - SINUS RHYTHM : Confirmed by: Nathan Lopez 12-Jul-2018 23:38:57
--- NOTE | 2018-07-12 23:51 | ER Document Report ---
ED General - General Chief Complaint: Sickle Cell Crisis Stated Complaint: CHEST PAIN Time Seen by Provider: 07/12/18 21:16 Notes: Patient is a 23 year old female with a history of sickle cell disease who presents with recurrent chest and back pain. She was recently discharged from the hospital yesterday. At that time she was sent home with a prescription for Dilaudid, but has not been able to picker / packer the medicine. Tonight she developed the pain and some mild SOB. Her SpO2 was 91% in triage, but is improved her in the room. She denies abdominal pain, not fevers, no vomiting. She did have acute chest syndrome once last year, but says this does not feel similar. She is followed by Dr. Baum. TRAVEL OUTSIDE OF THE [place] IN LAST 30 DAYS: No - Related Data Allergies/Adverse Reactions: morphine Allergy (Severe, Verified 07/01/18 22:45) RASH,SWELLING jacob peppers Adverse Reaction (Severe, Uncoded 06/22/18 16:13) throat closes Past Medical History - Social History Smoking Status: Never Smoker Frequency of alcohol use: None Drug Abuse: None Family History: Other - Sickle cell disease and sickle cell trait, asthma Patient has suicidal ideation: No Patient has homicidal ideation: No - Past Medical History Cardiac Medical History: Reports: Hx DVT - RUE s/p port placement Pulmonary Medical History: Reports: Hx Asthma, Hx Bronchitis - once in past per patient, Hx Pneumonia - 2014 Neurological Medical History: Endocrine Medical History: Denies: Hx Diabetes Mellitus Type 1, Hx Diabetes Mellitus Type 2 Renal/ Medical History: Denies: Hx Peritoneal Dialysis GI Medical History: Musculoskeletal Medical History: Reports Hx Musculoskeletal Trauma Psychiatric Medical History: Reports: Hx Anxiety, Hx Depression Past Surgical History: Reports: Hx Cholecystectomy - 06/28/2015, Hx Vascular Surgery - port put in December,, Other - Port-A-Cath in right upper chest - Immunizations Immunizations up to date: Yes Hx Diphtheria, Pertussis, Tetanus Vaccination: Yes Review of Systems - Review of Systems Notes: My Normal Review Basic REVIEW OF SYSTEMS: CONSTITUTIONAL : Denies fever, chills, or sweats. Denies recent illness. EENT: Denies eye, ear, throat, or mouth pain or symptoms. Denies nasal or sinus congestion. CARDIOVASCULAR: chest pain. not pleuritic RESPIRATORY: mild SOB GASTROINTESTINAL: Denies abdominal pain. Denies nausea, vomiting, or diarrhea. GENITOURINARY: Denies difficulty urinating, painful urination, burning, freq uency, or blood in urine. MUSCULOSKELETAL: Denies neck or back pain or joint pain or swelling. SKIN: Denies rash or skin lesions. HEMATOLOGIC : Hx of sickle cell NEUROLOGICAL: Denies altered mental status or loss of consciousness. Denies headache. Denies weakness or paralysis or loss of use of either side. Denies problems with gait or speech. Denies sensory or motor loss. ALL OTHER SYSTEMS REVIEWED AND NEGATIVE. Physical Exam - Vital signs Vitals: Temp Pulse Resp BP Pulse Ox 98.4 F 87 28 H 113/61 91 L 07/12/18 20:51 07/12/18 20:51 07/12/18 20:51 07/12/18 20:51 07/12/18 20:51 - Notes Notes: General Appearance: Well nourished, alert, cooperative, no acute distress, moderate obvious discomfort. Vitals: reviewed, See vital signs table. Head: no swelling or tenderness to the head Eyes: PERRL, EOMI, Conjuctiva clear Mouth: No decreasd moisture Chest wall. No reproducible pain to palpation of chest wall back; No redness or swelling over the back Lungs: No wheezing, No rales, No rhonci, No accessory muscle use, good air exchange bilaterally. Heart: Normal rate, Regular rythm, No murmur, no rub Abdomen: Normal BS, soft, No rigidity, No abdominal tenderness, No guarding, no rebound, no abdominal masses, no organomegaly Extremities: strength 5/5 in all extremities, good pulses in all extremities, no swelling or tenderness in the extremities, no edema. Skin: warm, dry, appropriate color, no rash Neuro: speech clear, oriented x 3, normal affect, responds appropriately to question Course - Re-evaluation Re-evalutation: 07/13/18 02:32 Patient's pain is doing some better in comparison to when she first arrived, but still has some recurrent pain. Respiratory status is improved as the patient now 97% on RA. Patient's hgb is stable but her Retic count and percentages a very high. Case discussed with Dr. Simmons who agrees to evaluate patient for admission. - Vital Signs Vital signs: Temp Pulse Resp BP Pulse Ox 98.4 F 87 20 116/65 100 07/12/18 20:51 07/12/18 20:51 07/12/18 22:15 07/12/18 22:15 07/12/18 22:15 - Laboratory Result Diagrams: 07/12/18 21:33 07/12/18 21:33 Laboratory results interpreted by me: 07/12/18 07/12/18 21:33 21:33 WBC 14.9 H RBC 2.50 L Hgb 9.5 L Hct 26.3 L MCV 105 H MCH 37.8 H RDW 15.2 H Abs Neuts (Manual) 10.1 H Abs Monocytes (Manual) 1.5 H Retic Count (auto) 8.43 H Absolute Retic 0.211 H Chloride 110 H Carbon Dioxide 20 L BUN 5 L Creatinine 0.48 L Total Bilirubin 12.6 H Direct Bilirubin 2.0 H AST 86 H ALT 66 H Total Protein 8.7 H - EKG Interpretation by Me Additional EKG results interpreted by me: 07/12/18 23:48 EKG is reviewed and interpreted by me. EKG shows normal sinus rhythm with a rate of [address] segment elevation or depression. No T wave inversions. MS inte rval, QRS duration, and Qtc intervals are within normal range. Old EKG for comparison is from 07/06/18. Discharge - Discharge Clinical Impression: Sickle cell crisis Condition: Stable Disposition: ADMITTED OBSERVATION Admitting Provider: Troy (Hospitalist) Unit Admitted: Telemetry
[2018-07-12] MEDS ORDERED: NORMAL SALINE 1000 ML 1,000 ML IV ONE (23:55)
[2018-07-12] MEDS ORDERED: DIPHENHYDRAMINE HCL 50 MG/ML VIAL IV ONE (23:55)
[2018-07-12] MEDS ORDERED: HYDROMORPHONE HCL INJ/PF 2 MG/ML AMPULE IV ONE (23:55)
[2018-07-13] MEDS ORDERED: PROMETHAZINE HCL 25 MG TABLET PO PRN (01:13)
[2018-07-13] MEDS ORDERED: PROMETHAZINE HCL 25 MG SUPP.RECT PR PRN (01:13)
[2018-07-13] MEDS ORDERED: ACETAMINOPHEN 325 MG TABLET PO PRN (01:13)
[2018-07-13] MEDS ORDERED: ACETAMINOPHEN 650 MG SUPP.RECT PR PRN (01:13)
[2018-07-13] MEDS ORDERED: MAGNESIUM HYDROXIDE SUSP 30 ML UDCUP PO PRN (01:13)
[2018-07-13] MEDS ORDERED: IPRATROPIUM/ALBUTEROL 0.5-2.5 MG/3 ML AMPUL NEB PRN (01:13)
[2018-07-13] MEDS ORDERED: MAG HYDROX/AL HYDROX/SIMETH SUSP 30 ML UDCUP PO PRN (01:13)
[2018-07-13] MEDS ORDERED: HYDROMORPHONE HCL INJ/PF 2 MG/ML AMPULE IV ONE (01:25)
[2018-07-13] MEDS ORDERED: NORMAL SALINE 1000 ML 1,000 ML IV PRN (02:00)
[2018-07-13] MEDS: ARIPIPRAZOLE 5 MG TABLET PO SCH ×2 (02:22→21:41)
[2018-07-13] MEDS: DIPHENHYDRAMINE HCL 50 MG CAPSULE PO PRN (02:22)
[2018-07-13] MEDS: HYDROXYUREA 500 MG CAPSULE PO SCH ×3 (03:40→17:21)
--- NOTE | 2018-07-13 05:01 | PDOC H&P ---
History of Present Illness Admission Date/PCP: 07/13/18 01:34 JOIE MOREIRA MD Patient complains of: Back and chest pain History of Present Illness: CASSANDRA MIDDLETON is a 23 year old female with a past medical history of sickle cell anemia, chronic pain with opiate dependence, and recurrent vaso-occlusive crisis requiring frequent hospitalizations. Patient has in fact required no less than 50 ER presentations in the last 12 months without acute chest syndrome. Today she presents with intractable low back and chest pain suggestive of previous vaso-occlusive crisis, she is without hypertension, tachycardia or tachypnea but labs reveal hyperbilirubinemia and elevated reticulocyte count. She receives symptomatic management and referred to the hospitalist for admission. She denies recent change of medication, fever chills nausea vomiting and is otherwis e felt well. Pain management is deferred to hematology Dr. Moreira. Past Medical History Cardiac Medical History: Reports: DVT - RUE s/p port placement Pulmonary Medical History: Reports: Asthma, Bronchitis - once in past per patient, Pneumonia - 2014 Neurological Medical History: Endocrine Medical History: Denies: Diabetes Mellitus Type 1, Diabetes Mellitus Type 2 Renal/ Medical History: GI Medical History: Musculoskeltal Medical History: Psychiatric Medical History: Reports: Depression Hematology: Reports: Anemia, Sickle Cell Disease Denies: Bleeding Tendencies Past Surgical History Past Surgical History: Reports: Cholecystectomy - 06/28/2015, Vascular Surgery - port put in December,, Other - Port-A-Cath in right upper chest Social History Information Source: Patient Smoking Status: Never Smoker Frequency of Alcohol Use: None Hx Recreational Drug Use: No Drugs: None Hx Prescription Drug Abuse: No Family History Family History: Other - Sickle cell disease and sickle cell trait, asthma Parental Family History Reviewed: Yes Children Family History Reviewed: Yes Sibling(s) Family History Reviewed.: Yes Medication/Allergy Home Medications: Aripiprazole [Abilify 10 mg Tablet] 10 mg PO QHS 06/14/18 Escitalopram Oxalate [Lexapro] 10 mg PO QHS 06/14/18 Folic Acid [Folvite 1 mg Tablet] 1 mg PO DAILY 06/14/18 Hydroxyurea [Hydrea 500 mg Capsule] 500 mg PO BID 06/14/18 Rivaroxaban [Xarelto] 20 mg PO DAILY 06/14/18 Hydroxyzine Pamoate [Vistaril 25 mg Capsule] 25 mg PO PRN PRN 07/08/18 Allergies/Adverse Reactions: morphine Allergy (Severe, Verified 07/01/18 22:45) RASH,SWELLING jacob peppers Adverse Reaction (Severe, Uncoded 06/22/18 16:13) throat closes Review of Systems Constitutional: ABSENT: chills, fever(s), headache(s), weight gain, weight loss Eyes: ABSENT: visual disturbances Ears: ABSENT: hearing changes Cardiovascular: ABSENT: chest pain, dyspnea on exertion, edema, orthropnea, palpitations Respiratory: ABSENT: cough, hemoptysis Gastrointestinal: ABSENT: abdominal pain, constipation, diarrhea, hematemesis, hematochezia, nausea, vomiting Genitourinary: ABSENT: dysuria, hematuria Musculoskeletal: ABSENT: joint swelling Integumentary: ABSENT: rash, wounds Neurological: ABSENT: abnormal gait, abnormal speech, confusion, dizziness, focal weakness, syncope Psychiatric: ABSENT: anxiety, depression, homidical ideation, suicidal ideation Endocrine: ABSENT: cold intolerance, heat intolerance, polydipsia, polyuria Hematologic/Lymphatic: ABSENT: easy bleeding, easy bruising Physical Exam Vital Signs: Temp Pulse Resp BP Pulse Ox 98.4 F 87 20 116/65 100 07/12/18 20:51 07/12/18 20:51 07/12/18 22:15 07/12/18 22:15 07/12/18 22:15 Intake & Output 07/11/18 07/12/18 07/13/18 11:59 11:59 11:59 Intake Total 1000 Balance 1000 Weight 64.864 kg General appearance: PRESENT: no acute distress, well-developed, well-nourished Head exam: PRESENT: atraumatic, normocephalic Eye exam: PRESENT: conjunctiva pink, EOMI, PERRLA. ABSENT: scleral icterus Ear exam: PRESENT: normal external ear exam Mouth exam: PRESENT: moist, tongue midline Neck exam: ABSENT: carotid bruit, JVD, lymphadenopathy, thyromegaly Respiratory exam: PRESENT: clear to auscultation samaria. ABSENT: rales, rhonchi, wheezes Cardiovascular exam: PRESENT: RRR. ABSENT: diastolic murmur, rubs, systolic mu rmur Pulses: PRESENT: normal dorsalis pedis pul Vascular exam: PRESENT: normal capillary refill GI/Abdominal exam: PRESENT: normal bowel sounds, soft. ABSENT: distended, guarding, mass, organolmegaly, rebound, tenderness Rectal exam: PRESENT: deferred Extremities exam: PRESENT: full ROM. ABSENT: calf tenderness, clubbing, pedal edema Neurological exam: PRESENT: alert, awake, oriented to person, oriented to place, oriented to time, oriented to situation, CN II-XII grossly intact. ABSENT: motor sensory deficit Psychiatric exam: PRESENT: appropriate affect, normal mood. ABSENT: homicidal ideation, suicidal ideation Skin exam: PRESENT: dry, intact, warm. ABSENT: cyanosis, rash Results Laboratory Results: 07/12/18 21:33 07/12/18 21:33 07/12/18 07/12/18 21:33 21:33 WBC 14.9 H RBC 2.50 L Hgb 9.5 L Hct 26.3 L MCV 105 H MCH 37.8 H MCHC 36.0 RDW 15.2 H Plt Count 357 Seg Neutrophils % Not Reportable Lymphocytes % Not Reportable Monocytes % Not Reportable Eosinophils % Not Reportable Basophils % Not Reportable Absolute Neutrophils Not Reportable Absolute Lymphocytes Not Reportable Absolute Monocytes Not Reportable Absolute Eosinophils Not Reportable Absolute Basophils Not Reportable Retic Count (auto) 8.43 H Absolute Retic 0.211 H Sodium 141.3 Potassium 3.8 Chloride 110 H Carbon Dioxide 20 L Anion Gap 11 BUN 5 L Creatinine 0.48 L Est GFR ( Amer) > 60 Est GFR (Non-Af Amer) > 60 Glucose 102 Calcium 10.1 Total Bilirubin 12.6 H AST 86 H ALT 66 H Alkaline Phosphatase 104 Total Protein 8.7 H Albumin 4.8 07/12/18 21:33 Troponin I 0.015 Impressions: Chest X-Ray 07/12/18 21:16 IMPRESSION: 1. No acute cardiothoracic abnormality. 2. Chronic findings of the spine, suggesting sickle cell disease 3. Previous cholecystectomy 4. Right IJ port remains in place. Assessment and Plan - Diagnosis (1) Sickle cell crisis Is this a current diagnosis for this admission?: Yes Plan: IV fluids, hydroxyurea, oxygen, symptomatic management, follow-up consult with hematology for pain management. 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
[2018-07-13] MEDS: HYDROMORPHONE HCL INJ/PF 2 MG/ML AMPULE IV PRN ×8 (05:23→23:45)
[2018-07-13 09:49] LABS: HEMATOCRIT 25.1 % (36.0-47.0); HEMOGLOBIN 9.2 g/dL (12.0-15.5); MEAN CORPUSCULAR HEMOGLOBIN 38.6 pg (27.0-33.4); MEAN CORPUSCULAR HGB CONC 36.5 g/dL (32.0-36.0); MEAN CORPUSCULAR VOLUME 106 fl (80-97); PLATELET COUNT 278 10^3/uL (150-450); RED BLOOD COUNT 2.37 10^6/uL (3.72-5.28); RED CELL DISTRIBUTION WIDTH 15.9 % (11.5-14.0)
--- NOTE | 2018-07-13 10:23 | PDOC PROGRESS REPORT ---
Subjective Progress Note for:: 07/13/18 Subjective:: 23 year old female with a past medical history of sickle cell anemia, chronic pain with opiate dependence, and recurrent vaso-occlusive crisis requiring frequent hospitalizations. Patient has in fact required no less than 50 ER presentations in the last 12 months without acute chest syndrome. Today she presents with intractable low back and chest pain suggestive of previous vaso- occlusive crisis, she is without hypertension, tachycardia or tachypnea but labs reveal hyperbilirubinemia and elevated reticulocyte count. She receives symptomatic management and referred to the hospitalist for admission. She denies recent change of medication, fever chills nausea vomiting and is otherwise felt well. Pain management is deferred to hematology Dr. Baum. [id number] female with sickle cell anemia, chronic pain with opiate dependency admitted for lower back pain. Patient is receiving 2 mg of IV Dilaudid every 3 as needed and patient is crying at the time of examination she wants me to get in touch with Dr. Baum to increase the dose and increase the frequency of her Dilaudid. I spoke to Dr. lares she recommended to start on IV Dilaudid 3 mg every 3 as needed and also recommended oxygen supplementation and IV fluids to The Recovery from the Sickle Cell Crisis. plan is to continue IV fluids at 100 cc/h and oxygen supplementation. Patient is afebrile vitals are stable. Reason For Visit: SS PAIN CRISIS, ANEMIA Physical Exam Vital Signs: Temp Pulse Resp BP Pulse Ox 98.4 F 86 18 117/62 96 07/12/18 20:51 07/13/18 08:00 07/13/18 10:01 07/13/18 10:00 07/13/18 10:01 Intake & Output 07/12/18 07/13/18 07/14/18 06:59 06:59 06:59 Intake Total 1000 Balance 1000 Weight 64.864 kg General appearance: PRESENT: other - Moderate to severe distress Head exam: PRESENT: atraumatic Eye exam: PRESENT: PERRLA Mouth exam: PRESENT: moist, tongue midline Neck exam: ABSENT: carotid bruit, JVD, lymphadenopathy, thyromegaly Respiratory exam: PRESENT: clear to auscultation samaria. ABSENT: rales, rhonchi, wheezes Cardiovascular exam: PRESENT: tachycardia GI/Abdominal exam: PRESENT: normal bowel sounds, soft. ABSENT: distended, guarding, mass, organolmegaly, rebound, tenderness Extremities exam: PRESENT: full ROM. ABSENT: calf tenderness, clubbing, pedal edema Neurological exam: PRESENT: alert, awake, oriented to person, oriented to place, oriented to time, oriented to situation, CN II-XII grossly intact. ABSENT: motor sensory deficit Psychiatric exam: PRESENT: appropriate affect, normal mood. ABSENT: homicidal ideation, suicidal ideation Results Laboratory Results: 07/12/18 21:33 07/12/18 07/12/18 07/13/18 21:33 21:33 09:24 WBC 14.9 H RBC 2.50 L Hgb 9.5 L Hct 26.3 L MCV 105 H MCH 37.8 H MCHC 36.0 RDW 15.2 H Plt Count 357 Seg Neutrophils % Not Reportable Not Reportable Lymphocytes % Not Reportable Not Reportable Monocytes % Not Reportable Not Reportable Eosinophils % Not Reportable Not Reportable Basophils % Not Reportable Not Reportable Absolute Neutrophils Not Reportable Not Reportable Absolute Lymphocytes Not Reportable Not Reportable Absolute Monocytes Not Reportable Not Reportable Absolute Eosinophils Not Reportable Not Reportable Absolute Basophils Not Reportable Not Reportable Retic Count (auto) 8.43 H Absolute Retic 0.211 H Sodium 141.3 Potassium 3.8 Chloride 110 H Carbon Dioxide 20 L Anion Gap 11 BUN 5 L Creatinine 0.48 L Est GFR ( Amer) > 60 Est GFR (Non-Af Amer) > 60 Glucose 102 Calcium 10.1 Total Bilirubin 12.6 H AST 86 H ALT 66 H Alkaline Phosphatase 104 Total Protein 8.7 H Albumin 4.8 07/12/18 21:33 Troponin I 0.015 Impressions: Chest X-Ray 07/12/18 21:16 IMPRESSION: 1. No acute cardiothoracic abnormality. 2. Chronic findings of the spine, suggesting sickle cell disease 3. Previous cholecystectomy 4. Right IJ port remains in place. Assessment and Plan - Diagnosis (1) Sickle cell crisis Is this a current diagnosis for this admission?: Yes Plan: IV fluids, hydroxyurea, oxygen, symptomatic management, follow-up consult with hematology for pain management. 07/13/2018-plan to continue IV fluids normal saline at 100 cc/h, oxygen 2 L via nasal cannula, hydroxyurea, IV Dilaudid 3 mg every 2 hours as needed. Check the labs tomorrow including reticulocyte count. Consult with Dr. Baum was requested. 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 Hemoglobin is 9.5. Plan to check the hemoglobin on daily basis. (3) Leukocytosis Qualifiers: Leukocytosis type: unspecified Qualified Code(s): D72.829 - Elevated white blood cell count, unspecified Is this a current diagnosis for this admission?: Yes Plan: 07/13/2018-patient came in with a WBC count of 14,900 leukocytosis most likely secondary to sickle cell crisis with distress. pt is afebrile no no evidence of sepsis. (5) DVT (deep venous thrombosis) Is this a current diagnosis for this admission?: No Plan: 07/13/2018-patient has history of DVT rapid upper extremity patient is on Xarelto at home. To start on Xarelto during this admission. Further management will be deferred to hematology. - Time Time Spent with patient: 15-24 minutes Smoking Cessation Education: 3 to 10 minutes Medications reviewed and adjusted accordingly: Yes Anticipated discharge: Home
[2018-07-13 10:38] LABS: ABSOLUTE LYMPHOCYTES# (MANUAL) 5.4 10^3/uL (0.5-4.7); ABSOLUTE MONOCYTES # (MANUAL) 2.7 10^3/uL (0.1-1.4); ABSOLUTE NEUTROPHILS# (MANUAL) 8.6 10^3/uL (1.7-8.2); BASOPHILS % (MANUAL) 3 % (0-2); EOSINOPHILS % (MANUAL) 4 % (0-6); LYMPHOCYTES % (MANUAL) 29 % (13-45); METAMYELOCYTES % (MANUAL) 1 % (0); MONOCYTES % (MANUAL) 15 % (3-13); NUCLEATED RED BLOOD CELLS 17 /100 WBC (0); SEGMENTED NEUTROPHILS % (MAN) 46 % (42-78); TOTAL CELLS COUNTED 100
[2018-07-13 10:47] LABS: ANISOCYTOSIS SLIGHT; OVALOCYTES SLIGHT; POIKILOCYTOSIS 2+; POLYCHROMASIA 2+; TOXIC VACUOLATION PRESENT
[2018-07-13 10:48] LABS: PAPPENHEIMER BODIES PRESENT; SCHISTOCYTES 1+; SICKLE RED CELLS SLIGHT; TARGET CELLS 1+; TEAR DROP CELLS 1+
[2018-07-13 10:49] LABS: MYELOCYTES % (MANUAL) 1 % (0); PLATELET COMMENT ADEQUATE
[2018-07-13] MEDS: FOLIC ACID 1 MG TABLET PO SCH (11:10)
[2018-07-13] MEDS: DOCUSATE SODIUM 100 MG CAPSULE PO SCH ×2 (11:10→17:21)
[2018-07-13] MEDS: NORMAL SALINE 1000 ML 1,000 ML IV PRN ×2 (11:34→22:05)
[2018-07-13] MEDS: RIVAROXABAN 10 MG TABLET PO SCH (17:21)
[2018-07-13] MEDS: ESCITALOPRAM OXALATE 10 MG TABLET PO SCH (21:40)
[2018-07-14] MEDS: HYDROMORPHONE HCL INJ/PF 2 MG/ML AMPULE IV PRN ×9 (03:30→21:49)
[2018-07-14] MEDS: DIPHENHYDRAMINE HCL 50 MG CAPSULE PO PRN ×3 (05:00→21:49)
[2018-07-14 06:22] LABS: HEMATOCRIT 21.1 % (36.0-47.0); MEAN CORPUSCULAR HEMOGLOBIN 39.6 pg (27.0-33.4); MEAN CORPUSCULAR VOLUME 105 fl (80-97); PLATELET COUNT 272 10^3/uL (150-450); RED BLOOD COUNT 2.01 10^6/uL (3.72-5.28); RED CELL DISTRIBUTION WIDTH 16.5 % (11.5-14.0); WHITE BLOOD COUNT 13.4 10^3/uL (4.0-10.5)
[2018-07-14 06:35] LABS: ALANINE AMINOTRANSFERASE 65 U/L (9-52); ALBUMIN 3.4 g/dL (3.5-5.0); ALKALINE PHOSPHATASE 64 U/L (38-126); ASPARTATE AMINO TRANSFERASE 75 U/L (14-36); BILIRUBIN,DIRECT 1.4 mg/dL (0.0-0.4); BILIRUBIN,TOTAL 10.6 mg/dL (0.2-1.3); BLOOD UREA NITROGEN 4 mg/dL (7-20); CALCIUM 8.8 mg/dL (8.4-10.2); CARBON DIOXIDE 26 mmol/L (22-30); CHLORIDE 110 mmol/L (98-107); GLUCOSE 103 mg/dL (75-110); POTASSIUM 3.6 mmol/L (3.6-5.0); SODIUM 139.9 mmol/L (137-145); TOTAL PROTEIN 6.6 g/dL (6.3-8.2)
[2018-07-14 07:25] LABS: ANION GAP 4 (5-19)
[2018-07-14 07:59] LABS: MEAN CORPUSCULAR HGB CONC 37.6 g/dL (32.0-36.0)
[2018-07-14 08:05] LABS: ABSOLUTE MONOCYTES # (MANUAL) 1.1 10^3/uL (0.1-1.4); ABSOLUTE NEUTROPHILS# (MANUAL) 9.4 10^3/uL (1.7-8.2); BASOPHILS % (MANUAL) 0 % (0-2); EOSINOPHILS % (MANUAL) 7 % (0-6); LYMPHOCYTES % (MANUAL) 15 % (13-45); MONOCYTES % (MANUAL) 8 % (3-13); NUCLEATED RED BLOOD CELLS 24 /100 WBC (0); SEGMENTED NEUTROPHILS % (MAN) 70 % (42-78); TOTAL CELLS COUNTED 100
[2018-07-14 08:13] LABS: ANISOCYTOSIS 1+; POLYCHROMASIA SLIGHT
[2018-07-14 08:14] LABS: PAPPENHEIMER BODIES PRESENT; PLATELET COMMENT ADEQUATE; SCHISTOCYTES 1+; SICKLE RED CELLS 1+; TARGET CELLS 1+
[2018-07-14 08:15] LABS: POIKILOCYTOSIS 1+
[2018-07-14 08:16] LABS: HEMOGLOBIN 7.9 g/dL (12.0-15.5)
[2018-07-14] MEDS: NORMAL SALINE 1000 ML 1,000 ML IV PRN ×2 (08:45→17:39)
[2018-07-14] MEDS ORDERED: POLYETHYLENE GLYCOL 3350 POWDER 17 GM/1 PACKET PO PRN (08:46)
[2018-07-14] MEDS: DOCUSATE SODIUM 100 MG CAPSULE PO SCH ×2 (10:34→17:38)
[2018-07-14] MEDS: FOLIC ACID 1 MG TABLET PO SCH (10:35)
[2018-07-14] MEDS: HYDROXYUREA 500 MG CAPSULE PO SCH ×2 (10:50→17:38)
--- NOTE | 2018-07-14 14:20 | PDOC CONSULTATION ---
Consultation Consult Date: 07/14/18 Consult reason:: Hematology/Oncology consultation was requested for patient with Sickle Cell Pain crisis. History of Present Illness Admission Date/PCP: 07/13/18 01:34 JOIE MOREIRA MD History of Present Illness: CASSANDRA MIDDLETON is a 23 year old female Past Medical History Cardiac Medical History: Reports: DVT - RUE s/p port placement Pulmonary Medical History: Reports: Asthma, Bronchitis - once in past per patient, Pneumonia - 2014 Neurological Medical History: Endocrine Medical History: Denies: Diabetes Mellitus Type 1, Diabetes Mellitus Type 2 Renal/ Medical History: GI Medical History: Musculoskeltal Medical History: Psychiatric Medical History: Reports: Depression - Lyla Bhumika Admission 05/14/2016 Hematology: Reports: Anemia, Sickle Cell Disease Denies: Bleeding Tendencies Past Surgical History Past Surgical History: Reports: Cholecystectomy - 06/28/2015, Vascular Surgery - port put in December,, Other - Port-A-Cath in right upper chest Social History Smoking Status: Former Smoker Number of Years Smokin Frequency of Alcohol Use: Social Hx Recreational Drug Use: No Drugs: None Hx Prescription Drug Abuse: No - Advance Directive Resuscitation Status: Full Code Family History Family History: Other - Sickle cell disease and sickle cell trait, asthma Parental Family History Reviewed: Yes Children Family History Reviewed: No Sibling(s) Family History Reviewed.: Yes Medication/Allergy Home Medications: No Home Medications 07/13/18 Allergies/Adverse Reactions: morphine Allergy (Severe, Verified 07/13/18 05:45) RASH,SWELLING jacob peppers Adverse Reaction (Severe, Uncoded 07/13/18 05:45) throat closes Review of Systems Constitutional: ABSENT: fever(s), headache(s) Eyes: ABSENT: visual disturbances Ears: ABSENT: hearing changes Nose, Mouth, and Throat: ABSENT: sore throat Cardiovascular: PRESENT: chest pain Respiratory: ABSENT: dyspnea, hemoptysis Gastrointestinal: PRESENT: constipation, nausea Genitourinary: ABSENT: dysuria Musculoskeletal: PRESENT: back pain, other - Muscle and bone pain Integumentary: ABSENT: rash Neurological: ABSENT: focal weakness Physical Exam Vital Signs: Temp Pulse Resp BP Pulse Ox 98.5 F 90 17 116/98 H 98 07/14/18 11:32 07/14/18 11:32 07/14/18 11:32 07/14/18 11:32 07/14/18 11:32 Intake & Output 07/13/18 07/14/18 07/15/18 06:59 06:59 06:59 Intake Total 1000 2190 1000 Balance 1000 2190 1000 Weight 64.864 kg 63.5 kg General appearance: PRESENT: no acute distress, well-developed, well-nourished Exam: 23 year old female. Head exam: PRESENT: normocephalic Eye exam: PRESENT: EOMI, PERRLA Mouth exam: PRESENT: tongue midline Throat exam: ABSENT: post pharyngeal erythema Neck exam: ABSENT: lymphadenopathy, tenderness Respiratory exam: PRESENT: clear to auscultation samaria, unlabored Cardiovascular exam: PRESENT: RRR GI/Abdominal exam: PRESENT: soft. ABSENT: tenderness Extremities exam: ABSENT: pedal edema Musculoskeletal exam: PRESENT: normal inspection Neurological exam: PRESENT: alert, awake Psychiatric exam: PRESENT: appropriate affect Focused psych exam: ABSENT: psychomotor agitation, restlessness Skin exam: PRESENT: normal color Results Laboratory Results: 07/14/18 05:40 07/14/18 05:40 07/14/18 07/14/18 05:40 05:40 WBC 13.4 H RBC 2.01 L Hgb 7.9 L Hct 21.1 L MCV 105 H MCH 39.6 H MCHC 37.6 H RDW 16.5 H Plt Count 272 Seg Neutrophils % Not Reportable Lymphocytes % Not Reportable Monocytes % Not Reportable Eosinophils % Not Reportable Basophils % Not Reportable Absolute Neutrophils Not Reportable Absolute Lymphocytes Not Reportable Absolute Monocytes Not Reportable Absolute Eosinophils Not Reportable Absolute Basophils Not Reportable Sodium 139.9 Potassium 3.6 Chloride 110 H Carbon Dioxide 26 Anion Gap 4 L BUN 4 L Creatinine 0.43 L Est GFR ( Amer) > 60 Est GFR (Non-Af Amer) > 60 Glucose 103 Calcium 8.8 Total Bilirubin 10.6 H AST 75 H ALT 65 H Alkaline Phosphatase 64 Total Protein 6.6 Albumin 3.4 L 07/12/18 21:33 Troponin I 0.015 Impressions: Chest X-Ray 07/12/18 21:16 IMPRESSION: 1. No acute cardiothoracic abnormality. 2. Chronic findings of the spine, suggesting sickle cell disease 3. Previous cholecystectomy 4. Right IJ port remains in place. Assessment & Plan - Diagnosis (1) Sickle cell crisis Is this a current diagnosis for this admission?: Yes Plan: Continue oxygen, IV fluids, and pain medication. She is also on Hydrea (2) History of DVT (deep vein thrombosis) Is this a current diagnosis for this admission?: Yes Plan: She continues Xarelto for prophylaxis. - Plan Summary Plan Summary: Would hold off on blood transfusions for now. I will check [facility] in am. Will follow closely.
[2018-07-14 15:24] LABS: PATH REVIEW PATHOLOGIST REVIEWED
[2018-07-14] MEDS: RIVAROXABAN 10 MG TABLET PO SCH (17:38)
[2018-07-14] MEDS: ESCITALOPRAM OXALATE 10 MG TABLET PO SCH (21:49)
[2018-07-14] MEDS: ARIPIPRAZOLE 5 MG TABLET PO SCH (22:05)
[2018-07-15] MEDS: NORMAL SALINE 1000 ML 1,000 ML IV PRN ×3 (01:38→23:58)
[2018-07-15] MEDS: HYDROMORPHONE HCL INJ/PF 2 MG/ML AMPULE IV PRN ×10 (01:38→23:55)
--- NOTE | 2018-07-15 06:26 | PDOC PROGRESS REPORT ---
Subjective Progress Note for:: 07/14/18 Subjective:: Mostly low back pain. No bowel movement for 4-5 days. Reason For Visit: SS PAIN CRISIS, ANEMIA Physical Exam Vital Signs: Temp Pulse Resp BP Pulse Ox 98.5 F 88 17 116/98 H 98 07/14/18 11:32 07/14/18 14:00 07/14/18 11:32 07/14/18 11:32 07/14/18 11:32 Intake & Output 07/13/18 07/14/18 07/15/18 06:59 06:59 06:59 Intake Total 1000 2190 1000 Balance 1000 2190 1000 Weight 64.864 kg 63.5 kg General appearance: PRESENT: cooperative, other - Moderate distress with noticeable discomfort Head exam: PRESENT: atraumatic, normocephalic Eye exam: PRESENT: conjunctiva pale Ear exam: PRESENT: normal external ear exam Respiratory exam: PRESENT: clear to auscultation samaria. ABSENT: prolonged expiratory phas, rales, rhonchi, wheezes Cardiovascular exam: PRESENT: RRR, +S1, +S2, systolic murmur - 3/6 GI/Abdominal exam: PRESENT: hypoactive bowel sounds, soft. ABSENT: distended, tenderness Rectal exam: PRESENT: deferred Gentrourinary exam: ABSENT: indwelling catheter Extremities exam: ABSENT: pedal edema Musculoskeletal exam: PRESENT: normal inspection Neurological exam: PRESENT: alert, awake, oriented to person, oriented to place, oriented to time, oriented to situation, CN II-XII grossly intact Psychiatric exam: PRESENT: appropriate affect - Affect reflects her discomfort. ABSENT: agitated, anxious Focused psych exam: ABSENT: delusional, restlessness Skin exam: PRESENT: dry, warm. ABSENT: rash Results Laboratory Results: 07/14/18 05:40 07/14/18 05:40 07/14/18 07/14/18 05:40 05:40 WBC 13.4 H RBC 2.01 L Hgb 7.9 L Hct 21.1 L MCV 105 H MCH 39.6 H MCHC 37.6 H RDW 16.5 H Plt Count 272 Seg Neutrophils % Not Reportable Lymphocytes % Not Reportable Monocytes % Not Reportable Eosinophils % Not Reportable Basophils % Not Reportable Absolute Neutrophils Not Reportable Absolute Lymphocytes Not Reportable Absolute Monocytes Not Reportable Absolute Eosinophils Not Reportable Absolute Basophils Not Reportable Sodium 139.9 Potassium 3.6 Chloride 110 H Carbon Dioxide 26 Anion Gap 4 L BUN 4 L Creatinine 0.43 L Est GFR ( Amer) > 60 Est GFR (Non-Af Amer) > 60 Glucose 103 Calcium 8.8 Total Bilirubin 10.6 H AST 75 H ALT 65 H Alkaline Phosphatase 64 Total Protein 6.6 Albumin 3.4 L 07/12/18 21:33 Troponin I 0.015 Impressions: Chest X-Ray 07/12/18 21:16 IMPRESSION: 1. No acute cardiothoracic abnormality. 2. Chronic findings of the spine, suggesting sickle cell disease 3. Previous cholecystectomy 4. Right IJ port remains in place. Assessment and Plan - Diagnosis (1) Acute sickle cell crisis Is this a current diagnosis for this admission?: Yes Plan: 07/14/2018-patient with acute sickle cell crisis. Please also see hematology note. IV fluids and pain management. Patient continues on her hydroxyurea. 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 Hematology will recheck tomorrow and decide if transfusion is required. (3) Back pain Qualifiers: Back pain location: back pain in unspecified location Chronicity: chronic Back pain laterality: unspecified Qualified Code(s): M54.9 - Dorsalgia, unspecified; G89.29 - Other chronic pain Is this a current diagnosis for this admission?: Yes Plan: 07/14/2018-this is the typical location of her pain during a crisis. She currently has intravenous Dilaudid available. Monitor for opioid-induced constipation. (4) Leukocytosis Qualifiers: Leukocytosis type: unspecified Qualified Code(s): D72.829 - Elevated white blood cell count, unspecified Is this a current diagnosis for this admission?: Yes Plan: 07/14/2018-White blood cell count is improving it is down to 13.4 from 18. (5) Elevated bilirubin Is this a current diagnosis for this admission?: Yes Plan: 07/14/2018-most likely from hemolysis. Continue to monitor. (6) History of DVT (deep vein thrombosis) Is this a current diagnosis for this admission?: Yes Plan: 07/14/2018-patient has a history of DVT. Currently on Xarelto. (7) Elevated liver function tests Is this a current diagnosis for this admission?: Yes Plan: 07/14/2018-currently with transaminitis. Reviewing her old labs, her transaminases have been higher during a previous sickle cell crisis. Transaminases are improved from admission but still slightly elevated. We will continue to monitor. - Time Time Spent with patient: 15-24 minutes Medications reviewed and adjusted accordingly: Yes Anticipated discharge: Home
[2018-07-15 06:51] LABS: HEMATOCRIT 18.5 % (36.0-47.0); MEAN CORPUSCULAR HEMOGLOBIN 39.4 pg (27.0-33.4); MEAN CORPUSCULAR VOLUME 105 fl (80-97); PLATELET COUNT 253 10^3/uL (150-450); RED BLOOD COUNT 1.76 10^6/uL (3.72-5.28); RED CELL DISTRIBUTION WIDTH 19.2 % (11.5-14.0); WHITE BLOOD COUNT 11.6 10^3/uL (4.0-10.5)
[2018-07-15 07:45] LABS: MEAN CORPUSCULAR HGB CONC 37.6 g/dL (32.0-36.0)
[2018-07-15 07:48] LABS: HEMOGLOBIN 6.9 g/dL (12.0-15.5)
[2018-07-15 07:52] LABS: ABSOLUTE LYMPHOCYTES# (MANUAL) 3.4 10^3/uL (0.5-4.7); ABSOLUTE MONOCYTES # (MANUAL) 0.6 10^3/uL (0.1-1.4); ABSOLUTE NEUTROPHILS# (MANUAL) 6.5 10^3/uL (1.7-8.2); BASOPHILS % (MANUAL) 2 % (0-2); EOSINOPHILS % (MANUAL) 8 % (0-6); LYMPHOCYTES % (MANUAL) 28 % (13-45); METAMYELOCYTES % (MANUAL) 1 % (0); MONOCYTES % (MANUAL) 5 % (3-13); NUCLEATED RED BLOOD CELLS 32 /100 WBC (0); SEGMENTED NEUTROPHILS % (MAN) 55 % (42-78); TOTAL CELLS COUNTED 100
[2018-07-15 07:56] LABS: ANISOCYTOSIS 2+; PAPPENHEIMER BODIES PRESENT; POIKILOCYTOSIS 2+; POLYCHROMASIA 2+; SCHISTOCYTES 1+; SICKLE RED CELLS 1+; SMUDGE CELLS PRESENT; TARGET CELLS 1+; TEAR DROP CELLS 1+
[2018-07-15 08:01] LABS: PLATELET COMMENT ADEQUATE
--- NOTE | 2018-07-15 08:40 | PDOC PROGRESS REPORT ---
Subjective Progress Note for:: 07/15/18 Subjective:: Patient has been up walking in [place]. She states that the pain is better, but she has not had BM for several days. She did not receive any Miralax yesterday. ROS: No nausea. No dyspnea. Reason For Visit: SS PAIN CRISIS, ANEMIA Physical Exam Vital Signs: Temp Pulse Resp BP Pulse Ox 98.2 F 91 16 120/78 98 07/15/18 04:00 07/15/18 04:00 07/15/18 04:00 07/15/18 04:00 07/15/18 04:00 Intake & Output 07/14/18 07/15/18 07/16/18 06:59 06:59 06:59 Intake Total 2190 3288 Balance 2190 3288 Weight 63.5 kg 63.5 kg General appearance: PRESENT: no acute distress, well-developed, well-nourished Head exam: PRESENT: normocephalic Respiratory exam: PRESENT: clear to auscultation samaria, unlabored Cardiovascular exam: PRESENT: RRR Extremities exam: ABSENT: pedal edema Neurological exam: PRESENT: alert, awake, normal gait Psychiatric exam: PRESENT: appropriate affect Skin exam: PRESENT: normal color Results Laboratory Results: 07/15/18 06:25 07/14/18 05:40 07/15/18 06:25 WBC 11.6 H RBC 1.76 L Hgb 6.9 L Hct 18.5 L MCV 105 H MCH 39.4 H MCHC 37.6 H RDW 19.2 H Plt Count 253 Seg Neutrophils % Not Reportable Lymphocytes % Not Reportable Monocytes % Not Reportable Eosinophils % Not Reportable Basophils % Not Reportable Absolute Neutrophils Not Reportable Absolute Lymphocytes Not Reportable Absolute Monocytes Not Reportable Absolute Eosinophils Not Reportable Absolute Basophils Not Reportable 07/12/18 21:33 Troponin I 0.015 Impressions: Chest X-Ray 07/12/18 21:16 IMPRESSION: 1. No acute cardiothoracic abnormality. 2. Chronic findings of the spine, suggesting sickle cell disease 3. Previous cholecystectomy 4. Right IJ port remains in place. Assessment & Plan - Diagnosis (1) Sickle cell crisis Is this a current diagnosis for this admission?: Yes Plan: Continue fluids, Oxygen, and pain medications without changes. (2) History of DVT (deep vein thrombosis) Is this a current diagnosis for this admission?: Yes Plan: On blood thinners. - Plan Summary Plan Summary: Encouraged nutrition and exercise. Consider weaning pain meds. I changed colace to Saima-S and she has MOM and Miralax PRN.
[2018-07-15] MEDS ORDERED: POLYETHYLENE GLYCOL 3350 POWDER 17 GM/1 PACKET PO SCH (10:00)
[2018-07-15] MEDS: SENNOSIDES/DOCUSATE 8.6-50 MG 1 EACH TABLET PO SCH ×2 (10:13→19:28)
[2018-07-15] MEDS: FOLIC ACID 1 MG TABLET PO SCH (10:13)
[2018-07-15] MEDS: HYDROXYUREA 500 MG CAPSULE PO SCH ×2 (10:14→19:28)
[2018-07-15] MEDS: RIVAROXABAN 10 MG TABLET PO SCH (16:13)
[2018-07-15] MEDS: DIPHENHYDRAMINE HCL 50 MG CAPSULE PO PRN (20:52)
[2018-07-15] MEDS: ARIPIPRAZOLE 5 MG TABLET PO SCH (21:38)
[2018-07-15] MEDS: ESCITALOPRAM OXALATE 10 MG TABLET PO SCH (21:39)
[2018-07-16] MEDS: HYDROMORPHONE HCL INJ/PF 2 MG/ML AMPULE IV PRN ×8 (02:02→21:49)
[2018-07-16] MEDS: DIPHENHYDRAMINE HCL 50 MG CAPSULE PO PRN ×3 (04:57→21:49)
--- NOTE | 2018-07-16 06:49 | PDOC PROGRESS REPORT ---
Subjective Progress Note for:: 07/15/18 Subjective:: Still with pain. Was walking around earlier. Reason For Visit: SS PAIN CRISIS, ANEMIA Physical Exam Vital Signs: Temp Pulse Resp BP Pulse Ox 98.4 F 88 16 107/57 L 94 07/15/18 12:06 07/15/18 12:06 07/15/18 12:06 07/15/18 12:06 07/15/18 12:06 Intake & Output 07/14/18 07/15/18 07/16/18 06:59 06:59 06:59 Intake Total 2190 3288 1000 Balance 2190 3288 1000 Weight 63.5 kg 63.5 kg General appearance: PRESENT: cooperative, mild distress, well-developed Head exam: PRESENT: atraumatic, normocephalic Eye exam: PRESENT: conjunctiva pale Respiratory exam: PRESENT: clear to auscultation samaria, symmetrical, unlabored. ABSENT: accessory muscle use, rales, rhonchi, tachypnea, wheezes Cardiovascular exam: PRESENT: RRR, +S1, +S2, systolic murmur - 2/6 GI/Abdominal exam: PRESENT: normal bowel sounds, soft. ABSENT: distended, tenderness Rectal exam: PRESENT: deferred Gentrourinary exam: ABSENT: indwelling catheter Neurological exam: PRESENT: alert, awake, oriented to person, oriented to place, oriented to time, oriented to situation, CN II-XII grossly intact Psychiatric exam: PRESENT: appropriate affect. ABSENT: agitated, anxious Focused psych exam: ABSENT: delusional, restlessness Results Laboratory Results: 07/15/18 06:25 07/14/18 05:40 07/15/18 06:25 WBC 11.6 H RBC 1.76 L Hgb 6.9 L Hct 18.5 L MCV 105 H MCH 39.4 H MCHC 37.6 H RDW 19.2 H Plt Count 253 Seg Neutrophils % Not Reportable Lymphocytes % Not Reportable Monocytes % Not Reportable Eosinophils % Not Reportable Basophils % Not Reportable Absolute Neutrophils Not Reportable Absolute Lymphocytes Not Reportable Absolute Monocytes Not Reportable Absolute Eosinophils Not Reportable Absolute Basophils Not Reportable 07/12/18 21:33 Troponin I 0.015 Impressions: Chest X-Ray 07/12/18 21:16 IMPRESSION: 1. No acute cardiothoracic abnormality. 2. Chronic findings of the spine, suggesting sickle cell disease 3. Previous cholecystectomy 4. Right IJ port remains in place. Assessment and Plan - Diagnosis (1) Acute sickle cell crisis Is this a current diagnosis for this admission?: Yes Plan: 07/14/2018-patient with acute sickle cell crisis. Please also see hematology note. IV fluids and pain management. Patient continues on her hydroxyurea. 07/15/2018-the patient is hemoglobin dropped below 7 today. It was 6.9. She was seen by hematology. No transfusion ordered as yet. 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 Hematology will recheck tomorrow and decide if transfusion is required. 07/15/2018-hemoglobin did decrease more to 6.9. Please see hematology note as well. No transfusion at this time. (3) Back pain Qualifiers: Back pain location: back pain in unspecified location Chronicity: chronic Back pain laterality: unspecified Qualified Code(s): M54.9 - Dorsalgia, uns pecified; G89.29 - Other chronic pain Is this a current diagnosis for this admission?: Yes Plan: 07/14/2018-this is the typical location of her pain during a crisis. She currently has intravenous Dilaudid available. Monitor for opioid-induced constipation. 07/15/2018-continue aggressive use of Dilaudid. (4) Leukocytosis Qualifiers: Leukocytosis type: unspecified Qualified Code(s): D72.829 - Elevated white blood cell count, unspecified Is this a current diagnosis for this admission?: Yes Plan: 07/14/2018-White blood cell count is improving it is down to 13.4 from 18. 07/15/2018-white blood cell count continues to improve today it is down to 11.4. Continue to monitor. (5) Elevated bilirubin Is this a current diagnosis for this admission?: Yes Plan: 07/14/2018-most likely from hemolysis. Continue to monitor. 07/15/2018-bilirubin was improving. Will monitor occasionally. This is a long- standing chronic issue for this patient. (6) History of DVT (deep vein thrombosis) Is this a current diagnosis for this admission?: Yes Plan: 07/14/2018-patient has a history of DVT. Currently on Xarelto. 07/15/2018-continue anticoagulation (7) Elevated liver function tests Is this a current diagnosis for this admission?: Yes Plan: 07/14/2018-currently with transaminitis. Reviewing her old labs, her transaminas es have been higher during a previous sickle cell crisis. Transaminases are improved from admission but still slightly elevated. We will continue to monitor. 07/15/2018-continue to monitor intermittently - Time Time Spent with patient: 15-24 minutes Medications reviewed and adjusted accordingly: Yes Anticipated discharge: Home
--- NOTE | 2018-07-16 07:59 | PDOC PROGRESS REPORT ---
Subjective Progress Note for:: 07/16/18 Subjective:: Patient still in pain. She did not get up to walk yesterday. ROS: No BM. No dyspnea. Nurses report she is receiving PRN meds every 2 hours. Reason For Visit: SS PAIN CRISIS, ANEMIA Physical Exam Vital Signs: Temp Pulse Resp BP Pulse Ox 97.8 F 94 16 130/84 H 94 07/16/18 03:43 07/16/18 03:43 07/16/18 03:43 07/16/18 03:43 07/16/18 03:43 Intake & Output 07/15/18 07/16/18 07/17/18 06:59 06:59 06:59 Intake Total 3288 3200 Balance 3288 3200 Weight 63.5 kg 63.5 kg General appearance: PRESENT: well-developed, well-nourished Head exam: PRESENT: normocephalic Extremities exam: ABSENT: pedal edema Neurological exam: PRESENT: alert, awake, other - Sleepy Skin exam: PRESENT: normal color Results Laboratory Results: 07/15/18 06:25 07/14/18 05:40 07/15/18 06:25 WBC 11.6 H RBC 1.76 L Hgb 6.9 L Hct 18.5 L MCV 105 H MCH 39.4 H MCHC 37.6 H RDW 19.2 H Plt Count 253 07/12/18 21:33 Troponin I 0.015 Impressions: Chest X-Ray 07/12/18 21:16 IMPRESSION: 1. No acute cardiothoracic abnormality. 2. Chronic findings of the spine, suggesting sickle cell disease 3. Previous cholecystectomy 4. Right IJ port remains in place. Assessment & Plan - Diagnosis (1) Sickle cell crisis Is this a current diagnosis for this admission?: Yes Plan: Will decrease dilaudid today to 2 mg instead of 3 mg for each dose. I have AGAIN encouraged her to wear her oxygen and walk in hallway. (2) History of DVT (deep vein thrombosis) Is this a current diagnosis for this admission?: Yes (3) Constipation Is this a current diagnosis for this admission?: Yes Plan: Will increase Miralax to TID until BM. Continue [place] S
[2018-07-16] MEDS: POLYETHYLENE GLYCOL 3350 POWDER 17 GM/1 PACKET PO SCH ×4 (09:39→17:46)
[2018-07-16] MEDS: SENNOSIDES/DOCUSATE 8.6-50 MG 1 EACH TABLET PO SCH ×2 (09:39→17:46)
[2018-07-16] MEDS: HYDROXYUREA 500 MG CAPSULE PO SCH ×2 (09:39→17:45)
[2018-07-16] MEDS: FOLIC ACID 1 MG TABLET PO SCH (09:39)
[2018-07-16 10:33] LABS: ABSOLUTE RETICS # 0.174 10^6/uL (0.028-0.122); HEMATOCRIT 17.2 % (36.0-47.0); MEAN CORPUSCULAR HEMOGLOBIN 39.8 pg (27.0-33.4); MEAN CORPUSCULAR VOLUME 105 fl (80-97); PLATELET COUNT 265 10^3/uL (150-450); RED BLOOD COUNT 1.63 10^6/uL (3.72-5.28); RETICULOCYTE COUNT (AUTO) 10.65 % (0.66-2.85); WHITE BLOOD COUNT 9.6 10^3/uL (4.0-10.5)
[2018-07-16 11:25] LABS: HEMOGLOBIN 6.5 g/dL (12.0-15.5)
[2018-07-16 11:42] LABS: MEAN CORPUSCULAR HGB CONC 37.9 g/dL (32.0-36.0)
[2018-07-16] MEDS: NORMAL SALINE 1000 ML 1,000 ML IV PRN (12:36)
[2018-07-16] MEDS ORDERED: NORMAL SALINE 250 ML IV PRN ×2 (16:59)
[2018-07-16] MEDS: RIVAROXABAN 10 MG TABLET PO SCH (17:46)
[2018-07-16] MEDS: ESCITALOPRAM OXALATE 10 MG TABLET PO SCH (21:49)
[2018-07-16] MEDS: ARIPIPRAZOLE 5 MG TABLET PO SCH (21:49)
[2018-07-17] MEDS: HYDROMORPHONE HCL INJ/PF 2 MG/ML AMPULE IV PRN ×9 (00:30→22:27)
[2018-07-17] MEDS: DIPHENHYDRAMINE HCL 50 MG CAPSULE PO PRN ×2 (04:48→20:02)
[2018-07-17] MEDS: NORMAL SALINE 1000 ML 1,000 ML IV PRN ×2 (06:57→17:24)
[2018-07-17 09:22] LABS: MEAN CORPUSCULAR HEMOGLOBIN 36.7 pg (27.0-33.4); MEAN CORPUSCULAR HGB CONC 36.4 g/dL (32.0-36.0); RED BLOOD COUNT 2.08 10^6/uL (3.72-5.28); RED CELL DISTRIBUTION WIDTH 22.3 % (11.5-14.0)
[2018-07-17 09:31] LABS: HEMOGLOBIN 7.6 g/dL (12.0-15.5)
[2018-07-17 09:32] LABS: MEAN CORPUSCULAR VOLUME 101 fl (80-97)
[2018-07-17 09:41] LABS: ANION GAP 7 (5-19); BLOOD UREA NITROGEN 4 mg/dL (7-20); CALCIUM 8.7 mg/dL (8.4-10.2); CARBON DIOXIDE 29 mmol/L (22-30); CHLORIDE 104 mmol/L (98-107); GLUCOSE 78 mg/dL (75-110); SODIUM 139.9 mmol/L (137-145)
[2018-07-17 09:52] LABS: ABSOLUTE LYMPHOCYTES# (MANUAL) 3.3 10^3/uL (0.5-4.7); ABSOLUTE MONOCYTES # (MANUAL) 0.6 10^3/uL (0.1-1.4); ABSOLUTE NEUTROPHILS# (MANUAL) 5.5 10^3/uL (1.7-8.2); BAND NEUTROPHILS % (MANUAL) 1 % (3-5); BASOPHILS % (MANUAL) 1 % (0-2); EOSINOPHILS % (MANUAL) 14 % (0-6); LYMPHOCYTES % (MANUAL) 30 % (13-45); METAMYELOCYTES % (MANUAL) 1 % (0); MONOCYTES % (MANUAL) 5 % (3-13); NUCLEATED RED BLOOD CELLS 9 /100 WBC (0); SEGMENTED NEUTROPHILS % (MAN) 48 % (42-78); TOTAL CELLS COUNTED 100
[2018-07-17 10:00] LABS: SCHISTOCYTES 2+
[2018-07-17 10:01] LABS: SICKLE RED CELLS 1+
[2018-07-17 10:03] LABS: POLYCHROMASIA 1+
[2018-07-17 10:05] LABS: ANISOCYTOSIS 3+; OVALOCYTES 1+; POIKILOCYTOSIS 2+
[2018-07-17 10:06] LABS: TARGET CELLS 2+
[2018-07-17 10:11] LABS: PAPPENHEIMER BODIES PRESENT
[2018-07-17 10:13] LABS: HYPOCHROMASIA 1+
[2018-07-17 10:16] LABS: STOMATOCYTES 1+
[2018-07-17 10:17] LABS: PLATELET CLUMPS PRESENT; PLATELET COMMENT ADEQUATE
[2018-07-17 10:21] LABS: PLATELET COUNT 291 10^3/uL (150-450)
[2018-07-17] MEDS: FOLIC ACID 1 MG TABLET PO SCH (10:52)
[2018-07-17] MEDS: HYDROXYUREA 500 MG CAPSULE PO SCH ×2 (10:52→17:24)
[2018-07-17] MEDS: POLYETHYLENE GLYCOL 3350 POWDER 17 GM/1 PACKET PO SCH ×3 (10:56→17:47)
[2018-07-17] MEDS: SENNOSIDES/DOCUSATE 8.6-50 MG 1 EACH TABLET PO SCH ×2 (10:56→17:47)
--- NOTE | 2018-07-17 11:39 | PDOC PROGRESS REPORT ---
Subjective Progress Note for:: 07/17/18 Subjective:: Patient still having considerable pain, increasing her Dilaudid today. Reason For Visit: SS PAIN CRISIS, ANEMIA Physical Exam Vital Signs: Temp Pulse Resp BP Pulse Ox 98.5 F 64 16 121/59 L 100 07/17/18 08:09 07/17/18 08:09 07/17/18 08:09 07/17/18 08:09 07/17/18 08:09 Intake & Output 07/16/18 07/17/18 07/18/18 06:59 06:59 06:59 Intake Total 3200 2942 Balance 3200 2942 Weight 63.5 kg 63.5 kg General appearance: PRESENT: no acute distress, well-developed, well-nourished Head exam: PRESENT: atraumatic, normocephalic Eye exam: PRESENT: conjunctiva pink, EOMI, PERRLA. ABSENT: scleral icterus Ear exam: PRESENT: normal external ear exam Mouth exam: PRESENT: moist, tongue midline Neck exam: ABSENT: carotid bruit, JVD, lymphadenopathy, thyromegaly Respiratory exam: PRESENT: clear to auscultation samaria. ABSENT: rales, rhonchi, wheezes Cardiovascular exam: PRESENT: RRR. ABSENT: diastolic murmur, rubs, systolic murmur Pulses: PRESENT: normal dorsalis pedis pul Vascular exam: PRESENT: normal capillary refill GI/Abdominal exam: PRESENT: normal bowel sounds, soft. ABSENT: distended, guarding, mass, organolmegaly, rebound, tenderness Rectal exam: PRESENT: deferred Extremities exam: PRESENT: full ROM. ABSENT: calf tenderness, clubbing, pedal edema Neurological exam: PRESENT: alert, awake, oriented to person, oriented to place, oriented to time, oriented to situation, CN II-XII grossly intact. ABSENT: motor sensory deficit Psychiatric exam: PRESENT: appropriate affect, normal mood. ABSENT: homicidal ideation, suicidal ideation Skin exam: PRESENT: dry, intact, warm. ABSENT: cyanosis, rash Results Laboratory Results: 07/17/18 08:45 07/17/18 08:45 07/16/18 07/16/18 07/17/18 09:45 19:23 08:45 WBC 9.6 RBC 1.63 L Hgb 6.5 L Hct 17.2 L MCV 105 H MCH 39.8 H MCHC 37.9 H RDW 21.0 H Plt Count 265 Seg Neutrophils % Lymphocytes % Monocytes % Eosinophils % Basophils % Absolute Neutrophils Absolute Lymphocytes Absolute Monocytes Absolute Eosinophils Absolute Basophils Retic Count (auto) 10.65 H Absolute Retic 0.174 H Sodium 139.9 Potassium 4.0 Chloride 104 Carbon Dioxide 29 Anion Gap 7 BUN 4 L Creatinine 0.45 L Est GFR ( Amer) > 60 Est GFR (Non-Af Amer) > 60 Glucose 78 Calcium 8.7 Blood Type O POSITIVE Antibody Screen NEGATIVE 07/17/18 08:45 WBC 11.0 H RBC 2.08 L Hgb 7.6 L Hct 21.0 L MCV 101 H D MCH 36.7 H MCHC 36.4 H RDW 22.3 H Plt Count 291 Seg Neutrophils % Not Reportable Lymphocytes % Not Reportable Monocytes % Not Reportable Eosinophils % Not Reportable Basophils % Not Reportable Absolute Neutrophils Not Reportable Absolute Lymphocytes Not Reportable Absolute Monocytes Not Reportable Absolute Eosinophils Not Reportable Absolute Basophils Not Reportable Retic Count (auto) Absolute Retic Sodium Potassium Chloride Carbon Dioxide Anion Gap BUN Creatinine Est GFR ( Amer) Est GFR (Non-Af Amer) Glucose Calcium Blood Type Antibody Screen 07/12/18 21:33 Troponin I 0.015 Impressions: Chest X-Ray 07/12/18 21:16 IMPRESSION: 1. No acute cardiothoracic abnormality. 2. Chronic findings of the spine, suggesting sickle cell disease 3. Previous cholecystectomy 4. Right IJ port remains in place. Assessment & Plan - Diagnosis (1) Sickle cell crisis Is this a current diagnosis for this admission?: Yes Plan: Continuing other supportive measures, continue current pain regimen, increase Dilaudid today. Continue other supportive measures. This crisis is certainly more severe than the one she just underwent, bilirubin is much higher on this admission, LDH much higher so I think she is going to require several more days of inpatient stay with high pain control. 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 If it falls below 7 again in the next 48 hours, would give 1 more unit. Her baseline hemoglobin is actually more like 9-10. - Time Time Spent with patient: 35 or more minutes - Inpatient Certification Based on my medical assessment, after consideration of the patient's comorbidities, presenting symptoms, or acuity I expect that the services needed warrant INPATIENT care.: Yes I certify that my determination is in accordance with my understanding of Medicare's requirements for reasonable and necessary INPATIENT services [42 CFR 412.3e].: Yes Medical Necessity: Need For IV Fluids, Need for Pain Control
--- NOTE | 2018-07-17 15:33 | PDOC PROGRESS REPORT ---
Subjective Progress Note for:: 07/16/18 Subjective:: Patient is still having pain. She has been ambulating in the hallway. Reason For Visit: SS PAIN CRISIS, ANEMIA Physical Exam Vital Signs: Temp Pulse Resp BP Pulse Ox 98.9 F 95 16 112/51 L 99 07/16/18 12:36 07/16/18 14:00 07/16/18 12:36 07/16/18 12:36 07/16/18 12:36 Intake & Output 07/15/18 07/16/18 07/17/18 06:59 06:59 06:59 Intake Total 3288 3200 1000 Balance 3288 3200 1000 Weight 63.5 kg 63.5 kg General appearance: PRESENT: no acute distress, cooperative, well-developed Head exam: PRESENT: atraumatic, normocephalic Respiratory exam: PRESENT: clear to auscultation samaria, symmetrical, unlabored. ABSENT: accessory muscle use, crackles, rales, rhonchi, tachypnea, wheezes Cardiovascular exam: PRESENT: RRR, +S1, +S2, systolic murmur - 3/6 GI/Abdominal exam: PRESENT: normal bowel sounds, soft. ABSENT: distended, tenderness Rectal exam: PRESENT: deferred Extremities exam: ABSENT: pedal edema Neurological exam: PRESENT: alert, awake, oriented to person, oriented to place, oriented to time, oriented to situation, CN II-XII grossly intact Psychiatric exam: PRESENT: appropriate affect, normal mood. ABSENT: agitated, anxious Focused psych exam: ABSENT: delusional, restlessness Results Laboratory Results: 07/16/18 09:45 07/14/18 05:40 07/16/18 09:45 WBC 9.6 RBC 1.63 L Hgb 6.5 L Hct 17.2 L MCV 105 H MCH 39.8 H MCHC 37.9 H RDW 21.0 H Plt Count 265 Retic Count (auto) 10.65 H Absolute Retic 0.174 H 07/12/18 21:33 Troponin I 0.015 Impressions: Chest X-Ray 07/12/18 21:16 IMPRESSION: 1. No acute cardiothoracic abnormality. 2. Chronic findings of the spine, suggesting sickle cell disease 3. Previous cholecystectomy 4. Right IJ port remains in place. Assessment and Plan - Diagnosis (1) Acute sickle cell crisis Is this a current diagnosis for this admission?: Yes Plan: 07/14/2018-patient with acute sickle cell crisis. Please also see hematology note. IV fluids and pain management. Patient continues on her hydroxyurea. 07/15/2018-the patient is hemoglobin dropped below 7 today. It was 6.9. She was seen by hematology. No transfusion ordered as yet. 07/16/2018-hemoglobin is slightly lower again. No transfusion yet. The patient did report the parameters that her primary geographic information system analyst uses. We will check it again tomorrow. Continue hydroxyurea. 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 Hematology will recheck tomorrow and decide if transfusion is required. 07/15/2018-hemoglobin did decrease more to 6.9. Please see hematology note as well. No transfusion at this time. 07/16/2018-please see hematology note. Continue to monitor. Defer transfusion order to hematology. (3) Back pain Qualifiers: Back pain location: back pain in unspecified location Chronicity: chronic Back pain laterality: unspecified Qualified Code(s): M54.9 - Dorsalgia, unspecified; G89.29 - Other chronic pain Is this a current diagnosis for this admission?: Yes Plan: 07/14/2018-this is the typical location of her pain during a crisis. She currently has intravenous Dilaudid available. Monitor for opioid-induced constipation. 07/15/2018-continue aggressive use of Dilaudid. 07/16/2018-continue current pain management regimen (4) Leukocytosis Qualifiers: Leukocytosis type: unspecified Qualified Code(s): D72.829 - Elevated white blood cell count, unspecified Is this a current diagnosis for this admission?: Yes Plan: 07/14/2018-White blood cell count is improving it is down to 13.4 from 18. 07/15/2018-white blood cell count continues to improve today it is down to 11.4. Continue to monitor. 07/16/2018-white blood cell count is normal at 9.6. Continue to monitor. (5) Elevated bilirubin Is this a current diagnosis for this admission?: Yes Plan: 07/14/2018-most likely from hemolysis. Continue to monitor. 07/15/2018-bilirubin was improving. Will monitor occasionally. This is a long- standing chronic issue for this patient. 07/16/2018-reviewing history this seems to be a chronic issue (6) History of DVT (deep vein thrombosis) Is this a current diagnosis for this admission?: Yes Plan: 07/14/2018-patient has a history of DVT. Currently on Xarelto. 07/15/2018-continue anticoagulation 07/16/2018-continue anticoagulation. No evidence of bleeding. (7) Elevated liver function tests Is this a current diagnosis for this admission?: Yes Plan: 07/14/2018-currently with transaminitis. Reviewing her old labs, her transaminases have been higher during a previous sickle cell crisis. Transaminases are improved from admission but still slightly elevated. We will continue to monitor. 07/15/2018-continue to monitor intermittently 07/16/2018-transaminases were slowly improving. Monitor intermittently. - Time Time Spent with patient: 15-24 minutes Medications reviewed and adjusted accordingly: Yes Anticipated discharge: Home
--- NOTE | 2018-07-17 15:39 | PDOC PROGRESS REPORT ---
Subjective Progress Note for:: 07/17/18 Subjective:: The patient is sitting on the edge of the bed eating lunch. Still reports significant pain. After discussing the case with her primary blanket cutting machine operator I did order a unit of packed red blood cells yesterday. She feels slightly better. Reason For Visit: SS PAIN CRISIS, ANEMIA Physical Exam Vital Signs: Temp Pulse Resp BP Pulse Ox 99.1 F 80 16 126/72 H 95 07/17/18 12:16 07/17/18 12:16 07/17/18 12:16 07/17/18 12:16 07/17/18 12:16 Intake & Output 07/16/18 07/17/18 07/18/18 06:59 06:59 06:59 Intake Total 3200 2942 Balance 3200 2942 Weight 63.5 kg 63.5 kg General appearance: PRESENT: no acute distress, cooperative, well-developed Head exam: PRESENT: atraumatic, normocephalic Ear exam: PRESENT: normal external ear exam Respiratory exam: PRESENT: clear to auscultation samaria, symmetrical, unlabored. ABSENT: accessory muscle use, rales, rhonchi, tachypnea, wheezes Cardiovascular exam: PRESENT: RRR, +S1, +S2, systolic murmur - 3 of 6 GI/Abdominal exam: PRESENT: normal bowel sounds, soft. ABSENT: distended, tenderness Gentrourinary exam: ABSENT: indwelling catheter Extremities exam: ABSENT: pedal edema Musculoskeletal exam: PRESENT: ambulatory Neurological exam: PRESENT: alert, awake, oriented to person, oriented to place, oriented to time, oriented to situation, CN II-XII grossly intact Psychiatric exam: PRESENT: flat affect. ABSENT: agitated, anxious Focused psych exam: ABSENT: delusional, restlessness Results Laboratory Results: 07/17/18 08:45 07/17/18 08:45 07/16/18 07/17/18 07/17/18 19:23 08:45 08:45 WBC 11.0 H RBC 2.08 L Hgb 7.6 L Hct 21.0 L MCV 101 H D MCH 36.7 H MCHC 36.4 H RDW 22.3 H Plt Count 291 Seg Neutrophils % Not Reportable Lymphocytes % Not Reportable Monocytes % Not Reportable Eosinophils % Not Reportable Basophils % Not Reportable Absolute Neutrophils Not Reportable Absolute Lymphocytes Not Reportable Absolute Monocytes Not Reportable Absolute Eosinophils Not Reportable Absolute Basophils Not Reportable Sodium 139.9 Potassium 4.0 Chloride 104 Carbon Dioxide 29 Anion Gap 7 BUN 4 L Creatinine 0.45 L Est GFR ( Amer) > 60 Est GFR (Non-Af Amer) > 60 Glucose 78 Calcium 8.7 Blood Type O POSITIVE Antibody Screen NEGATIVE 07/12/18 21:33 Troponin I 0.015 Impressions: Chest X-Ray 07/12/18 21:16 IMPRESSION: 1. No acute cardiothoracic abnormality. 2. Chronic findings of the spine, suggesting sickle cell disease 3. Previous cholecystectomy 4. Right IJ port remains in place. Assessment and Plan - Diagnosis (1) Acute sickle cell crisis Is this a current diagnosis for this admission?: Yes Plan: 07/14/2018-patient with acute sickle cell crisis. Please also see hematology note. IV fluids and pain management. Patient continues on her hydroxyurea. 07/15/2018-the patient is hemoglobin dropped below 7 today. It was 6.9. She was seen by hematology. No transfusion ordered as yet. 07/16/2018-hemoglobin is slightly lower again. No transfusion yet. The patient did report the parameters that her primary blanket cutting machine operator uses. We will check it again tomorrow. Continue hydroxyurea. 07/17/2018-continuing on IV fluids, hydroxyurea and pain management. Please also see hematology note. 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 Hematology will recheck tomorrow and decide if transfusion is required. 07/15/2018-hemoglobin did decrease more to 6.9. Please see hematology note as well. No transfusion at this time. 07/16/2018-please see hematology note. Continue to monitor. Defer transfusion order to hematology. 07/17/2018-I did order a unit of packed red blood cells yesterday afternoon after discussing the case with the primary blanket cutting machine operator. Patient feels slightly better today. No additional unit ordered today but will recheck hemoglobin tomorrow. (3) Back pain Qualifiers: Back pain location: back pain in unspecified location Chronicity: chronic Back pain laterality: unspecified Qualified Code(s): M54.9 - Dorsalgia, unspecified; G89.29 - Other chronic pain Is this a current diagnosis for this admission?: Yes Plan: 07/14/2018-this is the typical location of her pain during a crisis. She currently has intravenous Dilaudid available. Monitor for opioid-induced constipation. 07/15/2018-continue aggressive use of Dilaudid. 07/16/2018-continue current pain management regimen 07/17/2018-I did check with the patient. She uses Dilaudid at home. With this medication available consider discharge to home in the next day or so. (4) Leukocytosis Qualifiers: Leukocytosis type: unspecified Qualified Code(s): D72.829 - Elevated white blood cell count, unspecified Is this a current diagnosis for this admission?: Yes Plan: 07/14/2018-White blood cell count is improving it is down to 13.4 from 18. 07/15/2018-white blood cell count continues to improve today it is down to 11.4. Continue to monitor. 07/16/2018-white blood cell count is normal at 9.6. Continue to monitor. 07/17/2018-the white blood cell count was normal yesterday and is slightly higher today. Continue to monitor. This is not a worrisome change. It could be reaction to the transfusion. (5) Elevated bilirubin Is this a current diagnosis for this admission?: Yes Plan: 07/14/2018-most likely from hemolysis. Continue to monitor. 07/15/2018-bilirubin was improving. Will monitor occasionally. This is a long- standing chronic issue for this patient. 07/16/2018-reviewing history this seems to be a chronic issue 07/17/2018-as above (6) History of DVT (deep vein thrombosis) Is this a current diagnosis for this admission?: Yes Plan: 07/14/2018-patient has a history of DVT. Currently on Xarelto. 07/15/2018-continue anticoagulation 07/16/2018-continue anticoagulation. No evidence of bleeding. 07/17/2018-as above (7) Elevated liver function tests Is this a current diagnosis for this admission?: Yes Plan: 07/14/2018-currently with transaminitis. Reviewing her old labs, her transaminases have been higher during a previous sickle cell crisis. Transaminases are improved from admission but still slightly elevated. We will continue to monitor. 07/15/2018-continue to monitor intermittently 07/16/2018-transaminases were slowly improving. Monitor intermittently. 07/17/2018-as above - Time Time Spent with patient: 15-24 minutes Medications reviewed and adjusted accordingly: Yes Anticipated discharge: Home - Consider discharge to home with home management of pain
[2018-07-17] MEDS: RIVAROXABAN 10 MG TABLET PO SCH (17:24)
[2018-07-17] MEDS: ESCITALOPRAM OXALATE 10 MG TABLET PO SCH (22:27)
[2018-07-17] MEDS: ARIPIPRAZOLE 5 MG TABLET PO SCH (22:27)
[2018-07-18] MEDS: HYDROMORPHONE HCL INJ/PF 2 MG/ML AMPULE IV PRN ×7 (01:03→23:11)
[2018-07-18] MEDS: DIPHENHYDRAMINE HCL 50 MG CAPSULE PO PRN (03:28)
[2018-07-18] MEDS: NORMAL SALINE 1000 ML 1,000 ML IV PRN ×2 (03:28→14:39)
[2018-07-18 07:43] LABS: HEMATOCRIT 19.7 % (36.0-47.0); MEAN CORPUSCULAR HEMOGLOBIN 37.7 pg (27.0-33.4); MEAN CORPUSCULAR VOLUME 102 fl (80-97); PLATELET COUNT 301 10^3/uL (150-450); RED BLOOD COUNT 1.93 10^6/uL (3.72-5.28); RED CELL DISTRIBUTION WIDTH 22.7 % (11.5-14.0)
[2018-07-18 08:32] LABS: HEMOGLOBIN 7.3 g/dL (12.0-15.5)
[2018-07-18] MEDS: POLYETHYLENE GLYCOL 3350 POWDER 17 GM/1 PACKET PO SCH ×3 (10:33→17:13)
[2018-07-18] MEDS: HYDROXYUREA 500 MG CAPSULE PO SCH ×2 (10:34→17:11)
[2018-07-18] MEDS: FOLIC ACID 1 MG TABLET PO SCH (10:34)
[2018-07-18] MEDS: SENNOSIDES/DOCUSATE 8.6-50 MG 1 EACH TABLET PO SCH ×2 (10:34→17:13)
--- NOTE | 2018-07-18 10:41 | PDOC PROGRESS REPORT ---
Subjective Progress Note for:: 07/18/18 Subjective:: Patient states no change to her symptoms. However, she was able to have a Bowel Movement yesterday. She cannot tell any difference in pain after blood transfusion. Reason For Visit: SS PAIN CRISIS, ANEMIA Physical Exam Vital Signs: Temp Pulse Resp BP Pulse Ox 98.6 F 75 17 110/60 94 07/18/18 07:46 07/18/18 07:46 07/18/18 07:46 07/18/18 07:46 07/18/18 07:46 Intake & Output 07/17/18 07/18/18 07/19/18 06:59 06:59 06:59 Intake Total 2942 3300 Balance 2942 3300 Weight 63.5 kg 63.5 kg General appearance: PRESENT: well-developed, well-nourished Respiratory exam: PRESENT: clear to auscultation samaria, unlabored Cardiovascular exam: PRESENT: RRR Extremities exam: ABSENT: pedal edema Neurological exam: PRESENT: alert, awake Psychiatric exam: PRESENT: appropriate affect Skin exam: PRESENT: normal color Results Laboratory Results: 07/18/18 06:35 07/17/18 08:45 07/18/18 06:35 WBC 11.0 H RBC 1.93 L Hgb 7.3 L Hct 19.7 L MCV 102 H MCH 37.7 H MCHC 37.0 H RDW 22.7 H Plt Count 301 07/12/18 21:33 Troponin I 0.015 Impressions: Chest X-Ray 07/12/18 21:16 IMPRESSION: 1. No acute cardiothoracic abnormality. 2. Chronic findings of the spine, suggesting sickle cell disease 3. Previous cholecystectomy 4. Right IJ port remains in place. Assessment & Plan - Diagnosis (1) Sickle cell crisis Is this a current diagnosis for this admission?: Yes Plan: Continue Fluids, Oxygen, and pain meds. No changes today. Will hold off on further blood transfusion for now. (2) History of DVT (deep vein thrombosis) Is this a current diagnosis for this admission?: Yes Plan: Continue current anticoagulation (3) Constipation Is this a current diagnosis for this admission?: Yes Plan: Improved with miralax.
--- NOTE | 2018-07-18 13:00 | PDOC PROGRESS REPORT ---
Subjective Progress Note for:: 07/18/18 Subjective:: The patient is sitting in bed. She is preparing to shower. She does not appear to be in significant pain. Reason For Visit: SS PAIN CRISIS, ANEMIA Physical Exam Vital Signs: Temp Pulse Resp BP Pulse Ox 98.6 F 81 17 132/68 H 92 07/18/18 11:23 07/18/18 11:23 07/18/18 11:23 07/18/18 11:23 07/18/18 11:23 Intake & Output 07/17/18 07/18/18 07/19/18 06:59 06:59 06:59 Intake Total 2942 3300 Balance 2942 3300 Weight 63.5 kg 63.5 kg General appearance: PRESENT: no acute distress, cooperative, well-developed Head exam: PRESENT: atraumatic, normocephalic Eye exam: PRESENT: conjunctiva pale Ear exam: PRESENT: normal external ear exam Respiratory exam: PRESENT: clear to auscultation samaria, symmetrical, unlabored. ABSENT: accessory muscle use, rales, rhonchi, tachypnea, wheezes Cardiovascular exam: PRESENT: RRR, +S1, +S2, systolic murmur - 3/6 GI/Abdominal exam: PRESENT: normal bowel sounds, soft. ABSENT: distended, tenderness Rectal exam: PRESENT: deferred Neurological exam: PRESENT: alert, awake, oriented to person, oriented to place, oriented to time, oriented to situation, CN II-XII grossly intact Psychiatric exam: PRESENT: appropriate affect, normal mood. ABSENT: agitated, anxious Focused psych exam: ABSENT: delusional, restlessness Results Laboratory Results: 07/18/18 06:35 07/17/18 08:45 07/18/18 06:35 WBC 11.0 H RBC 1.93 L Hgb 7.3 L Hct 19.7 L MCV 102 H MCH 37.7 H MCHC 37.0 H RDW 22.7 H Plt Count 301 07/12/18 21:33 Troponin I 0.015 Impressions: Chest X-Ray 07/12/18 21:16 IMPRESSION: 1. No acute cardiothoracic abnormality. 2. Chronic findings of the spine, suggesting sickle cell disease 3. Previous cholecystectomy 4. Right IJ port remains in place. Assessment and Plan - Diagnosis (1) Acute sickle cell crisis Is this a current diagnosis for this admission?: Yes Plan: 07/14/2018-patient with acute sickle cell crisis. Please also see hematology note. IV fluids and pain management. Patient continues on her hydroxyurea. 07/15/2018-the patient is hemoglobin dropped below 7 today. It was 6.9. She was seen by hematology. No transfusion ordered as yet. 07/16/2018-hemoglobin is slightly lower again. No transfusion yet. The patient did report the parameters that her primary inspector [employer] uses. We will check it again tomorrow. Continue hydroxyurea. 07/17/2018-continuing on IV fluids, hydroxyurea and pain management. Please also see hematology note. 07/18/2017-continues IV fluids, hydroxyurea and pain management. Hemoglobin is slightly lower today at 7.3. Recheck hemoglobin tomorrow. 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 Hematology will recheck tomorrow and decide if transfusion is required. 07/15/2018-hemoglobin did decrease more to 6.9. Please see hematology note as well. No transfusion at this time. 07/16/2018-please see hematology note. Continue to monitor. Defer transfusion order to hematology. 07/17/2018-I did order a unit of packed red blood cells yesterday afternoon after discussing the case with the primary inspector [employer]. Patient feels slightly better today. No additional unit ordered today but will recheck hemoglobin tomorrow. 07/18/2017-as above. Please also see hematology note. (3) Back pain Qualifiers: Back pain location: back pain in unspecified location Chronicity: chronic Back pain laterality: unspecified Qualified Code(s): M54.9 - Dorsalgia, unspecified; G89.29 - Other chronic pain Is this a current diagnosis for this admission?: Yes Plan: 07/14/2018-this is the typical location of her pain during a crisis. She currently has intravenous Dilaudid available. Monitor for opioid-induced constipation. 07/15/2018-continue aggressive use of Dilaudid. 07/16/2018-continue current pain management regimen 07/17/2018-I did check with the patient. She uses Dilaudid at home. With this medication available consider discharge to home in the next day or so. 07/18/2018-Dilaudid is back to 2 mg as needed (4) Leukocytosis Qualifiers: Leukocytosis type: unspecified Qualified Code(s): D72.829 - Elevated white blood cell count, unspecified Is this a current diagnosis for this admission?: Yes Plan: 07/14/2018-White blood cell count is improving it is down to 13.4 from 18. 07/15/2018-white blood cell count continues to improve today it is down to 11.4. Continue to monitor. 07/16/2018-white blood cell count is normal at 9.6. Continue to monitor. 07/17/2018-the white blood cell count was normal yesterday and is slightly higher today. Continue to monitor. This is not a worrisome change. It could be reaction to the transfusion. 07/18/2018-white blood cell count 11,000. Stable. (5) Elevated bilirubin Is this a current diagnosis for this admission?: Yes Plan: 07/14/2018-most likely from hemolysis. Continue to monitor. 07/15/2018-bilirubin was improving. Will monitor occasionally. This is a long- standing chronic issue for this patient. 07/16/2018-reviewing history this seems to be a chronic issue 07/17/2018-as above 07/18/2018-no change (6) History of DVT (deep vein thrombosis) Is this a current diagnosis for this admission?: Yes Plan: 07/14/2018-patient has a history of DVT. Currently on Xarelto. 07/15/2018-continue anticoagulation 07/16/2018-continue anticoagulation. No evidence of bleeding. 07/17/2018-as above 07/18/2018-no change (7) Elevated liver function tests Is this a current diagnosis for this admission?: Yes Plan: 07/14/2018-currently with transaminitis. Reviewing her old labs, her trans aminases have been higher during a previous sickle cell crisis. Transaminases are improved from admission but still slightly elevated. We will continue to monitor. 07/15/2018-continue to monitor intermittently 07/16/2018-transaminases were slowly improving. Monitor intermittently. 07/17/2018-as above 07/18/2018-no change - Time Time Spent with patient: Less than 15 minutes Medications reviewed and adjusted accordingly: Yes Anticipated discharge: Home
[2018-07-18] MEDS: RIVAROXABAN 10 MG TABLET PO SCH (17:11)
[2018-07-18] MEDS: ARIPIPRAZOLE 5 MG TABLET PO SCH (23:09)
[2018-07-18] MEDS: ESCITALOPRAM OXALATE 10 MG TABLET PO SCH (23:11)
[2018-07-19] MEDS: NORMAL SALINE 1000 ML 1,000 ML IV PRN ×3 (00:56→23:26)
[2018-07-19] MEDS: HYDROMORPHONE HCL INJ/PF 2 MG/ML AMPULE IV PRN ×8 (01:24→22:30)
[2018-07-19 08:14] LABS: MEAN CORPUSCULAR HEMOGLOBIN 38.8 pg (27.0-33.4); MEAN CORPUSCULAR VOLUME 104 fl (80-97); PLATELET COUNT 379 10^3/uL (150-450); RED BLOOD COUNT 1.93 10^6/uL (3.72-5.28); RED CELL DISTRIBUTION WIDTH 22.8 % (11.5-14.0); WHITE BLOOD COUNT 9.5 10^3/uL (4.0-10.5)
[2018-07-19 08:22] LABS: ALANINE AMINOTRANSFERASE 37 U/L (9-52); ALBUMIN 3.3 g/dL (3.5-5.0); ALKALINE PHOSPHATASE 104 U/L (38-126); ASPARTATE AMINO TRANSFERASE 31 U/L (14-36); BILIRUBIN,DIRECT 1.4 mg/dL (0.0-0.4); BILIRUBIN,TOTAL 7.3 mg/dL (0.2-1.3); BLOOD UREA NITROGEN 6 mg/dL (7-20); CALCIUM 8.9 mg/dL (8.4-10.2); GLUCOSE 87 mg/dL (75-110); POTASSIUM 4.2 mmol/L (3.6-5.0); TOTAL PROTEIN 6.7 g/dL (6.3-8.2)
[2018-07-19 08:28] LABS: CARBON DIOXIDE 29 mmol/L (22-30); CHLORIDE 107 mmol/L (98-107); SODIUM 139.8 mmol/L (137-145)
[2018-07-19 08:33] LABS: ANION GAP 4 (5-19)
[2018-07-19 08:35] LABS: MEAN CORPUSCULAR HGB CONC 37.4 g/dL (32.0-36.0)
[2018-07-19 08:38] LABS: ABSOLUTE LYMPHOCYTES# (MANUAL) 3.5 10^3/uL (0.5-4.7); ABSOLUTE MONOCYTES # (MANUAL) 0.4 10^3/uL (0.1-1.4); ABSOLUTE NEUTROPHILS# (MANUAL) 4.8 10^3/uL (1.7-8.2); BASOPHILS % (MANUAL) 1 % (0-2); EOSINOPHILS % (MANUAL) 7 % (0-6); LYMPHOCYTES % (MANUAL) 37 % (13-45); MONOCYTES % (MANUAL) 4 % (3-13); NUCLEATED RED BLOOD CELLS 11 /100 WBC (0); SEGMENTED NEUTROPHILS % (MAN) 51 % (42-78); TOTAL CELLS COUNTED 100
[2018-07-19 08:43] LABS: ANISOCYTOSIS 3+; OVALOCYTES 1+; PLATELET COMMENT ADEQUATE; POIKILOCYTOSIS 2+; POLYCHROMASIA 1+; SICKLE RED CELLS SLIGHT; TARGET CELLS 2+
[2018-07-19 08:46] LABS: HEMOGLOBIN 7.5 g/dL (12.0-15.5)
[2018-07-19] MEDS: SENNOSIDES/DOCUSATE 8.6-50 MG 1 EACH TABLET PO SCH ×2 (10:41→18:00)
[2018-07-19] MEDS: FOLIC ACID 1 MG TABLET PO SCH (10:42)
[2018-07-19] MEDS: HYDROXYUREA 500 MG CAPSULE PO SCH ×2 (10:42→22:25)
[2018-07-19] MEDS: POLYETHYLENE GLYCOL 3350 POWDER 17 GM/1 PACKET PO SCH ×3 (10:42→18:00)
[2018-07-19] MEDS: DIPHENHYDRAMINE HCL 50 MG CAPSULE PO PRN (10:48)
--- NOTE | 2018-07-19 12:54 | PDOC PROGRESS REPORT ---
Subjective Progress Note for:: 07/19/18 Subjective:: Patient feeling better today, pain is less, today we will decrease her Dilaudid Reason For Visit: SS PAIN CRISIS, ANEMIA Physical Exam Vital Signs: Temp Pulse Resp BP Pulse Ox 98.4 F 66 19 117/59 L 99 07/18/18 23:16 07/19/18 02:00 07/18/18 23:16 07/18/18 23:16 07/18/18 23:16 Intake & Output 07/18/18 07/19/18 07/20/18 06:59 06:59 06:59 Intake Total 3300 4060 Balance 3300 4060 Weight 63.5 kg 64.5 kg General appearance: PRESENT: no acute distress, well-developed, well-nourished Head exam: PRESENT: atraumatic, normocephalic Eye exam: PRESENT: conjunctiva pink, EOMI, PERRLA. ABSENT: scleral icterus Ear exam: PRESENT: normal external ear exam Mouth exam: PRESENT: moist, tongue midline Neck exam: ABSENT: carotid bruit, JVD, lymphadenopathy, thyromegaly Respiratory exam: PRESENT: clear to auscultation samaria. ABSENT: rales, rhonchi, wheezes Cardiovascular exam: PRESENT: RRR. ABSENT: diastolic murmur, rubs, systolic murmur Pulses: PRESENT: normal dorsalis pedis pul Vascular exam: PRESENT: normal capillary refill GI/Abdominal exam: PRESENT: normal bowel sounds, soft. ABSENT: distended, guarding, mass, organolmegaly, rebound, tenderness Rectal exam: PRESENT: deferred Extremities exam: PRESENT: full ROM. ABSENT: calf tenderness, clubbing, pedal edema Neurological exam: PRESENT: alert, awake, oriented to person, oriented to place, oriented to time, oriented to situation, CN II-XII grossly intact. ABSENT: motor sensory deficit Psychiatric exam: PRESENT: appropriate affect, normal mood. ABSENT: homicidal ideation, suicidal ideation Skin exam: PRESENT: dry, intact, warm. ABSENT: cyanosis, rash Results Laboratory Results: 07/19/18 07:00 07/19/18 07:00 07/19/18 07/19/18 07:00 07:00 WBC 9.5 RBC 1.93 L Hgb 7.5 L Hct 20.0 L MCV 104 H MCH 38.8 H MCHC 37.4 H RDW 22.8 H Plt Count 379 Seg Neutrophils % Not Reportable Lymphocytes % Not Reportable Monocytes % Not Reportable Eosinophils % Not Reportable Basophils % Not Reportable Absolute Neutrophils Not Reportable Absolute Lymphocytes Not Reportable Absolute Monocytes Not Reportable Absolute Eosinophils Not Reportable Absolute Basophils Not Reportable Sodium 139.8 Potassium 4.2 Chloride 107 Carbon Dioxide 29 Anion Gap 4 L BUN 6 L Creatinine 0.43 L Est GFR ( Amer) > 60 Est GFR (Non-Af Amer) > 60 Glucose 87 Calcium 8.9 Total Bilirubin 7.3 H AST 31 ALT 37 Alkaline Phosphatase 104 Total Protein 6.7 Albumin 3.3 L 07/12/18 21:33 Troponin I 0.015 Impressions: Chest X-Ray 07/12/18 21:16 IMPRESSION: 1. No acute cardiothoracic abnormality. 2. Chronic findings of the spine, suggesting sickle cell disease 3. Previous cholecystectomy 4. Right IJ port remains in place. Assessment & Plan - Diagnosis (1) Sickle cell crisis Is this a current diagnosis for this admission?: Yes Plan: Improving, decrease Dilaudid today, see how patient does by tomorrow. 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
[2018-07-19] MEDS: RIVAROXABAN 10 MG TABLET PO SCH (16:50)
--- NOTE | 2018-07-19 19:31 | PDOC PROGRESS REPORT ---
Subjective Progress Note for:: 07/19/18 Subjective:: Still with generalized pain, worse in her back. Admits she is slowly improving. Denies chest pain, no fever or chills. No cough or hemoptysis. Reason For Visit: SS PAIN CRISIS, ANEMIA Physical Exam Vital Signs: Temp Pulse Resp BP Pulse Ox 97.4 F 65 16 116/55 L 97 07/19/18 12:00 07/19/18 12:00 07/19/18 12:00 07/19/18 12:00 07/19/18 12:00 Intake & Output 07/18/18 07/19/18 07/20/18 06:59 06:59 06:59 Intake Total 3300 4060 1236 Balance 3300 4060 1236 Weight 63.5 kg 64.5 kg GENERAL: Well-developed, no acute distress HEENT: Normocephalic/atraumatic NECK supple, no JVD CARDIOVASCULAR: RRR, normal S1-S2 LUNGS: CTA bilaterally ABDOMEN: Soft, NT, NL bowel sounds EXTREMITIES: No edema, clubbing, cyanosis NEUROLOGICAL: Alert, oriented x 3, no focal Results Laboratory Results: 07/19/18 07:00 07/19/18 07:00 07/19/18 07/19/18 07:00 07:00 WBC 9.5 RBC 1.93 L Hgb 7.5 L Hct 20.0 L MCV 104 H MCH 38.8 H MCHC 37.4 H RDW 22.8 H Plt Count 379 Seg Neutrophils % Not Reportable Lymphocytes % Not Reportable Monocytes % Not Reportable Eosinophils % Not Reportable Basophils % Not Reportable Absolute Neutrophils Not Reportable Absolute Lymphocytes Not Reportable Absolute Monocytes Not Reportable Absolute Eosinophils Not Reportable Absolute Basophils Not Reportable Sodium 139.8 Potassium 4.2 Chloride 107 Carbon Dioxide 29 Anion Gap 4 L BUN 6 L Creatinine 0.43 L Est GFR ( Amer) > 60 Est GFR (Non-Af Amer) > 60 Glucose 87 Calcium 8.9 Total Bilirubin 7.3 H AST 31 ALT 37 Alkaline Phosphatase 104 Total Protein 6.7 Albumin 3.3 L 07/12/18 21:33 Troponin I 0.015 Impressions: Chest X-Ray 07/12/18 21:16 IMPRESSION: 1. No acute cardiothoracic abnormality. 2. Chronic findings of the spine, suggesting sickle cell disease 3. Previous cholecystectomy 4. Right IJ port remains in place. 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 Is this a current diagnosis for this admission?: Yes (4) Back pain Qualifiers: Back pain location: back pain in unspecified location Chronicity: chronic Back pain laterality: unspecified Qualified Code(s): M54.9 - Dorsalgia, unspecified; G89.29 - Other chronic pain Is this a current diagnosis for this admission?: Yes (5) Elevated bilirubin Is this a current diagnosis for this admission?: Yes (6) Elevated liver function tests Is this a current diagnosis for this admission?: Yes (7) History of DVT (deep vein thrombosis) Is this a current diagnosis for this admission?: Yes - Plan Summary Plan Summary: We will continue IV hydration, IV fluids. Continue pain management--hematology follow-up appreciated. Hopefully, we can wean down her pain medication for possible discharge soon. Follow CBC and Chem-7 in a.m., hold off on further transfusion for now. Continue heparin heparin for DVT prophylaxis.
[2018-07-19] MEDS: ARIPIPRAZOLE 5 MG TABLET PO SCH (22:22)
[2018-07-19] MEDS: ESCITALOPRAM OXALATE 10 MG TABLET PO SCH (22:23)
[2018-07-20] MEDS: HYDROMORPHONE HCL INJ/PF 2 MG/ML AMPULE IV PRN ×7 (01:55→22:03)
--- NOTE | 2018-07-20 08:22 | PDOC PROGRESS REPORT ---
Subjective Progress Note for:: 07/20/18 Subjective:: Patient doing better but still having some pain this morning. Reason For Visit: SS PAIN CRISIS, ANEMIA Physical Exam Vital Signs: Temp Pulse Resp BP Pulse Ox 98.6 F 62 18 111/58 L 94 07/19/18 23:22 07/20/18 07:00 07/19/18 23:22 07/19/18 23:22 07/19/18 23:22 Intake & Output 07/19/18 07/20/18 07/21/18 06:59 06:59 06:59 Intake Total 4060 3871 Output Total 1275 Balance 4060 2596 Weight 64.5 kg 63.2 kg General appearance: PRESENT: no acute distress, well-developed, well-nourished Head exam: PRESENT: atraumatic, normocephalic Eye exam: PRESENT: conjunctiva pink, EOMI, PERRLA. ABSENT: scleral icterus Ear exam: PRESENT: normal external ear exam Mouth exam: PRESENT: moist, tongue midline Neck exam: ABSENT: carotid bruit, JVD, lymphadenopathy, thyromegaly Respiratory exam: PRESENT: clear to auscultation samaria. ABSENT: rales, rhonchi, wheezes Cardiovascular exam: PRESENT: RRR. ABSENT: diastolic murmur, rubs, systolic murmur Pulses: PRESENT: normal dorsalis pedis pul Vascular exam: PRESENT: normal capillary refill GI/Abdominal exam: PRESENT: normal bowel sounds, soft. ABSENT: distended, guarding, mass, organolmegaly, rebound, tenderness Rectal exam: PRESENT: deferred Extremities exam: PRESENT: full ROM. ABSENT: calf tenderness, clubbing, pedal edema Neurological exam: PRESENT: alert, awake, oriented to person, oriented to place, oriented to time, oriented to situation, CN II-XII grossly intact. ABSENT: motor sensory deficit Psychiatric exam: PRESENT: appropriate affect, normal mood. ABSENT: homicidal ideation, suicidal ideation Skin exam: PRESENT: dry, intact, warm. ABSENT: cyanosis, rash Results Laboratory Results: 07/19/18 07/19/18 07:00 07:00 WBC 9.5 RBC 1.93 L Hgb 7.5 L Hct 20.0 L MCV 104 H MCH 38.8 H MCHC 37.4 H RDW 22.8 H Plt Count 379 Seg Neutrophils % Not Reportable Lymphocytes % Not Reportable Monocytes % Not Reportable Eosinophils % Not Reportable Basophils % Not Reportable Absolute Neutrophils Not Reportable Absolute Lymphocytes Not Reportable Absolute Monocytes Not Reportable Absolute Eosinophils Not Reportable Absolute Basophils Not Reportable Sodium 139.8 Potassium 4.2 Chloride 107 Carbon Dioxide 29 Anion Gap 4 L BUN 6 L Creatinine 0.43 L Est GFR ( Amer) > 60 Est GFR (Non-Af Amer) > 60 Glucose 87 Calcium 8.9 Total Bilirubin 7.3 H AST 31 ALT 37 Alkaline Phosphatase 104 Total Protein 6.7 Albumin 3.3 L 07/12/18 21:33 Troponin I 0.015 Impressions: Chest X-Ray 07/12/18 21:16 IMPRESSION: 1. No acute cardiothoracic abnormality. 2. Chronic findings of the spine, suggesting sickle cell disease 3. Previous cholecystectomy 4. Right IJ port remains in place. Assessment & Plan - Diagnosis (1) Sickle cell crisis Is this a current diagnosis for this admission?: Yes Plan: Continue with current pain regimen for another 24 hours. Will discuss further with patient tomorrow but she would benefit from continued IV pain control. 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
[2018-07-20 08:28] LABS: HEMATOCRIT 21.5 % (36.0-47.0); MEAN CORPUSCULAR HEMOGLOBIN 38.4 pg (27.0-33.4); MEAN CORPUSCULAR HGB CONC 36.6 g/dL (32.0-36.0); MEAN CORPUSCULAR VOLUME 105 fl (80-97); PLATELET COUNT 462 10^3/uL (150-450); RED BLOOD COUNT 2.05 10^6/uL (3.72-5.28); RED CELL DISTRIBUTION WIDTH 23.2 % (11.5-14.0); WHITE BLOOD COUNT 9.3 10^3/uL (4.0-10.5)
[2018-07-20 08:43] LABS: ALANINE AMINOTRANSFERASE 34 U/L (9-52); ALBUMIN 3.5 g/dL (3.5-5.0); ALKALINE PHOSPHATASE 106 U/L (38-126); ASPARTATE AMINO TRANSFERASE 33 U/L (14-36); BILIRUBIN,TOTAL 5.6 mg/dL (0.2-1.3); BLOOD UREA NITROGEN 4 mg/dL (7-20); CALCIUM 9.1 mg/dL (8.4-10.2); GLUCOSE 83 mg/dL (75-110)
[2018-07-20 09:25] LABS: ABSOLUTE LYMPHOCYTES# (MANUAL) 4.3 10^3/uL (0.5-4.7); ABSOLUTE MONOCYTES # (MANUAL) 0.4 10^3/uL (0.1-1.4); ABSOLUTE NEUTROPHILS# (MANUAL) 3.5 10^3/uL (1.7-8.2); BASOPHILS % (MANUAL) 1 % (0-2); EOSINOPHILS % (MANUAL) 11 % (0-6); LYMPHOCYTES % (MANUAL) 45 % (13-45); MONOCYTES % (MANUAL) 4 % (3-13); NUCLEATED RED BLOOD CELLS 9 /100 WBC (0); SEGMENTED NEUTROPHILS % (MAN) 38 % (42-78); TOTAL CELLS COUNTED 100
[2018-07-20 09:27] LABS: ANISOCYTOSIS 3+; POLYCHROMASIA 1+; SICKLE RED CELLS 1+
[2018-07-20 09:28] LABS: HEMOGLOBIN 7.9 g/dL (12.0-15.5); PAPPENHEIMER BODIES PRESENT; PLATELET COMMENT INCREASED; TARGET CELLS 2+
[2018-07-20 09:40] LABS: ANION GAP 6 (5-19); CARBON DIOXIDE 28 mmol/L (22-30); CHLORIDE 106 mmol/L (98-107); POTASSIUM 4.5 mmol/L (3.6-5.0); SODIUM 139.5 mmol/L (137-145)
[2018-07-20] MEDS: NORMAL SALINE 1000 ML 1,000 ML IV PRN ×2 (10:36→20:40)
[2018-07-20] MEDS: HYDROXYUREA 500 MG CAPSULE PO SCH ×2 (10:41→17:28)
[2018-07-20] MEDS: POLYETHYLENE GLYCOL 3350 POWDER 17 GM/1 PACKET PO SCH ×3 (10:41→17:21)
[2018-07-20] MEDS: SENNOSIDES/DOCUSATE 8.6-50 MG 1 EACH TABLET PO SCH ×2 (10:42→17:27)
[2018-07-20] MEDS: FOLIC ACID 1 MG TABLET PO SCH (10:42)
--- NOTE | 2018-07-20 17:09 | PDOC PROGRESS REPORT ---
Subjective Progress Note for:: 07/20/18 Subjective:: Still with generalized pain, worse in her back but thinks she is slowly improving. Denies chest pain, no fever or chills. No cough or hemoptysis. Reason For Visit: SS PAIN CRISIS, ANEMIA Physical Exam Vital Signs: Temp Pulse Resp BP Pulse Ox 98.4 F 67 14 106/58 L 94 07/20/18 12:12 07/20/18 12:12 07/20/18 12:12 07/20/18 12:12 07/20/18 12:12 Intake & Output 07/19/18 07/20/18 07/21/18 06:59 06:59 06:59 Intake Total 4060 3871 1000 Output Total 1275 Balance 4060 2596 1000 Weight 64.5 kg 63.2 kg GENERAL: Well-developed, no acute distress HEENT: Normocephalic/atraumatic NECK supple, no JVD CARDIOVASCULAR: RRR, normal S1-S2 LUNGS: CTA bilaterally ABDOMEN: Soft, NT, NL bowel sounds EXTREMITIES: No edema, clubbing, cyanosis NEUROLOGICAL: Alert, oriented x 3, nonfocal Results Laboratory Results: 07/20/18 06:40 07/20/18 06:40 07/20/18 07/20/18 06:40 06:40 WBC 9.3 RBC 2.05 L Hgb 7.9 L Hct 21.5 L MCV 105 H MCH 38.4 H MCHC 36.6 H RDW 23.2 H Plt Count 462 H Seg Neutrophils % Not Reportable Lymphocytes % Not Reportable Monocytes % Not Reportable Eosinophils % Not Reportable Basophils % Not Reportable Absolute Neutrophils Not Reportable Absolute Lymphocytes Not Reportable Absolute Monocytes Not Reportable Absolute Eosinophils Not Reportable Absolute Basophils Not Reportable Sodium 139.5 Potassium 4.5 Chloride 106 Carbon Dioxide 28 Anion Gap 6 BUN 4 L Creatinine 0.43 L Est GFR ( Amer) > 60 Est GFR (Non-Af Amer) > 60 Glucose 83 Calcium 9.1 Total Bilirubin 5.6 H AST 33 ALT 34 Alkaline Phosphatase 106 Total Protein 7.0 Albumin 3.5 07/12/18 21:33 Troponin I 0.015 Impressions: Chest X-Ray 07/12/18 21:16 IMPRESSION: 1. No acute cardiothoracic abnormality. 2. Chronic findings of the spine, suggesting sickle cell disease 3. Previous cholecystectomy 4. Right IJ port remains in place. 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 Is this a current diagnosis for this admission?: Yes (4) Back pain Qualifiers: Back pain location: back pain in unspecified location Chronicity: chronic Back pain laterality: unspecified Qualified Code(s): M54.9 - Dorsalgia, unspecified; G89.29 - Other chronic pain Is this a current diagnosis for this admission?: Yes (5) Elevated bilirubin Is this a current diagnosis for this admission?: Yes (6) Elevated liver function tests Is this a current diagnosis for this admission?: Yes (7) History of DVT (deep vein thrombosis) Is this a current diagnosis for this admission?: Yes - Plan Summary Plan Summary: We will continue IV hydration, IV fluids. Continue pain management--hematology service is following. I am hoping that we can wean down her pain medication for possible discharge soon. Follow up CBC and Chem-7 in a.m., hold off on further packed red blood cells transfusion for now. Continue heparin for DVT prophylaxis.
[2018-07-20] MEDS: RIVAROXABAN 10 MG TABLET PO SCH (17:25)
[2018-07-20] MEDS: ESCITALOPRAM OXALATE 10 MG TABLET PO SCH (22:04)
[2018-07-20] MEDS: DIPHENHYDRAMINE HCL 50 MG CAPSULE PO PRN (22:04)
[2018-07-20] MEDS: ARIPIPRAZOLE 5 MG TABLET PO SCH (22:32)
[2018-07-21] MEDS: HYDROMORPHONE HCL INJ/PF 2 MG/ML AMPULE IV PRN ×6 (06:29→23:14)
[2018-07-21] MEDS: FOLIC ACID 1 MG TABLET PO SCH (09:05)
[2018-07-21] MEDS: HYDROXYUREA 500 MG CAPSULE PO SCH ×2 (09:05→17:50)
[2018-07-21] MEDS: SENNOSIDES/DOCUSATE 8.6-50 MG 1 EACH TABLET PO SCH ×2 (09:05→17:50)
[2018-07-21] MEDS: POLYETHYLENE GLYCOL 3350 POWDER 17 GM/1 PACKET PO SCH ×3 (09:05→17:50)
[2018-07-21 09:08] LABS: HEMATOCRIT 24.9 % (36.0-47.0); HEMOGLOBIN 8.9 g/dL (12.0-15.5); MEAN CORPUSCULAR HEMOGLOBIN 38.1 pg (27.0-33.4); MEAN CORPUSCULAR HGB CONC 35.8 g/dL (32.0-36.0); MEAN CORPUSCULAR VOLUME 107 fl (80-97); PLATELET COUNT 588 10^3/uL (150-450); RED BLOOD COUNT 2.34 10^6/uL (3.72-5.28); WHITE BLOOD COUNT 9.9 10^3/uL (4.0-10.5)
[2018-07-21 09:23] LABS: ANION GAP 8 (5-19); BLOOD UREA NITROGEN 4 mg/dL (7-20); CALCIUM 9.8 mg/dL (8.4-10.2); CARBON DIOXIDE 25 mmol/L (22-30); CHLORIDE 108 mmol/L (98-107); GLUCOSE 113 mg/dL (75-110); POTASSIUM 4.5 mmol/L (3.6-5.0); SODIUM 140.8 mmol/L (137-145)
[2018-07-21 09:46] LABS: ABSOLUTE LYMPHOCYTES# (MANUAL) 2.3 10^3/uL (0.5-4.7); ABSOLUTE MONOCYTES # (MANUAL) 0.5 10^3/uL (0.1-1.4); ABSOLUTE NEUTROPHILS# (MANUAL) 6.2 10^3/uL (1.7-8.2); BASOPHILS % (MANUAL) 1 % (0-2); EOSINOPHILS % (MANUAL) 8 % (0-6); LYMPHOCYTES % (MANUAL) 23 % (13-45); MONOCYTES % (MANUAL) 5 % (3-13); NUCLEATED RED BLOOD CELLS 17 /100 WBC (0); SEGMENTED NEUTROPHILS % (MAN) 63 % (42-78); TOTAL CELLS COUNTED 100
[2018-07-21 09:53] LABS: ANISOCYTOSIS 3+; OVALOCYTES 1+; POIKILOCYTOSIS 1+; POLYCHROMASIA 1+
[2018-07-21 09:54] LABS: PLATELET COMMENT INCREASED; SCHISTOCYTES 1+; SICKLE RED CELLS SLIGHT; STOMATOCYTES 1+; TARGET CELLS 1+
--- NOTE | 2018-07-21 13:50 | PDOC PROGRESS REPORT ---
Subjective Progress Note for:: 07/21/18 Subjective:: 23 year old female with a past medical history of sickle cell anemia, chronic pain with opiate dependence, and recurrent vaso-occlusive crisis requiring frequent hospitalizations. Patient has in fact required no less than 50 ER presentations in the last 12 months without acute chest syndrome. Today she presents with intractable low back and chest pain suggestive of previous vaso- occlusive crisis, she is without hypertension, tachycardia or tachypnea but labs reveal hyperbilirubinemia and elevated reticulocyte count. She receives symptomatic management and referred to the hospitalist for admission. She denies recent change of medication, fever chills nausea vomiting and is otherwise felt well. Pain management is deferred to hematology Dr. Baum. 07/[birth year] [id number]-old female with sickle cell anemia, chronic pain with opiate dependency admitted for lower back pain. Patient is receiving 2 mg of IV Dilaudid every 3 as needed and patient is crying at the time of examination she wants me to get in touch with Dr. Baum to increase the dose and increase the frequency of her Dilaudid. I spoke to Dr. lares she recommended to start on IV Dilaudid 3 mg every 3 as needed and also recommended oxygen supplementation and IV fluids to The Recovery from the Sickle Cell Crisis. plan is to continue IV fluids at 100 cc/h and oxygen supplementation. Patient is afebrile vitals are stable. 07/21/[id number]-old female with history of sickle cell anemia, chronic pain with opiate dependency admitted for severe low back pain. No acute events in the last 24 hours. Patient is afebrile. Reason For Visit: SS PAIN CRISIS, ANEMIA Physical Exam Vital Signs: Temp Pulse Resp BP Pulse Ox 98.4 F 67 16 108/53 L 97 07/21/18 10:59 07/21/18 10:59 07/21/18 10:59 07/21/18 10:59 07/21/18 10:59 Intake & Output 07/20/18 07/21/18 07/22/18 06:59 06:59 06:59 Intake Total 3871 3770 236 Output Total 1275 Balance 2596 3770 236 Weight 63.2 kg 65.1 kg General appearance: PRESENT: no acute distress, well-developed Head exam: PRESENT: atraumatic Eye exam: PRESENT: PERRLA Mouth exam: PRESENT: moist, tongue midline Neck exam: ABSENT: carotid bruit, JVD, lymphadenopathy, thyromegaly Respiratory exam: PRESENT: clear to auscultation samaria. ABSENT: rales, rhonchi, wheezes Cardiovascular exam: PRESENT: RRR. ABSENT: diastolic murmur, rubs, systolic murmur GI/Abdominal exam: PRESENT: normal bowel sounds, soft. ABSENT: distended, guard ing, mass, organolmegaly, rebound, tenderness Extremities exam: PRESENT: full ROM. ABSENT: calf tenderness, clubbing, pedal edema Neurological exam: PRESENT: alert, awake, oriented to person, oriented to place, oriented to time, oriented to situation, CN II-XII grossly intact. ABSENT: motor sensory deficit Psychiatric exam: PRESENT: appropriate affect, normal mood. ABSENT: homicidal ideation, suicidal ideation Results Laboratory Results: 07/21/18 08:45 07/21/18 08:45 07/21/18 07/21/18 08:45 08:45 WBC 9.9 RBC 2.34 L Hgb 8.9 L Hct 24.9 L MCV 107 H MCH 38.1 H MCHC 35.8 RDW 23.0 H Plt Count 588 H Seg Neutrophils % Not Reportable Lymphocytes % Not Reportable Monocytes % Not Reportable Eosinophils % Not Reportable Basophils % Not Reportable Absolute Neutrophils Not Reportable Absolute Lymphocytes Not Reportable Absolute Monocytes Not Reportable Absolute Eosinophils Not Reportable Absolute Basophils Not Reportable Sodium 140.8 Potassium 4.5 Chloride 108 H Carbon Dioxide 25 Anion Gap 8 BUN 4 L Creatinine 0.47 L Est GFR ( Amer) > 60 Est GFR (Non-Af Amer) > 60 Glucose 113 H Calcium 9.8 07/12/18 21:33 Troponin I 0.015 Impressions: Chest X-Ray 07/12/18 21:16 IMPRESSION: 1. No acute cardiothoracic abnormality. 2. Chronic findings of the spine, suggesting sickle cell disease 3. Previous cholecystectomy 4. Right IJ port remains in place. Assessment and Plan - Diagnosis (1) Sickle cell crisis Is this a current diagnosis for this admission?: Yes Plan: IV fluids, hydroxyurea, oxygen, symptomatic management, follow-up consult with hematology for pain management. 07/13/2018-plan to continue IV fluids normal saline at 100 cc/h, oxygen 2 L via nasal cannula, hydroxyurea, IV Dilaudid 3 mg every 2 hours as needed. Check the labs tomorrow including reticulocyte count. Consult with Dr. Baum was requested. 07/21/[id number]-ejjz-old female admitted for sickle cell crisis. Improving. Dr. Colin is following the patient on a regular basis. Shunt is receiving IV fluids, hydroxyurea, IV Dilaudid. 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 Hematology will recheck tomorrow and decide if transfusion is required. 07/15/2018-hemoglobin did decrease more to 6.9. Please see hematology note as well. No transfusion at this time. 07/16/2018-please see hematology note. Continue to monitor. Defer transfusion order to hematology. 07/17/2018-I did order a unit of packed red blood cells yesterday afternoon after discussing the case with the primary lead recoverer. Patient feels slightly better today. No additional unit ordered today but will recheck hemoglobin tomorrow. 07/18/2017-as above. Please also see hematology note. 07/21/2018-patient has history of anemia of chronic disease secondary to sickle cell anemia. Hemoglobin is 8.9 today stable. Plan is to continue the present management. (3) Leukocytosis Qualifiers: Leukocytosis type: unspecified Qualified Code(s): D72.829 - Elevated white blood cell count, unspecified Is this a current diagnosis for this admission?: Yes Plan: 07/14/2018-White blood cell count is improving it is down to 13.4 from 18. 07/15/2018-white blood cell count continues to improve today it is down to 11.4. Continue to monitor. 07/16/2018-white blood cell count is normal at 9.6. Continue to monitor. 07/17/2018-the white blood cell count was normal yesterday and is slightly higher today. Continue to monitor. This is not a worrisome change. It could be reaction to the transfusion. 07/18/2018-white blood cell count 11,000. Stable. 07/21/2018-patient's WBC count today is 9.9 within normal range. Leukocytosis is resolved. (4) DVT (deep venous thrombosis) Is this a current diagnosis for this admission?: No Plan: 07/21/2018-patient has a history of DVT on Xarelto plan is to continue the present management. (5) DVT (deep venous thrombosis) Is this a current diagnosis for this admission?: No - Time Time Spent with patient: 15-24 minutes Medications reviewed and adjusted accordingly: Yes Anticipated discharge: Home
[2018-07-21] MEDS: RIVAROXABAN 10 MG TABLET PO SCH (17:50)
[2018-07-21] MEDS: NORMAL SALINE 1000 ML 1,000 ML IV PRN (17:50)
[2018-07-21] MEDS: DIPHENHYDRAMINE HCL 50 MG CAPSULE PO PRN (19:57)
[2018-07-21] MEDS: ARIPIPRAZOLE 5 MG TABLET PO SCH (22:15)
[2018-07-21] MEDS: ESCITALOPRAM OXALATE 10 MG TABLET PO SCH (23:16)
[2018-07-22] MEDS: HYDROMORPHONE HCL INJ/PF 2 MG/ML AMPULE IV PRN ×4 (04:05→12:42)
[2018-07-22] MEDS: NORMAL SALINE 1000 ML 1,000 ML IV PRN (04:07)
--- NOTE | 2018-07-22 09:04 | PDOC PROGRESS REPORT ---
Subjective Progress Note for:: 07/22/18 Subjective:: Patient doing better this morning, hemoglobin improved, I believe she is ready for discharge Reason For Visit: SS PAIN CRISIS, ANEMIA Physical Exam Vital Signs: Temp Pulse Resp BP Pulse Ox 98.9 F 60 17 115/51 L 97 07/22/18 08:32 07/22/18 08:32 07/21/18 23:25 07/22/18 08:32 07/22/18 08:32 Intake & Output 07/21/18 07/22/18 07/23/18 06:59 06:59 06:59 Intake Total 4770 2027 Balance 4770 2027 Weight 65.1 kg 65 kg General appearance: PRESENT: no acute distress, well-developed, well-nourished Head exam: PRESENT: atraumatic, normocephalic Eye exam: PRESENT: conjunctiva pink, EOMI, PERRLA. ABSENT: scleral icterus Ear exam: PRESENT: normal external ear exam Mouth exam: PRESENT: moist, tongue midline Neck exam: ABSENT: carotid bruit, JVD, lymphadenopathy, thyromegaly Respiratory exam: PRESENT: clear to auscultation samaria. ABSENT: rales, rhonchi, wheezes Cardiovascular exam: PRESENT: RRR. ABSENT: diastolic murmur, rubs, systolic murmur Pulses: PRESENT: normal dorsalis pedis pul Vascular exam: PRESENT: normal capillary refill GI/Abdominal exam: PRESENT: normal bowel sounds, soft. ABSENT: distended, guarding, mass, organolmegaly, rebound, tenderness Rectal exam: PRESENT: deferred Extremities exam: PRESENT: full ROM. ABSENT: calf tenderness, clubbing, pedal edema Neurological exam: PRESENT: alert, awake, oriented to person, oriented to place, oriented to time, oriented to situation, CN II-XII grossly intact. ABSENT: motor sensory deficit Psychiatric exam: PRESENT: appropriate affect, normal mood. ABSENT: homicidal ideation, suicidal ideation Skin exam: PRESENT: dry, intact, warm. ABSENT: cyanosis, rash Results Laboratory Results: 07/21/18 08:45 07/21/18 08:45 07/21/18 07/21/18 08:45 08:45 WBC 9.9 RBC 2.34 L Hgb 8.9 L Hct 24.9 L MCV 107 H MCH 38.1 H MCHC 35.8 RDW 23.0 H Plt Count 588 H Seg Neutrophils % Not Reportable Lymphocytes % Not Reportable Monocytes % Not Reportable Eosinophils % Not Reportable Basophils % Not Reportable Absolute Neutrophils Not Reportable Absolute Lymphocytes Not Reportable Absolute Monocytes Not Reportable Absolute Eosinophils Not Reportable Absolute Basophils Not Reportable Sodium 140.8 Potassium 4.5 Chloride 108 H Carbon Dioxide 25 Anion Gap 8 BUN 4 L Creatinine 0.47 L Est GFR ( Amer) > 60 Est GFR (Non-Af Amer) > 60 Glucose 113 H Calcium 9.8 07/12/18 21:33 Troponin I 0.015 Impressions: Chest X-Ray 07/12/18 21:16 IMPRESSION: 1. No acute cardiothoracic abnormality. 2. Chronic findings of the spine, suggesting sickle cell disease 3. Previous cholecystectomy 4. Right IJ port remains in place. 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
[2018-07-22] MEDS: FOLIC ACID 1 MG TABLET PO SCH (09:21)
[2018-07-22] MEDS: HYDROXYUREA 500 MG CAPSULE PO SCH (09:21)
[2018-07-22] MEDS: SENNOSIDES/DOCUSATE 8.6-50 MG 1 EACH TABLET PO SCH (09:21)
[2018-07-22] MEDS: POLYETHYLENE GLYCOL 3350 POWDER 17 GM/1 PACKET PO SCH ×2 (09:22→15:20)
[2018-07-22 11:12] LABS: HEMATOCRIT 23.7 % (36.0-47.0); HEMOGLOBIN 8.5 g/dL (12.0-15.5); MEAN CORPUSCULAR HGB CONC 35.9 g/dL (32.0-36.0); MEAN CORPUSCULAR VOLUME 109 fl (80-97); PLATELET COUNT 629 10^3/uL (150-450); RED BLOOD COUNT 2.19 10^6/uL (3.72-5.28); WHITE BLOOD COUNT 10.9 10^3/uL (4.0-10.5)
[2018-07-22 11:50] LABS: ABSOLUTE LYMPHOCYTES# (MANUAL) 2.9 10^3/uL (0.5-4.7); ABSOLUTE MONOCYTES # (MANUAL) 0.2 10^3/uL (0.1-1.4); ABSOLUTE NEUTROPHILS# (MANUAL) 6.6 10^3/uL (1.7-8.2); BASOPHILS % (MANUAL) 2 % (0-2); EOSINOPHILS % (MANUAL) 8 % (0-6); LYMPHOCYTES % (MANUAL) 26 % (13-45); MONOCYTES % (MANUAL) 2 % (3-13); NUCLEATED RED BLOOD CELLS 8 /100 WBC (0); SEGMENTED NEUTROPHILS % (MAN) 61 % (42-78); TOTAL CELLS COUNTED 100
[2018-07-22 12:07] LABS: POLYCHROMASIA 1+
[2018-07-22 12:08] LABS: ANISOCYTOSIS 2+; PLATELET COMMENT ADEQUATE; POIKILOCYTOSIS 1+; SICKLE RED CELLS 1+; TARGET CELLS 1+; TEAR DROP CELLS 1+
[2018-07-22 12:29] LABS: ALANINE AMINOTRANSFERASE 28 U/L (9-52); ALBUMIN 3.6 g/dL (3.5-5.0); ALKALINE PHOSPHATASE 89 U/L (38-126); ASPARTATE AMINO TRANSFERASE 28 U/L (14-36); BILIRUBIN,DIRECT 0.2 mg/dL (0.0-0.4); BILIRUBIN,TOTAL 2.4 mg/dL (0.2-1.3); BLOOD UREA NITROGEN 5 mg/dL (7-20); CALCIUM 9.2 mg/dL (8.4-10.2); CARBON DIOXIDE 26 mmol/L (22-30); CHLORIDE 111 mmol/L (98-107); GLUCOSE 101 mg/dL (75-110); POTASSIUM 4.3 mmol/L (3.6-5.0); SODIUM 141.3 mmol/L (137-145); TOTAL PROTEIN 7.1 g/dL (6.3-8.2)
[2018-07-22 12:47] LABS: SCHISTOCYTES 1+
[2018-07-22 12:55] LABS: ANION GAP 4 (5-19)
--- NOTE | 2018-07-22 14:18 | PDOC DISCHARGE SUMMARY ---
General - Admit/Disc Date/PCP Admission Date/Primary Care Provider: 07/13/18 01:34 JOIE MOREIRA MD Discharge Date: 07/22/18 - Discharge Diagnosis (1) Sickle cell crisis Is this a current diagnosis for this admission?: Yes Summary: IV fluids, hydroxyurea, oxygen, symptomatic management, follow-up consult with hematology for pain management. 07/13/2018-plan to continue IV fluids normal saline at 100 cc/h, oxygen 2 L via nasal cannula, hydroxyurea, IV Dilaudid 3 mg every 2 hours as needed. Check the labs tomorrow including reticulocyte count. Consult with Dr. Moreira was r equested. 07/21/[id number]-kspm-old female admitted for sickle cell crisis. Improving. Dr. Colin is following the patient on a regular basis. Shunt is receiving IV fluids, hydroxyurea, IV Dilaudid. 07/22/[id number]-pkbi-old female with history of sickle cell anemia admitted for sickle cell crisis. Treated with IV fluids and IV pain medications. Patient was seen by Dr. Moreira he called me and told me patient is stable to go home today. (2) Anemia Is this a current diagnosis for this admission?: Yes Summary: 07/14/2018-her hemoglobin did decrease to 7.2 yesterday. Hematology will recheck tomorrow and decide if transfusion is required. 07/15/2018-hemoglobin did decrease more to 6.9. Please see hematology note as well. No transfusion at this time. 07/16/2018-please see hematology note. Continue to monitor. Defer transfusion order to hematology. 07/17/2018-I did order a unit of packed red blood cells yesterday afternoon after discussing the case with the primary security officers and guards. Patient feels slightly better today. No additional unit ordered today but will recheck hemoglobin tomorrow. 07/18/2017-as above. Please also see hematology note. 07/21/2018-patient has history of anemia of chronic disease secondary to sickle cell anemia. Hemoglobin is 8.9 today stable. Plan is to continue the present management. 07/22/2018-patient has history of anemia of chronic disease most likely secondary to sickle cell anemia. Her hemoglobin today is 8.5. Stable. Patient is going home today. (3) Leukocytosis Is this a current diagnosis for this admission?: Yes Summary: 07/22/2018-patient came with elevated WBC count most likely secondary to sickle cell crisis which was resolving. (4) DVT (deep venous thrombosis) Is this a current diagnosis for this admission?: No Summary: 07/22/2018-patient has history of DVTs on Xarelto patient was advised to continue the medication at home. (5) DVT (deep venous thrombosis) Is this a current diagnosis for this admission?: No - Additional Information Resuscitation Status: Full Code Discharge Diet: Cardiac Discharge Activity: Activity As Tolerated Home Medications: Aripiprazole [Abilify 5 mg Tablet] 10 mg PO QHS tablet 07/22/18 Folic Acid [Folvite 1 mg Tablet] 1 mg PO DAILY tablet 07/22/18 Hydroxyurea [Hydrea 500 mg Capsule] 500 mg PO BID capsule 07/22/18 Ipratropium/Albuterol Sulfate [Duoneb 3 ml Ampul] 3 ml NEB [id number] PRN vial.neb 07/22/18 Polyethylene Glycol 3350 [Miralax Powder 17 gm/Packet] 17 gm PO DAILY powd.pack 07/22/18 Polyethylene Glycol 3350 [Miralax Powder 17 gm/Packet] 17 gm PO TID powd.pack 07/22/18 Rivaroxaban [Xarelto 10 mg Tablet] 20 mg PO WSUPPER tablet 07/22/18 Sennosides/Docusate 8.6-50 mg [Senna Plus Tablet] 2 each PO BID tablet 07/22/18 History of Present Illness History of Present Illness: CASSANDRA MIDDLETON is a 23 year old female 23 year old female with a past medical history of sickle cell anemia, chronic pain with opiate dependence, and recurrent vaso-occlusive crisis requiring frequent hospitalizations. Patient has in fact required no less than 50 ER presentations in the last 12 months without acute chest syndrome. Today she presents with intractable low back and chest pain suggestive of previous vaso- occlusive crisis, she is without hypertension, tachycardia or tachypnea but labs reveal hyperbilirubinemia and elevated reticulocyte count. She receives symptomatic management and referred to the hospitalist for admission. She denies recent change of medication, fever chills nausea vomiting and is otherwise felt well. Pain management is deferred to hematology Dr. Moreira. Physical Exam Vital Signs: Temp Pulse Resp BP Pulse Ox 98.4 F 60 13 118/49 L 96 07/22/18 12:13 07/22/18 12:13 07/22/18 12:13 07/22/18 12:13 07/22/18 12:13 Intake & Output 07/21/18 07/22/18 07/23/18 06:59 06:59 06:59 Intake Total 4795 2027 Balance 4770 2027 Weight 65.1 kg 65 kg General appearance: PRESENT: no acute distress Head exam: PRESENT: atraumatic Eye exam: PRESENT: PERRLA Mouth exam: PRESENT: moist, tongue midline Neck exam: ABSENT: carotid bruit, JVD, lymphadenopathy, thyromegaly Respiratory exam: PRESENT: decreased breath sounds Cardiovascular exam: PRESENT: tachycardia GI/Abdominal exam: PRESENT: normal bowel sounds, soft. ABSENT: distended, guarding, mass, organolmegaly, rebound, tenderness Rectal exam: PRESENT: deferred Extremities exam: PRESENT: full ROM. ABSENT: calf tenderness, clubbing, pedal edema Neurological exam: PRESENT: alert, awake, oriented to person, oriented to place, oriented to time, oriented to situation, CN II-XII grossly intact. ABSENT: motor sensory deficit Psychiatric exam: PRESENT: appropriate affect, normal mood. ABSENT: homicidal i deation, suicidal ideation Results Laboratory Results: 07/22/18 10:55 07/22/18 10:55 07/22/18 07/22/18 10:55 10:55 WBC 10.9 H RBC 2.19 L Hgb 8.5 L Hct 23.7 L MCV 109 H MCH 39.0 H MCHC 35.9 RDW 22.0 H Plt Count 629 H Seg Neutrophils % Not Reportable Lymphocytes % Not Reportable Monocytes % Not Reportable Eosinophils % Not Reportable Basophils % Not Reportable Absolute Neutrophils Not Reportable Absolute Lymphocytes Not Reportable Absolute Monocytes Not Reportable Absolute Eosinophils Not Reportable Absolute Basophils Not Reportable Sodium 141.3 Potassium 4.3 Chloride 111 H Carbon Dioxide 26 Anion Gap 4 L BUN 5 L Creatinine 0.44 L Est GFR ( Amer) > 60 Est GFR (Non-Af Amer) > 60 Glucose 101 Calcium 9.2 Magnesium 1.6 Total Bilirubin 2.4 H AST 28 ALT 28 Alkaline Phosphatase 89 Total Protein 7.1 Albumin 3.6 07/12/18 21:33 Troponin I 0.015 Impressions: Chest X-Ray 07/12/18 21:16 IMPRESSION: 1. No acute cardiothoracic abnormality. 2. Chronic findings of the spine, suggesting sickle cell disease 3. Previous cholecystectomy 4. Right IJ port remains in place. Qualifiers - * PATIENT BEING DISCHARGED WITH ANY OF THE FOLLOWING DIAGNOSIS: No VTE patient discharged on overlapping Therapy?: No
[2018-07-22 15:32] VITALS: BP 111/54
== END 2018-07-22 17:00 | disposition home or self-care (01) | DRG 812 ==
LOC: ER 20:38 → OBSVTOIN 07-13 01:34 → EH 07-13 01:34 → 5 07-13 11:45
PROVIDERS: ADMIT Internal Medicine; ATTEND Internal Medicine
DX: D57.00 Hb-SS disease with crisis, unspecified (principal); F11.20 Opioid dependence, uncomplicated; G89.29 Other chronic pain; M54.9 Dorsalgia, unspecified; F32.9 Major depressive disorder, single episode, unspecified; D72.829 Elevated white blood cell count, unspecified; Z86.718 Personal history of other venous thrombosis and embolism; Z90.49 Acquired absence of other specified parts of digestive tract; Z88.6 Allergy status to analgesic agent; Z91.018 Allergy to other foods; Z79.02 Long term (current) use of antithrombotics/antiplatelets
CPT/HCPCS: 36415; 36430; 71046; 80048; 80053; 80076; 81025; 83615; 83735; 84484; 85025; 85027; 85045; 86850; 86900; 86901; 86902; 86920; 93005; 93010; 96361; 96374; 96375; 99285; J1170; J1200; J1642; J3490; J7030; P9016

== ENCOUNTER 2018-07-28 13:48 | Emergency (ER) | payer MEDICAID ==
--- NOTE | 2018-07-28 14:20 | ER Document Report ---
ED Medical Screen (RME) - General Chief Complaint: Suicidal Ideation Stated Complaint: SI Time Seen by Provider: 07/28/18 14:07 Primary Care Provider: JOIE MOREIRA MD [Primary Care Provider] - Follow up as needed Mode of Arrival: Ambulatory Information source: Patient Notes: Patient is a 23-year-old female presented to the emergency department chief complaint of suicidal ideations. Patient reports she has been having suicidal thoughts for the last 2 months. She states that her plan is to overdose on her medications. She states that she has a history of depression and anxiety and stopped taking her medications approximately 1 years ago she denies any homicidal ideations. She is calm, cooperative and answering all questions appropriately. Exam: Patient alert, oriented with no acute distress noted. Flat affect, but answering all questions appropriately. I have greeted and performed a rapid initial assessment of this patient. A comprehensive ED assessment and evaluation of the patient, analysis of test results and completion of the medical decision making process will be conducted by additional ED providers. Dictation of this chart was performed using voice recognition software; therefore, there may be some unintended grammatical errors. TRAVEL OUTSIDE OF THE [place] IN LAST 30 DAYS: No - Related Data Allergies/Adverse Reactions: morphine Allergy (Severe, Verified 07/13/18 05:45) RASH,SWELLING jacob peppers Adverse Reaction (Severe, Uncoded 07/13/18 05:45) throat closes Past Medical History - Social History Frequency of alcohol use: Social Family history: Reviewed & Not Pertinent, Other - Pt was adopted. Does not know family history - Past Medical History Cardiac Medical History: Reports: Hx DVT - RUE s/p port placement Pulmonary Medical History: Reports: Hx Asthma, Hx Bronchitis - once in past per patient, Hx Pneumonia - 2014 Neurological Medical History: Endocrine Medical History: Denies: Hx Diabetes Mellitus Type 1, Hx Diabetes Mellitus Type 2 Renal/ Medical History: Denies: Hx Peritoneal Dialysis GI Medical History: Musculoskeltal Medical History: Reports Hx Musculoskeletal Trauma Psychiatric Medical History: Reports: Hx Anxiety, Hx Depression - Lyla Bai Admission 05/14/2016 Past Surgical History: Reports: Hx Cholecystectomy - 06/28/2015, Hx Vascular Surgery - port put in December,, Other - Port-A-Cath in right upper chest - Immunizations Immunizations up to date: Yes Hx Diphtheria, Pertussis, Tetanus Vaccination: Yes History of Influenza Vaccine for 12/2016 - 05/2017 Season: Yes Influenza Administration Date for 12/2016 - 05/2017 Season: 03/11/17 Physical Exam - Vital signs Vitals: Temp Pulse Resp BP Pulse Ox 98.3 F 79 16 108/64 99 07/28/18 13:55 07/28/18 13:55 07/28/18 13:55 07/28/18 13:55 07/28/18 13:55 Course - Vital Signs Vital signs: Temp Pulse Resp BP Pulse Ox 98.3 F 79 16 108/64 99 07/28/18 13:55 07/28/18 13:55 07/28/18 13:55 07/28/18 13:55 07/28/18 13:55 Doctor's Discharge - Discharge Referrals: JOIE MOREIRA MD [Primary Care Provider] - Follow up as needed
[2018-07-28 15:30] LABS: APPEARANCE,URINE CLEAR; BILIRUBIN,URINE NEGATIVE (NEGATIVE); COLOR,URINE YELLOW; GLUCOSE, URINE NEGATIVE (NEGATIVE); KETONES,URINE NEGATIVE (NEGATIVE); LEUKOCYTE ESTERASE,URINE NEGATIVE (NEGATIVE); NITRITE,URINE NEGATIVE (NEGATIVE); PROTEIN,URINE NEGATIVE (NEGATIVE); UROBILINOGEN,URINE NEGATIVE mg/dL (<2.0)
[2018-07-28] MEDS ORDERED: DIPHENHYDRAMINE HCL 50 MG/ML VIAL IV ONE (15:49)
--- NOTE | 2018-07-28 15:49 | ER Document Report ---
Addendum entered and electronically signed by MASOUD WARREN MD 07/29/18 18:41: Course - Re-evaluation Re-evalutation: 07/29/18 18:41 Patient was seen and evaluated by psychiatry and felt stable for discharge. She stated she felt better for me and that she denied any suicidal ideations. - Vital Signs Vital signs: Temp Pulse Resp BP Pulse Ox 98.3 F 79 16 107/48 L 99 07/29/18 08:10 07/29/18 08:10 07/29/18 08:10 07/29/18 08:10 07/29/18 08:10 - Laboratory Result Diagrams: 07/28/18 17:13 07/28/18 17:13 Laboratory results interpreted by me: 07/28/18 07/28/18 17:13 17:13 RBC 2.64 L Hgb 10.1 L Hct 28.6 L MCV 108 H MCH 38.3 H RDW 18.1 H Plt Count 719 H Potassium 3.5 L Chloride 109 H Creatinine 0.45 L Total Bilirubin 2.0 H Salicylates < 1.0 L Acetaminophen < 10 L Original Note: ED Psych Disorder / Suicide - General Mode of Arrival: Ambulatory TRAVEL OUTSIDE OF THE [place] IN LAST 30 DAYS: No <BELEN LARA - Last Filed: 07/28/18 22:03> <SARAH LAWRENCE - Last Filed: 07/29/18 11:51> <MASOUD WARREN - Last Filed: 07/29/18 12:03> - General Chief Complaint: Suicidal Ideation Stated Complaint: SI Time Seen by Provider: 07/28/18 14:07 Primary Care Provider: [facility] [Outside] - Follow up as needed [facility] [Outside] - 07/29/18 2:00 pm JOIE BAUM MD [Primary Care Provider] - 07/29/18 2:00 pm Notes: Patient is complaining of suicidal thoughts for the past week. She is also feeling depressed. Says that she lost a relationship with her father as he is been disappointed in her and now does not communicate with her. She had a history of similar symptoms in the past and says she was in [facility] in May 2017. Currently does not have a counselor or anyone that she sees for mental condition. Patient is a sickle cell patient under the care of Dr. Baum, takes 4 to 8 mg of Dilaudid as needed for pain. Also on hydroxyurea and folate. Also has asthma. (BELEN LARA) - Related Data Allergies/Adverse Reactions: morphine Allergy (Severe, Verified 07/13/18 05:45) RASH,SWELLING jacob peppers Adverse Reaction (Severe, Uncoded 07/13/18 05:45) throat closes Past Medical History - General Information source: Patient - Social History Smoking Status: Current Some Day Smoker Frequency of alcohol use: Social Family History: Other - Sickle cell disease and sickle cell trait, asthma Patient has suicidal ideation: Yes Patient has homicidal ideation: No - Past Medical History Cardiac Medical History: Reports: Hx DVT - RUE s/p port placement Pulmonary Medical History: Reports: Hx Asthma, Hx Bronchitis - once in past per patient, Hx Pneumonia - 2014 Neurological Medical History: Endocrine Medical History: Denies: Hx Diabetes Mellitus Type 1, Hx Diabetes Mellitus Type 2 Renal/ Medical History: Denies: Hx Peritoneal Dialysis GI Medical History: Musculoskeletal Medical History: Reports Hx Musculoskeletal Trauma Psychiatric Medical History: Reports: Hx Anxiety, Hx Depression - [facility] [address] Admission 05/14/2016 Past Surgical History: Reports: Hx Cholecystectomy - 06/28/2015, Hx Vascular Surgery - port put in December,, Other - Port-A-Cath in right upper chest - Immunizations Immunizations up to date: Yes Hx Diphtheria, Pertussis, Tetanus Vaccination: Yes <BELEN LARA - Last Filed: 07/28/18 22:03> - Medical History Notes: Sickle cell disease (BELEN LARA) Review of Systems <BELEN LARA - Last Filed: 07/28/18 22:03> - Review of Systems Notes: REVIEW OF SYSTEMS: CONSTITUTIONAL : Denies fever. Patient complains of all over. EENT: Denies eye, ear, nose or mouth or throat pain or other symptoms. CARDIOVASCULAR: Generalized musculoskeletal thoracic pain. RESPIRATORY: Denies cough, chest congestion, or shortness of breath. GASTROINTESTINAL: Denies abdominal pain or nausea, vomiting, or diarrhea. GENITOURINARY: Denies difficulty or painful urinating, urinary frequency, blood in urine. MUSCULOSKELETAL: Diffuse generalized pain all over SKIN: Denies rash or skin lesions. NEUROLOGICAL: Denies LOC or altered mental status. Denies headache. Denies sensory loss or motor deficits. ALL OTHER SYSTEMS REVIEWED AND NEGATIVE. (BELEN LARA) Physical Exam - Vital signs Interpretation: Normal. No: Febrile <BELEN LARA - Last Filed: 07/28/18 22:03> - Vital signs Vitals: Temp Pulse Resp BP Pulse Ox 98.3 F 79 16 108/64 99 07/28/18 13:55 07/28/18 13:55 07/28/18 13:55 07/28/18 13:55 07/28/18 13:55 Notes: PHYSICAL EXAMINATION: GENERAL: Well-appearing, in no acute distress. Somewhat subdued. HEAD: Atraumatic, normocephalic. EYES: Pupils equal round and reactive to light, extraocular movements intact. ENT: oropharynx clear without exudates. Moist mucous membranes. NECK: Normal range of motion, supple. LUNGS: Breath sounds clear and equal bilaterally. HEART: Regular rate and rhythm without murmurs. ABDOMEN: Soft, nontender. No guarding or rebound. No masses. BACK: No tenderness throughout entire back. EXTREMITIES: Normal range of motion without significant pain. NEUROLOGICAL: Normal speech, normal gait. Normal sensory, motor, and reflex exams. Awake, alert, and oriented x3. Cranial nerves normal. PSYCH: Appears depressed. SKIN: Warm, dry, no rashes. (BELEN LARA) Course - Laboratory Result Diagrams: 07/28/18 17:13 07/28/18 17:13 <BELEN LARA - Last Filed: 07/28/18 22:03> - Laboratory Result Diagrams: 07/28/18 17:13 07/28/18 17:13 <SARAH LAWRENCE - Last Filed: 07/29/18 11:51> - Laboratory Result Diagrams: 07/28/18 17:13 07/28/18 17:13 <MASOUD WARREN - Last Filed: 07/29/18 12:03> - Re-evaluation Re-evalutation: 07/28/18 22:07 Mental health consult requested. (BELEN LARA) - Vital Signs Vital signs: Temp Pulse Resp BP Pulse Ox 98.3 F 79 16 107/48 L 99 07/29/18 08:10 07/29/18 08:10 07/29/18 08:10 07/29/18 08:10 07/29/18 08:10 - Laboratory Laboratory results interpreted by me: 07/28/18 07/28/18 17:13 17:13 RBC 2.64 L Hgb 10.1 L Hct 28.6 L MCV 108 H MCH 38.3 H RDW 18.1 H Plt Count 719 H Potassium 3.5 L Chloride 109 H Creatinine 0.45 L Total Bilirubin 2.0 H Salicylates < 1.0 L Acetaminophen < 10 L Labs without any new, significant changes or abnormalities. (BELEN LARA) Discharge <BELEN LARA - Last Filed: 07/28/18 22:03> <SARAH LAWRENCE - Last Filed: 07/29/18 11:51> <MASOUD WARREN - Last Filed: 07/29/18 12:03> - Discharge Clinical Impression: Suicidal ideation, Depression, Sickle cell disease Condition: Stable Disposition: HOME, SELF-CARE Additional Instructions: You have been evaluated by both medical and behavioral health providers while in the emergency department. You have been cleared from both acute medical and psychiatric issues. Prolonged use of pain medication (though utilized for your Sickle Cell) has been known to cause an increase in depression given it deals with the same receptors as pleasure receptors. DEPRESSION: Your evaluation reveals that you have mental depression. While symptoms may be vague, they often include disturbance of sleep, fatigue, loss of appetite, and general loss of interest in life. While depression may be a side effect of drugs, or a reaction to a major change in your life, many cases have no known cause. If depression is acute, and related to a major loss in your life, you can expect it to clear completely with time. If you have been depressed a long time, are prone to repeated bouts of depression or low mood, or have been thinking of suicide, get help. Depression can be treated with anti-depressant medication and counselling. Long-term depression will often take a few weeks to clear, even with appropriate medication. Follow-up care is important. SUICIDAL IDEATION: Suicidal ideation is a common medical term for thoughts about suicide, which may be as detailed as a formulated plan, without the suicidal act itself. Although most people who undergo suicidal ideation do not commit suicide, some go on to make suicide attempts. The range of suicidal ideation varies greatly from fleeting to detailed planning, role playing, and unsuccessful attempts. While thoughts about suicide are common, most people do not carry out serious actions to commit suicide. Based upon your evaluation and discussion with you, we do not believe you are currently at risk to act upon your thoughts of suicide. You have agreed to return to the Emergency Department, at any time, if you feel inclined to act upon your suicidal thoughts. FOLLOW-UP CARE: You have a follow up appointment for behavioral health at [facility] 0n 08/05/18 at 1400 (professional support). You should attend this appointment for medication management at the very least. Also recommend individual therapy. You have identified your Community Relations Police Lieutenant as a means for transportation from emergency department to home and that you reside with sister (both natural supports). If you experience worsening or a significant change in your symptoms, notify the physician immediately, utilize mobile crisis or return to the Emergency Department at any time for re-evaluation. Referrals: [facility] [Outside] - Follow up as needed [facility] [Outside] - 07/29/18 2:00 pm JOIE BAUM MD [Primary Care Provider] - 07/29/18 2:00 pm
[2018-07-28] MEDS ORDERED: HYDROMORPHONE HCL 2 MG TABLET PO ONE (15:50)
[2018-07-28 15:51] LABS: URINE AMPHETAMINES SCREEN NEGATIVE; URINE BARBITURATES SCREEN NEGATIVE; URINE BENZODIAZEPINES SCREEN NEGATIVE; URINE COCAINE SCREEN NEGATIVE; URINE MARIJUANA (THC) SCREEN UNCONFIRMED POSITIVE; URINE METHADONE SCREEN NEGATIVE; URINE PHENCYCLIDINE SCREEN NEGATIVE
[2018-07-28] MEDS ORDERED: DIPHENHYDRAMINE HCL 25 MG CAPSULE PO ONE ×2 (15:51→15:53)
[2018-07-28 17:40] LABS: ABSOLUTE BASOPHILS # (AUTO) 0.1 10^3/uL (0.0-0.2); ABSOLUTE EOSINOPHILS # (AUTO) 0.5 10^3/uL (0.0-0.6); ABSOLUTE LYMPHOCYTES (AUTO) 2.9 10^3/uL (0.5-4.7); ABSOLUTE MONOCYTES (AUTO) 0.7 10^3/uL (0.1-1.4); ABSOLUTE NEUT (AUTO) 5.8 10^3/uL (1.7-8.2); BASOPHILS % (AUTO) 1.1 % (0-2); EOSINOPHILS % (AUTO) 5.3 % (0-6); HEMATOCRIT 28.6 % (36.0-47.0); HEMOGLOBIN 10.1 g/dL (12.0-15.5); LYMPHOCYTES % (AUTO) 28.8 % (13-45); MEAN CORPUSCULAR HEMOGLOBIN 38.3 pg (27.0-33.4); MEAN CORPUSCULAR HGB CONC 35.4 g/dL (32.0-36.0); MEAN CORPUSCULAR VOLUME 108 fl (80-97); MONOCYTES % (AUTO) 7.4 % (3-13); PLATELET COUNT 719 10^3/uL (150-450); RED BLOOD COUNT 2.64 10^6/uL (3.72-5.28); RED CELL DISTRIBUTION WIDTH 18.1 % (11.5-14.0); SEGMENTED NEUTROPHILS % (AUTO) 57.4 % (42-78); TOTAL CELLS COUNTED % (AUTO) 100 %; WHITE BLOOD COUNT 10.2 10^3/uL (4.0-10.5)
[2018-07-28 18:01] LABS: ACETAMINOPHEN < 10 ug/mL (10-30); ALANINE AMINOTRANSFERASE 22 U/L (9-52); ALBUMIN 3.8 g/dL (3.5-5.0); ALCOHOL < 10 mg/dL (NONE DETECTED); ALKALINE PHOSPHATASE 69 U/L (38-126); ANION GAP 9 (5-19); ASPARTATE AMINO TRANSFERASE 20 U/L (14-36); BILIRUBIN,DIRECT 0.3 mg/dL (0.0-0.4); BLOOD UREA NITROGEN 8 mg/dL (7-20); CALCIUM 9.2 mg/dL (8.4-10.2); CARBON DIOXIDE 23 mmol/L (22-30); CHLORIDE 109 mmol/L (98-107); GLUCOSE 78 mg/dL (75-110); POTASSIUM 3.5 mmol/L (3.6-5.0); SALICYLATE < 1.0 mg/dL (2.0-20.0); SODIUM 141.2 mmol/L (137-145); TOTAL PROTEIN 7.2 g/dL (6.3-8.2)
--- NOTE | 2018-07-28 19:34 | PSYCHOLOGICAL NOTE ---
Psych Note - Psych Note Date seen by psych provider: 07/28/18 Psych Note: Impression\plan: Patient is recommended for overnight mental health observation. This is voluntary for this patient. Patient presents with passive suicidal ideation. Patient has been off her mental health medications. Home medications have been restarted. Patient will be reevaluated with probable discharge in the morning. Dr. Nowak was consulted to care management of this patient; attending physicians in agreement with recommendations and disposition.
[2018-07-28] MEDS ORDERED: ARIPIPRAZOLE 5 MG TABLET PO SCH (22:00)
[2018-07-28] MEDS ORDERED: DIPHENHYDRAMINE HCL 25 MG CAPSULE PO PRN (22:11)
[2018-07-28] MEDS ORDERED: HYDROMORPHONE HCL 2 MG TABLET PO PRN (22:12)
--- NOTE | 2018-07-28 23:28 | EKG REPORT ---
SEVERITY:- BORDERLINE ECG - SINUS RHYTHM PROBABLE LEFT ATRIAL ABNORMALITY : Confirmed by: Nathan Lopez 28-Jul-2018 23:27:50
[2018-07-29 08:11] VITALS: BP 107/48
--- NOTE | 2018-07-29 10:42 | ER Document Report ---
Doctor's Note Notes: 07/29/18 10:42 This is a 23-year-old female with a history of sickle cell disease and depression that had presented with suicidal ideations. This morning, patient states she feels much better. She does wish to go home today. She does have an appointment with her aspnet developer at 2 PM (Dr. Dl victor). I discussed case with psychiatry who is cleared patient for discharge. 07/29/18 10:42 07/29/18 12:02
--- NOTE | 2018-07-30 11:21 | PSYCHOLOGICAL NOTE ---
Psych Note - Psych Note Date seen by psych provider: 07/29/18 Time seen by psych provider: 09:00 - Re evaluation from [id number]. Spoke to Wringer Machine Operator with plan of care at 1221. Psych Note: Reason for Consult: 1st Re evaluation, Overnight hold, restarted home medications, SI Contact Permissions: Pastor Ml Webber [phone] Patient is a 23 year old female who is in the ED on an overnight mental health observation to restart home medications after being off them and having SI. Today she reported "doing better" when asked how she was feeling. She admitted to having SI yesterday "just general thoughts, they come and go, in the past (noted November 2017 the last time she was in the ED) I have had some thoughts of what to do but never acted, I told my In-Home nurse how I was feeling and asked her to call [facility] yesterday." She denied current SI/HI. She identified she is "supposed to be taking Lexapro and Abilify, had been prescribed by [facility] from May 2017 inpatient hospitalization, stopped taking them because she didn't like the way they made her feel like a zombie at first, then I felt great which is when I stopped and I was to follow up at [facility] but never did." She reported diagnoses of Anxiety and Major Depressive Disorder. She identified she resided w ith her sister. She stated her Wringer Machine Operator as person for transportation and to be notified of plan of care. She was concerned about her Sickle Cell appointment today at 1400 (future/forward/goal oriented thinking). Patient was alert and oriented to self, person, place, time and situation. Mood was euthymic with congruent affect. She was calm and cooperative over night. She denied current SI/HI, admitted to general passive SI yesterday, she informed her In Home Health to call [facility], admitted to past thoughts with things she could do but never took action and the SI comes and goes. Her concern for her medical health (Sickle Cell appointment at 1400) shows future/forward/goal oriented thinking. She did not appear to be responding to internal stimuli as evidenced by fair eye contact, answering questions appropriately when addressed, staying on topic an carrying on dialogue conversation. Thought processes were linear and organized. Conversational speech was within normal limits for rate, tone and prosody. Intellectual abilities are estimated to be average. Insight, judgment and impulse control were fair as evidenced by improved mood and affect, no SI and concern for medical condition and getting to appointment on time. Patient gave verbal consent to speak to regulatory affairs strategy specialist about transportation and plan of care. Patient provided contact information. Wringer Machine Operator identified she has an appointment on [place] at 1300 but could be available after. She was made aware of Sickle Cell appointment today at 1400. She and patient noted the appointment is right by [facility]. Wringer Machine Operator stated she told patient she needed to get back on her medications and is glad patient reached out for help. She was made aware home medications were restarted and a follow up appointment at [facility] had been scheduled. It was agreed patient would walk to her Sickle Cell appointment and Wringer Machine Operator would pick her up from there after Wringer Machine Operator's appointment. Diagnosis: 311 (F32.9) Unspecified Depressive Disorder by history per patient (could be due to prolonged use of pain medication used to treat Sickle Cell episodes) 300.00 (F41.9) Unspecified Anxiety Disorder by history per patient ((could be due to prolonged use of pain medication used to treat Sickle Cell episodes) R/O 296.81 (F31.9) Unspecified Bipolar and Related Disorder Medication recommendations made by the psychiatric medication provider, Dr. Chaz MD., includes: Continue home medications of Lexapro and Abilify Follow up with ongoing outpatient care Impression/Plan: Patient is cleared from acute psychiatric services. She denied current SI/HI, noted SI thoughts come and go, admitted to passive general SI thoughts yesterday, informed In Home Health nurse and to contact [facility]. She was restarted on home medications she had been provided over a year ago when hospitalized at [facility] but then stopped them at discharge and never followed up with [facility]. She was psychoeducated that the medications are likely what made her feel better and at first (1-2 weeks) the body is getting adjusted. She agreed to continue medications and said she would follow up outpatient. She chose [facility] saying that was where she was supposed to have gone previously and it is close to home. She stated she resides with sister (natural support) and her Wringer Machine Operator would provide transportation and could be made aware of plan of care (natural support who knows discharge plan and treatment plan). Scheduled outpatient MH follow up at [facility] on 08/05/18 at 1400. Provided patient with outpatient MH resource sheet which documented appointment date and time as well as highlighted [facility] for crisis/talk therapy/linkage to other services/supports. Consulted with Dr. Nowak regarding the management and care of patient. ED Physician in agreement with recommendations.
== END 2018-07-29 12:50 | disposition home or self-care (01) ==
LOC: ER 13:48
DX: R45.851 Suicidal ideations (principal); F32.9 Major depressive disorder, single episode, unspecified; D57.1 Sickle-cell disease without crisis; Z79.899 Other long term (current) drug therapy; Z62.820 Parent-biological child conflict; F17.200 Nicotine dependence, unspecified, uncomplicated; J45.909 Unspecified asthma, uncomplicated; Z88.5 Allergy status to narcotic agent
CPT/HCPCS: 93005; 36591; 99285; 36415; 80307 ×4; 85025; 80053; 81001; 93010; J3490 ×5

== ENCOUNTER 2018-08-13 09:33 | Outpatient (CLI) | payer MEDICAID | END 2018-08-13 11:22 | disposition home or self-care (01) | LOC: II 09:33 → 5TH 09:36 → II 11:22 | PROVIDERS: ATTEND Internal Medicine | PROC: 3E043GC Introduction of Other Therapeutic Substance into Central Vein, Percutaneous Approach (ICD-10-PCS; principal; 2018-08-13) | PROC: 3E0437Z Introduction of Electrolytic and Water Balance Substance into Central Vein, Percutaneous Approach (ICD-10-PCS; 2018-08-13) | DX: D57.1 Sickle-cell disease without crisis (principal); R52 Pain, unspecified; E86.0 Dehydration | CPT/HCPCS: 96374; 96375; 96360; 96361; J1170; J1642 ==

== ENCOUNTER 2018-08-14 01:34 | Emergency (ER) | payer MEDICAID ==
--- NOTE | 2018-08-14 03:52 | RADIOLOGY REPORT (SQ) ---
EXAM DESCRIPTION: XR ANKLE 3 OR MORE VIEWS COMPLETED DATE/TME: 08/14/2018 01:53 CLINICAL HISTORY: 23 years, Female, Twisted ankle, pain COMPARISON: None. NUMBER OF VIEWS: 3 TECHNIQUE: 3 view left ankle LIMITATIONS: None. FINDINGS: Negative for fracture or dislocation. Soft tissues are unremarkable. Ankle mortise is intact IMPRESSION: Negative exam copyright 2011 [employer]- All Rights Reserved
[2018-08-14] MEDS ORDERED: ACETAMINOPHEN 325 MG TABLET PO ONE (07:11)
--- NOTE | 2018-08-14 07:15 | ER Document Report ---
HPI - HPI Patient complains to provider of: L ankle injury Time Seen by Provider: 08/14/18 07:01 Pain Level: 3 Context: 23-year-old female presents with chief complaint of left ankle injury after being chased by a dog and stepping on a rock. Says she was running along twisted it, did not feel a pop, and escape from the dog. She denies any knee pain or any other associated pain. She denies any fevers or chills. She denies any swelling or bruising. No other complaints - REPRODUCTIVE LMP: 08/13/18 Reproductive: DENIES: : - MUSCULOSKELETAL Musculoskeletal: REPORTS: Extremity pain - left ankle Past Medical History - Social History Smoking Status: Never Smoker Chew tobacco use (# tins/day): No Frequency of alcohol use: None Drug Abuse: None Family History: Other - Sickle cell disease and sickle cell trait, asthma Patient has suicidal ideation: No Patient has homicidal ideation: No - Past Medical History Cardiac Medical History: Reports: Hx DVT - RUE s/p port placement Pulmonary Medical History: Reports: Hx Asthma, Hx Bronchitis - once in past per patient, Hx Pneumonia - 2014 Neurological Medical History: Endocrine Medical History: Denies: Hx Diabetes Mellitus Type 1, Hx Diabetes Mellitus Type 2 Renal/ Medical History: Denies: Hx Peritoneal Dialysis GI Medical History: Musculoskeletal Medical History: Reports Hx Musculoskeletal Trauma Psychiatric Medical History: Reports: Hx Anxiety, Hx Depression - [facility] Admission 05/14/2016 Past Surgical History: Reports: Hx Cholecystectomy - 06/28/2015, Hx Vascular Surgery - port put in December,, Other - Port-A-Cath in right upper chest - Immunizations Immunizations up to date: Yes Hx Diphtheria, Pertussis, Tetanus Vaccination: Yes Vertical Provider Document - CONSTITUTIONAL Notes: PHYSICAL EXAMINATION: Reviewed vital signs and charting by RN GENERAL: Well-appearing, well-nourished and in no acute distress. HEAD: Atraumatic, normocephalic. EYES: Pupils are 3 mm and equal/round, extraocular movements intact, sclera anicteric, conjunctiva are normal. ENT: Nares patent bilaterally, oropharynx clear without exudates or palatal petechia. Moist mucous membranes. No tonsil hypertrophy. NECK: Normal range of motion, supple without lymphadenopathy. EXTREMITIES: Reduced range of motion in the left ankle. He is able to dorsiflex and plantarflex. She has tenderness to palpation over the anterior talofibular ligament, no pitting or edema. No cyanosis. NEUROLOGICAL: No focal neurological deficits. Cranial nerves III-XII grossly intact. Moves all extremities spontaneously and on command. PSYCH: Normal mood, normal affect. No suicidal thoughts/ideations. No homocidal thoughts/ideations. No hallucinations. SKIN: Warm, dry, normal turgor, no rashes or lesions noted. - INFECTION CONTROL TRAVEL OUTSIDE OF THE [place] IN LAST 30 DAYS: No Course - Re-evaluation Re-evalutation: 08/14/18 07:14 Presentation most consistent with a low-grade ankle sprain. X-ray was negative for any fracture dislocation, mortise was intact. I will give her Tylenol 975 mg once, and ankle stirrup and crutches. She is stable for discharge - Vital Signs Vital signs: Temp Pulse Resp BP Pulse Ox 98.8 F 78 16 109/57 L 98 08/14/18 04:04 08/14/18 04:04 08/14/18 04:04 08/14/18 04:04 08/14/18 04:04 Discharge - Discharge Clinical Impression: Left ankle injury Qualifiers: Encounter type: initial encounter Qualified Code(s): S99.912A - Unspecified injury of left ankle, initial encounter Condition: Good Disposition: HOME, SELF-CARE Instructions: Ice & Elevation ([facility]), Sprained Ankle ([facility]), Ankle Stirrup Splint ([facility]), Use of Crutches ([facility]) Additional Instructions: Please follow-up with your primary doctor in the next 7 to 10 days if your symptoms do not improve. Please take it easy for the first 24 hours and then it is okay to slowly bear weight on your foot. If your toes turn blue or numb, you lose circulation to your foot, or you have any other concerning symptoms please return to the emergency department Referrals: JOIE MOREIRA MD [Primary Care Provider] - Follow up as needed
[2018-08-14 07:56] VITALS: BP 104/69
== END 2018-08-14 07:54 | disposition home or self-care (01) ==
LOC: ER 01:34
DX: S99.912A Unspecified injury of left ankle, initial encounter (principal); X58.XXXA Exposure to other specified factors, initial encounter; Z90.49 Acquired absence of other specified parts of digestive tract; Z86.718 Personal history of other venous thrombosis and embolism
CPT/HCPCS: 99283; 73610; L4350; J3490

== ENCOUNTER 2018-08-17 08:26 | Emergency (ER) | payer MEDICAID ==
[2018-08-17] MEDS ORDERED: HYDROMORPHONE HCL INJ/PF 2 MG/ML AMPULE IV ONE ×2 (09:22→11:31)
[2018-08-17] MEDS ORDERED: NORMAL SALINE 1000 ML 1,000 ML IV ONE (09:22)
[2018-08-17] MEDS ORDERED: KETOROLAC TROMETHAMINE INJ/PF 30 MG/1 ML SDV IV ONE (09:22)
[2018-08-17 09:30] LABS: HEMATOCRIT 29.1 % (36.0-47.0); HEMOGLOBIN 10.2 g/dL (12.0-15.5); MEAN CORPUSCULAR HEMOGLOBIN 35.9 pg (27.0-33.4); MEAN CORPUSCULAR HGB CONC 35.2 g/dL (32.0-36.0); PLATELET COUNT 307 10^3/uL (150-450); RED BLOOD COUNT 2.85 10^6/uL (3.72-5.28); RED CELL DISTRIBUTION WIDTH 17.4 % (11.5-14.0); WHITE BLOOD COUNT 14.2 10^3/uL (4.0-10.5)
[2018-08-17 09:42] LABS: ALANINE AMINOTRANSFERASE 20 U/L (9-52); ALKALINE PHOSPHATASE 57 U/L (38-126); ANION GAP 10 (5-19); ASPARTATE AMINO TRANSFERASE 22 U/L (14-36); BILIRUBIN,DIRECT 0.2 mg/dL (0.0-0.4); BLOOD UREA NITROGEN 9 mg/dL (7-20); CALCIUM 9.3 mg/dL (8.4-10.2); CARBON DIOXIDE 24 mmol/L (22-30); CHLORIDE 110 mmol/L (98-107); GLUCOSE 113 mg/dL (75-110); POTASSIUM 4.1 mmol/L (3.6-5.0); SODIUM 143.7 mmol/L (137-145); TOTAL PROTEIN 7.2 g/dL (6.3-8.2)
--- NOTE | 2018-08-17 09:46 | RADIOLOGY REPORT (SQ) ---
EXAM DESCRIPTION: CHEST 2 VIEWS COMPLETED DATE/TIME: 08/17/2018 9:34 am REASON FOR STUDY: chest pain COMPARISON: 07/12/2018 EXAM PARAMETERS: NUMBER OF VIEWS: two views TECHNIQUE: Digital Frontal and Lateral radiographic views of the chest acquired. RADIATION DOSE: NA LIMITATIONS: none FINDINGS: LUNGS AND PLEURA: No opacities, masses or pneumothorax. No pleural effusion. MEDIASTINUM AND HILAR STRUCTURES: No masses or contour abnormalities. HEART AND VASCULAR STRUCTURES: Heart normal size. No evidence for failure. BONES: The osseous structures are stable in appearance. HARDWARE: Right [id number] catheter, stable finding. OTHER: Prior cholecystectomy. IMPRESSION: 1. No significant interval changes since the prior examination dated 07/12/2018. No acu te findings. TECHNICAL DOCUMENTATION: JOB ID: [id number] [employer]- All Rights Reserved Reading location - IP/workstation name: [email or web address]
[2018-08-17 09:56] LABS: APPEARANCE,URINE CLEAR; BILIRUBIN,URINE NEGATIVE (NEGATIVE); COLOR,URINE YELLOW; GLUCOSE, URINE NEGATIVE (NEGATIVE); KETONES,URINE NEGATIVE (NEGATIVE); LEUKOCYTE ESTERASE,URINE NEGATIVE (NEGATIVE); NITRITE,URINE NEGATIVE (NEGATIVE); PROTEIN,URINE NEGATIVE (NEGATIVE); URINE SPECIFIC GRAVITY 1.012; UROBILINOGEN,URINE NEGATIVE mg/dL (<2.0)
[2018-08-17 10:20] LABS: MEAN CORPUSCULAR VOLUME 102 fl (80-97)
[2018-08-17 10:24] LABS: ABSOLUTE LYMPHOCYTES# (MANUAL) 2.4 10^3/uL (0.5-4.7); ABSOLUTE MONOCYTES # (MANUAL) 0.1 10^3/uL (0.1-1.4); ABSOLUTE NEUTROPHILS# (MANUAL) 10.9 10^3/uL (1.7-8.2); BASOPHILS % (MANUAL) 2 % (0-2); EOSINOPHILS % (MANUAL) 3 % (0-6); LYMPHOCYTES % (MANUAL) 17 % (13-45); MONOCYTES % (MANUAL) 1 % (3-13); SEGMENTED NEUTROPHILS % (MAN) 77 % (42-78); TOTAL CELLS COUNTED 100
[2018-08-17 10:25] LABS: ANISOCYTOSIS 1+; POLYCHROMASIA SLIGHT; SICKLE RED CELLS SLIGHT; TARGET CELLS SLIGHT; TOXIC GRANULATION SLIGHT; TOXIC VACUOLATION PRESENT
[2018-08-17 10:26] LABS: BURR CELLS SLIGHT; PLATELET CLUMPS PRESENT; PLATELET COMMENT ADEQUATE; POIKILOCYTOSIS 1+
[2018-08-17 11:24] LABS: ABSOLUTE RETICS # 0.194 10^6/uL (0.028-0.122); RETICULOCYTE COUNT (AUTO) 6.98 % (0.66-2.85)
[2018-08-17 14:04] VITALS: BP 114/58
--- NOTE | 2018-08-17 14:09 | ER Document Report ---
ED General - General Chief Complaint: Sickle Cell Crisis Stated Complaint: SICKLE CELL CRISIS Time Seen by Provider: 08/17/18 09:11 Primary Care Provider: JOIE MOREIRA MD [Primary Care Provider] - Follow up as needed TRAVEL OUTSIDE OF THE [place] IN LAST 30 DAYS: No - HPI Notes: Patient is a 23-year-old female with a history of sickle cell disease who presents to the emergency department for evaluation of chest pain. She states is been present for about the last week. Is been worsening over the last 2 days. She describes it as a tightness. It does not radiate. She states it seems to be worse with deep breaths, but she denies carter shortness of breath. She states she is taking her medications as prescribed. No nausea or vomiting. No coughing. - Related Data Allergies/Adverse Reactions: morphine Allergy (Severe, Verified 07/13/18 05:45) RASH,SWELLING jacob peppers Adverse Reaction (Severe, Uncoded 07/13/18 05:45) throat closes Past Medical History - General Information source: Patient - Social History Smoking Status: Former Smoker Chew tobacco use (# tins/day): No Frequency of alcohol use: Social Drug Abuse: None Family History: Other - Sickle cell disease and sickle cell trait, asthma Patient has suicidal ideation: No Patient has homicidal ideation: No - Past Medical History Cardiac Medical History: Reports: Hx DVT - RUE s/p port placement Pulmonary Medical History: Reports: Hx Asthma, Hx Bronchitis - once in past per patient, Hx Pneumonia - 2014 Neurological Medical History: Endocrine Medical History: Denies: Hx Diabetes Mellitus Type 1, Hx Diabetes Me llitus Type 2 Renal/ Medical History: Denies: Hx Peritoneal Dialysis GI Medical History: Musculoskeletal Medical History: Reports Hx Musculoskeletal Trauma Psychiatric Medical History: Reports: Hx Anxiety, Hx Depression - [facility] Admission 05/14/2016 Past Surgical History: Reports: Hx Cholecystectomy - 06/28/2015, Hx Vascular Surgery - port put in December,, Other - Port-A-Cath in right upper chest - Immunizations Immunizations up to date: Yes Hx Diphtheria, Pertussis, Tetanus Vaccination: Yes Review of Systems - Review of Systems Constitutional: See HPI EENT: No symptoms reported Cardiovascular: See HPI Respiratory: No symptoms reported Gastrointestinal: No symptoms reported Genitourinary: No symptoms reported Musculoskeletal: No symptoms reported Skin: No symptoms reported Neurological/Psychological: No symptoms reported Physical Exam - Vital signs Vitals: Resp BP Pulse Ox 18 113/62 98 08/17/18 09:00 08/17/18 09:00 08/17/18 09:00 - Notes Notes: Vital signs reviewed, please refer to chart. Head is normocephalic, atraumatic. Pupils equal round, reactive to light. Neck is supple without meningismus. Heart is regular rate and rhythm. Lungs are clear to auscultation bilaterally. Chest wall is mildly tender to early, chest wall excursion is equal bilaterally. Abdomen is soft, nontender, normoactive bowel sounds throughout. Extremities without cyanosis, clubbing. Posterior calves are nontender. Peripheral pulses are equal. Skin is warm and dry. Patient is awake, alert, neurological exam is nonfocal. Course - Re-evaluation Re-evalutation: 08/17/18 14:07 Patient presents emergency department for evaluation. She has a known history of sickle cell anemia. Laboratory investigations were obtained. Patient was medicated with Toradol and Dilaudid. She did have significant improvement. Her laboratory investigations showed anemia and a mildly elevated reticulocyte count. Otherwise are unremarkable. Imaging was unremarkable. Nursing was notified by pharmacy that she has not filled some of her medications in some time. Patient again insist that she is been taking her medications as prescribed, states she does have some to pickle processor in the pharmacy today. I did speak to her lead security officer, Dr. Moreira regarding this. He agrees that work-up here is essentially benign. He recommends discharge and close follow-up. The importance of taking her regular medications as prescribed was stressed to the patient and she voiced understanding. She is to return to the ED with worsening or new concerning symptoms. - Vital Signs Vital signs: Temp Pulse Resp BP Pulse Ox 17 114/58 L 98 08/17/18 14:00 08/17/18 14:00 08/17/18 14:00 - Laboratory Result Diagrams: 08/17/18 09:06 08/17/18 09:06 Laboratory results interpreted by me: 08/17/18 08/17/18 08/17/18 09:06 09:06 09:06 WBC 14.2 H RBC 2.85 L Hgb 10.2 L Hct 29.1 L MCV 102 H D MCH 35.9 H RDW 17.4 H Monocytes % (Manual) 1 L Abs Neuts (Manual) 10.9 H Abs Basophils (Manual) 0.3 H Retic Count (auto) 6.98 H Absolute Retic 0.194 H Chloride 110 H Glucose 113 H Total Bilirubin 4.0 H Discharge - Discharge Clinical Impression: Chest pain, Sickle cell anemia Condition: Stable Disposition: HOME, SELF-CARE Instructions: Sickle Cell Crisis ([facility]) Additional Instructions: Rest, stay well-hydrated. Take your medications at home as prescribed. Follow- up with Dr. Moreira in the next week. Return to the emergency department with worsening or new concerning symptoms of any sort. Referrals: JOIE MOREIRA MD [Primary Care Provider] - Follow up as needed
--- NOTE | 2018-08-19 10:22 | EKG REPORT ---
SEVERITY:- NORMAL ECG - SINUS RHYTHM : Confirmed by: Nathan Lopez 19-Aug-2018 10:22:14
== END 2018-08-17 14:32 | disposition home or self-care (01) ==
LOC: ER 08:26
DX: R07.9 Chest pain, unspecified (principal); D57.00 Hb-SS disease with crisis, unspecified; Z87.891 Personal history of nicotine dependence; J45.909 Unspecified asthma, uncomplicated
CPT/HCPCS: 93005; 36591; 96376; 99284; 96361; 96374; 96375; 36415; 85025; 85045; 80053; 81001; 71046; 93010; J1885; J1170; J7030; J1642

== ENCOUNTER 2018-08-30 23:26 | Emergency (ER) | payer MEDICAID ==
[2018-08-31 01:44] LABS: ABSOLUTE BASOPHILS # (AUTO) 0.2 10^3/uL (0.0-0.2); ABSOLUTE EOSINOPHILS # (AUTO) 0.4 10^3/uL (0.0-0.6); ABSOLUTE MONOCYTES (AUTO) 1.3 10^3/uL (0.1-1.4); ABSOLUTE NEUT (AUTO) 6.3 10^3/uL (1.7-8.2); BASOPHILS % (AUTO) 1.9 % (0-2); HEMOGLOBIN 8.7 g/dL (12.0-15.5); LYMPHOCYTES % (AUTO) 32.7 % (13-45); MEAN CORPUSCULAR HEMOGLOBIN 36.3 pg (27.0-33.4); MEAN CORPUSCULAR HGB CONC 36.1 g/dL (32.0-36.0); MEAN CORPUSCULAR VOLUME 101 fl (80-97); MONOCYTES % (AUTO) 10.5 % (3-13); PLATELET COUNT 467 10^3/uL (150-450); RED BLOOD COUNT 2.39 10^6/uL (3.72-5.28); RED CELL DISTRIBUTION WIDTH 17.6 % (11.5-14.0); SEGMENTED NEUTROPHILS % (AUTO) 51.9 % (42-78); TOTAL CELLS COUNTED % (AUTO) 100 %; WHITE BLOOD COUNT 12.1 10^3/uL (4.0-10.5)
[2018-08-31 01:58] LABS: ALANINE AMINOTRANSFERASE 22 U/L (9-52); ALBUMIN 3.6 g/dL (3.5-5.0); ALKALINE PHOSPHATASE 59 U/L (38-126); ANION GAP 9 (5-19); ASPARTATE AMINO TRANSFERASE 24 U/L (14-36); BILIRUBIN,DIRECT 0.4 mg/dL (0.0-0.4); BLOOD UREA NITROGEN 8 mg/dL (7-20); CALCIUM 7.8 mg/dL (8.4-10.2); CARBON DIOXIDE 20 mmol/L (22-30); CHLORIDE 115 mmol/L (98-107); GLUCOSE 83 mg/dL (75-110); POTASSIUM 3.4 mmol/L (3.6-5.0); SODIUM 144.4 mmol/L (137-145); TOTAL PROTEIN 6.9 g/dL (6.3-8.2)
[2018-08-31 01:59] LABS: ANISOCYTOSIS 2+; PLATELET COMMENT INCREASED; POLYCHROMASIA SLIGHT; SICKLE RED CELLS 1+; TARGET CELLS 2+
[2018-08-31] MEDS ORDERED: HYDROMORPHONE HCL INJ/PF 2 MG/ML AMPULE IV ONE (02:07)
[2018-08-31] MEDS ORDERED: NORMAL SALINE 1000 ML 1,000 ML IV ONE (02:07)
[2018-08-31 02:16] LABS: RETICULOCYTE COUNT (AUTO) 8.66 % (0.66-2.85)
[2018-08-31 02:17] LABS: ABSOLUTE RETICS # 0.206 10^6/uL (0.028-0.122)
[2018-08-31] MEDS ORDERED: CALCIUM GLUCONATE 1000 MG/10 ML INJ IV ONE (02:29)
[2018-08-31] MEDS ORDERED: ONDANSETRON HCL INJ/PF 4 MG/2 ML SDV IV ONE (02:29)
[2018-08-31 03:18] LABS: APPEARANCE,URINE CLEAR; BILIRUBIN,URINE NEGATIVE (NEGATIVE); COLOR,URINE YELLOW; GLUCOSE, URINE NEGATIVE (NEGATIVE); KETONES,URINE NEGATIVE (NEGATIVE); LEUKOCYTE ESTERASE,URINE TRACE (NEGATIVE); NITRITE,URINE NEGATIVE (NEGATIVE); PROTEIN,URINE NEGATIVE (NEGATIVE); URINE SPECIFIC GRAVITY 1.011
--- NOTE | 2018-08-31 03:28 | RADIOLOGY REPORT (SQ) ---
EXAM DESCRIPTION: XR CHEST 2 VIEWS COMPLETED DATE/TME: 08/31/2018 02:29 CLINICAL HISTORY: 23 years, Female, chest pain, sickle cell COMPARISON: 07/08/2018 chest NUMBER OF VIEWS: 2 TECHNIQUE: 2 views of the chest LIMITATIONS: None. FINDINGS: The heart size is normal. [id number] catheter in place. Lungs are clear. No pneumothorax IMPRESSION: No acute cardiopulmonary process copyright 2010 [employer]- All Rights Reserved
[2018-08-31 06:39] VITALS: BP 108/49
--- NOTE | 2018-08-31 07:29 | EKG REPORT ---
SEVERITY:- NORMAL ECG - SINUS RHYTHM : Confirmed by: Kris Baker MD 31-Aug-2018 07:27:23
--- NOTE | 2018-08-31 07:38 | ER Document Report ---
Entered by BRANDON CASTRO SCRIBE 08/31/18 0236 Acting as scribe for:AUSTIN RON DO ED General - General Chief Complaint: Sickle Cell Crisis Stated Complaint: SICKLE CELL PAIN Time Seen by Provider: 08/31/18 02:03 Primary Care Provider: JOIE BAUM MD [Primary Care Provider] - Follow up as needed Mode of Arrival: Ambulatory Information source: Patient Notes: Patient is a 23 year old female with sickle cell anemia presents to the emergency department complaining of back and chest pain. Patient states "I think I'm dehydrated, I've been having fun in the heat". She states her symptoms feel similar to her previous sickle cell crisis although not as severe further stating "it feels like a minor crisis". Patient states Dilaudid in the past has relieved some of her pain in the oral Dilaudid at home relieve some of her pain but not all of it. She also complains of nausea, she denies any hemautria, dysuria, blood in stool, vomiting or fevers. Patient's natural gas engineer is Dr. Baum. Her PCP is Varsha Elena. TRAVEL OUTSIDE OF THE [place] IN LAST 30 DAYS: No - Related Data Allergies/Adverse Reactions: morphine Allergy (Severe, Verified 07/13/18 05:45) RASH,SWELLING jacob peppers Adverse Reaction (Severe, Uncoded 07/13/18 05:45) throat closes Past Medical History - General Information source: Patient - Social History Smoking Status: Never Smoker Frequency of alcohol use: None Drug Abuse: None Family History: Other - Sickle cell disease and sickle cell trait, asthma Patient has suicidal ideation: No Patient has homicidal ideation: No - Past Medical History Cardiac Medical History: Reports: Hx DVT - RUE s/p port placement Pulmonary Medical History: Reports: Hx Asthma, Hx Bronchitis - once in past per patient, Hx Pneumonia - 2014 Neurological Medical History: Endocrine Medical History: Denies: Hx Diabetes Mellitus Type 1, Hx Diabetes Mellitus Type 2 Renal/ Medical History: Denies: Hx Peritoneal Dialysis GI Medical History: Musculoskeletal Medical History: Reports Hx Musculoskeletal Trauma Psychiatric Medical History: Reports: Hx Anxiety, Hx Depression - [facility] Admission 05/14/2016 Past Surgical History: Reports: Hx Cholecystectomy - 06/28/2015, Hx Vascular Surgery - port put in October, 2017, Other - Port-A-Cath in right upper chest - Immunizations Immunizations up to date: Yes Hx Diphtheria, Pertussis, Tetanus Vaccination: Yes Review of Systems - Review of Systems Constitutional: No symptoms reported EENT: No symptoms reported Cardiovascular: See HPI, Chest pain Respiratory: No symptoms reported Gastrointestinal: No symptoms reported Genitourinary: No symptoms reported Female Genitourinary: No symptoms reported Musculoskeletal: See HPI, Back pain Skin: No symptoms reported Hematologic/Lymphatic: No symptoms reported Neurological/Psychological: No symptoms reported -: Yes All other systems reviewed and negative Physical Exam - Vital signs Vitals: Temp Pulse Resp BP Pulse Ox 98.3 F 87 18 106/60 96 08/30/18 23:28 08/30/18 23:28 08/30/18 23:28 08/30/18 23:28 08/30/18 23:28 - Notes Notes: GENERAL: Alert, interacts well. No acute distress. HEAD: Normocephalic, atraumatic. EYES: Pupils equal, round, and reactive to light. Extraocular movements intact. ENT: Oral mucosa moist, tongue midline. NECK: Full range of motion. Supple. Trachea midline. LUNGS: Clear to auscultation bilaterally, no wheezes, rales, or rhonchi. No respiratory distress. Port-A-Cath in right anterior chest wall. HEART: Regular rate and rhythm. No murmurs, gallops, or rubs. ABDOMEN: Soft, non-tender. Non-distended. Bowel sounds present in all 4 quadrants. No guarding, rigidity, or rebound. EXTREMITIES: Moves all 4 extremities spontaneously. No edema, radial and dorsalis pedis pulses 2/4 bilaterally. No cyanosis. NEUROLOGICAL: Alert and oriented x3. Normal speech. PSYCH: Normal affect, normal mood. SKIN: Warm, dry, normal turgor. No rashes or lesions noted. Course - Re-evaluation Re-evalutation: 08/31/18 06:22 CBC shows leukocytosis at 12.9, anemia with hemoglobin 8.7 which is not low enough to need transfusion at this point, platelets slightly elevated at 467, absolute and regular reticulocyte count are both elevated, chemistries review slight low potassium at 3.4, CO2 is low at 20, anion gap is normal, calcium is low at 7.8 but ionized calcium is normal at 1.18, total bilirubin is chronically elevated at 4.0, test is negative, urinalysis shows trace leukocyte e sterase and trace bacteria 1 squamous epithelial cell, suspect contamination, this is sent for culture. Chest x-ray reveals no acute process, no pulmonary edema. Patient is feeling much better after a milligram of Dilaudid and IV fluids as well as some calcium gluconate. Patient will be discharged to home and provided with a prescription for Zofran in case her nausea continues. - Vital Signs Vital signs: Temp Pulse Resp BP Pulse Ox 97.6 F 74 16 108/49 L 98 08/31/18 06:36 08/31/18 06:36 08/31/18 06:36 08/31/18 06:36 08/31/18 06:36 - Laboratory Result Diagrams: 08/31/18 01:26 08/31/18 01:44 Laboratory results interpreted by me: 08/31/18 08/31/18 08/31/18 01:26 01:44 03:00 WBC 12.1 H RBC 2.39 L Hgb 8.7 L Hct 24.0 L MCV 101 H MCH 36.3 H MCHC 36.1 H RDW 17.6 H Plt Count 467 H Retic Count (auto) 8.66 H Absolute Retic 0.206 H Potassium 3.4 L Chloride 115 H Carbon Dioxide 20 L Creatinine 0.45 L Calcium 7.8 L Total Bilirubin 4.0 H Urine Urobilinogen 2.0 H Ur Leukocyte Esterase TRACE H - EKG Interpretation by Me Additional EKG results interpreted by me: 08/31/18 06:24 EKG shows sinus bradycardia at a rate of 21, normal axis, normal intervals, no ST segment elevations or depressions, no T wave inversions per my interpretation. Discharge - Discharge Clinical Impression: Vaso-occlusive sickle cell crisis, Acute sickle cell crisis, Hypokalemia, Hypocalcemia, Mild dehydration Condition: Stable Disposition: HOME, SELF-CARE Additional Instructions: Please drink plenty of fluids. Return if your pain worsens. Use Zofran for nausea. Prescriptions: Ondansetron [Zofran Odt 4 mg Tablet] 1 - 2 tab PO Q4H PRN #15 tab.rapdis PRN Reason: For Nausea/Vomiting Referrals: JOIE BAUM MD [Primary Care Provider] - Follow up as needed I personally performed the services described in the documentation, reviewed and edited the documentation which was dictated to the scribe in my presence, and it accurately records my words and actions.
== END 2018-08-31 06:45 | disposition home or self-care (01) ==
LOC: ER 23:26
DX: D57.00 Hb-SS disease with crisis, unspecified (principal); E86.0 Dehydration; E87.6 Hypokalemia; E83.51 Hypocalcemia; R11.0 Nausea; M54.9 Dorsalgia, unspecified; R07.9 Chest pain, unspecified; D72.829 Elevated white blood cell count, unspecified; R00.1 Bradycardia, unspecified; J45.909 Unspecified asthma, uncomplicated; Z88.5 Allergy status to narcotic agent
CPT/HCPCS: 93005; 36591; 99284; 96361; 96374; 96375; 36415; 84703; 85025; 85045; 80053; 81001; 82330; 71046; 93010; J0610; J1170; J2405; J7030; J1642

== ENCOUNTER 2018-08-31 14:39 | Emergency (ER) | payer MEDICAID ==
--- NOTE | 2018-08-31 15:30 | ER Document Report ---
ED Medical Screen (RME) - General Chief Complaint: Sickle Cell Crisis Stated Complaint: BACK PAIN Time Seen by Provider: 08/31/18 15:25 Primary Care Provider: JOIE MOREIRA MD [Primary Care Provider] - Follow up as needed Mode of Arrival: Ambulatory Information source: Patient Notes: Patient presents emergency department complaints of sickle cell crisis. Patient was evaluated and treated in the emergency department last night left early this morning after having fun in the sun and thinking she was dehydrated. She reports she felt better when she left but when she woke up she felt 2 times worse. Complains of low back pain. No other symptoms. Reports she contacted Dr. Salas and was told she needed to come the emergency department or wait for her infusion tomorrow. She decided to come to emergency department. I have greeted and performed a rapid initial assessment of this patient. A comprehensive ED assessment and evaluation of the patient, analysis of test results and completion of the medical decision making process will be conducted by additional ED providers. Dictation of this chart was performed using voice recognition software; therefore, there may be some unintended grammatical errors. TRAVEL OUTSIDE OF THE [place] IN LAST 30 DAYS: No - Related Data Allergies/Adverse Reactions: morphine Allergy (Severe, Verified 08/31/18 14:39) RASH,SWELLING jacob peppers Adverse Reaction (Severe, Uncoded 08/31/18 14:39) throat closes Past Medical History - Social History Chew tobacco use (# tins/day): No Frequency of alcohol use: None Drug Abuse: None Family history: Reviewed & Not Pertinent, Other - Pt was adopted. Does not know family history - Past Medical History Cardiac Medical History: Reports: Hx DVT - RUE s/p port placement Pulmonary Medical History: Reports: Hx Asthma, Hx Bronchitis - once in past per patient, Hx Pneumonia - 2014 Neurological Medical History: Endocrine Medical History: Denies: Hx Diabetes Mellitus Type 1, Hx Diabetes Mellitus Type 2 Renal/ Medical History: Denies: Hx Peritoneal Dialysis GI Medical History: Musculoskeltal Medical History: Reports Hx Musculoskeletal Trauma Psychiatric Medical History: Reports: Hx Anxiety, Hx Depression - [facility] Admission 05/14/2016 Past Surgical History: Reports: Hx Cholecystectomy - 06/28/2015, Hx Vascular Surgery - port put in December,, Other - Port-A-Cath in right upper chest - Immunizations Immunizations up to date: Yes Hx Diphtheria, Pertussis, Tetanus Vaccination: Yes History of Influenza Vaccine for 12/2016 - 05/2017 Season: Yes Influenza Administration Date for 12/2016 - 05/2017 Season: 03/11/17 Physical Exam - Vital signs Vitals: Temp Pulse Resp BP Pulse Ox 99.2 F 80 18 110/55 L 94 08/31/18 14:42 08/31/18 14:42 08/31/18 14:42 08/31/18 14:42 08/31/18 14:42 Course - Vital Signs Vital signs: Temp Pulse Resp BP Pulse Ox 99.2 F 80 18 110/55 L 94 08/31/18 14:42 08/31/18 14:42 08/31/18 14:42 08/31/18 14:42 08/31/18 14:42 Doctor's Discharge - Discharge Referrals: JOIE MOREIRA MD [Primary Care Provider] - Follow up as needed
[2018-08-31 15:56] LABS: APPEARANCE,URINE CLEAR; BILIRUBIN,URINE NEGATIVE (NEGATIVE); COLOR,URINE YELLOW; GLUCOSE, URINE NEGATIVE (NEGATIVE); KETONES,URINE NEGATIVE (NEGATIVE); LEUKOCYTE ESTERASE,URINE NEGATIVE (NEGATIVE); NITRITE,URINE NEGATIVE (NEGATIVE); PROTEIN,URINE NEGATIVE (NEGATIVE); URINE SPECIFIC GRAVITY 1.009
[2018-08-31 17:34] LABS: HEMATOCRIT 26.2 % (36.0-47.0); HEMOGLOBIN 9.5 g/dL (12.0-15.5); MEAN CORPUSCULAR HEMOGLOBIN 36.5 pg (27.0-33.4); MEAN CORPUSCULAR HGB CONC 36.4 g/dL (32.0-36.0); MEAN CORPUSCULAR VOLUME 100 fl (80-97); PLATELET COUNT 498 10^3/uL (150-450); RED BLOOD COUNT 2.61 10^6/uL (3.72-5.28); RED CELL DISTRIBUTION WIDTH 17.3 % (11.5-14.0); RETICULOCYTE COUNT (AUTO) 8.43 % (0.66-2.85); WHITE BLOOD COUNT 10.1 10^3/uL (4.0-10.5)
[2018-08-31 17:40] LABS: ALANINE AMINOTRANSFERASE 16 U/L (9-52); ALKALINE PHOSPHATASE 47 U/L (38-126); ANION GAP 9 (5-19); ASPARTATE AMINO TRANSFERASE 23 U/L (14-36); BILIRUBIN,DIRECT 0.4 mg/dL (0.0-0.4); BILIRUBIN,TOTAL 5.1 mg/dL (0.2-1.3); BLOOD UREA NITROGEN 6 mg/dL (7-20); CALCIUM 9.6 mg/dL (8.4-10.2); CARBON DIOXIDE 23 mmol/L (22-30); CHLORIDE 109 mmol/L (98-107); GLUCOSE 113 mg/dL (75-110); POTASSIUM 3.9 mmol/L (3.6-5.0); TOTAL PROTEIN 7.2 g/dL (6.3-8.2)
[2018-08-31 17:53] LABS: ABSOLUTE LYMPHOCYTES# (MANUAL) 4.7 10^3/uL (0.5-4.7); ABSOLUTE MONOCYTES # (MANUAL) 0.1 10^3/uL (0.1-1.4); ABSOLUTE NEUTROPHILS# (MANUAL) 5.2 10^3/uL (1.7-8.2); ANISOCYTOSIS 1+; BASOPHILS % (MANUAL) 0 % (0-2); EOSINOPHILS % (MANUAL) 1 % (0-6); LYMPHOCYTES % (MANUAL) 47 % (13-45); MONOCYTES % (MANUAL) 1 % (3-13); NUCLEATED RED BLOOD CELLS 3 /100 WBC (0); PLATELET COMMENT INCREASED; SEGMENTED NEUTROPHILS % (MAN) 51 % (42-78); TOTAL CELLS COUNTED 100
[2018-08-31 17:56] LABS: OVALOCYTES SLIGHT; POIKILOCYTOSIS SLIGHT
[2018-08-31 17:57] LABS: POLYCHROMASIA SLIGHT
[2018-08-31 17:58] LABS: SICKLE RED CELLS SLIGHT; TARGET CELLS 1+
[2018-08-31] MEDS ORDERED: KETOROLAC TROMETHAMINE INJ/PF 30 MG/1 ML SDV IV ONE (18:14)
[2018-08-31] MEDS ORDERED: HYDROMORPHONE HCL INJ/PF 2 MG/ML AMPULE IV ONE ×2 (18:14→20:41)
[2018-08-31] MEDS ORDERED: NORMAL SALINE 1000 ML 1,000 ML IV ONE (18:15)
--- NOTE | 2018-08-31 19:38 | ER Document Report ---
ED General - General Chief Complaint: Sickle Cell Crisis Stated Complaint: BACK PAIN Time Seen by Provider: 08/31/18 15:25 Primary Care Provider: JOIE MOREIRA MD [Primary Care Provider] - Follow up as needed Mode of Arrival: Ambulatory TRAVEL OUTSIDE OF THE [place] IN LAST 30 DAYS: No - HPI Notes: Patient is a 23-year-old female with a history of sickle cell anemia who presents to the emergency department for evaluation of lower back pain. She act ually was seen earlier today with the same complaint. She had been hydrated medicated, felt improved. She states that she went to sleep at home and awoke "2 times worse." She denies any bowel or bladder incontinence, no saddle anesthesia, no focal numbness or weakness. She has sharp lower back pain that she rates a 10 out of 10. She states she has been taking oral Dilaudid at home with little to no relief. No fevers. No chest pain. No difficulty breathing. - Related Data Allergies/Adverse Reactions: morphine Allergy (Severe, Verified 08/31/18 14:39) RASH,SWELLING jacob peppers Adverse Reaction (Severe, Uncoded 08/31/18 14:39) throat closes Past Medical History - General Information source: Patient - Social History Smoking Status: Never Smoker Chew tobacco use (# tins/day): No Frequency of alcohol use: None Drug Abuse: None Family History: Other - Sickle cell disease and sickle cell trait, asthma Patient has suicidal ideation: No Patient has homicidal ideation: No - Medical History Medical History: Other - Sickle cell - Past Medical History Cardiac Medical History: Reports: Hx DVT - RUE s/p port placement Pulmonary Medical History: Reports: Hx Asthma, Hx Bronchitis - once in past per patient, Hx Pneumonia - 2014 Neurological Medical History: Endocrine Medical History: Denies: Hx Diabetes Mellitus Type 1, Hx Diabetes Mellitus Type 2 Renal/ Medical History: Denies: Hx Peritoneal Dialysis GI Medical History: Musculoskeletal Medical History: Reports Hx Musculoskeletal Trauma Psychiatric Medical History: Reports: Hx Anxiety, Hx Depression - [facility] Admission 05/14/2016 Past Surgical History: Reports: Hx Cholecystectomy - 06/28/2015, Hx Vascular Surgery - port put in December,, Other - Port-A-Cath in right upper chest - Immunizations Immunizations up to date: Yes Hx Diphtheria, Pertussis, Tetanus Vaccination: Yes Review of Systems - Review of Systems Constitutional: No symptoms reported EENT: No symptoms reported Cardiovascular: No symptoms reported Respiratory: No symptoms reported Gastrointestinal: No symptoms reported Genitourinary: No symptoms reported Musculoskeletal: See HPI Skin: No symptoms reported Hematologic/Lymphatic: See HPI Neurological/Psychological: No symptoms reported Physical Exam - Vital signs Vitals: Temp Pulse Resp BP Pulse Ox 99.2 F 80 18 110/55 L 94 08/31/18 14:42 08/31/18 14:42 08/31/18 14:42 08/31/18 14:42 08/31/18 14:42 - Notes Notes: Vital signs reviewed, please refer to chart. Head is normocephalic, atraumatic. Pupils equal round, reactive to light. Neck is supple without meningismus. Heart is regular rate and rhythm. Lungs are clear to auscultation bilaterally. Abdomen is soft, nontender, normoactive bowel sounds throughout. Extremities without cyanosis, clubbing. Posterior calves are nontender. Peripheral pulses are equal. Skin is warm and dry. Patient is awake, alert, neurological exam is nonfocal. Examination of the spine yields no midline tenderness. She has paraspinal musculature tenderness noted throughout the lumbar spine and into the SI joints bilaterally. Negative straight leg raise bilaterally. Strength is plus 5 out of 5 bilateral lower extremities. Patellar and Achilles reflexes are equal. Sensation is intact. Course - Re-evaluation Re-evalutation: 08/31/18 19:37 Patient presents to the emergency department for evaluation. She has a known history of sickle cell anemia. Laboratory investigations were obtained. Labs are largely unremarkable. The patient was given IV hydration, Toradol, Dilaudid. Will reassess for response. 08/31/18 22:13 Patient given another milligram of Dilaudid and feels improved. She is to follow-up with Dr. Moreira. - Vital Signs Vital signs: Temp Pulse Resp BP Pulse Ox 99.2 F 80 18 110/55 L 94 08/31/18 14:42 08/31/18 14:42 08/31/18 14:42 08/31/18 14:42 08/31/18 14:42 - Laboratory Result Diagrams: 08/31/18 17:04 08/31/18 17:04 Laboratory results interpreted by me: 08/31/18 08/31/18 08/31/18 15:40 17:04 17:04 RBC 2.61 L Hgb 9.5 L Hct 26.2 L MCV 100 H MCH 36.5 H MCHC 36.4 H RDW 17.3 H Plt Count 498 H Lymphocytes % (Manual) 47 H Monocytes % (Manual) 1 L Retic Count (auto) 8.43 H Absolute Retic 0.220 H Chloride 109 H BUN 6 L Glucose 113 H Total Bilirubin 5.1 H Urine Urobilinogen 2.0 H Discharge - Discharge Clinical Impression: Acute sickle cell crisis, Back pain Condition: Stable Disposition: HOME, SELF-CARE Instructions: Low Back Pain ([facility]) Additional Instructions: Rest, stay hydrated. Continue your home medications as prescribed. Follow-up with Dr. Moreira this week. Return to the emergency department with worsening or new concerning symptoms. Referrals: JOIE MOREIRA MD [Primary Care Provider] - Follow up as needed
[2018-08-31 23:20] VITALS: BP 100/52
== END 2018-08-31 23:20 | disposition home or self-care (01) ==
LOC: ER 14:39
DX: D57.00 Hb-SS disease with crisis, unspecified (principal); M54.5 Low back pain; J45.909 Unspecified asthma, uncomplicated; Z88.6 Allergy status to analgesic agent
CPT/HCPCS: 36591; 96376; 99284; 96361; 96374; 96375; 36415; 85045; 80053; 81001; J1885; J1170; J7030

== ENCOUNTER 2018-09-01 09:07 | Outpatient (CLI) | payer MEDICAID ==
[2018-09-01 09:26] VITALS: BP 105/53
[2018-09-01] MEDS ORDERED: NORMAL SALINE 1000 ML 1,000 ML IV PRN (09:26)
[2018-09-01] MEDS ORDERED: HYDROMORPHONE HCL INJ/PF 2 MG/ML AMPULE IV PRN (09:26)
== END 2018-09-01 10:38 | disposition home or self-care (01) ==
LOC: II 09:07 → 5TH 09:10 → II 10:38
PROVIDERS: ATTEND Internal Medicine
PROC: 3E0437Z Introduction of Electrolytic and Water Balance Substance into Central Vein, Percutaneous Approach (ICD-10-PCS; principal; 2018-09-01)
PROC: 3E043GC Introduction of Other Therapeutic Substance into Central Vein, Percutaneous Approach (ICD-10-PCS; 2018-09-01)
DX: D57.1 Sickle-cell disease without crisis (principal); E86.0 Dehydration; R52 Pain, unspecified
CPT/HCPCS: 96374; 96360; J1170; J1642; 96361

== ENCOUNTER 2018-09-02 12:44 | Outpatient (CLI) | payer MEDICAID ==
[2018-09-02] MEDS ORDERED: HYDROMORPHONE HCL INJ/PF 2 MG/ML AMPULE IV PRN (13:15)
[2018-09-02] MEDS ORDERED: NORMAL SALINE 1000 ML 1,000 ML IV PRN (13:16)
[2018-09-02 13:35] VITALS: BP 118/50
== END 2018-09-02 14:19 | disposition home or self-care (01) ==
LOC: II 12:44 → 5TH 12:48 → II 14:19
PROVIDERS: ATTEND Internal Medicine
PROC: 3E0437Z Introduction of Electrolytic and Water Balance Substance into Central Vein, Percutaneous Approach (ICD-10-PCS; principal; 2018-09-02)
PROC: 3E043GC Introduction of Other Therapeutic Substance into Central Vein, Percutaneous Approach (ICD-10-PCS; 2018-09-02)
DX: D57.1 Sickle-cell disease without crisis (principal); R52 Pain, unspecified; E86.0 Dehydration
CPT/HCPCS: 96374; 96375; 96360; J1170; J1642; 96361

== ENCOUNTER 2018-09-05 00:26 | Inpatient (IN) | payer MEDICAID ==
[2018-09-05] MEDS ORDERED: HYDROMORPHONE HCL INJ/PF 2 MG/ML AMPULE IV ONE ×2 (04:00→06:17)
[2018-09-05] MEDS ORDERED: ONDANSETRON HCL INJ/PF 4 MG/2 ML SDV IV ONE (04:00)
--- NOTE | 2018-09-05 04:02 | ER Document Report ---
ED Medical Screen (RME) - General Chief Complaint: Sickle Cell Crisis Stated Complaint: BODY PAIN Time Seen by Provider: 09/05/18 03:55 Notes: 23-year-old female with a history of sickle cell anemia chief complaint of 1 week of pain, she states she is worse over the past day. Pain is mainly in her lower back and legs. She denies chest pain, fever, vomiting, headache. Home oxycodone is not working. Follows with local hematology. TRAVEL OUTSIDE OF THE [place] IN LAST 30 DAYS: No - Related Data Allergies/Adverse Reactions: morphine Allergy (Severe, Verified 09/05/18 01:32) RASH,SWELLING jacob peppers Adverse Reaction (Severe, Uncoded 08/31/18 14:39) throat closes Past Medical History - Social History Frequency of alcohol use: Occasional Drug Abuse: None Family history: Reviewed & Not Pertinent, Other - Pt was adopted. Does not know family history - Past Medical History Cardiac Medical History: Reports: Hx DVT - RUE s/p port placement Pulmonary Medical History: Reports: Hx Asthma, Hx Bronchitis - once in past per patient, Hx Pneumonia - 2014 Neurological Medical History: Endocrine Medical History: Denies: Hx Diabetes Mellitus Type 1, Hx Diabetes Mellitus Type 2 Renal/ Medical History: Denies: Hx Peritoneal Dialysis GI Medical History: Musculoskeltal Medical History: Reports Hx Musculoskeletal Trauma Psychiatric Medical History: Reports: Hx Anxiety, Hx Depression - [facility] Admission 05/14/2016 Past Surgical History: Reports: Hx Cholecystectomy - 06/28/2015, Hx Vascular Surgery - port put in December,, Other - Port-A-Cath in right upper chest - Immunizations Immunizations up to date: Yes Hx Diphtheria, Pertussis, Tetanus Vaccination: Yes History of Influenza Vaccine for 12/2016 - 05/2017 Season: Yes Influenza Administration Date for 12/2016 - 05/2017 Season: 03/11/17 Physical Exam - Vital signs Vitals: Temp Pulse Resp BP Pulse Ox 98.5 F 86 22 H 127/66 H 96 09/05/18 00:40 09/05/18 00:40 09/05/18 00:40 09/05/18 00:40 09/05/18 00:40 - Respiratory Respiratory status: No respiratory distress Breath sounds: No: Decreased air movement, Wheezing - Cardiovascular Rhythm: Regular. No: Tachycardia Heart sounds: Normal auscultation, S1 appreciated, S2 appreciated - Extremities General lower extremity: Normal inspection, Normal color. No: Edema Course - Re-evaluation Re-evalutation: I have greeted and performed a rapid initial assessment of this patient. A comprehensive ED assessment and evaluation of the patient, analysis of test results and completion of the medical decision making process will be conducted by additional ED providers. - Vital Signs Vital signs: Temp Pulse Resp BP Pulse Ox 98.5 F 86 22 H 127/66 H 96 09/05/18 00:40 09/05/18 00:40 09/05/18 00:40 09/05/18 00:40 09/05/18 00:40
[2018-09-05 04:33] LABS: ABSOLUTE BASOPHILS # (AUTO) 0.2 10^3/uL (0.0-0.2); ABSOLUTE EOSINOPHILS # (AUTO) 0.7 10^3/uL (0.0-0.6); ABSOLUTE LYMPHOCYTES (AUTO) 3.5 10^3/uL (0.5-4.7); ABSOLUTE NEUT (AUTO) 10.3 10^3/uL (1.7-8.2); APPEARANCE,URINE CLEAR; BASOPHILS % (AUTO) 1.6 % (0-2); BILIRUBIN,URINE NEGATIVE (NEGATIVE); COLOR,URINE YELLOW; EOSINOPHILS % (AUTO) 4.2 % (0-6); GLUCOSE, URINE NEGATIVE (NEGATIVE); HEMATOCRIT 25.8 % (36.0-47.0); HEMOGLOBIN 9.4 g/dL (12.0-15.5); KETONES,URINE NEGATIVE (NEGATIVE); LEUKOCYTE ESTERASE,URINE NEGATIVE (NEGATIVE); LYMPHOCYTES % (AUTO) 22.3 % (13-45); MEAN CORPUSCULAR HEMOGLOBIN 36.5 pg (27.0-33.4); MEAN CORPUSCULAR HGB CONC 36.4 g/dL (32.0-36.0); MEAN CORPUSCULAR VOLUME 100 fl (80-97); MONOCYTES % (AUTO) 6.4 % (3-13); NITRITE,URINE NEGATIVE (NEGATIVE); PLATELET COUNT 436 10^3/uL (150-450); PROTEIN,URINE NEGATIVE (NEGATIVE); RED BLOOD COUNT 2.58 10^6/uL (3.72-5.28); RED CELL DISTRIBUTION WIDTH 17.3 % (11.5-14.0); RETICULOCYTE COUNT (AUTO) 8.92 % (0.66-2.85); SEGMENTED NEUTROPHILS % (AUTO) 65.5 % (42-78); TOTAL CELLS COUNTED % (AUTO) 100 %; WHITE BLOOD COUNT 15.8 10^3/uL (4.0-10.5)
[2018-09-05 04:47] LABS: ALANINE AMINOTRANSFERASE 16 U/L (9-52); ALKALINE PHOSPHATASE 71 U/L (38-126); ANION GAP 10 (5-19); ASPARTATE AMINO TRANSFERASE 25 U/L (14-36); BILIRUBIN,DIRECT 0.3 mg/dL (0.0-0.4); BILIRUBIN,TOTAL 4.5 mg/dL (0.2-1.3); BLOOD UREA NITROGEN 9 mg/dL (7-20); CALCIUM 9.4 mg/dL (8.4-10.2); CARBON DIOXIDE 24 mmol/L (22-30); CHLORIDE 108 mmol/L (98-107); GLUCOSE 93 mg/dL (75-110); POTASSIUM 3.7 mmol/L (3.6-5.0); TOTAL PROTEIN 7.1 g/dL (6.3-8.2)
[2018-09-05 05:01] LABS: ANISOCYTOSIS 2+; PLATELET COMMENT ADEQUATE; POLYCHROMASIA 1+; SICKLE RED CELLS 1+; TARGET CELLS 2+
[2018-09-05] MEDS ORDERED: IPRATROPIUM/ALBUTEROL 0.5-2.5 MG/3 ML AMPUL NEB ONE (06:17)
[2018-09-05] MEDS ORDERED: NORMAL SALINE 1000 ML 1,000 ML IV ONE ×2 (06:17→08:24)
--- NOTE | 2018-09-05 06:52 | ER Document Report ---
ED General - General Chief Complaint: Sickle Cell Crisis Stated Complaint: BODY PAIN Time Seen by Provider: 09/05/18 03:55 TRAVEL OUTSIDE OF THE [place] IN LAST 30 DAYS: No - HPI Notes: Patient is a 23-year-old female that presents to the emergency department for chief complaint of left leg and low back pain. Patient reports history of sickle cell anemia. She states that her pain is usually located in her left leg below her knee and in her low back. Her pain today is consistent with her sickle cell pain. She has taken her oxycodone 5 mg at home with minimal relief. She states she was recently switched from Dilaudid oral to oxycodone by Dr. Baum. Patient denies any fevers or chills. She does report shortness of breath with ambulation and coughing. She states that she does have a history of asthma and her shortness of breath feels consistent with her asthma. She used her home albuterol yesterday with significant relief of her shortness of breath. She denies any chest pain. Her last blood transfusion was about a month and a half ago for hemoglobin of 6. She states she did get relief after pain medication given in triage but is still rather uncomfortable. She denies any injury to her low back or leg. She denies any saddle anesthesia, lower extremity numbness and weakness, or bowel or bladder incontinence. Past Medical History: Sickle cell anemia, asthma, anxiety, depression, history of DVT Past Surgical History: Port-A-Cath placement Social History: Denies drugs alcohol and tobacco Family History: Reviewed and noncontributory for presenting illness Allergies: Reviewed, see documented allergy list. REVIEW OF SYSTEMS: CONSTITUTIONAL : No fever No chills No diaphoresis No recent illness EENT: No vision changes No congestion No sore throat CARDIOVASCULAR: No chest pain No palpitations RESPIRATORY: shortness of breath cough No difficulty breathing GASTROINTESTINAL: No abdominal pain No nausea No vomiting No diarrhea GENITOURINARY: No dysuria No hematuria No difficulty urinating MUSCULOSKELETAL: back pain leg pain No arm pain SKIN: No rashes No lesions LYMPHATIC: No swollen, enlarged glands. NEUROLOGICAL: No lightheadedness No headache No weakness No paresthesias PSYCHIATRIC: No anxiety No depression PHYSICAL EXAMINATION: Vital signs reviewed, nursing noted reviewed. GENERAL: Well-appearing, well-nourished and in no acute distress. HEAD: Atraumatic, normocephalic. EYES: Eyes appear normal, extraocular movements intact, sclera anicteric, conjunctiva are normal. ENT: nares patent, oropharynx clear without exudates. Moist mucous membranes. NECK: Normal range of motion, supple without lymphadenopathy LUNGS: Breath sounds clear to auscultation bilaterally and equal. No wheezes rales or rhonchi. HEART: Regular rate and rhythm without murmurs, +2/4 bilateral DP and PT pulses, normal capillary refill and distal extremities. ABDOMEN: Soft, nontender, normoactive bowel sounds. No rebound, guarding, or rigidity. No masses appreciated. Back: Bilateral paraspinal lumbar tenderness to palpation with no midline spinal tenderness EXTREMITIES: Nontender, good range of motion, no pitting or edema. NEUROLOGICAL: No focal neurological deficits. Moves all extremities spontaneously Motor and sensory grossly intact on exam. PSYCH: Normal mood, normal affect. SKIN: Warm, Dry, normal turgor, no rashes or lesions noted on exposed skin - Related Data Allergies/Adverse Reactions: morphine Allergy (Severe, Verified 09/05/18 01:32) RASH,SWELLING jacob peppers Adverse Reaction (Severe, Uncoded 08/31/18 14:39) throat closes Past Medical History - Social History Smoking Status: Former Smoker Frequency of alcohol use: Occasional Drug Abuse: None Family History: Other - Sickle cell disease and sickle cell trait, asthma Patient has suicidal ideation: No Patient has homicidal ideation: No - Past Medical History Cardiac Medical History: Reports: Hx DVT - RUE s/p port placement Pulmonary Medical History: Reports: Hx Asthma, Hx Bronchitis - once in past per patient, Hx Pneumonia - 2014 Neurological Medical History: Endocrine Medical History: Denies: Hx Diabetes Mellitus Type 1, Hx Diabetes Mellitus Type 2 Renal/ Medical History: Denies: Hx Peritoneal Dialysis GI Medical History: Musculoskeletal Medical History: Reports Hx Musculoskeletal Trauma Psychiatric Medical History: Reports: Hx Anxiety, Hx Depression - Lyla Bai Admission 05/14/2016 Past Surgical History: Reports: Hx Cholecystectomy - 06/28/2015, Hx Vascular Surgery - port put in December,, Other - Port-A-Cath in right upper chest - Immunizations Immunizations up to date: Yes Hx Diphtheria, Pertussis, Tetanus Vaccination: Yes Physical Exam - Vital signs Vitals: Temp Pulse Resp BP Pulse Ox 98.5 F 86 22 H 127/66 H 96 09/05/18 00:40 09/05/18 00:40 09/05/18 00:40 09/05/18 00:40 09/05/18 00:40 Course - Re-evaluation Re-evalutation: 09/05/18 06:51 Vitals reviewed. Nursing notes reviewed. Patient received Zofran and Dilaudid in triage and reports feeling better. She states her pain is still not under control and will be given another dose of Dilaudid as well as IV hydration. Patient is complaining of some shortness of breath and cough and x-ray has been added to her orders. She was given a breathing treatment for symptomatic management. She is in no acute respiratory distress or complaining of chest pain. Patient has elevated retake count and hemoglobin greater than 9. She is not in acute sickle cell crisis requiring blood transfusion. She is otherwise hemodynamically stable and afebrile. 09/05/18 08:27 Patient reevaluated. Her chest x-ray shows no acute cardiopulmonary process including acute chest syndrome. She does appear somnolent from pain medication and her blood pressure has decreased to 89. She was ordered a second liter of IV fluids. Patient states her pain is still out of control and her leg is "thumping". Patient was ordered Toradol for further pain management given her hypotension Dilaudid will be held at this time. She does not feel comfortable going home and feels that she is requiring admission for further pain control. Patient's care was discussed with Helga Parekh who has accepted admission. Laboratory 09/05/18 09/05/18 09/05/18 04:04 04:04 04:04 WBC 15.8 H RBC 2.58 L Hgb 9.4 L Hct 25.8 L MCV 100 H MCH 36.5 H MCHC 36.4 H RDW 17.3 H Plt Count 436 Seg Neutrophils % 65.5 Lymphocytes % 22.3 Monocytes % 6.4 Eosinophils % 4.2 Basophils % 1.6 Absolute Neutrophils 10.3 H Absolute Lymphocytes 3.5 Absolute Monocytes 1.0 Absolute Eosinophils 0.7 H Absolute Basophils 0.2 Platelet Comment ADEQUATE Polychromasia 1+ Anisocytosis 2+ Macrocytosis 1+ Sickle Cells 1+ Target Cells 2+ Retic Count (auto) 8.92 H Absolute Retic 0.230 H Sodium 142.0 Potassium 3.7 Chloride 108 H Carbon Dioxide 24 Anion Gap 10 BUN 9 Creatinine 0.50 L Est GFR ( Amer) > 60 Est GFR (Non-Af Amer) > 60 Glucose 93 Calcium 9.4 Total Bilirubin 4.5 H Direct Bilirubin 0.3 Neonat Total Bilirubin Not Reportable Neonat Direct Bilirubin Not Reportable Neonat Indirect Bili Not Reportable AST 25 ALT 16 Alkaline Phosphatase 71 Total Protein 7.1 Albumin 4.0 Serum HCG, Qual Urine Color YELLOW Urine Appearance CLEAR Urine pH 7.0 Ur Specific [place] 1.010 Urine Protein NEGATIVE Urine Glucose (UA) NEGATIVE Urine Ketones NEGATIVE Urine Blood NEGATIVE Urine Nitrite NEGATIVE Urine Bilirubin NEGATIVE Urine Urobilinogen 4.0 H Ur Leukocyte Esterase NEGATIVE Urine WBC (Auto) 1 Urine RBC (Auto) 0 Urine Bacteria (Auto) TRACE Squamous Epi Cells Auto <1 Urine Mucus (Auto) RARE Urine Ascorbic Acid NEGATIVE 09/05/18 04:04 WBC RBC Hgb Hct MCV MCH MCHC RDW Plt Count Seg Neutrophils % Lymphocytes % Monocytes % Eosinophils % Basophils % Absolute Neutrophils Absolute Lymphocytes Absolute Monocytes Absolute Eosinophils Absolute Basophils Platelet Comment Polychromasia Anisocytosis Macrocytosis Sickle Cells Target Cells Retic Count (auto) Absolute Retic Sodium Potassium Chloride Carbon Dioxide Anion Gap BUN Creatinine Est GFR ( Amer) Est GFR (Non-Af Amer) Glucose Calcium Total Bilirubin Direct Bilirubin Neonat Total Bilirubin Neonat Direct Bilirubin Neonat Indirect Bili AST ALT Alkaline Phosphatase Total Protein Albumin Serum HCG, Qual NEGATIVE Urine Color Urine Appearance Urine pH Ur Specific [place] Urine Protein Urine Glucose (UA) Urine Ketones Urine Blood Urine Nitrite Urine Bilirubin Urine Urobilinogen Ur Leukocyte Esterase Urine WBC (Auto) Urine RBC (Auto) Urine Bacteria (Auto) Squamous Epi Cells Auto Urine Mucus (Auto) Urine Ascorbic Acid Chest X-Ray 09/05/18 06:17 IMPRESSION: No acute cardiopulmonary abnormality copyright 2011 [employer]- All Rights Reserved - Vital Signs Vital signs: Temp Pulse Resp BP Pulse Ox 98.1 F 66 22 H 89/44 L 98 09/05/18 08:00 09/05/18 08:00 09/05/18 00:40 09/05/18 08:00 09/05/18 08:00 - Laboratory Result Diagrams: 09/05/18 04:04 09/05/18 04:04 Laboratory results interpreted by me: 09/05/18 09/05/18 09/05/18 04:04 04:04 04:04 WBC 15.8 H RBC 2.58 L Hgb 9.4 L Hct 25.8 L MCV 100 H MCH 36.5 H MCHC 36.4 H RDW 17.3 H Absolute Neutrophils 10.3 H Absolute Eosinophils 0.7 H Retic Count (auto) 8.92 H Absolute Retic 0.230 H Chloride 108 H Creatinine 0.50 L Total Bilirubin 4.5 H Urine Urobilinogen 4.0 H Discharge - Discharge Clinical Impression: Sickle cell pain crisis Condition: Stable Disposition: ADMITTED OBSERVATION Admitting Provider: Helga Parekh Unit Admitted: Medical Floor
--- NOTE | 2018-09-05 07:35 | RADIOLOGY REPORT (SQ) ---
EXAM DESCRIPTION: XR CHEST 1 VIEW COMPLETED DATE/TME: 09/05/2018 06:17 CLINICAL HISTORY: 23 years, Female, wheezing COMPARISON: 08/31/2018 NUMBER OF VIEWS: One TECHNIQUE: AP view the chest LIMITATIONS: None. FINDINGS: Lungs are clear. The heart is normal in size. There is no pneumothorax or pleural effusion. The right chest wall port terminates within the SVC. The bones are unremarkable. IMPRESSION: No acute cardiopulmonary abnormality copyright 2010 [employer]- All Rights Reserved
[2018-09-05] MEDS ORDERED: KETOROLAC TROMETHAMINE INJ/PF 30 MG/1 ML SDV IV ONE (08:24)
[2018-09-05] MEDS ORDERED: MAGNESIUM HYDROXIDE SUSP 30 ML UDCUP PO PRN (08:32)
[2018-09-05] MEDS ORDERED: MAG HYDROX/AL HYDROX/SIMETH SUSP 30 ML UDCUP PO PRN (08:32)
[2018-09-05] MEDS ORDERED: IPRATROPIUM/ALBUTEROL 0.5-2.5 MG/3 ML AMPUL NEB PRN (08:32)
[2018-09-05] MEDS ORDERED: PROMETHAZINE HCL 25 MG SUPP.RECT PR PRN (08:32)
[2018-09-05] MEDS ORDERED: ALBUTEROL SULFATE 0.083% NEB 2.5 MG/3 ML AMPUL NEB PRN (08:32)
[2018-09-05] MEDS ORDERED: NA PHOS,M-B/NA PHOS,DI-BA (ADULT) 133 ML ENEMA PR ONE (09:30)
[2018-09-05] MEDS ORDERED: DOCUSATE SODIUM 100 MG CAPSULE ONE (10:19)
[2018-09-05] MEDS ORDERED: FAMOTIDINE 20 MG TABLET ONE (10:19)
[2018-09-05] MEDS: FAMOTIDINE 20 MG TABLET PO SCH ×2 (10:26→22:18)
[2018-09-05] MEDS: DOCUSATE SODIUM 100 MG CAPSULE PO SCH ×2 (10:26→17:46)
[2018-09-05] MEDS: NORMAL SALINE 1000 ML 1,000 ML IV PRN ×3 (10:26→21:26)
[2018-09-05] MEDS ORDERED: HYDROMORPHONE HCL INJ/PF 2 MG/ML AMPULE ONE (10:49)
[2018-09-05] MEDS: HYDROMORPHONE HCL INJ/PF 2 MG/ML AMPULE IV PRN ×5 (11:16→22:18)
[2018-09-05] MEDS: DIPHENHYDRAMINE HCL 50 MG/ML VIAL IV PRN ×2 (11:19→22:18)
[2018-09-05] MEDS: HEPARIN SOD (PORCINE) 5,000 UNIT/ML 1 ML SYRINGE SUBCUT SCH ×2 (15:09→22:19)
[2018-09-05] MEDS ORDERED: OXYCODONE HCL IR 5 MG TABLET PO PRN (18:04)
--- NOTE | 2018-09-05 18:13 | PDOC H&P ---
History of Present Illness Admission Date/PCP: 09/05/18 08:39 Patient complains of: sickle cell crisis pain History of Present Illness: CASSANDRA MIDDLETON is a 23 year old female with a past medical history of sickle cell disease, DVT, depression and anxiety who presented to the emergency department today with a complaint of bilateral lower extremity and back pain similar to previous sickle cell crisis in the past. She reports that she has recently been transitioned from p.o. Dilaudid to p.o. oxycodone. Otherwise she cannot recall any potential exacerbating factors. She denies recent illness or environmental exposure. Evaluation in the emergency department reveals leukocytosis (WBCs 15.8) hemoglobin 9.4 (at baseline), with her to count of 8.92 and absolute retake of 0.230, chemistry is unremarkable, LDH elevated to 87, urinalysis is benign, and chest x-ray is negative for acute findings. She is referred to the hospitalist service for admission and management of intractable pain related to sickle cell crisis. Past Medical History Cardiac Medical History: Reports: DVT - RUE s/p port placement Pulmonary Medical History: Reports: Asthma, Bronchitis, Pneumonia EENT Medical History: Reports: None Neurological Medical History: Reports: None Endocrine Medical History: Reports: None Renal/ Medical History: Reports: None Malignancy Medical History: Reports: None GI Medical History: Reports: None Musculoskeltal Medical History: Reports: None Skin Medical History: Reports: None Psychiatric Medical History: Reports: Depression - Lyla Bhumika Admission 05/14/2016, General Anxiety Disorder Traumatic Medical History: Reports: None Hematology: Reports: Anemia, Sickle Cell Disease Denies: Bleeding Tendencies Past Surgical History Past Surgical History: Reports: Cholecystectomy - 06/28/2015, Vascular Surgery - port put in December, Social History Information Source: Patient Lives with: Family Smoking Status: Former Smoker Frequency of Alcohol Use: Social Hx Recreational Drug Use: No Drugs: None Hx Prescription Drug Abuse: No - Advance Directive Resuscitation Status: Full Code Family History Family History: Other - Sickle cell disease and sickle cell trait, asthma Parental Family History Reviewed: Yes Children Family History Reviewed: Yes Sibling(s) Family History Reviewed.: Yes Medication/Allergy Home Medications: Aripiprazole [Abilify 10 mg Tablet] 10 mg PO QHS 09/05/18 Folic Acid [Folvite 1 mg Tablet] 1 mg PO DAILY 09/05/18 Hydromorphone HCl [Dilaudid] 8 mg PO Q6 09/05/18 Hydroxyurea [Hydrea 500 mg Capsule] 500 mg PO BID 09/05/18 Oxycodone HCl [Oxy-Ir 5 mg Tablet] 5 mg PO Q6HP PRN 09/05/18 Rivaroxaban [Xarelto] 20 mg PO DAILY 09/05/18 Allergies/Adverse Reactions: morphine Allergy (Severe, Verified 09/05/18 01:32) RASH,SWELLING jacob peppers Adverse Reaction (Severe, Uncoded 08/31/18 14:39) throat closes Review of Systems Constitutional: ABSENT: chills, fever(s), headache(s), weight gain, weight loss Eyes: ABSENT: visual disturbances Ears: ABSENT: hearing changes Cardiovascular: ABSENT: chest pain, dyspnea on exertion, edema, orthropnea, palpitations Respiratory: ABSENT: cough, hemoptysis Gastrointestinal: PRESENT: constipation, nausea. ABSENT: abdominal pain, diarrhea, hematemesis, hematochezia, vomiting Genitourinary: ABSENT: dysuria, hematuria Musculoskeletal: PRESENT: back pain. ABSENT: joint swelling Integumentary: ABSENT: rash, wounds Neurological: ABSENT: abnormal gait, abnormal speech, confusion, dizziness, focal weakness, syncope Psychiatric: ABSENT: anxiety, depression, homidical ideation, suicidal ideation Endocrine: ABSENT: cold intolerance, heat intolerance, polydipsia, polyuria Hematologic/Lymphatic: ABSENT: easy bleeding, easy bruising Physical Exam Vital Signs: Temp Pulse Resp BP Pulse Ox 97.7 F 74 18 100/44 L 100 09/05/18 09:09 09/05/18 09:09 09/05/18 09:09 09/05/18 09:09 09/05/18 09:09 Intake & Output 09/04/18 09/05/18 09/06/18 06:59 06:59 06:59 Intake Total 1000 Balance 1000 Weight 64.7 kg General appearance: PRESENT: no acute distress, well-developed, well-nourished - Overweight Head exam: PRESENT: atraumatic, normocephalic Eye exam: PRESENT: conjunctiva pink, EOMI, PERRLA. ABSENT: scleral icterus Ear exam: PRESENT: normal external ear exam Mouth exam: PRESENT: moist, tongue midline Neck exam: ABSENT: carotid bruit, JVD, lymphadenopathy, thyromegaly Respiratory exam: PRESENT: clear to auscultation samaria, symmetrical, unlabored. ABSENT: rales, rhonchi, wheezes Cardiovascular exam: PRESENT: RRR, +S1, +S2. ABSENT: diastolic murmur, rubs, systolic murmur Pulses: PRESENT: normal dorsalis pedis pul Vascular exam: PRESENT: normal capillary refill GI/Abdominal exam: PRESENT: normal bowel sounds, soft. ABSENT: distended, guarding, mass, organolmegaly, rebound, tenderness Rectal exam: PRESENT: deferred Extremities exam: PRESENT: full ROM. ABSENT: calf tenderness, clubbing, pedal edema Neurological exam: PRESENT: alert, awake, oriented to person, oriented to place, oriented to time, oriented to situation, CN II-XII grossly intact, other - Drowsy. ABSENT: motor sensory deficit Psychiatric exam: PRESENT: appropriate affect, normal mood. ABSENT: homicidal ideation, suicidal ideation Skin exam: PRESENT: dry, intact, warm. ABSENT: cyanosis, rash Results Laboratory Results: 09/05/18 04:04 09/05/18 04:04 09/05/18 09/05/18 09/05/18 04:04 04:04 04:04 WBC 15.8 H RBC 2.58 L Hgb 9.4 L Hct 25.8 L MCV 100 H MCH 36.5 H MCHC 36.4 H RDW 17.3 H Plt Count 436 Seg Neutrophils % 65.5 Lymphocytes % 22.3 Monocytes % 6.4 Eosinophils % 4.2 Basophils % 1.6 Absolute Neutrophils 10.3 H Absolute Lymphocytes 3.5 Absolute Monocytes 1.0 Absolute Eosinophils 0.7 H Absolute Basophils 0.2 Retic Count (auto) 8.92 H Absolute Retic 0.230 H Sodium 142.0 Potassium 3.7 Chloride 108 H Carbon Dioxide 24 Anion Gap 10 BUN 9 Creatinine 0.50 L Est GFR ( Amer) > 60 Est GFR (Non-Af Amer) > 60 Glucose 93 Calcium 9.4 Total Bilirubin 4.5 H AST 25 ALT 16 Alkaline Phosphatase 71 Total Protein 7.1 Albumin 4.0 Serum HCG, Qual Urine Color YELLOW Urine Appearance CLEAR Urine pH 7.0 Ur Specific [place] 1.010 Urine Protein NEGATIVE Urine Glucose (UA) NEGATIVE Urine Ketones NEGATIVE Urine Blood NEGATIVE Urine Nitrite NEGATIVE Ur Leukocyte Esterase NEGATIVE Urine WBC (Auto) 1 Urine RBC (Auto) 0 06/08/19 04:04 WBC RBC Hgb Hct MCV MCH MCHC RDW Plt Count Seg Neutrophils % Lymphocytes % Monocytes % Eosinophils % Basophils % Absolute Neutrophils Absolute Lymphocytes Absolute Monocytes Absolute Eosinophils Absolute Basophils Retic Count (auto) Absolute Retic Sodium Potassium Chloride Carbon Dioxide Anion Gap BUN Creatinine Est GFR ( Amer) Est GFR (Non-Af Amer) Glucose Calcium Total Bilirubin AST ALT Alkaline Phosphatase Total Protein Albumin Serum HCG, Qual NEGATIVE Urine Color Urine Appearance Urine pH Ur Specific [place] Urine Protein Urine Glucose (UA) Urine Ketones Urine Blood Urine Nitrite Ur Leukocyte Esterase Urine WBC (Auto) Urine RBC (Auto) Impressions: Chest X-Ray 09/05/18 06:17 IMPRESSION: No acute cardiopulmonary abnormality copyright 2010 [employer]- All Rights Reserved Assessment and Plan - Diagnosis (1) Sickle cell pain crisis Is this a current diagnosis for this admission?: Yes Plan: The patient is admitted to the medical floor. She is provided supplemental oxygen at 2 L/min continuously. She is provided generous IV fluids. Analgesic regiment of IV Dilaudid, Toradol, p.o. Tylenol. IV Benadryl as needed. Antiemetics as needed. Heating pad. Continue home dose hydroxyurea. Continue home dose folic acid. Daily CBC; transfuse for hemoglobin less than 7. (2) Constipation Qualifiers: Constipation type: drug induced constipation Qualified Code(s): K59.03 - Drug induced constipation Is this a current diagnosis for this admission?: Yes Plan: Likely secondary to chronic opiate medications. Colace twice daily. Milk of magnesia daily as needed. Fleets enema x1. (3) Depression with anxiety Is this a current diagnosis for this admission?: Yes Plan: Continue home dose Abilify. (4) History of DVT (deep vein thrombosis) Is this a current diagnosis for this admission?: Yes Plan: Continue home dose Xarelto 20 mg daily. - Time Time Spent with patient: 35 or more minutes Medications reviewed and adjusted accordingly: Yes Anticipated discharge: Home - Inpatient Certification Based on my medical assessment, after consideration of the patient's comorbidities, presenting symptoms, or acuity I expect that the services needed warrant INPATIENT care.: Yes I certify that my determination is in accordance with my understanding of Medicare's requirements for reasonable and necessary INPATIENT services [42 CFR 412.3e].: Yes Medical Necessity: Failure to Improve With Outpatient Therapy, Need For IV Fluids, Need for Pain Control
[2018-09-05] MEDS: ARIPIPRAZOLE 5 MG TABLET PO SCH (22:18)
[2018-09-06] MEDS: HYDROMORPHONE HCL INJ/PF 2 MG/ML AMPULE IV PRN ×8 (02:06→23:29)
[2018-09-06] MEDS: NORMAL SALINE 1000 ML 1,000 ML IV PRN ×5 (02:10→23:34)
[2018-09-06] MEDS: ONDANSETRON HCL INJ/PF 4 MG/2 ML SDV IV PRN (02:13)
[2018-09-06] MEDS: HEPARIN SOD (PORCINE) 5,000 UNIT/ML 1 ML SYRINGE SUBCUT SCH ×3 (05:01→21:30)
[2018-09-06 07:02] LABS: HEMATOCRIT 22.5 % (36.0-47.0); MEAN CORPUSCULAR HEMOGLOBIN 35.9 pg (27.0-33.4); MEAN CORPUSCULAR HGB CONC 35.6 g/dL (32.0-36.0); MEAN CORPUSCULAR VOLUME 101 fl (80-97); PLATELET COUNT 366 10^3/uL (150-450); RED BLOOD COUNT 2.23 10^6/uL (3.72-5.28); WHITE BLOOD COUNT 9.6 10^3/uL (4.0-10.5)
[2018-09-06] MEDS: DIPHENHYDRAMINE HCL 50 MG/ML VIAL IV PRN ×2 (07:04→20:55)
[2018-09-06 07:15] LABS: ANION GAP 5 (5-19); BLOOD UREA NITROGEN 4 mg/dL (7-20); CALCIUM 7.9 mg/dL (8.4-10.2); CARBON DIOXIDE 23 mmol/L (22-30); CHLORIDE 113 mmol/L (98-107); GLUCOSE 83 mg/dL (75-110); POTASSIUM 4.1 mmol/L (3.6-5.0); SODIUM 141.2 mmol/L (137-145)
[2018-09-06 07:21] LABS: ABSOLUTE MONOCYTES # (MANUAL) 0.8 10^3/uL (0.1-1.4); BAND NEUTROPHILS % (MANUAL) 1 % (3-5); BASOPHILS % (MANUAL) 0 % (0-2); EOSINOPHILS % (MANUAL) 2 % (0-6); LYMPHOCYTES % (MANUAL) 42 % (13-45); MONOCYTES % (MANUAL) 8 % (3-13); PLATELET COMMENT ADEQUATE; SEGMENTED NEUTROPHILS % (MAN) 47 % (42-78); TOTAL CELLS COUNTED 100
[2018-09-06 07:22] LABS: ANISOCYTOSIS 2+; POIKILOCYTOSIS 1+; POLYCHROMASIA 1+; SCHISTOCYTES SLIGHT; SICKLE RED CELLS 2+; TARGET CELLS 2+
[2018-09-06] MEDS: FAMOTIDINE 20 MG TABLET PO SCH ×2 (09:15→21:25)
[2018-09-06] MEDS: DOCUSATE SODIUM 100 MG CAPSULE PO SCH ×2 (09:15→17:46)
[2018-09-06] MEDS: FOLIC ACID 1 MG TABLET PO SCH (09:16)
[2018-09-06] MEDS: HYDROXYUREA 500 MG CAPSULE PO SCH ×2 (11:54→17:46)
[2018-09-06] MEDS: RIVAROXABAN 10 MG TABLET PO SCH (17:47)
--- NOTE | 2018-09-06 18:03 | PDOC PROGRESS REPORT ---
Subjective Progress Note for:: 09/06/18 Subjective:: CASSANDRA MIDDLETON is a 23 year old female with a past medical history of sickle cell disease, DVT, depression and anxiety who was admitted 09/05/2018 for sickle cell crisis pain. Patient was seen on morning rounds. She is found resting in bed comfortably on room air. She was later observed ambulating in the hallway on room air without difficulty. She reports that she was able to sleep for about 4 solid hours last night; appreciate of attempt to control pain. She does report that she is continuing to have a constant pain but is satisfied with the analgesic regimen at this time. She denies fever, chills, chest pain, palpitations, dyspnea, orthopnea, abdominal pain, nausea vomiting and diarrhea. She has no questions or concerns at this time. No concerns per nursing. Reason For Visit: SICKLE CELL PAIN CRISIS Physical Exam Vital Signs: Temp Pulse Resp BP Pulse Ox 98.4 F 79 20 108/50 L 98 09/06/18 16:00 09/06/18 16:00 09/06/18 16:00 09/06/18 16:00 09/06/18 16:00 Intake & Output 09/05/18 09/06/18 09/07/18 06:59 06:59 06:59 Intake Total 5907 1980 Balance 5907 1979 Weight 64.7 kg 67.7 kg General appearance: PRESENT: no acute distress, cooperative, well-developed, well-nourished Head exam: PRESENT: atraumatic, normocephalic Eye exam: PRESENT: conjunctiva pink, EOMI, PERRLA. ABSENT: scleral icterus Ear exam: PRESENT: normal external ear exam Mouth exam: PRESENT: moist, tongue midline Neck exam: ABSENT: carotid bruit, JVD, lymphadenopathy, thyromegaly Respiratory exam: PRESENT: clear to auscultation samaria, symmetrical, unlabored. ABSENT: rales, rhonchi, wheezes Cardiovascular exam: PRESENT: RRR, +S1, +S2. ABSENT: diastolic murmur, rubs, systolic murmur Pulses: PRESENT: normal dorsalis pedis pul Vascular exam: PRESENT: normal capillary refill GI/Abdominal exam: PRESENT: normal bowel sounds, soft. ABSENT: distended, guarding, mass, organolmegaly, rebound, tenderness Rectal exam: PRESENT: deferred Extremities exam: PRESENT: full ROM. ABSENT: calf tenderness, clubbing, pedal edema Neurological exam: PRESENT: alert, awake, oriented to person, oriented to place, oriented to time, oriented to situation, CN II-XII grossly intact. ABSENT: motor sensory deficit Psychiatric exam: PRESENT: appropriate affect, normal mood. ABSENT: homicidal ideation, suicidal ideation Skin exam: PRESENT: dry, intact, warm. ABSENT: cyanosis, rash Results Laboratory Results: 09/06/18 06:30 09/06/18 06:30 09/06/18 09/06/18 06:30 06:30 WBC 9.6 RBC 2.23 L Hgb 8.0 L Hct 22.5 L MCV 101 H MCH 35.9 H MCHC 35.6 RDW 17.0 H Plt Count 366 Seg Neutrophils % Not Reportable Lymphocytes % Not Reportable Monocytes % Not Reportable Eosinophils % Not Reportable Basophils % Not Reportable Absolute Neutrophils Not Reportable Absolute Lymphocytes Not Reportable Absolute Monocytes Not Reportable Absolute Eosinophils Not Reportable Absolute Basophils Not Reportable Sodium 141.2 Potassium 4.1 Chloride 113 H Carbon Dioxide 23 Anion Gap 5 BUN 4 L Creatinine 0.48 L Est GFR ( Amer) > 60 Est GFR (Non-Af Amer) > 60 Glucose 83 Calcium 7.9 L Impressions: Chest X-Ray 09/05/18 06:17 IMPRESSION: No acute cardiopulmonary abnormality copyright 2011 [employer]- All Rights Reserved Assessment and Plan - Diagnosis (1) Sickle cell pain crisis Is this a current diagnosis for this admission?: Yes Plan: Hgb 9.4-> 8.0; likely hemodilution as patient is receiving generoud IVF. Patient reports adequate pain control. The patient is admitted to the medical floor. She is provided supplemental oxygen at 2 L/min continuously. She is provided IV fluids. Analgesic regiment of IV Dilaudid, Toradol, p.o. Tylenol. IV Benadryl as needed. Antiemetics as needed. Heating pad. Continue home dose hydroxyurea. Continue home dose folic acid. Daily CBC; transfuse for hemoglobin less than 7. (2) Constipation Qualifiers: Constipation type: drug induced constipation Qualified Code(s): K59.03 - Drug induced constipation Is this a current diagnosis for this admission?: Yes Plan: Likely secondary to chronic opiate medications. Colace twice daily. Milk of magnesia daily as needed. (3) Depression with anxiety Is this a current diagnosis for this admission?: Yes Plan: Continue home dose Abilify. (4) History of DVT (deep vein thrombosis) Is this a current diagnosis for this admission?: Yes Plan: Continue home dose Xarelto 20 mg daily. - Time Time Spent with patient: 15-24 minutes Anticipated discharge: Home
[2018-09-06] MEDS: ARIPIPRAZOLE 5 MG TABLET PO SCH (21:25)
[2018-09-07] MEDS: HYDROMORPHONE HCL INJ/PF 2 MG/ML AMPULE IV PRN ×10 (03:35→22:51)
[2018-09-07] MEDS: NORMAL SALINE 1000 ML 1,000 ML IV PRN ×4 (05:01→20:42)
[2018-09-07] MEDS: HEPARIN SOD (PORCINE) 5,000 UNIT/ML 1 ML SYRINGE SUBCUT SCH ×3 (05:03→22:50)
[2018-09-07 05:36] LABS: ABSOLUTE RETICS # 0.201 10^6/uL (0.028-0.122); MEAN CORPUSCULAR HEMOGLOBIN 35.9 pg (27.0-33.4); MEAN CORPUSCULAR HGB CONC 35.8 g/dL (32.0-36.0); MEAN CORPUSCULAR VOLUME 100 fl (80-97); PLATELET COUNT 347 10^3/uL (150-450); RED CELL DISTRIBUTION WIDTH 17.3 % (11.5-14.0); RETICULOCYTE COUNT (AUTO) 9.12 % (0.66-2.85); WHITE BLOOD COUNT 9.3 10^3/uL (4.0-10.5)
[2018-09-07 05:39] LABS: HEMOGLOBIN 7.9 g/dL (12.0-15.5)
[2018-09-07 05:47] LABS: ABSOLUTE LYMPHOCYTES# (MANUAL) 3.1 10^3/uL (0.5-4.7); ABSOLUTE MONOCYTES # (MANUAL) 0.6 10^3/uL (0.1-1.4); BASOPHILS % (MANUAL) 1 % (0-2); EOSINOPHILS % (MANUAL) 6 % (0-6); LYMPHOCYTES % (MANUAL) 33 % (13-45); MONOCYTES % (MANUAL) 6 % (3-13); SEGMENTED NEUTROPHILS % (MAN) 54 % (42-78); TOTAL CELLS COUNTED 100
[2018-09-07] MEDS: DIPHENHYDRAMINE HCL 50 MG/ML VIAL IV PRN ×4 (05:49→20:41)
[2018-09-07 05:50] LABS: ANISOCYTOSIS 2+; PLATELET COMMENT ADEQUATE; POLYCHROMASIA 1+; SCHISTOCYTES SLIGHT; SICKLE RED CELLS 2+; TARGET CELLS 2+
[2018-09-07] MEDS: FOLIC ACID 1 MG TABLET PO SCH (09:19)
[2018-09-07] MEDS: DOCUSATE SODIUM 100 MG CAPSULE PO SCH ×2 (09:19→17:31)
[2018-09-07] MEDS: FAMOTIDINE 20 MG TABLET PO SCH ×2 (09:19→22:50)
[2018-09-07] MEDS: ONDANSETRON HCL INJ/PF 4 MG/2 ML SDV IV PRN (09:20)
[2018-09-07] MEDS: HYDROXYUREA 500 MG CAPSULE PO SCH ×2 (09:23→17:31)
--- NOTE | 2018-09-07 14:12 | PDOC PROGRESS REPORT ---
Subjective Progress Note for:: 09/07/18 Subjective:: CASSANDRA MIDDLETON is a 23 year old female with a past medical history of sickle cell disease, DVT, depression and anxiety who was admitted 09/05/2018 for sickle cell crisis pain. Patient was seen on morning rounds. She is found resting in bed comfortably on room air. She does report that she is continuing to have a constant pain but is satisfied with the analgesic regimen at this time; specifically stating that the dose and frequency is adequate at this time. She denies fever, chills, chest pain, palpitations, dyspnea, orthopnea, abdominal pain, nausea vomiting and diarrhea. She denies worsened depression, anxiety, SI/Hi. She has no questions or concerns at this time. No concerns per nursing. Reason For Visit: SICKLE CELL PAIN CRISIS Physical Exam Vital Signs: Temp Pulse Resp BP Pulse Ox 99.0 F 83 16 100/45 L 94 09/07/18 12:18 09/07/18 12:18 09/07/18 12:18 09/07/18 12:18 09/07/18 12:18 Intake & Output 09/06/18 09/07/18 09/08/18 06:59 06:59 06:59 Intake Total 5907 7780 1647 Output Total 3300 1100 Balance 5907 4480 547 Weight 67.7 kg 67.7 kg General appearance: PRESENT: no acute distress, cooperative, well-developed, well-nourished - overweight Head exam: PRESENT: atraumatic, normocephalic Eye exam: PRESENT: conjunctiva pink, EOMI, PERRLA. ABSENT: scleral icterus Mouth exam: PRESENT: moist, tongue midline Neck exam: ABSENT: carotid bruit, JVD, lymphadenopathy, thyromegaly Respiratory exam: PRESENT: clear to auscultation samaria, symmetrical, unlabored. ABSENT: rales, rhonchi, wheezes Cardiovascular exam: PRESENT: RRR, +S1, +S2. ABSENT: diastolic murmur, rubs, systolic murmur Pulses: PRESENT: normal dorsalis pedis pul Vascular exam: PRESENT: normal capillary refill GI/Abdominal exam: PRESENT: normal bowel sounds, soft. ABSENT: distended, guarding, mass, organolmegaly, rebound, tenderness Rectal exam: PRESENT: deferred Extremities exam: PRESENT: full ROM. ABSENT: calf tenderness, clubbing, pedal edema Neurological exam: PRESENT: alert, awake, oriented to person, oriented to place, oriented to time, oriented to situation, CN II-XII grossly intact. ABSENT: motor sensory deficit Psychiatric exam: PRESENT: appropriate affect, normal mood. ABSENT: homicidal ideation, suicidal ideation Skin exam: PRESENT: dry, intact, warm. ABSENT: cyanosis, rash Results Laboratory Results: 09/07/18 05:00 09/06/18 06:30 09/07/18 05:00 WBC 9.3 RBC 2.20 L Hgb 7.9 L Hct 22.0 L MCV 100 H MCH 35.9 H MCHC 35.8 RDW 17.3 H Plt Count 347 Seg Neutrophils % Not Reportable Lymphocytes % Not Reportable Monocytes % Not Reportable Eosinophils % Not Reportable Basophils % Not Reportable Absolute Neutrophils Not Reportable Absolute Lymphocytes Not Reportable Absolute Monocytes Not Reportable Absolute Eosinophils Not Reportable Absolute Basophils Not Reportable Retic Count (auto) 9.12 H Absolute Retic 0.201 H Impressions: Chest X-Ray 09/05/18 06:17 IMPRESSION: No acute cardiopulmonary abnormality copyright 2011 [employer]- All Rights Reserved Assessment and Plan - Diagnosis (1) Sickle cell pain crisis Is this a current diagnosis for this admission?: Yes Plan: Hgb 9.4-> 7.9; likely hemodilution as patient is receiving generous IVF. Retic count 8.92-> 9.12 LDH on admission 287 Patient reports adequate pain control. The patient is admitted to the medical floor. She is provided supplemental oxygen at 2 L/min continuously. She is provided IV fluids. Analgesic regiment of IV Dilaudid, Toradol, p.o. Tylenol. IV Benadryl as needed. Antiemetics as needed. Heating pad. Continue home dose hydroxyurea. Continue home dose folic acid. Daily CBC; transfuse for hemoglobin less than 7. (2) Constipation Qualifiers: Constipation type: drug induced constipation Qualified Code(s): K59.03 - Drug induced constipation Is this a current diagnosis for this admission?: Yes Plan: Resolved. Likely secondary to chronic opiate medications. Colace twice daily. Milk of magnesia daily as needed. (3) Depression with anxiety Is this a current diagnosis for this admission?: Yes Plan: Overnight, nursing received a phone call that the patient had made statements re garding suicide. Patient reports that she was expressing frustration w/ frequency and severity of pain crisis. She reports that a friend overreacted. She specifically denies worsened depression, anxiety, SI/HI. Continue home dose Lexapro and Abilify. Offered mental health consultation; patient declines at this time. (4) History of DVT (deep vein thrombosis) Is this a current diagnosis for this admission?: Yes Plan: Continue home dose Xarelto 20 mg daily. - Time Time Spent with patient: 15-24 minutes Medications reviewed and adjusted accordingly: Yes Anticipated discharge: Home
[2018-09-07] MEDS: ESCITALOPRAM OXALATE 10 MG TABLET PO SCH (15:00)
[2018-09-07] MEDS: RIVAROXABAN 10 MG TABLET PO SCH (17:31)
[2018-09-07] MEDS: ARIPIPRAZOLE 5 MG TABLET PO SCH (22:50)
[2018-09-08] MEDS: DIPHENHYDRAMINE HCL 50 MG/ML VIAL IV PRN ×3 (03:34→19:52)
[2018-09-08] MEDS: HYDROMORPHONE HCL INJ/PF 2 MG/ML AMPULE IV PRN ×6 (03:34→21:53)
[2018-09-08] MEDS: HEPARIN SOD (PORCINE) 5,000 UNIT/ML 1 ML SYRINGE SUBCUT SCH ×3 (05:13→22:30)
[2018-09-08 05:57] LABS: ABSOLUTE BASOPHILS # (AUTO) 0.2 10^3/uL (0.0-0.2); ABSOLUTE EOSINOPHILS # (AUTO) 0.9 10^3/uL (0.0-0.6); ABSOLUTE LYMPHOCYTES (AUTO) 2.3 10^3/uL (0.5-4.7); ABSOLUTE MONOCYTES (AUTO) 0.8 10^3/uL (0.1-1.4); ABSOLUTE NEUT (AUTO) 5.7 10^3/uL (1.7-8.2); BASOPHILS % (AUTO) 2.1 % (0-2); EOSINOPHILS % (AUTO) 9.1 % (0-6); HEMATOCRIT 21.2 % (36.0-47.0); LYMPHOCYTES % (AUTO) 22.9 % (13-45); MEAN CORPUSCULAR HEMOGLOBIN 36.9 pg (27.0-33.4); MEAN CORPUSCULAR HGB CONC 36.9 g/dL (32.0-36.0); MEAN CORPUSCULAR VOLUME 100 fl (80-97); MONOCYTES % (AUTO) 8.5 % (3-13); PLATELET COUNT 303 10^3/uL (150-450); RED BLOOD COUNT 2.12 10^6/uL (3.72-5.28); RED CELL DISTRIBUTION WIDTH 17.8 % (11.5-14.0); SEGMENTED NEUTROPHILS % (AUTO) 57.4 % (42-78); TOTAL CELLS COUNTED % (AUTO) 100 %
[2018-09-08] MEDS: NORMAL SALINE 1000 ML 1,000 ML IV PRN ×2 (06:39→17:41)
[2018-09-08 06:46] LABS: HEMOGLOBIN 7.8 g/dL (12.0-15.5)
[2018-09-08 06:52] LABS: WHITE BLOOD COUNT 9.4 10^3/uL (4.0-10.5)
[2018-09-08] MEDS: ESCITALOPRAM OXALATE 10 MG TABLET PO SCH (09:39)
[2018-09-08] MEDS: HYDROXYUREA 500 MG CAPSULE PO SCH ×2 (09:39→17:21)
[2018-09-08] MEDS: FAMOTIDINE 20 MG TABLET PO SCH ×2 (09:39→21:54)
[2018-09-08] MEDS: FOLIC ACID 1 MG TABLET PO SCH (09:39)
[2018-09-08] MEDS: DOCUSATE SODIUM 100 MG CAPSULE PO SCH ×2 (09:39→17:21)
--- NOTE | 2018-09-08 16:13 | PDOC PROGRESS REPORT ---
Subjective Progress Note for:: 09/08/18 Subjective:: CASSANDRA MIDDLETON is a 23 year old female with a past medical history of sickle cell disease, DVT, depression and anxiety who was admitted 09/05/2018 for sickle cell crisis pain. Patient was seen on morning rounds. She is found resting in bed comfortably on room air. She does report that she is continuing to have generalized constant pain. She states she experiences moderate relief with IV analgesia. Patient is normally followed as an outpatient by Dr. Jimenez. He was consulted today, plans to see the patient tomorrow. In the meantime we will increase dosage of patient's IV Dilaudid, discontinue oral oxycodone and add medication to her bowel regimen. Reason For Visit: SICKLE CELL PAIN CRISIS Physical Exam Vital Signs: Temp Pulse Resp BP Pulse Ox 98.1 F 74 18 112/58 L 94 09/08/18 11:59 09/08/18 11:59 09/08/18 11:59 09/08/18 11:59 09/08/18 11:59 Intake & Output 09/07/18 09/08/18 09/09/18 06:59 06:59 06:59 Intake Total 7780 5662 Output Total 3300 2550 Balance 4480 3112 Weight 67.7 kg 69.1 kg General appearance: PRESENT: no acute distress, well-developed, well-nourished Head exam: PRESENT: atraumatic, normocephalic Eye exam: PRESENT: conjunctiva pink, EOMI, PERRLA. ABSENT: scleral icterus Ear exam: PRESENT: normal external ear exam Mouth exam: PRESENT: moist, tongue midline Neck exam: ABSENT: carotid bruit, JVD, lymphadenopathy, thyromegaly Respiratory exam: PRESENT: clear to auscultation samaria. ABSENT: rales, rhonchi, wheezes Cardiovascular exam: PRESENT: RRR. ABSENT: diastolic murmur, rubs, systolic m urmur Pulses: PRESENT: normal dorsalis pedis pul Vascular exam: PRESENT: normal capillary refill GI/Abdominal exam: PRESENT: normal bowel sounds, soft. ABSENT: distended, guarding, mass, organolmegaly, rebound, tenderness Rectal exam: PRESENT: deferred Extremities exam: PRESENT: full ROM. ABSENT: calf tenderness, clubbing, pedal edema Neurological exam: PRESENT: alert, awake, oriented to person, oriented to place, oriented to time, oriented to situation, CN II-XII grossly intact. ABSENT: motor sensory deficit Psychiatric exam: PRESENT: appropriate affect, normal mood. ABSENT: homicidal ideation, suicidal ideation Skin exam: PRESENT: dry, intact, warm. ABSENT: cyanosis, rash Results Laboratory Results: 09/08/18 04:55 09/06/18 06:30 09/08/18 04:55 WBC 9.4 RBC 2.12 L Hgb 7.8 L Hct 21.2 L MCV 100 H MCH 36.9 H MCHC 36.9 H RDW 17.8 H Plt Count 303 Seg Neutrophils % 57.4 Lymphocytes % 22.9 Monocytes % 8.5 Eosinophils % 9.1 H Basophils % 2.1 H Absolute Neutrophils 5.7 Absolute Lymphocytes 2.3 Absolute Monocytes 0.8 Absolute Eosinophils 0.9 H Absolute Basophils 0.2 Impressions: Chest X-Ray 09/05/18 06:17 IMPRESSION: No acute cardiopulmonary abnormality copyright 2011 [employer]- All Rights Reserved Status: Imported from PACS Assessment and Plan - Diagnosis (1) Sickle cell pain crisis Is this a current diagnosis for this admission?: Yes Plan: Hgb 9.4-> 7.8 Retic count 8.92-> 9.12 LDH on admission 287 The patient is admitted to the medical floor. Supplemental oxygen at 2 L/min continuously. Continuous IV fluids. PRN IV Dilaudid, Toradol, p.o. Tylenol - per Dr. Jimenez's recommendation, will increase dilaudid from 1mg-->2mg IV q2hr IV Benadryl as needed. Antiemetics as needed. Heating pad. Continue home dose hydroxyurea. Continue home dose folic acid. Daily CBC; transfuse for hemoglobin less than 7.0. (2) Constipation Qualifiers: Constipation type: drug induced constipation Qualified Code(s): K59.03 - Drug induced constipation Is this a current diagnosis for this admission?: Yes Plan: Resolved. Likely secondary to chronic opiate medications. Colace twice daily. Senna twice daily Milk of magnesia daily as needed. (3) Depression with anxiety Is this a current diagnosis for this admission?: Yes Plan: Nursing reported that the patient had made statements regarding suicide. Patient reports that she was expressing frustration w/ frequency and severity of pain crisis. Denies depression, anxiety, SI/HI. Continue home dose Lexapro and Abilify. Offered mental health consultation; patient declined - Time Time Spent with patient: 15-24 minutes Medications reviewed and adjusted accordingly: Yes Anticipated discharge: Home Within: Other - when medically stable - Inpatient Certification Based on my medical assessment, after consideration of the patient's comorbidities, presenting symptoms, or acuity I expect that the services needed warrant INPATIENT care.: Yes I certify that my determination is in accordance with my understanding of Medicare's requirements for reasonable and necessary INPATIENT services [42 CFR 412.3e].: Yes Medical Necessity: Risk of Complication if Not Cared For in Hospital
[2018-09-08] MEDS: SENNOSIDES/DOCUSATE 8.6-50 MG 1 EACH TABLET PO SCH (17:21)
[2018-09-08] MEDS: RIVAROXABAN 10 MG TABLET PO SCH (17:21)
[2018-09-08] MEDS: KETOROLAC TROMETHAMINE INJ/PF 30 MG/1 ML SDV IV PRN (19:50)
[2018-09-08] MEDS: ARIPIPRAZOLE 5 MG TABLET PO SCH (21:00)
[2018-09-09] MEDS: DIPHENHYDRAMINE HCL 50 MG/ML VIAL IV PRN ×2 (01:11→20:10)
[2018-09-09] MEDS: HYDROMORPHONE HCL INJ/PF 2 MG/ML AMPULE IV PRN ×6 (01:11→20:02)
[2018-09-09] MEDS: NORMAL SALINE 1000 ML 1,000 ML IV PRN ×2 (01:14→15:31)
[2018-09-09 06:22] LABS: ABSOLUTE RETICS # 0.155 10^6/uL (0.028-0.122); HEMATOCRIT 20.5 % (36.0-47.0); MEAN CORPUSCULAR HEMOGLOBIN 36.5 pg (27.0-33.4); MEAN CORPUSCULAR HGB CONC 36.6 g/dL (32.0-36.0); MEAN CORPUSCULAR VOLUME 100 fl (80-97); PLATELET COUNT 302 10^3/uL (150-450); RED BLOOD COUNT 2.06 10^6/uL (3.72-5.28); RED CELL DISTRIBUTION WIDTH 18.1 % (11.5-14.0); RETICULOCYTE COUNT (AUTO) 7.52 % (0.66-2.85); WHITE BLOOD COUNT 11.1 10^3/uL (4.0-10.5)
[2018-09-09 06:28] LABS: HEMOGLOBIN 7.5 g/dL (12.0-15.5)
[2018-09-09] MEDS: HEPARIN SOD (PORCINE) 5,000 UNIT/ML 1 ML SYRINGE SUBCUT SCH ×3 (06:42→22:18)
--- NOTE | 2018-09-09 08:36 | PDOC CONSULTATION ---
Consultation Consult Date: 09/09/18 Attending physician:: BELEN CHEUNG Provider Consulted: JOIE MOREIRA Consult reason:: Known history of sickle cell disease here with crisis History of Present Illness Admission Date/PCP: 09/05/18 08:39 Patient complains of: Pain crisis History of Present Illness: CASSANDRA MIDDLETON is a 23 year old female with long-standing history of sickle cell disease with frequent pain crises, she had pain now for 3 to 4 days, prior to admission and was not controlled with oral medications at home, she was admitted for IV pain medication, IV fluids. Yesterday she was on Dilaudid 1 mg IV every 2 hours, we increased it to 2 mg IV every 2 hours, she still in significant pain so we will increase it to 3 mg today. She has other supportive medications on board. Continue with aggressive hydration planned. She does have drop in hemoglobin to the 7 range, we discussed that if it falls below 7 we will plan to transfuse 1 unit of packed red blood cell. Past Medical History Cardiac Medical History: Reports: DVT - RUE s/p port placement Pulmonary Medical History: Reports: Asthma, Bronchitis, Pneumonia EENT Medical History: Reports: None Neurological Medical History: Reports: None Endocrine Medical History: Reports: None Denies: Diabetes Mellitus Type 1, Diabetes Mellitus Type 2 Renal/ Medical History: Reports: None Malignancy Medical History: Reports: None GI Medical History: Reports: None Musculoskeltal Medical History: Reports: None Skin Medical History: Reports: None Psychiatric Medical History: Reports: Depression - [facility] 05/14/2016, General Anxiety Disorder Traumatic Medical History: Reports: None Hematology: Reports: Anemia, Sickle Cell Disease Denies: Bleeding Tendencies Past Surgical History Past Surgical History: Reports: Cholecystectomy - 06/28/2015, Vascular Surgery - port put in December,, Other - Port-A-Cath in right upper chest Social History Lives with: Family Smoking Status: Former Smoker Frequency of Alcohol Use: Social Hx Recreational Drug Use: No Drugs: None Hx Prescription Drug Abuse: No - Advance Directive Resuscitation Status: Full Code Family History Family History: Other - Sickle cell disease and sickle cell trait, asthma Parental Family History Reviewed: Yes Children Family History Reviewed: Yes Sibling(s) Family History Reviewed.: Yes Medication/Allergy Home Medications: Aripiprazole [Abilify 10 mg Tablet] 10 mg PO QHS 09/05/18 Folic Acid [Folvite 1 mg Tablet] 1 mg PO DAILY 09/05/18 Hydromorphone HCl [Dilaudid] 8 mg PO Q6 09/05/18 Hydroxyurea [Hydrea 500 mg Capsule] 500 mg PO BID 09/05/18 Oxycodone HCl [Oxy-Ir 5 mg Tablet] 5 mg PO Q6HP PRN 09/05/18 Rivaroxaban [Xarelto] 20 mg PO DAILY 09/05/18 Allergies/Adverse Reactions: morphine Allergy (Severe, Verified 09/05/18 01:32) RASH,SWELLING jacob peppers Adverse Reaction (Severe, Uncoded 08/31/18 14:39) throat closes Review of Systems Constitutional: ABSENT: chills, fever(s), headache(s), weight gain, weight loss Eyes: ABSENT: visual disturbances Ears: ABSENT: hearing changes Cardiovascular: ABSENT: chest pain, dyspnea on exertion, edema, orthropnea, palpitations Respiratory: ABSENT: cough, hemoptysis Gastrointestinal: ABSENT: abdominal pain, constipation, diarrhea, hematemesis, hematochezia, nausea, vomiting Genitourinary: ABSENT: dysuria, hematuria Musculoskeletal: ABSENT: joint swelling Integumentary: ABSENT: rash, wounds Neurological: ABSENT: abnormal gait, abnormal speech, confusion, dizziness, focal weakness, syncope Psychiatric: ABSENT: anxiety, depression, homidical ideation, suicidal ideation Endocrine: ABSENT: cold intolerance, heat intolerance, polydipsia, polyuria Hematologic/Lymphatic: ABSENT: easy bleeding, easy bruising Physical Exam Vital Signs: Temp Pulse Resp BP Pulse Ox 98.4 F 74 16 114/52 L 98 09/09/18 07:23 09/09/18 07:23 09/09/18 07:23 09/09/18 07:23 09/09/18 07:23 Intake & Output 09/08/18 09/09/18 09/10/18 06:59 06:59 06:59 Intake Total 5662 3220 Output Total 2550 Balance 3112 3220 Weight 69.1 kg 69.2 kg General appearance: PRESENT: no acute distress, well-developed, well-nourished Head exam: PRESENT: atraumatic, normocephalic Eye exam: PRESENT: conjunctiva pink, EOMI, PERRLA. ABSENT: scleral icterus Ear exam: PRESENT: normal external ear exam Mouth exam: PRESENT: moist, tongue midline Neck exam: ABSENT: carotid bruit, JVD, lymphadenopathy, thyromegaly Respiratory exam: PRESENT: clear to auscultation samaria. ABSENT: rales, rhonchi, wheezes Cardiovascular exam: PRESENT: RRR. ABSENT: diastolic murmur, rubs, systolic murmur Pulses: PRESENT: normal dorsalis pedis pul Vascular exam: PRESENT: normal capillary refill GI/Abdominal exam: PRESENT: normal bowel sounds, soft. ABSENT: distended, guarding, mass, organolmegaly, rebound, tenderness Rectal exam: PRESENT: deferred Extremities exam: PRESENT: full ROM. ABSENT: calf tenderness, clubbing, pedal edema Neurological exam: PRESENT: alert, awake, oriented to person, oriented to place, oriented to time, oriented to situation, CN II-XII grossly intact. ABSENT: motor sensory deficit Psychiatric exam: PRESENT: appropriate affect, normal mood. ABSENT: homicidal ideation, suicidal ideation Skin exam: PRESENT: dry, intact, warm. ABSENT: cyanosis, rash Results Laboratory Results: 09/09/18 05:15 09/06/18 06:30 09/09/18 05:15 WBC 11.1 H RBC 2.06 L Hgb 7.5 L Hct 20.5 L MCV 100 H MCH 36.5 H MCHC 36.6 H RDW 18.1 H Plt Count 302 Retic Count (auto) 7.52 H Absolute Retic 0.155 H Impressions: Chest X-Ray 09/05/18 06:17 IMPRESSION: No acute cardiopulmonary abnormality copyright 2011 [employer] All Rights Reserved Assessment & Plan - Diagnosis (1) Acute sickle cell crisis Is this a current diagnosis for this admission?: Yes Plan: Increase Dilaudid today, changed ketorolac to discontinue in 72 hours, continue with IV hydration, other supportive medications. 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 Is this a current diagnosis for this admission?: Yes Plan: Anemia secondary to sickle disease and crisis, plan to transfuse if hemoglobin gets under 7. We will follow.
[2018-09-09] MEDS: FAMOTIDINE 20 MG TABLET PO SCH ×2 (10:26→22:19)
[2018-09-09] MEDS: SENNOSIDES/DOCUSATE 8.6-50 MG 1 EACH TABLET PO SCH ×2 (10:26→17:38)
[2018-09-09] MEDS: DOCUSATE SODIUM 100 MG CAPSULE PO SCH ×2 (10:26→17:38)
[2018-09-09] MEDS: FOLIC ACID 1 MG TABLET PO SCH (10:26)
[2018-09-09] MEDS: ESCITALOPRAM OXALATE 10 MG TABLET PO SCH (10:26)
[2018-09-09] MEDS: HYDROXYUREA 500 MG CAPSULE PO SCH ×2 (10:26→17:39)
--- NOTE | 2018-09-09 16:15 | PDOC PROGRESS REPORT ---
Subjective Progress Note for:: 09/09/18 Subjective:: CASSANDRA MIDDLETON is a 23 year old female with a past medical history of sickle cell disease, DVT, depression and anxiety who was admitted 09/05/2018 for sickle cell crisis pain. Patient was seen on morning rounds. She is found resting in bed comfortably on room air. She does report that she is continuing to have generalized constant pain but it is improving. The patient was seen by Dr. Jimenez this morning, who recommends increasing her IV Dilaudid from 2 mg to 3 mg every 2 hours. Hgb has drifted 9.4 (admission) --> 7.5 (today). No plan for transfusion today. Will remain inpatient for treatment of her sickle cell crisis. Reason For Visit: SICKLE CELL PAIN CRISIS Physical Exam Vital Signs: Temp Pulse Resp BP Pulse Ox 98.0 F 78 16 97/51 L 95 09/09/18 16:02 09/09/18 16:02 09/09/18 16:02 09/09/18 16:02 09/09/18 16:02 Intake & Output 09/08/18 09/09/18 09/10/18 06:59 06:59 06:59 Intake Total 5662 4220 Output Total 2550 Balance 3112 4220 Weight 69.1 kg 69.2 kg General appearance: PRESENT: no acute distress, well-developed, well-nourished Head exam: PRESENT: atraumatic, normocephalic Eye exam: PRESENT: conjunctiva pink, EOMI, PERRLA. ABSENT: scleral icterus Ear exam: PRESENT: normal external ear exam Mouth exam: PRESENT: moist, tongue midline Neck exam: ABSENT: carotid bruit, JVD, lymphadenopathy, thyromegaly Respiratory exam: PRESENT: clear to auscultation samaria. ABSENT: rales, rhonchi, wheezes Cardiovascular exam: PRESENT: RRR. ABSENT: diastolic murmur, rubs, systolic murmur Pulses: PRESENT: normal dorsalis pedis pul Vascular exam: PRESENT: normal capillary refill GI/Abdominal exam: PRESENT: normal bowel sounds, soft. ABSENT: distended, guarding, mass, organolmegaly, rebound, tenderness Rectal exam: PRESENT: deferred Extremities exam: PRESENT: full ROM. ABSENT: calf tenderness, clubbing, pedal edema Neurological exam: PRESENT: alert, awake, oriented to person, oriented to place, oriented to time, oriented to situation, CN II-XII grossly intact. ABSENT: motor sensory deficit Psychiatric exam: PRESENT: appropriate affect, normal mood. ABSENT: homicidal ideation, suicidal ideation Skin exam: PRESENT: dry, intact, warm. ABSENT: cyanosis, rash Results Laboratory Results: 09/09/18 05:15 09/06/18 06:30 09/09/18 05:15 WBC 11.1 H RBC 2.06 L Hgb 7.5 L Hct 20.5 L MCV 100 H MCH 36.5 H MCHC 36.6 H RDW 18.1 H Plt Count 302 Retic Count (auto) 7.52 H Absolute Retic 0.155 H Impressions: Chest X-Ray 09/05/18 06:17 IMPRESSION: No acute cardiopulmonary abnormality copyright 2011 [employer]- All Rights Reserved Status: Imported from PACS Assessment and Plan - Diagnosis (1) Sickle cell pain crisis Is this a current diagnosis for this admission?: Yes Plan: Hgb 9.4-> 7.5 Retic count 8.92-> 7.52 LDH on admission 287 The patient is admitted to the medical floor. Supplemental oxygen at 2 L/min continuously. Continuous IV fluids. PRN IV Dilaudid, Toradol, p.o. Tylenol - per Dr. Jimenez's recommendation, will increase dilaudid from 2mg-->3mg IV q2hr IV Benadryl as needed. Antiemetics as needed. Heating pad. Continue home dose hydroxyurea. Continue home dose folic acid. Daily CBC; transfuse for hemoglobin less than 7.0. (2) Constipation Qualifiers: Constipation type: drug induced constipation Qualified Code(s): K59.03 - Drug induced constipation Is this a current diagnosis for this admission?: Yes Plan: Resolved. Likely secondary to chronic opiate medications. Colace twice daily. Senna twice daily Milk of magnesia daily as needed. (3) Depression with anxiety Is this a current diagnosis for this admission?: Yes Plan: Denies depression, anxiety, SI/HI. Continue home dose Lexapro and Abilify. - Time Time Spent with patient: 15-24 minutes Medications reviewed and adjusted accordingly: Yes Anticipated discharge: Home Within: Other - When medically stable - Inpatient Certification Based on my medical assessment, after consideration of the patient's comorbidities, presenting symptoms, or acuity I expect that the services needed warrant INPATIENT care.: Yes I certify that my determination is in accordance with my understanding of Medicare's requirements for reasonable and necessary INPATIENT services [42 CFR 412.3e].: Yes Medical Necessity: Need for Pain Control
[2018-09-09] MEDS: RIVAROXABAN 10 MG TABLET PO SCH (17:38)
[2018-09-09] MEDS: ARIPIPRAZOLE 5 MG TABLET PO SCH (22:19)
[2018-09-10] MEDS: KETOROLAC TROMETHAMINE INJ/PF 30 MG/1 ML SDV IV PRN (00:17)
[2018-09-10] MEDS: NORMAL SALINE 1000 ML 1,000 ML IV PRN ×2 (00:18→10:32)
[2018-09-10] MEDS: HYDROMORPHONE HCL INJ/PF 2 MG/ML AMPULE IV PRN ×7 (05:04→22:43)
[2018-09-10] MEDS: HEPARIN SOD (PORCINE) 5,000 UNIT/ML 1 ML SYRINGE SUBCUT SCH ×3 (06:34→22:45)
--- NOTE | 2018-09-10 07:13 | PDOC PROGRESS REPORT ---
Subjective Progress Note for:: 09/10/18 Subjective:: Patient states that she is feeling fine. She states that pain medications are adequate. She does not wish to make any changes today. ROS: No headache, nausea, constipation. Reason For Visit: SICKLE CELL PAIN CRISIS Physical Exam Vital Signs: Temp Pulse Resp BP Pulse Ox 98.4 F 74 18 111/60 98 09/10/18 00:16 09/10/18 00:16 09/10/18 00:16 09/10/18 00:16 09/10/18 00:16 Intake & Output 09/09/18 09/10/18 09/11/18 06:59 06:59 06:59 Intake Total 4220 1850 Balance 4220 1850 Weight 69.2 kg 69.3 kg General appearance: PRESENT: well-developed, well-nourished Head exam: PRESENT: normocephalic Eye exam: PRESENT: EOMI Respiratory exam: PRESENT: clear to auscultation samaria, unlabored Cardiovascular exam: PRESENT: RRR Pulses: PRESENT: normal dorsalis pedis pul Extremities exam: ABSENT: pedal edema Neurological exam: PRESENT: alert, awake Psychiatric exam: PRESENT: appropriate affect Skin exam: PRESENT: normal color Results Laboratory Results: 09/09/18 05:15 09/06/18 06:30 Impressions: Chest X-Ray 09/05/18 06:17 IMPRESSION: No acute cardiopulmonary abnormality copyright 2011 [employer]- All Rights Reserved Assessment & Plan - Diagnosis (1) Sickle cell pain crisis Is this a current diagnosis for this admission?: Yes Plan: Continue current medications without changes today. Her HGB seems to have stabilized. No indication for blood transfusions. Dr. Baum to return jennifer banks to re-evaluate. I reviewed her CBC results with her today. A copy was given to her.
[2018-09-10] MEDS: SENNOSIDES/DOCUSATE 8.6-50 MG 1 EACH TABLET PO SCH ×2 (09:39→17:19)
[2018-09-10] MEDS: FAMOTIDINE 20 MG TABLET PO SCH ×2 (09:40→21:01)
[2018-09-10] MEDS: FOLIC ACID 1 MG TABLET PO SCH (09:40)
[2018-09-10] MEDS: DOCUSATE SODIUM 100 MG CAPSULE PO SCH ×2 (09:40→17:19)
[2018-09-10] MEDS: ESCITALOPRAM OXALATE 10 MG TABLET PO SCH (09:40)
[2018-09-10] MEDS: HYDROXYUREA 500 MG CAPSULE PO SCH ×2 (09:40→17:19)
[2018-09-10] MEDS: DIPHENHYDRAMINE HCL 50 MG/ML VIAL IV PRN ×3 (10:32→19:57)
[2018-09-10 10:49] LABS: ABSOLUTE RETICS # 0.212 10^6/uL (0.028-0.122); HEMATOCRIT 18.8 % (36.0-47.0); MEAN CORPUSCULAR HEMOGLOBIN 36.1 pg (27.0-33.4); MEAN CORPUSCULAR HGB CONC 36.4 g/dL (32.0-36.0); MEAN CORPUSCULAR VOLUME 99 fl (80-97); PLATELET COUNT 298 10^3/uL (150-450); RED BLOOD COUNT 1.89 10^6/uL (3.72-5.28); RED CELL DISTRIBUTION WIDTH 20.1 % (11.5-14.0); RETICULOCYTE COUNT (AUTO) 11.21 % (0.66-2.85); WHITE BLOOD COUNT 10.4 10^3/uL (4.0-10.5)
[2018-09-10 10:52] LABS: HEMOGLOBIN 6.8 g/dL (12.0-15.5)
[2018-09-10] MEDS ORDERED: NORMAL SALINE 250 ML IV PRN ×2 (11:18)
[2018-09-10] MEDS: ACETAMINOPHEN 325 MG TABLET PO PRN (13:38)
[2018-09-10] MEDS: RIVAROXABAN 10 MG TABLET PO SCH (17:19)
[2018-09-10 19:56] LABS: HEMATOCRIT 21.9 % (36.0-47.0); MEAN CORPUSCULAR HEMOGLOBIN 35.3 pg (27.0-33.4); MEAN CORPUSCULAR HGB CONC 36.3 g/dL (32.0-36.0); MEAN CORPUSCULAR VOLUME 97 fl (80-97); PLATELET COUNT 319 10^3/uL (150-450); RED BLOOD COUNT 2.25 10^6/uL (3.72-5.28); RED CELL DISTRIBUTION WIDTH 21.5 % (11.5-14.0); WHITE BLOOD COUNT 10.3 10^3/uL (4.0-10.5)
[2018-09-10 20:05] LABS: HEMOGLOBIN 7.9 g/dL (12.0-15.5)
[2018-09-10 20:23] LABS: ABSOLUTE LYMPHOCYTES# (MANUAL) 2.5 10^3/uL (0.5-4.7); ABSOLUTE MONOCYTES # (MANUAL) 0.6 10^3/uL (0.1-1.4); BASOPHILS % (MANUAL) 1 % (0-2); EOSINOPHILS % (MANUAL) 6 % (0-6); LYMPHOCYTES % (MANUAL) 24 % (13-45); MONOCYTES % (MANUAL) 6 % (3-13); NUCLEATED RED BLOOD CELLS 9 /100 WBC (0); SEGMENTED NEUTROPHILS % (MAN) 63 % (42-78); TOTAL CELLS COUNTED 100
[2018-09-10 20:24] LABS: ANISOCYTOSIS 2+; HYPOCHROMASIA SLIGHT; POLYCHROMASIA 1+
[2018-09-10 20:25] LABS: PLATELET COMMENT ADEQUATE; SCHISTOCYTES SLIGHT; SICKLE RED CELLS 2+; TARGET CELLS 2+
[2018-09-10] MEDS: ARIPIPRAZOLE 5 MG TABLET PO SCH (21:01)
[2018-09-11] MEDS: HYDROMORPHONE HCL INJ/PF 2 MG/ML AMPULE IV PRN ×8 (02:42→22:30)
[2018-09-11] MEDS: NORMAL SALINE 1000 ML 1,000 ML IV PRN ×4 (02:43→19:55)
[2018-09-11] MEDS: DIPHENHYDRAMINE HCL 50 MG/ML VIAL IV PRN ×2 (05:42→20:09)
[2018-09-11 06:45] LABS: ABSOLUTE RETICS # 0.225 10^6/uL (0.028-0.122); HEMATOCRIT 20.8 % (36.0-47.0); MEAN CORPUSCULAR HEMOGLOBIN 35.4 pg (27.0-33.4); MEAN CORPUSCULAR HGB CONC 36.8 g/dL (32.0-36.0); MEAN CORPUSCULAR VOLUME 96 fl (80-97); PLATELET COUNT 297 10^3/uL (150-450); RED BLOOD COUNT 2.15 10^6/uL (3.72-5.28); RED CELL DISTRIBUTION WIDTH 21.7 % (11.5-14.0); RETICULOCYTE COUNT (AUTO) 10.42 % (0.66-2.85); WHITE BLOOD COUNT 11.3 10^3/uL (4.0-10.5)
[2018-09-11 07:00] LABS: HEMOGLOBIN 7.6 g/dL (12.0-15.5)
[2018-09-11] MEDS: HEPARIN SOD (PORCINE) 5,000 UNIT/ML 1 ML SYRINGE SUBCUT SCH ×3 (07:12→21:51)
--- NOTE | 2018-09-11 08:35 | PDOC PROGRESS REPORT ---
Subjective Progress Note for:: 09/11/18 Subjective:: CASSANDRA MIDDLETON is a 23 year old female with a past medical history of sickle cell disease, DVT, depression and anxiety who was admitted 09/05/2018 for sickle cell crisis pain. Patient was seen on morning rounds. She is found resting in bed comfortably on nasal cannula. She does report that she is continuing to have generalized constant pain but states the nick medication helps alleviate her pain. The patient is dozing off during the interview. Patient states she is able to have regular bowel movements. Hgb has drifted 9.4 (admission) --> 6.8 (today). Plan for transfusion today. Will remain inpatient for treatment of her sickle cell crisis. Reason For Visit: SICKLE CELL PAIN CRISIS Physical Exam Vital Signs: Temp Pulse Resp BP Pulse Ox 98.2 F 68 18 112/62 98 09/11/18 03:06 09/11/18 03:06 09/11/18 03:06 09/11/18 03:06 09/11/18 03:06 Intake & Output 09/10/18 09/11/18 09/12/18 06:59 06:59 06:59 Intake Total 2850 0 Balance 2850 0 Weight 69.3 kg 70.2 kg General appearance: PRESENT: no acute distress, well-developed, well-nourished Head exam: PRESENT: atraumatic, normocephalic Eye exam: PRESENT: conjunctiva pink, EOMI, PERRLA. ABSENT: scleral icterus Ear exam: PRESENT: normal external ear exam Mouth exam: PRESENT: moist, tongue midline Neck exam: ABSENT: carotid bruit, JVD, lymphadenopathy, thyromegaly Respiratory exam: PRESENT: clear to auscultation samaria. ABSENT: rales, rhonchi, wheezes Cardiovascular exam: PRESENT: RRR. ABSENT: diastolic murmur, rubs, systolic murmur Pulses: PRESENT: normal dorsalis pedis pul Vascular exam: PRESENT: normal capillary refill GI/Abdominal exam: PRESENT: normal bowel sounds, soft. ABSENT: distended, guarding, mass, organolmegaly, rebound, tenderness Rectal exam: PRESENT: deferred Extremities exam: PRESENT: full ROM. ABSENT: calf tenderness, clubbing, pedal edema Neurological exam: PRESENT: alert, awake, oriented to person, oriented to place, oriented to time, oriented to situation, CN II-XII grossly intact. ABSENT: motor sensory deficit Psychiatric exam: PRESENT: appropriate affect, normal mood. ABSENT: homicidal ideation, suicidal ideation Skin exam: PRESENT: dry, intact, warm. ABSENT: cyanosis, rash Results Laboratory Results: 09/11/18 06:29 09/06/18 06:30 09/10/18 09/10/18 09/10/18 10:20 11:41 19:35 WBC 10.4 10.3 RBC 1.89 L 2.25 L Hgb 6.8 L 7.9 L Hct 18.8 L 21.9 L MCV 99 H 97 MCH 36.1 H 35.3 H MCHC 36.4 H 36.3 H RDW 20.1 H 21.5 H Plt Count 298 319 Seg Neutrophils % Not Reportable Lymphocytes % Not Reportable Monocytes % Not Reportable Eosinophils % Not Reportable Basophils % Not Reportable Absolute Neutrophils Not Reportable Absolute Lymphocytes Not Reportable Absolute Monocytes Not Reportable Absolute Eosinophils Not Reportable Absolute Basophils Not Reportable Retic Count (auto) 11.21 H Absolute Retic 0.212 H Blood Type O POSITIVE Antibody Screen NEGATIVE 09/11/18 06:29 WBC 11.3 H RBC 2.15 L Hgb 7.6 L Hct 20.8 L MCV 96 MCH 35.4 H MCHC 36.8 H RDW 21.7 H Plt Count 297 Seg Neutrophils % Lymphocytes % Monocytes % Eosinophils % Basophils % Absolute Neutrophils Absolute Lymphocytes Absolute Monocytes Absolute Eosinophils Absolute Basophils Retic Count (auto) 10.42 H Absolute Retic 0.225 H Blood Type Antibody Screen Impressions: Chest X-Ray 09/05/18 06:17 IMPRESSION: No acute cardiopulmonary abnormality copyright 2011 [employer]- All Rights Reserved Status: Imported from PACS Assessment and Plan - Diagnosis (1) Sickle cell pain crisis Is this a current diagnosis for this admission?: Yes Plan: Hgb 9.4-> 76.8 Retic count 8.92-> 7.52 LDH on admission 287 The patient is admitted to the medical floor. Supplemental oxygen at 2 L/min continuously. Continuous IV fluids. PRN IV Dilaudid, Toradol, p.o. Tylenol - per Dr. Jimenez's recommendation, will increase dilaudid from 2mg-->3mg IV q2hr IV Benadryl as needed. Antiemetics as needed. Heating pad. Continue home dose hydroxyurea. Continue home dose folic acid. Daily CBC; transfuse for hemoglobin less than 7.0. (2) Constipation Qualifiers: Constipation type: drug induced constipation Qualified Code(s): K59.03 - Drug induced constipation Is this a current diagnosis for this admission?: Yes Plan: Resolved. Patient reports having regular bowel movements Likely secondary to chronic opiate medications. Colace twice daily. Senna twice daily Milk of magnesia daily as needed. (3) Depression with anxiety Is this a current diagnosis for this admission?: Yes Plan: Denies depression, anxiety, SI/HI. Continue home dose Lexapro and Abilify. - Time Time Spent with patient: 15-24 minutes Medications reviewed and adjusted accordingly: Yes Anticipated discharge: Home Within: within 24 hours, within 48 hours - Inpatient Certification Based on my medical assessment, after consideration of the patient's comorbidities, presenting symptoms, or acuity I expect that the services needed warrant INPATIENT care.: Yes I certify that my determination is in accordance with my understanding of Medicare's requirements for reasonable and necessary INPATIENT services [42 CFR 412.3e].: Yes Medical Necessity: Need for Pain Control
--- NOTE | 2018-09-11 09:04 | PDOC PROGRESS REPORT ---
Subjective Progress Note for:: 09/11/18 Subjective:: Pain control appropriate, patient given 1 unit of packed red blood cells, hemoglobin is stable thereafter. Reason For Visit: SICKLE CELL PAIN CRISIS Physical Exam Vital Signs: Temp Pulse Resp BP Pulse Ox 98.2 F 68 18 112/62 98 09/11/18 03:06 09/11/18 03:06 09/11/18 03:06 09/11/18 03:06 09/11/18 03:06 Intake & Output 09/10/18 09/11/18 09/12/18 06:59 06:59 06:59 Intake Total 2852049 Balance 2852049 Weight 69.3 kg 70.2 kg General appearance: PRESENT: no acute distress, well-developed, well-nourished Head exam: PRESENT: atraumatic, normocephalic Eye exam: PRESENT: conjunctiva pink, EOMI, PERRLA. ABSENT: scleral icterus Ear exam: PRESENT: normal external ear exam Mouth exam: PRESENT: moist, tongue midline Neck exam: ABSENT: carotid bruit, JVD, lymphadenopathy, thyromegaly Respiratory exam: PRESENT: clear to auscultation samaria. ABSENT: rales, rhonchi, wheezes Cardiovascular exam: PRESENT: RRR. ABSENT: diastolic murmur, rubs, systolic murmur Pulses: PRESENT: normal dorsalis pedis pul Vascular exam: PRESENT: normal capillary refill GI/Abdominal exam: PRESENT: normal bowel sounds, soft. ABSENT: distended, guarding, mass, organolmegaly, rebound, tenderness Rectal exam: PRESENT: deferred Extremities exam: PRESENT: full ROM. ABSENT: calf tenderness, clubbing, pedal edema Neurological exam: PRESENT: alert, awake, oriented to person, oriented to place, oriented to time, oriented to situation, CN II-XII grossly intact. ABSENT: motor sensory deficit Psychiatric exam: PRESENT: appropriate affect, normal mood. ABSENT: homicidal ideation, suicidal ideation Skin exam: PRESENT: dry, intact, warm. ABSENT: cyanosis, rash Results Laboratory Results: 09/11/18 06:29 09/06/18 06:30 09/10/18 09/10/18 09/10/18 10:20 11:41 19:35 WBC 10.4 10.3 RBC 1.89 L 2.25 L Hgb 6.8 L 7.9 L Hct 18.8 L 21.9 L MCV 99 H 97 MCH 36.1 H 35.3 H MCHC 36.4 H 36.3 H RDW 20.1 H 21.5 H Plt Count 298 319 Seg Neutrophils % Not Reportable Lymphocytes % Not Reportable Monocytes % Not Reportable Eosinophils % Not Reportable Basophils % Not Reportable Absolute Neutrophils Not Reportable Absolute Lymphocytes Not Reportable Absolute Monocytes Not Reportable Absolute Eosinophils Not Reportable Absolute Basophils Not Reportable Retic Count (auto) 11.21 H Absolute Retic 0.212 H Blood Type O POSITIVE Antibody Screen NEGATIVE 09/11/18 06:29 WBC 11.3 H RBC 2.15 L Hgb 7.6 L Hct 20.8 L MCV 96 MCH 35.4 H MCHC 36.8 H RDW 21.7 H Plt Count 297 Seg Neutrophils % Lymphocytes % Monocytes % Eosinophils % Basophils % Absolute Neutrophils Absolute Lymphocytes Absolute Monocytes Absolute Eosinophils Absolute Basophils Retic Count (auto) 10.42 H Absolute Retic 0.225 H Blood Type Antibody Screen Impressions: Chest X-Ray 09/05/18 06:17 IMPRESSION: No acute cardiopulmonary abnormality copyright 2011 [employer]- All Rights Reserved Assessment & Plan - Diagnosis (1) Acute sickle cell crisis Is this a current diagnosis for this admission?: Yes Plan: Still ongoing, will need another 24 hours inpatient, continue with IV pain me dication and IV fluids. Continue other supportive medications. 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 Is this a current diagnosis for this admission?: Yes Plan: Been stable posttransfusion, follow, may need another transfusion if hemoglobin falls under 7.
[2018-09-11] MEDS: DOCUSATE SODIUM 100 MG CAPSULE PO SCH ×2 (10:14→17:51)
[2018-09-11] MEDS: SENNOSIDES/DOCUSATE 8.6-50 MG 1 EACH TABLET PO SCH ×2 (10:14→17:50)
[2018-09-11] MEDS: HYDROXYUREA 500 MG CAPSULE PO SCH ×2 (10:14→17:50)
[2018-09-11] MEDS: ESCITALOPRAM OXALATE 10 MG TABLET PO SCH (10:14)
[2018-09-11] MEDS: FOLIC ACID 1 MG TABLET PO SCH (10:14)
[2018-09-11] MEDS: FAMOTIDINE 20 MG TABLET PO SCH ×2 (10:14→22:30)
[2018-09-11] MEDS: RIVAROXABAN 10 MG TABLET PO SCH (17:50)
--- NOTE | 2018-09-11 21:02 | PDOC PROGRESS REPORT ---
Subjective Progress Note for:: 09/11/18 Subjective:: CASSANDRA MIDDLETON is a 23 year old female with a past medical history of sickle cell disease, DVT, depression and anxiety who was admitted 09/05/2018 for sickle cell crisis pain. Patient was seen on afternoon rounds. She is found sleeping in bed on nasal cannula. The patient is arousable but easily drifts off to sleep during the interview. She does not voice any concerns to me today. Hgb has drifted 9.4 (admission) --> 7.6 (today). No plan for transfusion today. Will remain inpatient for treatment of her sickle cell crisis per Heme/Onc recommendation. Reason For Visit: SICKLE CELL PAIN CRISIS Physical Exam Vital Signs: Temp Pulse Resp BP Pulse Ox 97.6 F 65 16 113/68 97 09/11/18 15:27 09/11/18 15:27 09/11/18 15:27 09/11/18 15:27 09/11/18 15:27 Intake & Output 09/10/18 09/11/18 09/12/18 06:59 06:59 06:59 Intake Total 2850 0 3782 Balance 2850 2050 3782 Weight 69.3 kg 70.2 kg 70.2 kg General appearance: PRESENT: no acute distress, well-developed, well-nourished Head exam: PRESENT: atraumatic, normocephalic Eye exam: PRESENT: conjunctiva pink, EOMI, PERRLA. ABSENT: scleral icterus Ear exam: PRESENT: normal external ear exam Mouth exam: PRESENT: moist, tongue midline Neck exam: ABSENT: carotid bruit, JVD, lymphadenopathy, thyromegaly Respiratory exam: PRESENT: clear to auscultation samaria. ABSENT: rales, rhonchi, wheezes Cardiovascular exam: PRESENT: RRR. ABSENT: diastolic murmur, rubs, systolic murmur Pulses: PRESENT: normal dorsalis pedis pul Vascular exam: PRESENT: normal capillary refill GI/Abdominal exam: PRESENT: normal bowel sounds, soft. ABSENT: distended, guarding, mass, organolmegaly, rebound, tenderness Rectal exam: PRESENT: deferred Extremities exam: PRESENT: full ROM. ABSENT: calf tenderness, clubbing, pedal edema Neurological exam: PRESENT: alert, awake, oriented to person, oriented to place, oriented to time, oriented to situation, CN II-XII grossly intact. ABSENT: motor sensory deficit Psychiatric exam: PRESENT: appropriate affect, normal mood. ABSENT: homicidal ideation, suicidal ideation Skin exam: PRESENT: dry, intact, warm. ABSENT: cyanosis, rash Results Laboratory Results: 09/11/18 06:29 09/06/18 06:30 09/11/18 06:29 WBC 11.3 H RBC 2.15 L Hgb 7.6 L Hct 20.8 L MCV 96 MCH 35.4 H MCHC 36.8 H RDW 21.7 H Plt Count 297 Retic Count (auto) 10.42 H Absolute Retic 0.225 H Impressions: Chest X-Ray 09/05/18 06:17 IMPRESSION: No acute cardiopulmonary abnormality copyright 2010 [employer]- All Rights Reserved Status: Imported from PACS Assessment and Plan - Diagnosis (1) Sickle cell pain crisis Is this a current diagnosis for this admission?: Yes Plan: Hgb 9.4-> 7.6 Retic count 8.92-> 10.42 LDH on admission 287 The patient is admitted to the medical floor. Supplemental oxygen at 2 L/min continuously. Continuous IV fluids. PRN IV Dilaudid, Toradol, p.o. Tylenol IV Benadryl as needed. Antiemetics as needed. Heating pad. Continue home dose hydroxyurea. Continue home dose folic acid. Daily CBC; transfuse for hemoglobin less than 7.0. Patient is now s/p 1 U PRBC this hospitalization (2) Constipation Qualifiers: Constipation type: drug induced constipation Qualified Code(s): K59.03 - Drug induced constipation Is this a current diagnosis for this admission?: Yes Plan: Resolved. Patient reports having regular bowel movements Likely secondary to chronic opiate medications. Colace twice daily. Senna twice daily Milk of magnesia daily as needed. (3) Depression with anxiety Is this a current diagnosis for this admission?: Yes Plan: Continue home dose Lexapro and Abilify. - Time Time Spent with patient: 15-24 minutes Anticipated discharge: Home Within: within 24 hours, within 48 hours - Inpatient Certification Based on my medical assessment, after consideration of the patient's comorbidities, presenting symptoms, or acuity I expect that the services needed warrant INPATIENT care.: Yes I certify that my determination is in accordance with my understanding of Medicare's requirements for reasonable and necessary INPATIENT services [42 CFR 412.3e].: Yes Medical Necessity: Need for Pain Control
[2018-09-11] MEDS: ARIPIPRAZOLE 5 MG TABLET PO SCH (22:29)
[2018-09-12] MEDS: HYDROMORPHONE HCL INJ/PF 2 MG/ML AMPULE IV PRN ×7 (00:44→19:32)
[2018-09-12] MEDS: NORMAL SALINE 1000 ML 1,000 ML IV PRN ×2 (00:45→05:48)
[2018-09-12] MEDS: DIPHENHYDRAMINE HCL 50 MG/ML VIAL IV PRN ×4 (00:49→20:39)
[2018-09-12] MEDS: HEPARIN SOD (PORCINE) 5,000 UNIT/ML 1 ML SYRINGE SUBCUT SCH ×3 (05:55→22:57)
[2018-09-12 06:08] LABS: ABSOLUTE RETICS # 0.197 10^6/uL (0.028-0.122); HEMATOCRIT 20.1 % (36.0-47.0); MEAN CORPUSCULAR HEMOGLOBIN 35.6 pg (27.0-33.4); MEAN CORPUSCULAR HGB CONC 36.5 g/dL (32.0-36.0); MEAN CORPUSCULAR VOLUME 98 fl (80-97); PLATELET COUNT 294 10^3/uL (150-450); RED BLOOD COUNT 2.06 10^6/uL (3.72-5.28); RED CELL DISTRIBUTION WIDTH 24.1 % (11.5-14.0); RETICULOCYTE COUNT (AUTO) 9.54 % (0.66-2.85); WHITE BLOOD COUNT 9.4 10^3/uL (4.0-10.5)
[2018-09-12 06:13] LABS: HEMOGLOBIN 7.3 g/dL (12.0-15.5)
[2018-09-12] MEDS: SENNOSIDES/DOCUSATE 8.6-50 MG 1 EACH TABLET PO SCH ×2 (09:11→17:48)
[2018-09-12] MEDS: DOCUSATE SODIUM 100 MG CAPSULE PO SCH ×2 (09:11→17:48)
[2018-09-12] MEDS: ESCITALOPRAM OXALATE 10 MG TABLET PO SCH (09:11)
[2018-09-12] MEDS: HYDROXYUREA 500 MG CAPSULE PO SCH ×2 (09:11→17:48)
[2018-09-12] MEDS: FAMOTIDINE 20 MG TABLET PO SCH ×2 (09:11→22:33)
[2018-09-12] MEDS: FOLIC ACID 1 MG TABLET PO SCH (11:38)
--- NOTE | 2018-09-12 11:48 | PDOC PROGRESS REPORT ---
Subjective Progress Note for:: 09/12/18 Subjective:: Patient's pain is better, of note when she was off oxygen earlier this morning her O2 sat dropped to 85%. She does feel somewhat short of breath. She is drinking good fluids, and pain seems better. Reason For Visit: SICKLE CELL PAIN CRISIS Physical Exam Vital Signs: Temp Pulse Resp BP Pulse Ox 98.6 F 70 15 118/74 98 09/12/18 11:00 09/12/18 11:00 09/12/18 11:00 09/12/18 11:00 09/12/18 11:00 Intake & Output 09/11/18 09/12/18 09/13/18 06:59 06:59 06:59 Intake Total 2049 6099 Balance 2049 60 Weight 70.2 kg 71 kg General appearance: PRESENT: no acute distress, well-developed, well-nourished Head exam: PRESENT: atraumatic, normocephalic Eye exam: PRESENT: conjunctiva pink, EOMI, PERRLA. ABSENT: scleral icterus Ear exam: PRESENT: normal external ear exam Mouth exam: PRESENT: moist, tongue midline Neck exam: ABSENT: carotid bruit, JVD, lymphadenopathy, thyromegaly Respiratory exam: PRESENT: clear to auscultation samaria. ABSENT: rales, rhonchi, w heezes Cardiovascular exam: PRESENT: RRR. ABSENT: diastolic murmur, rubs, systolic murmur Pulses: PRESENT: normal dorsalis pedis pul Vascular exam: PRESENT: normal capillary refill GI/Abdominal exam: PRESENT: normal bowel sounds, soft. ABSENT: distended, guarding, mass, organolmegaly, rebound, tenderness Rectal exam: PRESENT: deferred Extremities exam: PRESENT: full ROM. ABSENT: calf tenderness, clubbing, pedal edema Neurological exam: PRESENT: alert, awake, oriented to person, oriented to place, oriented to time, oriented to situation, CN II-XII grossly intact. ABSENT: motor sensory deficit Psychiatric exam: PRESENT: appropriate affect, normal mood. ABSENT: homicidal ideation, suicidal ideation Skin exam: PRESENT: dry, intact, warm. 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 DC IV fluids, get chest x-ray, discussed with Nitza Robles to follow-up. - Time Time Spent with patient: 35 or more minutes - Inpatient Certification Based on my medical assessment, after consideration of the patient's comorbidities, presenting symptoms, or acuity I expect that the services needed warrant INPATIENT care.: Yes I certify that my determination is in accordance with my understanding of Medicare's requirements for reasonable and necessary INPATIENT services [42 CFR 412.3e].: Yes Medical Necessity: Need for Pain Control
--- NOTE | 2018-09-12 12:51 | RADIOLOGY REPORT (SQ) ---
EXAM DESCRIPTION: CHEST 2 VIEWS COMPLETED DATE/TIME: 09/12/2018 12:20 pm REASON FOR STUDY: hypoxia COMPARISON: AP chest 09/05/2018, 08/31/2018 EXAM PARAMETERS: NUMBER OF VIEWS: two views TECHNIQUE: Digital Frontal and Lateral radiographic views of the chest acquired. RADIATION DOSE: NA LIMITATIONS: none FINDINGS: LUNGS AND PLEURA: There is now patchy consolidation at both lung bases, and trace right pl eural effusion new compared to 09/05/2018. Findings are worrisome for pneumonia versus sickle cell cri sis. No pneumothorax. MEDIASTINUM AND HILAR STRUCTURES: No masses or contour abnormalities. HEART AND VASCULAR STRUCTURES: Heart normal size. No evidence for failure. BONES: No acute findings. HARDWARE: Right-sided permanent central line tip superior vena cava OTHER: No other significant finding. IMPRESSION: Bibasilar consolidation with trace right pleural effusion, pneumonia versus sickle cell crisis TECHNICAL DOCUMENTATION: JOB ID: [id number]- All Rights Reserved Reading location - IP/workstation name: [email or web address]
[2018-09-12] MEDS: AZITHROMYCIN 500 MG in DEXTROSE 5%-WATER 250 ML IV SCH (14:58)
--- NOTE | 2018-09-12 16:06 | RADIOLOGY REPORT (SQ) ---
EXAM DESCRIPTION: CT CHEST WITHOUT COMPLETED DATE/TIME: 09/12/2018 3:47 pm REASON FOR STUDY: acs vs pna COMPARISON: Same day chest radiograph and earlier TECHNIQUE: CT scan performed of the chest without intravenous contrast. Images reviewed with lung, soft tissue and bone windows. Reconstructed coronal and sagittal MPR images reviewed. All images st ored on PACS. All CT scanners at this facility use dose modulation, iterative reconstruction, and/or weight based d osing when appropriate to reduce radiation dose to as low as reasonably achievable (ALARA). [facility]: Dose Right [facility]: CareDose [facility]: Dose Right [facility]: Teradose 4D [facility]: [employer] RADIATION DOSE: CT Rad equipment meets quality standard of care and radiation dose reduction techniq ues were employed. CTDIvol: 7.2 mGy. DLP: 251 mGy-cm. mGy. LIMITATIONS: No technical limitations. FINDINGS: LUNGS AND PLEURA: Small layering right pleural effusion. Trace left pleural effusion. Pa tchy consolidations of the inferior right middle lobe and both lower lobes. No pneumothorax. No pul monary mass. HILAR AND MEDIASTINAL STRUCTURES: No mass visualized. Multiple prominent mediastinal lymph nodes, si milar to CT of 2018. No aneurysm visualized. HEART AND VASCULAR STRUCTURES: No aneurysm. No pericardial effusion. Mild cardiomegaly, similar to prior. UPPER ABDOMEN: Spleen is atrophic. Remainder the visualized upper abdominal structures have a normal noncontrast CT appearance. THYROID AND OTHER SOFT TISSUES: No masses. No adenopathy. BONES: Characteristic biconcave vertebral body endplate compressions and diffuse osseous sclerosis co nsistent patient's known history of sickle cell. HARDWARE: Right-sided chest port tip terminating in the proximal SVC. OTHER: No other significant findings. IMPRESSION: 1. Right middle lobe and bilateral lower lobe patchy consolidations representing atelectasis versus p neumonia. 2. Small right and trace left pleural effusions. TECHNICAL DOCUMENTATION: JOB ID: [id number] Quality ID # [id number]: Final reports with documentation of one or more dose reduction techniques (e.g., Au tomated exposure control, adjustment of the mA and/or kV according to patient size, use of iterative reconstruction technique) 2010 [employer]- All Rights Reserved Reading location - IP/workstation name: [email or web address]
[2018-09-12] MEDS: CEFTRIAXONE 2 GM/D5W RTU 2 GM/50 ML RTUPB IV SCH (16:28)
[2018-09-12] MEDS: RIVAROXABAN 10 MG TABLET PO SCH (16:28)
[2018-09-12] MEDS ORDERED: NORMAL SALINE 250 ML IV PRN ×2 (16:50)
[2018-09-12] MEDS ORDERED: FUROSEMIDE INJ/PF 20 MG/2 ML SDV IV ONE (16:51)
[2018-09-12] MEDS: ACETAMINOPHEN 325 MG TABLET PO PRN (20:04)
--- NOTE | 2018-09-12 22:08 | PDOC PROGRESS REPORT ---
Subjective Progress Note for:: 09/12/18 Subjective:: CASSANDRA MIDDLETON is a 23 year old female with a past medical history of sickle cell disease, DVT, depression and anxiety who was admitted 09/05/2018 for sickle cell crisis pain. Patient was seen on afternoon rounds. She is found sleeping in bed on nasal cannula. She is arousable to verbal stimuli. LCTA. No peripheral or central cyanosis. Nursing staff noted that the patient will drop her SPO2 to the 80s if she is without her nasal cannula. The patient endorses SOB when ambulating to the bathroom. CXR done today shows bibasilar patchy opacifications R>L, small bilateral pleural effusions. Concern for atelectasis vs PNA vs acute chest syndrome. CT chest shows the same. Dr. Jimenez notified. Plan to transfuse 1 U PRBC for improved oxygen exchange. Will give Lasix one time following the transfusions. The patient will remain at [facility] for possible ACS. Reason For Visit: SICKLE CELL PAIN CRISIS Physical Exam Vital Signs: Temp Pulse Resp BP Pulse Ox 98.1 F 70 19 113/62 96 09/12/18 20:40 09/12/18 20:40 09/12/18 20:40 09/12/18 20:40 09/12/18 20:40 Intake & Output 09/11/18 09/12/18 09/13/18 06:59 06:59 06:59 Intake Total 2049 6099 1792 Balance 2049 6099 1792 Weight 70.2 kg 71 kg General appearance: PRESENT: no acute distress, well-developed, well-nourished Head exam: PRESENT: atraumatic, normocephalic Eye exam: PRESENT: conjunctiva pink, EOMI, PERRLA. ABSENT: scleral icterus Ear exam: PRESENT: normal external ear exam Mouth exam: PRESENT: moist, tongue midline Neck exam: ABSENT: carotid bruit, JVD, lymphadenopathy, thyromegaly Respiratory exam: PRESENT: clear to auscultation samaria, symmetrical, unlabored, other - REQUIRING THE USE OF NASAL CANNULA. ABSENT: rales, rhonchi, wheezes Cardiovascular exam: PRESENT: RRR. ABSENT: diastolic murmur, rubs, systolic murmur Pulses: PRESENT: normal radial pulses, normal dorsalis pedis pul Vascular exam: PRESENT: normal capillary refill GI/Abdominal exam: PRESENT: normal bowel sounds, soft. ABSENT: distended, guarding, mass, organolmegaly, rebound, tenderness Rectal exam: PRESENT: deferred Extremities exam: PRESENT: full ROM. ABSENT: calf tenderness, clubbing, pedal edema Musculoskeletal exam: PRESENT: full ROM Neurological exam: PRESENT: alert, awake, oriented to person, oriented to place, oriented to time, oriented to situation Psychiatric exam: PRESENT: appropriate affect, normal mood. ABSENT: homicidal ideation, suicidal ideation Skin exam: PRESENT: dry, intact, warm. ABSENT: cyanosis, rash Results Laboratory Results: 09/12/18 05:46 09/06/18 06:30 09/10/18 09/12/18 11:41 05:46 WBC 9.4 RBC 2.06 L Hgb 7.3 L Hct 20.1 L MCV 98 H MCH 35.6 H MCHC 36.5 H RDW 24.1 H Plt Count 294 Retic Count (auto) 9.54 H Absolute Retic 0.197 H Blood Type O POSITIVE Antibody Screen NEGATIVE Impressions: Chest X-Ray 09/12/18 00:00 IMPRESSION: Bibasilar consolidation with trace right pleural effusion, pneumonia versus sickle cell crisis Chest CT 09/12/18 14:10 IMPRESSION: 1. Right middle lobe and bilateral lower lobe patchy consolidations representing atelectasis versus pneumonia. 2. Small right and trace left pleural effusions. Status: Imported from PACS Assessment and Plan - Diagnosis (1) Acute chest syndrome Is this a current diagnosis for this admission?: Yes Plan: Concern for ACS based on patient's hypoxia and radiographic findings of bibasilar opacifications on CXR and CT Moderate to severe based on her significant hypoxia Afebrile Patient endorses SOB with exertion (when on room air) Plan for 1U PRBC transfusion today Treat empirically for community acquired PNA Supplemental O2 via nasal cannula for SPO2 > 92% Continuous pulse oximetry Monitor closely for s/s respiratory compromise If patient's respiratory status should decline, consider transfer to a tertiary facility (2) Sickle cell pain crisis Is this a current diagnosis for this admission?: Yes Plan: Hgb 9.4-> 7.3 Retic count 8.92-> 9.54 LDH on admission 287 The patient is admitted to the medical floor. Supplemental oxygen at 2 L/min continuously. Continuous IV fluids. PRN IV Dilaudid, Toradol, p.o. Tylenol IV Benadryl as needed. Antiemetics as needed. Heating pad. Continue home dose hydroxyurea. Continue home dose folic acid. Daily CBC; transfuse for hemoglobin less than 7.0. (3) Constipation Qualifiers: Constipation type: outlet dysfunction constipation Qualified Code(s): K59.02 - Outlet dysfunction constipation Is this a current diagnosis for this admission?: Yes Plan: Resolved. Patient reports having regular bowel movements Likely secondary to chronic opiate medications. Colace twice daily. Senna twice daily Milk of magnesia daily as needed. (4) Depression with anxiety Is this a current diagnosis for this admission?: Yes Plan: Continue home dose Lexapro and Abilify.
[2018-09-12] MEDS: ARIPIPRAZOLE 5 MG TABLET PO SCH (22:33)
[2018-09-13] MEDS ORDERED: FUROSEMIDE INJ/PF 20 MG/2 ML SDV ONE (00:11)
[2018-09-13] MEDS: HYDROMORPHONE HCL INJ/PF 2 MG/ML AMPULE IV PRN ×7 (00:32→22:45)
[2018-09-13 02:52] LABS: HEMATOCRIT 25.4 % (36.0-47.0); HEMOGLOBIN 9.1 g/dL (12.0-15.5); MEAN CORPUSCULAR HEMOGLOBIN 34.5 pg (27.0-33.4); MEAN CORPUSCULAR HGB CONC 35.9 g/dL (32.0-36.0); MEAN CORPUSCULAR VOLUME 96 fl (80-97); PLATELET COUNT 337 10^3/uL (150-450); RED BLOOD COUNT 2.64 10^6/uL (3.72-5.28); RED CELL DISTRIBUTION WIDTH 24.6 % (11.5-14.0)
[2018-09-13 03:03] LABS: ABSOLUTE MONOCYTES # (MANUAL) 0.4 10^3/uL (0.1-1.4); BASOPHILS % (MANUAL) 1 % (0-2); EOSINOPHILS % (MANUAL) 10 % (0-6); LYMPHOCYTES % (MANUAL) 21 % (13-45); MONOCYTES % (MANUAL) 5 % (3-13); NUCLEATED RED BLOOD CELLS 20 /100 WBC (0); SEGMENTED NEUTROPHILS % (MAN) 63 % (42-78); TOTAL CELLS COUNTED 100
[2018-09-13 03:06] LABS: ABSOLUTE LYMPHOCYTES# (MANUAL) 1.8 10^3/uL (0.5-4.7); ANISOCYTOSIS 3+; HYPOCHROMASIA 1+; PLATELET COMMENT ADEQUATE; POLYCHROMASIA 2+
[2018-09-13 03:07] LABS: SICKLE RED CELLS 1+; TARGET CELLS 2+; WHITE BLOOD COUNT 8.6 10^3/uL (4.0-10.5)
[2018-09-13 05:41] LABS: ABSOLUTE RETICS # 0.234 10^6/uL (0.028-0.122); HEMATOCRIT 24.3 % (36.0-47.0); HEMOGLOBIN 8.9 g/dL (12.0-15.5); MEAN CORPUSCULAR HEMOGLOBIN 35.2 pg (27.0-33.4); MEAN CORPUSCULAR HGB CONC 36.6 g/dL (32.0-36.0); MEAN CORPUSCULAR VOLUME 96 fl (80-97); PLATELET COUNT 311 10^3/uL (150-450); RED BLOOD COUNT 2.53 10^6/uL (3.72-5.28); RED CELL DISTRIBUTION WIDTH 23.8 % (11.5-14.0); RETICULOCYTE COUNT (AUTO) 9.22 % (0.66-2.85)
[2018-09-13] MEDS: HEPARIN SOD (PORCINE) 5,000 UNIT/ML 1 ML SYRINGE SUBCUT SCH ×3 (06:04→21:40)
[2018-09-13 06:15] LABS: ALANINE AMINOTRANSFERASE 37 U/L (9-52); ALBUMIN 3.6 g/dL (3.5-5.0); ALKALINE PHOSPHATASE 78 U/L (38-126); ANION GAP 9 (5-19); ASPARTATE AMINO TRANSFERASE 36 U/L (14-36); BILIRUBIN,DIRECT 0.7 mg/dL (0.0-0.4); BILIRUBIN,TOTAL 5.7 mg/dL (0.2-1.3); BLOOD UREA NITROGEN 6 mg/dL (7-20); CARBON DIOXIDE 29 mmol/L (22-30); CHLORIDE 105 mmol/L (98-107); GLUCOSE 128 mg/dL (75-110); POTASSIUM 3.6 mmol/L (3.6-5.0); SODIUM 142.9 mmol/L (137-145); TOTAL PROTEIN 6.6 g/dL (6.3-8.2)
[2018-09-13 06:24] LABS: WHITE BLOOD COUNT 8.9 10^3/uL (4.0-10.5)
[2018-09-13] MEDS: ESCITALOPRAM OXALATE 10 MG TABLET PO SCH (10:08)
[2018-09-13] MEDS: FAMOTIDINE 20 MG TABLET PO SCH ×2 (10:08→21:38)
[2018-09-13] MEDS: DOCUSATE SODIUM 100 MG CAPSULE PO SCH ×2 (10:08→17:47)
[2018-09-13] MEDS: SENNOSIDES/DOCUSATE 8.6-50 MG 1 EACH TABLET PO SCH ×2 (10:08→17:46)
[2018-09-13] MEDS: HYDROXYUREA 500 MG CAPSULE PO SCH ×2 (10:13→17:46)
[2018-09-13] MEDS: DIPHENHYDRAMINE HCL 50 MG/ML VIAL IV PRN ×2 (11:18→21:38)
--- NOTE | 2018-09-13 12:33 | PDOC PROGRESS REPORT ---
Subjective Progress Note for:: 09/13/18 Subjective:: Shortness of breath is improved. Yesterday we had a chest x-ray which showed patchy bilateral opacities consistent with either infection/pneumonia versus acute chest syndrome, CT of the chest was done and this indicated more of a pneumonia type picture. Antibiotics were initiated, and patient is doing better today. Reason For Visit: SICKLE CELL PAIN CRISIS Physical Exam Vital Signs: Temp Pulse Resp BP Pulse Ox 98.1 F 86 16 113/64 90 L 09/13/18 09:08 09/13/18 09:08 09/13/18 09:08 09/13/18 09:08 09/13/18 09:08 Pulse Oximeter Continuous Start: 09/12/18 22:03 Freq: RTQ4 Status: Active Protocol: Document 09/13/18 08:00 [facility] (Rec: 09/13/18 09:00 [facility] [id number]) Pulse Oximetry Assessment Oxygen Saturation (92-100) 96 Oxygen Flow Rate (L/min) 2 Oxygen Delivery Method Nasal Cannula Fraction of Inspired Oxygen (FIO2) 28 Equipment Usage Equipment in Use Continuous SpO2 Machine # 4 Intake & Output 09/12/18 09/13/18 09/14/18 06:59 06:59 06:59 Intake Total 6099 2932 Balance 6099 2932 Weight 71 kg 68.4 kg General appearance: PRESENT: no acute distress, well-developed, well-nourished Head exam: PRESENT: atraumatic, normocephalic Eye exam: PRESENT: conjunctiva pink, EOMI, PERRLA. ABSENT: scleral icterus Ear exam: PRESENT: normal external ear exam Mouth exam: PRESENT: moist, tongue midline Neck exam: ABSENT: carotid bruit, JVD, lymphadenopathy, thyromegaly Respiratory exam: PRESENT: clear to auscultation samaria. ABSENT: rales, rhonchi, wheezes Cardiovascular exam: PRESENT: RRR. ABSENT: diastolic murmur, rubs, systolic murmur Pulses: PRESENT: normal dorsalis pedis pul Vascular exam: PRESENT: normal capillary refill GI/Abdominal exam: PRESENT: normal bowel sounds, soft. ABSENT: distended, guarding, mass, organolmegaly, rebound, tenderness Rectal exam: PRESENT: deferred Extremities exam: PRESENT: full ROM. ABSENT: calf tenderness, clubbing, pedal edema Neurological exam: PRESENT: alert, awake, oriented to person, oriented to place, oriented to time, oriented to situation, CN II-XII grossly intact. ABSENT: motor sensory deficit Psychiatric exam: PRESENT: appropriate affect, normal mood. ABSENT: homicidal ideation, suicidal ideation Skin exam: PRESENT: dry, intact, warm. ABSENT: cyanosis, rash Results Laboratory Results: 09/13/18 05:26 09/13/18 05:26 09/10/18 09/13/18 09/13/18 11:41 02:35 05:26 WBC 8.6 8.9 RBC 2.64 L 2.53 L Hgb 9.1 L 8.9 L Hct 25.4 L 24.3 L MCV 96 96 MCH 34.5 H 35.2 H MCHC 35.9 36.6 H RDW 24.6 H 23.8 H Plt Count 337 311 Seg Neutrophils % Not Reportable Lymphocytes % Not Reportable Monocytes % Not Reportable Eosinophils % Not Reportable Basophils % Not Reportable Absolute Neutrophils Not Reportable Absolute Lymphocytes Not Reportable Absolute Monocytes Not Reportable Absolute Eosinophils Not Reportable Absolute Basophils Not Reportable Retic Count (auto) 9.22 H Absolute Retic 0.234 H Sodium Potassium Chloride Carbon Dioxide Anion Gap BUN Creatinine Est GFR ( Amer) Est GFR (Non-Af Amer) Glucose Calcium Total Bilirubin AST ALT Alkaline Phosphatase Total Protein Albumin Blood Type O POSITIVE Antibody Screen NEGATIVE 09/13/18 05:26 WBC RBC Hgb Hct MCV MCH MCHC RDW Plt Count Seg Neutrophils % Lymphocytes % Monocytes % Eosinophils % Basophils % Absolute Neutrophils Absolute Lymphocytes Absolute Monocytes Absolute Eosinophils Absolute Basophils Retic Count (auto) Absolute Retic Sodium 142.9 Potassium 3.6 Chloride 105 Carbon Dioxide 29 Anion Gap 9 BUN 6 L Creatinine 0.52 Est GFR ( Amer) > 60 Est GFR (Non-Af Amer) > 60 Glucose 128 H Calcium 9.0 Total Bilirubin 5.7 H AST 36 ALT 37 Alkaline Phosphatase 78 Total Protein 6.6 Albumin 3.6 Blood Type Antibody Screen Impressions: Chest X-Ray 09/12/18 00:00 IMPRESSION: Bibasilar consolidation with trace right pleural effusion, pneumonia versus sickle cell crisis Chest CT 09/12/18 14:10 IMPRESSION: 1. Right middle lobe and bilateral lower lobe patchy consolidations representing atelectasis versus pneumonia. 2. Small right and trace left pleural effusions. 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 We will see her oxygen needs later today. - Time Time Spent with patient: 35 or more minutes - Inpatient Certification Based on my medical assessment, after consideration of the patient's comorbidities, presenting symptoms, or acuity I expect that the services needed warrant INPATIENT care.: Yes I certify that my determination is in accordance with my understanding of Medicare's requirements for reasonable and necessary INPATIENT services [42 CFR 412.3e].: Yes Medical Necessity: Need for Pain Control, Need for IV Antibiotics, Risk of Complication if Not Cared For in Hospital
[2018-09-13] MEDS: AZITHROMYCIN 500 MG in DEXTROSE 5%-WATER 250 ML IV SCH (14:57)
[2018-09-13] MEDS: FOLIC ACID 1 MG TABLET PO SCH (15:53)
--- NOTE | 2018-09-13 16:49 | PDOC PROGRESS REPORT ---
Subjective Progress Note for:: 09/13/18 Subjective:: CASSANDRA MIDDLETON is a 23 year old female with a past medical history of sickle cell disease, DVT, depression and anxiety who was admitted 09/05/2018 for sickle cell crisis pain. Patient was seen on morning rounds. She is sitting up in bed, getting ready to eat lunch. The patient states that her HOU and SOB have improved today. Still endorses a mild cough, worse at night. On assessment, LCTA. No peripheral or central cyanosis. Nursing staff reports they were able to ambulate the patient around the unit on room air, her SPO2 remained >90% the entire time. The patient did not need to stop to catch her breath. CXR done yesterday showed bibasilar patchy opacifications R>L, small bilateral pleural effusions. Concern for PNA vs acute chest syndrome. CT chest showed the same. Patient was given 1 U PRBC and lasix. Plan to transfuse 1 U PRBC for improved oxygen exchange. Will give Lasix one time following the transfusions. The patient will remain at [facility] for possible ACS and continued treatment of her sick cell crisis. Reason For Visit: SICKLE CELL PAIN CRISIS Physical Exam Vital Signs: Temp Pulse Resp BP Pulse Ox 98.3 F 58 L 14 109/56 L 100 09/13/18 14:14 09/13/18 14:14 09/13/18 14:14 09/13/18 14:14 09/13/18 15:56 Pulse Oximeter Continuous Start: 09/12/18 22:03 Freq: RTQ4 Status: Active Protocol: Document 09/13/18 15:56 [facility] (Rec: 09/13/18 15:56 [facility] [id number]) Pulse Oximetry Assessment Oxygen Saturation (92-100) 100 Oxygen Flow Rate (L/min) 2 Oxygen Delivery Method Nasal Cannula Fraction of Inspired Oxygen (FIO2) 28 Equipment Usage Equipment in Use Continuous SpO2 Machine # N4 Intake & Output 09/12/18 09/13/18 09/14/18 06:59 06:59 06:59 Intake Total 6099 2932 Balance 6099 2932 Weight 71 kg 68.4 kg General appearance: PRESENT: no acute distress, well-developed, well-nourished Head exam: PRESENT: atraumatic, normocephalic Eye exam: PRESENT: conjunctiva pink, EOMI, PERRLA. ABSENT: scleral icterus Ear exam: PRESENT: normal external ear exam Mouth exam: PRESENT: moist, tongue midline Neck exam: ABSENT: carotid bruit, JVD, lymphadenopathy, thyromegaly Respiratory exam: PRESENT: clear to auscultation samaria, other - Requiring supplemental oxygen via nasal cannula. ABSENT: rales, rhonchi, wheezes Cardiovascular exam: PRESENT: RRR. ABSENT: diastolic murmur, rubs, systolic murmur Pulses: PRESENT: normal radial pulses, normal dorsalis pedis pul Vascular exam: PRESENT: normal capillary refill GI/Abdominal exam: PRESENT: normal bowel sounds, soft. ABSENT: distended, guarding, mass, organolmegaly, rebound, tenderness Rectal exam: PRESENT: deferred Extremities exam: PRESENT: full ROM. ABSENT: calf tenderness, clubbing, pedal edema Neurological exam: PRESENT: alert, awake, oriented to person, oriented to place, oriented to time, oriented to situation Psychiatric exam: PRESENT: appropriate affect, normal mood. ABSENT: homicidal ideation, suicidal ideation Skin exam: PRESENT: dry, intact, warm. ABSENT: cyanosis, rash Results Laboratory Results: 09/13/18 05:26 09/13/18 05:26 09/10/18 09/13/18 09/13/18 11:41 02:35 05:26 WBC 8.6 8.9 RBC 2.64 L 2.53 L Hgb 9.1 L 8.9 L Hct 25.4 L 24.3 L MCV 96 96 MCH 34.5 H 35.2 H MCHC 35.9 36.6 H RDW 24.6 H 23.8 H Plt Count 337 311 Seg Neutrophils % Not Reportable Lymphocytes % Not Reportable Monocytes % Not Reportable Eosinophils % Not Reportable Basophils % Not Reportable Absolute Neutrophils Not Reportable Absolute Lymphocytes Not Reportable Absolute Monocytes Not Reportable Absolute Eosinophils Not Reportable Absolute Basophils Not Reportable Retic Count (auto) 9.22 H Absolute Retic 0.234 H Sodium Potassium Chloride Carbon Dioxide Anion Gap BUN Creatinine Est GFR ( Amer) Est GFR (Non-Af Amer) Glucose Calcium Total Bilirubin AST ALT Alkaline Phosphatase Total Protein Albumin Blood Type O POSITIVE Antibody Screen NEGATIVE 09/13/18 05:26 WBC RBC Hgb Hct MCV MCH MCHC RDW Plt Count Seg Neutrophils % Lymphocytes % Monocytes % Eosinophils % Basophils % Absolute Neutrophils Absolute Lymphocytes Absolute Monocytes Absolute Eosinophils Absolute Basophils Retic Count (auto) Absolute Retic Sodium 142.9 Potassium 3.6 Chloride 105 Carbon Dioxide 29 Anion Gap 9 BUN 6 L Creatinine 0.52 Est GFR ( Amer) > 60 Est GFR (Non-Af Amer) > 60 Glucose 128 H Calcium 9.0 Total Bilirubin 5.7 H AST 36 ALT 37 Alkaline Phosphatase 78 Total Protein 6.6 Albumin 3.6 Blood Type Antibody Screen Impressions: Chest X-Ray 09/12/18 00:00 IMPRESSION: Bibasilar consolidation with trace right pleural effusion, pneumonia versus sickle cell crisis Chest CT 09/12/18 14:10 IMPRESSION: 1. Right middle lobe and bilateral lower lobe patchy consolidations representing atelectasis versus pneumonia. 2. Small right and trace left pleural effusions. Status: Imported from PACS Assessment and Plan - Diagnosis (1) Acute chest syndrome Is this a current diagnosis for this admission?: Yes Plan: Improving Concern for ACS based on patient's hypoxia and radiographic findings of bibasilar opacifications on CXR and CT Moderate to severe based on her significant hypoxia Afebrile Continue empiric treatment for community acquired PNA Supplemental O2 via nasal cannula for SPO2 > 92% Continuous pulse oximetry Monitor closely for s/s respiratory compromise If patient's respiratory status should decline, consider transfer to a tertiary facility (2) Sickle cell pain crisis Is this a current diagnosis for this admission?: Yes Plan: Hgb 9.4-> 8.9 Retic count 8.92-> 9.22 LDH on admission 287 The patient is admitted to the medical floor. Supplemental oxygen at 2 L/min continuously. Continuous IV fluids. PRN IV Dilaudid, Toradol, p.o. Tylenol IV Benadryl as needed. Antiemetics as needed. Heating pad. Continue home dose hydroxyurea. Continue home dose folic acid. Daily CBC; transfuse for hemoglobin less than 7.0. (3) Constipation Qualifiers: Constipation type: outlet dysfunction constipation Qualified Code(s): K59.02 - Outlet dysfunction constipation Is this a current diagnosis for this admission?: Yes Plan: Resolved. Patient reports having regular bowel movements Likely secondary to chronic opiate medications. Colace twice daily. Senna twice daily Milk of magnesia daily as needed. (4) Depression with anxiety Is this a current diagnosis for this admission?: Yes Plan: Continue home dose Lexapro and Abilify. - Time Time Spent with patient: 15-24 minutes Medications reviewed and adjusted accordingly: Yes Anticipated discharge: Home Within: within 24 hours, within 48 hours - Inpatient Certification Based on my medical assessment, after consideration of the patient's comorbidities, presenting symptoms, or acuity I expect that the services needed warrant INPATIENT care.: Yes I certify that my determination is in accordance with my understanding of Medicare's requirements for reasonable and necessary INPATIENT services [42 CFR 412.3e].: Yes Medical Necessity: Need for Pain Control, Risk of Complication if Not Cared For in Hospital
[2018-09-13] MEDS: CEFTRIAXONE 2 GM/D5W RTU 2 GM/50 ML RTUPB IV SCH (16:59)
[2018-09-13] MEDS: RIVAROXABAN 10 MG TABLET PO SCH (17:00)
[2018-09-13] MEDS: ARIPIPRAZOLE 5 MG TABLET PO SCH (21:37)
[2018-09-14] MEDS: HYDROMORPHONE HCL INJ/PF 2 MG/ML AMPULE IV PRN ×8 (01:25→23:43)
[2018-09-14] MEDS: HEPARIN SOD (PORCINE) 5,000 UNIT/ML 1 ML SYRINGE SUBCUT SCH ×2 (05:18→15:15)
[2018-09-14] MEDS: DIPHENHYDRAMINE HCL 50 MG/ML VIAL IV PRN ×4 (06:38→21:48)
--- NOTE | 2018-09-14 08:59 | PDOC PROGRESS REPORT ---
Subjective Progress Note for:: 09/14/18 Subjective:: Doing better, less hypoxic, reducing her pain medication today. If she is doing well by tomorrow, she may be able to be discharged on oral pain medications. Reason For Visit: SICKLE CELL PAIN CRISIS Physical Exam Vital Signs: Temp Pulse Resp BP Pulse Ox 97.8 F 55 L 16 105/50 L 98 09/14/18 07:54 09/14/18 07:54 09/14/18 07:54 09/14/18 07:54 09/14/18 07:54 Pulse Oximeter Continuous Start: 09/12/18 22:03 Freq: RTQ4 Status: Active Protocol: Document 09/14/18 04:28 [facility] (Rec: 09/14/18 04:28 [facility] [id number]) Pulse Oximetry Assessment Oxygen Saturation (92-100) 97 Oxygen Flow Rate (L/min) 2 Oxygen Delivery Method Nasal Cannula Fraction of Inspired Oxygen (FIO2) 28 Equipment Usage Equipment in Use Continuous SpO2 Machine # 4 Intake & Output 09/13/18 09/14/18 09/15/18 06:59 06:59 06:59 Intake Total 2982 450 Balance 2982 450 Weight 68.4 kg 67.7 kg General appearance: PRESENT: no acute distress, well-developed, well-nourished Head exam: PRESENT: atraumatic, normocephalic Eye exam: PRESENT: conjunctiva pink, EOMI, PERRLA. ABSENT: scleral icterus Ear exam: PRESENT: normal external ear exam Mouth exam: PRESENT: moist, tongue midline Neck exam: ABSENT: carotid bruit, JVD, lymphadenopathy, thyromegaly Respiratory exam: PRESENT: clear to auscultation samaria. ABSENT: rales, rhonchi, wheezes Cardiovascular exam: PRESENT: RRR. ABSENT: diastolic murmur, rubs, systolic murmur Pulses: PRESENT: normal dorsalis pedis pul Vascular exam: PRESENT: normal capillary refill GI/Abdominal exam: PRESENT: normal bowel sounds, soft. ABSENT: distended, guarding, mass, organolmegaly, rebound, tenderness Rectal exam: PRESENT: deferred Extremities exam: PRESENT: full ROM. ABSENT: calf tenderness, clubbing, pedal edema Neurological exam: PRESENT: alert, awake, oriented to person, oriented to place, oriented to time, oriented to situation, CN II-XII grossly intact. ABSENT: motor sensory deficit Psychiatric exam: PRESENT: appropriate affect, normal mood. ABSENT: homicidal ideation, suicidal ideation Skin exam: PRESENT: dry, intact, warm. ABSENT: cyanosis, rash Results Laboratory Results: 09/13/18 05:26 09/13/18 05:26 Impressions: Chest X-Ray 09/12/18 00:00 IMPRESSION: Bibasilar consolidation with trace right pleural effusion, pneumonia versus sickle cell crisis Chest CT 09/12/18 14:10 IMPRESSION: 1. Right middle lobe and bilateral lower lobe patchy consolidations representing atelectasis versus pneumonia. 2. Small right and trace left pleural effusions. 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 Is this a current diagnosis for this admission?: Yes Plan: Able post second transfusion, continue to monitor (3) Hypoxia Is this a current diagnosis for this admission?: Yes Plan: Secondary to what looks like a pneumonia, as opposed to chest syndrome, continue with current management (4) Pneumonia Qualifiers: Pneumonia type: due to unspecified organism Laterality: bilateral Lung location: upper lobe of lung Qualified Code(s): J18.1 - Lobar pneumonia, unsp ecified organism Is this a current diagnosis for this admission?: Yes Plan: Continue for another 24-hour IV antibiotic switch to oral prior to discharge - Time Time Spent with patient: 35 or more minutes - Inpatient Certification Based on my medical assessment, after consideration of the patient's comorbidities, presenting symptoms, or acuity I expect that the services needed warrant INPATIENT care.: Yes I certify that my determination is in accordance with my understanding of Medicare's requirements for reasonable and necessary INPATIENT services [42 CFR 412.3e].: Yes Medical Necessity: Need for Pain Control, Need for IV Antibiotics
[2018-09-14] MEDS: HYDROXYUREA 500 MG CAPSULE PO SCH ×2 (10:44→18:35)
[2018-09-14] MEDS: SENNOSIDES/DOCUSATE 8.6-50 MG 1 EACH TABLET PO SCH ×2 (10:44→17:43)
[2018-09-14] MEDS: DOCUSATE SODIUM 100 MG CAPSULE PO SCH ×2 (10:45→17:43)
[2018-09-14] MEDS: ESCITALOPRAM OXALATE 10 MG TABLET PO SCH (10:45)
[2018-09-14] MEDS: FAMOTIDINE 20 MG TABLET PO SCH ×2 (10:45→21:00)
[2018-09-14] MEDS: FOLIC ACID 1 MG TABLET PO SCH (10:45)
[2018-09-14 11:59] LABS: ABSOLUTE RETICS # 0.191 10^6/uL (0.028-0.122); HEMATOCRIT 26.3 % (36.0-47.0); HEMOGLOBIN 9.5 g/dL (12.0-15.5); MEAN CORPUSCULAR HEMOGLOBIN 35.3 pg (27.0-33.4); MEAN CORPUSCULAR VOLUME 98 fl (80-97); PLATELET COUNT 330 10^3/uL (150-450); RED BLOOD COUNT 2.68 10^6/uL (3.72-5.28); RED CELL DISTRIBUTION WIDTH 25.1 % (11.5-14.0); RETICULOCYTE COUNT (AUTO) 7.13 % (0.66-2.85)
[2018-09-14 12:51] LABS: WHITE BLOOD COUNT 7.7 10^3/uL (4.0-10.5)
[2018-09-14] MEDS: AZITHROMYCIN 500 MG in DEXTROSE 5%-WATER 250 ML IV SCH (15:09)
[2018-09-14] MEDS: CEFTRIAXONE 2 GM/D5W RTU 2 GM/50 ML RTUPB IV SCH (16:12)
[2018-09-14] MEDS: RIVAROXABAN 10 MG TABLET PO SCH (17:42)
--- NOTE | 2018-09-14 20:57 | PDOC PROGRESS REPORT ---
Subjective Progress Note for:: 09/14/18 Subjective:: CASSANDRA MIDDLETON is a 23 year old female with a past medical history of sickle cell disease, DVT, depression and anxiety who was admitted 09/05/2018 for sickle cell crisis pain. Patient was seen on morning rounds. She is sitting up in bed, friend is at the bedside. The patient states that her HOU and SOB have improved today. Her pain regimen was decreased today by Dr. Jimenez, she states she is still experiencing relief from the pain medication. On assessment, LCTA. No peripheral or central cyanosis. If patient is able to tolerate new regimen, will likely d/c home tomorrow. The patient will remain at [facility] for possible ACS and continued treatment of her sick cell crisis. Reason For Visit: SICKLE CELL PAIN CRISIS Physical Exam Vital Signs: Temp Pulse Resp BP Pulse Ox 98.5 F 75 14 111/53 L 98 09/14/18 16:11 09/14/18 16:11 09/14/18 16:11 09/14/18 16:11 09/14/18 16:35 Pulse Oximeter Continuous Start: 09/12/18 22:03 Freq: RTQ4 Status: Active Protocol: Document 09/14/18 16:35 [facility] (Rec: 09/14/18 17:14 [facility] [id number]) Pulse Oximetry Assessment Oxygen Saturation (92-100) 98 Oxygen Delivery Method Room Air Fraction of Inspired Oxygen (FIO2) 21 Equipment Usage Equipment in Use Continuous SpO2 Machine # 4 Intake & Output 09/13/18 09/14/18 09/15/18 06:59 06:59 06:59 Intake Total 2982 750 1102 Balance 2982 750 1102 Weight 68.4 kg 67.7 kg General appearance: PRESENT: no acute distress, well-developed, well-nourished Head exam: PRESENT: atraumatic, normocephalic Eye exam: PRESENT: conjunctiva pink, EOMI, PERRLA. ABSENT: scleral icterus Ear exam: PRESENT: normal external ear exam Mouth exam: PRESENT: moist, tongue midline Neck exam: ABSENT: carotid bruit, JVD, lymphadenopathy, thyromegaly Respiratory exam: PRESENT: clear to auscultation samaria. ABSENT: rales, rhonchi, wheezes Cardiovascular exam: PRESENT: RRR. ABSENT: diastolic murmur, rubs, systolic murmur Pulses: PRESENT: normal dorsalis pedis pul Vascular exam: PRESENT: normal capillary refill GI/Abdominal exam: PRESENT: normal bowel sounds, soft. ABSENT: distended, guard ing, mass, organolmegaly, rebound, tenderness Rectal exam: PRESENT: deferred Extremities exam: PRESENT: full ROM. ABSENT: calf tenderness, clubbing, pedal edema Neurological exam: PRESENT: alert, awake, oriented to person, oriented to place, oriented to time, oriented to situation, CN II-XII grossly intact. ABSENT: motor sensory deficit Psychiatric exam: PRESENT: appropriate affect, normal mood. ABSENT: homicidal ideation, suicidal ideation Skin exam: PRESENT: dry, intact, warm. ABSENT: cyanosis, rash Results Laboratory Results: 09/14/18 11:40 09/13/18 05:26 09/14/18 11:40 WBC 7.7 RBC 2.68 L Hgb 9.5 L Hct 26.3 L MCV 98 H MCH 35.3 H MCHC 36.0 RDW 25.1 H Plt Count 330 Retic Count (auto) 7.13 H Absolute Retic 0.191 H Impressions: Chest X-Ray 09/12/18 00:00 IMPRESSION: Bibasilar consolidation with trace right pleural effusion, pne umonia versus sickle cell crisis Chest CT 09/12/18 14:10 IMPRESSION: 1. Right middle lobe and bilateral lower lobe patchy consolidations representing atelectasis versus pneumonia. 2. Small right and trace left pleural effusions. Status: Imported from PACS Assessment and Plan - Diagnosis (1) Acute chest syndrome Is this a current diagnosis for this admission?: Yes Plan: Resolved Concern for ACS based on patient's hypoxia and radiographic findings of bibasilar opacifications on CXR and CT Moderate to severe based on her significant hypoxia Afebrile Continue empiric treatment for community acquired PNA Supplemental O2 via nasal cannula for SPO2 > 92% Continuous pulse oximetry Monitor closely for s/s respiratory compromise (2) Sickle cell pain crisis Is this a current diagnosis for this admission?: Yes Plan: Hgb 9.4-> 9.5 Retic count 8.92-> 7.13 LDH on admission 287 The patient is admitted to the medical floor. Supplemental oxygen at 2 L/min continuously. Continuous IV fluids. PRN IV Dilaudid, Toradol, p.o. Tylenol IV Benadryl as needed. Antiemetics as needed. Heating pad. Continue home dose hydroxyurea. Continue home dose folic acid. Daily CBC; transfuse for hemoglobin less than 7.0. (3) Constipation Qualifiers: Constipation type: outlet dysfunction constipation Qualified Code(s): K59.02 - Outlet dysfunction constipation Is this a current diagnosis for this admission?: Yes Plan: Resolved. Patient reports having regular bowel movements Likely secondary to chronic opiate medications. Colace twice daily. Senna twice daily Milk of magnesia daily as needed. (4) Depression with anxiety Is this a current diagnosis for this admission?: Yes Plan: Continue home dose Lexapro and Abilify. - Time Time Spent with patient: 15-24 minutes Medications reviewed and adjusted accordingly: Yes Anticipated discharge: Home Within: within 24 hours - Inpatient Certification Based on my medical assessment, after consideration of the patient's comorbidities, presenting symptoms, or acuity I expect that the services needed warrant INPATIENT care.: Yes I certify that my determination is in accordance with my understanding of Medicare's requirements for reasonable and necessary INPATIENT services [42 CFR 412.3e].: Yes Medical Necessity: Need for Pain Control, Risk of Complication if Not Cared For in Hospital
[2018-09-14] MEDS: ARIPIPRAZOLE 5 MG TABLET PO SCH (21:00)
[2018-09-15] MEDS: HYDROMORPHONE HCL INJ/PF 2 MG/ML AMPULE IV PRN ×3 (05:55→12:11)
[2018-09-15 06:24] LABS: ABSOLUTE RETICS # 0.204 10^6/uL (0.028-0.122); HEMATOCRIT 28.1 % (36.0-47.0); MEAN CORPUSCULAR HEMOGLOBIN 35.3 pg (27.0-33.4); MEAN CORPUSCULAR HGB CONC 35.5 g/dL (32.0-36.0); MEAN CORPUSCULAR VOLUME 100 fl (80-97); PLATELET COUNT 374 10^3/uL (150-450); RED BLOOD COUNT 2.82 10^6/uL (3.72-5.28); RED CELL DISTRIBUTION WIDTH 25.1 % (11.5-14.0); RETICULOCYTE COUNT (AUTO) 7.22 % (0.66-2.85); WHITE BLOOD COUNT 7.9 10^3/uL (4.0-10.5)
--- NOTE | 2018-09-15 08:47 | PDOC PROGRESS REPORT ---
Subjective Progress Note for:: 09/15/18 Subjective:: Patient improving, I believe she is ready for discharge today Reason For Visit: SICKLE CELL PAIN CRISIS Physical Exam Vital Signs: Temp Pulse Resp BP Pulse Ox 97.9 F 57 L 14 107/55 L 96 09/15/18 08:42 09/15/18 08:42 09/15/18 08:42 09/15/18 08:42 09/15/18 08:42 Pulse Oximeter Continuous Start: 09/12/18 22:03 Freq: RTQ4 Status: Active Protocol: Document 09/15/18 04:05 [facility] (Rec: 09/15/18 05:24 [facility] [id number]) Pulse Oximetry Assessment Oxygen Saturation (92-100) 93 Oxygen Delivery Method Room Air Fraction of Inspired Oxygen (FIO2) 21 Equipment Usage Equipment in Use Continuous Pulse Oximeter 24 Hour Charge Charge Now Continuous SpO2 Machine # 4 Intake & Output 09/14/18 09/15/18 09/16/18 06:59 06:59 06:59 Intake Total 750 1302 Balance 750 1302 Weight 67.7 kg 67.9 kg Results Laboratory Results: 09/15/18 05:51 09/13/18 05:26 09/14/18 09/15/18 11:40 05:51 WBC 7.7 7.9 RBC 2.68 L 2.82 L Hgb 9.5 L 10.0 L Hct 26.3 L 28.1 L MCV 98 H 100 H MCH 35.3 H 35.3 H MCHC 36.0 35.5 RDW 25.1 H 25.1 H Plt Count 330 374 Retic Count (auto) 7.13 H 7.22 H Absolute Retic 0.191 H 0.204 H Impressions: Chest X-Ray 09/12/18 00:00 IMPRESSION: Bibasilar consolidation with trace right pleural effusion, pneumonia versus sickle cell crisis Chest CT 09/12/18 14:10 IMPRESSION: 1. Right middle lobe and bilateral lower lobe patchy consolidations representing atelectasis versus pneumonia. 2. Small right and trace left pleural effusions. Assessment & Plan - Diagnosis (1) Acute sickle cell crisis Is this a current diagnosis for this admission?: Yes Plan: Resolved enough to discharge home, I gave patient a prescription for Dilaudid for 1 week. Follow-up next week with us. 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
[2018-09-15] MEDS: FOLIC ACID 1 MG TABLET PO SCH (10:00)
[2018-09-15] MEDS: SENNOSIDES/DOCUSATE 8.6-50 MG 1 EACH TABLET PO SCH (10:00)
[2018-09-15] MEDS ORDERED: AZITHROMYCIN 250 MG TABLET PO SCH (10:00)
[2018-09-15] MEDS: ESCITALOPRAM OXALATE 10 MG TABLET PO SCH (10:00)
[2018-09-15] MEDS: DOCUSATE SODIUM 100 MG CAPSULE PO SCH (10:00)
[2018-09-15] MEDS: FAMOTIDINE 20 MG TABLET PO SCH (10:00)
[2018-09-15] MEDS: HYDROXYUREA 500 MG CAPSULE PO SCH (10:04)
[2018-09-15 11:39] VITALS: BP 107/62
--- NOTE | 2018-09-15 21:48 | PDOC DISCHARGE SUMMARY ---
General - Admit/Disc Date/PCP Admission Date/Primary Care Provider: 09/05/18 08:39 Discharge Date: 09/15/18 - Discharge Diagnosis (1) Sickle cell pain crisis Is this a current diagnosis for this admission?: Yes Summary: Hgb 9.4-> 6.8 -> s/p PRBC 9.5 -> 10.0 Retic count 8.92-> 11.21-> 7.22 LDH on admission 287 The patient was admitted to the medical floor. She was supported with supplemental oxygen and continuous IV fluids. She was provided PRN IV Dilaudid, Toradol, p.o. Tylenol, IV Benadryl, and antiemetics as needed. Her home dose hydroxyurea and folic acid were continued. Hematology was consulted; appreciate Dr. Baum's and Dr. Madrigal's assistance. At time of discharge, patient was in stable condition, asymptomatic, and maintaining oxygen saturations on room air. She was discharged to home with self care. She is advised to continue her home medications as prescribed. Recommend that she follow up with her PCP within 1 week and with her remote broadcast technician as scheduled. (2) Constipation Is this a current diagnosis for this admission?: Yes Summary: Resolved. Patient reports having regular bowel movements Likely secondary to chronic opiate medications. (3) Depression with anxiety Is this a current diagnosis for this admission?: Yes Summary: Continue home dose Lexapro and Abilify. (4) History of DVT (deep vein thrombosis) Is this a current diagnosis for this admission?: Yes Summary: Continue home dose Xarelto. (5) Acute chest syndrome Is this a current diagnosis for this admission?: Yes Summary: Ruled out. (6) Pneumonia Is this a current diagnosis for this admission?: Yes Summary: Improved. Now maintaining oxygen saturations while ambulatory on room air; clear lung sounds w/ resolution of cough. Patient is afebrile with nml WBC. Patient is discharged on p.o. Levaquin to complete course of antibiotic therapy. - Additional Information Resuscitation Status: Full Code Discharge Diet: Regular Discharge Activity: Activity As Tolerated, Balance Activity w/Rest, Supervised Activity Prescriptions: Escitalopram Oxalate [Lexapro 10 mg Tablet] 10 mg PO DAILY #30 tablet Levofloxacin [Levaquin 750 mg Tablet] 750 mg PO DAILY #7 tablet Home Medications: Aripiprazole [Abilify 10 mg Tablet] 10 mg PO QHS 09/05/18 Folic Acid [Folvite 1 mg Tablet] 1 mg PO DAILY 09/05/18 Hydromorphone HCl [Dilaudid] 8 mg PO Q6 09/05/18 Hydroxyurea [Hydrea 500 mg Capsule] 500 mg PO BID 09/05/18 Oxycodone HCl [Oxy-Ir 5 mg Tablet] 5 mg PO Q6HP PRN 09/05/18 Rivaroxaban [Xarelto] 20 mg PO DAILY 09/05/18 Acetaminophen [Tylenol 325 mg Tablet] 650 mg PO Q4HP PRN tablet 09/15/18 Docusate Sodium [Colace 100 mg Capsule] 100 mg PO BID capsule 09/15/18 Escitalopram Oxalate [Lexapro 10 mg Tablet] 10 mg PO DAILY #30 tablet 09/15/18 Levofloxacin [Levaquin 750 mg Tablet] 750 mg PO DAILY #7 tablet 09/15/18 Sennosides/Docusate 8.6-50 mg [Senna Plus Tablet] 2 each PO BID tablet 09/15/18 History of Present Illness History of Present Illness: CASSANDRA MIDDLETON is a 23 year old female with a past medical history of sickle cell disease, DVT, depression and anxiety who presented to the emergency department today with a complaint of bilateral lower extremity and back pain similar to previous sickle cell crisis in the past. She reports that she has recently been transitioned from p.o. Dilaudid to p.o. oxycodone. Otherwise she cannot recall any potential exacerbating factors. She denies recent illness or environmental exposure. Evaluation in the emergency department reveals leukocytosis (WBCs 15.8) hemoglobin 9.4 (at baseline), with her to count of 8.92 and absolute retake of 0.230, chemistry is unremarkable, LDH elevated to 87, urinalysis is benign, and chest x-ray is negative for acute findings. She is referred to the hospitalist service for admission and management of intractable pain related to sickle cell crisis. Physical Exam Vital Signs: Temp Pulse Resp BP Pulse Ox 97.8 F 54 L 12 107/62 98 09/15/18 11:37 09/15/18 11:37 09/15/18 11:37 09/15/18 11:37 09/15/18 11:37 Pulse Oximeter Continuous Start: 09/12/18 22: 03 Freq: RTQ4 Status: Discharge Protocol: Document 09/15/18 08:59 [facility] (Rec: 09/15/18 08:59 [email or web address] [id number]) Pulse Oximetry Assessment Oxygen Saturation (92-100) 96 Oxygen Delivery Method Room Air Fraction of Inspired Oxygen (FIO2) 21 Equipment Usage Equipment in Use Continuous SpO2 Machine # 4 Intake & Output 09/14/18 09/15/18 09/16/18 06:59 06:59 06:59 Intake Total 750 1302 Balance 750 1302 Weight 67.7 kg 67.9 kg General appearance: PRESENT: no acute distress, cooperative, well-developed, well-nourished - overweight Head exam: PRESENT: atraumatic, normocephalic Eye exam: PRESENT: conjunctiva pink, EOMI, PERRLA. ABSENT: scleral icterus Ear exam: PRESENT: normal external ear exam Mouth exam: PRESENT: moist, tongue midline Neck exam: ABSENT: carotid bruit, JVD, lymphadenopathy, thyromegaly Respiratory exam: PRESENT: clear to auscultation samaria, symmetrical, unlabored. ABSENT: rales, rhonchi, wheezes Cardiovascular exam: PRESENT: RRR. ABSENT: diastolic murmur, rubs, systolic murmur Pulses: PRESENT: normal dorsalis pedis pul Vascular exam: PRESENT: normal capillary refill GI/Abdominal exam: PRESENT: normal bowel sounds, soft. ABSENT: distended, guarding, mass, organolmegaly, rebound, tenderness Rectal exam: PRESENT: deferred Extremities exam: PRESENT: full ROM. ABSENT: calf tenderness, clubbing, pedal edema Neurological exam: PRESENT: alert, awake, oriented to person, oriented to place, oriented to time, oriented to situation, CN II-XII grossly intact. ABSENT: motor sensory deficit Psychiatric exam: PRESENT: appropriate affect, normal mood. ABSENT: homicidal ideation, suicidal ideation Skin exam: PRESENT: dry, intact, warm. ABSENT: cyanosis, rash Results Laboratory Results: 09/15/18 05:51 09/13/18 05:26 09/15/18 05:51 WBC 7.9 RBC 2.82 L Hgb 10.0 L Hct 28.1 L MCV 100 H MCH 35.3 H MCHC 35.5 RDW 25.1 H Plt Count 374 Retic Count (auto) 7.22 H Absolute Retic 0.204 H Impressions: Chest X-Ray 09/12/18 00:00 IMPRESSION: Bibasilar consolidation with trace right pleural effusion, pneumonia versus sickle cell crisis Chest CT 09/12/18 14:10 IMPRESSION: 1. Right middle lobe and bilateral lower lobe patchy consolidations representing atelectasis versus pneumonia. 2. Small right and trace left pleural effusions. Qualifiers - * PATIENT BEING DISCHARGED WITH ANY OF THE FOLLOWING DIAGNOSIS: No Acute Heart Failure - Is this a Heart Failure Patient?: No Plan Discharge Plan: Discharge to home with self care. Continue medications as prescribed. Drink plenty of water and avoid known triggers. Follow up with PCP within 1 week and with Repulping Supervisor as scheduled, or sooner as needed. Return to the emergency department as needed for concerning symptoms. Time Spent: Greater than 30 Minutes
== END 2018-09-15 12:31 | disposition home or self-care (01) | DRG 811 ==
LOC: ER 00:26 → EH 08:39 → OBSVTOIN 08:39 → 4N 09:50 → 2N 09-08 09:08
PROVIDERS: ADMIT Internal Medicine; ATTEND Internal Medicine
PROC: 30233N1 Transfusion of Nonautologous Red Blood Cells into Peripheral Vein, Percutaneous Approach (ICD-10-PCS; principal; 2018-09-10)
DX: D57.00 Hb-SS disease with crisis, unspecified (principal); J18.1 Lobar pneumonia, unspecified organism; F32.9 Major depressive disorder, single episode, unspecified; K59.03 Drug induced constipation; T40.2X5A Adverse effect of other opioids, initial encounter; F41.1 Generalized anxiety disorder; Z86.718 Personal history of other venous thrombosis and embolism; Z79.891 Long term (current) use of opiate analgesic; Z79.01 Long term (current) use of anticoagulants; Z79.899 Other long term (current) drug therapy; Z87.891 Personal history of nicotine dependence; Z88.6 Allergy status to analgesic agent; Z91.018 Allergy to other foods; Z83.2 Family history of diseases of the blood and blood-forming organs and certain disorders involving the immune mechanism
CPT/HCPCS: 36415; 36430; 36591; 71045; 71046; 71250; 80048; 80053; 81001; 81025; 83615; 84703; 85025; 85027; 85045; 86850; 86900; 86901; 86902; 86920; 94640; 94762; 96361; 96374; 96375; 96376; 99285; J0456; J0696; J1170; J1200; J1642; J1885; J1940; J2405; J3490; J7030; J7060; J7620; P9016

== ENCOUNTER 2018-09-18 01:36 | Emergency (ER) | payer MEDICAID ==
--- NOTE | 2018-09-18 04:36 | RADIOLOGY REPORT (SQ) ---
EXAM DESCRIPTION: XR CHEST 2 VIEWS COMPLETED DATE/TME: 09/18/2018 00:00 CLINICAL HISTORY: 23 years Female, CP COMPARISON: 12/20/17 NUMBER OF VIEWS/TECHNIQUE: 2, Frontal, Lateral FINDINGS: Right miniport jugular central line tip at the SVC. Adequate lung volume, clear parenchyma, normal cardiac silhouette, and intact bony thorax. IMPRESSION: No acute cardiopulmonary findings.
--- NOTE | 2018-09-18 07:34 | ER Document Report ---
ED Medical Screen (RME) - General Chief Complaint: Chest Pain Stated Complaint: BACK AND CHEST PAIN Time Seen by Provider: 09/18/18 07:29 Notes: 23 year old female with a past medical history of sickle cell disease, DVT, depression and anxiety presents to the emergency department for chief complaint of chest pain. She was recently admitted to the hospital cell crisis and discharged with a presumptive diagnosis of pneumonia and was prescribed antibiotics. Since then she has had persistent chest pain and intermittent bilateral lower back pain. No fevers, dyspnea, leg pain. TRAVEL OUTSIDE OF THE [place] IN LAST 30 DAYS: No - Related Data Allergies/Adverse Reactions: morphine Allergy (Severe, Verified 09/05/18 01:32) RASH,SWELLING jacob peppers Adverse Reaction (Severe, Uncoded 08/31/18 14:39) throat closes Past Medical History - Social History Chew tobacco use (# tins/day): No Frequency of alcohol use: None Drug Abuse: None Family history: Reviewed & Not Pertinent, Other - Pt was adopted. Does not know family history - Past Medical History Cardiac Medical History: Reports: Hx DVT - RUE s/p port placement Pulmonary Medical History: Reports: Hx Asthma, Hx Bronchitis, Hx Pneumonia Neurological Medical History: Endocrine Medical History: Denies: Hx Diabetes Mellitus Type 1, Hx Diabetes Mellitus Type 2 Renal/ Medical History: Denies: Hx Peritoneal Dialysis GI Medical History: Musculoskeltal Medical History: Reports Hx Musculoskeletal Trauma Psychiatric Medical History: Reports: Hx Anxiety, Hx Depression - [facility] Admission 05/14/2016 Past Surgical History: Reports: Hx Cholecystectomy - 06/28/2015, Hx Vascular Surgery - port put in December,, Other - Port-A-Cath in right upper chest - Immunizations Immunizations up to date: Yes Hx Diphtheria, Pertussis, Tetanus Vaccination: Yes History of Influenza Vaccine for 12/2016 - 05/2017 Season: Yes Influenza Administration Date for 12/2016 - 05/2017 Season: 03/11/17 Physical Exam - Vital signs Vitals: Temp Pulse Resp BP Pulse Ox 98.1 F 96 18 114/60 97 09/18/18 02:05 09/18/18 02:05 09/18/18 02:05 09/18/18 02:05 09/18/18 02:05 Course - Vital Signs Vital signs: Temp Pulse Resp BP Pulse Ox 98.1 F 96 18 114/60 97 09/18/18 02:05 09/18/18 02:05 09/18/18 02:05 09/18/18 02:05 09/18/18 02:05
[2018-09-18 08:55] LABS: ABSOLUTE RETICS # 0.097 10^6/uL (0.028-0.122); HEMATOCRIT 34.2 % (36.0-47.0); MEAN CORPUSCULAR HEMOGLOBIN 35.7 pg (27.0-33.4); MEAN CORPUSCULAR HGB CONC 35.1 g/dL (32.0-36.0); MEAN CORPUSCULAR VOLUME 102 fl (80-97); PLATELET COUNT 486 10^3/uL (150-450); RED BLOOD COUNT 3.36 10^6/uL (3.72-5.28); RED CELL DISTRIBUTION WIDTH 24.3 % (11.5-14.0); RETICULOCYTE COUNT (AUTO) 2.87 % (0.66-2.85); WHITE BLOOD COUNT 9.8 10^3/uL (4.0-10.5)
[2018-09-18 09:11] LABS: ALANINE AMINOTRANSFERASE 40 U/L (9-52); ALBUMIN 4.7 g/dL (3.5-5.0); ALKALINE PHOSPHATASE 87 U/L (38-126); ANION GAP 10 (5-19); ASPARTATE AMINO TRANSFERASE 47 U/L (14-36); BILIRUBIN,DIRECT 0.5 mg/dL (0.0-0.4); BILIRUBIN,TOTAL 3.7 mg/dL (0.2-1.3); BLOOD UREA NITROGEN 5 mg/dL (7-20); CALCIUM 9.4 mg/dL (8.4-10.2); CARBON DIOXIDE 23 mmol/L (22-30); CHLORIDE 108 mmol/L (98-107); GLUCOSE 99 mg/dL (75-110); SODIUM 140.9 mmol/L (137-145); TOTAL PROTEIN 8.6 g/dL (6.3-8.2)
[2018-09-18 09:16] LABS: ABSOLUTE LYMPHOCYTES# (MANUAL) 2.8 10^3/uL (0.5-4.7); ABSOLUTE MONOCYTES # (MANUAL) 0.5 10^3/uL (0.1-1.4); BASOPHILS % (MANUAL) 3 % (0-2); EOSINOPHILS % (MANUAL) 5 % (0-6); LYMPHOCYTES % (MANUAL) 29 % (13-45); MONOCYTES % (MANUAL) 5 % (3-13); NUCLEATED RED BLOOD CELLS 3 /100 WBC (0); POIKILOCYTOSIS 1+; SEGMENTED NEUTROPHILS % (MAN) 58 % (42-78); TARGET CELLS 1+; TOTAL CELLS COUNTED 100
[2018-09-18 09:17] LABS: ANISOCYTOSIS 3+; PLATELET COMMENT ADEQUATE; PLATELET LARGE PRESENT; POLYCHROMASIA SLIGHT
[2018-09-18] MEDS ORDERED: HYDROMORPHONE HCL INJ/PF 2 MG/ML AMPULE IV ONE ×2 (09:27→10:20)
--- NOTE | 2018-09-18 09:29 | ER Document Report ---
ED General - General Chief Complaint: Chest Pain Stated Complaint: BACK AND CHEST PAIN Time Seen by Provider: 09/18/18 07:29 Primary Care Provider: DARYA MARIE DO [Primary Care Provider] - Follow up as needed Notes: 23-year-old female with sickle cell presents with chest and back pain. Back pain is achy in nature constant worse with movement and similar to past sickle cell flares2 days. Also has intermittent anterior chest tightness with shortness of breath, which she went through last week when she was admitted for either pneumonia or acute chest. Her discharge diagnosis was pneumonia and she is on antibiotics. She was not transfer to [facility] and says she did not have an exchange transfusion. She follows with Dr. Khurram Lester and is allergic to morphine TRAVEL OUTSIDE OF THE [place] IN LAST 30 DAYS: No - Related Data Allergies/Adverse Reactions: morphine Allergy (Severe, Verified 09/05/18 01:32) RASH,SWELLING jacob peppers Adverse Reaction (Severe, Uncoded 08/31/18 14:39) throat closes Past Medical History - Social History Smoking Status: Never Smoker Chew tobacco use (# tins/day): No Frequency of alcohol use: None Drug Abuse: None Family History: Other - Sickle cell disease and sickle cell trait, asthma Patient has suicidal ideation: No Patient has homicidal ideation: No - Past Medical History Cardiac Medical History: Reports: Hx DVT - RUE s/p port placement Pulmonary Medical History: Reports: Hx Asthma, Hx Bronchitis, Hx Pneumonia Neurological Medical History: Endocrine Medical History: Denies: Hx Diabetes Mellitus Type 1, Hx Diabetes Mellitus Type 2 Renal/ Medical History: Denies: Hx Peritoneal Dialysis GI Medical History: Musculoskeletal Medical History: Reports Hx Musculoskeletal Trauma Psychiatric Medical History: Reports: Hx Anxiety, Hx Depression - [facility] Admission 05/14/2016 Past Surgical History: Reports: Hx Cholecystectomy - 06/28/2015, Hx Vascular Surgery - port put in December,, Other - Port-A-Cath in right upper chest - Immunizations Immunizations up to date: Yes Hx Diphtheria, Pertussis, Tetanus Vaccination: Yes Review of Systems - Review of Systems Notes: REVIEW OF SYSTEMS GEN: Denies fever, chills, weight loss ENT: Denies sore throat, nasal discharge, ear pain EYES: Denies blurry vision, eye pain, discharge CV: Chest pain RESP: Shortness of breath GI: Denies abdominal pain, nausea, vomiting, diarrhea MSK: Back pain SKIN: Denies rash, skin lesions LYMPH: Denies swollen glands/lymph nodes NEURO: Denies headache, focal weakness or numbness, dizziness PSYCH: Denies depression, suicidal or homicidal ideation PHYSICAL EXAMINATION General: No acute distress, well-nourished Head: Atraumatic, normocephalic ENT: Mouth normal, oropharynx moist, no exudates or tonsillar enlargement Eyes: Conjunctiva normal, pupils equal, lids normal Neck: No JVD, supple, no guarding CVS: Normal rate, regular rhythm, no murmurs Resp: No resp distress, equal and normal breath sounds bilaterally GI: Nondistended, soft, no tenderness to palpation, no rebound or guarding Ext: No deformities, no edema, normal range of motion in upper and lower ext Back: No CVA or midline TTP Skin: No rash, warm Lymphatic: No lymphadeopathy noted Neuro: Awake, alert. Face symmetric. GCS 15. Physical Exam - Vital signs Vitals: Temp Pulse Resp BP Pulse Ox 98.1 F 96 18 114/60 97 09/18/18 02:05 09/18/18 02:05 09/18/18 02:05 09/18/18 02:05 09/18/18 02:05 Course - Re-evaluation Re-evalutation: 09/18/18 09:29 Well-appearing young female with sickle cell recent diagnosis of pneumonia presents back with chest pain shortness of breath and low back pain. Low back pain is likely secondary to sickle cell, mild flare. Chest pain could be anxiety, chest wall, straight sickle cell pain crisis versus acute chest. She will receive a full work-up including EKG troponin x-rays labs. We will hydrate. We will treat with Dilaudid. If patient's work-up is negative I think she is safe for discharge. 09/18/18 10:47 Patient reassessed at 10:40 AM. Feeling better. Reticulocytes are up hemoglobin is stable chest x-ray is clear and otherwise work-up is negative. Discussed with Dr. Khurram Lester who says that the patient is stable for discharge. I agree. She was discharged and asked to follow-up with him regarding pain control. - Vital Signs Vital signs: Temp Pulse Resp BP Pulse Ox 98.3 F 78 18 124/72 98 09/18/18 07:36 09/18/18 07:36 09/18/18 07:36 09/18/18 07:36 09/18/18 07:36 - Laboratory Result Diagrams: 09/18/18 08:42 09/18/18 08:42 Laboratory results interpreted by me: 09/18/18 09/18/18 08:42 08:42 RBC 3.36 L Hct 34.2 L MCV 102 H MCH 35.7 H RDW 24.3 H Plt Count 486 H Basophils % (Manual) 3 H Abs Basophils (Manual) 0.3 H Retic Count (auto) 2.87 H Chloride 108 H BUN 5 L Creatinine 0.43 L Total Bilirubin 3.7 H Direct Bilirubin 0.5 H AST 47 H Total Protein 8.6 H - Diagnostic Test Radiology reviewed: Reports reviewed - EKG Interpretation by Me EKG shows normal: Sinus rhythm Rate: Normal When compared to previous EKG there are: No significant change - Specifically no ST or T wave changes Discharge - Discharge Clinical Impression: Sickle cell crisis Chest pain, unspecified Qualifiers: Chest pain type: unspecified Qualified Code(s): R07.9 - Chest pain, unspecified Condition: Good Disposition: HOME, SELF-CARE Instructions: Sickle Cell Crisis ([facility]) Additional Instructions: Please contact Dr. Khurram Lester today for a follow-up appointment Referrals: DARYA MARIE, [Primary Care Provider] - Follow up as needed
[2018-09-18 11:30] VITALS: BP 108/61
--- NOTE | 2018-09-18 19:15 | EKG REPORT ---
SEVERITY:- NORMAL ECG - SINUS RHYTHM : Confirmed by: Mary Vega MD 18-Sep-2018 19:15:18
== END 2018-09-18 11:31 | disposition home or self-care (01) ==
LOC: ER 01:36
DX: D57.00 Hb-SS disease with crisis, unspecified (principal); J18.9 Pneumonia, unspecified organism; J45.909 Unspecified asthma, uncomplicated; R07.89 Other chest pain; M54.5 Low back pain; R06.02 Shortness of breath; Z88.5 Allergy status to narcotic agent
CPT/HCPCS: 93005; 36591; 96376; 99284; 96374; 36415; 84703; 85025; 85045; 80053; 84484; 71046; 93010; J1170; J1642

== ENCOUNTER 2018-09-18 12:41 | Outpatient (CLI) | payer MEDICAID ==
[2018-09-18] MEDS ORDERED: HYDROMORPHONE HCL INJ/PF 2 MG/ML AMPULE IV PRN (13:13)
[2018-09-18] MEDS ORDERED: NORMAL SALINE 1000 ML 1,000 ML IV PRN (13:13)
[2018-09-18 13:20] VITALS: BP 105/60
== END 2018-09-18 14:15 | disposition home or self-care (01) ==
LOC: II 12:41 → 5TH 12:46 → II 14:15
PROVIDERS: ATTEND Internal Medicine
PROC: 3E043GC Introduction of Other Therapeutic Substance into Central Vein, Percutaneous Approach (ICD-10-PCS; principal; 2018-09-18)
PROC: 3E0437Z Introduction of Electrolytic and Water Balance Substance into Central Vein, Percutaneous Approach (ICD-10-PCS; 2018-09-18)
DX: D57.1 Sickle-cell disease without crisis (principal); R52 Pain, unspecified; E86.0 Dehydration
CPT/HCPCS: 96374; 96361; J1170; J1642; 96360

== ENCOUNTER 2019-01-16 16:42 | Emergency (ER) | payer MEDICAID ==
[2019-01-16] MEDS ORDERED: IBUPROFEN 600 MG TABLET PO ONE (17:21)
--- NOTE | 2019-01-16 17:21 | ER Document Report ---
ED Medical Screen (RME) - General Chief Complaint: Sickle Cell Crisis Stated Complaint: ABDOMINAL PAIN Time Seen by Provider: 01/16/19 17:18 Primary Care Provider: DARYA MARIE DO [Primary Care Provider] - Follow up as needed Mode of Arrival: Ambulatory Information source: Patient Notes: 23-year-old female presents to ED for complaint of back pain. 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 She states she has moved to [facility] and came for a visit and did not bring her pain medicine. Patient is alert oriented respirations regular and unlabored speaking in full sentences. I have greeted and performed a rapid initial assessment of this patient. A comprehensive ED assessment and evaluation of the patient, analysis of test results and completion of medical decision making process will be conducted by an additional ED providers. TRAVEL OUTSIDE OF THE [place] IN LAST 30 DAYS: No - Related Data Allergies/Adverse Reactions: morphine Allergy (Severe, Verified 01/16/19 17:18) RASH,SWELLING jacob peppers Adverse Reaction (Severe, Uncoded 01/16/19 17:18) throat closes Past Medical History - Social History Family history: Reviewed & Not Pertinent, Other - Pt was adopted. Does not know family history - Past Medical History Cardiac Medical History: Reports: Hx DVT - RUE s/p port placement Pulmonary Medical History: Reports: Hx Asthma, Hx Bronchitis, Hx Pneumonia Neurological Medical History: Denies: Hx Parkinson's Disease Endocrine Medical History: Denies: Hx Diabetes Mellitus Type 1, Hx Diabetes Mellitus Type 2 Renal/ Medical History: Denies: Hx Peritoneal Dialysis GI Medical History: Musculoskeltal Medical History: Reports Hx Musculoskeletal Trauma Psychiatric Medical History: Reports: Hx Anxiety, Hx Depression - [facility] Admission 05/14/2016 Past Surgical History: Reports: Hx Cholecystectomy - 06/28/2015, Hx Vascular Surgery - port put in December,, Other - Port-A-Cath in right upper chest - Immunizations Immunizations up to date: Yes Hx Diphtheria, Pertussis, Tetanus Vaccination: Yes Doctor's Discharge - Discharge Referrals: DARYA MARIE DO [Primary Care Provider] - Follow up as needed
[2019-01-16 18:01] LABS: AMORPHOUS SEDIMENT,URINE TRACE /HPF; APPEARANCE,URINE CLEAR; BILIRUBIN,URINE NEGATIVE (NEGATIVE); COLOR,URINE YELLOW; GLUCOSE, URINE NEGATIVE (NEGATIVE); KETONES,URINE NEGATIVE (NEGATIVE); PROTEIN,URINE NEGATIVE (NEGATIVE); URINE SPECIFIC GRAVITY 1.012
[2019-01-16 18:33] LABS: HEMATOCRIT 25.5 % (36.0-47.0); HEMOGLOBIN 9.4 g/dL (12.0-15.5); MEAN CORPUSCULAR HEMOGLOBIN 36.6 pg (27.0-33.4); MEAN CORPUSCULAR HGB CONC 36.8 g/dL (32.0-36.0); MEAN CORPUSCULAR VOLUME 100 fl (80-97); PLATELET COUNT 381 10^3/uL (150-450); RED BLOOD COUNT 2.56 10^6/uL (3.72-5.28); RED CELL DISTRIBUTION WIDTH 15.6 % (11.5-14.0); WHITE BLOOD COUNT 14.1 10^3/uL (4.0-10.5)
[2019-01-16 18:46] LABS: ALBUMIN 4.1 g/dL (3.5-5.0); ALKALINE PHOSPHATASE 76 U/L (38-126); ANION GAP 7 (5-19); ASPARTATE AMINO TRANSFERASE 44 U/L (14-36); BILIRUBIN,DIRECT 0.2 mg/dL (0.0-0.4); BILIRUBIN,TOTAL 5.1 mg/dL (0.2-1.3); BLOOD UREA NITROGEN 5 mg/dL (7-20); CALCIUM 8.8 mg/dL (8.4-10.2); CARBON DIOXIDE 24 mmol/L (22-30); CHLORIDE 109 mmol/L (98-107); GLUCOSE 91 mg/dL (75-110); POTASSIUM 3.6 mmol/L (3.6-5.0); TOTAL PROTEIN 7.5 g/dL (6.3-8.2)
[2019-01-16 18:52] LABS: ABSOLUTE LYMPHOCYTES# (MANUAL) 5.9 10^3/uL (0.5-4.7); ABSOLUTE MONOCYTES # (MANUAL) 0.4 10^3/uL (0.1-1.4); BASOPHILS % (MANUAL) 4 % (0-2); EOSINOPHILS % (MANUAL) 5 % (0-6); LYMPHOCYTES % (MANUAL) 41 % (13-45); MONOCYTES % (MANUAL) 3 % (3-13); NUCLEATED RED BLOOD CELLS 5 /100 WBC (0); SEGMENTED NEUTROPHILS % (MAN) 46 % (42-78); TOTAL CELLS COUNTED 100
[2019-01-16 18:53] LABS: SMUDGE CELLS PRESENT
[2019-01-16 18:55] LABS: ANISOCYTOSIS 1+; POLYCHROMASIA SLIGHT
[2019-01-16 18:56] LABS: PLATELET COMMENT ADEQUATE; SICKLE RED CELLS SLIGHT; TARGET CELLS 1+
[2019-01-16 19:09] LABS: ABSOLUTE RETICS # 0.232 10^6/uL (0.028-0.122)
[2019-01-16] MEDS ORDERED: NORMAL SALINE 1000 ML 1,000 ML IV ONE (20:44)
[2019-01-16] MEDS ORDERED: DIPHENHYDRAMINE HCL 50 MG/ML VIAL IV ONE (20:44)
[2019-01-16] MEDS ORDERED: HYDROMORPHONE HCL INJ/PF 2 MG/ML AMPULE IV ONE ×2 (20:44→23:07)
--- NOTE | 2019-01-17 00:17 | ER Document Report ---
ED General Pain - General Chief Complaint: Sickle Cell Crisis Stated Complaint: ABDOMINAL PAIN Time Seen by Provider: 01/16/19 17:18 Primary Care Provider: DARYA MARIE DO [NO LOCAL MD] - Follow up as needed Mode of Arrival: Ambulatory Notes: Patient is a 31-year-old female presents to the emergency department for back pain. Patient is a sickle cell patient states this back pain is her typical sickle cell pain. Denies any injury. Patient has been to this facility multiple times for the same. Patient voices she recently moved to [facility]. States she presents to our emergency department because she is visiting friends in [place] and forgot her medications. Patient's denying any chest pain, URI symptoms, fever, abd pain, dysuria. TRAVEL OUTSIDE OF THE [place] IN LAST 30 DAYS: No - Related Data Allergies/Adverse Reactions: morphine Allergy (Severe, Verified 01/16/19 17:18) RASH,SWELLING jacob peppers Adverse Reaction (Severe, Uncoded 01/16/19 17:18) throat closes Home Medications: folic acid. hydroxiria. dilaudid Past Medical History - General Information source: Patient - Social History Smoking Status: Never Smoker Chew tobacco use (# tins/day): No Frequency of alcohol use: None Drug Abuse: None Family History: Other - Sickle cell disease and sickle cell trait, asthma Patient has suicidal ideation: No Patient has homicidal ideation: No - Past Medical History Cardiac Medical History: Reports: Hx DVT - RUE s/p port placement Pulmonary Medical History: Reports: Hx Asthma, Hx Bronchitis, Hx Pneumonia Neurological Medical History: Denies: Hx Parkinson's Disease Endocrine Medical History: Denies: Hx Diabetes Mellitus Type 1, Hx Diabetes Mellitus Type 2 Renal/ Medical History: Denies: Hx Peritoneal Dialysis GI Medical History: Musculoskeletal Medical History: Reports Hx Musculoskeletal Trauma Psychiatric Medical History: Reports: Hx Anxiety, Hx Depression - [facility] Admission 05/14/2016 Past Surgical History: Reports: Hx Cholecystectomy - 06/28/2015, Hx Vascular Surgery - port put in December,, Other - Port-A-Cath in right upper chest - Immunizations Immunizations up to date: Yes Hx Diphtheria, Pertussis, Tetanus Vaccination: Yes Review of Systems - Review of Systems Constitutional: denies: Fever EENT: No symptoms reported Cardiovascular: See HPI Respiratory: No symptoms reported Gastrointestinal: No symptoms reported Genitourinary: No symptoms reported Female Genitourinary: No symptoms reported Musculoskeletal: See HPI Skin: No symptoms reported Hematologic/Lymphatic: See HPI Neurological/Psychological: No symptoms reported Physical Exam - Vital signs Vitals: Resp BP Pulse Ox 18 115/55 L 99 01/16/19 18:03 01/16/19 18:03 01/16/19 18:03 - Notes Notes: GENERAL: Alert, interacts well. No acute distress. HEAD: Normocephalic, atraumatic. EYES: Pupils equal, round, and reactive to light. Extraocular movements intact. ENT: Oral mucosa moist, tongue midline. NECK: Full range of motion. Supple. Trachea midline. LUNGS: Clear to auscultation bilaterally, no wheezes, rales, or rhonchi. No respiratory distress. HEART: Regular rate and rhythm. No murmur ABDOMEN: Soft, non-tender. Non-distended. Bowel sounds present in all 4 quadrants. EXTREMITIES: Moves all 4 extremities spontaneously. No edema, normal radial and dorsalis pedis pulses bilaterally. No cyanosis. BACK: no cervical, thoracic, lumbar midline tenderness. No saddle anesthesia, normal distal neurovascular exam. Generalized paraspinal lumbar back pain noted. No CVA tenderness noted bilaterally. NEUROLOGICAL: Alert and oriented x3. Normal speech. cranial nerves II through XII grossly intact. PSYCH: Normal affect, normal mood. SKIN: Warm, dry, normal turgor. No rashes or lesions noted. Course - Re-evaluation Re-evalutation: Laboratory 01/16/19 01/16/19 01/16/19 17:41 18:13 18:13 WBC 14.1 H RBC 2.56 L Hgb 9.4 L Hct 25.5 L MCV 100 H MCH 36.6 H MCHC 36.8 H RDW 15.6 H Plt Count 381 Lymph % (Auto) Not Reportable Nap[place] % (Auto) Not Reportable Eos % (Auto) Not Reportable Baso % (Auto) Not Reportable Reticulocyte # 0.232 H Absolute Neuts (auto) Not Reportable Absolute Lymphs (auto) Not Reportable Absolute Monos (auto) Not Reportable Absolute Eos (auto) Not Reportable Absolute Basos (auto) Not Reportable Total Counted 100 Seg Neutrophils % Not Reportable Seg Neuts % (Manual) 46 Lymphocytes % (Manual) 41 Atypical Lymphs % 1 Monocytes % (Manual) 3 Eosinophils % (Manual) 5 Basophils % (Manual) 4 H Abs Neuts (Manual) 6.5 Abs Lymphs (Manual) 5.9 H Abs Monocytes (Manual) 0.4 Absolute Eos (Manual) 0.7 H Abs Basophils (Manual) 0.6 H Nucleated RBCs 5 Smudge Cells PRESENT Platelet Comment ADEQUATE Polychromasia SLIGHT Anisocytosis 1+ Macrocytosis SLIGHT Sickle Cells SLIGHT Target Cells 1+ Retic Count (auto) 9.00 H Sodium 140.2 Potassium 3.6 Chloride 109 H Carbon Dioxide 24 Anion Gap 7 BUN 5 L Creatinine 0.44 L Est GFR ( Amer) > 60 Est GFR (MDRD) Non-Af > 60 Glucose 91 Calcium 8.8 Total Bilirubin 5.1 H Direct Bilirubin 0.2 Neonat Total Bilirubin Not Reportable Neonat Direct Bilirubin Not Reportable Neonat Indirect Bili Not Reportable AST 44 H ALT 23 Alkaline Phosphatase 76 Total Protein 7.5 Albumin 4.1 Serum HCG, Qual Urine Color YELLOW Urine Appearance CLEAR Urine pH 6.0 Ur Specific Gerton 1.012 Urine Protein NEGATIVE Urine Glucose (UA) NEGATIVE Urine Ketones NEGATIVE Urine Blood NEGATIVE Urine Nitrite (Reflex) NEGATIVE Urine Bilirubin NEGATIVE Urine Urobilinogen 2.0 H Leukocyte Esterase Rfl TRACE H Urine RBC (Auto) 1 Urine Bacteria (Auto) TRACE Urine WBC (Reflex) 7 Squamous Epi Cells Auto 2 Amorphous Sediment Auto TRACE Urine Mucus (Auto) RARE Urine Ascorbic Acid NEGATIVE 01/16/19 18:13 WBC RBC Hgb Hct MCV MCH MCHC RDW Plt Count Lymph % (Auto) Napa % (Auto) Eos % (Auto) Baso % (Auto) Reticulocyte # Absolute Neuts (auto) Absolute Lymphs (auto) Absolute Monos (auto) Absolute Eos (auto) Absolute Basos (auto) Total Counted Seg Neutrophils % Seg Neuts % (Manual) Lymphocytes % (Manual) Atypical Lymphs % Monocytes % (Manual) Eosinophils % (Manual) Basophils % (Manual) Abs Neuts (Manual) Abs Lymphs (Manual) Abs Monocytes (Manual) Absolute Eos (Manual) Abs Basophils (Manual) Nucleated RBCs Smudge Cells Platelet Comment Polychromasia Anisocytosis Macrocytosis Sickle Cells Target Cells Retic Count (auto) Sodium Potassium Chloride Carbon Dioxide Anion Gap BUN Creatinine Est GFR ( Amer) Est GFR (MDRD) Non-Af Glucose Calcium Total Bilirubin Direct Bilirubin Neonat Total Bilirubin Neonat Direct Bilirubin Neonat Indirect Bili AST ALT Alkaline Phosphatase Total Protein Albumin Serum HCG, Qual NEGATIVE Urine Color Urine Appearance Urine pH Ur Specific Gerton Urine Protein Urine Glucose (UA) Urine Ketones Urine Blood Urine Nitrite (Reflex) Urine Bilirubin Urine Urobilinogen Leukocyte Esterase Rfl Urine RBC (Auto) Urine Bacteria (Auto) Urine WBC (Reflex) Squamous Epi Cells Auto Amorphous Sediment Auto Urine Mucus (Auto) Urine Ascorbic Acid Patient is noted to have a reticulocyte count of 9, she also has leukocytosis of 14.1. In reviewing patient chart patient does fluctuate with leukocytosis and reticulocyte count every time she visits. After initial dose of Dilaudid patient voices "I think 1 more dose will do it." Patient voices she no longer follows up with oncology in the area. States she did see her oncologist in [place] prior to coming to [place] for a visit. After second dose of Dilaudid patient is sitting up in bed eating [employer], playing on her cell phone. She is in no apparent distress. Discussed with her close follow-up with oncology and primary care provider in the next 12 to 24 hours. Close return precautions discussed. 01/17/19 00:33 Patient continues to deny any abdominal pain, repeat examination reveals no pain in all 4 quadrants. 01/17/19 00:52 Chest X-Ray 01/17/19 00:17 IMPRESSION: No acute cardiopulmonary abnormality copyright 2011 [employer]- All Rights Reserved - Vital Signs Vital signs: Temp Pulse Resp BP Pulse Ox 97.8 F 20 119/67 98 01/16/19 22:20 01/17/19 00:00 01/16/19 22:01 01/17/19 00:00 - Laboratory Result Diagrams: 01/16/19 18:13 01/16/19 18:13 Laboratory results interpreted by me: 01/16/19 01/16/19 01/16/19 17:41 18:13 18:13 WBC 14.1 H RBC 2.56 L Hgb 9.4 L Hct 25.5 L MCV 100 H MCH 36.6 H MCHC 36.8 H RDW 15.6 H Reticulocyte # 0.232 H Basophils % (Manual) 4 H Abs Lymphs (Manual) 5.9 H Absolute Eos (Manual) 0.7 H Abs Basophils (Manual) 0.6 H Retic Count (auto) 9.00 H Chloride 109 H BUN 5 L Creatinine 0.44 L Total Bilirubin 5.1 H AST 44 H Urine Urobilinogen 2.0 H Leukocyte Esterase Rfl TRACE H Discharge - Discharge Clinical Impression: Sickle cell anemia with pain, Hyperbilirubinemia Condition: Stable Disposition: HOME, SELF-CARE Instructions: Sickle Cell Crisis (OM) Additional Instructions: As we discussed you have been seen and treated in the emergency department for your sickle cell disease. Please be sure to take your home medications as prescribed. Please also make sure you follow-up with your oncologist and primary care provider in the next 12 to 24 hours. Please return to the emergency room for any concerns. Referrals: DARYA MARIE, [NO LOCAL MD] - Follow up as needed
--- NOTE | 2019-01-17 00:49 | RADIOLOGY REPORT (SQ) ---
EXAM DESCRIPTION: XR CHEST 2 VIEWS COMPLETED DATE/TME: 01/17/2019 00:17 CLINICAL HISTORY: 23 years, Female, [place] leukocytosis COMPARISON: 09/18/2018 NUMBER OF VIEWS: Two TECHNIQUE: Two views of the chest LIMITATIONS: None. FINDINGS: Lungs are clear. The heart is normal in size. There is no pneumothorax or pleural effusion. The right chest wall port terminates within the SVC. The bones are unremarkable. IMPRESSION: No acute cardiopulmonary abnormality copyright 2010 [id number]- All Rights Reserved
[2019-01-17 01:36] VITALS: BP 118/74
== END 2019-01-17 01:37 | disposition home or self-care (01) ==
LOC: ER 16:42
DX: D57.00 Hb-SS disease with crisis, unspecified (principal); E80.6 Other disorders of bilirubin metabolism; R10.9 Unspecified abdominal pain; J45.909 Unspecified asthma, uncomplicated
CPT/HCPCS: 36415; 87086; 84703; 85025; 85045; 80053; 81001; 71046; J1200; J1170; J7030; J1642

== ENCOUNTER 2019-12-09 18:19 | Emergency (ER) | payer SELFPAY ==
[2019-12-09 18:43] VITALS: BP 120/65
--- NOTE | 2019-12-09 18:53 | ER Document Report ---
ED Medical Screen (RME) - General Chief Complaint: Sickle Cell Crisis Stated Complaint: LOW BACK PAIN Time Seen by Provider: 12/09/19 18:51 Mode of Arrival: Ambulatory Information source: Patient Notes: 24-year-old female presented to ED for complaint of lower back going down right leg. She does have sickle cell and this is where she often has her sickle cell pain. Her last menstrual period was November 22. She is a former smoker she does drink wine occasionally maybe every other week does not use any illicit drugs. She has had a cholecystectomy. She has had acute syndrome 1/2 months this year. She does have a history of asthma. She states today she is having and is 1 of her sickle cell crisis. She does have a port. We will get a urine and back x- ray at this time and then as soon as they can get a room for her they will access her port and get the rest of the labs completed. I have greeted and performed a rapid initial assessment of this patient. A comprehensive ED assessment and evaluation of the patient, analysis of test results and completion of medical decision making process will be conducted by an additional ED providers. TRAVEL OUTSIDE OF THE [place] IN LAST 30 DAYS: No - Related Data Allergies/Adverse Reactions: morphine Allergy (Severe, Verified 01/16/19 17:18) RASH,SWELLING jacob peppers Adverse Reaction (Severe, Uncoded 01/16/19 17:18) throat closes Past Medical History - Social History Family history: Reviewed & Not Pertinent, Other - Pt was adopted. Does not know family history - Past Medical History Cardiac Medical History: Reports: Hx DVT - RUE s/p port placement Pulmonary Medical History: Reports: Hx Asthma, Hx Bronchitis, Hx Pneumonia Neurological Medical History: Denies: Hx Parkinson's Disease Endocrine Medical History: Denies: Hx Diabetes Mellitus Type 1, Hx Diabetes Mellitus Type 2 Renal/ Medical History: Denies: Hx Peritoneal Dialysis GI Medical History: Musculoskeltal Medical History: Reports Hx Musculoskeletal Trauma Psychiatric Medical History: Reports: Hx Anxiety, Hx Depression - [facility] Admission 05/14/2016 Past Surgical History: Reports: Hx Cholecystectomy - 06/28/2015, Hx Vascular Surgery - port put in December,, Other - Port-A-Cath in right upper chest - Immunizations Immunizations up to date: Yes Hx Diphtheria, Pertussis, Tetanus Vaccination: Yes Physical Exam - Vital signs Vitals: Temp Pulse Resp BP Pulse Ox 98.4 F 91 16 120/65 99 12/09/19 18:40 12/09/19 18:40 12/09/19 18:40 12/09/19 18:40 12/09/19 18:40 Course - Vital Signs Vital signs: Temp Pulse Resp BP Pulse Ox 98.4 F 91 16 120/65 99 12/09/19 18:40 12/09/19 18:40 12/09/19 18:40 12/09/19 18:40 12/09/19 18:40
--- NOTE | 2019-12-09 19:23 | RADIOLOGY REPORT (SQ) ---
EXAM DESCRIPTION: L SPINE WHOLE IMAGES COMPLETED DATE/TIME: 12/09/2019 7:09 pm REASON FOR STUDY: low back pain has hx of sickle cell COMPARISON: None. NUMBER OF VIEWS: Five views including obliques. TECHNIQUE: AP, lateral, oblique, and sacral radiographic images acquired of the lumbar spine. LIMITATIONS: None. FINDINGS: MINERALIZATION: Normal. SEGMENTATION: Normal. No transitional anatomy. ALIGNMENT: Normal. VERTEBRAE: Biconcave (H-shaped) morphology of the vertebral bodies, consistent with this patient's kn own diagnosis of sickle cell disease. No evidence of acute osseous injury. DISCS: Preserved height. No significant osteophytes. POSTERIOR ELEMENTS: Pedicles and facets are intact. No pars defect or posterior arch defects. HARDWARE: Right upper quadrant surgical clips. PARASPINAL SOFT TISSUES: Normal. PELVIS: Intact as visualized. No fractures or worrisome bone lesions. SI joints intact. OTHER: No other significant finding. IMPRESSION: Biconcave vertebral bodies consistent with this patient's known diagnosis of sickle cell disease. No evidence of acute osseous injury. TECHNICAL DOCUMENTATION: JOB ID: [id number] 2010 [employer]- All Rights Reserved Reading location - IP/workstation name: [email or web address]
[2019-12-09 20:04] LABS: APPEARANCE,URINE CLEAR; BILIRUBIN,URINE NEGATIVE (NEGATIVE); COLOR,URINE YELLOW; GLUCOSE, URINE NEGATIVE (NEGATIVE); KETONES,URINE NEGATIVE (NEGATIVE); LEUKOCYTE ESTERASE,URINE NEGATIVE (NEGATIVE); NITRITE,URINE NEGATIVE (NEGATIVE); PROTEIN,URINE NEGATIVE (NEGATIVE); URINE SPECIFIC GRAVITY 1.012; UROBILINOGEN,URINE NEGATIVE mg/dL (<2.0)
== END 2019-12-10 07:24 | disposition left against medical advice (07) ==
LOC: ER 18:19
DX: D57.1 Sickle-cell disease without crisis (principal); M54.5 Low back pain; Z86.718 Personal history of other venous thrombosis and embolism
CPT/HCPCS: 72110; 81001; 81025; 99281

== ENCOUNTER 2019-12-25 15:25 | Emergency (ER) | payer OTHER, MEDICAID ==
[2019-12-25] MEDS ORDERED: NORMAL SALINE 1000 ML 1,000 ML IV ONE (15:52)
--- NOTE | 2019-12-25 15:52 | ER Document Report ---
ED Medical Screen (RME) - General Chief Complaint: Sickle Cell Crisis Stated Complaint: MUSCLE PAIN,LOW BACK PAIN Time Seen by Provider: 12/25/19 15:41 TRAVEL OUTSIDE OF THE [place] IN LAST 30 DAYS: No - HPI Notes: 12/25/19 15:50 24-year-old female to the emergency department with history of sickle cell anemia with complaints of low back pain that is consistent with her sickle cell pain crisis. She states this is been going on for a week and she has been trying to control it at home. She states that she just recently moved back from [place] and has not yet established care with a rn progressive care but has seen Dr. Baum in the past. She has struggled in the past year with her sickle cell anemia and has had at least 6 hospitalizations. The last hospitalization was in September and she was given 5 units of blood at that time. She denies any shortness of breath or chest pain. She denies any fevers. She takes regularly 2 mg of Dilaudid for her pain control. I performed a brief medical screening exam on the patient determined that the patient needs further evaluation and management by main side provider. I have placed initial orders to help expedite care. - Related Data Allergies/Adverse Reactions: morphine Allergy (Severe, Verified 12/25/19 15:44) RASH,SWELLING jacob peppers Adverse Reaction (Severe, Uncoded 12/25/19 15:44) throat closes Past Medical History - Social History Family history: Reviewed & Not Pertinent, Other - Pt was adopted. Does not know family history - Past Medical History Cardiac Medical History: Reports: Hx DVT - RUE s/p port placement Pulmonary Medical History: Reports: Hx Asthma, Hx Bronchitis, Hx Pneumonia Neurological Medical History: Denies: Hx Parkinson's Disease Endocrine Medical History: Denies: Hx Diabetes Mellitus Type 1, Hx Diabetes Mellitus Type 2 Renal/ Medical History: Denies: Hx Peritoneal Dialysis GI Medical History: Musculoskeltal Medical History: Reports Hx Musculoskeletal Trauma Psychiatric Medical History: Reports: Hx Anxiety, Hx Depression - [facility] Ad[facility] 05/14/2016 Past Surgical History: Reports: Hx Cholecystectomy - 06/28/2015, Hx Vascular Surgery - port put in December,, Other - Port-A-Cath in right upper chest - Immunizations Immunizations up to date: Yes Hx Diphtheria, Pertussis, Tetanus Vaccination: Yes Physical Exam - Vital signs Vitals: Temp Pulse Resp BP Pulse Ox 98.2 F 74 20 122/71 99 12/25/19 15:29 12/25/19 15:29 12/25/19 15:29 12/25/19 15:29 12/25/19 15:29 Course - Vital Signs Vital signs: Temp Pulse Resp BP Pulse Ox 98.2 F 74 20 122/71 99 12/25/19 15:29 12/25/19 15:29 12/25/19 15:29 12/25/19 15:29 12/25/19 15:29
[2019-12-25] MEDS ORDERED: HYDROMORPHONE HCL INJ/PF 2 MG/ML AMPULE IV ONE ×2 (15:53→20:28)
[2019-12-25 16:52] LABS: APPEARANCE,URINE CLEAR; BILIRUBIN,URINE NEGATIVE (NEGATIVE); COLOR,URINE YELLOW; GLUCOSE, URINE NEGATIVE (NEGATIVE); KETONES,URINE NEGATIVE (NEGATIVE); PROTEIN,URINE NEGATIVE (NEGATIVE); URINE SPECIFIC GRAVITY 1.011; UROBILINOGEN,URINE NEGATIVE mg/dL (<2.0)
[2019-12-25] MEDS ORDERED: ONDANSETRON HCL INJ/PF 4 MG/2 ML SDV IV ONE (17:35)
--- NOTE | 2019-12-25 17:38 | ER Document Report ---
ED General - General Chief Complaint: Back Pain Stated Complaint: MUSCLE PAIN,LOW BACK PAIN Time Seen by Provider: 12/25/19 15:41 Primary Care Provider: JOIE MOREIRA MD [ACTIVE STAFF] - 12/27/19 Mode of Arrival: Ambulatory Information source: Patient Notes: Patient has a history of sickle cell disease and presents with a one-week history of low back pain. Patient denies any injury, fever or urinary symptoms. Patient states this is typical of when she has had pain crisis in the past. Patient has been taking her usual medications without improvement of her symptoms at home. Patient denies any chest pain cough cold symptoms or shortness of breath. Patient denies any vomiting or diarrhea although does report some nausea. TRAVEL OUTSIDE OF THE [place] IN LAST 30 DAYS: No - HPI Onset: Last week Onset/Duration: Persistent Quality of pain: Achy Pain Level: 5 Associated symptoms: Nausea. denies: Chest pain, Nonproductive cough, Productive cough, Diarrhea, Fever, Headache, Vomiting, Shortness of breath Exacerbated by: Supine Relieved by: Denies Similar symptoms previously: Yes Recently seen / treated by doctor: No - Related Data Allergies/Adverse Reactions: morphine Allergy (Severe, Verified 12/25/19 15:44) RASH,SWELLING jacob peppers Adverse Reaction (Severe, Uncoded 12/25/19 15:44) throat closes Past Medical History - General Information source: Patient - Social History Smoking Status: Never Smoker Frequency of alcohol use: Occasional Drug Abuse: None Occupation: none Lives with: Spouse/Significant other Family History: Other - Sickle cell disease and sickle cell trait, asthma - Medical History Medical History: Other - SSD - Past Medical History Cardiac Medical History: Reports: Hx DVT - RUE s/p port placement Pulmonary Medical History: Reports: Hx Asthma, Hx Bronchitis, Hx Pneumonia Neurological Medical History: Denies: Hx Parkinson's Disease Endocrine Medical History: Denies: Hx Diabetes Mellitus Type 1, Hx Diabetes Mellitus Type 2 Renal/ Medical History: Denies: Hx Peritoneal Dialysis GI Medical History: Musculoskeletal Medical History: Reports Hx Musculoskeletal Trauma Psychiatric Medical History: Reports: Hx Anxiety, Hx Depression - [facility] Admission 05/14/2016 Past Surgical History: Reports: Hx Cholecystectomy - 06/28/2015, Hx Vascular Surgery - port put in December,, Other - Port-A-Cath in right upper chest - Immunizations Immunizations up to date: Yes Hx Diphtheria, Pertussis, Tetanus Vaccination: Yes Review of Systems - Review of Systems Constitutional: No symptoms reported. denies: Fever, Recent illness EENT: No symptoms reported Cardiovascular: No symptoms reported. denies: Chest pain Respiratory: No symptoms reported. denies: Cough, Short of breath Gastrointestinal: Nausea. denies: Abdominal pain, Diarrhea, Vomiting Genitourinary: No symptoms reported. denies: Dysuria Female Genitourinary: No symptoms reported. denies: Musculoskeletal: Back pain Skin: No symptoms reported Hematologic/Lymphatic: No symptoms reported Neurological/Psychological: No symptoms reported Physical Exam - Vital signs Vitals: Temp Pulse Resp BP Pulse Ox 98.2 F 74 20 122/71 99 12/25/19 15:29 12/25/19 15:29 12/25/19 15:29 12/25/19 15:12/25/19 15:29 - Notes Notes: PHYSICAL EXAMINATION: GENERAL: Well-appearing and in no acute distress. HEAD: Atraumatic, normocephalic. EYES: Mildly icteric sclera bilaterally, conjunctiva are normal. ENT: nares patent. Moist mucous membranes. NECK: Normal range of motion, supple without lymphadenopathy LUNGS: CTAB and equal. No wheezes rales or rhonchi. HEART: Regular rate and rhythm without murmurs ABDOMEN: Soft, nontender, normal bowel sounds, no guarding. EXTREMITIES: Normal range of motion, no pitting edema. No cyanosis. BACK: Lower lumbar paraspinal tenderness, no midline tenderness, no step-off or deformity. No CVA tenderness NEUROLOGICAL: Cranial nerves grossly intact. Normal speech. PSYCH: Normal mood, normal affect. SKIN: Warm, Dry, normal turgor, no rashes or lesions noted Course - Re-evaluation Re-evalutation: 12/25/19 21:13 Patient presents with a history of sickle cell disease and concern about pain crisis. Patient does have a leukocytosis of 17,000 although has had similar elevations in the past. Patient without any fever. Patient's H&H 10 and 30 respectively, with no elevation in her reticulocyte count at this time. Patient reports pain symptoms have resolved and she was primarily concerned with where her hemoglobin was this evening. Patient without any evidence of UTI, no concern for any obstructive uropathy. Patient denies any headache, chest pain, abdominal pain or leg pain. Patient feels that she can manage her symptoms at home and plans to follow-up with her safety officer on outpatient basis. Patient feels ready to be discharged at this time. - Vital Signs Vital signs: Temp Pulse Resp BP Pulse Ox 98.1 F 73 15 127/67 H 100 12/25/19 21:51 12/25/19 21:51 12/25/19 21:51 12/25/19 21:51 12/25/19 21:51 - Laboratory Result Diagrams: 12/25/19 19:58 12/25/19 19:58 Laboratory results interpreted by me: 12/25/19 12/25/19 12/25/19 16:25 19:58 19:58 WBC 17.0 H RBC 3.17 L Hgb 10.7 L Hct 30.2 L MCH 33.7 H RDW 23.3 H Absolute Neuts (auto) 10.8 H Absolute Basos (auto) 0.3 H Chloride 112 H Glucose 111 H Total Bilirubin 3.1 H Urine Blood SMALL H 12/25/19 21:12 Labs- All tests 24 hr 12/25/19 12/25/19 12/25/19 16:25 19:58 19:58 WBC 17.0 H RBC 3.17 L Hgb 10.7 L Hct 30.2 L MCV 95 MCH 33.7 H MCHC 35.5 RDW 23.3 H Plt Count 320 Lymph % (Auto) 26.8 Luce % (Auto) 6.8 Eos % (Auto) 1.4 Baso % (Auto) 1.8 Reticulocyte # 0.090 Absolute Neuts (auto) 10.8 H Absolute Lymphs (auto) 4.6 Absolute Monos (auto) 1.2 Absolute Eos (auto) 0.2 Absolute Basos (auto) 0.3 H Seg Neutrophils % 63.2 Retic Count (auto) 2.83 Sodium 143.8 Potassium 3.6 Chloride 112 H Carbon Dioxide 22 Anion Gap 10 BUN 8 Creatinine 0.61 Est GFR ( Amer) > 60 Est GFR (MDRD) Non-Af > 60 Glucose 111 H Calcium 8.5 Total Bilirubin 3.1 H Direct Bilirubin 0.2 Neonat Total Bilirubin Not Reportable Neonat Direct Bilirubin Not Reportable Neonat Indirect Bili Not Reportable AST 26 ALT 15 Alkaline Phosphatase 82 Total Protein 7.1 Albumin 4.1 Urine Color YELLOW Urine Appearance CLEAR Urine pH 6.0 Ur Specific [place] 1.011 Urine Protein NEGATIVE Urine Glucose (UA) NEGATIVE Urine Ketones NEGATIVE Urine Blood SMALL H Urine Nitrite (Reflex) NEGATIVE Urine Bilirubin NEGATIVE Urine Urobilinogen NEGATIVE Leukocyte Esterase Rfl NEGATIVE Urine RBC (Auto) 0 Urine WBC (Reflex) 1 Squamous Epi Cells Auto <1 Urine Mucus (Auto) RARE Urine Ascorbic Acid NEGATIVE Urine HCG, Qual NEGATIVE Discharge - Discharge Clinical Impression: Back pain Qualifiers: Back pain location: low back pain Chronicity: unspecified Back pain laterality: bilateral Sciatica presence: without sciatica Qualified Code(s): M54.5 - Low back pain Sickle cell anemia Qualifiers: Sickle-cell associated disorders: without crisis Qualified Code(s): D57.1 - Sickle-cell disease without crisis Leukocytosis Qualifiers: Leukocytosis type: unspecified Qualified Code(s): D72.829 - Elevated white blood cell count, unspecified Condition: Stable Disposition: HOME, SELF-CARE Instructions: Intravenous (IV) Fluids ([facility]), Low Back Pain ([facility]), Pain Medic ation Injection ([facility]), Sickle Cell Crisis ([facility]) Additional Instructions: Return immediately for any new or worsening symptoms Followup with your primary care provider, call tomorrow to make a followup appointment Follow-up with Dr. Moreira, call his office on Friday for an appointment Referrals: JOIE MOREIRA MD [ACTIVE STAFF] - 12/27/19
[2019-12-25] MEDS ORDERED: DIPHENHYDRAMINE HCL 50 MG/ML VIAL IV ONE (18:39)
[2019-12-25 20:13] LABS: ABSOLUTE BASOPHILS # (AUTO) 0.3 10^3/uL (0.0-0.2); ABSOLUTE EOSINOPHILS # (AUTO) 0.2 10^3/uL (0.0-0.6); ABSOLUTE LYMPHOCYTES (AUTO) 4.6 10^3/uL (0.5-4.7); ABSOLUTE MONOCYTES (AUTO) 1.2 10^3/uL (0.1-1.4); ABSOLUTE NEUT (AUTO) 10.8 10^3/uL (1.7-8.2); BASOPHILS % (AUTO) 1.8 % (0-2); EOSINOPHILS % (AUTO) 1.4 % (0-6); HEMATOCRIT 30.2 % (36.0-47.0); HEMOGLOBIN 10.7 g/dL (12.0-15.5); LYMPHOCYTES % (AUTO) 26.8 % (13-45); MEAN CORPUSCULAR HEMOGLOBIN 33.7 pg (27.0-33.4); MEAN CORPUSCULAR HGB CONC 35.5 g/dL (32.0-36.0); MEAN CORPUSCULAR VOLUME 95 fl (80-97); MONOCYTES % (AUTO) 6.8 % (3-13); PLATELET COUNT 320 10^3/uL (150-450); RED BLOOD COUNT 3.17 10^6/uL (3.72-5.28); RED CELL DISTRIBUTION WIDTH 23.3 % (11.5-14.0); RETICULOCYTE COUNT (AUTO) 2.83 % (0.66-2.85); SEGMENTED NEUTROPHILS % (AUTO) 63.2 % (42-78); TOTAL CELLS COUNTED % (AUTO) 100 %
[2019-12-25 20:31] LABS: ALBUMIN 4.1 g/dL (3.5-5.0); ALKALINE PHOSPHATASE 82 U/L (38-126); ANION GAP 10 (5-19); ASPARTATE AMINO TRANSFERASE 26 U/L (14-36); BILIRUBIN,DIRECT 0.2 mg/dL (0.0-0.4); BILIRUBIN,TOTAL 3.1 mg/dL (0.2-1.3); BLOOD UREA NITROGEN 8 mg/dL (7-20); CALCIUM 8.5 mg/dL (8.4-10.2); CARBON DIOXIDE 22 mmol/L (22-30); CHLORIDE 112 mmol/L (98-107); GLUCOSE 111 mg/dL (75-110); POTASSIUM 3.6 mmol/L (3.6-5.0); TOTAL PROTEIN 7.1 g/dL (6.3-8.2)
[2019-12-25 21:52] VITALS: BP 127/67
== END 2019-12-25 21:52 | disposition home or self-care (01) ==
LOC: ER 15:25
DX: M54.5 Low back pain (principal); R11.0 Nausea; D57.1 Sickle-cell disease without crisis; D72.829 Elevated white blood cell count, unspecified; J45.909 Unspecified asthma, uncomplicated; Z88.6 Allergy status to analgesic agent; Z88.5 Allergy status to narcotic agent
CPT/HCPCS: 36591; 96376; 99284; 96361; 96374; 96375; 36415; 85025; 81025; 85045; 80053; 81001; J1200; J1170; J2405; J7030; J1642

== ENCOUNTER 2020-01-02 23:54 | Emergency (ER) | payer OTHER, MEDICAID ==
[2020-01-03] MEDS ORDERED: KETOROLAC TROMETHAMINE INJ/PF 30 MG/1 ML SDV IV ONE (01:35)
[2020-01-03] MEDS ORDERED: NORMAL SALINE 1000 ML 1,000 ML IV ONE ×2 (01:35→06:21)
--- NOTE | 2020-01-03 01:39 | ER Document Report ---
ED Medical Screen (RME) - General Chief Complaint: Sickle Cell Crisis Stated Complaint: WHOLE BODY PAIN Time Seen by Provider: 01/03/20 01:34 Mode of Arrival: Ambulatory Information source: Patient Notes: 24-year-old -[place] female with "sickle cell pain" to lower back. Symptoms for couple of days. Does not have any chest pain. Does not have shortness of breath. Does not have any trauma. Some nausea without vomiting. Physical exam General: Nontoxic appearing Cardio regular rate and rhythm Pulmonary no respiratory distress Abdomen nontender nondistended Musculoskeletal tenderness across lumbar spine no step-off Neuro no focal neuro deficit I have greeted and performed a rapid initial assessment of this patient. A comprehensive ED assessment and evaluation of the patient, analysis of test results and completion of the medical decision making process will be conducted by additional ED providers. TRAVEL OUTSIDE OF THE [place] IN LAST 30 DAYS: No - Related Data Allergies/Adverse Reactions: morphine Allergy (Severe, Verified 12/25/19 15:44) RASH,SWELLING jacob peppers Adverse Reaction (Severe, Uncoded 12/25/19 15:44) throat closes Past Medical History - Social History Family history: Reviewed & Not Pertinent, Other - Pt was adopted. Does not know family history - Past Medical History Cardiac Medical History: Reports: Hx DVT - RUE s/p port placement Pulmonary Medical History: Reports: Hx Asthma, Hx Bronchitis, Hx Pneumonia Neurological Medical History: Denies: Hx Parkinson's Disease Endocrine Medical History: Denies: Hx Diabetes Mellitus Type 1, Hx Diabetes Mellitus Type 2 Renal/ Medical History: Denies: Hx Peritoneal Dialysis GI Medical History: Musculoskeltal Medical History: Reports Hx Musculoskeletal Trauma Psychiatric Medical History: Reports: Hx Anxiety, Hx Depression - [facility] Admission 05/14/2016 Past Surgical History: Reports: Hx Cholecystectomy - 06/28/2015, Hx Vascular Surgery - port put in December,, Other - Port-A-Cath in right upper chest - Immunizations Immunizations up to date: Yes Hx Diphtheria, Pertussis, Tetanus Vaccination: Yes Physical Exam - Vital signs Vitals: Temp Pulse Resp BP Pulse Ox 98.8 F 96 16 124/66 100 01/03/20 00:26 01/03/20 00:26 01/03/20 00:26 01/03/20 00:26 01/03/20 00:26 Course - Vital Signs Vital signs: Temp Pulse Resp BP Pulse Ox 98.8 F 96 16 124/66 100 01/03/20 00:26 01/03/20 00:26 01/03/20 00:26 01/03/20 00:26 01/03/20 00:26
[2020-01-03] MEDS ORDERED: HYDROMORPHONE HCL INJ/PF 2 MG/ML AMPULE IV ONE ×4 (03:52→07:49)
[2020-01-03] MEDS ORDERED: ONDANSETRON HCL INJ/PF 4 MG/2 ML SDV IV ONE (03:54)
[2020-01-03] MEDS ORDERED: DIPHENHYDRAMINE HCL 50 MG/ML VIAL IV ONE ×2 (03:54→06:50)
[2020-01-03 03:59] LABS: ABSOLUTE RETICS # 0.176 10^6/uL (0.028-0.122); HEMATOCRIT 28.9 % (36.0-47.0); HEMOGLOBIN 10.3 g/dL (12.0-15.5); MEAN CORPUSCULAR HEMOGLOBIN 33.7 pg (27.0-33.4); MEAN CORPUSCULAR HGB CONC 35.8 g/dL (32.0-36.0); MEAN CORPUSCULAR VOLUME 94 fl (80-97); PLATELET COUNT 479 10^3/uL (150-450); RED BLOOD COUNT 3.07 10^6/uL (3.72-5.28); RED CELL DISTRIBUTION WIDTH 23.2 % (11.5-14.0); RETICULOCYTE COUNT (AUTO) 5.72 % (0.66-2.85); WHITE BLOOD COUNT 14.5 10^3/uL (4.0-10.5)
[2020-01-03 04:23] LABS: ALBUMIN 4.2 g/dL (3.5-5.0); ALKALINE PHOSPHATASE 140 U/L (38-126); ANION GAP 11 (5-19); ASPARTATE AMINO TRANSFERASE 31 U/L (14-36); BILIRUBIN,DIRECT 0.3 mg/dL (0.0-0.4); BILIRUBIN,TOTAL 4.3 mg/dL (0.2-1.3); BLOOD UREA NITROGEN 7 mg/dL (7-20); CALCIUM 8.9 mg/dL (8.4-10.2); CARBON DIOXIDE 22 mmol/L (22-30); CHLORIDE 108 mmol/L (98-107); GLUCOSE 104 mg/dL (75-110); POTASSIUM 3.7 mmol/L (3.6-5.0); TOTAL PROTEIN 7.4 g/dL (6.3-8.2)
[2020-01-03 04:26] LABS: ABSOLUTE LYMPHOCYTES# (MANUAL) 5.1 10^3/uL (0.5-4.7); ABSOLUTE MONOCYTES # (MANUAL) 0.3 10^3/uL (0.1-1.4); ANISOCYTOSIS 3+; BASOPHILS % (MANUAL) 1 % (0-2); EOSINOPHILS % (MANUAL) 3 % (0-6); LYMPHOCYTES % (MANUAL) 35 % (13-45); MONOCYTES % (MANUAL) 2 % (3-13); OVALOCYTES 2+; PLATELET COMMENT ADEQUATE; POIKILOCYTOSIS 3+; SCHISTOCYTES 1+; SEGMENTED NEUTROPHILS % (MAN) 59 % (42-78); TARGET CELLS 1+; TEAR DROP CELLS 1+; TOTAL CELLS COUNTED 100; TOXIC GRANULATION 1+
[2020-01-03 04:27] LABS: NUCLEATED RED BLOOD CELLS 1 /100 WBC (0)
--- NOTE | 2020-01-03 04:38 | ER Document Report ---
ED General - General Mode of Arrival: Ambulatory Information source: Patient TRAVEL OUTSIDE OF THE [place] IN LAST 30 DAYS: No <ALEXANDER GANDHI - Last Filed: 01/03/20 07:50> <CASSIUS MANTILLA - Last Filed: 01/03/20 09:16> - General Chief Complaint: Sickle Cell Crisis Stated Complaint: WHOLE BODY PAIN Time Seen by Provider: 01/03/20 01:34 Primary Care Provider: JOIE MOREIRA MD [ACTIVE STAFF] - Follow up as needed Notes: 24-year-old female patient with history of sickle cell presents emergency depart ment chief complaint of low back pain. Patient reports this is characteristic of her sickle cell crisis. Patient denies any chest pain, shortness of breath, fever, chills. She states she has a port to her right chest wall and would like that accessed. (ALEXANDER GANDHI) - Related Data Allergies/Adverse Reactions: morphine Allergy (Severe, Verified 12/25/19 15:44) RASH,SWELLING jacob peppers Adverse Reaction (Severe, Uncoded 12/25/19 15:44) throat closes Past Medical History - General Information source: Patient - Social History Smoking Status: Never Smoker Family History: Other - Sickle cell disease and sickle cell trait, asthma Patient has homicidal ideation: No - Past Medical History Cardiac Medical History: Reports: Hx DVT - RUE s/p port placement Pulmonary Medical History: Reports: Hx Asthma, Hx Bronchitis, Hx Pneumonia Neurological Medical History: Denies: Hx Parkinson's Disease Endocrine Medical History: Denies: Hx Diabetes Mellitus Type 1, Hx Diabetes Mellitus Type 2 Renal/ Medical History: Denies: Hx Peritoneal Dialysis GI Medical History: Musculoskeletal Medical History: Reports Hx Musculoskeletal Trauma Psychiatric Medical History: Reports: Hx Anxiety, Hx Depression - [facility] Admission 05/14/2016 Past Surgical History: Reports: Hx Cholecystectomy - 06/28/2015, Hx Vascular Surgery - port put in December,, Other - Port-A-Cath in right upper chest - Immunizations Immunizations up to date: Yes Hx Diphtheria, Pertussis, Tetanus Vaccination: Yes <ALEXANDER GANDHI - Last Filed: 01/03/20 07:50> Review of Systems - Review of Systems Constitutional: No symptoms reported EENT: No symptoms reported Cardiovascular: No symptoms reported Respiratory: No symptoms reported Gastrointestinal: No symptoms reported Genitourinary: No symptoms reported Female Genitourinary: No symptoms reported Musculoskeletal: Back pain Skin: No symptoms reported Hematologic/Lymphatic: No symptoms reported Neurological/Psychological: No symptoms reported <ALEXANDER GANDHI - Last Filed: 01/03/20 07:50> Physical Exam <ALEXANDER GANDHI - Last Filed: 01/03/20 07:50> - Vital signs Vitals: Temp Pulse Resp BP Pulse Ox 98.8 F 96 16 124/66 100 01/03/20 00:26 01/03/20 00:26 01/03/20 00:26 01/03/20 00:26 01/03/20 00:26 - Notes Notes: PHYSICAL EXAMINATION: GENERAL: Well-appearing, well-nourished and in no acute distress. HEAD: Atraumatic, normocephalic. EYES: Pupils equal round and reactive to light, extraocular movements intact, conjunctiva are normal. ENT: Nares patent, oropharynx clear without exudates. Moist mucous membranes. NECK: Normal range of motion, supple without lymphadenopathy LUNGS: Breath sounds clear to auscultation bilaterally and equal. No wheezes rales or rhonchi. HEART: Regular rate and rhythm without murmurs ABDOMEN: Soft, nontender, nondistended abdomen. No guarding, no rebound. No masses appreciated. Female : deferred Musculoskeletal: Normal range of motion, no pitting or edema. No cyanosis. NEUROLOGICAL: Cranial nerves grossly intact. Normal speech, normal gait. Normal sensory, motor exams PSYCH: Normal mood, normal affect. SKIN: Port noted to right chest wall. (ALEXANDER GANDHI) Course - Laboratory Result Diagrams: 01/03/20 03:30 01/03/20 03:30 <ALEXANDER GANDHI - Last Filed: 01/03/20 07:50> - Laboratory Result Diagrams: 01/03/20 03:30 01/03/20 03:30 <CASSIUS MANTILLA - Last Filed: 01/03/20 09:16> - Re-evaluation Re-evalutation: Patient appears well, nontoxic, vital signs reviewed and are within normal limits. Patient is well-known to this emergency department as we have seen her multiple times for sickle cell crisis. She does not currently have a multi punch operator as she states she left the area temporarily and has just relocated back here. She denies any chest pain, unlikely acute chest syndrome. We will give IV fluids, pain medications and review labs. Patient agreeable to this plan. (ALEXANDER GANDHI) 01/03/20 09:15 Patient reports feeling much better and is ready to be discharged at this time. (CASSIUS MANTILLA) - Vital Signs Vital signs: Temp Pulse Resp BP Pulse Ox 98.2 F 95 16 115/66 99 01/03/20 05:12 01/03/20 05:12 01/03/20 05:12 01/03/20 05:12 01/03/20 05:12 - Laboratory Laboratory results interpreted by me: 01/03/20 01/03/20 01/03/20 03:30 03:30 04:55 WBC 14.5 H RBC 3.07 L Hgb 10.3 L Hct 28.9 L MCH 33.7 H RDW 23.2 H Plt Count 479 H Reticulocyte # 0.176 H Monocytes % (Manual) 2 L Abs Neuts (Manual) 8.6 H Abs Lymphs (Manual) 5.1 H Retic Count (auto) 5.72 H Chloride 108 H Total Bilirubin 4.3 H Alkaline Phosphatase 140 H Urine Urobilinogen 4.0 H Discharge <ALEXANDER GANDHI - Last Filed: 01/03/20 07:50> <CASSIUS MANTILLA - Last Filed: 01/03/20 09:16> - Discharge Clinical Impression: Sickle cell anemia Qualifiers: Sickle-cell associated disorders: with unspecified crisis Qualified Code(s): D57.00 - Hb-SS disease with crisis, unspecified Condition: Stable Disposition: HOME, SELF-CARE Additional Instructions: Sickle Cell Crisis You have "sickle cell crisis." Sickle cell disease is caused by abnormal hemoglobin. This hemoglobin can deform red blood cells into a sickle shape. These abnormal blood cells can block blood vessels. This causes the pain of sickle cell crisis. Sickle cell crisis can occur any time. But attacks are more likely with acute infection, dehydration, or altitude change. A crisis usually causes pain in the legs, back, abdomen, and chest. Sometimes the pain may ease and return later. The usual treatment is oxygen, pain medication, IV fluids, and treatment of infection. Attacks may take a couple of days to resolve. Return if the pain becomes more severe, or if there are new symptoms. Take all home medications as prescribed. Please try to reestablish care with your multi punch operator. Return to the emergency department any new or worsening symptoms. Referrals: JOIE MOREIRA MD [ACTIVE STAFF] - Follow up as needed
[2020-01-03 05:31] LABS: APPEARANCE,URINE CLEAR; BILIRUBIN,URINE NEGATIVE (NEGATIVE); COLOR,URINE YELLOW; GLUCOSE, URINE NEGATIVE (NEGATIVE); KETONES,URINE NEGATIVE (NEGATIVE); PROTEIN,URINE NEGATIVE (NEGATIVE); URINE SPECIFIC GRAVITY 1.012
[2020-01-03] MEDS ORDERED: FAMOTIDINE INJ/PF 20 MG/2 ML SDV IV ONE (07:48)
[2020-01-03] MEDS ORDERED: HYDROXYZINE HCL INJ 50 MG/1 ML VIAL IM ONE (07:49)
[2020-01-03 09:29] VITALS: BP 104/65
== END 2020-01-03 09:28 | disposition home or self-care (01) ==
LOC: ER 23:54
DX: D57.00 Hb-SS disease with crisis, unspecified (principal); M54.5 Low back pain; J45.909 Unspecified asthma, uncomplicated; Z88.6 Allergy status to analgesic agent; Z88.5 Allergy status to narcotic agent
CPT/HCPCS: 36591; 96376; 99284; 96372; 96361; 96374; 96375; 36415; 84703; 85025; 85045; 80053; 81001; J1200; J3410; J1170; J2405; J7030; S0028; J1642

== ENCOUNTER 2020-01-04 19:16 | Inpatient (IN) | payer MEDICAID, OTHER ==
[2020-01-04] MEDS ORDERED: NORMAL SALINE 1000 ML 1,000 ML IV ONE (20:47)
[2020-01-04] MEDS ORDERED: HYDROCODONE/ACETAMINOPHEN 10-325 MG TABLET PO ONE (20:51)
--- NOTE | 2020-01-04 20:57 | ER Document Report ---
ED Medical Screen (RME) - General Chief Complaint: Sickle Cell Crisis Stated Complaint: MUSCLE PAIN Time Seen by Provider: 01/04/20 20:46 TRAVEL OUTSIDE OF THE [place] IN LAST 30 DAYS: No - HPI Notes: 01/04/20 20:58 24-year-old female with a history of sickle cell disease presents to the emergency room with complaints of chest pain, lower back pain and right leg pain which she states are common symptoms for her sickle cell crisis, states her symptoms started 4 days ago and has become progressively worse. Patient reports that she just moved from [place] at the beginning of November so she has not established with a process development associate. Last menstrual cycle was December 22, 2019. States that she tried Tylenol at home without relief. Denies any shortness of breath, nausea, vomiting, diarrhea, rashes, fever, chills. I have greeted and performed a rapid initial assessment of this patient. A comprehensive ED assessment and evaluation of the patient, analysis of test results and completion of the medical decision making process will be conducted by additional ED providers. PHYSICAL EXAMINATION: GENERAL: Well-appearing, well-nourished and in no acute distress. HEAD: Atraumatic, normocephalic. EYES: Pupils equal round extraocular movements intact, conjunctiva are normal. NECK: Normal range of motion CV: s1, s2 regular LUNGS: No respiratory distress Musculoskeletal: Normal range of motion NEUROLOGICAL: Normal speech, normal gait. SKIN: Warm, Dry, normal turgor, no rashes or lesions noted. 01/04/20 21:03 - Related Data Allergies/Adverse Reactions: morphine Allergy (Severe, Verified 12/25/19 15:44) RASH,SWELLING jacob peppers Adverse Reaction (Severe, Uncoded 12/25/19 15:44) throat closes Past Medical History - Social History Family history: Reviewed & Not Pertinent, Other - Pt was adopted. Does not know family history - Past Medical History Cardiac Medical History: Reports: Hx DVT - RUE s/p port placement Pulmonary Medical History: Reports: Hx Asthma, Hx Bronchitis, Hx Pneumonia Neurological Medical History: Denies: Hx Parkinson's Disease Endocrine Medical History: Denies: Hx Diabetes Mellitus Type 1, Hx Diabetes Mellitus Type 2 Renal/ Medical History: Denies: Hx Peritoneal Dialysis GI Medical History: Musculoskeltal Medical History: Reports Hx Musculoskeletal Trauma Psychiatric Medical History: Reports: Hx Anxiety, Hx Depression - [facility] Admission 05/14/2016 Past Surgical History: Reports: Hx Cholecystectomy - 06/28/2015, Hx Vascular Surgery - port put in December,, Other - Port-A-Cath in right upper chest - Immunizations Immunizations up to date: Yes Hx Diphtheria, Pertussis, Tetanus Vaccination: Yes Physical Exam - Vital signs Vitals: Temp Pulse Resp BP Pulse Ox 98.6 F 82 16 124/70 100 01/04/20 19:21 01/04/20 19:21 01/04/20 19:21 01/04/20 19:21 01/04/20 19:21 Course - Vital Signs Vital signs: Temp Pulse Resp BP Pulse Ox 98.6 F 82 16 124/70 100 01/04/20 19:21 01/04/20 19:21 01/04/20 19:21 01/04/20 19:21 01/04/20 19:21
[2020-01-04] MEDS ORDERED: DIPHENHYDRAMINE HCL 50 MG/ML VIAL IV ONE (20:59)
[2020-01-04] MEDS ORDERED: ONDANSETRON HCL INJ/PF 4 MG/2 ML SDV IV ONE (21:28)
[2020-01-04] MEDS ORDERED: HYDROCODONE/ACETAMINOPHEN 5-325 MG TABLET PO ONE (21:46)
[2020-01-05] MEDS ORDERED: ONDANSETRON HCL INJ/PF 4 MG/2 ML SDV IV ONE (08:00)
[2020-01-05] MEDS ORDERED: DIPHENHYDRAMINE HCL 50 MG/ML VIAL IV ONE (08:00)
[2020-01-05] MEDS ORDERED: NORMAL SALINE 1000 ML 1,000 ML IV ONE ×2 (08:00→11:31)
[2020-01-05 08:43] LABS: ABSOLUTE RETICS # 0.167 10^6/uL (0.028-0.122); HEMATOCRIT 27.9 % (36.0-47.0); HEMOGLOBIN 9.9 g/dL (12.0-15.5); MEAN CORPUSCULAR HEMOGLOBIN 33.3 pg (27.0-33.4); MEAN CORPUSCULAR HGB CONC 35.5 g/dL (32.0-36.0); MEAN CORPUSCULAR VOLUME 94 fl (80-97); PLATELET COUNT 484 10^3/uL (150-450); RED BLOOD COUNT 2.97 10^6/uL (3.72-5.28); RED CELL DISTRIBUTION WIDTH 22.6 % (11.5-14.0); RETICULOCYTE COUNT (AUTO) 5.63 % (0.66-2.85); WHITE BLOOD COUNT 12.6 10^3/uL (4.0-10.5)
[2020-01-05 09:03] LABS: ABSOLUTE LYMPHOCYTES# (MANUAL) 3.2 10^3/uL (0.5-4.7); ABSOLUTE MONOCYTES # (MANUAL) 0.8 10^3/uL (0.1-1.4); ANISOCYTOSIS 3+; BASOPHILS % (MANUAL) 0 % (0-2); EOSINOPHILS % (MANUAL) 0 % (0-6); LYMPHOCYTES % (MANUAL) 25 % (13-45); MONOCYTES % (MANUAL) 6 % (3-13); PLATELET COMMENT ADEQUATE; SEGMENTED NEUTROPHILS % (MAN) 69 % (42-78); TOTAL CELLS COUNTED 100
[2020-01-05 09:04] LABS: POIKILOCYTOSIS 1+; POLYCHROMASIA 1+; TARGET CELLS 1+
[2020-01-05 09:06] LABS: SICKLE RED CELLS SLIGHT
[2020-01-05 09:20] LABS: ALBUMIN 4.3 g/dL (3.5-5.0); ALKALINE PHOSPHATASE 78 U/L (38-126); ANION GAP 11 (5-19); ASPARTATE AMINO TRANSFERASE 38 U/L (14-36); BILIRUBIN,DIRECT 0.7 mg/dL (0.0-0.4); BILIRUBIN,TOTAL 6.2 mg/dL (0.2-1.3); BLOOD UREA NITROGEN 4 mg/dL (7-20); CARBON DIOXIDE 23 mmol/L (22-30); CHLORIDE 106 mmol/L (98-107); GLUCOSE 88 mg/dL (75-110); POTASSIUM 3.3 mmol/L (3.6-5.0); TOTAL PROTEIN 7.3 g/dL (6.3-8.2)
[2020-01-05 09:25] LABS: APPEARANCE,URINE CLEAR; BILIRUBIN,URINE NEGATIVE (NEGATIVE); COLOR,URINE YELLOW; GLUCOSE, URINE NEGATIVE (NEGATIVE); KETONES,URINE NEGATIVE (NEGATIVE); LEUKOCYTE ESTERASE,URINE NEGATIVE (NEGATIVE); NITRITE,URINE NEGATIVE (NEGATIVE); PROTEIN,URINE NEGATIVE (NEGATIVE); URINE SPECIFIC GRAVITY 1.006
[2020-01-05 09:41] LABS: URINE AMPHETAMINES SCREEN NEGATIVE; URINE BARBITURATES SCREEN NEGATIVE; URINE BENZODIAZEPINES SCREEN NEGATIVE; URINE COCAINE SCREEN NEGATIVE; URINE MARIJUANA (THC) SCREEN NEGATIVE; URINE METHADONE SCREEN NEGATIVE; URINE PHENCYCLIDINE SCREEN NEGATIVE
[2020-01-05] MEDS ORDERED: HYDROMORPHONE HCL INJ/PF 2 MG/ML AMPULE IV ONE ×3 (09:46→12:51)
--- NOTE | 2020-01-05 11:25 | ER Document Report ---
ED General - General Chief Complaint: Sickle Cell Crisis Stated Complaint: MUSCLE PAIN Time Seen by Provider: 01/04/20 20:46 Notes: CHIEF COMPLAINT: Low back pain and right leg pain HPI: 24-year-old female with sickle cell anemia presenting for low back pain and right leg pain again. Patient states this began 4 days ago. Patient states she recently moved back to the area a month ago and has not reestablished with her director of student aid. Denies chest pain. Denies fever. Denies shortness of breath. Denies abdominal pain nausea or vomiting. States the pain that she is having is typical of her sickle cell pain. ROS: See HPI - all other systems were reviewed and are otherwise negative Constitutional: no fever Eyes: no drainage, no blurred vision ENT: no runny nose, no sore throat Cardiovascular: no chest pain Resp: no SOB, no cough GI: no vomiting, no diarrhea, no abdominal pain : no dysuria Integumentary: no rash Allergy: no hives Musculoskeletal: Positive extremity pain, no swelling Neurological: no numbness/tingling, no weakness MEDICATIONS: I agree with the patient medications as charted by the RN. ALLERGIES: I agree with the allergies as charted by the RN. PAST MEDICAL HISTORY/PAST SURGICAL HISTORY: Reviewed and agree as charted by RN. SOCIAL HISTORY: Reviewed and agree as charted by RN. FAMILY HISTORY: No significant familial comorbid conditions directly related to patient complaint EXAM: Reviewed vital signs as charted by RN. CONSTITUTIONAL: Alert and oriented and responds appropriately to questions. Lately uncomfortable-appearing; well-nourished HEAD: Normocephalic; atraumatic EYES: PERRL; Conjunctivae clear, sclerae non-icteric ENT: normal nose; no rhinorrhea; moist mucous membranes; pharynx without lesions noted, no uvula edema or deviation, no tonsillar hypertrophy, phonation normal NECK: Supple without meningismus; non-tender; no cervical lymphadenopathy, no masses CARD: RRR; no murmurs, no clicks, no rubs, no gallops; symmetric distal pulses RESP: Normal chest excursion without splinting or tachypnea; breath sounds clear and equal bilaterally; no wheezes, no rhonchi, no rales, pulse oximetry 98% on room air not hypoxic ABD/GI: Normal bowel sounds; non-distended; soft, non-tender, no rebound, no guarding; no palpable organomegaly or masses. BACK: The back appears normal and is mildly tender to palpation across the lower back, there is no CVA tenderness EXT: Normal ROM in all joints; mildly tender to palpation across the lateral thigh; no cyanosis, no effusions, no edema SKIN: Normal color for age and race; warm; dry; good turgor; no acute lesions noted NEURO: Moves all extremities equally; Motor and sensory function intact PSYCH: The patient's mood and manner are appropriate. Grooming and personal hygiene are appropriate. MDM: 24-year-old female with sickle cell crisis today. Patient's lab work does not show significant difference from her prior visit a week ago. She has been here 4 times in a month now all related to pain issues. Has not bothered to establish with her prior director of [facility] aid [facility] in the last month. She has followed with Dr. Baum in the past. Patient had been waiting in the emergency department for 13 hours already prior to my evaluation. Her lab work that was ordered last night was not done until this morning. Patient was given IV Benadryl prior to my evaluation of the patient. She is received 1 L of IV fluids at this time I will give her a milligram of Dilaudid and reassess TRAVEL OUTSIDE OF THE [place] IN LAST 30 DAYS: No - Related Data Allergies/Adverse Reactions: morphine Allergy (Severe, Verified 01/05/20 07:26) RASH,SWELLING jacob peppers Adverse Reaction (Severe, Uncoded 01/05/20 07:26) throat closes Home Medications: hydroxurea, celexa, vitamin d, folic acid, endari, Past Medical History - Social History Smoking Status: Never Smoker Family History: Other - Sickle cell disease and sickle cell trait, asthma - Past Medical History Cardiac Medical History: Reports: Hx DVT - RUE s/p port placement Pulmonary Medical History: Reports: Hx Asthma, Hx Bronchitis, Hx Pneumonia Neurological Medical History: Denies: Hx Parkinson's Disease Endocrine Medical History: Denies: Hx Diabetes Mellitus Type 1, Hx Diabetes Me llitus Type 2 Renal/ Medical History: Denies: Hx Peritoneal Dialysis GI Medical History: Musculoskeletal Medical History: Reports Hx Musculoskeletal Trauma Psychiatric Medical History: Reports: Hx Anxiety, Hx Depression - [facility] Admission 05/14/2016 Past Surgical History: Reports: Hx Cholecystectomy - 06/28/2015, Hx Vascular Surgery - port put in December,, Other - Port-A-Cath in right upper chest - Immunizations Immunizations up to date: Yes Hx Diphtheria, Pertussis, Tetanus Vaccination: Yes Physical Exam - Vital signs Vitals: Temp Pulse Resp BP Pulse Ox 98.6 F 82 16 124/70 100 01/04/20 19:21 01/04/20 19:21 01/04/20 19:21 01/04/20 19:21 01/04/20 19:21 Course - Re-evaluation Re-evalutation: 01/05/20 11:25 Patient reports continued pain will order 1 additional milligram of Dilaudid and IV fluids again. Her lab work is not significantly abnormal although her to count is mildly elevated still. 01/05/20 12:48 I spoke with the patient. She states that she is still having pain. Discussed with Dr. Garcia attending. Patient has received 2 L of IV fluids. She has no specific infectious factors urine does not show evidence of infection. She states that she cannot see Dr. Baum because of transportation issues. She is requesting to be admitted at this time as she is still continue to have pain states Toradol does not help her. Will discuss with the hospitalist team. 01/05/20 12:[address] Fermin, he is going into a patient requests I call him in 30 minutes to discuss patient 01/05/20 13:[address] Fermin, then Helga Parekh NP for hospitalist service. Case was discussed, they will admit, telemetry observation - Vital Signs Vital signs: Temp Pulse Resp BP Pulse Ox 98.0 F 78 20 100/50 L 100 01/05/20 08:54 01/05/20 08:54 01/05/20 08:54 01/05/20 08:54 01/05/20 08:54 - Laboratory Result Diagrams: 01/05/20 08:15 01/05/20 08:15 Laboratory results interpreted by me: 01/05/20 01/05/20 01/05/20 08:15 08:15 08:55 WBC 12.6 H RBC 2.97 L Hgb 9.9 L Hct 27.9 L RDW 22.6 H Plt Count 484 H Reticulocyte # 0.167 H Abs Neuts (Manual) 8.7 H Retic Count (auto) 5.63 H Potassium 3.3 L BUN 4 L Total Bilirubin 6.2 H Direct Bilirubin 0.7 H AST 38 H Urine Urobilinogen 2.0 H Discharge - Discharge Clinical Impression: Sickle cell crisis Condition: Stable Disposition: ADMITTED OBSERVATION Admitting Provider: Zander (Hospitalist) Unit Admitted: Telemetry
[2020-01-05] MEDS ORDERED: KETOROLAC TROMETHAMINE INJ/PF 30 MG/1 ML SDV IV ONE (12:51)
[2020-01-05] MEDS ORDERED: NORMAL SALINE 10 ML SDV (AFTER EACH USE) IV PRN (13:30)
[2020-01-05] MEDS ORDERED: ALBUTEROL SULFATE 0.083% NEB 2.5 MG/3 ML AMPUL NEB PRN (14:34)
[2020-01-05] MEDS ORDERED: MAG HYDROX/AL HYDROX/SIMETH SUSP 30 ML UDCUP PO PRN (14:34)
[2020-01-05] MEDS ORDERED: ONDANSETRON HCL INJ/PF 4 MG/2 ML SDV IV PRN (14:34)
--- NOTE | 2020-01-05 15:04 | PDOC H&P ---
History of Present Illness Admission Date/PCP: 01/05/20 13:32 Patient complains of: sickle cell pain History of Present Illness: CASSANDRA MIDDLETON is a 24 year old female with a past medical history of sickle cell anemia, Acute chest syndrome, DVT, opiate dependent chronic pain, depression and anxiety who presented to the emergency department today with uncontrolled sickle cell pain x1 month despite home medication treatment and multiple ED visits. Patient believes that her sickle cell crisis was precipitated by air travel from [place] to [place] with associated elevation/altitude and weather changes. She reports that she has not had increases hospital admissions for her sickle cell crisis over the last year (while living in [place]; has permanently returned to [place]). She reports that approximately 15 to 20 days out of the month she requires oral Dilaudid for management of her pain but that there are several days of the month that she is adequately controlled with [id number] Motrin and Tylenol. Evaluation in the emergency department reveals stable vital signs, leukocytosis (WBC is 12.6), baseline anemia (hemoglobin 9.9), thrombocytosis (PLT 44), baseline reticulocyte count (0.167), mild hypokalemia (K3.3), elevated total bili and AST (6.2/38), negative urinalysis, and UDS positive for opiates only. Chest x-ray is pending. Patient denies any recent illnesses or known sick contacts. Despite receiving IV fluids and IV Dilaudid, patient continues to have uncontrolled pain and therefore was referred to the hospitalist service for further evaluation and management of the above stay complaints and findings. I did speak with Dr. Madrigal; confirms that patient was last seen in their office ~18 months ago and left under good standing. Will consult for assistance in managing her SSC pain and to ensure timely re-establishment of local care. (Patient confirms she has not yet established w/ PCP or hematology since return to [place]). Past Medical History Cardiac Medical History: Reports: DVT - RUE s/p port placement Denies: Hyperlipidema Pulmonary Medical History: Reports: Asthma, Bronchitis, Pneumonia EENT Medical History: Reports: None Neurological Medical History: Reports: None Endocrine Medical History: Denies: Diabetes Mellitus Type 1, Diabetes Mellitus Type 2 Renal/ Medical History: GI Medical History: Reports: None Musculoskeltal Medical History: Reports: None Skin Medical History: Reports: None Psychiatric Medical History: Reports: Depression, General Anxiety Disorder Hematology: Reports: Anemia, Sickle Cell Disease Denies: Bleeding Tendencies Infectious Medical History: Reports: None Past Surgical History Past Surgical History: Reports: Cholecystectomy - 06/28/2015, Other - Port-A-Cath in right upper chest Social History Information Source: Patient Lives with: Family Smoking Status: Former Smoker Last Time Smoked: 2019 Frequency of Alcohol Use: Social Hx Recreational Drug Use: No Drugs: None Hx Prescription Drug Abuse: No - Advance Directive Resuscitation Status: Full Code Family History Family History: Other - Sickle cell disease and sickle cell trait, asthma Parental Family History Reviewed: Yes Children Family History Reviewed: Yes Sibling(s) Family History Reviewed.: Yes Medication/Allergy Home Medications: Aripiprazole [Abilify 10 mg Tablet] 10 mg PO QHS 09/05/18 Folic Acid [Folvite 1 mg Tablet] 1 mg PO DAILY 09/05/18 Hydromorphone HCl [Dilaudid] 8 mg PO Q6 09/05/18 Hydroxyurea [Hydrea 500 mg Capsule] 500 mg PO BID 09/05/18 Oxycodone HCl [Oxy-Ir 5 mg Tablet] 5 mg PO Q6HP PRN 09/05/18 Rivaroxaban [Xarelto] 20 mg PO DAILY 09/05/18 Acetaminophen [Tylenol 325 mg Tablet] 650 mg PO Q4HP PRN tablet 09/15/18 Docusate Sodium [Colace 100 mg Capsule] 100 mg PO BID capsule 09/15/18 Escitalopram Oxalate [Lexapro 10 mg Tablet] 10 mg PO DAILY #30 tablet 09/15/18 Levofloxacin [Levaquin 750 mg Tablet] 750 mg PO DAILY #7 tablet 09/15/18 Sennosides/Docusate 8.6-50 mg [Senna Plus Tablet] 2 each PO BID tablet 09/15/18 Allergies/Adverse Reactions: morphine Allergy (Severe, Verified 01/05/20 07:26) RASH,SWELLING jacob peppers Adverse Reaction (Severe, Uncoded 01/05/20 07:26) throat closes Review of Systems Constitutional: ABSENT: chills, fever(s), headache(s), weight gain, weight loss Eyes: ABSENT: visual disturbances Ears: ABSENT: hearing changes Cardiovascular: ABSENT: chest pain, dyspnea on exertion, edema, orthropnea, palpitations Respiratory: ABSENT: cough, hemoptysis Gastrointestinal: PRESENT: nausea. ABSENT: abdominal pain, constipation, diarrhea, hematemesis, hematochezia, vomiting Genitourinary: ABSENT: dysuria, hematuria Musculoskeletal: PRESENT: back pain, other - joint pain; especially RLE. ABSENT: joint swelling Integumentary: ABSENT: rash, wounds Neurological: ABSENT: abnormal gait, abnormal speech, confusion, dizziness, focal weakness, syncope Psychiatric: ABSENT: anxiety, depression, homidical ideation, suicidal ideation Endocrine: ABSENT: cold intolerance, heat intolerance, polydipsia, polyuria Hematologic/Lymphatic: ABSENT: easy bleeding, easy bruising Physical Exam Vital Signs: Temp Pulse Resp BP Pulse Ox 98.1 F 84 18 110/55 L 100 01/05/20 14:25 01/05/20 14:25 01/05/20 14:25 01/05/20 14:25 01/05/20 14:25 Intake & Output 01/04/20 01/05/20 01/06/20 06:59 06:59 06:59 Intake Total 1999 Balance 1999 Weight 72.575 kg General appearance: PRESENT: no acute distress, cooperative, well-developed, well-nourished Head exam: PRESENT: atraumatic, normocephalic Eye exam: PRESENT: conjunctiva pink, EOMI, PERRLA. ABSENT: scleral icterus Mouth exam: PRESENT: moist, tongue midline Respiratory exam: PRESENT: clear to auscultation samaria, symmetrical, unlabored. ABSENT: rales, rhonchi, wheezes Cardiovascular exam: PRESENT: RRR. ABSENT: diastolic murmur, rubs, systolic murmur Pulses: PRESENT: normal dorsalis pedis pul Vascular exam: PRESENT: normal capillary refill Extremities exam: PRESENT: full ROM. ABSENT: calf tenderness, clubbing, pedal edema Musculoskeletal exam: PRESENT: ambulatory Neurological exam: PRESENT: alert, awake, oriented to person, oriented to place, oriented to time, oriented to situation, CN II-XII grossly intact. ABSENT: motor sensory deficit Psychiatric exam: PRESENT: appropriate affect, normal mood. ABSENT: homicidal ideation, suicidal ideation Skin exam: PRESENT: dry, intact, warm. ABSENT: cyanosis, rash Results Laboratory Results: 01/05/20 08:15 01/05/20 08:15 01/05/20 01/05/20 01/05/20 08:15 08:15 08:55 WBC 12.6 H RBC 2.97 L Hgb 9.9 L Hct 27.9 L MCV 94 MCH 33.3 MCHC 35.5 RDW 22.6 H Plt Count 484 H Seg Neutrophils % Not Reportable Retic Count (auto) 5.63 H Sodium 139.9 Potassium 3.3 L Chloride 106 Carbon Dioxide 23 Anion Gap 11 BUN 4 L Creatinine 0.52 Est GFR ( Amer) > 60 Glucose 88 Calcium 9.0 Total Bilirubin 6.2 H AST 38 H Alkaline Phosphatase 78 Total Protein 7.3 Albumin 4.3 Urine Color YELLOW Urine Appearance CLEAR Urine pH 6.0 Ur Specific [place] 1.006 Urine Protein NEGATIVE Urine Glucose (UA) NEGATIVE Urine Ketones NEGATIVE Urine Blood NEGATIVE Urine Nitrite NEGATIVE Ur Leukocyte Esterase NEGATIVE Urine WBC (Auto) 1 Urine RBC (Auto) 0 Assessment and Plan - Diagnosis (1) Sickle cell pain crisis Is this a current diagnosis for this admission?: Yes Plan: Patient is admitted after multiple ED visits for uncontrolled pain despite home interventions. Recently travelled from [place]. No recent illnesses. Reviewed the controlled substance database. Patient has been routinely presc ribed Dilaudid 2 mg tabs #120 on a near monthly basis and Lyrica 100 mg tabs #45. In the ED, patient was provided IVF, Dilaudid and Benadryl with modest improvement in pain. She is admitted to the medical floor. We will continue generous IV fluids. Continue supplemental oxygen at 2 L/min. Hydroxyurea 1000 mg daily. Folic acid 1 mg daily. Initial analgesics: PO Tylenol every 6 hours as needed, IV Toradol 30 mg every 6 hours PRN, IV Dilaudid 1 mg every 4 hours. Hematology is consulted; will defer further pain medication management to their expertise. IV Benadryl and Zofran as needed for symptom management. Heating pad. Encourage out of bed activity and ambulation in the hallway. (2) Sickle cell anemia Qualifiers: Sickle-cell associated disorders: with unspecified crisis Qualified Code(s): D57.00 - Hb-SS disease with crisis, unspecified; D57.0 - Hb-SS disease with crisis Is this a current diagnosis for this admission?: Yes Plan: Hemoglobin 9.9. Retic count 0.167. Continue daily folic acid. Daily CBC. Hematology consulted. (3) Back pain Qualifiers: Back pain location: low back pain Chronicity: unspecified Back pain laterality: bilateral Sciatica presence: without sciatica Qualified Code(s): M54.5 - Low back pain Is this a current diagnosis for this admission?: Yes Plan: Secondary to #1. Evaluation management as above. (4) Thrombocytosis Is this a current diagnosis for this admission?: Yes Plan: PLT 484 Continue aggressive IV fluid resuscitation. Lovenox for DVT prophylaxis; patient does have a history of DVT. Hematology is consulted. (5) Depression with anxiety Is this a current diagnosis for this admission?: Yes Plan: We will continue the patient's home dose Celexa and BuSpar. (6) Elevated bilirubin Is this a current diagnosis for this admission?: Yes Plan: Chronic. Total bili 6.2. Appears baseline is 4-5. AST 38, ALT 18, alk phos 78. Continue IV fluids. Periodic LFTs. - Time Time Spent with patient: 35 or more minutes Medications reviewed and adjusted accordingly: Yes Anticipated Discharge Disposition: Home, Self Care Anticipated Discharge Timeframe: undetermined
--- NOTE | 2020-01-05 16:24 | RADIOLOGY REPORT (SQ) ---
EXAM DESCRIPTION: CHEST SINGLE VIEW IMAGES COMPLETED DATE/TIME: 01/05/2020 3:06 pm REASON FOR STUDY: leukocytosis COMPARISON: 01/17/2019 TECHNIQUE: Single frontal radiographic view of the chest acquired. NUMBER OF VIEWS: One view. LIMITATIONS: None. FINDINGS: LUNGS AND PLEURA: No pneumothorax. No consolidation or pleural effusion. MEDIASTINUM AND HILAR STRUCTURES: Stable. HEART AND VASCULAR STRUCTURES: Stable. BONES: No acute findings. HARDWARE: Right chest port. OTHER: No other significant finding. IMPRESSION: NO ACUTE FINDINGS. TECHNICAL DOCUMENTATION: JOB ID: [id number] [employer]- All Rights Reserved [place] location - IP/workstation name: [employer]
[2020-01-05] MEDS: ENOXAPARIN SODIUM INJ 40 MG/0.4 ML DISP.SYRIN SUBCUT SCH (17:58)
[2020-01-05] MEDS: PREGABALIN 100 MG CAPSULE PO SCH (17:59)
[2020-01-05] MEDS: NORMAL SALINE 1000 ML 1,000 ML IV PRN ×2 (19:00→23:18)
[2020-01-05] MEDS: HYDROMORPHONE HCL INJ/PF 2 MG/ML AMPULE IV PRN ×2 (19:10→23:17)
[2020-01-05] MEDS: DIPHENHYDRAMINE HCL 50 MG/ML VIAL IV PRN (19:54)
[2020-01-05] MEDS: KETOROLAC TROMETHAMINE INJ/PF 30 MG/1 ML SDV IV PRN (22:08)
[2020-01-06] MEDS: DIPHENHYDRAMINE HCL 50 MG/ML VIAL IV PRN ×3 (02:15→21:26)
[2020-01-06] MEDS: HYDROMORPHONE HCL INJ/PF 2 MG/ML AMPULE IV PRN ×8 (03:57→21:26)
[2020-01-06 04:35] LABS: HEMATOCRIT 24.4 % (36.0-47.0); HEMOGLOBIN 8.7 g/dL (12.0-15.5); MEAN CORPUSCULAR HEMOGLOBIN 33.7 pg (27.0-33.4); MEAN CORPUSCULAR HGB CONC 35.6 g/dL (32.0-36.0); MEAN CORPUSCULAR VOLUME 95 fl (80-97); PLATELET COUNT 402 10^3/uL (150-450); RED BLOOD COUNT 2.58 10^6/uL (3.72-5.28); WHITE BLOOD COUNT 9.4 10^3/uL (4.0-10.5)
[2020-01-06 04:58] LABS: ANION GAP 6 (5-19); BLOOD UREA NITROGEN 7 mg/dL (7-20); CALCIUM 8.1 mg/dL (8.4-10.2); CARBON DIOXIDE 28 mmol/L (22-30); CHLORIDE 108 mmol/L (98-107); GLUCOSE 93 mg/dL (75-110); POTASSIUM 4.2 mmol/L (3.6-5.0)
[2020-01-06] MEDS: KETOROLAC TROMETHAMINE INJ/PF 30 MG/1 ML SDV IV PRN (05:24)
[2020-01-06] MEDS: NORMAL SALINE 1000 ML 1,000 ML IV PRN ×3 (06:10→19:11)
[2020-01-06] MEDS ORDERED: INFLUENZA QUAD (6MOS+) 2020-21 VAC 0.5 ML SYR IM ONE (08:00)
[2020-01-06] MEDS ORDERED: PROMETHAZINE HCL INJ 25 MG/1 ML VIAL IV PRN (08:02)
[2020-01-06] MEDS ORDERED: SENNOSIDES/DOCUSATE 8.6-50 MG 1 EACH TABLET PO PRN (08:03)
--- NOTE | 2020-01-06 08:05 | PDOC CONSULTATION ---
Consultation Consult Date: 01/06/20 Attending physician:: YOVANNY FREEMAN Provider Consulted: JOIE MOREIRA Consult reason:: Sickle cell disease with crisis History of Present Illness Admission Date/PCP: 01/05/20 13:32 Patient complains of: Pain crisis History of Present Illness: CASSANDRA MIDDLETON is a 24 year old female well-known to our oncology clinic with longstanding history of sickle cell disease, last time we saw her in our office was about a year and a half ago, she had moved to [place], there she had a few admissions for crisis but less than when she was here previous. She just traveled about 18 hours on plane, thereafter she had a lot of pain weakness consistent with her crisis. This morning she is in a lot of pain, with pain poorly controlled with Dilaudid 1 mg IV every 4 hours. Past Medical History Cardiac Medical History: Reports: DVT - RUE s/p port placement Denies: Hyperlipidema Pulmonary Medical History: Reports: Asthma, Bronchitis, Pneumonia EENT Medical History: Reports: None Neurological Medical History: Reports: None Endocrine Medical History: Denies: Diabetes Mellitus Type 1, Diabetes Mellitus Type 2 Renal/ Medical History: GI Medical History: Reports: None Musculoskeltal Medical History: Reports: None Skin Medical History: Reports: None Psychiatric Medical History: Reports: Depression, General Anxiety Disorder Hematology: Reports: Anemia, Sickle Cell Disease Denies: Bleeding Tendencies Infectious Medical History: Reports: None Past Surgical History Past Surgical History: Reports: Cholecystectomy - 06/28/2015, Vascular Surgery - port put in December,, Other - Port-A-Cath in right upper chest Social History Information Source: Patient Lives with: Family Smoking Status: Former Smoker Last Time Smoked: 2019 Frequency of Alcohol Use: Social Hx Recreational Drug Use: No Drugs: None Hx Prescription Drug Abuse: No - Advance Directive Resuscitation Status: Full Code Family History Family History: Other - Sickle cell disease and sickle cell trait, asthma Parental Family History Reviewed: Yes Children Family History Reviewed: Yes Sibling(s) Family History Reviewed.: Yes Medication/Allergy Home Medications: Buspirone HCl [Buspar 10 mg Tablet] 5 mg PO BID 01/05/20 Cholecalciferol (Vitamin D3) [Vitamin D3 1000 Unit Tablet] 1,000 unit PO DAILY 01/05/20 Citalopram Hydrobromide [Celexa 20 mg Tablet] 20 mg PO Q12 01/05/20 Diphenhydramine HCl [Benadryl] 25 mg PO Q6HP PRN 01/05/20 Folic Acid [Folvite 1 mg Tablet] 1 mg PO DAILY 01/05/20 Glutamine [Endari] 3 packet PO BID 01/05/20 Hydromorphone HCl [Dilaudid 2 mg Tablet] 2 mg PO Q6HP PRN 01/05/20 Hydroxyurea [Hydrea 500 mg Capsule] 1,000 mg PO QAM 01/05/20 Hydroxyurea [Hydrea 500 mg Capsule] 500 mg PO QHS 01/05/20 Ibuprofen [Motrin 400 mg Tablet] 400 mg PO Q8 01/05/20 Pregabalin [Lyrica 75 mg Capsule] 75 mg PO Q8HP PRN 01/05/20 Trazodone HCl [Desyrel 50 mg Tablet] 50 mg PO QHS 01/05/20 Allergies/Adverse Reactions: morphine Allergy (Severe, Verified 01/05/20 07:26) RASH,SWELLING jacob peppers Adverse Reaction (Severe, Uncoded 01/05/20 07:26) throat closes Review of Systems Constitutional: PRESENT: anorexia, weakness Cardiovascular: PRESENT: chest pain Gastrointestinal: PRESENT: nausea Musculoskeletal: PRESENT: back pain, other - Diffuse pain related to pain crisis Physical Exam Vital Signs: Temp Pulse Resp BP Pulse Ox 97.8 F 78 16 106/51 L 98 01/06/20 00:10 01/06/20 00:10 01/06/20 00:10 01/06/20 00:10 01/06/20 00:10 Intake & Output 01/05/20 01/06/20 01/07/20 06:59 06:59 06:59 Intake Total 3600 Balance 3600 Weight 72.575 kg 98.9 kg General appearance: PRESENT: no acute distress, well-developed, well-nourished Head exam: PRESENT: atraumatic, normocephalic Eye exam: PRESENT: conjunctiva pink, EOMI, PERRLA. ABSENT: scleral icterus Ear exam: PRESENT: normal external ear exam Mouth exam: PRESENT: moist, tongue midline Neck exam: ABSENT: carotid bruit, JVD, lymphadenopathy, thyromegaly Respiratory exam: PRESENT: clear to auscultation samaria. ABSENT: rales, rhonchi, wheezes Cardiovascular exam: PRESENT: RRR. ABSENT: diastolic murmur, rubs, systolic murmur Pulses: PRESENT: normal dorsalis pedis pul Vascular exam: PRESENT: normal capillary refill GI/Abdominal exam: PRESENT: normal bowel sounds, soft. ABSENT: distended, guarding, mass, organolmegaly, rebound, tenderness Rectal exam: PRESENT: deferred Extremities exam: PRESENT: full ROM. ABSENT: calf tenderness, clubbing, pedal edema Neurological exam: PRESENT: alert, awake, oriented to person, oriented to place, oriented to time, oriented to situation, CN II-XII grossly intact. ABSENT: motor sensory deficit Psychiatric exam: PRESENT: appropriate affect, normal mood. ABSENT: homicidal ideation, suicidal ideation Skin exam: PRESENT: dry, intact, warm. ABSENT: cyanosis, rash Results Laboratory Results: 01/06/20 04:10 01/06/20 04:10 01/05/20 01/05/20 01/05/20 08:15 08:15 08:55 WBC 12.6 H RBC 2.97 L Hgb 9.9 L Hct 27.9 L MCV 94 MCH 33.3 MCHC 35.5 RDW 22.6 H Plt Count 484 H Seg Neutrophils % Not Reportable Retic Count (auto) 5.63 H Sodium 139.9 Potassium 3.3 L Chloride 106 Carbon Dioxide 23 Anion Gap 11 BUN 4 L Creatinine 0.52 Est GFR ( Amer) > 60 Glucose 88 Calcium 9.0 Total Bilirubin 6.2 H AST 38 H Alkaline Phosphatase 78 Total Protein 7.3 Albumin 4.3 Urine Color YELLOW Urine Appearance CLEAR Urine pH 6.0 Ur Specific [place] 1.006 Urine Protein NEGATIVE Urine Glucose (UA) NEGATIVE Urine Ketones NEGATIVE Urine Blood NEGATIVE Urine Nitrite NEGATIVE Ur Leukocyte Esterase NEGATIVE Urine WBC (Auto) 1 Urine RBC (Auto) 0 01/06/20 01/06/20 04:10 04:10 WBC 9.4 RBC 2.58 L Hgb 8.7 L Hct 24.4 L MCV 95 MCH 33.7 H MCHC 35.6 RDW 22.0 H Plt Count 402 Seg Neutrophils % Retic Count (auto) Sodium 141.5 Potassium 4.2 Chloride 108 H Carbon Dioxide 28 Anion Gap 6 BUN 7 Creatinine 0.66 Est GFR ( Amer) > 60 Glucose 93 Calcium 8.1 L Total Bilirubin AST Alkaline Phosphatase Total Protein Albumin Urine Color Urine Appearance Urine pH Ur Specific [place] Urine Protein Urine Glucose (UA) Urine Ketones Urine Blood Urine Nitrite Ur Leukocyte Esterase Urine WBC (Auto) Urine RBC (Auto) Impressions: Chest X-Ray 01/05/20 00:00 IMPRESSION: NO ACUTE FINDINGS. Assessment & Plan - Diagnosis (1) Sickle cell crisis Is this a current diagnosis for this admission?: Yes Plan: Sickle cell crisis, increase Dilaudid to 2 mg IV every 2 hours, start Phenergan IV every 6 hours, added bowel regimen, limited Toradol to use over only 72 hours so there is no renal hit. 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 Is this a current diagnosis for this admission?: Yes Plan: Hemoglobin stable currently, would transfuse if it gets under 7 - Time Time Spent: Greater than 70 Minutes - Inpatient Certification Based on my medical assessment, after consideration of the patient's comorbidities, presenting symptoms, or acuity I expect that the services needed warrant INPATIENT care.: Yes I certify that my determination is in accordance with my understanding of Medicare's requirements for reasonable and necessary INPATIENT services [42 CFR 412.3e].: Yes Medical Necessity: Need For IV Fluids, Need for Pain Control, Risk of Complication if Not Cared For in Hospital
[2020-01-06] MEDS ORDERED: HYDROMORPHONE HCL INJ/PF 2 MG/ML AMPULE IV ONE (08:15)
[2020-01-06] MEDS: DOCUSATE SODIUM 100 MG CAPSULE PO SCH (09:32)
[2020-01-06] MEDS: PREGABALIN 100 MG CAPSULE PO SCH ×3 (09:33→17:00)
[2020-01-06] MEDS: ENOXAPARIN SODIUM INJ 40 MG/0.4 ML DISP.SYRIN SUBCUT SCH (09:33)
[2020-01-06] MEDS: FOLIC ACID 1 MG TABLET PO SCH (09:33)
[2020-01-06] MEDS ORDERED: HYDROXYUREA 500 MG CAPSULE PO SCH (10:00)
--- NOTE | 2020-01-06 15:13 | PDOC PROGRESS REPORT ---
Subjective Progress Note for:: 01/06/20 Subjective:: CASSANDRA MIDDLETON is a 24 year old female with a past medical history of sickle cell anemia, Acute chest syndrome, DVT, opiate dependent chronic pain, depression and anxiety who was admitted 01/05/2020 with sickle cell crisis pain. Patient is seen on morning rounds. She is found resting in bed, comfortably, on room air. She reports persistent back and right leg pain; overall unimproved as compared to yesterday. Otherwise, she denies fever, chills, chest pain, palpitations, dyspnea, orthopnea, abdominal pain, nausea vomiting and diarrhea. She has no new questions or concerns. No concerns per nursing. Reason For Visit: SICKLE CELL PAIN Physical Exam Vital Signs: Temp Pulse Resp BP Pulse Ox 97.8 F 78 16 106/51 L 98 01/06/20 08:50 01/06/20 00:10 01/06/20 00:10 01/06/20 00:10 01/06/20 00:10 Intake & Output 01/05/20 01/06/20 01/07/20 06:59 06:59 06:59 Intake Total 3600 940 Balance 3600 940 Weight 72.575 kg 98.9 kg General appearance: PRESENT: no acute distress, cooperative, well-developed, well-nourished - Overweight Head exam: PRESENT: atraumatic, normocephalic Eye exam: PRESENT: conjunctiva pink, EOMI, PERRLA. ABSENT: scleral icterus Mouth exam: PRESENT: moist, tongue midline Respiratory exam: PRESENT: clear to auscultation samaria, symmetrical, unlabored. ABSENT: rales, rhonchi, wheezes Cardiovascular exam: PRESENT: RRR. ABSENT: diastolic murmur, rubs, systolic [place] Vascular exam: PRESENT: normal capillary refill Extremities exam: PRESENT: full ROM. ABSENT: calf tenderness, clubbing, pedal edema Musculoskeletal exam: PRESENT: ambulatory Neurological exam: PRESENT: alert, awake, oriented to person, oriented to place, oriented to time, oriented to situation, CN II-XII grossly intact. ABSENT: motor sensory deficit Psychiatric exam: PRESENT: appropriate affect, normal mood. ABSENT: homicidal ideation, suicidal ideation Skin exam: PRESENT: dry, intact, warm. ABSENT: cyanosis, rash Results Laboratory Results: 01/06/20 04:10 01/06/20 04:10 01/06/20 01/06/20 04:10 04:10 WBC 9.4 RBC 2.58 L Hgb 8.7 L Hct 24.4 L MCV 95 MCH 33.7 H MCHC 35.6 RDW 22.0 H Plt Count 402 Sodium 141.5 Potassium 4.2 Chloride 108 H Carbon Dioxide 28 Anion Gap 6 BUN 7 Creatinine 0.66 Est GFR ( Amer) > 60 Glucose 93 Calcium 8.1 L Impressions: Chest X-Ray 01/05/20 00:00 IMPRESSION: NO ACUTE FINDINGS. Assessment and Plan - Diagnosis (1) Sickle cell pain crisis Is this a current diagnosis for this admission?: Yes Plan: Patient is admitted after multiple ED visits for uncontrolled pain despite home interventions. Recently travelled from [place]. No recent illnesses. Reviewed the controlled substance database. Patient has been routinely prescribed Dilaudid 2 mg tabs #120 on a near monthly basis and Lyrica 100 mg tabs #45. In the ED, patient was provided IVF, Dilaudid and Benadryl with modest improvement in pain. She is admitted to the medical floor. We will continue generous IV fluids. Continue supplemental oxygen at 2 L/min. Hydroxyurea 1000 mg daily. Folic acid 1 mg daily. Hematology is consulted; will defer further pain medication management to their expertise. IV Benadryl and Zofran as needed for symptom management. Heating pad. Encourage ambulation (2) Sickle cell anemia Qualifiers: Sickle-cell associated disorders: with unspecified crisis Qualified Cod e(s): D57.00 - Hb-SS disease with crisis, unspecified; D57.0 - Hb-SS disease with crisis Is this a current diagnosis for this admission?: Yes Plan: Hemoglobin 9.9. Retic count 0.167. Continue daily folic acid. Daily CBC. Hematology consulted. (3) Back pain Qualifiers: Back pain location: low back pain Chronicity: unspecified Back pain laterality: bilateral Sciatica presence: without sciatica Qualified Code(s): M54.5 - Low back pain Is this a current diagnosis for this admission?: Yes Plan: Secondary to #1. Evaluation management as above. (4) Thrombocytosis Is this a current diagnosis for this admission?: Yes Plan: PLT 484-> 402 Continue aggressive IV fluid resuscitation. Lovenox for DVT prophylaxis; patient does have a history of DVT. Hematology is consulted. (5) Depression with anxiety Is this a current diagnosis for this admission?: Yes Plan: We will continue the patient's home dose Celexa and BuSpar. (6) Elevated bilirubin Is this a current diagnosis for this admission?: Yes Plan: Chronic. Total bili 6.2. Appears baseline is 4-5. AST 38, ALT 18, alk phos 78. Continue IV fluids. Periodic LFTs. - Time Time Spent with patient: 25-34 minutes Medications reviewed and adjusted accordingly: Yes Anticipated Discharge Disposition: Home, Self Care Anticipated Discharge Timeframe: undetermined
[2020-01-06] MEDS: BUSPIRONE HCL 10 MG TABLET PO SCH (17:03)
[2020-01-06] MEDS: HYDROXYUREA 500 MG CAPSULE PO SCH (21:25)
[2020-01-06] MEDS: TRAZODONE HCL 50 MG TABLET PO SCH (21:25)
[2020-01-06] MEDS: CITALOPRAM HYDROBROMIDE 20 MG TABLET PO SCH (21:25)
[2020-01-07] MEDS: HYDROMORPHONE HCL INJ/PF 2 MG/ML AMPULE IV PRN ×10 (01:09→21:45)
[2020-01-07] MEDS: NORMAL SALINE 1000 ML 1,000 ML IV PRN ×4 (02:27→22:22)
[2020-01-07] MEDS: ONDANSETRON HCL INJ/PF 4 MG/2 ML SDV IV PRN ×2 (03:43→21:45)
[2020-01-07] MEDS: DIPHENHYDRAMINE HCL 50 MG/ML VIAL IV PRN ×3 (03:43→17:00)
--- NOTE | 2020-01-07 07:59 | PDOC PROGRESS REPORT ---
Subjective Progress Note for:: 01/07/20 Subjective:: Patient still in considerable pain this morning. We will increase Dilaudid to 3 mg IV every 2 hours. Reason For Visit: SICKLE CELL PAIN Physical Exam Vital Signs: Temp Pulse Resp BP Pulse Ox 97.7 F 85 16 113/55 L 95 01/07/20 07:21 01/07/20 07:21 01/07/20 07:21 01/07/20 07:21 01/07/20 07:21 Intake & Output 01/06/20 01/07/20 01/08/20 06:59 06:59 06:59 Intake Total 3600 3680 Balance 3600 3680 Weight 98.9 kg 98.2 kg General appearance: PRESENT: no acute distress, well-developed, well-nourished Head exam: PRESENT: atraumatic, normocephalic Eye exam: PRESENT: conjunctiva pink, EOMI, PERRLA. ABSENT: scleral icterus Ear exam: PRESENT: normal external ear exam Mouth exam: PRESENT: moist, tongue midline Neck exam: ABSENT: carotid bruit, JVD, lymphadenopathy, thyromegaly Respiratory exam: PRESENT: clear to auscultation samaria. ABSENT: rales, rhonchi, wheezes Cardiovascular exam: PRESENT: RRR. ABSENT: diastolic murmur, rubs, systolic murmur Pulses: PRESENT: normal dorsalis pedis pul Vascular exam: PRESENT: normal capillary refill GI/Abdominal exam: PRESENT: normal bowel sounds, soft. ABSENT: distended, guarding, mass, organolmegaly, rebound, tenderness Rectal exam: PRESENT: deferred Extremities exam: PRESENT: full ROM. ABSENT: calf tenderness, clubbing, pedal edema Neurological exam: PRESENT: alert, awake, oriented to person, oriented to place, oriented to time, oriented to situation, CN II-XII grossly intact. ABSENT: motor sensory deficit Psychiatric exam: PRESENT: appropriate affect, normal mood. ABSENT: homicidal ideation, suicidal ideation Skin exam: PRESENT: dry, intact, warm. ABSENT: cyanosis, rash Results Laboratory Results: 01/06/20 04:10 01/06/20 04:10 Impressions: Chest X-Ray 01/05/20 00:00 IMPRESSION: NO ACUTE FINDINGS. Assessment & Plan - Diagnosis (1) Sickle cell crisis Is this a current diagnosis for this admission?: Yes Plan: Still with considerable crisis, continue with hydration and other supportive care, increase Dilaudid today. 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 - Time Time Spent with patient: 35 or more minutes
[2020-01-07] MEDS: HYDROXYUREA 500 MG CAPSULE PO SCH ×2 (08:44→22:22)
[2020-01-07] MEDS: FOLIC ACID 1 MG TABLET PO SCH (10:05)
[2020-01-07] MEDS: CITALOPRAM HYDROBROMIDE 20 MG TABLET PO SCH ×2 (10:05→21:45)
[2020-01-07] MEDS: DOCUSATE SODIUM 100 MG CAPSULE PO SCH (10:05)
[2020-01-07] MEDS: PREGABALIN 100 MG CAPSULE PO SCH ×3 (10:05→17:03)
[2020-01-07] MEDS: BUSPIRONE HCL 10 MG TABLET PO SCH ×2 (10:05→19:25)
[2020-01-07] MEDS: ENOXAPARIN SODIUM INJ 40 MG/0.4 ML DISP.SYRIN SUBCUT SCH (10:10)
--- NOTE | 2020-01-07 17:59 | PDOC PROGRESS REPORT ---
Subjective Progress Note for:: 01/07/20 Subjective:: CASSANDRA MIDDLETON is a 24 year old female with a past medical history of sickle cell anemia, Acute chest syndrome, DVT, opiate dependent chronic pain, depression and anxiety who was admitted 01/05/2020 with sickle cell crisis pain. Patient is seen on morning rounds. She is found resting in bed, comfortably, on room air. She reports persistent back and right leg pain. Primary complaint today is the hospital food; wants to speak with the nurse about it. She admits to being rather sedentary; she is encouraged to continue ambulating and to continue wearing the supplemental oxygen even when not short of breath. Otherwise, she denies fever, chills, chest pain, palpitations, dyspnea, orthopnea, abdominal pain, nausea vomiting and diarrhea. She has no new questions or concerns. No concerns per nursing. Reason For Visit: SSC Physical Exam Vital Signs: Temp Pulse Resp BP Pulse Ox 97.9 F 97 20 119/64 90 L 01/07/20 15:09 01/07/20 15:09 01/07/20 15:09 01/07/20 15:09 01/07/20 15:09 Intake & Output 01/06/20 01/07/20 01/08/20 06:59 06:59 06:59 Intake Total 3600 3680 2120 Balance 3600 3680 2120 Weight 98.9 kg 98.2 kg General appearance: PRESENT: no acute distress, cooperative, obese, well- developed, well-nourished Head exam: PRESENT: atraumatic, normocephalic Eye exam: PRESENT: conjunctiva pink, EOMI, PERRLA. ABSENT: scleral icterus Mouth exam: PRESENT: moist, tongue midline Respiratory exam: PRESENT: clear to auscultation samaria, symmetrical, unlabored, other - room air. ABSENT: rales, rhonchi, wheezes Cardiovascular exam: PRESENT: RRR. ABSENT: diastolic murmur, rubs, systolic murmur Vascular exam: PRESENT: normal capillary refill Extremities exam: PRESENT: full ROM. ABSENT: calf tenderness, clubbing, pedal edema Neurological exam: PRESENT: alert, awake, oriented to person, oriented to place, oriented to time, oriented to situation, CN II-XII grossly intact. ABSENT: motor sensory deficit Psychiatric exam: PRESENT: appropriate affect, normal mood. ABSENT: homicidal ideation, suicidal ideation Skin exam: PRESENT: dry, intact, warm. ABSENT: cyanosis, rash Results Laboratory Results: 01/06/20 04:10 01/06/20 04:10 Impressions: Chest X-Ray 01/05/20 00:00 IMPRESSION: NO ACUTE FINDINGS. Assessment and Plan - Diagnosis (1) Sickle cell pain crisis Is this a current diagnosis for this admission?: Yes Plan: Patient is admitted after multiple ED visits for uncontrolled pain despite home interventions. Recently travelled from [place]. No recent illnesses. Reviewed the controlled substance database. Patient has been routinely prescribed Dilaudid 2 mg tabs #120 on a near monthly basis and Lyrica 100 mg tabs #45. In the ED, patient was provided IVF, Dilaudid and Benadryl with modest improvement in pain. She is admitted to the medical floor. We will continue generous IV fluids. Continue supplemental oxygen at 2 L/min. Hydroxyurea 1000 mg daily. Folic acid 1 mg daily. Hematology is consulted; will defer further pain medication management to their expertise. IV Benadryl and Zofran as needed for symptom management. Heating pad. Encourage ambulation (2) Sickle cell anemia Qualifiers: Sickle-cell associated disorders: with unspecified crisis Qualified Code(s): D57.00 - Hb-SS disease with crisis, unspecified; D57.0 - Hb-SS disease with crisis Is this a current diagnosis for this admission?: Yes Plan: Hemoglobin 9.9. Retic count 0.167. Continue daily folic acid. Daily CBC. Hematology consulted. (3) Back pain Qualifiers: Back pain location: low back pain Chronicity: unspecified Back pain laterality: bilateral Sciatica presence: without sciatica Qualified Code(s): M54.5 - Low back pain Is this a current diagnosis for this admission?: Yes Plan: Secondary to #1. Evaluation management as above. (4) Thrombocytosis Is this a current diagnosis for this admission?: Yes Plan: PLT 484-> 402 Continue aggressive IV fluid resuscitation. Lovenox for DVT prophylaxis; patient does have a history of DVT. Hematology is consulted. (5) Depression with anxiety Is this a current diagnosis for this admission?: Yes Plan: We will continue the patient's home dose Celexa and BuSpar. (6) Elevated bilirubin Is this a current diagnosis for this admission?: Yes Plan: Chronic. Total bili 6.2. Appears baseline is 4-5. AST 38, ALT 18, alk phos 78. Continue IV fluids. Periodic LFTs. - Time Time Spent with patient: 15-24 minutes Medications reviewed and adjusted accordingly: Yes Anticipated Discharge Disposition: Home, Self Care Anticipated Discharge Timeframe: undetermined
[2020-01-07] MEDS: TRAZODONE HCL 50 MG TABLET PO SCH (21:45)
[2020-01-08] MEDS: HYDROMORPHONE HCL INJ/PF 2 MG/ML AMPULE IV PRN ×10 (00:12→22:34)
[2020-01-08] MEDS: DIPHENHYDRAMINE HCL 50 MG/ML VIAL IV PRN ×4 (00:12→17:40)
[2020-01-08] MEDS: NORMAL SALINE 1000 ML 1,000 ML IV PRN ×2 (05:40→12:16)
[2020-01-08 06:38] LABS: HEMATOCRIT 22.3 % (36.0-47.0); MEAN CORPUSCULAR HEMOGLOBIN 33.2 pg (27.0-33.4); MEAN CORPUSCULAR HGB CONC 35.9 g/dL (32.0-36.0); MEAN CORPUSCULAR VOLUME 93 fl (80-97); PLATELET COUNT 350 10^3/uL (150-450); RED BLOOD COUNT 2.42 10^6/uL (3.72-5.28); RED CELL DISTRIBUTION WIDTH 22.6 % (11.5-14.0)
[2020-01-08 06:39] LABS: ALBUMIN 3.7 g/dL (3.5-5.0); ALKALINE PHOSPHATASE 59 U/L (38-126); ANION GAP 8 (5-19); ASPARTATE AMINO TRANSFERASE 34 U/L (14-36); BILIRUBIN,DIRECT 0.8 mg/dL (0.0-0.4); BILIRUBIN,TOTAL 7.4 mg/dL (0.2-1.3); BLOOD UREA NITROGEN 2 mg/dL (7-20); CALCIUM 8.4 mg/dL (8.4-10.2); CARBON DIOXIDE 28 mmol/L (22-30); CHLORIDE 102 mmol/L (98-107); GLUCOSE 103 mg/dL (75-110); TOTAL PROTEIN 6.3 g/dL (6.3-8.2)
[2020-01-08 07:24] LABS: ABSOLUTE LYMPHOCYTES# (MANUAL) 3.5 10^3/uL (0.5-4.7); ABSOLUTE MONOCYTES # (MANUAL) 0.4 10^3/uL (0.1-1.4); BASOPHILS % (MANUAL) 0 % (0-2); EOSINOPHILS % (MANUAL) 0 % (0-6); LYMPHOCYTES % (MANUAL) 25 % (13-45); MONOCYTES % (MANUAL) 3 % (3-13); SEGMENTED NEUTROPHILS % (MAN) 72 % (42-78); TOTAL CELLS COUNTED 100
[2020-01-08 07:31] LABS: ANISOCYTOSIS 3+; PLATELET COMMENT ADEQUATE; POIKILOCYTOSIS 2+; POLYCHROMASIA 1+; SICKLE RED CELLS 1+; TARGET CELLS 1+; TOXIC GRANULATION 1+; TOXIC VACUOLATION PRESENT
[2020-01-08] MEDS: HYDROXYUREA 500 MG CAPSULE PO SCH ×2 (08:06→22:34)
--- NOTE | 2020-01-08 09:42 | RADIOLOGY REPORT (SQ) ---
EXAM DESCRIPTION: CHEST 2 VIEWS IMAGES COMPLETED DATE/TIME: 01/08/2020 9:24 am REASON FOR STUDY: hypoxia, leukocytosis, SSC COMPARISON: 01/05/2020 EXAM PARAMETERS: NUMBER OF VIEWS: two views TECHNIQUE: Digital Frontal and Lateral radiographic views of the chest acquired. RADIATION DOSE: NA LIMITATIONS: none FINDINGS: LUNGS AND PLEURA: No opacities, masses or pneumothorax. No pleural effusion. MEDIASTINUM AND HILAR STRUCTURES: No masses or contour abnormalities. HEART AND VASCULAR STRUCTURES: Heart normal size. No evidence for failure. BONES: No acute findings. HARDWARE: Venous access catheter unchanged. OTHER: No other significant finding. IMPRESSION: NO ACUTE RADIOGRAPHIC FINDING IN THE CHEST. TECHNICAL DOCUMENTATION: JOB ID: [id number] 2010 [employer]- All Rights Reserved Reading location - IP/workstation name: [email or web address]
[2020-01-08] MEDS: BUSPIRONE HCL 10 MG TABLET PO SCH ×2 (10:30→17:39)
[2020-01-08] MEDS: PREGABALIN 100 MG CAPSULE PO SCH ×3 (10:30→17:38)
[2020-01-08] MEDS: CITALOPRAM HYDROBROMIDE 20 MG TABLET PO SCH ×2 (10:30→22:34)
[2020-01-08] MEDS: FOLIC ACID 1 MG TABLET PO SCH (10:31)
[2020-01-08] MEDS: DOCUSATE SODIUM 100 MG CAPSULE PO SCH (10:31)
[2020-01-08] MEDS: ENOXAPARIN SODIUM INJ 40 MG/0.4 ML DISP.SYRIN SUBCUT SCH (10:31)
--- NOTE | 2020-01-08 12:10 | PDOC PROGRESS REPORT ---
Subjective Progress Note for:: 01/08/20 Subjective:: CASSANDRA MIDDLETON is a 24 year old female with a past medical history of sickle cell anemia, Acute chest syndrome, DVT, opiate dependent chronic pain, depression and anxiety who was admitted 01/05/2020 with sickle cell crisis pain. Patient is seen on morning rounds. She is found resting in bed, comfortably, on room air. She reports persistent back and right leg pain. Some shortness of breath today, but denies chest pain and cough. Further denies fever, chills, chest pain, palpitations, dyspnea, orthopnea, abdominal pain, nausea vomiting and diarrhea. Does report some urinary hesitancy but without dysuria, frequency, urgency. She has no new questions or concerns. No concerns per nursing. Reason For Visit: [facility] [place] [facility] [place] Exam Vital Signs: Temp Pulse Resp BP Pulse Ox 98.1 F 94 16 102/60 96 01/08/20 11:19 01/08/20 11:19 01/08/20 11:19 01/08/20 11:19 01/08/20 11:19 Intake & Output 01/07/20 01/08/20 01/09/20 06:59 06:59 06:59 Intake Total 3680 4403 Balance 3680 4403 Weight 98.2 kg 95.8 kg General appearance: PRESENT: no acute distress, cooperative, obese, well- developed, well-nourished Head exam: PRESENT: atraumatic, normocephalic Eye exam: PRESENT: conjunctiva pink, EOMI, PERRLA. ABSENT: scleral icterus Mouth exam: PRESENT: moist, tongue midline Respiratory exam: PRESENT: clear to auscultation samaria, symmetrical, unlabored. ABSENT: rales, rhonchi, wheezes Cardiovascular exam: PRESENT: RRR. ABSENT: diastolic murmur, rubs, systolic murmur Vascular exam: PRESENT: normal capillary refill Extremities exam: PRESENT: full ROM. ABSENT: calf tenderness, clubbing, pedal edema Musculoskeletal exam: PRESENT: ambulatory Neurological exam: PRESENT: alert, awake, oriented to person, oriented to place, oriented to time, oriented to situation, CN II-XII grossly intact. ABSENT: motor sensory deficit Psychiatric exam: PRESENT: appropriate affect, normal mood. ABSENT: homicidal ideation, suicidal ideation Skin exam: PRESENT: dry, intact, warm. ABSENT: cyanosis, rash Results Laboratory Results: 01/08/20 05:40 01/08/20 05:40 01/08/20 01/08/20 05:40 05:40 WBC 14.0 H RBC 2.42 L Hgb 8.0 L Hct 22.3 L MCV 93 MCH 33.2 MCHC 35.9 RDW 22.6 H Plt Count 350 Seg Neutrophils % Not Reportable Sodium 138.2 Potassium 4.0 Chloride 102 Carbon Dioxide 28 Anion Gap 8 BUN 2 L Creatinine 0.45 L Est GFR ( Amer) > 60 Glucose 103 Calcium 8.4 Total Bilirubin 7.4 H AST 34 Alkaline Phosphatase 59 Total Protein 6.3 Albumin 3.7 Impressions: Chest X-Ray 01/08/20 00:00 IMPRESSION: NO ACUTE RADIOGRAPHIC FINDING IN THE CHEST. Assessment and Plan - Diagnosis (1) Sickle cell pain crisis Is this a current diagnosis for this admission?: Yes Plan: Patient is admitted after multiple ED visits for uncontrolled pain despite home interventions. Recently travelled from [place]. No recent illnesses. In the ED, patient was provided IVF, Dilaudid and Benadryl with modest improvement in pain. CXR is negative. Repeat is benign She is admitted to the medical floor. We will continue generous IV fluids. Continue supplemental oxygen at 2 L/min. Hydroxyurea 1000 mg daily. Folic acid 1 mg daily. Hematology is consulted; will defer further pain medication management to their expertise. IV Benadryl and Zofran as needed for symptom management. Heating pad. Encourage ambulation (2) Sickle cell anemia Qualifiers: Sickle-cell associated disorders: with unspecified crisis Qualified Code(s): D57.00 - Hb-SS disease with crisis, unspecified; D57.0 - Hb-SS disease with crisis Is this a current diagnosis for this admission?: Yes Plan: Hemoglobin 9.9-> 8.0. In part due to hemodilution. Retic count 0.167. Continue daily folic acid. Hematology consulted. (3) Back pain Qualifiers: Back pain location: low back pain Chronicity: unspecified Back pain laterality: bilateral Sciatica presence: without sciatica Qualified Code(s): M54.5 - Low back pain Is this a current diagnosis for this admission?: Yes Plan: Secondary to #1. Evaluation management as above. (4) Thrombocytosis Is this a current diagnosis for this admission?: Yes Plan: PLT 484-> 402-> 350 Continue aggressive IV fluid resuscitation. Lovenox for DVT prophylaxis; patient does have a history of DVT. Hematology is consulted. (5) Depression with anxiety Is this a current diagnosis for this admission?: Yes Plan: We will continue the patient's home dose Celexa and BuSpar. (6) Elevated bilirubin Is this a current diagnosis for this admission?: Yes Plan: Chronic. Total bili 6.2-> 7.4. Appears baseline is 4-5. Continue IV fluids. Periodic LFTs. (7) Leukocytosis Qualifiers: Leukocytosis type: unspecified Qualified Code(s): D72.829 - Elevated white blood cell count, unspecified Is this a current diagnosis for this admission?: Yes Plan: Unclear etiology. Patient denies symptoms to indicate infectious process. Repeat chest x-ray benign. Repeat urinalysis pending. - Time Time Spent with patient: 25-34 minutes Medications reviewed and adjusted accordingly: Yes Anticipated Discharge Disposition: Home, Self Care Anticipated Discharge Timeframe: undetermined
[2020-01-08] MEDS: ACETAMINOPHEN 325 MG TABLET PO PRN (12:49)
--- NOTE | 2020-01-08 13:10 | PDOC PROGRESS REPORT ---
Subjective Progress Note for:: 01/08/20 Subjective:: Patient states that pain continues. No new complaints. Reason For Visit: [facility] Physical Exam Vital Signs: Temp Pulse Resp BP Pulse Ox 98.1 F 94 16 102/60 96 01/08/20 11:19 01/08/20 11:19 01/08/20 11:19 01/08/20 11:19 01/08/20 11:19 Intake & Output 01/07/20 01/08/20 01/09/20 06:59 06:59 06:59 Intake Total 3680 4403 990 Balance 3680 4403 990 Weight 98.2 kg 95.8 kg General appearance: PRESENT: no acute distress Head exam: PRESENT: normocephalic Respiratory exam: PRESENT: unlabored Musculoskeletal exam: PRESENT: normal inspection Neurological exam: PRESENT: alert, awake Psychiatric exam: PRESENT: appropriate affect Skin exam: PRESENT: normal color Results Laboratory Results: 01/08/20 05:40 01/08/20 05:40 01/08/20 01/08/20 05:40 05:40 WBC 14.0 H RBC 2.42 L Hgb 8.0 L Hct 22.3 L MCV 93 MCH 33.2 MCHC 35.9 RDW 22.6 H Plt Count 350 Seg Neutrophils % Not Reportable Sodium 138.2 Potassium 4.0 Chloride 102 Carbon Dioxide 28 Anion Gap 8 BUN 2 L Creatinine 0.45 L Est GFR ( Amer) > 60 Glucose 103 Calcium 8.4 Total Bilirubin 7.4 H AST 34 Alkaline Phosphatase 59 Total Protein 6.3 Albumin 3.7 Impressions: Chest X-Ray 01/08/20 00:00 IMPRESSION: NO ACUTE RADIOGRAPHIC FINDING IN THE CHEST. Assessment & Plan - Diagnosis (1) Sickle cell crisis Is this a current diagnosis for this admission?: Yes Plan: Continue current treatment. No changes today. Encouraged good nutrition and ambulation in [place]. - Time Time Spent with patient: Less than 15 minutes
[2020-01-08 19:37] LABS: APPEARANCE,URINE SLIGHTLY-CLOUDY; BILIRUBIN,URINE NEGATIVE (NEGATIVE); COLOR,URINE YELLOW; GLUCOSE, URINE NEGATIVE (NEGATIVE); KETONES,URINE NEGATIVE (NEGATIVE); PROTEIN,URINE NEGATIVE (NEGATIVE); URINE SPECIFIC GRAVITY 1.011
[2020-01-08] MEDS: TRAZODONE HCL 50 MG TABLET PO SCH (22:34)
[2020-01-09] MEDS: DIPHENHYDRAMINE HCL 50 MG/ML VIAL IV PRN ×4 (01:06→20:33)
[2020-01-09] MEDS: HYDROMORPHONE HCL INJ/PF 2 MG/ML AMPULE IV PRN ×11 (01:06→22:31)
[2020-01-09] MEDS: NORMAL SALINE 1000 ML 1,000 ML IV PRN ×4 (01:07→22:31)
[2020-01-09 07:08] LABS: ANION GAP 5 (5-19); CALCIUM 8.1 mg/dL (8.4-10.2); CARBON DIOXIDE 28 mmol/L (22-30); CHLORIDE 106 mmol/L (98-107); GLUCOSE 82 mg/dL (75-110); POTASSIUM 3.8 mmol/L (3.6-5.0)
[2020-01-09 07:11] LABS: BLOOD UREA NITROGEN < 2 mg/dL (7-20)
[2020-01-09] MEDS: HYDROXYUREA 500 MG CAPSULE PO SCH ×2 (08:36→22:31)
[2020-01-09] MEDS: BUSPIRONE HCL 10 MG TABLET PO SCH ×2 (10:44→18:39)
[2020-01-09] MEDS: FOLIC ACID 1 MG TABLET PO SCH (10:44)
[2020-01-09] MEDS: CITALOPRAM HYDROBROMIDE 20 MG TABLET PO SCH ×2 (10:44→22:31)
[2020-01-09] MEDS: ENOXAPARIN SODIUM INJ 40 MG/0.4 ML DISP.SYRIN SUBCUT SCH (10:45)
[2020-01-09] MEDS: DOCUSATE SODIUM 100 MG CAPSULE PO SCH (10:45)
[2020-01-09] MEDS: PREGABALIN 100 MG CAPSULE PO SCH ×3 (10:45→18:06)
--- NOTE | 2020-01-09 16:42 | PDOC PROGRESS REPORT ---
Subjective Progress Note for:: 01/09/20 Subjective:: CASSANDRA MIDDLETON is a 24 year old female with a past medical history of sickle cell anemia, Acute chest syndrome, DVT, opiate dependent chronic pain, depression and anxiety who was admitted 01/05/2020 with sickle cell crisis pain. Patient is seen on morning rounds. She is found resting in bed, comfortably, on room air. She is, again, reminded to wear the oxygen. Patient's room was also found to be quiet cold; temperature adjusted (thermostat changed from 60 to 70). She reports persistent back and right leg pain. Has not been ambulatory in the halls. She denies fever, chills, chest pain, palpitations, dyspnea, orthopnea, abdominal pain, nausea vomiting and diarrhea. Does report some urinary hesitancy but without dysuria, frequency, urgency. Unchanged from yesterday. She has no new questions or concerns. No concerns per nursing. Reason For Visit: [facility] Physical Exam Vital Signs: Temp Pulse Resp BP Pulse Ox 98.8 F 95 16 116/67 95 01/09/20 15:15 01/09/20 15:15 01/09/20 15:15 01/09/20 15:15 01/09/20 15:15 Intake & Output 01/08/20 01/09/20 01/10/20 06:59 06:59 06:59 Intake Total 4403 1989 1999 Balance 4403 1989 1999 Weight 95.8 kg 99 kg General appearance: PRESENT: no acute distress, cooperative, obese, well- developed, well-nourished Head exam: PRESENT: atraumatic, normocephalic Eye exam: PRESENT: conjunctiva pink, EOMI, PERRLA. ABSENT: scleral icterus Mouth exam: PRESENT: moist, tongue midline Respiratory exam: PRESENT: clear to auscultation samaria, symmetrical, unlabored, other - room air. ABSENT: rales, rhonchi, wheezes Cardiovascular exam: PRESENT: RRR. ABSENT: diastolic murmur, rubs, systolic murmur Vascular exam: PRESENT: normal capillary refill Extremities exam: PRESENT: full ROM. ABSENT: calf tenderness, clubbing, pedal edema Musculoskeletal exam: PRESENT: ambulatory Neurological exam: PRESENT: alert, awake, oriented to person, oriented to place, oriented to time, oriented to situation, CN II-XII grossly intact. ABSENT: motor sensory deficit Psychiatric exam: PRESENT: appropriate affect, normal mood. ABSENT: homicidal ideation, suicidal ideation Skin exam: PRESENT: dry, intact, warm. ABSENT: cyanosis, rash Results Laboratory Results: 01/08/20 05:40 01/09/20 06:35 01/08/20 01/09/20 15:45 06:35 Sodium 139.1 Potassium 3.8 Chloride 106 Carbon Dioxide 28 Anion Gap 5 BUN < 2 L Creatinine 0.44 L Est GFR ( Amer) > 60 Glucose 82 Calcium 8.1 L Urine Color YELLOW Urine Appearance SLIGHTLY-CLOUDY Urine pH 6.0 Ur Specific Bowden 1.011 Urine Protein NEGATIVE Urine Glucose (UA) NEGATIVE Urine Ketones NEGATIVE Urine Blood NEGATIVE Urine RBC (Auto) 1 Impressions: Chest X-Ray 01/08/20 00:00 IMPRESSION: NO ACUTE RADIOGRAPHIC FINDING IN THE CHEST. Assessment and Plan - Diagnosis (1) Sickle cell pain crisis Is this a current diagnosis for this admission?: Yes Plan: Patient is admitted after multiple ED visits for uncontrolled pain despite home interventions. Recently travelled from [place]. No recent illnesses. In the ED, patient was provided IVF, Dilaudid and Benadryl with modest improvement in pain. CXR is negative. Repeat UA is benign She is admitted to the medical floor. We will continue generous IV fluids. Continue supplemental oxygen at 2 L/min. Hydroxyurea 1000 mg daily. Folic acid 1 mg daily. Hematology is consulted; will defer further pain medication management to their expertise. IV Benadryl and Zofran as needed for symptom management. Heating pad. Encourage ambulation No changes to treatment plan today. (2) Sickle cell anemia Qualifiers: Sickle-cell associated disorders: with unspecified crisis Qualified Code(s) : D57.00 - Hb-SS disease with crisis, unspecified; D57.0 - Hb-SS disease with crisis Is this a current diagnosis for this admission?: Yes Plan: Hemoglobin 9.9-> 8.0. In part due to hemodilution. Retic count 0.167. Continue daily folic acid. Hematology consulted. (3) Back pain Qualifiers: Back pain location: low back pain Chronicity: unspecified Back pain laterality: bilateral Sciatica presence: without sciatica Qualified Code(s): M54.5 - Low back pain Is this a current diagnosis for this admission?: Yes Plan: Secondary to #1. Evaluation management as above. (4) Depression with anxiety Is this a current diagnosis for this admission?: Yes Plan: We will continue the patient's home dose Celexa and BuSpar. (5) Elevated bilirubin Is this a current diagnosis for this admission?: Yes Plan: Chronic. Total bili 6.2-> 7.4. Appears baseline is 4-5. Continue IV fluids. Periodic LFTs. (6) Leukocytosis Qualifiers: Leukocytosis type: unspecified Qualified Code(s): D72.829 - Elevated white blood cell count, unspecified Is this a current diagnosis for this admission?: Yes Plan: Unclear etiology; likely acute inflammatory reaction. Patient denies symptoms to indicate infectious process. Repeat chest x-ray benign. Repeat urinalysis negative. No indications for antibiotics at this time. (7) Thrombocytosis Is this a current diagnosis for this admission?: Yes Plan: Resolved. PLT 484-> 402-> 350 Continue aggressive IV fluid resuscitation. Lovenox for DVT prophylaxis; patient does have a history of DVT. Hematology is consulted. - Time Time Spent with patient: 15-24 minutes Medications reviewed and adjusted accordingly: Yes Anticipated Discharge Disposition: Home, Self Care Anticipated Discharge Timeframe: undetermined
[2020-01-09] MEDS: TRAZODONE HCL 50 MG TABLET PO SCH (22:31)
[2020-01-10] MEDS: HYDROMORPHONE HCL INJ/PF 2 MG/ML AMPULE IV PRN ×11 (00:48→23:34)
[2020-01-10] MEDS: DIPHENHYDRAMINE HCL 50 MG/ML VIAL IV PRN ×3 (02:57→18:10)
[2020-01-10] MEDS: NORMAL SALINE 1000 ML 1,000 ML IV PRN ×3 (04:56→22:49)
[2020-01-10 06:32] LABS: HEMATOCRIT 19.5 % (36.0-47.0); MEAN CORPUSCULAR HEMOGLOBIN 32.9 pg (27.0-33.4); MEAN CORPUSCULAR VOLUME 92 fl (80-97); PLATELET COUNT 310 10^3/uL (150-450); RED BLOOD COUNT 2.14 10^6/uL (3.72-5.28)
[2020-01-10 07:18] LABS: WHITE BLOOD COUNT 8.6 10^3/uL (4.0-10.5)
[2020-01-10] MEDS ORDERED: NORMAL SALINE 250 ML IV PRN ×2 (08:09)
--- NOTE | 2020-01-10 08:42 | PDOC PROGRESS REPORT ---
Subjective Progress Note for:: 01/10/20 Subjective:: Patient still in significant pain today. No change. However, she reports that her bowels are moving fine. No dyspnea. She is concerned that her O2 sats are decreasing when O2 is removed. This is not typical for her. Reason For Visit: [facility] [place] Physical Exam Vital Signs: Temp Pulse Resp BP Pulse Ox 98.3 F 109 H 18 119/52 L 93 01/09/20 23:20 01/09/20 23:20 01/09/20 23:20 01/09/20 23:20 01/09/20 23:20 Intake & Output 01/09/20 01/10/20 01/11/20 06:59 06:59 06:59 Intake Total 1989 4363 Balance 1989 4363 Weight 99 kg 101.2 kg General appearance: PRESENT: no acute distress Head exam: PRESENT: normocephalic Eye exam: PRESENT: EOMI Respiratory exam: PRESENT: unlabored Musculoskeletal exam: PRESENT: normal inspection Neurological exam: PRESENT: alert, awake Psychiatric exam: PRESENT: appropriate affect Skin exam: PRESENT: normal color Results Laboratory Results: 01/10/20 06:05 01/09/20 06:35 01/10/20 06:05 WBC 8.6 RBC 2.14 L Hgb 7.0 L Hct 19.5 L MCV 92 MCH 32.9 MCHC 36.0 RDW 21.0 H Plt Count 310 Impressions: Chest X-Ray 01/08/20 00:00 IMPRESSION: NO ACUTE RADIOGRAPHIC FINDING IN THE CHEST. Assessment & Plan - Diagnosis (1) Sickle cell crisis Is this a current diagnosis for this admission?: Yes Plan: Continue medications without changes. I have encouraged her to continue to wear her O2. I do not see any documented periods of hypoxia. May need to evaluate this prior to admission. Although PE risk is high in sickle cell patients, I see no other symptoms of this. She is on DVT prophylaxis. - Time Time Spent with patient: Less than 15 minutes
[2020-01-10] MEDS: PREGABALIN 100 MG CAPSULE PO SCH ×4 (09:14→18:35)
[2020-01-10] MEDS: DOCUSATE SODIUM 100 MG CAPSULE PO SCH (09:14)
[2020-01-10] MEDS: CITALOPRAM HYDROBROMIDE 20 MG TABLET PO SCH ×2 (09:15→22:45)
[2020-01-10] MEDS: BUSPIRONE HCL 10 MG TABLET PO SCH ×2 (09:15→18:11)
[2020-01-10] MEDS: FOLIC ACID 1 MG TABLET PO SCH (09:15)
[2020-01-10] MEDS: HYDROXYUREA 500 MG CAPSULE PO SCH ×2 (09:15→22:45)
[2020-01-10] MEDS: ENOXAPARIN SODIUM INJ 40 MG/0.4 ML DISP.SYRIN SUBCUT SCH (09:16)
[2020-01-10] MEDS: ACETAMINOPHEN 325 MG TABLET PO PRN (13:18)
--- NOTE | 2020-01-10 19:06 | PDOC PROGRESS REPORT ---
Subjective Progress Note for:: 01/10/20 Subjective:: CASSANDRA MIDDLETON is a 24 year old female with a past medical history of sickle cell anemia, Acute chest syndrome, DVT, opiate dependent chronic pain, depression and anxiety who was admitted 01/05/2020 with sickle cell crisis pain. Patient is seen on morning rounds. She is found resting in bed, comfortably, on room air. She is, again, reminded to wear the oxygen. States that she "forgets to put it back on after returning from bathroom;" noted to be on a 30' cannula corrd. Again, patient's room was found to be quiet cold; temperature adjusted (thermostat changed from 60 to 70). She reports persistent back and right leg pain. Per nursing, she has been ambulating in the halls. She denies fever, chills, chest pain, palpitations, dyspnea, orthopnea, abdominal pain, nausea vomiting and diarrhea. She has no new questions or concerns. No concerns per nursing. Reason For Visit: [facility] Physical Exam Vital Signs: Temp Pulse Resp BP Pulse Ox 98.0 F 77 18 122/68 96 01/10/20 15:24 01/10/20 15:24 01/10/20 15:24 01/10/20 15:24 01/10/20 15:24 Intake & Output 01/09/20 01/10/20 01/11/20 06:59 06:59 06:59 Intake Total 1989 4363 1300 Balance 1989 4363 1300 Weight 99 kg 101.2 kg General appearance: PRESENT: no acute distress, morbidly obese, well-developed, well-nourished Head exam: PRESENT: atraumatic, normocephalic Eye exam: PRESENT: conjunctiva pink, EOMI, PERRLA. ABSENT: scleral icterus Mouth exam: PRESENT: moist, tongue midline Respiratory exam: PRESENT: clear to auscultation samaria, symmetrical, unlabored. ABSENT: rales, rhonchi, wheezes Cardiovascular exam: PRESENT: RRR. ABSENT: diastolic murmur, rubs, systolic murmur Vascular exam: PRESENT: normal capillary refill Extremities exam: PRESENT: full ROM. ABSENT: calf tenderness, clubbing, pedal edema Musculoskeletal exam: PRESENT: ambulatory Neurological exam: PRESENT: alert, awake, oriented to person, oriented to place, oriented to time, oriented to situation, CN II-XII grossly intact. ABSENT: motor sensory deficit Psychiatric exam: PRESENT: appropriate affect, normal mood. ABSENT: homicidal ideation, suicidal ideation Skin exam: PRESENT: dry, intact, warm. ABSENT: cyanosis, rash Results Laboratory Results: 01/10/20 06:05 01/09/20 06:35 01/10/20 01/10/20 06:05 10:10 WBC 8.6 RBC 2.14 L Hgb 7.0 L Hct 19.5 L MCV 92 MCH 32.9 MCHC 36.0 RDW 21.0 H Plt Count 310 Blood Type O POSITIVE Antibody Screen NEGATIVE Impressions: Chest X-Ray 01/08/20 00:00 IMPRESSION: NO ACUTE RADIOGRAPHIC FINDING IN THE CHEST. Assessment and Plan - Diagnosis (1) Sickle cell pain crisis Is this a current diagnosis for this admission?: Yes Plan: Patient is admitted after multiple ED visits for uncontrolled pain despite home interventions. Recently travelled from [place]. No recent illnesses. In the ED, patient was provided IVF, Dilaudid and Benadryl with modest improvement in pain. CXR is negative. Repeat UA is benign She is admitted to the medical floor. We will continue generous IV fluids. Continue supplemental oxygen at 2 L/min. Hydroxyurea 1000 mg daily. Folic acid 1 mg daily. Hematology is consulted; will defer further pain medication management to their expertise. IV Benadryl and Zofran as needed for symptom management. Heating pad. Encourage ambulation No changes to treatment plan today. (2) Sickle cell anemia Qualifiers: Sickle-cell associated disorders: with unspecified crisis Qualified Code(s): D57.00 - Hb-SS disease with crisis, unspecified; D57.0 - Hb-SS disease with crisis Is this a current diagnosis for this admission?: Yes Plan: Hemoglobin 9.9-> 8.0-> 7.0. In part due to hemodilution. Retic count 0.167. Transfuse 1 unit PRBC today. Continue daily folic acid. Hematology consulted. (3) Back pain Qualifiers: Back pain location: low back pain Chronicity: unspecified Back pain laterality: bilateral Sciatica presence: without sciatica Qualified Code(s): M54.5 - Low back pain Is this a current diagnosis for this admission?: Yes Plan: Secondary to #1. Evaluation management as above. (4) Depression with anxiety Is this a current diagnosis for this admission?: Yes Plan: We will continue the patient's home dose Celexa and BuSpar. (5) Elevated bilirubin Is this a current diagnosis for this admission?: Yes Plan: Chronic. Total bili 6.2-> 7.4. Appears baseline is 4-5. Continue IV fluids. Periodic LFTs. (6) Leukocytosis Qualifiers: Leukocytosis type: unspecified Qualified Code(s): D72.829 - Elevated white blood cell count, unspecified Is this a current diagnosis for this admission?: Yes Plan: Resolved Unclear etiology; likely acute inflammatory reaction. Patient denies symptoms to indicate infectious process. Repeat chest x-ray benign. Repeat urinalysis negative. No indications for antibiotics at this time. (7) Thrombocytosis Is this a current diagnosis for this admission?: Yes Plan: Resolved. PLT 484-> 402-> 350-> 310 Continue aggressive IV fluid resuscitation. Lovenox for DVT prophylaxis; patient does have a history of DVT. Hematology is consulted. - Time Time Spent with patient: 15-24 minutes Medications reviewed and adjusted accordingly: Yes Anticipated Discharge Disposition: Home, Self Care Anticipated Discharge Timeframe: undetermined
[2020-01-10 20:12] LABS: HEMATOCRIT 25.5 % (36.0-47.0); MEAN CORPUSCULAR HEMOGLOBIN 32.8 pg (27.0-33.4); MEAN CORPUSCULAR HGB CONC 35.4 g/dL (32.0-36.0); MEAN CORPUSCULAR VOLUME 93 fl (80-97); PLATELET COUNT 352 10^3/uL (150-450); RED BLOOD COUNT 2.75 10^6/uL (3.72-5.28); RED CELL DISTRIBUTION WIDTH 20.1 % (11.5-14.0); WHITE BLOOD COUNT 9.3 10^3/uL (4.0-10.5)
[2020-01-10 20:27] LABS: ABSOLUTE LYMPHOCYTES# (MANUAL) 2.1 10^3/uL (0.5-4.7); ABSOLUTE MONOCYTES # (MANUAL) 0.3 10^3/uL (0.1-1.4); BASOPHILS % (MANUAL) 0 % (0-2); EOSINOPHILS % (MANUAL) 3 % (0-6); LYMPHOCYTES % (MANUAL) 23 % (13-45); MONOCYTES % (MANUAL) 3 % (3-13); NUCLEATED RED BLOOD CELLS 50 /100 WBC (0); SEGMENTED NEUTROPHILS % (MAN) 71 % (42-78); TOTAL CELLS COUNTED 100
[2020-01-10 20:30] LABS: ANISOCYTOSIS 2+; POIKILOCYTOSIS 2+; POLYCHROMASIA 1+
[2020-01-10 20:31] LABS: PLATELET COMMENT ADEQUATE; SCHISTOCYTES 1+; TARGET CELLS 1+
[2020-01-10 20:32] LABS: SICKLE RED CELLS 1+; TEAR DROP CELLS SLIGHT
[2020-01-10] MEDS: TRAZODONE HCL 50 MG TABLET PO SCH (22:45)
[2020-01-11] MEDS: HYDROMORPHONE HCL INJ/PF 2 MG/ML AMPULE IV PRN ×8 (02:46→22:15)
[2020-01-11] MEDS: NORMAL SALINE 1000 ML 1,000 ML IV PRN ×2 (04:57→16:20)
--- NOTE | 2020-01-11 08:18 | PDOC PROGRESS REPORT ---
Subjective Progress Note for:: 01/11/20 Subjective:: No acute events overnight, still w/ considerable pain this am, feels SOB at times. She is drinking fluids so will cut down IVF today to 75/hr Reason For Visit: [facility] Physical Exam Vital Signs: Temp Pulse Resp BP Pulse Ox 98.2 F 71 17 122/67 93 01/11/20 04:00 01/11/20 04:00 01/11/20 04:00 01/11/20 04:00 01/11/20 04:00 Intake & Output 01/10/20 01/11/20 01/12/20 06:59 06:59 06:59 Intake Total 4363 5820 Output Total 900 Balance 4363 4920 Weight 101.2 kg 99 kg General appearance: PRESENT: no acute distress, well-developed, well-nourished Head exam: PRESENT: atraumatic, normocephalic Eye exam: PRESENT: conjunctiva pink, EOMI, PERRLA. ABSENT: scleral icterus Ear exam: PRESENT: normal external ear exam Mouth exam: PRESENT: moist, tongue midline Neck exam: ABSENT: carotid bruit, JVD, lymphadenopathy, thyromegaly Respiratory exam: PRESENT: clear to auscultation samaria. ABSENT: rales, rhonchi, wheezes Cardiovascular exam: PRESENT: RRR. ABSENT: diastolic murmur, rubs, systolic murmur Pulses: PRESENT: normal dorsalis pedis pul Vascular exam: PRESENT: normal capillary refill GI/Abdominal exam: PRESENT: normal bowel sounds, soft. ABSENT: distended, guarding, mass, organolmegaly, rebound, tenderness Rectal exam: PRESENT: deferred Extremities exam: PRESENT: full ROM. ABSENT: calf tenderness, clubbing, pedal edema Neurological exam: PRESENT: alert, awake, oriented to person, oriented to place, oriented to time, oriented to situation, CN II-XII grossly intact. ABSENT: motor sensory deficit Psychiatric exam: PRESENT: appropriate affect, normal mood. ABSENT: homicidal ideation, suicidal ideation Skin exam: PRESENT: dry, intact, warm. ABSENT: cyanosis, rash Results Laboratory Results: 01/10/20 19:28 01/09/20 06:35 01/10/20 01/10/20 10:10 19:28 WBC 9.3 RBC 2.75 L Hgb 9.0 L Hct 25.5 L MCV 93 MCH 32.8 MCHC 35.4 RDW 20.1 H Plt Count 352 Seg Neutrophils % Not Reportable Blood Type O POSITIVE Antibody Screen NEGATIVE Impressions: Chest X-Ray 01/08/20 00:00 IMPRESSION: NO ACUTE RADIOGRAPHIC FINDING IN THE CHEST. 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
[2020-01-11] MEDS: HYDROXYUREA 500 MG CAPSULE PO SCH ×2 (09:47→22:15)
[2020-01-11] MEDS: DOCUSATE SODIUM 100 MG CAPSULE PO SCH (09:47)
[2020-01-11] MEDS: CITALOPRAM HYDROBROMIDE 20 MG TABLET PO SCH ×2 (09:47→22:14)
[2020-01-11] MEDS: FOLIC ACID 1 MG TABLET PO SCH (09:48)
[2020-01-11] MEDS: BUSPIRONE HCL 10 MG TABLET PO SCH ×2 (09:48→19:07)
[2020-01-11] MEDS: PREGABALIN 100 MG CAPSULE PO SCH ×3 (09:52→19:35)
[2020-01-11] MEDS: ENOXAPARIN SODIUM INJ 40 MG/0.4 ML DISP.SYRIN SUBCUT SCH (09:52)
[2020-01-11] MEDS: DIPHENHYDRAMINE HCL 50 MG/ML VIAL IV PRN ×2 (10:14→19:45)
--- NOTE | 2020-01-11 14:12 | PDOC PROGRESS REPORT ---
Subjective Progress Note for:: 01/11/20 Subjective:: Patient seen on morning rounds. She is sitting at edge of bed with eating breakfast. 2L NC in place with O2 sat 100%. Pt's main concern today is continued back and right leg pain - this is typical for her when in a crisis. Her pain is appropriately controlled with her current pain regimen. She has been able to ambulate halls at least twice daily without difficulty. Upon questining she denies fever, chills, CP, SOB, palitations, abdominal pain, NVD. No further complaints or concerns at this time. No concerns per nursing. Reason For Visit: [facility] [place] Physical Exam Vital Signs: Temp Pulse Resp BP Pulse Ox 98.2 F 79 16 124/74 100 01/11/20 08:52 01/11/20 08:00 01/11/20 08:00 01/11/20 08:00 01/11/20 08:00 Intake & Output 01/10/20 01/11/20 01/12/20 06:59 06:59 06:59 Intake Total 4363 5820 Output Total 900 Balance 4363 4920 Weight 101.2 kg 99 kg General appearance: PRESENT: no acute distress, obese, well-developed, well- nourished Head exam: PRESENT: atraumatic, normocephalic Eye exam: PRESENT: conjunctiva pink, EOMI, PERRLA. ABSENT: scleral icterus Mouth exam: PRESENT: moist, tongue midline Neck exam: PRESENT: full ROM. ABSENT: tenderness Respiratory exam: PRESENT: clear to auscultation samaria, symmetrical, unlabored. ABSENT: chest wall tenderness, rales, rhonchi, tachypnea, wheezes Cardiovascular exam: PRESENT: RRR, +S1, +S2. ABSENT: diastolic murmur, systolic murmur, tachycardia Pulses: PRESENT: normal radial pulses Vascular exam: PRESENT: normal capillary refill GI/Abdominal exam: PRESENT: soft. ABSENT: distended, firm, guarding, rebound, tenderness Extremities exam: PRESENT: full ROM. ABSENT: calf tenderness, clubbing, joint swelling Musculoskeletal exam: PRESENT: ambulatory, full ROM. ABSENT: deformity, dislocation Neurological exam: PRESENT: alert, awake, oriented to person, oriented to place, oriented to time, oriented to situation, CN II-XII grossly intact. ABSENT: mot or sensory deficit Psychiatric exam: PRESENT: appropriate affect, normal mood Skin exam: PRESENT: dry, intact, warm. ABSENT: erythema Results Laboratory Results: 01/10/20 19:28 01/09/20 06:35 01/10/20 01/10/20 10:10 19:28 WBC 9.3 RBC 2.75 L Hgb 9.0 L Hct 25.5 L MCV 93 MCH 32.8 MCHC 35.4 RDW 20.1 H Plt Count 352 Seg Neutrophils % Not Reportable Blood Type O POSITIVE Antibody Screen NEGATIVE Impressions: Chest X-Ray 01/08/20 00:00 IMPRESSION: NO ACUTE RADIOGRAPHIC FINDING IN THE CHEST. Assessment and Plan - Diagnosis (1) Sickle cell pain crisis Is this a current diagnosis for this admission?: Yes (2) Sickle cell anemia Qualifiers: Sickle-cell associated disorders: with unspecified crisis Qualified Code(s): D57.00 - Hb-SS disease with crisis, unspecified; D57.0 - Hb-SS disease with crisis Is this a current diagnosis for this admission?: Yes (3) Thrombocytosis Is this a current diagnosis for this admission?: Yes (4) Back pain Qualifiers: Back pain location: low back pain Chronicity: unspecified Back pain laterality: bilateral Sciatica presence: without sciatica Qualified Code(s): M54.5 - Low back pain Is this a current diagnosis for this admission?: Yes (5) Depression with anxiety Is this a current diagnosis for this admission?: Yes (6) Elevated bilirubin Is this a current diagnosis for this admission?: Yes (7) Leukocytosis Qualifiers: Leukocytosis type: unspecified Qualified Code(s): D72.829 - Elevated white blood cell count, unspecified Is this a current diagnosis for this admission?: Yes - Plan Summary Summary: Ms. Joyner is a 24 year old female with PMHx of sickle cell anemia, acute chest syndrome, DVT, opiate dependent chronic pain, depression and anxiety. She was admitted on 01/05/2020 for inpatient evaluation and treatment of sickle cell crisis. Prior to admission pt seen in the ED on several occasions regarding continued pain despite home interventions. Evaluation in the ED with negative CXR and benign UA. Pt recently returned from [place] (on 12/06/2019) where she lived for several months. She deneis recent illness. Dr. Baum, hematology, consulted and on board; pain treatment regimen/management as advised. Sickle cell pain crisis Continue generous IV fluids. Monitor SCC labs including: Hgb, retic count, tbili, and plt count Currently on supplemental oxygen at 2 L/min via NC with O2 sat 100%. Consider weaning at this time. Hydroxyurea 1000 mg daily. Folic acid 1 mg daily. Hematology is consulted; will defer further pain medication management to their expertise. IV Benadryl and Zofran as needed for symptom management. Heating pad. Encouraged she continue with frequent ambulation Sickle cell anemia Hemoglobin 7.0 -> 9.0 s/p x1 unit PRBC 01/10/20 - Pt reports 6 total PRBC transfusions in 2020 thus far (Including transfusion 01/10/20) Retic count 5.63 -> Pending Continue daily folic acid. Hematology on board. Back pain Secondary to #1. Evaluation management as above. Depression with anxiety We will continue the patient's home dose Celexa and BuSpar. Elevated bilirubin Chronic. Appears baseline is 4-5 Total bili 6.2-> 7.4. -> Pending Continue to monitor, suspect will decrease as sickle cell crisis resolves Leukocytosis Resolved Unclear etiology; likely acute inflammatory reaction. Patient denies symptoms to indicate infectious process. Repeat chest x-ray benign. Repeat urinalysis negative. No indications for antibiotics at this time. Thrombocytosis Resolved. PLT 484-> 352 -> Pending Suspect secondary to current sickle cell crisis Lovenox for DVT prophylaxis; patient does have a history of DVT. Hematology is onboard Treatment otherwise as discussed above - Time Time Spent with patient: 15-24 minutes Medications reviewed and adjusted accordingly: Yes Anticipated Discharge Disposition: Home, Self Care Anticipated Discharge Timeframe: undetermined
[2020-01-11] MEDS: POLYETHYLENE GLYCOL 3350 POWDER 17 GM/1 PACKET PO PRN (19:45)
[2020-01-11] MEDS: TRAZODONE HCL 50 MG TABLET PO SCH (22:14)
[2020-01-11 23:14] LABS: ABSOLUTE RETICS # 0.388 10^6/uL (0.028-0.122)
[2020-01-11 23:16] LABS: HEMATOCRIT 24.6 % (36.0-47.0); HEMOGLOBIN 8.8 g/dL (12.0-15.5); MEAN CORPUSCULAR HEMOGLOBIN 33.6 pg (27.0-33.4); MEAN CORPUSCULAR HGB CONC 35.7 g/dL (32.0-36.0); MEAN CORPUSCULAR VOLUME 94 fl (80-97); PLATELET COUNT 330 10^3/uL (150-450); RED BLOOD COUNT 2.62 10^6/uL (3.72-5.28); RED CELL DISTRIBUTION WIDTH 22.4 % (11.5-14.0)
[2020-01-11 23:32] LABS: ANION GAP 9 (5-19); BILIRUBIN,DIRECT 1.5 mg/dL (0.0-0.4); BILIRUBIN,TOTAL 8.7 mg/dL (0.2-1.3); BLOOD UREA NITROGEN 2 mg/dL (7-20); CARBON DIOXIDE 27 mmol/L (22-30); CHLORIDE 104 mmol/L (98-107); GLUCOSE 99 mg/dL (75-110); POTASSIUM 3.7 mmol/L (3.6-5.0)
[2020-01-12 00:12] LABS: WHITE BLOOD COUNT 9.9 10^3/uL (4.0-10.5)
[2020-01-12] MEDS ORDERED: HYDROMORPHONE HCL INJ/PF 2 MG/ML AMPULE IV ONE (01:30)
[2020-01-12] MEDS ORDERED: HYDROMORPHONE HCL INJ/PF 2 MG/ML AMPULE ONE ×4 (01:31→08:28)
[2020-01-12] MEDS: HYDROMORPHONE HCL INJ/PF 2 MG/ML AMPULE IV PRN ×9 (03:59→22:31)
[2020-01-12] MEDS: NORMAL SALINE 1000 ML 1,000 ML IV PRN ×2 (06:53→19:57)
[2020-01-12] MEDS: DIPHENHYDRAMINE HCL 50 MG/ML VIAL IV PRN ×3 (07:24→22:31)
[2020-01-12] MEDS: HYDROXYUREA 500 MG CAPSULE PO SCH ×2 (08:04→22:31)
--- NOTE | 2020-01-12 08:26 | PDOC PROGRESS REPORT ---
Subjective Progress Note for:: 01/12/20 Subjective:: Still w/ considerable pain and SOB. Yesterday, her dilaudid fell off the MAR and I restarted overnight after nursing called. Reason For Visit: [facility] Physical Exam Vital Signs: Temp Pulse Resp BP Pulse Ox 98.0 F 66 16 135/89 H 100 01/12/20 07:31 01/12/20 07:31 01/12/20 07:31 01/12/20 07:31 01/12/20 07:31 Intake & Output 01/11/20 01/12/20 01/13/20 06:59 06:59 06:59 Intake Total 5820 3000 Output Total 900 2950 Balance 4920 50 Weight 99 kg 99 kg General appearance: PRESENT: no acute distress, well-developed, well-nourished Head exam: PRESENT: atraumatic, normocephalic Eye exam: PRESENT: conjunctiva pink, EOMI, PERRLA. ABSENT: scleral icterus Ear exam: PRESENT: normal external ear exam Mouth exam: PRESENT: moist, tongue midline Neck exam: ABSENT: carotid bruit, JVD, lymphadenopathy, thyromegaly Respiratory exam: PRESENT: clear to auscultation samaria. ABSENT: rales, rhonchi, wheezes Cardiovascular exam: PRESENT: RRR. ABSENT: diastolic murmur, rubs, systolic murmur Pulses: PRESENT: normal dorsalis pedis pul Vascular exam: PRESENT: normal capillary refill GI/Abdominal exam: PRESENT: normal bowel sounds, soft. ABSENT: distended, guarding, mass, organolmegaly, rebound, tenderness Rectal exam: PRESENT: deferred Extremities exam: PRESENT: full ROM. ABSENT: calf tenderness, clubbing, pedal edema Neurological exam: PRESENT: alert, awake, oriented to person, oriented to place, oriented to time, oriented to situation, CN II-XII grossly intact. ABSENT: motor sensory deficit Psychiatric exam: PRESENT: appropriate affect, normal mood. ABSENT: homicidal ideation, suicidal ideation Skin exam: PRESENT: dry, intact, warm. ABSENT: cyanosis, rash Results Laboratory Results: 01/11/20 23:04 01/11/20 23:04 01/11/20 01/11/20 01/11/20 23:04 23:04 23:04 WBC 9.9 RBC 2.62 L Hgb 8.8 L Hct 24.6 L MCV 94 MCH 33.6 H MCHC 35.7 RDW 22.4 H Plt Count 330 Retic Count (auto) 15.10 H Sodium Potassium Chloride Carbon Dioxide Anion Gap BUN Creatinine Est GFR ( Amer) Glucose Calcium Total Bilirubin 8.7 H 01/11/20 23:04 WBC RBC Hgb Hct MCV MCH MCHC RDW Plt Count Retic Count (auto) Sodium 139.6 Potassium 3.7 Chloride 104 Carbon Dioxide 27 Anion Gap 9 BUN 2 L Creatinine 0.47 L Est GFR ( Amer) > 60 Glucose 99 Calcium 9.0 Total Bilirubin Impressions: Chest X-Ray 01/08/20 00:00 IMPRESSION: NO ACUTE RADIOGRAPHIC FINDING IN THE CHEST. Assessment & Plan - Diagnosis (1) Sickle cell crisis Is this a current diagnosis for this admission?: Yes Plan: Cont current pain control and supportive care, will need a few more days. 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 Is this a current diagnosis for this admission?: Yes Plan: Hb stable, transfuse if hb< or = 7 - Time Time Spent with patient: 35 or more minutes - Inpatient Certification Based on my medical assessment, after consideration of the patient's comorbidities, presenting symptoms, or acuity I expect that the services needed warrant INPATIENT care.: Yes I certify that my determination is in accordance with my understanding of Medicare's requirements for reasonable and necessary INPATIENT services [42 CFR 412.3e].: Yes Medical Necessity: Need For IV Fluids, Need for Pain Control
[2020-01-12 08:41] LABS: ABSOLUTE RETICS # 0.439 10^6/uL (0.028-0.122); HEMATOCRIT 25.3 % (36.0-47.0); HEMOGLOBIN 9.1 g/dL (12.0-15.5); MEAN CORPUSCULAR VOLUME 94 fl (80-97); PLATELET COUNT 328 10^3/uL (150-450); RED BLOOD COUNT 2.68 10^6/uL (3.72-5.28); RETICULOCYTE COUNT (AUTO) 16.34 % (0.66-2.85); WHITE BLOOD COUNT 9.5 10^3/uL (4.0-10.5)
[2020-01-12 08:58] LABS: ANION GAP 8 (5-19); BILIRUBIN,DIRECT 1.1 mg/dL (0.0-0.4); BILIRUBIN,TOTAL 7.2 mg/dL (0.2-1.3); BLOOD UREA NITROGEN 3 mg/dL (7-20); CARBON DIOXIDE 27 mmol/L (22-30); CHLORIDE 105 mmol/L (98-107); GLUCOSE 86 mg/dL (75-110)
[2020-01-12] MEDS: DOCUSATE SODIUM 100 MG CAPSULE PO SCH (09:58)
[2020-01-12] MEDS: FOLIC ACID 1 MG TABLET PO SCH (09:58)
[2020-01-12] MEDS: PREGABALIN 100 MG CAPSULE PO SCH ×3 (09:58→18:53)
[2020-01-12] MEDS: BUSPIRONE HCL 10 MG TABLET PO SCH ×2 (09:59→17:44)
[2020-01-12] MEDS: CITALOPRAM HYDROBROMIDE 20 MG TABLET PO SCH ×2 (09:59→22:31)
[2020-01-12] MEDS: ENOXAPARIN SODIUM INJ 40 MG/0.4 ML DISP.SYRIN SUBCUT SCH (10:01)
[2020-01-12 12:12] LABS: PATH REVIEW PATHOLOGIST REVIEWED
--- NOTE | 2020-01-12 15:21 | PDOC PROGRESS REPORT ---
Subjective Progress Note for:: 01/12/20 Subjective:: Patient seen on morning rounds. She is resting in bed comfortably and awakens easily. 2L NC in place with O2 sat 100%. Pt states that she put O2 on after she became short of breath while ambulating from her bed to the bathroom. This has since resolved with rest and O2. She feels comfortable removing O2 at rest but does not feel comfortable ambulating without O2 at this time. She also notes a pain with deep breath that origniates on the right side of her back and radiates to the right flank and under the right breast. Denies pain with rest. Denies fever, chills, or cough. Pain is similar to pain she has experienced with previous crisis. Her last bowel movement was x3 days ago. Currently taking Mirlax x1 day. Upon further questioning she further denies palitations, abdominal pain, NVD. No further complaints or concerns at this time. Discussed case with pt's nurse. Nurse states that pt has be able to get out of bed and ambulate. No further complaints or concerns verbalized at this time. Reason For Visit: [facility] Physical Exam Vital Signs: Temp Pulse Resp BP Pulse Ox 98.2 F 68 16 115/68 100 01/12/20 11:43 01/12/20 11:43 01/12/20 11:43 01/12/20 11:43 01/12/20 11:43 Intake & Output 01/11/20 01/12/20 01/13/20 06:59 06:59 06:59 Intake Total 5820 3000 Output Total 900 2950 Balance 4920 50 Weight 99 kg 99 kg General appearance: PRESENT: cooperative, mild distress, obese Head exam: PRESENT: atraumatic, normocephalic Eye exam: PRESENT: conjunctiva pink, EOMI. ABSENT: scleral icterus Mouth exam: PRESENT: moist, tongue midline Neck exam: PRESENT: full ROM. ABSENT: JVD, lymphadenopathy, tenderness Respiratory exam: PRESENT: chest wall tenderness - TTP right side of back into right flank and under right breast bone, primarily in the area of the latissimus dorsi, clear to auscultation samaria, symmetrical, unlabored. ABSENT: tachypnea, wheezes Cardiovascular exam: PRESENT: RRR, +S1, +S2. ABSENT: clicks, diastolic murmur, rubs, systolic murmur, tachycardia Pulses: PRESENT: normal radial pulses GI/Abdominal exam: PRESENT: soft. ABSENT: distended, firm, guarding, hernia, tenderness Extremities exam: PRESENT: full ROM. ABSENT: calf tenderness, clubbing, pedal e jason Musculoskeletal exam: PRESENT: ambulatory, full ROM. ABSENT: deformity, dislocation Neurological exam: PRESENT: alert, awake, oriented to person, oriented to place, oriented to time, oriented to situation. ABSENT: altered, motor sensory deficit Psychiatric exam: PRESENT: appropriate affect, normal mood Skin exam: PRESENT: dry, intact, warm Results Laboratory Results: 01/12/20 07:27 01/12/20 07:27 01/11/20 01/11/20 01/11/20 23:04 23:04 23:04 WBC 9.9 RBC 2.62 L Hgb 8.8 L Hct 24.6 L MCV 94 MCH 33.6 H MCHC 35.7 RDW 22.4 H Plt Count 330 Retic Count (auto) 15.10 H Sodium Potassium Chloride Carbon Dioxide Anion Gap BUN Creatinine Est GFR ( Amer) Glucose Calcium Total Bilirubin 8.7 H 01/11/20 01/12/20 01/12/20 23:04 07:27 07:27 WBC 9.5 RBC 2.68 L Hgb 9.1 L Hct 25.3 L MCV 94 MCH 34.0 H MCHC 36.0 RDW 22.0 H Plt Count 328 Retic Count (auto) 16.34 H Sodium 139.6 140.4 Potassium 3.7 4.0 Chloride 104 105 Carbon Dioxide 27 27 Anion Gap 9 8 BUN 2 L 3 L Creatinine 0.47 L 0.50 L Est GFR ( Amer) > 60 > 60 Glucose 99 86 Calcium 9.0 9.0 Total Bilirubin 7.2 H Impressions: Chest X-Ray 01/08/20 00:00 IMPRESSION: NO ACUTE RADIOGRAPHIC FINDING IN THE CHEST. Assessment and Plan - Diagnosis (1) Sickle cell pain crisis Is this a current diagnosis for this admission?: Yes (2) Sickle cell anemia Qualifiers: Sickle-cell associated disorders: with unspecified crisis Qualified Code(s): D57.00 - Hb-SS disease with crisis, unspecified; D57.0 - Hb-SS disease with crisis Is this a current diagnosis for this admission?: Yes (3) Thrombocytosis Is this a current diagnosis for this admission?: Yes (4) Back pain Qualifiers: Back pain location: low back pain Chronicity: unspecified Back pain laterality: bilateral Sciatica presence: without sciatica Qualified Code(s): M54.5 - Low back pain Is this a current diagnosis for this admission?: Yes (5) Constipation Qualifiers: Constipation type: drug induced constipation Qualified Code(s): K59.03 - Drug induced constipation Is this a current diagnosis for this admission?: Yes (6) Depression with anxiety Is this a current diagnosis for this admission?: Yes (7) Elevated bilirubin Is this a current diagnosis for this admission?: Yes (8) Leukocytosis Qualifiers: Leukocytosis type: unspecified Qualified Code(s): D72.829 - Elevated white blood cell count, unspecified Is this a current diagnosis for this admission?: Yes - Plan Summary Summary: Ms. Joyner is a 24 year old female with PMHx of sickle cell anemia, acute chest syndrome, DVT, opiate dependent chronic pain, depression and anxiety. She was admitted on 01/05/2020 for inpatient evaluation and treatment of sickle cell crisis. Prior to admission pt seen in the ED on several occasions regarding continued pain despite home interventions. Evaluation in the ED with negative CXR and benign UA. Pt recently returned from [place] (on 12/06/2019) where she lived for several months. She deneis recent illness. Dr. Baum, hematology, consulted and on board; pain treatment regimen/management as advised. Sickle cell pain crisis Continue generous IV fluids. Monitor SCC labs including: Hgb, retic count, tbili, and plt count Currently on supplemental oxygen at 2 L/min via NC with O2 sat 100%. - Remove supplemental O2 while at rest, nurse to get O2 sats on room air on rest - May continue with supplemental O2 on ambulation. Tomorrow investigate ambulating O2 sat. Hydroxyurea 1000 mg daily. Folic acid 1 mg daily. Hematology is consulted; will defer further pain medication management to their expertise. IV Benadryl and Zofran as needed for symptom management. Heating pad. Encouraged she continue with frequent ambulation Sickle cell anemia Hemoglobin 9.1 x1 unit PRBC 01/10/20 - Pt reports 6 total PRBC transfusions in 2019 thus far (Including tra nsfusion 01/10/20) Retic count 5.63 -> 16.34 Continue daily folic acid. Hematology on board. Back pain Radiating into right flank and under right breast bone, only with deep breaths. Denies at rest. Denies fever, chills, cough or tachypnea. O2 sat 100% on 2L NC. Suspect secondary to #1 vs less likely acute bacterial or viral infection as WBC WNL at 9.5. Evaluation management as above. Depression with anxiety We will continue the patient's home dose Celexa and BuSpar. Elevated bilirubin Chronic. Appears baseline is 4-5 Total bili 8.7 -> 7.2 Continue to monitor, suspect will decrease as sickle cell crisis resolves Leukocytosis Resolved Unclear etiology; likely acute inflammatory reaction. Patient denies symptoms to indicate infectious process. Repeat chest x-ray benign. Repeat urinalysis negative. No indications for antibiotics at this time. Thrombocytosis Resolved. PLT 484-> 328 Suspect secondary to current sickle cell crisis Lovenox for DVT prophylaxis; patient does have a history of DVT. Hematology is onboard Treatment otherwise as discussed above Constipation Last bowel movement x3 days ago Suspect secondary to pain regimen Bowel regimen in place, as directed by Dr. Baum - Time Time Spent with patient: 15-24 minutes Medications reviewed and adjusted accordingly: Yes Anticipated Discharge Disposition: Home, Self Care Anticipated Discharge Timeframe: pending hematology
[2020-01-12] MEDS: TRAZODONE HCL 50 MG TABLET PO SCH (22:31)
[2020-01-13] MEDS: HYDROMORPHONE HCL INJ/PF 2 MG/ML AMPULE IV PRN ×8 (01:02→22:01)
[2020-01-13] MEDS: DIPHENHYDRAMINE HCL 50 MG/ML VIAL IV PRN ×3 (06:54→17:35)
[2020-01-13 07:33] LABS: ABSOLUTE RETICS # 0.406 10^6/uL (0.028-0.122); HEMOGLOBIN 9.6 g/dL (12.0-15.5); MEAN CORPUSCULAR HEMOGLOBIN 34.4 pg (27.0-33.4); MEAN CORPUSCULAR HGB CONC 35.4 g/dL (32.0-36.0); MEAN CORPUSCULAR VOLUME 97 fl (80-97); RED BLOOD COUNT 2.78 10^6/uL (3.72-5.28); RED CELL DISTRIBUTION WIDTH 30.8 % (11.5-14.0); RETICULOCYTE COUNT (AUTO) 14.62 % (0.66-2.85); WHITE BLOOD COUNT 8.7 10^3/uL (4.0-10.5)
[2020-01-13 07:48] LABS: ANION GAP 9 (5-19); BILIRUBIN,DIRECT 0.5 mg/dL (0.0-0.4); BILIRUBIN,TOTAL 5.8 mg/dL (0.2-1.3); BLOOD UREA NITROGEN 5 mg/dL (7-20); CALCIUM 9.1 mg/dL (8.4-10.2); CARBON DIOXIDE 26 mmol/L (22-30); CHLORIDE 105 mmol/L (98-107); GLUCOSE 95 mg/dL (75-110); POTASSIUM 4.2 mmol/L (3.6-5.0)
[2020-01-13 07:59] LABS: PLATELET COUNT 291 10^3/uL (150-450)
--- NOTE | 2020-01-13 08:33 | PDOC PROGRESS REPORT ---
Subjective Progress Note for:: 01/13/20 Subjective:: Patient still with pain this morning, feeling it mostly in the low back today. Still with active crisis, reticulocyte count remains elevated. Reason For Visit: [facility] Physical Exam Vital Signs: Temp Pulse Resp BP Pulse Ox 97.9 F 67 17 147/79 H 98 01/13/20 03:09 01/13/20 03:09 01/13/20 03:09 01/13/20 03:09 01/13/20 03:09 Intake & Output 01/12/20 01/13/20 01/14/20 06:59 06:59 06:59 Intake Total 3000 1280 Output Total 2950 Balance 50 1280 Weight 99 kg 79.7 kg General appearance: PRESENT: no acute distress, well-developed, well-nourished Head exam: PRESENT: atraumatic, normocephalic Eye exam: PRESENT: conjunctiva pink, EOMI, PERRLA. ABSENT: scleral icterus Ear exam: PRESENT: normal external ear exam Mouth exam: PRESENT: moist, tongue midline Neck exam: ABSENT: carotid bruit, JVD, lymphadenopathy, thyromegaly Respiratory exam: PRESENT: clear to auscultation samaria. ABSENT: rales, rhonchi, wheezes Cardiovascular exam: PRESENT: RRR. ABSENT: diastolic murmur, rubs, systolic murmur Pulses: PRESENT: normal dorsalis pedis pul Vascular exam: PRESENT: normal capillary refill GI/Abdominal exam: PRESENT: normal bowel sounds, soft. ABSENT: distended, guarding, mass, organolmegaly, rebound, tenderness Rectal exam: PRESENT: deferred Extremities exam: PRESENT: full ROM. ABSENT: calf tenderness, clubbing, pedal edema Neurological exam: PRESENT: alert, awake, oriented to person, oriented to place, oriented to time, oriented to situation, CN II-XII grossly intact. ABSENT: motor sensory deficit Psychiatric exam: PRESENT: appropriate affect, normal mood. ABSENT: homicidal ideation, suicidal ideation Skin exam: PRESENT: dry, intact, warm. ABSENT: cyanosis, rash Results Laboratory Results: 01/13/20 06:51 01/13/20 06:51 01/12/20 01/12/20 01/13/20 07:27 07:27 06:51 WBC 9.5 8.7 RBC 2.68 L 2.78 L Hgb 9.1 L 9.6 L Hct 25.3 L 27.0 L MCV 94 97 MCH 34.0 H 34.4 H MCHC 36.0 35.4 RDW 22.0 H 30.8 H Plt Count 328 291 Retic Count (auto) 16.34 H 14.62 H Sodium 140.4 Potassium 4.0 Chloride 105 Carbon Dioxide 27 Anion Gap 8 BUN 3 L Creatinine 0.50 L Est GFR ( Amer) > 60 Glucose 86 Calcium 9.0 Total Bilirubin 7.2 H 01/13/20 06:51 WBC RBC Hgb Hct MCV MCH MCHC RDW Plt Count Retic Count (auto) Sodium 139.7 Potassium 4.2 Chloride 105 Carbon Dioxide 26 Anion Gap 9 BUN 5 L Creatinine 0.49 L Est GFR ( Amer) > 60 Glucose 95 Calcium 9.1 Total Bilirubin 5.8 H Impressions: Chest X-Ray 01/08/20 00:00 IMPRESSION: NO ACUTE RADIOGRAPHIC FINDING IN THE CHEST. Assessment & Plan - Diagnosis (1) Sickle cell crisis Is this a current diagnosis for this admission?: Yes Plan: Continue with current pain regimen, she still will probably need several more days then. Would decrease IV fluids to 50 mL/h. 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 Is this a current diagnosis for this admission?: Yes Plan: Hemoglobin stable. No need for transfusion unless hemoglobin gets less than or equal to 7. - Time Time Spent with patient: 15-24 minutes
[2020-01-13] MEDS: ENOXAPARIN SODIUM INJ 40 MG/0.4 ML DISP.SYRIN SUBCUT SCH (09:34)
[2020-01-13] MEDS: HYDROXYUREA 500 MG CAPSULE PO SCH ×2 (09:35→22:01)
[2020-01-13] MEDS: PREGABALIN 100 MG CAPSULE PO SCH ×3 (09:35→17:31)
[2020-01-13] MEDS: BUSPIRONE HCL 10 MG TABLET PO SCH ×2 (09:35→17:34)
[2020-01-13] MEDS: DOCUSATE SODIUM 100 MG CAPSULE PO SCH (09:35)
[2020-01-13] MEDS: CITALOPRAM HYDROBROMIDE 20 MG TABLET PO SCH ×2 (09:35→22:01)
[2020-01-13] MEDS: FOLIC ACID 1 MG TABLET PO SCH (09:35)
--- NOTE | 2020-01-13 16:17 | PDOC PROGRESS REPORT ---
Subjective Progress Note for:: 01/13/20 Subjective:: Patient seen on morning rounds. She is resting in bed comfortably and awakens easily. She is on room air today with O2 sat at 97%. Continues to have muscular type pain right side of back into just beneath right breast with deep inhalation. Otherwise her pain is overall slowly improving, though still present. Denies fever, chills, cough, palpitations, abdominal pain, NVD. Discussed case with pt's nurse. Nurse states that pt has been ambulating without O2 without difficulty. No further complaints or concerns at this time. Reason For Visit: SSC Physical Exam Vital Signs: Temp Pulse Resp BP Pulse Ox 98.3 F 70 16 135/77 H 97 01/13/20 11:15 01/13/20 11:15 01/13/20 11:15 01/13/20 11:15 01/13/20 11:15 Intake & Output 01/12/20 01/13/20 01/14/20 06:59 06:59 06:59 Intake Total 3000 1280 240 Output Total 2950 Balance 50 1280 240 Weight 99 kg 79.7 kg General appearance: PRESENT: cooperative, mild distress, obese Head exam: PRESENT: atraumatic, normocephalic Eye exam: PRESENT: conjunctiva pink, EOMI. ABSENT: scleral icterus Mouth exam: PRESENT: moist, tongue midline Neck exam: PRESENT: full ROM. ABSENT: lymphadenopathy, tenderness Respiratory exam: PRESENT: clear to auscultation samaria, symmetrical, unlabored. ABSENT: rhonchi, stridor, tachypnea, wheezes Cardiovascular exam: PRESENT: RRR, +S1, +S2. ABSENT: diastolic murmur, systolic murmur Pulses: PRESENT: normal radial pulses Vascular exam: PRESENT: normal capillary refill GI/Abdominal exam: PRESENT: normal bowel sounds, soft. ABSENT: distended, firm, guarding, tenderness Extremities exam: PRESENT: full ROM. ABSENT: pedal edema Musculoskeletal exam: PRESENT: ambulatory, full ROM. ABSENT: deformity, dislocation Neurological exam: PRESENT: alert, awake, oriented to person, oriented to place, oriented to time, oriented to situation, CN II-XII grossly intact. ABSENT: motor sensory deficit Psychiatric exam: PRESENT: appropriate affect, normal mood Skin exam: PRESENT: dry, intact, warm Results Laboratory Results: 01/13/20 06:51 01/13/20 06:51 01/13/20 01/13/20 06:51 06:51 WBC 8.7 RBC 2.78 L Hgb 9.6 L Hct 27.0 L MCV 97 MCH 34.4 H MCHC 35.4 RDW 30.8 H Plt Count 291 Retic Count (auto) 14.62 H Sodium 139.7 Potassium 4.2 Chloride 105 Carbon Dioxide 26 Anion Gap 9 BUN 5 L Creatinine 0.49 L Est GFR ( Amer) > 60 Glucose 95 Calcium 9.1 Total Bilirubin 5.8 H Impressions: Chest X-Ray 01/08/20 00:00 IMPRESSION: NO ACUTE RADIOGRAPHIC FINDING IN THE CHEST. Assessment and Plan - Diagnosis (1) Sickle cell pain crisis Is this a current diagnosis for this admission?: Yes (2) Sickle cell anemia Qualifiers: Sickle-cell associated disorders: with unspecified crisis Qualified Code(s): D57.00 - Hb-SS disease with crisis, unspecified; D57.0 - Hb-SS disease with crisis Is this a current diagnosis for this admission?: Yes (3) Thrombocytosis Is this a current diagnosis for this admission?: Yes (4) Back pain Qualifiers: Back pain location: low back pain Chronicity: unspecified Back pain laterality: bilateral Sciatica presence: without sciatica Qualified Code(s): M54.5 - Low back pain Is this a current diagnosis for this admission?: Yes (5) Constipation Qualifiers: Constipation type: drug induced constipation Qualified Code(s): K59.03 - Drug induced constipation Is this a current diagnosis for this admission?: Yes (6) Depression with anxiety Is this a current diagnosis for this admission?: Yes (7) Elevated bilirubin Is this a current diagnosis for this admission?: Yes (8) Leukocytosis Qualifiers: Leukocytosis type: unspecified Qualified Code(s): D72.829 - Elevated white blood cell count, unspecified Is this a current diagnosis for this admission?: Yes - Plan Summary Summary: Ms. Joyner is a 24 year old female with PMHx of sickle cell anemia, acute chest syndrome, DVT, opiate dependent chronic pain, depression and anxiety. She was admitted on 01/05/2020 for inpatient evaluation and treatment of sickle cell crisis. Prior to admission pt seen in the ED on several occasions regarding continued pain despite home interventions. Evaluation in the ED with negative CXR and benign UA. Pt recently returned from [place] (on 12/06/2019) where she lived for several months. She deneis recent illness. Dr. Baum, hematology, consulted and on board; pain treatment regimen/management as advised. Sickle cell pain crisis IVF lowed in rate, per Dr. Baum. Monitor SCC labs including: Hgb, retic count, tbili, and plt count Previously on supplemental 2L O2 via NC. Tolerating both rest and ambulation without O2. Sats >95%. Hydroxyurea 1000 mg daily. Folic acid 1 mg daily. Hematology is consulted; will defer further pain medication management to their expertise. IV Benadryl and Zofran as needed for symptom management. Heating pad. Encouraged she continue with frequent ambulation Sickle cell anemia Hemoglobin 9.6 x1 unit PRBC 01/10/20 - Pt reports 6 total PRBC transfusions in 2019 thus far (Including transfusion 01/10/20) Retic count 5.63 -> 16.34 -> 14.62 Continue daily folic acid. Hematology on board. Back pain Radiating into right flank and under right breast bone, only with deep breaths. Denies at rest. Denies fever, chills, cough or tachypnea. O2 sat 100% on 2L NC. Suspect secondary to #1 vs less likely acute bacterial or viral infection as WBC WNL at 9.5. Evaluation management as above. Depression with anxiety We will continue the patient's home dose Celexa and BuSpar. Elevated bilirubin Chronic. Appears baseline is 4-5 Total bili 8.7 -> 7.2 -> 5.8 Continue to monitor, suspect will decrease as sickle cell crisis resolves Leukocytosis Resolved Unclear etiology; likely acute inflammatory reaction. Patient denies symptoms to indicate infectious process. Repeat chest x-ray benign. Repeat urinalysis negative. No indications for antibiotics at this time. Thrombocytosis Resolved. PLT 484-> 328 Suspect secondary to current sickle cell crisis Lovenox for DVT prophylaxis; patient does have a history of DVT. Hematology is onboard Treatment otherwise as discussed above Constipation Last bowel movement >3 days ago Suspect secondary to pain regimen Bowel regimen in place, as directed by Dr. Baum - Time Time Spent with patient: 15-24 minutes Medications reviewed and adjusted accordingly: Yes Anticipated Discharge Disposition: Home, Self Care Anticipated Discharge Timeframe: undetermined
[2020-01-13] MEDS: NORMAL SALINE 1000 ML 1,000 ML IV PRN (17:35)
[2020-01-13] MEDS: POLYETHYLENE GLYCOL 3350 POWDER 17 GM/1 PACKET PO PRN (20:05)
[2020-01-13] MEDS: TRAZODONE HCL 50 MG TABLET PO SCH (22:01)
[2020-01-14] MEDS: DIPHENHYDRAMINE HCL 50 MG/ML VIAL IV PRN ×4 (00:09→19:11)
[2020-01-14] MEDS: HYDROMORPHONE HCL INJ/PF 2 MG/ML AMPULE IV PRN ×11 (00:09→23:44)
[2020-01-14] MEDS: NORMAL SALINE 1000 ML 1,000 ML IV PRN (03:48)
[2020-01-14] MEDS ORDERED: HYDROMORPHONE HCL INJ/PF 2 MG/ML AMPULE ONE (06:37)
[2020-01-14 08:44] LABS: HEMATOCRIT 27.9 % (36.0-47.0); HEMOGLOBIN 9.9 g/dL (12.0-15.5); MEAN CORPUSCULAR HEMOGLOBIN 34.8 pg (27.0-33.4); MEAN CORPUSCULAR HGB CONC 35.4 g/dL (32.0-36.0); MEAN CORPUSCULAR VOLUME 99 fl (80-97); PLATELET COUNT 367 10^3/uL (150-450); RED BLOOD COUNT 2.83 10^6/uL (3.72-5.28); RED CELL DISTRIBUTION WIDTH 31.5 % (11.5-14.0); RETICULOCYTE COUNT (AUTO) 9.86 % (0.66-2.85); WHITE BLOOD COUNT 6.5 10^3/uL (4.0-10.5)
[2020-01-14 08:51] LABS: ANION GAP 7 (5-19); BILIRUBIN,TOTAL 5.2 mg/dL (0.2-1.3); BLOOD UREA NITROGEN 9 mg/dL (7-20); CALCIUM 8.9 mg/dL (8.4-10.2); CARBON DIOXIDE 27 mmol/L (22-30); CHLORIDE 105 mmol/L (98-107); GLUCOSE 96 mg/dL (75-110); POTASSIUM 4.3 mmol/L (3.6-5.0)
--- NOTE | 2020-01-14 09:08 | PDOC PROGRESS REPORT ---
Subjective Progress Note for:: 01/14/20 Subjective:: Patient still complaining of pain, no significant change. Some constipation, but she is taking stool softeners and Miralax. No new concerns today. Reason For Visit: SSC Physical Exam Vital Signs: Temp Pulse Resp BP Pulse Ox 97.5 F 65 16 134/72 H 96 01/14/20 08:00 01/14/20 08:00 01/14/20 08:00 01/14/20 08:00 01/14/20 08:00 Intake & Output 01/13/20 01/14/20 01/15/20 06:59 06:59 06:59 Intake Total 1280 2005 Balance 1280 2005 Weight 79.7 kg 77 kg General appearance: PRESENT: no acute distress, well-developed, well-nourished Exam: Up walking around in room with oxygen off. Eye exam: PRESENT: EOMI, PERRLA Extremities exam: ABSENT: pedal edema Musculoskeletal exam: PRESENT: ambulatory Neurological exam: PRESENT: alert, awake, oriented to person, oriented to place, oriented to time, oriented to situation Psychiatric exam: PRESENT: appropriate affect Skin exam: PRESENT: normal color Results Laboratory Results: 01/14/20 07:45 01/14/20 07:45 Sodium 139.4 Potassium 4.3 Chloride 105 Carbon Dioxide 27 Anion Gap 7 BUN 9 Creatinine 0.53 Est GFR ( Amer) > 60 Glucose 96 Calcium 8.9 Total Bilirubin 5.2 H Impressions: Chest X-Ray 01/08/20 00:00 IMPRESSION: NO ACUTE RADIOGRAPHIC FINDING IN THE CHEST. Assessment & Plan - Diagnosis (1) Sickle cell crisis Is this a current diagnosis for this admission?: Yes Plan: Await today's CBC. May be better to stop daily labs and monitor 2-3 times a week. She received transfusion earlier this admission. Her HGB was stable as of yesterday. Would continue pain medications without changes today. Encouraged ambulation and nutrition. - Time Time Spent with patient: Less than 15 minutes
[2020-01-14] MEDS: BUSPIRONE HCL 10 MG TABLET PO SCH ×2 (09:57→17:11)
[2020-01-14] MEDS: CITALOPRAM HYDROBROMIDE 20 MG TABLET PO SCH ×2 (09:57→21:10)
[2020-01-14] MEDS: PREGABALIN 100 MG CAPSULE PO SCH ×3 (09:58→17:14)
[2020-01-14] MEDS: FOLIC ACID 1 MG TABLET PO SCH (09:58)
[2020-01-14] MEDS: DOCUSATE SODIUM 100 MG CAPSULE PO SCH (09:58)
[2020-01-14] MEDS: HYDROXYUREA 500 MG CAPSULE PO SCH ×2 (10:00→21:11)
[2020-01-14] MEDS: ENOXAPARIN SODIUM INJ 40 MG/0.4 ML DISP.SYRIN SUBCUT SCH (10:02)
--- NOTE | 2020-01-14 12:02 | PDOC PROGRESS REPORT ---
Subjective Progress Note for:: 01/14/20 Subjective:: Patient seen on morning rounds she is resting comfortably in bed watching a show on her telephone. She notes pain stating that has been pretty consistent from yesterday.changes. She was able to ambulate in the weaver stating that she took 3 laps. The third lap became difficult for her but she was able to finish it. Her appetite is intact. She still has not had a bowel movement, taking stool softeners and MiraLAX. Otherwise denies fever, chills, chest pain, cough, shortness of breath, abdominal pain, nausea vomiting diarrhea or lower extremity swelling. Discussed case with patient's nurse. Nurse states that patient initially refused labs this morning. Discussed this with the patient, she stated that she is tired of needle sticks. Patient does have a port in place, they were able to pull labs from port. No further concerns or complaints this time. Reason For Visit: SSC Physical Exam Vital Signs: Temp Pulse Resp BP Pulse Ox 97.5 F 65 16 134/72 H 96 01/14/20 08:00 01/14/20 08:00 01/14/20 08:00 01/14/20 08:00 01/14/20 08:00 Intake & Output 01/13/20 01/14/20 01/15/20 06:59 06:59 06:59 Intake Total 1280 2005 120 Balance 1280 2005 120 Weight 79.7 kg 77 kg General appearance: PRESENT: no acute distress, obese Head exam: PRESENT: atraumatic, normocephalic Eye exam: PRESENT: conjunctiva pink, EOMI. ABSENT: scleral icterus Mouth exam: PRESENT: moist, tongue midline Neck exam: PRESENT: full ROM. ABSENT: tenderness Respiratory exam: PRESENT: chest wall tenderness, symmetrical, unlabored. ABSENT: rhonchi, stridor, tachypnea, wheezes Cardiovascular exam: PRESENT: RRR, +S1, +S2. ABSENT: diastolic murmur, systolic murmur Pulses: PRESENT: normal radial pulses Vascular exam: PRESENT: normal capillary refill GI/Abdominal exam: PRESENT: normal bowel sounds, soft. ABSENT: distended, firm, guarding, tenderness Extremities exam: PRESENT: full ROM. ABSENT: pedal edema, tenderness Musculoskeletal exam: PRESENT: ambulatory, full ROM. ABSENT: deformity, dislocation Neurological exam: PRESENT: alert, awake, oriented to person, oriented to place, oriented to time, oriented to situation, CN II-XII grossly intact. ABSENT: altered, motor sensory deficit Psychiatric exam: PRESENT: appropriate affect, normal mood Skin exam: PRESENT: dry, intact, warm Results Laboratory Results: 01/14/20 07:45 01/14/20 07:45 01/14/20 01/14/20 07:45 07:45 WBC 6.5 RBC 2.83 L Hgb 9.9 L Hct 27.9 L MCV 99 H MCH 34.8 H MCHC 35.4 RDW 31.5 H Plt Count 367 Retic Count (auto) 9.86 H Sodium 139.4 Potassium 4.3 Chloride 105 Carbon Dioxide 27 Anion Gap 7 BUN 9 Creatinine 0.53 Est GFR ( Amer) > 60 Glucose 96 Calcium 8.9 Total Bilirubin 5.2 H Impressions: Chest X-Ray 01/08/20 00:00 IMPRESSION: NO ACUTE RADIOGRAPHIC FINDING IN THE CHEST. Assessment and Plan - Diagnosis (1) Sickle cell pain crisis Is this a current diagnosis for this admission?: Yes (2) Sickle cell anemia Qualifiers: Sickle-cell associated disorders: with unspecified crisis Qualified Code(s): D57.00 - Hb-SS disease with crisis, unspecified; D57.0 - Hb-SS disease with crisis Is this a current diagnosis for this admission?: Yes (3) Thrombocytosis Is this a current diagnosis for this admission?: Yes (4) Back pain Qualifiers: Back pain location: low back pain Chronicity: unspecified Back pain laterality: bilateral Sciatica presence: without sciatica Qualified Code(s): M54.5 - Low back pain Is this a current diagnosis for this admission?: Yes (5) Constipation Qualifiers: Constipation type: drug induced constipation Qualified Code(s): K59.03 - Drug induced constipation Is this a current diagnosis for this admission?: Yes (6) Depression with anxiety Is this a current diagnosis for this admission?: Yes (7) Elevated bilirubin Is this a current diagnosis for this admission?: Yes (8) Leukocytosis Qualifiers: Leukocytosis type: unspecified Qualified Code(s): D72.829 - Elevated white blood cell count, unspecified Is this a current diagnosis for this admission?: Yes - Plan Summary Summary: Ms. Joyner is a 24 year old female with PMHx of sickle cell anemia, acute chest syndrome, DVT, opiate dependent chronic pain, depression and anxiety. She was admitted on 01/05/2020 for inpatient evaluation and treatment of sickle cell crisis. Prior to admission pt seen in the ED on several occasions regarding continued pain despite home interventions. Evaluation in the ED with negative CXR and benign UA. Pt recently returned from [place] (on 12/06/2019) where she lived for several months. She deneis recent illness. Dr. Baum, hematology, consulted and on board; pain treatment regimen/management as advised. Sickle cell pain crisis IVF continued at low rate. Monitor SCC labs every 2 days including (Hgb, retic count, tbili, and plt count) O2 sat greater than 95% on ambulating and at rest on room air. Hydroxyurea 1000 mg daily. Folic acid 1 mg daily. IV Benadryl and Zofran as needed for symptom management. Heating pad. Encouraged she continue with frequent ambulation, proper nutrition and frequent fluids po. Hematology on board, pain medication management as per their expertise. Sickle cell anemia Hemoglobin 9.9 x1 unit PRBC 01/10/20. Pt reports 6 total PRBC transfusions in 2019 thus far (Including transfusion 01/10/20) Retic count 5.63 -> 16.34 -> 14.62 -> 9.86 Hematology on board. Back pain Pt with chronic back pain, increased in saeed of crisis Management as above. Depression with anxiety Continue home dose Celexa and BuSpar. Elevated bilirubin Chronic. Appears baseline is 4-5 Total bili 8.7 -> 7.2 -> 5.8 -> 5.2 Continue to monitor, suspect will decrease as sickle cell crisis resolves Leukocytosis Resolved; likely secondary to acute inflammatory reaction. Patient denies symptoms to indicate infectious process. Imaging and UA benign. No indications for antibiotics at this time. Thrombocytosis Resolved. secondary to current sickle cell crisis PLT 484-> 328 Patient with history of DVT; Lovenox for prophylaxis. Treatment otherwise as discussed above Constipation Last bowel movement >3 days ago Suspect secondary to pain regimen Bowel regimen in place, as directed by Dr. Baum - Time Time Spent with patient: Less than 15 minutes Medications reviewed and adjusted accordingly: Yes Anticipated Discharge Disposition: Home, Self Care Anticipated Discharge Timeframe: unknwon
[2020-01-14] MEDS: TRAZODONE HCL 50 MG TABLET PO SCH (21:10)
[2020-01-15] MEDS: HYDROMORPHONE HCL INJ/PF 2 MG/ML AMPULE IV PRN ×10 (02:56→23:57)
[2020-01-15] MEDS: DIPHENHYDRAMINE HCL 50 MG/ML VIAL IV PRN ×4 (03:03→23:57)
[2020-01-15] MEDS: NORMAL SALINE 1000 ML 1,000 ML IV PRN ×2 (03:04→17:21)
--- NOTE | 2020-01-15 08:00 | PDOC DISCHARGE SUMMARY ---
Impression - Admit/DC Date/PCP Admission Date/Primary Care Provider: 01/07/20 08:51 Discharge Date: 01/15/20 - Discharge Diagnosis (1) Sickle cell pain crisis Is this a current diagnosis for this admission?: Yes (2) Sickle cell anemia Is this a current diagnosis for this admission?: Yes (3) Thrombocytosis Is this a current diagnosis for this admission?: Yes (4) Back pain Is this a current diagnosis for this admission?: Yes (5) Leukocytosis Is this a current diagnosis for this admission?: Yes (6) Constipation Is this a current diagnosis for this admission?: Yes (7) Depression with anxiety Is this a current diagnosis for this admission?: Yes (8) Elevated bilirubin Is this a current diagnosis for this admission?: Yes - Assessment Summary: Ms. Middleton is a 24 year old female with PMHx of sickle cell anemia, acute chest syndrome, DVT, opiate dependent chronic pain, depression and anxiety. She was admitted on 01/05/2020 for inpatient evaluation and treatment of sickle cell crisis. Prior to admission pt seen in the ED on several occasions regarding continued pain despite home interventions. Evaluation in the ED with negative CXR and benign UA. Pt recently returned from [place] (on 12/06/2019) where she lived for several months. She deneis recent illness. Dr. Baum, hematology, consulted and on board; pain treatment regimen/management as advised. Sickle cell pain crisis IVF continued at low rate. Monitor SCC labs every 2 days including (Hgb, retic count, tbili, and plt count) O2 sat greater than 95% on ambulating and at rest on room air. Hydroxyurea 1000 mg daily. Folic acid 1 mg daily. IV Benadryl and Zofran as needed for symptom management. Heating pad. Encouraged she continue with frequent ambulation, proper nutrition and frequent fluids po. Hematology on board, pain medication management as per their expertise. Sickle cell anemia Hemoglobin 9.9 x1 unit PRBC 01/10/20. Pt reports 6 total PRBC transfusions in 2019 thus far (Including transfusion 01/10/20) Retic count 5.63 -> 16.34 -> 14.62 -> 9.86 Hematology on board. Back pain Pt with chronic back pain, increased in saeed of crisis Management as above. Depression with anxiety Continue home dose Celexa and BuSpar. Elevated bilirubin Chronic. Appears baseline is 4-5 Total bili 8.7 -> 7.2 -> 5.8 -> 5.2 Continue to monitor, suspect will decrease as sickle cell crisis resolves Leukocytosis Resolved; likely secondary to acute inflammatory reaction. Patient denies symptoms to indicate infectious process. Imaging and UA benign. No indications for antibiotics at this time. Thrombocytosis Resolved. secondary to current sickle cell crisis PLT 484-> 328 Patient with history of DVT; Lovenox for prophylaxis. Treatment otherwise as discussed above Constipation Last bowel movement >3 days ago Suspect secondary to pain regimen Bowel regimen in place, as directed by Dr. Baum - Additional Information Resuscitation Status: Full Code Home Medications: Buspirone HCl [Buspar 10 mg Tablet] 5 mg PO BID 01/05/20 Cholecalciferol (Vitamin D3) [Vitamin D3 1000 Unit Tablet] 1,000 unit PO DAILY 01/05/20 Citalopram Hydrobromide [Celexa 20 mg Tablet] 20 mg PO Q12 01/05/20 Diphenhydramine HCl [Benadryl] 25 mg PO Q6HP PRN 01/05/20 Folic Acid [Folvite 1 mg Tablet] 1 mg PO DAILY 01/05/20 Glutamine [Endari] 3 packet PO BID 01/05/20 Hydromorphone HCl [Dilaudid 2 mg Tablet] 2 mg PO Q6HP PRN 01/05/20 Hydroxyurea [Hydrea 500 mg Capsule] 1,000 mg PO QAM 01/05/20 Hydroxyurea [Hydrea 500 mg Capsule] 500 mg PO QHS 01/05/20 Ibuprofen [Motrin 400 mg Tablet] 400 mg PO Q8 01/05/20 Pregabalin [Lyrica 75 mg Capsule] 75 mg PO Q8HP PRN 01/05/20 Trazodone HCl [Desyrel 50 mg Tablet] 50 mg PO QHS 01/05/20 History of Present Illiness History of Present Illness: CASSANDRA MIDDLETON is a 24 year old female Physical Exam Vital Signs: Temp Pulse Resp BP Pulse Ox 97.9 F 68 18 106/45 L 97 01/15/20 04:36 01/15/20 04:36 01/15/20 04:36 01/15/20 04:36 01/15/20 04:36 Intake & Output 01/14/20 01/15/2020 06:59 06:59 06:59 Intake Total 2005 1540 Balance 2005 1540 Weight 77 kg 76.4 kg Results Laboratory Results: WBC 6.5 10^3/uL (4.0-10.5) 01/14/20 07:45 RBC 2.83 10^6/uL (3.72-5.28) L 01/14/20 07:45 Hgb 9.9 g/dL (12.0-15.5) L 01/14/20 07:45 Hct 27.9 % (36.0-47.0) L 01/14/20 07:45 MCV 99 fl (80-97) H 01/14/20 07:45 MCH 34.8 pg (27.0-33.4) H 01/14/20 07:45 MCHC 35.4 g/dL (32.0-36.0) 01/14/20 07:45 RDW 31.5 % (11.5-14.0) H 01/14/20 07:45 Plt Count 367 10^3/uL (150-450) 01/14/20 07:45 Lymph % (Auto) Not Reportable 01/10/20 19:28 [place] % (Auto) Not Reportable 01/10/20 19:28 Eos % (Auto) Not Reportable 01/10/20 19:28 Baso % (Auto) Not Reportable 01/10/20 19:28 Reticulocyte # 0.280 10^6/uL (0.028-0.122) H 01/14/20 07:45 Absolute Neuts (auto) Not Reportable 01/10/20 19:28 Absolute Lymphs (auto) Not Reportable 01/10/20 19:28 Absolute Monos (auto) Not Reportable 01/10/20 19:28 Absolute Eos (auto) Not Reportable 01/10/20 19:28 Absolute Basos (auto) Not Reportable 01/10/20 19:28 Total Counted 100 01/10/20 19:28 Seg Neutrophils % Not Reportable 01/10/20 19:28 Seg Neuts % (Manual) 71 % (42-78) 01/10/20 19:28 Lymphocytes % (Manual) 23 % (13-45) 01/10/20 19:28 Monocytes % (Manual) 3 % (3-13) 01/10/20 19:28 Eosinophils % (Manual) 3 % (0-6) 01/10/20 19:28 Basophils % (Manual) 0 % (0-2) 01/10/20 19:28 Abs Neuts (Manual) 6.6 10^3/uL (1.7-8.2) 01/10/20 19:28 Abs Lymphs (Manual) 2.1 10^3/uL (0.5-4.7) 01/10/20 19:28 Abs Monocytes (Manual) 0.3 10^3/uL (0.1-1.4) 01/10/20 19:28 Absolute Eos (Manual) 0.3 10^3/uL (0.0-0.6) 01/10/20 19:28 Abs Basophils (Manual) 0.0 10^3/uL (0.0-0.2) 01/10/20 19:28 Nucleated RBCs 50 /100 WBC (0) 01/10/20 19:28 Toxic Granulation 1+ 01/08/20 05:40 Toxic Vacuolation PRESENT 01/08/20 05:40 Platelet Comment ADEQUATE 01/10/20 19:28 Polychromasia 1+ 01/10/20 19:28 Poikilocytosis 2+ 01/10/20 19:28 Basophilic Stippling PRESENT 01/08/20 05:40 Anisocytosis 2+ 01/10/20 19:28 Sickle Cells 1+ 01/10/20 19:28 Target Cells 1+ 01/10/20 19:28 Tear Drop Cells SLIGHT 01/10/20 19:28 Schistocytes 1+ 01/10/20 19:28 Retic Count (auto) 9.86 % (0.66-2.85) H 01/14/20 07:45 Sodium 139.4 mmol/L (137-145) 01/14/20 07:45 Potassium 4.3 mmol/L (3.6-5.0) 01/14/20 07:45 Chloride 105 mmol/L (98-107) 01/14/20 07:45 Carbon Dioxide 27 mmol/L (22-30) 01/14/20 07:45 Anion Gap 7 (5-19) 01/14/20 07:45 BUN 9 mg/dL (7-20) 01/14/20 07:45 Creatinine 0.53 mg/dL (0.52-1.25) 01/14/20 07:45 Est GFR ( Amer) > 60 (>60) 01/14/20 07:45 Est GFR (MDRD) Non-Af > 60 (>60) 01/14/20 07:45 Glucose 96 mg/dL (75-110) 01/14/20 07:45 Calcium 8.9 mg/dL (8.4-10.2) 01/14/20 07:45 Total Bilirubin 5.2 mg/dL (0.2-1.3) H 01/14/20 07:45 Direct Bilirubin 1.0 mg/dL (0.0-0.4) H 01/14/20 07:45 Neonat Total Bilirubin Not Reportable 01/08/20 05:40 Neonat Direct Bilirubin Not Reportable 01/08/20 05:40 Neonat Indirect Bili Not Reportable 01/08/20 05:40 AST 34 U/L (14-36) 01/08/20 05:40 ALT 14 U/L (<35) 01/08/20 05:40 Alkaline Phosphatase 59 U/L (38-126) 01/08/20 05:40 Total Protein 6.3 g/dL (6.3-8.2) 01/08/20 05:40 Albumin 3.7 g/dL (3.5-5.0) 01/08/20 05:40 Beta HCG, Quant < 2.39 mIU/mL (0.0-6.15) 01/05/20 08:15 Total Beta HCG NEGATIVE (NEGATIVE) 01/05/20 08:15 Urine Color YELLOW 01/08/20 15:45 Urine Appearance SLIGHTLY-CLOUDY 01/08/20 15:45 Urine pH 6.0 (5.0-9.0) 01/08/20 15:45 Ur Specific [place] 1.011 01/08/20 15:45 Urine Protein NEGATIVE mg/dL (NEGATIVE) 01/08/20 15:45 Urine Glucose (UA) NEGATIVE mg/dL (NEGATIVE) 01/08/20 15:45 Urine Ketones NEGATIVE mg/dL (NEGATIVE) 01/08/20 15:45 Urine Blood NEGATIVE (NEGATIVE) 01/08/20 15:45 Urine Nitrite NEGATIVE (NEGATIVE) 01/05/20 08:55 Urine Nitrite (Reflex) NEGATIVE (NEGATIVE) 01/08/20 15:45 Urine Bilirubin NEGATIVE (NEGATIVE) 01/08/20 15:45 Urine Urobilinogen 4.0 mg/dL (<2.0) H 01/08/20 15:45 Ur Leukocyte Esterase NEGATIVE (NEGATIVE) 01/05/20 08:55 Leukocyte Esterase Rfl TRACE (NEGATIVE) H 01/08/20 15:45 Urine WBC (Auto) 1 /HPF 01/05/20 08:55 Urine RBC (Auto) 1 /HPF 01/08/20 15:45 Urine WBC (Reflex) 2 /HPF 01/08/20 15:45 Squamous Epi Cells Auto 11 /HPF 01/08/20 15:45 Urine Mucus (Auto) RARE /LPF 01/08/20 15:45 Urine Ascorbic Acid NEGATIVE (NEGATIVE) 01/08/20 15:45 Urine Opiates Screen UNCONFIRMED POSITIVE 01/05/20 08:55 Urine Methadone Screen NEGATIVE 01/05/20 08:55 Ur Barbiturates Screen NEGATIVE 01/05/20 08:55 Ur Phencyclidine Scrn NEGATIVE 01/05/20 08:55 Ur Amphetamines Screen NEGATIVE 01/05/20 08:55 U Benzodiazepines Scrn NEGATIVE 01/05/20 08:55 Urine Cocaine Screen NEGATIVE 01/05/20 08:55 U Marijuana (THC) Screen NEGATIVE 01/05/20 08:55 Slides for Path Review PATHOLOGIST REVIEWED 01/11/20 23:04 Blood Type O POSITIVE 01/10/20 10:10 Antibody Screen NEGATIVE 01/10/20 10:10 Crossmatch See Detail 01/10/20 10:10 Impressions: Chest X-Ray 01/05/20 00:00 IMPRESSION: NO ACUTE FINDINGS. Chest X-Ray 01/08/20 00:00 IMPRESSION: NO ACUTE RADIOGRAPHIC FINDING IN THE CHEST.
[2020-01-15] MEDS: HYDROXYUREA 500 MG CAPSULE PO SCH ×2 (08:02→21:47)
[2020-01-15] MEDS: FOLIC ACID 1 MG TABLET PO SCH (09:45)
[2020-01-15] MEDS: BUSPIRONE HCL 10 MG TABLET PO SCH ×2 (09:45→17:17)
[2020-01-15] MEDS: CITALOPRAM HYDROBROMIDE 20 MG TABLET PO SCH ×2 (09:45→21:47)
[2020-01-15] MEDS: DOCUSATE SODIUM 100 MG CAPSULE PO SCH (09:45)
[2020-01-15] MEDS: ENOXAPARIN SODIUM INJ 40 MG/0.4 ML DISP.SYRIN SUBCUT SCH (10:12)
[2020-01-15] MEDS: PREGABALIN 100 MG CAPSULE PO SCH ×2 (10:13→15:01)
--- NOTE | 2020-01-15 11:13 | PDOC PROGRESS REPORT ---
Subjective Progress Note for:: 01/15/20 Subjective:: Patient states pain is improving. She has been eating and drinking well. Her HGB is much improved. She is still waiting for the pain to go away. She did have a BM this morning. Reason For Visit: SSC Physical Exam Vital Signs: Temp Pulse Resp BP Pulse Ox 97.9 F 69 16 111/56 L 99 01/15/20 08:08 01/15/20 08:00 01/15/20 08:00 01/15/20 08:00 01/15/20 08:00 Intake & Output 01/14/20 01/15/20 01/16/20 06:59 06:59 06:59 Intake Total 2005 1540 Balance 2005 1540 Weight 77 kg 76.4 kg General appearance: PRESENT: no acute distress Head exam: PRESENT: normocephalic Eye exam: PRESENT: EOMI Respiratory exam: PRESENT: unlabored Extremities exam: ABSENT: pedal edema Musculoskeletal exam: PRESENT: ambulatory Neurological exam: PRESENT: alert, awake Psychiatric exam: PRESENT: appropriate affect Skin exam: PRESENT: normal color Results Laboratory Results: 01/14/20 07:45 01/14/20 07:45 Impressions: Chest X-Ray 01/08/20 00:00 IMPRESSION: NO ACUTE RADIOGRAPHIC FINDING IN THE CHEST. Assessment & Plan - Diagnosis (1) Sickle cell crisis Is this a current diagnosis for this admission?: Yes Plan: Continue pain medications and all treatments same as before. OK with discharge when patient agrees. I have explained that I like to try to weak narcotics prior to discharge, but she states that she has been discharge before without weaning and does fine. - Time Time Spent with patient: Less than 15 minutes
--- NOTE | 2020-01-15 11:26 | PDOC PROGRESS REPORT ---
Subjective Progress Note for:: 01/15/20 Subjective:: The patient is resting in bed on her K pad. She clearly is having some back discomfort. Hematology in fact is at the bedside as well. Reason For Visit: SSC Thrombocytosis Back pain Physical Exam Vital Signs: Temp Pulse Resp BP Pulse Ox 97.9 F 69 16 111/56 L 99 01/15/20 08:08 01/15/20 08:00 01/15/20 08:00 01/15/20 08:00 01/15/20 08:00 Intake & Output 01/14/20 01/15/20 01/16/20 06:59 06:59 06:59 Intake Total 2005 1540 Balance 2005 1540 Weight 77 kg 76.4 kg General appearance: PRESENT: cooperative, mild distress, well-developed Head exam: PRESENT: atraumatic, normocephalic Respiratory exam: PRESENT: symmetrical, unlabored. ABSENT: crackles, rales, rhonchi, tachypnea, wheezes Cardiovascular exam: PRESENT: RRR, +S1, +S2, systolic murmur - 1/6. ABSENT: bradycardia, diastolic murmur, irregular rhythm, tachycardia GI/Abdominal exam: PRESENT: normal bowel sounds, soft. ABSENT: distended, guarding, tenderness Rectal exam: PRESENT: deferred Gentrourinary exam: ABSENT: indwelling catheter Extremities exam: ABSENT: pedal edema Musculoskeletal exam: PRESENT: ambulatory, normal inspection. ABSENT: deformity, dislocation Neurological exam: PRESENT: alert, awake, oriented to person, oriented to place, oriented to time, oriented to situation, CN II-XII grossly intact. ABSENT: altered Psychiatric exam: PRESENT: flat affect. ABSENT: agitated, anxious Focused psych exam: ABSENT: delusional, paranoid, restlessness Skin exam: PRESENT: dry, normal color, warm Results Laboratory Results: 01/14/20 07:45 01/14/20 07:45 Impressions: Chest X-Ray 01/08/20 00:00 IMPRESSION: NO ACUTE RADIOGRAPHIC FINDING IN THE CHEST. Assessment and Plan - Diagnosis (1) Sickle cell pain crisis Is this a current diagnosis for this admission?: Yes (2) Sickle cell anemia Qualifiers: Sickle-cell associated disorders: with unspecified crisis Qualified Code(s): D57.00 - Hb-SS disease with crisis, unspecified; D57.0 - Hb-SS disease with crisis Is this a current diagnosis for this admission?: Yes (3) Thrombocytosis Is this a current diagnosis for this admission?: Yes (4) Back pain Qualifiers: Back pain location: low back pain Chronicity: unspecified Back pain laterality: bilateral Sciatica presence: without sciatica Qualified Code(s): M54.5 - Low back pain Is this a current diagnosis for this admission?: Yes (5) Leukocytosis Qualifiers: Leukocytosis type: unspecified Qualified Code(s): D72.829 - Elevated white blood cell count, unspecified Is this a current diagnosis for this admission?: Yes (6) Constipation Qualifiers: Constipation type: drug induced constipation Qualified Code(s): K59.03 - Drug induced constipation Is this a current diagnosis for this admission?: Yes (7) Depression with anxiety Is this a current diagnosis for this admission?: Yes (8) Elevated bilirubin Is this a current diagnosis for this admission?: Yes - Plan Summary Summary: Ms. Joyner is a 24 year old female with PMHx of sickle cell anemia, acute chest syndrome, DVT, opiate dependent chronic pain, depression and anxiety. She was admitted on 01/05/2020 for inpatient evaluation and treatment of sickle cell crisis. Prior to admission pt seen in the ED on several occasions regarding continued pain despite home interventions. Evaluation in the ED with negative CXR and benign UA. Pt recently returned from [place] (on 12/06/2019) where she lived for several months. She deneis recent illness. Dr. Baum, hematology, consulted and on board; pain treatment regimen/management as advised. Sickle cell pain crisis IVF continued at low rate. Monitor SCC labs every 2 days including (Hgb, retic count, tbili, and plt count) O2 sat greater than 95% on ambulating and at rest on room air. Hydroxyurea 1000 mg daily. Folic acid 1 mg daily. IV Benadryl and Zofran as needed for symptom management. Heating pad. Encouraged she continue with frequent ambulation, proper nutrition and frequent fluids po. Hematology on board, pain medication management as per their expertise. 01/14-pain continues to improve. Compared to previous visits the patient feels that she is approximately 60 to 70% recovered. Continue analgesia per hematology. Sickle cell anemia Hemoglobin 9.9 x1 unit PRBC 01/10/20. Pt reports 6 total PRBC transfusions in 2020 thus far (Including transfusion 01/10/20) Retic count 5.63 -> 16.34 -> 14.62 -> 9.86 Hematology on board. 01/14-no new laboratory studies today. We will recheck labs tomorrow. Back pain Pt with chronic back pain, increased in saeed of crisis Management as above. 01/14-continue K pad and analgesia Depression with anxiety Continue home dose Celexa and BuSpar. Elevated bilirubin Chronic. Appears baseline is 4-5 Total bili 8.7 -> 7.2 -> 5.8 -> 5.2 Continue to monitor, suspect will decrease as sickle cell crisis resolves 01/14-continuing to improve. As with other indices we will continue to monitor. Will avoid daily labs as this is not clinically essential at this time. Leukocytosis Resolved; likely secondary to acute inflammatory reaction. Patient denies symptoms to indicate infectious process. Imaging and UA benign. No indications for antibiotics at this time. 01/14-white blood cell count has been normal. Thrombocytosis Resolved. secondary to current sickle cell crisis PLT 484-> 328 Patient with history of DVT; Lovenox for prophylaxis. Treatment otherwise as discussed above 01/14-continue hydroxyurea 1 g in the morning and 500 mg in the evening Constipation Last bowel movement >3 days ago Suspect secondary to pain regimen Bowel regimen in place, as directed by Dr. Baum 01/14-patient reports bowel movement yesterday. Continue current regimen. Adjustments can be made based on bowel patterns. - Time Time Spent with patient: Less than 15 minutes Medications reviewed and adjusted accordingly: Yes Anticipated Discharge Disposition: Home, Self Care Anticipated Discharge Timeframe: within 72 hours
[2020-01-15] MEDS: TRAZODONE HCL 50 MG TABLET PO SCH (21:47)
[2020-01-15] MEDS ORDERED: HYDROMORPHONE HCL INJ/PF 2 MG/ML AMPULE ONE (23:41)
[2020-01-16] MEDS: HYDROMORPHONE HCL INJ/PF 2 MG/ML AMPULE IV PRN ×11 (02:02→23:57)
[2020-01-16] MEDS: DIPHENHYDRAMINE HCL 50 MG/ML VIAL IV PRN ×3 (07:03→19:44)
[2020-01-16] MEDS: NORMAL SALINE 1000 ML 1,000 ML IV PRN ×2 (07:10→19:44)
[2020-01-16] MEDS: PREGABALIN 100 MG CAPSULE PO SCH ×4 (08:17→17:15)
--- NOTE | 2020-01-16 09:30 | PDOC PROGRESS REPORT ---
Subjective Progress Note for:: 01/16/20 Subjective:: Sitting up in bed. Calling the nurse for pain medication. Otherwise stable. Reason For Visit: SSC Physical Exam Vital Signs: Temp Pulse Resp BP Pulse Ox 97.8 F 65 18 100/42 L 99 01/16/20 08:46 01/16/20 08:01 01/16/20 08:01 01/16/20 08:01 01/16/20 08:01 Intake & Output 01/15/20 01/16/20 01/17/20 06:59 06:59 06:59 Intake Total 1540 2960 Balance 1540 2960 Weight 76.4 kg 76.2 kg General appearance: PRESENT: no acute distress, well-developed Head exam: PRESENT: atraumatic, normocephalic Respiratory exam: PRESENT: clear to auscultation samaria, symmetrical, unlabored. ABSENT: rales, rhonchi, tachypnea, wheezes Cardiovascular exam: PRESENT: RRR, +S1, +S2. ABSENT: bradycardia, diastolic murmur, irregular rhythm, systolic murmur, tachycardia GI/Abdominal exam: PRESENT: normal bowel sounds, soft. ABSENT: tenderness Rectal exam: PRESENT: deferred Gentrourinary exam: ABSENT: indwelling catheter Extremities exam: ABSENT: pedal edema Musculoskeletal exam: PRESENT: ambulatory, normal inspection. ABSENT: deformity, dislocation Neurological exam: PRESENT: alert, awake, oriented to person, oriented to place, oriented to time, oriented to situation, CN II-XII grossly intact. ABSENT: altered Psychiatric exam: PRESENT: appropriate affect, other - Affect reflects her discomfort. ABSENT: agitated, anxious Focused psych exam: ABSENT: delusional, paranoid, restlessness Skin exam: PRESENT: dry, normal color, warm, other - Multiple tattoos. ABSENT: rash Results Laboratory Results: 01/14/20 07:45 01/14/20 07:45 Impressions: Chest X-Ray 01/08/20 00:00 IMPRESSION: NO ACUTE RADIOGRAPHIC FINDING IN THE CHEST. Assessment and Plan - Diagnosis (1) Sickle cell pain crisis Is this a current diagnosis for this admission?: Yes (2) Sickle cell anemia Qualifiers: Sickle-cell associated disorders: with unspecified crisis Qualified Code(s): D57.00 - Hb-SS disease with crisis, unspecified; D57.0 - Hb-SS disease with crisis Is this a current diagnosis for this admission?: Yes (3) Thrombocytosis Is this a current diagnosis for this admission?: Yes (4) Back pain Qualifiers: Back pain location: low back pain Chronicity: unspecified Back pain laterality: bilateral Sciatica presence: without sciatica Qualified Code(s): M54.5 - Low back pain Is this a current diagnosis for this admission?: Yes (5) Leukocytosis Qualifiers: Leukocytosis type: unspecified Qualified Code(s): D72.829 - Elevated white blood cell count, unspecified Is this a current diagnosis for this admission?: Yes (6) Constipation Qualifiers: Constipation type: drug induced constipation Qualified Code(s): K59.03 - Drug induced constipation Is this a current diagnosis for this admission?: Yes (7) Depression with anxiety Is this a current diagnosis for this admission?: Yes (8) Elevated bilirubin Is this a current diagnosis for this admission?: Yes - Plan Summary Summary: Ms. Joyner is a 24 year old female with PMHx of sickle cell anemia, acute chest syndrome, DVT, opiate dependent chronic pain, depression and anxiety. She was admitted on 01/05/2020 for inpatient evaluation and treatment of sickle cell crisis. Prior to admission pt seen in the ED on several occasions regarding continued pain despite home interventions. Evaluation in the ED with negative CXR and benign UA. Pt recently returned from [place] (on 12/06/2019) where she lived for several months. She deneis recent illness. Dr. Baum, hematology, consulted and on board; pain treatment regimen/management as advised. Sickle cell pain crisis IVF continued at low rate. Monitor SCC labs every 2 days including (Hgb, retic count, tbili, and plt count) O2 sat greater than 95% on ambulating and at rest on room air. Hydroxyurea 1000 mg daily. Folic acid 1 mg daily. IV Benadryl and Zofran as needed for symptom management. Heating pad. Encouraged she continue with frequent ambulation, proper nutrition and frequent fluids po. Hematology on board, pain medication management as per their expertise. 01/14-pain continues to improve. Compared to previous visits the patient feels that she is approximately 60 to 70% recovered. Continue analgesia per hematology. 01/16/2020-continue to encourage ambulation. K pad for back pain. Continue current analgesia regimen. Sickle cell anemia Hemoglobin 9.9 x1 unit PRBC 01/10/20. Pt reports 6 total PRBC transfusions in 2020 thus far (Including transfusion 01/10/20) Retic count 5.63 -> 16.34 -> 14.62 -> 9.86 Hematology on board. 01/14-no new laboratory studies today. We will recheck labs tomorrow. 01/16/2020-we will order blood work for today as well as tomorrow. Back pain Pt with chronic back pain, increased in saeed of crisis Management as above. 01/14-continue K pad and analgesia 01/16/2020-continue current analgesia regimen and K pad Depression with anxiety Continue home dose Celexa and BuSpar. Elevated bilirubin Chronic. Appears baseline is 4-5 Total bili 8.7 -> 7.2 -> 5.8 -> 5.2 Continue to monitor, suspect will decrease as sickle cell crisis resolves 01/14-continuing to improve. As with other indices we will continue to monitor. Will avoid daily labs as this is not clinically essential at this time. 01/16/2020-we will order laboratory studies for today and tomorrow Leukocytosis Resolved; likely secondary to acute inflammatory reaction. Patient denies symptoms to indicate infectious process. Imaging and UA benign. No indications for antibiotics at this time. 01/14-white blood cell count has been normal. 01/16/2020-blood work ordered for today and tomorrow Thrombocytosis Resolved. secondary to current sickle cell crisis PLT 484-> 328 Patient with history of DVT; Lovenox for prophylaxis. Treatment otherwise as discussed above 01/14-continue hydroxyurea 1 g in the morning and 500 mg in the evening 01/16/2020-blood work ordered for today and tomorrow Constipation Last bowel movement >3 days ago Suspect secondary to pain regimen Bowel regimen in place, as directed by Dr. Baum 01/14-patient reports bowel movement yesterday. Continue current regimen. Adjustments can be made based on bowel patterns. 01/16/2020-continue current regimen and monitor frequency of bowel movements. - Time Time Spent with patient: Less than 15 minutes Medications reviewed and adjusted accordingly: Yes Anticipated Discharge Disposition: Home, Self Care Anticipated Discharge Timeframe: within 48 hours
[2020-01-16] MEDS: CHOLECALCIFEROL (D3) 1,000 UNIT (25 MCG) TABLET PO SCH (10:37)
[2020-01-16] MEDS: BUSPIRONE HCL 10 MG TABLET PO SCH ×2 (10:37→17:41)
[2020-01-16] MEDS: FOLIC ACID 1 MG TABLET PO SCH (10:37)
[2020-01-16] MEDS: CITALOPRAM HYDROBROMIDE 20 MG TABLET PO SCH ×2 (10:37→21:57)
[2020-01-16] MEDS: DOCUSATE SODIUM 100 MG CAPSULE PO SCH (10:37)
[2020-01-16] MEDS: HYDROXYUREA 500 MG CAPSULE PO SCH ×2 (10:38→21:57)
[2020-01-16] MEDS: ENOXAPARIN SODIUM INJ 40 MG/0.4 ML DISP.SYRIN SUBCUT SCH (10:57)
[2020-01-16 11:21] LABS: ABSOLUTE RETICS # 0.256 10^6/uL (0.028-0.122); HEMATOCRIT 30.6 % (36.0-47.0); HEMOGLOBIN 10.7 g/dL (12.0-15.5); MEAN CORPUSCULAR HEMOGLOBIN 35.1 pg (27.0-33.4); MEAN CORPUSCULAR HGB CONC 34.9 g/dL (32.0-36.0); MEAN CORPUSCULAR VOLUME 101 fl (80-97); PLATELET COUNT 440 10^3/uL (150-450); RED BLOOD COUNT 3.04 10^6/uL (3.72-5.28); RED CELL DISTRIBUTION WIDTH 31.4 % (11.5-14.0); WHITE BLOOD COUNT 7.6 10^3/uL (4.0-10.5)
[2020-01-16 11:24] LABS: ANION GAP 7 (5-19); BILIRUBIN,DIRECT 0.5 mg/dL (0.0-0.4); BILIRUBIN,TOTAL 2.9 mg/dL (0.2-1.3); BLOOD UREA NITROGEN 9 mg/dL (7-20); CALCIUM 9.2 mg/dL (8.4-10.2); CARBON DIOXIDE 26 mmol/L (22-30); CHLORIDE 104 mmol/L (98-107); GLUCOSE 104 mg/dL (75-110); POTASSIUM 4.1 mmol/L (3.6-5.0)
[2020-01-16 11:47] LABS: ABSOLUTE LYMPHOCYTES# (MANUAL) 1.8 10^3/uL (0.5-4.7); ABSOLUTE MONOCYTES # (MANUAL) 0.2 10^3/uL (0.1-1.4); BASOPHILS % (MANUAL) 1 % (0-2); EOSINOPHILS % (MANUAL) 11 % (0-6); LYMPHOCYTES % (MANUAL) 24 % (13-45); MONOCYTES % (MANUAL) 3 % (3-13); NUCLEATED RED BLOOD CELLS 35 /100 WBC (0); SEGMENTED NEUTROPHILS % (MAN) 61 % (42-78); TOTAL CELLS COUNTED 100
[2020-01-16 11:52] LABS: ANISOCYTOSIS 4+; POLYCHROMASIA SLIGHT; TARGET CELLS SLIGHT
[2020-01-16 11:53] LABS: PLATELET COMMENT ADEQUATE
[2020-01-16] MEDS: TRAZODONE HCL 50 MG TABLET PO SCH (21:57)
[2020-01-17] MEDS: DIPHENHYDRAMINE HCL 50 MG/ML VIAL IV PRN ×4 (02:01→22:59)
[2020-01-17] MEDS: HYDROMORPHONE HCL INJ/PF 2 MG/ML AMPULE IV PRN ×10 (02:01→22:42)
[2020-01-17 06:06] LABS: ABSOLUTE RETICS # 0.216 10^6/uL (0.028-0.122); HEMATOCRIT 30.7 % (36.0-47.0); HEMOGLOBIN 10.6 g/dL (12.0-15.5); MEAN CORPUSCULAR HEMOGLOBIN 35.4 pg (27.0-33.4); MEAN CORPUSCULAR HGB CONC 34.7 g/dL (32.0-36.0); MEAN CORPUSCULAR VOLUME 102 fl (80-97); PLATELET COUNT 450 10^3/uL (150-450); RED BLOOD COUNT 3.01 10^6/uL (3.72-5.28); RED CELL DISTRIBUTION WIDTH 30.4 % (11.5-14.0); RETICULOCYTE COUNT (AUTO) 7.18 % (0.66-2.85); WHITE BLOOD COUNT 6.8 10^3/uL (4.0-10.5)
[2020-01-17 06:33] LABS: ALBUMIN 3.8 g/dL (3.5-5.0); ALKALINE PHOSPHATASE 97 U/L (38-126); ANION GAP 9 (5-19); ASPARTATE AMINO TRANSFERASE 32 U/L (14-36); BILIRUBIN,DIRECT 0.4 mg/dL (0.0-0.4); BILIRUBIN,TOTAL 2.7 mg/dL (0.2-1.3); BLOOD UREA NITROGEN 8 mg/dL (7-20); CARBON DIOXIDE 26 mmol/L (22-30); CHLORIDE 102 mmol/L (98-107); GLUCOSE 109 mg/dL (75-110); POTASSIUM 4.3 mmol/L (3.6-5.0); TOTAL PROTEIN 6.7 g/dL (6.3-8.2)
[2020-01-17 06:42] LABS: ABSOLUTE LYMPHOCYTES# (MANUAL) 2.7 10^3/uL (0.5-4.7); ABSOLUTE MONOCYTES # (MANUAL) 0.3 10^3/uL (0.1-1.4); BASOPHILS % (MANUAL) 3 % (0-2); EOSINOPHILS % (MANUAL) 3 % (0-6); LYMPHOCYTES % (MANUAL) 39 % (13-45); MONOCYTES % (MANUAL) 4 % (3-13); NUCLEATED RED BLOOD CELLS 2 /100 WBC (0); SEGMENTED NEUTROPHILS % (MAN) 51 % (42-78); TOTAL CELLS COUNTED 100
[2020-01-17 06:46] LABS: ANISOCYTOSIS 4+; BURR CELLS SLIGHT; OVALOCYTES 2+; POIKILOCYTOSIS 4+; POLYCHROMASIA 1+; SCHISTOCYTES 3+; SICKLE RED CELLS 3+; TARGET CELLS 2+; TEAR DROP CELLS 2+; TOXIC GRANULATION 1+
[2020-01-17 06:47] LABS: PLATELET COMMENT INCREASED
--- NOTE | 2020-01-17 07:38 | PDOC PROGRESS REPORT ---
Subjective Progress Note for:: 01/17/20 Subjective:: Patient is rocking back and forth in bed, crying. I cannot understand any of her answers today, but when asked if she would like for me to change anything, she responds "no." Nurses report that she had a BM yesterday and that she has not been wearing oxygen for the last few days. Reason For Visit: SSC Physical Exam Vital Signs: Temp Pulse Resp BP Pulse Ox 98.1 F 81 20 103/43 L 98 01/17/20 04:00 01/17/20 04:00 01/17/20 04:00 01/17/20 04:00 01/17/20 04:00 Intake & Output 01/16/20 01/17/20 01/18/20 06:59 06:59 06:59 Intake Total 2960 943 Balance 2960 943 Weight 76.2 kg 76.4 kg General appearance: PRESENT: mild distress Head exam: PRESENT: normocephalic Respiratory exam: PRESENT: unlabored Psychiatric exam: PRESENT: other - Crying Skin exam: PRESENT: normal color Results Laboratory Results: 01/17/20 05:49 01/17/20 05:49 01/16/20 01/16/20 01/17/20 10:49 10:49 05:49 WBC 7.6 RBC 3.04 L Hgb 10.7 L Hct 30.6 L MCV 101 H MCH 35.1 H MCHC 34.9 RDW 31.4 H Plt Count 440 Seg Neutrophils % Not Reportable Retic Count (auto) 8.40 H Sodium 136.7 L 137.1 Potassium 4.1 4.3 Chloride 104 102 Carbon Dioxide 26 26 Anion Gap 7 9 BUN 9 8 Creatinine 0.49 L 0.50 L Est GFR ( Amer) > 60 > 60 Glucose 104 109 Calcium 9.2 9.0 Total Bilirubin 2.9 H 2.7 H AST 32 Alkaline Phosphatase 97 Total Protein 6.7 Albumin 3.8 01/17/20 05:49 WBC 6.8 RBC 3.01 L Hgb 10.6 L Hct 30.7 L MCV 102 H MCH 35.4 H MCHC 34.7 RDW 30.4 H Plt Count 450 Seg Neutrophils % Not Reportable Retic Count (auto) 7.18 H Sodium Potassium Chloride Carbon Dioxide Anion Gap BUN Creatinine Est GFR ( Amer) Glucose Calcium Total Bilirubin AST Alkaline Phosphatase Total Protein Albumin Impressions: Chest X-Ray 01/08/20 00:00 IMPRESSION: NO ACUTE RADIOGRAPHIC FINDING IN THE CHEST. Assessment & Plan - Diagnosis (1) Sickle cell crisis Is this a current diagnosis for this admission?: Yes Plan: I will increase IVF to 120 cc/hour and I have strongly encouraged her to wear her oxygen all the time. I offered to increase her pain medications, but she declines. Will continue to monitor. - Time Time Spent with patient: Less than 15 minutes
[2020-01-17] MEDS: HYDROXYUREA 500 MG CAPSULE PO SCH ×2 (08:33→22:48)
[2020-01-17] MEDS: NORMAL SALINE 1000 ML 1,000 ML IV PRN ×3 (08:36→23:07)
[2020-01-17] MEDS: FOLIC ACID 1 MG TABLET PO SCH (10:43)
[2020-01-17] MEDS: BUSPIRONE HCL 10 MG TABLET PO SCH ×2 (10:43→17:49)
[2020-01-17] MEDS: CITALOPRAM HYDROBROMIDE 20 MG TABLET PO SCH ×2 (10:43→22:48)
[2020-01-17] MEDS: CHOLECALCIFEROL (D3) 1,000 UNIT (25 MCG) TABLET PO SCH (10:43)
[2020-01-17] MEDS: DOCUSATE SODIUM 100 MG CAPSULE PO SCH (10:44)
[2020-01-17] MEDS: PREGABALIN 100 MG CAPSULE PO SCH ×3 (10:45→17:48)
[2020-01-17] MEDS: ENOXAPARIN SODIUM INJ 40 MG/0.4 ML DISP.SYRIN SUBCUT SCH (10:45)
[2020-01-17] MEDS ORDERED: BACLOFEN 10 MG TABLET PO PRN (13:52)
--- NOTE | 2020-01-17 13:58 | PDOC PROGRESS REPORT ---
Subjective Progress Note for:: 01/17/20 Subjective:: Patient clearly in discomfort. States her back is much more painful today. She denies any straining or awkward movement. She states that on occasion her back will begin to hurt without precipitating event. Reason For Visit: [facility] [place] Physical Exam Vital Signs: Temp Pulse Resp BP Pulse Ox 98.1 F 81 20 103/43 L 98 01/17/20 04:00 01/17/20 04:00 01/17/20 04:00 01/17/20 04:00 01/17/20 04:00 Intake & Output 01/16/20 01/17/20 01/18/20 06:59 06:59 06:59 Intake Total 2960 943 Balance 2960 943 Weight 76.2 kg 76.4 kg General appearance: PRESENT: well-developed, other - Moderate distress Respiratory exam: PRESENT: clear to auscultation samaria, symmetrical, unlabored. ABSENT: rales, rhonchi, tachypnea, wheezes Cardiovascular exam: PRESENT: RRR, +S1, +S2. ABSENT: bradycardia, diastolic murmur, irregular rhythm, systolic murmur, tachycardia GI/Abdominal exam: PRESENT: normal bowel sounds, soft. ABSENT: distended, guarding, tenderness Rectal exam: PRESENT: deferred Gentrourinary exam: ABSENT: indwelling catheter Extremities exam: PRESENT: tenderness - Across the lumbar area. ABSENT: pedal edema Musculoskeletal exam: PRESENT: ambulatory. ABSENT: deformity, dislocation Neurological exam: PRESENT: alert, awake, oriented to person, oriented to place, oriented to time, oriented to situation, CN II-XII grossly intact. ABSENT: altered Psychiatric exam: PRESENT: appropriate affect - Affect reflects her discomfort. ABSENT: agitated, anxious Focused psych exam: ABSENT: delusional, paranoid, restlessness Skin exam: PRESENT: dry, normal color, warm. ABSENT: rash Results Laboratory Results: 01/17/20 05:49 01/17/20 05:49 01/17/20 01/17/20 05:49 05:49 WBC 6.8 RBC 3.01 L Hgb 10.6 L Hct 30.7 L MCV 102 H MCH 35.4 H MCHC 34.7 RDW 30.4 H Plt Count 450 Seg Neutrophils % Not Reportable Retic Count (auto) 7.18 H Sodium 137.1 Potassium 4.3 Chloride 102 Carbon Dioxide 26 Anion Gap 9 BUN 8 Creatinine 0.50 L Est GFR ( Amer) > 60 Glucose 109 Calcium 9.0 Total Bilirubin 2.7 H AST 32 Alkaline Phosphatase 97 Total Protein 6.7 Albumin 3.8 Impressions: Chest X-Ray 01/08/20 00:00 IMPRESSION: NO ACUTE RADIOGRAPHIC FINDING IN THE CHEST. Assessment and Plan - Diagnosis (1) Sickle cell pain crisis Is this a current diagnosis for this admission?: Yes (2) Sickle cell anemia Qualifiers: Sickle-cell associated disorders: with unspecified crisis Qualified Code(s): D57.00 - Hb-SS disease with crisis, unspecified; D57.0 - Hb-SS disease with crisis Is this a current diagnosis for this admission?: Yes (3) Thrombocytosis Is this a current diagnosis for this admission?: Yes (4) Back pain Qualifiers: Back pain location: low back pain Chronicity: unspecified Back pain laterality: bilateral Sciatica presence: without sciatica Qualified Code(s): M54.5 - Low back pain Is this a current diagnosis for this admission?: Yes (5) Leukocytosis Qualifiers: Leukocytosis type: unspecified Qualified Code(s): D72.829 - Elevated white blood cell count, unspecified Is this a current diagnosis for this admission?: Yes (6) Constipation Qualifiers: Constipation type: drug induced constipation Qualified Code(s): K59.03 - Drug induced constipation Is this a current diagnosis for this admission?: Yes (7) Depression with anxiety Is this a current diagnosis for this admission?: Yes (8) Elevated bilirubin Is this a current diagnosis for this admission?: Yes - Plan Summary Summary: Ms. Joyner is a 24 year old female with PMHx of sickle cell anemia, acute chest syndrome, DVT, opiate dependent chronic pain, depression and anxiety. She was admitted on 01/05/2020 for inpatient evaluation and treatment of sickle cell crisis. Prior to admission pt seen in the ED on several occasions regarding continued pain despite home interventions. Evaluation in the ED with negative CXR and benign UA. Pt recently returned from [place] (on 12/06/2019) where she lived for several months. She deneis recent illness. Dr. Baum, hematology, consulted and on board; pain treatment regimen/management as advised. Sickle cell pain crisis IVF continued at low rate. Monitor SCC labs every 2 days including (Hgb, retic count, tbili, and plt count) O2 sat greater than 95% on ambulating and at rest on room air. Hydroxyurea 1000 mg daily. Folic acid 1 mg daily. IV Benadryl and Zofran as needed for symptom management. Heating pad. Encouraged she continue with frequent ambulation, proper nutrition and frequent fluids po. Hematology on board, pain medication management as per their expertise. 01/14-pain continues to improve. Compared to previous visits the patient feels that she is approximately 60 to 70% recovered. Continue analgesia per hematology. 01/16/2020-continue to encourage ambulation. K pad for back pain. Continue current analgesia regimen. 01/17/2020-Marked increase in low back pain today. Please also see Dr. Russ's note. IV fluids were increased. Patient did not want additional pain medication. I told the patient I would add a muscle spasm medication for as needed use. Sickle cell anemia Hemoglobin 9.9 x1 unit PRBC 01/10/20. Pt reports 6 total PRBC transfusions in 2020 thus far (Including transfusion 01/10/20) Retic count 5.63 -> 16.34 -> 14.62 -> 9.86 Hematology on board. 01/14-no new laboratory studies today. We will recheck labs tomorrow. 01/16/2020-we will order blood work for today as well as tomorrow. 01/17/2020-hemoglobin, white blood cells and platelets stable. Retake count continues to slowly improve. Back pain Pt with chronic back pain, increased in saeed of crisis Management as above. 01/14-continue K pad and analgesia 01/16/2020-continue current analgesia regimen and K pad 01/17/2020-unsure of etiology. Patient states that this does happen on occasion. Antispasmodic ordered for as needed use. Depression with anxiety Continue home dose Celexa and BuSpar. Elevated bilirubin Chronic. Appears baseline is 4-5 Total bili 8.7 -> 7.2 -> 5.8 -> 5.2 Continue to monitor, suspect will decrease as sickle cell crisis resolves 01/14-continuing to improve. As with other indices we will continue to monitor. Will avoid daily labs as this is not clinically essential at this time. 01/16/2020-we will order laboratory studies for today and tomorrow 01/17/2020-bilirubin continues to slowly improve. Direct bili is normal. Recheck bilirubin tomorrow. Leukocytosis Resolved; likely secondary to acute inflammatory reaction. Patient denies symptoms to indicate infectious process. Imaging and UA benign. No indications for antibiotics at this time. 01/14-white blood cell count has been normal. 01/16/2020-blood work ordered for today and tomorrow 01/17/2020-white blood cell count normal Thrombocytosis Resolved. secondary to current sickle cell crisis PLT 484-> 328 Patient with history of DVT; Lovenox for prophylaxis. Treatment otherwise as discussed above 01/14-continue hydroxyurea 1 g in the morning and 500 mg in the evening 01/16/2020-blood work ordered for today and tomorrow 01/17/2020-resolved Constipation Last bowel movement >3 days ago Suspect secondary to pain regimen Bowel regimen in place, as directed by Dr. Baum 01/14-patient reports bowel movement yesterday. Continue current regimen. Adjustments can be made based on bowel patterns. 01/16/2020-continue current regimen and monitor frequency of bowel movements. 01/17/2020-current regimen seems to be effective. No changes. - Time Time Spent with patient: Less than 15 minutes Medications reviewed and adjusted accordingly: Yes Anticipated Discharge Disposition: Home, Self Care Anticipated Discharge Timeframe: within 72 hours
[2020-01-17] MEDS: TRAZODONE HCL 50 MG TABLET PO SCH (22:48)
[2020-01-18] MEDS: HYDROMORPHONE HCL INJ/PF 2 MG/ML AMPULE IV PRN ×12 (00:43→23:50)
[2020-01-18] MEDS: NORMAL SALINE 1000 ML 1,000 ML IV PRN ×3 (05:06→21:03)
[2020-01-18] MEDS: DIPHENHYDRAMINE HCL 50 MG/ML VIAL IV PRN ×4 (05:34→23:50)
[2020-01-18 06:14] LABS: ABSOLUTE RETICS # 0.164 10^6/uL (0.028-0.122); HEMATOCRIT 29.7 % (36.0-47.0); HEMOGLOBIN 10.5 g/dL (12.0-15.5); MEAN CORPUSCULAR HEMOGLOBIN 36.1 pg (27.0-33.4); MEAN CORPUSCULAR HGB CONC 35.4 g/dL (32.0-36.0); MEAN CORPUSCULAR VOLUME 102 fl (80-97); PLATELET COUNT 480 10^3/uL (150-450); RED BLOOD COUNT 2.91 10^6/uL (3.72-5.28); RED CELL DISTRIBUTION WIDTH 29.4 % (11.5-14.0); RETICULOCYTE COUNT (AUTO) 5.65 % (0.66-2.85); WHITE BLOOD COUNT 6.2 10^3/uL (4.0-10.5)
[2020-01-18 06:20] LABS: BILIRUBIN,DIRECT 0.4 mg/dL (0.0-0.4); BILIRUBIN,TOTAL 1.8 mg/dL (0.2-1.3)
[2020-01-18 06:35] LABS: ABSOLUTE LYMPHOCYTES# (MANUAL) 2.8 10^3/uL (0.5-4.7); ABSOLUTE MONOCYTES # (MANUAL) 0.7 10^3/uL (0.1-1.4); BASOPHILS % (MANUAL) 0 % (0-2); EOSINOPHILS % (MANUAL) 4 % (0-6); LYMPHOCYTES % (MANUAL) 45 % (13-45); MONOCYTES % (MANUAL) 12 % (3-13); NUCLEATED RED BLOOD CELLS 8 /100 WBC (0); SEGMENTED NEUTROPHILS % (MAN) 39 % (42-78); TOTAL CELLS COUNTED 100
[2020-01-18 06:36] LABS: ANISOCYTOSIS 4+; PLATELET CLUMPS PRESENT; PLATELET COMMENT INCREASED; POIKILOCYTOSIS 2+; POLYCHROMASIA SLIGHT; TARGET CELLS 2+
--- NOTE | 2020-01-18 08:10 | PDOC PROGRESS REPORT ---
Subjective Progress Note for:: 01/18/20 Subjective:: Patient still having considerable pain this morning. I discussed increasing her Dilaudid, we will do that this morning. Reason For Visit: [facility] [place] Vital Signs: Temp Pulse Resp BP Pulse Ox 97.8 F 82 16 124/80 100 01/18/20 08:00 01/18/20 08:00 01/18/20 08:00 01/18/20 08:00 01/18/20 08:00 Intake & Output 01/17/20 01/18/20 01/19/20 06:59 06:59 06:59 Intake Total 943 4163 Balance 943 4163 Weight 76.4 kg 76.5 kg General appearance: PRESENT: no acute distress, well-developed, well-nourished Head exam: PRESENT: atraumatic, normocephalic Eye exam: PRESENT: conjunctiva pink, EOMI, PERRLA. ABSENT: scleral icterus Ear exam: PRESENT: normal external ear exam Mouth exam: PRESENT: moist, tongue midline Neck exam: ABSENT: carotid bruit, JVD, lymphadenopathy, thyromegaly Respiratory exam: PRESENT: clear to auscultation samaria. ABSENT: rales, rhonchi, wheezes Cardiovascular exam: PRESENT: RRR. ABSENT: diastolic murmur, rubs, systolic murmur Pulses: PRESENT: normal dorsalis pedis pul Vascular exam: PRESENT: normal capillary refill GI/Abdominal exam: PRESENT: normal bowel sounds, soft. ABSENT: distended, guarding, mass, organolmegaly, rebound, tenderness Rectal exam: PRESENT: deferred Extremities exam: PRESENT: full ROM. ABSENT: calf tenderness, clubbing, pedal edema Neurological exam: PRESENT: alert, awake, oriented to person, oriented to place, oriented to time, oriented to situation, CN II-XII grossly intact. ABSENT: motor sensory deficit Psychiatric exam: PRESENT: appropriate affect, normal mood. ABSENT: homicidal ideation, suicidal ideation Skin exam: PRESENT: dry, intact, warm. ABSENT: cyanosis, rash Results Laboratory Results: 01/18/20 05:36 01/17/20 05:49 01/18/20 01/18/20 05:36 05:36 WBC 6.2 RBC 2.91 L Hgb 10.5 L Hct 29.7 L MCV 102 H MCH 36.1 H MCHC 35.4 RDW 29.4 H Plt Count 480 H Seg Neutrophils % Not Reportable Retic Count (auto) 5.65 H Total Bilirubin 1.8 H Impressions: Chest X-Ray 01/08/20 00:00 IMPRESSION: NO ACUTE RADIOGRAPHIC FINDING IN THE CHEST. Assessment & Plan - Diagnosis (1) Sickle cell crisis Is this a current diagnosis for this admission?: Yes Plan: Still fairly severe, likely secondary to her prolonged flight from [place]. She will improve over the next few days I believe. Continue with hydration, increase Dilaudid to 4 mg every 2 hours. 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 - Time Time Spent with patient: 35 or more minutes
[2020-01-18] MEDS: HYDROXYUREA 500 MG CAPSULE PO SCH ×2 (09:49→21:49)
[2020-01-18] MEDS: DOCUSATE SODIUM 100 MG CAPSULE PO SCH (09:49)
[2020-01-18] MEDS: BUSPIRONE HCL 10 MG TABLET PO SCH ×2 (09:49→17:47)
[2020-01-18] MEDS: FOLIC ACID 1 MG TABLET PO SCH (09:49)
[2020-01-18] MEDS: PREGABALIN 100 MG CAPSULE PO SCH ×4 (09:49→17:37)
[2020-01-18] MEDS: CHOLECALCIFEROL (D3) 1,000 UNIT (25 MCG) TABLET PO SCH (09:49)
[2020-01-18] MEDS: CITALOPRAM HYDROBROMIDE 20 MG TABLET PO SCH ×2 (09:49→21:49)
[2020-01-18] MEDS: ENOXAPARIN SODIUM INJ 40 MG/0.4 ML DISP.SYRIN SUBCUT SCH (09:53)
--- NOTE | 2020-01-18 18:38 | PDOC PROGRESS REPORT ---
Subjective Progress Note for:: 01/18/20 Subjective:: She is feeling well. Tolerating excellent oral intake. Pain is steadily improving. She has been walking several laps in hallways. Reason For Visit: [facility] Physical Exam Vital Signs: Temp Pulse Resp BP Pulse Ox 98.1 F 80 16 122/80 100 01/18/20 15:29 01/18/20 15:29 01/18/20 15:29 01/18/20 15:29 01/18/20 15:29 Intake & Output 01/17/20 01/18/20 01/19/20 06:59 06:59 06:59 Intake Total 943 4163 1700 Balance 943 4163 1700 Weight 76.4 kg 76.5 kg General appearance: PRESENT: no acute distress, cooperative Head exam: PRESENT: atraumatic Eye exam: ABSENT: scleral icterus Mouth exam: PRESENT: moist Throat exam: ABSENT: post pharyngeal erythema, tonsillar erythema Neck exam: ABSENT: JVD Respiratory exam: PRESENT: clear to auscultation samaria, unlabored. ABSENT: accessory muscle use Cardiovascular exam: PRESENT: RRR GI/Abdominal exam: PRESENT: normal bowel sounds, soft. ABSENT: tenderness Extremities exam: ABSENT: pedal edema Neurological exam: PRESENT: alert, awake, oriented to person, oriented to place, oriented to time, oriented to situation Psychiatric exam: PRESENT: appropriate affect Skin exam: ABSENT: rash Results Laboratory Results: 01/18/20 05:36 01/17/20 05:49 01/18/20 01/18/20 05:36 05:36 WBC 6.2 RBC 2.91 L Hgb 10.5 L Hct 29.7 L MCV 102 H MCH 36.1 H MCHC 35.4 RDW 29.4 H Plt Count 480 H Seg Neutrophils % Not Reportable Retic Count (auto) 5.65 H Total Bilirubin 1.8 H Impressions: Chest X-Ray 01/08/20 00:00 IMPRESSION: NO ACUTE RADIOGRAPHIC FINDING IN THE CHEST. 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 Hemolytic anemia type: other hemoglobinopathy Qualified Code(s): D58.2 - Other hemoglobinopathies Is this a current diagnosis for this admission?: Yes (4) Back pain Qualifiers: Back pain location: low back pain Chronicity: unspecified Back pain laterality: bilateral Sciatica presence: without sciatica Qualified Code(s): M54.5 - Low back pain Is this a current diagnosis for this admission?: Yes (5) Depression with anxiety Is this a current diagnosis for this admission?: Yes (6) Elevated bilirubin Is this a current diagnosis for this admission?: Yes (7) History of DVT (deep vein thrombosis) Is this a current diagnosis for this admission?: Yes (8) Intractable pain Is this a current diagnosis for this admission?: Yes (9) Vaso-occlusive sickle cell crisis Is this a current diagnosis for this admission?: Yes - Plan Summary Summary: Ms. Joyner is a 24 year old female with PMHx of sickle cell anemia, acute chest syndrome, DVT, opiate dependent chronic pain, depression and anxiety. She was admitted on 01/05/2020 for inpatient evaluation and treatment of sickle cell crisis. Prior to admission pt seen in the ED on several occasions regarding continued pain despite home interventions. Evaluation in the ED with negative CXR and benign UA. Pt recently returned from [place] (on 12/06/2019) where she lived for several months. She denied recent illness. Dr. Baum, hematology, consulted and on board; pain treatment regimen/management as advised. Sickle cell pain crisis: resolving. Retic count objectively steadily decreasing, as well as subjective pain. O2 sat greater than 95% on ambulating and at rest on room air. Hydroxyurea 1000 mg daily. Folic acid 1 mg daily. IV Benadryl and Zofran as needed for symptom management. Heating pad. Encouraged she continue with frequent ambulation, proper nutrition and frequent fluids po. Hematology on board, pain medication management as per their expertise. Depression with anxiety Continue home dose Celexa and BuSpar. Elevated bilirubin: Chronic. Appears baseline is 4-5. Total bili 8.7 -> 7.2 -> 5.8 -> 5. Decreasing as crisis resolves. Leukocytosis: Resolved; likely secondary to acute inflammatory reaction. Patient denies symptoms to indicate infectious process. Imaging and UA benign. No indications for antibiotics at this time. Thrombocytosis: Resolved. secondary to current sickle cell crisis history of DVT: continue Lovenox for prophylaxis. Constipation: resolved with bowel regimen - Time Time Spent with patient: 35 or more minutes Anticipated Discharge Disposition: Home, Self Care Anticipated Discharge Timeframe: within 48 hours
[2020-01-18] MEDS: TRAZODONE HCL 50 MG TABLET PO SCH (21:49)
[2020-01-19] MEDS: HYDROMORPHONE HCL INJ/PF 2 MG/ML AMPULE IV PRN ×7 (02:06→17:10)
[2020-01-19] MEDS: NORMAL SALINE 1000 ML 1,000 ML IV PRN ×2 (04:16→12:02)
[2020-01-19] MEDS ORDERED: HYDROMORPHONE HCL INJ/PF 2 MG/ML AMPULE ONE ×2 (06:51→09:05)
[2020-01-19] MEDS ORDERED: DIPHENHYDRAMINE HCL 50 MG/ML VIAL ONE (06:51)
[2020-01-19] MEDS: DIPHENHYDRAMINE HCL 50 MG/ML VIAL IV PRN ×2 (06:57→13:00)
--- NOTE | 2020-01-19 08:25 | PDOC PROGRESS REPORT ---
Subjective Progress Note for:: 01/19/20 Subjective:: Patient doing better today. Feels ready for DC home. I will be sending her pain medication Dilaudid 2 mg every 4 hours to [facility] Reason For Visit: [facility] Physical Exam Vital Signs: Temp Pulse Resp BP Pulse Ox 97.5 F 77 16 120/62 100 01/19/20 07:47 01/19/20 07:47 01/19/20 07:47 01/19/20 07:47 01/19/20 07:47 Intake & Output 01/18/20 01/19/20 01/20/20 06:59 06:59 06:59 Intake Total 4163 3910 Balance 4163 3910 Weight 76.5 kg 76.7 kg General appearance: PRESENT: no acute distress, well-developed, well-nourished Head exam: PRESENT: atraumatic, normocephalic Eye exam: PRESENT: conjunctiva pink, EOMI, PERRLA. ABSENT: scleral icterus Ear exam: PRESENT: normal external ear exam Mouth exam: PRESENT: moist, tongue midline Neck exam: ABSENT: carotid bruit, JVD, lymphadenopathy, thyromegaly Respiratory exam: PRESENT: clear to auscultation samaria. ABSENT: rales, rhonchi, wheezes Cardiovascular exam: PRESENT: RRR. ABSENT: diastolic murmur, rubs, systolic murmur Pulses: PRESENT: normal dorsalis pedis pul Vascular exam: PRESENT: normal capillary refill GI/Abdominal exam: PRESENT: normal bowel sounds, soft. ABSENT: distended, guarding, mass, organolmegaly, rebound, tenderness Rectal exam: PRESENT: deferred Extremities exam: PRESENT: full ROM. ABSENT: calf tenderness, clubbing, pedal edema Neurological exam: PRESENT: alert, awake, oriented to person, oriented to place, oriented to time, oriented to situation, CN II-XII grossly intact. ABSENT: motor sensory deficit Psychiatric exam: PRESENT: appropriate affect, normal mood. ABSENT: homicidal i deation, suicidal ideation Skin exam: PRESENT: dry, intact, warm. ABSENT: cyanosis, rash Results Laboratory Results: 01/18/20 05:36 01/17/20 05:49 Impressions: Chest X-Ray 01/08/20 00:00 IMPRESSION: NO ACUTE RADIOGRAPHIC FINDING IN THE CHEST. 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
[2020-01-19] MEDS: HYDROXYUREA 500 MG CAPSULE PO SCH (09:22)
[2020-01-19] MEDS: CHOLECALCIFEROL (D3) 1,000 UNIT (25 MCG) TABLET PO SCH (09:23)
[2020-01-19] MEDS: CITALOPRAM HYDROBROMIDE 20 MG TABLET PO SCH (09:23)
[2020-01-19] MEDS: DOCUSATE SODIUM 100 MG CAPSULE PO SCH (09:23)
[2020-01-19] MEDS: BUSPIRONE HCL 10 MG TABLET PO SCH (09:23)
[2020-01-19] MEDS: FOLIC ACID 1 MG TABLET PO SCH (09:23)
[2020-01-19] MEDS: PREGABALIN 100 MG CAPSULE PO SCH ×2 (09:32→13:04)
[2020-01-19] MEDS: ENOXAPARIN SODIUM INJ 40 MG/0.4 ML DISP.SYRIN SUBCUT SCH (09:32)
[2020-01-19 15:11] VITALS: BP 107/89
--- NOTE | 2020-01-19 16:32 | PDOC DISCHARGE SUMMARY ---
Impression - Admit/DC Date/PCP Admission Date/Primary Care Provider: 01/07/20 08:51 Discharge Date: 01/19/20 - Discharge Diagnosis (1) Sickle cell pain crisis Is this a current diagnosis for this admission?: Yes (2) Elevated liver function tests Is this a current diagnosis for this admission?: Yes (3) Anemia Is this a current diagnosis for this admission?: Yes (4) Back pain Is this a current diagnosis for this admission?: Yes (5) Depression with anxiety Is this a current diagnosis for this admission?: Yes (6) Elevated bilirubin Is this a current diagnosis for this admission?: Yes (7) History of DVT (deep vein thrombosis) Is this a current diagnosis for this admission?: Yes (8) Intractable pain Is this a current diagnosis for this admission?: Yes (9) Vaso-occlusive sickle cell crisis Is this a current diagnosis for this admission?: Yes - Assessment Summary: Ms. Middleton is a 24 year old female with PMHx of sickle cell anemia, acute chest syndrome, DVT, opiate dependent chronic pain, depression and anxiety. She was admitted on 01/05/2020 for inpatient evaluation and treatment of sickle cell crisis. Prior to admission pt seen in the ED on several occasions regarding continued pain despite home interventions. Evaluation in the ED with negative CXR and benign UA. Sickle cell pain crisis: resolved with IVF and IV pain medications. She had a negative infectious work up. She recently returned from [place] (on 12/06/2019) where she lived for several months. She denied recent illness. Dr. Moreira, hematology, was consulted. Leukocytosis: Resolved; likely secondary to acute inflammatory reaction. Patient denies symptoms to indicate infectious process. Imaging and UA benign. No indications for antibiotics. Thrombocytosis: Resolved. secondary to sickle cell crisis. Constipation: resolved with bowel regimen - Additional Information Resuscitation Status: Full Code Discharge Diet: Regular Discharge Activity: Activity As Tolerated Referrals: JOIE MOREIRA MD [ACTIVE STAFF] - 02/16/20 10:30 am (CALL THE OFFICE FOR ANY QUESTIONS AND CONCERNS.) Home Medications: Buspirone HCl [Buspar 10 mg Tablet] 5 mg PO BID 01/05/20 Cholecalciferol (Vitamin D3) [Vitamin D3 1000 Unit Tablet] 1,000 unit PO DAILY 01/05/20 Citalopram Hydrobromide [Celexa 20 mg Tablet] 20 mg PO Q12 01/05/20 Diphenhydramine HCl [Benadryl] 25 mg PO Q6HP PRN 01/05/20 Folic Acid [Folvite 1 mg Tablet] 1 mg PO DAILY 01/05/20 Glutamine [Endari] 3 packet PO BID 01/05/20 Hydromorphone HCl [Dilaudid 2 mg Tablet] 2 mg PO Q6HP PRN 01/05/20 Hydroxyurea [Hydrea 500 mg Capsule] 1,000 mg PO QAM 01/05/20 Hydroxyurea [Hydrea 500 mg Capsule] 500 mg PO QHS 01/05/20 Ibuprofen [Motrin 400 mg Tablet] 400 mg PO Q8 01/05/20 Pregabalin [Lyrica 75 mg Capsule] 75 mg PO Q8HP PRN 01/05/20 Trazodone HCl [Desyrel 50 mg Tablet] 50 mg PO QHS 01/05/20 History of Present Illiness History of Present Illness: CASSANDRA MIDDLETON is a 24 year old female Physical Exam Vital Signs: Temp Pulse Resp BP Pulse Ox 97.9 F 80 17 113/52 L 99 01/19/20 11:44 01/19/20 11:44 01/19/20 11:44 01/19/20 11:44 01/19/20 11:44 Intake & Output 01/18/20 01/19/20 01/20/20 06:59 06:59 06:59 Intake Total 4163 3910 1211 Balance 4163 3910 1211 Weight 76.5 kg 76.7 kg Results Laboratory Results: WBC 6.2 10^3/uL (4.0-10.5) 01/18/20 05:36 RBC 2.91 10^6/uL (3.72-5.28) L 01/18/20 05:36 Hgb 10.5 g/dL (12.0-15.5) L 01/18/20 05:36 Hct 29.7 % (36.0-47.0) L 01/18/20 05:36 MCV 102 fl (80-97) H 01/18/20 05:36 MCH 36.1 pg (27.0-33.4) H 01/18/20 05:36 MCHC 35.4 g/dL (32.0-36.0) 01/18/20 05:36 RDW 29.4 % (11.5-14.0) H 01/18/20 05:36 Plt Count 480 10^3/uL (150-450) H 01/18/20 05:36 Lymph % (Auto) Not Reportable 01/18/20 05:36 [place] % (Auto) Not Reportable 01/18/20 05:36 Eos % (Auto) Not Reportable 01/18/20 05:36 Baso % (Auto) Not Reportable 01/18/20 05:36 Reticulocyte # 0.164 10^6/uL (0.028-0.122) H 01/18/20 05:36 Absolute Neuts (auto) Not Reportable 01/18/20 05:36 Absolute Lymphs (auto) Not Reportable 01/18/20 05:36 Absolute Monos (auto) Not Reportable 01/18/20 05:36 Absolute Eos (auto) Not Reportable 01/18/20 05:36 Absolute Basos (auto) Not Reportable 01/18/20 05:36 Total Counted 100 01/18/20 05:36 Seg Neutrophils % Not Reportable 01/18/20 05:36 Seg Neuts % (Manual) 39 % (42-78) L 01/18/20 05:36 Lymphocytes % (Manual) 45 % (13-45) 01/18/20 05:36 Monocytes % (Manual) 12 % (3-13) 01/18/20 05:36 Eosinophils % (Manual) 4 % (0-6) 01/18/20 05:36 Basophils % (Manual) 0 % (0-2) 01/18/20 05:36 Abs Neuts (Manual) 2.4 10^3/uL (1.7-8.2) 01/18/20 05:36 Abs Lymphs (Manual) 2.8 10^3/uL (0.5-4.7) 01/18/20 05:36 Abs Monocytes (Manual) 0.7 10^3/uL (0.1-1.4) 01/18/20 05:36 Absolute Eos (Manual) 0.2 10^3/uL (0.0-0.6) 01/18/20 05:36 Abs Basophils (Manual) 0.0 10^3/uL (0.0-0.2) 01/18/20 05:36 Nucleated RBCs 8 /100 WBC (0) 01/18/20 05:36 Toxic Granulation 1+ 01/17/20 05:49 Toxic Vacuolation PRESENT 01/08/20 05:40 Clumped Platelets PRESENT 01/18/20 05:36 Platelet Comment INCREASED 01/18/20 05:36 Polychromasia SLIGHT 01/18/20 05:36 Poikilocytosis 2+ 01/18/20 05:36 Basophilic Stippling PRESENT 01/08/20 05:40 Anisocytosis 4+ 01/18/20 05:36 Macrocytosis 1+ 01/16/20 10:49 Sickle Cells 3+ 01/17/20 05:49 Target Cells 2+ 01/18/20 05:36 Tear Drop Cells 2+ 01/17/20 05:49 Ovalocytes 2+ 01/17/20 05:49 [place]alla Cells SLIGHT 01/17/20 05:49 Schistocytes 3+ 01/17/20 05:49 Retic Count (auto) 5.65 % (0.66-2.85) H 01/18/20 05:36 Sodium 137.1 mmol/L (137-145) 01/17/20 05:49 Potassium 4.3 mmol/L (3.6-5.0) 01/17/20 05:49 Chloride 102 mmol/L (98-107) 01/17/20 05:49 Carbon Dioxide 26 mmol/L (22-30) 01/17/20 05:49 Anion Gap 9 (5-19) 01/17/20 05:49 BUN 8 mg/dL (7-20) 01/17/20 05:49 Creatinine 0.50 mg/dL (0.52-1.25) L 01/17/20 05:49 Est GFR ( Amer) > 60 (>60) 01/17/20 05:49 Est GFR (MDRD) Non-Af > 60 (>60) 01/17/20 05:49 Glucose 109 mg/dL (75-110) 01/17/20 05:49 Calcium 9.0 mg/dL (8.4-10.2) 01/17/20 05:49 Total Bilirubin 1.8 mg/dL (0.2-1.3) H 01/18/20 05:36 Direct Bilirubin 0.4 mg/dL (0.0-0.4) 01/18/20 05:36 Neonat Total Bilirubin Not Reportable 01/17/20 05:49 Neonat Direct Bilirubin Not Reportable 01/17/20 05:49 Neonat Indirect Bili Not Reportable 01/17/20 05:49 AST 32 U/L (14-36) 01/17/20 05:49 ALT 19 U/L (<35) 01/17/20 05:49 Alkaline Phosphatase 97 U/L (38-126) 01/17/20 05:49 Total Protein 6.7 g/dL (6.3-8.2) 01/17/20 05:49 Albumin 3.8 g/dL (3.5-5.0) 01/17/20 05:49 Beta HCG, Quant < 2.39 mIU/mL (0.0-6.15) 01/05/20 08:15 Total Beta HCG NEGATIVE (NEGATIVE) 01/05/20 08:15 Urine Color YELLOW 01/08/20 15:45 Urine Appearance SLIGHTLY-CLOUDY 01/08/20 15:45 Urine pH 6.0 (5.0-9.0) 01/08/20 15:45 Ur Specific Mears 1.011 01/08/20 15:45 Urine Protein NEGATIVE mg/dL (NEGATIVE) 01/08/20 15:45 Urine Glucose (UA) NEGATIVE mg/dL (NEGATIVE) 01/08/20 15:45 Urine Ketones NEGATIVE mg/dL (NEGATIVE) 01/08/20 15:45 Urine Blood NEGATIVE (NEGATIVE) 01/08/20 15:45 Urine Nitrite NEGATIVE (NEGATIVE) 01/05/20 08:55 Urine Nitrite (Reflex) NEGATIVE (NEGATIVE) 01/08/20 15:45 Urine Bilirubin NEGATIVE (NEGATIVE) 01/08/20 15:45 Urine Urobilinogen 4.0 mg/dL (<2.0) H 01/08/20 15:45 Ur Leukocyte Esterase NEGATIVE (NEGATIVE) 01/05/20 08:55 Leukocyte Esterase Rfl TRACE (NEGATIVE) H 01/08/20 15:45 Urine WBC (Auto) 1 /HPF 01/05/20 08:55 Urine RBC (Auto) 1 /HPF 01/08/20 15:45 Urine WBC (Reflex) 2 /HPF 01/08/20 15:45 Squamous Epi Cells Auto 11 /HPF 01/08/20 15:45 Urine Mucus (Auto) RARE /LPF 01/08/20 15:45 Urine Ascorbic Acid NEGATIVE (NEGATIVE) 01/08/20 15:45 Urine Opiates Screen UNCONFIRMED POSITIVE 01/05/20 08:55 Urine Methadone Screen NEGATIVE 01/05/20 08:55 Ur Barbiturates Screen NEGATIVE 01/05/20 08:55 Ur Phencyclidine Scrn NEGATIVE 01/05/20 08:55 Ur Amphetamines Screen NEGATIVE 01/05/20 08:55 U Benzodiazepines Scrn NEGATIVE 01/05/20 08:55 Urine Cocaine Screen NEGATIVE 01/05/20 08:55 U Marijuana (THC) Screen NEGATIVE 01/05/20 08:55 Slides for Path Review PATHOLOGIST REVIEWED 01/11/20 23:04 Blood Type O POSITIVE 01/10/20 10:10 Antibody Screen NEGATIVE 01/10/20 10:10 Crossmatch See Detail 01/10/20 10:10 Impressions: Chest X-Ray 01/05/20 00:00 IMPRESSION: NO ACUTE FINDINGS. Chest X-Ray 01/08/20 00:00 IMPRESSION: NO ACUTE RADIOGRAPHIC FINDING IN THE CHEST. Stroke Is this a Stroke Patient?: No Acute Heart Failure Is this a Heart Failure Patient?: No
[2020-01-19] MEDS ORDERED: INFLUENZA QUAD (6MOS+) 2020-21 VAC 0.5 ML SYR IM ONE (17:00)
== END 2020-01-19 18:19 | disposition home or self-care (01) | DRG 812 ==
LOC: ER 19:16 → EH 01-05 13:32 → 4W 01-05 15:22 → 4N 01-05 21:57 → OBSVTOIN 01-07 08:51 → 2N 01-10 11:55
PROVIDERS: ADMIT Internal Medicine; ATTEND Hospitalist
PROC: 30233N1 Transfusion of Nonautologous Red Blood Cells into Peripheral Vein, Percutaneous Approach (ICD-10-PCS; principal; 2020-01-10)
PROC: 3E02340 Introduction of Influenza Vaccine into Muscle, Percutaneous Approach (ICD-10-PCS; 2020-01-19)
DX: D57.819 Other sickle-cell disorders with crisis, unspecified (principal); R79.89 Other specified abnormal findings of blood chemistry; F41.1 Generalized anxiety disorder; M54.5 Low back pain; D47.3 Essential (hemorrhagic) thrombocythemia; F32.9 Major depressive disorder, single episode, unspecified; K59.03 Drug induced constipation; T50.905A Adverse effect of unspecified drugs, medicaments and biological substances, initial encounter; Z23 Encounter for immunization; Z86.718 Personal history of other venous thrombosis and embolism; Z79.899 Other long term (current) drug therapy; Z87.891 Personal history of nicotine dependence; Z88.6 Allergy status to analgesic agent; Z91.018 Allergy to other foods
CPT/HCPCS: 36415; 36430; 71045; 71046; 80048; 80053; 80076; 80307; 81001; 82247; 82248; 84702; 85025; 85027; 85045; 86850; 86900; 86901; 86920; 90471; 90686; 96361; 96374; 96375; 96376; 99285; G0008; G0378; J1170; J1200; J1642; J1650; J1885; J2405; J3490; J7030; P9016

== ENCOUNTER 2020-01-23 09:46 | Emergency (ER) | payer SELFPAY ==
[2020-01-23] MEDS ORDERED: HYDROMORPHONE HCL INJ/PF 2 MG/ML AMPULE IV ONE ×4 (11:29→18:57)
[2020-01-23] MEDS ORDERED: DIPHENHYDRAMINE HCL 50 MG/ML VIAL IV ONE ×2 (11:29→17:23)
[2020-01-23] MEDS ORDERED: NORMAL SALINE 1000 ML 1,000 ML IV ONE ×2 (11:29→18:10)
--- NOTE | 2020-01-23 11:31 | ER Document Report ---
ED Medical Screen (RME) - General Stated Complaint: SICKLE CELL CRISIS Time Seen by Provider: 01/23/20 11:27 Mode of Arrival: Ambulatory Notes: Patient presents complaining of low back pain. Patient does have a history of sickle cell disease. Patient denies any urinary symptoms, fever, nausea or vomiting. Patient reports taking her Dilaudid at home around 645 without any improvement of her symptoms. I have greeted and performed a rapid initial assessment of this patient. A comprehensive ED assessment and evaluation of the patient, analysis of test results and completion of the medical decision making process will be conducted by additional ED providers. TRAVEL OUTSIDE OF THE [place] IN LAST 30 DAYS: No - Related Data Allergies/Adverse Reactions: morphine Allergy (Severe, Verified 01/23/20 11:30) RASH,SWELLING jacob peppers Adverse Reaction (Severe, Uncoded 01/23/20 11:30) throat closes Past Medical History - Social History Family history: Reviewed & Not Pertinent, Other - Pt was adopted. Does not know family history - Past Medical History Cardiac Medical History: Reports: Hx DVT - RUE s/p port placement Denies: Hx Hypercholesterolemia Pulmonary Medical History: Reports: Hx Asthma, Hx Bronchitis, Hx Pneumonia Neurological Medical History: Denies: Hx Parkinson's Disease Endocrine Medical History: Denies: Hx Diabetes Mellitus Type 1, Hx Diabetes Mellitus Type 2 Renal/ Medical History: Denies: Hx Peritoneal Dialysis GI Medical History: Musculoskeltal Medical History: Reports Hx Musculoskeletal Trauma Psychiatric Medical History: Reports: Hx Anxiety, Hx Depression Past Surgical History: Reports: Hx Cholecystectomy - 06/28/2015, Hx Vascular Surgery - port put in December,, Other - Port-A-Cath in right upper chest - Immunizations Immunizations up to date: Yes Hx Diphtheria, Pertussis, Tetanus Vaccination: Yes Physical Exam - Vital signs Vitals: Temp Pulse Resp BP Pulse Ox 98.1 F 110 H 16 116/70 99 01/23/20 09:51 01/23/20 09:51 01/23/20 09:51 01/23/20 09:51 01/23/20 09:51 - Back Back: CVA tenderness - bilateral Course - Vital Signs Vital signs: Temp Pulse Resp BP Pulse Ox 98.1 F 110 H 16 116/70 99 01/23/20 09:51 01/23/20 09:51 01/23/20 09:51 01/23/20 09:51 01/23/20 09:51
[2020-01-23 12:11] LABS: APPEARANCE,URINE SLIGHTLY-CLOUDY; BILIRUBIN,URINE NEGATIVE (NEGATIVE); COLOR,URINE YELLOW; GLUCOSE, URINE NEGATIVE (NEGATIVE); KETONES,URINE NEGATIVE (NEGATIVE); LEUKOCYTE ESTERASE,URINE NEGATIVE (NEGATIVE); NITRITE,URINE NEGATIVE (NEGATIVE); PROTEIN,URINE NEGATIVE (NEGATIVE); URINE SPECIFIC GRAVITY 1.014; UROBILINOGEN,URINE NEGATIVE mg/dL (<2.0)
[2020-01-23 15:03] LABS: ABSOLUTE BASOPHILS # (AUTO) 0.1 10^3/uL (0.0-0.2); ABSOLUTE MONOCYTES (AUTO) 1.1 10^3/uL (0.1-1.4); ABSOLUTE NEUT (AUTO) 8.8 10^3/uL (1.7-8.2); ABSOLUTE RETICS # 0.046 10^6/uL (0.028-0.122); BASOPHILS % (AUTO) 0.4 % (0-2); EOSINOPHILS % (AUTO) 0.2 % (0-6); HEMATOCRIT 33.3 % (36.0-47.0); HEMOGLOBIN 11.9 g/dL (12.0-15.5); LYMPHOCYTES % (AUTO) 23.3 % (13-45); MEAN CORPUSCULAR HEMOGLOBIN 36.1 pg (27.0-33.4); MEAN CORPUSCULAR HGB CONC 35.7 g/dL (32.0-36.0); MEAN CORPUSCULAR VOLUME 101 fl (80-97); MONOCYTES % (AUTO) 8.8 % (3-13); PLATELET COUNT 680 10^3/uL (150-450); RED BLOOD COUNT 3.29 10^6/uL (3.72-5.28); RED CELL DISTRIBUTION WIDTH 27.7 % (11.5-14.0); SEGMENTED NEUTROPHILS % (AUTO) 67.3 % (42-78); TOTAL CELLS COUNTED % (AUTO) 100 %
[2020-01-23 15:13] LABS: ALBUMIN 4.8 g/dL (3.5-5.0); ALKALINE PHOSPHATASE 104 U/L (38-126); ANION GAP 14 (5-19); ASPARTATE AMINO TRANSFERASE 44 U/L (14-36); BILIRUBIN,DIRECT 0.3 mg/dL (0.0-0.4); BILIRUBIN,TOTAL 3.6 mg/dL (0.2-1.3); BLOOD UREA NITROGEN 6 mg/dL (7-20); CALCIUM 9.5 mg/dL (8.4-10.2); CARBON DIOXIDE 22 mmol/L (22-30); CHLORIDE 107 mmol/L (98-107); GLUCOSE 101 mg/dL (75-110); POTASSIUM 3.3 mmol/L (3.6-5.0); TOTAL PROTEIN 8.3 g/dL (6.3-8.2)
[2020-01-23 15:24] LABS: ANISOCYTOSIS 4+; PAPPENHEIMER BODIES PRESENT
[2020-01-23 15:25] LABS: PLATELET COMMENT INCREASED; PLATELET LARGE PRESENT; TARGET CELLS 1+
[2020-01-23] MEDS ORDERED: ONDANSETRON HCL INJ/PF 4 MG/2 ML SDV IV ONE ×2 (15:32→18:58)
--- NOTE | 2020-01-23 19:35 | ER Document Report ---
Entered by CRISSY STERN SCRIBE 01/23/20 1326 Acting as scribe for:QUIN PETE MD ED General - General Chief Complaint: Sickle Cell Crisis Stated Complaint: SICKLE CELL CRISIS Time Seen by Provider: 01/23/20 11:27 Mode of Arrival: Ambulatory Information source: Patient Notes: This 24 year old female patient with sickle cell disease presents to the emergency department today with complaints of a sickle cell crisis. Patient reports that this sickle cell crisis began last night, it is in her lower back which is where her normal crisis are. Patient states she takes 2 mg Dilaudid at home for pain. Pain states she has tried that but it has not helped this pain today. Patient denies any recent illnesses, fevers, nausea, vomiting, diarrhea, urinary symptoms, chest pain, dehydration, or rashes. TRAVEL OUTSIDE OF THE [place] IN LAST 30 DAYS: No - Related Data Allergies/Adverse Reactions: morphine Allergy (Severe, Verified 01/23/20 11:30) RASH,SWELLING jacob peppers Adverse Reaction (Severe, Uncoded 01/23/20 11:30) throat closes Past Medical History - General Information source: Patient - Social History Smoking Status: Never Smoker Cigarette use (# per day): No Chew tobacco use (# tins/day): No Frequency of alcohol use: None Drug Abuse: None Lives with: Family Family History: Reviewed & Not Pertinent, Other - Sickle cell disease and sickle cell trait, asthma - Past Medical History Cardiac Medical History: Reports: Hx DVT - RUE s/p port placement Pulmonary Medical History: Reports: Hx Asthma, Hx Bronchitis, Hx Pneumonia Neurological Medical History: Endocrine Medical History: Renal/ Medical History: GI Medical History: Musculoskeletal Medical History: Reports Hx Musculoskeletal Trauma Psychiatric Medical History: Reports: Hx Anxiety, Hx Depression Past Surgical History: Reports: Hx Cholecystectomy - 06/28/2015, Hx Vascular Surgery - port put in December,, Other - Port-A-Cath in right upper chest - Immunizations Immunizations up to date: Yes Hx Diphtheria, Pertussis, Tetanus Vaccination: Yes Review of Systems - Review of Systems Notes: sickle cell crisis Constitutional: No symptoms reported EENT: No symptoms reported Cardiovascular: No symptoms reported Respiratory: No symptoms reported Gastrointestinal: No symptoms reported Genitourinary: No symptoms reported Female Genitourinary: No symptoms reported Musculoskeletal: See HPI, Back pain Skin: No symptoms reported Hematologic/Lymphatic: No symptoms reported Neurological/Psychological: No symptoms reported -: Yes All other systems reviewed and negative Physical Exam - Vital signs Vitals: Temp Pulse Resp BP Pulse Ox 98.1 F 110 H 16 116/70 99 01/23/20 09:51 01/23/20 09:51 01/23/20 09:51 01/23/20 09:51 01/23/20 09:51 - Notes Notes: Physical Exam: General: Alert, appears uncomfortable. HEENT: Normocephalic. Atraumatic. PERRL. Extraocular movements intact. Oropharynx clear. Neck: Supple. Non-tender. Respiratory: No respiratory distress. Clear and equal breath sounds bilaterally. Port anterior chest. Cardiovascular: Regular rate and rhythm. Abdominal: Normal Inspection. Non-tender. No distension. Normal Bowel Sounds. Back: Lower back tenderness to palpation. No gross abnormalities. Extremities: Moves all four extremities. Upper extremities: Normal inspection. Normal ROM. Lower extremities: Normal inspection. No edema. Normal ROM. Neurological: Normal cognition. AAOx4. Normal speech. Psychological: Normal affect. Normal Mood. Skin: Warm. Dry. Normal color. Course - Re-evaluation Re-evalutation: 01/23/20 19:26 Patient reports that she is feeling better. Patient is drinking p.o. water as well as eating crackers at this time without any nausea or vomiting. Patient has received 4 courses of IV Dilaudid while in the department today. Patient has received 2 L of IV fluids. And received IV Zofran for any nausea associated with medications or pain. 01/23/20 19:34 Earlier discussed with patient admission to hospital if pain was not managed. Patient as per the fourth dosing of pain medication which she received in after that she states she is feels better pain less taking p.o. well and feels ready to go home. Discussed with patient that she needed any prescriptions and she told me she did not. Also discussed with patient following up with the permaculture contractor Dr. Riya victor for follow-up within a few days patient stated she has an appointment on February 15 and that she was going to keep that date and not go in sooner. I did advise that she should once been in the ED with sickle cell crisis pain that she should try to get in sooner. - Vital Signs Vital signs: Temp Pulse Resp BP Pulse Ox 98.1 F 110 H 16 116/70 99 01/23/20 09:51 01/23/20 09:51 01/23/20 09:51 01/23/20 09:51 01/23/20 09:51 01/23/20 19:27 Vital signs have remained stable. - Laboratory Result Diagrams: 01/23/20 14:30 01/23/20 14:30 Laboratory results interpreted by me: 01/23/20 01/23/20 01/23/20 11:40 14:30 14:30 WBC 13.0 H RBC 3.29 L Hgb 11.9 L Hct 33.3 L MCV 101 H MCH 36.1 H RDW 27.7 H Plt Count 680 H Absolute Neuts (auto) 8.8 H Potassium 3.3 L BUN 6 L Creatinine 0.51 L Total Bilirubin 3.6 H AST 44 H Total Protein 8.3 H Urine Ascorbic Acid 40 H 01/23/20 19:27 Patient laboratories are consistent with patient having sickle cell crisis patient's bilirubin is 3.6 white blood cell count 13 hemoglobin 11.9. 01/23/20 14:30 01/23/20 14:30 MCV 101 fl (80-97) H 01/23/20 14:30 MCH 36.1 pg (27.0-33.4) H 01/23/20 14:30 MCHC 35.7 g/dL (32.0-36.0) 01/23/20 14:30 RDW 27.7 % (11.5-14.0) H 01/23/20 14:30 Seg Neutrophils % 67.3 % (42-78) 01/23/20 14:30 Retic Count (auto) 1.40 % (0.66-2.85) 01/23/20 14:30 Chloride 107 mmol/L (98-107) 01/23/20 14:30 Carbon Dioxide 22 mmol/L (22-30) 01/23/20 14:30 Anion Gap 14 (5-19) 01/23/20 14:30 Est GFR ( Amer) > 60 (>60) 01/23/20 14:30 Glucose 101 mg/dL (75-110) 01/23/20 14:30 Calcium 9.5 mg/dL (8.4-10.2) 01/23/20 14:30 Total Bilirubin 3.6 mg/dL (0.2-1.3) H 01/23/20 14:30 AST 44 U/L (14-36) H 01/23/20 14:30 Alkaline Phosphatase 104 U/L (38-126) 01/23/20 14:30 Total Protein 8.3 g/dL (6.3-8.2) H 01/23/20 14:30 Albumin 4.8 g/dL (3.5-5.0) 01/23/20 14:30 Serum HCG, Qual NEGATIVE (NEGATIVE) 01/23/20 14:30 Urine Color YELLOW 01/23/20 11:40 Urine Appearance SLIGHTLY-CLOUDY 01/23/20 11:40 Urine pH 6.0 (5.0-9.0) 01/23/20 11:40 Ur Specific [place] 1.014 01/23/20 11:40 Urine Protein NEGATIVE mg/dL (NEGATIVE) 01/23/20 11:40 Urine Glucose (UA) NEGATIVE mg/dL (NEGATIVE) 01/23/20 11:40 Urine Ketones NEGATIVE mg/dL (NEGATIVE) 01/23/20 11:40 Urine Blood NEGATIVE (NEGATIVE) 01/23/20 11:40 Urine Nitrite NEGATIVE (NEGATIVE) 01/23/20 11:40 Ur Leukocyte Esterase NEGATIVE (NEGATIVE) 01/23/20 11:40 Urine WBC (Auto) 1 /HPF 01/23/20 11:40 Urine RBC (Auto) 0 /HPF 01/23/20 11:40 01/23/20 19:29 Patient's retake count is 1.4 within the normal range. - Diagnostic Test Radiology reviewed: Image reviewed, Reports reviewed Discharge - Discharge Clinical Impression: Sickle cell pain crisis, Vaso-occlusive sickle cell crisis, Hyperbilirubinemia Condition: Good Disposition: HOME, SELF-CARE Additional Instructions: Sickle Cell Crisis You have "sickle cell crisis." Sickle cell disease is caused by abnormal hemoglobin. This hemoglobin can deform red blood cells into a sickle shape. These abnormal blood cells can block blood vessels. This causes the pain of sickle cell crisis. Sickle cell crisis can occur any time. But attacks are more likely with acute infection, dehydration, or altitude change. A crisis usually causes pain in the legs, back, abdomen, and chest. Sometimes the pain may ease and return later. The usual treatment is oxygen, pain medication, IV fluids, and treatment of infection. Attacks may take a couple of days to resolve. Return if the pain becomes more severe, or if there are new symptoms. Recommend follow-up with Dr. Riya victor within 1 to 2 days. I personally performed the services described in the documentation, reviewed and edited the documentation which was dictated to the scribe in my presence, and it accurately records my words and actions.
[2020-01-23 21:01] VITALS: BP 108/62
== END 2020-01-23 20:59 | disposition home or self-care (01) ==
LOC: ER 09:46
DX: D57.00 Hb-SS disease with crisis, unspecified (principal); M54.9 Dorsalgia, unspecified; E80.7 Disorder of bilirubin metabolism, unspecified; J45.909 Unspecified asthma, uncomplicated; Z79.891 Long term (current) use of opiate analgesic; Z88.6 Allergy status to analgesic agent; Z88.5 Allergy status to narcotic agent
CPT/HCPCS: 36591; 96376; 99284; 96361; 96374; 96375; 36415; 84703; 85025; 85045; 80053; 81001; J1200; J1170; J2405; J7030; J1642

== ENCOUNTER 2020-01-24 08:55 | Inpatient (IN) | payer MEDICAID, OTHER ==
[2020-01-24] MEDS ORDERED: HYDROMORPHONE HCL INJ/PF 2 MG/ML AMPULE IV ONE ×2 (09:58→11:39)
[2020-01-24] MEDS ORDERED: ONDANSETRON HCL INJ/PF 4 MG/2 ML SDV IV ONE (09:58)
[2020-01-24] MEDS ORDERED: DIPHENHYDRAMINE HCL 50 MG/ML VIAL IV ONE ×2 (09:59→11:39)
[2020-01-24] MEDS ORDERED: NORMAL SALINE 1000 ML 1,000 ML IV ONE (09:59)
--- NOTE | 2020-01-24 10:05 | ER Document Report ---
ED General - General Chief Complaint: Sickle Cell Crisis Stated Complaint: SICKLE CELL PAIN Time Seen by Provider: 01/24/20 09:40 Primary Care Provider: JOIE BAUM MD [Primary Care Provider] - Follow up as needed TRAVEL OUTSIDE OF THE [place] IN LAST 30 DAYS: No - HPI Notes: Chief complaint: Back pain/sickle cell crisis History of present illness: Ms. Joyner is a 24 year old female with PMHx of sickle cell anemia, acute chest syndrome, DVT, opiate dependent chronic pain, depression and anxiety seen in the emergency department yesterday by Dr. Art Contreras for treatment of sickle cell vaso-occlusive crisis now returning with continued pain. Her pain is primarily in her lower back which is usual location of her vaso-occlusive pain. Review of the record shows that she received a total of 4 doses of Dilaudid in the emergency department intravenously yesterday and apparently admission was recommended for further pain management patient declined at that time. She now says she is unable to deal with pain at home. She currently denies any fever, chills, nausea, vomiting, chest pain or dysuria. She is regularly followed by Dr. Baum. Review of local records also indicates that this patient was previously admitted to the hospitalist service earlier this month for vaso-occlusive crisis. Home Medications: Buspirone HCl [Buspar 10 mg Tablet] 5 mg PO BID 01/05/20 Cholecalciferol (Vitamin D3) [Vitamin D3 1000 Unit Tablet] 1,000 unit PO DAILY 01/05/20 Citalopram Hydrobromide [Celexa 20 mg Tablet] 20 mg PO Q12 01/05/20 Diphenhydramine HCl [Benadryl] 25 mg PO Q6HP PRN 01/05/20 Folic Acid [Folvite 1 mg Tablet] 1 mg PO DAILY 01/05/20 Glutamine [Endari] 3 packet PO BID 01/05/20 Hydromorphone HCl [Dilaudid 2 mg Tablet] 2 mg PO Q6HP PRN 01/05/20 Hydroxyurea [Hydrea 500 mg Capsule] 1,000 mg PO QAM 01/05/20 Hydroxyurea [Hydrea 500 mg Capsule] 500 mg PO QHS 01/05/20 Ibuprofen [Motrin 400 mg Tablet] 400 mg PO Q8 01/05/20 Pregabalin [Lyrica 75 mg Capsule] 75 mg PO Q8HP PRN 01/05/20 Trazodone HCl [Desyrel 50 mg Tablet] 50 mg PO QHS 01/05/20 - Related Data Allergies/Adverse Reactions: morphine Allergy (Severe, Verified 01/23/20 11:30) RASH,SWELLING jacob peppers Adverse Reaction (Severe, Uncoded 01/23/20 11:30) throat closes Past Medical History - General Information source: Patient, [facility] Records - Social History Smoking Status: Former Smoker Family History: Reviewed & Not Pertinent, Other - Sickle cell disease and sickle cell trait, asthma - Past Medical History Cardiac Medical History: Reports: Hx DVT - RUE s/p port placement Denies: Hx Hypercholesterolemia Pulmonary Medical History: Reports: Hx Asthma, Hx Bronchitis, Hx Pneumonia Neurological Medical History: Denies: Hx Parkinson's Disease Endocrine Medical History: Denies: Hx Diabetes Mellitus Type 1, Hx Diabetes Mellitus Type 2 Renal/ Medical History: Denies: Hx Peritoneal Dialysis GI Medical History: Musculoskeletal Medical History: Reports Hx Musculoskeletal Trauma Psychiatric Medical History: Reports: Hx Anxiety, Hx Depression - and anxiety Past Surgical History: Reports: Hx Cholecystectomy - 06/28/2015, Hx Vascular [place]ud[place] rgery - port put in December,, Other - Port-A-Cath in right upper chest - Immunizations Immunizations up to date: Yes Hx Diphtheria, Pertussis, Tetanus Vaccination: Yes Review of Systems - Review of Systems Notes: Constitutional: Negative for fever. HENT: Negative for sore throat. Eyes: Negative for visual changes. Cardiovascular: Negative for chest pain. Respiratory: Negative for shortness of breath. Gastrointestinal: Negative for abdominal pain, vomiting or diarrhea. Genitourinary: Negative for dysuria. Last menses 2 weeks ago normal. Musculoskeletal: As per HPI. Skin: Negative for rash. Neurological: Negative for headaches, focal weakness or numbness. 10 point ROS negative except as marked above and in HPI. Physical Exam - Vital signs Vitals: Temp Pulse Resp BP Pulse Ox 98.3 F 82 18 116/61 97 01/24/20 08:59 01/24/20 08:59 01/24/20 08:59 01/24/20 08:59 01/24/20 08:59 - Notes Notes: GENERAL: Well-developed well-nourished female approximately stated age rocking back and forth appearing in moderate discomfort. SKIN: Good turgor no rashes. HEAD: Normocephalic atraumatic. EYES: PERRLA. EOMI. pale with mild scleral icterus. EARS: CANALS AND TMS CLEAR. NOSE: CLEAR. MOUTH: Moist mucosa. Good dentition. No stridor or edema. No drooling. NECK: Supple. No masses or thyromegaly. No adenopathy. Carotids 2+ without bruits. No JVD. BACK: Symmetrical with mild diffuse tenderness. CHEST: Respirations unlabored. Breath sounds clear and symmetrical. HEART: Regular rhythm. No murmur gallop or rub. ABDOMEN: Soft nontender without masses, organomegaly or rebound. Bowel sounds normally active. No bruits. GENITALIA: Deferred. EXTREMITIES: No edema. No calf tenderness. Cap refill less than 1.5 seconds. Dorsalis pedis and posterior tibial pulses 3+ and symmetrical. NEUROLOGICAL: GCS 15. Alert and oriented x3. Normal gait. Fluent speech. Cranial nerves II through XII intact. Sensorimotor and cerebellar normal. Normal tone. PSYCHIATRIC: Appropriate affect. Course - Re-evaluation Re-evalutation: 01/24/20 14:39 Patient received multiple doses of IV Dilaudid here and insists that her pain is not adequately controlled. She wants to be admitted. I have reviewed all of her labs and they are consistent with previous baseline. Case was discussed with admitting hospitalist Dr. Fermin who is not willing to admit the patient until we have consulted with her manufacturing accountant Dr. Baum. - Vital Signs Vital signs: Temp Pulse Resp BP Pulse Ox 98.3 F 82 18 116/61 97 01/24/20 08:59 01/24/20 08:59 01/24/20 08:59 01/24/20 08:59 01/24/20 08:59 - Laboratory Result Diagrams: 01/24/20 12:10 01/24/20 12:10 Laboratory results interpreted by me: 01/24/20 01/24/20 01/24/20 12:10 12:10 13:50 WBC 11.2 H RBC 3.02 L Hgb 10.8 L Hct 30.4 L MCV 101 H MCH 35.8 H RDW 27.2 H Plt Count 635 H Baso % (Auto) 2.1 H Chloride 114 H Carbon Dioxide 21 L Creatinine 0.51 L Total Bilirubin 3.2 H Urine Urobilinogen 2.0 H Discharge - Discharge Clinical Impression: Sickle cell vaso-occlusive crisis Disposition: ADMITTED OBSERVATION Admitting Provider: Patricia (Hospitalist) Referrals: JOIE BAUM MD [Primary Care Provider] - Follow up as needed
--- NOTE | 2020-01-24 10:50 | RADIOLOGY REPORT (SQ) ---
EXAM DESCRIPTION: CHEST SINGLE VIEW IMAGES COMPLETED DATE/TIME: 01/24/2020 10:33 am REASON FOR STUDY: sickle cell COMPARISON: 01/08/2020 EXAM PARAMETERS: NUMBER OF VIEWS: One view. TECHNIQUE: Single frontal radiographic view of the chest acquired. RADIATION DOSE: NA LIMITATIONS: None. FINDINGS: LUNGS AND PLEURA: No opacities, masses or pneumothorax. No pleural effusion. MEDIASTINUM AND HILAR STRUCTURES: No masses. Contour normal. HEART AND VASCULAR STRUCTURES: Heart normal in size. Normal vasculature. BONES: No acute findings. HARDWARE: [id number] is in place. OTHER: No other significant finding. IMPRESSION: NO ACUTE RADIOGRAPHIC FINDING IN THE CHEST. TECHNICAL DOCUMENTATION: JOB ID: [id number] [employer] (formerly [employer])- All Rights Reserved Reading location - IP/workstation name: [email or web address]
[2020-01-24 12:25] LABS: ABSOLUTE BASOPHILS # (AUTO) 0.2 10^3/uL (0.0-0.2); ABSOLUTE LYMPHOCYTES (AUTO) 2.3 10^3/uL (0.5-4.7); ABSOLUTE MONOCYTES (AUTO) 0.8 10^3/uL (0.1-1.4); ABSOLUTE NEUT (AUTO) 7.8 10^3/uL (1.7-8.2); ABSOLUTE RETICS # 0.035 10^6/uL (0.028-0.122); BASOPHILS % (AUTO) 2.1 % (0-2); EOSINOPHILS % (AUTO) 0.4 % (0-6); HEMATOCRIT 30.4 % (36.0-47.0); HEMOGLOBIN 10.8 g/dL (12.0-15.5); LYMPHOCYTES % (AUTO) 20.8 % (13-45); MEAN CORPUSCULAR HEMOGLOBIN 35.8 pg (27.0-33.4); MEAN CORPUSCULAR HGB CONC 35.5 g/dL (32.0-36.0); MEAN CORPUSCULAR VOLUME 101 fl (80-97); PLATELET COUNT 635 10^3/uL (150-450); RED BLOOD COUNT 3.02 10^6/uL (3.72-5.28); RED CELL DISTRIBUTION WIDTH 27.2 % (11.5-14.0); RETICULOCYTE COUNT (AUTO) 1.16 % (0.66-2.85); SEGMENTED NEUTROPHILS % (AUTO) 69.7 % (42-78); TOTAL CELLS COUNTED % (AUTO) 100 %; WHITE BLOOD COUNT 11.2 10^3/uL (4.0-10.5)
[2020-01-24 12:50] LABS: ALBUMIN 3.7 g/dL (3.5-5.0); ALKALINE PHOSPHATASE 107 U/L (38-126); ANION GAP 9 (5-19); ASPARTATE AMINO TRANSFERASE 32 U/L (14-36); BILIRUBIN,DIRECT 0.4 mg/dL (0.0-0.4); BILIRUBIN,TOTAL 3.2 mg/dL (0.2-1.3); BLOOD UREA NITROGEN 8 mg/dL (7-20); CALCIUM 8.9 mg/dL (8.4-10.2); CARBON DIOXIDE 21 mmol/L (22-30); CHLORIDE 114 mmol/L (98-107); GLUCOSE 97 mg/dL (75-110); POTASSIUM 3.7 mmol/L (3.6-5.0); TOTAL PROTEIN 6.8 g/dL (6.3-8.2)
[2020-01-24 12:56] LABS: ANISOCYTOSIS 3+; OVALOCYTES 1+; POIKILOCYTOSIS 2+; SCHISTOCYTES 1+; SICKLE RED CELLS SLIGHT; STOMATOCYTES 1+; TARGET CELLS 2+; TEAR DROP CELLS SLIGHT
[2020-01-24 12:57] LABS: PLATELET COMMENT INCREASED
[2020-01-24] MEDS: HYDROMORPHONE HCL INJ/PF 2 MG/ML AMPULE IV PRN ×5 (13:44→22:52)
[2020-01-24 14:09] LABS: APPEARANCE,URINE CLEAR; BILIRUBIN,URINE NEGATIVE (NEGATIVE); COLOR,URINE YELLOW; GLUCOSE, URINE NEGATIVE (NEGATIVE); KETONES,URINE NEGATIVE (NEGATIVE); PROTEIN,URINE NEGATIVE (NEGATIVE); URINE SPECIFIC GRAVITY 1.011
[2020-01-24 14:25] LABS: URINE AMPHETAMINES SCREEN NEGATIVE; URINE BARBITURATES SCREEN NEGATIVE; URINE BENZODIAZEPINES SCREEN NEGATIVE; URINE COCAINE SCREEN NEGATIVE; URINE MARIJUANA (THC) SCREEN NEGATIVE; URINE METHADONE SCREEN NEGATIVE; URINE PHENCYCLIDINE SCREEN NEGATIVE
[2020-01-24] MEDS ORDERED: ACETAMINOPHEN 325 MG TABLET PO PRN (15:11)
[2020-01-24] MEDS ORDERED: BUSPIRONE HCL 10 MG TABLET PO ONE (15:21)
[2020-01-24] MEDS ORDERED: HYDROMORPHONE HCL INJ/PF 2 MG/ML AMPULE IV SCH (15:30)
--- NOTE | 2020-01-24 15:35 | PDOC H&P ---
History of Present Illness Admission Date/PCP: JOIE MOREIRA MD Patient complains of: Came in with complaints of back pain History of Present Illness: CASSANDRA MIDDLETON is a 24 year old female with history of sickle cell anemia with multiple admissions with complaints of severe back pain recently in the hospital for 14 days discharged on of this month came back yesterday to the ER given IV Dilaudid and was discharged came back again today with complaints of severe back pain. Lab work within normal limits. Patient received 90 tablets of 2 mg of Dilaudid on . As per the patient hemodialysis is not helping. Medical consult was called for admission for admission, further management. Patient is quite upset and refused physical examination. Past Medical History Cardiac Medical History: Reports: DVT - RUE s/p port placement Denies: Hyperlipidema Pulmonary Medical History: Reports: Asthma, Bronchitis, Pneumonia Neurological Medical History: Endocrine Medical History: Denies: Diabetes Mellitus Type 1, Diabetes Mellitus Type 2 Renal/ Medical History: Malignancy Medical History: Reports: None GI Medical History: Reports: None Musculoskeltal Medical History: Reports: None Psychiatric Medical History: Reports: None, Depression - and anxiety Hematology: Reports: Anemia, Sickle Cell Disease Denies: Bleeding Tendencies Infectious Medical History: Reports: None Past Surgical History Past Surgical History: Reports: Cholecystectomy - 06/28/2015, Vascular Surgery - port put in December,, Other - Port-A-Cath in right upper chest Social History Smoking Status: Former Smoker Electronic Cigarette use?: No Frequency of Alcohol Use: Social Hx Recreational Drug Use: No Drugs: None Hx Prescription Drug Abuse: No - Advance Directive Resuscitation Status: Full Code Family History Family History: Reviewed & Not Pertinent, Other - Sickle cell disease and sickle cell trait, asthma Parental Family History Reviewed: No Children Family History Reviewed: No Sibling(s) Family History Reviewed.: No Medication/Allergy Home Medications: Buspirone HCl [Buspar 10 mg Tablet] 5 mg PO BID 01/05/20 Cholecalciferol (Vitamin D3) [Vitamin D3 1000 Unit Tablet] 1,000 unit PO DAILY 01/05/20 Citalopram Hydrobromide [Celexa 20 mg Tablet] 20 mg PO Q12 01/05/20 Diphenhydramine HCl [Benadryl] 25 mg PO Q6HP PRN 01/05/20 Folic Acid [Folvite 1 mg Tablet] 1 mg PO DAILY 01/05/20 Glutamine [Endari] 3 packet PO BID 01/05/20 Hydromorphone HCl [Dilaudid 2 mg Tablet] 2 mg PO Q6HP PRN 01/05/20 Hydroxyurea [Hydrea 500 mg Capsule] 1,000 mg PO QAM 01/05/20 Hydroxyurea [Hydrea 500 mg Capsule] 500 mg PO QHS 01/05/20 Ibuprofen [Motrin 400 mg Tablet] 400 mg PO Q8 01/05/20 Pregabalin [Lyrica 75 mg Capsule] 75 mg PO Q8HP PRN 01/05/20 Trazodone HCl [Desyrel 50 mg Tablet] 50 mg PO QHS 01/05/20 Allergies/Adverse Reactions: morphine Allergy (Severe, Verified 01/23/20 11:30) RASH,SWELLING jacob peppers Adverse Reaction (Severe, Uncoded 01/23/20 11:30) throat closes Review of Systems Constitutional: ABSENT: fatigue, fever(s), headache(s), night sweats, weakness Eyes: ABSENT: visual disturbances Ears: ABSENT: hearing changes Cardiovascular: ABSENT: chest pain, dyspnea on exertion, edema, orthropnea, palpitations Respiratory: ABSENT: cough, hemoptysis Gastrointestinal: PRESENT: coffee ground emesis, dysphagia. ABSENT: melena, nausea Genitourinary: ABSENT: dysuria, hematuria Musculoskeletal: PRESENT: back pain. ABSENT: joint swelling Neurological: ABSENT: abnormal gait, abnormal speech, confusion, dizziness, focal weakness, syncope Psychiatric: ABSENT: anxiety, depression, homidical ideation, suicidal ideation Endocrine: ABSENT: cold intolerance, heat intolerance, polydipsia, polyuria Physical Exam Vital Signs: Temp Pulse Resp BP Pulse Ox 98.3 F 82 18 116/61 97 01/24/20 08:59 01/24/20 08:59 01/24/20 08:59 01/24/20 08:59 01/24/20 08:59 Intake & Output 01/23/20 01/24/20 01/25/20 06:59 06:59 06:59 Intake Total 1000 Balance 1000 Weight 72.7 kg General appearance: PRESENT: no acute distress, other - Patient refused physical exam.. ABSENT: cooperative Results Laboratory Results: 01/24/20 12:10 01/24/20 12:10 01/24/20 01/24/20 01/24/20 12:10 12:10 13:50 WBC 11.2 H RBC 3.02 L Hgb 10.8 L Hct 30.4 L MCV 101 H MCH 35.8 H MCHC 35.5 RDW 27.2 H Plt Count 635 H Seg Neutrophils % 69.7 Retic Count (auto) 1.16 Sodium 143.5 Potassium 3.7 Chloride 114 H Carbon Dioxide 21 L Anion Gap 9 BUN 8 Creatinine 0.51 L Est GFR ( Amer) > 60 Glucose 97 Calcium 8.9 Total Bilirubin 3.2 H AST 32 Alkaline Phosphatase 107 Total Protein 6.8 Albumin 3.7 Urine Color YELLOW Urine Appearance CLEAR Urine pH 6.0 Ur Specific [place] 1.011 Urine Protein NEGATIVE Urine Glucose (UA) NEGATIVE Urine Ketones NEGATIVE Urine Blood NEGATIVE Impressions: Chest X-Ray 01/24/20 10:02 IMPRESSION: NO ACUTE RADIOGRAPHIC FINDING IN THE CHEST. Assessment and Plan - Diagnosis (1) Intractable pain Is this a current diagnosis for this admission?: Yes Plan: 01/24/2020-patient is going to be admitted to [facility] with a diagnosis of intractable back pain secondary to sickle cell anemia. Sickle cell crisis is unlikely. Patient is refused to go home with p.o. Dilaudid. Requesting IV Dilaudid and hospital admission. GI prophylaxis DVT prophylaxis initiated. Darted on IV fluids normal saline at 125 cc/h. Reticulocyte count is 1.16, bilirubin is 3.2 significant improvement compared to the previous labs. (2) Chronic, continuous use of opioids Is this a current diagnosis for this admission?: Yes Plan: 01/24/2020-patient has chronic opioid dependency. As per the patient Dilaudid 2 mg every 6 hours as needed is not helping at home. Patient is demanding IV Dilaudid during the hospital stay. Counseling was provided about decreasing the opioid dependency. 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 Stable. 12 surgically - Time Anticipated Discharge Disposition: Home, Self Care Anticipated Discharge Timeframe: within 72 hours
[2020-01-24] MEDS: NORMAL SALINE 1000 ML 1,000 ML IV PRN (15:42)
[2020-01-24] MEDS ORDERED: POLYETHYLENE GLYCOL 3350 POWDER 17 GM/1 PACKET PO PRN (17:56)
[2020-01-24] MEDS ORDERED: CITALOPRAM HYDROBROMIDE 20 MG TABLET PO SCH (18:00)
[2020-01-24] MEDS: PROMETHAZINE HCL INJ 25 MG/1 ML VIAL IV PRN (18:32)
[2020-01-24] MEDS: DIPHENHYDRAMINE HCL 50 MG/ML VIAL IV PRN (18:32)
[2020-01-24] MEDS: CITALOPRAM HYDROBROMIDE 20 MG TABLET PO SCH (22:48)
[2020-01-24] MEDS: HYDROXYUREA 500 MG CAPSULE PO SCH (22:48)
[2020-01-25] MEDS: NORMAL SALINE 1000 ML 1,000 ML IV PRN ×3 (00:45→23:20)
[2020-01-25] MEDS: DIPHENHYDRAMINE HCL 50 MG/ML VIAL IV PRN ×4 (00:45→21:17)
[2020-01-25] MEDS: PROMETHAZINE HCL INJ 25 MG/1 ML VIAL IV PRN ×3 (00:45→15:20)
[2020-01-25] MEDS: HYDROMORPHONE HCL INJ/PF 2 MG/ML AMPULE IV PRN ×11 (00:52→23:20)
[2020-01-25] MEDS: PANTOPRAZOLE SODIUM 40 MG TABLET.DR PO SCH (05:31)
[2020-01-25 06:00] LABS: ABSOLUTE BASOPHILS # (AUTO) 0.2 10^3/uL (0.0-0.2); ABSOLUTE EOSINOPHILS # (AUTO) 0.2 10^3/uL (0.0-0.6); ABSOLUTE MONOCYTES (AUTO) 0.8 10^3/uL (0.1-1.4); ABSOLUTE NEUT (AUTO) 5.4 10^3/uL (1.7-8.2); BASOPHILS % (AUTO) 1.6 % (0-2); EOSINOPHILS % (AUTO) 2.3 % (0-6); HEMATOCRIT 28.1 % (36.0-47.0); HEMOGLOBIN 10.3 g/dL (12.0-15.5); LYMPHOCYTES % (AUTO) 37.5 % (13-45); MEAN CORPUSCULAR HEMOGLOBIN 37.3 pg (27.0-33.4); MEAN CORPUSCULAR HGB CONC 36.7 g/dL (32.0-36.0); MEAN CORPUSCULAR VOLUME 102 fl (80-97); PLATELET COUNT 587 10^3/uL (150-450); RED BLOOD COUNT 2.77 10^6/uL (3.72-5.28); RED CELL DISTRIBUTION WIDTH 26.4 % (11.5-14.0); SEGMENTED NEUTROPHILS % (AUTO) 50.6 % (42-78); TOTAL CELLS COUNTED % (AUTO) 100 %; WHITE BLOOD COUNT 10.6 10^3/uL (4.0-10.5)
[2020-01-25 06:20] LABS: ALBUMIN 3.8 g/dL (3.5-5.0); ALKALINE PHOSPHATASE 83 U/L (38-126); ANION GAP 9 (5-19); ASPARTATE AMINO TRANSFERASE 29 U/L (14-36); BILIRUBIN,DIRECT 0.3 mg/dL (0.0-0.4); BILIRUBIN,TOTAL 3.5 mg/dL (0.2-1.3); BLOOD UREA NITROGEN 11 mg/dL (7-20); CALCIUM 8.8 mg/dL (8.4-10.2); CARBON DIOXIDE 24 mmol/L (22-30); CHLORIDE 108 mmol/L (98-107); CHOLESTEROL 126.32 mg/dL (0-200); GLUCOSE 102 mg/dL (75-110); POTASSIUM 3.9 mmol/L (3.6-5.0); TOTAL PROTEIN 6.6 g/dL (6.3-8.2); TRIGLYCERIDES 117 mg/dL (<150)
[2020-01-25 06:31] LABS: DIRECT LDL 88 mg/dL (<100)
[2020-01-25 06:38] LABS: ANISOCYTOSIS 4+; OVALOCYTES SLIGHT; PLATELET COMMENT ADEQUATE; POIKILOCYTOSIS 2+; SCHISTOCYTES SLIGHT; TARGET CELLS 2+; TEAR DROP CELLS 1+; TOXIC GRANULATION SLIGHT
[2020-01-25] MEDS: HYDROXYUREA 500 MG CAPSULE PO SCH ×2 (08:12→21:17)
--- NOTE | 2020-01-25 08:19 | PDOC CONSULTATION ---
Consultation Consult Date: 01/25/20 Attending physician:: ARLINE PAGAN Provider Consulted: JOIE MOREIRA Consult reason:: Sickle cell pain with crisis History of Present Illness Admission Date/PCP: 01/24/20 15:11 JOIE MOREIRA MD Patient complains of: Back pain leg pain History of Present Illness: CASSANDRA MIDDLETON is a 24 year old female with known history of severe sickle cell disease, just discharged about a week ago after a 2-week crisis, unfortunately still was in crisis at home, we try to manage as an outpatient but could not with fluids alone, therefore patient admitted again for IV pain control. She was on oral Dilaudid at home but this was not controlling pain. Past Medical History Cardiac Medical History: Reports: DVT - RUE s/p port placement Denies: Hyperlipidema Pulmonary Medical History: Reports: Asthma, Bronchitis, Pneumonia Neurological Medical History: Endocrine Medical History: Denies: Diabetes Mellitus Type 1, Diabetes Mellitus Type 2 Renal/ Medical History: Malignancy Medical History: Reports: None GI Medical History: Reports: None Musculoskeltal Medical History: Reports: None Psychiatric Medical History: Reports: None, Depression - and anxiety Hematology: Reports: Anemia, Sickle Cell Disease Denies: Bleeding Tendencies Infectious Medical History: Reports: None Past Surgical History Past Surgical History: Reports: Cholecystectomy - 06/28/2015, Vascular Surgery - port put in December,, Other - Port-A-Cath in right upper chest Social History Smoking Status: Former Smoker Electronic Cigarette use?: No Frequency of Alcohol Use: Social Hx Recreational Drug Use: No Drugs: None Hx Prescription Drug Abuse: No - Advance Directive Resuscitation Status: Full Code Family History Family History: Reviewed & Not Pertinent, Other - Sickle cell disease and sickle cell trait, asthma Parental Family History Reviewed: Yes Children Family History Reviewed: Yes Sibling(s) Family History Reviewed.: Yes Medication/Allergy Home Medications: Buspirone HCl [Buspar 10 mg Tablet] 5 mg PO BID 01/05/20 Cholecalciferol (Vitamin D3) [Vitamin D3 1000 Unit Tablet] 1,000 unit PO DAILY 01/05/20 Citalopram Hydrobromide [Celexa 20 mg Tablet] 20 mg PO Q12 01/05/20 Diphenhydramine HCl [Benadryl] 25 mg PO Q6HP PRN 01/05/20 Folic Acid [Folvite 1 mg Tablet] 1 mg PO DAILY 01/05/20 Glutamine [Endari] 3 packet PO BID 01/05/20 Hydromorphone HCl [Dilaudid 2 mg Tablet] 2 mg PO Q6HP PRN 01/05/20 Hydroxyurea [Hydrea 500 mg Capsule] 1,000 mg PO QAM 01/05/20 Hydroxyurea [Hydrea 500 mg Capsule] 500 mg PO QHS 01/05/20 Ibuprofen [Motrin 400 mg Tablet] 400 mg PO Q8 01/05/20 Pregabalin [Lyrica 75 mg Capsule] 75 mg PO Q8HP PRN 01/05/20 Trazodone HCl [Desyrel 50 mg Tablet] 50 mg PO QHS 01/05/20 Allergies/Adverse Reactions: morphine Allergy (Severe, Verified 01/23/20 11:30) RASH,SWELLING jacob peppers Adverse Reaction (Severe, Uncoded 01/23/20 11:30) throat closes Review of Systems Constitutional: ABSENT: chills, fever(s), headache(s), weight gain, weight loss Eyes: ABSENT: visual disturbances Ears: ABSENT: hearing changes Cardiovascular: ABSENT: chest pain, dyspnea on exertion, edema, orthropnea, palpitations Respiratory: ABSENT: cough, hemoptysis Gastrointestinal: ABSENT: abdominal pain, constipation, diarrhea, hematemesis, hematochezia, nausea, vomiting Genitourinary: ABSENT: dysuria, hematuria Musculoskeletal: ABSENT: joint swelling Integumentary: ABSENT: rash, wounds Neurological: ABSENT: abnormal gait, abnormal speech, confusion, dizziness, focal weakness, syncope Psychiatric: ABSENT: anxiety, depression, homidical ideation, suicidal ideation Endocrine: ABSENT: cold intolerance, heat intolerance, polydipsia, polyuria Hematologic/Lymphatic: ABSENT: easy bleeding, easy bruising Physical Exam Vital Signs: Temp Pulse Resp BP Pulse Ox 98.1 F 89 18 154/48 H 100 01/24/20 17:16 01/25/20 02:00 01/24/20 22:15 01/24/20 22:15 01/24/20 22:15 Intake & Output 01/24/20 01/25/20 01/26/20 06:59 06:59 06:59 Intake Total 3217 Balance 3217 Weight 72.7 kg General appearance: PRESENT: no acute distress, well-developed, well-nourished Head exam: PRESENT: atraumatic, normocephalic Eye exam: PRESENT: conjunctiva pink, EOMI, PERRLA. ABSENT: scleral icterus Ear exam: PRESENT: normal external ear exam Mouth exam: PRESENT: moist, tongue midline Neck exam: ABSENT: carotid bruit, JVD, lymphadenopathy, thyromegaly Respiratory exam: PRESENT: clear to auscultation samaria. ABSENT: rales, rhonchi, wheezes Cardiovascular exam: PRESENT: RRR. ABSENT: diastolic murmur, rubs, systolic murmur Pulses: PRESENT: normal dorsalis pedis pul Vascular exam: PRESENT: normal capillary refill GI/Abdominal exam: PRESENT: normal bowel sounds, soft. ABSENT: distended, guarding, mass, organolmegaly, rebound, tenderness Rectal exam: PRESENT: deferred Extremities exam: PRESENT: full ROM. ABSENT: calf tenderness, clubbing, pedal edema Neurological exam: PRESENT: alert, awake, oriented to person, oriented to place, oriented to time, oriented to situation, CN II-XII grossly intact. ABSENT: motor sensory deficit Psychiatric exam: PRESENT: appropriate affect, normal mood. ABSENT: homicidal ideation, suicidal ideation Skin exam: PRESENT: dry, intact, warm. ABSENT: cyanosis, rash Results Laboratory Results: 01/25/20 05:40 01/25/20 05:40 01/24/20 01/24/20 01/24/20 12:10 12:10 13:50 WBC 11.2 H RBC 3.02 L Hgb 10.8 L Hct 30.4 L MCV 101 H MCH 35.8 H MCHC 35.5 RDW 27.2 H Plt Count 635 H Seg Neutrophils % 69.7 Retic Count (auto) 1.16 Sodium 143.5 Potassium 3.7 Chloride 114 H Carbon Dioxide 21 L Anion Gap 9 BUN 8 Creatinine 0.51 L Est GFR ( Amer) > 60 Glucose 97 Calcium 8.9 Magnesium Total Bilirubin 3.2 H AST 32 Alkaline Phosphatase 107 Total Protein 6.8 Albumin 3.7 Triglycerides Cholesterol LDL Cholesterol Direct VLDL Cholesterol HDL Cholesterol Lipase TSH Urine Color YELLOW Urine Appearance CLEAR Urine pH 6.0 Ur Specific [place] 1.011 Urine Protein NEGATIVE Urine Glucose (UA) NEGATIVE Urine Ketones NEGATIVE Urine Blood NEGATIVE 01/25/20 01/25/20 01/25/20 05:40 05:40 05:40 WBC 10.6 H RBC 2.77 L Hgb 10.3 L Hct 28.1 L MCV 102 H MCH 37.3 H MCHC 36.7 H RDW 26.4 H Plt Count 587 H Seg Neutrophils % 50.6 Retic Count (auto) Sodium 141.4 Potassium 3.9 Chloride 108 H Carbon Dioxide 24 Anion Gap 9 BUN 11 Creatinine 0.58 Est GFR ( Amer) > 60 Glucose 102 Calcium 8.8 Magnesium 1.8 Total Bilirubin 3.5 H AST 29 Alkaline Phosphatase 83 Total Protein 6.6 Albumin 3.8 Triglycerides 117 Cholesterol 126.32 LDL Cholesterol Direct 88 VLDL Cholesterol 23.0 HDL Cholesterol 27 L Lipase 56.5 TSH 3.36 Urine Color Urine Appearance Urine pH Ur Specific [place] Urine Protein Urine Glucose (UA) Urine Ketones Urine Blood Impressions: Chest X-Ray 01/24/20 10:02 IMPRESSION: NO ACUTE RADIOGRAPHIC FINDING IN THE CHEST. Assessment & Plan - Diagnosis (1) Acute sickle cell crisis Is this a current diagnosis for this admission?: Yes Plan: Sickle cell pain crisis, increase Dilaudid to 3 mg IV every 2 hours, patient is in a lot of pain this morning. Continue with other supportive care. 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 (3) Chronic, continuous use of opioids Is this a current diagnosis for this admission?: Yes Plan: Continue with current pain control for acute crisis. Hopefully should be able to go back to home oral dosing when her crisis is improved. - Time Time Spent: Greater than 70 Minutes - Inpatient Certification Based on my medical assessment, after consideration of the patient's comorb idities, presenting symptoms, or acuity I expect that the services needed warrant INPATIENT care.: Yes I certify that my determination is in accordance with my understanding of Medicare's requirements for reasonable and necessary INPATIENT services [42 CFR 412.3e].: Yes Medical Necessity: Need for Pain Control
[2020-01-25] MEDS ORDERED: HYDROMORPHONE HCL INJ/PF 2 MG/ML AMPULE IV ONE (09:00)
[2020-01-25] MEDS: CITALOPRAM HYDROBROMIDE 20 MG TABLET PO SCH ×2 (10:41→21:17)
[2020-01-25 13:43] LABS: CREATINE KINASE MB 0.34 ng/mL (<4.55); TROPONIN I 0.014 ng/mL
--- NOTE | 2020-01-25 14:37 | PDOC PROGRESS REPORT ---
Subjective Progress Note for:: 01/25/20 Subjective:: Patient was writhing in pain when I saw her. She was waiting for her analgesia. Reason For Visit: SICKLE CELL CRISIS Physical Exam Vital Signs: Temp Pulse Resp BP Pulse Ox 98.1 F 89 18 154/48 H 100 01/25/20 10:00 01/25/20 07:00 01/24/20 22:15 01/24/20 22:15 01/24/20 22:15 Intake & Output 01/24/20 01/25/20 01/26/20 06:59 06:59 06:59 Intake Total 3217 Balance 3217 Weight 72.7 kg General appearance: PRESENT: well-developed, well-nourished, other - Writhing in pain Head exam: PRESENT: atraumatic, normocephalic Eye exam: PRESENT: conjunctiva pink, EOMI, PERRLA. ABSENT: scleral icterus Ear exam: PRESENT: normal external ear exam Mouth exam: PRESENT: moist, tongue midline Neck exam: ABSENT: carotid bruit, JVD, lymphadenopathy, thyromegaly Respiratory exam: PRESENT: clear to auscultation samaria. ABSENT: rales, rhonchi, wheezes Cardiovascular exam: PRESENT: +S1, +S2, tachycardia. ABSENT: diastolic murmur, rubs, systolic murmur Pulses: PRESENT: normal dorsalis pedis pul Vascular exam: PRESENT: normal capillary refill GI/Abdominal exam: PRESENT: normal bowel sounds, soft. ABSENT: distended, guarding, mass, organolmegaly, rebound, tenderness Rectal exam: PRESENT: deferred Extremities exam: PRESENT: full ROM. ABSENT: calf tenderness, clubbing, pedal edema Neurological exam: PRESENT: alert, awake, oriented to person, oriented to place, oriented to time, oriented to situation, CN II-XII grossly intact. ABSENT: motor sensory deficit Psychiatric exam: PRESENT: appropriate affect, normal mood. ABSENT: homicidal ideation, suicidal ideation Skin exam: PRESENT: dry, intact, warm. ABSENT: cyanosis, rash Results Laboratory Results: 01/25/20 05:40 01/25/20 05:40 01/25/20 01/25/20 01/25/20 05:40 05:40 05:40 WBC 10.6 H RBC 2.77 L Hgb 10.3 L Hct 28.1 L MCV 102 H MCH 37.3 H MCHC 36.7 H RDW 26.4 H Plt Count 587 H Seg Neutrophils % 50.6 Sodium 141.4 Potassium 3.9 Chloride 108 H Carbon Dioxide 24 Anion Gap 9 BUN 11 Creatinine 0.58 Est GFR ( Amer) > 60 Glucose 102 Calcium 8.8 Magnesium 1.8 Total Bilirubin 3.5 H AST 29 Alkaline Phosphatase 83 Total Protein 6.6 Albumin 3.8 Triglycerides 117 Cholesterol 126.32 LDL Cholesterol Direct 88 VLDL Cholesterol 23.0 HDL Cholesterol 27 L Lipase 56.5 TSH 3.36 01/25/20 12:20 CK-MB (CK-2) 0.34 Troponin I 0.014 NT-Pro-B Natriuret Pep 673 H Impressions: Chest X-Ray 01/24/20 10:02 IMPRESSION: NO ACUTE RADIOGRAPHIC FINDING IN THE CHEST. Assessment and Plan - Diagnosis (1) Chronic, continuous use of opioids Is this a current diagnosis for this admission?: Yes Plan: 01/24/2020-patient has chronic opioid dependency. As per the patient Dilaudid 2 mg every 6 hours as needed is not helping at home. Patient is demanding IV Dilaudid during the hospital stay. Counseling was provided about decreasing the opioid dependency. (2) Acute sickle cell crisis Is this a current diagnosis for this admission?: Yes Plan: She was seen by Dr. Baum today any suggest increasing the Dilaudid to 2 mg every 2 hours due to have pain. Suggest transfusion for hemoglobin under 7. Currently her hemoglobin is 10.3 (3) Sickle cell anemia Qualifiers: Sickle-cell associated disorders: with unspecified crisis Qualified Code(s): D57.00 - Hb-SS disease with crisis, unspecified; D57.0 - Hb-SS disease with crisis Is this a current diagnosis for this admission?: Yes - Time Time Spent with patient: 15-24 minutes Medications reviewed and adjusted accordingly: Yes Anticipated Discharge Disposition: Home, Self Care Anticipated Discharge Timeframe: within 48 hours
[2020-01-26] MEDS: HYDROMORPHONE HCL INJ/PF 2 MG/ML AMPULE IV PRN ×11 (01:20→21:42)
[2020-01-26] MEDS: DIPHENHYDRAMINE HCL 50 MG/ML VIAL IV PRN ×3 (03:38→21:43)
[2020-01-26] MEDS: PANTOPRAZOLE SODIUM 40 MG TABLET.DR PO SCH ×2 (06:00→06:03)
[2020-01-26] MEDS: HYDROXYUREA 500 MG CAPSULE PO SCH ×2 (08:07→21:43)
[2020-01-26] MEDS: NORMAL SALINE 1000 ML 1,000 ML IV PRN ×2 (08:07→15:12)
--- NOTE | 2020-01-26 08:48 | PDOC PROGRESS REPORT ---
Subjective Progress Note for:: 01/26/20 Subjective:: Still with considerable pain. Getting x-ray of the lumbar spine today. Reason For Visit: SICKLE CELL CRISIS Physical Exam Vital Signs: Temp Pulse Resp BP Pulse Ox 98.1 F 73 16 117/68 100 01/26/20 08:42 01/26/20 08:42 01/26/20 08:42 01/26/20 08:42 01/26/20 08:42 Intake & Output 01/25/20 01/26/20 01/27/20 06:59 06:59 06:59 Intake Total 3217 1950 1000 Balance 3217 1950 1000 Weight 72.7 kg 77.4 kg General appearance: PRESENT: no acute distress, well-developed, well-nourished Head exam: PRESENT: atraumatic, normocephalic Eye exam: PRESENT: conjunctiva pink, EOMI, PERRLA. ABSENT: scleral icterus Ear exam: PRESENT: normal external ear exam Mouth exam: PRESENT: moist, tongue midline Neck exam: ABSENT: carotid bruit, JVD, lymphadenopathy, thyromegaly Respiratory exam: PRESENT: clear to auscultation samaria. ABSENT: rales, rhonchi, wheezes Cardiovascular exam: PRESENT: RRR. ABSENT: diastolic murmur, rubs, systolic murmur Pulses: PRESENT: normal dorsalis pedis pul Vascular exam: PRESENT: normal capillary refill GI/Abdominal exam: PRESENT: normal bowel sounds, soft. ABSENT: distended, guarding, mass, organolmegaly, rebound, tenderness Rectal exam: PRESENT: deferred Extremities exam: PRESENT: full ROM. ABSENT: calf tenderness, clubbing, pedal edema Neurological exam: PRESENT: alert, awake, oriented to person, oriented to place, oriented to time, oriented to situation, CN II-XII grossly intact. ABSENT: motor sensory deficit Psychiatric exam: PRESENT: appropriate affect, normal mood. ABSENT: homicidal ideation, suicidal ideation Skin exam: PRESENT: dry, intact, warm. ABSENT: cyanosis, rash Results Laboratory Results: 01/25/20 05:40 01/25/20 05:40 01/25/20 12:20 CK-MB (CK-2) 0.34 Troponin I 0.014 NT-Pro-B Natriuret Pep 673 H Impressions: Chest X-Ray 01/24/20 10:02 IMPRESSION: NO ACUTE RADIOGRAPHIC FINDING IN THE CHEST. Assessment & Plan - Diagnosis (1) Acute sickle cell crisis Is this a current diagnosis for this admission?: Yes Plan: Severe lumbar pain, more so than usual, we will get x-ray of the lumbar spine but probably this is just sickling in that area, continue with current supportive care. 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 (3) Chronic, continuous use of opioids Is this a current diagnosis for this admission?: Yes Plan: Continue as above. - Time Time Spent with patient: 35 or more minutes
[2020-01-26] MEDS: CITALOPRAM HYDROBROMIDE 20 MG TABLET PO SCH ×2 (10:07→21:42)
--- NOTE | 2020-01-26 10:46 | RADIOLOGY REPORT (SQ) ---
EXAM DESCRIPTION: L SPINE WHOLE IMAGES COMPLETED DATE/TIME: 01/26/2020 10:36 am REASON FOR STUDY: Lower back pain. COMPARISON: 12/09/2019 NUMBER OF VIEWS: Five views including obliques. TECHNIQUE: AP, lateral, oblique, and sacral radiographic images acquired of the lumbar spine. LIMITATIONS: None. FINDINGS: MINERALIZATION: Normal. SEGMENTATION: Normal. No transitional anatomy. ALIGNMENT: Normal. VERTEBRAE: Biconcave in appearance consistent with a history of sickle cell. This is unchanged from prior study. DISCS: Preserved height. No significant osteophytes or end plate irregularity. POSTERIOR ELEMENTS: Pedicles and facets are intact. No pars defect or posterior arch defects. HARDWARE: None in the spine. PARASPINAL SOFT TISSUES: Normal. PELVIS: Intact as visualized. No fractures or worrisome bone lesions. SI joints intact. OTHER: No other significant finding. IMPRESSION: Biconcave vertebral bodies stable in appearance. No acute findings. TECHNICAL DOCUMENTATION: JOB ID: [id number] 2010 [employer]- All Rights Reserved Reading location - IP/workstation name: [email or web address]
[2020-01-26] MEDS ORDERED: HYDROMORPHONE HCL INJ/PF 2 MG/ML AMPULE IV ONE (12:00)
--- NOTE | 2020-01-26 17:27 | PDOC PROGRESS REPORT ---
Subjective Progress Note for:: 01/26/20 Subjective:: Patient still complaining of pain but says she is better today Reason For Visit: SICKLE CELL CRISIS Physical Exam Vital Signs: Temp Pulse Resp BP Pulse Ox 98.1 F 88 16 117/68 100 01/26/20 10:00 01/26/20 14:00 01/26/20 08:42 01/26/20 08:42 01/26/20 08:42 Intake & Output 01/25/20 01/26/20 01/27/20 06:59 06:59 06:59 Intake Total 3216 1949 1884 Balance 3216 1949 1884 Weight 72.7 kg 77.4 kg General appearance: PRESENT: no acute distress, well-developed, well-nourished Head exam: PRESENT: atraumatic, normocephalic Eye exam: PRESENT: conjunctiva pink, EOMI, PERRLA. ABSENT: scleral icterus Mouth exam: PRESENT: moist Neck exam: ABSENT: carotid bruit, JVD, lymphadenopathy, thyromegaly Respiratory exam: PRESENT: clear to auscultation samaria. ABSENT: rales, rhonchi, wheezes Cardiovascular exam: PRESENT: RRR, +S1, +S2. ABSENT: diastolic murmur, rubs, systolic murmur Pulses: PRESENT: normal dorsalis pedis pul Vascular exam: PRESENT: normal capillary refill GI/Abdominal exam: PRESENT: normal bowel sounds, soft. ABSENT: distended, guarding, mass, organolmegaly, rebound, tenderness Rectal exam: PRESENT: deferred Extremities exam: PRESENT: full ROM. ABSENT: calf tenderness, clubbing, pedal edema Neurological exam: PRESENT: alert, awake, oriented to person, oriented to place, oriented to time, oriented to situation, CN II-XII grossly intact. ABSENT: motor sensory deficit Psychiatric exam: PRESENT: appropriate affect, normal mood. ABSENT: homicidal ideation, suicidal ideation Skin exam: PRESENT: dry, intact, warm. ABSENT: cyanosis, rash Results Laboratory Results: 01/25/20 05:40 01/25/20 05:40 01/25/20 12:20 CK-MB (CK-2) 0.34 Troponin I 0.014 NT-Pro-B Natriuret Pep 673 H Impressions: Chest X-Ray 01/24/20 10:02 IMPRESSION: NO ACUTE RADIOGRAPHIC FINDING IN THE CHEST. Lumbar Spine X-Ray 01/26/20 00:00 IMPRESSION: Biconcave vertebral bodies stable in appearance. No acute findings. Assessment and Plan - Diagnosis (1) Chronic, continuous use of opioids Is this a current diagnosis for this admission?: Yes Plan: 01/24/2020-patient has chronic opioid dependency. As per the patient Dilaudid 2 mg every 6 hours as needed is not helping at home. Patient is demanding IV Dilaudid during the hospital stay. Counseling was provided about decreasing the opioid dependency. 01/25 continue to treat with analgesia (2) Acute sickle cell crisis Is this a current diagnosis for this admission?: Yes Plan: She was seen by Dr. Baum today any suggest increasing the Dilaudid to 2 mg every 2 hours due to have pain. Suggest transfusion for hemoglobin under 7. Currently her hemoglobin is 10.3 01/25 follow-up with CBC in a.m. (3) Sickle cell anemia Qualifiers: Sickle-cell associated disorders: with unspecified crisis Qualified Code(s): D57.00 - Hb-SS disease with crisis, unspecified; D57.0 - Hb-SS disease with crisis Is this a current diagnosis for this admission?: Yes - Time Time Spent with patient: 15-24 minutes Medications reviewed and adjusted accordingly: Yes Anticipated Discharge Disposition: Home, Self Care Anticipated Discharge Timeframe: within 48 hours
[2020-01-26] MEDS: PROMETHAZINE HCL INJ 25 MG/1 ML VIAL IV PRN (21:49)
[2020-01-27] MEDS: HYDROMORPHONE HCL INJ/PF 2 MG/ML AMPULE IV PRN ×11 (00:01→23:28)
[2020-01-27] MEDS: NORMAL SALINE 1000 ML 1,000 ML IV PRN ×3 (00:01→16:27)
[2020-01-27] MEDS: DIPHENHYDRAMINE HCL 50 MG/ML VIAL IV PRN ×3 (04:25→21:10)
[2020-01-27] MEDS: PANTOPRAZOLE SODIUM 40 MG TABLET.DR PO SCH (06:55)
[2020-01-27 07:37] LABS: ANION GAP 9 (5-19); BLOOD UREA NITROGEN 11 mg/dL (7-20); CARBON DIOXIDE 29 mmol/L (22-30); CHLORIDE 100 mmol/L (98-107); GLUCOSE 90 mg/dL (75-110); POTASSIUM 4.1 mmol/L (3.6-5.0)
[2020-01-27 07:46] LABS: HEMATOCRIT 27.5 % (36.0-47.0); HEMOGLOBIN 9.9 g/dL (12.0-15.5); MEAN CORPUSCULAR HEMOGLOBIN 36.6 pg (27.0-33.4); MEAN CORPUSCULAR VOLUME 102 fl (80-97); PLATELET COUNT 562 10^3/uL (150-450); RED BLOOD COUNT 2.71 10^6/uL (3.72-5.28); RED CELL DISTRIBUTION WIDTH 26.1 % (11.5-14.0); WHITE BLOOD COUNT 10.6 10^3/uL (4.0-10.5)
[2020-01-27 07:49] LABS: ABSOLUTE LYMPHOCYTES# (MANUAL) 3.2 10^3/uL (0.5-4.7); ABSOLUTE MONOCYTES # (MANUAL) 1.7 10^3/uL (0.1-1.4); BASOPHILS % (MANUAL) 3 % (0-2); EOSINOPHILS % (MANUAL) 6 % (0-6); LYMPHOCYTES % (MANUAL) 29 % (13-45); MONOCYTES % (MANUAL) 16 % (3-13); NUCLEATED RED BLOOD CELLS 1 /100 WBC (0); SEGMENTED NEUTROPHILS % (MAN) 45 % (42-78); TOTAL CELLS COUNTED 100
[2020-01-27] MEDS: HYDROXYUREA 500 MG CAPSULE PO SCH ×2 (07:52→21:05)
[2020-01-27 07:55] LABS: ANISOCYTOSIS 3+; POIKILOCYTOSIS 2+; POLYCHROMASIA 1+; SCHISTOCYTES SLIGHT; SICKLE RED CELLS SLIGHT; TARGET CELLS 1+; TEAR DROP CELLS 1+
[2020-01-27 07:56] LABS: PAPPENHEIMER BODIES PRESENT; PLATELET COMMENT INCREASED
[2020-01-27] MEDS: ONDANSETRON HCL INJ/PF 4 MG/2 ML SDV IV PRN (07:57)
--- NOTE | 2020-01-27 08:01 | PDOC PROGRESS REPORT ---
Subjective Progress Note for:: 01/27/20 Subjective:: Patient still having a lot of pain. Reviewed x-ray with her, only shows sickle changes. So her back pain is consistent with sickle cell crisis pain. Reason For Visit: SICKLE CELL CRISIS Physical Exam Vital Signs: Temp Pulse Resp BP Pulse Ox 98.0 F 92 15 124/67 100 01/27/20 00:00 01/27/20 02:00 01/27/20 00:00 01/27/20 00:00 01/27/20 00:00 Intake & Output 01/26/20 01/27/20 01/28/20 06:59 06:59 06:59 Intake Total 1950 3385 Balance 1950 3385 Weight 77.4 kg 77.5 kg General appearance: PRESENT: no acute distress, well-developed, well-nourished Head exam: PRESENT: atraumatic, normocephalic Eye exam: PRESENT: conjunctiva pink, EOMI, PERRLA. ABSENT: scleral icterus Ear exam: PRESENT: normal external ear exam Mouth exam: PRESENT: moist, tongue midline Neck exam: ABSENT: carotid bruit, JVD, lymphadenopathy, thyromegaly Respiratory exam: PRESENT: clear to auscultation samaria. ABSENT: rales, rhonchi, wheezes Cardiovascular exam: PRESENT: RRR. ABSENT: diastolic murmur, rubs, systolic murmur Pulses: PRESENT: normal dorsalis pedis pul Vascular exam: PRESENT: normal capillary refill GI/Abdominal exam: PRESENT: normal bowel sounds, soft. ABSENT: distended, guarding, mass, organolmegaly, rebound, tenderness Rectal exam: PRESENT: deferred Extremities exam: PRESENT: full ROM. ABSENT: calf tenderness, clubbing, pedal edema Neurological exam: PRESENT: alert, awake, oriented to person, oriented to place, oriented to time, oriented to situation, CN II-XII grossly intact. ABSENT: motor sensory deficit Psychiatric exam: PRESENT: appropriate affect, normal mood. ABSENT: homicidal ideation, suicidal ideation Skin exam: PRESENT: dry, intact, warm. ABSENT: cyanosis, rash Results Laboratory Results: 01/27/20 06:58 01/27/20 06:58 01/27/20 01/27/20 06:58 06:58 WBC 10.6 H RBC 2.71 L Hgb 9.9 L Hct 27.5 L MCV 102 H MCH 36.6 H MCHC 36.0 RDW 26.1 H Plt Count 562 H Seg Neutrophils % Not Reportable Sodium 137.5 Potassium 4.1 Chloride 100 Carbon Dioxide 29 Anion Gap 9 BUN 11 Creatinine 0.53 Est GFR ( Amer) > 60 Glucose 90 Calcium 9.0 01/25/20 12:20 CK-MB (CK-2) 0.34 Troponin I 0.014 NT-Pro-B Natriuret Pep 673 H Impressions: Chest X-Ray 01/24/20 10:02 IMPRESSION: NO ACUTE RADIOGRAPHIC FINDING IN THE CHEST. Lumbar Spine X-Ray 01/26/20 00:00 IMPRESSION: Biconcave vertebral bodies stable in appearance. No acute findings. Assessment & Plan - Diagnosis (1) Acute sickle cell crisis Is this a current diagnosis for this admission?: Yes Plan: Yesterday had to increase her Dilaudid as she was in a lot of pain after the x- ray. Continue with current therapy. She is certainly in severe crisis currently. 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 (3) Chronic, continuous use of opioids Is this a current diagnosis for this admission?: Yes Plan: Continue with current therapy - Time Time Spent with patient: 35 or more minutes
[2020-01-27] MEDS: CITALOPRAM HYDROBROMIDE 20 MG TABLET PO SCH ×2 (09:27→21:06)
--- NOTE | 2020-01-27 17:49 | PDOC PROGRESS REPORT ---
Subjective Progress Note for:: 01/27/20 Subjective:: Patient still complaining of pain Reason For Visit: SICKLE CELL CRISIS Physical Exam Vital Signs: Temp Pulse Resp BP Pulse Ox 98.3 F 86 15 112/71 99 01/27/20 10:00 01/27/20 14:00 01/27/20 00:00 01/27/20 09:42 01/27/20 09:42 Intake & Output 01/26/20 01/27/20 01/28/20 06:59 06:59 06:59 Intake Total 1950 3385 1835 Balance 1950 3385 1835 Weight 77.4 kg 77.5 kg General appearance: PRESENT: other - in pain Head exam: PRESENT: atraumatic Mouth exam: PRESENT: dry mucosa Respiratory exam: PRESENT: clear to auscultation samaria, unlabored Cardiovascular exam: PRESENT: RRR, +S1, +S2 GI/Abdominal exam: PRESENT: normal bowel sounds Results Laboratory Results: 01/27/20 06:58 01/27/20 06:58 01/27/20 01/27/20 06:58 06:58 WBC 10.6 H RBC 2.71 L Hgb 9.9 L Hct 27.5 L MCV 102 H MCH 36.6 H MCHC 36.0 RDW 26.1 H Plt Count 562 H Seg Neutrophils % Not Reportable Sodium 137.5 Potassium 4.1 Chloride 100 Carbon Dioxide 29 Anion Gap 9 BUN 11 Creatinine 0.53 Est GFR ( Amer) > 60 Glucose 90 Calcium 9.0 01/25/20 12:20 CK-MB (CK-2) 0.34 Troponin I 0.014 NT-Pro-B Natriuret Pep 673 H Impressions: Chest X-Ray 01/24/20 10:02 IMPRESSION: NO ACUTE RADIOGRAPHIC FINDING IN THE CHEST. Lumbar Spine X-Ray 01/26/20 00:00 IMPRESSION: Biconcave vertebral bodies stable in appearance. No acute findings. Assessment and Plan - Diagnosis (1) Chronic, continuous use of opioids Is this a current diagnosis for this admission?: Yes Plan: 01/24/2020-patient has chronic opioid dependency. As per the patient Dilaudid 2 mg every 6 hours as needed is not helping at home. Patient is demanding IV Dilaudid during the hospital stay. Counseling was provided about decreasing the opioid dependency. 01/25 continue to treat with analgesia Continue same management (2) Acute sickle cell crisis Is this a current diagnosis for this admission?: Yes Plan: She was seen by Dr. Baum today any suggest increasing the Dilaudid to 2 mg every 2 hours due to have pain. Suggest transfusion for hemoglobin under 7. Currently her hemoglobin is 10.3 01/25 follow-up with CBC in a.m. (3) Sickle cell anemia Qualifiers: Sickle-cell associated disorders: with unspecified crisis Qualified Code(s): D57.00 - Hb-SS disease with crisis, unspecified; D57.0 - Hb-SS disease with crisis Is this a current diagnosis for this admission?: Yes - Time Time Spent with patient: Less than 15 minutes Anticipated Discharge Disposition: Home, Self Care Anticipated Discharge Timeframe: within 48 hours
[2020-01-28] MEDS: NORMAL SALINE 1000 ML 1,000 ML IV PRN ×3 (01:04→17:31)
[2020-01-28] MEDS: HYDROMORPHONE HCL INJ/PF 2 MG/ML AMPULE IV PRN ×10 (01:51→22:38)
[2020-01-28] MEDS: DIPHENHYDRAMINE HCL 50 MG/ML VIAL IV PRN ×3 (04:52→17:56)
[2020-01-28] MEDS: PANTOPRAZOLE SODIUM 40 MG TABLET.DR PO SCH (05:13)
--- NOTE | 2020-01-28 08:03 | PDOC PROGRESS REPORT ---
Subjective Progress Note for:: 01/28/20 Subjective:: No acute events overnight, patient feeling better this morning. Reason For Visit: SICKLE CELL CRISIS Physical Exam Vital Signs: Temp Pulse Resp BP Pulse Ox 98.1 F 75 20 110/55 L 100 01/28/20 00:11 01/28/20 07:00 01/28/20 00:11 01/28/20 00:11 01/28/20 00:11 Intake & Output 01/27/20 01/28/20 01/29/20 06:59 06:59 06:59 Intake Total 3385 3975 Balance 3385 3975 Weight 77.5 kg 77.1 kg General appearance: PRESENT: no acute distress, well-developed, well-nourished Head exam: PRESENT: atraumatic, normocephalic Eye exam: PRESENT: conjunctiva pink, EOMI, PERRLA. ABSENT: scleral icterus Ear exam: PRESENT: normal external ear exam Mouth exam: PRESENT: moist, tongue midline Neck exam: ABSENT: carotid bruit, JVD, lymphadenopathy, thyromegaly Respiratory exam: PRESENT: clear to auscultation samaria. ABSENT: rales, rhonchi, wheezes Cardiovascular exam: PRESENT: RRR. ABSENT: diastolic murmur, rubs, systolic murmur Pulses: PRESENT: normal dorsalis pedis pul Vascular exam: PRESENT: normal capillary refill GI/Abdominal exam: PRESENT: normal bowel sounds, soft. ABSENT: distended, guarding, mass, organolmegaly, rebound, tenderness Rectal exam: PRESENT: deferred Extremities exam: PRESENT: full ROM. ABSENT: calf tenderness, clubbing, pedal edema Neurological exam: PRESENT: alert, awake, oriented to person, oriented to place, oriented to time, oriented to situation, CN II-XII grossly intact. ABSENT: motor sensory deficit Psychiatric exam: PRESENT: appropriate affect, normal mood. ABSENT: homicidal ideation, suicidal ideation Skin exam: PRESENT: dry, intact, warm. ABSENT: cyanosis, rash Results Laboratory Results: 01/27/20 06:58 01/27/20 06:58 01/25/20 12:20 CK-MB (CK-2) 0.34 Troponin I 0.014 NT-Pro-B Natriuret Pep 673 H Impressions: Chest X-Ray 01/24/20 10:02 IMPRESSION: NO ACUTE RADIOGRAPHIC FINDING IN THE CHEST. Lumbar Spine X-Ray 01/26/20 00:00 IMPRESSION: Biconcave vertebral bodies stable in appearance. No acute findings. Assessment & Plan - Diagnosis (1) Acute sickle cell crisis Is this a current diagnosis for this admission?: Yes Plan: Continue with supportive care, probably will need another 48 hours then, we will consider discharge on Friday most likely. 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 Is this a current diagnosis for this admission?: Yes Plan: Hemoglobin has been stable, transfuse if it gets under 7 (3) Chronic, continuous use of opioids Is this a current diagnosis for this admission?: Yes Plan: Continue with current therapy - Time Time Spent with patient: 15-24 minutes
[2020-01-28] MEDS: CITALOPRAM HYDROBROMIDE 20 MG TABLET PO SCH ×2 (09:03→22:40)
[2020-01-28] MEDS: HYDROXYUREA 500 MG CAPSULE PO SCH ×2 (09:03→22:40)
[2020-01-28] MEDS ORDERED: PREGABALIN 75 MG CAPSULE PO PRN (12:07)
[2020-01-28] MEDS: IBUPROFEN 400 MG TABLET PO SCH ×2 (13:33→22:40)
--- NOTE | 2020-01-28 16:13 | PDOC PROGRESS REPORT ---
Subjective Progress Note for:: 01/28/20 Subjective:: Patient still continues to complain of pain Her pain management is really being handled by the supply chain systems manager. I have encouraged her to increase her fluid intake Reason For Visit: SICKLE CELL CRISIS Physical Exam Vital Signs: Temp Pulse Resp BP Pulse Ox 98.1 F 81 16 117/64 97 01/28/20 08:34 01/28/20 14:00 01/28/20 07:24 01/28/20 07:24 01/28/20 07:24 Intake & Output 01/27/20 01/28/20 01/29/20 06:59 06:59 06:59 Intake Total 3385 3975 1000 Balance 3385 3975 1000 Weight 77.5 kg 77.1 kg General appearance: PRESENT: no acute distress, well-developed, well-nourished Head exam: PRESENT: atraumatic, normocephalic Eye exam: PRESENT: conjunctiva pink. ABSENT: scleral icterus Neck exam: ABSENT: carotid bruit, JVD, lymphadenopathy, thyromegaly Respiratory exam: PRESENT: clear to auscultation samaria. ABSENT: rales, rhonchi, wheezes Cardiovascular exam: PRESENT: RRR, +S1, +S2. ABSENT: diastolic murmur, rubs, systolic murmur Pulses: PRESENT: normal dorsalis pedis pul Vascular exam: PRESENT: normal capillary refill GI/Abdominal exam: PRESENT: normal bowel sounds, soft. ABSENT: distended, guarding, mass, organolmegaly, rebound, tenderness Rectal exam: PRESENT: deferred Extremities exam: PRESENT: full ROM. ABSENT: calf tenderness, clubbing, pedal edema Neurological exam: PRESENT: alert, awake, oriented to person, oriented to place, oriented to time, oriented to situation, CN II-XII grossly intact. ABSENT: motor sensory deficit Psychiatric exam: PRESENT: appropriate affect, normal mood. ABSENT: homicidal ideation, suicidal ideation Skin exam: PRESENT: dry, intact, warm. ABSENT: cyanosis, rash Results Laboratory Results: 01/27/20 06:58 01/27/20 06:58 01/25/20 12:20 CK-MB (CK-2) 0.34 Troponin I 0.014 NT-Pro-B Natriuret Pep 673 H Impressions: Chest X-Ray 01/24/20 10:02 IMPRESSION: NO ACUTE RADIOGRAPHIC FINDING IN THE CHEST. Lumbar Spine X-Ray 01/26/20 00:00 IMPRESSION: Biconcave vertebral bodies stable in appearance. No acute findings. Assessment and Plan - Diagnosis (1) Chronic, continuous use of opioids Is this a current diagnosis for this admission?: Yes (2) Acute sickle cell crisis Is this a current diagnosis for this admission?: Yes (3) Sickle cell anemia Qualifiers: Sickle-cell associated disorders: with unspecified crisis Qualified Code(s): D57.00 - Hb-SS disease with crisis, unspecified; D57.0 - Hb-SS disease with crisis Is this a current diagnosis for this admission?: Yes - Plan Summary Summary: Follow-up with labs in a.m. - Time Time Spent with patient: Less than 15 minutes Medications reviewed and adjusted accordingly: Yes Anticipated Discharge Disposition: Home, Self Care Anticipated Discharge Timeframe: within 48 hours
[2020-01-28] MEDS: BUSPIRONE HCL 10 MG TABLET PO SCH (17:57)
[2020-01-28] MEDS ORDERED: GLUTAMINE PO SCH (18:00)
[2020-01-28] MEDS: TRAZODONE HCL 50 MG TABLET PO SCH (22:40)
[2020-01-29] MEDS: HYDROMORPHONE HCL INJ/PF 2 MG/ML AMPULE IV PRN ×11 (01:13→23:15)
[2020-01-29] MEDS: DIPHENHYDRAMINE HCL 50 MG/ML VIAL IV PRN ×4 (01:14→20:49)
[2020-01-29] MEDS: NORMAL SALINE 1000 ML 1,000 ML IV PRN ×3 (02:02→18:18)
[2020-01-29] MEDS: PANTOPRAZOLE SODIUM 40 MG TABLET.DR PO SCH (05:17)
[2020-01-29] MEDS: IBUPROFEN 400 MG TABLET PO SCH ×4 (05:17→21:07)
[2020-01-29 05:43] LABS: ABSOLUTE BASOPHILS # (AUTO) 0.1 10^3/uL (0.0-0.2); ABSOLUTE EOSINOPHILS # (AUTO) 0.7 10^3/uL (0.0-0.6); ABSOLUTE LYMPHOCYTES (AUTO) 3.9 10^3/uL (0.5-4.7); ABSOLUTE MONOCYTES (AUTO) 1.4 10^3/uL (0.1-1.4); ANION GAP 10 (5-19); BASOPHILS % (AUTO) 0.5 % (0-2); BLOOD UREA NITROGEN 8 mg/dL (7-20); CALCIUM 9.2 mg/dL (8.4-10.2); CARBON DIOXIDE 27 mmol/L (22-30); CHLORIDE 103 mmol/L (98-107); EOSINOPHILS % (AUTO) 6.3 % (0-6); GLUCOSE 110 mg/dL (75-110); HEMATOCRIT 27.9 % (36.0-47.0); HEMOGLOBIN 10.1 g/dL (12.0-15.5); LYMPHOCYTES % (AUTO) 35.8 % (13-45); MEAN CORPUSCULAR HEMOGLOBIN 36.7 pg (27.0-33.4); MEAN CORPUSCULAR HGB CONC 36.1 g/dL (32.0-36.0); MEAN CORPUSCULAR VOLUME 102 fl (80-97); MONOCYTES % (AUTO) 12.3 % (3-13); PLATELET COUNT 500 10^3/uL (150-450); POTASSIUM 4.2 mmol/L (3.6-5.0); RED BLOOD COUNT 2.74 10^6/uL (3.72-5.28); RED CELL DISTRIBUTION WIDTH 25.6 % (11.5-14.0); SEGMENTED NEUTROPHILS % (AUTO) 45.1 % (42-78); TOTAL CELLS COUNTED % (AUTO) 100 %
[2020-01-29] MEDS: HYDROXYUREA 500 MG CAPSULE PO SCH ×2 (08:06→21:04)
[2020-01-29] MEDS: CHOLECALCIFEROL (D3) 1,000 UNIT (25 MCG) TABLET PO SCH (10:08)
[2020-01-29] MEDS: FOLIC ACID 1 MG TABLET PO SCH (10:08)
[2020-01-29] MEDS: CITALOPRAM HYDROBROMIDE 20 MG TABLET PO SCH ×2 (10:08→21:04)
[2020-01-29] MEDS: BUSPIRONE HCL 10 MG TABLET PO SCH ×2 (10:08→17:12)
--- NOTE | 2020-01-29 10:16 | PDOC PROGRESS REPORT ---
Subjective Progress Note for:: 01/29/20 Subjective:: Patient still continues to complain of pain Patient states that she is better today. H&H remained stable. She is getting Dilaudid every 2 hours [id number] as ordered by quarter inspector Reason For Visit: SICKLE CELL CRISIS Physical Exam Vital Signs: Temp Pulse Resp BP Pulse Ox 98.0 F 84 16 117/60 99 01/29/20 07:22 01/29/20 07:22 01/29/20 07:22 01/29/20 07:22 01/29/20 07:22 Intake & Output 01/28/20 01/29/20 01/30/20 06:59 06:59 05:59 Intake Total 3975 4320 1000 Balance 3975 4320 1000 Weight 77.1 kg 78 kg General appearance: PRESENT: no acute distress, well-developed, well-nourished Head exam: PRESENT: atraumatic, normocephalic Eye exam: PRESENT: conjunctiva pink, EOMI, PERRLA. ABSENT: scleral icterus Mouth exam: PRESENT: moist Neck exam: ABSENT: carotid bruit, JVD, lymphadenopathy, thyromegaly Respiratory exam: PRESENT: clear to auscultation samaria. ABSENT: rales, rhonchi, wheezes Cardiovascular exam: PRESENT: RRR, +S1, +S2. ABSENT: diastolic murmur, rubs, systolic murmur Pulses: PRESENT: normal dorsalis pedis pul Vascular exam: PRESENT: normal capillary refill GI/Abdominal exam: PRESENT: normal bowel sounds, soft. ABSENT: distended, guarding, mass, organolmegaly, rebound, tenderness Rectal exam: PRESENT: deferred Extremities exam: PRESENT: full ROM. ABSENT: calf tenderness, clubbing, pedal edema Neurological exam: PRESENT: alert, awake, oriented to person, oriented to place, oriented to time, oriented to situation, CN II-XII grossly intact. ABSENT: motor sensory deficit Psychiatric exam: PRESENT: appropriate affect, normal mood. ABSENT: homicidal ideation, suicidal ideation Skin exam: PRESENT: dry, intact, warm. ABSENT: cyanosis, rash Results Laboratory Results: 01/29/20 05:14 01/29/20 05:14 01/29/20 01/29/20 05:14 05:14 WBC 11.0 H RBC 2.74 L Hgb 10.1 L Hct 27.9 L MCV 102 H MCH 36.7 H MCHC 36.1 H RDW 25.6 H Plt Count 500 H Seg Neutrophils % 45.1 Sodium 139.6 Potassium 4.2 Chloride 103 Carbon Dioxide 27 Anion Gap 10 BUN 8 Creatinine 0.51 L Est GFR ( Amer) > 60 Glucose 110 Calcium 9.2 01/25/20 12:20 CK-MB (CK-2) 0.34 Troponin I 0.014 NT-Pro-B Natriuret Pep 673 H Impressions: Chest X-Ray 01/24/20 10:02 IMPRESSION: NO ACUTE RADIOGRAPHIC FINDING IN THE CHEST. Lumbar Spine X-Ray 01/26/20 00:00 IMPRESSION: Biconcave vertebral bodies stable in appearance. No acute findings. Assessment and Plan - Diagnosis (1) Chronic, continuous use of opioids Is this a current diagnosis for this admission?: Yes (2) Acute sickle cell crisis Is this a current diagnosis for this admission?: Yes Plan: She was seen by Dr. Baum today any suggest increasing the Dilaudid to 2 mg every 2 hours due to have pain. Suggest transfusion for hemoglobin under 7. Currently her hemoglobin is 10.3 01/25 follow-up with CBC in a.m. 01/28 CBC remains pretty stable with hemoglobin of 10. No indication for transfusion (3) Sickle cell anemia Qualifiers: Sickle-cell associated disorders: with unspecified crisis Qualified Code(s): D57.00 - Hb-SS disease with crisis, unspecified; D57.0 - Hb-SS disease with crisis Is this a current diagnosis for this admission?: Yes - Time Time Spent with patient: Less than 15 minutes Medications reviewed and adjusted accordingly: Yes Anticipated Discharge Disposition: Home, Self Care Anticipated Discharge Timeframe: within 48 hours
[2020-01-29] MEDS: SENNOSIDES/DOCUSATE 8.6-50 MG 1 EACH TABLET PO PRN (12:13)
--- NOTE | 2020-01-29 12:15 | PDOC PROGRESS REPORT ---
Subjective Progress Note for:: 01/29/20 Subjective:: Patient seen at 12 today, was due for pain medication and was in severe pain. Still requiring pretty regularly. Did have a hard stool yesterday, encourage the use of the bowel regimen today. Reason For Visit: SICKLE CELL CRISIS Physical Exam Vital Signs: Temp Pulse Resp BP Pulse Ox 98.0 F 84 16 117/60 99 01/29/20 10:00 01/29/20 07:22 01/29/20 07:22 01/29/20 07:22 01/29/20 07:22 Intake & Output 01/28/20 01/29/20 01/30/20 06:59 06:59 05:59 Intake Total 3975 4320 1000 Balance 3975 4320 1000 Weight 77.1 kg 78 kg General appearance: PRESENT: no acute distress, well-developed, well-nourished Head exam: PRESENT: atraumatic, normocephalic Eye exam: PRESENT: conjunctiva pink, EOMI, PERRLA. ABSENT: scleral icterus Ear exam: PRESENT: normal external ear exam Mouth exam: PRESENT: moist, tongue midline Neck exam: ABSENT: carotid bruit, JVD, lymphadenopathy, thyromegaly Respiratory exam: PRESENT: clear to auscultation samaria. ABSENT: rales, rhonchi, wheezes Cardiovascular exam: PRESENT: RRR. ABSENT: diastolic murmur, rubs, systolic murmur Pulses: PRESENT: normal dorsalis pedis pul Vascular exam: PRESENT: normal capillary refill GI/Abdominal exam: PRESENT: normal bowel sounds, soft. ABSENT: distended, guarding, mass, organolmegaly, rebound, tenderness Rectal exam: PRESENT: deferred Extremities exam: PRESENT: full ROM. ABSENT: calf tenderness, clubbing, pedal edema Neurological exam: PRESENT: alert, awake, oriented to person, oriented to place, oriented to time, oriented to situation, CN II-XII grossly intact. ABSENT: motor sensory deficit Psychiatric exam: PRESENT: appropriate affect, normal mood. ABSENT: homicidal ideation, suicidal ideation Skin exam: PRESENT: dry, intact, warm. ABSENT: cyanosis, rash Results Laboratory Results: 01/29/20 05:14 01/29/20 05:14 01/29/20 01/29/20 05:14 05:14 WBC 11.0 H RBC 2.74 L Hgb 10.1 L Hct 27.9 L MCV 102 H MCH 36.7 H MCHC 36.1 H RDW 25.6 H Plt Count 500 H Seg Neutrophils % 45.1 Sodium 139.6 Potassium 4.2 Chloride 103 Carbon Dioxide 27 Anion Gap 10 BUN 8 Creatinine 0.51 L Est GFR ( Amer) > 60 Glucose 110 Calcium 9.2 01/25/20 12:20 CK-MB (CK-2) 0.34 Troponin I 0.014 NT-Pro-B Natriuret Pep 673 H Impressions: Chest X-Ray 01/24/20 10:02 IMPRESSION: NO ACUTE RADIOGRAPHIC FINDING IN THE CHEST. Lumbar Spine X-Ray 01/26/20 00:00 IMPRESSION: Biconcave vertebral bodies stable in appearance. No acute findings. 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
[2020-01-29] MEDS: ONDANSETRON HCL INJ/PF 4 MG/2 ML SDV IV PRN ×2 (12:18→21:03)
[2020-01-29] MEDS: TRAZODONE HCL 50 MG TABLET PO SCH (21:04)
[2020-01-30] MEDS: NORMAL SALINE 1000 ML 1,000 ML IV PRN ×3 (01:09→17:20)
[2020-01-30] MEDS: HYDROMORPHONE HCL INJ/PF 2 MG/ML AMPULE IV PRN ×11 (01:09→23:23)
[2020-01-30] MEDS: DIPHENHYDRAMINE HCL 50 MG/ML VIAL IV PRN ×4 (03:02→21:21)
[2020-01-30] MEDS: IBUPROFEN 400 MG TABLET PO SCH ×3 (05:18→21:14)
[2020-01-30] MEDS: PANTOPRAZOLE SODIUM 40 MG TABLET.DR PO SCH (05:25)
[2020-01-30] MEDS: HYDROXYUREA 500 MG CAPSULE PO SCH ×2 (07:41→21:21)
[2020-01-30] MEDS: FOLIC ACID 1 MG TABLET PO SCH (09:08)
[2020-01-30] MEDS: CHOLECALCIFEROL (D3) 1,000 UNIT (25 MCG) TABLET PO SCH (09:08)
[2020-01-30] MEDS: BUSPIRONE HCL 10 MG TABLET PO SCH ×2 (09:08→17:20)
[2020-01-30] MEDS: CITALOPRAM HYDROBROMIDE 20 MG TABLET PO SCH ×2 (09:08→21:21)
[2020-01-30] MEDS ORDERED: BISACODYL 5 MG TABEC PO PRN (09:59)
[2020-01-30] MEDS ORDERED: BISACODYL 10 MG SUPP.RECT PR PRN (09:59)
--- NOTE | 2020-01-30 18:30 | PDOC PROGRESS REPORT ---
Subjective Subjective:: Per Previous Physician: "CASSANDRA MIDDLETON is a 24 year old female with history of sickle cell anemia with multiple admissions with complaints of severe back pain recently in the hospital for 14 days discharged on of this month came back yesterday to the ER given IV Dilaudid and was discharged came back again today with complaints of severe back pain. Lab work within normal limits. Patient received 90 tablets of 2 mg of Dilaudid on . As per the patient hemodialysis is not helping. Medical consult was called for admission for admission, further management. Patient is quite upset and refused physical examination." 01/30/2020 Patient states her pain is not very well controlled today but is tolerable at times. Dr. Baum is still following the patient and adjusting pain medications as needed. She is continued on IV fluids as well as her home medications including Hydrea. Her hemoglobin is stable today at 10.1. I have added oral and rectal Dulcolax for constipation. She would also like MiraLAX av ailable. Reason For Visit: SICKLE CELL CRISIS Physical Exam Vital Signs: Temp Pulse Resp BP Pulse Ox 97.4 F 85 17 103/82 100 01/30/20 15:46 01/30/20 15:46 01/30/20 15:46 01/30/20 15:46 01/30/20 15:46 Intake & Output 01/29/20 01/30/20 01/31/20 07:59 06:59 06:59 Intake Total 2768 Balance 2768 Weight Exam: General appearance: PRESENT: no acute distress, well-developed, well-nourished, appears uncomfortable Head exam: PRESENT: atraumatic, normocephalic Eye exam: PRESENT: conjunctiva pink. ABSENT: scleral icterus Mouth exam: PRESENT: moist Respiratory exam: PRESENT: clear to auscultation samaria. ABSENT: rales, rhonchi, wheezes Cardiovascular exam: PRESENT: RRR. ABSENT: diastolic murmur, rubs, systolic murmur GI/Abdominal exam: PRESENT: normal bowel sounds, soft. ABSENT: distended, guarding, mass, organolmegaly, rebound, tenderness Neurological exam: PRESENT: alert, awake, oriented to person, oriented to place, oriented to time, oriented to situation Psychiatric exam: PRESENT: appropriate affect, normal mood Skin exam: PRESENT: dry, intact, warm Results Laboratory Results: 01/29/20 05:14 01/29/20 05:14 01/25/20 12:20 CK-MB (CK-2) 0.34 Troponin I 0.014 NT-Pro-B Natriuret Pep 673 H Impressions: Chest X-Ray 01/24/20 10:02 IMPRESSION: NO ACUTE RADIOGRAPHIC FINDING IN THE CHEST. Lumbar Spine X-Ray 01/26/20 00:00 IMPRESSION: Biconcave vertebral bodies stable in appearance. No acute findings. Assessment and Plan - Diagnosis (1) Chronic, continuous use of opioids Is this a current diagnosis for this admission?: Yes (2) Acute sickle cell crisis Is this a current diagnosis for this admission?: Yes (3) Constipation Qualifiers: Constipation type: outlet dysfunction constipation Qualified Code(s): K59.02 - Outlet dysfunction constipation Is this a current diagnosis for this admission?: Yes (4) Depression with anxiety Is this a current diagnosis for this admission?: Yes (5) History of DVT (deep vein thrombosis) Is this a current diagnosis for this admission?: Yes (6) Hyperbilirubinemia Is this a current diagnosis for this admission?: Yes (7) Sickle cell pain crisis Is this a current diagnosis for this admission?: Yes - Plan Summary Summary: (1) Chronic, continuous use of opioids Pain medication managed by Dr. Dl victor who follows the patient in the outpatient setting, consulted here Pain regimen increased for acute sickle cell crisis (2) Acute sickle cell crisis Is this a current diagnosis for this admission?: Yes Plan: She was seen by Dr. Baum today any suggest increasing the Dilaudid to 2 mg every 2 hours due to have pain. Suggest transfusion for hemoglobin under 7. Currently her hemoglobin is 10.3 01/25 follow-up with CBC in a.m. 01/28 CBC remains pretty stable with hemoglobin of 10. No indication for transfusion 01/30/2020pain incompletely controlled, Dr. Baum adjusting medications, IV fluids continue along with Hydrea and other home medications (3) Sickle cell anemia Qualifiers: Sickle-cell associated disorders: with unspecified crisis Qualified Code(s): D57.00 - Hb-SS disease with crisis, unspecified; D57.0 - Hb-SS disease with crisis Is this a current diagnosis for this admission?: Yes - Time Time Spent with patient: 25-34 minutes Medications reviewed and adjusted accordingly: Yes Anticipated Discharge Disposition: Home, Self Care Anticipated Discharge Timeframe: within 48 hours - Inpatient Certification Based on my medical assessment, after consideration of the patient's comorbidities, presenting symptoms, or acuity I expect that the services needed warrant INPATIENT care.: Yes I certify that my determination is in accordance with my understanding of Medicare's requirements for reasonable and necessary INPATIENT services [42 CFR 412.3e].: Yes Medical Necessity: Failure to Improve With Outpatient Therapy, Significant Comorbidiites Make Outpatient Treatment Too Risky, Need Close Monitoring Due to Risk of Patient Decompensation, Need For IV Fluids, Risk of Complication if Not Cared For in Hospital, Risk of Diagnosis Which Will Require Inpatient Eval/Care/Monitoring
[2020-01-30] MEDS: TRAZODONE HCL 50 MG TABLET PO SCH (21:21)
[2020-01-31] MEDS: NORMAL SALINE 1000 ML 1,000 ML IV PRN ×3 (01:28→17:03)
[2020-01-31] MEDS: HYDROMORPHONE HCL INJ/PF 2 MG/ML AMPULE IV PRN ×10 (01:28→23:45)
[2020-01-31] MEDS: DIPHENHYDRAMINE HCL 50 MG/ML VIAL IV PRN ×3 (05:14→19:07)
[2020-01-31] MEDS: IBUPROFEN 400 MG TABLET PO SCH ×3 (05:32→21:28)
[2020-01-31] MEDS: PANTOPRAZOLE SODIUM 40 MG TABLET.DR PO SCH (05:32)
--- NOTE | 2020-01-31 09:01 | PDOC PROGRESS REPORT ---
Subjective Progress Note for:: 01/31/20 Subjective:: Patient states that her pain remain quite bad. She is receiving IV dilaudid regularly. She denies any dyspnea or constipation. She is eating regular diet. She does not have any oxygen hooked up in her room, but states that she will wear it if she has it. Reason For Visit: SICKLE CELL CRISIS Physical Exam Vital Signs: Temp Pulse Resp BP Pulse Ox 97.8 F 87 12 110/62 98 01/31/20 08:29 01/31/20 08:29 01/31/20 08:29 01/31/20 08:29 01/31/20 08:29 Intake & Output 01/30/20 01/31/20 02/01/20 06:59 06:59 06:59 Intake Total 3768 Balance 3768 Weight 78 kg General appearance: PRESENT: no acute distress Head exam: PRESENT: normocephalic Respiratory exam: PRESENT: clear to auscultation samaria, unlabored Cardiovascular exam: PRESENT: RRR GI/Abdominal exam: PRESENT: soft Musculoskeletal exam: PRESENT: normal inspection Neurological exam: PRESENT: alert, awake Psychiatric exam: PRESENT: appropriate affect Skin exam: PRESENT: normal color Results Laboratory Results: 01/29/20 05:14 01/29/20 05:14 01/25/20 12:20 CK-MB (CK-2) 0.34 Troponin I 0.014 NT-Pro-B Natriuret Pep 673 H Impressions: Chest X-Ray 01/24/20 10:02 IMPRESSION: NO ACUTE RADIOGRAPHIC FINDING IN THE CHEST. Lumbar Spine X-Ray 01/26/20 00:00 IMPRESSION: Biconcave vertebral bodies stable in appearance. No acute findings. Assessment & Plan - Diagnosis (1) Acute sickle cell crisis Is this a current diagnosis for this admission?: Yes Plan: Continue current supportive measures. No change in pain meds today. I have asked nurses to apply NC for 2 L oxygen continuously. - Time Time Spent with patient: Less than 15 minutes
[2020-01-31] MEDS: CITALOPRAM HYDROBROMIDE 20 MG TABLET PO SCH ×2 (09:37→21:28)
[2020-01-31] MEDS: FOLIC ACID 1 MG TABLET PO SCH (09:37)
[2020-01-31] MEDS: CHOLECALCIFEROL (D3) 1,000 UNIT (25 MCG) TABLET PO SCH (09:37)
[2020-01-31] MEDS: BUSPIRONE HCL 10 MG TABLET PO SCH ×2 (09:37→17:03)
[2020-01-31] MEDS: HYDROXYUREA 500 MG CAPSULE PO SCH ×2 (09:37→21:28)
[2020-01-31] MEDS: SENNOSIDES/DOCUSATE 8.6-50 MG 1 EACH TABLET PO PRN (13:58)
--- NOTE | 2020-01-31 17:55 | PDOC PROGRESS REPORT ---
Subjective Subjective:: Per Previous Physician: "CASSANDRA MIDDLETON is a 24 year old female with history of sickle cell anemia with multiple admissions with complaints of severe back pain recently in the hospital for 14 days discharged on of this month came back yesterday to the ER given IV Dilaudid and was discharged came back again today with complaints of severe back pain. Lab work within normal limits. Patient received 90 tablets of 2 mg of Dilaudid on . As per the patient hemodialysis is not helping. Medical consult was called for admission for admission, further management. Patient is quite upset and refused physical examination." 01/30/2020 Patient states her pain is not very well controlled today but is tolerable at times. Dr. Baum is still following the patient and adjusting pain medications as needed. She is continued on IV fluids as well as her home medications including Hydrea. Her hemoglobin is stable today at 10.1. I have added oral and rectal Dulcolax for constipation. She would also like MiraLAX av ailable. 12/01/2019 Patient still having some uncontrolled intermittently she seems a bit more comfortable today. Oncology is following and they have been adjusting pain medications as needed. No labs have been checked since 01/28 and we will check labs tomorrow but this only needs to be done intermittently to avoid causing additional anemia. Reason For Visit: SICKLE CELL CRISIS Physical Exam Vital Signs: Temp Pulse Resp BP Pulse Ox 98.0 F 89 12 101/57 L 98 01/31/20 15:00 01/31/20 15:00 01/31/20 15:00 01/31/20 15:00 01/31/20 08:29 Intake & Output 01/30/20 01/31/20 02/01/20 06:59 06:59 06:59 Intake Total 3768 1923 Balance 3768 1923 Weight 78 kg Exam: General appearance: PRESENT: no acute distress, well-developed, well-nourished, states she is still having uncontrolled pain at times Head exam: PRESENT: atraumatic, normocephalic Eye exam: PRESENT: conjunctiva pink. ABSENT: scleral icterus Mouth exam: PRESENT: moist Respiratory exam: PRESENT: clear to auscultation samaria. ABSENT: rales, rhonchi, wheezes Cardiovascular exam: PRESENT: RRR. ABSENT: diastolic murmur, rubs, systolic murmur GI/Abdominal exam: PRESENT: normal bowel sounds, soft. ABSENT: distended, guarding, mass, organolmegaly, rebound, tenderness Neurological exam: PRESENT: alert, awake, oriented to person, oriented to place, oriented to time, oriented to situation Psychiatric exam: PRESENT: appropriate affect, normal mood Skin exam: PRESENT: dry, intact, warm Results Laboratory Results: 01/29/20 05:14 01/29/20 05:14 01/25/20 12:20 CK-MB (CK-2) 0.34 Troponin I 0.014 NT-Pro-B Natriuret Pep 673 H Impressions: Chest X-Ray 01/24/20 10:02 IMPRESSION: NO ACUTE RADIOGRAPHIC FINDING IN THE CHEST. Lumbar Spine X-Ray 01/26/20 00:00 IMPRESSION: Biconcave vertebral bodies stable in appearance. No acute findings. Assessment and Plan - Diagnosis (1) Chronic, continuous use of opioids Is this a current diagnosis for this admission?: Yes (2) Acute sickle cell crisis Is this a current diagnosis for this admission?: Yes (3) Constipation Qualifiers: Constipation type: outlet dysfunction constipation Qualified Code(s): K59.02 - Outlet dysfunction constipation Is this a current diagnosis for this admission?: Yes (4) Depression with anxiety Is this a current diagnosis for this admission?: Yes (5) History of DVT (deep vein thrombosis) Is this a current diagnosis for this admission?: Yes (6) Hyperbilirubinemia Is this a current diagnosis for this admission?: Yes (7) Sickle cell pain crisis Is this a current diagnosis for this admission?: Yes - Plan Summary Summary: (1) Chronic, continuous use of opioids Pain medication managed by Dr. Dl victor who follows the patient in the outpatient setting, consulted here Pain regimen increased for acute sickle cell crisis (2) Acute sickle cell crisis Is this a current diagnosis for this admission?: Yes Plan: She was seen by Dr. Baum today any suggest increasing the Dilaudid to 2 mg every 2 hours due to have pain. Suggest transfusion for hemoglobin under 7. Currently her hemoglobin is 10.3 01/25 follow-up with CBC in a.m. 01/28 CBC remains pretty stable with hemoglobin of 10. No indication for transfusion 01/30/2020pain incompletely controlled, Dr. Baum adjusting medications, IV fluids continue along with Hydrea and other home medications Pain medications staying the same per hematology (3) Sickle cell anemia Qualifiers: Sickle-cell associated disorders: with unspecified crisis Qualified Code(s): D57.00 - Hb-SS disease with crisis, unspecified; D57.0 - Hb-SS disease with crisis Is this a current diagnosis for this admission?: Yes - Time Time Spent with patient: 15-24 minutes Medications reviewed and adjusted accordingly: Yes Anticipated Discharge Disposition: Home, Self Care Anticipated Discharge Timeframe: within 72 hours - Inpatient Certification Based on my medical assessment, after consideration of the patient's comorbidities, presenting symptoms, or acuity I expect that the services needed warrant INPATIENT care.: Yes I certify that my determination is in accordance with my understanding of Medicare's requirements for reasonable and necessary INPATIENT services [42 CFR 412.3e].: Yes Medical Necessity: Significant Comorbidiites Make Outpatient Treatment Too Risky, Need Close Monitoring Due to Risk of Patient Decompensation, Need for Pain Control, Risk of Complication if Not Cared For in Hospital, Risk of Diagnosis Which Will Require Inpatient Eval/Care/Monitoring
[2020-01-31] MEDS: TRAZODONE HCL 50 MG TABLET PO SCH (21:28)
[2020-02-01] MEDS: NORMAL SALINE 1000 ML 1,000 ML IV PRN ×3 (01:10→18:34)
[2020-02-01] MEDS: DIPHENHYDRAMINE HCL 50 MG/ML VIAL IV PRN ×4 (01:44→23:08)
[2020-02-01] MEDS: HYDROMORPHONE HCL INJ/PF 2 MG/ML AMPULE IV PRN ×10 (01:45→23:08)
[2020-02-01] MEDS: IBUPROFEN 400 MG TABLET PO SCH ×3 (05:27→23:11)
[2020-02-01] MEDS: PANTOPRAZOLE SODIUM 40 MG TABLET.DR PO SCH (05:27)
[2020-02-01 06:05] LABS: HEMATOCRIT 25.5 % (36.0-47.0); MEAN CORPUSCULAR HEMOGLOBIN 35.8 pg (27.0-33.4); MEAN CORPUSCULAR HGB CONC 35.4 g/dL (32.0-36.0); MEAN CORPUSCULAR VOLUME 101 fl (80-97); PLATELET COUNT 391 10^3/uL (150-450); RED BLOOD COUNT 2.53 10^6/uL (3.72-5.28); RED CELL DISTRIBUTION WIDTH 26.5 % (11.5-14.0); WHITE BLOOD COUNT 10.2 10^3/uL (4.0-10.5)
[2020-02-01 06:36] LABS: ANION GAP 8 (5-19); BLOOD UREA NITROGEN 7 mg/dL (7-20); CALCIUM 9.2 mg/dL (8.4-10.2); CARBON DIOXIDE 29 mmol/L (22-30); CHLORIDE 104 mmol/L (98-107); GLUCOSE 100 mg/dL (75-110); POTASSIUM 4.3 mmol/L (3.6-5.0)
[2020-02-01 06:40] LABS: SEGMENTED NEUTROPHILS % (MAN) 53 % (42-78); TOTAL CELLS COUNTED 100
[2020-02-01 06:41] LABS: ABSOLUTE LYMPHOCYTES# (MANUAL) 3.3 10^3/uL (0.5-4.7); ABSOLUTE MONOCYTES # (MANUAL) 1.1 10^3/uL (0.1-1.4); ANISOCYTOSIS 4+; BASOPHILS % (MANUAL) 1 % (0-2); EOSINOPHILS % (MANUAL) 3 % (0-6); LYMPHOCYTES % (MANUAL) 32 % (13-45); MONOCYTES % (MANUAL) 11 % (3-13); NUCLEATED RED BLOOD CELLS 8 /100 WBC (0); PLATELET COMMENT ADEQUATE; POIKILOCYTOSIS 2+; SCHISTOCYTES SLIGHT; SMUDGE CELLS PRESENT; TARGET CELLS 2+; TOXIC GRANULATION SLIGHT
[2020-02-01] MEDS: HYDROXYUREA 500 MG CAPSULE PO SCH ×2 (07:51→23:11)
--- NOTE | 2020-02-01 07:54 | PDOC PROGRESS REPORT ---
Subjective Progress Note for:: 02/01/20 Subjective:: still w/ considerable pain, requiring IV dilaudid on time. Reason For Visit: SICKLE CELL CRISIS Physical Exam Vital Signs: Temp Pulse Resp BP Pulse Ox 97.9 F 92 17 113/70 100 01/31/20 23:22 02/01/20 02:00 01/31/20 23:22 01/31/20 23:22 01/31/20 23:22 Intake & Output 01/31/20 02/01/20 02/02/20 06:59 06:59 06:59 Intake Total 3768 2663 Balance 3768 2663 Weight 78 kg 78 kg General appearance: PRESENT: no acute distress, well-developed, well-nourished Head exam: PRESENT: atraumatic, normocephalic Eye exam: PRESENT: conjunctiva pink, EOMI, PERRLA. ABSENT: scleral icterus Ear exam: PRESENT: normal external ear exam Mouth exam: PRESENT: moist, tongue midline Neck exam: ABSENT: carotid bruit, JVD, lymphadenopathy, thyromegaly Respiratory exam: PRESENT: clear to auscultation samaria. ABSENT: rales, rhonchi, wheezes Cardiovascular exam: PRESENT: RRR. ABSENT: diastolic murmur, rubs, systolic murmur Pulses: PRESENT: normal dorsalis pedis pul Vascular exam: PRESENT: normal capillary refill GI/Abdominal exam: PRESENT: normal bowel sounds, soft. ABSENT: distended, guarding, mass, organolmegaly, rebound, tenderness Rectal exam: PRESENT: deferred Extremities exam: PRESENT: full ROM. ABSENT: calf tenderness, clubbing, pedal edema Neurological exam: PRESENT: alert, awake, oriented to person, oriented to place, oriented to time, oriented to situation, CN II-XII grossly intact. ABSENT: motor sensory deficit Psychiatric exam: PRESENT: appropriate affect, normal mood. ABSENT: homicidal ideation, suicidal ideation Skin exam: PRESENT: dry, intact, warm. ABSENT: cyanosis, rash Results Laboratory Results: 02/01/20 05:50 02/01/20 05:50 02/01/20 02/01/20 05:50 05:50 WBC 10.2 RBC 2.53 L Hgb 9.0 L Hct 25.5 L MCV 101 H MCH 35.8 H MCHC 35.4 RDW 26.5 H Plt Count 391 Seg Neutrophils % Not Reportable Sodium 140.8 Potassium 4.3 Chloride 104 Carbon Dioxide 29 Anion Gap 8 BUN 7 Creatinine 0.56 Est GFR ( Amer) > 60 Glucose 100 Calcium 9.2 01/25/20 12:20 CK-MB (CK-2) 0.34 Troponin I 0.014 NT-Pro-B Natriuret Pep 673 H Impressions: Chest X-Ray 01/24/20 10:02 IMPRESSION: NO ACUTE RADIOGRAPHIC FINDING IN THE CHEST. Lumbar Spine X-Ray 01/26/20 00:00 IMPRESSION: Biconcave vertebral bodies stable in appearance. No acute findings. Assessment & Plan - Diagnosis (1) Acute sickle cell crisis Is this a current diagnosis for this admission?: Yes Plan: Still not resolved, will need to stay for cont IV pain meds, IVF 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 Is this a current diagnosis for this admission?: Yes Plan: Hb drop to 9, still monitor (3) Chronic, continuous use of opioids Is this a current diagnosis for this admission?: Yes Plan: cont current regimen - Time Time Spent with patient: 25-34 minutes
[2020-02-01] MEDS: CITALOPRAM HYDROBROMIDE 20 MG TABLET PO SCH ×2 (10:13→23:11)
[2020-02-01] MEDS: BUSPIRONE HCL 10 MG TABLET PO SCH ×2 (10:13→17:35)
[2020-02-01] MEDS: FOLIC ACID 1 MG TABLET PO SCH (10:14)
[2020-02-01] MEDS: CHOLECALCIFEROL (D3) 1,000 UNIT (25 MCG) TABLET PO SCH (10:14)
--- NOTE | 2020-02-01 17:59 | PDOC PROGRESS REPORT ---
Subjective Subjective:: Per Previous Physician: "CASSANDRA MIDDLETON is a 24 year old female with history of sickle cell anemia with multiple admissions with complaints of severe back pain recently in the hospital for 14 days discharged on of this month came back yesterday to the ER given IV Dilaudid and was discharged came back again today with complaints of severe back pain. Lab work within normal limits. Patient received 90 tablets of 2 mg of Dilaudid on . As per the patient hemodialysis is not helping. Medical consult was called for admission for admission, further management. Patient is quite upset and refused physical examination." 01/30/2020 Patient states her pain is not very well controlled today but is tolerable at times. Dr. Baum is still following the patient and adjusting pain medications as needed. She is continued on IV fluids as well as her home medications including Hydrea. Her hemoglobin is stable today at 10.1. I have added oral and rectal Dulcolax for constipation. She would also like MiraLAX av ailable. 01/31/2020 Patient still having some uncontrolled intermittently she seems a bit more comfo rtable today. Oncology is following and they have been adjusting pain medications as needed. No labs have been checked since 01/28 and we will check labs tomorrow but this only needs to be done intermittently to avoid causing additional anemia. 02/01/2020 Patient seems much more comfortable today in appears that her pain is better controlled. She states she is still having intermittent significant pain. She states her bowels are starting to move a bit more. All other interventions continue at the same dose and frequency. Reason For Visit: SICKLE CELL CRISIS Physical Exam Vital Signs: Temp Pulse Resp BP Pulse Ox 98.4 F 91 18 114/58 L 99 02/01/20 12:00 02/01/20 16:02 02/01/20 16:02 02/01/20 16:02 02/01/20 16:02 Intake & Output 01/31/20 02/01/20 02/02/20 06:59 06:59 06:59 Intake Total 3768 3663 1420 Output Total 900 Balance 3768 3663 520 Weight 78 kg 78 kg Exam: General appearance: PRESENT: no acute distress, well-developed, well-nourished, states her pain is a bit less today Head exam: PRESENT: atraumatic, normocephalic Eye exam: PRESENT: conjunctiva pink. ABSENT: scleral icterus Mouth exam: PRESENT: moist Respiratory exam: PRESENT: clear to auscultation samaria. ABSENT: rales, rhonchi, wheezes Cardiovascular exam: PRESENT: RRR. ABSENT: diastolic murmur, rubs, systolic murmur GI/Abdominal exam: PRESENT: normal bowel sounds, soft. ABSENT: distended, guarding, mass, organolmegaly, rebound, tenderness Neurological exam: PRESENT: alert, awake, oriented to person, oriented to place, oriented to time, oriented to situation Psychiatric exam: PRESENT: appropriate affect, normal mood Skin exam: PRESENT: dry, intact, warm Results Laboratory Results: 02/01/20 05:50 02/01/20 05:50 02/01/20 02/01/20 05:50 05:50 WBC 10.2 RBC 2.53 L Hgb 9.0 L Hct 25.5 L MCV 101 H MCH 35.8 H MCHC 35.4 RDW 26.5 H Plt Count 391 Seg Neutrophils % Not Reportable Sodium 140.8 Potassium 4.3 Chloride 104 Carbon Dioxide 29 Anion Gap 8 BUN 7 Creatinine 0.56 Est GFR ( Amer) > 60 Glucose 100 Calcium 9.2 01/25/20 12:20 CK-MB (CK-2) 0.34 Troponin I 0.014 NT-Pro-B Natriuret Pep 673 H Impressions: Chest X-Ray 01/24/20 10:02 IMPRESSION: NO ACUTE RADIOGRAPHIC FINDING IN THE CHEST. Lumbar Spine X-Ray 01/26/20 00:00 IMPRESSION: Biconcave vertebral bodies stable in appearance. No acute findings. Assessment and Plan - Diagnosis (1) Chronic, continuous use of opioids Is this a current diagnosis for this admission?: Yes (2) Acute sickle cell crisis Is this a current diagnosis for this admission?: Yes (3) Constipation Qualifiers: Constipation type: outlet dysfunction constipation Qualified Code(s): K59 .02 - Outlet dysfunction constipation Is this a current diagnosis for this admission?: Yes (4) Depression with anxiety Is this a current diagnosis for this admission?: Yes (5) History of DVT (deep vein thrombosis) Is this a current diagnosis for this admission?: Yes (6) Hyperbilirubinemia Is this a current diagnosis for this admission?: Yes (7) Sickle cell pain crisis Is this a current diagnosis for this admission?: Yes - Plan Summary Summary: (1) Chronic, continuous use of opioids Pain medication managed by Dr. Dl victor who follows the patient in the outpatient setting, consulted here Pain regimen increased for acute sickle cell crisis (2) Acute sickle cell crisis Is this a current diagnosis for this admission?: Yes Plan: She was seen by Dr. Baum today any suggest increasing the Dilaudid to 2 mg every 2 hours due to have pain. Suggest transfusion for hemoglobin under 7. Currently her hemoglobin is 10.3 01/25 follow-up with CBC in a.m. 01/28 CBC remains pretty stable with hemoglobin of 10. No indication for transfusion 01/30/2020pain incompletely controlled, Dr. Baum adjusting medications, IV fluids continue along with Hydrea and other home medications Pain medications staying the same per hematology Pain level slow to improve (3) Sickle cell anemia Qualifiers: Sickle-cell associated disorders: with unspecified crisis Qualified Code(s): D57.00 - Hb-SS disease with crisis, unspecified; D57.0 - Hb-SS disease with crisis Is this a current diagnosis for this admission?: Yes - Time Time Spent with patient: 15-24 minutes Medications reviewed and adjusted accordingly: Yes Anticipated Discharge Disposition: Home, Self Care Anticipated Discharge Timeframe: within 48 hours - Inpatient Certification Based on my medical assessment, after consideration of the patient's comorbidit ies, presenting symptoms, or acuity I expect that the services needed warrant INPATIENT care.: Yes I certify that my determination is in accordance with my understanding of [employer]'s requirements for reasonable and necessary INPATIENT services [42 CFR 412.3e].: Yes Medical Necessity: Need for Pain Control
[2020-02-01] MEDS: TRAZODONE HCL 50 MG TABLET PO SCH (23:11)
[2020-02-01] MEDS: ONDANSETRON HCL INJ/PF 4 MG/2 ML SDV IV PRN (23:26)
[2020-02-02] MEDS: HYDROMORPHONE HCL INJ/PF 2 MG/ML AMPULE IV PRN ×10 (01:17→22:58)
[2020-02-02] MEDS: NORMAL SALINE 1000 ML 1,000 ML IV PRN ×3 (01:19→20:50)
[2020-02-02] MEDS: IBUPROFEN 400 MG TABLET PO SCH ×3 (05:01→22:32)
[2020-02-02] MEDS: PANTOPRAZOLE SODIUM 40 MG TABLET.DR PO SCH (05:02)
[2020-02-02] MEDS: DIPHENHYDRAMINE HCL 50 MG/ML VIAL IV PRN ×2 (06:24→18:33)
--- NOTE | 2020-02-02 08:25 | PDOC PROGRESS REPORT ---
Subjective Progress Note for:: 02/02/20 Subjective:: Pain slightly improved, discussed we will try to begin weening dilaudid, will dec to 3mg IV q 2 hr prn Reason For Visit: SICKLE CELL CRISIS Physical Exam Vital Signs: Temp Pulse Resp BP Pulse Ox 97.5 F 101 H 18 122/72 99 02/02/20 00:00 02/02/20 02:00 02/02/20 00:00 02/02/20 00:00 02/02/20 00:00 Intake & Output 02/01/20 02/02/20 02/03/20 06:59 06:59 06:59 Intake Total 3663 3864 Output Total 900 Balance 3663 2964 Weight 78 kg 78 kg General appearance: PRESENT: no acute distress, well-developed, well-nourished Head exam: PRESENT: atraumatic, normocephalic Eye exam: PRESENT: conjunctiva pink, EOMI, PERRLA. ABSENT: scleral icterus Ear exam: PRESENT: normal external ear exam Mouth exam: PRESENT: moist, tongue midline Neck exam: ABSENT: carotid bruit, JVD, lymphadenopathy, thyromegaly Respiratory exam: PRESENT: clear to auscultation samaria. ABSENT: rales, rhonchi, wheezes Cardiovascular exam: PRESENT: RRR. ABSENT: diastolic murmur, rubs, systolic murmur Pulses: PRESENT: normal dorsalis pedis pul Vascular exam: PRESENT: normal capillary refill GI/Abdominal exam: PRESENT: normal bowel sounds, soft. ABSENT: distended, guarding, mass, organolmegaly, rebound, tenderness Rectal exam: PRESENT: deferred Extremities exam: PRESENT: full ROM. ABSENT: calf tenderness, clubbing, pedal edema Neurological exam: PRESENT: alert, awake, oriented to person, oriented to place, oriented to time, oriented to situation, CN II-XII grossly intact. ABSENT: motor sensory deficit Psychiatric exam: PRESENT: appropriate affect, normal mood. ABSENT: homicidal ideation, suicidal ideation Skin exam: PRESENT: dry, intact, warm. ABSENT: cyanosis, rash Results Laboratory Results: 02/01/20 05:50 02/01/20 05:50 01/25/20 12:20 CK-MB (CK-2) 0.34 Troponin I 0.014 NT-Pro-B Natriuret Pep 673 H Impressions: Chest X-Ray 01/24/20 10:02 IMPRESSION: NO ACUTE RADIOGRAPHIC FINDING IN THE CHEST. Lumbar Spine X-Ray 01/26/20 00:00 IMPRESSION: Biconcave vertebral bodies stable in appearance. No acute findings. 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 will follow tomorrow. (3) Chronic, continuous use of opioids Is this a current diagnosis for this admission?: Yes Plan: cont' current pain regimen - Time Time Spent with patient: 35 or more minutes
[2020-02-02] MEDS: HYDROXYUREA 500 MG CAPSULE PO SCH ×2 (08:30→22:32)
[2020-02-02] MEDS: CITALOPRAM HYDROBROMIDE 20 MG TABLET PO SCH ×2 (10:31→22:32)
[2020-02-02] MEDS: FOLIC ACID 1 MG TABLET PO SCH (10:31)
[2020-02-02] MEDS: CHOLECALCIFEROL (D3) 1,000 UNIT (25 MCG) TABLET PO SCH (10:32)
[2020-02-02] MEDS: BUSPIRONE HCL 10 MG TABLET PO SCH ×2 (10:32→17:08)
--- NOTE | 2020-02-02 17:58 | PDOC PROGRESS REPORT ---
Subjective Subjective:: Per Previous Physician: "CASSANDRA MIDDLETON is a 24 year old female with history of sickle cell anemia with multiple admissions with complaints of severe back pain recently in the hospital for 14 days discharged on of this month came back yesterday to the ER given IV Dilaudid and was discharged came back again today with complaints of severe back pain. Lab work within normal limits. Patient received 90 tablets of 2 mg of Dilaudid on . As per the patient hemodialysis is not helping. Medical consult was called for admission for admission, further management. Patient is quite upset and refused physical examination." 01/30/2020 Patient states her pain is not very well controlled today but is tolerable at times. Dr. Baum is still following the patient and adjusting pain medications as needed. She is continued on IV fluids as well as her home medications including Hydrea. Her hemoglobin is stable today at 10.1. I have added oral and rectal Dulcolax for constipation. She would also like MiraLAX av ailable. 01/31/2020 Patient still having some uncontrolled intermittently she seems a bit more comfo rtable today. Oncology is following and they have been adjusting pain medications as needed. No labs have been checked since 01/28 and we will check labs tomorrow but this only needs to be done intermittently to avoid causing additional anemia. 02/01/2020 Patient seems much more comfortable today in appears that her pain is better controlled. She states she is still having intermittent significant pain. She states her bowels are starting to move a bit more. All other interventions continue at the same dose and frequency. 02/02/2020 Doing a bit better today. Pain seems improved. heme/onc following and kept meds the same today. possible DC in the next day or 2. Pt needs to have a BM but is reluctant to have enema. Reason For Visit: SICKLE CELL CRISIS Physical Exam Vital Signs: Temp Pulse Resp BP Pulse Ox 97.8 F 80 16 118/60 98 02/02/20 16:18 02/02/20 16:18 02/02/20 16:18 02/02/20 16:18 02/02/20 16:18 Intake & Output 02/01/20 02/02/20 02/03/20 06:59 06:59 06:59 Intake Total 3663 3864 1118 Output Total 900 Balance 3663 2964 1118 Weight 78 kg 78 kg 78 kg Exam: General appearance: PRESENT: no acute distress, well-developed, well-nourished, states her pain is a bit less today, boyfriend in bed with her Head exam: PRESENT: atraumatic, normocephalic Eye exam: PRESENT: conjunctiva pink. ABSENT: scleral icterus Mouth exam: PRESENT: moist Respiratory exam: PRESENT: clear to auscultation samaria. ABSENT: rales, rhonchi, wheezes Cardiovascular exam: PRESENT: RRR. ABSENT: diastolic murmur, rubs, systolic murmur GI/Abdominal exam: PRESENT: normal bowel sounds, soft. ABSENT: distended, guarding, mass, organolmegaly, rebound, tenderness Neurological exam: PRESENT: alert, awake, oriented to person, oriented to place, oriented to time, oriented to situation Psychiatric exam: PRESENT: appropriate affect, normal mood Skin exam: PRESENT: dry, intact, warm Results Laboratory Results: 02/01/20 05:50 02/01/20 05:50 01/25/20 12:20 CK-MB (CK-2) 0.34 Troponin I 0.014 NT-Pro-B Natriuret Pep 673 H Impressions: Chest X-Ray 01/24/20 10:02 IMPRESSION: NO ACUTE RADIOGRAPHIC FINDING IN THE CHEST. Lumbar Spine X-Ray 01/26/20 00:00 IMPRESSION: Biconcave vertebral bodies stable in appearance. No acute findings. Assessment and Plan - Diagnosis (1) Chronic, continuous use of opioids Is this a current diagnosis for this admission?: Yes (2) Acute sickle cell crisis Is this a current diagnosis for this admission?: Yes (3) Constipation Qualifiers: Constipation type: outlet dysfunction constipation Qualified Code(s): K59.02 - Outlet dysfunction constipation Is this a current diagnosis for this admission?: Yes (4) Depression with anxiety Is this a current diagnosis for this admission?: Yes (5) History of DVT (deep vein thrombosis) Is this a current diagnosis for this admission?: Yes (6) Hyperbilirubinemia Is this a current diagnosis for this admission?: Yes (7) Sickle cell pain crisis Is this a current diagnosis for this admission?: Yes - Plan Summary Summary: (1) Chronic, continuous use of opioids Pain medication managed by Dr. Dl victor who follows the patient in the outpatient setting, consulted here Pain regimen increased for acute sickle cell crisis (2) Acute sickle cell crisis Is this a current diagnosis for this admission?: Yes Plan: She was seen by Dr. Baum today any suggest increasing the Dilaudid to 2 mg every 2 hours due to have pain. Suggest transfusion for hemoglobin under 7. Currently her hemoglobin is 10.3 01/25 follow-up with CBC in a.m. 01/28 CBC remains pretty stable with hemoglobin of 10. No indication for transfusion 01/30/2020pain incompletely controlled, Dr. Baum adjusting medications, IV fluids continue along with Hydrea and other home medications Pain medications staying the same per hematology Pain level slow to improve -Needs BM, doesn't want enema unless no other options (3) Sickle cell anemia Qualifiers: Sickle-cell associated disorders: with unspecified crisis Qualified Code(s): D57.00 - Hb-SS disease with crisis, unspecified; D57.0 - Hb-SS disease with crisis Is this a current diagnosis for this admission?: Yes - Time Time Spent with patient: 15-24 minutes Medications reviewed and adjusted accordingly: Yes Anticipated Discharge Disposition: Home, Self Care Anticipated Discharge Timeframe: within 24 hours - Inpatient Certification Based on my medical assessment, after consideration of the patient's comorbidities, presenting symptoms, or acuity I expect that the services needed warrant INPATIENT care.: Yes I certify that my determination is in accordance with my understanding of Medicare's requirements for reasonable and necessary INPATIENT services [42 CFR 412.3e].: Yes Medical Necessity: Significant Comorbidiites Make Outpatient Treatment Too Risky, Need Close Monitoring Due to Risk of Patient Decompensation, Need for Pain Control, Risk of Complication if Not Cared For in Hospital, Risk of Diagnosis Which Will Require Inpatient Eval/Care/Monitoring
[2020-02-02] MEDS: TRAZODONE HCL 50 MG TABLET PO SCH (22:32)
[2020-02-03] MEDS: HYDROMORPHONE HCL INJ/PF 2 MG/ML AMPULE IV PRN ×9 (01:02→22:19)
[2020-02-03] MEDS: DIPHENHYDRAMINE HCL 50 MG/ML VIAL IV PRN ×2 (01:02→08:14)
[2020-02-03] MEDS: NORMAL SALINE 1000 ML 1,000 ML IV PRN ×3 (03:12→19:35)
[2020-02-03] MEDS: PANTOPRAZOLE SODIUM 40 MG TABLET.DR PO SCH ×2 (05:15→05:19)
[2020-02-03] MEDS: IBUPROFEN 400 MG TABLET PO SCH ×4 (05:15→22:19)
[2020-02-03 06:15] LABS: ANION GAP 8 (5-19); BLOOD UREA NITROGEN 6 mg/dL (7-20); CALCIUM 8.9 mg/dL (8.4-10.2); CARBON DIOXIDE 28 mmol/L (22-30); CHLORIDE 105 mmol/L (98-107); GLUCOSE 111 mg/dL (75-110)
[2020-02-03 06:18] LABS: HEMATOCRIT 25.7 % (36.0-47.0); MEAN CORPUSCULAR HEMOGLOBIN 35.9 pg (27.0-33.4); MEAN CORPUSCULAR HGB CONC 35.2 g/dL (32.0-36.0); MEAN CORPUSCULAR VOLUME 102 fl (80-97); PLATELET COUNT 369 10^3/uL (150-450); RED BLOOD COUNT 2.51 10^6/uL (3.72-5.28); RED CELL DISTRIBUTION WIDTH 26.5 % (11.5-14.0); WHITE BLOOD COUNT 10.4 10^3/uL (4.0-10.5)
[2020-02-03 06:49] LABS: ABSOLUTE LYMPHOCYTES# (MANUAL) 3.2 10^3/uL (0.5-4.7); ABSOLUTE MONOCYTES # (MANUAL) 0.8 10^3/uL (0.1-1.4); BASOPHILS % (MANUAL) 5 % (0-2); EOSINOPHILS % (MANUAL) 6 % (0-6); LYMPHOCYTES % (MANUAL) 31 % (13-45); MONOCYTES % (MANUAL) 8 % (3-13); NUCLEATED RED BLOOD CELLS 10 /100 WBC (0); SEGMENTED NEUTROPHILS % (MAN) 50 % (42-78); TOTAL CELLS COUNTED 100
[2020-02-03 06:53] LABS: ANISOCYTOSIS 3+; POIKILOCYTOSIS 2+; POLYCHROMASIA 2+; SCHISTOCYTES SLIGHT; SICKLE RED CELLS 1+; TARGET CELLS 1+; TEAR DROP CELLS SLIGHT
[2020-02-03 06:54] LABS: PAPPENHEIMER BODIES PRESENT; PLATELET COMMENT ADEQUATE
--- NOTE | 2020-02-03 08:03 | PDOC PROGRESS REPORT ---
Subjective Progress Note for:: 02/03/20 Subjective:: Pt again a little better. We discussed plans. Agreed that she will hopefully be ready for dc tomorrow. Will decrease dilaudid to 2mg IV q 2 hours prn, will also send new rx for home for dilaudid 4mg po q 4 hours prn, she will come friday to here for 1 L NS IVF. She did have bm yesterday and did walk the floor. Reason For Visit: SICKLE CELL CRISIS Physical Exam Vital Signs: Temp Pulse Resp BP Pulse Ox 98.0 F 79 16 104/48 L 98 02/03/20 04:19 02/03/20 04:19 02/03/20 04:19 02/03/20 04:19 02/03/20 04:19 Intake & Output 02/02/20 02/03/20 02/04/20 06:59 06:59 06:59 Intake Total 3864 4086 Output Total 900 Balance 2964 4086 Weight 78 kg 78 kg General appearance: PRESENT: no acute distress, well-developed, well-nourished Head exam: PRESENT: atraumatic, normocephalic Eye exam: PRESENT: conjunctiva pink, EOMI, PERRLA. ABSENT: scleral icterus Ear exam: PRESENT: normal external ear exam Mouth exam: PRESENT: moist, tongue midline Neck exam: ABSENT: carotid bruit, JVD, lymphadenopathy, thyromegaly Respiratory exam: PRESENT: clear to auscultation samaria. ABSENT: rales, rhonchi, wheezes Cardiovascular exam: PRESENT: RRR. ABSENT: diastolic murmur, rubs, systolic murmur Pulses: PRESENT: normal dorsalis pedis pul Vascular exam: PRESENT: normal capillary refill GI/Abdominal exam: PRESENT: normal bowel sounds, soft. ABSENT: distended, guarding, mass, organolmegaly, rebound, tenderness Rectal exam: PRESENT: deferred Extremities exam: PRESENT: full ROM. ABSENT: calf tenderness, clubbing, pedal edema Neurological exam: PRESENT: alert, awake, oriented to person, oriented to place, oriented to time, oriented to situation, CN II-XII grossly intact. ABSENT: motor sensory deficit Psychiatric exam: PRESENT: appropriate affect, normal mood. ABSENT: homicidal ideation, suicidal ideation Skin exam: PRESENT: dry, intact, warm. ABSENT: cyanosis, rash Results Laboratory Results: 02/03/20 05:15 02/03/20 05:15 02/03/20 02/03/20 05:15 05:15 WBC 10.4 RBC 2.51 L Hgb 9.0 L Hct 25.7 L MCV 102 H MCH 35.9 H MCHC 35.2 RDW 26.5 H Plt Count 369 Seg Neutrophils % Not Reportable Sodium 140.6 Potassium 4.0 Chloride 105 Carbon Dioxide 28 Anion Gap 8 BUN 6 L Creatinine 0.54 Est GFR ( Amer) > 60 Glucose 111 H Calcium 8.9 01/25/20 12:20 CK-MB (CK-2) 0.34 Troponin I 0.014 NT-Pro-B Natriuret Pep 673 H Impressions: Chest X-Ray 01/24/20 10:02 IMPRESSION: NO ACUTE RADIOGRAPHIC FINDING IN THE CHEST. Lumbar Spine X-Ray 01/26/20 00:00 IMPRESSION: Biconcave vertebral bodies stable in appearance. No acute findings. Assessment & Plan - Diagnosis (1) Acute sickle cell crisis Is this a current diagnosis for this admission?: Yes Plan: decrease dilaudid to 2mg IV q 2 hours. Plan dc tomorrow. 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
[2020-02-03] MEDS: HYDROXYUREA 500 MG CAPSULE PO SCH ×2 (08:10→22:21)
[2020-02-03] MEDS: CHOLECALCIFEROL (D3) 1,000 UNIT (25 MCG) TABLET PO SCH (10:37)
[2020-02-03] MEDS: CITALOPRAM HYDROBROMIDE 20 MG TABLET PO SCH ×2 (10:37→22:19)
[2020-02-03] MEDS: BUSPIRONE HCL 10 MG TABLET PO SCH ×2 (10:37→17:10)
[2020-02-03] MEDS: FOLIC ACID 1 MG TABLET PO SCH (10:38)
--- NOTE | 2020-02-03 17:28 | PDOC PROGRESS REPORT ---
Subjective Subjective:: Per Previous Physician: "CASSANDRA MIDDLETON is a 24 year old female with history of sickle cell anemia with multiple admissions with complaints of severe back pain recently in the hospital for 14 days discharged on of this month came back yesterday to the ER given IV Dilaudid and was discharged came back again today with complaints of severe back pain. Lab work within normal limits. Patient received 90 tablets of 2 mg of Dilaudid on . As per the patient hemodialysis is not helping. Medical consult was called for admission for admission, further management. Patient is quite upset and refused physical examination." 01/30/2020 Patient states her pain is not very well controlled today but is tolerable at times. Dr. Baum is still following the patient and adjusting pain medications as needed. She is continued on IV fluids as well as her home medications including Hydrea. Her hemoglobin is stable today at 10.1. I have added oral and rectal Dulcolax for constipation. She would also like MiraLAX av ailable. 01/31/2020 Patient still having some uncontrolled intermittently she seems a bit more comfo rtable today. Oncology is following and they have been adjusting pain medications as needed. No labs have been checked since 01/28 and we will check labs tomorrow but this only needs to be done intermittently to avoid causing additional anemia. 02/01/2020 Patient seems much more comfortable today in appears that her pain is better controlled. She states she is still having intermittent significant pain. She states her bowels are starting to move a bit more. All other interventions continue at the same dose and frequency. 02/02/2020 Doing a bit better today. Pain seems improved. heme/onc following and kept meds the same today. possible DC in the next day or 2. Pt needs to have a BM but is reluctant to have enema. 02/03/2020 Patient doing well, states she had a good solid normal-sized bowel movement today and that she does not need an enema. Continue current pain regimen as outlined by oncology. Continue bowel regimen. Patient states she will likely be able to go home tomorrow. Reason For Visit: SICKLE CELL CRISIS Physical Exam Vital Signs: Temp Pulse Resp BP Pulse Ox 98.0 F 77 15 100/57 L 99 02/03/20 11:55 02/03/20 11:55 02/03/20 11:55 02/03/20 11:55 02/03/20 11:55 Intake & Output 02/02/20 02/03/20 02/04/20 06:59 06:59 06:59 Intake Total 3864 4086 1120 Output Total 900 Balance 2964 4086 1120 Weight 78 kg 78 kg Exam: General appearance: PRESENT: no acute distress, well-developed, well-nourished, states her pain is less today Head exam: PRESENT: atraumatic, normocephalic Eye exam: PRESENT: conjunctiva pink. ABSENT: scleral icterus Mouth exam: PRESENT: moist Respiratory exam: PRESENT: clear to auscultation samaria. ABSENT: rales, rhonchi, wheezes Cardiovascular exam: PRESENT: RRR. ABSENT: diastolic murmur, rubs, systolic murmur GI/Abdominal exam: PRESENT: normal bowel sounds, soft. ABSENT: distended, guarding, mass, organolmegaly, rebound, tenderness Neurological exam: PRESENT: alert, awake, oriented to person, oriented to place, oriented to time, oriented to situation Psychiatric exam: PRESENT: appropriate affect, normal mood Skin exam: PRESENT: dry, intact, warm Results Laboratory Results: 02/03/20 05:15 02/03/20 05:15 02/03/20 02/03/20 05:15 05:15 WBC 10.4 RBC 2.51 L Hgb 9.0 L Hct 25.7 L MCV 102 H MCH 35.9 H MCHC 35.2 RDW 26.5 H Plt Count 369 Seg Neutrophils % Not Reportable Sodium 140.6 Potassium 4.0 Chloride 105 Carbon Dioxide 28 Anion Gap 8 BUN 6 L Creatinine 0.54 Est GFR ( Amer) > 60 Glucose 111 H Calcium 8.9 01/25/20 12:20 CK-MB (CK-2) 0.34 Troponin I 0.014 NT-Pro-B Natriuret Pep 673 H Impressions: Chest X-Ray 01/24/20 10:02 IMPRESSION: NO ACUTE RADIOGRAPHIC FINDING IN THE CHEST. Lumbar Spine X-Ray 01/26/20 00:00 IMPRESSION: Biconcave vertebral bodies stable in appearance. No acute findings. Assessment and Plan - Diagnosis (1) Chronic, continuous use of opioids Is this a current diagnosis for this admission?: Yes (2) Acute sickle cell crisis Is this a current diagnosis for this admission?: Yes (3) Constipation Qualifiers: Constipation type: outlet dysfunction constipation Qualified Code(s): K59.02 - Outlet dysfunction constipation Is this a current diagnosis for this admission?: Yes (4) Depression with anxiety Is this a current diagnosis for this admission?: Yes (5) History of DVT (deep vein thrombosis) Is this a current diagnosis for this admission?: Yes (6) Hyperbilirubinemia Is this a current diagnosis for this admission?: Yes (7) Sickle cell pain crisis Is this a current diagnosis for this admission?: Yes - Plan Summary Summary: (1) Chronic, continuous use of opioids Pain medication managed by Dr. Dl victor who follows the patient in the outpatie nt setting, consulted here Pain regimen increased for acute sickle cell crisis (2) Acute sickle cell crisis Is this a current diagnosis for this admission?: Yes Plan: She was seen by Dr. Baum today any suggest increasing the Dilaudid to 2 mg every 2 hours due to have pain. Suggest transfusion for hemoglobin under 7. Currently her hemoglobin is 10.3 01/25 follow-up with CBC in a.m. 01/28 CBC remains pretty stable with hemoglobin of 10. No indication for transfusion 01/30/2020pain incompletely controlled, Dr. Baum adjusting medications, IV fluids continue along with Hydrea and other home medications Pain medications staying the same per hematology Pain level steadily improving -Had a normal sized BM on 02/02 (3) Sickle cell anemia Qualifiers: Sickle-cell associated disorders: with unspecified crisis Qualified Code(s): D57.00 - Hb-SS disease with crisis, unspecified; D57.0 - Hb-SS disease with crisis Is this a current diagnosis for this admission?: Yes - Time Time Spent with patient: 15-24 minutes Medications reviewed and adjusted accordingly: Yes Anticipated Discharge Disposition: Home, Self Care Anticipated Discharge Timeframe: within 24 hours - Inpatient Certification Based on my medical assessment, after consideration of the patient's comorbidi ties, presenting symptoms, or acuity I expect that the services needed warrant INPATIENT care.: Yes I certify that my determination is in accordance with my understanding of Jaime roldan's requirements for reasonable and necessary INPATIENT services [42 CFR 412.3e].: Yes Medical Necessity: Significant Comorbidiites Make Outpatient Treatment Too Risky, Need Close Monitoring Due to Risk of Patient Decompensation, Need for Pain Control, Risk of Complication if Not Cared For in Hospital, Risk of Diagnosis Which Will Require Inpatient Eval/Care/Monitoring
[2020-02-03] MEDS: TRAZODONE HCL 50 MG TABLET PO SCH (22:18)
[2020-02-04] MEDS: HYDROMORPHONE HCL INJ/PF 2 MG/ML AMPULE IV PRN ×8 (00:36→16:40)
[2020-02-04] MEDS: NORMAL SALINE 1000 ML 1,000 ML IV PRN ×2 (04:19→12:10)
[2020-02-04] MEDS: IBUPROFEN 400 MG TABLET PO SCH ×2 (05:43→14:29)
[2020-02-04] MEDS: PANTOPRAZOLE SODIUM 40 MG TABLET.DR PO SCH (05:43)
[2020-02-04] MEDS: DIPHENHYDRAMINE HCL 50 MG/ML VIAL IV PRN ×2 (07:37→17:21)
--- NOTE | 2020-02-04 07:42 | PDOC PROGRESS REPORT ---
Subjective Progress Note for:: 02/04/20 Subjective:: Patient seems better this morning. She is ready for discharge. Pain medication has been called in. Reason For Visit: SICKLE CELL CRISIS Physical Exam Vital Signs: Temp Pulse Resp BP Pulse Ox 98.0 F 75 16 127/68 H 99 02/03/20 23:58 02/04/20 02:00 02/03/20 23:58 02/03/20 23:58 02/03/20 23:58 Intake & Output 02/03/20 02/04/20 02/05/20 06:59 06:59 06:59 Intake Total 4086 3808 Balance 4086 3808 Weight 78 kg 78 kg General appearance: PRESENT: no acute distress, well-developed, well-nourished Head exam: PRESENT: atraumatic, normocephalic Eye exam: PRESENT: conjunctiva pink, EOMI, PERRLA. ABSENT: scleral icterus Ear exam: PRESENT: normal external ear exam Mouth exam: PRESENT: moist, tongue midline Neck exam: ABSENT: carotid bruit, JVD, lymphadenopathy, thyromegaly Respiratory exam: PRESENT: clear to auscultation samaria. ABSENT: rales, rhonchi, wheezes Cardiovascular exam: PRESENT: RRR. ABSENT: diastolic murmur, rubs, systolic murmur Pulses: PRESENT: normal dorsalis pedis pul Vascular exam: PRESENT: normal capillary refill GI/Abdominal exam: PRESENT: normal bowel sounds, soft. ABSENT: distended, guarding, mass, organolmegaly, rebound, tenderness Rectal exam: PRESENT: deferred Extremities exam: PRESENT: full ROM. ABSENT: calf tenderness, clubbing, pedal edema Neurological exam: PRESENT: alert, awake, oriented to person, oriented to place, oriented to time, oriented to situation, CN II-XII grossly intact. ABSENT: motor sensory deficit Psychiatric exam: PRESENT: appropriate affect, normal mood. ABSENT: homicidal ideation, suicidal ideation Skin exam: PRESENT: dry, intact, warm. ABSENT: cyanosis, rash Results Laboratory Results: 02/03/20 05:15 02/03/20 05:15 01/25/20 12:20 CK-MB (CK-2) 0.34 Troponin I 0.014 NT-Pro-B Natriuret Pep 673 H Impressions: Chest X-Ray 01/24/20 10:02 IMPRESSION: NO ACUTE RADIOGRAPHIC FINDING IN THE CHEST. Lumbar Spine X-Ray 01/26/20 00:00 IMPRESSION: Biconcave vertebral bodies stable in appearance. No acute findings. Assessment & Plan - Diagnosis (1) Acute sickle cell crisis Is this a current diagnosis for this admission?: Yes Plan: Improved enough for discharge but will need outpatient care. We made arrangements for IV fluids in office. 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 (3) Chronic, continuous use of opioids Is this a current diagnosis for this admission?: Yes Plan: Continue per above plan - Time Time Spent with patient: Less than 15 minutes
[2020-02-04] MEDS: HYDROXYUREA 500 MG CAPSULE PO SCH (08:12)
[2020-02-04] MEDS: CHOLECALCIFEROL (D3) 1,000 UNIT (25 MCG) TABLET PO SCH (10:00)
[2020-02-04] MEDS: BUSPIRONE HCL 10 MG TABLET PO SCH ×2 (10:00→17:22)
[2020-02-04] MEDS: CITALOPRAM HYDROBROMIDE 20 MG TABLET PO SCH (10:00)
[2020-02-04] MEDS: FOLIC ACID 1 MG TABLET PO SCH (10:00)
--- NOTE | 2020-02-04 12:57 | PDOC DISCHARGE SUMMARY ---
Impression - Admit/DC Date/PCP Admission Date/Primary Care Provider: 01/24/20 15:11 JOIE MOREIRA MD Discharge Date: 02/04/20 - Discharge Diagnosis (1) Chronic, continuous use of opioids Is this a current diagnosis for this admission?: Yes (2) Acute sickle cell crisis Is this a current diagnosis for this admission?: Yes (3) Constipation Is this a current diagnosis for this admission?: Yes (4) Depression with anxiety Is this a current diagnosis for this admission?: Yes (5) History of DVT (deep vein thrombosis) Is this a current diagnosis for this admission?: Yes (6) Hyperbilirubinemia Is this a current diagnosis for this admission?: Yes (7) Sickle cell pain crisis Is this a current diagnosis for this admission?: Yes - Assessment Summary: (1) Chronic, continuous use of opioids Pain medication managed by Dr. Dl victor who follows the patient in the outpatient setting, consulted here Pain regimen increased for acute sickle cell crisis (2) Acute sickle cell crisisresolved Is this a current diagnosis for this admission?: Yes Plan: She was seen by Dr. Moreira today any suggest increasing the Dilaudid to 2 mg every 2 hours due to have pain. Suggest transfusion for hemoglobin under 7. Currently her hemoglobin is 10.3 01/25 follow-up with CBC in a.m. 01/28 CBC remains pretty stable with hemoglobin of 10. No indication for transfusion 01/30/2020pain incompletely controlled, Dr. Moreira adjusting medications, IV fluids continue along with Hydrea and other home medications Pain medications staying the same per hematology Pain level steadily improving -Had a normal sized BM on 02/02 Cleared for discharge by sustainable agriculture specialist, patient in agreement (3) Sickle cell anemia Qualifiers: Sickle-cell associated disorders: with unspecified crisis Qualified Code(s): D57.00 - Hb-SS disease with crisis, unspecified; D57.0 - Hb-SS disease with crisis Is this a current diagnosis for this admission?: Yes - Additional Information Resuscitation Status: Full Code Discharge Diet: As Tolerated, Regular Discharge Activity: Activity As Tolerated, Balance Activity w/Rest Referrals: JOIE MOREIRA MD [Primary Care Provider] - 02/07/20 10:30 am Home Medications: Buspirone HCl [Buspar 10 mg Tablet] 5 mg PO BID 01/05/20 Cholecalciferol (Vitamin D3) [Vitamin D3 1000 Unit Tablet] 1,000 unit PO DAILY 01/05/20 Citalopram Hydrobromide [Celexa 20 mg Tablet] 20 mg PO Q12 01/05/20 Diphenhydramine HCl [Benadryl] 25 mg PO Q6HP PRN 01/05/20 Folic Acid [Folvite 1 mg Tablet] 1 mg PO DAILY 01/05/20 Glutamine [Endari] 3 packet PO BID 01/05/20 Hydromorphone HCl [Dilaudid 2 mg Tablet] 2 mg PO Q6HP PRN 01/05/20 Hydroxyurea [Hydrea 500 mg Capsule] 1,000 mg PO QAM 01/05/20 Hydroxyurea [Hydrea 500 mg Capsule] 500 mg PO QHS 01/05/20 Ibuprofen [Motrin 400 mg Tablet] 400 mg PO Q8 01/05/20 Pregabalin [Lyrica 75 mg Capsule] 75 mg PO Q8HP PRN 01/05/20 Trazodone HCl [Desyrel 50 mg Tablet] 50 mg PO QHS 01/05/20 History of Present Illiness History of Present Illness: Per Previous Physician: "Per Previous Physician: "CASSANDRA MIDDLETON is a 24 year old female with history of sickle cell anemia with multiple admissions with complaints of severe back pain recently in the hospital for 14 days discharged on of this month came back yesterday to the ER given IV Dilaudid and was discharged came back again today with complaints of severe back pain. Lab work within normal limits. Patient received 90 tablets of 2 mg of Dilaudid on . As per the patient hemodialysis is not helping. Medical consult was called for admission for admission, further management. Patient is quite upset and refused physical examination." " Physical Exam Vital Signs: Temp Pulse Resp BP Pulse Ox 97.9 F 71 17 118/62 97 02/04/20 07:26 02/04/20 07:26 02/04/20 07:26 02/04/20 07:26 02/04/20 07:26 Intake & Output 02/03/20 02/04/20 02/05/20 06:59 06:59 06:59 Intake Total 4086 3808 981 Balance 4086 3808 981 Weight 78 kg 78 kg Exam: General appearance: PRESENT: no acute distress, well-developed, well-nourished, states she feels well and would like to go home Head exam: PRESENT: atraumatic, normocephalic Eye exam: PRESENT: conjunctiva pink. ABSENT: scleral icterus Mouth exam: PRESENT: moist Respiratory exam: PRESENT: clear to auscultation samaria. ABSENT: rales, rhonchi, wheezes Cardiovascular exam: PRESENT: RRR. ABSENT: diastolic murmur, rubs, systolic murmur GI/Abdominal exam: PRESENT: normal bowel sounds, soft. ABSENT: distended, guarding, mass, organolmegaly, rebound, tenderness Neurological exam: PRESENT: alert, awake, oriented to person, oriented to place, oriented to time, oriented to situation Psychiatric exam: PRESENT: appropriate affect, normal mood Skin exam: PRESENT: dry, intact, warm Results Laboratory Results: WBC 10.4 10^3/uL (4.0-10.5) 02/03/20 05:15 RBC 2.51 10^6/uL (3.72-5.28) L 02/03/20 05:15 Hgb 9.0 g/dL (12.0-15.5) L 02/03/20 05:15 Hct 25.7 % (36.0-47.0) L 02/03/20 05:15 MCV 102 fl (80-97) H 02/03/20 05:15 MCH 35.9 pg (27.0-33.4) H 02/03/20 05:15 MCHC 35.2 g/dL (32.0-36.0) 02/03/20 05:15 RDW 26.5 % (11.5-14.0) H 02/03/20 05:15 Plt Count 369 10^3/uL (150-450) 02/03/20 05:15 Lymph % (Auto) Not Reportable 02/03/20 05:15 Waldo % (Auto) Not Reportable 02/03/20 05:15 Eos % (Auto) Not Reportable 02/03/20 05:15 Baso % (Auto) Not Reportable 02/03/20 05:15 Reticulocyte # 0.035 10^6/uL (0.028-0.122) 01/24/20 12:10 Absolute Neuts (auto) Not Reportable 02/03/20 05:15 Absolute Lymphs (auto) Not Reportable 02/03/20 05:15 Absolute Monos (auto) Not Reportable 02/03/20 05:15 Absolute Eos (auto) Not Reportable 02/03/20 05:15 Absolute Basos (auto) Not Reportable 02/03/20 05:15 Total Counted 100 02/03/20 05:15 Seg Neutrophils % Not Reportable 02/03/20 05:15 Seg Neuts % (Manual) 50 % (42-78) 02/03/20 05:15 Lymphocytes % (Manual) 31 % (13-45) 02/03/20 05:15 Atypical Lymphs % 1 % (0) 01/27/20 06:58 Monocytes % (Manual) 8 % (3-13) 02/03/20 05:15 Eosinophils % (Manual) 6 % (0-6) 02/03/20 05:15 Basophils % (Manual) 5 % (0-2) H 02/03/20 05:15 Abs Neuts (Manual) 5.2 10^3/uL (1.7-8.2) 02/03/20 05:15 Abs Lymphs (Manual) 3.2 10^3/uL (0.5-4.7) 02/03/20 05:15 Abs Monocytes (Manual) 0.8 10^3/uL (0.1-1.4) 02/03/20 05:15 Absolute Eos (Manual) 0.6 10^3/uL (0.0-0.6) 02/03/20 05:15 Abs Basophils (Manual) 0.5 10^3/uL (0.0-0.2) H 02/03/20 05:15 Nucleated RBCs 10 /100 WBC (0) 02/03/20 05:15 Smudge Cells PRESENT 02/01/20 05:50 Toxic Granulation SLIGHT 02/01/20 05:50 Platelet Comment ADEQUATE 02/03/20 05:15 Polychromasia 2+ 02/03/20 05:15 Poikilocytosis 2+ 02/03/20 05:15 Anisocytosis 3+ 02/03/20 05:15 Macrocytosis 1+ 02/03/20 05:15 Pappenheimer Bodies PRESENT 02/03/20 05:15 Sickle Cells 1+ 02/03/20 05:15 Target Cells 1+ 02/03/20 05:15 Tear Drop Cells SLIGHT 02/03/20 05:15 Ovalocytes SLIGHT 01/25/20 05:40 Stomatocytes 1+ 01/24/20 12:10 Schistocytes SLIGHT 02/03/20 05:15 RBC Morph Comment 02/03/20 05:15 Retic Count (auto) 1.16 % (0.66-2.85) 01/24/20 12:10 Sodium 140.6 mmol/L (137-145) 02/03/20 05:15 Potassium 4.0 mmol/L (3.6-5.0) 02/03/20 05:15 Chloride 105 mmol/L (98-107) 02/03/20 05:15 Carbon Dioxide 28 mmol/L (22-30) 02/03/20 05:15 Anion Gap 8 (5-19) 02/03/20 05:15 BUN 6 mg/dL (7-20) L 02/03/20 05:15 Creatinine 0.54 mg/dL (0.52-1.25) 02/03/20 05:15 Est GFR ( Amer) > 60 (>60) 02/03/20 05:15 Est GFR (MDRD) Non-Af > 60 (>60) 02/03/20 05:15 Glucose 111 mg/dL (75-110) H 02/03/20 05:15 Hemoglobin A1c % 4.5 % (4.7-6.0) L 01/25/20 12:20 Calcium 8.9 mg/dL (8.4-10.2) 02/03/20 05:15 Magnesium 1.8 mg/dL (1.6-2.3) 01/25/20 05:40 Total Bilirubin 3.5 mg/dL (0.2-1.3) H 01/25/20 05:40 Direct Bilirubin 0.3 mg/dL (0.0-0.4) 01/25/20 05:40 Neonat Total Bilirubin Not Reportable 01/25/20 05:40 Neonat Direct Bilirubin Not Reportable 01/25/20 05:40 Neonat Indirect Bili Not Reportable 01/25/20 05:40 AST 29 U/L (14-36) 01/25/20 05:40 ALT 20 U/L (<35) 01/25/20 05:40 Alkaline Phosphatase 83 U/L (38-126) 01/25/20 05:40 CK-MB (CK-2) 0.34 ng/mL (<4.55) 01/25/20 12:20 Troponin I 0.014 ng/mL 01/25/20 12:20 NT-Pro-B Natriuret Pep 673 pg/mL (<125) H 01/25/20 12:20 Total Protein 6.6 g/dL (6.3-8.2) 01/25/20 05:40 Albumin 3.8 g/dL (3.5-5.0) 01/25/20 05:40 Triglycerides 117 mg/dL (<150) 01/25/20 05:40 Cholesterol 126.32 mg/dL (0-200) 01/25/20 05:40 LDL Cholesterol Direct 88 mg/dL (<100) 01/25/20 05:40 VLDL Cholesterol 23.0 mg/dL (10-31) 01/25/20 05:40 HDL Cholesterol 27 mg/dL (>40) L 01/25/20 05:40 Lipase 56.5 U/L (23-300) 01/25/20 05:40 TSH 3.36 uIU/mL (0.47-4.68) 01/25/20 05:40 Urine Color YELLOW 01/24/20 13:50 Urine Appearance CLEAR 01/24/20 13:50 Urine pH 6.0 (5.0-9.0) 01/24/20 13:50 Ur Specific [place] 1.011 01/24/20 13:50 Urine Protein NEGATIVE mg/dL (NEGATIVE) 01/24/20 13:50 Urine Glucose (UA) NEGATIVE mg/dL (NEGATIVE) 01/24/20 13:50 Urine Ketones NEGATIVE mg/dL (NEGATIVE) 01/24/20 13:50 Urine Blood NEGATIVE (NEGATIVE) 01/24/20 13:50 Urine Nitrite (Reflex) NEGATIVE (NEGATIVE) 01/24/20 13:50 Urine Bilirubin NEGATIVE (NEGATIVE) 01/24/20 13:50 Urine Urobilinogen 2.0 mg/dL (<2.0) H 01/24/20 13:50 Leukocyte Esterase Rfl NEGATIVE (NEGATIVE) 01/24/20 13:50 Urine WBC (Reflex) 1 /HPF 01/24/20 13:50 Urine Mucus (Auto) RARE /LPF 01/24/20 13:50 Urine Ascorbic Acid NEGATIVE (NEGATIVE) 01/24/20 13:50 Urine Opiates Screen UNCONFIRMED POSITIVE 01/24/20 13:50 Urine Methadone Screen NEGATIVE 01/24/20 13:50 Ur Barbiturates Screen NEGATIVE 01/24/20 13:50 Ur Phencyclidine Scrn NEGATIVE 01/24/20 13:50 Ur Amphetamines Screen NEGATIVE 01/24/20 13:50 U Benzodiazepines Scrn NEGATIVE 01/24/20 13:50 Urine Cocaine Screen NEGATIVE 01/24/20 13:50 U Marijuana (THC) Screen NEGATIVE 01/24/20 13:50 01/25/20 12:20 CK-MB (CK-2) 0.34 Troponin I 0.014 NT-Pro-B Natriuret Pep 673 H Impressions: Chest X-Ray 01/24/20 10:02 IMPRESSION: NO ACUTE RADIOGRAPHIC FINDING IN THE CHEST. Lumbar Spine X-Ray 01/26/20 00:00 IMPRESSION: Biconcave vertebral bodies stable in appearance. No acute findings. Plan Plan of Treatment: Follow-up with PCP Follow-up with sustainable agriculture specialist Time Spent: Greater than 30 Minutes Stroke Is this a Stroke Patient?: No Acute Heart Failure Is this a Heart Failure Patient?: No
[2020-02-04 15:58] VITALS: BP 122/72
== END 2020-02-04 17:30 | disposition home or self-care (01) | DRG 812 ==
LOC: ER 08:55 → EH 15:11 → 3S 17:10 → 4S 01-25 22:18
PROVIDERS: ADMIT Internal Medicine; ATTEND Internal Medicine
DX: D57.00 Hb-SS disease with crisis, unspecified (principal); F41.8 Other specified anxiety disorders; K59.02 Outlet dysfunction constipation; Z79.891 Long term (current) use of opiate analgesic; Z86.718 Personal history of other venous thrombosis and embolism; Z79.899 Other long term (current) drug therapy; Z88.6 Allergy status to analgesic agent; Z91.018 Allergy to other foods; Z87.891 Personal history of nicotine dependence
CPT/HCPCS: 36415; 71045; 72110; 80048; 80053; 80061; 80307; 81001; 82553; 83036; 83690; 83735; 83880; 84443; 84484; 85025; 85045; 96361; 96374; 96375; 96376; 99285; J1170; J1200; J1642; J2405; J2550; J3490; J7030

== ENCOUNTER 2020-02-12 14:15 | Emergency (ER) | payer MEDICAID ==
[2020-02-12] MEDS ORDERED: NORMAL SALINE 1000 ML 1,000 ML IV ONE (14:26)
[2020-02-12] MEDS ORDERED: KETOROLAC TROMETHAMINE INJ/PF 30 MG/1 ML SDV IM ONE (14:27)
--- NOTE | 2020-02-12 14:28 | ER Document Report ---
ED Medical Screen (RME) - General Chief Complaint: Sickle Cell Crisis Stated Complaint: SICKLE CELL PAIN Time Seen by Provider: 02/12/20 14:23 Primary Care Provider: JOIE MOREIRA MD [Primary Care Provider] - Follow up as needed Mode of Arrival: Ambulatory Information source: Patient Notes: 24-year-old female presented to ED for complaint of her normal sickle cell pain. She states this to her back and is new in her legs today. She states she is taking her home medications that she takes for pain but the pain is worse today than it normally is. We will start her on oxygen have ordered blood work urine and fluids for when she gets to the room. I have also ordered Toradol IM while waiting for room. She is alert oriented respirations regular nonlabored speaking in full sentences. I have greeted and performed a rapid initial assessment of this patient. A comprehensive ED assessment and evaluation of the patient, analysis of test results and completion of medical decision making process will be conducted by an additional ED providers. TRAVEL OUTSIDE OF THE [place] IN LAST 30 DAYS: No - Related Data Allergies/Adverse Reactions: morphine Allergy (Severe, Verified 02/12/20 14:26) RASH,SWELLING jacob peppers Adverse Reaction (Severe, Uncoded 02/12/20 14:26) throat closes Past Medical History - Social History Chew tobacco use (# tins/day): No Frequency of alcohol use: Occasional Drug Abuse: None Family history: Reviewed & Not Pertinent, Other - Pt was adopted. Does not know family history - Past Medical History Cardiac Medical History: Reports: Hx DVT - RUE s/p port placement Denies: Hx Hypercholesterolemia Pulmonary Medical History: Reports: Hx Asthma, Hx Bronchitis, Hx Pneumonia Neurological Medical History: Denies: Hx Parkinson's Disease Endocrine Medical History: Denies: Hx Diabetes Mellitus Type 1, Hx Diabetes Mellitus Type 2 Renal/ Medical History: Denies: Hx Peritoneal Dialysis GI Medical History: Musculoskeltal Medical History: Reports Hx Musculoskeletal Trauma Psychiatric Medical History: Reports: Hx Anxiety, Hx Depression - and anxiety Past Surgical History: Reports: Hx Cholecystectomy - 06/28/2015, Hx Vascular Surgery - port put in December,, Other - Port-A-Cath in right upper chest - Immunizations Immunizations up to date: Yes Hx Diphtheria, Pertussis, Tetanus Vaccination: Yes Physical Exam - Vital signs Vitals: Temp Pulse Resp BP Pulse Ox 98.8 F 81 18 112/61 100 02/12/20 14:27 02/12/20 14:27 02/12/20 14:27 02/12/20 14:27 02/12/20 14:27 Course - Vital Signs Vital signs: Temp Pulse Resp BP Pulse Ox 98.8 F 81 18 112/61 100 02/12/20 14:27 02/12/20 14:27 02/12/20 14:27 02/12/20 14:27 02/12/20 14:27 Doctor's Discharge - Discharge Referrals: JOIE MOREIRA MD [Primary Care Provider] - Follow up as needed
[2020-02-12 15:28] LABS: APPEARANCE,URINE CLEAR; BILIRUBIN,URINE NEGATIVE (NEGATIVE); COLOR,URINE YELLOW; GLUCOSE, URINE NEGATIVE (NEGATIVE); KETONES,URINE NEGATIVE (NEGATIVE); LEUKOCYTE ESTERASE,URINE TRACE (NEGATIVE); NITRITE,URINE NEGATIVE (NEGATIVE); PROTEIN,URINE NEGATIVE (NEGATIVE); UROBILINOGEN,URINE NEGATIVE mg/dL (<2.0)
[2020-02-12 15:48] LABS: ABSOLUTE RETICS # 0.119 10^6/uL (0.028-0.122); ALBUMIN 4.7 g/dL (3.5-5.0); ALKALINE PHOSPHATASE 104 U/L (38-126); ANION GAP 9 (5-19); ASPARTATE AMINO TRANSFERASE 26 U/L (14-36); BILIRUBIN,TOTAL 3.1 mg/dL (0.2-1.3); BLOOD UREA NITROGEN 7 mg/dL (7-20); CALCIUM 9.9 mg/dL (8.4-10.2); CARBON DIOXIDE 25 mmol/L (22-30); CHLORIDE 108 mmol/L (98-107); GLUCOSE 108 mg/dL (75-110); HEMATOCRIT 32.8 % (36.0-47.0); HEMOGLOBIN 11.7 g/dL (12.0-15.5); MEAN CORPUSCULAR HEMOGLOBIN 36.8 pg (27.0-33.4); MEAN CORPUSCULAR HGB CONC 35.6 g/dL (32.0-36.0); MEAN CORPUSCULAR VOLUME 103 fl (80-97); PLATELET COUNT 470 10^3/uL (150-450); POTASSIUM 4.1 mmol/L (3.6-5.0); RED BLOOD COUNT 3.18 10^6/uL (3.72-5.28); RED CELL DISTRIBUTION WIDTH 25.5 % (11.5-14.0); RETICULOCYTE COUNT (AUTO) 3.75 % (0.66-2.85); TOTAL PROTEIN 8.2 g/dL (6.3-8.2); WHITE BLOOD COUNT 14.6 10^3/uL (4.0-10.5)
[2020-02-12] MEDS ORDERED: HYDROMORPHONE HCL INJ/PF 2 MG/ML AMPULE IV ONE ×3 (16:13→18:55)
[2020-02-12] MEDS ORDERED: KETOROLAC TROMETHAMINE INJ/PF 30 MG/1 ML SDV IV ONE (16:14)
[2020-02-12] MEDS ORDERED: ONDANSETRON HCL INJ/PF 4 MG/2 ML SDV IV ONE (16:14)
[2020-02-12 16:27] LABS: ABSOLUTE LYMPHOCYTES# (MANUAL) 3.9 10^3/uL (0.5-4.7); ABSOLUTE MONOCYTES # (MANUAL) 0.4 10^3/uL (0.1-1.4); BASOPHILS % (MANUAL) 0 % (0-2); EOSINOPHILS % (MANUAL) 2 % (0-6); LYMPHOCYTES % (MANUAL) 27 % (13-45); MONOCYTES % (MANUAL) 3 % (3-13); NUCLEATED RED BLOOD CELLS 3 /100 WBC (0); SEGMENTED NEUTROPHILS % (MAN) 68 % (42-78); TOTAL CELLS COUNTED 100
[2020-02-12 16:29] LABS: ANISOCYTOSIS 3+; PAPPENHEIMER BODIES PRESENT; PLATELET COMMENT INCREASED; TARGET CELLS 1+
--- NOTE | 2020-02-12 16:37 | ER Document Report ---
ED General - General Chief Complaint: Sickle Cell Crisis Stated Complaint: SICKLE CELL PAIN Time Seen by Provider: 02/12/20 14:23 Primary Care Provider: JOIE MOREIRA MD [Primary Care Provider] - Follow up as needed Mode of Arrival: Ambulatory TRAVEL OUTSIDE OF THE [place] IN LAST 30 DAYS: No - HPI Notes: Patient is a 24-year-old female with a history of sickle cell anemia who presents to the emergency department for evaluation of low back pain and pain down her right leg. This is all typical of her sickle cell pain. She states her regular medications have not been helping. She denies any fevers or chills. No chest pain or shortness of breath. She is not been coughing. Her pain is currently a 5 out of 5. - Related Data Allergies/Adverse Reactions: morphine Allergy (Severe, Verified 02/12/20 14:26) RASH,SWELLING jacob peppers Adverse Reaction (Severe, Uncoded 02/12/20 14:26) throat closes Home Medications: Dilaudid, Lyrica, hydroxyurea, vitamin D, folic acid Past Medical History - General Information source: Patient - Social History Smoking Status: Never Smoker Chew tobacco use (# tins/day): No Frequency of alcohol use: Occasional Drug Abuse: None Family History: Reviewed & Not Pertinent, Other - Sickle cell disease and sickle cell trait, asthma - Medical History Medical History: Other - Sickle cell anemia - Past Medical History Cardiac Medical History: Reports: Hx DVT - RUE s/p port placement Denies: Hx Hypercholesterolemia Pulmonary Medical History: Reports: Hx Asthma, Hx Bronchitis, Hx Pneumonia Neurological Medical History: Denies: Hx Parkinson's Disease Endocrine Medical History: Denies: Hx Diabetes Mellitus Type 1, Hx Diabetes Mellitus Type 2 Renal/ Medical History: Denies: Hx Peritoneal Dialysis GI Medical History: Musculoskeletal Medical History: Reports Hx Musculoskeletal Trauma Psychiatric Medical History: Reports: Hx Anxiety, Hx Depression - and anxiety Past Surgical History: Reports: Hx Cholecystectomy - 06/28/2015, Hx Vascular Surgery - port put in December,, Other - Port-A-Cath in right upper chest - Immunizations Immunizations up to date: Yes Hx Diphtheria, Pertussis, Tetanus Vaccination: Yes Review of Systems - Review of Systems Constitutional: No symptoms reported EENT: No symptoms reported Cardiovascular: No symptoms reported Respiratory: No symptoms reported Gastrointestinal: No symptoms reported Genitourinary: No symptoms reported Musculoskeletal: See HPI Skin: No symptoms reported Neurological/Psychological: No symptoms reported -: Yes All other systems reviewed and negative Physical Exam - Vital signs Vitals: Temp Pulse Resp BP Pulse Ox 98.8 F 81 18 112/61 100 02/12/20 14:27 02/12/20 14:27 02/12/20 14:27 02/12/20 14:27 02/12/20 14:27 - Notes Notes: This is a 24-year-old female who appears her stated age in a moderate amount of distress. She is pacing around the room, she states she is more comfortable while standing. Vital signs reviewed, please refer to chart. Head is normocephalic, atraumatic. Pupils equal round, reactive to light. Neck is supple without meningismus. Heart is regular rate and rhythm. Lungs are clear to auscultation bilaterally. Abdomen is soft, nontender, normoactive bowel sounds throughout. Extremities without cyanosis, clubbing. Posterior calves are nontender. Peripheral pulses are equal. Skin is warm and dry. Examination of the spine yields no midline tenderness or step-off. She has paraspinal musculature tenderness, right greater than left, throughout the lumbar spine. She is tender over the piriformis and into her posterior thigh. Normal strength. Course - Re-evaluation Re-evalutation: 02/12/20 16:36 Patient presents to the emergency department for evaluation. Her pain is typical of her normal sickle cell crisis. She is not showing me any signs of acute chest syndrome. Lab work has been ordered, medications ordered as well. We will continue to follow for symptom improvement. 02/12/20 20:16 Patient received multiple doses of Dilaudid, as well as fluids, Toradol, Tylenol. She is feeling somewhat improved. She feels able to go home with her regular medications. Her reticulocyte count is only mildly elevated, her h emoglobin is only mildly low. She is to follow-up closely with primary care and hematology. - Vital Signs Vital signs: Temp Pulse Resp BP Pulse Ox 98.8 F 81 18 112/61 100 02/12/20 14:27 02/12/20 14:27 02/12/20 14:27 02/12/20 14:27 02/12/20 14:27 - Laboratory Result Diagrams: 02/12/20 15:00 02/12/20 15:00 Laboratory results interpreted by me: 02/12/20 02/12/20 02/12/20 14:45 15:00 15:00 WBC 14.6 H RBC 3.18 L Hgb 11.7 L Hct 32.8 L MCV 103 H MCH 36.8 H RDW 25.5 H Plt Count 470 H Abs Neuts (Manual) 9.9 H Retic Count (auto) 3.75 H Chloride 108 H Creatinine 0.50 L Total Bilirubin 3.1 H Ur Leukocyte Esterase TRACE H Discharge - Discharge Clinical Impression: Acute sickle cell crisis Condition: Stable Disposition: HOME, SELF-CARE Instructions: Sickle Cell Crisis ([facility]) Additional Instructions: Stay hydrated. Take your regular medications as prescribed. Follow-up with your primary care provider as well as your meter changes records clerk next week. Return to the emergency department with worsening concerning symptoms of any sort. Referrals: JOIE MOREIRA MD [Primary Care Provider] - Follow up as needed
[2020-02-12] MEDS ORDERED: DIPHENHYDRAMINE HCL 50 MG/ML VIAL IV ONE (17:20)
[2020-02-12] MEDS ORDERED: ACETAMINOPHEN 325 MG TABLET PO ONE (18:56)
[2020-02-12 20:35] VITALS: BP 115/62
== END 2020-02-12 20:33 | disposition home or self-care (01) ==
LOC: ER 14:15
DX: D57.00 Hb-SS disease with crisis, unspecified (principal); M54.5 Low back pain; M79.604 Pain in right leg; Z88.8 Allergy status to other drugs, medicaments and biological substances; Z79.899 Other long term (current) drug therapy; Z86.718 Personal history of other venous thrombosis and embolism; J45.909 Unspecified asthma, uncomplicated
CPT/HCPCS: 36591; 96376; 99284; 96361; 96374; 96375; 36415; 85025; 85045; 80053; 81001; J3490; J1200; J1885; J1170; J2405; J7030; J1642

== ENCOUNTER 2020-02-19 11:30 | Emergency (ER) | payer MEDICAID ==
[2020-02-19] MEDS ORDERED: NORMAL SALINE 1000 ML 1,000 ML IV ONE ×2 (11:58→14:08)
[2020-02-19] MEDS ORDERED: HYDROMORPHONE HCL INJ/PF 2 MG/ML AMPULE IV ONE ×3 (11:58→14:08)
[2020-02-19] MEDS ORDERED: KETOROLAC TROMETHAMINE INJ/PF 30 MG/1 ML SDV IV ONE (11:59)
--- NOTE | 2020-02-19 12:00 | ER Document Report ---
ED Medical Screen (RME) - General Chief Complaint: Sickle Cell Crisis Stated Complaint: POSSIBLE SICKLE CELL CRISIS Time Seen by Provider: 02/19/20 11:54 Primary Care Provider: JOIE MOREIRA MD [Primary Care Provider] - Follow up as needed Notes: Patient is a 25-year-old female presents emergency department with a sickle cell crisis. States that the pain is in her low back. States that this feels like her normal sickle cell pain. Patient took 4 mg of Dilaudid p.o. around 9:00 this morning. Last menstrual cycle was at the beginning of January. Denies any dysuria. Exam: Tender low back. I have greeted and performed a rapid initial assessment of this patient. A comprehensive ED assessment and evaluation of the patient, analysis of test results and completion of medical decision making process will be conducted by an additional ED providers. TRAVEL OUTSIDE OF THE [place] IN LAST 30 DAYS: No - Related Data Allergies/Adverse Reactions: morphine Allergy (Severe, Verified 02/19/20 11:49) RASH,SWELLING jacob peppers Adverse Reaction (Severe, Uncoded 02/19/20 11:49) throat closes Past Medical History - Social History Chew tobacco use (# tins/day): No Frequency of alcohol use: Occasional Drug Abuse: None Family history: Reviewed & Not Pertinent, Other - Pt was adopted. Does not know family history - Past Medical History Cardiac Medical History: Reports: Hx DVT - RUE s/p port placement Denies: Hx Hypercholesterolemia Pulmonary Medical History: Reports: Hx Asthma, Hx Bronchitis, Hx Pneumonia Neurological Medical History: Denies: Hx Parkinson's Disease Endocrine Medical History: Denies: Hx Diabetes Mellitus Type 1, Hx Diabetes Mellitus Type 2 Renal/ Medical History: Denies: Hx Peritoneal Dialysis GI Medical History: Musculoskeltal Medical History: Reports Hx Musculoskeletal Trauma Psychiatric Medical History: Reports: Hx Anxiety, Hx Depression - and anxiety Past Surgical History: Reports: Hx Cholecystectomy - 06/28/2015, Hx Vascular Surgery - port put in December,, Other - Port-A-Cath in right upper chest - Immunizations Immunizations up to date: Yes Hx Diphtheria, Pertussis, Tetanus Vaccination: Yes Physical Exam - Vital signs Vitals: Temp Pulse Resp BP Pulse Ox 98.1 F 89 16 112/60 98 02/19/20 11:38 02/19/20 11:38 02/19/20 11:38 02/19/20 11:38 02/19/20 11:38 Course - Vital Signs Vital signs: Temp Pulse Resp BP Pulse Ox 98.1 F 89 16 112/60 98 02/19/20 11:38 02/19/20 11:38 02/19/20 11:38 02/19/20 11:38 02/19/20 11:38 Doctor's Discharge - Discharge Referrals: JOIE MOREIRA MD [Primary Care Provider] - Follow up as needed
[2020-02-19] MEDS ORDERED: DIPHENHYDRAMINE HCL 50 MG/ML VIAL IV ONE (12:08)
--- NOTE | 2020-02-19 12:09 | ER Document Report ---
ED General - General Chief Complaint: Sickle Cell Crisis Stated Complaint: POSSIBLE SICKLE CELL CRISIS Time Seen by Provider: 02/19/20 11:54 Primary Care Provider: JOIE MOREIRA MD [Primary Care Provider] - Follow up as needed Mode of Arrival: Ambulatory Information source: Patient Notes: Patient presents complaining of low back pain. Patient has a history of sickle cell disease and is concerned about pain crisis. Patient denies any urinary symptoms. Patient denies any fever. Patient denies any cough or cold symptoms. Patient denies any nausea vomiting or diarrhea. Patient states she had this pain symptoms off and on for the past week. Patient denies any improvement with use of her usual medications. TRAVEL OUTSIDE OF THE [place] IN LAST 30 DAYS: No - HPI Onset: Last week Onset/Duration: Waxing and waning Quality of pain: Achy Pain Level: 5 Associated symptoms: Other - Back pain. denies: Chest pain, Nonproductive cough, Productive cough, Fever, Headache Exacerbated by: Denies Relieved by: Denies Similar symptoms previously: Yes Recently seen / treated by doctor: No - Related Data Allergies/Adverse Reactions: morphine Allergy (Severe, Verified 02/19/20 11:49) RASH,SWELLING jacob peppers Adverse Reaction (Severe, Uncoded 02/19/20 11:49) throat closes Past Medical History - General Information source: Patient - Social History Smoking Status: Never Smoker Chew tobacco use (# tins/day): No Frequency of alcohol use: Occasional Drug Abuse: None Occupation: None Lives with: Spouse/Significant other Family History: Reviewed & Not Pertinent, Other - Sickle cell disease and sickle cell trait, asthma - Medical History Medical History: Other - Sickle cell disease - Past Medical History Cardiac Medical History: Reports: Hx DVT - RUE s/p port placement Denies: Hx Hypercholesterolemia Pulmonary Medical History: Reports: Hx Asthma, Hx Bronchitis, Hx Pneumonia Neurological Medical History: Denies: Hx Parkinson's Disease Endocrine Medical History: Denies: Hx Diabetes Mellitus Type 1, Hx Diabetes Mellitus Type 2 Renal/ Medical History: Denies: Hx Peritoneal Dialysis GI Medical History: Musculoskeletal Medical History: Reports Hx Musculoskeletal Trauma Psychiatric Medical History: Reports: Hx Anxiety, Hx Depression - and anxiety Past Surgical History: Reports: Hx Cholecystectomy - 06/28/2015, Hx Vascular Surgery - port put in December,, Other - Port-A-Cath in right upper chest - Immunizations Immunizations up to date: Yes Hx Diphtheria, Pertussis, Tetanus Vaccination: Yes Review of Systems - Review of Systems Constitutional: No symptoms reported. denies: Fever EENT: No symptoms reported Cardiovascular: No symptoms reported. denies: Chest pain, Dizziness Respiratory: No symptoms reported. denies: Cough, Short of breath Gastrointestinal: No symptoms reported. denies: Abdominal pain, Diarrhea, Nausea, Vomiting Genitourinary: No symptoms reported. denies: Dysuria, Hematuria Female Genitourinary: No symptoms reported. denies: Vaginal discharge Musculoskeletal: Back pain. denies: Muscle pain, Leg swelling Skin: No symptoms reported Hematologic/Lymphatic: No symptoms reported Neurological/Psychological: No symptoms reported. denies: Headaches Physical Exam - Vital signs Vitals: Temp Pulse Resp BP Pulse Ox 98.1 F 89 16 112/60 98 02/19/20 11:38 02/19/20 11:38 02/19/20 11:38 02/19/20 11:38 02/19/20 11:38 - Notes Notes: PHYSICAL EXAMINATION: GENERAL: Well-appearing and in no acute distress. HEAD: Atraumatic, normocephalic. EYES: sclera anicteric, conjunctiva are normal. ENT: nares patent. Moist mucous membranes. NECK: Normal range of motion, supple without lymphadenopathy LUNGS: CTAB and equal. No wheezes rales or rhonchi. HEART: Regular rate and rhythm without murmurs ABDOMEN: Soft, nontender, normal bowel sounds, no guarding. EXTREMITIES: Normal range of motion, no pitting edema. No cyanosis. BACK: Lumbar paraspinal tenderness, no midline tenderness, no step-off or deformity. No CVA tenderness NEUROLOGICAL: Cranial nerves grossly intact. Normal speech. PSYCH: Normal mood, normal affect. SKIN: Warm, Dry, normal turgor, no rashes or lesions noted Course - Re-evaluation Re-evalutation: 02/19/20 14:09 Patient states that her back pain is at a 3/5 scale at this time. Patient denies any urinary issues. Urine will be cultured at this time. Additional fluids and pain medication ordered at this time. 02/19/20 15:00 Patient with back pain in the setting of a history of sickle cell disease. Patient without any fever, nausea vomiting or diarrhea. IV fluids have been given and pain medicine provided. Patient with mild anemia at this time does not require any treatment. Patient denies any urinary symptoms. Patient nontoxic in appearance and reports pain is improved at this time. Patient does feel she can manage her symptoms at home. Patient encouraged to follow-up with her primary doctor on outpatient basis. - Vital Signs Vital signs: Temp Pulse Resp BP Pulse Ox 98.0 F 78 16 122/68 100 02/19/20 15:57 02/19/20 15:57 02/19/20 15:57 02/19/20 15:57 02/19/20 15:57 - Laboratory Result Diagrams: 02/19/20 12:25 02/19/20 12:25 Laboratory results interpreted by me: 02/19/20 02/19/20 02/19/20 12:25 12:25 12:25 WBC 12.7 H RBC 2.98 L Hgb 10.9 L Hct 30.6 L MCV 103 H MCH 36.4 H RDW 22.2 H Reticulocyte # 0.193 H Basophils % (Manual) 3 H Abs Basophils (Manual) 0.4 H Retic Count (auto) 6.49 H Total Bilirubin 3.8 H Urine Urobilinogen 2.0 H Leukocyte Esterase Rfl SMALL H Labs- All tests 24 hr 02/19/20 02/19/20 02/19/20 12:25 12:25 12:25 WBC 12.7 H RBC 2.98 L Hgb 10.9 L Hct 30.6 L MCV 103 H MCH 36.4 H MCHC 35.4 RDW 22.2 H Plt Count 450 Lymph % (Auto) Not Reportable Pierce % (Auto) Not Reportable Eos % (Auto) Not Reportable Baso % (Auto) Not Reportable Reticulocyte # 0.193 H Absolute Neuts (auto) Not Reportable Absolute Lymphs (auto) Not Reportable Absolute Monos (auto) Not Reportable Absolute Eos (auto) Not Reportable Absolute Basos (auto) Not Reportable Total Counted 100 Seg Neutrophils % Not Reportable Seg Neuts % (Manual) 62 Lymphocytes % (Manual) 24 Monocytes % (Manual) 11 Eosinophils % (Manual) 0 Basophils % (Manual) 3 H Abs Neuts (Manual) 7.9 Abs Lymphs (Manual) 3.0 Abs Monocytes (Manual) 1.4 Absolute Eos (Manual) 0.0 Abs Basophils (Manual) 0.4 H Nucleated RBCs 3 Platelet Comment ADEQUATE Anisocytosis 3+ Macrocytosis 1+ Sickle Cells SLIGHT Target Cells 1+ Retic Count (auto) 6.49 H Sodium 139.8 Potassium 4.5 Chloride 105 Carbon Dioxide 25 Anion Gap 10 BUN 8 Creatinine 0.60 Est GFR ( Amer) > 60 Est GFR (MDRD) Non-Af > 60 Glucose 83 Calcium 9.5 Total Bilirubin 3.8 H Direct Bilirubin 0.1 Neonat Total Bilirubin Not Reportable Neonat Direct Bilirubin Not Reportable Neonat Indirect Bili Not Reportable AST 27 ALT 11 Alkaline Phosphatase 76 Total Protein 7.4 Albumin 4.3 Urine Color STRAW Urine Appearance CLEAR Urine pH 8.0 Ur Specific [place] 1.009 Urine Protein NEGATIVE Urine Glucose (UA) NEGATIVE Urine Ketones NEGATIVE Urine Blood NEGATIVE Urine Nitrite (Reflex) NEGATIVE Urine Bilirubin NEGATIVE Urine Urobilinogen 2.0 H Leukocyte Esterase Rfl SMALL H Urine RBC (Auto) 1 Urine WBC (Reflex) 1 Squamous Epi Cells Auto 1 Urine Ascorbic Acid NEGATIVE Discharge - Discharge Clinical Impression: Sickle cell pain crisis Back pain Qualifiers: Back pain location: low back pain Chronicity: acute Back pain laterality: bilateral Sciatica presence: without sciatica Qualified Code(s): M54.5 - Low back pain Condition: Stable Disposition: HOME, SELF-CARE Instructions: Intravenous (IV) Fluids ([facility]), Pain Medication Injection ([facility]), Sickle Cell Crisis ([facility]) Additional Instructions: Return immediately for any new or worsening symptoms Followup with your primary care provider, call tomorrow to make a followup appointment Follow-up with Dr. Moreira, call Friday for an appointment Stay well-hydrated Urine culture is pending, we will call if you need any different treatment Referrals: JOIE MOREIRA MD [Primary Care Provider] - Follow up as needed
[2020-02-19 13:20] LABS: ABSOLUTE RETICS # 0.193 10^6/uL (0.028-0.122); HEMATOCRIT 30.6 % (36.0-47.0); HEMOGLOBIN 10.9 g/dL (12.0-15.5); MEAN CORPUSCULAR HEMOGLOBIN 36.4 pg (27.0-33.4); MEAN CORPUSCULAR HGB CONC 35.4 g/dL (32.0-36.0); MEAN CORPUSCULAR VOLUME 103 fl (80-97); PLATELET COUNT 450 10^3/uL (150-450); RED BLOOD COUNT 2.98 10^6/uL (3.72-5.28); RED CELL DISTRIBUTION WIDTH 22.2 % (11.5-14.0); RETICULOCYTE COUNT (AUTO) 6.49 % (0.66-2.85); WHITE BLOOD COUNT 12.7 10^3/uL (4.0-10.5)
[2020-02-19 13:23] LABS: APPEARANCE,URINE CLEAR; BILIRUBIN,URINE NEGATIVE (NEGATIVE); COLOR,URINE STRAW; GLUCOSE, URINE NEGATIVE (NEGATIVE); KETONES,URINE NEGATIVE (NEGATIVE); PROTEIN,URINE NEGATIVE (NEGATIVE); URINE SPECIFIC GRAVITY 1.009
[2020-02-19 13:27] LABS: ALBUMIN 4.3 g/dL (3.5-5.0); ALKALINE PHOSPHATASE 76 U/L (38-126); ANION GAP 10 (5-19); ASPARTATE AMINO TRANSFERASE 27 U/L (14-36); BILIRUBIN,DIRECT 0.1 mg/dL (0.0-0.4); BILIRUBIN,TOTAL 3.8 mg/dL (0.2-1.3); BLOOD UREA NITROGEN 8 mg/dL (7-20); CALCIUM 9.5 mg/dL (8.4-10.2); CARBON DIOXIDE 25 mmol/L (22-30); CHLORIDE 105 mmol/L (98-107); GLUCOSE 83 mg/dL (75-110); POTASSIUM 4.5 mmol/L (3.6-5.0); TOTAL PROTEIN 7.4 g/dL (6.3-8.2)
[2020-02-19 13:48] LABS: ABSOLUTE MONOCYTES # (MANUAL) 1.4 10^3/uL (0.1-1.4); BASOPHILS % (MANUAL) 3 % (0-2); EOSINOPHILS % (MANUAL) 0 % (0-6); LYMPHOCYTES % (MANUAL) 24 % (13-45); MONOCYTES % (MANUAL) 11 % (3-13); NUCLEATED RED BLOOD CELLS 3 /100 WBC (0); SEGMENTED NEUTROPHILS % (MAN) 62 % (42-78); TOTAL CELLS COUNTED 100
[2020-02-19 13:50] LABS: ANISOCYTOSIS 3+; PLATELET COMMENT ADEQUATE; SICKLE RED CELLS SLIGHT; TARGET CELLS 1+
[2020-02-19 16:02] VITALS: BP 122/68
== END 2020-02-19 16:01 | disposition home or self-care (01) ==
LOC: ER 11:30
DX: D57.00 Hb-SS disease with crisis, unspecified (principal); M54.5 Low back pain; Z86.718 Personal history of other venous thrombosis and embolism
CPT/HCPCS: 96376; 99284; 96361; 96374; 96375; 36415; 87086; 85025; 85045; 80053; 81001; J1200; J1885; J1170; J7030; J1642

== ENCOUNTER 2020-02-20 10:28 | Inpatient (IN) | payer MEDICAID ==
[2020-02-20] MEDS ORDERED: NORMAL SALINE 1000 ML 1,000 ML IV ONE (11:31)
--- NOTE | 2020-02-20 11:33 | ER Document Report ---
ED Medical Screen (RME) - General Chief Complaint: Sickle Cell Crisis Stated Complaint: BACK PAIN Time Seen by Provider: 02/20/20 11:30 Primary Care Provider: JOIE MOREIRA MD [Primary Care Provider] - Follow up as needed Notes: HPI: 25-year-old female with sickle cell presenting to the emergency department complaining of continued low back pain that she attributes to her sickle cell over the last week. No fever. States that she was here yesterday for same complaint, was given medication and felt slightly better went home but the pain came back worse so she decided to come back in. States that she follows with Dr. Moreira. Patient denies abdominal pain chest pain shortness of breath PHYSICAL EXAMINATION: On review of the records patient with multiple previous visits for sickle cell crisis in the last few weeks. Patient had mild elevation of her WBC count yesterday but urine did not seem to show evidence of infection. Her to count was elevated at 6 yesterday. Mild tenderness across the low back. I have greeted and performed a rapid initial assessment of this patient. A comprehensive ED assessment and evaluation of the patient, analysis of test results and completion of medical decision making process will be conducted by an additional ED providers. TRAVEL OUTSIDE OF THE [place] IN LAST 30 DAYS: No - Related Data Allergies/Adverse Reactions: morphine Allergy (Severe, Verified 02/20/20 11:24) RASH,SWELLING jacob peppers Adverse Reaction (Severe, Uncoded 02/20/20 11:24) throat closes Home Medications: hydromorphone. trazodone. benadryl Past Medical History - Social History Chew tobacco use (# tins/day): No Frequency of alcohol use: Occasional Drug Abuse: None Family history: Reviewed & Not Pertinent, Other - Pt was adopted. Does not know family history - Past Medical History Cardiac Medical History: Reports: Hx DVT - RUE s/p port placement Denies: Hx Hypercholesterolemia Pulmonary Medical History: Reports: Hx Asthma, Hx Bronchitis, Hx Pneumonia Neurological Medical History: Denies: Hx Parkinson's Disease Endocrine Medical History: Denies: Hx Diabetes Mellitus Type 1, Hx Diabetes Mellitus Type 2 Renal/ Medical History: Denies: Hx Peritoneal Dialysis GI Medical History: Musculoskeltal Medical History: Reports Hx Musculoskeletal Trauma Psychiatric Medical History: Reports: Hx Anxiety, Hx Depression - and anxiety Past Surgical History: Reports: Hx Cholecystectomy - 06/28/2015, Hx Vascular Surgery - port put in December,, Other - Port-A-Cath in right upper chest - Immunizations Immunizations up to date: Yes Hx Diphtheria, Pertussis, Tetanus Vaccination: Yes Physical Exam - Vital signs Vitals: Temp Pulse Resp BP Pulse Ox 99.2 F 93 17 114/66 100 02/20/20 10:49 02/20/20 10:49 02/20/20 10:49 02/20/20 10:49 02/20/20 10:49 Course - Vital Signs Vital signs: Temp Pulse Resp BP Pulse Ox 99.2 F 93 17 114/66 100 02/20/20 11:25 02/20/20 10:49 02/20/20 10:49 02/20/20 10:49 02/20/20 10:49 Doctor's Discharge - Discharge Referrals: JOIE MOREIRA MD [Primary Care Provider] - Follow up as needed
--- NOTE | 2020-02-20 15:04 | ER Document Report ---
ED General - General Chief Complaint: Sickle Cell Crisis Stated Complaint: BACK PAIN Time Seen by Provider: 02/20/20 11:30 Primary Care Provider: JOIE MOREIRA MD [Primary Care Provider] - Follow up as needed TRAVEL OUTSIDE OF THE [place] IN LAST 30 DAYS: No - HPI Notes: 25-year-old female presents with lower back pain. Patient has sickle cell disease, she states she is been having lower back pain for the past 1 week. She states she has been taking her home meds which consist of folate, hydroxyurea, ibuprofen and Dilaudid. She was seen yesterday in the emergency department and initially felt better after receiving medication and fluids. She states that earlier this morning she awoke and her lower back pain was double than what it was previously. States is located all across her lower back. No radiation of pain. States feels similar to prior sickle cell pain. Denies pain in hips or legs, chest or upper extremities. She denies fever, cough or shortness of b reath. She states she does not know what type of sickle cell disease she has. States that while waiting in the ED lobby she had an episode of nausea and could taste stomach acid. - Related Data Allergies/Adverse Reactions: morphine Allergy (Severe, Verified 02/20/20 11:24) RASH,SWELLING jacob peppers Adverse Reaction (Severe, Uncoded 02/20/20 11:24) throat closes Home Medications: hydromorphone. trazodone. benadryl Past Medical History - General Information source: Patient - Social History Smoking Status: Never Smoker Chew tobacco use (# tins/day): No Frequency of alcohol use: Occasional Drug Abuse: None Family History: Reviewed & Not Pertinent, Other - Sickle cell disease and sickle cell trait, asthma Patient has homicidal ideation: No - Past Medical History Cardiac Medical History: Reports: Hx DVT - RUE s/p port placement Denies: Hx Hypercholesterolemia Pulmonary Medical History: Reports: Hx Asthma, Hx Bronchitis, Hx Pneumonia Neurological Medical History: Denies: Hx Parkinson's Disease Endocrine Medical History: Denies: Hx Diabetes Mellitus Type 1, Hx Diabetes Mellitus Type 2 Renal/ Medical History: Denies: Hx Peritoneal Dialysis GI Medical History: Musculoskeletal Medical History: Reports Hx Musculoskeletal Trauma Psychiatric Medical History: Reports: Hx Anxiety, Hx Depression - and anxiety Past Surgical History: Reports: Hx Cholecystectomy - 06/28/2015, Hx Vascular Surgery - port put in December,, Other - Port-A-Cath in right upper chest - Immunizations Immunizations up to date: Yes Hx Diphtheria, Pertussis, Tetanus Vaccination: Yes Review of Systems - Review of Systems Constitutional: denies: Chills, Fever EENT: No symptoms reported Cardiovascular: denies: Chest pain Respiratory: denies: Cough, Short of breath Gastrointestinal: Nausea. denies: Abdominal pain, Vomiting Genitourinary: denies: Burning, Dysuria Female Genitourinary: No symptoms reported Musculoskeletal: Back pain Skin: No symptoms reported Hematologic/Lymphatic: Anemia Neurological/Psychological: No symptoms reported Physical Exam - Vital signs Vitals: Temp Pulse Resp BP Pulse Ox 99.2 F 93 17 114/66 100 02/20/20 10:49 02/20/20 10:49 02/20/20 10:49 02/20/20 10:49 02/20/20 10:49 - General General appearance: Appears well, Alert In distress: None - HEENT Head: Normocephalic, Atraumatic Eyes: No: Scleral icterus Extraocular movements intact: Yes Pupils: PERRL - Respiratory Chest status: Nontender Breath sounds: Normal - Cardiovascular Rhythm: Regular Heart sounds: Normal auscultation - Abdominal Distension: No distension Bowel sounds: Normal Tenderness: Nontender - Back Back: Tender - Bilateral lower lumbar musculature. No: Vertebra tenderness - Extremities General upper extremity: Nontender, Normal ROM General lower extremity: Nontender, Normal ROM Hip: Nontender - Neurological Neuro grossly intact: Yes Cognition: Normal Orientation: AAOx4 - Psychological Associated symptoms: Normal affect - Skin Skin Temperature: Warm Course - Re-evaluation Re-evalutation: 25-year-old female with sickle cell disease here with lower back pain x1 week. She is alert and well-appearing, afebrile and hemodynamically stable, neurologically intact. She has generalized tenderness across her lower lumbar spine, absence of midline tenderness. Denies urinary symptoms. Denies cardiopulmonary symptoms. Suspect pain is related to sickle cell disease, will initiate treatment with Dilaudid/Toradol/fluids. Check chest x-ray to assure that no infiltrate is present. Check urine to assure that no UTI is present. 02/20/20 19:20 Leukocytosis present, likely reactionary given her sickle cell pain crisis. Appropriate reticulocyte response. Chest x-ray is without infiltrate. I went in to discuss with patient, she has received 3 doses of IV Dilaudid, she states that she is still in pain and she would like to be admitted. 02/20/20 20:[address] Delgado for admission - Vital Signs Vital signs: Temp Pulse Resp BP Pulse Ox 99.2 F 93 17 114/66 100 02/20/20 11:25 02/20/20 10:49 02/20/20 10:49 02/20/20 10:49 02/20/20 10:49 - Laboratory Result Diagrams: 02/20/20 13:40 02/20/20 13:40 Laboratory results interpreted by me: 02/20/20 02/20/20 02/20/20 13:40 13:40 13:40 WBC 14.4 H RBC 2.91 L Hgb 10.9 L Hct 30.1 L MCV 103 H MCH 37.6 H MCHC 36.4 H RDW 22.1 H Reticulocyte # 0.164 H Absolute Neuts (auto) 11.3 H Seg Neutrophils % 78.2 H Retic Count (auto) 5.63 H Chloride 110 H Carbon Dioxide 20 L BUN 4 L Creatinine 0.50 L Total Bilirubin 4.1 H Urine Protein 30 H Ur Leukocyte Esterase TRACE H - Diagnostic Test Radiology reviewed: Image reviewed, Reports reviewed Discharge - Discharge Clinical Impression: Sickle cell pain crisis Disposition: ADMITTED INPATIENT Admitting Provider: Sandy Unit Admitted: Medical Floor Referrals: JOIE MOREIRA MD [Primary Care Provider] - Follow up as needed
[2020-02-20] MEDS ORDERED: KETOROLAC TROMETHAMINE INJ/PF 30 MG/1 ML SDV IV ONE (15:11)
[2020-02-20] MEDS ORDERED: ONDANSETRON HCL INJ/PF 4 MG/2 ML SDV IV ONE ×2 (15:11→16:48)
[2020-02-20] MEDS: HYDROMORPHONE HCL INJ/PF 2 MG/ML AMPULE IV PRN ×4 (15:35→21:16)
[2020-02-20 16:10] LABS: ABSOLUTE BASOPHILS # (AUTO) 0.1 10^3/uL (0.0-0.2); ABSOLUTE EOSINOPHILS # (AUTO) 0.1 10^3/uL (0.0-0.6); ABSOLUTE LYMPHOCYTES (AUTO) 2.1 10^3/uL (0.5-4.7); ABSOLUTE MONOCYTES (AUTO) 0.9 10^3/uL (0.1-1.4); ABSOLUTE NEUT (AUTO) 11.3 10^3/uL (1.7-8.2); ABSOLUTE RETICS # 0.164 10^6/uL (0.028-0.122); APPEARANCE,URINE CLEAR; BASOPHILS % (AUTO) 0.9 % (0-2); BILIRUBIN,URINE NEGATIVE (NEGATIVE); COLOR,URINE YELLOW; EOSINOPHILS % (AUTO) 0.3 % (0-6); GLUCOSE, URINE NEGATIVE (NEGATIVE); HEMATOCRIT 30.1 % (36.0-47.0); HEMOGLOBIN 10.9 g/dL (12.0-15.5); KETONES,URINE NEGATIVE (NEGATIVE); LEUKOCYTE ESTERASE,URINE TRACE (NEGATIVE); LYMPHOCYTES % (AUTO) 14.2 % (13-45); MEAN CORPUSCULAR HEMOGLOBIN 37.6 pg (27.0-33.4); MEAN CORPUSCULAR HGB CONC 36.4 g/dL (32.0-36.0); MEAN CORPUSCULAR VOLUME 103 fl (80-97); MONOCYTES % (AUTO) 6.4 % (3-13); NITRITE,URINE NEGATIVE (NEGATIVE); PLATELET COUNT 429 10^3/uL (150-450); PROTEIN,URINE 30 mg/dL (NEGATIVE); RED BLOOD COUNT 2.91 10^6/uL (3.72-5.28); RED CELL DISTRIBUTION WIDTH 22.1 % (11.5-14.0); RETICULOCYTE COUNT (AUTO) 5.63 % (0.66-2.85); SEGMENTED NEUTROPHILS % (AUTO) 78.2 % (42-78); TOTAL CELLS COUNTED % (AUTO) 100 %; URINE SPECIFIC GRAVITY 1.013; UROBILINOGEN,URINE NEGATIVE mg/dL (<2.0); WHITE BLOOD COUNT 14.4 10^3/uL (4.0-10.5)
--- NOTE | 2020-02-20 16:21 | RADIOLOGY REPORT (SQ) ---
EXAM DESCRIPTION: CHEST SINGLE VIEW IMAGES COMPLETED DATE/TIME: 02/20/2020 3:27 pm REASON FOR STUDY: sickle cell, eval infiltrate COMPARISON: 01/24/2020 TECHNIQUE: Single frontal radiographic view of the chest acquired. NUMBER OF VIEWS: One view. LIMITATIONS: None. FINDINGS: LUNGS AND PLEURA: No pneumothorax. No consolidation or pleural effusion. MEDIASTINUM AND HILAR STRUCTURES: Stable. HEART AND VASCULAR STRUCTURES: Stable. BONES: No acute findings. HARDWARE: Right chest port. OTHER: No other significant finding. IMPRESSION: NO ACUTE FINDINGS. TECHNICAL DOCUMENTATION: JOB ID: [id number] [place]-72 2010 [employer]- All Rights Reserved Reading location - IP/workstation name: [email or web address]
[2020-02-20 16:27] LABS: ALBUMIN 4.6 g/dL (3.5-5.0); ALKALINE PHOSPHATASE 77 U/L (38-126); ANION GAP 12 (5-19); ASPARTATE AMINO TRANSFERASE 30 U/L (14-36); BILIRUBIN,DIRECT 0.1 mg/dL (0.0-0.4); BILIRUBIN,TOTAL 4.1 mg/dL (0.2-1.3); BLOOD UREA NITROGEN 4 mg/dL (7-20); CALCIUM 9.4 mg/dL (8.4-10.2); CARBON DIOXIDE 20 mmol/L (22-30); CHLORIDE 110 mmol/L (98-107); GLUCOSE 96 mg/dL (75-110); TOTAL PROTEIN 8.1 g/dL (6.3-8.2)
[2020-02-20] MEDS ORDERED: DIPHENHYDRAMINE HCL 25 MG CAPSULE PO ONE (17:52)
[2020-02-20] MEDS ORDERED: ACETAMINOPHEN 325 MG TABLET PO PRN (20:33)
[2020-02-20] MEDS ORDERED: NORMAL SALINE 1000 ML 1,000 ML IV PRN (20:33)
[2020-02-20] MEDS ORDERED: ONDANSETRON HCL INJ/PF 4 MG/2 ML SDV IV PRN (20:33)
[2020-02-20] MEDS ORDERED: PREGABALIN 75 MG CAPSULE PO PRN (20:47)
[2020-02-20] MEDS ORDERED: TRAZODONE HCL 50 MG TABLET PO SCH (22:00)
--- NOTE | 2020-02-20 22:06 | PDOC H&P ---
History of Present Illness Admission Date/PCP: 02/20/20 20:29 JOIE MOREIRA MD Patient complains of: Low back pain History of Present Illness: CASSANDRA MIDDLETON is a 25 year old female with a history of sickle cell disease on chronic opioids with multiple hospital admissions for painful crises now presents to the ED with a 1 week duration of progressively worsening low back pain. She described the pain as dull aching, 8-10/10 in intensity, nonradiating with no aggravating or relieving factor. She states that she has been taking Dilaudid 4 mg every 6 hourly at home but the pain continue to get worse. Patient was seen at the ED 1 day ago and was treated with IV Dilaudid with some improvement and was discharged but she will return at back this morning with uncontrolled low back pain. Currently she denies any chest pain, shortness of breath, fever, chills, nausea, vomiting, dysuria, hematuria, headache, change in her vision or weakness of extremities. Past Medical History Cardiac Medical History: Reports: DVT - RUE s/p port placement Denies: Hyperlipidema Pulmonary Medical History: Reports: Asthma, Bronchitis, Pneumonia Neurological Medical History: Endocrine Medical History: Denies: Diabetes Mellitus Type 1, Diabetes Mellitus Type 2 Renal/ Medical History: GI Medical History: Musculoskeltal Medical History: Psychiatric Medical History: Reports: Depression - and anxiety Hematology: Reports: Anemia, Sickle Cell Disease Denies: Bleeding Tendencies Past Surgical History Past Surgical History: Reports: Cholecystectomy - 06/28/2015, Vascular Surgery - port put in December,, Other - Port-A-Cath in right upper chest Social History Information Source: Patient Smoking Status: Never Smoker Electronic Cigarette use?: No Frequency of Alcohol Use: Social Hx Recreational Drug Use: No Drugs: None Hx Prescription Drug Abuse: No - Advance Directive Resuscitation Status: Full Code Family History Family History: Reviewed & Not Pertinent, Other - Sickle cell disease and sickle cell trait, asthma Parental Family History Reviewed: Yes Children Family History Reviewed: Yes Sibling(s) Family History Reviewed.: Yes Medication/Allergy Home Medications: Buspirone HCl [Buspar 10 mg Tablet] 5 mg PO BID 01/05/20 Cholecalciferol (Vitamin D3) [Vitamin D3 1000 Unit Tablet] 1,000 unit PO DAILY 01/05/20 Citalopram Hydrobromide [Celexa 20 mg Tablet] 20 mg PO Q12 01/05/20 Diphenhydramine HCl [Benadryl] 25 mg PO Q6HP PRN 01/05/20 Folic Acid [Folvite 1 mg Tablet] 1 mg PO DAILY 01/05/20 Glutamine [Endari] 3 packet PO BID 01/05/20 Hydromorphone HCl [Dilaudid 2 mg Tablet] 2 mg PO Q6HP PRN 01/05/20 Hydroxyurea [Hydrea 500 mg Capsule] 1,000 mg PO QAM 01/05/20 Hydroxyurea [Hydrea 500 mg Capsule] 500 mg PO QHS 01/05/20 Ibuprofen [Motrin 400 mg Tablet] 400 mg PO Q8 01/05/20 Pregabalin [Lyrica 75 mg Capsule] 75 mg PO Q8HP PRN 01/05/20 Trazodone HCl [Desyrel 50 mg Tablet] 50 mg PO QHS 01/05/20 Allergies/Adverse Reactions: morphine Allergy (Severe, Verified 02/20/20 11:24) RASH,SWELLING jacob peppers Adverse Reaction (Severe, Uncoded 02/20/20 11:24) throat closes Review of Systems Constitutional: ABSENT: chills, fever(s), headache(s), weight gain, weight loss Eyes: ABSENT: visual disturbances Ears: ABSENT: hearing changes Nose, Mouth, and Throat: ABSENT: headache(s), mouth pain, sore throat Cardiovascular: ABSENT: chest pain, dyspnea on exertion, edema, orthropnea, palpitations Respiratory: ABSENT: cough, hemoptysis Gastrointestinal: PRESENT: constipation. ABSENT: abdominal pain, diarrhea, hematemesis, hematochezia, nausea, vomiting Genitourinary: ABSENT: dysuria, hematuria Musculoskeletal: PRESENT: back pain. ABSENT: joint swelling Integumentary: ABSENT: rash, wounds Neurological: ABSENT: abnormal gait, abnormal speech, confusion, dizziness, focal weakness, syncope Psychiatric: ABSENT: anxiety, depression, homidical ideation, suicidal ideation Endocrine: ABSENT: cold intolerance, heat intolerance, polydipsia, polyuria Hematologic/Lymphatic: ABSENT: easy bleeding, easy bruising Physical Exam Vital Signs: Temp Pulse Resp BP Pulse Ox 98.0 F 86 20 113/63 100 02/20/20 20:32 02/20/20 20:32 02/20/20 20:32 02/20/20 20:32 02/20/20 20:32 Intake & Output 02/19/20 02/20/20 02/21/20 06:59 06:59 06:59 Intake Total 1000 Balance 1000 Weight 74 kg Additional comments: GENERAL APPEARANCE: Alert and oriented x3, appears to be in mild discomfort due to pain, no respiratory distress HEENT: Normocephalic and atraumatic. Mild scleral icterus. Moist oral mucosa NECK: Supple. No lymphadenopathy or tenderness. No JVD CHEST: Symmetric. Nontender to palpation. LUNGS: Clear with good air entry bilaterally. No wheezing or crackles HEART: Regular rate and rhythm with normal S1 and S2. No murmurs, gallops, or rubs. ABDOMEN: soft, active bowel sounds, no direct or rebound tenderness. No organomegaly detected. EXTREMITIES: No cyanosis, clubbing, or edema. MUSCULOSKELETAL: No deformity, atrophy or swelling noted PSYCHIATRIC: Appropriate mood and affect. SKIN: Warm, dry, and well perfused. No lesions or rashes are noted. NEUROLOGIC: No focal sensory or motor deficits are noted. Results Laboratory Results: 02/20/20 13:40 02/20/20 13:40 02/20/20 02/20/20 02/20/20 13:40 13:40 13:40 WBC 14.4 H RBC 2.91 L Hgb 10.9 L Hct 30.1 L MCV 103 H MCH 37.6 H MCHC 36.4 H RDW 22.1 H Plt Count 429 Seg Neutrophils % 78.2 H Retic Count (auto) 5.63 H Sodium 141.5 Potassium 4.0 Chloride 110 H Carbon Dioxide 20 L Anion Gap 12 BUN 4 L Creatinine 0.50 L Est GFR ( Amer) > 60 Glucose 96 Calcium 9.4 Total Bilirubin 4.1 H AST 30 Alkaline Phosphatase 77 Total Protein 8.1 Albumin 4.6 Urine Color YELLOW Urine Appearance CLEAR Urine pH 6.0 Ur Specific [place] 1.013 Urine Protein 30 H Urine Glucose (UA) NEGATIVE Urine Ketones NEGATIVE Urine Blood NEGATIVE Urine Nitrite NEGATIVE Ur Leukocyte Esterase TRACE H Urine WBC (Auto) 3 Urine RBC (Auto) 1 Impressions: Chest X-Ray 02/20/20 15:17 IMPRESSION: NO ACUTE FINDINGS. 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 Is this a current diagnosis for this admission?: Yes Plan: H&H on this encounter was 10.9/30.1 which is around her baseline Reticulocyte count 5.63 with a reticulocyte index of 2.68 indicating adequate response Continue hydroxyurea, folic acid Hematology consult placed Will continue to monitor CBC (3) Elevated bilirubin Is this a current diagnosis for this admission?: Yes Plan: Total bilirubin 4.1 with a direct bilirubin of 0.1 Due to hemolysis from sickle cell anemia Currently has elevated reticulocyte count with appropriate response Will continue monitoring CMP (4) Leukocytosis Qualifiers: Leukocytosis type: unspecified Qualified Code(s): D72.829 - Elevated white blood cell count, unspecified Is this a current diagnosis for this admission?: Yes Plan: Likely due to hemoconcentration Denies any fever or urinary symptoms UA, chest x-ray were nonremarkable We will continue IV hydration and monitor CBC - Time Time Spent with patient: 35 or more minutes Total Critical Time (Minutes): 40 Medications reviewed and adjusted accordingly: Yes Anticipated Discharge Disposition: Home, Self Care Anticipated Discharge Timeframe: within 48 hours - Inpatient Certification Based on my medical assessment, after consideration of the patient's comorbidities, presenting symptoms, or acuity I expect that the services needed warrant INPATIENT care.: Yes I certify that my determination is in accordance with my understanding of Medicare's requirements for reasonable and necessary INPATIENT services [42 CFR 412.3e].: Yes Medical Necessity: Need For IV Fluids, Need for Pain Control Post Hospital Care: D/C or Transfer Summary
[2020-02-20] MEDS: FAMOTIDINE 20 MG TABLET PO SCH (22:59)
[2020-02-20] MEDS: BUSPIRONE HCL 10 MG TABLET PO SCH (22:59)
[2020-02-20] MEDS: HYDROXYUREA 500 MG CAPSULE PO SCH (23:03)
[2020-02-21] MEDS: HYDROMORPHONE HCL INJ/PF 2 MG/ML AMPULE IV PRN ×9 (00:21→22:13)
[2020-02-21 07:26] LABS: HEMATOCRIT 27.2 % (36.0-47.0); HEMOGLOBIN 9.9 g/dL (12.0-15.5); MEAN CORPUSCULAR HEMOGLOBIN 37.3 pg (27.0-33.4); MEAN CORPUSCULAR HGB CONC 36.3 g/dL (32.0-36.0); MEAN CORPUSCULAR VOLUME 103 fl (80-97); PLATELET COUNT 383 10^3/uL (150-450); RED BLOOD COUNT 2.64 10^6/uL (3.72-5.28); RED CELL DISTRIBUTION WIDTH 21.4 % (11.5-14.0); WHITE BLOOD COUNT 12.1 10^3/uL (4.0-10.5)
[2020-02-21 07:53] LABS: ABSOLUTE LYMPHOCYTES# (MANUAL) 4.5 10^3/uL (0.5-4.7); ABSOLUTE MONOCYTES # (MANUAL) 1.6 10^3/uL (0.1-1.4); ANISOCYTOSIS 4+; BASOPHILS % (MANUAL) 0 % (0-2); EOSINOPHILS % (MANUAL) 2 % (0-6); LYMPHOCYTES % (MANUAL) 37 % (13-45); MONOCYTES % (MANUAL) 13 % (3-13); NUCLEATED RED BLOOD CELLS 1 /100 WBC (0); PLATELET COMMENT ADEQUATE; POIKILOCYTOSIS 2+; POLYCHROMASIA SLIGHT; SCHISTOCYTES SLIGHT; SEGMENTED NEUTROPHILS % (MAN) 48 % (42-78); SICKLE RED CELLS SLIGHT; TARGET CELLS 1+; TOTAL CELLS COUNTED 100
[2020-02-21] MEDS: NORMAL SALINE 1000 ML 1,000 ML IV PRN ×3 (08:22→21:48)
[2020-02-21] MEDS ORDERED: HYDROMORPHONE HCL 2 MG TABLET PO ONE (08:45)
--- NOTE | 2020-02-21 08:52 | PDOC CONSULTATION ---
Consultation Consult Date: 02/21/20 Provider Consulted: JOCELYN MARQUES Consult reason:: Hematology/Oncology consultation was requested for patient with Sickle Cell pain crisis. History of Present Illness Admission Date/PCP: 02/20/20 20:29 JOIE MOREIRA MD History of Present Illness: CASSANDRA MIDDLETON is a 25 year old female well known to our services with a long history of sickle cell anemia and frequent admissions for pain. She states that she was in her usual state of health and pain became unmanageable at home. No new symptoms or unusual symptoms. No obvious fever, infection, or causative factors. She received 1 mg dilaudid but is still complaining of severe joint and back pain. Currently, she is lying in her hospital bed without any IV fluids, oxygen, or other support. Past Medical History Cardiac Medical History: Reports: DVT - RUE s/p port placement Denies: Hyperlipidema Pulmonary Medical History: Reports: Asthma, Bronchitis, Pneumonia Neurological Medical History: Endocrine Medical History: Denies: Diabetes Mellitus Type 1, Diabetes Mellitus Type 2 Renal/ Medical History: GI Medical History: Musculoskeltal Medical History: Psychiatric Medical History: Reports: Depression Hematology: Reports: Anemia, Sickle Cell Disease Denies: Bleeding Tendencies Past Surgical History Past Surgical History: Reports: Cholecystectomy - 06/28/2015, Vascular Surgery - port put in December,, Other - Port-A-Cath in right upper chest Social History Smoking Status: Never Smoker Electronic Cigarette use?: No Frequency of Alcohol Use: Social Hx Recreational Drug Use: No Drugs: None Hx Prescription Drug Abuse: No - Advance Directive Resuscitation Status: Full Code Family History Family History: Reviewed & Not Pertinent, Other - Sickle cell disease and sickle cell trait, asthma Parental Family History Reviewed: Yes Children Family History Reviewed: Yes Sibling(s) Family History Reviewed.: Yes Medication/Allergy Home Medications: Buspirone HCl [Buspar 10 mg Tablet] 5 mg PO BID 01/05/20 Cholecalciferol (Vitamin D3) [Vitamin D3 1000 Unit Tablet] 1,000 unit PO DAILY 01/05/20 Citalopram Hydrobromide [Celexa 20 mg Tablet] 20 mg PO Q12 01/05/20 Diphenhydramine HCl [Benadryl] 25 mg PO Q6HP PRN 01/05/20 Folic Acid [Folvite 1 mg Tablet] 1 mg PO DAILY 01/05/20 Glutamine [Endari] 3 packet PO BID 01/05/20 Hydromorphone HCl [Dilaudid 2 mg Tablet] 2 mg PO Q6HP PRN 01/05/20 Hydroxyurea [Hydrea 500 mg Capsule] 1,000 mg PO QAM 01/05/20 Hydroxyurea [Hydrea 500 mg Capsule] 500 mg PO QHS 01/05/20 Ibuprofen [Motrin 400 mg Tablet] 400 mg PO Q8 01/05/20 Pregabalin [Lyrica 75 mg Capsule] 75 mg PO Q8HP PRN 01/05/20 Trazodone HCl [Desyrel 50 mg Tablet] 50 mg PO QHS 01/05/20 Allergies/Adverse Reactions: morphine Allergy (Severe, Verified 02/20/20 11:24) RASH,SWELLING jacob peppers Adverse Reaction (Severe, Uncoded 02/20/20 11:24) throat closes Review of Systems Constitutional: PRESENT: headache(s). ABSENT: fever(s) Eyes: ABSENT: visual disturbances Ears: ABSENT: hearing changes Nose, Mouth, and Throat: ABSENT: sore throat Cardiovascular: ABSENT: chest pain Respiratory: ABSENT: dyspnea Gastrointestinal: PRESENT: nausea. ABSENT: constipation Genitourinary: ABSENT: dysuria Musculoskeletal: PRESENT: back pain Integumentary: ABSENT: rash Neurological: ABSENT: confusion, dizziness Psychiatric: PRESENT: anxiety Hematologic/Lymphatic: ABSENT: easy bleeding Physical Exam Vital Signs: Temp Pulse Resp BP Pulse Ox 98.1 F 85 16 96/47 L 98 02/21/20 06:00 02/21/20 06:00 02/21/20 06:00 02/21/20 06:00 02/21/20 06:00 Intake & Output 02/20/20 02/21/20 02/22/20 06:59 06:59 06:59 Intake Total 1240 Balance 1240 Weight 75.5 kg General appearance: PRESENT: no acute distress, well-developed, well-nourished Exam: 25 year old female. Head exam: PRESENT: atraumatic, normocephalic Eye exam: PRESENT: EOMI Mouth exam: PRESENT: moist, tongue midline Neck exam: ABSENT: lymphadenopathy, tenderness Respiratory exam: PRESENT: clear to auscultation samaria, unlabored Cardiovascular exam: PRESENT: RRR GI/Abdominal exam: PRESENT: soft. ABSENT: tenderness Extremities exam: ABSENT: pedal edema Musculoskeletal exam: PRESENT: normal inspection Neurological exam: PRESENT: alert, awake, oriented to person, oriented to place, oriented to time, oriented to situation Psychiatric exam: PRESENT: appropriate affect Skin exam: PRESENT: normal color Results Laboratory Results: 02/21/20 06:45 02/20/20 13:40 02/20/20 02/20/20 02/20/20 13:40 13:40 13:40 WBC 14.4 H RBC 2.91 L Hgb 10.9 L Hct 30.1 L MCV 103 H MCH 37.6 H MCHC 36.4 H RDW 22.1 H Plt Count 429 Seg Neutrophils % 78.2 H Retic Count (auto) 5.63 H Sodium 141.5 Potassium 4.0 Chloride 110 H Carbon Dioxide 20 L Anion Gap 12 BUN 4 L Creatinine 0.50 L Est GFR ( Amer) > 60 Glucose 96 Calcium 9.4 Total Bilirubin 4.1 H AST 30 Alkaline Phosphatase 77 Total Protein 8.1 Albumin 4.6 Urine Color YELLOW Urine Appearance CLEAR Urine pH 6.0 Ur Specific [place] 1.013 Urine Protein 30 H Urine Glucose (UA) NEGATIVE Urine Ketones NEGATIVE Urine Blood NEGATIVE Urine Nitrite NEGATIVE Ur Leukocyte Esterase TRACE H Urine WBC (Auto) 3 Urine RBC (Auto) 1 02/21/20 06:45 WBC 12.1 H RBC 2.64 L Hgb 9.9 L Hct 27.2 L MCV 103 H MCH 37.3 H MCHC 36.3 H RDW 21.4 H Plt Count 383 Seg Neutrophils % Not Reportable Retic Count (auto) Sodium Potassium Chloride Carbon Dioxide Anion Gap BUN Creatinine Est GFR ( Amer) Glucose Calcium Total Bilirubin AST Alkaline Phosphatase Total Protein Albumin Urine Color Urine Appearance Urine pH Ur Specific [place] Urine Protein Urine Glucose (UA) Urine Ketones Urine Blood Urine Nitrite Ur Leukocyte Esterase Urine WBC (Auto) Urine RBC (Auto) Impressions: Chest X-Ray 02/20/20 15:17 IMPRESSION: NO ACUTE FINDINGS. Assessment & Plan - Diagnosis (1) Sickle cell pain crisis Is this a current diagnosis for this admission?: Yes Plan: Will start fluids, Oxygen, and her home medications. Will give dilaudid 2 mg IV q 3 hours PRN. Watch blood counts (M-W-F only) and chemistries. Encourage ambulation and good nutrition including extra PO fluids. (2) History of DVT (deep vein thrombosis) Is this a current diagnosis for this admission?: Yes Plan: Lovenox for DVT prophylaxis. - Plan Summary Plan Summary: I will order heating pad for bedside use at her request. Please call with any questions or concerns.
[2020-02-21] MEDS: ENOXAPARIN SODIUM INJ 40 MG/0.4 ML DISP.SYRIN SUBCUT SCH (09:23)
[2020-02-21] MEDS: BUSPIRONE HCL 10 MG TABLET PO SCH ×2 (09:24→21:42)
[2020-02-21] MEDS: CITALOPRAM HYDROBROMIDE 20 MG TABLET PO SCH ×2 (09:24→19:02)
[2020-02-21] MEDS: FOLIC ACID 1 MG TABLET PO SCH (09:24)
[2020-02-21] MEDS: FAMOTIDINE 20 MG TABLET PO SCH ×2 (09:25→21:41)
[2020-02-21] MEDS: HYDROXYUREA 500 MG CAPSULE PO SCH ×2 (09:25→21:41)
--- NOTE | 2020-02-21 13:11 | PDOC PROGRESS REPORT ---
Subjective Date:: 02/21/20 Subjective:: Patient was seen and examined. She still in a lot of pain. She was seen by hem atology and her pain medicine was increased. She is put on oxygen and started IV fluids. Reason For Visit: SICKLE CELL PAIN Physical Exam Vital Signs: Temp Pulse Resp BP Pulse Ox 98.0 F 86 18 108/54 L 100 02/21/20 10:52 02/21/20 10:52 02/21/20 10:52 02/21/20 10:52 02/21/20 10:52 Intake & Output 02/20/20 02/21/20 02/22/20 06:59 06:59 06:59 Intake Total 1240 200 Balance 1240 200 Weight 166 lb 7.184 oz Exam: GENERAL APPEARANCE: Alert and oriented x3 HEENT: Normocephalic and atraumatic. Mild scleral icterus. Moist oral mucosa NECK: Supple. No lymphadenopathy or tenderness. No JVD CHEST: Symmetric. Nontender to palpation. LUNGS: Clear with good air entry bilaterally. No wheezing or crackles HEART: Regular rate and rhythm with normal S1 and S2. No murmurs, gallops, or rubs. ABDOMEN: soft, active bowel sounds, no direct or rebound tenderness. No organomegaly detected. EXTREMITIES: No cyanosis, clubbing, or edema. MUSCULOSKELETAL: No deformity, atrophy or swelling noted PSYCHIATRIC: Appropriate mood and affect. SKIN: Warm, dry, and well perfused. No lesions or rashes are noted. NEUROLOGIC: No focal sensory or motor deficits are noted. Results Laboratory Results: 02/21/20 06:45 02/20/20 13:40 02/20/20 02/20/20 02/20/20 13:40 13:40 13:40 WBC 14.4 H RBC 2.91 L Hgb 10.9 L Hct 30.1 L MCV 103 H MCH 37.6 H MCHC 36.4 H RDW 22.1 H Plt Count 429 Seg Neutrophils % 78.2 H Retic Count (auto) 5.63 H Sodium 141.5 Potassium 4.0 Chloride 110 H Carbon Dioxide 20 L Anion Gap 12 BUN 4 L Creatinine 0.50 L Est GFR ( Amer) > 60 Glucose 96 Calcium 9.4 Total Bilirubin 4.1 H AST 30 Alkaline Phosphatase 77 Total Protein 8.1 Albumin 4.6 Urine Color YELLOW Urine Appearance CLEAR Urine pH 6.0 Ur Specific [place] 1.013 Urine Protein 30 H Urine Glucose (UA) NEGATIVE Urine Ketones NEGATIVE Urine Blood NEGATIVE Urine Nitrite NEGATIVE Ur Leukocyte Esterase TRACE H Urine WBC (Auto) 3 Urine RBC (Auto) 1 02/21/20 06:45 WBC 12.1 H RBC 2.64 L Hgb 9.9 L Hct 27.2 L MCV 103 H MCH 37.3 H MCHC 36.3 H RDW 21.4 H Plt Count 383 Seg Neutrophils % Not Reportable Retic Count (auto) Sodium Potassium Chloride Carbon Dioxide Anion Gap BUN Creatinine Est GFR ( Amer) Glucose Calcium Total Bilirubin AST Alkaline Phosphatase Total Protein Albumin Urine Color Urine Appearance Urine pH Ur Specific [place] Urine Protein Urine Glucose (UA) Urine Ketones Urine Blood Urine Nitrite Ur Leukocyte Esterase Urine WBC (Auto) Urine RBC (Auto) Impressions: Chest X-Ray 02/20/20 15:17 IMPRESSION: NO ACUTE FINDINGS. Assessment and Plan - Diagnosis (1) Sickle cell pain crisis Is this a current diagnosis for this admission?: Yes Plan: Presents with intractable low back pain This was her second presentation to ER in 24 hours for the same complaint, low back pain Continue IV fluids, oxygen, IV Dilaudid as needed. Monitor blood count. Appreciate hematology evaluation. 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 Is this a current diagnosis for this admission?: Yes Plan: H&H on this encounter was 10.9/30.1 which is around her baseline Reticulocyte count 5.63 with a reticulocyte index of 2.68 indicating adequate response Continue hydroxyurea, folic acid Hematology consult placed Will continue to monitor CBC (3) Elevated bilirubin Is this a current diagnosis for this admission?: Yes Plan: Total bilirubin 4.1 with a direct bilirubin of 0.1 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
[2020-02-21 14:02] LABS: ALBUMIN 3.7 g/dL (3.5-5.0); ALKALINE PHOSPHATASE 73 U/L (38-126); ASPARTATE AMINO TRANSFERASE 22 U/L (14-36); BILIRUBIN,DIRECT 0.3 mg/dL (0.0-0.4); BILIRUBIN,TOTAL 4.1 mg/dL (0.2-1.3); TOTAL PROTEIN 6.2 g/dL (6.3-8.2)
[2020-02-21] MEDS: DIPHENHYDRAMINE HCL 50 MG/ML VIAL IV PRN ×2 (16:47→22:13)
[2020-02-21] MEDS: TRAZODONE HCL 50 MG TABLET PO PRN (21:41)
[2020-02-22] MEDS: HYDROMORPHONE HCL INJ/PF 2 MG/ML AMPULE IV PRN ×7 (04:51→21:40)
[2020-02-22] MEDS: DIPHENHYDRAMINE HCL 50 MG/ML VIAL IV PRN ×4 (04:52→19:18)
[2020-02-22] MEDS: NORMAL SALINE 1000 ML 1,000 ML IV PRN ×3 (04:52→19:45)
[2020-02-22 07:09] LABS: HEMATOCRIT 25.2 % (36.0-47.0); HEMOGLOBIN 9.1 g/dL (12.0-15.5); MEAN CORPUSCULAR HEMOGLOBIN 36.9 pg (27.0-33.4); MEAN CORPUSCULAR HGB CONC 36.2 g/dL (32.0-36.0); MEAN CORPUSCULAR VOLUME 102 fl (80-97); PLATELET COUNT 355 10^3/uL (150-450); RED BLOOD COUNT 2.47 10^6/uL (3.72-5.28); RED CELL DISTRIBUTION WIDTH 21.5 % (11.5-14.0); WHITE BLOOD COUNT 11.8 10^3/uL (4.0-10.5)
[2020-02-22 07:26] LABS: ANION GAP 8 (5-19); BLOOD UREA NITROGEN 8 mg/dL (7-20); CALCIUM 8.8 mg/dL (8.4-10.2); CARBON DIOXIDE 24 mmol/L (22-30); CHLORIDE 109 mmol/L (98-107); GLUCOSE 93 mg/dL (75-110); POTASSIUM 4.3 mmol/L (3.6-5.0)
--- NOTE | 2020-02-22 07:58 | PDOC PROGRESS REPORT ---
Subjective Date:: 02/22/20 Subjective:: Patient states that pain medications wear off about 30 mins before next dose is due. She is still having significant pain, but states that she has no dyspnea, constipation, or itching with current medications. Reason For Visit: SICKLE CELL CRISIS Physical Exam Vital Signs: Temp Pulse Resp BP Pulse Ox 98.6 F 88 16 104/51 L 98 02/22/20 04:53 02/22/20 04:53 02/22/20 04:53 02/22/20 04:53 02/22/20 04:53 Intake & Output 02/21/20 02/22/20 02/23/20 06:59 06:59 06:59 Intake Total 1240 3118 Balance 1240 3118 Weight 75.5 kg General appearance: PRESENT: no acute distress Head exam: PRESENT: normocephalic Eye exam: PRESENT: EOMI Respiratory exam: PRESENT: unlabored Extremities exam: ABSENT: pedal edema Neurological exam: PRESENT: alert, awake Psychiatric exam: PRESENT: appropriate affect Skin exam: PRESENT: normal color Results Laboratory Results: 02/22/20 06:22 02/22/20 06:22 02/21/20 02/22/20 02/22/20 06:45 06:22 06:22 WBC 11.8 H RBC 2.47 L Hgb 9.1 L Hct 25.2 L MCV 102 H MCH 36.9 H MCHC 36.2 H RDW 21.5 H Plt Count 355 Sodium 140.9 Potassium 4.3 Chloride 109 H Carbon Dioxide 24 Anion Gap 8 BUN 8 Creatinine 0.57 Est GFR ( Amer) > 60 Glucose 93 Calcium 8.8 Total Bilirubin 4.1 H AST 22 Alkaline Phosphatase 73 Total Protein 6.2 L Albumin 3.7 Impressions: Chest X-Ray 02/20/20 15:17 IMPRESSION: NO ACUTE FINDINGS. Assessment & Plan - Diagnosis (1) Sickle cell pain crisis Is this a current diagnosis for this admission?: Yes Plan: I will increase dilaudid to q 2 hours instead of q3 hours. Continue with fluids, O2 and encourage good nutrition. (2) History of DVT (deep vein thrombosis) Is this a current diagnosis for this admission?: Yes Plan: Continue DVT prophylaxsis. Would love to see her walking in [place] if her pain is controlled well enough. - Time Time Spent with patient: Less than 15 minutes
[2020-02-22] MEDS ORDERED: HYDROMORPHONE HCL INJ/PF 2 MG/ML AMPULE ONE (08:11)
[2020-02-22] MEDS: HYDROXYUREA 500 MG CAPSULE PO SCH ×2 (08:17→21:41)
[2020-02-22] MEDS: BUSPIRONE HCL 10 MG TABLET PO SCH ×2 (10:36→21:41)
[2020-02-22] MEDS: FAMOTIDINE 20 MG TABLET PO SCH ×2 (10:36→21:41)
[2020-02-22] MEDS: CITALOPRAM HYDROBROMIDE 20 MG TABLET PO SCH ×2 (10:37→17:17)
[2020-02-22] MEDS: FOLIC ACID 1 MG TABLET PO SCH (10:37)
[2020-02-22] MEDS: ENOXAPARIN SODIUM INJ 40 MG/0.4 ML DISP.SYRIN SUBCUT SCH (11:23)
--- NOTE | 2020-02-22 12:28 | PDOC PROGRESS REPORT ---
Subjective Date:: 02/22/20 Subjective:: Patient was seen and examined. She says she is just feeling pain but better daniel n yesterday slightly. The frequency of Dilaudid has increased by oncology. Continues on oxygen and IV fluids. Reason For Visit: SICKLE CELL CRISIS Physical Exam Vital Signs: Temp Pulse Resp BP Pulse Ox 98.3 F 88 16 133/77 H 98 02/22/20 11:13 02/22/20 11:13 02/22/20 11:13 02/22/20 11:13 02/22/20 11:13 Intake & Output 02/21/20 02/22/20 02/23/20 06:59 06:59 06:59 Intake Total 1240 3118 Balance 1240 3118 Weight 166 lb 7.184 oz Exam: GENERAL APPEARANCE: Alert and oriented x3 HEENT: Normocephalic and atraumatic. Mild scleral icterus. Moist oral mucosa NECK: Supple. No lymphadenopathy or tenderness. No JVD CHEST: Symmetric. Nontender to palpation. LUNGS: Clear with good air entry bilaterally. No wheezing or crackles HEART: Regular rate and rhythm with normal S1 and S2. No murmurs, gallops, or rubs. ABDOMEN: soft, active bowel sounds, no direct or rebound tenderness. No organomegaly detected. EXTREMITIES: No cyanosis, clubbing, or edema. MUSCULOSKELETAL: No deformity, atrophy or swelling noted PSYCHIATRIC: Appropriate mood and affect. SKIN: Warm, dry, and well perfused. No lesions or rashes are noted. NEUROLOGIC: No focal sensory or motor deficits are noted. Results Laboratory Results: 02/22/20 06:22 02/22/20 06:22 02/21/20 02/22/20 02/22/20 06:45 06:22 06:22 WBC 11.8 H RBC 2.47 L Hgb 9.1 L Hct 25.2 L MCV 102 H MCH 36.9 H MCHC 36.2 H RDW 21.5 H Plt Count 355 Sodium 140.9 Potassium 4.3 Chloride 109 H Carbon Dioxide 24 Anion Gap 8 BUN 8 Creatinine 0.57 Est GFR ( Amer) > 60 Glucose 93 Calcium 8.8 Total Bilirubin 4.1 H AST 22 Alkaline Phosphatase 73 Total Protein 6.2 L Albumin 3.7 Impressions: Chest X-Ray 02/20/20 15:17 IMPRESSION: NO ACUTE FINDINGS. 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 Monitor blood count. Appreciate hematology evaluation. 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
[2020-02-22 13:13] LABS: ALBUMIN 3.6 g/dL (3.5-5.0); ALKALINE PHOSPHATASE 80 U/L (38-126); ASPARTATE AMINO TRANSFERASE 24 U/L (14-36); BILIRUBIN,DIRECT 0.2 mg/dL (0.0-0.4); BILIRUBIN,TOTAL 3.3 mg/dL (0.2-1.3); TOTAL PROTEIN 6.4 g/dL (6.3-8.2)
[2020-02-22] MEDS: TRAZODONE HCL 50 MG TABLET PO PRN (21:41)
[2020-02-23] MEDS: HYDROMORPHONE HCL INJ/PF 2 MG/ML AMPULE IV PRN ×9 (01:02→22:25)
[2020-02-23] MEDS: DIPHENHYDRAMINE HCL 50 MG/ML VIAL IV PRN ×5 (01:02→22:23)
[2020-02-23] MEDS: NORMAL SALINE 1000 ML 1,000 ML IV PRN ×3 (02:50→16:55)
--- NOTE | 2020-02-23 07:34 | PDOC PROGRESS REPORT ---
Subjective Date:: 02/23/20 Subjective:: Patient states that her pain comes and goes. Shortly after pain meds are given, she has relief, but then meds wear off and her pain returns. She was able to walk in [place] yesterday. She denies any constipation or dyspnea. Reason For Visit: SICKLE CELL CRISIS Physical Exam Vital Signs: Temp Pulse Resp BP Pulse Ox 98.8 F 99 18 119/62 98 02/23/20 04:00 02/23/20 04:00 02/23/20 04:00 02/23/20 04:00 02/23/20 04:00 Intake & Output 02/22/20 02/23/20 02/24/20 06:59 06:59 06:59 Intake Total 3118 3500 Balance 3118 3500 Weight 75.5 kg General appearance: PRESENT: no acute distress, well-developed, well-nourished Head exam: PRESENT: normocephalic Eye exam: PRESENT: EOMI Respiratory exam: PRESENT: unlabored Extremities exam: ABSENT: pedal edema Neurological exam: PRESENT: alert, awake Psychiatric exam: PRESENT: appropriate affect Skin exam: PRESENT: normal color Results Laboratory Results: 02/22/20 06:22 02/22/20 06:22 02/22/20 06:22 Total Bilirubin 3.3 H AST 24 Alkaline Phosphatase 80 Total Protein 6.4 Albumin 3.6 Impressions: Chest X-Ray 02/20/20 15:17 IMPRESSION: NO ACUTE FINDINGS. Assessment & Plan - Diagnosis (1) Sickle cell pain crisis Is this a current diagnosis for this admission?: Yes Plan: Patient does not wish to make any adjustments to pain meds today. Will continue treatments without changes. Only check labs q Mon-Wed-Fri. (2) History of DVT (deep vein thrombosis) Is this a current diagnosis for this admission?: Yes Plan: Continue Lovenox prophylaxis. Encouraged ambulation and fluids. - Time Time Spent with patient: Less than 15 minutes
[2020-02-23 08:30] LABS: HEMATOCRIT 24.1 % (36.0-47.0); HEMOGLOBIN 8.7 g/dL (12.0-15.5); MEAN CORPUSCULAR HEMOGLOBIN 36.6 pg (27.0-33.4); MEAN CORPUSCULAR HGB CONC 35.9 g/dL (32.0-36.0); MEAN CORPUSCULAR VOLUME 102 fl (80-97); PLATELET COUNT 327 10^3/uL (150-450); RED BLOOD COUNT 2.37 10^6/uL (3.72-5.28); RED CELL DISTRIBUTION WIDTH 21.8 % (11.5-14.0); WHITE BLOOD COUNT 10.3 10^3/uL (4.0-10.5)
[2020-02-23 08:40] LABS: ANION GAP 8 (5-19); BLOOD UREA NITROGEN 6 mg/dL (7-20); CALCIUM 8.7 mg/dL (8.4-10.2); CARBON DIOXIDE 25 mmol/L (22-30); CHLORIDE 106 mmol/L (98-107); GLUCOSE 88 mg/dL (75-110); POTASSIUM 4.1 mmol/L (3.6-5.0)
[2020-02-23] MEDS: FAMOTIDINE 20 MG TABLET PO SCH ×2 (09:48→22:24)
[2020-02-23] MEDS: CITALOPRAM HYDROBROMIDE 20 MG TABLET PO SCH ×2 (09:48→17:51)
[2020-02-23] MEDS: BUSPIRONE HCL 10 MG TABLET PO SCH ×2 (09:48→22:25)
[2020-02-23] MEDS: FOLIC ACID 1 MG TABLET PO SCH (09:48)
[2020-02-23] MEDS: ENOXAPARIN SODIUM INJ 40 MG/0.4 ML DISP.SYRIN SUBCUT SCH (10:07)
[2020-02-23] MEDS: HYDROXYUREA 500 MG CAPSULE PO SCH ×2 (10:13→22:24)
--- NOTE | 2020-02-23 15:37 | PDOC PROGRESS REPORT ---
Subjective Date:: 02/23/20 Subjective:: Patient was seen and examined. She was seen by beam dyer recessed vat this morning. She says she is just feeling pain but better than yesterday slightly. Continues on oxygen and IV fluids. Reason For Visit: SICKLE CELL CRISIS Physical Exam Vital Signs: Temp Pulse Resp BP Pulse Ox 98.0 F 88 16 117/58 L 100 02/23/20 11:25 02/23/20 11:25 02/23/20 11:25 02/23/20 11:25 02/23/20 11:25 Intake & Output 02/22/20 02/23/20 02/24/20 06:59 06:59 06:59 Intake Total 3118 3500 1380 Balance 3118 3500 1380 Weight 166 lb 7.184 oz Exam: GENERAL APPEARANCE: Alert and oriented x3 HEENT: Normocephalic and atraumatic. Mild scleral icterus. Moist oral mucosa NECK: Supple. No lymphadenopathy or tenderness. No JVD CHEST: Symmetric. Nontender to palpation. LUNGS: Clear with good air entry bilaterally. No wheezing or crackles HEART: Regular rate and rhythm with normal S1 and S2. No murmurs, gallops, or rubs. ABDOMEN: soft, active bowel sounds, no direct or rebound tenderness. No organomegaly detected. EXTREMITIES: No cyanosis, clubbing, or edema. MUSCULOSKELETAL: No deformity, atrophy or swelling noted PSYCHIATRIC: Appropriate mood and affect. SKIN: Warm, dry, and well perfused. No lesions or rashes are noted. NEUROLOGIC: No focal sensory or motor deficits are noted. Results Laboratory Results: 02/23/20 07:40 02/23/20 07:40 02/23/20 02/23/20 07:40 07:40 WBC 10.3 RBC 2.37 L Hgb 8.7 L Hct 24.1 L MCV 102 H MCH 36.6 H MCHC 35.9 RDW 21.8 H Plt Count 327 Sodium 139.1 Potassium 4.1 Chloride 106 Carbon Dioxide 25 Anion Gap 8 BUN 6 L Creatinine 0.45 L Est GFR ( Amer) > 60 Glucose 88 Calcium 8.7 Impressions: Chest X-Ray 02/20/20 15:17 IMPRESSION: NO ACUTE FINDINGS. 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 Monitor blood count Friday as per insulation cutter rec ommendations. Appreciate hematology evaluation. 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
[2020-02-23] MEDS: TRAZODONE HCL 50 MG TABLET PO PRN (22:24)
[2020-02-24] MEDS: NORMAL SALINE 1000 ML 1,000 ML IV PRN ×2 (00:13→08:01)
[2020-02-24] MEDS: HYDROMORPHONE HCL INJ/PF 2 MG/ML AMPULE IV PRN ×7 (00:28→14:24)
[2020-02-24] MEDS: DIPHENHYDRAMINE HCL 50 MG/ML VIAL IV PRN ×3 (02:52→12:22)
[2020-02-24] MEDS: BUSPIRONE HCL 10 MG TABLET PO SCH (10:09)
[2020-02-24] MEDS: FOLIC ACID 1 MG TABLET PO SCH (10:09)
[2020-02-24] MEDS: CITALOPRAM HYDROBROMIDE 20 MG TABLET PO SCH (10:09)
[2020-02-24] MEDS: FAMOTIDINE 20 MG TABLET PO SCH (10:10)
[2020-02-24] MEDS: HYDROXYUREA 500 MG CAPSULE PO SCH (10:15)
[2020-02-24] MEDS: ENOXAPARIN SODIUM INJ 40 MG/0.4 ML DISP.SYRIN SUBCUT SCH (10:15)
[2020-02-24 12:12] VITALS: BP 121/74
--- NOTE | 2020-02-24 13:41 | PDOC PROGRESS REPORT ---
Subjective Date:: 02/24/20 Subjective:: Patient states that her pain is much improved and she would like to go home. Reason For Visit: SICKLE CELL CRISIS Physical Exam Vital Signs: Temp Pulse Resp BP Pulse Ox 98.3 F 68 16 121/74 100 02/24/20 12:12 02/24/20 12:12 02/24/20 12:12 02/24/20 12:12 02/24/20 12:12 Intake & Output 02/23/20 02/24/20 02/25/20 06:59 06:59 06:59 Intake Total 3500 5280 300 Balance 3500 5280 300 Weight 75.5 kg 80.2 kg General appearance: PRESENT: no acute distress Head exam: PRESENT: normocephalic Eye exam: PRESENT: EOMI Respiratory exam: PRESENT: unlabored Extremities exam: ABSENT: pedal edema Neurological exam: PRESENT: alert, awake, oriented to person, oriented to place, oriented to time, oriented to situation Psychiatric exam: PRESENT: appropriate affect Skin exam: PRESENT: normal color Results Laboratory Results: 02/23/20 07:40 02/23/20 07:40 Impressions: Chest X-Ray 02/20/20 15:17 IMPRESSION: NO ACUTE FINDINGS. Assessment & Plan - Diagnosis (1) Sickle cell pain crisis Is this a current diagnosis for this admission?: Yes Plan: resolving. I am in agreement with discharge home. She already has all pain medications and does not require any Rx on discharge. Follow-up with Dr. Baum as previously scheduled in 2 weeks. (2) History of DVT (deep vein thrombosis) Is this a current diagnosis for this admission?: Yes - Time Time Spent with patient: Less than 15 minutes
--- NOTE | 2020-02-24 13:56 | PDOC DISCHARGE SUMMARY ---
Impression - Admit/DC Date/PCP Admission Date/Primary Care Provider: 02/21/20 15:59 JOIE MOREIRA MD Discharge Date: 02/24/20 - Discharge Diagnosis (1) Sickle cell pain crisis Is this a current diagnosis for this admission?: Yes (2) Anemia Is this a current diagnosis for this admission?: Yes (3) Elevated bilirubin Is this a current diagnosis for this admission?: Yes (4) Leukocytosis Is this a current diagnosis for this admission?: Yes - Assessment Summary: Assessment and Plan (1) Sickle cell pain crisis Presents with intractable low back pain This was her second presentation to ER in 24 hours for the same complaint, low back pain Continue IV fluids, oxygen, IV Dilaudid as needed. Monitor blood count Friday as per admittance attendant recommendations. Appreciate hematology evaluation. (2) Anemia H&H on this encounter was 10.9/30.1 which is around her baseline Reticulocyte count 5.63 with a reticulocyte index of 2.68 indicating adequate response Continue hydroxyurea, folic acid Hematology consult placed Will continue to monitor CBC (3) Elevated bilirubin Total bilirubin 4.1 with a direct bilirubin of 0.1 Due to hemolysis from sickle cell anemia Currently has elevated reticulocyte count with appropriate response Will continue monitoring CMP (4) Leukocytosis Likely due to hemoconcentration Denies any fever or urinary symptoms UA, chest x-ray were nonremarkable Continue IV hydration and monitor CBC - Additional Information Resuscitation Status: Full Code Discharge Diet: As Tolerated Discharge Activity: Activity As Tolerated, Balance Activity w/Rest Referrals: JOIE MOREIRA MD [Primary Care Provider] - Follow up as needed Home Medications: Buspirone HCl [Buspar 10 mg Tablet] 5 mg PO BID 01/05/20 Cholecalciferol (Vitamin D3) [Vitamin D3 1000 Unit Tablet] 1,000 unit PO DAILY 01/05/20 Citalopram Hydrobromide [Celexa 20 mg Tablet] 20 mg PO DAILY 01/05/20 Diphenhydramine HCl [Benadryl] 25 mg PO Q6HP PRN 01/05/20 Folic Acid [Folvite 1 mg Tablet] 1 mg PO DAILY 01/05/20 Hydromorphone HCl [Dilaudid 2 mg Tablet] 4 mg PO Q4HP PRN 01/05/20 Hydroxyurea [Hydrea 500 mg Capsule] 1,000 mg PO QAM 01/05/20 Hydroxyurea [Hydrea 500 mg Capsule] 500 mg PO QHS 01/05/20 Ibuprofen [Motrin 400 mg Tablet] 400 mg PO Q8 01/05/20 Trazodone HCl [Desyrel 50 mg Tablet] 50 mg PO QHS 01/05/20 History of Present Illiness History of Present Illness: CASSANDRA MIDDLETON is a 25 year old female Hospital Course Hospital Course: (1) Sickle cell pain crisis Presents with intractable low back pain This was her second presentation to ER in 24 hours for the same complaint, low back pain Patient received IV fluids, oxygen, IV Dilaudid as needed. Monitor blood count Friday as per admittance attendant recommendations. Appreciate hematology evaluation. (2) Anemia H&H on this encounter was 10.9/30.1 which is around her baseline Reticulocyte count 5.63 with a reticulocyte index of 2.68 indicating adequate response Continue hydroxyurea, folic acid Hematology consult placed Will continue to monitor CBC (3) Elevated bilirubin Total bilirubin 4.1 with a direct bilirubin of 0.1 Due to hemolysis from sickle cell anemia Currently has elevated reticulocyte count with appropriate response Will continue monitoring CMP (4) Leukocytosis Likely due to hemoconcentration Denies any fever or urinary symptoms UA, chest x-ray were nonremarkable Continue IV hydration and monitor CBC Patient is stable for discharge. Her pain is controlled. She already has enough pain medication at home and she will not need any scripts. Discussed with Dr. Madrigal. Discussed with the patient and nursing staff. Physical Exam Vital Signs: Temp Pulse Resp BP Pulse Ox 98.3 F 68 16 121/74 100 02/24/20 12:12 02/24/20 12:12 02/24/20 12:12 02/24/20 12:12 02/24/20 12:12 Intake & Output 02/23/20 02/24/20 02/25/20 06:59 06:59 06:59 Intake Total 3500 5280 300 Balance 3500 5280 300 Weight 166 lb 7.184 oz 176 lb 12.972 oz Exam: GENERAL APPEARANCE: Alert and oriented x3 HEENT: Normocephalic and atraumatic. Mild scleral icterus. Moist oral mucosa NECK: Supple. No lymphadenopathy or tenderness. No JVD CHEST: Symmetric. Nontender to palpation. LUNGS: Clear with good air entry bilaterally. No wheezing or crackles HEART: Regular rate and rhythm with normal S1 and S2. No murmurs, gallops, or rubs. ABDOMEN: soft, active bowel sounds, no direct or rebound tenderness. No organomegaly detected. EXTREMITIES: No cyanosis, clubbing, or edema. MUSCULOSKELETAL: No deformity, atrophy or swelling noted PSYCHIATRIC: Appropriate mood and affect. SKIN: Warm, dry, and well perfused. No lesions or rashes are noted. NEUROLOGIC: No focal sensory or motor deficits are noted. Re Results Laboratory Results: WBC 10.3 10^3/uL (4.0-10.5) 02/23/20 07:40 RBC 2.37 10^6/uL (3.72-5.28) L 02/23/20 07:40 Hgb 8.7 g/dL (12.0-15.5) L 02/23/20 07:40 Hct 24.1 % (36.0-47.0) L 02/23/20 07:40 MCV 102 fl (80-97) H 02/23/20 07:40 MCH 36.6 pg (27.0-33.4) H 02/23/20 07:40 MCHC 35.9 g/dL (32.0-36.0) 02/23/20 07:40 RDW 21.8 % (11.5-14.0) H 02/23/20 07:40 Plt Count 327 10^3/uL (150-450) 02/23/20 07:40 Lymph % (Auto) Not Reportable 02/21/20 06:45 [place] % (Auto) Not Reportable 02/21/20 06:45 Eos % (Auto) Not Reportable 02/21/20 06:45 Baso % (Auto) Not Reportable 02/21/20 06:45 Reticulocyte # 0.164 10^6/uL (0.028-0.122) H 02/20/20 13:40 Absolute Neuts (auto) Not Reportable 02/21/20 06:45 Absolute Lymphs (auto) Not Reportable 02/21/20 06:45 Absolute Monos (auto) Not Reportable 02/21/20 06:45 Absolute Eos (auto) Not Reportable 02/21/20 06:45 Absolute Basos (auto) Not Reportable 02/21/20 06:45 Total Counted 100 02/21/20 06:45 Seg Neutrophils % Not Reportable 02/21/20 06:45 Seg Neuts % (Manual) 48 % (42-78) 02/21/20 06:45 Lymphocytes % (Manual) 37 % (13-45) 02/21/20 06:45 Monocytes % (Manual) 13 % (3-13) 02/21/20 06:45 Eosinophils % (Manual) 2 % (0-6) 02/21/20 06:45 Basophils % (Manual) 0 % (0-2) 02/21/20 06:45 Abs Neuts (Manual) 5.8 10^3/uL (1.7-8.2) 02/21/20 06:45 Abs Lymphs (Manual) 4.5 10^3/uL (0.5-4.7) 02/21/20 06:45 Abs Monocytes (Manual) 1.6 10^3/uL (0.1-1.4) H 02/21/20 06:45 Absolute Eos (Manual) 0.2 10^3/uL (0.0-0.6) 02/21/20 06:45 Abs Basophils (Manual) 0.0 10^3/uL (0.0-0.2) 02/21/20 06:45 Nucleated RBCs 1 /100 WBC (0) 02/21/20 06:45 Platelet Comment ADEQUATE 02/21/20 06:45 Polychromasia SLIGHT 02/21/20 06:45 Poikilocytosis 2+ 02/21/20 06:45 Anisocytosis 4+ 02/21/20 06:45 Sickle Cells SLIGHT 02/21/20 06:45 Target Cells 1+ 02/21/20 06:45 Schistocytes SLIGHT 02/21/20 06:45 Retic Count (auto) 5.63 % (0.66-2.85) H 02/20/20 13:40 Sodium 139.1 mmol/L (137-145) 02/23/20 07:40 Potassium 4.1 mmol/L (3.6-5.0) 02/23/20 07:40 Chloride 106 mmol/L (98-107) 02/23/20 07:40 Carbon Dioxide 25 mmol/L (22-30) 02/23/20 07:40 Anion Gap 8 (5-19) 02/23/20 07:40 BUN 6 mg/dL (7-20) L 02/23/20 07:40 Creatinine 0.45 mg/dL (0.52-1.25) L 02/23/20 07:40 Est GFR ( Amer) > 60 (>60) 02/23/20 07:40 Est GFR (MDRD) Non-Af > 60 (>60) 02/23/20 07:40 Glucose 88 mg/dL (75-110) 02/23/20 07:40 Calcium 8.7 mg/dL (8.4-10.2) 02/23/20 07:40 Total Bilirubin 3.3 mg/dL (0.2-1.3) H 02/22/20 06:22 Direct Bilirubin 0.2 mg/dL (0.0-0.4) 02/22/20 06:22 Neonat Total Bilirubin Not Reportable 02/22/20 06:22 Neonat Direct Bilirubin Not Reportable 02/22/20 06:22 Neonat Indirect Bili Not Reportable 02/22/20 06:22 AST 24 U/L (14-36) 02/22/20 06:22 ALT 10 U/L (<35) 02/22/20 06:22 Alkaline Phosphatase 80 U/L (38-126) 02/22/20 06:22 Total Protein 6.4 g/dL (6.3-8.2) 02/22/20 06:22 Albumin 3.6 g/dL (3.5-5.0) 02/22/20 06:22 Urine Color YELLOW 02/20/20 13:40 Urine Appearance CLEAR 02/20/20 13:40 Urine pH 6.0 (5.0-9.0) 02/20/20 13:40 Ur Specific [place] 1.013 02/20/20 13:40 Urine Protein 30 mg/dL (NEGATIVE) H 02/20/20 13:40 Urine Glucose (UA) NEGATIVE mg/dL (NEGATIVE) 02/20/20 13:40 Urine Ketones NEGATIVE mg/dL (NEGATIVE) 02/20/20 13:40 Urine Blood NEGATIVE (NEGATIVE) 02/20/20 13:40 Urine Nitrite NEGATIVE (NEGATIVE) 02/20/20 13:40 Urine Bilirubin NEGATIVE (NEGATIVE) 02/20/20 13:40 Urine Urobilinogen NEGATIVE mg/dL (<2.0) 02/20/20 13:40 Ur Leukocyte Esterase TRACE (NEGATIVE) H 02/20/20 13:40 Urine WBC (Auto) 3 /HPF 02/20/20 13:40 Urine RBC (Auto) 1 /HPF 02/20/20 13:40 U Hyaline Cast (Auto) 2 /LPF 02/20/20 13:40 Squamous Epi Cells Auto 3 /HPF 02/20/20 13:40 Urine Mucus (Auto) RARE /LPF 02/20/20 13:40 Urine Ascorbic Acid NEGATIVE (NEGATIVE) 02/20/20 13:40 Urine HCG, Qual NEGATIVE (NEGATIVE) 02/20/20 13:40 Impressions: Chest X-Ray 02/20/20 15:17 IMPRESSION: NO ACUTE FINDINGS. Stroke Is this a Stroke Patient?: No Acute Heart Failure Is this a Heart Failure Patient?: No
== END 2020-02-24 15:10 | disposition home or self-care (01) | DRG 812 ==
LOC: ER 10:28 → INTOOBSV 20:29 → EH 20:29 → 5 22:20 → 2N 02-21 10:44 → OBSVTOIN 02-21 15:59
PROVIDERS: ADMIT Student in an Organized Health Care Education/Training Program; ATTEND Family Medicine
DX: D57.00 Hb-SS disease with crisis, unspecified (principal); F41.9 Anxiety disorder, unspecified; F32.9 Major depressive disorder, single episode, unspecified; D72.829 Elevated white blood cell count, unspecified; Z79.899 Other long term (current) drug therapy; Z86.718 Personal history of other venous thrombosis and embolism; Z88.6 Allergy status to analgesic agent; Z91.018 Allergy to other foods; Z79.891 Long term (current) use of opiate analgesic
CPT/HCPCS: 36415; 71045; 80048; 80053; 80076; 81001; 81025; 85025; 85027; 85045; 96361; 96374; 96375; 96376; 99285; G0378; J1170; J1200; J1642; J1650; J1885; J2405; J7030

== ENCOUNTER 2020-02-27 02:10 | Inpatient (IN) | payer MEDICAID ==
[2020-02-27] MEDS ORDERED: NORMAL SALINE 1000 ML 1,000 ML IV ONE (02:42)
[2020-02-27] MEDS ORDERED: ONDANSETRON HCL INJ/PF 4 MG/2 ML SDV IV ONE (02:42)
[2020-02-27] MEDS ORDERED: HYDROMORPHONE HCL INJ/PF 2 MG/ML AMPULE IV ONE ×2 (02:42→04:48)
--- NOTE | 2020-02-27 02:44 | ER Document Report ---
ED GI/ - General Chief Complaint: Nausea/Vomiting/Diarrhea Stated Complaint: NAUSEA,VOMITING,DIARRHEA,LOWER BACK PAIN Time Seen by Provider: 02/27/20 02:35 Primary Care Provider: JOIE BAUM MD [Primary Care Provider] - Follow up as needed Notes: Patient is a 25-year-old female who comes emergency department for chief complaint of body aches, back pain, and 3 episodes of vomiting tonight. Patient has a history of sickle cell anemia and follows with local maintenance porter Dr. Baum. She denies fever/chills, abdominal pain, dysuria, vaginal bleeding or discharge, chest pain, shortness of breath, headache. She is currently compliant with all her home medications reportedly. She has had a cholecystectomy but not a splenectomy. She denies any other abdominal surgeries. She states each episode of vomiting was after she tried to eat something. TRAVEL OUTSIDE OF THE [place] IN LAST 30 DAYS: No - Related Data Allergies/Adverse Reactions: morphine Allergy (Severe, Verified 02/20/20 11:24) RASH,SWELLING jacob peppers Adverse Reaction (Severe, Uncoded 02/20/20 11:24) throat closes Home Medications: folic acid. hydoxyria. celexa. buspar. trazadone. vitamin D Past Medical History - General Information source: Patient - Social History Smoking Status: Never Smoker Chew tobacco use (# tins/day): No Frequency of alcohol use: Occasional Drug Abuse: None Lives with: Spouse/Significant other Family History: Reviewed & Not Pertinent, Other - Sickle cell disease and sickle cell trait, asthma - Past Medical History Cardiac Medical History: Reports: Hx DVT - RUE s/p port placement Denies: Hx Hypercholesterolemia Pulmonary Medical History: Reports: Hx Asthma, Hx Bronchitis, Hx Pneumonia Neurological Medical History: Denies: Hx Parkinson's Disease Endocrine Medical History: Denies: Hx Diabetes Mellitus Type 1, Hx Diabetes Mellitus Type 2 Renal/ Medical History: Denies: Hx Peritoneal Dialysis GI Medical History: Musculoskeletal Medical History: Reports Hx Musculoskeletal Trauma Psychiatric Medical History: Reports: Hx Anxiety, Hx Depression Past Surgical History: Reports: Hx Cholecystectomy - 06/28/2015, Hx Vascular Surgery - port put in December,, Other - Port-A-Cath in right upper chest - Immunizations Immunizations up to date: Yes Hx Diphtheria, Pertussis, Tetanus Vaccination: Yes Review of Systems - Review of Systems Constitutional: No symptoms reported EENT: No symptoms reported Cardiovascular: No symptoms reported Respiratory: No symptoms reported Gastrointestinal: See HPI Genitourinary: See HPI Female Genitourinary: No symptoms reported Musculoskeletal: See HPI Skin: No symptoms reported Hematologic/Lymphatic: No symptoms reported Neurological/Psychological: No symptoms reported Physical Exam - Vital signs Vitals: Temp Pulse Resp BP Pulse Ox 98 F 105 H 18 112/78 97 02/27/20 02:23 02/27/20 02:23 02/27/20 02:23 02/27/20 02:23 02/27/20 02:23 - Notes Notes: GENERAL: Alert, interacts well. Mildly uncomfortable but no severe distress HEAD: Normocephalic, atraumatic. EYES: Pupils equal, round, and reactive to light. Extraocular movements intact. ENT: Oral mucosa moist, tongue midline. Oropharynx unremarkable. Airway patent. NECK: Full range of motion. Supple. Trachea midline. No lymphadenopathy. LUNGS: Clear to auscultation bilaterally, no wheezes, rales, or rhonchi. No respiratory distress. Non-tender chest wall. HEART: Mildly tachycardic, normal rhythm, no murmur ABDOMEN: Soft, non-tender. Non-distended. EXTREMITIES: Moves all 4 extremities spontaneously. No edema, normal radial and dorsalis pedis pulses bilaterally. No cyanosis. BACK: no cervical, thoracic, lumbar midline tenderness. No saddle anesthesia, normal distal neurovascular exam. Moves all extremities in full range of motion. NEUROLOGICAL: Alert and oriented x3. Normal speech. Cranial nerves II through XII grossly intact. Strength 5/5 in all extremities. PSYCH: Normal affect, normal mood. SKIN: Warm, dry, normal turgor. No rashes or lesions noted. Course - Re-evaluation Re-evalutation: On initial evaluation patient is nontoxic in appearance but she is slightly restless and mildly tachycardic. No CVA tenderness. Her abdomen is actually benign. Lungs clear. No fever, no hypotension. Work-up pending. On reevaluation patient states she is improved but shortly after this patient started having pain again and was requesting more medication. This was prov ided. CBC shows leukocytosis at greater than 18,000, elevation of neutrophils, no bandemia. Reticulocyte is elevated compared to recently. Hemoglobin is not concerningly low. Patient has significantly high indirect bilirubin suggesting sickling. Urine shows a few squamous epithelials but significantly more white blood cells and moderate leukocyte esterase. Culture placed, giving antibiotics. Discussed with patient. Patient states she does feel better but states she does not feel good and she feels like she will likely need to return if she is discharged. Because of her evaluation, obvious sickling on laboratory work-up, urinary tract infection, reported vomiting, persistent pain, will discuss with hospitalist for admission. Patient states appreciation and agreement. 02/27/20 05:[address] Sampson, hospitalist, patient accepted full admission. He requests I speak to hematology salon receptionist. I spoke with Dr. Madrigal, hematology/oncology, she states she will consult on the patient and requests that I place the consult so she can find the patient. - Vital Signs Vital signs: Temp Pulse Resp BP Pulse Ox 98.4 F 87 18 114/65 95 02/27/20 04:41 02/27/20 04:41 02/27/20 02:23 02/27/20 04:41 02/27/20 04:41 - Laboratory Result Diagrams: 02/27/20 03:39 02/27/20 03:39 Laboratory results interpreted by me: 02/27/20 02/27/20 02/27/20 03:39 03:39 04:30 WBC 18.2 H RBC 2.61 L Hgb 9.7 L Hct 27.2 L MCV 104 H MCH 37.2 H RDW 26.0 H Reticulocyte # 0.317 H Abs Neuts (Manual) 11.5 H Abs Monocytes (Manual) 1.6 H Absolute Eos (Manual) 0.9 H Retic Count (auto) 12.17 H Chloride 109 H Carbon Dioxide 21 L BUN 6 L Creatinine 0.50 L Total Bilirubin 7.4 H AST 50 H Urine Urobilinogen 2.0 H Ur Leukocyte Esterase MODERATE H Discharge - Discharge Clinical Impression: Sickle cell pain crisis Vomiting Qualifiers: Vomiting type: unspecified Vomiting Intractability: non-intractable Nausea presence: with nausea Qualified Code(s): R11.2 - Nausea with vomiting, unspecified Urinary tract infection Qualifiers: Urinary tract infection type: site unspecified Hematuria presence: without hematuria Qualified Code(s): N39.0 - Urinary tract infection, site not specified Condition: Stable Disposition: ADMITTED INPATIENT Admitting Provider: Adrián (Hospitalist) Unit Admitted: Medical Floor Referrals: JOIE BAUM MD [Primary Care Provider] - Follow up as needed
[2020-02-27 04:12] LABS: ABSOLUTE RETICS # 0.317 10^6/uL (0.028-0.122); HEMATOCRIT 27.2 % (36.0-47.0); HEMOGLOBIN 9.7 g/dL (12.0-15.5); MEAN CORPUSCULAR HEMOGLOBIN 37.2 pg (27.0-33.4); MEAN CORPUSCULAR HGB CONC 35.7 g/dL (32.0-36.0); MEAN CORPUSCULAR VOLUME 104 fl (80-97); PLATELET COUNT 406 10^3/uL (150-450); RED BLOOD COUNT 2.61 10^6/uL (3.72-5.28); RETICULOCYTE COUNT (AUTO) 12.17 % (0.66-2.85); WHITE BLOOD COUNT 18.2 10^3/uL (4.0-10.5)
[2020-02-27] MEDS ORDERED: DIPHENHYDRAMINE HCL 50 MG/ML VIAL IV ONE (04:15)
[2020-02-27 04:53] LABS: ABSOLUTE LYMPHOCYTES# (MANUAL) 4.2 10^3/uL (0.5-4.7); ABSOLUTE MONOCYTES # (MANUAL) 1.6 10^3/uL (0.1-1.4); BASOPHILS % (MANUAL) 0 % (0-2); EOSINOPHILS % (MANUAL) 5 % (0-6); LYMPHOCYTES % (MANUAL) 23 % (13-45); MONOCYTES % (MANUAL) 9 % (3-13); NUCLEATED RED BLOOD CELLS 6 /100 WBC (0); SEGMENTED NEUTROPHILS % (MAN) 63 % (42-78); TOTAL CELLS COUNTED 100
[2020-02-27 04:55] LABS: ANISOCYTOSIS 3+; OVALOCYTES 1+; POIKILOCYTOSIS 2+; POLYCHROMASIA 2+; TARGET CELLS 1+
[2020-02-27 04:56] LABS: PLATELET CLUMPS PRESENT; PLATELET COMMENT ADEQUATE; SCHISTOCYTES SLIGHT; SICKLE RED CELLS SLIGHT; TEAR DROP CELLS SLIGHT
[2020-02-27 05:14] LABS: ALBUMIN 4.6 g/dL (3.5-5.0); ALKALINE PHOSPHATASE 82 U/L (38-126); ANION GAP 12 (5-19); ASPARTATE AMINO TRANSFERASE 50 U/L (14-36); BILIRUBIN,DIRECT 0.3 mg/dL (0.0-0.4); BILIRUBIN,TOTAL 7.4 mg/dL (0.2-1.3); BLOOD UREA NITROGEN 6 mg/dL (7-20); CALCIUM 9.5 mg/dL (8.4-10.2); CARBON DIOXIDE 21 mmol/L (22-30); CHLORIDE 109 mmol/L (98-107); GLUCOSE 107 mg/dL (75-110); POTASSIUM 3.7 mmol/L (3.6-5.0); TOTAL PROTEIN 8.1 g/dL (6.3-8.2)
[2020-02-27 05:15] LABS: APPEARANCE,URINE CLEAR; BILIRUBIN,URINE NEGATIVE (NEGATIVE); COLOR,URINE YELLOW; GLUCOSE, URINE NEGATIVE (NEGATIVE); KETONES,URINE NEGATIVE (NEGATIVE); LEUKOCYTE ESTERASE,URINE MODERATE (NEGATIVE); NITRITE,URINE NEGATIVE (NEGATIVE); PROTEIN,URINE NEGATIVE (NEGATIVE); URINE SPECIFIC GRAVITY 1.015
[2020-02-27] MEDS ORDERED: CEFTRIAXONE 1 GM/D5W RTU 1 GM/50 ML RTUPB IV ONE (05:28)
[2020-02-27] MEDS ORDERED: HYDROMORPHONE HCL INJ/PF 2 MG/ML AMPULE IV PRN ×3 (06:15→16:16)
[2020-02-27] MEDS ORDERED: ONDANSETRON HCL INJ/PF 4 MG/2 ML SDV IV PRN (06:16)
--- NOTE | 2020-02-27 06:30 | PDOC H&P ---
History of Present Illness Admission Date/PCP: JOIE MOREIRA MD History of Present Illness: CASSANDRA MIDDLETON is a 25 year old female who is extremely well-known to this service with a history of sickle cell who presents complaining of nausea, vomiting, diarrhea, and back pain since last night. She came to the ER and was found to have elevated white blood cell count, elevated bilirubin, elevated reticulocyte count. She tends to run a little bit of elevated white blood cell count most of the time, and she also tends to run an elevated reticulocyte count and bilirubin as well. When I came into the room she appeared completely comfortable, laying back with the head of the bed elevated, watching TV, eating celine crackers and peanut butter, and drinking Cristina mist. Past Medical History Cardiac Medical History: Reports: DVT - RUE s/p port placement Denies: Hyperlipidema Pulmonary Medical History: Reports: Asthma, Bronchitis, Pneumonia Neurological Medical History: Endocrine Medical History: Denies: Diabetes Mellitus Type 1, Diabetes Mellitus Type 2 Renal/ Medical History: GI Medical History: Musculoskeltal Medical History: Psychiatric Medical History: Reports: Depression Hematology: Reports: Anemia, Sickle Cell Disease Denies: Bleeding Tendencies Past Surgical History Past Surgical History: Reports: Cholecystectomy - 06/28/2015, Vascular Surgery - port put in December,, Other - Port-A-Cath in right upper chest Social History Lives with: Spouse/Significant other Smoking Status: Never Smoker Electronic Cigarette use?: No Frequency of Alcohol Use: Social Hx Recreational Drug Use: No Drugs: None Hx Prescription Drug Abuse: No Family History Family History: Reviewed & Not Pertinent, Other - Sickle cell disease and sickle cell trait, asthma Parental Family History Reviewed: Yes Children Family History Reviewed: NA Sibling(s) Family History Reviewed.: Yes Medication/Allergy Home Medications: Buspirone HCl [Buspar 10 mg Tablet] 5 mg PO BID 01/05/20 Cholecalciferol (Vitamin D3) [Vitamin D3 1000 Unit Tablet] 1,000 unit PO DAILY 01/05/20 Citalopram Hydrobromide [Celexa 20 mg Tablet] 20 mg PO DAILY 01/05/20 Diphenhydramine HCl [Benadryl] 25 mg PO Q6HP PRN 01/05/20 Folic Acid [Folvite 1 mg Tablet] 1 mg PO DAILY 01/05/20 Hydromorphone HCl [Dilaudid 2 mg Tablet] 4 mg PO Q4HP PRN 01/05/20 Hydroxyurea [Hydrea 500 mg Capsule] 1,000 mg PO QAM 01/05/20 Hydroxyurea [Hydrea 500 mg Capsule] 500 mg PO QHS 01/05/20 Ibuprofen [Motrin 400 mg Tablet] 400 mg PO Q8 01/05/20 Trazodone HCl [Desyrel 50 mg Tablet] 50 mg PO QHS 01/05/20 Allergies/Adverse Reactions: morphine Allergy (Severe, Verified 02/20/20 11:24) RASH,SWELLING jacob peppers Adverse Reaction (Severe, Uncoded 02/20/20 11:24) throat closes Review of Systems All systems: reviewed and no additional remarkable complaints except as stated - All systems were reviewed and were negative except as noted in the HPI Physical Exam Vital Signs: Temp Pulse Resp BP Pulse Ox 98.4 F 87 18 114/65 95 02/27/20 04:41 02/27/20 04:41 02/27/20 02:23 02/27/20 04:41 02/27/20 04:41 Intake & Output 02/25/20 02/26/20 02/27/20 06:59 06:59 06:59 Intake Total 1050 Balance 1050 Weight 73.6 kg General appearance: PRESENT: no acute distress, cooperative, disheveled, obese Head exam: PRESENT: atraumatic, normocephalic Eye exam: PRESENT: EOMI, PERRLA. ABSENT: conjunctival injection, nystagmus, scleral icterus Ear exam: PRESENT: normal external ear exam Mouth exam: PRESENT: moist, neck supple Throat exam: ABSENT: post pharyngeal erythema Neck exam: PRESENT: full ROM. ABSENT: carotid bruit, JVD, lymphadenopathy, meningismus, tenderness, thyromegaly Respiratory exam: PRESENT: clear to auscultation [place], symmetrical, unlabored. ABSENT: accessory muscle use, chest wall tenderness, crackles, prolonged expiratory phas, rhonchi, tachypnea, wheezes Cardiovascular exam: PRESENT: RRR, +S1, +S2 Pulses: PRESENT: normal carotid pulses Vascular exam: PRESENT: normal capillary refill GI/Abdominal exam: PRESENT: normal bowel sounds, soft. ABSENT: distended, rebound, tenderness Extremities exam: ABSENT: clubbing, pedal edema Musculoskeletal exam: PRESENT: normal inspection. ABSENT: deformity Neurological exam: PRESENT: awake, oriented to person, oriented to place, oriented to situation, CN II-XII grossly intact. ABSENT: motor sensory deficit Psychiatric exam: PRESENT: appropriate affect, normal mood Skin exam: PRESENT: dry, warm Results Laboratory Results: 02/27/20 03:39 02/27/20 03:39 02/27/20 02/27/20 02/27/20 03:39 03:39 03:39 WBC 18.2 H RBC 2.61 L Hgb 9.7 L Hct 27.2 L MCV 104 H MCH 37.2 H MCHC 35.7 RDW 26.0 H Plt Count 406 Seg Neutrophils % Not Reportable Retic Count (auto) 12.17 H Sodium 141.5 Potassium 3.7 Chloride 109 H Carbon Dioxide 21 L Anion Gap 12 BUN 6 L Creatinine 0.50 L Est GFR ( Amer) > 60 Glucose 107 Calcium 9.5 Total Bilirubin 7.4 H AST 50 H Alkaline Phosphatase 82 Total Protein 8.1 Albumin 4.6 Lipase 102.9 Serum HCG, Qual NEGATIVE Urine Color Urine Appearance Urine pH Ur Specific [place] Urine Protein Urine Glucose (UA) Urine Ketones Urine Blood Urine Nitrite Ur Leukocyte Esterase Urine WBC (Auto) Urine RBC (Auto) 02/27/20 04:30 WBC RBC Hgb Hct MCV MCH MCHC RDW Plt Count Seg Neutrophils % Retic Count (auto) Sodium Potassium Chloride Carbon Dioxide Anion Gap BUN Creatinine Est GFR ( Amer) Glucose Calcium Total Bilirubin AST Alkaline Phosphatase Total Protein Albumin Lipase Serum HCG, Qual Urine Color YELLOW Urine Appearance CLEAR Urine pH 6.0 Ur Specific [place] 1.015 Urine Protein NEGATIVE Urine Glucose (UA) NEGATIVE Urine Ketones NEGATIVE Urine Blood NEGATIVE Urine Nitrite NEGATIVE Ur Leukocyte Esterase MODERATE H Urine WBC (Auto) 31 Urine RBC (Auto) 5 Assessment and Plan - Diagnosis (1) Sickle cell anemia Qualifiers: Sickle-cell associated disorders: without crisis Qualified Code(s): D57.1 - Sickle-cell disease without crisis Is this a current diagnosis for this admission?: Yes - Plan Summary Summary: What ever her labs may look like, she certainly looks comfortable now. We will put her on some fluids and continue her home medications except for her oral Dilaudid, which has been converted to IV. Hematology has been consulted and will make adjustments to her pain medication as necessary. - Time Time Spent with patient: 25-34 minutes Anticipated Discharge Disposition: Home, Self Care Anticipated Discharge Timeframe: Unknown
[2020-02-27] MEDS: NORMAL SALINE 1000 ML 1,000 ML IV PRN ×2 (08:38→18:17)
--- NOTE | 2020-02-27 12:38 | PDOC CONSULTATION ---
Consultation Consult Date: 02/27/20 Provider Consulted: JOCELYN MARQUES Consult reason:: Hematology/Oncology consultation was requested for kaleb le Sickle Cell anemia and pain crisis. History of Present Illness Admission Date/PCP: 02/27/20 06:28 JOIE MOREIRA MD History of Present Illness: CASSANDRA MIDDLETON is a 25 year old female who was discharged from this institution 3 days ago. She has frequent pain crises. She report increased nausea and vomiting with back pain typical for pain crisis that was not able to be managed at home. No chest pain, no fevers, cough, dyspnea. Past Medical History Cardiac Medical History: Reports: DVT - RUE s/p port placement Denies: Hyperlipidema Pulmonary Medical History: Reports: Asthma, Bronchitis, Pneumonia Neurological Medical History: Endocrine Medical History: Denies: Diabetes Mellitus Type 1, Diabetes Mellitus Type 2 Renal/ Medical History: GI Medical History: Musculoskeltal Medical History: Psychiatric Medical History: Reports: Depression Hematology: Reports: Anemia, Sickle Cell Disease Denies: Bleeding Tendencies Past Surgical History Past Surgical History: Reports: Cholecystectomy - 06/28/2015, Vascular Surgery - port put in December,, Other - Port-A-Cath in right upper chest Social History Lives with: Spouse/Significant other Smoking Status: Never Smoker Electronic Cigarette use?: No Frequency of Alcohol Use: Social Hx Recreational Drug Use: No Drugs: None Hx Prescription Drug Abuse: No Family History Family History: Reviewed & Not Pertinent, Other - Sickle cell disease and sickle cell trait, asthma Parental Family History Reviewed: Yes Children Family History Reviewed: No Sibling(s) Family History Reviewed.: No Medication/Allergy Home Medications: Hydromorphone HCl [Dilaudid 2 mg Tablet] 4 mg PO Q4HP PRN 01/05/20 Allergies/Adverse Reactions: morphine Allergy (Severe, Verified 02/20/20 11:24) RASH,SWELLING jacob peppers Adverse Reaction (Severe, Uncoded 02/20/20 11:24) throat closes Review of Systems Constitutional: ABSENT: fever(s), headache(s) Eyes: ABSENT: visual disturbances Ears: ABSENT: hearing changes Nose, Mouth, and Throat: ABSENT: sore throat Cardiovascular: ABSENT: chest pain Respiratory: ABSENT: dyspnea Gastrointestinal: PRESENT: diarrhea, nausea Genitourinary: ABSENT: dysuria Musculoskeletal: PRESENT: back pain Integumentary: PRESENT: pruritus Neurological: ABSENT: weakness Hematologic/Lymphatic: ABSENT: easy bleeding Physical Exam Vital Signs: Temp Pulse Resp BP Pulse Ox 97.6 F 89 18 123/91 H 95 02/27/20 11:07 02/27/20 11:07 02/27/20 11:07 02/27/20 11:07 02/27/20 11:07 Intake & Output 02/26/20 02/27/20 02/28/20 06:59 06:59 06:59 Intake Total 1050 Balance 1050 Weight 73.6 kg General appearance: PRESENT: no acute distress, well-developed, well-nourished Head exam: PRESENT: normocephalic Eye exam: PRESENT: EOMI, PERRLA Neck exam: ABSENT: lymphadenopathy, tenderness Respiratory exam: PRESENT: clear to auscultation samaria, unlabored Cardiovascular exam: PRESENT: RRR GI/Abdominal exam: PRESENT: normal bowel sounds, soft. ABSENT: tenderness Extremities exam: ABSENT: pedal edema Musculoskeletal exam: PRESENT: normal inspection Neurological exam: PRESENT: alert, awake, oriented to person, oriented to place, oriented to time, oriented to situation Psychiatric exam: PRESENT: appropriate affect Skin exam: PRESENT: normal color Results Laboratory Results: 02/27/20 03:39 02/27/20 03:39 02/27/20 02/27/20 02/27/20 03:39 03:39 03:39 WBC 18.2 H RBC 2.61 L Hgb 9.7 L Hct 27.2 L MCV 104 H MCH 37.2 H MCHC 35.7 RDW 26.0 H Plt Count 406 Seg Neutrophils % Not Reportable Retic Count (auto) 12.17 H Sodium 141.5 Potassium 3.7 Chloride 109 H Carbon Dioxide 21 L Anion Gap 12 BUN 6 L Creatinine 0.50 L Est GFR ( Amer) > 60 Glucose 107 Calcium 9.5 Total Bilirubin 7.4 H AST 50 H Alkaline Phosphatase 82 Total Protein 8.1 Albumin 4.6 Lipase 102.9 Serum HCG, Qual NEGATIVE Urine Color Urine Appearance Urine pH Ur Specific [place] Urine Protein Urine Glucose (UA) Urine Ketones Urine Blood Urine Nitrite Ur Leukocyte Esterase Urine WBC (Auto) Urine RBC (Auto) 02/27/20 04:30 WBC RBC Hgb Hct MCV MCH MCHC RDW Plt Count Seg Neutrophils % Retic Count (auto) Sodium Potassium Chloride Carbon Dioxide Anion Gap BUN Creatinine Est GFR ( Amer) Glucose Calcium Total Bilirubin AST Alkaline Phosphatase Total Protein Albumin Lipase Serum HCG, Qual Urine Color YELLOW Urine Appearance CLEAR Urine pH 6.0 Ur Specific [place] 1.015 Urine Protein NEGATIVE Urine Glucose (UA) NEGATIVE Urine Ketones NEGATIVE Urine Blood NEGATIVE Urine Nitrite NEGATIVE Ur Leukocyte Esterase MODERATE H Urine WBC (Auto) 31 Urine RBC (Auto) 5 Assessment & Plan - Diagnosis (1) Sickle cell pain crisis Is this a current diagnosis for this admission?: Yes Plan: Will support with oxygen, IV fluids, benadryl, anti-nausea. Will start Dilaudid ROLLER TURNER to get pain under control.
[2020-02-27] MEDS: HYDROMORPHONE HCL 30 MG/60 ML RTUINJ IV PRN (14:19)
[2020-02-27] MEDS: HEPARIN SOD (PORCINE) 5,000 UNIT/ML 1 ML VIAL SUBCUT SCH ×2 (14:20→22:25)
[2020-02-27] MEDS ORDERED: DIPHENHYDRAMINE HCL 25 MG CAPSULE ONE (16:57)
[2020-02-27] MEDS: DIPHENHYDRAMINE HCL 25 MG CAPSULE PO PRN ×2 (18:18→22:23)
--- NOTE | 2020-02-27 18:20 | PDOC PROGRESS REPORT ---
Subjective Date:: 02/27/20 Subjective:: The patient is a 25-year-old female with a past medical history significant for sickle cell disease, depression, DVT to the right upper extremity status post port placement, and obesity who was admitted 02/27/2020 with sickle cell anemia and sickle cell crisis pain. Patient is seen on afternoon rounds. She is found resting in bed, comfortably, on supplemental oxygen by nasal cannula; she is maintaining appropriate oxygen saturations on when on room air. 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 She reports generalized itching but other dewey has no complaints. She further denies fever, chills, chest pain, palpitations, dyspnea, abdominal pain, nausea vomiting and diarrhea. She has no other questions or concerns at this time. No concerns per nursing. Reason For Visit: SICKLE CELL PAIN Physical Exam Vital Signs: Temp Pulse Resp BP Pulse Ox 97.9 F 86 16 106/53 L 99 02/27/20 15:15 02/27/20 15:15 02/27/20 15:30 02/27/20 15:15 02/27/20 15:30 Intake & Output 02/26/20 02/27/20 02/28/20 06:59 06:59 06:59 Intake Total 1050 Balance 1050 Weight 73.6 kg General appearance: PRESENT: no acute distress, obese, well-developed, well- nourished Head exam: PRESENT: atraumatic, normocephalic Eye exam: PRESENT: conjunctiva pink, EOMI, PERRLA. ABSENT: scleral icterus Mouth exam: PRESENT: moist, tongue midline Respiratory exam: PRESENT: clear to auscultation samaria, symmetrical, unlabored. ABSENT: rales, rhonchi, wheezes Cardiovascular exam: PRESENT: RRR, +S1, +S2. ABSENT: diastolic murmur, rubs, systolic murmur Pulses: PRESENT: normal dorsalis pedis pul Vascular exam: PRESENT: normal capillary refill Extremities exam: PRESENT: full ROM. ABSENT: calf tenderness, clubbing, pedal edema Musculoskeletal exam: PRESENT: ambulatory Neurological exam: PRESENT: alert, awake, oriented to person, oriented to place, oriented to time, oriented to situation, CN II-XII grossly intact. ABSENT: motor sensory deficit Psychiatric exam: PRESENT: appropriate affect, normal mood. ABSENT: homicidal ideation, suicidal ideation Skin exam: PRESENT: dry, intact, warm. ABSENT: cyanosis, rash Results Laboratory Results: 02/27/20 03:39 02/27/20 03:39 02/27/20 02/27/20 02/27/20 03:39 03:39 03:39 WBC 18.2 H RBC 2.61 L Hgb 9.7 L Hct 27.2 L MCV 104 H MCH 37.2 H MCHC 35.7 RDW 26.0 H Plt Count 406 Seg Neutrophils % Not Reportable Retic Count (auto) 12.17 H Sodium 141.5 Potassium 3.7 Chloride 109 H Carbon Dioxide 21 L Anion Gap 12 BUN 6 L Creatinine 0.50 L Est GFR ( Amer) > 60 Glucose 107 Calcium 9.5 Total Bilirubin 7.4 H AST 50 H Alkaline Phosphatase 82 Total Protein 8.1 Albumin 4.6 Lipase 102.9 Serum HCG, Qual NEGATIVE Urine Color Urine Appearance Urine pH Ur Specific [place] Urine Protein Urine Glucose (UA) Urine Ketones Urine Blood Urine Nitrite Ur Leukocyte Esterase Urine WBC (Auto) Urine RBC (Auto) 02/27/20 04:30 WBC RBC Hgb Hct MCV MCH MCHC RDW Plt Count Seg Neutrophils % Retic Count (auto) Sodium Potassium Chloride Carbon Dioxide Anion Gap BUN Creatinine Est GFR ( Amer) Glucose Calcium Total Bilirubin AST Alkaline Phosphatase Total Protein Albumin Lipase Serum HCG, Qual Urine Color YELLOW Urine Appearance CLEAR Urine pH 6.0 Ur Specific [place] 1.015 Urine Protein NEGATIVE Urine Glucose (UA) NEGATIVE Urine Ketones NEGATIVE Urine Blood NEGATIVE Urine Nitrite NEGATIVE Ur Leukocyte Esterase MODERATE H Urine WBC (Auto) 31 Urine RBC (Auto) 5 Assessment and Plan - Diagnosis (1) Sickle cell pain crisis Is this a current diagnosis for this admission?: Yes Plan: Patient has been admitted. She is provided supplemental oxygen for comfort and maintain saturations greater than 92%. We will continue gentle IV fluids. Patient is established with Dr. Baum; have consulted Hematology. Primary plan per Heme. Per Dr. Madrigal; patient has been placed on Dilaudid S[employer]ICE PRESIDENT [employer] GENERAL COUNSEL. 1mg/hr basal w/ 0.5 mg q20 min prn. Will continue oral Benadryl prn itching. Continue nonpharmacological interventions for comfort. (2) Sickle cell anemia Qualifiers: Sickle-cell associated disorders: without crisis Qualified Code(s): D57.1 - Sickle-cell disease without crisis Is this a current diagnosis for this admission?: Yes Plan: Hgb 9.7; at baseline. Will follow CBC and transfuse for <7. Primary plan per Hematology. (3) Leukocytosis Qualifiers: Leukocytosis type: unspecified Qualified Code(s): D72.829 - Elevated white blood cell count, unspecified Is this a current diagnosis for this admission?: Yes Plan: Unclear etiology. Possibly acute inflammatory r/t sickle cell crisis pain.Urinalysis is negative UTI. Patient denies urinary symptoms. She did report diarrhea to the ED provided; none today. Will obtain stool for WBCs and Culture. No indications for antibiotics at this time. (4) Diarrhea Qualifiers: Diarrhea type: unspecified type Qualified Code(s): R19.7 - Diarrhea, unspecified Is this a current diagnosis for this admission?: Yes Plan: She did report diarrhea to the ED provided; none today. Will obtain stool for WBCs and Culture. No indications for antibiotics at this time. (5) Tobacco abuse Is this a current diagnosis for this admission?: Yes Plan: Nicotine cessation encouraged. Nicotine replacement therapies provided. - Time Time Spent with patient: 25-34 minutes Medications reviewed and adjusted accordingly: Yes Anticipated Discharge Disposition: Home, Self Care Anticipated Discharge Timeframe: unclear
[2020-02-28] MEDS: DIPHENHYDRAMINE HCL 25 MG CAPSULE PO PRN (02:45)
[2020-02-28] MEDS: NORMAL SALINE 1000 ML 1,000 ML IV PRN ×2 (04:38→13:45)
[2020-02-28] MEDS: HEPARIN SOD (PORCINE) 5,000 UNIT/ML 1 ML VIAL SUBCUT SCH ×3 (06:44→22:02)
[2020-02-28 07:12] LABS: HEMATOCRIT 26.7 % (36.0-47.0); HEMOGLOBIN 9.7 g/dL (12.0-15.5); MEAN CORPUSCULAR HEMOGLOBIN 38.1 pg (27.0-33.4); MEAN CORPUSCULAR HGB CONC 36.3 g/dL (32.0-36.0); MEAN CORPUSCULAR VOLUME 105 fl (80-97); PLATELET COUNT 391 10^3/uL (150-450); RED BLOOD COUNT 2.55 10^6/uL (3.72-5.28)
[2020-02-28 07:51] LABS: ANION GAP 12 (5-19); BLOOD UREA NITROGEN 4 mg/dL (7-20); CARBON DIOXIDE 21 mmol/L (22-30); CHLORIDE 108 mmol/L (98-107); GLUCOSE 76 mg/dL (75-110); POTASSIUM 4.2 mmol/L (3.6-5.0)
--- NOTE | 2020-02-28 08:39 | PDOC PROGRESS REPORT ---
Subjective Date:: 02/28/20 Subjective:: Patient states that the benadryl PO is not helping her itching as much as the IV . 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 No other complaints today. Reason For Visit: SICKLE CELL PAIN Physical Exam Vital Signs: Temp Pulse Resp BP Pulse Ox 97.8 F 91 16 115/68 100 02/28/20 05:00 02/28/20 05:00 02/28/20 07:00 02/28/20 05:00 02/28/20 07:00 Intake & Output 02/27/20 02/28/20 02/29/20 06:59 06:59 06:59 Intake Total 1050 1965 Output Total 300 Balance 1050 1665 Weight 73.6 kg 73.6 kg General appearance: PRESENT: no acute distress, well-developed, well-nourished Head exam: PRESENT: normocephalic Eye exam: PRESENT: EOMI Respiratory exam: PRESENT: unlabored Musculoskeletal exam: PRESENT: normal inspection Neurological exam: PRESENT: alert, awake Psychiatric exam: PRESENT: appropriate affect Skin exam: PRESENT: normal color Results Laboratory Results: 02/28/20 06:44 02/28/20 06:44 02/28/20 02/28/20 06:44 06:44 WBC 13.8 H RBC 2.55 L Hgb 9.7 L Hct 26.7 L MCV 105 H MCH 38.1 H MCHC 36.3 H RDW 27.0 H Plt Count 391 Sodium 140.5 Potassium 4.2 Chloride 108 H Carbon Dioxide 21 L Anion Gap 12 BUN 4 L Creatinine 0.49 L Est GFR ( Amer) > 60 Glucose 76 Calcium 9.0 Assessment & Plan - Diagnosis (1) Sickle cell pain crisis Is this a current diagnosis for this admission?: Yes Plan: Continue current management. She is on dilaudid GARNETT MACHINE OPERATOR HELPER and pain adequately controlled. I will change PO benadryl to IV. She is receiving heparin SC TID for DVT prophylaxis. Consider decreasing basal rate of GARNETT MACHINE OPERATOR HELPER tomorrow if pain improved. Try to only draw labs -- if possible. - Time Time Spent with patient: Less than 15 minutes
[2020-02-28] MEDS: DIPHENHYDRAMINE HCL 50 MG/ML VIAL IV PRN ×4 (09:03→22:01)
[2020-02-28] MEDS: HYDROMORPHONE HCL 30 MG/60 ML RTUINJ IV PRN (12:03)
[2020-02-28 13:16] LABS: APPEARANCE,URINE CLEAR; BILIRUBIN,URINE NEGATIVE (NEGATIVE); COLOR,URINE YELLOW; GLUCOSE, URINE NEGATIVE (NEGATIVE); KETONES,URINE NEGATIVE (NEGATIVE); LEUKOCYTE ESTERASE,URINE LARGE (NEGATIVE); NITRITE,URINE NEGATIVE (NEGATIVE); PROTEIN,URINE NEGATIVE (NEGATIVE); UROBILINOGEN,URINE NEGATIVE mg/dL (<2.0)
--- NOTE | 2020-02-28 15:08 | PDOC PROGRESS REPORT ---
Subjective Date:: 02/28/20 Subjective:: The patient is a 25-year-old female with a past medical history significant for sickle cell disease, depression, DVT to the right upper extremity status post port placement, and obesity who was admitted 02/27/2020 with sickle cell anemia and sickle cell crisis pain. Patient is seen on afternoon rounds. She is found resting in bed, comfortably, on supplemental oxygen by nasal cannula; she is maintaining appropriate oxygen saturations on when on room air. She states that she takes the O2 off to ambulate to the restroom; no increased dyspnea when on room air. She states daniel t her pain is improved since being started on the Dilaudid TRESTLEMAN. She reports generalized itching; improved w/ benadryl. Does complain of some dysuria; concerned about possible UTI. She further denies fever, chills, chest pain, palpitations, dyspnea, abdominal pain, nausea vomiting and diarrhea. She has no other questions or concerns at this time. No concerns per nursing. Reason For Visit: SICKLE CELL PAIN Physical Exam Vital Signs: Temp Pulse Resp BP Pulse Ox 98.0 F 74 20 122/74 99 02/28/20 08:00 02/28/20 08:00 02/28/20 09:00 02/28/20 08:00 02/28/20 09:00 Intake & Output 02/27/20 02/28/20 02/29/20 06:59 06:59 06:59 Intake Total 1050 1965 1312 Output Total 300 Balance 1050 1665 1312 Weight 73.6 kg 73.6 kg General appearance: PRESENT: no acute distress, obese, well-developed, well- nourished Head exam: PRESENT: atraumatic, normocephalic Eye exam: PRESENT: conjunctiva pink, EOMI, PERRLA. ABSENT: scleral icterus Mouth exam: PRESENT: moist, tongue midline Respiratory exam: PRESENT: clear to auscultation samaria, symmetrical, unlabored. ABSENT: rales, rhonchi, wheezes Cardiovascular exam: PRESENT: RRR. ABSENT: diastolic murmur, rubs, systolic murmur Pulses: PRESENT: normal dorsalis pedis pul Vascular exam: PRESENT: normal capillary refill Extremities exam: PRESENT: full ROM. ABSENT: calf tenderness, clubbing, pedal edema Musculoskeletal exam: PRESENT: ambulatory Neurological exam: PRESENT: alert, awake, oriented to person, oriented to place, oriented to time, oriented to situation, CN II-XII grossly intact. ABSENT: motor sensory deficit Psychiatric exam: PRESENT: appropriate affect, normal mood. ABSENT: homicidal ideation, suicidal ideation Skin exam: PRESENT: dry, intact, warm. ABSENT: cyanosis, rash Results Laboratory Results: 02/28/20 06:44 02/28/20 06:44 02/28/20 02/28/20 02/28/20 06:44 06:44 12:00 WBC 13.8 H RBC 2.55 L Hgb 9.7 L Hct 26.7 L MCV 105 H MCH 38.1 H MCHC 36.3 H RDW 27.0 H Plt Count 391 Sodium 140.5 Potassium 4.2 Chloride 108 H Carbon Dioxide 21 L Anion Gap 12 BUN 4 L Creatinine 0.49 L Est GFR ( Amer) > 60 Glucose 76 Calcium 9.0 Urine Color YELLOW Urine Appearance CLEAR Urine pH 5.0 Ur Specific [place] 1.010 Urine Protein NEGATIVE Urine Glucose (UA) NEGATIVE Urine Ketones NEGATIVE Urine Blood NEGATIVE Urine Nitrite NEGATIVE Ur Leukocyte Esterase LARGE H Urine WBC (Auto) 8 Urine RBC (Auto) 2 Assessment and Plan - Diagnosis (1) Sickle cell pain crisis Is this a current diagnosis for this admission?: Yes Plan: Patient has been admitted. She is provided supplemental oxygen for comfort and maintain saturations greater than 92%. We will continue gentle IV fluids. Have consulted Hematology; primary plan per them. Patient has been placed on Dilaudid TRESTLEMAN. 1mg/hr basal w/ 0.5 mg q20 min prn. Benadryl prn itching. Resume home dose folic acid and multivitamin. Continue nonpharmacological interventions for comfort. (2) Sickle cell anemia Qualifiers: Sickle-cell associated disorders: without crisis Qualified Code(s): D57.1 - Sickle-cell disease without crisis Is this a current diagnosis for this admission?: Yes Plan: Hgb 9.7-> 9.7; at baseline. Will follow CBC M, W, F and transfuse for <7. Primary plan per Hematology. (3) Dysuria Is this a current diagnosis for this admission?: Yes Plan: Urinalysis is negative UTI x2. Urine cultures growing <100k colonies. Leukpocytosis decreased. Afebrile. Did receive Rocephin x1 per ED provider. Will hold on additional antibiotics for now. Encouraged good jann-care/hygeine. (4) Leukocytosis Qualifiers: Leukocytosis type: unspecified Qualified Code(s): D72.829 - Elevated white blood cell count, unspecified Is this a current diagnosis for this admission?: Yes Plan: Improved; 18.2-> 13.8 Unclear etiology. Possibly acute inflammatory r/t sickle cell crisis pain. Urinalysis is negative UTI. Urine cultures growing <100k colonies. Some urinary symptoms today. She did report diarrhea to the ED provided; none since arrival. Will obtain stool for WBCs and Culture. No indications for antibiotics at this time. (5) Diarrhea Qualifiers: Diarrhea type: unspecified type Qualified Code(s): R19.7 - Diarrhea, unspecified Is this a current diagnosis for this admission?: Yes Plan: Resolved; no further episodes. (6) Tobacco abuse Is this a current diagnosis for this admission?: Yes Plan: Nicotine cessation encouraged. Nicotine replacement therapies provided. - Time Time Spent with patient: 25-34 minutes Anticipated Discharge Disposition: Home, Self Care Anticipated Discharge Timeframe: unknown
[2020-02-28] MEDS: CITALOPRAM HYDROBROMIDE 20 MG TABLET PO SCH (18:00)
[2020-02-28] MEDS: BUSPIRONE HCL 10 MG TABLET PO SCH (18:00)
[2020-02-28] MEDS: TRAZODONE HCL 50 MG TABLET PO SCH (22:01)
[2020-02-29] MEDS: DIPHENHYDRAMINE HCL 50 MG/ML VIAL IV PRN ×5 (02:51→21:10)
[2020-02-29] MEDS: HEPARIN SOD (PORCINE) 5,000 UNIT/ML 1 ML VIAL SUBCUT SCH ×3 (05:34→21:11)
[2020-02-29] MEDS: NORMAL SALINE 1000 ML 1,000 ML IV PRN ×3 (10:41→21:11)
[2020-02-29] MEDS: HYDROMORPHONE HCL 30 MG/60 ML RTUINJ IV PRN (10:45)
[2020-02-29] MEDS: CITALOPRAM HYDROBROMIDE 20 MG TABLET PO SCH ×2 (10:54→17:35)
[2020-02-29] MEDS: FOLIC ACID 1 MG TABLET PO SCH (10:54)
[2020-02-29] MEDS: BUSPIRONE HCL 10 MG TABLET PO SCH ×2 (10:54→17:36)
[2020-02-29] MEDS: CHOLECALCIFEROL (D3) 1,000 UNIT (25 MCG) TABLET PO SCH (10:54)
[2020-02-29 11:40] LABS: WHITE BLOOD COUNT 13.8 10^3/uL (4.0-10.5)
--- NOTE | 2020-02-29 17:03 | PDOC PROGRESS REPORT ---
Subjective Date:: 02/29/20 Subjective:: The patient is a 25-year-old female with a past medical history significant for sickle cell disease, depression, DVT to the right upper extremity status post port placement, and obesity who was admitted 02/27/2020 with sickle cell anemia and sickle cell crisis pain. Patient is seen on afternoon rounds. She is found ambulating in her room, on room air. She states that she takes the O2 off to ambulate to the restroom; no increased dyspnea. 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 She reports generalized itching; improved w/ benadryl. No further urinary symptoms. She further denies fever, chills, chest pain, palpitations, dyspnea, abdominal pain, nausea vomiting and diarrhea. She has no other questions or concerns at this time. No concerns per nursing. Reason For Visit: SICKLE CELL PAIN CRISIS Physical Exam Vital Signs: Temp Pulse Resp BP Pulse Ox 98.2 F 81 18 122/72 100 02/29/20 16:00 02/29/20 16:00 02/29/20 16:00 02/29/20 16:00 02/29/20 16:00 Intake & Output 02/28/20 02/29/20 03/01/20 06:59 06:59 06:59 Intake Total 1965 2852 1350 Output Total 300 1600 800 Balance 1665 1252 550 Weight 73.6 kg 76 kg General appearance: PRESENT: no acute distress, cooperative, obese, well- developed, well-nourished Head exam: PRESENT: atraumatic, normocephalic Eye exam: PRESENT: conjunctiva pink, EOMI, PERRLA. ABSENT: scleral icterus Mouth exam: PRESENT: moist, tongue midline Respiratory exam: PRESENT: clear to auscultation samaria, symmetrical, unlabored, other - room air. ABSENT: rales, rhonchi, wheezes Cardiovascular exam: PRESENT: RRR. ABSENT: diastolic murmur, rubs, systolic murmur Extremities exam: PRESENT: full ROM. ABSENT: calf tenderness, clubbing, pedal edema Musculoskeletal exam: PRESENT: ambulatory Neurological exam: PRESENT: alert, awake, oriented to person, oriented to place, oriented to time, oriented to situation, CN II-XII grossly intact. ABSENT: motor sensory deficit Psychiatric exam: PRESENT: appropriate affect, normal mood. ABSENT: homicidal ideation, suicidal ideation Skin exam: PRESENT: dry, intact, warm. ABSENT: cyanosis, rash Results Laboratory Results: 02/28/20 06:44 02/28/20 06:44 02/28/20 06:44 WBC 13.8 H 02/27/20 04:30 Clean Catch Midstream Urine Culture - Final Staphylococcus Haemolyticus Assessment and Plan - Diagnosis (1) Sickle cell pain crisis Is this a current diagnosis for this admission?: Yes Plan: Patient has been admitted to the medical floor. She is provided supplemental oxygen for comfort and maintain saturations greater than 92%. We will continue gentle IV fluids. Have consulted Hematology; primary plan per them. Patient has been placed on Dilaudid [employer]ICE PRESIDENT [employer] FINANCE. 1mg/hr basal w/ 0.5 mg q20 min prn. Benadryl prn itching. Continue home dose Hydroxyurea, folic acid, and multivitamin. Continue nonpharmacological interventions for comfort. (2) Sickle cell anemia Qualifiers: Sickle-cell associated disorders: without crisis Qualified Code(s): D57.1 - Sickle-cell disease without crisis Is this a current diagnosis for this admission?: Yes Plan: Hgb 9.7-> 9.7; at baseline. Will follow CBC M, W, F and transfuse for <7. Primary plan per Hematology. (3) Dysuria Is this a current diagnosis for this admission?: Yes Plan: Resolved Urinalysis is negative UTI x2. Urine culture <100k colonies staph haemolyticus. Leukocytosis decreased. Afebrile. Did receive Rocephin x1 per ED provider. Will hold on additional antibiotics for now. Encouraged good jann-care/hygeine. (4) Leukocytosis Qualifiers: Leukocytosis type: unspecified Qualified Code(s): D72.829 - Elevated white blood cell count, unspecified Is this a current diagnosis for this admission?: Yes Plan: Improved; 18.2-> 13.8 Unclear etiology. Possibly acute inflammatory r/t sickle cell crisis pain. Urinalysis is negative UTI. Urine cultures growing <100k colonies. Some urinary symptoms today. She did report diarrhea to the ED provided; none since arrival. Will obtain stool for WBCs and Culture. No indications for antibiotics at this time. (5) Diarrhea Qualifiers: Diarrhea type: unspecified type Qualified Code(s): R19.7 - Diarrhea, unspecified Is this a current diagnosis for this admission?: Yes Plan: Resolved; no further episodes. (6) Tobacco abuse Is this a current diagnosis for this admission?: Yes Plan: Nicotine cessation encouraged. Nicotine replacement therapies provided. - Time Time Spent with patient: 15-24 minutes Medications reviewed and adjusted accordingly: Yes Anticipated Discharge Disposition: Home, Self Care Anticipated Discharge Timeframe: unknown
[2020-02-29] MEDS: HYDROXYUREA 500 MG CAPSULE PO SCH (21:11)
[2020-02-29] MEDS: TRAZODONE HCL 50 MG TABLET PO SCH (21:11)
[2020-03-01] MEDS: DIPHENHYDRAMINE HCL 50 MG/ML VIAL IV PRN ×6 (01:32→23:10)
[2020-03-01] MEDS: HYDROMORPHONE HCL 30 MG/60 ML RTUINJ IV PRN ×2 (05:51→21:35)
[2020-03-01] MEDS: HEPARIN SOD (PORCINE) 5,000 UNIT/ML 1 ML VIAL SUBCUT SCH ×3 (07:52→22:57)
[2020-03-01] MEDS ORDERED: HYDROXYUREA 1000 MG PO SCH (08:00)
--- NOTE | 2020-03-01 08:45 | PDOC PROGRESS REPORT ---
Subjective Date:: 03/01/20 Subjective:: Seems controlled w/ CARD LACER JACQUARD pump. Still w/ pain this am though Reason For Visit: SICKLE CELL PAIN CRISIS Physical Exam Vital Signs: Temp Pulse Resp BP Pulse Ox 97.7 F 92 18 121/68 97 03/01/20 07:41 03/01/20 01:33 03/01/20 07:00 03/01/20 01:33 03/01/20 07:00 Intake & Output 02/29/20 03/01/20 03/02/20 06:59 06:59 06:59 Intake Total 2852 2750 Output Total 1600 800 Balance 1252 1950 Weight 76 kg 76 kg General appearance: PRESENT: no acute distress, well-developed, well-nourished Head exam: PRESENT: atraumatic, normocephalic Eye exam: PRESENT: conjunctiva pink, EOMI, PERRLA. ABSENT: scleral icterus Ear exam: PRESENT: normal external ear exam Mouth exam: PRESENT: moist, tongue midline Neck exam: ABSENT: carotid bruit, JVD, lymphadenopathy, thyromegaly Respiratory exam: PRESENT: clear to auscultation samaria. ABSENT: rales, rhonchi, wheezes Cardiovascular exam: PRESENT: RRR. ABSENT: diastolic murmur, rubs, systolic murmur Pulses: PRESENT: normal dorsalis pedis pul Vascular exam: PRESENT: normal capillary refill GI/Abdominal exam: PRESENT: normal bowel sounds, soft. ABSENT: distended, guarding, mass, organolmegaly, rebound, tenderness Rectal exam: PRESENT: deferred Extremities exam: PRESENT: full ROM. ABSENT: calf tenderness, clubbing, pedal edema Neurological exam: PRESENT: alert, awake, oriented to person, oriented to place, oriented to time, oriented to situation, CN II-XII grossly intact. ABSENT: motor sensory deficit Psychiatric exam: PRESENT: appropriate affect, normal mood. ABSENT: homicidal ideation, suicidal ideation Skin exam: PRESENT: dry, intact, warm. ABSENT: cyanosis, rash Results Laboratory Results: 02/28/20 06:44 02/28/20 06:44 02/28/20 06:44 WBC 13.8 H 02/27/20 04:30 Clean Catch Midstream Urine Culture - Final Staphylococcus Haemolyticus Assessment & Plan - Diagnosis (1) Sickle cell pain crisis Is this a current diagnosis for this admission?: Yes Plan: Cont current pain regimen and supportive care. 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 - Time Time Spent with patient: 35 or more minutes
[2020-03-01] MEDS: NORMAL SALINE 1000 ML 1,000 ML IV PRN ×2 (09:05→18:21)
[2020-03-01] MEDS: FOLIC ACID 1 MG TABLET PO SCH (09:12)
[2020-03-01] MEDS: HYDROXYUREA 500 MG CAPSULE PO SCH ×2 (09:13→21:35)
[2020-03-01] MEDS: BUSPIRONE HCL 10 MG TABLET PO SCH ×2 (09:13→17:27)
[2020-03-01] MEDS: CITALOPRAM HYDROBROMIDE 20 MG TABLET PO SCH ×2 (09:13→17:27)
[2020-03-01] MEDS: CHOLECALCIFEROL (D3) 1,000 UNIT (25 MCG) TABLET PO SCH (09:13)
[2020-03-01 15:48] LABS: ANION GAP 8 (5-19); BLOOD UREA NITROGEN 9 mg/dL (7-20); CALCIUM 9.5 mg/dL (8.4-10.2); CARBON DIOXIDE 28 mmol/L (22-30); CHLORIDE 106 mmol/L (98-107); GLUCOSE 95 mg/dL (75-110); POTASSIUM 4.7 mmol/L (3.6-5.0)
--- NOTE | 2020-03-01 18:13 | PDOC PROGRESS REPORT ---
Subjective Date:: 03/01/20 Subjective:: The patient is a 25-year-old female with a past medical history significant for sickle cell disease, depression, DVT to the right upper extremity status post port placement, and obesity who was admitted 02/27/2020 with sickle cell anemia and sickle cell crisis pain. Patient is seen on afternoon rounds. She was found sleeping but woke easily when I said her name. She immediately pushed the Dilaudid EXTERMINATOR TERMITE button and fell back to sleep midsentence. I did not make further attempts to wake her. She does appear to be comfortable and is not noted to be in any acute distress at this time. No concerns per nursing. Reason For Visit: SICKLE CELL PAIN CRISIS Physical Exam Vital Signs: Temp Pulse Resp BP Pulse Ox 98.1 F 92 15 126/69 H 95 03/01/20 16:00 03/01/20 16:00 03/01/20 16:00 03/01/20 16:00 03/01/20 16:00 Intake & Output 02/29/20 03/01/20 03/02/20 06:59 06:59 06:59 Intake Total 2852 2750 1480 Output Total 1600 800 Balance 1252 1950 1480 Weight 76 kg 76 kg General appearance: PRESENT: no acute distress, obese, well-developed, well- nourished Head exam: PRESENT: atraumatic, normocephalic Eye exam: PRESENT: conjunctiva pink, EOMI, PERRLA. ABSENT: scleral icterus Mouth exam: PRESENT: moist, tongue midline Respiratory exam: PRESENT: clear to auscultation samaria, symmetrical, unlabored, other - Room air. ABSENT: rales, rhonchi, wheezes Cardiovascular exam: PRESENT: RRR. ABSENT: diastolic murmur, rubs, systolic murmur Vascular exam: PRESENT: normal capillary refill Extremities exam: PRESENT: full ROM. ABSENT: calf tenderness, clubbing, pedal edema Neurological exam: PRESENT: alert, awake, oriented to person, oriented to place, oriented to time, oriented to situation, CN II-XII grossly intact. ABSENT: motor sensory deficit Psychiatric exam: PRESENT: appropriate affect, normal mood. ABSENT: homicidal ideation, suicidal ideation Skin exam: PRESENT: dry, intact, warm. ABSENT: cyanosis, rash Results Laboratory Results: 02/28/20 06:44 03/01/20 15:17 03/01/20 15:17 Sodium 141.6 Potassium 4.7 Chloride 106 Carbon Dioxide 28 Anion Gap 8 BUN 9 Creatinine 0.53 Est GFR ( Amer) > 60 Glucose 95 Calcium 9.5 Assessment and Plan - Diagnosis (1) Sickle cell pain crisis Is this a current diagnosis for this admission?: Yes Plan: Patient has been admitted to the medical floor. She is provided supplemental oxygen for comfort and maintain saturations greater than 92%. We will continue gentle IV fluids. Have consulted Hematology; primary plan per them. Patient has been placed on Dilaudid EXTERMINATOR TERMITE. 1mg/hr basal w/ 0.5 mg q20 min prn. Benadryl prn itching. Continue home dose Hydroxyurea, folic acid, and multivitamin. Continue nonpharmacological interventions for comfort. (2) Sickle cell anemia Qualifiers: Sickle-cell associated disorders: without crisis Qualified Code(s): D57.1 - Sickle-cell disease without crisis Is this a current diagnosis for this admission?: Yes Plan: Hgb 9.7-> 9.7; at baseline. Will follow CBC M, W, F and transfuse for <7. Primary plan per Hematology. (3) Dysuria Is this a current diagnosis for this admission?: Yes Plan: Resolved Urinalysis is negative UTI x2. Urine culture <100k colonies staph haemolyticus. Leukocytosis decreased. Afebrile. Did receive Rocephin x1 per ED provider. Will hold on additional antibiotics for now. Encouraged good jann-care/hygeine. (4) Leukocytosis Qualifiers: Leukocytosis type: unspecified Qualified Code(s): D72.829 - Elevated white blood cell count, unspecified Is this a current diagnosis for this admission?: Yes Plan: Improved; 18.2-> 13.8 Unclear etiology. Possibly acute inflammatory r/t sickle cell crisis pain. Urinalysis is negative UTI. Urine cultures growing <100k colonies. Some urinary symptoms today. She did report diarrhea to the ED provided; none since arrival. Will obtain stool for WBCs and Culture. No indications for antibiotics at this time. (5) Diarrhea Qualifiers: Diarrhea type: unspecified type Qualified Code(s): R19.7 - Diarrhea, unspecified Is this a current diagnosis for this admission?: Yes Plan: Resolved; no further episodes. (6) Tobacco abuse Is this a current diagnosis for this admission?: Yes Plan: Nicotine cessation encouraged. Nicotine replacement therapies provided. - Plan Summary Summary: No changes; primary plan per hematology. - Time Time Spent with patient: Less than 15 minutes Medications reviewed and adjusted accordingly: Yes Anticipated Discharge Disposition: Home, Self Care Anticipated Discharge Timeframe: TBD
[2020-03-01] MEDS: TRAZODONE HCL 50 MG TABLET PO SCH (21:35)
[2020-03-02] MEDS: NORMAL SALINE 1000 ML 1,000 ML IV PRN ×2 (04:24→15:45)
[2020-03-02] MEDS: DIPHENHYDRAMINE HCL 50 MG/ML VIAL IV PRN ×5 (04:24→22:26)
[2020-03-02] MEDS: HEPARIN SOD (PORCINE) 5,000 UNIT/ML 1 ML VIAL SUBCUT SCH ×3 (05:21→22:27)
--- NOTE | 2020-03-02 08:45 | PDOC PROGRESS REPORT ---
Subjective Date:: 03/02/20 Subjective:: Yesterday pain became very severe and I was called in the evening to change pain medication, we went up on her Dilaudid SPRAY MIXER, also the port stopped giving blood so I have given orders for Cathflo, and changing blood draws to every third day as they have been stable. Reason For Visit: SICKLE CELL PAIN CRISIS Physical Exam Vital Signs: Temp Pulse Resp BP Pulse Ox 98.0 F 90 18 122/61 98 03/02/20 07:48 03/02/20 04:39 03/02/20 06:22 03/02/20 04:39 03/02/20 06:22 Intake & Output 03/01/20 03/02/20 03/03/20 06:59 06:59 06:59 Intake Total 2750 4267 Output Total 800 Balance 1950 4267 Weight 76 kg 75.9 kg General appearance: PRESENT: no acute distress, well-developed, well-nourished Head exam: PRESENT: atraumatic, normocephalic Eye exam: PRESENT: conjunctiva pink, EOMI, PERRLA. ABSENT: scleral icterus Ear exam: PRESENT: normal external ear exam Mouth exam: PRESENT: moist, tongue midline Neck exam: ABSENT: carotid bruit, JVD, lymphadenopathy, thyromegaly Respiratory exam: PRESENT: clear to auscultation samaria. ABSENT: rales, rhonchi, wheezes Cardiovascular exam: PRESENT: RRR. ABSENT: diastolic murmur, rubs, systolic murmur Pulses: PRESENT: normal dorsalis pedis pul Vascular exam: PRESENT: normal capillary refill GI/Abdominal exam: PRESENT: normal bowel sounds, soft. ABSENT: distended, guarding, mass, organolmegaly, rebound, tenderness Rectal exam: PRESENT: deferred Extremities exam: PRESENT: full ROM. ABSENT: calf tenderness, clubbing, pedal edema Neurological exam: PRESENT: alert, awake, oriented to person, oriented to place, oriented to time, oriented to situation, CN II-XII grossly intact. ABSENT: motor sensory deficit Psychiatric exam: PRESENT: appropriate affect, normal mood. ABSENT: homicidal ideation, suicidal ideation Skin exam: PRESENT: dry, intact, warm. ABSENT: cyanosis, rash Results Laboratory Results: 02/28/20 06:44 03/01/20 15:17 03/01/20 15:17 Sodium 141.6 Potassium 4.7 Chloride 106 Carbon Dioxide 28 Anion Gap 8 BUN 9 Creatinine 0.53 Est GFR ( Amer) > 60 Glucose 95 Calcium 9.5 Assessment & Plan - Diagnosis (1) Sickle cell pain crisis Is this a current diagnosis for this admission?: Yes Plan: Still pretty severe, probably will need 3-4 more days then. Continue with current pain control and optimize as needed. 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 - Time Time Spent with patient: 35 or more minutes
[2020-03-02] MEDS ORDERED: ALTEPLASE INJ 2 MG VIAL (CATH CLEARANCE) IV ONE (09:30)
[2020-03-02] MEDS: BUSPIRONE HCL 10 MG TABLET PO SCH ×2 (09:32→17:24)
[2020-03-02] MEDS: CHOLECALCIFEROL (D3) 1,000 UNIT (25 MCG) TABLET PO SCH (09:32)
[2020-03-02] MEDS: FOLIC ACID 1 MG TABLET PO SCH (09:32)
[2020-03-02] MEDS: CITALOPRAM HYDROBROMIDE 20 MG TABLET PO SCH ×2 (09:32→17:24)
[2020-03-02] MEDS: HYDROXYUREA 500 MG CAPSULE PO SCH ×2 (09:32→22:27)
[2020-03-02] MEDS: HYDROMORPHONE HCL 30 MG/60 ML RTUINJ IV PRN (13:28)
--- NOTE | 2020-03-02 16:17 | PDOC PROGRESS REPORT ---
Subjective Date:: 03/02/20 Subjective:: The patient is a 25-year-old female with a past medical history significant for sickle cell disease, depression, DVT to the right upper extremity status post port placement, and obesity who was admitted 02/27/2020 with sickle cell anemia and sickle cell crisis pain. Patient is seen on afternoon rounds. She was found resting bed, comfortably, on room air. She states her pain is worse than yesterday. Feels the increased dilaudid dose is helpful, but tyra that her back pain has continued to worsen. Otherwise, she denies fever, chills, chest pain, dyspnea, abd pain, nausea and vomiting. No further episodes of dysuria. She has no other questions or concerns. No concerns per nursing. Reason For Visit: SICKLE CELL PAIN CRISIS Physical Exam Vital Signs: Temp Pulse Resp BP Pulse Ox 97.8 F 101 H 14 120/63 93 03/02/20 15:52 03/02/20 15:52 03/02/20 15:52 03/02/20 15:52 03/02/20 15:52 Intake & Output 03/01/20 03/02/20 03/03/20 06:59 06:59 06:59 Intake Total 2750 4267 1400 Output Total 800 Balance 1950 4267 1400 Weight 76 kg 75.9 kg Results Laboratory Results: 02/28/20 06:44 03/01/20 15:17 Assessment and Plan - Diagnosis (1) Sickle cell pain crisis Is this a current diagnosis for this admission?: Yes Plan: Have consulted Hematology; primary plan per them. Patient has been admitted to the medical floor. She is provided supplemental oxygen for comfort and maintain saturations greater than 92%. Continue gentle IV fluids. 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 Continue home dose Hydroxyurea, folic acid, and multivitamin. Continue nonpharmacological interventions for comfort. (2) Sickle cell anemia Qualifiers: Sickle-cell associated disorders: without crisis Qualified Code(s): D57.1 - Sickle-cell disease without crisis Is this a current diagnosis for this admission?: Yes Plan: Hgb 9.7-> 9.7; at baseline. Primary plan per Hematology. (3) Leukocytosis Qualifiers: Leukocytosis type: unspecified Qualified Code(s): D72.829 - Elevated white blood cell count, unspecified Is this a current diagnosis for this admission?: Yes Plan: Improved; 18.2-> 13.8 Unclear etiology. Possibly acute inflammatory r/t sickle cell crisis pain. Urinalysis is negative UTI. Urine cultures growing <100k colonies. Some urinary symptoms today. She did report diarrhea to the ED provided; none since arrival. Will obtain stool for WBCs and Culture. No indications for antibiotics at this time. (4) Tobacco abuse Is this a current diagnosis for this admission?: Yes Plan: Nicotine cessation encouraged. Nicotine replacement therapies provided. (5) Dysuria Is this a current diagnosis for this admission?: Yes Plan: Resolved Urinalysis is negative UTI x2. Urine culture <100k colonies staph haemolyticus. Leukocytosis decreased. Afebrile. Did receive Rocephin x1 per ED provider. Will hold on additional antibiotics for now. Encouraged good jann-care/hygeine. (6) Diarrhea Qualifiers: Diarrhea type: unspecified type Qualified Code(s): R19.7 - Diarrhea, unspecified Is this a current diagnosis for this admission?: Yes Plan: Resolved; no further episodes. - Plan Summary Summary: No changes; primary plan per hematology. - Time Time Spent with patient: Less than 15 minutes Anticipated Discharge Disposition: Home, Self Care Anticipated Discharge Timeframe: TBD
[2020-03-02] MEDS: TRAZODONE HCL 50 MG TABLET PO SCH (22:26)
[2020-03-03] MEDS: NORMAL SALINE 1000 ML 1,000 ML IV PRN ×3 (02:26→22:04)
[2020-03-03] MEDS: HYDROMORPHONE HCL 30 MG/60 ML RTUINJ IV PRN ×2 (02:26→17:51)
[2020-03-03] MEDS: HEPARIN SOD (PORCINE) 5,000 UNIT/ML 1 ML VIAL SUBCUT SCH ×3 (05:13→22:34)
[2020-03-03] MEDS: DIPHENHYDRAMINE HCL 50 MG/ML VIAL IV PRN ×5 (06:52→22:46)
[2020-03-03 08:13] LABS: ABSOLUTE RETICS # 0.219 10^6/uL (0.028-0.122); HEMATOCRIT 22.8 % (36.0-47.0); HEMOGLOBIN 8.2 g/dL (12.0-15.5); MEAN CORPUSCULAR HEMOGLOBIN 37.8 pg (27.0-33.4); MEAN CORPUSCULAR HGB CONC 36.1 g/dL (32.0-36.0); MEAN CORPUSCULAR VOLUME 105 fl (80-97); PLATELET COUNT 348 10^3/uL (150-450); RED BLOOD COUNT 2.18 10^6/uL (3.72-5.28); RED CELL DISTRIBUTION WIDTH 25.2 % (11.5-14.0); RETICULOCYTE COUNT (AUTO) 10.02 % (0.66-2.85); WHITE BLOOD COUNT 11.5 10^3/uL (4.0-10.5)
[2020-03-03 08:30] LABS: ABSOLUTE LYMPHOCYTES# (MANUAL) 3.5 10^3/uL (0.5-4.7); ABSOLUTE MONOCYTES # (MANUAL) 0.2 10^3/uL (0.1-1.4); BASOPHILS % (MANUAL) 0 % (0-2); EOSINOPHILS % (MANUAL) 4 % (0-6); LYMPHOCYTES % (MANUAL) 30 % (13-45); MONOCYTES % (MANUAL) 2 % (3-13); NUCLEATED RED BLOOD CELLS 12 /100 WBC (0); SEGMENTED NEUTROPHILS % (MAN) 64 % (42-78); TOTAL CELLS COUNTED 100
[2020-03-03 08:33] LABS: ANISOCYTOSIS 3+; POLYCHROMASIA 2+
[2020-03-03 08:34] LABS: PLATELET CLUMPS PRESENT; PLATELET COMMENT ADEQUATE
[2020-03-03 08:35] LABS: OVALOCYTES 2+; PAPPENHEIMER BODIES PRESENT; POIKILOCYTOSIS 2+
--- NOTE | 2020-03-03 08:35 | RADIOLOGY REPORT (SQ) ---
EXAM DESCRIPTION: CHEST SINGLE VIEW IMAGES COMPLETED DATE/TIME: 03/03/2020 8:10 am REASON FOR STUDY: hypoxia, tachycardia COMPARISON: AP view of the chest from 02/20/2020. EXAM PARAMETERS: NUMBER OF VIEWS: One view. TECHNIQUE: An AP view of the chest was obtained. RADIATION DOSE: NA LIMITATIONS: None. FINDINGS: LUNGS AND PLEURA: No consolidation, pleural effusion or pneumothorax. MEDIASTINUM AND HILAR STRUCTURES: No mediastinal or hilar contour abnormality. HEART AND VASCULAR STRUCTURES: The cardiac silhouette and pulmonary vasculature are within normal snow its. BONES: No acute findings. HARDWARE: The tip of the right-sided chest port projects within the SVC. OTHER: No other finding. IMPRESSION: No acute cardiopulmonary process. TECHNICAL DOCUMENTATION: JOB ID: [id number] 2010 [employer] All Rights Reserved Reading location - IP/workstation name: [email or web address]
[2020-03-03 08:36] LABS: PLATELET LARGE PRESENT
[2020-03-03 08:37] LABS: TEAR DROP CELLS 1+
--- NOTE | 2020-03-03 08:37 | PDOC PROGRESS REPORT ---
Subjective Date:: 03/03/20 Subjective:: IN pain after CXR this am but was doing better yesterday afternoon. Hypoxic this am but nursing notes the 02 was off at that time. CXR looks clear, labs pending. Reason For Visit: SICKLE CELL PAIN CRISIS Physical Exam Vital Signs: Temp Pulse Resp BP Pulse Ox 98.3 F 92 15 95/58 L 98 03/03/20 08:11 03/03/20 08:11 03/03/20 08:11 03/03/20 08:11 03/03/20 08:11 Intake & Output 03/02/20 03/03/20 03/04/20 06:59 06:59 06:59 Intake Total 4267 3350 Balance 4267 3350 Weight 75.9 kg 76 kg General appearance: PRESENT: no acute distress, well-developed, well-nourished Head exam: PRESENT: atraumatic, normocephalic Eye exam: PRESENT: conjunctiva pink, EOMI, PERRLA. ABSENT: scleral icterus Ear exam: PRESENT: normal external ear exam Mouth exam: PRESENT: moist, tongue midline Neck exam: ABSENT: carotid bruit, JVD, lymphadenopathy, thyromegaly Respiratory exam: PRESENT: clear to auscultation samaria. ABSENT: rales, rhonchi, wheezes Cardiovascular exam: PRESENT: RRR. ABSENT: diastolic murmur, rubs, systolic murmur Pulses: PRESENT: normal dorsalis pedis pul Vascular exam: PRESENT: normal capillary refill GI/Abdominal exam: PRESENT: normal bowel sounds, soft. ABSENT: distended, guarding, mass, organolmegaly, rebound, tenderness Rectal exam: PRESENT: deferred Extremities exam: PRESENT: full ROM. ABSENT: calf tenderness, clubbing, pedal edema Neurological exam: PRESENT: alert, awake, oriented to person, oriented to place, oriented to time, oriented to situation, CN II-XII grossly intact. ABSENT: motor sensory deficit Psychiatric exam: PRESENT: appropriate affect, normal mood. ABSENT: homicidal ideation, suicidal ideation Skin exam: PRESENT: dry, intact, warm. ABSENT: cyanosis, rash Results Laboratory Results: 03/03/20 07:54 Seg Neutrophils % Not Reportable Impressions: Chest X-Ray 03/03/20 00:00 IMPRESSION: No acute cardiopulmonary process. Assessment & Plan - Diagnosis (1) Sickle cell pain crisis Is this a current diagnosis for this admission?: Yes Plan: Con't current regimen. 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
[2020-03-03 08:38] LABS: TARGET CELLS 1+
[2020-03-03 08:41] LABS: SCHISTOCYTES SLIGHT; SICKLE RED CELLS SLIGHT
[2020-03-03 08:59] LABS: BLOOD UREA NITROGEN 9 mg/dL (7-20); GLUCOSE 87 mg/dL (75-110); POTASSIUM 4.4 mmol/L (3.6-5.0)
[2020-03-03 09:04] LABS: CARBON DIOXIDE 29 mmol/L (22-30); CHLORIDE 107 mmol/L (98-107)
[2020-03-03 09:11] LABS: ANION GAP 4 (5-19)
[2020-03-03] MEDS: CITALOPRAM HYDROBROMIDE 20 MG TABLET PO SCH ×2 (09:40→18:38)
[2020-03-03] MEDS: BUSPIRONE HCL 10 MG TABLET PO SCH ×2 (09:40→18:38)
[2020-03-03] MEDS: HYDROXYUREA 500 MG CAPSULE PO SCH ×2 (09:40→22:00)
[2020-03-03] MEDS: CHOLECALCIFEROL (D3) 1,000 UNIT (25 MCG) TABLET PO SCH (09:41)
[2020-03-03] MEDS: FOLIC ACID 1 MG TABLET PO SCH (09:41)
--- NOTE | 2020-03-03 15:15 | PDOC PROGRESS REPORT ---
Subjective Date:: 03/03/20 Subjective:: The patient is a 25-year-old female with a past medical history significant for sickle cell disease, depression, DVT to the right upper extremity status post port placement, and obesity who was admitted 02/27/2020 with sickle cell anemia and sickle cell crisis pain. Patient is seen on afternoon rounds. She was found sitting up to the edge of the bed, comfortably, on room air. She states her pain is slightly better than yesterday; she does appear to be more comfortable. She denies fever, chills, chest pain, dyspnea, abd pain, nausea and vomiting. No further episodes of dysuria. She has no other questions or concerns. No concerns per nursing. Reason For Visit: SICKLE CELL PAIN CRISIS Physical Exam Vital Signs: Temp Pulse Resp BP Pulse Ox 97.8 F 99 18 119/77 96 03/03/20 11:53 03/03/20 11:53 03/03/20 13:00 03/03/20 11:53 03/03/20 13:00 Intake & Output 03/02/20 03/03/20 03/04/20 06:59 06:59 06:59 Intake Total 4267 3350 1312 Balance 4267 3350 1312 Weight 75.9 kg 76 kg General appearance: PRESENT: no acute distress, obese, well-developed, well- nourished Head exam: PRESENT: atraumatic, normocephalic Eye exam: PRESENT: conjunctiva pink, EOMI, PERRLA. ABSENT: scleral icterus Mouth exam: PRESENT: moist, tongue midline Respiratory exam: PRESENT: clear to auscultation samaria, symmetrical, unlabored, other - room air. ABSENT: rales, rhonchi, wheezes Cardiovascular exam: PRESENT: RRR. ABSENT: diastolic murmur, rubs, systolic murmur Pulses: PRESENT: normal dorsalis pedis pul Vascular exam: PRESENT: normal capillary refill GI/Abdominal exam: PRESENT: normal bowel sounds, soft. ABSENT: distended, guarding, mass, organolmegaly, rebound, tenderness Rectal exam: PRESENT: deferred Extremities exam: PRESENT: full ROM. ABSENT: calf tenderness, clubbing, pedal edema Neurological exam: PRESENT: alert, awake, oriented to person, oriented to place, oriented to time, oriented to situation, CN II-XII grossly intact. ABSENT: motor sensory deficit Psychiatric exam: PRESENT: appropriate affect, normal mood. ABSENT: homicidal ideation, suicidal ideation Skin exam: PRESENT: dry, intact, warm. ABSENT: cyanosis, rash Results Laboratory Results: 03/03/20 07:54 03/03/20 07:54 03/03/20 03/03/20 07:54 07:54 WBC 11.5 H RBC 2.18 L Hgb 8.2 L Hct 22.8 L MCV 105 H MCH 37.8 H MCHC 36.1 H RDW 25.2 H Plt Count 348 Seg Neutrophils % Not Reportable Retic Count (auto) 10.02 H Sodium 139.8 Potassium 4.4 Chloride 107 Carbon Dioxide 29 Anion Gap 4 L BUN 9 Creatinine 0.53 Est GFR ( Amer) > 60 Glucose 87 Calcium 9.0 Impressions: Chest X-Ray 03/03/20 00:00 IMPRESSION: No acute cardiopulmonary process. Assessment and Plan - Diagnosis (1) Sickle cell pain crisis Is this a current diagnosis for this admission?: Yes Plan: Improved pain today. Have consulted Hematology; primary plan per them. Patient has been admitted to the medical floor. She is provided supplemental oxygen for comfort and maintain saturations greater than 92%. Continue gentle IV fluids. 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 Continue home dose Hydroxyurea, folic acid, and multivitamin. Continue nonpharmacological interventions for comfort. (2) Sickle cell anemia Qualifiers: Sickle-cell associated disorders: without crisis Qualified Code(s): D57.1 - Sickle-cell disease without crisis Is this a current diagnosis for this admission?: Yes Plan: Hgb 9.7-> 9.7-> 8.2 Primary plan per Hematology. Transfuse for <7 (3) Leukocytosis Qualifiers: Leukocytosis type: unspecified Qualified Code(s): D72.829 - Elevated white blood cell count, unspecified Is this a current diagnosis for this admission?: Yes Plan: Improved; 18.2-> 13.8-> 11.5 Likely acute inflammatory r/t sickle cell crisis pain. Urinalysis is negative UTI. Urine cultures growing <90k colonies. She did report diarrhea to the ED provided; none since arrival. CXR is benign. No indications for antibiotics at this time. (4) Tobacco abuse Is this a current diagnosis for this admission?: Yes Plan: Nicotine cessation encouraged. Nicotine replacement therapies provided. (5) Dysuria Is this a current diagnosis for this admission?: Yes Plan: Resolved Urinalysis is negative UTI x2. Urine culture <100k colonies staph haemolyticus. Leukocytosis decreased. Afebrile. Did receive Rocephin x1 per ED provider. Will hold on additional antibiotics for now. Encouraged good jann-care/hygeine. (6) Diarrhea Qualifiers: Diarrhea type: unspecified type Qualified Code(s): R19.7 - Diarrhea, unspecified Is this a current diagnosis for this admission?: Yes Plan: Resolved; no further episodes. - Plan Summary Summary: No changes; primary plan per hematology. - Time Time Spent with patient: Less than 15 minutes Medications reviewed and adjusted accordingly: Yes Anticipated Discharge Disposition: Home, Self Care Anticipated Discharge Timeframe: per Heme
[2020-03-03] MEDS: TRAZODONE HCL 50 MG TABLET PO SCH (21:59)
[2020-03-04] MEDS: DIPHENHYDRAMINE HCL 50 MG/ML VIAL IV PRN ×5 (02:53→21:21)
[2020-03-04] MEDS: HEPARIN SOD (PORCINE) 5,000 UNIT/ML 1 ML VIAL SUBCUT SCH ×3 (05:32→21:22)
[2020-03-04] MEDS: HYDROMORPHONE HCL 30 MG/60 ML RTUINJ IV PRN ×2 (06:42→18:37)
[2020-03-04] MEDS: NORMAL SALINE 1000 ML 1,000 ML IV PRN (07:30)
[2020-03-04] MEDS: HYDROXYUREA 500 MG CAPSULE PO SCH ×2 (08:56→21:21)
[2020-03-04] MEDS: CHOLECALCIFEROL (D3) 1,000 UNIT (25 MCG) TABLET PO SCH (10:48)
[2020-03-04] MEDS: CITALOPRAM HYDROBROMIDE 20 MG TABLET PO SCH ×2 (10:48→17:30)
[2020-03-04] MEDS: BUSPIRONE HCL 10 MG TABLET PO SCH ×2 (10:48→17:30)
[2020-03-04] MEDS: FOLIC ACID 1 MG TABLET PO SCH (10:48)
--- NOTE | 2020-03-04 11:28 | PDOC PROGRESS REPORT ---
Subjective Date:: 03/04/20 Subjective:: Improving, continue for next 48 hours with current pain regimen, hopeful discharge by Friday. Reason For Visit: SICKLE CELL PAIN CRISIS Physical Exam Vital Signs: Temp Pulse Resp BP Pulse Ox 97.8 F 89 16 117/62 98 03/04/20 11:16 03/04/20 11:16 03/04/20 11:00 03/04/20 11:16 03/04/20 11:16 Intake & Output 03/03/20 03/04/20 03/05/20 06:59 06:59 06:59 Intake Total 3350 2712 943 Balance 3350 2712 943 Weight 76 kg 77 kg General appearance: PRESENT: no acute distress, well-developed, well-nourished Head exam: PRESENT: atraumatic, normocephalic Eye exam: PRESENT: conjunctiva pink, EOMI, PERRLA. ABSENT: scleral icterus Ear exam: PRESENT: normal external ear exam Mouth exam: PRESENT: moist, tongue midline Neck exam: ABSENT: carotid bruit, JVD, lymphadenopathy, thyromegaly Respiratory exam: PRESENT: clear to auscultation samaria. ABSENT: rales, rhonchi, wheezes Cardiovascular exam: PRESENT: RRR. ABSENT: diastolic murmur, rubs, systolic murmur Pulses: PRESENT: normal dorsalis pedis pul Vascular exam: PRESENT: normal capillary refill GI/Abdominal exam: PRESENT: normal bowel sounds, soft. ABSENT: distended, guarding, mass, organolmegaly, rebound, tenderness Rectal exam: PRESENT: deferred Extremities exam: PRESENT: full ROM. ABSENT: calf tenderness, clubbing, pedal edema Neurological exam: PRESENT: alert, awake, oriented to person, oriented to place, oriented to time, oriented to situation, CN II-XII grossly intact. ABSENT: motor sensory deficit Psychiatric exam: PRESENT: appropriate affect, normal mood. ABSENT: homicidal ideation, suicidal ideation Skin exam: PRESENT: dry, intact, warm. ABSENT: cyanosis, rash Results Laboratory Results: 03/03/20 07:54 03/03/20 07:54 Impressions: Chest X-Ray 03/03/20 00:00 IMPRESSION: No acute cardiopulmonary process. Assessment & Plan - Diagnosis (1) Sickle cell pain crisis Is this a current diagnosis for this admission?: Yes Plan: Improving, but still needs a few more days then. Getting closer. 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 - Time Time Spent with patient: 15-24 minutes
--- NOTE | 2020-03-04 13:02 | PDOC PROGRESS REPORT ---
Subjective Date:: 03/04/20 Subjective:: The patient is a 25-year-old female with a past medical history significant for sickle cell disease, depression, DVT to the right upper extremity status post port placement, and obesity who was admitted 02/27/2020 with sickle cell anemia and sickle cell crisis pain. Patient is seen on morning rounds. She was found sitting up to the edge of the bed, comfortably, on supplemental oxygen. She states her pain is slightly better than yesterday. She denies fever, chills, chest pain, dyspnea, abd pain, nausea and vomiting. No further episodes of dysuria. She has no other questions or concerns. No concerns per nursing. Reason For Visit: SICKLE CELL PAIN CRISIS Physical Exam Vital Signs: Temp Pulse Resp BP Pulse Ox 97.8 F 89 16 117/62 98 03/04/20 11:16 03/04/20 11:16 03/04/20 11:00 03/04/20 11:16 03/04/20 11:16 Intake & Output 03/03/20 03/04/20 03/05/20 06:59 06:59 06:59 Intake Total 3350 2712 943 Balance 3350 2712 943 Weight 76 kg 77 kg General appearance: PRESENT: no acute distress, obese, well-developed, well- nourished Head exam: PRESENT: atraumatic, normocephalic Eye exam: PRESENT: conjunctiva pink, EOMI, PERRLA. ABSENT: scleral icterus Mouth exam: PRESENT: moist, tongue midline Respiratory exam: PRESENT: clear to auscultation samaria, symmetrical, unlabored. ABSENT: rales, rhonchi, wheezes Cardiovascular exam: PRESENT: RRR. ABSENT: diastolic murmur, rubs, systolic murmur Vascular exam: PRESENT: normal capillary refill Extremities exam: PRESENT: full ROM. ABSENT: calf tenderness, clubbing, pedal edema Musculoskeletal exam: PRESENT: ambulatory Neurological exam: PRESENT: alert, awake, oriented to person, oriented to place, oriented to time, oriented to situation, CN II-XII grossly intact. ABSENT: motor sensory deficit Psychiatric exam: PRESENT: appropriate affect, normal mood. ABSENT: homicidal ideation, suicidal ideation Skin exam: PRESENT: dry, intact, warm. ABSENT: cyanosis, rash Results Laboratory Results: 03/03/20 07:54 03/03/20 07:54 Impressions: Chest X-Ray 03/03/20 00:00 IMPRESSION: No acute cardiopulmonary process. Assessment and Plan - Diagnosis (1) Sickle cell pain crisis Is this a current diagnosis for this admission?: Yes Plan: Improved pain today. Have consulted Hematology; primary plan per them. Patient has been admitted to the medical floor. She is provided supplemental oxygen for comfort and maintain saturations greater than 92%. Continue gentle IV fluids. 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 Continue home dose Hydroxyurea, folic acid, and multivitamin. Continue nonpharmacological interventions for comfort. (2) Sickle cell anemia Qualifiers: Sickle-cell associated disorders: without crisis Qualified Code(s): D57.1 - Sickle-cell disease without crisis Is this a current diagnosis for this admission?: Yes Plan: Hgb 9.7-> 9.7-> 8.2 Primary plan per Hematology. Transfuse for <7 (3) Leukocytosis Qualifiers: Leukocytosis type: unspecified Qualified Code(s): D72.829 - Elevated white blood cell count, unspecified Is this a current diagnosis for this admission?: Yes Plan: Improved; 18.2-> 13.8-> 11.5 Likely acute inflammatory r/t sickle cell crisis pain. Urinalysis is negative UTI. Urine cultures growing <90k colonies. She did report diarrhea to the ED provided; none since arrival. CXR is benign. No indications for antibiotics at this time. (4) Tobacco abuse Is this a current diagnosis for this admission?: Yes Plan: Nicotine cessation encouraged. Nicotine replacement therapies provided. (5) Dysuria Is this a current diagnosis for this admission?: Yes Plan: Resolved Urinalysis is negative UTI x2. Urine culture <100k colonies staph haemolyticus. Leukocytosis decreased. Afebrile. Did receive Rocephin x1 per ED provider. Will hold on additional antibiotics for now. Encouraged good jann-care/hygeine. (6) Diarrhea Qualifiers: Diarrhea type: unspecified type Qualified Code(s): R19.7 - Diarrhea, unspecified Is this a current diagnosis for this admission?: Yes Plan: Resolved; no further episodes. - Plan Summary Summary: No changes; primary plan per hematology. - Time Time Spent with patient: Less than 15 minutes Medications reviewed and adjusted accordingly: Yes Anticipated Discharge Disposition: Home, Self Care Anticipated Discharge Timeframe: TBD
[2020-03-04] MEDS: TRAZODONE HCL 50 MG TABLET PO SCH (21:21)
[2020-03-05] MEDS: DIPHENHYDRAMINE HCL 50 MG/ML VIAL IV PRN ×5 (01:49→22:12)
[2020-03-05] MEDS: NORMAL SALINE 1000 ML 1,000 ML IV PRN ×3 (02:58→21:57)
[2020-03-05] MEDS: HYDROMORPHONE HCL 30 MG/60 ML RTUINJ IV PRN ×2 (06:42→17:29)
[2020-03-05] MEDS: HEPARIN SOD (PORCINE) 5,000 UNIT/ML 1 ML VIAL SUBCUT SCH ×3 (08:12→22:13)
[2020-03-05] MEDS: FOLIC ACID 1 MG TABLET PO SCH (09:40)
[2020-03-05] MEDS: HYDROXYUREA 500 MG CAPSULE PO SCH ×2 (09:40→22:13)
[2020-03-05] MEDS: BUSPIRONE HCL 10 MG TABLET PO SCH ×2 (09:41→17:59)
[2020-03-05] MEDS: CITALOPRAM HYDROBROMIDE 20 MG TABLET PO SCH ×2 (09:42→18:05)
[2020-03-05] MEDS: CHOLECALCIFEROL (D3) 1,000 UNIT (25 MCG) TABLET PO SCH (09:42)
--- NOTE | 2020-03-05 15:51 | PDOC PROGRESS REPORT ---
Subjective Date:: 03/05/20 Subjective:: The patient is a 25-year-old female with a past medical history significant for sickle cell disease, depression, DVT to the right upper extremity status post port placement, and obesity who was admitted 02/27/2020 with sickle cell anemia and sickle cell crisis pain. Patient is seen on morning rounds. She was found sitting up to the edge of the bed, comfortably, on supplemental oxygen. She states that her pain is uncontrolled today. She reports severe back pain. 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 She is encouraged to use nonpharmacological interventions for her discomfort. She denies fever, chills, chest pain, dyspnea, abd pain, nausea and vomiting. No further episodes of dysuria. She has no other questions or concerns. No concerns per nursing. Reason For Visit: SICKLE CELL PAIN CRISIS Physical Exam Vital Signs: Temp Pulse Resp BP Pulse Ox 97.7 F 84 16 109/64 98 03/05/20 11:24 03/05/20 11:24 03/05/20 13:00 03/05/20 11:24 03/05/20 13:00 Intake & Output 03/04/20 03/05/20 03/06/20 06:59 06:59 06:59 Intake Total 2712 1943 893 Output Total 400 Balance 2712 1543 893 Weight 77 kg 81.7 kg General appearance: PRESENT: no acute distress, obese, well-developed, well- nourished Head exam: PRESENT: atraumatic, normocephalic Eye exam: PRESENT: conjunctiva pink, EOMI, PERRLA. ABSENT: scleral icterus Mouth exam: PRESENT: moist, tongue midline Respiratory exam: PRESENT: clear to auscultation samaria, symmetrical, unlabored, other - Room air. ABSENT: rales, rhonchi, wheezes Cardiovascular exam: PRESENT: RRR. ABSENT: diastolic murmur, rubs, systolic murmur Vascular exam: PRESENT: normal capillary refill Extremities exam: PRESENT: full ROM. ABSENT: calf tenderness, clubbing, pedal edema Musculoskeletal exam: PRESENT: ambulatory Neurological exam: PRESENT: alert, awake, oriented to person, oriented to place, oriented to time, oriented to situation, CN II-XII grossly intact. ABSENT: motor sensory deficit Psychiatric exam: PRESENT: appropriate affect, normal mood. ABSENT: homicidal ideation, suicidal ideation Skin exam: PRESENT: dry, intact, warm. ABSENT: cyanosis, rash Results Laboratory Results: 03/03/20 07:54 03/03/20 07:54 Impressions: Chest X-Ray 03/03/20 00:00 IMPRESSION: No acute cardiopulmonary process. Assessment and Plan - Diagnosis (1) Sickle cell pain crisis Is this a current diagnosis for this admission?: Yes Plan: Have consulted Hematology; primary plan per them. Patient has been admitted to the medical floor. She is provided supplemental oxygen for comfort and maintain saturations greater than 92%. Continue gentle IV fluids. Pain management per hematology: currently on Dilaudid risk assessment consultant Benadryl prn itching. Continue home dose Hydroxyurea, folic acid, and multivitamin. Continue nonpharmacological interventions for comfort. (2) Sickle cell anemia Qualifiers: Sickle-cell associated disorders: without crisis Qualified Code(s): D57.1 - Sickle-cell disease without crisis Is this a current diagnosis for this admission?: Yes Plan: Hgb 9.7-> 9.7-> 8.2 Primary plan per Hematology. Transfuse for <7 (3) Leukocytosis Qualifiers: Leukocytosis type: unspecified Qualified Code(s): D72.829 - Elevated white blood cell count, unspecified Is this a current diagnosis for this admission?: Yes Plan: Improved; 18.2-> 13.8-> 11.5 Likely acute inflammatory r/t sickle cell crisis pain. Urinalysis is negative UTI. Urine cultures growing <90k colonies. She did report diarrhea to the ED provided; none since arrival. CXR is benign. No indications for antibiotics at this time. (4) Dysuria Is this a current diagnosis for this admission?: Yes Plan: Resolved Urinalysis is negative UTI x2. Urine culture <100k colonies staph haemolyticus. Leukocytosis decreased. Afebrile. Did receive Rocephin x1 per ED provider. No indications for further antibiotic therapy. Encouraged good jann-care/hygeine. (5) Diarrhea Qualifiers: Diarrhea type: unspecified type Qualified Code(s): R19.7 - Diarrhea, unspecified Is this a current diagnosis for this admission?: Yes Plan: Resolved; no further episodes. (6) Tobacco abuse Is this a current diagnosis for this admission?: Yes Plan: Nicotine cessation encouraged. Nicotine replacement therapies provided. - Plan Summary Summary: No changes; primary plan per hematology. - Time Time Spent with patient: Less than 15 minutes Medications reviewed and adjusted accordingly: Yes Anticipated Discharge Disposition: Home, Self Care Anticipated Discharge Timeframe: Per Heme
[2020-03-05] MEDS: TRAZODONE HCL 50 MG TABLET PO SCH (22:12)
[2020-03-06] MEDS: HYDROMORPHONE HCL 30 MG/60 ML RTUINJ IV PRN ×4 (04:26→21:17)
[2020-03-06] MEDS: DIPHENHYDRAMINE HCL 50 MG/ML VIAL IV PRN ×5 (04:34→22:29)
[2020-03-06] MEDS: HEPARIN SOD (PORCINE) 5,000 UNIT/ML 1 ML VIAL SUBCUT SCH ×3 (05:01→22:29)
[2020-03-06] MEDS: NORMAL SALINE 1000 ML 1,000 ML IV PRN ×2 (07:42→20:24)
--- NOTE | 2020-03-06 08:10 | PDOC PROGRESS REPORT ---
Subjective Date:: 03/06/20 Subjective:: Having a lot more pain over last 24 hours, increasing dilaudid dose today. Asked nursing to get another ua/ucx Reason For Visit: SICKLE CELL PAIN CRISIS Physical Exam Vital Signs: Temp Pulse Resp BP Pulse Ox 97.9 F 82 20 96/52 L 93 03/06/20 04:00 03/06/20 04:00 03/06/20 05:00 03/06/20 04:00 03/06/20 05:00 Intake & Output 03/05/20 03/06/20 03/07/20 06:59 06:59 06:59 Intake Total 1943 2533 975 Output Total 400 Balance 1543 2533 975 Weight 77.8 kg General appearance: PRESENT: no acute distress, well-developed, well-nourished Head exam: PRESENT: atraumatic, normocephalic Eye exam: PRESENT: conjunctiva pink, EOMI, PERRLA. ABSENT: scleral icterus Ear exam: PRESENT: normal external ear exam Mouth exam: PRESENT: moist, tongue midline Neck exam: ABSENT: carotid bruit, JVD, lymphadenopathy, thyromegaly Respiratory exam: PRESENT: clear to auscultation samaria. ABSENT: rales, rhonchi, wheezes Cardiovascular exam: PRESENT: RRR. ABSENT: diastolic murmur, rubs, systolic murmur Pulses: PRESENT: normal dorsalis pedis pul Vascular exam: PRESENT: normal capillary refill GI/Abdominal exam: PRESENT: normal bowel sounds, soft. ABSENT: distended, guarding, mass, organolmegaly, rebound, tenderness Rectal exam: PRESENT: deferred Extremities exam: PRESENT: full ROM. ABSENT: calf tenderness, clubbing, pedal edema Neurological exam: PRESENT: alert, awake, oriented to person, oriented to place, oriented to time, oriented to situation, CN II-XII grossly intact. ABSENT: motor sensory deficit Psychiatric exam: PRESENT: appropriate affect, normal mood. ABSENT: homicidal ideation, suicidal ideation Skin exam: PRESENT: dry, intact, warm. ABSENT: cyanosis, rash Results Laboratory Results: 03/03/20 07:54 03/03/20 07:54 Impressions: Chest X-Ray 03/03/20 00:00 IMPRESSION: No acute cardiopulmonary process. Assessment & Plan - Diagnosis (1) Sickle cell pain crisis Is this a current diagnosis for this admission?: Yes Plan: Worsened again. 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
[2020-03-06] MEDS: HYDROXYUREA 500 MG CAPSULE PO SCH ×2 (08:26→22:29)
[2020-03-06 08:34] LABS: APPEARANCE,URINE SLIGHTLY-CLOUDY; BILIRUBIN,URINE NEGATIVE (NEGATIVE); COLOR,URINE YELLOW; GLUCOSE, URINE NEGATIVE (NEGATIVE); KETONES,URINE NEGATIVE (NEGATIVE); LEUKOCYTE ESTERASE,URINE LARGE (NEGATIVE); NITRITE,URINE POSITIVE (NEGATIVE); PROTEIN,URINE NEGATIVE (NEGATIVE); URINE SPECIFIC GRAVITY 1.009
[2020-03-06] MEDS: CITALOPRAM HYDROBROMIDE 20 MG TABLET PO SCH ×2 (10:47→18:29)
[2020-03-06] MEDS: CHOLECALCIFEROL (D3) 1,000 UNIT (25 MCG) TABLET PO SCH (10:47)
[2020-03-06] MEDS: BUSPIRONE HCL 10 MG TABLET PO SCH ×2 (10:48→18:29)
[2020-03-06] MEDS: FOLIC ACID 1 MG TABLET PO SCH (10:48)
[2020-03-06 12:02] LABS: ABSOLUTE RETICS # 0.264 10^6/uL (0.028-0.122); HEMATOCRIT 21.8 % (36.0-47.0); MEAN CORPUSCULAR VOLUME 108 fl (80-97); PLATELET COUNT 375 10^3/uL (150-450); RED BLOOD COUNT 2.01 10^6/uL (3.72-5.28); RED CELL DISTRIBUTION WIDTH 27.2 % (11.5-14.0); RETICULOCYTE COUNT (AUTO) 13.13 % (0.66-2.85); WHITE BLOOD COUNT 11.5 10^3/uL (4.0-10.5)
[2020-03-06 12:20] LABS: ALBUMIN 3.8 g/dL (3.5-5.0); ALKALINE PHOSPHATASE 104 U/L (38-126); ANION GAP 5 (5-19); ASPARTATE AMINO TRANSFERASE 75 U/L (14-36); BILIRUBIN,TOTAL 5.7 mg/dL (0.2-1.3); BLOOD UREA NITROGEN 5 mg/dL (7-20); CALCIUM 8.7 mg/dL (8.4-10.2); CARBON DIOXIDE 30 mmol/L (22-30); CHLORIDE 105 mmol/L (98-107); GLUCOSE 95 mg/dL (75-110); POTASSIUM 4.5 mmol/L (3.6-5.0); TOTAL PROTEIN 6.8 g/dL (6.3-8.2)
[2020-03-06 12:40] LABS: ABSOLUTE LYMPHOCYTES# (MANUAL) 2.8 10^3/uL (0.5-4.7); ABSOLUTE MONOCYTES # (MANUAL) 0.7 10^3/uL (0.1-1.4); BASOPHILS % (MANUAL) 2 % (0-2); EOSINOPHILS % (MANUAL) 2 % (0-6); LYMPHOCYTES % (MANUAL) 21 % (13-45); METAMYELOCYTES % (MANUAL) 1 % (0-1); MONOCYTES % (MANUAL) 6 % (3-13); NUCLEATED RED BLOOD CELLS 26 /100 WBC (0); SEGMENTED NEUTROPHILS % (MAN) 65 % (42-78); TOTAL CELLS COUNTED 100
--- NOTE | 2020-03-06 12:44 | PDOC PROGRESS REPORT ---
Subjective Date:: 03/06/20 Subjective:: No adverse events overnight. No new complaints. Patient was sitting up in a ch air drinking a soda with a couple of candy bars and some cookies at the bedside, watching television. Appeared comfortable in no distress. Reason For Visit: SICKLE CELL PAIN CRISIS Physical Exam Vital Signs: Temp Pulse Resp BP Pulse Ox 97.8 F 82 18 107/52 L 98 03/06/20 11:42 03/06/20 11:42 03/06/20 11:42 03/06/20 11:42 03/06/20 11:42 Intake & Output 03/05/20 03/06/20 03/07/20 06:59 06:59 06:59 Intake Total 1943 2533 1375 Output Total 400 Balance 1543 2533 1375 Weight 77.8 kg General appearance: PRESENT: no acute distress, cooperative, disheveled, obese Respiratory exam: PRESENT: clear to auscultation samaria, symmetrical, unlabored. ABSENT: accessory muscle use, chest wall tenderness, crackles, prolonged expiratory phas, rhonchi, tachypnea, wheezes Cardiovascular exam: PRESENT: RRR, +S1, +S2 Pulses: PRESENT: normal carotid pulses Vascular exam: PRESENT: normal capillary refill GI/Abdominal exam: PRESENT: normal bowel sounds, soft. ABSENT: distended, guarding, rebound, tenderness Extremities exam: ABSENT: clubbing, pedal edema Musculoskeletal exam: PRESENT: normal inspection. ABSENT: deformity Neurological exam: PRESENT: alert, awake, oriented to person, oriented to place, oriented to situation Psychiatric exam: PRESENT: appropriate affect, normal mood Skin exam: PRESENT: dry, warm Results Laboratory Results: 03/06/20 11:14 03/06/20 03/06/20 08:19 11:14 Sodium 139.5 Potassium 4.5 Chloride 105 Carbon Dioxide 30 Anion Gap 5 BUN 5 L Creatinine 0.49 L Est GFR ( Amer) > 60 Glucose 95 Calcium 8.7 Total Bilirubin 5.7 H AST 75 H Alkaline Phosphatase 104 Total Protein 6.8 Albumin 3.8 Urine Color YELLOW Urine Appearance SLIGHTLY-CLOUDY Urine pH 7.0 Ur Specific [place] 1.009 Urine Protein NEGATIVE Urine Glucose (UA) NEGATIVE Urine Ketones NEGATIVE Urine Blood NEGATIVE Urine Nitrite POSITIVE H Ur Leukocyte Esterase LARGE H Urine WBC (Auto) 14 Urine RBC (Auto) 4 Impressions: Chest X-Ray 03/03/20 00:00 IMPRESSION: No acute cardiopulmonary process. Assessment and Plan - Diagnosis (1) Sickle cell anemia Qualifiers: Sickle-cell associated disorders: without crisis Qualified Code(s): D57.1 - Sickle-cell disease without crisis Is this a current diagnosis for this admission?: Yes (2) Sickle cell pain crisis Is this a current diagnosis for this admission?: Yes - Plan Summary Summary: Continue IV fluids and pain management per hematology. - Time Time Spent with patient: 15-24 minutes Anticipated Discharge Disposition: Home, Self Care Anticipated Discharge Timeframe: within 72 hours
[2020-03-06 13:13] LABS: ANISOCYTOSIS 3+; PLATELET CLUMPS PRESENT; PLATELET COMMENT ADEQUATE; POIKILOCYTOSIS 2+; SICKLE RED CELLS 1+; TARGET CELLS 1+
[2020-03-06] MEDS: TRAZODONE HCL 50 MG TABLET PO SCH (22:29)
[2020-03-07] MEDS: DIPHENHYDRAMINE HCL 50 MG/ML VIAL IV PRN ×4 (03:11→17:25)
[2020-03-07] MEDS: HYDROMORPHONE HCL 30 MG/60 ML RTUINJ IV PRN ×4 (05:34→21:09)
[2020-03-07] MEDS: NORMAL SALINE 1000 ML 1,000 ML IV PRN ×2 (05:36→15:55)
[2020-03-07] MEDS: HEPARIN SOD (PORCINE) 5,000 UNIT/ML 1 ML VIAL SUBCUT SCH ×3 (05:45→21:02)
[2020-03-07] MEDS ORDERED: NORMAL SALINE 250 ML IV PRN ×2 (07:49)
--- NOTE | 2020-03-07 08:03 | PDOC PROGRESS REPORT ---
Subjective Date:: 03/07/20 Subjective:: Patient still having considerable pain this morning. Hemoglobin dropped to the 7 range yesterday, planning to transfuse today. Reason For Visit: SICKLE CELL PAIN CRISIS Physical Exam Vital Signs: Temp Pulse Resp BP Pulse Ox 99.0 F 108 H 22 H 119/46 L 99 03/07/20 03:14 03/07/20 03:14 03/07/20 05:38 03/07/20 03:14 03/07/20 05:38 Intake & Output 03/06/20 03/07/20 03/08/20 06:59 06:59 06:59 Intake Total 2533 3595 Balance 2533 3595 Weight 77.8 kg 78.6 kg General appearance: PRESENT: no acute distress, well-developed, well-nourished Head exam: PRESENT: atraumatic, normocephalic Eye exam: PRESENT: conjunctiva pink, EOMI, PERRLA. ABSENT: scleral icterus Ear exam: PRESENT: normal external ear exam Mouth exam: PRESENT: moist, tongue midline Neck exam: ABSENT: carotid bruit, JVD, lymphadenopathy, thyromegaly Respiratory exam: PRESENT: clear to auscultation samaria. ABSENT: rales, rhonchi, wheezes Cardiovascular exam: PRESENT: RRR. ABSENT: diastolic murmur, rubs, systolic murmur Pulses: PRESENT: normal dorsalis pedis pul Vascular exam: PRESENT: normal capillary refill GI/Abdominal exam: PRESENT: normal bowel sounds, soft. ABSENT: distended, guarding, mass, organolmegaly, rebound, tenderness Rectal exam: PRESENT: deferred Extremities exam: PRESENT: full ROM. ABSENT: calf tenderness, clubbing, pedal edema Neurological exam: PRESENT: alert, awake, oriented to person, oriented to place, oriented to time, oriented to situation, CN II-XII grossly intact. ABSENT: motor sensory deficit Psychiatric exam: PRESENT: appropriate affect, normal mood. ABSENT: homicidal ideation, suicidal ideation Skin exam: PRESENT: dry, intact, warm. ABSENT: cyanosis, rash Results Laboratory Results: 03/06/20 11:14 03/06/20 11:14 03/06/20 03/06/20 03/06/20 08:19 11:14 11:14 WBC 11.5 H RBC 2.01 L Hgb 7.9 L Hct 21.8 L MCV 108 H MCH 39.0 H MCHC 36.0 RDW 27.2 H Plt Count 375 Seg Neutrophils % Not Reportable Retic Count (auto) 13.13 H Sodium 139.5 Potassium 4.5 Chloride 105 Carbon Dioxide 30 Anion Gap 5 BUN 5 L Creatinine 0.49 L Est GFR ( Amer) > 60 Glucose 95 Calcium 8.7 Total Bilirubin 5.7 H AST 75 H Alkaline Phosphatase 104 Total Protein 6.8 Albumin 3.8 Urine Color YELLOW Urine Appearance SLIGHTLY-CLOUDY Urine pH 7.0 Ur Specific [place] 1.009 Urine Protein NEGATIVE Urine Glucose (UA) NEGATIVE Urine Ketones NEGATIVE Urine Blood NEGATIVE Urine Nitrite POSITIVE H Ur Leukocyte Esterase LARGE H Urine WBC (Auto) 14 Urine RBC (Auto) 4 Impressions: Chest X-Ray 03/03/20 00:00 IMPRESSION: No acute cardiopulmonary process. 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
[2020-03-07] MEDS: HYDROXYUREA 500 MG CAPSULE PO SCH ×2 (08:06→21:09)
[2020-03-07] MEDS ORDERED: FUROSEMIDE INJ/PF 20 MG/2 ML SDV IV ONE (08:30)
[2020-03-07] MEDS ORDERED: DIPHENHYDRAMINE HCL 25 MG CAPSULE PO PRN (09:12)
[2020-03-07] MEDS ORDERED: ACETAMINOPHEN 325 MG TABLET PO PRN (09:12)
[2020-03-07] MEDS ORDERED: FUROSEMIDE INJ/PF 20 MG/2 ML SDV IV PRN (09:13)
[2020-03-07 09:17] LABS: MEAN CORPUSCULAR HEMOGLOBIN 38.8 pg (27.0-33.4); MEAN CORPUSCULAR HGB CONC 35.6 g/dL (32.0-36.0); MEAN CORPUSCULAR VOLUME 109 fl (80-97); PLATELET COUNT 381 10^3/uL (150-450); RED BLOOD COUNT 2.02 10^6/uL (3.72-5.28); RED CELL DISTRIBUTION WIDTH 27.4 % (11.5-14.0); WHITE BLOOD COUNT 20.2 10^3/uL (4.0-10.5)
[2020-03-07] MEDS: BUSPIRONE HCL 10 MG TABLET PO SCH ×2 (09:21→17:26)
[2020-03-07] MEDS: CITALOPRAM HYDROBROMIDE 20 MG TABLET PO SCH ×2 (09:21→17:26)
[2020-03-07] MEDS: CHOLECALCIFEROL (D3) 1,000 UNIT (25 MCG) TABLET PO SCH (09:21)
[2020-03-07] MEDS: FOLIC ACID 1 MG TABLET PO SCH (09:21)
[2020-03-07 09:48] LABS: HEMOGLOBIN 7.8 g/dL (12.0-15.5)
[2020-03-07] MEDS: ACETAMINOPHEN 325 MG TABLET PO PRN (12:38)
[2020-03-07] MEDS ORDERED: IBUPROFEN 800 MG TABLET PO PRN (13:41)
--- NOTE | 2020-03-07 15:34 | PDOC PROGRESS REPORT ---
Subjective Date:: 03/07/20 Subjective:: No adverse events overnight. No new complaints. Appeared comfortable in no dis tress. Reason For Visit: SICKLE CELL PAIN CRISIS Physical Exam Vital Signs: Temp Pulse Resp BP Pulse Ox 98.3 F 96 16 130/90 H 95 03/07/20 14:53 03/07/20 14:53 03/07/20 14:53 03/07/20 14:53 03/07/20 13:56 Intake & Output 03/06/20 03/07/20 03/08/20 06:59 06:59 06:59 Intake Total 2533 3595 0 Balance 2533 3595 0 Weight 77.8 kg 78.6 kg General appearance: PRESENT: no acute distress, cooperative, disheveled, obese Respiratory exam: PRESENT: clear to auscultation samaria, symmetrical, unlabored. ABSENT: accessory muscle use, chest wall tenderness, crackles, prolonged expiratory phas, rhonchi, tachypnea, wheezes Cardiovascular exam: PRESENT: RRR, +S1, +S2 Pulses: PRESENT: normal carotid pulses Vascular exam: PRESENT: normal capillary refill GI/Abdominal exam: PRESENT: normal bowel sounds, soft. ABSENT: distended, g uarding, rebound, tenderness Extremities exam: ABSENT: clubbing, pedal edema Musculoskeletal exam: PRESENT: normal inspection. ABSENT: deformity Neurological exam: PRESENT: alert, awake, oriented to person, oriented to place, oriented to situation Psychiatric exam: PRESENT: appropriate affect, normal mood Skin exam: PRESENT: dry, warm Results Laboratory Results: 03/07/20 08:22 03/06/20 11:14 03/07/20 03/07/20 08:22 08:22 WBC 20.2 H RBC 2.02 L Hgb 7.8 L Hct 22.0 L MCV 109 H MCH 38.8 H MCHC 35.6 RDW 27.4 H Plt Count 381 Blood Type O POSITIVE Antibody Screen NEGATIVE Impressions: Chest X-Ray 03/03/20 00:00 IMPRESSION: No acute cardiopulmonary process. Assessment and Plan - Diagnosis (1) Sickle cell anemia Qualifiers: Sickle-cell associated disorders: without crisis Qualified Code(s): D57.1 - Sickle-cell disease without crisis Is this a current diagnosis for this admission?: Yes (2) Sickle cell pain crisis Is this a current diagnosis for this admission?: Yes - Plan Summary Summary: Continue IV fluids and pain management per hematology. She received a transfusion of packed red cells today. We will follow up the trend in her hemoglobin. - Time Time Spent with patient: 15-24 minutes Anticipated Discharge Disposition: Home, Self Care Anticipated Discharge Timeframe: Unknown
[2020-03-07] MEDS: TRAZODONE HCL 50 MG TABLET PO SCH (21:09)
[2020-03-08] MEDS: DIPHENHYDRAMINE HCL 50 MG/ML VIAL IV PRN ×5 (00:01→21:16)
[2020-03-08] MEDS: HYDROMORPHONE HCL 30 MG/60 ML RTUINJ IV PRN ×4 (01:40→21:16)
[2020-03-08] MEDS: NORMAL SALINE 1000 ML 1,000 ML IV PRN ×2 (01:45→11:44)
[2020-03-08] MEDS: HEPARIN SOD (PORCINE) 5,000 UNIT/ML 1 ML VIAL SUBCUT SCH ×3 (05:16→21:34)
[2020-03-08 06:06] LABS: HEMATOCRIT 29.2 % (36.0-47.0); MEAN CORPUSCULAR HEMOGLOBIN 36.3 pg (27.0-33.4); MEAN CORPUSCULAR HGB CONC 36.1 g/dL (32.0-36.0); PLATELET COUNT 383 10^3/uL (150-450); RED BLOOD COUNT 2.91 10^6/uL (3.72-5.28); RED CELL DISTRIBUTION WIDTH 26.6 % (11.5-14.0); WHITE BLOOD COUNT 13.2 10^3/uL (4.0-10.5)
[2020-03-08 06:45] LABS: HEMOGLOBIN 10.6 g/dL (12.0-15.5)
[2020-03-08 06:46] LABS: MEAN CORPUSCULAR VOLUME 100 fl (80-97)
[2020-03-08 07:46] LABS: HEMOGLOBIN 7.9 g/dL (12.0-15.5)
--- NOTE | 2020-03-08 08:42 | PDOC PROGRESS REPORT ---
Subjective Date:: 03/08/20 Subjective:: Still with very significant pain. Controlled at times. Unfortunately the pump ran out and she is in extreme pain right now. Nursing working on changing the pump now. Not much improvement after transfusion unfortunately. Reason For Visit: SICKLE CELL PAIN CRISIS Physical Exam Vital Signs: Temp Pulse Resp BP Pulse Ox 98.1 F 68 16 122/74 99 03/08/20 08:00 03/08/20 08:00 03/08/20 08:00 03/08/20 08:00 03/08/20 08:00 Intake & Output 03/07/20 03/08/20 03/09/20 06:59 06:59 06:59 Intake Total 3595 3183 Balance 3595 3183 Weight 78.6 kg 78.4 kg General appearance: PRESENT: no acute distress, well-developed, well-nourished Head exam: PRESENT: atraumatic, normocephalic Eye exam: PRESENT: conjunctiva pink, EOMI, PERRLA. ABSENT: scleral icterus Ear exam: PRESENT: normal external ear exam Mouth exam: PRESENT: moist, tongue midline Neck exam: ABSENT: carotid bruit, JVD, lymphadenopathy, thyromegaly Respiratory exam: PRESENT: clear to auscultation samaria. ABSENT: rales, rhonchi, wheezes Cardiovascular exam: PRESENT: RRR. ABSENT: diastolic murmur, rubs, systolic murmur Pulses: PRESENT: normal dorsalis pedis pul Vascular exam: PRESENT: normal capillary refill GI/Abdominal exam: PRESENT: normal bowel sounds, soft. ABSENT: distended, guarding, mass, organolmegaly, rebound, tenderness Rectal exam: PRESENT: deferred Extremities exam: PRESENT: full ROM. ABSENT: calf tenderness, clubbing, pedal edema Neurological exam: PRESENT: alert, awake, oriented to person, oriented to place, oriented to time, oriented to situation, CN II-XII grossly intact. ABSENT: motor sensory deficit Psychiatric exam: PRESENT: appropriate affect, normal mood. ABSENT: homicidal ideation, suicidal ideation Skin exam: PRESENT: dry, intact, warm. ABSENT: cyanosis, rash Results Laboratory Results: 03/08/20 05:40 03/06/20 11:14 03/06/20 03/07/20 03/07/20 11:14 08:22 08:22 WBC 11.5 H 20.2 H RBC 2.02 L Hgb 7.9 L 7.8 L Hct 22.0 L MCV 109 H MCH 38.8 H MCHC 35.6 RDW 27.4 H Plt Count 381 Blood Type O POSITIVE Antibody Screen NEGATIVE 03/08/20 05:40 WBC 13.2 H RBC 2.91 L Hgb 10.6 L D Hct 29.2 L MCV 100 H D MCH 36.3 H MCHC 36.1 H RDW 26.6 H Plt Count 383 Blood Type Antibody Screen Impressions: Chest X-Ray 03/03/20 00:00 IMPRESSION: No acute cardiopulmonary process. Assessment & Plan - Diagnosis (1) Sickle cell pain crisis Is this a current diagnosis for this admission?: Yes Plan: Continued severe crisis, continue with current pain regimen. 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 - Time Time Spent with patient: 15-24 minutes
[2020-03-08] MEDS: HYDROXYUREA 500 MG CAPSULE PO SCH ×2 (09:50→21:16)
[2020-03-08] MEDS: CHOLECALCIFEROL (D3) 1,000 UNIT (25 MCG) TABLET PO SCH (09:51)
[2020-03-08] MEDS: BUSPIRONE HCL 10 MG TABLET PO SCH ×2 (09:51→17:54)
[2020-03-08] MEDS: CITALOPRAM HYDROBROMIDE 20 MG TABLET PO SCH ×2 (09:51→17:54)
[2020-03-08] MEDS: FOLIC ACID 1 MG TABLET PO SCH (09:51)
[2020-03-08] MEDS ORDERED: ONDANSETRON HCL INJ/PF 4 MG/2 ML SDV IV PRN (10:00)
--- NOTE | 2020-03-08 16:35 | PDOC PROGRESS REPORT ---
Subjective Date:: 03/08/20 Subjective:: No adverse events overnight. Says she had some pain when her Dilaudid pump ran out but she seems to be doing better now. Reason For Visit: SICKLE CELL PAIN CRISIS Physical Exam Vital Signs: Temp Pulse Resp BP Pulse Ox 97.8 F 80 16 110/56 L 100 03/08/20 11:06 03/08/20 11:06 03/08/20 11:06 03/08/20 11:06 03/08/20 11:06 Intake & Output 03/07/20 03/08/20 03/09/20 06:59 06:59 06:59 Intake Total 3595 3183 1398 Balance 3595 3183 1398 Weight 78.6 kg 78.4 kg General appearance: PRESENT: no acute distress, cooperative, disheveled, obese Respiratory exam: PRESENT: clear to auscultation samaria, symmetrical, unlabored. ABSENT: accessory muscle use, chest wall tenderness, crackles, prolonged expiratory phas, rhonchi, tachypnea, wheezes Cardiovascular exam: PRESENT: RRR, +S1, +S2 Pulses: PRESENT: normal carotid pulses Vascular exam: PRESENT: normal capillary refill GI/Abdominal exam: PRESENT: normal bowel sounds, soft. ABSENT: distended, guarding, rebound, tenderness Extremities exam: ABSENT: clubbing, pedal edema Musculoskeletal exam: PRESENT: normal inspection. ABSENT: deformity Neurological exam: PRESENT: alert, awake, oriented to person, oriented to place, oriented to situation Psychiatric exam: PRESENT: appropriate affect, normal mood Skin exam: PRESENT: dry, warm Results Laboratory Results: 03/08/20 05:40 03/06/20 11:14 03/06/20 03/08/20 11:14 05:40 WBC 11.5 H 13.2 H RBC 2.91 L Hgb 7.9 L 10.6 L D Hct 29.2 L MCV 100 H D MCH 36.3 H MCHC 36.1 H RDW 26.6 H Plt Count 383 03/06/20 11:14 Clean Catch Midstream Urine Culture - Final Lactobacillus (Vaginal Tiara) Impressions: Chest X-Ray 03/03/20 00:00 IMPRESSION: No acute cardiopulmonary process. Assessment and Plan - Diagnosis (1) Sickle cell anemia Qualifiers: Sickle-cell associated disorders: without crisis Qualified Code(s): D57.1 - Sickle-cell disease without crisis Is this a current diagnosis for this admission?: Yes (2) Sickle cell pain crisis Is this a current diagnosis for this admission?: Yes - Plan Summary Summary: Continue IV fluids and pain management per hematology. She received a transf usion of packed red cells, hemoglobin is up above 10 now. - Time Time Spent with patient: 15-24 minutes Anticipated Discharge Disposition: Unknown Anticipated Discharge Timeframe: Unknown
[2020-03-08] MEDS: TRAZODONE HCL 50 MG TABLET PO SCH (21:16)
[2020-03-09] MEDS: DIPHENHYDRAMINE HCL 50 MG/ML VIAL IV PRN ×6 (01:25→23:02)
[2020-03-09] MEDS: HYDROMORPHONE HCL 30 MG/60 ML RTUINJ IV PRN ×5 (03:36→23:44)
[2020-03-09] MEDS: HEPARIN SOD (PORCINE) 5,000 UNIT/ML 1 ML VIAL SUBCUT SCH ×2 (06:30→18:07)
[2020-03-09] MEDS: NORMAL SALINE 1000 ML 1,000 ML IV PRN (06:33)
--- NOTE | 2020-03-09 07:55 | PDOC PROGRESS REPORT ---
Subjective Date:: 03/09/20 Subjective:: Still w/ pain this am, but seems controlled on dilaudid [employer], will continue Reason For Visit: SICKLE CELL PAIN CRISIS Physical Exam Vital Signs: Temp Pulse Resp BP Pulse Ox 97.6 F 87 18 114/52 L 98 03/09/20 04:00 03/09/20 04:00 03/09/20 07:39 03/09/20 04:00 03/09/20 04:00 Intake & Output 03/08/20 03/09/20 03/10/20 06:59 06:59 06:59 Intake Total 3183 2398 Balance 3183 2398 Weight 78.4 kg 81.5 kg General appearance: PRESENT: no acute distress, well-developed, well-nourished Head exam: PRESENT: atraumatic, normocephalic Eye exam: PRESENT: conjunctiva pink, EOMI, PERRLA. ABSENT: scleral icterus Ear exam: PRESENT: normal external ear exam Mouth exam: PRESENT: moist, tongue midline Neck exam: ABSENT: carotid bruit, JVD, lymphadenopathy, thyromegaly Respiratory exam: PRESENT: clear to auscultation samaria. ABSENT: rales, rhonchi, wheezes Cardiovascular exam: PRESENT: RRR. ABSENT: diastolic murmur, rubs, systolic murmur Pulses: PRESENT: normal dorsalis pedis pul Vascular exam: PRESENT: normal capillary refill GI/Abdominal exam: PRESENT: normal bowel sounds, soft. ABSENT: distended, guarding, mass, organolmegaly, rebound, tenderness Rectal exam: PRESENT: deferred Extremities exam: PRESENT: full ROM. ABSENT: calf tenderness, clubbing, pedal edema Neurological exam: PRESENT: alert, awake, oriented to person, oriented to place, oriented to time, oriented to situation, CN II-XII grossly intact. ABSENT: motor sensory deficit Psychiatric exam: PRESENT: appropriate affect, normal mood. ABSENT: homicidal ideation, suicidal ideation Skin exam: PRESENT: dry, intact, warm. ABSENT: cyanosis, rash Results Laboratory Results: 03/08/20 05:40 03/06/20 11:14 03/06/20 11:14 Clean Catch Midstream Urine Culture - Final Lactobacillus (Vaginal Tiara) Impressions: Chest X-Ray 03/03/20 00:00 IMPRESSION: No acute cardiopulmonary process. 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
[2020-03-09] MEDS: HYDROXYUREA 500 MG CAPSULE PO SCH ×2 (08:37→23:02)
[2020-03-09] MEDS: BUSPIRONE HCL 10 MG TABLET PO SCH ×2 (10:47→18:19)
[2020-03-09] MEDS: CITALOPRAM HYDROBROMIDE 20 MG TABLET PO SCH ×2 (10:47→18:19)
[2020-03-09] MEDS: FOLIC ACID 1 MG TABLET PO SCH (10:47)
[2020-03-09] MEDS: CHOLECALCIFEROL (D3) 1,000 UNIT (25 MCG) TABLET PO SCH (10:47)
--- NOTE | 2020-03-09 16:21 | PDOC PROGRESS REPORT ---
Subjective Date:: 03/09/20 Subjective:: No adverse events overnight. No new complaints. Pain seems to be well controll ed now. Reason For Visit: SICKLE CELL PAIN CRISIS Physical Exam Vital Signs: Temp Pulse Resp BP Pulse Ox 97.4 F 76 16 120/66 99 03/09/20 15:31 03/09/20 15:31 03/09/20 15:31 03/09/20 15:31 03/09/20 15:31 Intake & Output 03/08/20 03/09/20 03/10/20 06:59 06:59 06:59 Intake Total 3183 2398 Balance 3183 2398 Weight 78.4 kg 81.5 kg General appearance: PRESENT: no acute distress, cooperative, disheveled, obese Respiratory exam: PRESENT: clear to auscultation samaria, symmetrical, unlabored. ABSENT: accessory muscle use, chest wall tenderness, crackles, prolonged expiratory phas, rhonchi, tachypnea, wheezes Cardiovascular exam: PRESENT: RRR, +S1, +S2 Pulses: PRESENT: normal carotid pulses Vascular exam: PRESENT: normal capillary refill GI/Abdominal exam: PRESENT: normal bowel sounds, soft. ABSENT: distended, gua rding, rebound, tenderness Extremities exam: ABSENT: clubbing, pedal edema Musculoskeletal exam: PRESENT: normal inspection. ABSENT: deformity Neurological exam: PRESENT: alert, awake, oriented to person, oriented to place, oriented to situation Psychiatric exam: PRESENT: appropriate affect, normal mood Skin exam: PRESENT: dry, warm Results Laboratory Results: 03/08/20 05:40 03/06/20 11:14 Impressions: Chest X-Ray 03/03/20 00:00 IMPRESSION: No acute cardiopulmonary process. Assessment and Plan - Diagnosis (1) Sickle cell anemia Qualifiers: Sickle-cell associated disorders: without crisis Qualified Code(s): D57.1 - Sickle-cell disease without crisis Is this a current diagnosis for this admission?: Yes (2) Sickle cell pain crisis Is this a current diagnosis for this admission?: Yes - Plan Summary Summary: Continue IV fluids and pain management per hematology. She received a transfusion of packed red cells. Continue current management. - Time Time Spent with patient: 15-24 minutes Anticipated Discharge Disposition: Home, Self Care Anticipated Discharge Timeframe: Unknown
[2020-03-09] MEDS: ACETAMINOPHEN 325 MG TABLET PO PRN (20:34)
[2020-03-09] MEDS: TRAZODONE HCL 50 MG TABLET PO SCH (23:02)
[2020-03-10] MEDS: HEPARIN SOD (PORCINE) 5,000 UNIT/ML 1 ML VIAL SUBCUT SCH ×4 (03:13→22:50)
[2020-03-10] MEDS: DIPHENHYDRAMINE HCL 50 MG/ML VIAL IV PRN ×5 (03:15→22:51)
[2020-03-10] MEDS: HYDROMORPHONE HCL 30 MG/60 ML RTUINJ IV PRN ×3 (07:20→20:31)
--- NOTE | 2020-03-10 07:57 | PDOC PROGRESS REPORT ---
Subjective Date:: 03/10/20 Subjective:: Patient was sleeping comfortably when I saw her, this is the first morning in the last 10 days that have seen her that she has been comfortable. Would continue current dosing for another 48 hours to see how she does. Reason For Visit: SICKLE CELL PAIN CRISIS Physical Exam Vital Signs: Temp Pulse Resp BP Pulse Ox 97.8 F 82 16 118/60 97 03/09/20 21:55 03/09/20 20:25 03/10/20 05:00 03/09/20 20:25 03/09/20 20:25 Intake & Output 03/09/20 03/10/20 03/11/20 06:59 06:59 06:59 Intake Total 2398 Balance 2398 Weight 81.5 kg 81.9 kg General appearance: PRESENT: no acute distress, well-developed, well-nourished Head exam: PRESENT: atraumatic, normocephalic Eye exam: PRESENT: conjunctiva pink, EOMI, PERRLA. ABSENT: scleral icterus Ear exam: PRESENT: normal external ear exam Mouth exam: PRESENT: moist, tongue midline Neck exam: ABSENT: carotid bruit, JVD, lymphadenopathy, thyromegaly Respiratory exam: PRESENT: clear to auscultation samaria. ABSENT: rales, rhonchi, wheezes Cardiovascular exam: PRESENT: RRR. ABSENT: diastolic murmur, rubs, systolic murmur Pulses: PRESENT: normal dorsalis pedis pul Vascular exam: PRESENT: normal capillary refill GI/Abdominal exam: PRESENT: normal bowel sounds, soft. ABSENT: distended, guarding, mass, organolmegaly, rebound, tenderness Rectal exam: PRESENT: deferred Extremities exam: PRESENT: full ROM. ABSENT: calf tenderness, clubbing, pedal edema Neurological exam: PRESENT: alert, awake, oriented to person, oriented to place, oriented to time, oriented to situation, CN II-XII grossly intact. ABSENT: motor sensory deficit Psychiatric exam: PRESENT: appropriate affect, normal mood. ABSENT: homicidal ideation, suicidal ideation Skin exam: PRESENT: dry, intact, warm. ABSENT: cyanosis, rash Results Laboratory Results: 03/08/20 05:40 03/06/20 11:14 Impressions: Chest X-Ray 03/03/20 00:00 IMPRESSION: No acute cardiopulmonary process. Assessment & Plan - Diagnosis (1) Sickle cell pain crisis Is this a current diagnosis for this admission?: Yes Plan: Continue with current therapy, will need another 1 to 2 days before reducing. 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 - Time Time Spent with patient: 25-34 minutes
[2020-03-10] MEDS: BUSPIRONE HCL 10 MG TABLET PO SCH ×2 (09:12→18:02)
[2020-03-10] MEDS: FOLIC ACID 1 MG TABLET PO SCH (09:13)
[2020-03-10] MEDS: CITALOPRAM HYDROBROMIDE 20 MG TABLET PO SCH ×2 (09:13→18:02)
[2020-03-10] MEDS: CHOLECALCIFEROL (D3) 1,000 UNIT (25 MCG) TABLET PO SCH (09:13)
[2020-03-10] MEDS: HYDROXYUREA 500 MG CAPSULE PO SCH ×2 (09:14→22:50)
[2020-03-10] MEDS: NORMAL SALINE 1000 ML 1,000 ML IV PRN ×2 (13:44→22:50)
--- NOTE | 2020-03-10 15:46 | PDOC PROGRESS REPORT ---
Subjective Date:: 03/10/20 Subjective:: No adverse events overnight. No new complaints. Currently resting comfortably. Reason For Visit: SICKLE CELL PAIN CRISIS Physical Exam Vital Signs: Temp Pulse Resp BP Pulse Ox 97.8 F 90 16 130/80 H 97 03/10/20 15:40 03/10/20 15:40 03/10/20 15:40 03/10/20 11:31 03/10/20 15:40 Intake & Output 03/09/20 03/10/20 03/11/20 06:59 06:59 06:59 Intake Total 2398 1000 Balance 2398 1000 Weight 81.5 kg 81.9 kg General appearance: PRESENT: no acute distress, cooperative, disheveled, obese Respiratory exam: PRESENT: clear to auscultation samaria, symmetrical, unlabored. ABSENT: accessory muscle use, chest wall tenderness, crackles, prolonged expiratory phas, rhonchi, tachypnea, wheezes Cardiovascular exam: PRESENT: RRR, +S1, +S2 Pulses: PRESENT: normal carotid pulses Vascular exam: PRESENT: normal capillary refill GI/Abdominal exam: PRESENT: normal bowel sounds, soft. ABSENT: distended, guarding, rebound, tenderness Extremities exam: ABSENT: clubbing, pedal edema Musculoskeletal exam: PRESENT: normal inspection. ABSENT: deformity Neurological exam: PRESENT: alert, awake, oriented to person, oriented to place, oriented to situation Psychiatric exam: PRESENT: appropriate affect, normal mood Skin exam: PRESENT: dry, warm Results Laboratory Results: 03/08/20 05:40 03/06/20 11:14 Impressions: Chest X-Ray 03/03/20 00:00 IMPRESSION: No acute cardiopulmonary process. Assessment and Plan - Diagnosis (1) Sickle cell anemia Qualifiers: Sickle-cell associated disorders: without crisis Qualified Code(s): D57.1 - Sickle-cell disease without crisis Is this a current diagnosis for this admission?: Yes (2) Sickle cell pain crisis Is this a current diagnosis for this admission?: Yes - Plan Summary Summary: Continue IV fluids and pain management per hematology. She received a tra nsfusion of packed red cells. Continue current management. Currently hematology recommending another 1 to 2 days of treatment. - Time Time Spent with patient: 15-24 minutes Anticipated Discharge Disposition: Home, Self Care Anticipated Discharge Timeframe: within 72 hours
[2020-03-10] MEDS: TRAZODONE HCL 50 MG TABLET PO SCH (22:50)
[2020-03-11] MEDS: HYDROMORPHONE HCL 30 MG/60 ML RTUINJ IV PRN ×3 (01:15→22:14)
[2020-03-11] MEDS: HEPARIN SOD (PORCINE) 5,000 UNIT/ML 1 ML VIAL SUBCUT SCH ×3 (06:50→22:35)
[2020-03-11] MEDS: DIPHENHYDRAMINE HCL 50 MG/ML VIAL IV PRN ×4 (07:31→21:39)
[2020-03-11] MEDS: HYDROXYUREA 500 MG CAPSULE PO SCH ×2 (08:04→21:39)
[2020-03-11] MEDS: NORMAL SALINE 1000 ML 1,000 ML IV PRN ×2 (08:04→17:16)
[2020-03-11] MEDS: BUSPIRONE HCL 10 MG TABLET PO SCH ×2 (11:55→17:15)
[2020-03-11] MEDS: CITALOPRAM HYDROBROMIDE 20 MG TABLET PO SCH ×2 (11:56→17:15)
[2020-03-11] MEDS: FOLIC ACID 1 MG TABLET PO SCH (11:56)
[2020-03-11] MEDS: CHOLECALCIFEROL (D3) 1,000 UNIT (25 MCG) TABLET PO SCH (12:17)
--- NOTE | 2020-03-11 14:52 | PDOC PROGRESS REPORT ---
Subjective Date:: 03/11/20 Subjective:: No adverse events overnight. No new complaints. Currently resting comfortably. Reason For Visit: SICKLE CELL PAIN CRISIS Physical Exam Vital Signs: Temp Pulse Resp BP Pulse Ox 98.2 F 84 18 126/69 H 100 03/11/20 11:01 03/11/20 11:01 03/11/20 11:01 03/11/20 11:01 03/11/20 11:01 Intake & Output 03/10/20 03/11/20 03/12/20 06:59 06:59 06:59 Intake Total 1000 910 923 Balance 1000 910 923 Weight 81.9 kg 82.3 kg General appearance: PRESENT: no acute distress, cooperative, disheveled, obese Respiratory exam: PRESENT: clear to auscultation samaria, symmetrical, unlabored. ABSENT: accessory muscle use, chest wall tenderness, crackles, prolonged expiratory phas, rhonchi, tachypnea, wheezes Cardiovascular exam: PRESENT: RRR, +S1, +S2 Pulses: PRESENT: normal carotid pulses Vascular exam: PRESENT: normal capillary refill GI/Abdominal exam: PRESENT: normal bowel sounds, soft. ABSENT: distended, guar ding, rebound, tenderness Extremities exam: ABSENT: clubbing, pedal edema Musculoskeletal exam: PRESENT: normal inspection. ABSENT: deformity Neurological exam: PRESENT: alert, awake, oriented to person, oriented to place, oriented to situation Psychiatric exam: PRESENT: appropriate affect, normal mood Skin exam: PRESENT: dry, warm Results Laboratory Results: 03/08/20 05:40 03/06/20 11:14 Impressions: Chest X-Ray 03/03/20 00:00 IMPRESSION: No acute cardiopulmonary process. Assessment and Plan - Diagnosis (1) Sickle cell anemia Qualifiers: Sickle-cell associated disorders: without crisis Qualified Code(s): D57.1 - Sickle-cell disease without crisis Is this a current diagnosis for this admission?: Yes (2) Sickle cell pain crisis Is this a current diagnosis for this admission?: Yes - Plan Summary Summary: Continue IV fluids and pain management per hematology. She received a transfusion of packed red cells. Continue current management. Currently hematology recommending another day or so of treatment. - Time Time Spent with patient: 15-24 minutes Anticipated Discharge Disposition: Home, Self Care Anticipated Discharge Timeframe: within 72 hours
--- NOTE | 2020-03-11 18:29 | PDOC PROGRESS REPORT ---
Subjective Date:: 03/11/20 Subjective:: Patient states that she is needing to push the GIMP TACKER button less often. However, she still has episodes of severe pain in her back which comes and goes. Her bowels are moving every other day. She is walking in the [place]. No dyspnea. No fevers. Reason For Visit: SICKLE CELL PAIN CRISIS Physical Exam Vital Signs: Temp Pulse Resp BP Pulse Ox 98.2 F 81 16 114/66 99 03/11/20 15:33 03/11/20 15:33 03/11/20 16:52 03/11/20 15:33 03/11/20 16:52 Intake & Output 03/10/20 03/11/20 03/12/20 06:59 06:59 06:59 Intake Total 4270 186 3903 Balance 8771 906 0009 Weight 81.9 kg 82.3 kg General appearance: PRESENT: no acute distress Head exam: PRESENT: normocephalic Eye exam: PRESENT: PERRLA Mouth exam: PRESENT: tongue midline Respiratory exam: PRESENT: unlabored Extremities exam: PRESENT: +1 edema Musculoskeletal exam: PRESENT: ambulatory Neurological exam: PRESENT: alert, awake, oriented to person, oriented to place, oriented to time, oriented to situation Psychiatric exam: PRESENT: appropriate affect Skin exam: PRESENT: normal color Results Laboratory Results: 03/08/20 05:40 03/06/20 11:14 Impressions: Chest X-Ray 03/03/20 00:00 IMPRESSION: No acute cardiopulmonary process. Assessment & Plan - Diagnosis (1) Sickle cell pain crisis Is this a current diagnosis for this admission?: Yes Plan: I will decreased the basal rate of the Dilaudid GIMP TACKER to 1 mg/hr and keep all else the same. Consider Stopping the basal rate in 2 days and only using GIMP TACKER bolus dose if she continues to do well. Her HGB has greatly improved after blood transfusion. Will continue all other treatments without change. No evidence of active infection. DVT prophylaxis in place. However, nurses report that she has been refusing this. - Time Time Spent with patient: Less than 15 minutes
[2020-03-11] MEDS: TRAZODONE HCL 50 MG TABLET PO SCH (21:39)
[2020-03-12] MEDS: NORMAL SALINE 1000 ML 1,000 ML IV PRN ×3 (03:54→23:56)
[2020-03-12] MEDS: HYDROMORPHONE HCL 30 MG/60 ML RTUINJ IV PRN ×2 (08:01→16:00)
[2020-03-12] MEDS: DIPHENHYDRAMINE HCL 50 MG/ML VIAL IV PRN ×4 (08:02→21:13)
[2020-03-12] MEDS: HEPARIN SOD (PORCINE) 5,000 UNIT/ML 1 ML VIAL SUBCUT SCH ×3 (08:18→22:19)
[2020-03-12] MEDS: FOLIC ACID 1 MG TABLET PO SCH (09:07)
[2020-03-12] MEDS: CITALOPRAM HYDROBROMIDE 20 MG TABLET PO SCH ×2 (09:07→17:35)
[2020-03-12] MEDS: HYDROXYUREA 500 MG CAPSULE PO SCH ×2 (09:08→21:13)
[2020-03-12] MEDS: CHOLECALCIFEROL (D3) 1,000 UNIT (25 MCG) TABLET PO SCH (09:08)
[2020-03-12] MEDS: BUSPIRONE HCL 10 MG TABLET PO SCH ×2 (09:10→17:35)
--- NOTE | 2020-03-12 14:00 | PDOC PROGRESS REPORT ---
Subjective Date:: 03/12/20 Subjective:: No adverse events overnight. No new complaints. Basal rate on her RESERVOIR CARETAKER drip was decreased yesterday. Reason For Visit: SICKLE CELL PAIN CRISIS Physical Exam Vital Signs: Temp Pulse Resp BP Pulse Ox 98.7 F 86 18 103/54 L 96 03/12/20 11:40 03/12/20 11:40 03/12/20 11:40 03/12/20 11:40 03/12/20 11:40 Intake & Output 03/11/20 03/12/20 03/13/20 06:59 06:59 06:59 Intake Total 910 2843 972 Balance 910 2843 972 Weight 82.3 kg 80.8 kg General appearance: PRESENT: no acute distress, cooperative, disheveled, obese Respiratory exam: PRESENT: clear to auscultation samaria, symmetrical, unlabored. ABSENT: accessory muscle use, chest wall tenderness, crackles, prolonged expiratory phas, rhonchi, tachypnea, wheezes Cardiovascular exam: PRESENT: RRR, +S1, +S2 Pulses: PRESENT: normal carotid pulses Vascular exam: PRESENT: normal capillary refill GI/Abdominal exam: PRESENT: normal bowel sounds, soft. ABSENT: distended, guarding, rebound, tenderness Extremities exam: ABSENT: clubbing, pedal edema Musculoskeletal exam: PRESENT: normal inspection. ABSENT: deformity Neurological exam: PRESENT: alert, awake, oriented to person, oriented to place, oriented to situation Psychiatric exam: PRESENT: appropriate affect, normal mood Skin exam: PRESENT: dry, warm Results Laboratory Results: 03/08/20 05:40 03/06/20 11:14 Impressions: Chest X-Ray 03/03/20 00:00 IMPRESSION: No acute cardiopulmonary process. Assessment and Plan - Diagnosis (1) Sickle cell anemia Qualifiers: Sickle-cell associated disorders: without crisis Qualified Code(s): D57.1 - Sickle-cell disease without crisis Is this a current diagnosis for this admission?: Yes (2) Sickle cell pain crisis Is this a current diagnosis for this admission?: Yes - Plan Summary Summary: Continue IV fluids and pain management per hematology. She received a transfusion of packed red cells. Continue current management. Basal rate on RESERVOIR CARETAKER being weaned. - Time Time Spent with patient: Less than 15 minutes Anticipated Discharge Disposition: Home, Self Care Anticipated Discharge Timeframe: Unknown
[2020-03-12 15:29] LABS: ABSOLUTE RETICS # 0.082 10^6/uL (0.028-0.122); HEMATOCRIT 31.8 % (36.0-47.0); HEMOGLOBIN 11.2 g/dL (12.0-15.5); MEAN CORPUSCULAR HEMOGLOBIN 35.9 pg (27.0-33.4); MEAN CORPUSCULAR HGB CONC 35.2 g/dL (32.0-36.0); MEAN CORPUSCULAR VOLUME 102 fl (80-97); PLATELET COUNT 460 10^3/uL (150-450); RED BLOOD COUNT 3.12 10^6/uL (3.72-5.28); RED CELL DISTRIBUTION WIDTH 24.9 % (11.5-14.0); RETICULOCYTE COUNT (AUTO) 2.64 % (0.66-2.85)
[2020-03-12 15:54] LABS: ANION GAP 6 (5-19); BLOOD UREA NITROGEN 11 mg/dL (7-20); CALCIUM 9.7 mg/dL (8.4-10.2); CARBON DIOXIDE 29 mmol/L (22-30); CHLORIDE 105 mmol/L (98-107); GLUCOSE 103 mg/dL (75-110); POTASSIUM 4.1 mmol/L (3.6-5.0)
[2020-03-12] MEDS: TRAZODONE HCL 50 MG TABLET PO SCH (21:14)
[2020-03-13] MEDS: DIPHENHYDRAMINE HCL 50 MG/ML VIAL IV PRN ×5 (01:43→22:04)
[2020-03-13] MEDS: HYDROMORPHONE HCL 30 MG/60 ML RTUINJ IV PRN ×4 (05:30→20:59)
[2020-03-13] MEDS: HEPARIN SOD (PORCINE) 5,000 UNIT/ML 1 ML VIAL SUBCUT SCH ×3 (06:23→18:30)
[2020-03-13] MEDS: HYDROXYUREA 500 MG CAPSULE PO SCH ×2 (07:50→22:05)
--- NOTE | 2020-03-13 08:10 | PDOC PROGRESS REPORT ---
Subjective Date:: 03/13/20 Subjective:: Improved, continue current dosing for now. I believe she could hopefully discharge home by Friday, as long as she continues to improve. Reason For Visit: SICKLE CELL PAIN CRISIS Physical Exam Vital Signs: Temp Pulse Resp BP Pulse Ox 97.8 F 81 16 109/54 L 97 03/13/20 04:38 03/13/20 04:38 03/13/20 05:00 03/13/20 04:38 03/13/20 05:00 Intake & Output 03/12/20 03/13/20 03/14/20 06:59 06:59 06:59 Intake Total 2843 2292 Balance 2843 2292 Weight 80.8 kg 81.6 kg General appearance: PRESENT: no acute distress, well-developed, well-nourished Head exam: PRESENT: atraumatic, normocephalic Eye exam: PRESENT: conjunctiva pink, EOMI, PERRLA. ABSENT: scleral icterus Ear exam: PRESENT: normal external ear exam Mouth exam: PRESENT: moist, tongue midline Neck exam: ABSENT: carotid bruit, JVD, lymphadenopathy, thyromegaly Respiratory exam: PRESENT: clear to auscultation samaria. ABSENT: rales, rhonchi, wheezes Cardiovascular exam: PRESENT: RRR. ABSENT: diastolic murmur, rubs, systolic murmur Pulses: PRESENT: normal dorsalis pedis pul Vascular exam: PRESENT: normal capillary refill GI/Abdominal exam: PRESENT: normal bowel sounds, soft. ABSENT: distended, guarding, mass, organolmegaly, rebound, tenderness Rectal exam: PRESENT: deferred Extremities exam: PRESENT: full ROM. ABSENT: calf tenderness, clubbing, pedal edema Neurological exam: PRESENT: alert, awake, oriented to person, oriented to place, oriented to time, oriented to situation, CN II-XII grossly intact. ABSENT: motor sensory deficit Psychiatric exam: PRESENT: appropriate affect, normal mood. ABSENT: homicidal ideation, suicidal ideation Skin exam: PRESENT: dry, intact, warm. ABSENT: cyanosis, rash Results Laboratory Results: 03/12/20 15:10 03/12/20 15:10 03/12/20 03/12/20 15:10 15:10 WBC 8.0 RBC 3.12 L Hgb 11.2 L Hct 31.8 L MCV 102 H MCH 35.9 H MCHC 35.2 RDW 24.9 H Plt Count 460 H Retic Count (auto) 2.64 Sodium 140.0 Potassium 4.1 Chloride 105 Carbon Dioxide 29 Anion Gap 6 BUN 11 Creatinine 0.57 Est GFR ( Amer) > 60 Glucose 103 Calcium 9.7 Impressions: Chest X-Ray 03/03/20 00:00 IMPRESSION: No acute cardiopulmonary process. Assessment & Plan - Diagnosis (1) Sickle cell pain crisis Is this a current diagnosis for this admission?: Yes Plan: Continue current pain regimen, follow-up labs. 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 - Time Time Spent with patient: 15-24 minutes
[2020-03-13] MEDS: CHOLECALCIFEROL (D3) 1,000 UNIT (25 MCG) TABLET PO SCH (10:44)
[2020-03-13] MEDS: BUSPIRONE HCL 10 MG TABLET PO SCH ×2 (10:45→18:30)
[2020-03-13] MEDS: FOLIC ACID 1 MG TABLET PO SCH (10:47)
[2020-03-13] MEDS: CITALOPRAM HYDROBROMIDE 20 MG TABLET PO SCH ×2 (10:47→18:30)
[2020-03-13] MEDS: NORMAL SALINE 1000 ML 1,000 ML IV PRN (10:50)
--- NOTE | 2020-03-13 14:34 | PDOC PROGRESS REPORT ---
Subjective Date:: 03/13/20 Subjective:: No adverse events overnight. No new complaints. Resting comfortably. Reason For Visit: SICKLE CELL PAIN CRISIS Physical Exam Vital Signs: Temp Pulse Resp BP Pulse Ox 98.0 F 82 16 124/84 99 03/13/20 11:53 03/13/20 11:53 03/13/20 14:16 03/13/20 11:53 03/13/20 14:16 Intake & Output 03/12/20 03/13/20 03/14/20 06:59 06:59 06:59 Intake Total 2843 2292 1700 Balance 2843 2292 1700 Weight 80.8 kg 81.6 kg General appearance: PRESENT: no acute distress, cooperative, disheveled, obese Neurological exam: PRESENT: alert, awake, oriented to person, oriented to place, oriented to situation Psychiatric exam: PRESENT: appropriate affect, normal mood Skin exam: PRESENT: dry, warm Results Laboratory Results: 03/12/20 15:10 03/12/20 15:10 03/12/20 03/12/20 15:10 15:10 WBC 8.0 RBC 3.12 L Hgb 11.2 L Hct 31.8 L MCV 102 H MCH 35.9 H MCHC 35.2 RDW 24.9 H Plt Count 460 H Retic Count (auto) 2.64 Sodium 140.0 Potassium 4.1 Chloride 105 Carbon Dioxide 29 Anion Gap 6 BUN 11 Creatinine 0.57 Est GFR ( Amer) > 60 Glucose 103 Calcium 9.7 Impressions: Chest X-Ray 03/03/20 00:00 IMPRESSION: No acute cardiopulmonary process. Assessment and Plan - Diagnosis (1) Sickle cell anemia Qualifiers: Sickle-cell associated disorders: without crisis Qualified Code(s): D57.1 - Sickle-cell disease without crisis Is this a current diagnosis for this admission?: Yes (2) Sickle cell pain crisis Is this a current diagnosis for this admission?: Yes - Plan Summary Summary: Continue IV fluids and pain management per hematology. She received a transfusion of packed red cells. Continue current management. Basal rate on WATER POLLUTION [employer]OL INSPECTOR being weaned. Possible discharge Friday per hematology. - Time Time Spent with patient: Less than 15 minutes Anticipated Discharge Disposition: Home, Self Care Anticipated Discharge Timeframe: within 48 hours
[2020-03-13] MEDS: TRAZODONE HCL 50 MG TABLET PO SCH (22:05)
[2020-03-14] MEDS: DIPHENHYDRAMINE HCL 50 MG/ML VIAL IV PRN ×5 (04:44→23:09)
[2020-03-14] MEDS: HEPARIN SOD (PORCINE) 5,000 UNIT/ML 1 ML VIAL SUBCUT SCH ×3 (04:45→17:59)
[2020-03-14] MEDS: HYDROMORPHONE HCL 30 MG/60 ML RTUINJ IV PRN ×3 (05:46→20:26)
[2020-03-14] MEDS: NORMAL SALINE 1000 ML 1,000 ML IV PRN ×2 (07:30→16:21)
[2020-03-14] MEDS: HYDROXYUREA 500 MG CAPSULE PO SCH ×2 (08:14→21:01)
--- NOTE | 2020-03-14 08:33 | PDOC PROGRESS REPORT ---
Subjective Date:: 03/14/20 Subjective:: Improving, patient hopefully will be ready for discharge by tomorrow. Reason For Visit: SICKLE CELL PAIN CRISIS Physical Exam Vital Signs: Temp Pulse Resp BP Pulse Ox 98.1 F 66 16 110/64 100 03/14/20 08:00 03/14/20 08:00 03/14/20 08:00 03/14/20 08:00 03/14/20 08:00 Intake & Output 03/13/20 03/14/20 03/15/20 06:59 06:59 06:59 Intake Total 2291 2049 Balance 2291 2049 Weight 81.6 kg 76.6 kg General appearance: PRESENT: no acute distress, well-developed, well-nourished Head exam: PRESENT: atraumatic, normocephalic Eye exam: PRESENT: conjunctiva pink, EOMI, PERRLA. ABSENT: scleral icterus Ear exam: PRESENT: normal external ear exam Mouth exam: PRESENT: moist, tongue midline Neck exam: ABSENT: carotid bruit, JVD, lymphadenopathy, thyromegaly Respiratory exam: PRESENT: clear to auscultation samaria. ABSENT: rales, rhonchi, wheezes Cardiovascular exam: PRESENT: RRR. ABSENT: diastolic murmur, rubs, systolic murmur Pulses: PRESENT: normal dorsalis pedis pul Vascular exam: PRESENT: normal capillary refill GI/Abdominal exam: PRESENT: normal bowel sounds, soft. ABSENT: distended, guarding, mass, organolmegaly, rebound, tenderness Rectal exam: PRESENT: deferred Extremities exam: PRESENT: full ROM. ABSENT: calf tenderness, clubbing, pedal edema Neurological exam: PRESENT: alert, awake, oriented to person, oriented to place, oriented to time, oriented to situation, CN II-XII grossly intact. ABSENT: motor sensory deficit Psychiatric exam: PRESENT: appropriate affect, normal mood. ABSENT: homicidal ideation, suicidal ideation Skin exam: PRESENT: dry, intact, warm. ABSENT: cyanosis, rash Results Laboratory Results: 03/12/20 15:10 03/12/20 15:10 Impressions: Chest X-Ray 03/03/20 00:00 IMPRESSION: No acute cardiopulmonary process. 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
[2020-03-14] MEDS: CHOLECALCIFEROL (D3) 1,000 UNIT (25 MCG) TABLET PO SCH (10:44)
[2020-03-14] MEDS: BUSPIRONE HCL 10 MG TABLET PO SCH ×2 (10:44→17:58)
[2020-03-14] MEDS: CITALOPRAM HYDROBROMIDE 20 MG TABLET PO SCH ×2 (10:44→17:58)
[2020-03-14] MEDS: FOLIC ACID 1 MG TABLET PO SCH (10:44)
--- NOTE | 2020-03-14 16:52 | PDOC PROGRESS REPORT ---
Subjective Date:: 03/14/20 Subjective:: No adverse events overnight. No new complaints. Resting comfortably. Reason For Visit: SICKLE CELL PAIN CRISIS Physical Exam Vital Signs: Temp Pulse Resp BP Pulse Ox 98.1 F 78 16 124/68 99 03/14/20 15:13 03/14/20 15:13 03/14/20 15:13 03/14/20 15:13 03/14/20 15:13 Intake & Output 03/13/20 03/14/20 03/15/20 06:59 06:59 06:59 Intake Total 2292 3050 1285 Balance 2292 3050 1285 Weight 81.6 kg 76.6 kg General appearance: PRESENT: no acute distress, cooperative, disheveled, obese Neurological exam: PRESENT: alert, awake, oriented to person, oriented to place, oriented to situation Psychiatric exam: PRESENT: appropriate affect, normal mood Skin exam: PRESENT: dry, warm Results Laboratory Results: 03/12/20 15:10 03/12/20 15:10 Impressions: Chest X-Ray 03/03/20 00:00 IMPRESSION: No acute cardiopulmonary process. Assessment and Plan - Diagnosis (1) Sickle cell anemia Qualifiers: Sickle-cell associated disorders: without crisis Qualified Code(s): D57.1 - Sickle-cell disease without crisis Is this a current diagnosis for this admission?: Yes (2) Sickle cell pain crisis Is this a current diagnosis for this admission?: Yes - Plan Summary Summary: Continue IV fluids and pain management per hematology. She received a transfusion of packed red cells. Continue current management. Basal rate on TALENT DIRECTOR being weaned. Possible discharge Friday per hematology. - Time Time Spent with patient: Less than 15 minutes Anticipated Discharge Disposition: Home, Self Care Anticipated Discharge Timeframe: within 24 hours
[2020-03-14] MEDS: TRAZODONE HCL 50 MG TABLET PO SCH (21:01)
[2020-03-15] MEDS: HEPARIN SOD (PORCINE) 5,000 UNIT/ML 1 ML VIAL SUBCUT SCH ×2 (02:17→09:43)
[2020-03-15] MEDS: HYDROMORPHONE HCL 30 MG/60 ML RTUINJ IV PRN (02:27)
[2020-03-15] MEDS: NORMAL SALINE 1000 ML 1,000 ML IV PRN (02:27)
--- NOTE | 2020-03-15 07:50 | PDOC PROGRESS REPORT ---
Subjective Date:: 03/15/20 Subjective:: Patient doing better this morning, feels ready to leave, discussed that I would be sending her Dilaudid to her pharmacy today, and we will set her up for outpatient IV fluids on Friday. Reason For Visit: SICKLE CELL PAIN CRISIS Physical Exam Vital Signs: Temp Pulse Resp BP Pulse Ox 97.6 F 88 18 101/74 98 03/14/20 23:16 03/14/20 23:16 03/15/20 07:00 03/14/20 23:16 03/15/20 07:00 Intake & Output 03/14/20 03/15/20 03/16/20 06:59 06:59 06:59 Intake Total 3050 2785 Balance 3050 2785 Weight 76.6 kg 78 kg General appearance: PRESENT: no acute distress, well-developed, well-nourished Head exam: PRESENT: atraumatic, normocephalic Eye exam: PRESENT: conjunctiva pink, EOMI, PERRLA. ABSENT: scleral icterus Ear exam: PRESENT: normal external ear exam Mouth exam: PRESENT: moist, tongue midline Neck exam: ABSENT: carotid bruit, JVD, lymphadenopathy, thyromegaly Respiratory exam: PRESENT: clear to auscultation samaria. ABSENT: rales, rhonchi, wheezes Cardiovascular exam: PRESENT: RRR. ABSENT: diastolic murmur, rubs, systolic murmur Pulses: PRESENT: normal dorsalis pedis pul Vascular exam: PRESENT: normal capillary refill GI/Abdominal exam: PRESENT: normal bowel sounds, soft. ABSENT: distended, guarding, mass, organolmegaly, rebound, tenderness Rectal exam: PRESENT: deferred Extremities exam: PRESENT: full ROM. ABSENT: calf tenderness, clubbing, pedal edema Neurological exam: PRESENT: alert, awake, oriented to person, oriented to place, oriented to time, oriented to situation, CN II-XII grossly intact. ABSENT: motor sensory deficit Psychiatric exam: PRESENT: appropriate affect, normal mood. ABSENT: homicidal ideation, suicidal ideation Skin exam: PRESENT: dry, intact, warm. ABSENT: cyanosis, rash Results Laboratory Results: 03/12/20 15:10 03/12/20 15:10 Impressions: Chest X-Ray 03/03/20 00:00 IMPRESSION: No acute cardiopulmonary process. Assessment & Plan - Diagnosis (1) Sickle cell pain crisis Is this a current diagnosis for this admission?: Yes Plan: Improved enough for discharge, nursing will let hospitalist team know to put in discharge order by noon. 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
[2020-03-15 07:59] VITALS: BP 111/56
[2020-03-15] MEDS ORDERED: HYDROMORPHONE HCL INJ/PF 2 MG/ML AMPULE IV PRN (08:57)
[2020-03-15] MEDS: HYDROXYUREA 500 MG CAPSULE PO SCH (09:47)
[2020-03-15] MEDS: BUSPIRONE HCL 10 MG TABLET PO SCH (09:47)
[2020-03-15] MEDS: CHOLECALCIFEROL (D3) 1,000 UNIT (25 MCG) TABLET PO SCH (09:47)
[2020-03-15] MEDS: CITALOPRAM HYDROBROMIDE 20 MG TABLET PO SCH (09:49)
[2020-03-15] MEDS: FOLIC ACID 1 MG TABLET PO SCH (09:49)
[2020-03-15] MEDS: DIPHENHYDRAMINE HCL 50 MG/ML VIAL IV PRN (12:13)
--- NOTE | 2020-03-15 13:07 | PDOC DISCHARGE SUMMARY ---
Impression - Admit/DC Date/PCP Admission Date/Primary Care Provider: 02/28/20 15:03 JOIE MOREIRA MD Discharge Date: 03/15/20 - Assessment Summary: Continue IV fluids and pain management per hematology. She received a t ransfusion of packed red cells. Continue current management. Basal rate on SPECIAL PROGRAMS DIRECTOR being weaned. Possible discharge Friday per hematology. 25-year-old female with history of sickle cell anemia admitted for sickle cell crisis. She was admitted for several times for the same problem before. She was treated with IV fluids and IV pain medications and consultation with Dr. Moreira was requested. Dr. Moreira cleared the patient to go home today and agreed to follow the patient in his office next week. Patient is agreeable for discharge. (1) Sickle cell pain crisis Is this a current diagnosis for this admission?: Yes Plan: Have consulted Hematology; primary plan per them. Patient has been admitted to the medical floor. She is provided supplemental oxygen for comfort and maintain saturations greater than 92%. Continue gentle IV fluids. 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 Continue home dose Hydroxyurea, folic acid, and multivitamin. Continue nonpharmacological interventions for comfort. 03/15/2020-patient is comfortably in the bed communicating well. Expressed desire to go home. Dr. Moreira is in agreement. (2) Sickle cell anemia Qualifiers: Sickle-cell associated disorders: without crisis Qualified Code(s): D57.1 - Sickle-cell disease without crisis Is this a current diagnosis for this admission?: Yes Plan: Hgb 9.7-> 9.7-> 8.2 Primary plan per Hematology. Transfuse for <7 (3) Leukocytosis Qualifiers: Leukocytosis type: unspecified Qualified Code(s): D72.829 - Elevated white blood cell count, unspecified Is this a current diagnosis for this admission?: Yes Plan: Improved; 18.2-> 13.8-> 11.5 Likely acute inflammatory r/t sickle cell crisis pain. Urinalysis is negative UTI. Urine cultures growing <90k colonies. She did report diarrhea to the ED provided; none since arrival. CXR is benign. No indications for antibiotics at this time. (4) Dysuria Is this a current diagnosis for this admission?: Yes Plan: Resolved Urinalysis is negative UTI x2. Urine culture <100k colonies staph haemolyticus. Leukocytosis decreased. Afebrile. Did receive Rocephin x1 per ED provider. No indications for further antibiotic therapy. Encouraged good jann-care/hygeine. (5) Diarrhea Qualifiers: Diarrhea type: unspecified type Qualified Code(s): R19.7 - Diarrhea, unspecified Is this a current diagnosis for this admission?: Yes Plan: Resolved; no further episodes. (6) Tobacco abuse Is this a current diagnosis for this admission?: Yes Plan: Nicotine cessation encouraged. Nicotine replacement therapies provided. - Plan Summary Summary: No changes; primary plan per hematology. - Additional Information Discharge Diet: Cardiac Discharge Activity: Activity As Tolerated Referrals: JOIE MOREIRA MD [Primary Care Provider] - Follow up as needed Home Medications: Hydromorphone HCl [Dilaudid 2 mg Tablet] 4 mg PO Q4HP PRN 01/05/20 Buspirone HCl [Buspar 10 mg Tablet] 5 mg PO BID 02/28/20 Cholecalciferol (Vitamin D3) [Vitamin D3] 25 mcg PO DAILY 02/28/20 Citalopram Hydrobromide [Celexa 20 mg Tablet] 40 mg PO DAILY 02/28/20 Diphenhydramine HCl [Benadryl] 25 mg PO Q6HP PRN 02/28/20 Folic Acid 1 mg PO QAM 02/28/20 Hydroxyurea 500 mg PO QHS 02/28/20 Hydroxyurea [Siklos] 1,000 mg PO QAM 02/28/20 Ibuprofen [Motrin 400 mg Tablet] 400 mg PO Q8 02/28/20 Trazodone HCl [Desyrel 50 mg Tablet] 50 mg PO QHS 02/28/20 History of Present Illiness History of Present Illness: CASSANDRA MIDDLETON is a 25 year old female 25 year old female who is extremely well-known to this service with a history of sickle cell who presents complaining of nausea, vomiting, diarrhea, and back pain since last night. She came to the ER and was found to have elevated white blood cell count, elevated bilirubin, elevated reticulocyte count. She tends to run a little bit of elevated white blood cell count most of the time, and she also tends to run an elevated reticulocyte count and bilirubin as well. When I came into the room she appeared completely comfortable, laying back with the head of the bed elevated, watching TV, eating celine crackers and peanut butter, and drinking Cristina mist. Hospital Course Hospital Course: 25-year-old female with history of sickle cell disease, depression, DVT in the right upper extremity, obesity admitted for sickle cell anemia and crisis. Consultation with Dr. Moreira was requested during the hospital stay. We followed his recommendations. Dr. Moreira called me this morning and advised to discharge the patient and he gave the prescription for Dilaudid to the patient he agreed to see the patient in the office next week. Patient is agreeable for discharge. Physical Exam Vital Signs: Temp Pulse Resp BP Pulse Ox 97.7 F 82 16 111/56 L 99 03/15/20 12:01 03/15/20 12:01 03/15/20 12:01 03/15/20 12:01 03/15/20 12:01 Intake & Output 03/14/20 03/15/20 03/16/20 06:59 06:59 06:59 Intake Total 3050 2785 Balance 3050 2785 Weight 76.6 kg 78 kg General appearance: PRESENT: no acute distress, obese Head exam: PRESENT: atraumatic Eye exam: PRESENT: PERRLA Mouth exam: PRESENT: moist, tongue midline Neck exam: ABSENT: carotid bruit, JVD, lymphadenopathy, thyromegaly Respiratory exam: PRESENT: decreased breath sounds Cardiovascular exam: PRESENT: RRR. ABSENT: diastolic murmur, rubs, systolic murmur GI/Abdominal exam: PRESENT: normal bowel sounds, soft. ABSENT: distended, guarding, mass, organolmegaly, rebound, tenderness Rectal exam: PRESENT: deferred Extremities exam: PRESENT: full ROM. ABSENT: calf tenderness, clubbing, pedal edema Neurological exam: PRESENT: alert, awake, oriented to person, oriented to place, oriented to time, oriented to situation, CN II-XII grossly intact. ABSENT: motor sensory deficit Skin exam: PRESENT: dry, intact, warm. ABSENT: cyanosis, rash Results Laboratory Results: WBC 8.0 10^3/uL (4.0-10.5) 03/12/20 15:10 RBC 3.12 10^6/uL (3.72-5.28) L 03/12/20 15:10 Hgb 11.2 g/dL (12.0-15.5) L 03/12/20 15:10 Hct 31.8 % (36.0-47.0) L 03/12/20 15:10 MCV 102 fl (80-97) H 03/12/20 15:10 MCH 35.9 pg (27.0-33.4) H 03/12/20 15:10 MCHC 35.2 g/dL (32.0-36.0) 03/12/20 15:10 RDW 24.9 % (11.5-14.0) H 03/12/20 15:10 Plt Count 460 10^3/uL (150-450) H 03/12/20 15:10 Lymph % (Auto) Not Reportable 03/06/20 11:14 [place] % (Auto) Not Reportable 03/06/20 11:14 Eos % (Auto) Not Reportable 03/06/20 11:14 Baso % (Auto) Not Reportable 03/06/20 11:14 Reticulocyte # 0.082 10^6/uL (0.028-0.122) 03/12/20 15:10 Absolute Neuts (auto) Not Reportable 03/06/20 11:14 Absolute Lymphs (auto) Not Reportable 03/06/20 11:14 Absolute Monos (auto) Not Reportable 03/06/20 11:14 Absolute Eos (auto) Not Reportable 03/06/20 11:14 Absolute Basos (auto) Not Reportable 03/06/20 11:14 Total Counted 100 03/06/20 11:14 Seg Neutrophils % Not Reportable 03/06/20 11:14 Seg Neuts % (Manual) 65 % (42-78) 03/06/20 11:14 Lymphocytes % (Manual) 21 % (13-45) 03/06/20 11:14 Atypical Lymphs % 3 % (0) 03/06/20 11:14 Monocytes % (Manual) 6 % (3-13) 03/06/20 11:14 Eosinophils % (Manual) 2 % (0-6) 03/06/20 11:14 Basophils % (Manual) 2 % (0-2) 03/06/20 11:14 Metamyelocytes % 1 % (0-1) 03/06/20 11:14 Abs Neuts (Manual) 7.6 10^3/uL (1.7-8.2) 03/06/20 11:14 Abs Lymphs (Manual) 2.8 10^3/uL (0.5-4.7) 03/06/20 11:14 Abs Monocytes (Manual) 0.7 10^3/uL (0.1-1.4) 03/06/20 11:14 Absolute Eos (Manual) 0.2 10^3/uL (0.0-0.6) 03/06/20 11:14 Abs Basophils (Manual) 0.2 10^3/uL (0.0-0.2) 03/06/20 11:14 Nucleated RBCs 26 /100 WBC (0) 03/06/20 11:14 Clumped Platelets PRESENT 03/06/20 11:14 Large Platelets PRESENT 03/03/20 07:54 Platelet Comment ADEQUATE 03/06/20 11:14 Polychromasia 2+ 03/03/20 07:54 Poikilocytosis 2+ 03/06/20 11:14 Basophilic Stippling PRESENT 03/03/20 07:54 Anisocytosis 3+ 03/06/20 11:14 Macrocytosis 2+ 03/03/20 07:54 Pappenheimer Bodies PRESENT 03/03/20 07:54 Sickle Cells 1+ 03/06/20 11:14 Target Cells 1+ 03/06/20 11:14 Tear Drop Cells 1+ 03/03/20 07:54 Ovalocytes 2+ 03/03/20 07:54 Schistocytes SLIGHT 03/03/20 07:54 Retic Count (auto) 2.64 % (0.66-2.85) 03/12/20 15:10 Sodium 140.0 mmol/L (137-145) 03/12/20 15:10 Potassium 4.1 mmol/L (3.6-5.0) 03/12/20 15:10 Chloride 105 mmol/L (98-107) 03/12/20 15:10 Carbon Dioxide 29 mmol/L (22-30) 03/12/20 15:10 Anion Gap 6 (5-19) 03/12/20 15:10 BUN 11 mg/dL (7-20) 03/12/20 15:10 Creatinine 0.57 mg/dL (0.52-1.25) 03/12/20 15:10 Est GFR ( Amer) > 60 (>60) 03/12/20 15:10 Est GFR (MDRD) Non-Af > 60 (>60) 03/12/20 15:10 Glucose 103 mg/dL (75-110) 03/12/20 15:10 Calcium 9.7 mg/dL (8.4-10.2) 03/12/20 15:10 Total Bilirubin 5.7 mg/dL (0.2-1.3) H 03/06/20 11:14 Direct Bilirubin 0.0 mg/dL (0.0-0.4) 03/06/20 11:14 Neonat Total Bilirubin Not Reportable 03/06/20 11:14 Neonat Direct Bilirubin Not Reportable 03/06/20 11:14 Neonat Indirect Bili Not Reportable 03/06/20 11:14 AST 75 U/L (14-36) H 03/06/20 11:14 ALT 70 U/L (<35) H 03/06/20 11:14 Alkaline Phosphatase 104 U/L (38-126) 03/06/20 11:14 Total Protein 6.8 g/dL (6.3-8.2) 03/06/20 11:14 Albumin 3.8 g/dL (3.5-5.0) 03/06/20 11:14 Lipase 102.9 U/L (23-300) 02/27/20 03:39 Serum HCG, Qual NEGATIVE (NEGATIVE) 02/27/20 03:39 Urine Color YELLOW 03/06/20 08:19 Urine Appearance SLIGHTLY-CLOUDY 03/06/20 08:19 Urine pH 7.0 (5.0-9.0) 03/06/20 08:19 Ur Specific [place] 1.009 03/06/20 08:19 Urine Protein NEGATIVE mg/dL (NEGATIVE) 03/06/20 08:19 Urine Glucose (UA) NEGATIVE mg/dL (NEGATIVE) 03/06/20 08:19 Urine Ketones NEGATIVE mg/dL (NEGATIVE) 03/06/20 08:19 Urine Blood NEGATIVE (NEGATIVE) 03/06/20 08:19 Urine Nitrite POSITIVE (NEGATIVE) H 03/06/20 08:19 Urine Bilirubin NEGATIVE (NEGATIVE) 03/06/20 08:19 Urine Urobilinogen 4.0 mg/dL (<2.0) H 03/06/20 08:19 Ur Leukocyte Esterase LARGE (NEGATIVE) H 03/06/20 08:19 Urine WBC (Auto) 14 /HPF 03/06/20 08:19 Urine RBC (Auto) 4 /HPF 03/06/20 08:19 Urine Bacteria (Auto) 2+ /HPF 03/06/20 08:19 Squamous Epi Cells Auto 1 /HPF 03/06/20 08:19 Urine Mucus (Auto) RARE /LPF 02/28/20 12:00 Urine Ascorbic Acid NEGATIVE (NEGATIVE) 03/06/20 08:19 Blood Type O POSITIVE 03/07/20 08:22 Antibody Screen NEGATIVE 03/07/20 08:22 Crossmatch See Detail 03/07/20 08:22 Impressions: Chest X-Ray 03/03/20 00:00 IMPRESSION: No acute cardiopulmonary process. Plan Plan of Treatment: Patient is advised to be compliant with her medications and follow-up with Dr. Moreira next week. Time Spent: Greater than 30 Minutes Stroke Is this a Stroke Patient?: No Acute Heart Failure Is this a Heart Failure Patient?: No
== END 2020-03-15 13:11 | disposition home or self-care (01) | DRG 812 ==
LOC: ER 02:10 → INTOOBSV 06:28 → EH 06:28 → 2N 07:55 → OBSVTOIN 02-28 15:03
PROVIDERS: ADMIT Family Medicine; ATTEND Internal Medicine
PROC: 30233N1 Transfusion of Nonautologous Red Blood Cells into Peripheral Vein, Percutaneous Approach (ICD-10-PCS; principal; 2020-03-07)
DX: D57.00 Hb-SS disease with crisis, unspecified (principal); R30.0 Dysuria; R19.7 Diarrhea, unspecified; F32.9 Major depressive disorder, single episode, unspecified; B95.7 Other staphylococcus as the cause of diseases classified elsewhere; Z79.899 Other long term (current) drug therapy; Z86.718 Personal history of other venous thrombosis and embolism; Z88.6 Allergy status to analgesic agent; Z91.018 Allergy to other foods
CPT/HCPCS: 36415; 36430; 71045; 80048; 80053; 81001; 83690; 84703; 85025; 85027; 85045; 86850; 86900; 86901; 86902; 86920; 87086; 87088; 87186; 96361; 96365; 96375; 96376; 99285; G0378; J0696; J1170; J1200; J1642; J1644; J1940; J2405; J2997; J3490; J7030; P9016

== ENCOUNTER 2020-03-18 14:03 | Emergency (ER) | payer MEDICAID ==
[2020-03-18] MEDS ORDERED: DIPHENHYDRAMINE HCL 50 MG/ML VIAL IV ONE ×2 (14:33→17:00)
[2020-03-18] MEDS ORDERED: NORMAL SALINE 1000 ML 1,000 ML IV ONE ×3 (14:33→19:06)
[2020-03-18] MEDS ORDERED: HYDROMORPHONE HCL INJ/PF 2 MG/ML AMPULE IV ONE ×4 (14:33→19:05)
--- NOTE | 2020-03-18 14:34 | ER Document Report ---
ED Medical Screen (RME) - General Chief Complaint: Low Back Pain Stated Complaint: LOW BACK PAIN Time Seen by Provider: 03/18/20 14:28 Primary Care Provider: JOIE MOREIRA MD [Primary Care Provider] - Follow up as needed Notes: Patient presents complaining of low back pain that started yesterday. Patient denies any fever or urinary symptoms. Patient denies any cough. Patient has a history of sickle cell disease and denies improvement of her symptoms with her usual medications. I have greeted and performed a rapid initial assessment of this patient. A comprehensive ED assessment and evaluation of the patient, analysis of test results and completion of the medical decision making process will be conducted by additional ED providers. TRAVEL OUTSIDE OF THE [place] IN LAST 30 DAYS: No - Related Data Allergies/Adverse Reactions: morphine Allergy (Severe, Verified 02/20/20 11:24) RASH,SWELLING jacob peppers Adverse Reaction (Severe, Uncoded 02/20/20 11:24) throat closes Past Medical History - Social History Family history: Reviewed & Not Pertinent, Other - Pt was adopted. Does not know family history - Past Medical History Cardiac Medical History: Reports: Hx DVT - RUE s/p port placement Denies: Hx Hypercholesterolemia Pulmonary Medical History: Reports: Hx Asthma, Hx Bronchitis, Hx Pneumonia Neurological Medical History: Denies: Hx Parkinson's Disease Endocrine Medical History: Denies: Hx Diabetes Mellitus Type 1, Hx Diabetes Mellitus Type 2 Renal/ Medical History: Denies: Hx Peritoneal Dialysis GI Medical History: Musculoskeltal Medical History: Reports Hx Musculoskeletal Trauma Psychiatric Medical History: Reports: Hx Anxiety, Hx Depression Past Surgical History: Reports: Hx Cholecystectomy - 06/28/2015, Hx Vascular Surgery - port put in December,, Other - Port-A-Cath in right upper chest - Immunizations Immunizations up to date: Yes Hx Diphtheria, Pertussis, Tetanus Vaccination: Yes Physical Exam - Vital signs Vitals: Temp Pulse Resp BP Pulse Ox 98.4 F 94 16 143/115 H 97 03/18/20 14:25 03/18/20 14:25 03/18/20 14:25 03/18/20 14:25 03/18/20 14:25 - Back Back: Tender - Lumbar paraspinal tenderness Course - Vital Signs Vital signs: Temp Pulse Resp BP Pulse Ox 98.4 F 94 16 143/115 H 97 03/18/20 14:25 03/18/20 14:25 03/18/20 14:25 03/18/20 14:25 03/18/20 14:25 Doctor's Discharge - Discharge Referrals: JOIE MOREIRA MD [Primary Care Provider] - Follow up as needed
[2020-03-18 17:42] LABS: ABSOLUTE BASOPHILS # (AUTO) 0.2 10^3/uL (0.0-0.2); ABSOLUTE LYMPHOCYTES (AUTO) 2.4 10^3/uL (0.5-4.7); ABSOLUTE MONOCYTES (AUTO) 1.2 10^3/uL (0.1-1.4); ABSOLUTE NEUT (AUTO) 12.3 10^3/uL (1.7-8.2); ABSOLUTE RETICS # 0.072 10^6/uL (0.028-0.122); BASOPHILS % (AUTO) 1.6 % (0-2); HEMATOCRIT 33.4 % (36.0-47.0); HEMOGLOBIN 11.7 g/dL (12.0-15.5); LYMPHOCYTES % (AUTO) 14.9 % (13-45); MEAN CORPUSCULAR HEMOGLOBIN 35.9 pg (27.0-33.4); MEAN CORPUSCULAR VOLUME 102 fl (80-97); MONOCYTES % (AUTO) 7.3 % (3-13); PLATELET COUNT 646 10^3/uL (150-450); RED BLOOD COUNT 3.26 10^6/uL (3.72-5.28); RED CELL DISTRIBUTION WIDTH 22.9 % (11.5-14.0); RETICULOCYTE COUNT (AUTO) 2.19 % (0.66-2.85); SEGMENTED NEUTROPHILS % (AUTO) 76.2 % (42-78); TOTAL CELLS COUNTED % (AUTO) 100 %; WHITE BLOOD COUNT 16.1 10^3/uL (4.0-10.5)
[2020-03-18 17:49] LABS: APPEARANCE,URINE CLEAR; BILIRUBIN,URINE NEGATIVE (NEGATIVE); COLOR,URINE YELLOW; GLUCOSE, URINE NEGATIVE (NEGATIVE); KETONES,URINE NEGATIVE (NEGATIVE); LEUKOCYTE ESTERASE,URINE TRACE (NEGATIVE); NITRITE,URINE NEGATIVE (NEGATIVE); PROTEIN,URINE NEGATIVE (NEGATIVE); URINE SPECIFIC GRAVITY 1.014; UROBILINOGEN,URINE NEGATIVE mg/dL (<2.0)
[2020-03-18 17:57] LABS: ALBUMIN 4.8 g/dL (3.5-5.0); ALKALINE PHOSPHATASE 101 U/L (38-126); ANION GAP 13 (5-19); ASPARTATE AMINO TRANSFERASE 40 U/L (14-36); BILIRUBIN,DIRECT 0.3 mg/dL (0.0-0.4); BILIRUBIN,TOTAL 4.2 mg/dL (0.2-1.3); BLOOD UREA NITROGEN 11 mg/dL (7-20); CALCIUM 10.2 mg/dL (8.4-10.2); CARBON DIOXIDE 23 mmol/L (22-30); CHLORIDE 104 mmol/L (98-107); GLUCOSE 109 mg/dL (75-110); POTASSIUM 3.6 mmol/L (3.6-5.0); TOTAL PROTEIN 8.9 g/dL (6.3-8.2)
[2020-03-18] MEDS ORDERED: ONDANSETRON HCL INJ/PF 4 MG/2 ML SDV IV ONE ×2 (18:17→19:06)
[2020-03-18] MEDS ORDERED: KETOROLAC TROMETHAMINE INJ/PF 30 MG/1 ML SDV IV ONE (19:06)
--- NOTE | 2020-03-18 19:25 | ER Document Report ---
ED General - General Chief Complaint: Back Pain Stated Complaint: LOW BACK PAIN Time Seen by Provider: 03/18/20 14:28 Primary Care Provider: JOIE MOREIRA MD [Primary Care Provider] - Follow up as needed TRAVEL OUTSIDE OF THE [place] IN LAST 30 DAYS: No - HPI Notes: Patient is a 25-year-old female with a known history of sickle cell anemia who presents to the emergency department for evaluation of lower back pain and "pain all over." She specifically denies fever, cough, shortness of breath, chest pain. She states that the Dilaudid home she is taking is not helping her. She was just discharged from the hospital 3 days ago. She is unsure as to when she is supposed to see her terra cotta setter again. She denies any bowel or bladder incontinence, saddle anesthesia, focal numbness or weakness. - Related Data Allergies/Adverse Reactions: morphine Allergy (Severe, Verified 02/20/20 11:24) RASH,SWELLING jacob peppers Adverse Reaction (Severe, Uncoded 02/20/20 11:24) throat closes Home Medications: Dilaudid, hydroxyurea, folic acid Past Medical History - General Information source: Patient - Social History Smoking Status: Never Smoker Chew tobacco use (# tins/day): No Frequency of alcohol use: None Drug Abuse: None Family History: Reviewed & Not Pertinent, Other - Sickle cell disease and sickle cell trait, asthma - Past Medical History Cardiac Medical History: Reports: Hx DVT - RUE s/p port placement Denies: Hx Hypercholesterolemia Pulmonary Medical History: Reports: Hx Asthma, Hx Bronchitis, Hx Pneumonia Neurological Medical History: Denies: Hx Parkinson's Disease Endocrine Medical History: Denies: Hx Diabetes Mellitus Type 1, Hx Diabetes Mellitus Type 2 Renal/ Medical History: Denies: Hx Peritoneal Dialysis GI Medical History: Musculoskeletal Medical History: Reports Hx Musculoskeletal Trauma Psychiatric Medical History: Reports: Hx Anxiety, Hx Depression Past Surgical History: Reports: Hx Cholecystectomy - 06/28/2015, Hx Vascular Surgery - port put in December,, Other - Port-A-Cath in right upper chest - Immunizations Immunizations up to date: Yes Hx Diphtheria, Pertussis, Tetanus Vaccination: Yes Review of Systems - Review of Systems Constitutional: No symptoms reported EENT: No symptoms reported Cardiovascular: No symptoms reported Respiratory: No symptoms reported Gastrointestinal: No symptoms reported Genitourinary: No symptoms reported Musculoskeletal: See HPI Skin: No symptoms reported Neurological/Psychological: No symptoms reported Physical Exam - Vital signs Vitals: Temp Pulse Resp BP Pulse Ox 98.4 F 94 16 143/115 H 97 03/18/20 14:25 03/18/20 14:25 03/18/20 14:25 03/18/20 14:25 03/18/20 14:25 - Notes Notes: Is a 24-year-old female who appears her stated age in a mild amount of distress. She is rocking back and forth, intermittently tachypneic, moaning in pain. Vital signs reviewed, please refer to chart. Head is normocephalic, atraumatic. Pupils equal round, reactive to light. Neck is supple without meningismus. Heart is regular rate and rhythm. Lungs are clear to auscultation bilaterally. Abdomen is soft, nontender, normoactive bowel sounds throughout. Extremities without cyanosis, clubbing. Posterior calves are nontender. Peripheral pulses are equal. Skin is warm and dry. Patient is awake, alert, neurological exam is nonfocal. Course - Re-evaluation Re-evalutation: 03/18/20 19:25 This is a 25-year-old female who presents to the ER with a pain crisis. She is not having any signs of acute chest syndrome. Her vital signs are unremarkable. Her labs actually show an improved hemoglobin and a normal reticulocyte count. At this point, patient will be hydrated medicated for symptom relief and discharge. She is to follow-up closely with primary care and hematology. She is to return to the ED with worsening. - Vital Signs Vital signs: Temp Pulse Resp BP Pulse Ox 98.5 F 94 16 143/115 H 97 03/18/20 17:28 03/18/20 14:25 03/18/20 14:25 03/18/20 14:25 03/18/20 14:25 - Laboratory Results Result Diagrams: 03/18/20 17:16 03/18/20 17:16 Laboratory Results Interpreted: 03/18/20 03/18/20 03/18/20 17:16 17:16 17:16 WBC 16.1 H RBC 3.26 L Hgb 11.7 L Hct 33.4 L MCV 102 H MCH 35.9 H RDW 22.9 H Plt Count 646 H Absolute Neuts (auto) 12.3 H Total Bilirubin 4.2 H AST 40 H ALT 41 H Total Protein 8.9 H Ur Leukocyte Esterase TRACE H Critical Laboratory Results Reviewed: No Critical Results - Radiology Results Critical Radiology Results Reviewed: No Critical Results Discharge - Discharge Clinical Impression: Acute sickle cell crisis Condition: Stable Disposition: HOME, SELF-CARE Instructions: Sickle Cell Crisis ([facility]) Additional Instructions: Please take your regular medications at home as prescribed. Follow-up closely with your primary care provider and your terra cotta setter. Return to the emergency department if you develop worsening or new concerning symptoms of any sort. Referrals: JOIE MOREIRA MD [Primary Care Provider] - Follow up as needed
[2020-03-18 21:24] VITALS: BP 111/62
== END 2020-03-18 21:23 | disposition home or self-care (01) ==
LOC: ER 14:03
DX: D57.00 Hb-SS disease with crisis, unspecified (principal); M54.5 Low back pain; Z79.891 Long term (current) use of opiate analgesic; Z79.899 Other long term (current) drug therapy; J45.909 Unspecified asthma, uncomplicated; R06.82 Tachypnea, not elsewhere classified
CPT/HCPCS: 36591; 96376; 99284; 96361; 96374; 96375; 36415; 84703; 85025; 85045; 80053; 81001; J1200; J1885; J1170; J2405; J7030; J1642

== ENCOUNTER 2020-03-23 13:48 | Emergency (ER) | payer MEDICAID ==
[2020-03-23] MEDS ORDERED: OXYCODONE-ACETAMINOPHEN 5-325 MG TABLET PO ONE ×2 (14:32→21:05)
--- NOTE | 2020-03-23 14:32 | ER Document Report ---
ED Medical Screen (RME) - General Chief Complaint: Sickle Cell Crisis Stated Complaint: SICKLE CELL CRISIS Time Seen by Provider: 03/23/20 14:29 Primary Care Provider: JOIE MOREIRA MD [Primary Care Provider] - Follow up as needed Mode of Arrival: Ambulatory Information source: Patient Notes: 25-year-old female presented to ED for sickle cell crisis. She states she has having back pain like she normally does when she has a sickle cell crisis. She is presently a resident at [facility] so she does have a [facility] nurse with her during the stay. Get blood work started on oxygen and IV fluids as soon as she gets to her room is alert oriented respirations regular nonlabored speaking in full sentences. She states the pain started late last night early this morning. We will give her a Percocet and start her on oxygen while in the triage. I have greeted and performed a rapid initial assessment of this patient. A comprehensive ED assessment and evaluation of the patient, analysis of test results and completion of medical decision making process will be conducted by an additional ED providers. TRAVEL OUTSIDE OF THE [place] IN LAST 30 DAYS: No - Related Data Allergies/Adverse Reactions: morphine Allergy (Severe, Verified 02/20/20 11:24) RASH,SWELLING jacob peppers Adverse Reaction (Severe, Uncoded 02/20/20 11:24) throat closes Past Medical History - Social History Family history: Reviewed & Not Pertinent, Other - Pt was adopted. Does not know family history - Past Medical History Cardiac Medical History: Reports: Hx DVT - RUE s/p port placement Denies: Hx Hypercholesterolemia Pulmonary Medical History: Reports: Hx Asthma, Hx Bronchitis, Hx Pneumonia Neurological Medical History: Denies: Hx Parkinson's Disease Endocrine Medical History: Denies: Hx Diabetes Mellitus Type 1, Hx Diabetes Mellitus Type 2 Renal/ Medical History: Denies: Hx Peritoneal Dialysis GI Medical History: Musculoskeltal Medical History: Reports Hx Musculoskeletal Trauma Psychiatric Medical History: Reports: Hx Anxiety, Hx Depression Past Surgical History: Reports: Hx Cholecystectomy - 06/28/2015, Hx Vascular Surgery - port put in December,, Other - Port-A-Cath in right upper chest - Immunizations Immunizations up to date: Yes Hx Diphtheria, Pertussis, Tetanus Vaccination: Yes Physical Exam - Vital signs Vitals: Temp Pulse Resp BP Pulse Ox 99.1 F 88 16 127/64 H 97 12/24/20 13:49 03/23/20 13:49 03/23/20 13:49 03/23/20 13:49 03/23/20 13:49 Course - Vital Signs Vital signs: Temp Pulse Resp BP Pulse Ox 99.1 F 88 16 127/64 H 97 03/23/20 13:49 03/23/20 13:49 03/23/20 13:49 03/23/20 13:49 03/23/20 13:49 Doctor's Discharge - Discharge Referrals: JOIE MOREIRA MD [Primary Care Provider] - Follow up as needed
[2020-03-23 16:51] LABS: APPEARANCE,URINE CLEAR; BILIRUBIN,URINE NEGATIVE (NEGATIVE); COLOR,URINE YELLOW; GLUCOSE, URINE NEGATIVE (NEGATIVE); KETONES,URINE NEGATIVE (NEGATIVE); LEUKOCYTE ESTERASE,URINE MODERATE (NEGATIVE); NITRITE,URINE NEGATIVE (NEGATIVE); PROTEIN,URINE NEGATIVE (NEGATIVE); URINE SPECIFIC GRAVITY 1.013
[2020-03-23 17:07] LABS: ABSOLUTE BASOPHILS # (AUTO) 0.3 10^3/uL (0.0-0.2); ABSOLUTE EOSINOPHILS # (AUTO) 0.1 10^3/uL (0.0-0.6); ABSOLUTE LYMPHOCYTES (AUTO) 3.4 10^3/uL (0.5-4.7); ABSOLUTE MONOCYTES (AUTO) 1.4 10^3/uL (0.1-1.4); ABSOLUTE NEUT (AUTO) 8.2 10^3/uL (1.7-8.2); ABSOLUTE RETICS # 0.098 10^6/uL (0.028-0.122); BASOPHILS % (AUTO) 2.1 % (0-2); EOSINOPHILS % (AUTO) 0.5 % (0-6); HEMATOCRIT 28.7 % (36.0-47.0); HEMOGLOBIN 10.3 g/dL (12.0-15.5); LYMPHOCYTES % (AUTO) 25.7 % (13-45); MEAN CORPUSCULAR HEMOGLOBIN 35.6 pg (27.0-33.4); MEAN CORPUSCULAR HGB CONC 35.9 g/dL (32.0-36.0); MEAN CORPUSCULAR VOLUME 99 fl (80-97); MONOCYTES % (AUTO) 10.2 % (3-13); PLATELET COUNT 612 10^3/uL (150-450); RED CELL DISTRIBUTION WIDTH 21.6 % (11.5-14.0); RETICULOCYTE COUNT (AUTO) 3.37 % (0.66-2.85); SEGMENTED NEUTROPHILS % (AUTO) 61.5 % (42-78); TOTAL CELLS COUNTED % (AUTO) 100 %; WHITE BLOOD COUNT 13.3 10^3/uL (4.0-10.5)
[2020-03-23 17:42] LABS: ALBUMIN 4.3 g/dL (3.5-5.0); ALKALINE PHOSPHATASE 82 U/L (38-126); ANION GAP 9 (5-19); ASPARTATE AMINO TRANSFERASE 28 U/L (14-36); BILIRUBIN,DIRECT 0.3 mg/dL (0.0-0.4); BILIRUBIN,TOTAL 3.3 mg/dL (0.2-1.3); BLOOD UREA NITROGEN 6 mg/dL (7-20); CALCIUM 9.1 mg/dL (8.4-10.2); CARBON DIOXIDE 27 mmol/L (22-30); CHLORIDE 108 mmol/L (98-107); GLUCOSE 98 mg/dL (75-110); POTASSIUM 3.6 mmol/L (3.6-5.0); TOTAL PROTEIN 7.7 g/dL (6.3-8.2)
[2020-03-23] MEDS ORDERED: DIPHENHYDRAMINE HCL 50 MG/ML VIAL IV ONE (17:45)
[2020-03-23] MEDS ORDERED: HYDROMORPHONE HCL INJ/PF 2 MG/ML AMPULE IV ONE ×2 (17:45→19:23)
--- NOTE | 2020-03-23 17:56 | ER Document Report ---
ED General - General Chief Complaint: Sickle Cell Crisis Stated Complaint: SICKLE CELL CRISIS Time Seen by Provider: 03/23/20 14:29 Primary Care Provider: JOIE MOREIRA MD [Primary Care Provider] - Follow up as needed Mode of Arrival: Ambulatory Information source: Patient TRAVEL OUTSIDE OF THE [place] IN LAST 30 DAYS: No - HPI Notes: This patient is a 25-year-old female with known well-documented sickle cell disease who comes in complaining of back pain. She says it feels like the start of another sickle cell crisis. She was recently in the hospital discharged on March 11 for sickle cell crisis. She is currently under mental health evaluation at [facility] here in [place]. She states that she has a prescription for Dilaudid tablets which she relinquished to the staff at the mental health facility when she was admitted. When she asked for something for pain today they gave her Tylenol but she was never administered her narcotics. She denies any fever or chills. She denies any shortness of breath. She denies any other changes to her overall health status at this time. - Related Data Allergies/Adverse Reactions: morphine Allergy (Severe, Verified 02/20/20 11:24) RASH,SWELLING jacob peppers Adverse Reaction (Severe, Uncoded 02/20/20 11:24) throat closes Past Medical History - General Information source: Patient - Social History Smoking Status: Unknown if Ever Smoked Family History: Reviewed & Not Pertinent, Other - Sickle cell disease and sickle cell trait, asthma - Medical History Medical History: Other - Past Medical History Cardiac Medical History: Reports: Hx DVT - RUE s/p port placement Denies: Hx Hypercholesterolemia Pulmonary Medical History: Reports: Hx Asthma, Hx Bronchitis, Hx Pneumonia Neurological Medical History: Denies: Hx Parkinson's Disease Endocrine Medical History: Denies: Hx Diabetes Mellitus Type 1, Hx Diabetes Mellitus Type 2 Renal/ Medical History: Denies: Hx Peritoneal Dialysis GI Medical History: Musculoskeletal Medical History: Reports Hx Musculoskeletal Trauma Psychiatric Medical History: Reports: Hx Anxiety, Hx Depression Past Surgical History: Reports: Hx Cholecystectomy - 06/28/2015, Hx Vascular Surgery - port put in December,, Other - Port-A-Cath in right upper chest - Immunizations Immunizations up to date: Yes Hx Diphtheria, Pertussis, Tetanus Vaccination: Yes Review of Systems - Review of Systems Notes: Review of systems is otherwise negative or noncontributory except as noted in the present illness. Physical Exam - Vital signs Vitals: Temp Pulse Resp BP Pulse Ox 99.1 F 88 16 127/64 H 97 03/23/20 13:49 03/23/20 13:49 03/23/20 13:49 03/23/20 13:49 03/23/20 13:49 - Notes Notes: General: This is a well-developed well-nourished very uncomfortable black female in no acute physiologic distress. Vital signs and nursing documentation are reviewed. HEENT: Normocephalic atraumatic. EOMI. PERRLA. ENT exam otherwise normal. Neck: Supple nontender no adenopathy. Chest: Lungs clear to auscultation all [place]. Heart: Regular rate and rhythm no murmur. Abdomen: Soft nontender no mass organomegaly. Extremities: Without clubbing cyanosis edema or deformity. Skin: Warm moist good turgor no rashes. Neurologic: Patient is awake alert oriented x3. Cranial nerves II 12 are intact bilaterally. Strength sensation are within normal limits. Course - Re-evaluation Re-evalutation: 03/24/20 00:22 Patient was treated with standard sickle cell interventions. Please see orders for details. She required multiple doses of narcotics we were able to get her pain under very good control and she seemed to be much more pleasant and animated by the end of her stay. She does not require admission for pain control at this time and is medically stable for discharge back to the [facility] facility. In our discussion she revealed that she has Dilaudid tablets which are prescribed which she says she turned over to the staff at the [facility] facility when she was admitted there. She states she was not given any of that medication today. My treatment recommendation is that she receive her Dilaudid as prescribed as a first-line intervention for her pain before being brought to the hospital. She has well-documented sickle cell disease and adequate narcotic pain control is both indicated and necessary in sickle cell disease. She should follow up with her primary care provider or return to the emergency department as needed if any other concerning symptoms develop. 03/24/20 01:36 - Vital Signs Vital signs: Temp Pulse Resp BP Pulse Ox 98.0 F 88 13 115/77 100 03/24/20 00:01 03/23/20 13:49 03/24/20 00:01 03/24/20 00:01 03/24/20 00:01 - Laboratory Results Result Diagrams: 03/23/20 16:54 03/23/20 16:54 Laboratory Results Interpreted: 03/23/20 03/23/20 03/23/20 16:36 16:54 16:54 WBC 13.3 H RBC 2.90 L Hgb 10.3 L Hct 28.7 L MCV 99 H MCH 35.6 H RDW 21.6 H Plt Count 612 H Baso % (Auto) 2.1 H Absolute Basos (auto) 0.3 H Retic Count (auto) 3.37 H Chloride 108 H BUN 6 L Total Bilirubin 3.3 H Urine Urobilinogen 4.0 H Ur Leukocyte Esterase MODERATE H Critical Laboratory Results Reviewed: No Critical Results - Radiology Results Critical Radiology Results Reviewed: No Critical Results Discharge - Discharge Clinical Impression: Sickle cell pain crisis Condition: Good Disposition: HOME, SELF-CARE Additional Instructions: Continue your current medications as prescribed. Follow-up with your primary care doctor return here if any concerning symptoms develop. Referrals: JOIE MOREIRA MD [Primary Care Provider] - Follow up as needed
[2020-03-23] MEDS: NORMAL SALINE 1000 ML 1,000 ML IV PRN ×2 (18:02→19:35)
[2020-03-23] MEDS: HYDROMORPHONE HCL INJ/PF 2 MG/ML AMPULE IV PRN ×2 (21:13→23:26)
[2020-03-24] MEDS ORDERED: HYDROMORPHONE HCL INJ/PF 2 MG/ML AMPULE IV ONE (00:17)
[2020-03-24 00:55] VITALS: BP 115/77
== END 2020-03-24 01:05 | disposition home or self-care (01) ==
LOC: ER 13:48
DX: D57.00 Hb-SS disease with crisis, unspecified (principal); M54.9 Dorsalgia, unspecified; Z88.6 Allergy status to analgesic agent; Z86.718 Personal history of other venous thrombosis and embolism
CPT/HCPCS: 96376 ×2; 99284; 96361; 96374; 36415; 87086; 84702; 85025; 87088; 85045; 80053; 81001; 87186; J1200; J1170 ×2; J7030; J1642

== ENCOUNTER 2020-03-24 21:31 | Emergency (ER) | payer MEDICAID ==
--- NOTE | 2020-03-24 22:57 | ER Document Report ---
ED Medical Screen (RME) - General Chief Complaint: Sickle Cell Crisis Stated Complaint: SICKLE CELL CRISIS Time Seen by Provider: 03/24/20 22:49 Primary Care Provider: JOIE MOREIRA MD [Primary Care Provider] - Follow up as needed Mode of Arrival: Wheelchair Information source: Patient Notes: HPI; 25-year-old female with multiple recent ER visits for sickle cell flare was brought to emergency room from [facility] this evening complaining of persistent sickle cell flare. Patient was seen in emergency room yesterday was given multiple doses of IV Dilaudid was able to be discharged home. Patient states she has Dilaudid at [facility] but they are refusing to give it to her until I get a doctor's order for it. However she states they have been giving her oxy codone today which is not helping with the pain. She is unsure when the last time was that she received her oxycodone. Complaining of persistent low back pain. No trauma no injury. PE: Alert and oriented x3. Lungs: Clear to auscultation without rales, rhonchi, wheezes. Heart: Regular rate rhythm without murmurs, rubs, gallops. I have greeted and performed a rapid initial assessment of this patient. A comprehensive ED assessment and evaluation of the patient, analysis of test results and completion of the medical decision making process will be conducted by additional ED providers. I have specifically instructed the patient or family members with the patient to immediately return to any nursing staff should anything change in the patient's condition or with their chief complaint. TRAVEL OUTSIDE OF THE [place] IN LAST 30 DAYS: No - Related Data Allergies/Adverse Reactions: morphine Allergy (Severe, Verified 03/24/20 22:47) RASH,SWELLING jacob peppers Adverse Reaction (Severe, Uncoded 02/20/20 11:24) throat closes Home Medications: FOLIC ACID. VIT D. DILAUDID Past Medical History - Social History Frequency of alcohol use: Social Drug Abuse: None Family history: Reviewed & Not Pertinent, Other - Pt was adopted. Does not know family history - Past Medical History Cardiac Medical History: Reports: Hx DVT - RUE s/p port placement Denies: Hx Hypercholesterolemia Pulmonary Medical History: Reports: Hx Asthma, Hx Bronchitis, Hx Pneumonia Neurological Medical History: Denies: Hx Parkinson's Disease Endocrine Medical History: Denies: Hx Diabetes Mellitus Type 1, Hx Diabetes Mellitus Type 2 Renal/ Medical History: Denies: Hx Peritoneal Dialysis GI Medical History: Musculoskeltal Medical History: Reports Hx Musculoskeletal Trauma Psychiatric Medical History: Reports: Hx Anxiety, Hx Depression Past Surgical History: Reports: Hx Cholecystectomy - 06/28/2015, Hx Vascular Surgery - port put in December,, Other - Port-A-Cath in right upper chest - Immunizations Immunizations up to date: Yes Hx Diphtheria, Pertussis, Tetanus Vaccination: Yes Physical Exam - Vital signs Vitals: Temp Pulse Resp BP Pulse Ox 99.1 F 77 16 111/65 97 03/24/20 21:57 03/24/20 21:57 03/24/20 21:57 03/24/20 21:57 03/24/20 21:57 Course - Vital Signs Vital signs: Temp Pulse Resp BP Pulse Ox 99.1 F 77 16 111/65 97 03/24/20 21:57 03/24/20 21:57 03/24/20 21:57 03/24/20 21:57 03/24/20 21:57 Doctor's Discharge - Discharge Referrals: JOIE MOREIRA MD [Primary Care Provider] - Follow up as needed
[2020-03-25 01:14] LABS: ABSOLUTE BASOPHILS # (AUTO) 0.4 10^3/uL (0.0-0.2); ABSOLUTE EOSINOPHILS # (AUTO) 0.2 10^3/uL (0.0-0.6); ABSOLUTE LYMPHOCYTES (AUTO) 5.4 10^3/uL (0.5-4.7); ABSOLUTE NEUT (AUTO) 9.2 10^3/uL (1.7-8.2); ABSOLUTE RETICS # 0.113 10^6/uL (0.028-0.122); BASOPHILS % (AUTO) 2.3 % (0-2); EOSINOPHILS % (AUTO) 1.2 % (0-6); HEMATOCRIT 29.2 % (36.0-47.0); HEMOGLOBIN 10.5 g/dL (12.0-15.5); LYMPHOCYTES % (AUTO) 33.3 % (13-45); MEAN CORPUSCULAR HEMOGLOBIN 36.3 pg (27.0-33.4); MEAN CORPUSCULAR VOLUME 101 fl (80-97); MONOCYTES % (AUTO) 6.3 % (3-13); PLATELET COUNT 587 10^3/uL (150-450); RED BLOOD COUNT 2.89 10^6/uL (3.72-5.28); RED CELL DISTRIBUTION WIDTH 21.2 % (11.5-14.0); RETICULOCYTE COUNT (AUTO) 3.92 % (0.66-2.85); SEGMENTED NEUTROPHILS % (AUTO) 56.9 % (42-78); TOTAL CELLS COUNTED % (AUTO) 100 %; WHITE BLOOD COUNT 16.2 10^3/uL (4.0-10.5)
[2020-03-25] MEDS ORDERED: HYDROMORPHONE HCL INJ/PF 2 MG/ML AMPULE IV ONE ×4 (01:20→03:26)
[2020-03-25] MEDS ORDERED: DIPHENHYDRAMINE HCL 50 MG/ML VIAL IV ONE ×3 (01:20→03:25)
[2020-03-25] MEDS ORDERED: NORMAL SALINE 1000 ML 1,000 ML IV ONE (01:21)
--- NOTE | 2020-03-25 01:27 | ER Document Report ---
ED General - General Chief Complaint: Sickle Cell Crisis Stated Complaint: SICKLE CELL CRISIS Time Seen by Provider: 03/24/20 22:49 Primary Care Provider: JOIE MOREIRA MD [Primary Care Provider] - Follow up as needed Mode of Arrival: Wheelchair TRAVEL OUTSIDE OF THE [place] IN LAST 30 DAYS: No - HPI Context: Chief Complaint: [Generalized body pain, history of sickle cell anemia] [This is a 25-year-old female with a history of sickle cell anemia as well as multiple recent visits to the emergency department for sickle cell pain crises who returns again tonight complaining of generalized body pain that she states is similar to her sickle cell pain flares. Patient was seen in this emergency department yesterday and after being given multiple doses of IV Dilaudid she was able to be discharged back to [facility]. Patient is currently inpatient at [facility] for treatment of "major depression." Patient states that she supposedly has Dilaudid at the facility but is not being given doses of it until the staff is given a doctor's order to do so. Patient also states that the staff is giving her oxycodone for her pain but it does not seem to be helping. Patient denies fever, chills, chest pain, shortness of breath, loss of sense of taste or sense of smell, history of COVID-19 infection, known exposure to Covid positive persons or persons under investigation for COVID-19. ] History obtained from [patient] Symptoms began:[Yesterday] Onset: [Sudden] Timing: [Sudden] Quality: [Sharp] Intensity: [5] Location: [Generalized] Radiation: [Denies] [The pain does not migrate to a new location.] Aggravating factors: Movement Relieving factors: [none] [Denies] SOB [Denies] nausea [Denies] vomiting [Denies] sweats [Denies] fever [Denies] cough [Denies] calf or leg swelling or pain - Related Data Allergies/Adverse Reactions: morphine Allergy (Severe, Verified 03/24/20 22:47) RASH,SWELLING jacob peppers Adverse Reaction (Severe, Uncoded 02/20/20 11:24) throat closes Home Medications: FOLIC ACID. VIT D. DILAUDID Past Medical History - General Information source: Patient - Social History Smoking Status: Former Smoker Frequency of alcohol use: Social Drug Abuse: None Family History: Reviewed & Not Pertinent, Other - Sickle cell disease and sickle cell trait, asthma - Past Medical History Cardiac Medical History: Reports: Hx DVT - RUE s/p port placement Denies: Hx Hypercholesterolemia Pulmonary Medical History: Reports: Hx Asthma, Hx Bronchitis, Hx Pneumonia Neurological Medical History: Denies: Hx Parkinson's Disease Endocrine Medical History: Denies: Hx Diabetes Mellitus Type 1, Hx Diabetes Mellitus Type 2 Renal/ Medical History: Denies: Hx Peritoneal Dialysis GI Medical History: Musculoskeletal Medical History: Reports Hx Musculoskeletal Trauma Psychiatric Medical History: Reports: Hx Anxiety, Hx Depression Past Surgical History: Reports: Hx Cholecystectomy - 06/28/2015, Hx Vascular Surgery - port put in December,, Other - Port-A-Cath in right upper chest - Immunizations Immunizations up to date: Yes Hx Diphtheria, Pertussis, Tetanus Vaccination: Yes Review of Systems - Review of Systems Notes: Review of systems as below unless otherwise stated in HPI. CONSTITUTIONAL [No] fever, [No] chills. EYES [No] eye pain. ENT [No] URI symptoms, [No] sore throat, [No] ear pain. CARDIOVASCULAR [No] chest pain, [No] palpitations, [No] edema. RESPIRATORY [No] Cough, [No] SOB, [No] wheezing. GASTROINTESTINAL [No] abdominal pain, [No] nausea, [No] Diarrhea, [No] Vomiting, [No] co nstipation, [No] melena, [No] rectal bleeding. GENITOURINARY [No] dysuria, [No] urinary frequency, [No] hematuria, [No] urinary urgency, [No] vaginal discharge, [No] vaginal bleeding. MUSCULOSKELETAL Positive back pain, positive generalized body pain SKIN [No] Rash. NEUROLOGIC [No] Headache, [No] recent seizures, [No] paralysis,[No] parathesias. ENDOCRINE [No] polyuria. HEMO/LYMPATIC [No] easy brusing PSYCHIATRIC [No] depression. Physical Exam - Vital signs Vitals: Temp Pulse Resp BP Pulse Ox 99.1 F 77 16 111/65 97 03/24/20 21:57 03/24/20 21:57 03/24/20 21:57 03/24/20 21:57 03/24/20 21:57 - Notes Notes: CONSTITUTIONAL [Vital signs reviewed, Patient appears comfortable, Alert and oriented X 3, Normal stature.] HEAD [Atraumatic, Normocephalic.] EYES [Eyes are normal to inspection, No discharge from eyes, Extraocular muscles intact, Sclera are normal, Conjunctiva are normal.] ENT [External ears normal to inspection, Nose examination normal, Mouth normal to inspection.] NECK [Normal ROM, No jugular venous distention, No meningeal signs, ] RESPIRATORY CHEST [Chest is nontender, Breath sounds normal, No respiratory distress.] CARDIOVASCULAR [RRR, No murmurs, Normal S1 S2, No rub, No gallop.] ABDOMEN [Abdomen is nontender, No pulsatile masses, No other masses, Bowel sounds normal, No distension, No peritoneal signs, No hernias.] BACK [There is no CVA Tenderness, There is no tenderness to palpation, Normal inspection.] UPPER EXTREMITY [Inspection normal, No cyanosis, No clubbing, No edema, LOWER EXTREMITY [Inspection normal, No cyanosis, No clubbing, No edema, No calf tenderness, NEURO [No focal motor deficits, No focal sensory deficits, Speech normal.] SKIN [Skin is warm, Skin is dry, Skin is normal color.] PSYCHIATRIC [Somewhat odd and flat affect. Pt states she is in severe pain but was noted to be smiling, laughing and talking to [employer] escorting her. Course - Re-evaluation Re-evalutation: 03/25/20 03:48 Results of ED MSE discussed with patient. All questions were answered prior to discharge. Emergency signs and symptoms, reasons to return to the emergency department discussed with patient. - Vital Signs Vital signs: Temp Pulse Resp BP Pulse Ox 99.1 F 77 16 111/65 97 03/24/20 21:57 03/24/20 21:57 03/24/20 21:57 03/24/20 21:57 03/24/20 21:57 - Laboratory Results Result Diagrams: 03/25/20 01:00 03/25/20 01:00 Laboratory Results Interpreted: 03/25/20 03/25/20 01:00 01:00 WBC 16.2 H RBC 2.89 L Hgb 10.5 L Hct 29.2 L MCV 101 H MCH 36.3 H RDW 21.2 H Plt Count 587 H Baso % (Auto) 2.3 H Absolute Neuts (auto) 9.2 H Absolute Lymphs (auto) 5.4 H Absolute Basos (auto) 0.4 H Retic Count (auto) 3.92 H Glucose 122 H Total Bilirubin 2.8 H AST 37 H Critical Laboratory Results Reviewed: Yes Attending or Supervising Physician who Reviewed Labs: MASOUD BENEDICT IV Chelsea zhao's laboratory results compared with prior visits. Trend seems grossly similar in terms of hematology and chemistries - Radiology Results Critical Radiology Results Reviewed: No Critical Results Discharge - Discharge Clinical Impression: Acute sickle cell crisis Condition: Stable Disposition: PSYCH HOSP/UNIT Additional Instructions: Return to the Emergency Department without delay if any worse. HOME CARE INSTRUCTIONS & INFORMATION: Thank you for choosing us for your medical needs. We hope you're satisfied with the care you received. After you leave, you must properly care for your problem and, at the same time, observe its progress. Any condition can change. Some illnesses can change rapidly over hours or days. If your condition worsens, return to the Emergency Department or see your physician promptly. ABOUT YOUR X-RAYS AND EKG'S: If you had an EKG or X-rays taken, they have been read by the Emergency Physician. The X-rays and EKG's will also be read by a Radiologist or Meat Hostess within 24 hours. If discrepancies are noted, you will be notified by telephone. Please be certain the ED has a correct telephone number & address where you can be reached. Also, realize that some fractures or abnormalities do not show up on initial X-rays. If your symptoms continue, see your physician. ABOUT YOUR LABORATORY TEST: If you had laboratory tests, the results have been reviewed by the Emergency Physician. Some test results (for example cultures) may not be available for several days. You will be contacted if any test result shows you need additional treatment. Please be certain the ED has a correct telephone number and address where you can be reached. ABOUT YOUR MEDICATIONS: You will receive instructions on how to take your medicine on the prescription label you receive. Additional information may be provided by the Pharmacy. If you have questions afterwards, call the ED for clarification or further instructions. Some prescribed medications may cause drowsiness. Do not perform tasks such as driving a car or operating machinery without consulting your Pharmacist. If you feel you need a refill of pain medication, your condition will need re-evaluation. Please do not call for a refill of any medication. ABOUT YOUR SIGNATURE: Signature of this document acknowledges to followin. Understanding that you received emergency treatment and that you may be released before al medical problems are known or treated. Please be certain the ED has a correct phone number & address where you can be reached. 2. Acknowledgement that you will arrange for follow-up care as recommended. 3. Authorization for the Emergency Physician to provide information to your follow-up Physician in order to maximize your care. AT ANY TIME, IF YOUR SYMPTOMS CHANGE SIGNIFICANTLY OR WORSEN OR YOU DEVELOP NEW SYMPTOMS, RETURN TO THE EMERGENCY DEPARTMENT IMMEDIATELY FOR RE-EVALUATION. OUR GOAL IS TO PROVIDE EXCELLENT MEDICAL CARE! WE HOPE THAT WE HAVE MET YOUR EXPECTATIONS DURING YOUR EMERGENCY DEPARTMENT VISIT AND THAT YOU FEEL YOU HAVE RECEIVED EXCELLENT CARE! Referrals: JOIE MOREIRA MD [Primary Care Provider] - Follow up as needed
[2020-03-25 01:55] LABS: ALBUMIN 4.3 g/dL (3.5-5.0); ALKALINE PHOSPHATASE 82 U/L (38-126); ANION GAP 9 (5-19); ASPARTATE AMINO TRANSFERASE 37 U/L (14-36); BILIRUBIN,DIRECT 0.2 mg/dL (0.0-0.4); BILIRUBIN,TOTAL 2.8 mg/dL (0.2-1.3); BLOOD UREA NITROGEN 7 mg/dL (7-20); CALCIUM 9.4 mg/dL (8.4-10.2); CARBON DIOXIDE 28 mmol/L (22-30); CHLORIDE 105 mmol/L (98-107); GLUCOSE 122 mg/dL (75-110); POTASSIUM 3.6 mmol/L (3.6-5.0); TOTAL PROTEIN 7.9 g/dL (6.3-8.2)
[2020-03-25] MEDS ORDERED: HALOPERIDOL LACTATE INJ 5 MG/1 ML VIAL IM ONE ×2 (02:36→03:26)
[2020-03-25] MEDS ORDERED: KETOROLAC TROMETHAMINE INJ/PF 30 MG/1 ML SDV IV ONE (02:36)
[2020-03-25 05:14] VITALS: BP 115/66
== END 2020-03-25 04:44 ==
LOC: ER 21:31
DX: D57.00 Hb-SS disease with crisis, unspecified (principal); M54.9 Dorsalgia, unspecified; F32.9 Major depressive disorder, single episode, unspecified; J45.909 Unspecified asthma, uncomplicated; Z79.899 Other long term (current) drug therapy; Z87.891 Personal history of nicotine dependence; Z88.6 Allergy status to analgesic agent; Z88.5 Allergy status to narcotic agent
CPT/HCPCS: 96376; 99285; 96372; 96361; 96374; 96375; 36415; 84703; 85025; 85045; 80053; J1200; J1630; J1885; J1170; J7030; J1642

== ENCOUNTER 2020-03-29 15:20 | Emergency (ER) | payer MEDICAID ==
[2020-03-29] MEDS ORDERED: NORMAL SALINE 1000 ML 1,000 ML IV ONE ×2 (16:25→19:45)
[2020-03-29] MEDS ORDERED: HYDROMORPHONE HCL INJ/PF 2 MG/ML AMPULE IV ONE ×3 (16:25→21:14)
--- NOTE | 2020-03-29 16:27 | ER Document Report ---
ED Medical Screen (RME) - General Chief Complaint: Sickle Cell Crisis Stated Complaint: BODY PAIN Time Seen by Provider: 03/29/20 16:23 Primary Care Provider: JOIE MOREIRA MD [Primary Care Provider] - Follow up as needed Notes: Patient presents complaining of low back pain for the past 6 days. Patient has a history of sickle cell disease and suspect she is in pain crisis. Patient denies any cough or cold symptoms. Patient denies any abdominal pain. Patient denies any fever, nausea or vomiting. I have greeted and performed a rapid initial assessment of this patient. A comprehensive ED assessment and evaluation of the patient, analysis of test results and completion of the medical decision making process will be conducted by additional ED providers. TRAVEL OUTSIDE OF THE [place] IN LAST 30 DAYS: No - Related Data Allergies/Adverse Reactions: morphine Allergy (Severe, Verified 03/24/20 22:47) RASH,SWELLING jacob peppers Adverse Reaction (Severe, Uncoded 02/20/20 11:24) throat closes Past Medical History - Social History Family history: Reviewed & Not Pertinent, Other - Pt was adopted. Does not know family history - Past Medical History Cardiac Medical History: Reports: Hx DVT - RUE s/p port placement Denies: Hx Hypercholesterolemia Pulmonary Medical History: Reports: Hx Asthma, Hx Bronchitis, Hx Pneumonia Neurological Medical History: Denies: Hx Parkinson's Disease Endocrine Medical History: Denies: Hx Diabetes Mellitus Type 1, Hx Diabetes Mellitus Type 2 Renal/ Medical History: Denies: Hx Peritoneal Dialysis GI Medical History: Musculoskeltal Medical History: Reports Hx Musculoskeletal Trauma Psychiatric Medical History: Reports: Hx Anxiety, Hx Depression Past Surgical History: Reports: Hx Cholecystectomy - 06/28/2015, Hx Vascular Surgery - port put in December,, Other - Port-A-Cath in right upper chest - Immunizations Immunizations up to date: Yes Hx Diphtheria, Pertussis, Tetanus Vaccination: Yes Physical Exam - Vital signs Vitals: Pulse Resp BP Pulse Ox 110 H 16 137/84 H 100 03/29/20 15:43 03/29/20 15:43 03/29/20 15:43 03/29/20 15:43 - General General appearance: Alert Notes: Lower lumbar paraspinal tenderness Course - Vital Signs Vital signs: Temp Pulse Resp BP Pulse Ox 110 H 16 137/84 H 100 03/29/20 15:43 03/29/20 15:43 03/29/20 15:43 03/29/20 15:43 Doctor's Discharge - Discharge Referrals: JOIE MOREIRA MD [Primary Care Provider] - Follow up as needed
[2020-03-29] MEDS ORDERED: ONDANSETRON HCL INJ/PF 4 MG/2 ML SDV IV ONE ×2 (19:16→21:14)
[2020-03-29] MEDS ORDERED: KETOROLAC TROMETHAMINE INJ/PF 30 MG/1 ML SDV IV ONE (19:16)
--- NOTE | 2020-03-29 19:36 | ER Document Report ---
ED General - General TRAVEL OUTSIDE OF THE [place] IN LAST 30 DAYS: No <SHARI STUBBS - Last Filed: 03/29/20 21:50> <GERARDOMILO - Last Filed: 03/29/20 23:56> - General Chief Complaint: Sickle Cell Crisis Stated Complaint: BODY PAIN Time Seen by Provider: 03/29/20 16:23 Primary Care Provider: JOIE MOREIRA MD [Primary Care Provider] - Follow up as needed - [facility] Notes: Patient is a 24-year-old female, well-known to this provider, who presents emergency department for evaluation of low back pain for the last 6 days. She believes it is her sickle cell. She states that all feels typical. No fevers or chills. No dysuria or hematuria. She denies any chest pain, fevers, cough, shortness of breath. She states her medications at home are not helping. (SHARI STUBBS) - Related Data Allergies/Adverse Reactions: morphine Allergy (Severe, Verified 03/24/20 22:47) RASH,SWELLING haloperidol [From Haldol] Allergy (Verified 03/29/20 19:35) jacob peppers Adverse Reaction (Severe, Uncoded 02/20/20 11:24) throat closes Past Medical History - General Information source: Patient - Social History Smoking Status: Never Smoker Family History: Reviewed & Not Pertinent, Other - Sickle cell disease and sickle cell trait, asthma - Medical History Medical History: Negative - Sickle cell anemia - Past Medical History Cardiac Medical History: Reports: Hx DVT - RUE s/p port placement Denies: Hx Hypercholesterolemia Pulmonary Medical History: Reports: Hx Asthma, Hx Bronchitis, Hx Pneumonia Neurological Medical History: Denies: Hx Parkinson's Disease Endocrine Medical History: Denies: Hx Diabetes Mellitus Type 1, Hx Diabetes Mellitus Type 2 Renal/ Medical History: Denies: Hx Peritoneal Dialysis GI Medical History: Musculoskeletal Medical History: Reports Hx Musculoskeletal Trauma Psychiatric Medical History: Reports: Hx Anxiety, Hx Depression Past Surgical History: Reports: Hx Cholecystectomy - 06/28/2015, Hx Vascular Surgery - port put in December,, Other - Port-A-Cath in right upper chest - Immunizations Immunizations up to date: Yes Hx Diphtheria, Pertussis, Tetanus Vaccination: Yes <SHARI STUBBS - Last Filed: 03/29/20 21:50> Review of Systems - Review of Systems Constitutional: No symptoms reported EENT: No symptoms reported Cardiovascular: No symptoms reported Respiratory: No symptoms reported Gastrointestinal: No symptoms reported Genitourinary: No symptoms reported Musculoskeletal: See HPI Skin: No symptoms reported Neurological/Psychological: No symptoms reported <SHARI STUBBS - Last Filed: 03/29/20 21:50> Physical Exam <SHARI STUBBS - Last Filed: 03/29/20 21:50> - Vital signs Vitals: Pulse Resp BP Pulse Ox 110 H 16 137/84 H 100 03/29/20 15:43 03/29/20 15:43 03/29/20 15:43 03/29/20 15:43 - Notes Notes: There is a 24-year-old female who appears her stated age, no acute distress. She is calmly sitting on the bed, interacts appropriately with examiner. Vital signs reviewed, please refer to chart. Head is normocephalic, atraumatic. Pupils equal round, reactive to light. Neck is supple without meningismus. Heart is regular rate and rhythm. Lungs are clear to auscultation bilaterally. Abdomen is soft, nontender, normoactive bowel sounds throughout. Examination of the spine yields no midline tenderness or step-off. She has paraspinal musculature tenderness noted from about T12 down to the SI joints bilaterally with mild associated spasm. No overlying skin changes. Extremities without cyanosis, clubbing. Posterior calves are nontender. Peripheral pulses are equal. Skin is warm and dry. Patient is awake, alert, neurological exam is nonfocal. (SHARI STUBBS Jaime) Course - Laboratory Results Result Diagrams: 03/29/20 19:25 03/29/20 19:25 <SHARI STUBBS - Last Filed: 03/29/20 21:50> - Laboratory Results Result Diagrams: 03/29/20 19:25 03/29/20 19:25 Critical Laboratory Results Reviewed: No Critical Results - Radiology Results Critical Radiology Results Reviewed: No Critical Results <MILO CARRILLO - Last Filed: 03/29/20 23:56> - Re-evaluation Re-evalutation: 03/29/20 19:35 Patient presents to the emergency department for evaluation of low back pain. This is typical of her sickle cell crisis pain. She has no signs of a vaso- occlusive crisis, no signs of acute chest syndrome. As of yet she has refused her temperature to be taken. I explained that this is part of the basic evalua tion of the patient and I cannot treat her without a full set of vital signs. Pending for allowing us to take her temperature, the patient will be medicated with Dilaudid, Toradol, Zofran, fluids. She is currently stable. 03/29/20 21:15 Patient's laboratory investigation show mildly elevated reticulocyte count, but otherwise no concerning abnormalities beyond her baseline. She states she still in pain. The patient is sitting comfortably, twisted in the bed, talking to her significant other. I will give her 1 more dose of pain medication. At that point she needs to decide whether or not she requires admission for pain control, but at this time I do not believe that is likely. 03/29/20 21:50 Patient still awaiting second pain medication dose, department has become busy with more critical patients. I suspect patient will be discharged home after the administration of further Dilaudid with close follow-up with her health and safety consultant. Discharge papers will be printed with anticipation of her discharge. (SHARI STUBBS) 03/29/20 23:55 Received patient in signout, pending second dose of Dilaudid with discharge home following. I wanted to check on patient as it has been over an hour since her last Dilaudid administration. She is resting comfortably in bed, using her cell phone and talking to her significant other. I discussed the plan is to discharge home with very close follow-up with hematology. Patient began to state insult towards this hospital and medical staff. Patient is appropriate and stable for discharge home at this time. (MILO CARRILLO) - Vital Signs Vital signs: Temp Pulse Resp BP Pulse Ox 98.0 F 110 H 16 137/84 H 100 03/29/20 19:58 03/29/20 15:43 03/29/20 15:43 03/29/20 15:43 03/29/20 15:43 - Laboratory Results Laboratory Results Interpreted: 03/29/20 03/29/20 03/29/20 19:25 19:25 19:25 WBC 12.9 H RBC 2.75 L Hgb 10.1 L Hct 27.7 L MCV 101 H MCH 36.7 H MCHC 36.4 H RDW 21.3 H Plt Count 456 H Baso % (Auto) 2.4 H Absolute Basos (auto) 0.3 H Retic Count (auto) 3.45 H BUN 4 L Creatinine 0.48 L Total Bilirubin 2.7 H Ur Leukocyte Esterase SMALL H Discharge <SHARI STUBBS Jaime - Last Filed: 03/29/20 21:50> <MILO CARRILLO - Last Filed: 03/29/20 23:56> - Discharge Clinical Impression: Acute sickle cell crisis Condition: Stable Disposition: HOME, SELF-CARE Instructions: Sickle Cell Crisis ([facility]) Additional Instructions: Rest, stay well-hydrated, take your regular medications at home as prescribed. Follow-up closely with your health and safety consultant. Return to the emergency department for worsening or new concerning symptoms of any sort. Referrals: JOIE MOREIRA MD [Primary Care Provider] - Follow up as needed
[2020-03-29 19:58] LABS: APPEARANCE,URINE SLIGHTLY-CLOUDY; BILIRUBIN,URINE NEGATIVE (NEGATIVE); COLOR,URINE YELLOW; GLUCOSE, URINE NEGATIVE (NEGATIVE); KETONES,URINE NEGATIVE (NEGATIVE); LEUKOCYTE ESTERASE,URINE SMALL (NEGATIVE); NITRITE,URINE NEGATIVE (NEGATIVE); PROTEIN,URINE NEGATIVE (NEGATIVE); URINE SPECIFIC GRAVITY 1.012; UROBILINOGEN,URINE NEGATIVE mg/dL (<2.0)
[2020-03-29 20:05] LABS: ABSOLUTE BASOPHILS # (AUTO) 0.3 10^3/uL (0.0-0.2); ABSOLUTE EOSINOPHILS # (AUTO) 0.2 10^3/uL (0.0-0.6); ABSOLUTE LYMPHOCYTES (AUTO) 4.7 10^3/uL (0.5-4.7); ABSOLUTE MONOCYTES (AUTO) 1.2 10^3/uL (0.1-1.4); ABSOLUTE NEUT (AUTO) 6.6 10^3/uL (1.7-8.2); ABSOLUTE RETICS # 0.095 10^6/uL (0.028-0.122); BASOPHILS % (AUTO) 2.4 % (0-2); EOSINOPHILS % (AUTO) 1.5 % (0-6); HEMATOCRIT 27.7 % (36.0-47.0); HEMOGLOBIN 10.1 g/dL (12.0-15.5); LYMPHOCYTES % (AUTO) 36.1 % (13-45); MEAN CORPUSCULAR HEMOGLOBIN 36.7 pg (27.0-33.4); MEAN CORPUSCULAR HGB CONC 36.4 g/dL (32.0-36.0); MEAN CORPUSCULAR VOLUME 101 fl (80-97); PLATELET COUNT 456 10^3/uL (150-450); RED BLOOD COUNT 2.75 10^6/uL (3.72-5.28); RED CELL DISTRIBUTION WIDTH 21.3 % (11.5-14.0); RETICULOCYTE COUNT (AUTO) 3.45 % (0.66-2.85); TOTAL CELLS COUNTED % (AUTO) 100 %; WHITE BLOOD COUNT 12.9 10^3/uL (4.0-10.5)
[2020-03-29 20:11] LABS: ALBUMIN 3.9 g/dL (3.5-5.0); ALKALINE PHOSPHATASE 102 U/L (38-126); ANION GAP 5 (5-19); ASPARTATE AMINO TRANSFERASE 32 U/L (14-36); BILIRUBIN,TOTAL 2.7 mg/dL (0.2-1.3); BLOOD UREA NITROGEN 4 mg/dL (7-20); CALCIUM 9.1 mg/dL (8.4-10.2); CARBON DIOXIDE 29 mmol/L (22-30); CHLORIDE 105 mmol/L (98-107); GLUCOSE 103 mg/dL (75-110); POTASSIUM 4.2 mmol/L (3.6-5.0)
[2020-03-29] MEDS ORDERED: DIPHENHYDRAMINE HCL 50 MG/ML VIAL IV ONE (20:14)
[2020-03-29 20:38] LABS: ANISOCYTOSIS 3+; POLYCHROMASIA SLIGHT
[2020-03-29 20:39] LABS: PLATELET COMMENT ADEQUATE; SICKLE RED CELLS SLIGHT; TARGET CELLS 1+
[2020-03-30 00:19] VITALS: BP 126/88
== END 2020-03-30 00:21 | disposition home or self-care (01) ==
LOC: ER 15:20
DX: D57.00 Hb-SS disease with crisis, unspecified (principal); M79.10 Myalgia, unspecified site; Z86.718 Personal history of other venous thrombosis and embolism; Z90.49 Acquired absence of other specified parts of digestive tract
CPT/HCPCS: 96376; 99284; 96361; 96374; 96375; 36415; 84703; 85025; 85045; 80053; 81001; J1200; J1885; J1170; J2405; J7030; J1642

== ENCOUNTER 2020-03-31 15:01 | Emergency (ER) | payer MEDICAID ==
--- NOTE | 2020-03-31 16:45 | ER Document Report ---
ED Medical Screen (RME) - General Chief Complaint: Sickle Cell Crisis Stated Complaint: SICKLE CELL CRISIS Time Seen by Provider: 03/31/20 16:36 Primary Care Provider: JOIE MOREIRA MD [Primary Care Provider] - Follow up as needed Notes: Patient is a 25-year-old female, well-known to this emergency department who presents to the emergency department with a sickle cell crisis. States that the pain is in her back and the sides of her chest. States that she took her pain medicine just prior to coming to the emergency department. Exam: Patient appears to be in pain. I have greeted and performed a rapid initial assessment of this patient. A comprehensive ED assessment and evaluation of the patient, analysis of test results and completion of medical decision making process will be conducted by an additional ED providers. TRAVEL OUTSIDE OF THE [place] IN LAST 30 DAYS: No - Related Data Allergies/Adverse Reactions: morphine Allergy (Severe, Verified 03/24/20 22:47) RASH,SWELLING haloperidol [From Haldol] Allergy (Verified 03/29/20 19:35) jacob peppers Adverse Reaction (Severe, Uncoded 02/20/20 11:24) throat closes Past Medical History - Social History Family history: Reviewed & Not Pertinent, Other - Pt was adopted. Does not know family history - Past Medical History Cardiac Medical History: Reports: Hx DVT - RUE s/p port placement Denies: Hx Hypercholesterolemia Pulmonary Medical History: Reports: Hx Asthma, Hx Bronchitis, Hx Pneumonia Neurological Medical History: Denies: Hx Parkinson's Disease Endocrine Medical History: Denies: Hx Diabetes Mellitus Type 1, Hx Diabetes Mellitus Type 2 Renal/ Medical History: Denies: Hx Peritoneal Dialysis GI Medical History: Musculoskeltal Medical History: Reports Hx Musculoskeletal Trauma Psychiatric Medical History: Reports: Hx Anxiety, Hx Depression Past Surgical History: Reports: Hx Cholecystectomy - 06/28/2015, Hx Vascular Surgery - port put in December,, Other - Port-A-Cath in right upper chest - Immunizations Immunizations up to date: Yes Hx Diphtheria, Pertussis, Tetanus Vaccination: Yes Physical Exam - Vital signs Vitals: Temp Pulse Resp BP Pulse Ox 98.8 F 77 23 H 127/70 H 96 03/31/20 15:06 03/31/20 15:06 03/31/20 15:06 03/31/20 15:06 03/31/20 15:06 Course - Vital Signs Vital signs: Temp Pulse Resp BP Pulse Ox 98.8 F 77 23 H 127/70 H 96 03/31/20 15:06 03/31/20 15:06 03/31/20 15:06 03/31/20 15:06 03/31/20 15:06 Doctor's Discharge - Discharge Referrals: JOIE MOREIRA MD [Primary Care Provider] - Follow up as needed
[2020-03-31] MEDS ORDERED: HYDROMORPHONE HCL INJ/PF 2 MG/ML AMPULE IV ONE ×3 (16:46→20:48)
[2020-03-31] MEDS ORDERED: DIPHENHYDRAMINE HCL 50 MG/ML VIAL IV ONE ×2 (16:46→19:45)
[2020-03-31] MEDS ORDERED: NORMAL SALINE 1000 ML 1,000 ML IV ONE ×3 (16:46→20:49)
[2020-03-31] MEDS ORDERED: ONDANSETRON HCL INJ/PF 4 MG/2 ML SDV IV ONE ×3 (16:46→20:48)
--- NOTE | 2020-03-31 17:07 | RADIOLOGY REPORT (SQ) ---
EXAM DESCRIPTION: CHEST 2 VIEWS IMAGES COMPLETED DATE/TIME: 03/31/2020 1:58 pm REASON FOR STUDY: sickle cell crisis; chest wall pain COMPARISON: June 2019 EXAM PARAMETERS: NUMBER OF VIEWS: two views TECHNIQUE: Digital Frontal and Lateral radiographic views of the chest acquired. RADIATION DOSE: NA LIMITATIONS: none FINDINGS: LUNGS AND PLEURA: No opacities, masses or pneumothorax. No pleural effusion. MEDIASTINUM AND HILAR STRUCTURES: No masses or contour abnormalities. HEART AND VASCULAR STRUCTURES: Heart normal size. No evidence for failure. BONES: No acute findings. HARDWARE: Right MediPort catheter is unchanged. OTHER: No other significant finding. IMPRESSION: No acute radiographic abnormality. TECHNICAL DOCUMENTATION: JOB ID: [id number] 2010 [employer]- All Rights Reserved Reading location - IP/workstation name: [email or web address]
[2020-03-31 20:09] LABS: ABSOLUTE BASOPHILS # (AUTO) 0.1 10^3/uL (0.0-0.2); ABSOLUTE EOSINOPHILS # (AUTO) 0.1 10^3/uL (0.0-0.6); ABSOLUTE LYMPHOCYTES (AUTO) 1.8 10^3/uL (0.5-4.7); ABSOLUTE MONOCYTES (AUTO) 0.8 10^3/uL (0.1-1.4); ABSOLUTE NEUT (AUTO) 9.4 10^3/uL (1.7-8.2); ABSOLUTE RETICS # 0.095 10^6/uL (0.028-0.122); BASOPHILS % (AUTO) 1.1 % (0-2); EOSINOPHILS % (AUTO) 0.5 % (0-6); HEMATOCRIT 27.5 % (36.0-47.0); LYMPHOCYTES % (AUTO) 14.7 % (13-45); MEAN CORPUSCULAR HEMOGLOBIN 36.3 pg (27.0-33.4); MEAN CORPUSCULAR HGB CONC 36.4 g/dL (32.0-36.0); MEAN CORPUSCULAR VOLUME 100 fl (80-97); MONOCYTES % (AUTO) 6.4 % (3-13); PLATELET COUNT 416 10^3/uL (150-450); RED BLOOD COUNT 2.75 10^6/uL (3.72-5.28); RED CELL DISTRIBUTION WIDTH 21.4 % (11.5-14.0); RETICULOCYTE COUNT (AUTO) 3.44 % (0.66-2.85); SEGMENTED NEUTROPHILS % (AUTO) 77.3 % (42-78); TOTAL CELLS COUNTED % (AUTO) 100 %; WHITE BLOOD COUNT 12.1 10^3/uL (4.0-10.5)
[2020-03-31 20:28] LABS: ALKALINE PHOSPHATASE 81 U/L (38-126); ANION GAP 6 (5-19); ASPARTATE AMINO TRANSFERASE 39 U/L (14-36); BILIRUBIN,TOTAL 4.1 mg/dL (0.2-1.3); BLOOD UREA NITROGEN 3 mg/dL (7-20); CALCIUM 9.4 mg/dL (8.4-10.2); CARBON DIOXIDE 28 mmol/L (22-30); CHLORIDE 106 mmol/L (98-107); GLUCOSE 116 mg/dL (75-110); TOTAL PROTEIN 7.2 g/dL (6.3-8.2)
--- NOTE | 2020-03-31 20:55 | ER Document Report ---
ED General Pain - General Chief Complaint: Sickle Cell Crisis Stated Complaint: SICKLE CELL CRISIS Time Seen by Provider: 03/31/20 16:36 Primary Care Provider: JOIE MOREIRA MD [Primary Care Provider] - Follow up in 3-5 days Mode of Arrival: Wheelchair Information source: Patient Notes: 25-year-old female presented to ED for sickle cell crisis. She states she is having pain in her back which a week does when she has a sickle cell episode. She has had 1 dose of Dilaudid and took her medicine before coming to the emergency room. She states she is in a 5 out of 5 pain right minute. She is moving around crying in pain. I have applied warm packs to her back. I have given her a second dose of Dilaudid and Zofran. I have ordered O2 2 L as well as a second liter of fluids to be transfused. We will recheck on her and require. She is alert oriented she is crying in pain at this time. Constitutional: Negative for fever. HENT: Negative for sore throat. Eyes: Negative for visual changes. Cardiovascular: Positive for sickle cell type chest pain Respiratory: Negative for shortness of breath. Gastrointestinal: Negative for abdominal pain, vomiting or diarrhea. Genitourinary: Negative for dysuria. Musculoskeletal: Severe back pain at this time. She states this is her normal sickle cell pain. She states she also has some chest pain but it is the same that she always has with sickle cell. Skin: Negative for rash. Neurological: Negative for headaches, weakness or numbness. 10 point ROS negative except as marked above and in HPI. VITAL SIGNS: Within normal limits. GENERAL: Patient is tearful for her chest and back pain that she gets from sickle cell. HEAD: Normal with no signs of head trauma. EYES: PERRLA, EOMI, conjunctiva normal, no discharge. EARS: Hearing grossly intact. NOSE: Normal. THROAT: Oropharynx is normal. NECK: Normal range of motion, no tenderness, supple, no lymphadenopathy, No adenopathy, no JVD. CHEST: Clear breath sounds bilaterally. No wheezes, rales, or rhonchi. CARDIAC: Regular rate and rhythm. S1 and S2, without murmurs, gallops, or rubs. VASCULAR: No Edema. Peripheral pulses normal and equal in all extremities. ABDOMEN: Normal and soft with no tenderness, no masses or pulsatile masses. GASTROINTESTINAL: Bowel sounds normal GENITOURINARY: Normal, No tenderness LYMPATHTIC: No lymphadenopathy noted. MUSCULOSKELETAL: Good range of motion of all major joints. Extremities without clubbing, cyanosis or edema. Patient has tenderness to bilateral lower back. NEUROLOGICAL: Alert and oriented x 3. No focal sensory or strength deficits. Speech normal. Follows commands appropriately. PSYCHIATRIC: Tearful and crying due to the pain in her back and chest. She states it is her normal sickle cell pain. SKIN: Normal appearance with no rashes or lesions. TRAVEL OUTSIDE OF THE [place] IN LAST 30 DAYS: No - HPI Onset: Other - This is her chronic sickle cell pain Onset/Duration: Worse Quality of pain: Sharp, Throbbing Severity: Severe Pain Level: 5 Context: Chronic problem - Sickle cell Typical of prior episodes of painful crisis: Yes Genotype: SC Exacerbated by: Movement Relieved by: Denies Similar symptoms previously: Yes Recently seen / treated by doctor: Yes - Related Data Allergies/Adverse Reactions: morphine Allergy (Severe, Verified 03/31/20 18:51) RASH,SWELLING haloperidol [From Haldol] Allergy (Verified 03/31/20 18:51) jacob peppers Adverse Reaction (Severe, Uncoded 03/31/20 18:51) throat closes Home Medications: Hydroxavier, Folic acid, Vit D, lexapro, dalaudid Past Medical History - General Information source: Patient - Social History Smoking Status: Never Smoker Chew tobacco use (# tins/day): No Frequency of alcohol use: Social Drug Abuse: None Lives with: Family Family History: Reviewed & Not Pertinent, Other - Sickle cell disease and sickle cell trait, asthma Patient has homicidal ideation: No - Past Medical History Cardiac Medical History: Reports: Hx DVT - RUE s/p port placement Pulmonary Medical History: Reports: Hx Asthma, Hx Bronchitis, Hx Pneumonia EENT Medical History: Reports: None Neurological Medical History: Reports: None Endocrine Medical History: Reports: None Renal/ Medical History: Reports: None Malignancy Medical History: Reports: None GI Medical History: Reports: None Musculoskeletal Medical History: Reports Hx Musculoskeletal Trauma Skin Medical History: Reports None Psychiatric Medical History: Reports: Hx Anxiety, Hx Depression Traumatic Medical History: Reports: None Infectious Medical History: Reports: None Past Surgical History: Reports: Hx Cholecystectomy - 06/28/2015, Hx Vascular Agudelo rgery - port put in December,, Other - Port-A-Cath in right upper chest - Immunizations Immunizations up to date: Yes Hx Diphtheria, Pertussis, Tetanus Vaccination: Yes Review of Systems - Review of Systems Constitutional: No symptoms reported EENT: No symptoms reported Cardiovascular: Other - Normal sickle cell pain Respiratory: No symptoms reported Gastrointestinal: No symptoms reported Genitourinary: No symptoms reported Female Genitourinary: No symptoms reported Musculoskeletal: Back pain, Muscle pain Skin: No symptoms reported Hematologic/Lymphatic: No symptoms reported Neurological/Psychological: No symptoms reported Physical Exam - Vital signs Vitals: Temp Pulse Resp BP Pulse Ox 98.8 F 77 23 H 127/70 H 96 03/31/20 15:06 03/31/20 15:06 03/31/20 15:06 03/31/20 15:06 03/31/20 15:06 Course - Re-evaluation Re-evalutation: 04/01/20 09:33 Patient did receive multiple doses of Dilaudid as well as multiple liters of fluids and she was started on O2 2 L nasal cannula for her sickle cell pain. I did call Dr. Russ to consult as patient stated she wanted to be admitted. While I was waiting for a return call from Dr. Russ she became very agitated and stated if we were not going to give her any more medicine that she would rather just go home. I did give her discharge instructions for her sickle cell and gave her instructions on her IV fluids and her pain medicine and that she needed to follow-up with her primary care doctor. Patient was discharged home with instructions to follow-up. - Vital Signs Vital signs: Temp Pulse Resp BP Pulse Ox 98.6 F 81 18 97/62 L 10 L 03/31/20 23:00 03/31/20 23:00 03/31/20 23:00 03/31/20 23:00 03/31/20 23:00 - Laboratory Results Result Diagrams: 03/31/20 19:33 03/31/20 19:33 Laboratory Results Interpreted: 03/31/20 03/31/20 19:33 19:33 WBC 12.1 H RBC 2.75 L Hgb 10.0 L Hct 27.5 L MCV 100 H MCH 36.3 H MCHC 36.4 H RDW 21.4 H Absolute Neuts (auto) 9.4 H Retic Count (auto) 3.44 H BUN 3 L Creatinine 0.45 L Glucose 116 H Total Bilirubin 4.1 H AST 39 H Critical Laboratory Results Reviewed: No Critical Results - Radiology Results Critical Radiology Results Reviewed: No Critical Results Discharge - Discharge Clinical Impression: Acute sickle cell crisis Condition: Stable Disposition: HOME, SELF-CARE Additional Instructions: Sickle Cell Crisis You have "sickle cell crisis." Sickle cell disease is caused by abnormal hemoglobin. This hemoglobin can deform red blood cells into a sickle shape. These abnormal blood cells can block blood vessels. This causes the pain of sickle cell crisis. Sickle cell crisis can occur any time. But attacks are more likely with acute infection, dehydration, or altitude change. A crisis usually causes pain in the legs, back, abdomen, and chest. Sometimes the pain may ease and return later. The usual treatment is oxygen, pain medication, IV fluids, and treatment of infection. Attacks may take a couple of days to resolve. Return if the pain becomes more severe, or if there are new symptoms. Intravenous (IV) Fluids As part of your care today, you received intravenous (IV) fluids. IV fluids are administered to patients who are dehydrated or to those who have certain chemical (electrolyte) abnormalities that need correcting. Diphenhydramine The use of diphenhydramine (Benadryl) has been recommended to control allergic symptoms. The 25 mg strength is available over- the-counter, as well as the elixir. This antihistamine is used for many symptoms. It's useful for itching, watering eyes and nose, allergic swelling, hives, and insect stings. The medication can be repeated four times daily. Age Elixir (12.5 mg/tsp) 25 mg pill 1 yr 1/4 tsp 2-3 yr 1/2 tsp 4-8 yr 1 tsp 9-14 yr 2 tsp one tab adult 1-2 tabs Antihistamines may cause drowsiness, especially with the first dose. Do not operate machinery or drive while under the effects of the medication. Do not combine the medication with alcohol, or with any other medication without talking to your doctor. PAIN MEDICATION INJECTION: You have received an injection of a pain medication. You should experience significant pain relief within 45 minutes. If this medication is a narcotic, it will impair your judgement, slow your reaction time and make you sleepy (as well as relieve your pain). Narcotics also can cause nausea. You should not drive, work with machinery, or perform any task requiring mental alertness until all effects of the medication are gone -- six to eight hours. Do not take any alcohol, or sedatives, and do not take any other medication without checking with your physician. FOLLOW-UP CARE: If you have been referred to a physician for follow-up care, call the physicians office for an appointment as you were instructed or within the next two days. If you experience worsening or a significant change in your symptoms, notify the physician immediately or return to the Emergency Department at any time for re-evaluation. Referrals: JOIE MOREIRA MD [Primary Care Provider] - Follow up in 3-5 days
[2020-03-31 23:41] VITALS: BP 97/62
[2020-04-01] MEDS ORDERED: HYDROMORPHONE HCL INJ/PF 2 MG/ML AMPULE IV ONE
[2020-04-01] MEDS ORDERED: NORMAL SALINE 1000 ML 1,000 ML IV ONE (00:04)
== END 2020-04-01 02:30 | disposition home or self-care (01) ==
LOC: ER 15:01
DX: D57.00 Hb-SS disease with crisis, unspecified (principal); Z86.718 Personal history of other venous thrombosis and embolism
CPT/HCPCS: 36591; 96376 ×2; 99284; 96361 ×2; 96374; 96375; 36415; 84703; 85025; 85045; 80053; 71046; J1200; J1170 ×2; J2405; J7030 ×2; J1642